=== PATIENT | female | born 1950 | race Caucasian/White ===

== ENCOUNTER 2022-12-20 11:14 | Emergency (ER) | payer MEDICARE, BC, SELFPAY ==
[2022-12-20 11:31] VITALS: BP 120/97; PULSE 96; RESP 18; TEMP 36.8; O2SAT 99; BMI 31.5
--- NOTE | 2022-12-20 11:55 | ED_ITS ---
HPI - Head Injury General Chief complaint: Head Injury Stated complaint: HEAD INJURY/FALL Time Seen by Provider: 12/20/22 11:54 Source: patient Mode of arrival: walk-in Limitations: no limitations History of Present Illness HPI Narrative: this patient's here for evaluation of hyperventilation. She said she went to see her [facility] doctor to get ultrasound testing on her dog who may be in a terminal condition. She says she's not slept for several nights taking care of her pet. She feels exhausted. While she is trying to help her dog this morning she fell forward struck the left frontal area. She has some discomfort in her neck and minor discomfort in the left brow area. Is a said she went to see her back to get lab results and she started hyperventilating and they suggested that she go to the hospital. Related Data Home Medications Medication Instructions Recorded Confirmed Lactobacillus acidophilus 10 100 mmu cells PO DAILY 12/20/22 12/20/22 billion cell capsule (Probacap) amlodipine 10 mg tablet 10 mg PO QDAY 12/20/22 12/20/22 aspirin 81 mg tablet,delayed 81 mg PO DAILY 12/20/22 12/20/22 release (Adult Aspirin Regimen) cetirizine 10 mg tablet (24Hour 10 mg PO DAILY PRN allergy symptoms 12/20/22 12/20/22 Allergy) cyanocobalamin (vitamin B-12) PO DAILY 12/20/22 folic acid 1 mg tablet 1 mg PO DAILY 12/20/22 12/20/22 furosemide 20 mg tablet 20 mg PO DAILY 12/20/22 12/20/22 gabapentin 600 mg tablet 600 mg PO BID 12/20/22 12/20/22 levothyroxine 200 mcg tablet 200 mcg PO DAILY 12/20/22 12/20/22 omeprazole 40 mg capsule,delayed 40 mg PO DAILY 12/20/22 12/20/22 release potassium chloride 20 mEq 20 meq PO DAILY 12/20/22 12/20/22 tablet,extended release(part/cryst) (Klor-Con M) red beet root 250 mg-sour burt tab PO DAILY 12/20/22 extract 0.5 mg chewable tablet tramadol 50 mg tablet 100 mg PO Q12H PRN pain 12/20/22 12/20/22 Allergies Allergy/AdvReac Type Severity Reaction Status Date / Time ciprofloxacin [From Cipro ] AdvReac Intermediate Verified 12/20/22 11:34 levofloxacin AdvReac Intermediate Verified 12/20/22 11:47 metronidazole [From Flagyl] AdvReac Intermediate Verified 12/20/22 11:34 vancomycin AdvReac Intermediate Verified 12/20/22 11:47 PFSH FOR[facility] Social History Smoking status: Current every day smoker Exam Narrative Exam Narrative: patient is awake alert good historian she's emotionally distraught because of the thought of her pet dog. he calmed down very quickly. Her vital signs are noted. On clinical examination HEENT she has a minor abrasion of the left brow with no actual hematoma. She has no tenderness to palpation of the cervical spine to palpation but she does have some discomfort when she rotates her head. She has no radiculopathy or neurological symptoms to the upper extremities or the lower limbs. She on cranial nerve examination is normal with no focal deficits. There is no nystagmus. The upper torso and trunk show no contusions abrasions or injury to the shoulder or the upper limbs. Heart sounds normal no arrhythmia or bradycardia. Heart sounds normal with no murmur. Abdomen is soft and supple. Lower extremities are benign with no new injury. Constitutional Vital Signs, click to edit/add: Last Vital Signs Temp 98.2 F 12/20/22 11:31 Pulse 96 H 12/20/22 11:31 Resp 18 12/20/22 11:31 BP 120/97 H 12/20/22 11:31 Pulse Ox 99 12/20/22 11:31 O2 Del Method Room Air 12/20/22 11:31 Course Vital Signs Vital signs: Vital Signs Temperature 98.2 F 12/20/22 11:31 Pulse Rate 96 H 12/20/22 11:31 Respiratory Rate 18 12/20/22 11:31 Blood Pressure 120/97 H 12/20/22 11:31 Pulse Oximetry 99 12/20/22 11:31 Oxygen Delivery Method Room Air 12/20/22 11:31 Temperature 98.2 F 12/20/22 11:31 Pulse Rate 96 H 12/20/22 11:31 Respiratory Rate 18 12/20/22 11:31 Blood Pressure 120/97 H 12/20/22 11:31 Pulse Oximetry 99 12/20/22 11:31 Oxygen Delivery Method Room Air 12/20/22 11:31 MDM - Head Injury MDM Narrative Medical decision making narrative: because the fall and the abrasion and neck discomfort CT imaging was done, there are chronic changes noted in both studies but there is no acute findings or evidence of an emergency medical condition. Discharge Plan Discharge Chief Complaint: Head Injury Clinical Impression: Closed head injury, Cervical sprain Patient Disposition: Home, Self-Care Time of Disposition Decision: 13:33 Prescriptions / Home Meds: No Action amlodipine 10 mg tablet 10 mg PO QDAY furosemide 20 mg tablet 20 mg PO DAILY gabapentin 600 mg tablet 600 mg PO BID levothyroxine 200 mcg tablet 200 mcg PO DAILY Patient Comments: monday through monday only omeprazole 40 mg capsule,delayed release(DR/EC) 40 mg PO DAILY potassium chloride [Klor-Con M20] 20 mEq tablet,ER particles/crystals 20 meq PO DAILY tramadol 50 mg tablet 100 mg PO Q12H PRN (Reason: pain) cetirizine [24Hour Allergy] 10 mg tablet 10 mg PO DAILY PRN (Reason: allergy symptoms) aspirin [Adult Aspirin Regimen] 81 mg tablet,delayed release (DR/EC) 81 mg PO DAILY folic acid 1 mg tablet 1 mg PO DAILY cyanocobalamin (vitamin B-12) [Vitamin B-12] PO DAILY Probacap 10 billion cell capsule 100 mmu cells PO DAILY red beet root-sour burt ext 250-0.5 mg tablet,chewable PO DAILY Patient Comments: beet chews 1-2 a day Additional Instructions: placed to the area/may have Tylenol,, follow-up with primary care doctor or return here for any change in symptoms Stand Alone Forms: Portal Instructions Referrals: MONIKA LEHMAN [Primary Care Provider] - 1 week
--- NOTE | 2022-12-20 11:55 | CT_ITS ---
[address] [address] Patient Name: DIANELYS WOMACK MRN: [id number] date: 1950 Sex: F Assigned Patient Location: ER Current Patient Location: ER Accession/Order Number: [id number] Exam Date: 12/20/2022 12:38 Report Date: 12/20/2022 13:18 At the request of: MARIA INES ESCALANTE Procedure: CT head/brain wo con CT cervical spine CLINICAL: Fall. Patient hit head without loss of consciousness. Abrasions to left eyebrow. TECHNIQUE: Contiguous transaxial images obtained from skullbase through cervical spine without administration of intravenous contrast. Coronal and sagittal reformations were obtained. Dose reduction: mA and/or kV are were adjusted by automated exposure control software based upon patients height and weight. FINDINGS: There is osteopenia of the cervical spine. There is no prevertebral soft tissue swelling or acute cervical spine fracture. There is mild to moderate degenerative disc disease of the cervical spine with small posterior disc-osteophyte complexes, most pronounced at C6-7. There is multilevel and bilateral uncovertebral joint osteoarthritis, most prominent from C3-4 and C6-7. There is also multilevel and bilateral facet joint osteoarthritis, most pronounced at C4-5 on the right. Uncovertebral and facet joint osteoarthritis contribute to neural foraminal narrowing. There is thoracic aortic and carotid artery atherosclerosis. CT/CT head/brain wo con IMPRESSION: 1. No acute cervical spine fracture. 2. Mild to moderate degenerative disc disease of the cervical spine with small posterior disc ossify complexes that are most pronounced at C6-7. There is associated uncovertebral and facet joint osteoarthritis that contribute to neural foraminal narrowing. 3. Bilateral carotid artery atherosclerosis. CT head without contrast CLINICAL: Fall. Patient hit head without loss of consciousness. Abrasions to left eyebrow. TECHNIQUE: Contiguous transaxial images were obtained from skull base to vertex without administration of intravenous contrast. Dose reduction: mA and/or kV are were adjusted by automated exposure control software based upon patients height and weight. FINDINGS: Comparison made to CT head dated 12/29/2020. There is no focal scalp soft tissue swelling or acute calvarial fracture. The visualized globes and orbits are grossly normal. Visualized paranasal sinuses are clear. Bilateral mastoid air cells are clear. The ventricles and sulci are prominent bilaterally. There is periventricular and deep subcortical white matter low-attenuation consistent with small vessel ischemic disease. There is an old left thalamic lacunar infarct. There are old bilateral basal ganglia lacunar infarcts. There is no intraparenchymal hemorrhage, extraaxial fluid collection, mass lesion, or acute large territory ischemia by noncontrast CT. There is intracranial atherosclerosis. IMPRESSION: 1. No acute intracranial hemorrhage or acute large territory ischemia by noncontrast CT. 2. Cerebral atrophy and chronic small vessel ischemic disease with old lacunar infarcts as described. 3. Intracranial atherosclerosis. If the patient has a focal neurologic deficit or there is clinical suspicion for acute cerebrovascular accident, brain MRI would be recommended for further evaluation. Electronically authenticated by: JESSIKA WATSON Date: 12/20/2022 13:18
--- NOTE | 2022-12-20 11:55 | CT_ITS ---
[address] [address] Patient Name: DIANELYS WOMACK MRN: [id number] date: 1950 Sex: F Assigned Patient Location: ER Current Patient Location: ER Accession/Order Number: [id number] Exam Date: 12/20/2022 12:38 Report Date: 12/20/2022 13:18 At the request of: MARIA INES ESCALANTE Procedure: CT cervical spine wo con CT cervical spine CLINICAL: Fall. Patient hit head without loss of consciousness. Abrasions to left eyebrow. TECHNIQUE: Contiguous transaxial images obtained from skullbase through cervical spine without administration of intravenous contrast. Coronal and sagittal reformations were obtained. Dose reduction: mA and/or kV are were adjusted by automated exposure control software based upon patients height and weight. FINDINGS: There is osteopenia of the cervical spine. There is no prevertebral soft tissue swelling or acute cervical spine fracture. There is mild to moderate degenerative disc disease of the cervical spine with small posterior disc-osteophyte complexes, most pronounced at C6-7. There is multilevel and bilateral uncovertebral joint osteoarthritis, most prominent from C3-4 and C6-7. There is also multilevel and bilateral facet joint osteoarthritis, most pronounced at C4-5 on the right. Uncovertebral and facet joint osteoarthritis contribute to neural foraminal narrowing. There is thoracic aortic and carotid artery atherosclerosis. CT/CT cervical spine wo con IMPRESSION: 1. No acute cervical spine fracture. 2. Mild to moderate degenerative disc disease of the cervical spine with small posterior disc ossify complexes that are most pronounced at C6-7. There is associated uncovertebral and facet joint osteoarthritis that contribute to neural foraminal narrowing. 3. Bilateral carotid artery atherosclerosis. CT head without contrast CLINICAL: Fall. Patient hit head without loss of consciousness. Abrasions to left eyebrow. TECHNIQUE: Contiguous transaxial images were obtained from skull base to vertex without administration of intravenous contrast. Dose reduction: mA and/or kV are were adjusted by automated exposure control software based upon patients height and weight. FINDINGS: Comparison made to CT head dated 12/29/2020. There is no focal scalp soft tissue swelling or acute calvarial fracture. The visualized globes and orbits are grossly normal. Visualized paranasal sinuses are clear. Bilateral mastoid air cells are clear. The ventricles and sulci are prominent bilaterally. There is periventricular and deep subcortical white matter low-attenuation consistent with small vessel ischemic disease. There is an old left thalamic lacunar infarct. There are old bilateral basal ganglia lacunar infarcts. There is no intraparenchymal hemorrhage, extraaxial fluid collection, mass lesion, or acute large territory ischemia by noncontrast CT. There is intracranial atherosclerosis. IMPRESSION: 1. No acute intracranial hemorrhage or acute large territory ischemia by noncontrast CT. 2. Cerebral atrophy and chronic small vessel ischemic disease with old lacunar infarcts as described. 3. Intracranial atherosclerosis. If the patient has a focal neurologic deficit or there is clinical suspicion for acute cerebrovascular accident, brain MRI would be recommended for further evaluation. Electronically authenticated by: JESSIKA WATSON Date: 12/20/2022 13:18
== END 2022-12-20 13:38 | disposition home or self-care (01) ==
PROVIDERS: Emergency Provider Emergency Medicine Emergency Medical Services; PCP Family Medicine
DX: S09.8XXA Other specified injuries of head, initial encounter (principal); S13.9XXA Sprain of joints and ligaments of unspecified parts of neck, initial encounter; W19.XXXA Unspecified fall, initial encounter; Z79.82 Long term (current) use of aspirin; Z79.899 Other long term (current) drug therapy; Z79.890 Hormone replacement therapy; F17.210 Nicotine dependence, cigarettes, uncomplicated
CPT/HCPCS: 70450; 72125; 99284

== ENCOUNTER 2023-01-31 11:16 | Outpatient (OUT) | payer MEDICARE, BC, SELFPAY ==
--- NOTE | 2023-01-31 11:45 | XR_ITS ---
The [address] [address] Patient Name: DIANELYS WOMACK MRN: [id number] date: 1950 Sex: F Assigned Patient Location: [facility] Current Patient Location: Accession/Order Number: [id number] Exam Date: 01/31/2023 11:58 Report Date: 02/01/2023 08:07 At the request of: AMAN ANDRES Procedure: XR lumbar spine 6V w bending PROCEDURE: XR lumbar spine 6V w bending DATE: 01/31/2023 10:58 AM [employer] COMPARISONS: CT abdomen and pelvis 03/23/2022 CLINICAL INDICATION: 72 years Female Lumbar Pain M54.5 FINDINGS: There is diffuse bone demineralization. There is no evidence of fractures. There is multilevel intervertebral disc space degenerative changes most prominent L2-L3. There is moderate mid and lower lumbar spine facet degenerative changes. There is no evidence of subluxation. Specifically, there is no evidence of dynamic subluxation noted on lateral flexion and extension views. As noted on previous CT, there is evidence of fusiform abdominal aortic aneurysm. Please see previous CT from 03/23/2022. XR/XR lumbar spine 6V w bending IMPRESSION: 1. Bone demineralization 2. Mild to moderate degenerative spondylosis stable from 03/23/2022 3. No evidence of dynamic subluxation on these images 4. Fusiform abdominal aortic aneurysm. Electronically authenticated by: ZOIE GOMEZ Date: 02/01/2023 08:07
== END 2023-01-31 11:17 | disposition home or self-care (01) ==
LOC: RAD 11:20
PROVIDERS: PCP Family Medicine; Visit Provider Psychiatry & Neurology Neurology
DX: M54.50 Low back pain, unspecified (principal)
CPT/HCPCS: 72114

== ENCOUNTER 2023-01-31 11:24 | Outpatient (OUT) | payer MEDICARE, BC, SELFPAY ==
[2023-01-31 12:29] LABS: Anion Gap 9.8; BUN Creatinine Ratio 19.8; Calcium 9.3 mg/dL (8.5-10.1); Carbon Dioxide 31.3 mmol/L (21.0-32.0); Chloride 103 mmol/L (98-107); Estimated GFR (African America >60 (>=60); Estimated GFR (Non-African Ame 54 (>=60); Glucose 94 mg/dL (74-106); Potassium 3.1 mmol/L (3.5-5.1); Sodium 141 mmol/L (136-145)
== END 2023-01-31 11:25 | disposition home or self-care (01) ==
LOC: LAB 11:25
PROVIDERS: PCP Family Medicine; Visit Provider Internal Medicine
DX: I10 Essential (primary) hypertension (principal)
CPT/HCPCS: 36415; 80048

== ENCOUNTER 2023-03-15 08:46 | Outpatient (OUT) | payer MEDICARE, BC, SELFPAY ==
--- OUTSIDE RECORDS SUMMARY | 2023-03-15 08:50 | XMS_ITS | CCD ---
Author Name Unknown Address [address] [place] [address] Organization [facility] Care Team Providers Care Senior Loss Control Specialist Name Role Phone Monika Lehman Unavailable Unavailable Unavailable MD Monika Lehman Primary Care Provider [phone] MD Nick Acosta Attending Provider [phone] MD Daniel Ma Attending Provider Nick Acosta Unavailable Monika Lehman Primary Care Provider Aman Quiroz MD Unavailable Monika Lehman Primary Care Provider Aman Quiroz MD Unavailable MD Monika Lehman Primary Care Provider MD Chucho Saldaña Emergency Provider Monika Lehman Primary Care Unavailable Chucho Saldaña Attending Unavailable Chucho Saldaña Admitting Unavailable Monika Lehman Primary Care Unavailable Daniel Ma Attending Unavailable Daniel Ma Admitting Unavailable Nick Acosta Attending Unavailable Nick Acosta Admitting Unavailable Monika Lehman Primary Care Unavailable Monika Lehman Primary Care Provider Aman Quiroz MD Unavailable DR MONIKA LHEMAN Primary Care Unavailable FOREST, DR TESS Valente Attending Unavailable FOREST, DR TESS Valente Admitting Unavailable MARANDA OSEGUERA Unavailable FALLON, DR FRANK Primary Care Unavailable HEMMELSISA, DR RONDA Washington Attending Unavailable HEMMER, DR RONDA Washington Admitting Unavailable ZIEBER, DR NATALIE Meza Consulting Unavailable HEMMER, DR RONDA Washington Consulting Unavailable FALLON, DR FRANK Primary Care Unavailable FALLON, DR FRANK Consulting Unavailable FALLON, DR FRANK Attending Unavailable FALLON, DR FRANK Admitting Unavailable FALLON, DR FRANK Primary Care Unavailable BURT, CARMEN Attending Unavailable BURT, CARMEN Admitting Unavailable BURT, CARMEN Consulting Unavailable FILIPPONE, DELISA Consulting Unavailable Piotr, Bubba Romero Attending Wanda Saldaña, Ms. Seema Romero Referring Unavai lable Fallon[facility] Unavaila ble Charmaine, Daniel Attending Unavailable Charmaine, Daniel Referring Unavailable [place], [facility] Unavaila ble Charmaine, Daniel Attending Unavailable Charmaine, Daniel Referring Unavailable [place], [facility] Unavaila ble Piotr, Ms. Seema Romero Attending Wanda Saldaña, Ms. Seema Romero Referring Unavai lable Fallon, [facility] Unavaila ble [place] , [facility] GORGUN, I FEI Attending Unavailable [facility] Unavailable TAZ TEJEDA Referring Unavailable NIKO NIETO Attending Unavailab le [facility] Care Unavailable [place] [facility] Referring Un[facility] Unavailable GORGUN, I FEI Admitting Unavailable GORGUN, I FEI Attending Unavailable TAZ TEJEDA Referring Unavailable [facility] Unavailable TAZ TEJEDA Referring Unavailable PRECIOUS ROGERS Attending Unavailable [facility] Unavailable MELODY ROSADO Attending Unavailable [facility] Unavailable TAZ TEJEDA Referring Unavailable Debbi Casanova Attending [facility] Unavailable MELODY ROSADO Attending Unavailable FALLON, RUGEN MABALAY Primary Care Unavailable GORGUN, I FEI Referring Unavailable GORGUN, I FEI Referring Unavailable FALLON, RUGEN TOMASAY Primary Care Unavailable GORGUN, I FEI Referring Unavailable FALLON, RUGEN TOMASAY Primary Care Unavailable GORGUN, I FEI Referring Unavailable FALLON, RUGEN JASONALAY Primary Care Unavailable Monika Lehman MD Primary Care Provider Monika Lehman MD Primary Care Provider ELINOR RAMAN Attending Unavailable FALLON, JUANEN MARIN Primary Care Unavailable DANIEL MA Attending Unavailable FALLON, JUANEN TOMASAY Primary Care Unavailable ALEAH MEYER Attending Unavailable AMAN QUIROZ Referring Unavailable ALEAH MEYER Attending Unavailable AMAN QUIROZ Referring Unavailable ALEAH MEYER Attending Unavailable AMAN QUIROZ Referring Unavailable AAMN QUIROZ Attending Unavailable MONIKA LEHMAN Attending Unavailable FALLONMONIKA Mitchell M Attending Unavailable ALEAH MEYER Attending Unavailable AMAN QUIROZ Referring Unavailable Allergies Allergy Classification Reported Allergen(s) Allergy Type Date of Onset Reaction(s) Facility (20 sources) Ciprofloxacin; Translations: [ciprofloxacin] Drug Allergy 1 Unknown, Other [facility] (20 sources) metroNIDAZOLE; Translations: [Flagyl] Drug Allergy 7 Unknown, Other [facility] (11 sources) Penicillins; Translations: [Penicillins] Allergy to drug (finding) [address] [facility] [place] [facility] (4 sources) metroNIDAZOLE; Translations: [metronidazole] Drug Allergy 7 Numbness [facility] (20 sources) Vancomycin; Translations: [vancomycin] Drug Allergy 2 [facility] (1 source) Ciprofloxacin Drug Allergy 2 [facility] Repository (20 sources) levoFLOXacin; Translations: [LEVOFLOXACIN] Drug Allergy [address] [facility] (20 sources) Penicillins Drug Allergy 6 Unknown, Other: See Comments, Other [facility] (20 sources) Seasonal allergy; Translations: [SEASONAL ALLERGIES] Allergy to substance [address] [facility] (20 sources) Soy protein; Translations: [soy] Drug Allergy [address] [facility] (1 source) Amoxicillin / Clavulanate Drug Allergy 6 [facility] Rep[facility] (1 source) Ciprofloxacin Drug Allergy 7 [facility] (1 source) levoFLOXacin Drug Allergy 6 [facility] (1 source) metroNIDAZOLE Drug Allergy 7 [facility] (1 source) Misc-Food; Translations: [Misc-Food] Food allergy (disorder) 6 [facility] Rep[facility] Medications Current Medications Medication Drug Class(es) Dates Sig (Normalized) Sig (Original) ALPRAZolam 1 mg oral tablet (20 sources) Benzodiazepine Start: 11-17-2021 take 1 mg by mouth once daily Alprazolam Active 1 MG PO Daily November 17, 2021 12:00am Start: 07-21-2021 take 1 tablet by dickson th twice daily ALPRAZolam 1 MG Oral Tablet TAKE 1 TABLET BY MOUTH TWICE A DAY FOR 30 DAYS Quantity: 60 Refills: 0 Ordered: 21-Jul-2021 DO Start : 21-Jul-2021 Complete take 1 tablet by dickson th once daily ALPRAZolam XR (Xanax XR) 1 mg 24 hr tablet Take 1 tablet (1 mg) by mouth once daily. 0 Active take 1 tablet by dickson th twice daily ALPRAZolam ER 1 MG Oral Tablet Extended Release 24 Hour one tablet BID Quantity: 0 Refills: 0 Ordered: 20-Jul-2021 DO Active Comment on above: Take 1 mg by mouth a s needed. aspirin 81 mg delayed release oral tablet (2 sources) Platelet Aggregation Inhibitor, Nonsteroidal Anti-inflammatory Drug take 1 tablet by mouth once daily aspirin 81 mg EC tablet Take 1 tablet (81 mg) by mouth once daily. 0 Active b complex vitamins (Vitamins B Complex) capsule (2 sources) take 1 capsule by mouth once daily b complex vitamins (Vitamins B Complex) capsule Take 1 capsule by mouth once daily. 0 Active bisacodyl 5 mg delayed release oral tablet (4 sources) Stimulant Laxative Start: 02-24-19 23 End: 02-25-19 23 Bisacodyl (DULCOLAX) 5 mg tab Use as directed for Miralax / Gatorade Bowel Prep Kit 4 tablet 0 02/24/2022 02/25/2022 Active Comment on above: Use as directed for Miralax / Gatorade Bowel Prep Kit Centrum Silver 50+Women - (2 sources) Centrum Silver 50+Women - as directed Orally Active cetirizine hydrochloride 10 mg oral tablet (20 sources) Histamine-1 Receptor Antagonist take 1 tablet by mouth every twenty-four hours as needed cetirizine (ZyrTEC) 10 mg tablet Take 1 tablet (10 mg) by mouth once daily as needed. 0 Active Comment on above: Take by mouth as nee ded. chlorthalidone 25 mg oral tablet (2 sources) Thiazide-like Diuretic take 1 tablet by mouth every twelve hours Chlorthalidone 25 MG 1 tablet in the morning with food Orally bid Active docusate sodium 100 mg oral tablet (11 sources) take 1 tablet by mouth twice daily as needed docusate sodium (Colace) 100 mg tablet Take 1 tablet (100 mg) by mouth 2 times a day as needed. 0 Active take 1 tablet by mouth once antonio y Docusate Sodium 100 MG Oral Tablet Take 1 tablet daily Quantity: 0 Refills: 0 Ordered: 03-May-2021 DO Active furosemide 20 mg oral tablet (8 sources) Loop Diuretic Start: 11-17-2021 take 20 mg by mouth once daily Furosemide Active 20 MG PO Daily November 17, 2021 12:00am Gatorade Sports Drink (4 sources) Start: 02-24-2022 End: 02-25-2022 Gatorade Sports Drink Use as directed for Miralax / Gatorade Bowel Prep Kit 0 02/24/2022 02/25/2022 Active Comment on above: Use as directed for Miralax / Gatorade Bowel Prep Kit omeprazole 40 mg delayed release oral capsule (20 sources) Proton Pump Inhibitor Start: 11-17-2021 take 40 mg by mouth once daily Omeprazole Active 40 MG PO Daily November 17, 2021 12:00am take 40 mg by mouth once daily O MEPRAZOLE ORAL Take 40 mg by mouth once daily. 0 Active Comment on above: Take 40 mg by mouth once daily. polyethylene glycol 3350 99200 mg powder for oral solution (4 sources) Osmotic Laxative Start: 3 End: polyethylene glycol 3350 (MIRALAX, GLYCOLAX) 17 gram/dose powder Use as directed for Miralax / Gatorade Bowel Prep Kit 238 g 0 02/24/2022 02/25/2022 Active Comment on above: Use as directed for Miralax / Gatorade Bowel Prep Kit microencapsulated potassium chloride 20 meq extended release oral tablet (20 sources) Start: 2 take 20 mEq by mouth once daily Potassium Chloride Active 20 MEQ PO Daily November 17, 2021 12:00am Start: 10-07-2021 KLOR-CON M20 2 0 mEq tablet Take 20 mEq by mouth twice daily. 0 10/07/2021 Active take 1 tablet by dickson th once daily potassium chloride CR 20 mEq ER tablet Take 1 tablet (20 mEq) by mouth once daily. Do not crush or chew. 0 Active take 1 tablet by dickson th once daily Potassium Chloride Rose ER 20 MEQ Oral Tablet Extended Release TAKE 1 TABLET DAILY. Quantity: 0 Refills: 0 Ordered: 03-May-2021 DO Active Comment on above: Take 20 mEq by mouth twice daily. Completed/Discontinued Medications Medication Drug Class(es) Dates Sig (Normalized) Sig (Original) amLODIPine 5 mg oral tablet (20 sources) Dihydropyridine Calcium Channel Barry Start: 05-03-2021 take 1 tablet by mouth once daily amLODIPine Besylate 10 MG Oral Tablet TAKE 1 TABLET DAILY. Quantity: 90 Refills: 3 Ordered: 20-Sep-2022 Daniel Ma MD Start : 03-May-2021 Active new start Start: 05-03-2021 take 1 tablet by dickson th once daily amLODIPine (NORVASC) 5 mg tablet Take 5 mg by mouth once daily. 0 10/27/2021 Active amLODIPine Besyl ate Active Comment on above: Take 5 mg by mouth o nce daily. Astelin 137 MCG/SPRAY (2 sources) take 1 puff(s) nasal route twice daily Astelin 137 MCG/SPRAY 1 puff in each nostril Nasally Twice a day Not-Taking bifidobacterium animalis [id number] unt / lactobacillus acidophilus [id number] unt oral capsule (3 sources) Probiotic CAPS T TESFAYE 1 CAPSULE Daily Quantity: 0 Refills: 0 Ordered: 03-May-2021 DO Active carvedilol 6.25 mg oral tablet (7 sources) alpha-Adrenergic Barry, beta-Adrenergic Barry take 1 tablet by mouth twice daily at mealtime Carvedilol 6.25 MG Oral Tablet TAKE 1 TABLET TWICE DAILY WITH MEALS. Quantity: 0 Refills: 0 Ordered: 03-May-2021 DO Active Carvedilol Activ e cholecalciferol 0.025 mg oral tablet (1 source) Vitamin D take 1 tablet by mouth every twenty-four hours Vitamin D3 25 MCG (1000 UT) 1 tablet Orally Once a day Not-Taking dicyclomine hydrochloride 20 mg oral tablet (3 sources) Anticholinergic Start: 11-24-19 take 1 tablet by mouth four times daily Dicyclomine HCl - 20 MG Oral Tablet TAKE 1 TABLET BY MOUTH 4 TIMES A DAY Quantity: 60 Refills: 0 Ordered: 23-Nov-2021 DO Start : 23-Nov-2021 Complete Start: 11-17-2021 take 20 mg by mouth four times daily Dicyclomine Active 20 MG PO Four times daily November 17, 2021 12:00am 24 hr dilTIAZem hydrochloride 120 mg extended release oral capsule (2 sources) Calcium Channel Barry take 1 capsule by mouth once daily Tiadylt ER 120 MG TAKE 1 CAPSULE BY MOUTH EVERY DAY Oral for 30 Not-Taking enteric contrast (will be provided with radiology test) (3 sources) Start: 3 End: 3 enteric contrast (will be provided with radiology test) Indications: Adverse effect of treatment, initial encounter For CT ENTEROGRAPHY W IVCON order Administer, As Directed One Time Only, via Oral, Rectal, both Oral and Rectal, Enteric Tube, Stoma or Indwelling Catheter, Enteric Contrast as designated per enteric contrast guidelines. 1 Each 0 04/19/2022 04/20/2022 Start: 04-19-2022 End: 04-20-2022 enteric contrast (will be pr ovided with radiology test) Indications: Adverse effect of treatment, initial encounter For CT ENTEROGRAPHY W IVCON order Administer, As Directed One Time Only, via Oral, Rectal, both Oral and Rectal, Enteric Tube, Stoma or Indwelling Catheter, Enteric Contrast as designated per enteric contrast guidelines. 1 Each 0 04/19/2022 04/20/2022 Active Comment on above: For CT ENTEROGRAPHY W IVCON order Administer, As Directed One Time Only, via Oral, Rectal, both Oral and Rectal, Enteric Tube, Stoma or Indwelling Catheter, Enteric Contrast as designated per enteric contrast guidelines. Fluticasone Furoate 50 MCG/ACT (2 sources) take 2 puff(s) by inhalation once daily Fluticasone Furoate 50 MCG/ACT 2 puffs Inhalation Once a day Not-Taking folic acid 1 mg oral tablet (20 sources) Start: 11-09-19 folic acid 1 mg tablet once daily. 0 11/08/2021 Active take 0.5 tablet by mouth once da poncho Folic Acid 1 MG Oral Tablet take 1/2 tablet daily Quantity: 0 Refills: 0 Ordered: 03-May-2021 DO Active Comment on above: once daily. gabapentin 600 mg oral tablet (20 sources) Anti-epileptic Agent Start: 11-17-2021 gabapentin (NEURONTIN) 600 mg tablet twice daily. 0 11/17/2021 Active Start: 11-17-2021 Gabapentin Act patrizia 600 MG PO Twice daily November 17, 2021 12:00am Takes 2 at a time if going to be walking a lot. Gabapentin 100 M G as directed Orally Active take 1 capsule by [facility] every twenty-four hours Gabapentin 400 MG 1 tablet Orally Once a day for 30 Active Comment on above: twice daily. ibuprofen 800 mg oral tablet (5 sources) Nonsteroidal Anti-inflammatory Drug take 1 tablet by mouth twice daily as needed Ibuprofen 800 MG Oral Tablet TAKE 1 TABLET TWICE DAILY NEEDED. Quantity: 0 Refills: 0 Ordered: 03-May-2021 DO Active iv contrast (will be provided with radiology test) (3 sources) Start: 3 End: 3 iv contrast (will be provided with radiology test) Indications: Adverse effect of treatment, initial encounter CT Enterography W Inject, intravenously, once for 1 dose.No IV access, insert saline lock prior to the beginning of sedation, infusion, injection of imaging exam. Discontinue saline lock post exam. If Pt. has a central line or IVAD, may access for administration according to line specific nursing protocol. Once exam is complete flush line and de-access according to line specific nursing protocol in the CT contrast administration guidelines link. 1 Each 0 04/19/2022 04/20/2022 Start: 04-19-2022 End: 04-20-2022 iv contrast (will be provide d with radiology test) Indications: Adverse effect of treatment, initial encounter CT Enterography W Inject, intravenously, once for 1 dose.No IV access, insert saline lock prior to the beginning of sedation, infusion, injection of imaging exam. Discontinue saline lock post exam. If Pt. has a central line or IVAD, may access for administration according to line specific nursing protocol. Once exam is complete flush line and de-access according to line specific nursing protocol in the CT contrast administration guidelines link. 1 Each 0 04/19/2022 04/20/2022 Active Comment on above: CT Enterography W In ject, intravenously, once for 1 dose.No IV access, insert saline lock prior to the beginning of sedation, infusion, injection of imaging exam. Discontinue saline lock post exam. If Pt. has a central line or IVAD, may access for administration according to line specific nursing protocol. Once exam is complete flush line and de-access according to line specific nursing protocol in the CT contrast administration guidelines link. Lactobacillus acidophilus (20 sources) Lactobacillus acidophilus (PROBIOTIC ORAL) Take by mouth once daily. 0 Active Comment on above: Take by mouth once d aily. levothyroxine sodium 0.2 mg oral tablet (20 sources) l-Thyroxine Start: 11-17-2021 levothyroxine (SYNTHROID) 200 mcg tablet once daily. 0 11/17/2021 Active Levothyroxine So dium 200 MCG TAKE 1 TABLET BY MOUTH EVERY MORNING ON AN EMPTY STOMACH BUT ONLY 1/2 TABLET ON MONDAY & MONDAY Oral for 90 Active Comment on above: once daily. Magnesium (2 sources) Magnesium 400 MG as directed Orally Not-Taking montelukast 10 mg oral tablet (2 sources) Leukotriene Receptor Antagonist take 1 tablet by mouth every twenty-four hours Montelukast Sodium 10 MG 1 tablet Orally Once a day Not-Taking neomycin sulfate 500 mg oral tablet (20 sources) Aminoglycoside Antibacterial Start: 3 neomycin 500 mg tablet Take 2 tablets by mouth at 9pm and take 2 tablets by mouth at 11pm the night before surgery. 4 tablet 0 02/24/2022 Active Comment on above: Take 2 tablets by mo ut at 9pm and take 2 tablets by mouth at 11pm the night before surgery. ondansetron 4 mg oral tablet (20 sources) Serotonin-3 Receptor Antagonist Start: 2 ondansetron (ZOFRAN) 4 mg tablet as needed. 0 11/17/2021 Active Ondansetron HCl - 4 MG Oral Tablet PRN Quantity: 0 Refills: 0 Ordered: 22-Mar-2022 DO Active Comment on above: as needed. predniSONE 10 mg oral tablet (1 source) Start: 08-18-19 predniSONE 10 MG Oral Tablet TAKE 4 TABS DAILY X4 DAYS, THEN 3 TABS X4 DAYS, 2 TABS X4 DAYS, 1 TAB X4 DAYS Quantity: 40 Refills: 0 Ordered: 17-Aug-2021 DO Start : 17-Aug-2021 Complete rifAXIMin 550 mg oral tablet (2 sources) Rifamycin Antibacterial take 1 tablet by mouth once daily Xifaxan 550 MG Oral Tablet one tablet daily Quantity: 0 Refills: 0 Ordered: 20-Jul-2021 DO Active tiZANidine 2 mg oral tablet (2 sources) Central alpha-2 Adrenergic Agonist take 1 tablet by mouth at bedtime as needed tiZANidine HCl 2 MG TAKE 1 TABLET BY MOUTH AT BEDTIME NEEDED Oral for 30 Not-Taking traMADol hydrochloride 50 mg oral tablet (20 sources) Opioid Agonist Start: 12-24-19 traMADol (ULTRAM) 50 mg tablet as needed. 0 12/23/2021 Active Start: 11-17-2021 take 50 mg by mouth once daily Tramadol Active 50 MG PO Daily November 17, 2021 12:00am take 1 tablet by dickson th twice daily traMADol (Ultram) 50 mg tablet Take 1 tablet (50 mg) by mouth 2 times a day. 0 Active take 1 tablet by dickson th four times daily as needed for pain traMADol HCl - 50 MG Oral Tablet TAKE 1 TABLET 4 TIMES DAILY NEEDED FOR PAIN. Quantity: 0 Refills: 0 Ordered: 20-Jul-2021 DO Active Comment on above: as needed. Vitamin B Complex (20 sources) vitamin B comple x (B COMPLEX ORAL) Take by mouth. 0 Active Comment on above: Take by mouth. Vitamin B Complex CAPS (5 sources) Vitamin B Comple x CAPS one capsule daily Quantity: 0 Refills: 0 Ordered: 20-Jul-2021 DO Active Vitamin B Complex Oral Capsule (1 source) take 1 capsule by mo uth once daily Vitamin B Complex Oral Capsule one capsule daily Quantity: 0 Refills: 0 Ordered: 20-Jul-2021 DO Active Vitamin D3 25 MCG (1000 UT) (1 source) take 1 tablet by dickson th once daily Vitamin D3 25 MCG (1000 UT) 1 tablet Orally Once a day Not-Taking Zinc (2 sources) take 1 tablet by dickson th once daily Zinc 30 MG 1 tablet Orally Once a day Not-Taking Problems Active Problems Problem Classification Problem Date Documented Da te Episodic/Chronic Acute cerebrovascular disease (20 sources) Cerebrovascular accident; Translations: [Cerebral infarction, unspecified] Onset: 2 Chronic Anxiety disorders (20 sources) Mixed anxiety and depressive disorder; Translations: [Anxiety disorder, unspecified] Onset: 3 02-24-2022 Chronic Aortic; peripheral; and visceral artery aneurysms (20 sources) Abdominal aortic aneurysm; Translations: [Abdominal aneurysm without mention of rupture] Onset: 1 Resolved: 2 Chronic Cardiac dysrhythmias (14 sources) Ventricular premature beats; Translations: [Other premature beats] Onset: 3 11-21-2022 Chronic Cardiac dysrhythmias (9 sources) Sinus bradycardia; Translations: [Other specified cardiac dysrhythmias] Episodic Chronic kidney disease (20 sources) Chronic kidney disease stage 3; Translations: [Chronic kidney disease, Stage III (moderate)] Onset: 2 Resolved: 3 Chronic Chronic kidney disease (1 source) Chronic kidney disease; Translations: [N18.30 - Chronic kidney disease, stage 3 unspecified] Onset: 2 Conditions associated with dizziness or vertigo (12 sources) Dizziness; Translations: [Dizziness and giddiness] Onset: 2 11-20-2022 Episodic Esophageal disorders (20 sources) Gastroesophageal reflux disease without esophagitis; Translations: [Gastro-esophageal reflux disease without esophagitis] Onset: 2 Chronic Essential hypertension (20 sources) Essential hypertension; Translations: [Unspecified essential hypertension] Onset: 2 Chronic Fluid and electrolyte disorders (13 sources) Hypokalemia; Translations: [Hypopotassemia] Onset: 2 11-17-2021 Episodic Hepatitis (2 sources) Nonalcoholic steatohepatitis; Translations: [Nonalcoholic steatohepatitis (BISWAS)] Chronic Mood disorders (1 source) Mood disorders; Translations: [Anxiety and depression] Onset: 3 Nausea and vomiting (1 source) Nausea; Translations: [Nausea] Episodic Other aftercare (1 source) Follow-up status; Translations: [Encounter for follow-up examination after completed treatment for conditions other than malignant neoplasm] Episodic Other and ill-defined heart disease (1 source) Heart disease; Translations: [Other ill-defined heart diseases] 11-21-2022 Chronic Other and unspecified benign neoplasm (1 source) Benign neoplasm of rectum; Translations: [Benign neoplasm of rectum] Episodic Other and unspecified benign neoplasm (2 sources) Adenomatous polyp of rectum; Translations: [Benign neoplasm of rectum] Episodic Other gastrointestinal disorders (4 sources) Irritable bowel syndrome with diarrhea; Translations: [IRRITABLE BOWEL SYND W/DIARRHEA] Onset: 2 Chronic Other gastrointestinal disorders (4 sources) Diarrhea; Translations: [Diarrhea, unspecified] Episodic Other nutritional; endocrine; and metabolic disorders (11 sources) Obesity; Translations: [Obesity, unspecified] Onset: 3 11-20-2022 Chronic Other nutritional; endocrine; and metabolic disorders (5 sources) Overweight in adulthood with body mass index of 25 or more but less than 30; Translations: [Overweight] Onset: 3 11-20-2022 Episodic Residual codes; unclassified (1 source) Swelling - edema - symptom; Translations: [Edema] Episodic Residual codes; unclassified (10 sources) Edema; Translations: [Edema] Onset: 3 11-20-2022 Episodic Screening and history of mental health and substance abuse codes (20 sources) Ex-smoker; Translations: [Personal history of tobacco use] Onset: 3 02-24-2022 Episodic Spondylosis; intervertebral disc disorders; other back problems (5 sources) Spondylosis without myelopathy or radiculopathy, lumbar region; Translations: [Other intervertebral disc degeneration, lumbar region] Onset: 2 Chronic Thyroid disorders (20 sources) Hypothyroidism; Translations: [Hypothyroidism, unspecified] Onset: 2 12-06-2021 Chronic Unclassified (1 source) I71.4 - Abdominal aortic aneurysm, without rupture; Translations: [I71.4 - Abdominal aortic aneurysm, without rupture] Onset: 2 Unclassified (1 source) LOW BACK PAIN, UNSPECIFIED; Translations: [LOW BACK PAIN, UNSPECIFIED] Onset: 2 Unclassified (1 source) Thoracoabdominal aortic aneurysm (TAAA), unspecified part, unspecified whether ruptured; Translations: [Thoracoabdominal aortic aneurysm (TAAA), unspecified part, unspecified whether ruptured] Onset: 3 Unclassified (1 source) Pararenal abdominal aortic aneurysm, 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); Translations: [Pararenal abdominal aortic aneurysm, 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)] Onset: 3 Past or Other Problems Problem Classification Problem Date Documented Da te Episodic/Chronic Abdominal pain (7 sources) Abdominal pain; Translations: [Unspecified abdominal pain] Onset: 12-06-2021 Episodic Anal and rectal conditions (1 source) Other specified diseases of anus and rectum; Translations: [Rectal mass] Onset: 03-03-2022 Episodic Complications of surgical procedures or medical care (20 sources) Difficult intubation; Translations: [Failed or difficult intubation, initial encounter] Onset: 02-24-2022 02-24-2022 Episodic Neoplasms of unspecified nature or uncertain behavior (3 sources) Neoplasm of uncertain behavior of colon; Translations: [Neoplasm of uncertain behavior of colon] Onset: 02-24-2022 Episodic Other aftercare (1 source) Other fpc (current) drug therapy; Translations: [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 THERAPY] Onset: 10-21-2021 Episodic Other aftercare (1 source) Encounter for follow-up examination after completed treatment for conditions other than malignant neoplasm; Translations: [Follow-up exam] Onset: 04-20-2022 Episodic Other connective tissue disease (4 sources) Pain in left arm; Translations: [PAIN IN LEFT ARM] Onset: 09-13-2021 Episodic Other gastrointestinal disorders (1 source) Diarrhea, unspecified; Translations: [Diarrhea, unspecified type] Onset: 12-06-2021 Episodic Residual codes; unclassified (20 sources) History of anesthesia problem; Translations: [Personal history of other specified conditions] Onset: 12-06-2021 Episodic Residual codes; unclassified (20 sources) History of difficult intubation; Translations: [Other specified personal risk factors, not elsewhere classified] Onset: 02-24-2022 02-24-2022 Episodic Residual codes; unclassified (1 source) Acquired absence of other specified parts of digestive tract; Translations: [ACQ ABSENCE OTH PART DIGESTV TRACT] Onset: 10-21-2021 Episodic Residual codes; unclassified (1 source) Acquired absence of both cervix and uterus; Translations: [ACQUIRED ABSENCE BOTH CERVIX AND UTERUS] Onset: 10-21-2021 Episodic Residual codes; unclassified (1 source) Personal history of other specified conditions; Translations: [History of anesthesia complications] Onset: 12-06-2021 Episodic Residual codes; unclassified (1 source) Other specified personal risk factors, not elsewhere classified; Translations: [History of difficult intubation] Onset: 02-24-2022 Episodic Unclassified (2 sources) Onset: 11-21-2022 11-21-2022 Unclassified (1 source) Pararenal abdominal aortic aneurysm, 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 Author Type: Anesthesiologist Type: Anesthesia Postprocedure Evaluation Filed: 10/25/2022 7:22 PM Note Text: POST ANESTHESIA EVALUATION NOTE : 1950 Procedure Summary Date: 10/25/22 Room / Location: Gastroenterology Anesthesia Start: 1030 Anesthesia Stop: 1115 Procedure: COLONOSCOPY DIAGNOSTIC Diagnosis: Abdominal pain, unspecified abdominal location Diarrhea, unspecified type (High risk colon cancer surveillance: Personal history of colonic polyps) Scheduled Providers: Kenton Kapadia MD Responsible Provider: Precious Rogers MD Anesthesia Type: general ASA Status: 3 Anesthesia Type: general Airway Type: anesthesia mask Last Vitals Vitals Value Taken Time BP 131/82 10/25/22 1130 Temp 36.7 ?C (98.1 ?F) 10/25/22 1115 Pulse 59 10/25/22 1137 Resp 18 10/25/22 1115 SpO2 98 % 10/25/22 1137 Vitals shown include unvalidated device data. Post Anesthesia Patient Status Patient Evaluation: PACU. PACU/ICU Patient Condition: stable. Anticipated Disposition: phase 2 then home. Neurological Status: aware and responsive. Pulmonary Status: breathing comfortably on room air Airway Control: returned to baseline unsupported. Cardiovascular Status: stable. Pain Management: clinically adequate - multimodal analgesia pain management approach Postoperative Hydration: acceptable. Intraoperative Events: no significant anesthesia events Post Operative Nausea/Vomiting Status: no significant post operative nausea or vomiting Recommendation: further care per PACU/ICU/floor team. Anesthesia Observations No notable events were associated with this procedure. Documented by Iliana Montoya APRN.HUMANITIES DEPARTMENT CHAIR 10/25/2022 11:15 AM EDT SIGNATURE: Precious Benito MD PATIENT NAME: Dianelys Womack DATE: October 25, 2022 TIME: 7:22 PM CSN: [id number] [facility] ANES PRE-OPon 10-25-2022 ANES PRE-OP HNO ID: [id number] Author: Precious Rogers MD Service: ? Author Type: Anesthesiologist Type: Anesthesia Preprocedure Evaluation Filed: 10/25/2022 10:40 AM Note Text: ANESTHESIOLOGY DAY OF SURGERY NOTE : 1950 Procedure Information Anesthesia Start Date/Time: 10/25/22 1030 Scheduled providers: Kenton Kapadia MD; Iliana Montoya APRN.HUMANITIES DEPARTMENT CHAIR; Precious Rogers MD Procedure: COLONOSCOPY DIAGNOSTIC Location: Gastroenterology Estimated body mass index is 26.58 kg/m? as calculated from the following: Height as of this encounter: 160 cm (5' 2.99 ). Weight as of this encounter: 68 kg (150 lb). Most recent hematocrit and potassium results: Hematocrit 38.0 02/24/2022 Potassium 4.5 02/24/2022 Relevant Problems ANESTHESIA (+) Difficult intubation (+) History of anesthesia complications CARDIO (+) Primary hypertension (+) Thoracoabdominal aneurysm (HCC) ENDO (+) Hypothyroidism GI (+) Gastroesophageal reflux disease without esophagitis -RENAL (+) Chronic renal impairment, stage 2 (mild) NEURO-PSYCH (+) CVA (cerebral vascular accident) (HCC) (+) History of anesthesia complications (+) History of difficult intubation PULMONARY (+) Former smoker Psychiatry (+) Anxiety and depression Difficult airway note: intubated with FOB and 6.0 ETT previously (patient reports needing a pediatric sized ETT for a previous intubation). Did OK with MAC in a previous colonoscopy I - PHYSICAL EVALUATION AIRWAY Patient intubated: No. Tracheostomy tube not present Mallampati: III. TM distance: <3 FB. Neck ROM: full ROM without neurological symptoms. Mouth opening: adequate. Short neck: yes. Thick neck: no DENTAL Dentures, upper: partial. Dentures, lower: complete. II - ANESTHESIA PLAN ASA Score: 3 Anesthetic Plan: MAC and general Airway type: anesthesia mask The patient is not a current smoker. NPO Status: adequate Beta Barry Monitoring Plan Monitoring plan: standard ASA. Post Procedure Analgesic Plan Informed Consent Anesthetic risks, benefits, alternatives, personnel and consent discussed: yes. Patient / Responsible Democrat agrees to proceed: yes Patient / Surrogate agrees to blood products: Yes Potential Anesthesia issues that may suggest increased risk of complications or contraindication to planned procedure: potential difficult intubation. (if needed) Vitals Value Taken Time BP 155/88 10/25/22 0953 Pulse 101 10/25/22 0953 Resp 20 10/25/22 0953 Temp SpO2 98 % 10/25/22 0953 Outpatient Medications as of 10/25/2022 Medication Sig - neomycin 500 mg tablet Take 2 tablets by mouth at 9pm and take 2 tablets by mouth at 11pm the night before surgery. - OMEPRAZOLE ORAL Take 40 mg by mouth once daily. - ALPRAZolam (XANAX) 1 mg tablet Take 1 mg by mouth as needed. - Lactobacillus acidophilus (PROBIOTIC ORAL) Take by mouth once daily. - amLODIPine (NORVASC) 5 mg tablet Take 5 mg by mouth once daily. - gabapentin (NEURONTIN) 600 mg tablet twice daily. - traMADol (ULTRAM) 50 mg tablet as needed. - KLOR-CON M20 20 mEq tablet Take 20 mEq by mouth twice daily. - levothyroxine (SYNTHROID) 200 mcg tablet once daily. - folic acid 1 mg tablet once daily. - cetirizine (ZYRTEC) 10 mg tablet Take by mouth as needed. - vitamin B complex (B COMPLEX ORAL) Take by mouth. - ondansetron (ZOFRAN) 4 mg tablet as needed. (Patient not taking: No sig reported) Facility-Administer ed Medications as of 10/25/2022 Medication Dose Route Frequency - lidocaine (PF) 10 mg/mL (1 %) injection (XYLOCAINE) INTRAVENOUS PRN - propofol injection (DIPRIVAN) INTRAVENOUS PRN - propofol infusion (DIPRIVAN) INTRAVENOUS X (ONE-STEP ONLY) CONTINUOUS PRN I have interviewed and examined the patient. I have reviewed the medical record and/or the pre-anesthesia evaluation, pertinent labs, and test results. This contains updated information obtained within 48 hours of Surgery/Procedure. SIGNATURE: Precious Benito MD PATIENT NAME: Dianelys Womack DATE: October 25, 2022 TIME: 10:37 AM CSN: [id number] [facility] Colonoscopyon 10-25-2022 Colonoscopy Q3 Patient Name: Dianelys Womack Procedure Date: 10/25/2022 10:08 AM Date of : 1950 Admit Type: Outpatient Age: 71 Gender: Female Note Status: Finalized Attending MD: Kenton Kapadia MD Procedure: Colonoscopy Indications: High risk colon cancer surveillance: Personal history of colonic polyps Providers: Kenton Kapadia MD Patient Profile: This is a 71 year old female. Last Colonoscopy: 1 year ago. Referring Physician: Taz Tejeda MD (Referring MD) Medicines: Propofol per Anesthesia Complications: No immediate complications. Requesting Provider: Procedure: Pre-Anesthesia Assessment: - ASA Grade Assessment: II - A patient with mild systemic disease. After I obtained informed consent, the scope was passed under direct vision. Throughout the procedure, the patient's blood pressure, pulse, and oxygen saturations were monitored continuously. The Colonoscope was introduced through the anus and advanced to 10 cm into the ileum. The colonoscopy was performed without difficulty. The patient tolerated the procedure well. The quality of the bowel preparation was excellent. The terminal ileum, ileocecal valve, appendiceal orifice, and rectum were photographed. Moderate Sedation: MAC Findings: The perianal and digital rectal examinations were normal. A large post polypectomy scar was found in the rectum. The scar tissue was healthy in appearance. The scar was unremarkable in appearance. A 5 mm polyp was found in the ascending colon. The polyp was sessile. The polyp was removed with a cold snare. Resection and retrieval were complete. The exam was otherwise without abnormality on direct and retroflexion views. The terminal ileum appeared normal. Impression: - Post-polypectomy scar in the rectum. - One 5 mm polyp in the ascending colon, removed with a cold snare. Resected and retrieved. - The examination was otherwise normal on direct and retroflexion views. - The examined portion of the ileum was normal. Estimated Blood Loss: Estimated blood loss: none. Recommendation: - Patient has a contact number available for emergencies. The signs and symptoms of potential delayed complications were discussed with the patient. Return to normal activities tomorrow. Written discharge instructions were provided to the patient. - Resume previous diet. - Continue present medications. - Repeat colonoscopy in 3 years for surveillance. Procedure Code(s): --- Professional --- 58545, Colonoscopy, flexible; with removal of tumor(s), polyp(s), or other lesion(s) by snare technique Diagnosis Code(s): --- Professional --- Z12.11, Encounter for screening for malignant neoplasm of colon Z86.010, Personal history of colonic polyps Z98.890, Other specified postprocedural states D12.2, Benign neoplasm of ascending colon CPT copyright 2020 [employer]. All rights reserved. Attending Participation: I personally performed the entire procedure. Scope In: 10:37:51 AM Scope Out: 11:08:30 AM MD Kenton Rowe MD 10/25/2022 11:34:00 AM This report has been signed electronically by Kenton Kapadia MD Number of Addenda: 0 Note Initiated On: 10/25/2022 10:08 AM [facility] NURSING PROGon 10-25-2022 NURSING PROG HNO ID: [id number] Author: Stephanie Benavides, DELMAR Service: Nursing Author Type: Registered Nurse Type: Nursing Progress Note Filed: 10/25/2022 11:22 AM Note Text: AMBULATORY PATIENT EDUCATION NOTE TOPIC: GI PROCEDURES: Colonoscopy with or without biopsies based on clinical findings READINESS TO LEARN INSTRUCTION PROVIDED TO: Patient, readness to learn accessed prior to procedure COGNITIVE ABILITY: Alert and oriented PTED MOTIVATION TO LEARN: Eager Interested FAMILY SUPPORT: Moderate - Family present but overwhelmed IPATIENT LEARNS BEST BY: Individual Instruction Written Instruction - Hand-outs Verbal Instruction FACTORS AFFECTING LEARNING: None PHYSICAL LIMITATIONS AFFECTING LEARNING: None LEARNING RESPONSE METHOD OF INSTRUCTION: Individual instruction PATIENT / FAMILY RESPONSE: Verbalizes understanding of: WORSENING CONDITION-Signs and symptoms of a worsening condition that warrant a call to the physician FOLLOW-UP PLAN: Patient instructed to call with any further issues SUPPLEMENTAL MATERIAL: Procedure Discharge Instructions REFERRAL (RECOMMENDATION): None Electronically Signed By: Stephanie Benavides RN [facility] NURSING PROG HNO ID: [id number] Author: Corina Alcaraz LPN Service: Gastroenterology Author Type: LICENSED NURSE Type: Nursing Progress Note Filed: 10/25/2022 9:53 AM Note Text: PRE OP LEARNING ASSESSMENT PROCEDURE/SURGERY: GI PROCEDURES: Colonoscopy READINESS TO LEARN COGNITIVE ABILITY: Alert and oriented MOTIVATION TO LEARN: Eager Interested FAMILY SUPPORT: High - Very involved in pt care PATIENT LEARNS BEST BY: Individual Instruction Verbal Instruction FACTORS AFFECTING LEARNING: None PHYSICAL LIMITATIONS AFFECTING LEARNING: None Electronically Signed By: Corina Alcaraz LPN In Department: GASTROENTEROLOGY [facility] SURGICAL PATHOLOGYon 023 CASE REPORT [facility] Comment on above: Order Comment: Specmilagros montoya Type: TISSUE SPECIMENOrdering Facility: [facility] Address: [address] [place] [address] Result Comment: Surg ical Pathology Report Case: [id number] Authorizing Provider: Kenton Kapadia MD Collected: 10/25/2022 11:06 AM Ordering Location: Gastroenterology Received: 10/25/2022 06:28 PM Pathologist: Vishnu Carlton MD Specimen: ASCENDING COLON POLYP Performed By: #### S ####[facility]IT[facility] LABORATORYCLIA [id number] [address] STATES OF [facility] LABCLIA [id number] [address] FINAL DIAGNOSIS [facility] Comment on above: Order Comment: Magnus montoya Type: TISSUE SPECIMENOrdering Facility: [facility] Address: [address] [place], [place] [address] Result Comment: A. A scending colon, polypectomy: - Fragments of tubular adenoma. Performed By: #### S ####[facility]ATORYCLIA [id number] [address] LABCLIA [id number] [address] OF [facility] FINAL PERFORMING LAB Normal [facility] Comment on above: Order Comment: Speci men Type: TISSUE SPECIMENOrdering Facility: [facility] Address: [address] [address] Result Comment: Diag nostic interpretation performed at [facility], [address] [place] [address] CLIA# [id number] Infant Nanny: Gloria Sanz M.D. Performed By: #### S ####[facility]ALTH[facility] [id number] [address] LABCLIA [id number] [address] GROSS DESCRIPTION Normal [facility] Comment on above: Order Comment: Speci men Type: TISSUE SPECIMENOrdering Facility: [facility] Address: [address] [place] [address] Result Comment: A. A SCENDING COLON POLYP Received in formalin are multiple pieces of pascual, soft tissue aggregating to 1.5 x 0.2 x 0.2 cm. Totally submitted in one cassette. Gross examination performed at [facility], [address] October 26, 2022 12:06 AM Performed By: #### S ####[facility] [id number] [address] LABCLIA [id number] [address] OF [place] CNPKaelyn 10-18-2022 CNPN Telephone ([facility]) ---- DIANELYS WOMACK ([id number]) 1950 F Date Time Provider Department 10/18/22 SWATHI VERDUZCO [facility] During your visit today, we recorded the following information about you: Swathi Verduzco RN 10/18/2022 9:46 AM Signed Attempted to reach the patient at the contact number that they provided [phone] (home) . 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 Failure to have a responsible adult accompany the patient to their procedure appointment prevents the use of sedation or anesthesia for their procedure; and can result in cancellation of the procedure Clear liquids the day before the procedure, stop all liquids 4 hours before the procedure Instructions to contact their primary care provider regarding their medications and which medications to stop in preparation for their procedure Instructions to completely read and follow the written instructions that they recieved regarding their procedure. Number to call with questions or concerns [phone] Number to call to cancel their procedure [phone] Swathi Verduzco RN Allergies As of Date: 10/18/2022 Noted Allergy Reaction CIPROFLOXACIN 10/05/2020 16 - Unknown Flagyl (METRONIDAZOLE) 08/04/2016 16 - Unknown LEVOFLOXACIN 03/10/2015 16 - Unknown PENICILLINS 03/10/2015 16 - Unknown 14 - Other: See Comments SEASONAL ALLERGIES 10/05/2020 16 - Unknown SOY 05/16/2015 16 - Unknown VANCOMYCIN 11/17/2021 16 - Unknown Date Reviewed: 03/03/2022 Reviewed by: Stefano Lee, DELMAR - Fully Assessed Reason for Visit: Appointment [186] Prescriptions as of 10/18/2022 - neomycin 500 mg tablet Take 2 tablets by mouth at 9pm and take 2 tablets by mouth at 11pm the night before surgery. - OMEPRAZOLE ORAL Take 40 mg by mouth once daily. - ALPRAZolam (XANAX) 1 mg tablet Take 1 mg by mouth as needed. - Lactobacillus acidophilus (PROBIOTIC ORAL) Take by mouth once daily. - amLODIPine (NORVASC) 5 mg tablet Take 5 mg by mouth once daily. - gabapentin (NEURONTIN) 600 mg tablet twice daily. - traMADol (ULTRAM) 50 mg tablet as needed. - KLOR-CON M20 20 mEq tablet Take 20 mEq by mouth twice daily. - levothyroxine (SYNTHROID) 200 mcg tablet once daily. - folic acid 1 mg tablet once daily. - cetirizine (ZYRTEC) 10 mg tablet Take by mouth as needed. - vitamin B complex (B COMPLEX ORAL) Take by mouth. - ondansetron (ZOFRAN) 4 mg tablet as needed. Problem List As Of Date 10/18/2022 Noted Resolved Primary hypertension [I10] 12/06/2021 Hypothyroidism [E03.9] 12/06/2021 Gastroesophageal reflux disease without esophag*12/06/2021 Chronic renal impairment, stage 2 (mild) [N18.2]12/06/2021 History of anesthesia complications [Z87.898] 12/06/2021 CVA (cerebral vascular accident) (HCC) [I63.9] 12/06/2021 Former smoker [Z87.891] 02/24/2022 Thoracoabdominal aneurysm [I71.60] 02/24/2022 Anxiety and depression [F41.9, F32.A] 02/24/2022 Difficult intubation [T88.4XXA] 02/24/2022 History of difficult intubation [Z91.89] 02/24/2022 Encounter Status:Closed by SWATHI VERDUZCO on 10/18/22 [facility] BASIC METABOLIC PANELon 09-13 BUN/CREATININE RATIO SEE NOTE: Normal - Ques t Diagnostics Comment on above: Result Comment: Not Reported: BUN and Creatinine are within reference range. Performed By: #### 1 9106, 8817, 55595 #### [facility] [address], [address] [place] [address] Interventional Cardiologist: Doug Trejo MD Chloride [Moles/Vol] 105 mmol/L Normal 98-110 Ques t Diagnostics Comment on above: Performed By: #### 1 7306, 8837, 12039 #### [facility] [place] [address] Interventional Cardiologist: Doug Trejo MD CO2 [Moles/Vol] 30 mmol/L Normal 20-32 [facility] Comment on above: Performed By: #### 1 7306, 8837, 69554 #### [facility] [place] [address] Interventional Cardiologist: Doug Trejo MD Creatinine [Mass/Vol] 0.89 mg/dL Normal 0.60-1.[address] [facility] Comment on above: Performed By: #### 1 73, 8837, 41507 #### [facility] [place] [address] Interventional Cardiologist: Doug Trejo MD GFR/1.73 sq M.predicted among non-blacks MDRD (S/P/Bld) [Vol rate/Area] 69 mL/min/{1.73_m2} Normal > OR = 60 [facility] Comment on above: Performed By: #### 1 73, 8837, 92913 #### [facility] [place] [address] Interventional Cardiologist: Doug Trejo MD Glucose [Mass/Vol] 102 mg/dL High 65-99 [facility] Comment on above: Result Comment: Fasting reference interval For someone without known diabetes, a glucose value between 100 and 125 mg/dL is consistent with prediabetes and should be confirmed with a follow-up test. Performed By: #### 1 7306, 8837, 27946 #### [facility] [place] [address] Interventional Cardiologist: Doug Trejo MD Potassium [Moles/Vol] 3.9 mmol/L Normal 3.5-5.[address] [facility] Comment on above: Performed By: #### 1 7306, 8837, 69625 #### [facility] [address], [address] [place] [address] Interventional Cardiologist: Doug Trejo MD Sodium [Moles/Vol] 142 mmol/L Normal 135-146 [facility] Comment on above: Performed By: #### 1 7306, 8837, 71396 #### [facility] [address], [address] [place] [address] Interventional Cardiologist: Doug Trejo MD Urea nitrogen [Mass/Vol] 16 mg/dL Normal 7-25 [facility] Comment on above: Performed By: #### 1 7306, 8837, 71183 #### [facility] [address], [address] [place] [address] Interventional Cardiologist: Doug Trejo MD PTH, INTACT AND CALCIUMon Calcium [Mass/Vol] 9.7 mg/dL Normal 8.6-10.4 [facility] Comment on above: Order Comment: FASTI NG:YES FASTING: YES Performed By: #### 1 7306, 8837, 08361 #### [facility] [address], [address] [place] [address] Interventional Cardiologist: Doug Trejo MD PARATHYROID HORMONE, INTACT 62 pg/mL Normal 16-77 [facility] Comment on above: Order Comment: FASTI NG:YES FASTING: YES Result Comment: Interpretive Guide Intact PTH Calcium ------- Normal Parathyroid Normal Normal Hypoparathyroidism Low or Low Normal Low Hyperparathyroidism Primary Normal or High High Secondary High Normal or Low Tertiary High High Non-Parathyroid Hypercalcemia Low or Low Normal High Performed By: #### 1 7306, 8837, 00690 #### [facility] [place] [address] Interventional Cardiologist: Doug Trejo MD VITAMIN D,25-OH,TOTAL,IAon 0 09-24-2022 VITAMIN D,25-OH,TOTAL,IA 27 ng/mL Low 30-100 [facility] Comment on above: Result Comment: Denny min D Status 25-OH Vitamin D: Deficiency: <20 ng/mL Insufficiency: 20 - 29 ng/mL Optimal: > or = 30 ng/mL For 25-OH Vitamin D testing on patients on D2-supplementation and patients for whom quantitation of D2 and D3 fractions is required, the QuestAssureD(TM) 25-OH VIT D, (D2,D3), LC/MS/MS is recommended: order code 53197 (patients >2yrs). See Note 1 Note 1 For additional information, please refer to http://education.Medocity/faq/BBX689 (This link is being provided for informational/ educational purposes only.) Performed By: #### 1 7306, 1967, 06869 #### [facility] [place] [address] [facility], [address] [place] [address] Interventional Cardiologist: Doug Trejo MD Established Visit (Nephrolog y)on 09-20-2022 Established Visit (Nephrology) Diagnoses/Problems CKD (chronic kidney disease), stage III (585.3) (N18.30) Essential hypertension (401.9) (I10) Orders CKD (chronic kidney disease), stage III, Essential hypertension Basic Metabolic Panel; Status:Active; Requested for:[id number]; Parathormone Intact, Serum; Status:Active; Requested for:[id number]; Vitamin D 25-Hydroxy; Status:Active; Requested for:[id number]; Essential hypertension Renew: amLODIPine Besylate 10 MG Oral Tablet; TAKE 1 TABLET DAILY Unlinked Stop: cloNIDine HCl - 0.1 MG Oral Tablet Provider Impressions 1. Hypertension. Blood pressure is high. I increased her amlodipine dose. Recently her primary care physician put her on clonidine with 0.1 mg just once a day. I asked her to stop it. 2. Chronic kidney disease stage II/III. Last Cr level which was checked about 6 month ago is 0.94. I asked for a BMP to be done today. Volume status is fine. PTH, phosph and Vit D level will be checked. She will be seen in my office in about 6 months for follow-up. Chief Complaint PT in office for their 6 month f.u Pt's routine f.u History of Present Illness The patient is being seen for a routine clinic follow-up of chronic kidney disease. This is classified as stage 3. Recently, the disease has been stable. There are no known disease complications. The patient is currently asymptomatic. No associated symptoms are reported. Review of Systems The patient does not have any dizziness or lightheadedness. No chills and no fever. No headaches. No nausea and no vomiting. No shortness of breath. No cough. No sputum. No chest pain. No chest tightness. No abdominal pain. No diarrhea and no constipation. The patient denies any hematemesis or hemoptysis. No hematuria. No rectal bleeding. No melena. No epistaxis. The patient denies any urinary symptoms. No frequency, no hesitancy, and no urgency. No flank pain. The patient denies any leg edema. No leg pain. The patient denies any feeling of weakness. No itching. Overall, the rest of the review of systems is also negative. Active Problems Abdominal aortic aneurysm (441.4) (I71.40) CKD (chronic kidney disease), stage III (585.3) (N18.30) Class 1 obesity with body mass index (BMI) of 32.0 to 32.9 in adult (278.00,V85.32) (E66.9,Z68.32) Dizziness (780.4) (R42) Edema (782.3) (R60.9) Essential hypertension (401.9) (I10) Former smoker (V15.82) (Z87.891) Hypokalemia (276.8) (E87.6) Normal echocardiogram (V72.85) Overweight with body mass index (BMI) of 26 to 26.9 in adult (278.02,V85.22) (E66.3,Z68.26) PVC (premature ventricular contraction) (427.69) (I49.3) Sinus bradycardia (427.89) (R00.1) Surgical History History of Appendectomy History of Cholecystectomy History of Colonoscopy Dr Olsen [facility] History of Complete colonoscopy History of Ovarian surgery History of Tonsillectomy with adenoidectomy History of Uterine surgery Family History Family history of Cerebellar disease Family history of cardiomegaly (V17.49) (Z82.49) Social History Caffeine use (V49.89) (Z78.9) 1/2 CAN OF POP DAILY 2-3 CUPS OF HOT CHOCOLATE DAILY Former smoker (V15.82) (Z87.490) No alcohol use No illicit drug use Allergies ciprofloxacin Adverse Reaction; neuropathy; Recorded By: Danielle Dupree; 02/23/2021 12:09:39 PM Flagyl Adverse Reaction; neuropathy; Recorded By: Danielle Dupree; 02/23/2021 12:09:39 PM Penicillins Adverse Reaction; diaphoresis; Recorded By: Danielle Dupree; 02/23/2021 12:09:39 PM Current Meds Medication NameInstruction Allergy (Cetirizine) 10 MG Oral TabletTAKE 1 TABLET DAILY NEEDED. ALPRAZolam ER 1 MG Oral Tablet Extended Release 24 HourTAKE 1 TABLET DAILY. amLODIPine Besylate 5 MG Oral TabletTAKE 1 TABLET DAILY. cloNIDine HCl - 0.1 MG Oral TabletTAKE 1 TABLET DAILY. Docusate Sodium 100 MG TABSTAKE 1 TABLET bid prn Folic Acid 1 MG Oral TabletTake 1 tablet daily Gabapentin 600 MG Oral Tabletone tab in the am and 2 tabs in the pm Klor-Con M20 20 MEQ Oral Tablet Extended ReleaseTake 1 tablet twice a day Omeprazole 40 MG Oral Capsule Delayed ReleaseTAKE 1 CAPSULE Daily Synthroid 200 MCG Oral TabletTAKE 1 TABLET DAILY.except 1/2 tab on Mon and Monday traMADol HCl - 50 MG Oral TabletTAKE 1 TABLET 4 TIMES DAILY NEEDED FOR PAIN. Vitamin B Complex Oral Capsuleone capsule daily Vitals Vital Signs Recorded: 20Sep2022 12:51PM Cznthqgjlrz39.2 F Heart Rate90 Nyhncusp356, RUE, Sitting Fmzibbciz586, RUE, Sitting Height5 ft 3 in Ctqdqh202 lb BMI Kkuprydeoo25.23 kg/m2 BSA Calculated1.78 Physical Exam General: The patient is awake, oriented, and is not in any distress. Head and Neck: Normocephalic. No periorbital edema. Respiratory: Symmetric air entry. Symmetric chest expansion.No respiratory distress.. Skin: No maculopapular rash. Musculoskeletal: No peripheral edema in both left and right upper extremities. No edema in either left or right lower extremities. Neuro Exam: Speech is fluent. Moves extremities. (more content not included)... Normal [employer] Cardiovasc Arrhythmia Result son 05-12-2022 Cardiovasc Arrhythmia Results Reason For Visit Reason for Visit: Holter Monitor: DIANELYS is here for the application of a 24 hour Holter monitor. Ordering Physician: Seema Jim NP Diagnosis: PVC [facility] equipment agreement signed. DIANELYS understands monitor is to be returned on: 05/13/2022 Monitor number [id number] applied. Holter monitor returned and downloaded. 05/18/2022 Holter monitor printed and placed on Dr. Dima Minor MD desk to dictate. Diagnosis/Problems Assessed PVC (premature ventricular contraction) (427.69) (I49.3) Patient Discussion/Summary Patient underwent 24-hour Holter monitoring for history of PVCs, sinus bradycardia, and dizziness. The following observations are made: 1. Rhythm is sinus with heart rates ranging between 45 and 132 bpm. The average heart rate was 66 bpm. The longest pause was 1.5 seconds. 2. There were 47 isolated PVCs. 3. There were 4007 supraventricular ectopic beats noted. These were predominantly isolated beats although there were 680 couplets and 5 runs ranging in length from 3-7 beats at rates up to 130 bpm. 4. During the recording there were no events marked in the patient diary. Future Appointments Date/TimeProviderSp ecialtySite 09/20/2022 12:50 PMDaniel Ma MDNephrology[address] [place] [address] Dr Dominguez 3 DO 05/08/2023 01:00 PMElinor Raman [id number] [facility] 2 [address] 250 DO Signatures Electronically signed by : Dima Minor MD; May 23 2022 4:14PM EST (Author) Electronically signed by : Seema Saldaña APRN-LENO SEWER; May 24 2022 2:39PM EST (Author) Normal [employer] Office Visit (Cardiology)on 05-04-2022 Follow-up visit Diagnoses/Problems Assessed PVC (premature ventricular contraction) (427.69) (I49.3) Essential hypertension (401.9) (I10) Abdominal aortic aneurysm (441.4) (I71.40) Had repeat testing and is to see Vascular Normal echocardiogram (V72.85) Overweight with body mass index (BMI) of 26 to 26.9 in adult (278.02,V85.22) (E66.3,Z68.26) Orders Overweight with body mass index (BMI) of 26 to 26.9 in adult Healthy Weight Tips; Status:Complete; Done: 04May2022 PVC (premature ventricular contraction) IO Holter Monitor up to 48 Hrs; Status:Active - Perform Order; Requested for:04May2022; Patient Instructions Please bring all medicines, vitamins, and herbal supplements with you when you come to the office. Prescriptions will not be filled unless you are compliant with your follow up appointments or have a follow up appointment scheduled as per instruction of your physician. Refills should be requested at the time of your visit Fall prevention education given. PLAN: Through informed decision making process incorporating patients unique circumstances, the following treatment plan will be initiated: 1. Prescription drug management of cardiovascular medication for efficacy, adherence to treatment, side effect assessment and polypharmacy. Current treatment clinically warranted and to continue without modifications. 2. 24 hour holter f/u PVC burden off coreg 3. Return for follow-up; in the interim, contact the office if new symptoms arise. Dr Raman annual f/u Chief Complaint Annual f/u: 'doing fine' DIANELYS WOMACK is being seen for an annual follow-up of palpitations and PVCs. Patient presents to the office ambulatory with steady gait. Last evaluated in clinic Dr. Paniagua April 2021. Patient is followed routinely with Dr. Paniagua since June 2018 due to PVCs, a Holter monitor at that time showed 33% PVC burden. Subsequent echocardiogram was unremarkable. She has had no prior ischemic work-up. She was previously maintained on diltiazem and carvedilol. Approximately 1 year ago diltiazem was transitioned over to Norvasc. She reports symptomatic hypotension and PCP discontinued carvedilol. She follows routinely with PCP and nephrology. She otherwise denies any hospitalizations or significant changes to interval medical history since last office follow-up. 2019 incidental infrarenal abdominal aortic aneurysm, she has follow-up with vascular and recently completed CT of the abdomen and pelvis. She presents to the office today were overall she reports doing just fine . She is ambulatory with a cane due to nephropathy. She is able to go to the grocery store, do housework, she has stairs at home. She denies any exertional symptoms. She reports having palpitations sometimes and refers to them as a thumping in her chest. She reports I have had extra beats since I was in high school . She denies any dizziness or lightheadedness denies any prior episode of syncope. No prior ischemic work-up. Cardiovascular risk profile: Optimally treated hypertension Unknown lipid status Denies diabetes Non-smoker Negative family history premature coronary artery disease in primary relatives. She presents today off of AV jermaine agents. Holter monitor at this time is greater than 3-1/2 years old. We will reassess PVC burden and initiate treatment. If continued high PVC burden would need ischemic work-up. Discussed with her in detail. Otherwise, she does not limit any symptoms concerning for unstable angina or decompensated heart failure. History of Present Illness Comorbid Illnesses: hypertension. Symptoms: denies chest pain at rest, denies exertional chest pain, denies dyspnea, stable fatigue, denies exercise intolerance, stable palpitations, denies edema, denies orthopnea, denies dizziness and denies orthostatic dizziness. Associated symptoms: no syncope. Her symptoms do not limit her activities. Disease Monitoring: The patient has had a stable weight. Medications: the patient is adherent with her medication regimen. She denies medication side effects. Current Meds Medication NameInstruction Allergy (Cetirizine) 10 MG Oral TabletTAKE 1 TABLET DAILY NEEDED. ALPRAZolam ER 1 MG Oral Tablet Extended Release 24 HourTAKE 1 TABLET DAILY. amLODIPine Besylate 5 MG Oral TabletTAKE 1 TABLET DAILY. Docusate Sodium 100 MG Oral TabletTAKE 1 TABLET bid prn Folic Acid 1 MG Oral TabletTake 1 tablet daily Gabapentin 600 MG Oral Tabletone tab in the am and 2 tabs in the pm Klor-Con M20 20 MEQ Oral Tablet Extended ReleaseTake 1 tablet twice a day Omeprazole 40 MG Oral Capsule Delayed ReleaseTAKE 1 CAPSULE Daily Synthroid 200 MCG Oral TabletTAKE 1 TABLET DAILY.except 1/2 tab on Mon and Monday traMADol HCl - 50 MG Oral TabletTAKE 1 TABLET 4 TIMES DAILY NEEDED FOR PAIN. Vitamin B Complex CAPSone capsule daily Allergies Medication ciprofloxacin Adverse Reaction; neuropathy; Recorded By: Danielle Dupree; 02/23/2021 12:09:39 PM Flagyl Adverse Reaction; (more content not included)... Normal [employer] Tobacco Screening.on 023 Adult depression screening assessment No [facility] [employer] 250 DO Work Phone: Fall risk assessment b) One or more falls in the last year [facility] [employer] 250 DO Work Phone: Tobacco use status [facility] b) No M [facility] [employer] 250 DO Work Phone: Magdiel 03-28-2022 ALEXN Telephone (AZRAN) ---- VUDIANELYS Omi ([id number]) 1950 F Date Time Provider Department 03/28/22 Milagros VERA During your visit today, we recorded the following information about you: Stephanie Maradiaga [facility] [place]/28/2022 2:00 PM Signed [phone] Dianelys Womack complains of watery diarrhea. Lety Quinonse RN 03/28/2022 4:02 PM Signed Called and spoke with patient She is upset that a lot of her GI symptoms that she had prior to the ESD in February are still persisting. She has loose stools, large amounts of gas, and difficulty tolerating certain foods She would like to know how to manage these symptoms and what is causing these. Advised that she should reach out to Dr Tejeda's office to discuss her GI symptoms as she was seeing him prior to ESD for these concerns. Patient will reach out to his office to discuss Allergies As of Date: 03/28/2022 Noted Allergy Reaction CIPROFLOXACIN 10/05/2020 16 - Unknown Flagyl (METRONIDAZOLE) 08/04/2016 16 - Unknown LEVOFLOXACIN 03/10/2015 16 - Unknown PENICILLINS 03/10/2015 16 - Unknown 14 - Other: See Comments SEASONAL ALLERGIES 10/05/2020 16 - Unknown SOY 05/16/2015 16 - Unknown VANCOMYCIN 11/17/2021 16 - Unknown Date Reviewed: 03/03/2022 Reviewed by: Stefano Lee, RN - Fully Assessed Reason for Visit: [employer] - Other [[id number]] Prescriptions as of 03/28/2022 - neomycin 500 mg tablet Take 2 tablets by mouth at 9pm and take 2 tablets by mouth at 11pm the night before surgery. - OMEPRAZOLE ORAL Take 40 mg by mouth once daily. - ALPRAZolam (XANAX) 1 mg tablet Take 1 mg by mouth as needed. - Lactobacillus acidophilus (PROBIOTIC ORAL) Take by mouth once daily. - amLODIPine (NORVASC) 5 mg tablet Take 5 mg by mouth once daily. - gabapentin (NEURONTIN) 600 mg tablet twice daily. - traMADol (ULTRAM) 50 mg tablet as needed. - KLOR-CON M20 20 mEq tablet Take 20 mEq by mouth twice daily. - levothyroxine (SYNTHROID) 200 mcg tablet once daily. - folic acid 1 mg tablet once daily. - cetirizine (ZYRTEC) 10 mg tablet Take by mouth as needed. - vitamin B complex (B COMPLEX ORAL) Take by mouth. - ondansetron (ZOFRAN) 4 mg tablet as needed. 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 Lety Quinones RN 03/28/2022 1:43 PM Signed Called patient, no answer, left message Advised that she call back to discuss concerns Allergies As of Date: 03/28/2022 Noted Allergy Reaction CIPROFLOXACIN 10/05/2020 16 - Unknown Flagyl (METRONIDAZOLE) 08/04/2016 16 - Unknown LEVOFLOXACIN 03/10/2015 16 - Unknown PENICILLINS 03/10/2015 16 - Unknown 14 - Other: See Comments SEASONAL ALLERGIES 10/05/2020 16 - Unknown SOY 05/16/2015 16 - Unknown VANCOMYCIN 11/17/2021 16 - Unknown Date Reviewed: 03/03/2022 Reviewed by: Stefano Lee, DELMAR - Fully Assessed Reason for Visit: Patient Question [6762] Prescriptions as of 03/28/2022 - neomycin 500 mg tablet Take 2 tablets by mouth at 9pm and take 2 tablets by mouth at 11pm the night before surgery. - OMEPRAZOLE ORAL Take 40 mg by mouth once daily. - ALPRAZolam (XANAX) 1 mg tablet Take 1 mg by mouth as needed. - Lactobacillus acidophilus (PROBIOTIC ORAL) Take by mouth once daily. - amLODIPine (NORVASC) 5 mg tablet Take 5 mg by mouth once daily. - gabapentin (NEURONTIN) 600 mg tablet twice daily. - traMADol (ULTRAM) 50 mg tablet as needed. - KLOR-CON M20 20 mEq tablet Take 20 mEq by mouth twice daily. - levothyroxine (SYNTHROID) 200 mcg tablet once daily. - folic acid 1 mg tablet once daily. - cetirizine (ZYRTEC) 10 mg tablet Take by mouth as needed. - vitamin B complex (B COMPLEX ORAL) Take by mouth. - ondansetron (ZOFRAN) 4 mg tablet as needed. 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] 02/24/2022 Anxiety and depression [F41.9, F32.A] 02/24/2022 Difficult intubation [T88.4XXA] 02/24/2022 History of difficult intubation [Z91.89] 02/24/2022 Encounter Status:Closed by CAYDEN LEUNG on 03/28/22 Normal [facility] BASIC METABOLIC PANELon 02- BUN/CREATININE RATIO NOT APPLICABLE Normal - [facility] Comment on above: Performed By: #### 8 837, 718, 30379, 64785 #### [facility] [place] [address] Interventional Cardiologist: Doug Trejo MD Chloride [Moles/Vol] 105 mmol/L Normal 98-110 [facility] Comment on above: Performed By: #### 8 837, 718, 90773, 84226 #### [facility] [place] [address] Interventional Cardiologist: Doug Trejo MD CO2 [Moles/Vol] 30 mmol/L Normal 20-32 [facility] Comment on above: Performed By: #### 8 837, 718, 32213, 74319 #### [facility] [place] [address] Interventional Cardiologist: Doug Trejo MD Creatinine [Mass/Vol] 0.94 mg/dL Normal 0.60-1.[address] [facility] Comment on above: Performed By: #### 8 837, 718, 44050, 83873 #### [facility] [place] [address] Interventional Cardiologist: Doug Trejo MD GFR/1.73 sq M.predicted among non-blacks MDRD (S/P/Bld) [Vol rate/Area] 64 mL/min/{1.73_m2} Normal > OR = 60 [facility] Comment on above: Result Comment: The eGFR is based on the CKD-EPI 2020 equation. To calculate the new eGFR from a previous Creatinine or Cystatin C result, go to https://www.kidney.org/professionals/ kdoqi/gfr%5Fcalculator Performed By: #### 8 837, 718, 54594, 02927 #### [facility] [place] [address] Interventional Cardiologist: Doug Trejo MD Glucose [Mass/Vol] 94 mg/dL Normal 65-99 [facility] Comment on above: Result Comment: Fasting reference interval Performed By: #### 8 837, 718, 26081, 33108 #### [facility] [place] [address] Interventional Cardiologist: Doug Trejo MD Potassium [Moles/Vol] 4.3 mmol/L Normal 3.5-5.[address] [facility] Comment on above: Performed By: #### 8 837, 718, 51333, 97428 #### [facility] [place] [address] Interventional Cardiologist: Doug Trejo MD Sodium [Moles/Vol] 141 mmol/L Normal 135-146 [facility] Comment on above: Performed By: #### 8 837, 718, 51996, 86240 #### [facility] [place] [address] Interventional Cardiologist: Doug Trejo MD Urea nitrogen [Mass/Vol] 18 mg/dL Normal 7-25 [facility] Comment on above: Performed By: #### 8 837, 718, 16758, 59284 #### [facility] [place] [address] Interventional Cardiologist: Doug Trejo MD CTA ABD/PELVIS WO W CONon CTA ABD/PELVIS WO W CON EXAMINATION: CTA ABD/PELVIS WO W CON HISTORY: Abdominal aortic aneurysm without rupture COMPARISON: CT abdomen pelvis 11/25/2020 TECHNIQUE: Axial, Coronal, and Sagittal CT images without and with IV contrast. Multi-planar/3-D imaging to optimize visualization of vascular anatomy. Dose reduction techniques were achieved by using automated exposure control and/or adjustment of mA and/or kV according to patient size and/or use of iterative reconstruction technique. FINDINGS: AORTA/VASCULAR: Long segment fusiform dilation of infrarenal aorta up to 3.9 cm in diameter. Moderate atherosclerotic disease. Fusiform dilation of right common iliac artery, 2.7 cm. CELIAC ARTERY: Mild atherosclerotic narrowing. SMA: Mild atherosclerotic narrowing. RENAL ARTERIES: Mild atherosclerotic narrowing. LUNG BASES: No visible pulmonary or pleural disease. LIVER: No enlargement, atrophy, abnormal density, or significant focal lesion. BILIARY: No visible dilatation or calcification. PANCREAS: No lesion, fluid collection, ductal dilatation, or atrophy. SPLEEN: No enlargement or focal lesion. ADRENALS: No mass or enlargement. KIDNEYS: No mass, obstruction, or calcification. BOWEL/MESENTERY: No visible mass, obstruction, or bowel wall thickening. RETROPERITONEUM: No mass or adenopathy. LYMPH NODES: No adenopathy. URINARY BLADDER: No visible focal wall thickening, lesion, or calculus. PELVIC ORGANS: No visible mass. Pelvic organs appropriate for patient age. ABDOMINAL WALL: No mass or hernia. BONES: No bony lesion or fracture. OTHER: Negative. IMPRESSION: 1. Grossly stable fusiform abdominal aortic aneurysm, 3.9 x 3.8 cm (previously 4.1 x 3.5 cm). 2. 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, 2.7 cm (previously 2.8 cm) Electronically authenticated by: NATALIE FRANCO Date: 2022-03-24 08:09 Normal [facility] PHOSPHATE ( PHOSPHORUS)on 03-24-2022 Phosphate [Mass/Vol] 3.6 mg/dL Normal 2.1-4.3 [facility] Comment on above: Performed By: #### 8 055, 369, 73360, 56598 #### [facility] [address], [address] [place] [address] Interventional Cardiologist: Doug Trejo MD PTH, INTACT AND CALCIUMon Calcium [Mass/Vol] 9.5 mg/dL Normal 8.6-10.4 [facility] Comment on above: Order Comment: FASTI NG:YES FASTING: YES Performed By: #### 8 837, 718, 90907, 06067 #### [facility] [address] , [address] [place] [address] Interventional Cardiologist: Doug Trejo MD PARATHYROID HORMONE, INTACT 42 pg/mL Normal 16-77 [facility] Comment on above: Order Comment: FASTI NG:YES FASTING: YES Result Comment: Interpretive Guide Intact PTH Calcium ------- Normal Parathyroid Normal Normal Hypoparathyroidism Low or Low Normal Low Hyperparathyroidism Primary Normal or High High Secondary High Normal or Low Tertiary High High Non-Parathyroid Hypercalcemia Low or Low Normal High Performed By: #### 8 837, 718, 28323, 76503 #### [facility] [place] [address] Interventional Cardiologist: Doug Trejo MD VITAMIN D,25-OH,TOTAL,IAon 0 03-24-2022 VITAMIN D,25-OH,TOTAL,IA 29 ng/mL Low 30-100 [facility] Comment on above: Result Comment: Denny min D Status 25-OH Vitamin D: Deficiency: <20 ng/mL Insufficiency: 20 - 29 ng/mL Optimal: > or = 30 ng/mL For 25-OH Vitamin D testing on patients on D2-supplementation and patients for whom quantitation of D2 and D3 fractions is required, the QuestAssureD(TM) 25-OH VIT D, (D2,D3), LC/MS/MS is recommended: order code 19877 (patients >2yrs). See Note 1 Note 1 For additional information, please refer to http://education.Medocity/faq/KQW512 (This link is being provided for informational/ educational purposes only.) Performed By: #### 8 837, 718, 63476, 65686 #### [facility] [address], [address] [place] [address] Interventional Cardiologist: Doug Trejo MD CREATININEon 03-23-2022 Creatinine [Mass/Vol] 0.97 mg/dL Normal 0.55-1.02 [facility] Comment on above: Performed By: #### C DOYLE ####[facility] [address] [place] [id number]. Sheila Mittal EGFR-AF COLOMBIAN >60 Normal >=60 [facility] Comment on above: Performed By: #### C DOYLE ####[facility] [address] [place], [place] [address]Oo. Dannajennifer Mittal EGFR-NON AF COLOMBIAN 56 mL/min/1.73m2 Critically low >=60 [facility] Comment on above: Performed By: #### C DOYLE ####[facility] [address] [place] [id number]. Sheila Kyrie Established Visit (Nephrolog y)on 03-22-2022 Established Visit (Nephrology) Diagnoses/Problems CKD (chronic kidney disease), stage III (585.3) (N18.30) Essential hypertension (401.9) (I10) Orders CKD (chronic kidney disease), stage III, Essential hypertension Basic Metabolic Panel; Status:Active; Requested for:[id number]; Parathormone Intact, Serum; Status:Active; Requested for:[id number]; Phosphorus, Serum; Status:Active; Requested for:[id number]; Vitamin D 25-Hydroxy; Status:Active; Requested for:[id number]; Provider Impressions 1. Hypertension. Blood pressure is under control. continue the current meds. 2. Chronic kidney disease stage III. Last Cr level which was checked about 6 month ago is 1.01. I asked for a BMP to be done today. Volume status is fine. PTH, phosph and Vit D level will be checked. She will be seen in my office in about 6 months for follow-up. Chief Complaint PT in office for their 6 month f.u Pt's routine f.u History of Present Illness The patient is being seen for a routine clinic follow-up of chronic kidney disease. This is classified as stage 3. Recently, the disease has been stable. There are no known disease complications. The patient is currently asymptomatic. No associated symptoms are reported. Review of Systems The patient does not have any dizziness or lightheadedness. No chills and no fever. No headaches. No nausea and no vomiting. No shortness of breath. No cough. No sputum. No chest pain. No chest tightness. No abdominal pain. No diarrhea and no constipation. The patient denies any hematemesis or hemoptysis. No hematuria. No rectal bleeding. No melena. No epistaxis. The patient denies any urinary symptoms. No frequency, no hesitancy, and no urgency. No flank pain. The patient denies any leg edema. No leg pain. The patient denies any feeling of weakness. No itching. Overall, the rest of the review of systems is also negative. Active Problems Abdominal aortic aneurysm (441.4) (I71.40) CKD (chronic kidney disease), stage III (585.3) (N18.30) Class 1 obesity with body mass index (BMI) of 32.0 to 32.9 in adult (278.00,V85.32) (E66.9,Z68.32) Dizziness (780.4) (R42) Edema (782.3) (R60.9) Essential hypertension (401.9) (I10) Former smoker (V15.82) (Z87.891) Hypokalemia (276.8) (E87.6) PVC (premature ventricular contraction) (427.69) (I49.3) Sinus bradycardia (427.89) (R00.1) Surgical History History of Appendectomy History of Cholecystectomy History of Colonoscopy Dr Olsen [facility] History of Complete colonoscopy History of Ovarian surgery History of Tonsillectomy with adenoidectomy History of Uterine surgery Family History Family history of Cerebellar disease Family history of cardiomegaly (V17.49) (Z82.49) Social History Caffeine use (V49.89) (Z78.9) 1/2 CAN OF POP DAILY 2-3 CUPS OF HOT CHOCOLATE DAILY Former smoker (V15.82) (Z87.891) No alcohol use No illicit drug use Allergies ciprofloxacin Adverse Reaction; neuropathy; Recorded By: Danielle Dupree; 02/23/2021 12:09:39 PM Flagyl Adverse Reaction; neuropathy; Recorded By: Danielle Dupree; 02/23/2021 12:09:39 PM Penicillins Adverse Reaction; diaphoresis; Recorded By: Danielle Dupree; 02/23/2021 12:09:39 PM Current Meds Medication NameInstruction Allergy (Cetirizine) 10 MG Oral TabletTAKE 1 TABLET DAILY NEEDED. ALPRAZolam ER 1 MG Oral Tablet Extended Release 24 HourTAKE 1 TABLET DAILY. amLODIPine Besylate 5 MG Oral TabletTAKE 1 TABLET DAILY. Carvedilol 6.25 MG Oral TabletTAKE 1 TABLET TWICE DAILY WITH MEALS. Docusate Sodium 100 MG Oral TabletTAKE 1 TABLET bid prn Folic Acid 1 MG Oral TabletTake 1 tablet daily Gabapentin 600 MG Oral Tabletone tab in the am and 2 tabs in the pm Klor-Con M20 20 MEQ Oral Tablet Extended ReleaseTake 1 tablet twice a day Omeprazole 40 MG Oral Capsule Delayed ReleaseTAKE 1 CAPSULE Daily Ondansetron HCl - 4 MG Oral TabletPRN Synthroid 200 MCG Oral TabletTAKE 1 TABLET DAILY.except 1/2 tab on Mon and Monday traMADol HCl - 50 MG Oral TabletTAKE 1 TABLET 4 TIMES DAILY NEEDED FOR PAIN. Vitamin B Complex CAPSone capsule daily Vitals Vital Signs Recorded: [id number] 03:35PM Pxxsfmohsur58.1 F Heart Rate60 Xiaxbhhl150, LUE, Sitting Kebppdrke95, LUE, Sitting Height5 ft 3 in Sdzbkk394 lb BMI Rgxfqcwnld92.81 kg/m2 BSA Calculated1.74 Tobacco Useb) No Falls Screening (Age 18+)b) One or more falls in the last year Physical Exam Because of COVID-19 situation PE was very limited. General: The patient is awake, oriented, and is not in any distress. Head and Neck: Normocephalic. No periorbital edema. Respiratory: Symmetric air entry. Symmetric chest expansion.No respiratory distress.. Skin: No maculopapular rash. Musculoskeletal: No peripheral edema in both left and right upper extremities. No edema in either left or right lower extremities. Neuro Exam: Speech is fluent. Moves extremities. Results/Data [facility] [place] Basic Metabolic [id number] 10:05[facility] [address] [address] (more content not included)... Normal [facility] [employer] Tobacco Screening.on 023 Fall risk assessment b) One or more falls in the last year [facility] 3 DO Work Phone: Tobacco use status [facility]PH[facility] b) No M [facility] 3 DO Work Phone: CNPKaelyn 03-10-2022 CNPN Telephone (CORSM[facility]) ---- DIANELYS WOMACK ([id number]) 1950 F Date Time Provider Department 03/10/22 Milagros VERA During your visit today, we recorded the following information about you: Stephanie [place]adiaga [facility] [place] 1:30 PM Signed [phone] Dianelys Womack asked to speak with Lety. She claims she is having stomach issues since surgery. Although she stated she has had stomach issues previously. She couldn't sleep last nigh and asked about getting medication. I asked her if she has scheduled her appt with VS regarding abdominal aneurysm and she replied no not yet I want to get over one thing before I do another. I encouraged her to make the appt. Lety Quinones, RN 03/10/2022 3:22 PM Signed Called and spoke with patient S/p ESD of rectal mass with Jose on Noted some drops of blood in the toilet after bowel movements - advised this is to be expected at this time, she is having no other signs or symptoms of concern. Advised weakness, dizziness, lethargy, or profuse bleeding - go to ED She has some gas pains - advised try OTC gasx this should help, call back if not relieved after trying this Discussed path results and recommendations again, patient appreciative of call, verbalized understanding Allergies As of Date: 03/10/2022 Noted Allergy Reaction CIPROFLOXACIN 10/05/2020 16 - Unknown Flagyl (METRONIDAZOLE) 08/04/2016 16 - Unknown LEVOFLOXACIN 03/10/2015 16 - Unknown PENICILLINS 03/10/2015 16 - Unknown 14 - Other: See Comments SEASONAL ALLERGIES 10/05/2020 16 - Unknown SOY 05/16/2015 16 - Unknown VANCOMYCIN 11/17/2021 16 - Unknown Date Reviewed: 03/03/2022 Reviewed by: Stefano Lee RN - Fully Assessed Reason for Visit: [employer] - Other [3602] Prescriptions as of 03/10/2022 - neomycin 500 mg tablet Take 2 tablets by mouth at 9pm and take 2 tablets by mouth at 11pm the night before surgery. - OMEPRAZOLE ORAL Take 40 mg by mouth once daily. - ALPRAZolam (XANAX) 1 mg tablet Take 1 mg by mouth as needed. - Lactobacillus acidophilus (PROBIOTIC ORAL) Take by mouth once daily. - amLODIPine (NORVASC) 5 mg tablet Take 5 mg by mouth once daily. - gabapentin (NEURONTIN) 600 mg tablet twice daily. - traMADol (ULTRAM) 50 mg tablet as needed. - KLOR-CON M20 20 mEq tablet Take 20 mEq by mouth twice daily. - levothyroxine (SYNTHROID) 200 mcg tablet once daily. - folic acid 1 mg tablet once daily. - cetirizine (ZYRTEC) 10 mg tablet Take by mouth as needed. - vitamin B complex (B COMPLEX ORAL) Take by mouth. - ondansetron (ZOFRAN) 4 mg tablet as needed. 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] 02/24/2022 Anxiety and depression [F41.9, F32.A] 02/24/2022 Difficult intubation [T88.4XXA] 02/24/2022 History of difficult intubation [Z91.89] 02/24/2022 Encounter Status:Closed by LETY QUINONES on 03/10/22 [facility] 03-08-2022 CNPN Telephone ([employer]) ---- DIANELYS WOMACK ([id number]) 1950 F Date Time Provider Department 03/08/22 Milagros VERA During your visit today, we recorded the following information about you: Stephanie [place]adiaga [facility] [place]08/[place]22 10:57 AM Signed [phone] Dianelys Womack asked to speak with [place] about 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 [place]adiaga [facility] [place]09/[place]22 2:39 PM Signed I called patient and left message. An order for vascular surgery consult was placed. A message was sent to our schedulers to coordinate, however, she can call herself to schedule [phone] Allergies As of Date: 03/08/2022 Noted Allergy Reaction CIPROFLOXACIN 10/05/2020 16 - Unknown Flagyl (METRONIDAZOLE) 08/04/2016 16 - Unknown LEVOFLOXACIN 03/10/2015 16 - Unknown PENICILLINS 03/10/2015 16 - Unknown 14 - Other: See Comments SEASONAL ALLERGIES 10/05/2020 16 - Unknown SOY 05/16/2015 16 - Unknown VANCOMYCIN 11/17/2021 16 - Unknown Date Reviewed: 03/03/2022 Reviewed by: Stefano Lee RN - Fully Assessed Reason for Visit: Appointment [186] Prescriptions as of 03/09/2022 - neomycin 500 mg tablet Take 2 tablets by mouth at 9pm and take 2 tablets by mouth at 11pm the night before surgery. - OMEPRAZOLE ORAL Take 40 mg by mouth once daily. - ALPRAZolam (XANAX) 1 mg tablet Take 1 mg by mouth as needed. - Lactobacillus acidophilus (PROBIOTIC ORAL) Take by mouth once daily. - amLODIPine (NORVASC) 5 mg tablet Take 5 mg by mouth once daily. - gabapentin (NEURONTIN) 600 mg tablet twice daily. - traMADol (ULTRAM) 50 mg tablet as needed. - KLOR-CON M20 20 mEq tablet Take 20 mEq by mouth twice daily. - levothyroxine (SYNTHROID) 200 mcg tablet once daily. - folic acid 1 mg tablet once daily. - cetirizine (ZYRTEC) 10 mg tablet Take by mouth as needed. - vitamin B complex (B COMPLEX ORAL) Take by mouth. - ondansetron (ZOFRAN) 4 mg tablet as needed. 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 DIANELYS WOMACK : 1950 AGE: 71. SEX: F PATIENT TYPE: A HOSP SVC: CRS LOCATION: [id number] ATTENDING PHYSICIAN: Fei Vera M.D. [facility] NUMBER: [id number] DATE OF SURGERY/PROCEDURE: 03/03/2022 INCISION/PROCEDURE START TIME: 12:56 PM INCISION CLOSE/PROCEDURE END TIME: 3:38 PM PREOPERATIVE DIAGNOSIS: Rectal LST POSTOPERATIVE DIAGNOSIS: Same SURGEON: Fei Vera M.D. CROWN BLOCKER: CROWN BLOCKER: Pierre Tinoco MD. No qualified resident available. He participated in all portions of the surgery documented. This includes patient positioning, abdominal access, exposure, dissection and abdominal closure. . No qualified resident was available and he was instrumental in huddling and assistance and closure of the procedure. 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 Endoscopic submucosal dissection of the rectal lesion with Raptor grasper retraction. FINDINGS: Full colonoscopy, polyp at descending colon, 10 mm hot snare. Additionally, large rectal lesion extending from the dentate line up to the mid rectum occupying 40% of the rectal circumference at the left anterior position and endoscopic submucosal dissection was performed. The size is 6 cm. OPERATIVE INDICATIONS: This is a 71-year-old woman, who was referred to nd for further management of this large rectal lesion. After extensive discussion, it was decided to proceed with local excision of this tumor. DESCRIPTION OF PROCEDURE: After informed consent was obtained, the patient was brought to the operating room and IV induction was given followed by endotracheal intubation. The patient was positioned in modified lithotomy. First, a submucosal injection was performed by using endoclot and subsequently cutting was performed by using ProKnife 2.0 and submucosal vessels were coagulated. Raptor grasper was used alongside colonoscope to retract and expedite the procedure and subsequently the entire submucosal dissection was performed and the specimen was pinned on a cork board, which was about 6 cm and the defect was about 7.5 cm. There was no muscle defect. Therefore, no clips were used and also clip was not used in case if there would be any malignancy for further MRI staging that the clip would not be in the way. This concluded the operative procedure and the patient was transferred to recovery in good condition. I was present throughout the entire procedure and performed all the critical portions of the operation. Fei Vera M.D. EG:[id number] /[id number] [facility] ANES POSTPROC EVALon 023 ANES POSTPROC EVAL HNO ID: [id number] Author: Lakeshia Delacruz MD, PhD Service: ? Author Type: Anesthesiologist Type: Anesthesia Postprocedure Evaluation Filed: 03/03/2022 9:43 PM Note Text: POST ANESTHESIA EVALUATION NOTE : 1950 Procedure Summary Date: 03/03/22 Room / Location: [place] [address] [facility] Anesthesia Start: 1207 Anesthesia Stop: 1603 Procedures: COMBINED CO2 COLONOSCOPY AND LAPAROSCOPY (Anus) TAMIS EXC RECTAL TUMOR TRANSANAL MINIMALLY INVASIVE SURGERY (Anus) Diagnosis: Rectal mass (Rectal mass [K62.89]) Surgeons: Milagros Vera MD Responsible Provider: Lakeshia Delacruz MD, PhD Anesthesia Type: general ASA Status: 3 Anesthesia Type: general Airway Type: ETT Last Vitals Vitals Value Taken Time BP 140/78 03/03/22 1803 Temp 36.4 ?C (97.5 ?F) 03/03/22 1803 HR SpO2 57 03/03/22 1803 Resp 16 03/03/22 1803 SpO2 98 % 03/03/22 1803 Post Anesthesia Patient Status Patient Evaluation: bedside. Anticipated Disposition: inpatient floor planned admission. Neurological Status: aware and responsive. Pulmonary Status: breathing comfortably on supplemental oxygen Airway Control: returned to baseline unsupported. Cardiovascular Status: stable. Pain Management: clinically adequate Postoperative Hydration: acceptable. Intraoperative Events: no significant anesthesia events Post Operative Nausea/Vomiting Status: no significant post operative nausea or vomiting Recommendation: continue current plan of care. Anesthesia Observations No notable events were associated with this procedure. Documented by Rohini Stephenson APRN.HUMANITIES DEPARTMENT CHAIR 03/03/2022 3:04 PM EST SIGNATURE: Lakeshia Delacruz MD, PhD PATIENT NAME: Dianelys Womack DATE: March 03, 2022 TIME: 9:43 PM CSN: [id number] [facility] ANES PRE-OPon 03-03-2022 ANES PRE-OP HNO ID: [id number] Author: Lakeshia Delacruz MD, PhD Service: ? Author Type: Anesthesiologist Type: Anesthesia Preprocedure Evaluation Filed: 03/03/2022 11:43 AM Note Text: ANESTHESIOLOGY DAY OF SURGERY NOTE : 1950 Procedure Information Date/Time: 03/03/22 1115 Procedures: COMBINED CO2 COLONOSCOPY AND LAPAROSCOPY (Anus) TAMIS EXC RECTAL TUMOR TRANSANAL MINIMALLY INVASIVE SURGERY (Anus) Location: MAIN OR[facility] / [facility] Surgeons: Milagros Vera MD Estimated body mass index is 27.81 kg/m? as calculated from the following: Height as of this encounter: 160 cm (5' 3 ). Weight as of this encounter: 71.2 kg (157 lb). Most recent hematocrit and potassium results: Hematocrit 38.0 02/24/2022 Potassium 4.5 02/24/2022 Relevant Problems ANESTHESIA (+) Difficult intubation (+) History of anesthesia complications CARDIO (+) Primary hypertension (+) Thoracoabdominal aneurysm ENDO (+) Hypothyroidism GI (+) Gastroesophageal reflux disease without esophagitis -RENAL (+) Chronic renal impairment, stage 2 (mild) NEURO-PSYCH (+) CVA (cerebral vascular accident) (HCC) (+) History of anesthesia complications (+) History of difficult intubation I - PHYSICAL EVALUATION AIRWAY Patient intubated: No. Tracheostomy tube not present Mallampati: III. TM distance: >3 FB. Neck ROM: limited extension. Mouth opening: adequate. Short neck: yes. Beck present: no DENTAL Dental findings: teeth intact. Additional exam findings: no II - ANESTHESIA PLAN ASA Score: 3 Anesthetic Plan: general Airway type: ETT NPO Status: adequate Beta Barry Monitoring Plan Monitoring plan: standard ASA. Post Procedure Analgesic Plan Postoperative analgesic plan: multimodal analgesia. Informed Consent Anesthetic risks, benefits, alternatives, personnel and consent discussed: yes. Patient / Responsible Democrat agrees to proceed: yes Patient / Surrogate agrees to blood products: Yes Significant changes in the patient condition since the History and Physical, not otherwise documented in primary service progress note: no. Potential Anesthesia issues that may suggest increased risk of complications or contraindication to planned procedure: potential difficult intubation and potential difficult IV access. Vitals Value Taken Time BP 148/89 03/03/22 1000 Pulse 67 03/03/22 1000 Resp 18 03/03/22 1000 Temp 36.2 ?C (97.2 ?F) 03/03/22 1000 SpO2 98 % 03/03/22 1000 Facility-Administer ed Medications as of 03/03/2022 Medication Dose Route Frequency - lidocaine (PF) 10 mg/mL (1 %) 1-2 mg injection (XYLOCAINE) 0.1-0.2 mL INTRADERMAL PRN Or - lidocaine 1% 0.25 mL subcutaneous j-tip syringe (XYLOCAINE) 0.25 mL SUBCUTANEOUS PRN - lactated ringers iv infusion 5-30 mL/hr INTRAVENOUS CONTINUOUS - NaCl 0.9% iv flush bag 20 mL INTRAVENOUS PRN - [COMPLETED] heparin 5,000 Units injection 5,000 Units SUBCUTANEOUS ONCE - clindamycin iv piggyback 600 mg in D5W 50 mL (CLEOCIN) 600 mg INTRAVENOUS Pre-Op Once - aztreonam 1 g in D5W 100 mL Vial-Bag (AZACTAM) 1 g INTRAVENOUS Pre-Op Once Outpatient Medications as of 03/03/2022 Medication Sig - amLODIPine (NORVASC) 5 mg tablet Take 5 mg by mouth once daily. - gabapentin (NEURONTIN) 600 mg tablet twice daily. - traMADol (ULTRAM) 50 mg tablet as needed. - levothyroxine (SYNTHROID) 200 mcg tablet once daily. - folic acid 1 mg tablet once daily. - KLOR-CON M20 20 mEq tablet Take 20 mEq by mouth twice daily. - ondansetron (ZOFRAN) 4 mg tablet as needed. (Patient not taking: No sig reported) I have interviewed and examined the patient. I have reviewed the medical record and/or the pre-anesthesia evaluation, pertinent labs, and test results. This contains updated information obtained within 48 hours of Surgery/Procedure. Remote history of difficult intubation in OSH, no records available. She has recessed chin, short TMD, small mouth opening and prominent upper teeth. Plan is to do awake intubation, both patient and her daughter agreed with the plan. All their question were answered to their stated satisfaction. SIGNATURE: Lakeshia Delacruz MD, PhD PATIENT NAME: Dianelys Womack DATE: March 03, 2022 TIME: 11:39 AM CSN: [id number] [facility] BRIEF OP NOTon 03-03-2022 BRIEF OP NOT HNO ID: [id number] Author: Pollo Cardenas MD, PhD Service: Colorectal Author Type: Physician Type: Brief Op Note Filed: 03/03/2022 3:30 PM Note Text: BRIEF OPERATIVE NOTE - COLORECTAL SURGERY Log ID: [id number] Surgery/Procedure Date: 03/03/2022 Incision/Procedure Start Time: 12:56 PM Incision Close/Procedure End Time: 3:26 PM Surgeon(s) and Electronic Technician(s): Surgeon(s) and Role: * Milagros Vera MD - Primary * Pollo Cardenas MD, PhD - Assisting No Additional Staff Procedures and Anesthesia: Colonoscopy with polypectomy Endoscopic Submucosal Dissection of rectal lesion Stoma Type: N/A Findings: Colonoscopy - polyp in descending colon with 10 mm, pedunculated (polypectomy with snare) Large rectal lesion extending from the dentate line up to the middle rectum, occupying 1/4 of rectal circumference at the left anterior position (ESD) Estimated Blood Loss: 20 cc Specimens: ID Type Source Tests Collected by Time Destination A : DESCENDING COLON POLYP Tissue COLON POLYP SURGICAL PATHOLOGY I Fei Vera MD 03/03/2022 1:26 PM B : Tissue RECTAL POLYP SURGICAL PATHOLOGY I Fei Vera MD 03/03/2022 3:28 PM Diagnosis Code(s): Pre-Op Diagnosis Codes: * Rectal mass [K62.89] Postop Diagnosis: same Drains: None Wound Classification: N/A Complications: None SIGNATURE: Pollo Cardenas MD, PhD PATIENT NAME: Dianelys Womack DATE: March 03, 2022 TIME: 3:26 PM [facility] COLONOSCOPY (THERAPEUTIC)on 03-03-2022 [facility] Colonoscopyon 03-03-2022 Colonoscopy OR Gastrointestinal Endoscopy Patient Name: Dianelys Womack Procedure Date: 03/03/2022 12:13 PM Date of : 1950 Admit Type: Outpatient Age: 71 Gender: Female Note Status: Finalized Procedure: Colonoscopy Indications: This patient was referred for a therapeutic procedure Providers: Fei Vera MD Patient Profile: This is a 71 year old female. Refer to note in patient chart for documentation of history and physical. Last Colonoscopy: within the past 3 months. Referring Physician: Dr. Taz Tejeda Medicines: General Anesthesia Complications: No immediate complications. Requesting Provider: Procedure: Pre-Anesthesia Assessment: - Prior to the procedure, a History and Physical was performed, and patient medications, allergies and sensitivities were reviewed. The patient's tolerance of previous anesthesia was reviewed. - The risks and benefits of the procedure and the sedation options and risks were discussed with the patient. All questions were answered and informed consent was obtained. - ASA Grade Assessment: III - A patient with severe systemic disease. After I obtained informed consent, the scope was passed under direct vision. Throughout the procedure, the patient's blood pressure, pulse, and oxygen saturations were monitored continuously. The Endoscope was introduced through the anus and advanced to the cecum, identified by appendiceal orifice and ileocecal valve. The ileocecal valve, appendiceal orifice, and rectum were photographed. The entire colon was examined. The colonoscopy was somewhat difficult due to a tortuous colon. Successful completion of the procedure was aided by straightening and shortening the scope to obtain bowel loop reduction. The quality of the bowel preparation was good. The patient tolerated the procedure well. Moderate Sedation: General Anesthesia MAC anesthesia was administered by the anesthesia team. Findings: A 10 mm polyp was found in the descending colon. The polyp was semi-pedunculated. The polyp was removed with a hot snare. Resection and retrieval were complete. A greater than 50 mm polyp was found in the rectum extending from the dentate line to the middle rectum, occupying 1/4 of the rectal circumference. The polyp was flat. Preparations were made for endoscopic submucosal dissection. Demarcation of the lesion was performed to clearly identify boundaries of the lesion. 50 mL of Orise gel was injected with adequate lift of the lesion from the muscularis propria. A circumferential incision around the lesion into the submucosa was performed with a needle-knife. The lesion was then dissected from the underlying deep layers with the electrocautery knife and retrieved. A 4 x 6 cm area was resected. Resection and retrieval were complete. There was no bleeding at the end of the procedure. Impression: - One 10 mm polyp in the descending colon, removed with a hot snare. Resected and retrieved. - One greater than 50 mm polyp in the rectum, removed with endoscopic submucosal dissection. Resected and retrieved. - Endoscopic submucosal dissection was performed. Resection and retrieval were complete. Recommendation: - Discharge patient to home. - Resume previous diet. - Repeat colonoscopy date to be determined after pending pathology results are reviewed for surveillance based on pathology results. - Patient has a contact number available for emergencies. The signs and symptoms of potential delayed complications were discussed with the patient. Return to normal activities tomorrow. Written discharge instructions were provided to the patient. - Continue present medications. Attending Participation: I personally performed the entire procedure. I was present for the barry portions of this procedure and immediately available for all non-barry portions of the procedure. Fei Vera MD 03/03/2022 3:46:53 PM This report has been signed electronically by Fei Vera MD Number of Addenda: 0 Note Initiated On: 03/03/2022 12:13 PM Estimated Blood Loss: Estimated blood loss was minimal. Procedure Start: Procedure End: Normal [facility] SURGICAL PATHOLOGYon 023 CASE REPORT Normal [facility] Comment on above: Order Comment: Speci lindsay Type: TISSUE SPECIMENOrdering Facility: [facility] Address: [address] [place] [address] Result Comment: Surg [facility] Pathology Report Case: [id number] Authorizing Provider: Milagros Vera MD Collected: 03/03/2022 01:26 PM Ordering Location: Admitting Received: 03/03/2022 05:31 PM Pathologist: Huong Cortez MD Specimens: A) - COLON POLYP, DESCENDING COLON POLYP B) - RECTAL POLYP Performed By: #### S ####[facility] [id number] [address] [place] CLINICAL HISTORY Normal [facility] Comment on above: Order Comment: Speci men Type: TISSUE SPECIMENOrdering Facility: [facility] Address: [address] [place], [place] [address] Result Comment: Pre- op diagnosis: Rectal mass [K62.89] Performed By: #### S ####[facility] LABIA [id number] [address] STATES OF [facility] FINAL DIAGNOSIS Normal [facility] Comment on above: Order Comment: Jocelyni lindsay Type: TISSUE SPECIMENOrdering Facility: [facility] Address: [address] [place] [address] Result Comment: A. C olon, descending polyp, polypectomy: - Fragments of tubular adenoma B. 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 - Low-grade dysplasia focally present at the peripheral mucosal margin. ES/HH 03/08/2022 Performed By: #### S ####[facility] LABCLIA [id number] [address] OF [facility] FINAL PERFORMING LAB Normal [facility] Comment on above: Order Comment: Speci men Type: TISSUE SPECIMENOrdering Facility: [facility] Address: [address] [place] [address] Result Comment: Diag nostic interpretation performed at [facility], [address] [place] [address] CLIA# [id number] Infant Nanny: Johnny Rich M.D. Performed By: #### S ####[facility] LABCLIA [id number] [address] GROSS DESCRIPTION A. COLON POLYP Normal [facility] Comment on above: Order Comment: Speci men Type: TISSUE SPECIMENOrdering Facility: [facility] Address: [address] [place] [address] Result Comment: Rece ived in formalin with the patient's name, medical record number, and descending colon polyp is a 2.5 x 0.3 x 0.2 cm aggregate of pascual soft tissue fragments. Submitted in A1 and A2. Gross examination performed at [facility], [address] [place] [address] TTN 03/03/2022 9:21 PM B. RECTAL POLYP Received in formalin labeled with the patient's name, medical record number, and rectal polyp is a 6.0 x 5.8 x 2.5 cm unoriented mucosa-covered soft tissue fragment pinned out on cork board (gross photograph taken). The deep and mucosal resection margins are inked black. The mucosal surface is notable for a 4.5 x 4.0 cm eccentrically placed and centrally ulcerated lesion with rolled boarders, 0.9 cm from the closest mucosal margin. Focally, a J-shaped polypoid area is noted within the lesion extending from the lesion edge towards the ulcerated center. The remainder of the mucosa is pascual without gross abnormalities. On sectioning, the lesion appears confined to the mucosa with submucosal haines gelatinous material. The specimen is entirely submitted as follows: B1-B2: mucosal resection margin, perpendicular sections B3-B11 Body of specimen, sequentially submitted B12: Opposite mucosal margin, perpendicular sections Gross examination performed at [facility], [facility] [address] 03/04/22 4:00 PM Performed By: #### S ####[facility] LABCLIA [id number] [address] OF [place] CNPNon 03-01-2022 ALEXN Telephone (CORSMN) ---- DIANELYS WOMACK ([id number]) 1950 F Date Time Provider Department 03/01/22 Milagros VERA During your visit today, we recorded the following information about you: Stephanie Maradiaga [facility] [place]01/[place]22 4:19 PM Signed Dianelys Womack asked why she didn't get the flagyl and just the neomycin? Lety Quinones RN 03/02/2022 9:23 AM Signed Called and spoke with patient Advised that she has a listed allergy to flagyl, so I did not send that to her pharmacy Patient verbalized understanding Allergies As of Date: 03/01/2022 Noted Allergy Reaction CIPROFLOXACIN 10/05/2020 16 - Unknown Flagyl (METRONIDAZOLE) 08/04/2016 16 - Unknown LEVOFLOXACIN 03/10/2015 16 - Unknown PENICILLINS 03/10/2015 16 - Unknown 14 - Other: See Comments SEASONAL ALLERGIES 10/05/2020 16 - Unknown SOY 05/16/2015 16 - Unknown VANCOMYCIN 11/17/2021 16 - Unknown Date Reviewed: 02/24/2022 Reviewed by: Karson Monte APRN.LENO SEWER - Fully Assessed Reason for Visit: [employer] - Other [3602] Prescriptions as of 03/02/2022 - neomycin 500 mg tablet Take 2 tablets by mouth at 9pm and take 2 tablets by mouth at 11pm the night before surgery. - OMEPRAZOLE ORAL Take 40 mg by mouth once daily. - ALPRAZolam (XANAX) 1 mg tablet Take 1 mg by mouth as needed. - Lactobacillus acidophilus (PROBIOTIC ORAL) Take by mouth once daily. - amLODIPine (NORVASC) 5 mg tablet Take 5 mg by mouth once daily. - gabapentin (NEURONTIN) 600 mg tablet twice daily. - traMADol (ULTRAM) 50 mg tablet as needed. - KLOR-CON M20 20 mEq tablet Take 20 mEq by mouth twice daily. - levothyroxine (SYNTHROID) 200 mcg tablet once daily. - folic acid 1 mg tablet once daily. - cetirizine (ZYRTEC) 10 mg tablet Take by mouth as needed. - vitamin B complex (B COMPLEX ORAL) Take by mouth. - ondansetron (ZOFRAN) 4 mg tablet as needed. 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 As discussed, please fax to Renetta feliz [phone] Allergies As of Date: 03/01/2022 Noted Allergy Reaction CIPROFLOXACIN 10/05/2020 16 - Unknown Flagyl (METRONIDAZOLE) 08/04/2016 16 - Unknown LEVOFLOXACIN 03/10/2015 16 - Unknown PENICILLINS 03/10/2015 16 - Unknown 14 - Other: See Comments SEASONAL ALLERGIES 10/05/2020 16 - Unknown SOY 05/16/2015 16 - Unknown VANCOMYCIN 11/17/2021 16 - Unknown Date Reviewed: 02/24/2022 Reviewed by: Karson Monte APRN.[facility] - Fully Assessed Reason for Visit: Patient Update [1234] Prescriptions as of 03/01/2022 - neomycin 500 mg tablet Take 2 tablets by mouth at 9pm and take 2 tablets by mouth at 11pm the night before surgery. - OMEPRAZOLE ORAL Take 40 mg by mouth once daily. - ALPRAZolam (XANAX) 1 mg tablet Take 1 mg by mouth as needed. - Lactobacillus acidophilus (PROBIOTIC ORAL) Take by mouth once daily. - amLODIPine (NORVASC) 5 mg tablet Take 5 mg by mouth once daily. - gabapentin (NEURONTIN) 600 mg tablet twice daily. - traMADol (ULTRAM) 50 mg tablet as needed. - KLOR-CON M20 20 mEq tablet Take 20 mEq by mouth twice daily. - levothyroxine (SYNTHROID) 200 mcg tablet once daily. - folic acid 1 mg tablet once daily. - cetirizine (ZYRTEC) 10 mg tablet Take by mouth as needed. - vitamin B complex (B COMPLEX ORAL) Take by mouth. - ondansetron (ZOFRAN) 4 mg tablet as needed. 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 [facility] Magdiel 02-28-2022 [place] Telephone (PANTERA) ---- DIANELYS WOMACK ([id number]) 1950 F Date Time Provider Department 02/28/22 Milagros VERA During your visit today, we recorded the following information about you: Stephanie Maradiaga [facility] [place]/28/2022 9:27 AM Signed [phone] Dianelys Womack has questions about meds she can and can't take prior to surgery. [employer]-klore Tramadol probotic Lety Quinones RN 02/28/2022 2:22 PM Signed Called and spoke with patient She would like pt ed info faxed to her daughter's fax number She also wanted to review meds prior to surgery - reviewed what PACC advised as far as medication stopping and/or taking Patient appreciative of call She was also interested in possibly hooking up with cardiovascular provider here at [facility] for AAA She will call me if interested deciding to proceed with care with CV at [facility] - I am happy to help coordinate Allergies As of Date: 02/28/2022 Noted Allergy Reaction CIPROFLOXACIN 10/05/2020 16 - Unknown Flagyl (METRONIDAZOLE) 08/04/2016 16 - Unknown LEVOFLOXACIN 03/10/2015 16 - Unknown PENICILLINS 03/10/2015 16 - Unknown 14 - Other: See Comments SEASONAL ALLERGIES 10/05/2020 16 - Unknown SOY 05/16/2015 16 - Unknown VANCOMYCIN 11/17/2021 16 - Unknown Date Reviewed: 02/24/2022 Reviewed by: Karson Monte APRN.LENO SEWER - Fully 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 - OMEPRAZOLE ORAL Take 40 mg by mouth once daily. - ALPRAZolam (XANAX) 1 mg tablet Take 1 mg by mouth as needed. - Lactobacillus acidophilus (PROBIOTIC ORAL) Take by mouth once daily. - amLODIPine (NORVASC) 5 mg tablet Take 5 mg by mouth once daily. - gabapentin (NEURONTIN) 600 mg tablet twice daily. - traMADol (ULTRAM) 50 mg tablet as needed. - KLOR-CON M20 20 mEq tablet Take 20 mEq by mouth twice daily. - levothyroxine (SYNTHROID) 200 mcg tablet once daily. - folic acid 1 mg tablet once daily. - cetirizine (ZYRTEC) 10 mg tablet Take by mouth as needed. - vitamin B complex (B COMPLEX ORAL) Take by mouth. - ondansetron (ZOFRAN) 4 mg tablet as needed. 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] 02/24/2022 Anxiety and depression [F41.9, F32.A] 02/24/2022 Difficult intubation [T88.4XXA] 02/24/2022 History of difficult intubation [Z91.89] 02/24/2022 Encounter Status:Closed by LETY QUINONES on 02/28/22 Normal [facility] CBC panel Auto (Bld)on 02-24 Erythrocyte distribution width (RBC) [Ratio] 14.6 % Normal 11.5-15.0 [facility] Comment on above: Order Comment: Speci lindsay Type: BLOOD SPECIMENOrdering Facility: [facility] Address: [address] [place] [address] Performed By: #### 5 8410-2 ####[facility] LABIA [id number] [place] [address] [place] Hematocrit (Bld) [Volume fraction] 38.0 % Normal 36.0-46.0 [facility] Comment on above: Order Comment: Magnus montoya Type: BLOOD SPECIMENOrdering Facility: [facility] Address: [address] [place] [address] Performed By: #### 5 8410-2 ####[facility] LABCLIA [id number] [place] [address] [place] Hemoglobin (Bld) [Mass/Vol] 12.1 g/dL Normal 11.5-15.5 [facility] Comment on above: Order Comment: Jocelyni men Type: BLOOD SPECIMENOrdering Facility: [facility] Address: [address] [place] [address] Performed By: #### 5 8410-2 ####[facility] LABCLIA [id number] [address] MCH (RBC) [Entitic mass] 26.7 pg Normal 26.0-34.0 [facility] Comment on above: Order Comment: Speci men Type: BLOOD SPECIMENOrdering Facility: [facility] Address: [address] [place] [address] Performed By: #### 5 8410-2 ####[facility] LABCLIA [id number] [address] STATES [facility] MCHC (RBC) [Mass/Vol] 31.8 g/dL Normal 30.5-36.0 [facility] Comment on above: Order Comment: Speci men Type: BLOOD SPECIMENOrdering Facility: [facility] Address: [address] [place] [address] Performed By: #### 5 8410-2 ####[facility] LABCLIA [id number] [address] [place] MCV (RBC) [Entitic vol] 83.7 fL Normal 80.0-100.0 [facility] Comment on above: Order Comment: Speci men Type: BLOOD SPECIMENOrdering Facility: [facility] Address: [address] [place] [address] Performed By: #### 5 8410-2 ####[facility] LABCLIA [id number] [place] [address] [place] Nucleated RBC (Bld) [#/Vol] 10*3/uL Normal <0.01 [facility] Comment on above: Order Comment: Speci men Type: BLOOD SPECIMENOrdering Facility: [facility] Address: [address] [place], [place] [address] Performed By: #### 5 8410-2 ####[facility] LABCLIA [id number] [address] [place] Platelet mean volume (Bld) [Entitic vol] 10.6 fL Normal 9.0-12.7 [facility] Comment on above: Order Comment: Speci men Type: BLOOD SPECIMENOrdering Facility: [facility] Address: [address] [place], [place] [address] Performed By: #### 5 8410-2 ####[facility] LABCLIA [id number] [place] [address] [place] Platelets (Bld) [#/Vol] 161 10*3/uL Normal 150-400 [facility] Comment on above: Order Comment: Speci men Type: BLOOD SPECIMENOrdering Facility: [facility] Address: [address] [place], [place] [address] Performed By: #### 5 8410-2 ####[facility] LABCLIA [id number] [place] [address] [place] RBC (Bld) [#/Vol] 4.54 10*6/uL Normal 3.90-5.[address] [facility] Comment on above: Order Comment: Speci men Type: BLOOD SPECIMENOrdering Facility: [facility] Address: [address] [place], [place] [address] Performed By: #### 5 8410-2 ####[facility] LABCLIA [id number] [place] [address] [place] WBC (Bld) [#/Vol] 6.18 10*3/uL Normal 3.70-11.[address] [facility] Comment on above: Order Comment: Speci men Type: BLOOD SPECIMENOrdering Facility: [facility] Address: [address] [place], [place] [address] Performed By: #### 5 8410-2 ####[facility] LABCLIA [id number] [place] [address] [place] CEA SerPl-mCncon 02-24-2022 Carcinoembryonic Ag [Mass/Vol] 1.3 ng/mL Normal <=2.9 [facility] Comment on above: Order Comment: Speci men Type: BLOOD SPECIMENOrdering Facility: [facility] Address: [address] [place] [address] Result Comment: Carc inoembryonic antigen test is used as an aid in monitoring response to treatment or recurrence in patients with established colorectal, breast, lung, prostatic, pancreatic, and ovarian carcinomas. Clinical correlation is required. The Carcinoembryonic antigen test was performed using the [employer] DXI paramagnetic particle chemiluminescent immunoassay method. Results obtained with different assay methods or kits cannot be used interchangeably. Performed By: #### 2 039-6 ####[facility] LABCLIA [id number] [place] [place] Magdiel 02-24-2022 ALEXN Telephone (PANTERA) ---- DIANELYS WOMACK ([id number]) 1950 F Date Time Provider Department 02/24/22 LETY QUINONES (RN) PANTERA During your visit today, we recorded the following information about you: Lety Quinones RN 02/24/2022 11:57 AM Signed Called patient. No answer, left message Advised that she is late for appt with nurse for preop education Advised that she come to appt if she is still here, if running late no problem If she left for the day, she should call the office so we can review pt ed over the phone Allergies As of Date: 02/24/2022 Noted Allergy Reaction CIPROFLOXACIN 10/05/2020 16 - Unknown Flagyl (METRONIDAZOLE) 08/04/2016 16 - Unknown LEVOFLOXACIN 03/10/2015 16 - Unknown PENICILLINS 03/10/2015 16 - Unknown 14 - Other: See Comments SEASONAL ALLERGIES 10/05/2020 16 - Unknown SOY 05/16/2015 16 - Unknown VANCOMYCIN 11/17/2021 16 - Unknown Date Reviewed: 02/24/2022 Reviewed by: Karson Monte APRN.LENO SEWER - Fully Assessed 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 - OMEPRAZOLE ORAL Take 40 mg by mouth once daily. - ALPRAZolam (XANAX) 1 mg tablet Take 1 mg by mouth as needed. - Lactobacillus acidophilus (PROBIOTIC ORAL) Take by mouth once daily. - amLODIPine (NORVASC) 5 mg tablet Take 5 mg by mouth once daily. - gabapentin (NEURONTIN) 600 mg tablet twice daily. - traMADol (ULTRAM) 50 mg tablet as needed. - KLOR-CON M20 20 mEq tablet Take 20 mEq by mouth twice daily. - levothyroxine (SYNTHROID) 200 mcg tablet once daily. - folic acid 1 mg tablet once daily. - cetirizine (ZYRTEC) 10 mg tablet Take by mouth as needed. - vitamin B complex (B COMPLEX ORAL) Take by mouth. - ondansetron (ZOFRAN) 4 mg tablet as needed. 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 Please call patient at [phone] Lety Quinones RN 02/24/2022 12:35 PM Signed Called and spoke with patient She accidentally left and missed pt ed appt Reviewed pt ed over the phone Medications sent to pharmacy Will send pt ed info to her via mail Patient appreciativ eof call Allergies As of Date: 02/24/2022 Noted Allergy Reaction CIPROFLOXACIN 10/05/2020 16 - Unknown Flagyl (METRONIDAZOLE) 08/04/2016 16 - Unknown LEVOFLOXACIN 03/10/2015 16 - Unknown PENICILLINS 03/10/2015 16 - Unknown 14 - Other: See Comments SEASONAL ALLERGIES 10/05/2020 16 - Unknown SOY 05/16/2015 16 - Unknown VANCOMYCIN 11/17/2021 16 - Unknown Date Reviewed: 02/24/2022 Reviewed by: Karson Monte APRN.LENO SEWER - Fully Assessed Reason for Visit: Returning Patient's Call [408] Prescriptions as of 02/24/2022 - polyethylene glycol 3350 (MIRALAX, GLYCOLAX) 17 gram/dose powder Use as directed for Miralax / Gatorade Bowel Prep Kit - Gatorade Sports Drink Use as directed for Miralax / Gatorade Bowel Prep Kit - Bisacodyl (DULCOLAX) 5 mg tab Use as directed for Miralax / Gatorade Bowel Prep Kit - neomycin 500 mg tablet Take 2 tablets by mouth at 9pm and take 2 tablets by mouth at 11pm the night before surgery. - OMEPRAZOLE ORAL Take 40 mg by mouth once daily. - ALPRAZolam (XANAX) 1 mg tablet Take 1 mg by mouth as needed. - Lactobacillus acidophilus (PROBIOTIC ORAL) Take by mouth once daily. - amLODIPine (NORVASC) 5 mg tablet Take 5 mg by mouth once daily. - gabapentin (NEURONTIN) 600 mg tablet twice daily. - traMADol (ULTRAM) 50 mg tablet as needed. - KLOR-CON M20 20 mEq tablet Take 20 mEq by mouth twice daily. - levothyroxine (SYNTHROID) 200 mcg tablet once daily. - folic acid 1 mg tablet once daily. - cetirizine (ZYRTEC) 10 mg tablet Take by mouth as needed. - vitamin B complex (B COMPLEX ORAL) Take by mouth. - ondansetron (ZOFRAN) 4 mg tablet as needed. 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] 02/24/2022 Anxiety and depression [F41.9, F32.A] 02/24/2022 Difficult intubation [T88.4XXA] 02/24/2022 History of difficult intubation [Z91.89] 02/24/2022 Encounter Status:Closed by BLAINE HERRING on 02/24/22 Normal [facility] CONFIRM BLOOD TYPEon 023 ABO O Normal [facility] Comment on above: Order Comment: Speci men Type: BLOOD SPECIMEN [facility] Address: [address] [place] [address] Performed By: #### C ONABO #### [facility] CLIA [id number] [address] [place] [address] [place] Rh Nom (Bld) Positive Normal [facility] Comment on above: Order Comment: Speci men Type: BLOOD SPECIMEN [facility] Address: [address] [place] [address] Performed By: #### C ONABO #### [facility] CLIA [id number] [address] [place] [address] [place] Comprehensive metabolic 2000 panelon 02-24-2022 Albumin [Mass/Vol] 3.8 g/dL Low 3.9-4.9 [facility] Comment on above: Order Comment: Speci men Type: BLOOD SPECIMENOrdering Facility: [facility] Address: [address] [place] [address] Performed By: #### 2 4323-8 ####[facility] LABCLIA [id number] [place] [address] [place] ALP [Catalytic activity/Vol] 152 U/L High 34-123 [facility] Comment on above: Order Comment: Speci men Type: BLOOD SPECIMENOrdering Facility: [facility] Address: [address] [place], [place] [address] Performed By: #### 2 4323-8 ####[facility] LABCLIA [id number] [place] [address] [place] ALT [Catalytic activity/Vol] 17 U/L Normal 7-38 [facility] Comment on above: Order Comment: Speci men Type: BLOOD SPECIMENOrdering Facility: [facility] Address: [address] Performed By: #### 2 4323-8 ####[facility] LABCLIA [id number] [place] [address] [place] Anion gap [Moles/Vol] 11 mmol/L Normal 9-18 [facility] Comment on above: Order Comment: Speci men Type: BLOOD SPECIMENOrdering Facility: [facility] Address: [address] Performed By: #### 2 4323-8 ####[facility] LABCLIA [id number] [place] [address] [place] AST [Catalytic activity/Vol] 30 U/L Normal 13-35 [facility] Comment on above: Order Comment: Speci men Type: BLOOD SPECIMENOrdering Facility: [facility] Address: [address] Performed By: #### 2 4323-8 ####[facility] LABCLIA [id number] [place] [address] [place] Bilirubin [Mass/Vol] 0.4 mg/dL Normal 0.2-1.3 [facility] Comment on above: Order Comment: Speci men Type: BLOOD SPECIMENOrdering Facility: [facility] Address: [address] Performed By: #### 2 4323-8 ####[facility] LABIA [id number] [place] [address] [place] Calcium [Mass/Vol] 10.0 mg/dL Normal 8.5-10.2 [facility] Comment on above: Order Comment: Speci men Type: BLOOD SPECIMENOrdering Facility: [facility] Address: [address] Performed By: #### 2 4323-8 ####[facility] LABCLIA [id number] [place] [address] [place] Chloride [Moles/Vol] 105 mmol/L Normal 97-105 [facility] Comment on above: Order Comment: Speci men Type: BLOOD SPECIMENOrdering Facility: [facility] Address: [address] Performed By: #### 2 4323-8 ####[facility] LABCLIA [id number] [place] [address] [place] CO2 [Moles/Vol] 22 mmol/L Normal 22-30 [facility] Comment on above: Order Comment: Speci men Type: BLOOD SPECIMENOrdering Facility: [facility] Address: [address] [place] [address] Performed By: #### 2 4323-8 ####[facility] LABCLIA [id number] [place] [address] [place] Creatinine [Mass/Vol] 0.82 mg/dL Normal 0.58-0.96 [facility] Comment on above: Order Comment: Speci men Type: BLOOD SPECIMENOrdering Facility: [facility] Address: [address] [place] [address] Performed By: #### 2 4323-8 ####[facility] LABIA [id number] [address] [place] ESTIMATED GLOMERULAR FILTRATION RATE 76 mL/min/1.73m??? Normal >=60 [facility] Comment on above: Order Comment: Speci men Type: BLOOD SPECIMENOrdering Facility: [facility] Address: [address] [place] [address] Result Comment: Hortencia mated Glomerular Filtration Rate (eGFR) is calculated using the 2020 CKD-EPI creatinine equation. This equation utilizes serum creatinine, sex, and age as parameters. The creatinine assay has traceable calibration to isotope dilution-mass spectrometry. Refer to KDIGO guidelines for clinical interpretation. In patients with unstable renal function, e.g. those with acute kidney injury, the eGFR may not accurately reflect actual GFR. Performed By: #### 2 4323-8 ####[facility] LABCLIA [id number] [place] [address] [place] Glucose [Mass/Vol] 98 mg/dL Normal 74-99 [facility] Comment on above: Order Comment: Speci men Type: BLOOD SPECIMENOrdering Facility: [facility] Address: [address] [place] [address] Result Comment: The [place] [employer] (ADA) provides guidance for cutoff values for fasting glucose and random glucose. The ADA defines fasting as no caloric intake for at least 8 hours. Fasting plasma glucose results between 100 to 125 mg/dL indicate increased risk for diabetes (prediabetes). Fasting plasma glucose results greater than or equal to 126 mg/dL meet the criteria for diagnosis of diabetes. In the absence of unequivocal hyperglycemia, results should be confirmed by repeat testing. In a patient with classic symptoms of hyperglycemia or hyperglycemic crisis, random plasma glucose results greater than or equal to 200 mg/dL meet the criteria for diagnosis of diabetes. Reference: Standards of Medical Care in Diabetes 2016, [place] [employer]. Diabetes Care. 2016.39(Suppl 1). Performed By: #### 2 4323-8 ####[facility] LAB[facility] [id number] [place] [address] [place] Potassium [Moles/Vol] 4.5 mmol/L Normal 3.7-5.1 [facility] Comment on above: Order Comment: Speci men Type: BLOOD SPECIMENOrdering Facility: [facility] Address: [address] Performed By: #### 2 4323-8 ####[facility] [id number] [place] [address] [place] Protein [Mass/Vol] 6.8 g/dL Normal 6.3-8.0 [facility] Comment on above: Order Comment: Speci men Type: BLOOD SPECIMENOrdering Facility: [facility] Address: [address] [place] [address] Performed By: #### 2 4323-8 ####[facility] LABIA [id number] [place] [address] [place] Sodium [Moles/Vol] 138 mmol/L Normal 136-144 [facility] Comment on above: Order Comment: Speci men Type: BLOOD SPECIMENOrdering Facility: [facility] Address: [address] [place] [address] Performed By: #### 2 4323-8 ####[facility] LABCLIA [id number] [place] [address] [place] Urea nitrogen [Mass/Vol] 20 mg/dL Normal 7-21 [facility] Comment on above: Order Comment: Speci men Type: BLOOD SPECIMENOrdering Facility: [facility] Address: [address] [place] [address] Performed By: #### 2 4323-8 ####[facility] [id number] [place] [address] [place] ECG COMPLETEon 02-24-2022 ECG COMPLETE Ventricular Rate : 54 BPM Atrial Rate : 54 BPM P-R Interval : 172 ms QRS Duration : 96 ms Q-T Interval : 450 ms QTC Calculation(Bazett) : 426 ms Calculated P [place] : 59 degrees Calculated R [place] : -33 degrees Calculated T [place] : 48 degrees SINUS BRADYCARDIA LEFT AXIS DEVIATION ABNORMAL ECG Confirmed by JHON JO M.D. ([id number]) on 03/01/2022 1:40:04 PM NAME : DIANELYS WOMACK PID : [id number] : 1950 Gender : Female Race : ORD : [id number] Procedure Date : Feb 24 2022 10:59:01 Edit Date : Mar 01 2022 13:43:37 Diagnosis: SINUS BRADYCARDIA LEFT AXIS DEVIATION ABNORMAL ECG Confirmed by JHON JO M.D. ([id number]) on 03/01/2022 1:40:04 PM Test Reason : Location : [facility] : [place] [address] Overread By : JHON JO M.D. Edited By : JHON JO M.D. Referred By : Milagros VERA Acquired by : OBIMay [facility] HISTORY PHYSICALon HISTORY PHYSICAL HNO ID: [id number] Author: Karson Monte APRN.LENO SEWER Service: ? Author Type: Nurse Practitioner Type: HANDP Filed: 02/27/2022 9:46 AM Note Text: HISTORY AND PHYSICAL EXAMINATION SERVICE DATE: 02/24/2022 SERVICE TIME: 9:46 AM PRIMARY CARE PHYSICIAN: Monika Lehman MD REASON FOR VISIT: Dianelys Womack is a 71 year old female who is scheduled for Procedure(s): COMBINED CO2 COLONOSCOPY AND LAPAROSCOPY (N/A) TAMIS EXC RECTAL TUMOR TRANSANAL MINIMALLY INVASIVE SURGERY (N/A) at the request of Dr. Milagros Vera for consultation. My final recommendation will be communicated back to the requesting physician by way of shared medical record or letter. Subjective The patient has the following: ACTIVE PROBLEM LIST Primary Hypertension Hypothyroidism Gastroesophageal Reflux Disease Without Esophagitis Chronic Renal Impairment, Stage 2 (Mild) History of Anesthesia Complications Cva (Cerebral Vascular Accident) (Hcc) Former Smoker Thoracoabdominal Aneurysm Anxiety and Depression Difficult Intubation History of Difficult Intubation COVID-19 Immunization Status Overdue - COVID-19 VACCINE (4 - Booster for Pfizer series) Overdue since 03/11/2021 01/14/2021 Imm Admin: COVID-19 vaccine, age 12+ yr (PFIZER-BIONTECH - PURPLE TOP) 04/14/2020 Imm Admin: COVID-19 vaccine, age 12+ yr (PFIZER-BIONTECH - PURPLE TOP) 03/24/2020 Imm Admin: COVID-19 vaccine, age 12+ yr (PFIZER-BIONTECH - PURPLE TOP) Patient reports being fully vaccinated against COVID-19. Patient reports no prior COVID-19 infections. CHIEF COMPLAINT: Pre-Op Visit HPI: 71 year old female who has Rectal Mass seen for PACC. She states having abdominal pain rates pain 5/10 and bloody stools at time. She had a colonoscopy performed on 12/06/2021 a polypoid large rectal mass 2 cm was found. This was biopsied to reveal superficial fragments of traditional serrated adenoma. Scheduled for COMBINED CO2 COLONOSCOPY AND LAPAROSCOPY TAMIS EXC RECTAL TUMOR TRANSANAL MINIMALLY INVASIVE SURGERY on 03/03/22. Denies any fever, chills, nausea, vomiting, SOB, dizziness, lightheadedness, palpitations, syncope or chest pain. She has elected to proceed with the surgical procedure. REVIEW OF SYSTEMS: General: No weight loss, malaise or fevers. Neurological: Positive for: strokes (2004). Patient's stroke is without residual deficits. Negative for: seizures and TIA. Respiratory: Positive for: tobacco use (Former smoker on and off 15 years 1 PPD. Quit 2011). Negative for: asthma, bronchitis, COPD, prior COVID-19 infection, current cough, dyspnea, orthopnea, pneumonia within 6 weeks, URI < 2 weeks and obstructive sleep apnea. Cardiovascular: + Palpitations and Fluttering denies at this time Positive for: hypertension Negative for: AICD/PPM, anticoagulation therapy, atrial fibrillation, CAD, chest pain, congenital heart defect, DVT/PE, hyperlipidemia and murmur/valvular heart disease. GI: See HPI. Positive for: abdominal pain, GERD, liver disease (Fatty liver) and history of polyps Negative for: colon cancer, diverticulitis, hepatitis, pancreatitis and rectal cancer. : No history of dysuria, frequency or incontinence, stones or chronic kidney disease. No difficulty urinating, nocturia > 1 time per night or hematuria. Endocrine: No history of diabetes. Has not taken steroids within the past 30 days. No history of endocrinological symptoms or problems. Positive for: hypothyroidism. Negative for: diabetes mellitus. Hematology: No history of bleeding or clotting disorder. Patient is not taking anti-coagulation or platelet medications. No history of hematological symptoms or problems. Oncology: No history of CA metastasis, chemo within 30 days, or radiotherapy within 90 days. No history of oncological symptoms or problems. Psych: Positive for: anxiety and depression. Negative for: bipolar disorder and drug dependency. Musculoskeletal: Positive for: back pain. Negative for: joint pain. Skin: Negative for lesions, rash and itching. PAST MEDICAL HISTORY Diagnosis Date Anxiety and depression 02/24/2022 Arrhythmia heart arrhythima Arthritis CKD (chronic kidney disease) stage 3, GFR 30-59 ml/min (HCC) Difficult airway for intubation Difficult intubation 02/24/2022 Fatty liver Former smoker 02/24/2022 Hard to intubate History of difficult intubation 02/24/2022 Hypertension Neuropathy Stroke (HCC) 2005 Thoracoabdominal aneurysm Thyroid disease PAST SURGICAL HISTORY Procedure Laterality Date ABDOMINAL SURGERY HX REMOVAL GALLBLADDER VAGINAL HYSTERECTOMY FAMILY HISTORY Problem Relation Age of Onset other (brain issues? deteriation of cerabellum) Mother Social History Tobacco Use Smoking status: Former Types: Cigarettes Quit date: 2011 Years since quittin.0 Smokeless tobacco: Never Vaping Use Vaping Use: Never used Substance Use Topics Alcohol use: Never D (more content not included)... Normal [facility] TYPE AND SCREEN,30 DAYon ABO O Normal [facility] Comment on above: Order Comment: Speci men Type: BLOOD SPECIMEN [facility] Address: [address] [place] [address] Performed By: #### T SCR30 #### [facility] CLIA [id number] [address] HISTORICAL AB SCR STATUS Negative Normal [facility] Comment on above: Order Comment: Speci men Type: BLOOD SPECIMEN [facility] Address: [address] [place] [address] Performed By: #### T SCR30 #### [facility] CLIA [id number] [address] [place] Rh Nom (Bld) Positive Normal [facility] Comment on above: Order Comment: Speci men Type: BLOOD SPECIMEN [facility] Address: [address] [place] [address] Performed By: #### T SCR30 #### [facility] CLIA [id number] [address] CNOVon 01-12-2022 CNOV Office Visit ([facility]) ---- DIANELYS WOMACK ([id number]) 1950 F Date Time Provider Department 01/12/22 9:30 AM Milagros VERA [facility] During your visit today, we recorded the following information about you: Temperature Pulse Blood pressure Weight 97.4 degrees 107/minute 152/107 71.9 kg Height 1.575 m Milagros Vera MD 01/12/2022 10:34 AM Signed COLORECTAL SURGERY New Patient Visit January 04, 2022 Chief Complaint: rectal lesion History of Present Illness: Dianelys Womack is a 71 year old female referred by Dr Tejeda who underwent colonoscopy on 12.06.2021 for the reason of abdominal pain, and diarrhea. She was found to have a polypoid large rectal mass 2 cm from the dentate line. This was biopsied to reveal superficial fragments of traditional serrated adenoma 12.06.2021 Colonoscopy Findings: The perianal and digital rectal examinations were normal. A polypoid large mass was found in the rectum 2 cm from the dentate line. The mass was partially circumferential (involving one-half of the lumen circumference). In addition, its diameter measured twenty-nine to thirty mm. Biopsies were taken with a cold forceps for histology. No additional abnormalities were found on retroflexion. 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 - Despite water immersion technique manual pressure supine position and changing scope to smaller GIF scope, endoscope could not be advanced safely. - Rule out malignancy, tumor in the rectum. Biopsied. Pathology A. Rectum, mass, biopsy: - Superficial fragments of traditional serrated adenoma PAST MEDICAL HISTORY Diagnosis Date Arrhythmia heart arrhythima Arthritis CKD (chronic kidney disease) stage 3, GFR 30-59 ml/min (HCC) Difficult airway for intubation Fatty liver Hard to intubate Hypertension Neuropathy Stroke (HCC) 2004 Thoracoabdominal aneurysm Thyroid disease PAST SURGICAL HISTORY Procedure Laterality Date ABDOMINAL SURGERY HX REMOVAL GALLBLADDER VAGINAL HYSTERECTOMY Current Outpatient Medications Medication Sig Dispense Refill Lactobacillus acidophilus (PROBIOTIC ORAL) Take by mouth once daily. amLODIPine (NORVASC) 5 mg tablet Take 5 mg by mouth once daily. gabapentin (NEURONTIN) 600 mg tablet twice daily. traMADol (ULTRAM) 50 mg tablet as needed. KLOR-CON M20 20 mEq tablet Take 20 mEq by mouth twice daily. levothyroxine (SYNTHROID) 200 mcg tablet once daily. folic acid 1 mg tablet once daily. cetirizine (ZYRTEC) 10 mg tablet Take by mouth as needed. vitamin B complex (B COMPLEX ORAL) Take by mouth. ondansetron (ZOFRAN) 4 mg tablet as needed. No current facility-administer ed medications for this visit. ALLERGIES Allergen Reactions Ciprofloxacin Unknown Flagyl [Metronidazo* Unknown Levofloxacin Unknown Penicillins Unknown, Other: See Comments Seasonal Allergies Unknown Soy Unknown Vancomycin Unknown Review of Systems / PACC screen: Do you have difficulty climbing a full flight of stairs without feeling short of breath? no Do you require oxygen for your breathing or have your gone to an emergency department because of breathing problems? no Are you on dialysis or have you been told that your kidneys do not work well as they should? yes CKD stage 3 Do have an implanted cardiac device (pacemaker, defibrillator etc.) that has not been checked in the last 6 months? no Have you had an organ transplant? no Have you been told that you had excessive bleeding during surgical procedures or do you take blood thinning medications other than aspirin? no Have you ever had a heart attack, heart stents/surgery, valve problems, or other heart problems? yes heart arrhythmia (patient states her heart skips a beat), HTN, thoracoabdominal aneurysm Have you had a stroke, seizures, or unexplained loss of consciousness? Yes hx of stroke 2005 Do you have a neurologic condition like Parkinson's disease or multiple sclerosis? no Have you or a blood relative had a life-threatening reaction to anesthesia? no Do you have cirrhosis of the liver or other liver disease? yes fatty liver Have you had a blood clot within the past year? no Do you take insulin or other injections for diabetes? no Do you have sleep apnea or have you been told you may have sleep apnea? no Do you have other implanted devices (deep brain stimulator, spinal cord stimulator, etc.)? no Physical Exam: Pulse 107 Temp 36.3 ?C (97.4 ?F) (Temporal) Ht 157.5 cm (5' 2 ) Wt 71.9 kg (158 lb 8 oz) SpO2 97% BMI 28.99 kg/m? General Appearance: Well appearing, alert, in no acute distress, well-hydrated, well nourished. Lungs: Lungs clear to auscultation. No wheezing, rhonchi, rales. Heart: RRR without murmur, gallop, or rubs. No ectopy Edema: no Abdomen: Normal abdominal exam, Abdomen soft, (more content not included)... Normal [facility] HISTORY PHYSICALon 2 HISTORY PHYSICAL HNO ID: [id number] Author: Milagros Vera MD Service: ? Author Type: Physician Type: HANDP Filed: 01/12/2022 10:34 AM Note Text: COLORECTAL SURGERY New Patient Visit January 04, 2022 Chief Complaint: rectal lesion History of Present Illness: Dianelys Womack is a 71 year old female referred by Dr Tejeda who underwent colonoscopy on 12.06.2021 for the reason of abdominal pain, and diarrhea. She was found to have a polypoid large rectal mass 2 cm from the dentate line. This was biopsied to reveal superficial fragments of traditional serrated adenoma 12.06.2021 Colonoscopy Findings: The perianal and digital rectal examinations were normal. A polypoid large mass was found in the rectum 2 cm from the dentate line. The mass was partially circumferential (involving one-half of the lumen circumference). In addition, its diameter measured twenty-nine to thirty mm. Biopsies were taken with a cold forceps for histology. No additional abnormalities were found on retroflexion. 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 - Despite water immersion technique manual pressure supine position and changing scope to smaller GIF scope, endoscope could not be advanced safely. - Rule out malignancy, tumor in the rectum. Biopsied. Pathology A. Rectum, mass, biopsy: - Superficial fragments of traditional serrated adenoma PAST MEDICAL HISTORY Diagnosis Date Arrhythmia heart arrhythima Arthritis CKD (chronic kidney disease) stage 3, GFR 30-59 ml/min (HCC) Difficult airway for intubation Fatty liver Hard to intubate Hypertension Neuropathy Stroke (HCC) 2004 Thoracoabdominal aneurysm Thyroid disease PAST SURGICAL HISTORY Procedure Laterality Date ABDOMINAL SURGERY HX REMOVAL GALLBLADDER VAGINAL HYSTERECTOMY Current Outpatient Medications Medication Sig Dispense Refill Lactobacillus acidophilus (PROBIOTIC ORAL) Take by mouth once daily. amLODIPine (NORVASC) 5 mg tablet Take 5 mg by mouth once daily. gabapentin (NEURONTIN) 600 mg tablet twice daily. traMADol (ULTRAM) 50 mg tablet as needed. KLOR-CON M20 20 mEq tablet Take 20 mEq by mouth twice daily. levothyroxine (SYNTHROID) 200 mcg tablet once daily. folic acid 1 mg tablet once daily. cetirizine (ZYRTEC) 10 mg tablet Take by mouth as needed. vitamin B complex (B COMPLEX ORAL) Take by mouth. ondansetron (ZOFRAN) 4 mg tablet as needed. No current facility-administer ed medications for this visit. ALLERGIES Allergen Reactions Ciprofloxacin Unknown Flagyl [Metronidazo* Unknown Levofloxacin Unknown Penicillins Unknown, Other: See Comments Seasonal Allergies Unknown Soy Unknown Vancomycin Unknown Review of Systems / PACC screen: Do you have difficulty climbing a full flight of stairs without feeling short of breath? no Do you require oxygen for your breathing or have your gone to an emergency department because of breathing problems? no Are you on dialysis or have you been told that your kidneys do not work well as they should? yes CKD stage 3 Do have an implanted cardiac device (pacemaker, defibrillator etc.) that has not been checked in the last 6 months? no Have you had an organ transplant? no Have you been told that you had excessive bleeding during surgical procedures or do you take blood thinning medications other than aspirin? no Have you ever had a heart attack, heart stents/surgery, valve problems, or other heart problems? yes heart arrhythmia (patient states her heart skips a beat), HTN, thoracoabdominal aneurysm Have you had a stroke, seizures, or unexplained loss of consciousness? Yes hx of stroke 2005 Do you have a neurologic condition like Parkinson's disease or multiple sclerosis? no Have you or a blood relative had a life-threatening reaction to anesthesia? no Do you have cirrhosis of the liver or other liver disease? yes fatty liver Have you had a blood clot within the past year? no Do you take insulin or other injections for diabetes? no Do you have sleep apnea or have you been told you may have sleep apnea? no Do you have other implanted devices (deep brain stimulator, spinal cord stimulator, etc.)? no Physical Exam: Pulse 107 Temp 36.3 ?C (97.4 ?F) (Temporal) Ht 157.5 cm (5' 2 ) Wt 71.9 kg (158 lb 8 oz) SpO2 97% BMI 28.99 kg/m? General Appearance: Well appearing, alert, in no acute distress, well-hydrated, well nourished. Lungs: Lungs clear to auscultation. No wheezing, rhonchi, rales. Heart: RRR without murmur, gallop, or rubs. No ectopy Edema: no Abdomen: Normal abdominal exam, Abdomen soft, non-tender. Bowel sounds normal. No masses, organomegaly Anorectal: Perianal skin is intact. No erythema, induration or excoriation. palpable lesion. No fissure, fistula or external hemorrhoids. Digital Rectal Exam: Anus: closed Resting tone: NORMAL Squeeze tone: NORMAL Cosmetician pr (more content not included)... [facility] (GASTMN) ---- DIANELYS WOMACK ([id number]) 1950 F Date Time Provider Department 12/24/21 TA[facility] TEJED[facility] During your visit today, we recorded the following information about you: Taz Tejeda MD 12/24/2021 6:32 PM Signed Spoke to Dianelys and reviewed colonoscopy and EGD results. She notes improvement in diarrhea since the colonoscopy. Also previously noted something bulging in and out of her rectum but not since the procedure. Will ask Dr. Vera if he can attempt endoscopic or transanal resection of the polyp Taz Tejeda MD Allergies As of Date: 12/24/2021 Noted Allergy Reaction CIPROFLOXACIN 10/05/2020 16 - Unknown Flagyl (METRONIDAZOLE) 08/04/2016 16 - Unknown LEVOFLOXACIN 03/10/2015 16 - Unknown PENICILLINS 03/10/2015 16 - Unknown 14 - Other: See Comments SEASONAL ALLERGIES 10/05/2020 16 - Unknown SOY 05/16/2015 16 - Unknown VANCOMYCIN 11/17/2021 16 - Unknown Date Reviewed: 12/06/2021 Reviewed by: Anastasia Orlando, RN - Fully Assessed Reason for Visit: Results [95] Problem List As Of Date 12/24/2021 Noted Resolved Primary hypertension [I10] 12/06/2021 Hypothyroidism [E03.9] 12/06/2021 Gastroesophageal reflux disease without esophag*12/06/2021 Chronic renal impairment, stage 2 (mild) [N18.2]12/06/2021 History of anesthesia complications [Z87.898] 12/06/2021 CVA (cerebral vascular accident) (HCC) [I63.9] 12/06/2021 Encounter Status:Closed by TAZ TEJEDA on 12/24/21 Normal [facility] ANES POSTPROC EVALon 022 ANES POSTPROC EVAL HNO ID: [id number] Author: Niko Hernandez MD Service: ? Author Type: Anesthesiologist Type: Anesthesia Postprocedure Evaluation Filed: 12/06/2021 5:30 PM Note Text: POST ANESTHESIA EVALUATION NOTE : 1950 Procedure Summary Date: 12/06/21 Room / Location: Gastroenterology Anesthesia Start: 1105 Anesthesia Stop: 1203 Procedures: COLONOSCOPY DIAGNOSTIC EGD DIAGNOSTIC Diagnosis: Diarrhea, unspecified type Abdominal pain, unspecified abdominal location (Generalized abdominal pain) (Epigastric abdominal pain) Scheduled Providers: Kenton Kapadia MD; Niko Hernandez MD; Colten Persaud APRN.HUMANITIES DEPARTMENT CHAIR Responsible Provider: Niko Hernandez MD Anesthesia Type: general ASA Status: 3 Anesthesia Type: general Airway Type: anesthesia mask Last Vitals Vitals Value Taken Time BP 153/89 12/06/21 1220 Temp 36 ?C (96.8 ?F) 12/06/21 1201 HR SpO2 61 12/06/21 1228 Resp 16 12/06/21 1220 SpO2 98 % 12/06/21 1228 Vitals shown include unvalidated device data. Post Anesthesia Patient Status Patient Evaluation: PACU. PACU/ICU Patient Condition: stable. Neurological Status: aware and responsive. Pulmonary Status: breathing comfortably on room air Airway Control: returned to baseline unsupported. Cardiovascular Status: stable. Pain Management: clinically adequate Postoperative Hydration: acceptable. Intraoperative Events: no significant anesthesia events Recommendation: continue current plan of care. Anesthesia Observations No Documentation SIGNATURE: Niko Hernandez MD PATIENT NAME: Dianelys oWmack DATE: December 06, 2021 TIME: 5:29 PM CSN: [id number] Normal [facility] ANES PRE-OPon 12-06-2021 ANES PRE-OP HNO ID: [id number] Author: Niko Hernandez MD Service: ? Author Type: Anesthesiologist Type: Anesthesia Preprocedure Evaluation Filed: 12/06/2021 10:43 AM Note Text: ANESTHESIOLOGY DAY OF SURGERY NOTE : 1950 Procedure Information Date/Time: 12/06/21 0930 Scheduled providers: Kenton Kapadia MD; Debbi Guerin APRN.HUMANITIES DEPARTMENT CHAIR; Niko Hernandez MD Procedures: COLONOSCOPY DIAGNOSTIC EGD DIAGNOSTIC Location: Gastroenterology Estimated body mass index is 30.11 kg/m? as calculated from the following: Height as of this encounter: 160 cm (5' 3 ). Weight as of this encounter: 77.1 kg (170 lb). Most recent hematocrit and potassium results: Hematocrit 42.2 10/29/2021 Potassium 3.4 10/29/2021 Relevant Problems ANESTHESIA (+) History of anesthesia complications (-) PONV (postoperative nausea and vomiting) CARDIO (+) Primary hypertension (-) CAD (coronary artery disease) ENDO (+) Hypothyroidism GI (+) Gastroesophageal reflux disease without esophagitis -RENAL (+) Chronic renal impairment, stage 2 (mild) NEURO-PSYCH (+) CVA (cerebral vascular accident) ([facility]) (+) History of anesthesia complications PULMONARY (-) Chronic obstructive pulmonary disease (COPD) ([facility]) (-) Recent URI I - PHYSICAL EVALUATION AIRWAY Patient intubated: No. Tracheostomy tube not present Mallampati: II. TM distance: >3 FB. Neck ROM: full ROM without neurological symptoms. Mouth opening: adequate. Short neck: no. Thick neck: no DENTAL Additional exam findings: no II - ANESTHESIA PLAN ASA Score: 3 Anesthetic Plan: general Airway type: anesthesia mask NPO Status: adequate Monitoring plan: standard ASA. Informed Consent Anesthetic risks, benefits, alternatives, personnel and consent discussed: yes. Patient / Responsible Democrat agrees to proceed: yes Patient / Surrogate agrees to blood products: blood products not planned DNR status not reviewed with patient and/or family prior to surgery. Significant changes in the patient condition since the History and Physical, not otherwise documented in primary service progress note: no. Potential Anesthesia issues that may suggest increased risk of complications or contraindication to planned procedure: none. Vitals Value Taken Time BP Pulse Resp Temp 36 ?C (96.8 ?F) 12/06/21 0904 SpO2 No current outpatient medications on file as of 12/06/2021. Facility-Administer ed Medications as of 12/06/2021 Medication Dose Route Frequency - lactated ringers iv infusion 30 mL/hr INTRAVENOUS CONTINUOUS I have interviewed and examined the patient. I have reviewed the medical record and/or the pre-anesthesia evaluation, pertinent labs, and test results. This contains updated information obtained within 48 hours of Surgery/Procedure. SIGNATURE: Niko Hernandez MD PATIENT NAME: Dianelys Womack DATE: December 06, 2021 TIME: 9:07 AM CSN: [id number] Normal [facility] COLONOSCOPY DIAGNOSTICon [facility] Colonoscopyon 12-06-2021 Colonoscopy Q3 Patient Name: Dianelys Womack Procedure Date: 12/06/2021 10:56 AM Date of : 1950 Admit Type: Outpatient Age: 70 Gender: Female Note Status: Finalized Attending MD: Kenton Kapadia MD Procedure: Colonoscopy Indications: Generalized abdominal pain Providers: Kenton Kapadia MD Patient Profile: This is a 70 year old female. Refer to note in patient chart for documentation of history and physical. Last Colonoscopy: 5 years ago. Referring Physician: Taz Tejeda MD (Referring MD) Medicines: General Anesthesia Complications: No immediate complications. Requesting Provider: Procedure: Pre-Anesthesia Assessment: - ASA Grade Assessment: II - A patient with mild systemic disease. After I obtained informed consent, the scope was passed under direct vision. Throughout the procedure, the patient's blood pressure, pulse, and oxygen saturations were monitored continuously. The Endoscope was introduced through the anus with the intention of advancing to the cecum. The scope was advanced to the sigmoid colon before the procedure was aborted. Medications were given. The colonoscopy was unusually difficult due to restricted mobility of the colon, significant looping and the patient's cardiovascular instability (arrhythmia). Successful completion of the procedure was aided by Anesthesia staff assisting with sedation, changing the patient to a supine position, using manual pressure and withdrawing the scope and replacing with the adult endoscope. The rectum was photographed. The quality of the bowel preparation was excellent. The patient tolerated the procedure poorly due to the patient's cardiovascular instability (arrhythmia). Moderate Sedation: MAC Findings: The perianal and digital rectal examinations were normal. A polypoid large mass was found in the rectum 2 cm from the dentate line. The mass was partially circumferential (involving one-half of the lumen circumference). In addition, its diameter measured twenty-nine to thirty mm. Biopsies were taken with a cold forceps for histology. No additional abnormalities were found on retroflexion. 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 - Despite water immersion technique manual pressure supine position and changing scope to smaller GIF scope, endoscope could not be advanced safely. - Rule out malignancy, tumor in the rectum. Biopsied. Estimated Blood Loss: Estimated blood loss: none. Recommendation: - Patient has a contact number available for emergencies. The signs and symptoms of potential delayed complications were discussed with the patient. Return to normal activities tomorrow. Written discharge instructions were provided to the patient. - Resume previous diet. - Continue present medications. - Repeat colonoscopy date to be determined after pending pathology results are reviewed because the examination was incomplete. Procedure Code(s): --- Professional --- 80865, 52, Colonoscopy, flexible; with biopsy, single or multiple Diagnosis Code(s): --- Professional --- D49.0, Neoplasm of unspecified behavior of digestive system R10.84, Generalized abdominal pain CPT copyright 2020 [employer]. All rights reserved. Attending Participation: I personally performed the entire procedure. Scope In: 11:25:59 AM Scope Out: 11:47:49 AM MD Kenton Rowe MD 12/06/2021 11:58:39 AM This report has been signed electronically by Kenton Kapadia MD Number of Addenda: 0 Note Initiated On: 12/06/2021 10:56 AM Normal [facility] EGD DIAGNOSTICon 12-06-2021 [facility] NURSING PROGon 12-06-2021 NURSING PROG HNO ID: [id number] Author: Anastasia Orlando, DELMAR Service: Nursing Author Type: Registered Nurse Type: Nursing Progress Note Filed: 12/06/2021 12:09 PM Note Text: AMBULATORY PATIENT EDUCATION NOTE TOPIC: GI PROCEDURES: Colonoscopy with or without biopsies based on clinical findings Esophagogastroduode noscopy(EGD) with or without biopies based on clinical findings, removal of polyps or lesions READINESS TO LEARN INSTRUCTION PROVIDED TO: Patient, readness to learn accessed prior to procedure COGNITIVE ABILITY: Alert and oriented PTED MOTIVATION TO LEARN: Interested FAMILY SUPPORT: High - Very involved in pt care IPATIENT LEARNS BEST BY: Individual Instruction FACTORS AFFECTING LEARNING: None PHYSICAL LIMITATIONS AFFECTING LEARNING: None LEARNING RESPONSE METHOD OF INSTRUCTION: Individual instruction PATIENT / FAMILY RESPONSE: Verbalizes understanding of: WORSENING CONDITION-Signs and symptoms of a worsening condition that warrant a call to the physician FOLLOW-UP PLAN: Patient instructed to call with any further issues SUPPLEMENTAL MATERIAL: Procedure Discharge Instructions REFERRAL (RECOMMENDATION): None Electronically Signed By: Anastasia Orlando RN Normal [facility] SURGICAL PATHOLOGYon 022 CASE REPORT Normal [facility] Comment on above: Order Comment: Speci men Type: TISSUE SPECIMENOrdering Facility: [facility] Address: [address] [place] [address] Result Comment: Surg ica Pathology Report Case: [id number] Authorizing Provider: Kenton Kapadia MD Collected: 12/06/2021 11:44 AM Ordering Location: Gastroenterology Received: 12/06/2021 03:33 PM Pathologist: Nathaniel Ford MD Specimen: RECTAL BIOPSY, rectal mass r/o CA Performed By: #### S ####[facility] LABCLIA [id number] [address] FINAL DIAGNOSIS Normal [facility] Comment on above: Order Comment: Speci men Type: TISSUE SPECIMENOrdering Facility: [facility] Address: [address] [place] [address] Result Comment: A. R ectum, mass, biopsy: - Superficial fragments of traditional serrated adenoma. Performed By: #### S ####[facility] LABCLIA [id number] [address] FINAL PERFORMING LAB Normal [facility] Comment on above: Order Comment: Speci men Type: TISSUE SPECIMENOrdering Facility: [facility] Address: [address] [place] [address] Result Comment: Diag nostic interpretation performed at [facility], [address] [place] [address] CLIA# [id number] Infant Nanny: Johnny H. Henricks, M.D. Performed By: #### S ####[facility] LABIA [id number] [address] OF [facility] GROSS DESCRIPTION [facility] Comment on above: Order Comment: Speci men Type: TISSUE SPECIMENOrdering Facility: [facility] Address: [address] [place] [address] Result Comment: A. R ECTAL BIOPSY Received in formalin are multiple pieces of pascual, soft tissue aggregating to 1.7 x 0.3 x 0.2 cm. Totally submitted in one cassette. Gross examination performed at [facility], [address] [place] [address] 12/06/2021 9:49 PM Performed By: #### S ####[facility] LABIA [id number] [address] Magdiel 11-29-2021 J[place]AN [place]IE[place] Telephone (GASTPR) ---- DIANELYS WOMACK ([id number]) 1950 F Date Time Provider Department 11/29/21 JESSICA GREEN During your visit today, we recorded the following information about you: Jessica Green RN 11/29/2021 12:49 PM Signed Attempted to reach the patient at the contact number that they provided [phone] (home). 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 Failure to have a responsible adult accompany the patient to their procedure appointment prevents the use of sedation or anesthesia for their procedure; and can result in cancellation of the procedure -NPO instructions were reviewed. -Clear liquids the day before the procedure -Instructions to contact their primary care provider regarding their medications and which medications to stop in preparation for their procedure -Number to call with questions or concerns [phone] Jessica Green RN BSN Allergies As of Date: 11/29/2021 (Not on File) Date Reviewed: Never Reviewed Reason for Visit: Appointment Confirmation [2047] Cmt: Pre-procedure instructions Problem List As Of Date: 11/29/2021 (None) Encounter Status:Closed by JESSICA GREEN on 11/29/21 Normal [facility] Albumin [Mass/volume] in Ser um or PlasmaOrdered By: Chucho Saldaña on 11-17-2021 Albumin [Mass/Vol] 3.6 g/dL 3.2-5.5 [facility] Automated erythrocytes count in urine sediment (number/area)Ordered By: Chucho Saldaña on 11-17-2021 RBC Auto (Urine sed) [#/Area] 0-1 [HPF] 0-4 [facility] Automated leukocytes count i n urine sediment (number/area)Ordered By: Chucho Saldaña on 11-17-2021 WBC Auto (Urine sed) [#/Area] 3-4 [HPF] 0-4 [facility] Basic Metabolic Panelon Anion gap [Moles/Vol] 15.1 mmol/L High 6.0-15.0 [facility] Comment on above: Performed By: #### C BC, LIPASE, BMP, HEPATIC #### [facility] [address] [place] [address] [place] Calcium [Mass/Vol] 10.0 mg/dL Normal 8.2-10.2 [facility] Comment on above: Performed By: #### C BC, LIPASE, BMP, HEPATIC #### [facility] [address] [place] [id number] [place] Chloride [Moles/Vol] 103 mmol/L Normal 95-[address] [facility] Comment on above: Performed By: #### C BC, LIPASE, BMP, HEPATIC #### [facility] [address] [place] [id number] [place] CO2 [Moles/Vol] 27.0 mmol/L Normal 22.0-30.0 [facility] Comment on above: Performed By: #### C BC, LIPASE, BMP, HEPATIC #### [facility] [address] Creatinine [Mass/Vol] 0.86 mg/dL Normal 0.44-1.03 [facility] Comment on above: Performed By: #### C BC, LIPASE, BMP, HEPATIC #### [facility] [address] Creatinine Clr Calc Pharmacy 58.14 [facility] Comment on above: Performed By: #### C BC, LIPASE, BMP, HEPATIC #### [facility] [address] Estimated GFR ( [place] > 60 [facility] Comment on above: Result Comment: GFR estimated reference range: According to KDOQI guidelines, <60 ml/min/1.73m2 is sufficient to diagnose a patient with chronic kidney disease. Performed By: #### C BC, LIPASE, BMP, HEPATIC #### [facility] [address] Estimated GFR (Non- Am > 60 [facility] Comment on above: Performed By: #### C BC, LIPASE, BMP, HEPATIC #### [address] Glucose [Mass/Vol] 95 mg/dL Normal 70-100 [facility] Comment on above: Result Comment: [place] Glucose Reference Range is dependent on time and content of last meal. Glucose of more than 200 mg/dL in a nonstressed, ambulatory subject supports the diagnosis of Diabetes Mellitus. ADA recommended reference range Performed By: #### C BC, LIPASE, BMP, HEPATIC #### [facility] [address] Potassium [Moles/Vol] 3.1 mmol/L Low 3.5-5.1 [facility] Comment on above: Performed By: #### C BC, LIPASE, BMP, HEPATIC #### [address] Sodium [Moles/Vol] 142 mmol/L Normal 136-146 [facility] Comment on above: Performed By: #### C BC, LIPASE, BMP, HEPATIC #### [facility] [address] Urea nitrogen [Mass/Vol] 9 mg/dL Normal 9-23 [facility] Comment on above: Performed By: #### C BC, LIPASE, BMP, HEPATIC #### [facility] [address] Basophils Auto (Bld) [#/Vol] Ordered By: Chucho Saldaña on 11-17-2021 Basophils (Bld) [#/Vol] 0.0 10*3/uL 0.0-0.2 [facility] Basophils/100 WBC Auto (Bld) Ordered By: Chucho Saldaña on 11-17-2021 Basophils/100 WBC (Bld) 0.6 % . [facility] Bilirubin Test strip Ql (U)O rdered By: Chucho Saldaña on 11-17-2021 Bilirubin Ql (U) Negative Negative [facility] Blood hemoglobin measurement (mass/volume)Ordered By: Chucho Saldaña on 11-17-2021 Hemoglobin (Bld) [Mass/Vol] 13.4 g/dL 11.8-15.4 [facility] Blood leukocytes automated c ount (number/volume)Ordered By: Chucho Saldaña on 11-17-2021 WBC (Bld) [#/Vol] 6.4 10*3/uL 4.5-11.[address] [facility] [address] abdomen pelvis wo conon 1 CT abdomen pelvis wo con [facility] [address] [place] [address] [place] [address] CT Scan Report Signed Patient: Dianelys Womack MR#: [id number] 330 : 1950 Acct:[id number] Age/Sex: 70 / F ADM Date: 11/17/21 Loc: ER Room: Type: [facility] ER Attending Dr: Copies to: Chucho Saldaña MD Ordering Provider: Chucho Saldaña MD Date of Service: 11/17/21 CT/CT abdomen pelvis wo con: [facility] CT abdomen and pelvis withoutcontrast TECHNIQUE: Axial imaging with 2-D reconstruction. . The CT exam was performed using one or more the following dose reduction techniques: Automated exposure control, adjustment of the MA and/or Kv according to patient size, or use of the iterative reconstruction technique. COMPARISON:None History: LEFT lower quadrant pain for 9 months. Diarrhea and nausea. Lung bases are unremarkable. Small hiatal hernia present. No intrahepatic biliary duct dilatation. Tiny caudate lobe cyst is redemonstrated. Normal density of the liver parenchyma identified. Cholelithiasis identified. No extrahepatic biliary ductal dilatation identified. There is no splenomegaly or splenic mass identified. No pancreatic mass or ductal dilatation identified. The adrenal glands are unremarkable. No nephrolithiasis or obstructive uropathy is identified. Similar tortuous abdominal aortic aneurysm that measures up to 3.5 cm similar to prior examination. 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 No active leak identified. No significant retroperitoneal abnormalities identified. The small bowel loops are nondistended. The appendix is normal. There is no colonic wall thickening, distention or pericolonic inflammatory changes. Urinary bladder is unremarkable. Reproductive structures are unremarkable. No free intraperitoneal air or fluid is identified. The bony structures are unremarkable. No subcutaneous soft tissue abnormality identified. CT/CT abdomen pelvis wo con IMPRESSION: Stable tortuous 3.5 cm infrarenal fusiform abdominal aortic aneurysm. Small hiatal hernia. Stable tiny hepatic cyst. There are no new findings. No diverticular disease. No colitis. No obstructive uropathy. Impression dictated by: Nick Gimenez M.D.11/17/2021 12:37 PM Dictation Location: [place] [address] Transcribed By: [facility] 11/17/21 1237 Dictated By: Nick Gimenez DO 11/17/21 1227 Signed By: 11/17/21 1237 Normal [facility] Color Auto (U)Ordered By: Swathi Saldaña on 11-17-2021 Color (U) Yellow Yellow [facility] Complete Blood Count Auto Di ffon 11-17-2021 Basophils (Bld) [#/Vol] 0.0 10*3/uL Normal 0.0-0.2 [facility] Comment on above: Result Comment: PERF ORMED BY: [place] [address] PATHOLOGIST STEM PROCESSING MACHINE OPERATOR LISA VERDE M.D. Performed By: #### C BC, LIPASE, BMP, HEPATIC #### [address] Basophils/100 WBC (Bld) 0.6 % Normal . [facility] Comment on above: Performed By: #### C BC, LIPASE, BMP, HEPATIC #### [address] Eosinophils (Bld) [#/Vol] 0.0 10*3/uL Normal 0.0-0.45 [facility] Comment on above: Performed By: #### C BC, LIPASE, BMP, HEPATIC #### [address] Eosinophils/100 WBC (Bld) 0.8 % Normal . [facility] Comment on above: Performed By: #### C BC, LIPASE, BMP, HEPATIC #### [address] Erythrocyte distribution width (RBC) [Ratio] 15.8 % High 11.9-15.3 [facility] Comment on above: Performed By: #### C BC, LIPASE, BMP, HEPATIC #### [address] Hematocrit (Bld) [Volume fraction] 41.7 % Normal 34.0-46.4 [facility] Comment on above: Performed By: #### C BC, LIPASE, BMP, HEPATIC #### [address] Hemoglobin (Bld) [Mass/Vol] 13.4 g/dL Normal 11.8-15.4 [facility] Comment on above: Performed By: #### C BC, LIPASE, BMP, HEPATIC #### [address] Lymphocytes (Bld) [#/Vol] 0.9 10*3/uL Low 1.00-4.8 [facility] Comment on above: Performed By: #### C BC, LIPASE, BMP, HEPATIC #### [facility] [address] [place] [address] [place] Lymphocytes/100 WBC (Bld) 14.4 % Normal . [facility] Comment on above: Performed By: #### C BC, LIPASE, BMP, HEPATIC #### [facility] [address] MCH (RBC) [Entitic mass] 27.3 pg Normal 24.7-34.3 [facility] Comment on above: Performed By: #### C BC, LIPASE, BMP, HEPATIC #### [facility] [address] MCV (RBC) [Entitic vol] 84.9 fL Normal 80-100 [facility] Comment on above: Performed By: #### C BC, LIPASE, BMP, HEPATIC #### [facility] [address] Mean Corpuscular HGB Conc 32.2 g/dL Normal 32.0-35.0 [facility] Comment on above: Performed By: #### C BC, LIPASE, BMP, HEPATIC #### [facility] [address] [place] [address] [place] Monocytes (Bld) [#/Vol] 0.4 10*3/uL Normal 0.0-0.8 [facility] Comment on above: Performed By: #### C BC, LIPASE, BMP, HEPATIC #### [facility] [address] [place] [address] [place] Monocytes/100 WBC (Bld) 7.0 % Normal . [facility] Comment on above: Performed By: #### C BC, LIPASE, BMP, HEPATIC #### [facility] [address] [place] [address] [place] Neutrophils (Bld) [#/Vol] 5.0 10*3/uL Normal 1.8-7.7 [facility] Comment on above: Performed By: #### C BC, LIPASE, BMP, HEPATIC #### [facility] [address] [place] [address] [place] Neutrophils/100 WBC (Bld) 77.2 % Normal . [facility] Comment on above: Performed By: #### C BC, LIPASE, BMP, HEPATIC #### [facility] [address] Nucleated RBC/100 WBC (Bld) [Ratio] 0.0 % Normal 0-0.5 [facility] Comment on above: Performed By: #### C BC, LIPASE, BMP, HEPATIC #### [address] Platelet mean volume (Bld) [Entitic vol] 8.3 fL Normal 6.3-10.7 [facility] Comment on above: Performed By: #### C BC, LIPASE, BMP, HEPATIC #### [address] Platelets (Bld) [#/Vol] 203 10*3/uL Normal 150-450 [facility] Comment on above: Performed By: #### C BC, LIPASE, BMP, HEPATIC #### [address] RBC (Bld) [#/Vol] 4.91 10*6/uL Normal 3.60-5.00 [facility] Comment on above: Performed By: #### C BC, LIPASE, BMP, HEPATIC #### [address] WBC (Bld) [#/Vol] 6.4 10*3/uL Normal 4.5-11.0 [facility] Comment on above: Performed By: #### C BC, LIPASE, BMP, HEPATIC #### [address] Creatinine and Glomerular fi ltration rate.predicted panel (S/P/Bld)Ordered By: Chucho Saldaña on 11-17-2021 Creatinine [Mass/Vol] 0.86 mg/dL 0.44-1.03 [facility] Dipstick and Microscopicon 1 Appearance (U) Clear Normal Clear [facility] Comment on above: Order Comment: Name Collection Type:: Clean-Voided Midstream Performed By: #### A DDONUAPLUS #### [facility] [address] [place] [address] [place] Bacteria,Urine None Seen Normal None Seen [facility] Comment on above: Order Comment: Name Collection Type:: Clean-Voided Midstream Performed By: #### A DDONUAPLUS #### [facility] [address] [place] [address] [place] Bilirubin,Urine Negative Normal Negative [facility] Comment on above: Order Comment: Name Collection Type:: Clean-Voided Midstream Performed By: #### A DDONUAPLUS #### [place] [address] [place] Color (U) Yellow Normal Yellow [facility] Comment on above: Order Comment: Name Collection Type:: Clean-Voided Midstream Performed By: #### A DDONUAPLUS #### [place] [address] [place] Glucose Ql (U) Normal Normal Normal [facility] Comment on above: Order Comment: Name Collection Type:: Clean-Voided Midstream Performed By: #### A DDONUAPLUS #### [facility] [address] [place] [address] [place] Hyaline Casts,Urine 0-8 Normal 0-8 [facility] Comment on above: Order Comment: Name Collection Type:: Clean-Voided Midstream Result Comment: PERF ORMED BY: [place] [address] PATHOLOGIST STEM PROCESSING MACHINE OPERATOR LISA VERDE M.D. Performed By: #### A DDONUAPLUS #### [facility] [address] [place] [address] [place] Ketones Ql (U) Trace High Negative [facility] Comment on above: Order Comment: Name Collection Type:: Clean-Voided Midstream Performed By: #### A DDONUAPLUS #### [facility] [address] [place] [address] [place] Leukocyte esterase Test strip Ql (U) 1+ High Negative [facility] Comment on above: Order Comment: Name Collection Type:: Clean-Voided Midstream Performed By: #### A DDONUAPLUS #### [place] [address] [place] Nitrite,Urine Negative Normal Negative [facility] Comment on above: Order Comment: Name Collection Type:: Clean-Voided Midstream Performed By: #### A DDONUAPLUS #### [address] Occult Blood,Urine Trace High Negative [facility] Comment on above: Order Comment: Name Collection Type:: Clean-Voided Midstream Result Comment: PERF ORMED BY: [place] [address] PATHOLOGIST STEM PROCESSING MACHINE OPERATOR LISA VERDE M.D. Performed By: #### A DDONUAPLUS #### [address] pH (U) 7.5 [pH] Normal 5.0-9.0 [facility] Comment on above: Order Comment: Name Collection Type:: Clean-Voided Midstream Performed By: #### A DDONUAPLUS #### [place] [address] [place] Protein,Urine Trace High Negative [facility] Comment on above: Order Comment: Name Collection Type:: Clean-Voided Midstream Performed By: #### A DDONUAPLUS #### [place] [address] [place] RBC LM.HPF (Urine sed) [#/Area] 0 /[HPF] Normal 0-4 [facility] Comment on above: Order Comment: Name Collection Type:: Clean-Voided Midstream Performed By: #### A DDONUAPLUS #### [place] [address] [place] Specificy [place],Urine 1.013 Normal 1.001-1.030 [facility] Comment on above: Order Comment: Name Collection Type:: Clean-Voided Midstream Performed By: #### A DDONUAPLUS #### [place] [address] [place] Squamous Epithelial Cell,Urine 0-1 Normal 0-2 [facility] Comment on above: Order Comment: Name Collection Type:: Clean-Voided Midstream Performed By: #### A DDONUAPLUS #### [facility] [address] Urobilinogen,Urine Normal Normal Normal [facility] Comment on above: Order Comment: Name Collection Type:: Clean-Voided Midstream Performed By: #### A DDONUAPLUS #### [facility] [address] WBC,Urine 3-4 Normal 0-4 [facility] Comment on above: Order Comment: Name Collection Type:: Clean-Voided Midstream Performed By: #### A DDONUAPLUS #### [facility] [address] Direct bilirubin measurement Ordered By: Chucho Saldaña on 11-17-2021 Bilirubin.direct [Mass/Vol] 0.1 mg/dL 0.0-0.4 [facility] Eosinophils Auto (Bld) [#/Vo l]Ordered By: Chucho Saldaña on 11-17-2021 Eosinophils (Bld) [#/Vol] 0.0 10*3/uL 0.0-0.45 [facility] Eosinophils/100 WBC Auto (Bl d)Ordered By: Chucho Saldaña on 11-17-2021 Eosinophils/100 WBC (Bld) 0.8 % . [facility] Erythrocyte distribution wid th Auto (RBC) [Ratio]Ordered By: Chucho Saldaña on 11-17-2021 Erythrocyte distribution width (RBC) [Ratio] 15.8 % 11.9-15.3 [facility] Estimated glomerular filtrat ion rate (GFR) non- AmericanOrdered By: Chucho Saldaña on 11-17-2021 GFR/1.73 sq M.predicted among non-blacks MDRD (S/P/Bld) [Vol rate/Area] > 60 mL/Min [facility] Globulin Calc (S) [Mass/Vol] Ordered By: Chucho Saldaña on 11-17-2021 Globulin (S) [Mass/Vol] 3.6 g/dL [facility] Hematocrit Auto (Bld) [Volum e fraction]Ordered By: Chucho Saldaña on 11-17-2021 Hematocrit (Bld) [Volume fraction] 41.7 % 34.0-46.4 [facility] Hepatic Panelon 11-17-2021 Albumin [Mass/Vol] 3.6 g/dL Normal 3.2-5.5 [facility] Comment on above: Performed By: #### C BC, LIPASE, BMP, HEPATIC #### [facility] [address] Albumin/Globulin [Mass ratio] 1.0 {ratio} Normal [facility] Comment on above: Performed By: #### C BC, LIPASE, BMP, HEPATIC #### [facility] [address] ALP [Catalytic activity/Vol] 121 U/L High - [facility] Comment on above: Performed By: #### C BC, LIPASE, BMP, HEPATIC #### [facility] [address] ALT [Catalytic activity/Vol] 25 U/L Normal [facility] Comment on above: Performed By: #### C BC, LIPASE, BMP, HEPATIC #### [facility] [address] AST [Catalytic activity/Vol] 34 U/L Normal [facility] Comment on above: Performed By: #### C BC, LIPASE, BMP, HEPATIC #### [facility] [address] Bilirubin [Mass/Vol] 0.7 mg/dL Normal 0.3-1.[address] [facility] Comment on above: Performed By: #### C BC, LIPASE, BMP, HEPATIC #### [facility] [address] [place] [address] [place] Bilirubin,Indirect 0.6 mg/dL Normal [facility] Comment on above: Performed By: #### C BC, LIPASE, BMP, HEPATIC #### [facility] [address] Bilirubin.indirect [Mass/Vol] 0.1 mg/dL Normal 0.0-0.4 [facility] Comment on above: Performed By: #### C BC, LIPASE, BMP, HEPATIC #### [facility] [address] Globulin (S) [Mass/Vol] 3.6 g/dL Normal [facility] Comment on above: Performed By: #### C BC, LIPASE, BMP, HEPATIC #### [facility] [address] Protein [Mass/Vol] 7.2 g/dL Normal 6.1-7.9 [facility] Comment on above: Performed By: #### C BC, LIPASE, BMP, HEPATIC #### [facility] [address] Ketones Auto test strip (U) [Mass/Vol]Ordered By: Chucho Saldaña on 11-17-2021 Ketones (U) [Mass/Vol] Trace Negative [facility] - Chemistry and C hemistry - challengeOrdered By: Chucho Saldaña on 11-17-2021 Lipase [Catalytic activity/Vol] 26.0 U/L [facility] - Hematology and Cell countsOrdered By: Chucho Saldaña on 11-17-2021 Nucleated RBC/100 WBC (Bld) [Ratio] 0.0 % 0-0.5 [facility] - UrinalysisOrder ed By: Chucho Saldaña on 11-17-2021 Hyaline casts LM Ql (Urine sed) 0-8 [LPF] 0-8 [facility] Lipaseon 11-17-2021 Lipase [Catalytic activity/Vol] 26.0 U/L Normal [facility] Comment on above: Result Comment: PERF ORMED BY: [place] [address] PATHOLOGIST STEM PROCESSING MACHINE OPERATOR LISA VERDE M.D. Performed By: #### C BC, LIPASE, BMP, HEPATIC #### [facility] [address] [place] [address] Lymphocytes Auto (Bld) [#/Vo l]Ordered By: Chucho Saldaña on 11-17-2021 Lymphocytes (Bld) [#/Vol] 0.9 10*3/uL 1.00-4.8 [facility] Lymphocytes/100 WBC Auto (Bl d)Ordered By: Chucho Saldaña on 11-17-2021 Lymphocytes/100 WBC (Bld) 14.4 % . [facility] MCH Auto (RBC) [Entitic mass ]Ordered By: Chucho Saldaña on 11-17-2021 MCH (RBC) [Entitic mass] 27.3 pg 24.7-34.3 [facility] MCHC Auto (RBC) [Mass/Vol]Or dered By: Chucho Saldaña on 11-17-2021 MCHC (RBC) [Mass/Vol] 32.2 g/dL 32.0-35.0 [facility] MCV Auto (RBC) [Entitic vol] Ordered By: Chucho Saldaña on 11-17-2021 MCV (RBC) [Entitic vol] 84.9 fL 80-100 [facility] Monocytes Auto (Bld) [#/Vol] Ordered By: Chucho Saldaña on 11-17-2021 Monocytes (Bld) [#/Vol] 0.4 10*3/uL 0.0-0.8 [facility] Monocytes/100 WBC Auto (Bld) Ordered By: Chucho Saldaña on 11-17-2021 Monocytes/100 WBC (Bld) 7.0 % . [facility] Neutrophils Auto (Bld) [#/Vo l]Ordered By: Chucho Saldaña on 11-17-2021 Neutrophils (Bld) [#/Vol] 5.0 10*3/uL 1.8-7.7 [facility] Neutrophils/100 WBC Auto (Bl d)Ordered By: Chucho Saldaña on 11-17-2021 Neutrophils/100 WBC (Bld) 77.2 % . [facility] Nitrite Test strip Ql (U)Ord ered By: Chucho Saldaña on 11-17-2021 Nitrite Ql (U) Negative Negative [facility] No Panel InformationOrdered By: Chucho Saldaña on 11-17-2021 Estimated GFR () > 60 mL/Min [facility] Comment on above: GFR estimated refere nce range: According to KDOQI guidelines, <60 ml/min/1.73m2 is sufficient to diagnose a patient with chronic kidney disease. Pharmacy Creatinine Clearance (Chem 58.14 [facility] Platelet mean volume Auto (B ld) [Entitic vol]Ordered By: Chucho Saldaña on 11-17-2021 Platelet mean volume (Bld) [Entitic vol] 8.3 fL 6.3-10.7 [facility] Platelets Auto (Bld) [#/Vol] Ordered By: Chucho Saldaña on 11-17-2021 Platelets (Bld) [#/Vol] 203 10*3/uL 150-450 [facility] Protein Auto test strip (U) [Mass/Vol]Ordered By: Chucho Saldaña on 11-17-2021 Protein (U) [Mass/Vol] Trace mg/dL Negative [facility] Protein [Mass/volume] in Ser um or PlasmaOrdered By: Chucho Saldaña on 11-17-2021 Protein [Mass/Vol] 7.2 g/dL 6.1-7.9 [facility] RBC Auto (Bld) [#/Vol]Ordere d By: Chucho Saldaña on 11-17-2021 RBC (Bld) [#/Vol] 4.91 10*6/uL 3.60-5.00 [facility] Serum or plasma alanine harris otransferase measurement without P-5'-P (enzymatic activiOrdered By: Chucho Saldaña on 11-17-2021 ALT No additional P-5'-P [Catalytic activity/Vol] 25 U/L [facility] Serum or plasma albumin/glob ulin mass ratioOrdered By: Chucho Saldaña on 11-17-2021 Albumin/Globulin [Mass ratio] 1.0 {ratio} [facility] Serum or plasma alkaline suzanne sphatase measurement (enzymatic activity/volume)Ordered By: Chucho Saldaña on 11-17-2021 ALP [Catalytic activity/Vol] 121 U/L 32-92 [facility] Serum or plasma anion gap de terminationOrdered By: Chucho Saldaña on 11-17-2021 Anion gap [Moles/Vol] 15.1 mmol/L 6.0-15.0 [facility] Serum or plasma aspartate am inotransferase measurement (enzymatic activity/volume)Ordered By: Chucho Saldaña on 11-17-2021 AST [Catalytic activity/Vol] 34 U/L 1042 [facility] Serum or plasma calcium jannet urement (mass/volume)Ordered By: Chucho Saldaña on 11-17-2021 Calcium [Mass/Vol] 10.0 mg/dL 8.2-10.2 [facility] Serum or plasma chloride yair surement (moles/volume)Ordered By: Chucho Saldaña on 11-17-2021 Chloride [Moles/Vol] 103 mmol/L 95-[address] [facility] Serum or plasma glucose jannet urement (mass/volume)Ordered By: Chucho Saldaña on 11-17-2021 Glucose [Mass/Vol] 95 mg/dL 70-100 [facility] Comment on above: ADA recommended refe rence rangeRandom Glucose Reference Range is dependent on time and content of last meal. Glucose of more than 200 mg/dL in a nonstressed, ambulatory subject supports the diagnosis of Diabetes Mellitus. Serum or plasma non-glucuron idated bilirubin measurement (mass/volume)Ordered By: Chucho Saldaña on 11-17-2021 Bilirubin.indirect [Mass/Vol] 0.6 mg/dL [facility] Serum or plasma potassium me asurement (moles/volume)Ordered By: Chucho Saldaña on 11-17-2021 Potassium [Moles/Vol] 3.1 mmol/L 3.5-5.1 [facility] Serum or plasma sodium measu rement (moles/volume)Ordered By: Chucho Saldaña on 11-17-2021 Sodium [Moles/Vol] 142 mmol/L 136-146 [facility] Serum or plasma total biliru bin measurement (mass/volume)Ordered By: Chucho Saldaña on 11-17-2021 Bilirubin [Mass/Vol] 0.7 mg/dL 0.3-1.[address] [facility] Serum or plasma total carbon dioxide measurement (moles/volume)Ordered By: Chucho Saldaña on 11-17-2021 CO2 [Moles/Vol] 27.0 mmol/L 22.0-30.0 [facility] Serum or plasma urea nitroge n measurement (mass/volume)Ordered By: Chucho Saldaña on 11-17-2021 Urea nitrogen [Mass/Vol] 9 mg/dL 9- [facility] Specific gravity Auto test s trip (U) [Rel density]Ordered By: Chucho Saldaña on 11-17-2021 Specific gravity (U) [Rel density] 1.013 1.001-1.030 [facility] Squamous epithelial cells de tection in urine sediment by light microscopyOrdered By: Chucho Saldaña on 11-17-2021 Epithelial cells.squamous LM Ql (Urine sed) 0-1 [HPF] 0-2 [facility] Urine bacteria detection by automated methodOrdered By: Chucho Saldaña on 11-17-2021 Bacteria Auto Ql (U) None seen None Seen [facility] Urine clarity by refractomet ry automatedOrdered By: Chucho Saldaña on 11-17-2021 Clarity Refractometry automated (U) Clear Clear [facility] Urine glucose measurement by automated test strip (mass/volume)Ordered By: Chucho Saldaña on 11-17-2021 Glucose Auto test strip (U) [Mass/Vol] Normal mg/dL Normal [facility] Urine hemoglobin detection b y automated test stripOrdered By: Chucho Saldaña on 11-17-2021 Hemoglobin Auto test strip Ql (U) Trace Negative [facility] Urine leukocyte esterase det ection by automated test stripOrdered By: Chucho Saldaña on 11-17-2021 Leukocyte esterase Auto test strip Ql (U) 1+ Negative [facility] Urobilinogen Auto test strip (U) [Mass/Vol]Ordered By: Chucho Saldaña on 11-17-2021 Urobilinogen (U) [Mass/Vol] Normal mg/dL Normal [facility] pH Auto test strip (U)Ordere d By: Chucho Saldaña on 11-17-2021 pH (U) 7.5 [pH] 5.0-9.0 [facility] CNPNon 11-03-2021 CNPN Telephone (RHODA) ---- DIANELYS WOMACK ([id number]) 1950 F Date Time Provider Department 11/03/21 TAZ TEJEDAAR During your visit today, we recorded the following information about you: Joan JUSTIN 11/03/2021 3:[address] new egd/colonoscopy w MAC orders to be scheduled at Q3 Please contact patient's daughter(Shy) to schedule. # [phone] Keiko Hernandez RN 11/04/2021 9:51 AM Signed Orders pended in this encounter. DELMAR Leon MD 11/05/2021 5:19 PM Signed JOAN- please let her know that new orders have been signed Taz Tejeda MD Allergies As of Date: 11/03/2021 (Not on File) Date Reviewed: Never Reviewed Reason for Visit: Orders [681] Cmt: Egd/Colonoscopy under MAC Primary Visit Diagnosis:Abdominal pain, unspecified abdominal location [R10.9] Other Visit Diagnosis:Diarrhea, unspecified type [R19.7] Order(s):COLONOSCOP Y DIAGNOSTIC [GI11] Order #: [id number] FUTURE EGD DIAGNOSTIC [GI9] Order #: [id number] FUTURE Problem List As Of Date: 11/03/2021 (None) Encounter Status:Closed by TAZ TEJEDA on 11/05/21 Normal [facility] C diff Tox gens Stl Ql VERONICA+p robeon 10-31-2021 C. difficile toxin genes VERONICA+probe Ql (Stl) Negative Normal Negative for C. difficile toxin by PCR [facility] Comment on above: Order Comment: Speci men Type: STOOL SPECIMENOrdering Facility: [facility] Address: [address] [place] [address] Performed By: #### 5 4067-4 ####[facility] LABCLIA [id number] [place] [address] [place] Calprotectin Stl-mCnton - Calprotectin (Stl) [Mass/Mass] 205.7 mg/kg High 0-50 [facility] Comment on above: Order Comment: Speci men Type: STOOL SPECIMENOrdering Facility: [facility] Address: [address] [place] [address] Result Comment: INTE RPRETIVE INFORMATION: Calprotectin, Fecal <50.0 mg/kg : Normal 50.0-120.0 mg/kg: Borderline. Test should be re-evaluated in 4-6 wks. >120.0 mg/kg: Abnormal Performed By: #### 3 8445-3 ####[facility] LABCLIA [id number] [facility]STERN[facility] [id number] STATES OF [facility] CBC panel Auto (Bld)on 10-29 Erythrocyte distribution width (RBC) [Ratio] 15.2 % High 11.5-15.0 [facility] Comment on above: Order Comment: Speci men Type: BLOOD SPECIMENOrdering Facility: [facility] Address: [address] [place] [address] Performed By: #### 5 8410-2 ####[facility] LABCLIA [id number] [place] [address] Hematocrit (Bld) [Volume fraction] 42.2 % Normal 36.0-46.0 [facility] Comment on above: Order Comment: Speci men Type: BLOOD SPECIMENOrdering Facility: [facility] Address: [address] [place] [address] Performed By: #### 5 8410-2 ####[facility] LABIA [id number] [place] [address] Hemoglobin (Bld) [Mass/Vol] 13.2 g/dL Normal 11.5-15.5 [facility] Comment on above: Order Comment: Speci men Type: BLOOD SPECIMENOrdering Facility: [facility] Address: [address] [place] [address] Performed By: #### 5 8410-2 ####[facility] LABIA [id number] [place] [address] MCH (RBC) [Entitic mass] 27.2 pg Normal 26.0-34.0 [facility] Comment on above: Order Comment: Speci men Type: BLOOD SPECIMENOrdering Facility: [facility] Address: [address] [place] [address] Performed By: #### 5 8410-2 ####[facility] LABCLIA [id number] [place] [address] MCHC (RBC) [Mass/Vol] 31.3 g/dL Normal 30.5-36.0 [facility] Comment on above: Order Comment: Speci men Type: BLOOD SPECIMENOrdering Facility: [facility] Address: [address] [place] [address] Performed By: #### 5 8410-2 ####[facility] LABCLIA [id number] [place] [address] MCV (RBC) [Entitic vol] 86.8 fL Normal 80.0-100.0 [facility] Comment on above: Order Comment: Speci men Type: BLOOD SPECIMENOrdering Facility: [facility] Address: [address] [place] [address] Performed By: #### 5 8410-2 ####[facility] LABIA [id number] [place] [address] Nucleated RBC (Bld) [#/Vol] 10*3/uL Normal <0.01 [facility] Comment on above: Order Comment: Speci men Type: BLOOD SPECIMENOrdering Facility: [facility] Address: [address] [place] [address] Performed By: #### 5 8410-2 ####[facility] LABCLIA [id number] [place] [address] Platelet mean volume (Bld) [Entitic vol] 10.0 fL Normal 9.0-12.7 [facility] Comment on above: Order Comment: Speci men Type: BLOOD SPECIMENOrdering Facility: [facility] Address: [address] [place] [address] Performed By: #### 5 8410-2 ####[facility] LABCLIA [id number] [place] [address] Platelets (Bld) [#/Vol] 187 10*3/uL Normal 150-400 [facility] Comment on above: Order Comment: Speci men Type: BLOOD SPECIMENOrdering Facility: [facility] Address: [address] [place] [address] Performed By: #### 5 8410-2 ####[facility] LABCLIA [id number] [place] [address] RBC (Bld) [#/Vol] 4.86 10*6/uL Normal 3.90-5.[address] [facility] Comment on above: Order Comment: Speci men Type: BLOOD SPECIMENOrdering Facility: [facility] Address: [address] [place] [address] Performed By: #### 5 8410-2 ####[facility] LABCLIA [id number] [place] [address] WBC (Bld) [#/Vol] 8.51 10*3/uL Normal 3.70-11.[address] [facility] Comment on above: Order Comment: Speci men Type: BLOOD SPECIMENOrdering Facility: [facility] Address: [address] [place] [address] Performed By: #### 5 8410-2 ####[facility] LABCLIA [id number] [place] [address] CELIAC SCREENon 10-29-2021 GLIAD DEAMIDATED IGA QUAL Negative Normal Negative, Test not Indicated [facility] Comment on above: Order Comment: Speci men Type: BLOOD SPECIMENOrdering Facility: [facility] Address: [address] [place] [address] Result Comment: This is used as an aid in diagnosis of celiac disease. Clinical correlation is required. The following results were obtained with an [employer] QUANTA Lite Gliadin IgA BRIANA Gliadin. Gliadin IgA values obtained with different manufacturers' assay methods may not be used interchangeably. The magnitude of the reported IgA levels cannot be correlated to an endpoint titer. Performed By: #### L [id number] ####[facility] LABCLIA [id number] [address] OF [place] Gliadin peptide IgA Qn (S) 4 Units Normal <20 [facility] Comment on above: Order Comment: Magnus montoya Type: BLOOD SPECIMENOrdering Facility: [facility] Address: [address] [place] [address] Performed By: #### L [id number] ####[facility] LABCLIA [id number] [address] [place] INTERPRETATION No serological evidence of celiac disease, however, if celiac disease is clinically suspected and patient is not on gluten-free diet, histological diagnosis may be considered. HLA testing may help with risk assessment. Normal [facility] Comment on above: Order Comment: Magnus montoya Type: BLOOD SPECIMENOrdering Facility: [facility] Address: [address] [place] [address] Performed By: #### L [id number] ####[facility] LABIA [id number] [address] TRANSGLUTAMINASE IGA QUAL Negative Normal Negative, Test not Indicated [facility] Comment on above: Order Comment: Magnus montoya Type: BLOOD SPECIMENOrdering Facility: [facility] Address: [address] [place] [address] Result Comment: The following results were obtained with the [employer] QAUNTA Lite h-tTG IgA BRIANA. h-tTG IgA values obtained with different manufacturers' assay methods may not be used interchangeable. The magnitude of the reported IgA levels cannot be correlated to an endpoint titer. This is used as an aid in diagnosis of celiac disease. Clinical correlation is required. Performed By: #### L [id number] ####[facility] LABCLIA [id number] [address] [place] tTG IgA Qn (S) 8 Units Normal <20 [facility] Comment on above: Order Comment: Magnus montoya Type: BLOOD SPECIMENOrdering Facility: [facility] Address: [address] [place] [address] Performed By: #### L [id number] ####[facility] LABCLIA [id number] [facility] [address] [address] [place] [facility] [place] Comprehensive metabolic 2000 panelon 10-29-2021 Albumin [Mass/Vol] 4.0 g/dL Normal 3.9-4.9 [facility] Comment on above: Order Comment: Speci men Type: BLOOD SPECIMENOrdering Facility: [facility] Address: [address] [place] [address] Performed By: #### 2 4323-8 ####[facility] LABCLIA [id number] [place] [address] ALP [Catalytic activity/Vol] 124 U/L High 34-123 [facility] Comment on above: Order Comment: Speci men Type: BLOOD SPECIMENOrdering Facility: [facility] Address: [address] [place] [address] Performed By: #### 2 4323-8 ####[facility] LABCLIA [id number] [place] [address] ALT [Catalytic activity/Vol] 23 U/L Normal 7-38 [facility] Comment on above: Order Comment: Speci men Type: BLOOD SPECIMENOrdering Facility: [facility] Address: [address] [place] [address] Performed By: #### 2 4323-8 ####[facility] LABCLIA [id number] [place] [address] Anion gap [Moles/Vol] 9 mmol/L Normal 9-18 [facility] Comment on above: Order Comment: Speci men Type: BLOOD SPECIMENOrdering Facility: [facility] Address: [address] [place] [address] Performed By: #### 2 4323-8 ####[facility] LABCLIA [id number] [place] [address] AST [Catalytic activity/Vol] 37 U/L High 13-35 [facility] Comment on above: Order Comment: Speci men Type: BLOOD SPECIMENOrdering Facility: [facility] Address: [address] [place] [address] Performed By: #### 2 4323-8 ####[facility] LABCLIA [id number] [place] [address] Bilirubin [Mass/Vol] 0.5 mg/dL Normal 0.2-1.3 [facility] Comment on above: Order Comment: Speci men Type: BLOOD SPECIMENOrdering Facility: [facility] Address: [address] [place] [address] Performed By: #### 2 4323-8 ####[facility] LABCLIA [id number] [place] [address] Calcium [Mass/Vol] 10.0 mg/dL Normal 8.5-10.2 [facility] Comment on above: Order Comment: Speci men Type: BLOOD SPECIMENOrdering Facility: [facility] Address: [address] [place] [address] Performed By: #### 2 4323-8 ####[facility] LABCLIA [id number] [place] [address] Chloride [Moles/Vol] 105 mmol/L Normal 97-105 [facility] Comment on above: Order Comment: Speci men Type: BLOOD SPECIMENOrdering Facility: [facility] Address: [address] [place], [place] [address] Performed By: #### 2 4323-8 ####[facility] LABCLIA [id number] [place] [address] CO2 [Moles/Vol] 29 mmol/L Normal 22-30 [facility] Comment on above: Order Comment: Speci men Type: BLOOD SPECIMENOrdering Facility: [facility] Address: [address] [place] [address] Performed By: #### 2 4323-8 ####[facility] LABCLIA [id number] [place] [address] Creatinine [Mass/Vol] 1.17 mg/dL High 0.58-0.96 [facility] Comment on above: Order Comment: Magnus montoya Type: BLOOD SPECIMENOrdering Facility: [facility] Address: [address] [place] [address] Performed By: #### 2 4323-8 ####[facility] LABCLIA [id number] [place] [address] ESTIMATED GLOMERULAR FILTRATION RATE 50 mL/min/1.73m??? Low >=60 [facility] Comment on above: Order Comment: Magnus montoya Type: BLOOD SPECIMENOrdering Facility: [facility] Address: [address] [place] [address] Result Comment: Hortencia mated Glomerular Filtration Rate (eGFR) is calculated using the 2020 CKD-EPI creatinine equation. This equation utilizes serum creatinine, sex, and age as parameters. The creatinine assay has traceable calibration to isotope dilution-mass spectrometry. Refer to KDIGO guidelines for clinical interpretation. In patients with unstable renal function, e.g. those with acute kidney injury, the eGFR may not accurately reflect actual GFR. Performed By: #### 2 4323-8 ####[facility] LABCLIA [id number] [place] [address] Glucose [Mass/Vol] 97 mg/dL Normal 74-99 [facility] Comment on above: Order Comment: Magnus montoya Type: BLOOD SPECIMENOrdering Facility: [facility] Address: [address] [place] [address] Result Comment: The [place] Diabetes Association (ADA) provides guidance for cutoff values for fasting glucose and random glucose. The ADA defines fasting as no caloric intake for at least 8 hours. Fasting plasma glucose results between 100 to 125 mg/dL indicate increased risk for diabetes (prediabetes). Fasting plasma glucose results greater than or equal to 126 mg/dL meet the criteria for diagnosis of diabetes. In the absence of unequivocal hyperglycemia, results should be confirmed by repeat testing. In a patient with classic symptoms of hyperglycemia or hyperglycemic crisis, random plasma glucose results greater than or equal to 200 mg/dL meet the criteria for diagnosis of diabetes. Reference: Standards of Medical Care in Diabetes 2016, [place] [employer]. Diabetes Care. 2016.39(Suppl 1). Performed By: #### 2 4323-8 ####[facility] LABCLIA [id number] [place] [address] Potassium [Moles/Vol] 3.4 mmol/L Low 3.7-5.1 [facility] Comment on above: Order Comment: Speci men Type: BLOOD SPECIMENOrdering Facility: [facility] Address: [address] [place] [address] Performed By: #### 2 4323-8 ####[facility] LABCLIA [id number] [place] [address] Protein [Mass/Vol] 6.9 g/dL Normal 6.3-8.0 [facility] Comment on above: Order Comment: Speci men Type: BLOOD SPECIMENOrdering Facility: [facility] Address: [address] [place] [address] Performed By: #### 2 4323-8 ####[facility] LABCLIA [id number] [place] [address] Sodium [Moles/Vol] 143 mmol/L Normal 136-144 [facility] Comment on above: Order Comment: Speci men Type: BLOOD SPECIMENOrdering Facility: [facility] Address: [address] [address] Performed By: #### 2 4323-8 ####[facility] LABCLIA [id number] [place] [address] Urea nitrogen [Mass/Vol] 19 mg/dL Normal 7-21 [facility] Comment on above: Order Comment: Speci men Type: BLOOD SPECIMENOrdering Facility: [facility] Address: [address] [address] Performed By: #### 2 4323-8 ####[facility] LABCLIA [id number] [place] [address] IgA SerPl-mCncon 10-29-2021 IgA [Mass/Vol] 343 mg/dL Normal 70-400 [facility] Comment on above: Order Comment: Speci men Type: BLOOD SPECIMENOrdering Facility: [facility] Address: [address] [place] [address] Performed By: #### 2 458-8 ####[facility] LABCLIA [id number] [place] [address] [place] TSH SerPl-aCncon 10-29-2021 TSH Qn 0.048 m[IU]/L Low 0.270-4.200 [facility] Comment on above: Order Comment: Speci men Type: BLOOD SPECIMENOrdering Facility: [facility] Address: [address] [place] [address] Performed By: #### 3 016-3 ####[facility] LABCLIA [id number] [place] [address] [place] CARDIAC AMAN ADMITon 022 CK [Catalytic activity/Vol] 69 U/L Normal 26-192 [facility] Comment on above: Performed By: #### C JAKUB MOLINA #### [facility] [address] [address] [address] Sheila Mittal CK.MB [Mass/Vol] 2.36 ng/mL Normal <=3.60 [facility] Comment on above: Performed By: #### C JAKUB MOLINA #### [facility] [address] [place], [place] [address] Dr. Sheila Mittal HSTROP 9.5 pg/mL Normal 4.0-51.3 [facility] Comment on above: Result Comment: CUT- OFF POINTS HAVE BEEN ESTABLISHED BASED ON THE FOURTH UNIVERSAL DEFINITIONS OF MYOCARDIAL INFARCTION. THE UPPER REFERENCE LIMIT (URL) OF TROPONIN, DEFINED THE 99TH PERCENTILE OF cTnI DISTRIBUTION IN A REFERENCE POPULATION, HAS BEEN CONFIRMED THE DECISION THRESHOLD FOR IA DIAGNOSIS. Performed By: #### C JAKUB MOLINA #### [facility] [address] [address] [address] Sheila Mittal TEMO 97 ng/mL Critically high 9-82 [facility] Comment on above: Performed By: #### C MP, CMADM #### [facility] [address] [address] [address] Sheila Mittal CBC AUTO DIFFon 10-18-2021 BASO # 0.0 103/ul Normal 0.0-0.1 [facility] Comment on above: Performed By: #### C BC #### [facility] [address] [place] [address] Dr. Sheila Mittal Basophils/100 WBC (Bld) 0.4 % Normal 0.2-2.[address] [facility] Comment on above: Performed By: #### C BC #### [facility] [address] [place] [address] Dr. Sheila Mittal EO # 0.1 103/ul Normal 0.0-0.7 [facility] Comment on above: Performed By: #### C BC #### [facility] [address] [place] [address] Dr. Sheila Mittal Eosinophils/100 WBC (Bld) 1.0 % Normal 0.9-7.0 [facility] Comment on above: Performed By: #### C BC #### [facility] [address] [place] [address] Dr. Sheila Mittal Erythrocyte distribution width (RBC) [Ratio] 15.0 % Normal 11.0-15.0 [facility] Comment on above: Performed By: #### C BC #### [facility] [address] [place] [address] Dr. Sheila Mittal Hematocrit (Bld) [Volume fraction] 45.0 % Normal 36.0-48.0 [facility] Comment on above: Performed By: #### C BC #### [facility] [address] [place] [address] Dr. Sheila Mittal Hemoglobin (Bld) [Mass/Vol] 14.3 g/dL Normal 12.0-16.0 [facility] Comment on above: Performed By: #### C BC #### [facility] [address] [place] [address] Dr. Sheila Mittal IG # 0.04 10e3/ul Critically high 0.00-0.03 [facility] Comment on above: Performed By: #### C BC #### [facility] [address] [place] [address] Dr. Sheila Mittal IG % 0.4 % Normal 0.0-0.5 [facility] Comment on above: Performed By: #### C BC #### [facility] [address] [place] [address] Dr. Sheila Mittal LYMPH # 1.5 103/ul Normal 1.2-3.8 [facility] Comment on above: Performed By: #### C BC #### [facility] [address] [place] [address] Dr. Sheila Mittal Lymphocytes/100 WBC (Bld) 17.0 % Critically low 20.5-60.0 [facility] Comment on above: Performed By: #### C BC #### [facility] [address] [place] [address] Dr. Sheila Mittal MANUAL DIFF REQ NO Normal [facility] Comment on above: Performed By: #### C BC #### [facility] [address] [place] [address] Dr. Sheila Mittal MCH (RBC) [Entitic mass] 27.3 pg Normal 26.7-34.0 [facility] Comment on above: Performed By: #### C BC #### [facility] [address] [place] [address] Dr. Sheila Mittal MCHC (RBC) [Mass/Vol] 31.8 g/dL Normal 29.9-35.2 [facility] Comment on above: Performed By: #### C BC #### [facility] [address] [place] [address] Dr. Sheila Mittal MCV (RBC) [Entitic vol] 85.9 fL Normal 81.0-99.[address] [facility] Comment on above: Performed By: #### C BC #### [facility] [address] [place] [address] Dr. Sheila Mittal MONO # 0.6 103/ul Normal 0.3-0.8 [facility] Comment on above: Performed By: #### C BC #### [facility] [address] [address] [address] Sheila Mittal Monocytes/100 WBC (Bld) 6.6 % Normal 1.7-12.[address] [facility] Comment on above: Performed By: #### C BC #### [facility] [address] [place] [address] Dr. Sheila Mittal NEUT # 6.8 103/ul Critically high 1.4-6.5 [facility] Comment on above: Performed By: #### C BC #### [facility] [address] [place] [address] Dr. Sheila Mittal Neutrophils/100 WBC (Bld) 74.6 % Normal 43.0-75.0 [facility] Comment on above: Performed By: #### C BC #### [facility] [address] [place] [address] Dr. Sheila Mittal Platelet mean volume (Bld) [Entitic vol] 9.3 fL Critically low 9.5-13.5 [facility] Comment on above: Performed By: #### C BC #### [facility] [address] [place] [address] Dr. Sheila Mittal PLT 231 103/ul Normal 150-450 [facility] Comment on above: Performed By: #### C BC #### [facility] [address] [place] [address] Dr. Sheila Mittal RBC 5.24 106/ul Normal 4.20-5.40 [facility] Comment on above: Performed By: #### C BC #### [facility] [address] [place] [address] Dr. Sheila Mittla WBC 9.1 103/ul Normal 4.0-11.0 [facility] Comment on above: Performed By: #### C BC #### [facility] [address] [place] [address] Dr. Sheila Mittal ER URINE PROFILEon 2 Bilirubin Ql (U) SMALL Abnormal NEGATIVE [facility] Comment on above: Performed By: #### Leonardo SLADE UMICRO #### [facility] [address] [place] [address] Dr. Sheila Mittal Clarity (U) SL CLOUDY Abnormal CLEAR [facility] Comment on above: Performed By: #### Leonardo SLADE UMICRO #### [facility] [address] [place] [address] Dr. Sheila Mittal Color (U) YELLOW Normal YELLOW [facility] Comment on above: Performed By: #### Leonardo SLADE UMICRO #### [facility] [address] [place] [address] Dr. Sheila ANGULO A micrscopic examination will be performed if indicated. Normal [facility] Comment on above: Performed By: #### Leonardo SLADE UMICRO #### [facility] [address] [place] [address] Dr. Sheila Mittal Glucose Ql (U) Negative Normal NEGATIVE [facility] Comment on above: Performed By: #### Leonardo SLADE UMICRO #### [facility] [address] [place] [address] Dr. Sheila Mittal Hemoglobin Ql (U) Negative Normal NEGATIVE [facility] Comment on above: Performed By: #### Leonardo SLADE UMICRO #### [facility] [address] [place] [address] Dr. Sheila Mittal Ketones Ql (U) TRACE Abnormal NEGATIVE [facility] Comment on above: Performed By: #### Leonardo SLADE UMICRO #### [facility] [address] [place] [address] Dr. Sheila Mittal LEUKOCYTES TRACE Abnormal NEGATIVE [facility] Comment on above: Performed By: #### Leonardo SLADE UMICRO #### [facility] [address] [place] [address] Dr. Sheila Mittal Nitrite Ql (U) Negative Normal NEGATIVE [facility] Comment on above: Performed By: #### E RUR, UMICRO #### [facility] [address] [place] [address] Dr. Sheila Mittal pH (U) 7.0 [pH] Normal 5-9 [facility] Comment on above: Performed By: #### Leonardo SLADE, UMICRO #### [facility] [address] [place] [address] Dr. Sheila Mittal Protein (U) [Mass/Vol] 100 mg/dL Abnormal NEGAT PATRIZIA/ TRACE [facility] Comment on above: Performed By: #### E BERLIN, UMICRO #### [facility] [address] [place] [address] Dr. Sheila Mittal SPEC GRAVITY 1.015 Normal 1.005-<=1.02 5 [facility] Comment on above: Performed By: #### Leonardo SLADE, UMICRO #### [facility] [address] [place] [address] Dr. Sheila Mittal UR MICRO IND INDICATED Normal [facility] Comment on above: Performed By: #### Leonardo SLADE, UMICRO #### [facility] [address] [place] [address] Dr. Sheila Mittal Urobilinogen Qn (U) 0.2 {Brooke'U}/dL Normal 0.2 - 1. 0 [facility] Comment on above: Performed By: #### Leonardo SLADE, UMICRO #### [facility] [address] [place] [address] Dr. Sheila Mittal LACTATE/LACTIC ACIDon 2021 Lactate [Moles/Vol] 1.9 mmol/L Normal 0.4-1.9 [facility] Comment on above: Performed By: #### L ACT #### [facility] [address] [place] [address] Dr. Sheila Mittal PROF 14(COMP METB)on 022 Albumin [Mass/Vol] 3.8 g/dL Normal 3.4-5.0 [facility] Comment on above: Performed By: #### C MP, CMADM #### [facility] [address] [place] [address] Dr. Sheila Mittal Albumin/Globulin [Mass ratio] 0.8 {ratio} Normal [facility] Comment on above: Performed By: #### C TRACY, JAKUB #### [facility] [address] [address] [address] Sheial Mittal ALP [Catalytic activity/Vol] 155 U/L Critically high 46-116 [facility] Comment on above: Performed By: #### C TRACY, TULIODM #### [facility] [address] [address] [address] Sheila Mittal ALT [Catalytic activity/Vol] 37 U/L Normal 14-59 [facility] Comment on above: Performed By: #### C TRACY, JAKUB #### [facility] [address] [place] [address] Dr. Sheila Mittal Anion gap [Moles/Vol] 13.5 mmol/L Normal [facility] Comment on above: Performed By: #### C JAKUB MOLINA #### [facility] [address] [place] [address] Dr. Sheila Mittal AST [Catalytic activity/Vol] 42 U/L Critically high 15-37 [facility] Comment on above: Performed By: #### C JAKUB MOLINA #### [facility] [address] [place] [address] Dr. Sheila Mtital Bilirubin [Mass/Vol] 0.7 mg/dL Normal 0.2-1.0 [facility] Comment on above: Performed By: #### C TRACY, JAKUB #### [facility] [address] [place] [address] Dr. Sheila Mittal Calcium [Mass/Vol] 10.0 mg/dL Normal 8.5-10.1 [facility] Comment on above: Performed By: #### C JAKUB MOLINA #### [facility] [address] [place] [address] Dr. Sheila Mittal Chloride [Moles/Vol] 103 mmol/L Normal 98-107 [facility] Comment on above: Performed By: #### C JAKUB MOLINA #### [facility] [address] [place] [address] Dr. Sheila Mittal CO2 [Moles/Vol] 29.7 mmol/L Normal 21.0-32.0 [facility] Comment on above: Performed By: #### C TRACY, CMADM #### [facility] [address] [address] [address] Sheila Mittal Creatinine [Mass/Vol] 1.06 mg/dL Critically high 0.55-1.02 [facility] Comment on above: Performed By: #### C TRACY, CMADM #### [facility] [address] [address] [address] Sheila Mittal EGFR-AF COLOMBIAN >60 Normal >=60 [facility] Comment on above: Performed By: #### C TRACY, CMADM #### [facility] [address] [address] [address] Sheila Mittal EGFR-NON AF COLOMBIAN 51 mL/min/1.73m2 Critically low >=60 [facility] Comment on above: Performed By: #### C TRACY, CMADM #### [facility] [address] [address] [address] Sheila Mittal Globulin (S) [Mass/Vol] 4.5 g/dL Normal [facility] Comment on above: Performed By: #### C TRACY, CMADM #### [facility] [address] [address] [address] Sheila Mittal Glucose [Mass/Vol] 104 mg/dL Normal 74-106 [facility] Comment on above: Performed By: #### C TRACY, CMADM #### [facility] [address] [address] [address] Sheila Mittal Potassium [Moles/Vol] 3.2 mmol/L Critically low 3.5-5.1 [facility] Comment on above: Performed By: #### C TRACY, CMADM #### [facility] [address] [address] [address] Sheila Mittal Protein [Mass/Vol] 8.3 g/dL Critically high 6.4-8.[address] [facility] Comment on above: Performed By: #### C TRACY, CMADM #### [facility] [address] [address] [address] Sheila Mittal Sodium [Moles/Vol] 143 mmol/L Normal 136-145 [facility] Comment on above: Performed By: #### C TRACY, CMADM #### [facility] [address] [address] [address] Sheila Mittal Urea nitrogen [Mass/Vol] 10.0 mg/dL Normal 7.0-18.0 [facility] Comment on above: Performed By: #### C TRACY, CMADM #### [facility] [address] [address] [address] Sheila Mittal Urea nitrogen/Creatinine [Mass ratio] 9.4 mg/mg Normal [facility] Comment on above: Performed By: #### C TRACY, CMADM #### [facility] [address] [address] [address] Sheila Mittal URINE MICROSCOPIC ONLYon BACTERIA NONE SEEN Normal NONE SEEN [facility] Comment on above: Performed By: #### Leonardo SLADE UMICRO ####[facility] [id number] [address]Dr. Sheila Mittal Bacteria identified Cx Nom (U) NOT INDICATED Normal [facility] Comment on above: Performed By: #### Leonardo SLADE UMICRO ####[facility] [id number] [address]Dr. Sheila Mittal CAST SEEN Abnormal NONE SEEN [facility] Comment on above: Performed By: #### Leonardo SLADE UMICRO ####[facility] [id number] [address]Dr. Sheila Mittal Crystals LM Nom (Urine sed) NONE SEEN Normal NONE SEEN [facility] Comment on above: Performed By: #### Leonardo SLADE UMICRO ####[facility] [id number] [address]Dr. Sheila Mittal Epithelial cells LM Ql (Urine sed) FEW Abnormal NONE SEEN /RARE [facility] Comment on above: Performed By: #### Leonardo SLADE UMICRO ####[facility] [id number] [place], [place] [address]Xe. Sheila Mittal MUCOUS NONE SEEN Normal NONE SEEN [facility] Comment on above: Performed By: #### OZIEL KULKARNI ####[facility] [id number] [place], [place] [address]Kg. Sheila Mittal RBC NONE SEEN Abnormal 0-2 [facility] Comment on above: Performed By: #### OZIEL KULKARNI ####[facility] [address] [place], [place] [address]Cb. Sheila Mittal WBC 0-2 Abnormal NONE SEEN [facility] Comment on above: Performed By: #### OZIEL KULKARNI ####[facility] [address] [place], [place] [address]Zc. Sheila Mittal XR CHEST 1 Von 10-18-2021 XR CHEST 1 V EXAM: XR CHEST 1 V HISTORY: Nausea and vomiting. COMPARISON: None FINDINGS: The heart, mediastinum, pulmonary vasculature, and bony thorax demonstrate no discrete acute abnormality. There is no evidence of an infiltrate, pleural effusion or pneumothorax. There is mild prominence of the lung markings. IMPRESSION: No evidence of an acute cardiopulmonary abnormality. Electronically authenticated by: DELISA EVANS Date: 2021-10-18 16:27 Normal [facility] Basic Metabolic Panelon 06-0 Calcium [Mass/Vol] 9.6 mg/dL Normal 8.2-10.2 [facility] Comment on above: Performed By: #### U YUDI, PTH, PHOS, BMP, [id number] #### [facility] [address] Chloride [Moles/Vol] 102 mmol/L Normal 95-[address] [facility] Comment on above: Performed By: #### U YUDI, PTH, PHOS, BMP, [id number] #### [facility] [address] [id number] [facility] CO2 [Moles/Vol] 24.2 mmol/L Normal 22.0-30.0 [facility] Comment on above: Performed By: #### U YUDI, PTH, PHOS, BMP, [id number] #### [facility] [address] Creatinine [Mass/Vol] 1.01 mg/dL Normal 0.44-1.03 [facility] Comment on above: Performed By: #### U YUDI, PTH, PHOS, BMP, [id number] #### [address] Estimated GFR ( [place] > 60 Normal [facility] Comment on above: Result Comment: GFR estimated reference range: According to KDOQI guidelines, <60 ml/min/1.73m2 is sufficient to diagnose a patient with chronic kidney disease. Performed By: #### U YUDI, PTH, PHOS, BMP, [id number] #### [address] Estimated GFR (Non- Am 54 [facility] Comment on above: Performed By: #### U YUDI, PTH, PHOS, BMP, [id number] #### [address] Glucose [Mass/Vol] 95 mg/dL Normal 70-100 [facility] Comment on above: Result Comment: [place] Glucose Reference Range is dependent on time and content of last meal. Glucose of more than 200 mg/dL in a nonstressed, ambulatory subject supports the diagnosis of Diabetes Mellitus. ADA recommended reference range Performed By: #### U YUDI, PTH, PHOS, BMP, [id number] #### [address] Potassium [Moles/Vol] 3.2 mmol/L Low 3.5-5.1 [facility] Comment on above: Performed By: #### U YUDI, PTH, PHOS, BMP, [id number] #### [address] Sodium [Moles/Vol] 138 mmol/L Normal 136-146 [facility] Comment on above: Performed By: #### U YUDI, PTH, PHOS, BMP, [id number] #### [address] Urea nitrogen [Mass/Vol] 16 mg/dL Normal 9-23 [facility] Comment on above: Performed By: #### U YUDI, PTH, PHOS, BMP, [id number] #### [facility] [address] [place] [address] [facility] Creatinine and Glomerular fi ltration rate.predicted panel (S/P/Bld)Ordered By: Daniel Ma on 07-15-2021 Creatinine [Mass/Vol] 1.01 mg/dL 0.44-1.03 [facility] Estimated glomerular filtrat ion rate (GFR) non- AmericanOrdered By: Daniel Ma on 07-15-2021 GFR/1.73 sq M.predicted among non-blacks MDRD (S/P/Bld) [Vol rate/Area] 54 mL/Min [facility] No Panel InformationOrdered By: Daniel Ma on 07-15-2021 25-Hydroxy Vitamin D Total 42.9 ng/mL 30-100 [facility] Comment on above: VITAMIN D STATUS 25( [place])VITAMIN D RANGE (ng/mL) Deficient <20 Insufficient 20 to <30 Sufficient 30 to 100 Reference: Jenniffer MF,Neal NC, Mary FERGUSON, et al. Evaluation,treatment, and prevention of vitamin D deficiency; an Endocrine Society clinical practice guideline. JCEM. 2010; 96(7):1911-30. Estimated GFR () > 60 mL/Min [facility] Comment on above: GFR estimated refere nce range: According to KDOQI guidelines, <60 ml/min/1.73m2 is sufficient to diagnose a patient with chronic kidney disease. Pharmacy Creatinine Clearance (Chem N/A [facility] No Panel Informationon 07-15 9.6\S\9.6 Normal 8.2-10.2 -[facility] 3 DO Work Phone: 24.2\S\24.2 Normal 22.0-30.0 -[facility] 3 DO Work Phone: 102\S\102 Normal 95-114 -[place] [address] DO Work Phone: 3.2\S\3.2 Normal 2.5-4.6 [place] [address] DO Work Phone: 138\S\138 Normal 136-146 [place] [address] DO Work Phone: > 60 Normal [place] [address] DO Work Phone: Comment on above: GFR estimated refere nce range: According to KDOQI guidelines, <60 ml/min/1.73m2 is sufficient to diagnose a patient with chronic kidney disease. 54\S\54 Normal [place] [address] DO Work Phone: 1.01\S\1.01 Normal 0.44-1.03 [place] [address] DO Work Phone: 16\S\16 Normal 9-23 [place] [address] DO Work Phone: 95\S\95 Normal 70-100 [place] [address] DO Work Phone: Comment on above: Random Glucose Refer ence Range is dependent on time and content of last meal. Glucose of more than 200 mg/dL in a nonstressed, ambulatory subject supports the diagnosis of Diabetes Mellitus. ADA recommended reference range 4.7\S\4.7 Normal 2.6-7.2 [place] [address] DO Work Phone: 42.9\S\42.9 Normal 30-100 [place] [address] DO Work Phone: Comment on above: VITAMIN D STATUS 25( [place])VITAMIN D RANGE (ng/mL) Deficient <20 Insufficient 20 to <30 Sufficient 30 to 100 Reference: Jenniffer MF,Neal NC, Mary FERGUSON, et al. Evaluation,treatment, and prevention of vitamin D deficiency; an Endocrine Society clinical practice guideline. JCEM. 2010; 96(7):1911-30. 48.8\S\48.8 Normal - -[facility] 3 DO Work Phone: Comment on above: PERFORMED BY:[facility] [place] [place] [id number] MEDICAL DIRECTORLISA VERDE M.D. Parathyroid Hormone Intacton 07-15-2021 Parathyroid Hormone Intact 48.8 pg/mL Normal [facility] Comment on above: Result Comment: PERF ORMED BY: [facility] [address] [place] [id number] PATHOLOGIST STEM PROCESSING MACHINE OPERATOR LISA VERDE M.D. Performed By: #### C BC, LIPASE, BMP, HEPATIC #### [facility] [address] [place] [id number] [facility] Phosphate [Mass/volume] in S wero or PlasmaOrdered By: Daniel Ma on 07-15-2021 Phosphate [Mass/Vol] 3.2 mg/dL 2.5-4.[address] [facility] Phosphoruson 07-15-2021 Phosphate [Mass/Vol] 3.2 mg/dL Normal 2.5-4.[address] [facility] Comment on above: Performed By: #### U YUDI, PTH, PHOS, BMP, [id number] #### [facility] [address] [place] [id number] [place] Serum or plasma calcium jannet urement (mass/volume)Ordered By: Daniel Ma on 07-15-2021 Calcium [Mass/Vol] 9.6 mg/dL 8.2-10.2 [facility] Serum or plasma chloride yair surement (moles/volume)Ordered By: Daniel Ma on 07-15-2021 Chloride [Moles/Vol] 102 mmol/L 95-[address] [facility] Serum or plasma glucose jannet urement (mass/volume)Ordered By: Daniel Ma on 07-15-2021 Glucose [Mass/Vol] 95 mg/dL 70-100 [facility] Comment on above: ADA recommended refe rence range Random Glucose Reference Range is dependent on time and content of last meal. Glucose of more than 200 mg/dL in a nonstressed, ambulatory subject supports the diagnosis of Diabetes Mellitus. Serum or plasma intact parat hyroid hormone measurement (mass/volume)Ordered By: Daniel Ma on 07-15-2021 Parathyrin.intact [Mass/Vol] 48.8 pg/mL [facility] Serum or plasma potassium me asurement (moles/volume)Ordered By: Daniel Ma on 07-15-2021 Potassium [Moles/Vol] 3.2 mmol/L 3.5-5.1 [facility] Serum or plasma sodium measu rement (moles/volume)Ordered By: Daniel Ma on 07-15-2021 Sodium [Moles/Vol] 138 mmol/L 136-146 [facility] Serum or plasma total carbon dioxide measurement (moles/volume)Ordered By: Daniel Ma on 07-15-2021 CO2 [Moles/Vol] 24.2 mmol/L 22.0-30.0 [facility] Serum or plasma urea nitroge n measurement (mass/volume)Ordered By: Daniel Ma on 07-15-2021 Urea nitrogen [Mass/Vol] 16 mg/dL 11-05 [facility] Serum or plasma uric acid me asurement (mass/volume)Ordered By: Daniel Ma on 07-15-2021 Urate [Mass/Vol] 4.7 mg/dL 2.6-7.2 [facility] Uric Acidon 07-15-2021 Urate [Mass/Vol] 4.7 mg/dL Normal 2.6-7.2 [facility] Comment on above: Performed By: #### U YUDI, PTH, PHOS, BMP, [id number] #### [facility] [address] [place] [address] Vitamin D 25 Hydroxy Totalon 07-15-2021 Vitamin D 25 Hydroxy Total 42.9 ng/mL Normal 30-100 [facility] Comment on above: Result Comment: [place] MIN D STATUS 25([place])VITAMIN D RANGE (ng/mL) Deficient <20 Insufficient 20 to <30 Sufficient 30 to 100 Reference: Jenniffer MF,Neal NC, Mary FERGUSON, et al. Evaluation,treatment, and prevention of vitamin D deficiency; an Endocrine Society clinical practice guideline. JCEM. 2010; 96(7):1911-30. Performed By: #### C BC, LIPASE, BMP, HEPATIC #### [facility] [address] [place] [id number] [facility] US aortaon 06-14-2021 US aorta [facility] [address] [place] [address] [place] [id number] Ultrasound Report Signed Patient: Dianelys Womack MR#: [id number] 0 : 1950 Acct:[id number] Age/Sex: 70 / F ADM Date: 06/14/21 Loc: [facility] Room: Type: [facility] Attending Dr: Nick Acosta MD Ordering Provider: Nick Acosta MD Date of Service: 06/14/21 US/US aorta: I71.4 Copies to: Nick Acosta MD Dominant aortic ultrasound Indication for study: Abdominal aortic aneurysm and bilateral iliac artery aneurysms PROCEDURE: Color-flow duplex scanning is used to interrogate the infrarenal abdominal aorta and both iliacs. The infrarenal aorta is stable with the largest distal diameter 4.1 cm. The iliacs are not well visualized at this time due to overlying bowel gas particularly the right iliac which has the known aneurysm of at least 2.8 cm. US/US aorta IMPRESSION: Stable 4.1 cm infrarenal abdominal aortic aneurysm. The Iliacs are not well evaluated today due to overlying bowel gas. Impression dictated by: Nick Acosta M.D.06/14/2021 10:56 AM Dictation Location: [place] [address] Tech: Hellen Haro Transcribed By: AMINA 06/14/21 1056 Dictated By: Nick Acosta MD 06/14/21 1055 Signed By: 06/14/21 1056 [facility] Tobacco Screening.on 022 Adult depression screening assessment No [facility] 250 DO Work Phone: Fall risk assessment b) One or more falls in the last year [facility] 250 DO Work Phone: Tobacco use status [facility] b) No M [facility] 250 DO Work Phone: Vital Signs Date Time Vital Sign Value Performing Clinician Facility 01-20-2023 10:47-0500 Body height 160 cm Daniel Ma MD Work Phone: [facility] 01-20-2023 10:47-0500 Body mass index (BMI) [Ratio] 29.76 kg/m2 Daniel Ma MD Work Phone: [facility] 01-20-2023 10:47-0500 Body weight 76.2 kg Daniel Ma MD Work Phone: [facility] 01-20-2023 10:47-0500 Diastolic blood pressure 79 mm[Hg] Daniel Ma MD Work Phone: [facility] 01-20-2023 10:47-0500 Heart rate 83 /min Daniel Ma MD Work Phone: [facility] 01-20-2023 10:47-0500 Systolic blood pressure 119 mm[Hg] Daniel Ma MD Work Phone: [facility] 11-21-2022 15:31-0400 Body height 160 cm Elinor Raman MD Work Phone: [facility] 11-21-2022 15:31-0400 Body mass index (BMI) [Ratio] 29.58 kg/m2 Elinor Raman MD Work Phone: [facility] 11-21-2022 15:31-0400 Body weight 75.75 kg Elinor Raman MD Work Phone: [facility] 11-21-2022 15:31-0400 Diastolic blood pressure 86 mm[Hg] Elinor Raman MD Work Phone: [facility] 11-21-2022 15:31-0400 Heart rate 82 /min Elinor Raman MD Work Phone: [facility] 11-21-2022 15:31-0400 Systolic blood pressure 112 mm[Hg] Elinor Raman MD Work Phone: [facility] 10-25-2022 11:30-0400 Heart rate 61 /min Kenton Kapadia MD Work Phone: [facility] 10-25-2022 11:30-0400 SaO2% (BldA) [Mass fraction] 97 % Kenton Kapadia MD Work Phone: [facility] 10-25-2022 11:29-0400 Diastolic blood pressure 82 mm[Hg] Kenton Kapadia MD Work Phone: [facility] 10-25-2022 11:29-0400 Systolic blood pressure 131 mm[Hg] Kenton Kapadia MD Work Phone: [facility] 10-25-2022 11:15-0400 Body temperature 98.1 [degF] Kenton Kapadia MD Work Phone: [facility] 10-25-2022 11:15-0400 Respiratory rate 18 /min Kenton Kapadia MD Work Phone: [facility] 10-25-2022 09:51-0400 Body height 160 cm Kenton Kapadia MD Work Phone: [facility] 10-25-2022 09:51-0400 Body weight 68.04 kg Kenton Kapadia MD Work Phone: [facility] 09-20-2022 12:51-0400 Body height 160.02 cm Monika Lehman Work Phone: [address] Work Phone: 09-20-2022 12:51-0400 Body mass index (BMI) [Ratio] 29.23 kg/m2 Monika Lehman Work Phone: [address] Work Phone: 09-20-2022 12:51-0400 Body surface area Derived from formula 1.78 m2 Rugen M [place] Work Phone: [address] Work Phone: 09-20-2022 12:51-0400 Body temperature 97.2 [degF] Rugen M Fallon Work Phone: [address] Work Phone: 09-20-2022 12:51-0400 Body weight 74.84 kg Rugen M Fallon Work Phone: [address] Work Phone: 09-20-2022 12:51-0400 Diastolic blood pressure 100 mm[Hg] Rugen M [place] Work Phone: [address] Work Phone: 09-20-2022 12:51-0400 Heart rate 90 /min Rugen M [place] Work Phone: [address] Work Phone: 09-20-2022 12:51-0400 Systolic blood pressure 156 mm[Hg] Rugen M Fallon Work Phone: [address] Work Phone: 05-04-2022 11:56-0400 Body height 160.02 cm Rugen M [place] Work Phone: [facility] 250 DO Work Phone: 05-04-2022 11:56-0400 Body mass index (BMI) [Ratio] 26.93 kg/m2 Rugen M [place] Work Phone: [facility] 250 DO Work Phone: 05-04-2022 11:56-0400 Body surface area Derived from formula 1.72 m2 Rugen M [place] Work Phone: [facility] 250 DO Work Phone: 05-04-2022 11:56-0400 Body weight 68.95 kg Rugpatricia [place] Fallon Work Phone: [facility] 250 DO Work Phone: 05-04-2022 11:56-0400 Diastolic blood pressure 70 mm[Hg] Rugen Padmini [place] Work Phone: [facility] 250 DO Work Phone: 05-04-2022 11:56-0400 Heart rate 60 /min Rugen Padmini Fallon Work Phone: [facility] 250 DO Work Phone: 05-04-2022 11:56-0400 Systolic blood pressure 130 mm[Hg] Juanen Padmini [place] Work Phone: [facility] 250 DO Work Phone: 03-22-2022 15:35-0500 Body height 160.02 cm Rugen Padmini Fallon Work Phone: [facility] 3 DO Work Phone: 03-22-2022 15:35-0500 Body mass index (BMI) [Ratio] 27.81 kg/m2 Rugen Padmini [place] Work Phone: [facility] 3 DO Work Phone: 03-22-2022 15:35-0500 Body surface area Derived from formula 1.74 m2 Rugen Padmini Fallon Work Phone: [facility] 3 DO Work Phone: 03-22-2022 15:35-0500 Body temperature 97.1 [degF] Rugen Padmini [place] Work Phone: [facility] 3 DO Work Phone: 03-22-2022 15:35-0500 Body weight 71.22 kg Rugen M [place] Work Phone: [facility] 3 DO Work Phone: 03-22-2022 15:35-0500 Diastolic blood pressure 82 mm[Hg] Rugen M Fallon Work Phone: [facility] 3 DO Work Phone: 03-22-2022 15:35-0500 Heart rate 60 /min Rugen M Fallon Work Phone: [facility] 3 DO Work Phone: 03-22-2022 15:35-0500 Systolic blood pressure 130 mm[Hg] Rugen M Fallon Work Phone: [facility] 3 DO Work Phone: 02-24-2022 09:51-0500 Body height 160 cm Pacc 2 Work Phone: [facility] 02-24-2022 09:51-0500 Body temperature 97.2 [degF] Pacc 2 Work Phone: [facility] 02-24-2022 09:51-0500 Body weight 71.22 kg Pacc 2 Work Phone: [facility] 02-24-2022 09:51-0500 Diastolic blood pressure 87 mm[Hg] Pacc 2 Work Phone: [facility] 02-24-2022 09:51-0500 Heart rate 63 /min Pacc 2 Work Phone: [facility] 02-24-2022 09:51-0500 SaO2% (BldA) [Mass fraction] 99 % Pacc 2 Work Phone: [facility] 02-24-2022 09:51-0500 Systolic blood pressure 153 mm[Hg] Pacc 2 Work Phone: [facility] 01-12-2022 10:05-0500 Body height 157.5 cm BROOKE Vera MD Work Phone: [facility] 01-12-2022 10:05-0500 Body temperature 97.39 [degF] BROOKE Vera MD Work Phone: [facility] 01-12-2022 10:05-0500 Body weight 71.89 kg BROOKE Vera MD Work Phone: [facility] 01-12-2022 10:05-0500 Diastolic blood pressure 107 mm[Hg] BROOKE Vera MD Work Phone: [facility] 01-12-2022 10:05-0500 Heart rate 107 /min BROOKE Vera MD Work Phone: [facility] 01-12-2022 10:05-0500 SaO2% (BldA) [Mass fraction] 97 % BROOKE Vera MD Work Phone: [facility] 01-12-2022 10:05-0500 Systolic blood pressure 152 mm[Hg] BROOKE Vera MD Work Phone: [facility] 12-06-2021 12:20-0400 Diastolic blood pressure 89 mm[Hg] Kenton Kapadia MD Work Phone: [facility] 12-06-2021 12:20-0400 Heart rate 69 /min Kenton Kapadia MD Work Phone: [facility] 12-06-2021 12:20-0400 Respiratory rate 16 /min Kenton Kapadia MD Work Phone: [facility] 12-06-2021 12:20-0400 SaO2% (BldA) [Mass fraction] 98 % Kenton Kapadia MD Work Phone: [facility] 12-06-2021 12:20-0400 Systolic blood pressure 153 mm[Hg] Kenton Kapadia MD Work Phone: [facility] 12-06-2021 12:01-0400 Body temperature 96.8 [degF] Kenton Kapadia MD Work Phone: [facility] 12-06-2021 09:04-0400 Body height 160 cm Kenton Kapadia MD Work Phone: [facility] 12-06-2021 09:04-0400 Body weight 77.11 kg Kenton Kapadia MD Work Phone: [facility] 11-17-2021 14:09-0400 Diastolic blood pressure 92 mm[Hg] MD Monika Lehman Work Phone: [facility] 11-17-2021 14:09-0400 Heart rate 92 /min MD Monika Lehman Work Phone: [facility] 11-17-2021 14:09-0400 Respiratory rate 18 /min MD Monika Lehman Work Phone: [facility] 11-17-2021 14:09-0400 SaO2% (BldA) [Mass fraction] 95 % MD Monika Lehman Work Phone: [facility] 11-17-2021 14:09-0400 Systolic blood pressure 168 mm[Hg] MD Monika Lehman Work Phone: [facility] 11-17-2021 10:47-0400 Body height 160.02 cm MD Monika Lehman Work Phone: [facility] 11-17-2021 10:47-0400 Body temperature 98.3 [degF] MD Monika Lehman Work Phone: [facility] 11-17-2021 10:47-0400 Body weight 74.84 kg MD Monika Lehman Work Phone: [facility] 06-14-2021 11:30-0400 Body height 160.02 cm Nick Acosta Other [facility] Other 06-14-2021 11:30-0400 Body mass index (BMI) [Ratio] 31.53 kg/m2 Nick Acosta Other [facility] Other 06-14-2021 11:30-0400 Body temperature 96.4 [degF] Nick Schulzbrenna Other [facility] Other 06-14-2021 11:30-0400 Body weight 80.74 kg Nick Schulzbrenna Other [facility] Other 06-14-2021 11:30-0400 Diastolic blood pressure 80 mm[Hg] Nick Sampsonwoody Other [facility] Other 06-14-2021 11:30-0400 SaO2% (BldA) [Mass fraction] 96 % Nick Schulzbrenna Other [facility] Other 06-14-2021 11:30-0400 Systolic blood pressure 140 mm[Hg] Nick Acosta Other [facility] Other 05-03-2021 11:26-0400 Diastolic blood pressure 82 mm[Hg] Shoutlypatricia Cleartripa Work Phone: [facility] 250 DO Work Phone: 05-03-2021 11:26-0400 Systolic blood pressure 128 mm[Hg] Rugen M Fallon Work Phone: [facility] 250 DO Work Phone: 05-03-2021 11:21-0400 Body height 160.02 cm Rugen M Fallon Work Phone: [facility] 250 DO Work Phone: 05-03-2021 11:21-0400 Body mass index (BMI) [Ratio] 32.77 kg/m2 Rugen M Fallon Work Phone: [facility] 250 DO Work Phone: 05-03-2021 11:21-0400 Body surface area Derived from formula 1.87 m2 Monika Washington Fallon Work Phone: [facility] 250 DO Work Phone: 05-03-2021 11:21-0400 Body weight 83.92 kg Monika [place] Work Phone: [facility] 250 DO Work Phone: 05-03-2021 11:21-0400 Diastolic blood pressure 93 mm[Hg] Juanen Padmini [place] Work Phone: [facility] 250 DO Work Phone: 05-03-2021 11:21-0400 Heart rate 63 /min Monika Washington [place] Work Phone: [facility] 250 DO Work Phone: 05-03-2021 11:21-0400 Systolic blood pressure 156 mm[Hg] Monika Washington Fallon Work Phone: [facility] 250 DO Work Phone: 12-15-2020 12:15-0400 Body height 160.02 cm Nick Acosta Other [facility] Other 12-15-2020 12:15-0400 Body mass index (BMI) [Ratio] 31.53 kg/m2 Nick Acosta Other [facility] Other 12-15-2020 12:15-0400 Body temperature 97.2 [degF] Nick Acosta Other [facility] Other 12-15-2020 12:15-0400 Body weight 80.74 kg Nick Acosta Other [facility] Other 12-15-2020 12:15-0400 Diastolic blood pressure 90 mm[Hg] Nick Acosta Other [facility] Other 12-15-2020 12:15-0400 SaO2% (BldA) [Mass fraction] 97 % Nick Acosta Other [facility] Other 12-15-2020 12:15-0400 Systolic blood pressure 150 mm[Hg] Nick Acosta Other [facility] Other Encounters Encounter Date Encounter Type Care Provider Facility Start: 02-24-2023 End: 02-24-2023 ambulatory ALEAH B BETSY Not Available Start: 02-20-2023 End: 02-20-2023 ambulatory ALEAH B BETSY Not Available Start: 02-17-2023 End: 02-17-2023 ambulatory ALEAH B BETSY Not Available Start: 01-30-2023 End: 01-30-2023 ambulatory ALEAH B BETSY Not Available Start: 01-23-2023 End: 01-23-2023 ambulatory MONIKA M FALLON Not Available Start: 01-20-2023 End: 01-20-2023 ambulatory [facility] Ambulatory Start: 01-20-2023 End: 01-20-2023 Office outpatient visit 15 minutes Daniel Ma MD Work Phone: [facility] Comment on above: Essential hypertensi on (Primary Dx) Start: 01-10-2023 End: 01-10-2023 ambulatory AMAN D BEJ Not Available Start: 12-26-2022 End: 12-26-2022 ambulatory MONIKA M FALLON Not Available Start: 11-21-2022 End: 11-21-2022 ambulatory [facility] Ambulatory Start: 11-21-2022 End: 11-21-2022 Office outpatient visit 25 minutes Elinor Raman MD Work Phone: [facility] Comment on above: Former smoker (Prima ry Dx); Essential hypertension; 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); PVC (premature ventricular contraction); Other ill-defined heart diseases Start: 10-25-2022 End: 10-25-2022 ambulatory TAZ TEJEDA Facility:[facility] Start: 10-25-2022 End: 10-25-2022 Subsequent hospital visit by physician Kenton Kapadia MD Work Phone: Gastroenterology Comment on above: Abdominal pain, unsp ecified abdominal location [R10.9] Start: 10-18-2022 Telephone encounter Swathi Verduzco RNwelder operator Comment on above: Appointment Start: 09-20-2022 Office outpatient vi sit 25 minutes Monika Washington Fallon Work Phone: [facility] 3A [place] Work Phone: Start: 09-20-2022 ambulatory Daniel Ma Facility: Start: 05-12-2022 ambulatory Ms. Seema Saldaña Facility: Start: 05-12-2022 Patient encounter procedure Monika Lehman Work Phone: [facility] 250 DO Work Phone: Start: 05-04-2022 ambulatory Ms. Seema Saldaña Facility: Start: 04-21-2022 Telephone encounter Keiko rizzo RN Gastroenterology Comment on above: Orders Start: 04-20-2022 Telephone encounter Debbi ballard APRN.LENO SEWER Work Phone: Gastroenterology Comment on above: Erroneous encounter- disregard Start: 04-20-2022 End: 04-20-2022 Follow-up encounter Melody Rosado APRN.CNP Work Phone: Colorectal Surgery Comment on above: Follow-up exam (Prim chin Dx) Start: 04-20-2022 End: 04-20-2022 Telemedicine consultation with patient Melody Rosado APRN.CNP Work Phone: [facility] Start: 04-20-2022 End: 04-21-2022 ambulatory MELODY ROSADO Facility:[facility] Start: 04-19-2022 End: 04-19-2022 ambulatory Debbi Hammond APRN.LENO SEWER Work Phone: Gastroenterology Comment on above: Abdominal pain, unsp ecified abdominal location (Primary Dx); Adenomatous rectal polyp; Adverse effect of treatment, initial encounter Start: 04-19-2022 End: 04-19-2022 Telemedicine consultation with patient Debbi Hammond APRN.LENO SEWER Work Phone: [facility] Start: 04-11-2022 End: 04-11-2022 ambulatory MONIKA LEHMAN Facility:[facility] Start: 04-10-2022 Orders Only Taz thapa MD Work Phone: Gastroenterology Comment on above: Adenomatous rectal p olyp (Primary Dx) Start: 03-28-2022 Telephone encounter I Fei merritt MD Work Phone: Colorectal Surgery Comment on above: [employer] Machine Operator - 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 Start: 03-23-2022 End: 03-24-[address] MONIKA LEHMAN Facility: Start: 03-22-2022 Office outpatient vi sit 15 minutes Monika Lehman Work Phone: -[facility] 3 DO Work Phone: Start: 03-22-2022 ambulatory Daniel Ma Facility: Start: 03-10-2022 Telephone encounter I Fei merritt MD Work Phone: Colorectal Surgery Comment on above: [employer]ing Machine Operator - O ther Start: 03-08-2022 Orders Only I Fei Vera MD Work Phone: Colorectal Surgery Comment on above: 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, unspecified part (Primary Dx) Appointment Start: 03-03-2022 End: 03-03-2022 ambulatory MONIKA LEHMAN Facility:[facility] Start: 03-01-2022 Telephone encounter I Fei merritt MD Work Phone: Colorectal Surgery Comment on above: Patient Update [employer]ing Machine Operator - O ther Start: 02-28-2022 Telephone encounter Milagros merritt MD Work Phone: Colorectal Surgery Comment on above: [employer] Machine Operator - O ther Start: 02-26-2022 ambulatory Faye Richey RN NURSE [employer] Comment on above: Medication Question Start: 02-24-2022 End: 02-25-2022 Refill I Fei Vera MD Work Phone: Colorectal Surgery Comment on above: Refill Request Pre-op evaluation (P rimary Dx); History of anesthesia complications; Primary hypertension; Gastroesophageal reflux disease without esophagitis; Hypothyroidism, unspecified type; Former smoker; Thoracoabdominal aortic aneurysm (TAAA), unspecified part, unspecified whether ruptured; Anxiety and depression; History of difficult intubation; Chronic renal impairment, stage 2 (mild) [employer] Machine Operator - O ther Returning Patient's Call No Show Start: 02-24-2022 Encounter for other preprocedural examination MONIKA LEHMAN [facility] Start: 02-24-2022 End: 02-24-2022 Preprocedural examination done Pacc Main 2 Work Phone: Pre Anesthesia Start: 02-23-2022 End: 02-23-2022 ambulatory MONIKA LEHMAN Facility:[facility] Start: 01-12-2022 End: 01-12-2022 ambulatory Milagros VERA Facility:[facility] Start: 01-12-2022 End: 01-12-2022 Patient encounter procedure I Fei Vera MD Work Phone: Colorectal Surgery Comment on above: Benign neoplasm of r ectum (Primary Dx) Start: 01-04-2022 Orders Only Milagros Vera MD Work Phone: Colorectal Surgery Comment on above: 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 (Primary Dx) Start: 12-24-2021 Telephone encounter Taz Tejeda MD Work Phone: Gastroenterology Comment on above: Results Start: 12-06-2021 End: 12-06-2021 ambulatory TAZ TEJEDA Facility:[facility] Start: 12-06-2021 End: 12-06-2021 Subsequent hospital visit by physician Kenton Kapadia MD Work Phone: Gastroenterology Comment on above: Diarrhea, unspecifie d type [R19.7] Start: 11-29-2021 Telephone encounter Jessica Green RNwelder operator Comment on above: Appointment Confirma tion (Pre-procedure instructions) Start: 11-17-2021 End: 11-17-2021 Emergency department patient visit Monika Lehman Facility:[facility] Start: 11-17-2021 End: 11-17-2021 Emergency department patient visit MD Monika Lehman Work Phone: [facility] Start: 11-03-2021 Telephone encounter Taz Tejeda MD Work Phone: Gastroenterology Comment on above: Orders (Egd/Colonosc opy under MAC) Start: 11-01-2021 End: 11-01-2021 ambulatory MONIKA LEHMAN Facility:[facility] Start: 10-29-2021 End: 10-29-2021 ambulatory TAZ TEJEDA Facility:[facility] Start: 10-28-2021 End: 10-28-2021 ambulatory Taz Tejeda MD Work Phone: Gastroenterology Comment on above: Diarrhea, unspecifie d type (Primary Dx); Abdominal pain, unspecified abdominal location; Nausea Start: 10-28-2021 End: 10-28-2021 Telemedicine consultation with patient Taz Tejeda MD Work Phone: [facility] Start: 10-18-2021 End: 10-18-[address] MONIKA LEHMAN Facility:[facility] Start: 10-07-2021 Rx Renewal Monika Lehman Work Phone: [facility] 250 DO Work Phone: Start: 09-13-2021 End: 09-14-[address] MONIKA LEHMAN Facility:[facility] Start: 07-15-2021 Chart Update Monika Lehman Work Phone: [facility] 3 DO Work Phone: Start: 07-15-2021 End: 07-15-2021 ambulatory Monika Lehman Facility:[facility] Start: 07-15-2021 End: 07-15-2021 Patient encounter procedure MD Monika Lehman Work Phone: [facility] [place] Start: 07-08-2021 AUDIT Monika Lehman Work Phone: [facility] 3 DO Work Phone: Start: 07-07-2021 End: 07-08-[address] MONIKA LEHMAN Facility: Start: 06-14-2021 Office outpatient vi sit 25 minutes Nick Acosta [facility] Vascular Surgery Start: 06-14-2021 End: 06-14-2021 ambulatory Nick Acosta [facility] Other Start: 06-14-2021 End: 06-14-2021 Patient encounter procedure MD Monika Lehman Work Phone: [facility] Start: 05-03-2021 Office outpatient vi sit 25 minutes Monika Lehman Work Phone: [facility] 250 DO Work Phone: Start: 12-15-2020 End: 12-15-2020 ambulatory Nick Acosta Other [facility] Other Start: 12-15-2020 Office outpatient vi sit 25 minutes Nick Acosta [facility] Vascular Surgery Echocardiogram normal Monika [place] Work Phone: [facility] 250 DO Work Phone: Procedures Date Procedure Procedure Detail Performing Clinician Start: 10-25-2022 Colonoscopy flx dx w/collj spec when pfrmd Taz Tejeda MD Work Phone: Start: 10-25-2022 Colonoscopy Kenton Kapadia MD Work Phone: Start: 03-03-2022 Colonoscopy flx dx w/collj spec when pfrmd [facility] Provider Start: 03-03-2022 Colonoscopy Nurse Elizabet Work Phone: Start: 02-24-2022 Antibody screen MONIKA FALLON Comment on above: Order Comment: Specimen Type: BLOOD SPEC IMEN Ordering Facility: [facility] Address: [address] [place] [address] Performed By: #### T [id number] #### [facility] CLIA [id number] [facility] [address] [address] Start: 12-06-2021 Esophagogastroduodenoscopy transoral diagnostic Taz Tejeda MD Work Phone: Start: 12-06-2021 Colonoscopy flx dx w/collj spec when pfrmd Taz Tejeda MD Work Phone: Start: 12-06-2021 Colonoscopy Kenton Kapadia MD Work Phone: Start: 11-17-2021 CT of abdomen and pelvis without contrast MD Monika Lehman Work Phone: Start: 06-14-2021 US scan of aorta MD Monika Lehman Work Phone: Start: 08-14-2018 Echocardiography Appendectomy Monika [place] Fallon Work Phone: Cholecystectomy Monika M [place] Work Phone: Operation on ovary Juanen M A lda Work Phone: Operation on uterus Juanen M [place] Work Phone: Tonsillectomy and adenoidectomy Juanen M Fallon Work Phone: Total colonoscopy Monika [place] Work Phone: Comment on above: Dr Olsen [facility]; Plan of Treatment Date Care Activity Detail Author Start: 10-25-2032 Screening for malignant neoplasm [facility] colon [facility] Start: 02-24-2025 DIABETES SCREEN DIABETES SCREEN [facility] Start: 02-24-2025 Diabetes Screening Diabetes Screening [facility] Start: 10-29-2024 DIABETES SCREEN DIABETES SCREEN [facility] Start: 10-26-[address] [facility] Start: 10-26-2023 Colorectal Cancer Screening Colorectal Cancer Screening [facility] Start: 05-08-2023 FUV, Provider: Elinor Raman, Status: Román, Time: 1:00 PM FUV, Provider: Elinor Raman, Status: Román, Time: 1:00 PM [facility] 250 DO Work Phone: Start: 05-08-2023 End: 05-08-2023 Patient encounter procedure 05/08/2023 1:00 PM EDT Office Visit [facility] [address] [facility] [address] [place] [address] Elinor Raman MD [address] [facility] [address] [place], [place] [id number] [facility] Start: 03-03-[address] [facility] Start: 03-03-2023 COLORECTAL CANCER SCREENING COLORECTAL CANCER SCREENING [facility] Start: 02-24-2023 HEMOGLOBIN/HEMATOCRIT HEMOGLOBIN/HEMATOCRIT [facility] Start: 02-24-2023 SERUM CREATININE SERUM CREATININE [facility] Start: 01-20-2023 End: 01-21-2024 Basic metabolic 2000 panel - Serum or Plasma Basic Metabolic Panel Lab Routine Essential hypertension Expected: 01/20/2023 (Approximate), Expires: 01/21/2024 [facility] Service Area Work Phone: Comment on above: Expected: 01/20/2023 (Approximate), Expi res: 01/21/2024 Start: 01-20-2023 FUV, Provider: Daniel Ma, Status: Román, Time: 11:20 AM FUV, Provider: Daniel Ma, Status: Román, Time: 11:20 AM [facility] 3A [place] Work Phone: Start: 01-20-2023 End: 01-20-2023 Patient encounter procedure 01/20/2023 11:20 AM EST Office Visit [facility] [id number] [place] [id number] [place] [address] [place] [address] [facility] Start: 12-06-[address] [facility] Start: 12-06-2022 COLORECTAL CANCER SCREENING COLORECTAL CANCER SCREENING [facility] Start: 11-22-2022 End: 11-23-2023 Comprehensive metabolic 2000 panel - Serum or Plasma Comprehensive metabolic panel Lab Routine Essential hypertension Expected: 11/22/2022 (Approximate), Expires: 11/23/2023 [facility] Work Phone: Comment on above: Expected: 11/22/2022 (Approximate), Expi res: 11/23/2023 Start: 11-22-2022 End: 11-23-2023 Lipid 1996 panel - Serum or Plasma Lipid panel Lab Routine Essential hypertension Expected: 11/22/2022 (Approximate), Expires: 11/23/2023 [facility] Work Phone: Comment on above: Expected: 11/22/2022 (Approximate), Expi res: 11/23/2023 Start: 11-21-2022 End: 11-21-2024 NM Heart Perfusion W stress and W radionuclide IV Nuclear Stress Test Cardiac Nuclear Medicine Routine Essential hypertension 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) Other ill-defined heart diseases Expected: 11/21/2022 (Approximate), Expires: 11/21/2024 [facility] Work Phone: Comment on above: Expected: 11/21/2022 (Approximate), Expi res: 11/21/2024 Start: 11-21-2022 End: 11-21-2024 US Heart Transthoracic Transthoracic Echo (TTE) Complete Echocardiography Routine Essential hypertension 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) PVC (premature ventricular contraction) Expected: 11/21/2022 (Approximate), Expires: 11/21/2024 [facility] Service Area Work Phone: Comment on above: Expected: 11/21/2022 (Approximate), Expi res: 11/21/2024 Start: 10-29-2022 HEMOGLOBIN/HEMATOCRIT HEMOGLOBIN/HEMATOCRIT [facility] Start: 10-29-2022 SERUM CREATININE SERUM CREATININE [facility] Start: 10-14-[address] [facility] Start: 09-20-2022 FUV, Provider: Daniel Ma, Status: Pen, Time: 12:50 PM FUV, Provider: Daniel Ma, Status: Pen, Time: 12:50 PM [facility] 3 DO Work Phone: Start: 05-04-2022 End: 11-04-2022 COLONOSCOPY DIAGNOSTIC COLONOSCOPY DIAGNOSTIC Endoscopy Routine Diarrhea, unspecified type Expected: 05/04/2022, Expires: 11/04/2022 [facility] Work Phone: Comment on above: Expected: 05/04/2022, Expires: Start: 05-04-2022 End: 11-04-2022 EGD DIAGNOSTIC EGD DIAGNOSTIC Endoscopy Routine Abdominal pain, unspecified abdominal location Expected: 05/04/2022, Expires: 11/04/2022 [facility] Work Phone: Comment on above: Expected: 05/04/2022, Expires: Start: 04-25-2022 FUV, Provider: Seema Spencer, Status: Pen, Time: 10:30 AM FUV, Provider: Seema Spencer, Status: Pen, Time: 10:30 AM [facility] 250 DO Work Phone: Start: 04-19-2022 FUV, Provider: Deshaun Paniagua, Status: Pen, Time: 10:30 AM FUV, Provider: Deshaun Paniagua, Status: Pen, Time: 10:30 AM [facility] 250 DO Work Phone: Start: 04-03-2022 DIABETES SCREEN DIABETES SCREEN [facility] Start: 02-13-2022 ADVANCE DIRECTIVE DISCUSSION ADVANCE DIRECTIVE DISCUSSION [facility] Start: 01-18-2022 FUV, Provider: Daniel Ma, Status: Pen, Time: 1:00 PM FUV, Provider: Daniel Ma, Status: Pen, Time: 1:00 PM -[facility] 250 DO Work Phone: Start: 01-04-2022 End: 03-06-2022 Carcinoembryonic Ag [Mass/volume] in Serum or Plasma CEA BLD Lab Routine Neoplasm of uncertain behavior of colon Expected: 01/04/2022, Expires: 03/06/2022 [facility] Work Phone: Comment on above: Expected: 01/04/2022, Expires: 3 Start: 10-28-2021 End: 12-28-2021 CBC panel - Blood by Automated count CBC Lab Routine Abdominal pain, unspecified abdominal location Diarrhea, unspecified type Expected: 10/28/2021, Expires: 12/28/2021 [facility] Work Phone: Comment on above: Expected: 10/28/2021, Expires: 2 Start: 10-28-2021 End: 12-28-2021 CELIAC SCREEN WITH REFLEX CELIAC SCREEN WITH REFLEX Lab Routine Diarrhea, unspecified type Expected: 10/28/2021, Expires: 12/28/2021 [facility] Work Phone: Comment on above: Expected: 10/28/2021, Expires: 2 Start: 10-28-2021 End: 12-28-2021 Comprehensive metabolic 2000 panel - Serum or Plasma COMP METABOLIC PANEL Lab Routine Abdominal pain, unspecified abdominal location Diarrhea, unspecified type Expected: 10/28/2021, Expires: 12/28/2021 [facility] Work Phone: Comment on above: Expected: 10/28/2021, Expires: 2 Start: 10-28-2021 End: 12-28-2021 Thyrotropin [Units/volume] in Serum or Plasma TSH BLD Lab Routine Abdominal pain, unspecified abdominal location Diarrhea, unspecified type Expected: 10/28/2021, Expires: 12/28/2021 [facility] Work Phone: Comment on above: Expected: 10/28/2021, Expires: 2 Start: 10-14-2021 Influenza vaccination INFLUENZA (#1) [facility] Start: 07-20-2021 FUV, Provider: Daniel Ma, Status: Pen, Time: 1:40 PM FUV, Provider: Daniel Ma, Status: Pen, Time: 1:40 PM [facility] 3 DO Work Phone: Start: 05-15-2021 COVID-19 VACCINE (4 - Booster for Pfizer series) COVID-19 VACCINE (4 - Booster for Pfizer series) [facility] Start: 03-11-2021 COVID-19 VACCINE (4 - Booster for Pfizer series) COVID-19 VACCINE (4 - Booster for Pfizer series) [facility] Start: 03-11-2021 COVID-19 VACCINE (4 - Pfizer series) COVID-19 VACCINE (4 - Pfizer series) [facility] Start: 02-13-2021 ADVANCE DIRECTIVE DISCUSSION ADVANCE DIRECTIVE DISCUSSION [facility] Start: 02-13-2021 DEPRESSION ASSESSMENT DEPRESSION ASSESSMENT [facility] Start: 2014 BONE DENSITY BONE DENSITY [facility] Start: 2014 Bone Density Screening Bone Density Screening [facility] Start: 2014 Pneumococcal Vaccine: 65+ (1 - PCV) Pneumococcal Vaccine: 65+ (1 - PCV) [facility] Start: 2014 PNEUMOCOCCAL: 65+ (1 - PCV) PNEUMOCOCCAL: 65+ (1 - PCV) [facility] Start: 2009 Hepatitis B Vaccines (1 of 3 - Risk 3-dose series) Hepatitis B Vaccines (1 of 3 - Risk 3-dose series) [facility] Start: 12-09-1999 SHINGRIX VACCINE (1 of 2) SHINGRIX VACCINE (1 of 2) [facility] Start: 12-09-1999 Zoster Vaccines (1 of 2) Zoster Vaccines (1 of 2) [facility] Start: 1994 COLOGUARD (FIT-DNA) COLOGUARD (FIT-DNA) [facility] Start: [address] [facility] Start: 1994 COLORECTAL CANCER SCREENING COLORECTAL CANCER SCREENING [facility] Start: [address] [facility] Start: 1994 FECAL OCCULT BLOOD FECAL OCCULT BLOOD [facility] Start: 1994 Lipid 1996 panel - Serum or Plasma Lipid Screening [facility] Start: 1994 LIPID SCREEN LIPID SCREEN [facility] Start: [address] [facility] Start: [address] [facility] Start: 1989 Screening for malignant neoplasm of breast Mammogram [facility] Start: 12-09-1971 DTaP/Tdap/Td Vaccines (1 - Tdap) DTaP/Tdap/Td Vaccines (1 - Tdap) [facility] Start: 1968 Hepatitis A Vaccines (1 of 2 - Risk 2-dose series) Hepatitis A Vaccines (1 of 2 - Risk 2-dose series) [facility] Start: [address] [facility] Start: 12-09-1967 ANNUAL PCP TEAM CHRONIC DISEASE VISIT ANNUAL PCP TEAM CHRONIC DISEASE VISIT [facility] Start: 12-09-1967 BP CONTROLLED (<130/80) BP CONTROLLED (<130/80) [facility] Start: 12-09-1967 HEPATITIS C SCREENING HEPATITIS C SCREENING [facility] Start: 12-09-1967 Hepatitis C screening Hepatitis C Screening [facility] Start: 1961 Adult depression screening assessment DEPRESSION SCREENING [facility] Start: 12-09-1955 Pneumococcal Vaccine: 65+ Years (1 - PCV) Pneumococcal Vaccine: 65+ Years (1 - PCV) [facility] Start: 1949 Lipid panel Lipid Panel [facility] Start: 1949 Screening for malignant neoplasm of colon [facility] Start: 1949 Screening for osteoporosis Bone Density Scan [facility] Start: 1949 Thyroid stimulating hormone measurement TSH Level [facility] Start: 1949 Yearly Adult Physical Yearly Adult Physical [facility] Calprotectin [Mass/m ass] in Stool CALPROTECTIN,FECAL Lab Routine Abdominal pain, unspecified abdominal location Diarrhea, unspecified type Ordered: 10/28/2021 [facility] Work Phone: Comment on above: Ordered: 10/28/2021 Calprotectin [Mass/m ass] in Stool CALPROTECTIN,FECAL Lab Routine Adenomatous rectal polyp Ordered: 04/19/2022 [facility] Work Phone: Comment on above: Ordered: 04/19/2022 Clostridioides diffi cile toxin genes [Presence] in Stool by VERONICA with probe detection C. DIFFICILE PCR Lab Routine Abdominal pain, unspecified abdominal location Diarrhea, unspecified type Ordered: 10/28/2021 [facility] Work Phone: Comment on above: Ordered: 10/28/2021 End: 10-28-2022 COLONOSCOPY DIAGNOSTIC COLONOSCOPY DIAGNOSTIC Endoscopy Routine Abdominal pain, unspecified abdominal location Diarrhea, unspecified type 1 Occurrences starting 10/28/2021 until 10/28/2022 [facility] Work Phone: Comment on above: 1 Occurrences starting 10/28/2021 until 10/28/2022 End: 04-10-2023 COLONOSCOPY DIAGNOSTIC COLONOSCOPY DIAGNOSTIC Endoscopy Routine Adenomatous rectal polyp 1 Occurrences starting 04/10/2022 until 04/10/2023 [facility] Work Phone: Comment on above: 1 Occurrences starting 04/10/2022 until 04/10/2023 End: 05-19-2023 Ct abdomen & pelvis w/contrast material CT ENTEROGRAPHY W IVCON Radiology Routine Adverse effect of treatment, initial encounter Abdominal pain, unspecified abdominal location 1 Occurrences starting 04/19/2022 until 05/19/2023 [facility] Work Phone: Comment on above: 1 Occurrences starting 04/19/2022 until 05/19/2023 End: 10-28-2022 EGD DIAGNOSTIC EGD DIAGNOSTIC Endoscopy Routine Abdominal pain, unspecified abdominal location Diarrhea, unspecified type 1 Occurrences starting 10/28/2021 until 10/28/2022 [facility] Work Phone: Comment on above: 1 Occurrences starting 10/28/2021 until 10/28/2022 Patient Education Hypokalemia Ab dominal Pain, Adult ED [facility] Work Phone: Patient referral [facility] Work Phone: SURGICAL PATHOLOGY [facility] Work Phone: Comment on above: Release Upon Ordering for 1 Occurrences starting 12/06/2021, 1 completed SURGICAL PATHOLOGY [facility] Work Phone: Comment on above: Release Upon Ordering for 1 Occurrences starting 10/25/2022, 1 [facility] Immunizations Immunization Date Immunization Notes Care Provider Fa [facility] 03-23-2022 Fluzone High-Dose Quadrivalent 0.7 ML Intramuscular Suspension Prefilled Syringe Rugen Padmini Fallon Work Phone: [place] [address] DO Work Phone: 03-23-2022 influenza virus vaccine, unspecified formulation Elinor Raman MD Work Phone: [facility] Work Phone: 01-14-2021 Pfizer-BioNTech COVID-19 Vacc 30 MCG/0.3ML Intramuscular Suspension Rugen M [place] Work Phone: [place] [address] DO Work Phone: 12-04-2020 influenza, injectabl e, quadrivalent, preservative free Rugen M [place] Work Phone: [place] [address] DO Work Phone: 12-04-2020 influenza virus vaccine, unspecified formulation Kenton Kapadia MD Work Phone: [facility] 04-15-2020 Pfizer-BioNTech COVID-19 Vacc 30 MCG/0.3ML Intramuscular Suspension Rugen M Fallon Work Phone: [facility] 250 DO Work Phone: 03-24-2020 Pfizer-BioNTech COVID-19 Vacc 30 MCG/0.3ML Intramuscular Suspension Rugen M Fallon Work Phone: [facility] 250 DO Work Phone: 01-16-2020 Fluad Quadrivalent 0 .5 ML Intramuscular Prefilled Syringe Monika Hamiltona Work Phone: [facility] 250 DO Work Phone: 11-14-2019 influenza virus vaccine, unspecified formulation Rugen M Fallon Work Phone: [facility] 250 DO Work Phone: 11-14-2019 influenza, seasonal, injectable Elinor Raman MD Work Phone: [facility] Work Phone: 12-21-2018 influenza, injectabl e, madin loc canine kidney, preservative free Rugen M [place] Work Phone: [facility] 250 DO Work Phone: 11-13-2018 influenza virus vaccine, unspecified formulation Juanen M [place] Work Phone: [facility] DO Work Phone: Payers Date Payer Category Payer Self-pay [id number] 2016 Unknown 2014 Medicare [id number] 1959 Medicare [id number] 1959 Unknown [id number] 1949 Unknown [id number] 2.16.84 [id number] 1949 Unknown [id number] 2.16.84 0.1.607159.3.579.2.593 1949 Unknown [id number] 2.16.84 0.1.470087.3.579.2.593 1949 Unknown [id number] 2.16.84 0.1.079353.3.579.2.593 1949 Unknown [id number] 2.16. 840.1.319395.3.579.2.356 1949 Unknown [id number] 2.16. 840.1.194604.3.579.2.356 1949 Unknown [id number] 2.16. 840.1.422664.3.579.2.356 1949 Unknown [id number] 2.16. 840.1.310556.3.579.2.356 1949 Unknown [id number] 2.16.8 40.1.972837.3.579.2.1244 1949 Unknown [id number] 2.16.8 40.1.952758.3.579.2.1244 1949 Unknown [id number] 2.16.84 0.1.578064.3.579.2.1259 1949 Unknown [id number] 2.16.84 0.1.799253.3.579.2.1259 1949 Unknown [id number] 2.16.840 .1.762809.3.579.2.1259 1949 Unknown [id number] 2.16.840 .1.602534.3.579.2.1259 1949 Unknown [id number] 2.16.840 .1.577737.3.579.2.1259 1949 Unknown [id number] 2.16.840 .1.581956.3.579.2.1259 1949 Unknown [id number] 2.16.840. 1.736342.3.579.2.1259 Unknown [id number] 2.16.8 40.1.324344.3.579.2.531 Unknown [id number] 2.16.8 40.1.285175.3.579.2.531 Unknown [id number] 2.16.8 [id number] Social History Date Type Detail Facility Start: 02-24-2022 End: 11-21-2022 Caffeine use Caffeine use [facility] Other Comment on above: 1/2 CAN OF POP DAILY 2-3 CUPS OF HOT CHOCOLATE DAILY; Start: 1950 Sex Assigned At Female F [facility] Start: 02-24-2022 End: 11-21-2022 Sex Assigned At [facility] Other Tobacco smoking status [facility] Tobacco smoking consumption unknown [facility] Start: 1950 Sex Assigned At Not on file C [facility] Start: 10-18-2021 End: 01-20-2023 Exposure to SARS-CoV-2 (event) Not sure [facility] Start: 11-17-2021 Tobacco smoking status VTIS Never smoked tobacco (finding) [facility] Start: 12-06-2021 End: 11-21-2022 Tobacco smoking status NHIS Ex-smoker [facility] End: 02-13-2011 History of tobacco use Current smoker [facility] End: 02-13-2011 History of tobacco use Cigarette Smoker [facility] Start: 12-06-2021 End: 11-21-2022 Tobacco use and exposure Smokeless tobacco non-user [facility] Start: 12-06-2021 End: 11-21-2022 Alcohol intake Lifetime non-drinker (finding) [facility] National Score (1-100), lower number is lower risk 73 [facility] Clinical Notes 12-15-2020 to 11-22-2022 Assessment & Plan Note - Elinor Raman MD - 11/22/2022 10:09 AM EDTAssessment & Plan Note - Elinor Raman MD - 11/22/2022 10:09 AM EDTGcurtis Raman MD - 11/21/2022 3:15 PM EDT Note Date & Type Note Facility 11-22-2022 Evaluation + Plan note Associated Problem(s): Former smoker Encouraged patient to continue to abstain from cigarettes. [facility] Work Phone: 11-22-2022 Miscellaneous Notes Associated Problem(s): Former smoker Encouraged patient to continue to abstain from cigarettes. Associated Problem(s): Class 1 obesity with body mass index (BMI) of 32.0 to 32.9 in adult Her BMI puts her in the overweight category, she remains fairly active, actually her weight is not too bad for her age, I reinforced the need for heart healthy lifestyle. Associated Problem(s): PVC (premature ventricular contraction) Patient would benefit from further testing. She is a postmenopausal female with multiple cardiac risk factors, abdominal aortic aneurysm that is followed by vascular surgery, patient tells me it is 3 cm in size, results not available. Patient has no symptoms of PVCs for the most part We will proceed with an echocardiogram and a Lexiscan Myoview. Patient says that she has issues with her feet and will not be able to do a treadmill stress test. Keep potassium greater than 4 magnesium greater than 2 Follow-up to discuss test results. Associated Problem(s): Essential hypertension Patient is new to this provider. Blood pressure is at target in office but patient reports that her blood pressure has historically been difficult to manage. Dr. Ma follows her for hypertension and kidney disease, recent laboratory data not available. Patient may benefit from an angiotensin receptor barry for blood pressure management. Some of her lower extremity edema may be from amlodipine. Today she does not have significant lower extremity edema If she is a candidate for alternate agent such as an angiotensin receptor barry, may be able to down titrate amlodipine, and reassess lower extremity edema. Copy of this note will be sent to Dr. Ma for further recommendations. Patient will keep a log of blood pressures outside the office environment. documented in this encounter [facility] Work Phone: 11-22-2022 Evaluation + Plan note Associated Problem(s): Class 1 obesity with body mass index (BMI) of 32.0 to 32.9 in adult Her BMI puts her in the overweight category, she remains fairly active, actually her weight is not too bad for her age, I reinforced the need for heart healthy lifestyle. [facility] Work Phone: 11-22-2022 Evaluation + Plan note Associated Problem(s): PVC (premature ventricular contraction) Patient would benefit from further testing. She is a postmenopausal female with multiple cardiac risk factors, abdominal aortic aneurysm that is followed by vascular surgery, patient tells me it is 3 cm in size, results not available. Patient has no symptoms of PVCs for the most part We will proceed with an echocardiogram and a Lexiscan Myoview. Patient says that she has issues with her feet and will not be able to do a treadmill stress test. Keep potassium greater than 4 magnesium greater than 2 Follow-up to discuss test results. [facility] Work Phone: 11-22-2022 Evaluation + Plan note Associated Problem(s): Essential hypertension Patient is new to this provider. Blood pressure is at target in office but patient reports that her blood pressure has historically been difficult to manage. Dr. Ma follows her for hypertension and kidney disease, recent laboratory data not available. Patient may benefit from an angiotensin receptor barry for blood pressure management. Some of her lower extremity edema may be from amlodipine. Today she does not have significant lower extremity edema If she is a candidate for alternate agent such as an angiotensin receptor barry, may be able to down titrate amlodipine, and reassess lower extremity edema. Copy of this note will be sent to Dr. Ma for further recommendations. Patient will keep a log of blood pressures outside the office environment. [facility] Work Phone: 11-21-2022 History of Presen t illness Narrative Subjective Ms. Womack is a 70-year-old female who is seen back today for follow-up mostly on a history of ventricular ectopy with chronic PVCs. She has had a previous echocardiogram that suggested normal left ventricular systolic function. She also has a history of some bradycardia and has chronic hypertension. She does not have any known history of coronary disease. She has no anginal complaints. History so Far : Patient reports feeling generally well, it appears however that she has not had any cardiac testing, no echo no perfusion imaging study, she does have history of ventricular ectopy. She says she has an abdominal aortic aneurysm and cerebrovascular disease both of which are followed by vascular surgery in [place]. She says that if she does not take the furosemide, her legs will swell up. Some of the lower extremity edema in my opinion could be related to amlodipine She does have chronic kidney disease, recent laboratory data not available, sees Dr. Ma for hypertension management Was on chlorthalidone prescribed by primary for uncontrolled hypertension, subsequently discontinued by Dr. Ma because of concern for kidney injury. There is no intolerance listed to either MARY inhibitor or angiotensin receptor barry, unclear as to why patient is not on 1 of these agents. Blood pressure is at target in office today, however multiple readings from home are significantly elevated according to the patient. She says that this blood pressure reading today is quite unusual for her. Patient does not report any claudications. No lightheadedness presyncope or syncope. Objective Visit Vitals BP 112/86 (BP Location: Left arm, Patient Position: Sitting) Pulse 82 GENERAL APPEARANCE: Well developed, well nourished, in no acute distress. CHEST: Symmetric and non-tender. INTEGUMENT: Skin warm and dry, without gross excoriationis or lesions. HEENT: No gross abnormalities. NECK: Supple, no JVD, no bruit. NEURO/PSHCY: Alert and oriented x3; appropriate behavior and responses and responses, with normal balance and coordination LUNGS: Clear to auscultation bilaterally; normal respiratory effort. HEART: Rate and rhythm regular with no evident murmur; no gallop appreciated. There are no rubs,, no clicks ABDOMEN: Soft, nontender, no palpable hepatosplenomegaly, no mases, no bruits. MUSCULOSKELETAL: No obvious deformity identified EXTREMITIES: Warm with good color, no clubbing or cyanois. There is no edema noted. PERIPHERAL VASCULAR: Pulses present and equally palpable; 2+ throughout. LABS: CBC: No results for input(s): WBC , HGB , PLT in the last 72 hours. BMP: No results for input(s): NA , K , CL , CO2 , BUN , CREATININE , GLUCOSE in the last 72 hours. BNP: No results for input(s): PROBNP in the last 72 hours. Mg: @LABRCNT (mg)@ No results found for: CHOL No results found for: HDL No results found for: LDLCALC No results found for: TRIG No components found for: CHOLHDL No results found for this or any previous visit (from the past 4464 hour(s)). No results found for this or any previous visit. The ASCVD Risk score (Teresa DK, et al., 2019) failed to calculate for the following reasons: The patient has a prior IA or stroke diagnosis Assessment/Plan: Essential hypertension Patient is new to this provider. Blood pressure is at target in office but patient reports that her blood pressure has historically been difficult to manage. Dr. Ma follows her for hypertension and kidney disease, recent laboratory data not available. Patient may benefit from an angiotensin receptor barry for blood pressure management. Some of her lower extremity edema may be from amlodipine. Today she does not have significant lower extremity edema If she is a candidate for alternate agent such as an angiotensin receptor barry, may be able to down titrate amlodipine, and reassess lower extremity edema. Copy of this note will be sent to Dr. Ma for further recommendations. Patient will keep a log of blood pressures outside the office environment. PVC (premature ventricular contraction) Patient would benefit from further testing. She is a postmenopausal female with multiple cardiac risk factors, abdominal aortic aneurysm that is followed by vascular surgery, patient tells me it is 3 cm in size, results not available. Patient has no symptoms of PVCs for the most part We will proceed with an echocardiogram and a Lexiscan Myoview. Patient says that she has issues with her feet and will not be able to do a treadmill stress test. Keep potassium greater than 4 magnesium greater than 2 Follow-up to discuss test results. Class 1 obesity with body mass index (BMI) of 32.0 to 32.9 in adult Her BMI puts her in the overweight category, she remains fairly active, actually her weight is not too bad for her age, I reinforced the need for heart healthy lifestyle. Former smoker Encouraged patient to continue to abstain from cigarettes. Orders placed this visit: Echocardiogram Lexiscan Myoview Comprehensive profile and lipid profile Follow-up: AFTER TESTING Elinor Raman MD documented in this encounter [facility] Work Phone: 11-21-2022 Instructions Ioana Drummond LPN - 11/21/2022 3:15 PM EDT Please bring all medicines, vitamins, and herbal supplements with you when you come to the office. Prescriptions will not be filled unless you are compliant with your follow up appointments or have a follow up appointment scheduled as per instruction of your physician. Refills should be requested at the time of your visit. documented in this encounter [facility] Work Phone: 10-25-2022 Nurse Note AMBULATORY PATIENT EDUCATION NOTE TOPIC: GI PROCEDURES: Colonoscopy with or without biopsies based on clinical findings READINESS TO LEARN INSTRUCTION PROVIDED TO: Patient, readness to learn accessed prior to procedure COGNITIVE ABILITY: Alert and oriented PTED MOTIVATION TO LEARN: Eager Interested FAMILY SUPPORT: Moderate - Family present but overwhelmed IPATIENT LEARNS BEST BY: Individual Instruction Written Instruction - Hand-outs Verbal Instruction FACTORS AFFECTING LEARNING: None PHYSICAL LIMITATIONS AFFECTING LEARNING: None LEARNING RESPONSE METHOD OF INSTRUCTION: Individual instruction PATIENT / FAMILY RESPONSE: Verbalizes understanding of: WORSENING CONDITION-Signs and symptoms of a worsening condition that warrant a call to the physician FOLLOW-UP PLAN: Patient instructed to call with any further issues SUPPLEMENTAL MATERIAL: Procedure Discharge Instructions REFERRAL (RECOMMENDATION): None Electronically Signed By: Stephanie Benavides RN PRE OP LEARNING ASSESSMENT PROCEDURE/SURGERY: GI PROCEDURES: Colonoscopy READINESS TO LEARN COGNITIVE ABILITY: Alert and oriented MOTIVATION TO LEARN: Eager Interested FAMILY SUPPORT: High - Very involved in pt care PATIENT LEARNS BEST BY: Individual Instruction Verbal Instruction FACTORS AFFECTING LEARNING: None PHYSICAL LIMITATIONS AFFECTING LEARNING: None Electronically Signed By: Corina Alcaraz LPN In Department: GASTROENTEROLOGY documented in this encounter [facility] 10-18-2022 Miscellaneous Notes Attempted to reach the patient at the contact number that they provided [phone] (home) . 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 Failure to have a responsible adult accompany the patient to their procedure appointment prevents the use of sedation or anesthesia for their procedure; and can result in cancellation of the procedure Clear liquids the day before the procedure, stop all liquids 4 hours before the procedure Instructions to contact their primary care provider regarding their medications and which medications to stop in preparation for their procedure Instructions to completely read and follow the written instructions that they recieved regarding their procedure. Number to call with questions or concerns [phone] Number to call to cancel their procedure [phone] Swathi Verduzco RN documented in this encounter [facility] 04-21-2022 Miscellaneous Notes Received request for stool orders to be faxed to [facility]. Orders faxed successfully to [phone] Keiko Hernandez RN documented in this encounter [facility] 04-20-2022 Note HNO ID: [id number] Author: Melody Rosado APRN.CNP Service: ? Author Type: Nurse Practitioner Type: Progress Notes Filed: 04/20/2022 8:55 AM Note Text: Called to discuss symptoms/plan going forward after GI appointment Per GI, plan is CTe Pt states that CT that she got 1 month ago will be pushed over She will also get a stool sample with her PCP and then send the results over to GI I have communicated my name and active licensure. The patient's identity and physical location were verified at the time of this visit. Either the patient or their legal merchandiser retail representative has been informed of the risks and benefits of -- and alternatives to -- treatment through a remote evaluation and consents to proceed with the evaluation remotely. Pt is advised to follow up in person with any new/worsening symptoms Her colonoscopy is due 08/2022- sooner as clinically indicate Melody Rosado APRN.CNP [facility] 04-20-2022 History of Presen t illness Narrative Called to discuss symptoms/plan going forward after GI appointment Per GI, plan is CTe Pt states that CT that she got 1 month ago will be pushed over She will also get a stool sample with her PCP and then send the results over to GI I have communicated my name and active licensure. The patient's identity and physical location were verified at the time of this visit. Either the patient or their legal merchandiser retail representative has been informed of the risks and benefits of -- and alternatives to -- treatment through a remote evaluation and consents to proceed with the evaluation remotely. Pt is advised to follow up in person with any new/worsening symptoms Her colonoscopy is due 08/2022- sooner as clinically indicate Melody Rosado APRN.CNP documented in this encounter [facility] 04-19-2022 Note HNO ID: [id number] Author: Debbi Hammond APRN.CNP Service: ? Author Type: Nurse Practitioner Type: Progress Notes Filed: 04/20/2022 6:26 PM Note Text: VIRTUAL VISIT FOLLOW UP Dianelys Womack [id number] has requested a video telemedicine for follow up of diarrhea. Dianelys Womack verbalized informed consent to proceed with the video telemedicine follow up consultation. Dianelys Womack was informed that the details of this video visit would be recorded as part of their electronic medical record. Patient location at time of call: personal residence Additional encounter participants and relationship: daughter, Renetta I had a virtual visit with Dianelys Womack today with her daughter, Renetta, for follow up of diarrhea. Last seen on 10/28/[address] Tejeda. UPDATED HISTORY: Dianelys has been feeling better from a GI standpoint since her surgery in February, but reports that she currently has a cold (met with her PCP today for this). She was having a small amount of rectal mucus since surgery however she met with [facility] last week and since that visit has been feeling very much improved from that standpoint, with reported resolution in those symptoms. However she continues to experience a feeling of fullness after eating anything, incomplete emptying during bowel movements and sore spots on her abdomen that only hurt when touched. I just want something that will call my stomach down. Current Clinical Symptoms # of bowel movements daily: 2-3 (pt reported normal is 1/day) # of liquid stools daily: 0 Consistency: soft, formed Bloody bowel movements: no Urgency: yes- will have a BM but then feel the need that she has to go back to the bathroom and have another Abdominal pain: yes- Location: bilateral upper quadrants. Description: aching. Rates 4/10. Triggers: pressure to that area. Alleviating factors: GasX and Xanax. Abdominal distention: yes- feels very full soon after eating a little bit of anything. Says this has been ongoing for 6 months. Nausea/vomiting: no Appetite: fair-poor, but says this has been an ongoing problem even prior to surgery Weight loss over last 3 months: no Stable reported weight is 180 lbs. She is unsure what her recent weight is because she hasn't weighed herself recently. PAST SURGICAL HISTORY Procedure Laterality Date ABDOMINAL SURGERY HX REMOVAL GALLBLADDER VAGINAL HYSTERECTOMY Current Outpatient Medications Medication Sig Dispense Refill neomycin 500 mg tablet Take 2 tablets by mouth at 9pm and take 2 tablets by mouth at 11pm the night before surgery. 4 tablet 0 OMEPRAZOLE ORAL Take 40 mg by mouth once daily. ALPRAZolam (XANAX) 1 mg tablet Take 1 mg by mouth as needed. Lactobacillus acidophilus (PROBIOTIC ORAL) Take by mouth once daily. amLODIPine (NORVASC) 5 mg tablet Take 5 mg by mouth once daily. gabapentin (NEURONTIN) 600 mg tablet twice daily. traMADol (ULTRAM) 50 mg tablet as needed. KLOR-CON M20 20 mEq tablet Take 20 mEq by mouth twice daily. levothyroxine (SYNTHROID) 200 mcg tablet once daily. folic acid 1 mg tablet once daily. cetirizine (ZYRTEC) 10 mg tablet Take by mouth as needed. vitamin B complex (B COMPLEX ORAL) Take by mouth. ondansetron (ZOFRAN) 4 mg tablet as needed. (Patient not taking: No sig reported) No current facility-administered medications for this visit. ALLERGIES Allergen Reactions Ciprofloxacin Unknown Flagyl [Metronidazo* Unknown Levofloxacin Unknown Penicillins Unknown, Other: See Comments Seasonal Allergies Unknown Soy Unknown Vancomycin Unknown Personal Habits: -Smoking: no -ETOH: no -Illegal drug use/marijuana: no -NSAIDs: no -Recent antibiotics: no PHYSICAL FINDINGS OF NOTE: General: alert and appropriate, in no distress and well-hydrated, well nourished , Psych: Appropriate mood and interaction Skin: no rash noted, Head: normocephalic, no abnormality or lesion noted, Eyes: visual acuity is grossly normal, no injection,, and EOMI, Ears: external ears normal without erythema or edema, Nose: external nose normal without rhinorrhea, Oropharynx: moist mucus membranes, no tonsillar hypertrophy/exudate, uvula midline and pharynx non-erythematous, lips, teeth and gums are without obvious lesion, Neck: full ROM, no cervical LNs noted, Respiratory: breathing non-labored, and no grunting/flaring/retractions, Chest: equal chest rise with normal respiratory effort, Abdomen: flat appearing. Visible protrusions or hernias: No Incisions/scars: None Areas of pain/tenderness: Denies Neuro: Patient seen sitting with normal appearing strength and coordination REVIEWED ITEMS Recent Labs Component Latest Ref Rng AND Units 02/24/2022 Protein, Total 6.3 - 8.0 g/dL 6.8 Albumin 3.9 - 4.9 g/dL 3.8 (L) Calcium 8.5 - 10.2 mg/dL 10.0 Bilirubin, Total 0.2 - 1.3 mg/dL 0.4 Alkaline Phosphatase 34 - 123 U/L 152 (H) AST 13 - 35 U/L 30 ALT 7 - 38 U/L 17 Glucose 74 - (more content not included)... [facility] 04-19-2022 History of Presen t illness Narrative VIRTUAL VISIT FOLLOW UP Dianelys Womack [id number] 1950 has requested a video telemedicine for follow up of diarrhea. Dianelys Womack verbalized informed consent to proceed with the video telemedicine follow up consultation. Dianelys Womack was informed that the details of this video visit would be recorded as part of their electronic medical record. Patient location at time of call: personal residence Additional encounter participants and relationship: daughter, Renetta I had a virtual visit with Dianelys Womack today with her daughter, Renetta, for follow up of diarrhea. Last seen on 10/28/[address] Tejeda. UPDATED HISTORY: Dianelys has been feeling better from a GI standpoint since her surgery in February, but reports that she currently has a cold (met with her PCP today for this). She was having a small amount of rectal mucus since surgery however she met with [facility] last week and since that visit has been feeling very much improved from that standpoint, with reported resolution in those symptoms. However she continues to experience a feeling of fullness after eating anything, incomplete emptying during bowel movements and sore spots on her abdomen that only hurt when touched. I just want something that will call my stomach down. Current Clinical Symptoms # of bowel movements daily: 2-3 (pt reported normal is 1/day) # of liquid stools daily: 0 Consistency: soft, formed Bloody bowel movements: no Urgency: yes- will have a BM but then feel the need that she has to go back to the bathroom and have another Abdominal pain: yes- Location: bilateral upper quadrants. Description: aching. Rates 4/10. Triggers: pressure to that area. Alleviating factors: GasX and Xanax. Abdominal distention: yes- feels very full soon after eating a little bit of anything. Says this has been ongoing for 6 months. Nausea/vomiting: no Appetite: fair-poor, but says this has been an ongoing problem even prior to surgery Weight loss over last 3 months: no Stable reported weight is 180 lbs. She is unsure what her recent weight is because she hasn't weighed herself recently. PAST SURGICAL HISTORY Procedure Laterality Date ABDOMINAL SURGERY HX REMOVAL GALLBLADDER VAGINAL HYSTERECTOMY Current Outpatient Medications Medication Sig Dispense Refill neomycin 500 mg tablet Take 2 tablets by mouth at 9pm and take 2 tablets by mouth at 11pm the night before surgery. 4 tablet 0 OMEPRAZOLE ORAL Take 40 mg by mouth once daily. ALPRAZolam (XANAX) 1 mg tablet Take 1 mg by mouth as needed. Lactobacillus acidophilus (PROBIOTIC ORAL) Take by mouth once daily. amLODIPine (NORVASC) 5 mg tablet Take 5 mg by mouth once daily. gabapentin (NEURONTIN) 600 mg tablet twice daily. traMADol (ULTRAM) 50 mg tablet as needed. KLOR-CON M20 20 mEq tablet Take 20 mEq by mouth twice daily. levothyroxine (SYNTHROID) 200 mcg tablet once daily. folic acid 1 mg tablet once daily. cetirizine (ZYRTEC) 10 mg tablet Take by mouth as needed. vitamin B complex (B COMPLEX ORAL) Take by mouth. ondansetron (ZOFRAN) 4 mg tablet as needed. (Patient not taking: No sig reported) No current facility-administered medications for this visit. ALLERGIES Allergen Reactions Ciprofloxacin Unknown Flagyl [Metronidazo* Unknown Levofloxacin Unknown Penicillins Unknown, Other: See Comments Seasonal Allergies Unknown Soy Unknown Vancomycin Unknown Personal Habits: -Smoking: no -ETOH: no -Illegal drug use/marijuana: no -NSAIDs: no -Recent antibiotics: no PHYSICAL FINDINGS OF NOTE: General: alert and appropriate, in no distress and well-hydrated, well nourished , Psych: Appropriate mood and interaction Skin: no rash noted, Head: normocephalic, no abnormality or lesion noted, Eyes: visual acuity is grossly normal, no injection,, and EOMI, Ears: external ears normal without erythema or edema, Nose: external nose normal without rhinorrhea, Oropharynx: moist mucus membranes, no tonsillar hypertrophy/exudate, uvula midline and pharynx non-erythematous, lips, teeth and gums are without obvious lesion, Neck: full ROM, no cervical LNs noted, Respiratory: breathing non-labored, and no grunting/flaring/retractions, Chest: equal chest rise with normal respiratory effort, Abdomen: flat appearing. Visible protrusions or hernias: No Incisions/scars: None Areas of pain/tenderness: Denies Neuro: Patient seen sitting with normal appearing strength and coordination REVIEWED ITEMS Recent Labs Component Latest Ref Rng & Units 02/24/2022 Protein, Total 6.3 - 8.0 g/dL 6.8 Albumin 3.9 - 4.9 g/dL 3.8 (L) Calcium 8.5 - 10.2 mg/dL 10.0 Bilirubin, Total 0.2 - 1.3 mg/dL 0.4 Alkaline Phosphatase 34 - 123 U/L 152 (H) AST 13 - 35 U/L 30 ALT 7 - 38 U/L 17 Glucose 74 - 99 mg/dL 98 BUN 7 - 21 mg/dL 20 Creatinine 0.58 - 0.96 mg/dL 0.82 Sodium 136 - 144 mmol/L 138 Potassium 3.7 - 5.1 mmol/L 4.5 Chloride 97 - 105 mmol/L 105 CO2 22 - 30 mmol/L 22 Anion Gap 9 - 18 mmol/L 11 eGFR >=60 mL/min/1.73m 76 WBC 3.70 - 11.00 k/uL 6.18 RBC 3.90 - 5.20 m/uL 4.54 Hemoglobin 11.5 - 15.5 g/dL 12.1 Hematocrit 36.0 - 46.0 % 38.0 MCV 80.0 - 100.0 fL 83.7 MCH 26.0 - 34.0 pg 26.7 MCHC 30.5 - 36.0 g/dL 31.8 RDW-CV 11.5 - 15.0 % 14.6 Platelet Count 150 - 400 k/uL 161 MPV 9.0 - 12.7 fL 10.6 Absolute nRBC <0.01 k/uL <0.01 Component Latest Ref Rng & Units 10/31/2021 C. difficile PCR Negative for C. difficile toxin by PCR Negative for C. difficile toxin by PCR Calprotectin, Fecal 0 - 50 mg/kg 205.7 (H) Last Endoscopy Colonoscopy (12/06/2021)- Dr. Tejeda Findings: The perianal and digital rectal examinations were normal. A polypoid large mass was found in the rectum 2 cm from the dentate line. The mass was partially circumferential (involving one-half of the lumen circumference). In addition, its diameter measured twenty-nine to thirty mm. Biopsies were taken with a cold forceps for histology. No additional abnormalities were found on retroflexion. 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 - Despite water immersion technique manual pressure supine position and changing scope to smaller GIF scope, endoscope could not be advanced safely. - Rule out malignancy, tumor in the rectum. Biopsied. Pathology A. Rectum, mass, biopsy: - Superficial fragments of traditional serrated adenoma Last Procedure OR (03/03/2022)- Dr. Vera Operation: Endoscopic submucosal dissection (28210) and transanal endoscopic removal of the larger rectal lesion Findings: Full colonoscopy, polyp at descending colon, 10 mm hot snare. Additionally, large rectal lesion extending from the dentate line up to the mid rectum occupying 40% of the rectal circumference at the left anterior position and endoscopic submucosal dissection was performed. The size is 6 cm. Pathology: A. Colon, descending polyp, polypectomy: - Fragments of tubular adenoma B. 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 - Low-grade dysplasia focally present at the peripheral mucosal margin. IMPRESSION (copied from previous notes and reflects today's medical decision making): Dianelys Womack is a 71 year old female with 6 month h/o abdominal pain, diarrhea, loss of appetite, nausea, chills and fatigue. Only testing has been blood work; also had a CT but said this was for follow up of AAA. Has been tried on Miralax (because she strains), Zofran, tramadol, and Xifaxan (took only 1 pill per day; could not tolerate higher dose) with ongoing symptoms. She underwent a colonoscopy in 11/2021 and was found to have a large polypoid rectal mass 2 cm from the dentate line- biopsies revealed fragments of traditional serrated adenoma. On 03/03/2022 she underwent endoscopic submucosal dissection (43090) and transanal endoscopic removal of the larger rectal lesion with Dr. Vera- path detailed above. She followed up with ELIZABET Owens USED CAR SALESPERSON, s/p surgery and reported feeling improved overall but was still having nausea and stomach aches. Possible etiologies for her symptoms include: - Microscopic colitis - IBD - Celiac - SIBO - PUD - Functional PMHx: Neuropathy- on gabapentin Stage 3 CKD HTN- on amlodopine AAA SBO- 20 years ago PSH: Hysterectomy Oophorectomy Cholecystectomy T&A She presents virtually today for follow up and endorses feeling improved since surgery but admits that she experiences early satiety, incomplete evacuation during BM's and an unsettled stomach. Denies any rectal bleeding or drainage/mucous. Reviewed the plan as outlined below- will discuss case with Dr. Tejeda. If rectal issues return, would recommend that she follow up with [facility] for possible JOHNATHAN. PLAN - Continue current medication regimen - Trial of IBGard=>if symptoms persist despite IBGard, would recommend either Bentyl or Levsin - Repeat fecal calpro (fax to #[phone], per pt preference) - CTe to further assess reported abdominal pain - Repeat colonoscopy in 08/2022 for polyp surveillance which was ordered by Dr. Tejeda already=>if early satiety persists, would recommend completing EGD at same time; if rectal bleeding returns, would recommend we complete this sooner - Could consider ARM if feelings of incomplete evacuation persist - Follow up with Dr. Tejeda in 3-6 months I spent 32 minutes in the virtual visit, with more than 50% of the total [id number] time of the visit in counseling / coordination of care. I have confirmed and edited as necessary, the PFSH and ROS obtained by others. Unrelated to E/M, telemedicine, or virtual visit service provided within previous 7 days. No E/M service or procedure anticipated within next 24 hours. Debbi Hammond APRN.LENO SEWER April 19, 2022 5:49 PM Answers submitted by the patient for this visit: Review of [facility] (Submitted on 04/19/2022) Fever: No Chills: No Night Sweats: No Unitentional Weight Change: No A Cough: No Difficulty Breathing: No Chest Pain: No Belly pain: Yes A feeling of fullness or have belly pain after eating: Yes Food getting stuck in your throat or chest after eating: No Nausea - that is, a feeling like you could vomit: No Regurgitation - that is, food or liquid coming back up into your throat or mouth without vomiting, or feel burning behind your breast bone: Yes Loss of appetite: Yes To throw up or vomit: No Blood in your stools: No Black tarry stools: No Loose or watery stools: No The feeling like you need to empty your bowels right away - that is, feel as if you would have an accident: Yes Bowel incontinence - that is, have an accident because you cannot make it to the bathroom in time: No Problems with straining while having bowel movements , hard or lumpy stools, or feel unfinished (that you have not passed all your stool): Yes Pain in rectum or anus during bowel movements: Yes Problems with jaundice - that is, yellow discoloration of your skin or eyes, now or in the past: No Problems with having to flush the toilet more than two times due to oily stool, or see stool floating with oil: Yes documented in this encounter [facility] 04-11-2022 Note HNO ID: [id number] Author: Melody Rosado APRN.CNP Service: ? Author Type: Nurse Practitioner Type: Progress Notes Filed: 04/11/2022 2:58 PM Note Text: COLORECTAL SURGERY Post-Op virtual Visit Dianelys Womack returns for a post-operative visit after undergoing surgery, on 03/03/2022. SURGEON: Fei Vera M.D. CROWN BLOCKER: CROWN BLOCKER: Pierre Tinoco MD. No qualified resident available. He participated in all portions of the surgery documented. This includes patient positioning, abdominal access, exposure, dissection and abdominal closure. . No qualified resident was available and he was instrumental in huddling and assistance and closure of the procedure. SURGERY/PROCEDURE: Endoscopic submucosal dissection (24795) and transanal endoscopic removal of the larger rectal lesion ANESTHESIA: General OPERATIVE INDICATIONS: Laterally spreading tumor of the rectum and polyp in the descending colon. Endoscopic submucosal dissection of the rectal lesion with Raptor grasper retraction. FINDINGS: Full colonoscopy, polyp at descending colon, 10 mm hot snare. Additionally, large rectal lesion extending from the dentate line up to the mid rectum occupying 40% of the rectal circumference at the left anterior position and endoscopic submucosal dissection was performed. The size is 6 cm. OPERATIVE INDICATIONS: This is a 71-year-old woman, who was referred to me for further management of this large rectal lesion. After extensive discussion, it was decided to proceed with local excision of this tumor. Was feeling pretty good after first leaving Maybe some upset stomach, minor nothing serious Stomach got upset and started having diarrhea Mucus-y BMs have been normal all this week Stomach aches when she wakes up, feels like it will go away after the BM but doesn't Feel nauseous before as well Would have a lot of gas The mucus was coming out and sit at the bottom of the toilet- same kind of mucus- this week is normal with the BMs And just pieces of stool everywhere Doesn't feel totally emptied- had to go back twice to the bathroom, this is not normal Going once per day Bleeding: none Fever/chills: none Path: FINAL DIAGNOSIS A. Colon, descending polyp, polypectomy: - Fragments of tubular adenoma B. 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 - Low-grade dysplasia focally present at the peripheral mucosal margin. / 03/08/2022 Current Outpatient Medications Medication Sig Dispense Refill neomycin 500 mg tablet Take 2 tablets by mouth at 9pm and take 2 tablets by mouth at 11pm the night before surgery. 4 tablet 0 OMEPRAZOLE ORAL Take 40 mg by mouth once daily. ALPRAZolam (XANAX) 1 mg tablet Take 1 mg by mouth as needed. Lactobacillus acidophilus (PROBIOTIC ORAL) Take by mouth once daily. amLODIPine (NORVASC) 5 mg tablet Take 5 mg by mouth once daily. gabapentin (NEURONTIN) 600 mg tablet twice daily. traMADol (ULTRAM) 50 mg tablet as needed. KLOR-CON M20 20 mEq tablet Take 20 mEq by mouth twice daily. levothyroxine (SYNTHROID) 200 mcg tablet once daily. folic acid 1 mg tablet once daily. cetirizine (ZYRTEC) 10 mg tablet Take by mouth as needed. vitamin B complex (B COMPLEX ORAL) Take by mouth. ondansetron (ZOFRAN) 4 mg tablet as needed. (Patient not taking: No sig reported) No current facility-administered medications for this visit. ALLERGIES Allergen Reactions Ciprofloxacin Unknown Flagyl [Metronidazo* Unknown Levofloxacin Unknown Penicillins Unknown, Other: See Comments Seasonal Allergies Unknown Soy Unknown Vancomycin Unknown There were no vitals taken for this visit. On camera, pt appears healthy Assessment Assessment: BMs: doing well this week, worried that she will have a problem again Overall doing ok We had a discussion with her daughter in the background. She struggles to recall things so it really helps when her daughter is there. From what I can gather, before the colonoscopy with polyp removal, she had ongoing GI issues including nausea, stomach ache, trouble eating,etc in addition to bowel issues and incomplete emptying, mucus. The bowel issues have improved but she feels a stomach ache and nausea again. We discussed that from a polyp removal, low in the rectum, we would expect mucus drainage for a while but she is without alarm s/s, specifically no fevers, bleeding, vomiting, etc. For this reason, I will message Debbi RADHAMES HammondN-ALEX to see if she can do VV with Dianelys to review GI concerns and then we can all re-convene. If her rectal symptoms are persistent, which we discussed, then she will need to come in person for a JOHNATHAN and we can coordinate this with any GI recommendations since she lives far away. Plan: No restrictions Plan is repeat colonoscopy in 08/2022 for polyp surveillance which was ordered by Dr. Tejeda already See above Melody (more content not included)... [facility] 03-28-2022 Miscellaneous Notes Called and spoke with patient She is upset that a lot of her GI symptoms that she had prior to the ESD in February are still persisting. She has loose stools, large amounts of gas, and difficulty tolerating certain foods She would like to know how to manage these symptoms and what is causing these. Advised that she should reach out to Dr Tejeda's office to discuss her GI symptoms as she was seeing him prior to ESD for these concerns. Patient will reach out to his office to discuss [phone] Dianelys Womack complains of watery diarrhea. Electronically signed by Stephanie Maradiaga [facility] [place] 03/28/[place]22 2:00 PM EST documented in this encounter [facility] 03-10-2022 Miscellaneous Notes Called and spoke with patient S/p ESD of rectal mass with Jose on Noted some drops of blood in the toilet after bowel movements - advised this is to be expected at this time, she is having no other signs or symptoms of concern. Advised weakness, dizziness, lethargy, or profuse bleeding - go to ED She has some gas pains - advised try OTC gasx this should help, call back if not relieved after trying this Discussed path results and recommendations again, patient appreciative of call, verbalized understanding [phone] Dianelys Womack asked to speak with Lety. She claims she is having stomach issues since surgery. Although she stated she has had stomach issues previously. She couldn't sleep last nigh and asked about getting medication. I asked her if she has scheduled her appt with [facility] regarding abdominal aneurysm and she replied no not yet I want to get over one thing before I do another. I encouraged her to make the appt. documented in this encounter [facility] 03-09-2022 Miscellaneous Notes I called patient and left message. An order for vascular surgery consult was placed. 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 Electronically signed by Stephanie Maradiaga [facility] [place] 03/08/2022 10:57 AM EST documented in this encounter [facility] 03-03-2022 Note HNO ID: [id number] Author: Rohini Stephenson APRN.HUMANITIES DEPARTMENT CHAIR Service: ? 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 Method: awake Cricoid Pressure: No Manual In-Line Stabilization: No Difficult Mask: No Airway Accessory: oral airway (10cm Dima Airway) Final Airway Details Final airway type: endotracheal airway Final Endotracheal Airway: ETT Cuffed: yes Successful intubation technique: flexible bronchoscopy (BFlex Size 3.8) Endotracheal tube insertion site: oral ETT size (mm): 6.0 (6.0 Johann ETT) Measured from: lips Measurement (cm): 23 Placement verified by: chest auscultation and capnometry Number of attempts at approach: 1 Ventilation between attempts: none Failed airway: no Unrecognized esophageal intubation: no Difficult airway (Previous Hx of Difficult Intubation) Comments Pt administered lidocaine 4% nebulizer, then atomizer topical lidocaine 4%, viscous lidocaine lollipop to posterior pharynx, fiberoptic scope easily passed thru 10cm pink airway, ETT easily passed thru vocal cords, pt tolerated awake fiberoptic intubation on first attempt. SIGNATURE: Rohini Stephenson APRN.CRNA PATIENT NAME: Dianelys Womack DATE: March 03, 2022 TIME: 1:16 PM CSN: [id number] [facility] 03-03-2022 Note HNO ID: [id number] Author: Rohini Stephenson APRN.CRNA Service: ? Author Type: Nurse Hoisting Laborer Type: Anesthesia Procedure Notes Filed: 03/03/2022 1:11 PM Note Text: ANESTHESIOLOGY PROCEDURE NOTE PIV General Information Procedure Start Time/Medication Administration: 03/03/2022 12:50 PM Patient Location: OR Staffing Anesthesiologist: Lakeshia Delacruz MD, PhD Performed by: anesthesiologist Preparation Site Prep: alcohol Procedure Details Indication: need for IV access Needle Size/Type: 20 gauge angiocath Orientation: Right Location: Hand Imaging Guidance Used: No SIGNATURE: Rohini Stephenson APRN.CRNA PATIENT NAME: Dianelys Womack DATE: March 03, 2022 TIME: 1:11 PM CSN: [id number] [facility] 03-02-2022 Miscellaneous Notes Called and spoke with patient Advised that she has a listed allergy to flagyl, so I did not send that to her pharmacy Patient verbalized understanding Dianelys Womack asked why she didn't get the flagyl and just the neomycin? Electronically signed by Stephaniemathieu Maradiaga [facility] [place] 03/01/2022 4:19 PM EST documented in this encounter [facility] 03-01-2022 Miscellaneous Notes Dianelys Womack did not receive any information by mail. As discussed, please fax to daughterRenetta [phone] Electronically signed by Cayden Burnett [facility] [place] 03/01/2022 11:53 AM EST documented in this encounter [facility] 02-28-2022 Miscellaneous Notes Called and spoke with patient She would like pt ed info faxed to her daughter's fax number She also wanted to review meds prior to surgery - reviewed what PACC advised as far as medication stopping and/or taking Patient appreciative of call She was also interested in possibly hooking up with cardiovascular provider here at [facility] for AAA She will call me if interested deciding to proceed with care with CV at [facility] - I am happy to help coordinate [phone] Dianelys Womack has questions about meds she can and can't take prior to surgery. Gisselle Tramadol probotic Electronically signed by Stephaniemathieu Maradiaga [facility] [place] 02/28/2022 9:27 AM EST documented in this encounter [facility] 02-26-2022 Miscellaneous Notes Patient calling she has colorectal surgery on 03/03/22. Patient was given instructions on taking medications prior to surgery. Patient stated they did not go over her tramadol or Klor-con and she is concerned. Unable to see specifics on these medications to help patient. Patient denies any new or worsening symptoms of which a provider is not aware:Yes. Conferenced to [facility] clerk operator [facility] for Colorectal Surgery tongue and groove machine feeder provider for Dr. Fei Vera. GO TO THE EMERGENCY ROOM OR CALL 911 IF: * You develop any new symptoms * Your condition worsens * You are concerned or anxious about your condition for any other reason. If you have any questions, you can call Nurse shell mold bonding machine operator back. documented in this encounter [facility] 02-24-2022 Miscellaneous Notes Called and spoke with patient She accidentally left and missed pt ed appt Reviewed pt ed over the phone Medications sent to pharmacy Will send pt ed info to her via mail Patient appreciativ eof call The Patient is returning the nurses call back. Please call patient at [phone] documented in this encounter [facility] 02-24-2022 Miscellaneous Notes Called patient. No answer, left message Advised that she is late for appt with nurse for preop education Advised that she come to appt if she is still here, if running late no problem If she left for the day, she should call the office so we can review pt ed over the phone documented in this encounter [facility] 02-24-2022 Instructions Karson Monte APRN.LENO SEWER - 02/24/2022 10:00 AM EST PATIENT PREOPERATIVE INSTRUCTIONS Milagros Vera MD has scheduled you for your procedure at this surgery center: [facility] [place] Scheduling Office: [phone] --[address] [place] [address]. Please read below carefully for your personalized instructions. Dietary Restrictions: - Follow bowel prep instructions: clear liquids need to be stopped 2 hours prior to schedule arrival at facility Medications: Unless instructed differently below, stay on all of your medications until your surgery. Approved medications to take the morning of surgery with a sip of water: OMEPRAZOLE ALPRAZolam (XANAX) amLODIPine (NORVASC) gabapentin (NEURONTIN) levothyroxine (SYNTHROID) - Your pain medication may cause thinning of your blood. Please see directions for Blood Thinning Medications. If you start any new medications after today's visit, please contact the surgeon's office. Blood Thinning Medications: - Stop NSAIDS (Ibuprofen, Advil, Aleve, Motrin, Celebrex, Mobic, etc.) 7 days before surgery, as directed by your surgeon. - Stop Vitamin E, ALL multi-vitamins, herbals and dietary supplements 7 days before surgery. - You may take Tylenol (Acetaminophen) or any of your pain medications that do not contain aspirin or NSAIDS as needed. Important Reminders: - If you are prescribed inhalers for breathing, continue using them. - Candy, mints, and tobacco products are NOT permitted the morning of surgery. - Hearing aids, dentures and glasses may be worn the morning of surgery. - NO jewelry, body piercings, makeup, hairpins or contacts are to be worn the day of surgery. If you develop symptoms such as a fever, cold, or flu, or have other changes to your health within TWO DAYS of scheduled surgery or the morning of surgery, please contact the surgery center above. Personal Belongings: -Please have photo ID and insurance cards. -If you do not have a copy of advance directives on file with us, please bring a copy with you on the day of surgery. - Leave ALL valuables and money at home or with family members. For Outpatient Procedures: - YOU MUST HAVE A RESPONSIBLE SUPERVISOR CLOTH WINDING TAKE YOU HOME. A SPEEDOMETER MECHANIC OR AREA DEVELOPMENT CONSULTANT CANNOT BE MADE A RESPONSIBLE SUPERVISOR CLOTH WINDING. - We recommend that a responsible person stays with you overnight to take care of you. - You cannot stay in a hotel alone after outpatient surgery. You will not be permitted to have your surgery, if you do not have someone to take care of you. Arrival Time for Surgery: - To obtain your arrival time for surgery, call your physician's office the day before your surgery. - If your surgery is scheduled for Monday, call the Monday before. Your surgeon s splunk consultant will tell you what time to call the office. - If you have not reached the departmental splunk consultant by 5 P.M., call [phone] after 5 P.M. the day before your surgery. Please be aware that emergency situations arise, which may delay or change your surgical time. If this happens, we will notify you as soon as possible and regret any inconvenience. If you already have an Advance Directive, please fax a copy to [phone] or email to for it to be added to your chart. If you do not have an Advance Directive, you can find the appropriate form and more information at [email or web address]. We recommend that you complete the Advance Directive form found on the website and bring it with you the day of your surgery. It can be witnessed and scanned into your chart that day. Karson Monte APRN.CNP documented in this encounter [facility] 02-24-2022 History and physical note HISTORY AND PHYSICAL EXAMINATION SERVICE DATE: 02/24/2022 SERVICE TIME: 10:49 AM PRIMARY CARE PHYSICIAN: Monika Lehman MD REASON FOR VISIT: Dianelys Womack is a 71 year old female who is scheduled for Procedure(s): COMBINED CO2 COLONOSCOPY AND LAPAROSCOPY (N/A) TAMIS EXC RECTAL TUMOR TRANSANAL MINIMALLY INVASIVE SURGERY (N/A) at the request of Dr. Milagros Vera for consultation. My final recommendation will be communicated back to the requesting physician by way of shared medical record or letter. Subjective The patient has the following: ACTIVE PROBLEM LIST Primary Hypertension Hypothyroidism Gastroesophageal Reflux Disease Without Esophagitis Chronic Renal Impairment, Stage 2 (Mild) History of Anesthesia Complications Cva (Cerebral Vascular Accident) (Hcc) Former Smoker Thoracoabdominal Aneurysm Anxiety and Depression Difficult Intubation History of Difficult Intubation COVID-19 Immunization Status Overdue - COVID-19 VACCINE (4 - Booster for Pfizer series) Overdue since 03/11/2021 01/14/2021 Imm Admin: COVID-19 vaccine, age 12+ yr (PFIZER-BIONTECH - PURPLE TOP) 04/14/2020 Imm Admin: COVID-19 vaccine, age 12+ yr (PFIZER-BIONTECH - PURPLE TOP) 03/24/2020 Imm Admin: COVID-19 vaccine, age 12+ yr (PFIZER-BIONTECH - PURPLE TOP) Patient reports being fully vaccinated against COVID-19. Patient reports no prior COVID-19 infections. CHIEF COMPLAINT: Pre-Op Visit HPI: 71 year old female who has Rectal Mass seen for PACC. She states having abdominal pain rates pain 5/10 and bloody stools at time. She had a colonoscopy performed on 12/06/2021 a polypoid large rectal mass 2 cm was found. This was biopsied to reveal superficial fragments of traditional serrated adenoma. Scheduled for COMBINED CO2 COLONOSCOPY AND LAPAROSCOPY TAMIS EXC RECTAL TUMOR TRANSANAL MINIMALLY INVASIVE SURGERY on 03/03/22. Denies any fever, chills, nausea, vomiting, SOB, dizziness, lightheadedness, palpitations, syncope or chest pain. She has elected to proceed with the surgical procedure. REVIEW OF SYSTEMS: General: No weight loss, malaise or fevers. Neurological: Positive for: strokes (2004). Patient's stroke is without residual deficits. Negative for: seizures and TIA. Respiratory: Positive for: tobacco use (Former smoker on and off 15 years 1 PPD. Quit 2011). Negative for: asthma, bronchitis, COPD, prior COVID-19 infection, current cough, dyspnea, orthopnea, pneumonia within 6 weeks, URI < 2 weeks and obstructive sleep apnea. Cardiovascular: + Palpitations and Fluttering denies at this time Positive for: hypertension Negative for: AICD/PPM, anticoagulation therapy, atrial fibrillation, CAD, chest pain, congenital heart defect, DVT/PE, hyperlipidemia and murmur/valvular heart disease. GI: See HPI. Positive for: abdominal pain, GERD, liver disease (Fatty liver) and history of polyps Negative for: colon cancer, diverticulitis, hepatitis, pancreatitis and rectal cancer. : No history of dysuria, frequency or incontinence, stones or chronic kidney disease. No difficulty urinating, nocturia > 1 time per night or hematuria. Endocrine: No history of diabetes. Has not taken steroids within the past 30 days. No history of endocrinological symptoms or problems. Positive for: hypothyroidism. Negative for: diabetes mellitus. Hematology: No history of bleeding or clotting disorder. Patient is not taking anti-coagulation or platelet medications. No history of hematological symptoms or problems. Oncology: No history of CA metastasis, chemo within 30 days, or radiotherapy within 90 days. No history of oncological symptoms or problems. Psych: Positive for: anxiety and depression. Negative for: bipolar disorder and drug dependency. Musculoskeletal: Positive for: back pain. Negative for: joint pain. Skin: Negative for lesions, rash and itching. PAST MEDICAL HISTORY Diagnosis Date Anxiety and depression 02/24/2022 Arrhythmia heart arrhythima Arthritis CKD (chronic kidney disease) stage 3, GFR 30-59 ml/min (HCC) Difficult airway for intubation Difficult intubation 02/24/2022 Fatty liver Former smoker 02/24/2022 Hard to intubate History of difficult intubation 02/24/2022 Hypertension Neuropathy Stroke (HCC) 2004 Thoracoabdominal aneurysm Thyroid disease PAST SURGICAL HISTORY Procedure Laterality Date ABDOMINAL SURGERY HX REMOVAL GALLBLADDER VAGINAL HYSTERECTOMY FAMILY HISTORY Problem Relation Age of Onset other (brain issues? deteriation of cerabellum) Mother Social History Tobacco Use Smoking status: Former Types: Cigarettes Quit date: 2011 Years since quittin.0 Smokeless tobacco: Never Vaping Use Vaping Use: Never used Substance Use Topics Alcohol use: Never Drug use: Never Prior to Admission medications as of 02/24/22 1033 Medication Sig Last Dose Taking OMEPRAZOLE ORAL Take 40 mg by mouth once daily. Taking Yes ALPRAZolam (XANAX) 1 mg tablet Take 1 mg by mouth as needed. Taking Yes Lactobacillus acidophilus (PROBIOTIC ORAL) Take by mouth once daily. Taking Yes amLODIPine (NORVASC) 5 mg tablet Take 5 mg by mouth once daily. Taking Yes gabapentin (NEURONTIN) 600 mg tablet twice daily. Taking Yes traMADol (ULTRAM) 50 mg tablet as needed. Taking Yes KLOR-CON M20 20 mEq tablet Take 20 mEq by mouth twice daily. Taking Yes levothyroxine (SYNTHROID) 200 mcg tablet once daily. Taking Yes folic acid 1 mg tablet once daily. Taking Yes cetirizine (ZYRTEC) 10 mg tablet Take by mouth as needed. Taking Yes vitamin B complex (B COMPLEX ORAL) Take by mouth. Taking Yes polyethylene glycol 3350 (MIRALAX, GLYCOLAX) 17 gram/dose powder Use as directed for Miralax / Gatorade Bowel Prep Kit Gatorade Sports Drink Use as directed for Miralax / Gatorade Bowel Prep Kit Bisacodyl (DULCOLAX) 5 mg tab Use as directed for Miralax / Gatorade Bowel Prep Kit neomycin 500 mg tablet Take 2 tablets by mouth at 9pm and take 2 tablets by mouth at 11pm the night before surgery. ondansetron (ZOFRAN) 4 mg tablet as needed. Patient not taking: Reported on 02/24/2022 Not Taking No medication comments found. ALLERGIES Allergen Reactions Ciprofloxacin Unknown Flagyl [Metronidazo* Unknown Levofloxacin Unknown Penicillins Unknown, Other: See Comments Seasonal Allergies Unknown Soy Unknown Vancomycin Unknown Objective PHYSICAL EXAM: General: alert and oriented and healthy appearance. Skin: normal color, no rash or lesions. HEENT: pupils equal round and pupils reactive to light. Cardiovascular: regular rate and rhythm, normal S1 and S2, no rub, murmurs, or gallop. Respiratory: normal breath sounds, no wheezes or crackles. No chest wall deformity or tenderness. Abdomen: bowel sounds present and soft. Extremities: no deformity, no edema or tenderness, no joint swelling or clubbing. Neurological: normal cognition and motor skills. Gait normal. No weakness or sensory deficit. PAIN ASSESSMENT: Pain Pain Level: 5 Pain Location: Abdomen-Mid Lower Description: Cramping Duration Units: Years Frequency: Intermittent Intervention/Comfort measure: Medication VITALS: BP 153/87[pt didn't take her BP meds today[ Pulse 63 Temp (Src) 97.2 (Temporal) Ht 5' 3 (1.60m) Wt 157 lb (71.2kg) SpO2 99% BMI 27.82 kg/(m^2). Diagnostic tests reviewed for today's visit: Lab Value Units Date High Low HB 13.2 g/dL 10/29/2021 15.5 11.5 HCT 42.2 % 10/29/2021 46.0 36.0 WBC 8.51 k/uL 10/29/2021 11.00 3.70 PLT 187 k/uL 10/29/2021 400 150 NA 143 mmol/L 10/29/2021 144 136 K 3.4 mmol/L 10/29/2021 5.1 3.7 GLUC 97 mg/dL 10/29/2021 99 74 BUN 19 mg/dL 10/29/2021 21 7 CREAT 1.17 mg/dL 10/29/2021 0.96 0.58 PTSEC No results within date range. INR No results within date range. APTT No results within date range. ALT 23 U/L 10/29/2021 38 7 AST 37 U/L 10/29/2021 35 13 TBILI 0.5 mg/dL 10/29/2021 1.3 0.2 TSH 0.048 mIU/L 10/29/2021 4.200 0.270 Lab Value Units Date High Low HCGQT No results within date range. UHCG No results within date range. HCG, BODY* No results within date range. Lab Value Units Date High Low ABORHD No results within date range. ABSCREEN No results within date range. No results found for: HBA1C No results found for this or any previous visit (from the past 8760 hour(s)). No results found for this or any previous visit (from the past 58857 hour(s)). Assessment History of anesthesia complications Patient reports she has a small passage way. She notes difficulty with intubation 15 years ago, needed a PEDS tube to be used. Primary hypertension Managed with amLODIPine (NORVASC) BP this visit 153/87 Patient denies SOB, dizziness, lightheadedness, palpitations, fluttering, syncope and chest pain Gastroesophageal reflux disease without esophagitis Managed with Lactobacillus acidophilus (PROBIOTIC ORAL) and OMEPRAZOLE Reports controlled and stable Hypothyroidism Managed with levothyroxine (SYNTHROID) Former smoker Patient reports Former smoker on and off 15 years 1 PPD. Quit 2011 Thoracoabdominal aneurysm Followed vascular surgeon Dr. Cece DOMINGUEZ, last visit 7 months Monitoring yearly with ultrasound CVA (cerebral vascular accident) (HCC) History 2004, notes no residual. Anxiety and depression Managed with ALPRAZolam (XANAX) History of difficult intubation Patient reports she has a small passage way. She notes difficulty with intubation 15 years ago, needed a PEDS tube to be used. Chronic renal impairment, stage 2 (mild) 10/29/21 BUN 7 - 21 mg/dL 19 Creatinine 0.58 - 0.96 mg/dL 1.17 High Sodium 136 - 144 mmol/L 143 Potassium 3.7 - 5.1 mmol/L 3.4 Low Chloride 97 - 105 mmol/L 105 CO2 22 - 30 mmol/L 29 Anion Gap 9 - 18 mmol/L 9 Estimated Glomerular Filtration Rate >=60 mL/min/1.73m 50 Low Sanchez Activity Status Index: METS: Climb a flight of stairs or walk up a hill (5.50 METs) DASI Score: 5.5 Patient denies any chest pain or undue shortness of breath with the above physical activity. STOP-Bang Score: Snores loudly Has or is being treated for high blood pressure Patient over 50 years old Denies feeling tired, fatigued, or sleepy during the daytime Has not been observed to stop breathing or choking/gasping during sleep BMI less than or equal to 35 kg/m^2 Non-male patient STOP-Bang Score: 3 [id number] Score: Hypertension history: Yes Stroke/TIA/thromboembolism history: Yes [id number] Score: 3 ARISCAT Score: Emergency procedure: No ARISCAT Score: ASA Class: 3 ANESTHESIA FINDINGS: Intubation History: Significant Anesthesia Considerations: none Airway History: Patient reports she has a small passage way. She notes difficulty with intubation 15 years ago, needed a PEDS tube to be used. Difficult airway documented by an anesthesiologist during past surgical procedure (Patient reports need PEDS tube) I - PHYSICAL EVALUATION AIRWAY Patient intubated: No. Tracheostomy tube not present Mallampati: IV. TM distance: >3 FB. Neck ROM: full ROM without neurological symptoms. Mouth opening: adequate. Short neck: no. Thick neck: no Beck present: no DENTAL Dentures, upper: partial. Dentures, lower: complete. II - ANESTHESIA PLAN ASA Score: 3 Anesthetic Plan: other Anesthetic plan additional comments: *PACC/TCI - anesthesia choice. Beta Barry Monitoring Plan Post Procedure Analgesic Plan Prepared for Surgery: optimally prepared for surgery, pending [see comment]. CBC, CMP, type and screen, CONABO, EKG and DOS exam CONSULTS: Patient does not require consults for optimization at this time Planned Anesthetic: other anesthesia choice The Following Tests/Procedures Have Been Initiated: Orders Placed This Encounter OMEPRAZOLE ORAL Sig: Take 40 mg by mouth once daily. ALPRAZolam (XANAX) 1 mg tablet Sig: Take 1 mg by mouth as needed. Instructions Given to Patient: Instructions located in the after visit summary. Patient given verbal and written preop instructions and voices comprehension and compliance. SIGNATURE: Karson Monte APRN.CNP PATIENT NAME: Dianelys Womack DATE: February 24, 2022 TIME: 9:45 AM PAGER/CONTACT #: documented in this encounter [facility] 01-12-2022 History and physical note COLORECTAL SURGERY New Patient Visit January 04, 2022 Chief Complaint: rectal lesion History of Present Illness: Dianelys Womack is a 71 year old female referred by Dr Tejeda who underwent colonoscopy on 12.06.2021 for the reason of abdominal pain, and diarrhea. She was found to have a polypoid large rectal mass 2 cm from the dentate line. This was biopsied to reveal superficial fragments of traditional serrated adenoma 12.06.2021 Colonoscopy Findings: The perianal and digital rectal examinations were normal. A polypoid large mass was found in the rectum 2 cm from the dentate line. The mass was partially circumferential (involving one-half of the lumen circumference). In addition, its diameter measured twenty-nine to thirty mm. Biopsies were taken with a cold forceps for histology. No additional abnormalities were found on retroflexion. 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 - Despite water immersion technique manual pressure supine position and changing scope to smaller GIF scope, endoscope could not be advanced safely. - Rule out malignancy, tumor in the rectum. Biopsied. Pathology A. Rectum, mass, biopsy: - Superficial fragments of traditional serrated adenoma PAST MEDICAL HISTORY Diagnosis Date Arrhythmia heart arrhythima Arthritis CKD (chronic kidney disease) stage 3, GFR 30-59 ml/min (HCC) Difficult airway for intubation Fatty liver Hard to intubate Hypertension Neuropathy Stroke (HCC) 2004 Thoracoabdominal aneurysm Thyroid disease PAST SURGICAL HISTORY Procedure Laterality Date ABDOMINAL SURGERY HX REMOVAL GALLBLADDER VAGINAL HYSTERECTOMY Current Outpatient Medications Medication Sig Dispense Refill Lactobacillus acidophilus (PROBIOTIC ORAL) Take by mouth once daily. amLODIPine (NORVASC) 5 mg tablet Take 5 mg by mouth once daily. gabapentin (NEURONTIN) 600 mg tablet twice daily. traMADol (ULTRAM) 50 mg tablet as needed. KLOR-CON M20 20 mEq tablet Take 20 mEq by mouth twice daily. levothyroxine (SYNTHROID) 200 mcg tablet once daily. folic acid 1 mg tablet once daily. cetirizine (ZYRTEC) 10 mg tablet Take by mouth as needed. vitamin B complex (B COMPLEX ORAL) Take by mouth. ondansetron (ZOFRAN) 4 mg tablet as needed. No current facility-administered medications for this visit. ALLERGIES Allergen Reactions Ciprofloxacin Unknown Flagyl [Metronidazo* Unknown Levofloxacin Unknown Penicillins Unknown, Other: See Comments Seasonal Allergies Unknown Soy Unknown Vancomycin Unknown Review of Systems / PACC screen: Do you have difficulty climbing a full flight of stairs without feeling short of breath? no Do you require oxygen for your breathing or have your gone to an emergency department because of breathing problems? no Are you on dialysis or have you been told that your kidneys do not work well as they should? yes CKD stage 3 Do have an implanted cardiac device (pacemaker, defibrillator etc.) that has not been checked in the last 6 months? no Have you had an organ transplant? no Have you been told that you had excessive bleeding during surgical procedures or do you take blood thinning medications other than aspirin? no Have you ever had a heart attack, heart stents/surgery, valve problems, or other heart problems? yes heart arrhythmia (patient states her heart skips a beat), HTN, thoracoabdominal aneurysm Have you had a stroke, seizures, or unexplained loss of consciousness? Yes hx of stroke 2005 Do you have a neurologic condition like Parkinson's disease or multiple sclerosis? no Have you or a blood relative had a life-threatening reaction to anesthesia? no Do you have cirrhosis of the liver or other liver disease? yes fatty liver Have you had a blood clot within the past year? no Do you take insulin or other injections for diabetes? no Do you have sleep apnea or have you been told you may have sleep apnea? no Do you have other implanted devices (deep brain stimulator, spinal cord stimulator, etc.)? no Physical Exam: Pulse 107 Temp 36.3 C (97.4 F) (Temporal) Ht 157.5 cm (5' 2 ) Wt 71.9 kg (158 lb 8 oz) SpO2 97% BMI 28.99 kg/m General Appearance: Well appearing, alert, in no acute distress, well-hydrated, well nourished. Lungs: Lungs clear to auscultation. No wheezing, rhonchi, rales. Heart: RRR without murmur, gallop, or rubs. No ectopy Edema: no Abdomen: Normal abdominal exam, Abdomen soft, non-tender. Bowel sounds normal. No masses, organomegaly Anorectal: Perianal skin is intact. No erythema, induration or excoriation. palpable lesion. No fissure, fistula or external hemorrhoids. Digital Rectal Exam: Anus: closed Resting tone: NORMAL Squeeze tone: NORMAL Cosmetician present: Yes Assessment Medical Decision Making: Assessment & Diagnosis: Dianelys Womack is a 71 year old female with rectal lesion Data Reviewed: Tests & Documents Reviewed/ordered: Review of prior operative reports Review of Pathology I have independently interpreted: colonoscopy I have discussed Dianelys Womack's treatment plan and/or results with her and friend. Treatment plan: ESD in the OR, Possible TAMIS possible TALE Colorectal Surgery Risk of morbidity, mortality and/or complications of treatment plan: moderate documented in this encounter [facility] 12-24-2021 Miscellaneous Notes Spoke to Dianelys and reviewed colonoscopy and EGD results. She notes improvement in diarrhea since the colonoscopy. Also previously noted something bulging in and out of her rectum but not since the procedure. Will ask Dr. Vera if he can attempt endoscopic or transanal resection of the polyp Taz Tejeda MD documented in this encounter [facility] 12-06-2021 Note Q3 Patient Name: Dianelys Womack Procedure Date: 12/06/2021 10:57 AM Date of : 1950 Admit Type: Outpatient Age: 70 Gender: Female Note Status: Finalized Attending MD: Kenton Kapadia MD Procedure: Upper GI endoscopy Indications: Epigastric abdominal pain Providers: Kenton Kapadia MD Referring Physician: Taz Tejeda MD (Referring MD) Medicines: General Anesthesia Complications: No immediate complications. Requesting Provider: Procedure: Pre-Anesthesia Assessment: - ASA Grade Assessment: II - A patient with mild systemic disease. After obtaining informed consent, the endoscope was passed under direct vision. Throughout the procedure, the patient's blood pressure, pulse, and oxygen saturations were monitored continuously. The Endoscope was introduced through the mouth, and advanced to the second part of duodenum. The upper GI endoscopy was accomplished without difficulty. The patient tolerated the procedure well. Moderate Sedation: MAC Findings: The examined esophagus was normal. The entire examined stomach was normal. The examined duodenum was normal. Impression: - Normal esophagus. - Normal stomach. - Normal examined duodenum. - No specimens collected. Estimated Blood Loss: Estimated blood loss: none. Recommendation: - Patient has a contact number available for emergencies. The signs and symptoms of potential delayed complications were discussed with the patient. Return to normal activities tomorrow. Written discharge instructions were provided to the patient. - Resume previous diet. - Continue present medications. Procedure Code(s): --- Professional --- 68343, Esophagogastroduodenoscopy, flexible, transoral; diagnostic, including collection of specimen(s) by brushing or washing, when performed (separate procedure) Diagnosis Code(s): --- Professional --- R10.13, Epigastric pain CPT copyright 2020 [employer]. All rights reserved. Attending Participation: I personally performed the entire procedure. Scope In: 11:20:21 AM Scope Out: 11:22:14 AM MD Kenton Rowe MD 12/06/2021 11:23:55 AM This report has been signed electronically by Kenton Kapadia MD Number of Addenda: 0 Note Initiated On: 12/06/2021 10:57 AM [facility] 12-06-2021 Nurse Note AMBULATORY PATIENT EDUCATION NOTE TOPIC: GI PROCEDURES: Colonoscopy with or without biopsies based on clinical findings Esophagogastroduodenoscopy(EGD) with or without biopies based on clinical findings, removal of polyps or lesions READINESS TO LEARN INSTRUCTION PROVIDED TO: Patient, readness to learn accessed prior to procedure COGNITIVE ABILITY: Alert and oriented PTED MOTIVATION TO LEARN: Interested FAMILY SUPPORT: High - Very involved in pt care IPATIENT LEARNS BEST BY: Individual Instruction FACTORS AFFECTING LEARNING: None PHYSICAL LIMITATIONS AFFECTING LEARNING: None LEARNING RESPONSE METHOD OF INSTRUCTION: Individual instruction PATIENT / FAMILY RESPONSE: Verbalizes understanding of: WORSENING CONDITION-Signs and symptoms of a worsening condition that warrant a call to the physician FOLLOW-UP PLAN: Patient instructed to call with any further issues SUPPLEMENTAL MATERIAL: Procedure Discharge Instructions REFERRAL (RECOMMENDATION): None Electronically Signed By: Anastasia Orlando RN documented in this encounter [facility] 11-29-2021 Miscellaneous Notes Attempted to reach the patient at the contact number that they provided [phone] (home). 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 Failure to have a responsible adult accompany the patient to their procedure appointment prevents the use of sedation or anesthesia for their procedure; and can result in cancellation of the procedure -NPO instructions were reviewed. -Clear liquids the day before the procedure -Instructions to contact their primary care provider regarding their medications and which medications to stop in preparation for their procedure -Number to call with questions or concerns [phone] Jessica Green RN BSN documented in this encounter [facility] 11-05-2021 Miscellaneous Notes JOAN- please let her know that new orders have been signed Taz Tejeda MD Orders pended in this encounter. Keiko Hernandez RN Please place new egd/colonoscopy w MAC orders to be scheduled at Q3 Please contact patient's daughter(Shy) to schedule. # [phone] documented in this encounter [facility] 10-28-2021 History of Presen t illness Narrative VIRTUAL VISIT NEW PATIENT NAME: Dianelys Womack [facility] NO: [id number] DATE: 10/28/2021 REASON FOR VISIT Dianelys Womack 1950 has requested a video telemedicine initial consultation for several GI symptoms including abdominal pain, diarrhea, loss of appetite, nausea, chills and fatigue. Symptoms have been present for 6 months- has seen PCP but has not had any testing other than blood work; also had a CT but said this was for follow up of AAA. Has been tried on several meds including Miralax, Zofran, tramadol, and Xifaxan (took only 1 pill per day; could not tolerate higher dose) with ongoing symptoms. Hard to get accurate description of symptoms (does not recall details) but currently symptoms are: Anywhere from 3 to 10 bowel movements per day- stool is watery to soft in consistency. Has been straining so was put on Miralax- has not impacted on number of BMs Has rectal urgency with fecal seepage- wears a pad Notes intermittent blood on TP which has been attributed to a hemorrhoid LLQ abdominal pain- comes and goes. Weight fluctuates up and down between 170 to 175 pounds but overall stable Answers submitted by the patient for this visit: Review of Systems Gastroenterology (Submitted on 10/28/2021) Fever: No Chills: Yes Night Sweats: Yes Unitentional Weight Change: No A Cough: No Difficulty Breathing: No Chest Pain: No Belly pain: Yes A feeling of fullness or have belly pain after eating: Yes Food getting stuck in your throat or chest after eating: No Nausea - that is, a feeling like you could vomit: No Regurgitation : No Loss of appetite: Yes To throw up or vomit: No Blood in your stools: No Black tarry stools: No Loose or watery stools: Yes The feeling like you need to empty your bowels right away: Yes Bowel incontinence: No Problems with straining while having bowel movements, hard or lumpy stools, or feel unfinished: Yes Pain in rectum or anus during bowel movements: Yes Problems with jaundice: No Problems with having to flush the toilet more than two times due to oily stool, or see stool floating with oil: No Had colonoscopy 5 years ago- told it was normal. PMH: Neuropathy- on gabapentin Stage 3 CKD HTN- on amlodopine AAA SBO- 20 years ago PSH: Hysterectomy Oophorectomy Cholecystectomy T&A IMPRESSION 70 year old female with 6 month h/o abdominal pain, diarrhea, loss of appetite, nausea, chills and fatigue. Only testing has been blood work; also had a CT but said this was for follow up of AAA. Has been tried on Miralax (because she strains), Zofran, tramadol, and Xifaxan (took only 1 pill per day; could not tolerate higher dose) with ongoing symptoms. Possible etiologies for her symptoms include: - Microscopic colitis - IBD - Celiac - SIBO - PUD - Functional PLAN D/C Miralax given diarrhea Labs (including celiac serologies) and stool studies EGD and colonoscopy with random colon biopsies Get results of recent CT scan F/U with [facility] after testing done- decide re next steps based on results I spent a total of 25 minutes on the date of the service which included preparing to see the patient, [id number] patient care, completing clinical documentation, obtaining and/or reviewing separately obtained history, counseling and educating the patient/family/caregiver, and ordering medications, tests, or procedures. Taz Tejeda MD documented in this encounter [facility] 09-14-2021 Note PROCEDURE: XR FOREAR M LT 2 VIEWS, XR WRIST LT 2V HISTORY: Pain in left arm ; acute pain after falling COMPARISON: None. FINDINGS: BONES:Thin band of sclerosis versus summation artifact across the body of scaphoid bone which could represent a nondisplaced fracture. Unremarkable elbow joint. SOFT TISSUES:No visible soft tissue swelling. EFFUSION:None visible. OTHER: Negative. IMPRESSION: 1. Summation artifact versus nondisplaced scaphoid fracture. Scaphoid views of the left wrist are recommended for further evaluation. 2. Unremarkable elbow joint. Electronically authenticated by: NATALIE FRANCO Date: 2021-09-14 08:58 [facility] 09-14-2021 Note PROCEDURE: XR FOREAR M LT 2 VIEWS, XR WRIST LT 2V HISTORY: Pain in left arm ; acute pain after falling COMPARISON: None. FINDINGS: BONES:Thin band of sclerosis versus summation artifact across the body of scaphoid bone which could represent a nondisplaced fracture. Unremarkable elbow joint. SOFT TISSUES:No visible soft tissue swelling. EFFUSION:None visible. OTHER: Negative. IMPRESSION: 1. Summation artifact versus nondisplaced scaphoid fracture. Scaphoid views of the left wrist are recommended for further evaluation. 2. Unremarkable elbow joint. Electronically authenticated by: NATALIE FRANOC Date: 2021-09-14 08:58 [facility] 07-07-2021 Note CONSULTATION CONSULTATION DATE: 07/07/2021 HISTORY OF PRESENT ILLNESS: This is a 70-year-old female, new patient referral to us from Dr. Quiroz. She is presenting to us for chronic lower back pain that has been ongoing for 4-5 years, along with right hip pain. She has been seeing Dr. Quiroz for chronic neuropathic pain after an episode of heavy antibiotic use. 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 She does have bilateral lower extremity paresthesia to the dorsum and ankle aspect of bilateral feet. Imaging from one year ago of her lumbar spine shows mild disc narrowing L2-L3, L3-L4 and L5- S1. The impression also revealed infrarenal aortic aneurysm 4.2 cm in dilation that is currently being monitored. 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 She does use heat which decreases her pain. She has completed physical therapy at [facility] within the past year. She has visited the chiropractor approximately six months ago. Her current medications include tramadol 50 mg q.i.d. per her PCP, gabapentin 600 mg t.i.d. and Vitamin B. Patient is unable to continue with ibuprofen. She was taking 800 mg b.i.d., secondary to new stage 3 kidney disease. She denies any vasomotor weakness at this time. Patient's REVIEW OF SYSTEMS / PAST MEDICAL HISTORY / ALLERGIES / IMAGES have been reviewed and they are noted on the chart. PHYSICAL EXAM: VITALS: Blood pressure 116/80, heart rate is 60. Temperature is 97.7. She is 5'3 , weighs 78.4 kg. GENERAL APPEARANCE: Pleasant, cooperative, no acute distress. FOCUSED EXAM - BACK: Range of motion is guarded in lateral rotation and flexion/extension. Reproduction of spinal axial pain to direct compression along the posterior elements of the facets of L2, L3 and L4, L5 that does not radiate below the knees. Kareen's point is mildly tender to the right with referral to the right groin. MUSCULOSKELETAL: Motor is intact, 4/5 bilaterally. Mild muscle atrophy to lower extremities bilaterally. Patient ambulates with a steady, non-assisted gait. NEUROLOGICAL: Patchy hypoesthesia noted along L4-L5 dermatomes bilaterally, right greater than left. +1 bilateral patella and Achilles reflexes. IMPRESSION: Lumbar degenerative disc, lumbar spondylosis, spinal axial lower back pain. PLAN: I discussed with the patient the goal of our clinic being interventionally based. I shared with her the benefits of a rhizotomy series starting with a medial branch block. At this time, the patient would like to do her own research on these procedures and literature was given. No medication additions or changes during this visit. Nutrition importance and vitamin importance were discussed with the patient. She was encouraged to start a daily multivitamin. At this point, patient will contact our office if she wishes to move forward with procedural interventions. Patient agrees with plan of care and will call as needed. [facility] Signed and Approved by: MARANDA OSEGUERA . 07/21/2021 16:05:00 [facility] 06-14-2021 Evaluation note Encounter Date Diagnosis Assessment Notes June, Abdominal aortic aneurysm (AAA) 3.0 cm to 5.0 cm in diameter in female (ICD-10 - I71.4) June, Other Abdominal aortic and iliac aneurysm We really could not evaluate the right iliac aneurysm today. She has no symptoms and physical examination is benign. We will set her up for a CT scan for her next follow-up visit so that we can see the iliac better. Given her body habitus and the findings on today's ultrasound we likely will not be able to follow that iliac well with ultrasound alone. She understands and agrees with that plan. [facility] Other 11-02-2021 Evaluation note* Encounter Date Diagnosis Assessment Notes Treatment Notes Treatment Clinical Notes Dec, Abdominal aortic aneurysm (AAA) 3.0 cm to 5.0 cm in diameter in female (ICD-10 - I71.4) Dec, Other Abdominal and iliac aneurysm Her infrarenal aorta is slightly larger. Depending on which dimension we take its between 3.5 and 4.1 cm which is not too concerning. Her right iliac aneurysm is slightly larger at 28 mm but she has fairly large common iliac arteries and the best portions examined. Because of the size of the common iliac right aneurysm we continue to follow her twice a year so she is scheduled for 6-month follow-up ultrasound. When she comes endovascular repair it will be for the iliac aneurysm I suspect. If it continues to increase in size at the next visit we may consider intervention. [facility] Other Evaluation noteNo assessment information available [facility] Work Phone: Evaluation note* Diagnosis Diarrhea, unspecified type- Primary Abdominal pain, unspecified abdominal location Nausea Nausea alone [facility]* Diagnosis Abdominal pain, unspecified abdominal location- Primary Diarrhea, unspecified type documented in this encounter [facility] note* Diagnosis Diarrhea, unspecified type Abdominal pain, unspecified abdominal location Primary hypertension Unspecified essential hypertension Gastroesophageal reflux disease without esophagitis Esophageal reflux Chronic renal impairment, stage 2 (mild) History of anesthesia complications Unspecified adverse effect of anesthesia Cerebrovascular accident (CVA), unspecified mechanism (HCC) documented in this encounter [facility] note* Diagnosis 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, intestines, and rectum [facility] Diagnosis Benign neoplasm of rectum- Primary Benign neoplasm of rectum and anal canal [facility] Diagnosis Pre-op evaluation- Primary Preoperative examination, unspecified History of anesthesia complications Unspecified adverse effect of anesthesia Primary hypertension Unspecified essential hypertension Gastroesophageal reflux disease without esophagitis Esophageal reflux Hypothyroidism, unspecified type Former smoker Personal history of tobacco use, presenting hazards to health Thoracoabdominal aortic aneurysm (TAAA), unspecified part, unspecified whether ruptured Anxiety and depression Dysthymic disorder History of difficult intubation Other specified personal history presenting hazards to health Chronic renal impairment, stage 2 (mild) Rectal mass Other symptoms involving digestive system documented in this encounter [facility] note* Diagnosis Thoracoabdominal aortic aneurysm (TAAA) without rupture, unspecified part- Primary [facility] Diagnosis Adenomatous rectal polyp- Primary Benign neoplasm of rectum and anal canal [facility]* Diagnosis Abdominal pain, unspecified abdominal location- Primary Adenomatous rectal polyp Benign neoplasm of rectum and anal canal Adverse effect of treatment, initial encounter [facility]* Diagnosis Follow-up exam- Primary Unspecified follow-up examination [facility]* Diagnosis Abdominal pain, unspecified abdominal location Diarrhea, unspecified type [facility]* Diagnosis Former smoker- Primary Personal history of tobacco use, presenting hazards to health Essential hypertension Unspecified essential hypertension 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) PVC (premature ventricular contraction) Other premature beats Other ill-defined heart diseases documented in this encounter [facility] Work Phone: Evaluation note* Diagnosis Essential hypertension- Primary Unspecified essential hypertension documented in this encounter [facility] Work Phone: History general Narrative - Reported* Type Description Date Medical History AAA Medical History CVOD Medical History CVA Medical History HTN Medical History C-diff Medical History CRI Medical History Iliac artery aneurysm Surgical History tonsillectomy and adenoidectomy Surgical History appendectomy Surgical History cholecystectomy Surgical History hysterectomy x 3 Hospitalization History childbirth Hospitalization History see above Hospitalization History [facility] Other History of Present illness Narrative* Ms. Womack is a 70-year-old female who is seen back today for follow-up mostly on a history of ventricular ectopy with chronic PVCs. She has had a previous echocardiogram that suggested normal left ventricular systolic function. She also has a history of some bradycardia and has chronic hypertension. She does not have any known history of coronary disease. She has no anginal complaints. * Physical exam: * Neck: No carotid bruits are heard * Lungs: Clear * Heart: Occasionally irregular but mostly regular with ectopics. No extra sounds or murmurs * Extremities: Trace edema * Recommendation is continued observation in regards to her PVCs. She is really not symptomatic with this. She is on carvedilol. Her Cardizem will be discontinued and she will be placed on amlodipine 5mg daily. She indicates her blood pressure was better controlled when she was on amlodipine. She is encouraged to follow a low-sodium diet. No other changes are made. She will return in 1 year for follow-up or sooner if need be. [facility] 250 DO Work Phone: History of Present illness NarrativeThe patient is being seen for a routine clinic follow-up of chronic kidney disease. This is classified as stage 3. Recently, the disease has been stable. There are no known disease complications. Thepatient is currently asymptomatic. No associated symptoms are reported.[facility] 3 DO Work Phone: History of Present illness NarrativeThe patient is being seen for a routine clinic follow-up of chronic kidney disease. This is classified as stage 3. Recently, the disease has been stable. There are no known disease complications. Thepatient is currently asymptomatic. No associated symptoms are reported.[facility] 3A [place] Work Phone: History of Present illness Narrative* Daniel Ma MD - 01/20/2023 11:20 AM EST Dianelys Womack 72 y.o. @@ [facility]/Room: [id number]/Room/bed info not found Subjective: The patient is being seen for a routine clinic follow-up of chronic kidney disease. Recently, the disease has been stable. Disease complications: No hyperkalemia, no hypocalcemia, no hyperphosphatemia, no metabolic acidosis, no coagulopathy, no uremic encephalopathy, no neuropathy and no renal osteo dystrophy. The patient is currently asymptomatic. No associated symptoms are reported. Meds: Current Outpatient Medications Medication Sig Dispense Refill ALPRAZolam XR (Xanax XR) 1 mg 24 hr tablet Take 1 tablet (1 mg) by mouth once daily. amLODIPine (Norvasc) 10 mg tablet Take 1 tablet (10 mg) by mouth once daily. aspirin 81 mg EC tablet Take 1 tablet (81 mg) by mouth once daily. b complex vitamins (Vitamins B Complex) capsule Take 1 capsule by mouth once daily. cetirizine (ZyrTEC) 10 mg tablet Take 1 tablet (10 mg) by mouth once daily as needed. docusate sodium (Colace) 100 mg tablet Take 1 tablet (100 mg) by mouth 2 times a day as needed. folic acid (Folvite) 1 mg tablet Take 1 tablet (1 mg) by mouth once daily. furosemide (Lasix) 20 mg tablet Take 1 tablet (20 mg) by mouth once daily. gabapentin (Neurontin) 600 mg tablet Take 1 tablet (600 mg) by mouth 2 times a day. one tab in the am and 2 tabs in the pm omeprazole (PriLOSEC) [address] capsule Take 1 capsule (40 mg) by mouth once daily. potassium chloride CR 20 mEq ER tablet Take 1 tablet (20 mEq) by mouth once daily. Do not crush or chew. Synthroid 200 mcg tablet Take 1 tablet (200 mcg) by mouth once daily. except 1/2 tab on Mon and Monday traMADol (Ultram) 50 mg tablet Take 1 tablet (50 mg) by mouth 2 times a day. No current facility-administered medications for this visit. ROS: The patient is awake and oriented. No dizziness or lightheadedness. No chills and no fever. No headaches. No nausea and no vomiting. No shortness of breath. No cough. No sputum. No chest pain. No chest tightness. No abdominal pain. No diarrhea and no constipation. No hematemesis or hemoptysis. No hematuria. No rectal bleeding. No melena. No epistaxis. No urinary symptoms. No flank pain. No leg edema. No leg pain. No weakness. No itching. Overall, the rest of the review of systems is also negative. 12 point review of systems otherwise negative as stated in HPI. Physical Examination: Vitals: 01/20/23 1047 BP: (!) 136/91 Pulse: 99 General: The patient is awake, oriented, and is not in any distress. Head and Neck: Normocephalic. No periorbital edema. Eyes: non-icteric Respiratory: Symmetric air entry. Symmetric chest expansion.No respiratory distress. Cardiovascular: Symmetric peripheral pulses. Skin: No maculopapular rash. Abdomen: soft, nt/nd Musculoskeletal: No peripheral edema in both left and right upper extremities. No edema in either left or right lower extremities. Neuro Exam: Speech is fluent. Moves extremities. Imaging: Blood Labs: No results found for this or any previous visit (from the past 24 hour(s)). Lab Results Component Value Date PTH 56.2 04/16/2020 PROTUR 23 08/07/2019 PROTUR NEGATIVE 08/07/2019 PHOS 2.9 04/16/2020 Lab Results Component Value Date GLUCOSE 72 (L) 04/16/2020 CALCIUM 9.8 04/16/2020 NA 143 04/16/2020 K 3.1 (L) 04/16/2020 CO2 29 04/16/2020 CL 102 04/16/2020 BUN 20 04/16/2020 CREATININE 0.98 04/16/2020 Assessment and Plan: 1. Hypertension. Blood pressure is under control. Continue the current med. She will be seen in my office in about 6 months for follow-up. 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 [place] [address] Referral ID Status Reason Start Date Expiration Date Visits Requested Visits Authorized [id number] Pending Review Auto-Generat ed Referral 10/28/2021 10/28/2022 1 1 * Outpatient Procedure (Routine) - Pending Review Specialty Diagnoses / Procedures Referred By Guero butt Referred To Contact [facility] Diagnoses Abdominal pain, unspecified abdominal location Diarrhea, unspecified type Procedures EGD DIAGNOSTIC ESOPHAGOGASTRODUODENOSC OPY TRANSORAL DIAGNOSTIC Taz Tejeda MD [address] [place] [place] [id number] [address] [address] Referral ID Status Reason Start Date Expiration Date Visits Requested Visits Authorized [id number] Pending Review Auto-Generat ed Referral 10/28/2021 10/28/2022 1 1 [facility] for referral (narrative)* Outpatient Procedure (Routine) - Pending Review Specialty Diagnoses / Procedures Referred By Contac t Referred To [facility] Diagnoses Abdominal pain, unspecified abdominal location Procedures EGD DIAGNOSTIC ESOPHAGOGASTRODUODENOSC OPY TRANSORAL DIAGNOSTIC Taz Tejeda MD [address] [place], [place] [id number] [address] [address] Referral ID Status Reason Start Date Expiration Date Visits Requested Visits Authorized [id number] Pending Review Auto-Generat ed Referral 05/04/2022 11/04/2022 1 1 * Outpatient Procedure (Routine) - Pending Review Specialty Diagnoses / Procedures Referred By Contac t Referred To [facility] Diagnoses Diarrhea, unspecified type Procedures COLONOSCOPY DIAGNOSTIC COLONOSCOPY FLX DX W/COLLJ SPEC WHEN PFRMD Taz Tejeda MD [address] [place] [address] [address] [address] Referral ID Status Reason Start Date Expiration Date Visits Requested Visits Authorized [id number] Pending Review Auto-Generat ed Referral 05/04/2022 11/04/2022 1 1 [facility] for referral (narrative)* Outpatient Procedure (Routine) - Closed Specialty Diagnoses / Procedures Referred By Contac t Referred To [facility] Diagnoses Abdominal pain, unspecified abdominal location Procedures EGD DIAGNOSTIC ESOPHAGOGASTRODUODENOSC OPY TRANSORAL DIAGNOSTIC Taz Tejeda MD [address] [place] [address] [address] Referral ID Status Reason Start Date Expiration Date V isits Requested Visits Authorized [id number] Closed Auto-Generate d Referral 05/04/2022 11/04/2022 1 1 * Outpatient Procedure (Routine) - Closed Specialty Diagnoses / Procedures Referred By Contac t Referred To Contact [facility] Diagnoses Diarrhea, unspecified type Procedures COLONOSCOPY DIAGNOSTIC COLONOSCOPY FLX DX W/[place] [address] [place], [place] [id number] [address] [address] Referral ID Status Reason Start Date Expiration Date V isits Requested Visits Authorized [id number] Closed Auto-Generate d Referral 05/04/2022 11/04/2022 1 1 [facility] for referral (narrative)* Outpatient Procedure (Routine) - Pending Review Specialty Diagnoses / Procedures Referred By Guero t Referred To [facility] Diagnoses Adenomatous rectal polyp Procedures COLONOSCOPY DIAGNOSTIC COLONOSCOPY FLX DX W/COLLJ SPEC WHEN Taz Heard MD [address] [place] [address] [address] Referral ID Status Reason Start Date Expiration Date Visits Requested Visits Authorized [id number] Pending Review Auto-Generat ed Referral 04/10/2022 04/10/2023 1 1 [facility] for referral (narrative)* Outpatient Procedure (Routine) - Closed Specialty Diagnoses / Procedures Referred By Contac t Referred To Contact [facility] Diagnoses Abdominal pain, unspecified abdominal location Diarrhea, unspecified type Procedures COLONOSCOPY DIAGNOSTIC COLONOSCOPY FLX DX W/COLLJ SPEC WHEN PFRMD Taz Tejeda MD [address] [place] [address] [facility] [address] [place] [address] Referral ID Status Reason Start Date Expiration Date V isits Requested Visits Authorized [id number] Closed Auto-Generate d Referral 10/28/2021 10/28/2022 1 1 [facility] for referral (narrative)* Consultation (Routine) - Authorized Specialty Diagnoses / Procedures Referred By Contac t Referred To Contact Cardiology Diagnoses Essential hypertension 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) Procedures Follow Up In Cardiology Elinor Raman MD [address] [facility] [address] [place] [address] Referral ID Status Reason Start Date Expiration Date V isits Requested Visits Authorized [id number] Authorized 11/21/2022 05/20/2023 1 1 * Cardiac Stress Testing (Routine) - Pending Review Specialty Diagnoses / Procedures Referred By Contac t Referred To Contact Radiology Diagnoses Essential hypertension 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) Other ill-defined heart diseases Procedures Nuclear Stress Test CHG MYOCARDIAL SPECT MULTIPLE STUDIES CHG MYOCARDIAL SPECT SINGLE STUDY AT REST OR STRESS Elinor Raman MD [address] [facility] [address] [place] [address] Referral ID Status Reason Start Date Expiration Date V isits Requested Visits Authorized [id number] Pending Review 11/21/2022 05/20/2023 5 5 * CV Imaging (Routine) - Pending Review Specialty Diagnoses / Procedures Referred By Contac t Referred To Contact Cardiology Diagnoses Essential hypertension 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) PVC (premature ventricular contraction) Procedures Transthoracic Echo (TTE) Complete IA ECHO TRANSTHORC R-T 2D W/WO M-MODE REC F-UP/LMTD IA DOP ECHOCARD COLOR FLOW VELOCITY MAPPING IA DOP ECHOCARD PULSE WAVE W/SPECTRAL F-UP/LMTD STD Elinor Raman MD [address] [facility] [address] [place] [address] Referral ID Status Reason Start Date Expiration Date Visits Requested Visits Authorized [id number] Pending Review Perform Procedure 11/21/2022 05/20/2023 1 1 [facility] Work Phone: Reason for visit Narrative* Outpatient Procedure (Routine) - Closed Specialty Diagnoses / Procedures Referred By Contac t Referred To Contact [facility] Diagnoses Abdominal pain, unspecified abdominal location Diarrhea, unspecified type Procedures COLONOSCOPY DIAGNOSTIC COLONOSCOPY FLX DX W/COLLJ SPEC WHEN PFRMD Taz Tejeda MD [address] [place] [address] [facility] [address] [place] [address] Referral ID Status Reason Start Date Expiration Date V isits Requested Visits Authorized [id number] Closed Auto-Generate d Referral 10/28/2021 10/28/[address] [facility] Summary Purpose Family History No Family History Records FoundUnknown Family Member Name Dates Details Family history of cardiomega ly: Father(V17.49, Z82.49) Status:Active Cerebellar disease: Mother Status:Active Unknown Family Member Name Dates Details Cerebellar disease: Mother Status:Active Family history of cardiomega ly: Father(V17.49, Z82.49) Status:Active Unknown Family Member Name Dates Details Cerebellar disease: Mother Status:Active Family history of cardiomega ly: Father(V17.49, Z82.49) Status:Active Unknown Family Member Name Dates Details Family history of cardiomega ly: Father(V17.49, Z82.49) Status:Active Cerebellar disease: Mother Status:Active Unknown Family Member Name Dates Details Family history of cardiomega ly: Father(V17.49, Z82.49) Status:Active Cerebellar disease: Mother Status:Active Unknown Family Member Name Dates Details Cerebellar disease: Mother Status:Active Family history of cardiomega ly: Father(V17.49, Z82.49) Status:Active Unknown Family Member Name Dates Details Cerebellar disease: Mother Status:Active Family history of cardiomega ly: Father(V17.49, Z82.49) Status:Active Unknown Family Member Name Dates Details Cerebellar disease: Mother Status:Active Family history of cardiomega ly: Father(V17.49, Z82.49) Status:Active Unknown Family Member Name Dates Details Cerebellar disease: Mother Status:Active Family history of cardiomega ly: Father(V17.49, Z82.49) Status:Active Advance Directives No Advanced Directives Records Found Advance Directive Response Recorded Date/ Time Advance Directives No May 26, 021 1:59pm Chief Complaint DIANELYS WOMACK is being seen for an annual follow-up of.* PT in office for their 6 month f.u * Pt's routine f.u * PT in office for their 6 month f.u * Pt's routine f.u Chief Complaint and Reason for Visit Chief Complaint i71.4 Chief Complaint i71.4 N18.30 I10 Chief Complaint abd pain Reason for Referral Specialty Diagnoses / Procedures Referred By Guero butt Referred To Contact CT IMAGING Diagnoses Adverse effect of treatment, initial encounter Abdominal pain, unspecified abdominal location Procedures CT ENTEROGRAPHY W IVCON CT ABD & PELVIS W/CONTRAST Debbi Hammond APRN.ALEX [address] [place] [address] Ct Imaging Referral ID Status Reason Start Date Expiration Date Visits Requested Visits Authorized [id number] Pending Review Auto-Generat ed Referral 04/19/2022 05/19/2023 1 1 Specialty Diagnoses / Procedures Referred By Guero butt Referred To Contact Vascular Surgery Diagnoses Thoracoabdominal aortic aneurysm (TAAA) without rupture, unspecified part Procedures CONSULT TO VASCULAR SURGERY OFFICE/OUTPATIENT [facility] 60-74 MINUTES Milagros Vera MD [address] [place] [address] Referral ID Status Reason Start Date Expiration Date Visits Requested Visits Authorized [phone] Pending Review PCP Requested Referral 03/08/2022 03/08/2023 1 1 Additional Source Comments INFORMATION SOURCE (unrecogn ized section and content) DATE CREATED AUTHOR 08/15/2018 [facility] DATE CREATED AUTHOR AUTHOR'S ORGANIZ ATION 11/18/2021 [facility] DATE CREATED AUTHOR AUTHOR'S ORGANIZ ATION 03/25/2022 [facility] DATE CREATED AUTHOR AUTHOR'S ORGANIZ ATION 09/21/2022 [facility] DATE CREATED AUTHOR AUTHOR'S ORGANIZ ATION 09/21/2022 [facility] DATE CREATED AUTHOR AUTHOR'S ORGANIZ ATION 09/24/2022 [facility] DATE CREATED AUTHOR AUTHOR'S ORGANIZ ATION 10/29/2022 [facility] DATE CREATED AUTHOR AUTHOR'S ORGANIZ ATION 01/23/2023 [facility] DATE CREATED AUTHOR AUTHOR'S ORGANIZ ATION 02/25/2023 [facility] EPIC Care Teams (unrecognized sec tion and content) Team Status: Inactive Member Role Status Dates Monika Lehman MD Primary Care Provider Active Nick Acosta MD Attending Provider Active Team Status: Active Member Role Status Dates Monika Lehman MD Primary Care Provider Active Team Status: Inactive Member Role Status Dates Monika Lehman MD Primary Care Provider Active Daniel Ma MD Attending Provider Active Senior Loss Control Specialist Relationship Specialty Start Date End Date Monika Lehmanfabio [address] [facility] [address] [place] [address] PCP - General Family Practice 03/12/15 Aman Quiroz MD [address] [place] [id number] Referring Neurology 11/20/19 Senior Loss Control Specialist Relationship Specialty Start Date End Date Monika Lehman Marin [address] [facility] [address] [place] [address] PCP - General Family Medicine 03/12/15 Aman Quiroz MD [address] [place] [address] Referring Neurology 11/20/19 Team Status: Inactive Member Role Status Dates Monika Lehman MD Primary Care Provider Active Chucho Saldaña MD Emergency Provider Active Senior Loss Control Specialist Relationship Specialty Start Date End Date Monika Lehman [address] [place] [address] PCP - General Family Medicine 03/12/15 Aman Quiroz MD [address] [place] [address] Referring Neurology 11/20/19 Senior Loss Control Specialist Relationship Specialty Start Date End Date Monika Lehman [address] [facility] [address] [place] [address] PCP - General Family Medicine 03/12/15 Aman Quiroz MD [address] [place] [address] Referring Neurology 11/20/19 Senior Loss Control Specialist Relationship Specialty Start Date End Date Monika Lehman [address] [facility] [address] [place] [address] PCP - General Family Medicine 03/12/15 Aman Quiroz MD [address] [place] [address] Referring Neurology 11/20/19 Senior Loss Control Specialist Relationship Specialty Start Date End Date Monika Lehman [address] [facility] [address] [place] [address] PCP - General Family Medicine 03/12/15 Aman Quiroz MD [address] [place] [address] Referring Neurology 11/20/19 Senior Loss Control Specialist Relationship Specialty Start Date End Date Monika Lehman [address] [place] [address] PCP - General Family Medicine 03/12/15 Aman Quiroz MD [address] [place] [address] Referring Neurology 11/20/19 Senior Loss Control Specialist Relationship Specialty Start Date End Date Monika Lehman [address] [place] [address] PCP - General Family Medicine 03/12/15 Aman Quiroz MD [address] [place] [address] Referring Neurology 11/20/19 Senior Loss Control Specialist Relationship Specialty Start Date End Date Monika Lehman [address] [place] [place] [address] PCP - General Family Medicine 03/12/15 Aman Quiroz MD [address] [place] [address] Referring Neurology 11/20/19 Senior Loss Control Specialist Relationship Specialty Start Date End Date Monika Lehman [address] [place] [place] [address] PCP - General Family Medicine 03/12/15 Aman Quiroz MD [address] [place] [address] Referring Neurology 11/20/19 Senior Loss Control Specialist Relationship Specialty Start Date End Date Monika Lehmany [address] [place] [place] [address] PCP - General Family Medicine 03/12/15 Aman Quiroz MD [address] [place] [address] Referring Neurology 11/20/19 Senior Loss Control Specialist Relationship Specialty Start Date End Date Monika Lehman [address] [place] [place] [address] PCP - General Family Medicine 03/12/15 Aman Quiroz MD [address] [place] [address] Referring Neurology 11/20/19 Senior Loss Control Specialist Relationship Specialty Start Date End Date Monika Lehmanfabio [address] [place] [place] [address] PCP - General Family Medicine 03/12/15 Aman Quiroz MD [address] [place] [address] Referring Neurology 11/20/19 Senior Loss Control Specialist Relationship Specialty Start Date End Date Monika Lehmanfabio [address] [facility] [address] [place] [address] PCP - General Family Medicine 03/12/15 Aman Quiroz MD [address] [place] [address] Referring Neurology 11/20/19 Senior Loss Control Specialist Relationship Specialty Start Date End Date Monika Lehmanfabio [address] [facility] [address] [place] [address] PCP - General Family Medicine 03/12/15 Aman Quiroz MD [address] [place] [address] Referring Neurology 11/20/19 Senior Loss Control Specialist Relationship Specialty Start Date End Date Monika Lehmanfabio [address] [place] [place] [address] PCP - General Family Medicine 03/12/15 Aman Quiroz MD [address] [place] [address] Referring Neurology 11/20/19 Senior Loss Control Specialist Relationship Specialty Start Date End Date Monika Lehman [address] [facility] [address] [place] [address] PCP - General Family Medicine 03/12/15 Aman Quiroz MD [address] [place] [address] Referring Neurology 11/20/19 Senior Loss Control Specialist Relationship Specialty Start Date End Date Monika Lehman MD [address] [facility] [address] [place] [address] PCP - General Family Medicine 03/12/15 Aman Quiroz MD [address] [place] [address] Referring Neurology 11/20/19 Senior Loss Control Specialist Relationship Specialty Start Date End Date Monika Lehman MD [address] [facility] [address] [place] [address] PCP - General Family Medicine 03/12/15 Aman Quiroz MD [address] [place] [address] Referring Neurology 11/20/19 Senior Loss Control Specialist Relationship Specialty Start Date End Date Monika Lehman MD [address] [facility] [address] [place] [address] PCP - General 08/14/18 Senior Loss Control Specialist Relationship Specialty Start Date End Date Monika Lehman MD [address] [facility] [address] [place] [address] PCP - General 08/14/18 Goals (unrecognized section and content) Goals may be documented in a n alternate sectionGoals may be documented in an alternate sectionNo InformationNo InformationGoals may be documented in an alternate section REASON FOR VISIT (unrecogniz ed section and content) Reason Comments Abdominal Pain Specialty Diagnoses / Procedures Referred By Contac t Referred To Contact Gastroenterology Diagnoses Abdominal pain, unspecified abdominal location Procedures CONSULT TO GASTROENTEROLOGY OFFICE/OUTPATIENT [facility] 60-74 MINUTES Erinn Lawson MD [address] [facility] [address] [place] [address] [place] [address] Referral ID Status Reason Start Date Expiration Date Visits Requested Visits Authorized [id number] Pending Review PCP Requested Referral 10/28/2021 10/28/2022 1 1 Reason Comments Orders Egd/Colonoscopy unde r MAC Reason Comments Appointment Confirmation Pre-procedure i nstructions Specialty Diagnoses / Procedures Referred By Contac t Referred To Contact ENDOSCOPY Diagnoses dx Procedures dx [facility] Endoscopy [address] [address] Referral ID Status Reason Start Date Expiration Date Visits Re quested Visits Authorized [id number] 1 1 Reason Comments Results Reason Comments Colon polyp Reason Onset Date Comments Refill Request 02/24/2022 Reason Comments Pre-Op Visit 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 Source Comments (unrecognize d section and content) In the event this informatio n is protected by the Federal Confidentiality of Alcohol and Drug Abuse Patient Records regulations: The Federal rules restrict any use of the information to criminally investigate or prosecute any alcohol or drug abuse patient.[facility] the event this information is protected by the Federal Confidentiality of Alcohol and Drug Abuse Patient Records regulations: The Federal rules restrict any use of the information to criminally investigate or prosecute any alcohol or drug abuse patient.[facility] Hospital[facility] the event this information is protected by the Federal Confidentiality of Alcohol and Drug Abuse Patient Records regulations: The Federal rules restrict any use of the information to criminally investigate or prosecute any alcohol or drug abuse patient.[facility] HospitalIn the event this information is protected by the Federal Confidentiality of Alcohol and Drug Abuse Patient Records regulations: The Federal rules restrict any use of the information to criminally investigate or prosecute any alcohol or drug abuse patient.[facility] Hospital[facility] the event this information is protected by the Federal Confidentiality of Alcohol and Drug Abuse Patient Records regulations: The Federal rules restrict any use of the information to criminally investigate or prosecute any alcohol or drug abuse patient.[facility] HospitalIn the event this information is protected by the Federal Confidentiality of Alcohol and Drug Abuse Patient Records regulations: The Federal rules restrict any use of the information to criminally investigate or prosecute any alcohol or drug abuse patient.[facility] Hospital[facility] the event this information is protected by the Federal Confidentiality of Alcohol and Drug Abuse Patient Records regulations: The Federal rules restrict any use of the information to criminally investigate or prosecute any alcohol or drug abuse patient.[facility] HospitalIn the event this information is protected by the Federal Confidentiality of Alcohol and Drug Abuse Patient Records regulations: The Federal rules restrict any use of the information to criminally investigate or prosecute any alcohol or drug abuse patient.[facility] HospitalIn the event this information is protected by the Federal Confidentiality of Alcohol and Drug Abuse Patient Records regulations: The Federal rules restrict any use of the information to criminally investigate or prosecute any alcohol or drug abuse patient.[facility] HospitalIn the event this information is protected by the Federal Confidentiality of Alcohol and Drug Abuse Patient Records regulations: The Federal rules restrict any use of the information to criminally investigate or prosecute any alcohol or drug abuse patient.[facility] HospitalIn the event this information is protected by the Federal Confidentiality of Alcohol and Drug Abuse Patient Records regulations: The Federal rules restrict any use of the information to criminally investigate or prosecute any alcohol or drug abuse patient.[facility] HospitalIn the event this information is protected by the Federal Confidentiality of Alcohol and Drug Abuse Patient Records regulations: The Federal rules restrict any use of the information to criminally investigate or prosecute any alcohol or drug abuse patient.[facility] HospitalIn the event this information is protected by the Federal Confidentiality of Alcohol and Drug Abuse Patient Records regulations: The Federal rules restrict any use of the information to criminally investigate or prosecute any alcohol or drug abuse patient.[facility] HospitalIn the event this information is protected by the Federal Confidentiality of Alcohol and Drug Abuse Patient Records regulations: The Federal rules restrict any use of the information to criminally investigate or prosecute any alcohol or drug abuse patient.[facility] HospitalIn the event this information is protected by the Federal Confidentiality of Alcohol and Drug Abuse Patient Records regulations: The Federal rules restrict any use of the information to criminally investigate or prosecute any alcohol or drug abuse patient.[facility] HospitalIn the event this information is protected by the Federal Confidentiality of Alcohol and Drug Abuse Patient Records regulations: The Federal rules restrict any use of the information to criminally investigate or prosecute any alcohol or drug abuse patient.[facility] HospitalIn the event this information is protected by the Federal Confidentiality of Alcohol and Drug Abuse Patient Records regulations: The Federal rules restrict any use of the information to criminally investigate or prosecute any alcohol or drug abuse patient.[facility] HospitalIn the event this information is protected by the Federal Confidentiality of Alcohol and Drug Abuse Patient Records regulations: The Federal rules restrict any use of the information to criminally investigate or prosecute any alcohol or drug abuse patient.[facility] HospitalIn the event this information is protected by the Federal Confidentiality of Alcohol and Drug Abuse Patient Records regulations: The Federal rules restrict any use of the information to criminally investigate or prosecute any alcohol or drug abuse patient.[facility] HospitalIn the event this information is protected by the Federal Confidentiality of Alcohol and Drug Abuse Patient Records regulations: The Federal rules restrict any use of the information to criminally investigate or prosecute any alcohol or drug abuse patient.[facility] HospitalIn the event this information is protected by the Federal Confidentiality of Alcohol and Drug Abuse Patient Records regulations: The Federal rules restrict any use of the information to criminally investigate or prosecute any alcohol or drug abuse patient.[facility] HospitalIn the event this information is protected by the Federal Confidentiality of Alcohol and Drug Abuse Patient Records regulations: The Federal rules restrict any use of the information to criminally investigate or prosecute any alcohol or drug abuse patient.[facility] HospitalIn the event this information is protected by the Federal Confidentiality of Alcohol and Drug Abuse Patient Records regulations: The Federal rules restrict any use of the information to criminally investigate or prosecute any alcohol or drug abuse patient.[facility] HospitalIn the event this information is protected by the Federal Confidentiality of Alcohol and Drug Abuse Patient Records regulations: The Federal rules restrict any use of the information to criminally investigate or prosecute any alcohol or drug abuse patient.[facility] HospitalIn the event this information is protected by the Federal Confidentiality of Alcohol and Drug Abuse Patient Records regulations: The Federal rules restrict any use of the information to criminally investigate or prosecute any alcohol or drug abuse patient.[facility] HospitalIn the event this information is protected by the Federal Confidentiality of Alcohol and Drug Abuse Patient Records regulations: The Federal rules restrict any use of the information to criminally investigate or prosecute any alcohol or drug abuse patient.[facility] HospitalIn the event this information is protected by the Federal Confidentiality of Alcohol and Drug Abuse Patient Records regulations: The Federal rules restrict any use of the information to criminally investigate or prosecute any alcohol or drug abuse patient.[facility] FOR RECORDS PERTAINING TO PATIENTS WHO ARE OR HAVE BEEN ENROLLED IN A CHEMICAL DEPENDENCY/SUBSTANCEABUSE PROGRAM, SOME INFORMATION MAY BE OMITTED. This clinical summary was aggregated from multiple sources. Caution should be exercised in using it in the provision of clinical care. This summary normalizes information from multiple sources, and as a consequence, information in this document may materially change the coding, format and clinical context of patient data. In addition, data may be omitted in some cases. CLINICAL DECISIONS SHOULD BE BASED ON THE PRIMARY CLINICAL RECORDS. [facility] provides no warranty or guarantee of the accuracy or completeness of information in this document.
--- NOTE | 2023-03-15 08:51 | CT_ITS ---
[address] [address] Patient Name: DIANELYS WOMACK MRN: [id number] date: 1950 Sex: F Assigned Patient Location: LAB Current Patient Location: LAB Accession/Order Number: [id number] Exam Date: 03/15/2023 09:15 Report Date: 03/15/2023 11:44 At the request of: MONIKA LEHMAN Procedure: CT angio abdomen pelvis CT angio abdomen pelvis, 03/15/2023 9:15 AM EST INDICATION: Abdominal Aortic Aneurysm I71.40 COMPARISON: CT angiography of the abdomen and pelvis 03/23/2022 TECHNIQUE: Axial images of the abdomen and pelvis were obtained with administration of IV contrast. Multiplanar reformatted images were generated and reviewed as needed. Dose reduction techniques were achieved by using automated exposure control and/or adjustment of mA and/or kV according to patient size and/or use of iterative reconstruction technique. FINDINGS: No consolidation or effusion. Simple hepatic cyst right hepatic lobe. Cholecystectomy. Pancreas, spleen and adrenals unremarkable. Symmetric nephrograms without evidence of obstruction. Subcentimeter hypodensities lower pole the left kidney, too small to characterize. No urolithiasis. No urinary bladder wall thickening or perivesicular fat stranding. Hysterectomy. No adnexal mass. Calcified atherosclerotic change within a tortuous ectatic aorta. Stable fusiform infrarenal abdominal aortic aneurysm 3.9 x 3.8 cm. No dissection. The celiac axis, SMA, renal arteries, RADHA, iliac and proximal femoral arteries are patent. Fusiform dilatation right common iliac artery 2.8 cm in diameter, previously 2.7 cm. No dissection. Small sliding hiatal hernia. No bowel obstruction or acute focal inflammation. No pneumatosis, pneumoperitoneum or ascites. No mesenteric or retroperitoneal lymphadenopathy. Hemangiomas T10, L1 and L3 vertebral bodies. Spondylosis. No acute fracture. CT/CT angio abdomen pelvis IMPRESSION: 1. Stable 3.9 x 3.8 cm infrarenal abdominal aortic aneurysm. No dissection. 2. 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 Electronically authenticated by: FRANCISCO JAVIER MUÑIZ Date: 03/15/2023 11:44
[2023-03-15 09:06] LABS: Estimated GFR (African America 57 (>=60); Estimated GFR (Non-African Ame 47 (>=60)
== END 2023-03-15 08:47 | disposition home or self-care (01) ==
LOC: LAB 08:46
PROVIDERS: PCP Family Medicine; Visit Provider Family Medicine
DX: I71.40 Abdominal aortic aneurysm, without rupture, unspecified (principal); I72.3 Aneurysm of iliac artery
CPT/HCPCS: 36415; 74174; 82565; Q9967

== ENCOUNTER 2023-03-25 11:34 | Outpatient (OUT) | payer MEDICARE, BC, SELFPAY ==
--- OUTSIDE RECORDS SUMMARY | 2023-03-25 11:39 | XMS_ITS | CCD ---
Author Name Unknown Address [address] [place] [address] Organization [facility] Care Team Providers Care Foreign Diplomat Name Role Phone Monika Lehman Unavailable Unavailable Unavailable MD Monika Lehman Primary Care Provider [phone] MD Nick Acosta Attending Provider MD Daniel Ma Attending Provider [phone] Nick Acosta Unavailable Monika Lehman Primary Care Provider Aman Quiroz MD Unavailable Monika Lehman Primary Care Provider Aman Quiroz MD Unavailable MD Monika Lehman Primary Care Provider [phone] MD Chucho Saldaña Emergency Provider Monika Lehman Primary Care Unavailable Chucho Saldaña Attending Unavailable Chucho Saldaña Admitting Unavailable Monika Lehman Primary Care Unavailable Daniel Ma Attending Unavailable Daniel Ma Admitting Unavailable Nick Acosta Attending Unavailable Nick Acosta Admitting Unavailable Monika Lehman Primary Care Unavailable Monika Lehman Primary Care Provider Aman Quiroz MD Unavailable DR MONIKA LEHMAN Primary Care Unavailable FOREST, DR TESS Valente Attending Unavailable FOREST, DR TESS Valente Admitting Unavailable MARANDA OSEGUERA Unavailable FALLON, DR FRANK Primary Care Unavailable HEMMELISSA, DR RONDA Washington Attending Unavailable HEMMER, DR [...] Saldaña, Ms. Seema Romero Referring Unavai lable Rocky[facility] Unavaila ble Charmaine, Daniel Attending Unavailable Charmaine, Daniel Referring Unavailable Fallon, [facility] Unavaila ble Charmaine, Daniel Attending Unavailable Charmaine, Daniel Referring Unavailable Fallon, [facility] Unavaila ble Piotr, Ms. Seema Romero Attending Wanda Saldaña, Ms. Seema Romero Referring Unavai lable Rocky, [facility] Unavaila ble Rocky , [facility] Provider [facility] Unavailable GORGUN, I FEI Attending Unavailable [facility] Unavailable TAZ TEJDEA Referring Unavailable NIKO NIETO Attending Unavailab le [facility] Unavailable [facility] Care Unavailable F[facility]ON [facility] Referring Unavailable [facility] Care Unavailable GORGUN, I FEI Admitting Unavailable GORGUN, I FEI Attending Unavailable TAZ TEJEDA Referring Unavailable [facility] Unavailable TAZ TEJEDA Referring Unavailable PRECIOUS ROGERS Attending Unavailable [facility] Care Unavailable MELODY ROSADO Attending Unavailable [facility] Care Unavailable TAZ TEJEDA Referring Unavailable Debbi Casanova Attending [facility] Unavailable MELODY ROSADO Attending Unavailable FALLON, RUGEN MABALAY Primary Care Unavailable GORGUN, I FEI Referring Unavailable GORGUN, I FEI Referring Unavailable FALLON, RUGEN TOMASAY Primary Care Unavailable GORGUN, I FEI Referring Unavailable FALLON, RUGEN TOMASAY Primary Care Unavailable GORGUN, I FEI Referring Unavailable FALLON, RUGEN JASONALAY Primary Care Unavailable Monika Lehman MD Primary Care Provider [phone] Monika Lehman MD Primary Care Provider [phone] ELINOR RAMAN Attending Unavailable FALLON, JUANEN MARIN Primary Care Unavailable DANIEL MA Attending Unavailable FALLON, JUANEN TOMASAY Primary Care Unavailable ALEAH MEYER Attending Unavailable AMAN QUIROZ Referring Unavailable ALEAH MEYER Attending Unavailable AMAN QUIROZ Referring Unavailable ALEAH MEYER Attending Unavailable AMAN QUIROZ Referring Unavailable AMAN QUIROZ Attending Unavailable MONIKA LEHMAN Attending Unavailable FALLONMONIKA Mitchell M Attending Unavailable ALEAH MEYER Attending Unavailable AMAN QUIROZ Referring Unavailable Allergies Allergy Classification Reported Allergen(s) Allergy Type Date of Onset Reaction(s) Facility (20 sources) Ciprofloxacin; Translations: [ciprofloxacin] Drug Allergy 1 Unknown, Other [facility] (20 sources) metroNIDAZOLE; Translations: [Flagyl] Drug Allergy 7 Unknown, Other [facility] (11 sources) Penicillins; Translations: [Penicillins] Allergy to drug (finding) 6 Other [facility] [place] Rep[facility] (4 sources) metroNIDAZOLE; Translations: [metronidazole] Drug Allergy 7 Numbness [facility] (20 sources) Vancomycin; Translations: [vancomycin] Drug Allergy 2 [facility] (1 source) Ciprofloxacin Drug Allergy 2 [facility] Repository (20 sources) levoFLOXacin; Translations: [LEVOFLOXACIN] Drug Allergy 6 Unknown [facility] (20 sources) Penicillins Drug Allergy 6 Unknown, Other: See Comments, Other [facility] (20 sources) Seasonal allergy; Translations: [SEASONAL ALLERGIES] Allergy to substance 1 Unknown [facility] (20 sources) Soy protein; Translations: [soy] Drug Allergy 6 Unknown [facility] (1 source) Amoxicillin / Clavulanate Drug Allergy 6 [facility] Repository (1 source) Ciprofloxacin Drug Allergy 7 [facility] Repository (1 source) levoFLOXacin Drug Allergy 6 [facility] Repository (1 source) metroNIDAZOLE Drug Allergy 7 [facility] Repository (1 source) Misc-Food; Translations: [Misc-Food] Food allergy (disorder) 6 [facility] Repository Medications Current Medications Medication Drug [...] by mouth once daily. polyethylene glycol 3350 68697 mg powder for oral solution (4 sources) [...] Nasally Twice a day Not-Taking bifidobacterium animalis [id number] unt / lactobacillus acidophilus 39124272775 unt oral capsule (3 sources) Probiotic CAPS [...] directed Orally Active take 1 capsule by [facility] every twenty-four hours Gabapentin 400 MG 1 [...] 02-24-2022 Episodic Other aftercare (1 source) Other pen[facility]iary (current) drug therapy; Translations: [OTH HALF-WAY CURRENT DRUG THERAPY] Onset: 10-21-2021 Episodic Other [...] EVALon 023 ANES POSTPROC EVAL HNO ID: [id number] Author: Precious Rogers MD Service: ? Author [...] with this procedure. Documented by Iliana Montoya APRN.JOURNEYMAN PRESS OPERATOR 10/25/2022 11:15 AM EDT SIGNATURE: Precious Benito MD PATIENT NAME: Dianelys Womack DATE: October 25, 2022 TIME: 7:22 PM CSN: [id number] Normal [facility] ANES PRE-OPon 10-25-2022 ANES PRE-OP HNO ID: [id number] Author: Precious Rogers MD Service: ? Author Type: Anesthesiologist Type: Anesthesia Preprocedure Evaluation Filed: 10/25/2022 10:40 AM Note Text: ANESTHESIOLOGY DAY OF SURGERY NOTE : 1950 Procedure Information Anesthesia Start Date/Time: 10/25/22 1030 Scheduled providers: Kenton Kapadia MD; Iliana Montoya APRN.JOURNEYMAN PRESS OPERATOR; Precious Rogers MD Procedure: COLONOSCOPY DIAGNOSTIC Location: [...] and consent discussed: yes. Patient / Responsible Constitution Party agrees to proceed: yes Patient / Surrogate [...] October 25, 2022 TIME: 10:37 AM CSN: [id number] Normal [facility] COLONOSCOPY DIAGNOSTICon [facility] Colonoscopyon 10-25-2022 Colonoscopy Q3 Patient Name: [...] for surveillance. Procedure Code(s): --- Professional --- 56542, Colonoscopy, flexible; with removal of tumor(s), polyp(s), or other lesion(s) by snare technique Diagnosis Code(s): --- Professional --- Z12.11, Encounter for screening for malignant neoplasm of colon Z86.010, Personal history of colonic polyps Z98.890, Other specified postprocedural states D12.2, Benign neoplasm of ascending colon CPT copyright 2020 [employer]. All rights reserved. Attending Participation: I personally performed the entire procedure. Scope In: 10:37:51 AM Scope Out: 11:08:30 AM MD Kenton Rowe MD 10/25/2022 11:34:00 AM This report has been signed electronically by Kenton Kapadia MD Number of Addenda: 0 Note Initiated On: 10/25/2022 10:08 AM Normal [facility] NURSING PROGon 10-25-2022 NURSING PROG HNO ID: [id number] Author: Stephanie Benavides, DELMAR Service: Nursing Author [...] Electronically Signed By: Stephanie Benavides RN Normal [facility] NURSING PROG HNO ID: [id number] Author: Corina Alcaraz LPN Service: Gastroenterology Author [...] Corina Alcaraz LPN In Department: GASTROENTEROLOGY Normal [facility] SURGICAL PATHOLOGYon 023 CASE REPORT Normal [facility] Comment on above: Order Comment: Specmilagros montoya Type: TISSUE SPECIMENOrdering Facility: [facility] Address: [address] [place] [address] Result Comment: Surg ical Pathology Report Case: [id number] Authorizing Provider: Kenton Kapadia MD Collected: 10/25/2022 11:06 AM Ordering Location: Gastroenterology Received: 10/25/2022 06:28 PM Pathologist: Vishnu Carlton MD Specimen: ASCENDING COLON POLYP Performed By: #### S ####[facility] LABORATORYCLIA [id number] [address] STATES OF [facility] LABCLIA [id number] [address] FINAL DIAGNOSIS Normal [facility] Comment on above: Order Comment: Magnus montoya Type: TISSUE SPECIMENOrdering Facility: [facility] Address: [address] [place], [place] [address] Result Comment: A. A scending colon, polypectomy: - Fragments of tubular adenoma. Performed By: #### S ####[facility]ORATORYCLIA [id number] [address] LABCLIA [id number] [address] OF [facility] FINAL PERFORMING LAB Normal [facility] Comment on above: Order Comment: Speci men Type: TISSUE SPECIMENOrdering Facility: [facility] Address: [address] [address] Result Comment: Diag nostic interpretation performed at [facility], [address] [place] [address] CLIA# [id number] Consultant: Gloria Sanz M.D. Performed By: #### S ####[facility]ITAL[facility] [id number] [address] LABCLIA [id number] [address] GROSS DESCRIPTION Normal [facility] Comment on above: Order Comment: Speci men Type: TISSUE SPECIMENOrdering Facility: [facility] Address: [address] [place] [address] Result Comment: A. A SCENDING COLON POLYP Received in formalin are multiple pieces of pascual, soft tissue aggregating to 1.5 x 0.2 x 0.2 cm. Totally submitted in one cassette. Gross examination performed at [facility], [address] October 26, 2022 12:06 AM Performed By: #### S ####[facility]ITAL[facility] [id number] [address] LABCLIA [id number] [address] OF [place] CNPKaelyn 10-18-2022 CNPN Telephone ([facility]) ---- DIANELYS WOMACK ([id number]) 1950 F Date Time Provider Department 10/18/22 SWATHI VERDUZCO [facility] During your visit today, we recorded the following information about you: Swathi Verduzco RN 10/18/2022 9:46 AM Signed Attempted to reach the patient at the contact number that they provided [phone] (home) . 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 Performed By: #### 1 0606, 8834, 91994 #### [facility] [address] [address], [address] [place] [address] Product Marketing Intern: Doug Trejo MD Chloride [Moles/Vol] 105 mmol/L Normal 98-110 [facility] Comment on above: Performed By: #### 1 7306, 8837, 06813 #### [facility] [place] [address] Product Marketing Intern: Doug Trejo MD CO2 [Moles/Vol] 30 mmol/L Normal 20-32 [facility] Comment on above: Performed By: #### 1 7306, 8837, 39329 #### [facility] [place] [address] Product Marketing Intern: Doug Trejo MD Creatinine [Mass/Vol] 0.89 mg/dL Normal 0.60-1.[address] [facility] Comment on above: Performed By: #### 1 73, 8837, 97642 #### [facility] [place] [address] Product Marketing Intern: Doug Trejo MD GFR/1.73 sq M.predicted among non-blacks MDRD (S/P/Bld) [Vol rate/Area] 69 mL/min/{1.73_m2} Normal > OR = 60 [facility] Comment on above: Performed By: #### 1 73, 8837, 30670 #### [facility] [place] [address] Product Marketing Intern: Doug Trejo MD Glucose [Mass/Vol] 102 mg/dL High 65-99 [facility] Comment on above: Result Comment: Fasting reference interval For someone without known diabetes, a glucose value between 100 and 125 mg/dL is consistent with prediabetes and should be confirmed with a follow-up test. Performed By: #### 1 7306, 8837, 55631 #### [facility] [place] [address] Product Marketing Intern: Doug Trejo MD Potassium [Moles/Vol] 3.9 mmol/L Normal 3.5-5.[address] [facility] Comment on above: Performed By: #### 1 7306, 8837, 65964 #### [facility] [address], [address] [place] [address] Product Marketing Intern: Doug Trejo MD Sodium [Moles/Vol] 142 mmol/L Normal 135-146 [facility] Comment on above: Performed By: #### 1 7306, 8837, 36518 #### [facility] [address], [address] [place] [address] Product Marketing Intern: Doug Trejo MD Urea nitrogen [Mass/Vol] 16 mg/dL Normal 7-25 [facility] Comment on above: Performed By: #### 1 7306, 8837, 21318 #### [facility] [address], [address] [place] [address] Product Marketing Intern: Doug Trejo MD PTH, INTACT AND CALCIUMon Calcium [Mass/Vol] 9.7 mg/dL Normal 8.6-10.4 [facility] Comment on above: Order Comment: FASTI NG:YES FASTING: YES Performed By: #### 1 7306, 8837, 19061 #### [facility] [address], [address] [place] [address] Product Marketing Intern: Doug Trejo MD PARATHYROID HORMONE, INTACT 62 [...] High Performed By: #### 1 7306, 8837, 19260 #### [facility] [place] [address] Product Marketing Intern: Doug Trejo MD VITAMIN D,25-OH,TOTAL,IAon 0 09-24-2022 [...] D, (D2,D3), LC/MS/MS is recommended: order code 73741 (patients >2yrs). See Note 1 Note 1 For additional information, please refer to http://education.AvidRetail/faq/DUV085 (This link is being provided for informational/ educational purposes only.) Performed By: #### 1 7306, 3591, 99580 #### [facility] [id number] [facility], [address] [place] [address] Product Marketing Intern: Doug Trejo MD Established Visit (Nephrolog y)on 09-20-2022 Established Visit (Nephrology) Diagnoses/Problems CKD (chronic kidney disease), stage III (585.3) (N18.30) Essential hypertension (401.9) (I10) Orders CKD (chronic kidney disease), stage III, Essential hypertension Basic Metabolic Panel; Status:Active; Requested for:98Jer0863; Parathormone Intact, Serum; Status:Active; Requested for:20Yjt4188; Vitamin D 25-Hydroxy; Status:Active; Requested for:61Phy4736; Essential hypertension Renew: amLODIPine Besylate 10 MG [...] OF HOT CHOCOLATE DAILY Former smoker (V15.82) (Z87.535) No alcohol use No illicit drug use [...] daily Vitals Vital Signs Recorded: 20Sep2022 12:51PM Evipqsdnlkw34.2 F Heart Rate90 Vkwjmbrf354, RUE, Sitting Aoqbrowms076, RUE, Sitting Height5 ft 3 in Otahzt032 lb BMI Inmregtlwc69.23 kg/m2 BSA Calculated1.78 Physical Exam General: The [...] Moves extremities. (more content not included)... Normal [facility] Cardiovasc Arrhythmia Result son 05-12-2022 Cardiovasc Arrhythmia Results Reason For Visit Reason for Visit: Holter Monitor: DIANELYS is here for the application of a 24 hour Holter monitor. Ordering Physician: Seema Jim NP Diagnosis: PVC [facility] equipment agreement signed. DIANELYS understands monitor is to be returned on: 05/13/2022 Monitor number [id number] applied. Holter monitor returned and downloaded. 05/18/2022 [...] Appointments Date/TimeProviderSp ecialtySite 09/20/2022 12:50 PMDaniel Ma MDNephrology[address] [place] [address] Dr Dominguez 3 DO 05/08/2023 01:00 PMElinor [address] [facility] 2 Alberto 250 DO Signatures Electronically signed by : Dima Minor MD; May 23 2022 4:14PM EST (Author) Electronically signed by : Seema Saldaña APRN-ADVERTISING PROJECT MANAGER; May 24 2022 2:39PM EST (Author) Normal [facility] Office Visit (Cardiology)on 05-04-2022 Follow-up visit Diagnoses/Problems [...] Adverse Reaction; (more content not included)... Normal [facility] Tobacco Screening.on 023 Adult depression screening assessment No [facility] [employer] 250 DO Work Phone: Fall risk assessment b) One or more falls in the last year [facility] [employer] 250 DO Work Phone: Tobacco use status [facility] b) No [facility] [employer] 250 DO Work Phone: Magdiel 03-28-2022 ALEXN Telephone (AZRAN) ---- VUDIANELYS Omi ([id number]) 1950 F Date Time Provider Department 03/28/22 Milagros VERA During your visit today, we recorded the following information about you: Stephanie Maradiaga [facility] 03/28/2022 2:00 PM Signed [phone] Dianelys Womack complains of watery diarrhea. 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 Lety Quinones [...] Fully Assessed Reason for Visit: Patient Question [9485] Prescriptions as of 03/28/2022 - neomycin 500 [...] Status:Closed by CAYDEN LEUNG on 03/28/22 Normal [facility] BASIC METABOLIC PANELon 02- BUN/CREATININE RATIO NOT APPLICABLE Normal - [facility] Comment on above: Performed By: #### 8 837, 718, 92767, 68043 #### [facility] [place] [address] Product Marketing Intern: Doug Trejo MD Chloride [Moles/Vol] 105 mmol/L Normal 98-110 [facility] Comment on above: Performed By: #### 8 837, 718, 41851, 37785 #### [facility] [place] [address] Product Marketing Intern: Doug Trejo MD CO2 [Moles/Vol] 30 mmol/L Normal 20-32 [facility] Comment on above: Performed By: #### 8 837, 718, 04374, 66987 #### [facility] [place] [address] Product Marketing Intern: Doug Trejo MD Creatinine [Mass/Vol] 0.94 mg/dL Normal 0.60-1.[address] [facility] Comment on above: Performed By: #### 8 837, 718, 68396, 05540 #### [facility] [place] [address] Product Marketing Intern: Doug Trejo MD GFR/1.73 sq M.predicted among non-blacks MDRD (S/P/Bld) [Vol rate/Area] 64 mL/min/{1.73_m2} Normal > OR = 60 [facility] Comment on above: Result Comment: The eGFR is based on the CKD-EPI 2020 equation. To calculate the new eGFR from a previous Creatinine or Cystatin C result, go to https://www.kidney.org/professionals/ kdoqi/gfr%5Fcalculator Performed By: #### 8 837, 718, 15867, 65136 #### [facility] [place] [address] Product Marketing Intern: Doug Trejo MD Glucose [Mass/Vol] 94 mg/dL Normal 65-99 [facility] Comment on above: Result Comment: Fasting reference interval Performed By: #### 8 837, 718, 95278, 96077 #### [facility] [place] [address] Product Marketing Intern: Doug Trejo MD Potassium [Moles/Vol] 4.3 mmol/L Normal 3.5-5.3 [facility] Comment on above: Performed By: #### 8 837, 718, 68406, 26215 #### [facility] [place] [address] Product Marketing Intern: Doug Trejo MD Sodium [Moles/Vol] 141 mmol/L Normal 135-146 [facility] Comment on above: Performed By: #### 8 837, 718, 35911, 67538 #### [facility] [place] [address] Product Marketing Intern: Doug Trejo MD Urea nitrogen [Mass/Vol] 18 mg/dL Normal 7-25 [facility] Comment on above: Performed By: #### 8 837, 718, 96857, 79467 #### [facility] [place] [address] Product Marketing Intern: Doug Trejo MD CTA ABD/PELVIS WO W [...] NATALIE FRANCO Date: 2022-03-24 08:09 Normal [facility] PHOSPHATE ( PHOSPHORUS)on 03-24-2022 Phosphate [Mass/Vol] 3.6 mg/dL Normal 2.1-4.3 [facility] t [facility] Comment on above: Performed By: #### 8 780, 001, 15315, 40238 #### [facility] [address], [address] [place] [address] Product Marketing Intern: Doug Trejo MD PTH, INTACT AND CALCIUMon Calcium [Mass/Vol] 9.5 mg/dL Normal 8.6-10.4 [facility] Comment on above: Order Comment: FASTI NG:YES FASTING: YES Performed By: #### 8 837, 718, 18211, 90202 #### [facility] [address] , [address] [place] [address] Product Marketing Intern: Doug Trejo MD PARATHYROID HORMONE, INTACT 42 [...] High Performed By: #### 8 837, 718, 68281, 94063 #### [facility] [place] [address] Product Marketing Intern: Doug Trejo MD VITAMIN D,25-OH,TOTAL,IAon 0 03-24-2022 [...] D, (D2,D3), LC/MS/MS is recommended: order code 92964 (patients >2yrs). See Note 1 Note 1 For additional information, please refer to http://education.AvidRetail/faq/YDU095 (This link is being provided for informational/ educational purposes only.) Performed By: #### 8 837, 718, 83226, 23674 #### [facility] [address], [address] [place] [address] Product Marketing Intern: Doug Trejo MD CREATININEon 03-23-2022 Creatinine [Mass/Vol] 0.97 mg/dL Normal 0.55-1.02 [facility] Comment on above: Performed By: #### C DOYLE ####[facility] [id number]. Sheila Mittal EGFR-AF PARAGUAYAN >60 Normal >=60 [facility] Comment on above: Performed By: #### C DOYLE ####[facility] [address] [place], [place] [address]Ic. Dannajennifer Mittal EGFR-NON AF PARAGUAYAN 56 mL/min/1.73m2 Critically low >=60 [facility] Comment on above: Performed By: #### C DOYLE ####[facility] [address] [address]Dr. Sheila Kyrie Established Visit (Nephrolog y)on 03-22-2022 Established Visit (Nephrology) Diagnoses/Problems CKD (chronic kidney disease), stage III (585.3) (N18.30) Essential hypertension (401.9) (I10) Orders CKD (chronic kidney disease), stage III, Essential hypertension Basic Metabolic Panel; Status:Active; Requested for:50Ntq8606; Parathormone Intact, Serum; Status:Active; Requested for:96Ocm5188; Phosphorus, Serum; Status:Active; Requested for:18Jxp3760; Vitamin D 25-Hydroxy; Status:Active; Requested for:86Iob8191; Provider Impressions 1. Hypertension. Blood pressure is [...] CAPSone capsule daily Vitals Vital Signs Recorded: 50Qkp8684 03:35PM Sgcczxjhksf21.1 F Heart Rate60 Upyzbluq645, LUE, Sitting Qamwoyxnk38, LUE, Sitting Height5 ft 3 in Utunmk085 lb BMI Jgbokkikoq52.81 kg/m2 BSA Calculated1.74 Tobacco Useb) No Falls [...] Exam: Speech is fluent. Moves extremities. Results/Data [facility] Basic Metabolic Smrrr09Naq5466 10:05[facility] [address] [address] (more content not included)... Normal [facility] Tobacco Screening.on 023 Fall risk assessment b) One or more falls in the last year [facility] 3 DO Work Phone: Tobacco use status CPHS b) No M [facility] 3 DO Work Phone: CNPKaelyn 03-10-2022 CNPN Telephone (CORSMN) ---- DIANELYS WOMACK ([id number]) 1950 F Date Time Provider Department 03/10/22 Milagros VERA During your visit today, we recorded the following information about you: Stephanie Maradiaga [facility] 03/10/2022 1:30 PM Signed [phone] Dianelys Womack asked to speak with Lety. 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 Stephanie Maradiaga [facility] 03/09/2022 2:39 PM Signed I called patient and left message. An order for vascular surgery consult was placed. A message was sent to our schedulers to coordinate, however, she can call herself to schedule [phone] Allergies As of Date: 03/08/2022 Noted Allergy [...] Status:Closed by STEPHANIE JONES on 03/09/22 Normal [facility] OPERATIVE NOon 03-04-2022 OPERATIVE NO HNO ID: [id number] Author: Milagros Vera MD Service: Colorectal Author Type: Physician Type: Operative Report Filed: 03/04/2022 6:56 AM Note Text: [facility] - Operative Report [address], [place] [address] [place] DIANELYS WOMACK : 1950 AGE: 71. SEX: F PATIENT TYPE: A HOSP SVC: CRS LOCATION: [id number] ATTENDING PHYSICIAN: Fei Vera M.D. [facility] NUMBER: [id number] DATE OF SURGERY/PROCEDURE: 03/03/2022 INCISION/PROCEDURE START TIME: 12:56 PM INCISION CLOSE/PROCEDURE END TIME: 3:38 PM PREOPERATIVE DIAGNOSIS: Rectal LST POSTOPERATIVE DIAGNOSIS: Same SURGEON: Fei Vera M.D. COLLAR POINTER: COLLAR POINTER: Pierre Tinoco MD. No qualified resident available. He participated in all portions of the surgery documented. This includes patient positioning, abdominal access, exposure, dissection and abdominal closure. . No qualified resident was available and he was instrumental in huddling and assistance and closure of the procedure. SURGERY/PROCEDURE: Endoscopic submucosal dissection (79868) and transanal endoscopic removal of the larger [...] a 71-year-old woman, who was referred to md for further management of this large rectal [...] portions of the operation. Fei Vera M.D. EG:[id number] /[id number] Normal [facility] ANES POSTPROC EVALon 023 ANES POSTPROC EVAL HNO ID: [id number] Author: Lakeshia Delacruz MD, PhD Service: ? Author Type: Anesthesiologist Type: Anesthesia Postprocedure Evaluation Filed: 03/03/2022 9:43 PM Note Text: POST ANESTHESIA EVALUATION NOTE : 1950 Procedure Summary Date: 03/03/22 Room / Location: [place] [address] / [facility] Anesthesia Start: 1207 Anesthesia [...] with this procedure. Documented by Rohini Stephenson APRN.JOURNEYMAN PRESS OPERATOR 03/03/2022 3:04 PM EST SIGNATURE: Lakeshia Delacruz MD, PhD PATIENT NAME: Dianelys Womack DATE: March 03, 2022 TIME: 9:43 PM CSN: [id number] Normal [facility] ANES PRE-OPon 03-03-2022 ANES PRE-OP HNO ID: [id number] Author: Lakeshia Delacruz MD, PhD Service: ? [...] and consent discussed: yes. Patient / Responsible Constitution Party agrees to proceed: yes Patient / Surrogate [...] March 03, 2022 TIME: 11:39 AM CSN: [id number] Normal [facility] BRIEF OP NOTon 03-03-2022 BRIEF OP NOT HNO ID: [id number] Author: Pollo Cardenas MD, PhD Service: Colorectal Author Type: Physician Type: Brief Op Note Filed: 03/03/2022 3:30 PM Note Text: BRIEF OPERATIVE NOTE - COLORECTAL SURGERY Log ID: [id number] Surgery/Procedure Date: 03/03/2022 Incision/Procedure Start Time: 12:56 PM Incision Close/Procedure End Time: 3:26 PM Surgeon(s) and Graphics Manager(s): Surgeon(s) and Role: * Milagros Vera MD [...] March 03, 2022 TIME: 3:26 PM Normal [facility] COLONOSCOPY (THERAPEUTIC)on 03-03-2022 [facility] Colonoscopyon 03-03-2022 Colonoscopy OR Gastrointestinal Endoscopy [...] was minimal. Procedure Start: Procedure End: Normal [facility] SURGICAL PATHOLOGYon 023 CASE REPORT Normal [facility] Comment on above: Order Comment: Speci lindsay Type: TISSUE SPECIMENOrdering Facility: [facility] Address: [address] [place] [address] Result Comment: Surg [facility] Pathology Report Case: [id number] Authorizing Provider: Milagros Vera MD Collected: 03/03/2022 01:26 PM Ordering Location: Admitting Received: 03/03/2022 05:31 PM Pathologist: Huong Cortez MD Specimens: A) - COLON POLYP, DESCENDING COLON POLYP B) - RECTAL POLYP Performed By: #### S ####[facility] [id number] [address] STATES OF [place] CLINICAL HISTORY Normal [facility] Comment on above: Order Comment: Speci men Type: TISSUE SPECIMENOrdering Facility: [facility] Address: [address] [place], [place] [address] Result Comment: Pre- op diagnosis: Rectal mass [K62.89] Performed By: #### S ####[facility] LABIA [id number] [address] STATES OF [facility] FINAL DIAGNOSIS Normal [facility] Comment on above: Order Comment: Jocelyni lindsay Type: TISSUE SPECIMENOrdering Facility: [facility] Address: [address] [place] [address] Result Comment: A. C olon, descending polyp, polypectomy: - Fragments of tubular adenoma B. 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 - Low-grade dysplasia focally present at the peripheral mucosal margin. ES/HH 03/08/2022 Performed By: #### S ####[facility] LABCLIA [id number] [address] OF [facility] FINAL PERFORMING LAB Normal [facility] Comment on above: Order Comment: Speci men Type: TISSUE SPECIMENOrdering Facility: [facility] Address: [address] [place] [address] Result Comment: Diag nostic interpretation performed at [facility], [address] [place] [address] CLIA# [id number] Consultant: Johnny Rich M.D. Performed By: #### S ####[facility] LABCLIA [id number] [address] GROSS DESCRIPTION A. COLON POLYP Normal [facility] Comment on above: Order Comment: Speci men Type: TISSUE SPECIMENOrdering Facility: [facility] Address: [address] [place] [address] Result Comment: Rece ived in formalin with the patient's name, medical record number, and descending colon polyp is a 2.5 x 0.3 x 0.2 cm aggregate of pascual soft tissue fragments. Submitted in A1 and A2. Gross examination performed at [facility], [address] [place] [address] TTN 03/03/2022 9:21 PM B. RECTAL POLYP [...] margin, perpendicular sections Gross examination performed at [facility], 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 As discussed, please fax to Renetta feliz [phone] Allergies As of Date: 03/01/2022 Noted Allergy Reaction CIPROFLOXACIN 10/05/2020 16 - Unknown Flagyl (METRONIDAZOLE) 08/04/2016 16 - Unknown LEVOFLOXACIN 03/10/2015 16 - Unknown PENICILLINS 03/10/2015 16 - Unknown 14 - Other: See Comments SEASONAL ALLERGIES 10/05/2020 16 - Unknown SOY 05/16/2015 16 - Unknown VANCOMYCIN 11/17/2021 16 - Unknown Date Reviewed: 02/24/2022 Reviewed by: Karson Monte APRN.[facility] - Fully Assessed Reason for Visit: Patient [...] [facility]22 [facility] Magdiel 02-28-2022 [place]AN [place] Telephone (PANTERA) ---- DIANELYS WOMACK ([id number]) 1950 F Date Time Provider Department 02/28/22 Milagros VERA During your visit today, we recorded the following information about you: Stephanie Maradiaga [facility] 02/28/2022 9:27 AM Signed [phone] Dianelys Womack has questions about meds she [...] Date Reviewed: 02/24/2022 Reviewed by: Karson Monte APRN.ADVERTISING PROJECT MANAGER - Fully Assessed 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 Address: [address] [place] [address] Performed By: #### 5 8410-2 ####[facility] LABIA [id number] [place] [address] [place] Hematocrit (Bld) [Volume fraction] 38.0 % Normal 36.0-46.0 [facility] Comment on above: Order Comment: Magnus montoya Type: BLOOD SPECIMENOrdering Facility: [facility] Address: [address] [place] [address] Performed By: #### 5 8410-2 ####[facility] LABCLIA [id number] [place] [address] [place] Hemoglobin (Bld) [Mass/Vol] 12.1 g/dL Normal 11.5-15.5 [facility] Comment on above: Order Comment: Jocelyni men Type: BLOOD SPECIMENOrdering Facility: [facility] Address: [address] [place] [address] Performed By: #### 5 8410-2 ####[facility] LABCLIA [id number] [address] MCH (RBC) [Entitic mass] 26.7 pg Normal 26.0-34.0 [facility] Comment on above: Order Comment: Speci men Type: BLOOD SPECIMENOrdering Facility: [facility] Address: [address] [place] [address] Performed By: #### 5 8410-2 ####[facility] LABCLIA [id number] [address] STATES [facility] MCHC (RBC) [Mass/Vol] 31.8 g/dL Normal 30.5-36.0 [facility] Comment on above: Order Comment: Speci men Type: BLOOD SPECIMENOrdering Facility: [facility] Address: [address] [place] [address] Performed By: #### 5 8410-2 ####[facility] LABCLIA [id number] [address] [place] MCV (RBC) [Entitic vol] 83.7 fL Normal 80.0-100.0 C [facility] Comment on above: Order Comment: Speci men Type: BLOOD SPECIMENOrdering Facility: [facility] Address: [address] [place] [address] Performed By: #### 5 8410-2 ####[facility] LABCLIA [id number] [place] [address] [place] Nucleated RBC (Bld) [#/Vol] 10*3/uL Normal <0.01 [facility] Comment on above: Order Comment: Speci men Type: BLOOD SPECIMENOrdering Facility: [facility] Address: [address] [place], [place] [address] Performed By: #### 5 8410-2 ####[facility] LABCLIA [id number] [address] [place] Platelet mean volume (Bld) [Entitic vol] 10.6 fL Normal 9.0-12.7 [facility] Comment on above: Order Comment: Speci men Type: BLOOD SPECIMENOrdering Facility: [facility] Address: [address] [place], [place] [address] Performed By: #### 5 8410-2 ####[facility] LABCLIA [id number] [place] [address] [place] Platelets (Bld) [#/Vol] 161 10*3/uL Normal 150-400 [facility] Comment on above: Order Comment: Speci men Type: BLOOD SPECIMENOrdering Facility: [facility] Address: [address] [place], [place] [address] Performed By: #### 5 8410-2 ####[facility] LABCLIA [id number] [place] [address] [place] RBC (Bld) [#/Vol] 4.54 10*6/uL Normal 3.90-5.20 [facility] Comment on above: Order Comment: Speci men Type: BLOOD SPECIMENOrdering Facility: [facility] Address: [address] [place], [place] [address] Performed By: #### 5 8410-2 ####[facility] LABCLIA [id number] [place] [address] [place] WBC (Bld) [#/Vol] 6.18 10*3/uL Normal 3.70-11.00 [facility] Comment on above: Order Comment: Speci men Type: BLOOD SPECIMENOrdering Facility: [facility] Address: [address] [place], [place] [address] Performed By: #### 5 8410-2 ####[facility] LABCLIA [id number] [place] [address] [place] CEA SerPl-mCncon 02-24-2022 Carcinoembryonic Ag [Mass/Vol] 1.3 ng/mL Normal <=2.9 [facility] Comment on above: Order Comment: Speci men Type: BLOOD SPECIMENOrdering Facility: [facility] Address: [address] [place] [address] Result Comment: Carc inoembryonic antigen test is used as an aid in monitoring response to treatment or recurrence in patients with established colorectal, breast, lung, prostatic, pancreatic, and ovarian carcinomas. Clinical correlation is required. The Carcinoembryonic antigen test was performed using the [place] [employer] DXI paramagnetic particle chemiluminescent immunoassay method. Results obtained with different assay methods or kits cannot be used interchangeably. 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 Please call patient at [phone] Lety Quinones RN 02/24/2022 12:35 PM Signed [...] Date Reviewed: 02/24/2022 Reviewed by: Karson Monte APRN.ADVERTISING PROJECT MANAGER - Fully Assessed Reason for Visit: Returning [...] Status:Closed by BLAINE HERRING on 02/24/22 Normal [facility] CONFIRM BLOOD TYPEon 023 ABO O Normal [facility] Comment on above: Order Comment: Speci men Type: BLOOD SPECIMEN [facility] Address: [address] [place] [address] Performed By: #### C ONABO #### [facility] CLIA [id number] [address] [place] [address] [place] Rh Nom (Bld) Positive Normal [facility] Comment on above: Order Comment: Speci men Type: BLOOD SPECIMEN [facility] Address: [address] [place] [address] Performed By: #### C ONABO #### [facility] CLIA [id number] [address] [place] [address] [place] Comprehensive metabolic 2000 panelon 02-24-2022 Albumin [Mass/Vol] 3.8 g/dL Low 3.9-4.9 [facility] Comment on above: Order Comment: Speci men Type: BLOOD SPECIMENOrdering Facility: [facility] Address: [address] [place] [address] Performed By: #### 2 4323-8 ####[facility] LABCLIA [id number] [place] [address] [place] ALP [Catalytic activity/Vol] 152 U/L High 34-123 [facility] Comment on above: Order Comment: Speci men Type: BLOOD SPECIMENOrdering Facility: [facility] Address: [address] [place], [place] [address] Performed By: #### 2 4323-8 ####[facility] LABCLIA [id number] [place] [address] [place] ALT [Catalytic activity/Vol] 17 U/L Normal 7-38 [facility] Comment on above: Order Comment: Speci men Type: BLOOD SPECIMENOrdering Facility: [facility] Address: [address] Performed By: #### 2 4323-8 ####[facility] LABCLIA [id number] [place] [address] [place] Anion gap [Moles/Vol] 11 mmol/L Normal 9-18 [facility] Comment on above: Order Comment: Speci men Type: BLOOD SPECIMENOrdering Facility: [facility] Address: [address] Performed By: #### 2 4323-8 ####[facility] LABCLIA [id number] [place] [address] [place] AST [Catalytic activity/Vol] 30 U/L Normal 13-35 [facility] Comment on above: Order Comment: Speci men Type: BLOOD SPECIMENOrdering Facility: [facility] Address: [address] Performed By: #### 2 4323-8 ####[facility] LABCLIA [id number] [place] [address] [place] Bilirubin [Mass/Vol] 0.4 mg/dL Normal 0.2-1.3 [facility] Comment on above: Order Comment: Speci men Type: BLOOD SPECIMENOrdering Facility: [facility] Address: [address] Performed By: #### 2 4323-8 ####[facility] LABIA [id number] [place] [address] [place] Calcium [Mass/Vol] 10.0 mg/dL Normal 8.5-10.2 [facility] Comment on above: Order Comment: Speci men Type: BLOOD SPECIMENOrdering Facility: [facility] Address: [address] Performed By: #### 2 4323-8 ####[facility] LABCLIA [id number] [place] [address] [place] Chloride [Moles/Vol] 105 mmol/L Normal 97-105 [facility] Comment on above: Order Comment: Speci men Type: BLOOD SPECIMENOrdering Facility: [facility] Address: [address] Performed By: #### 2 4323-8 ####[facility] LABCLIA [id number] [place] [address] [place] CO2 [Moles/Vol] 22 mmol/L Normal 22-30 [facility] Comment on above: Order Comment: Speci men Type: BLOOD SPECIMENOrdering Facility: [facility] Address: [address] [place] [address] Performed By: #### 2 4323-8 ####[facility] LABCLIA [id number] [place] [address] [place] Creatinine [Mass/Vol] 0.82 mg/dL Normal 0.58-0.96 [facility] Comment on above: Order Comment: Speci men Type: BLOOD SPECIMENOrdering Facility: [facility] Address: [address] [place] [address] Performed By: #### 2 4323-8 ####[facility] LABIA [id number] [address] [place] ESTIMATED GLOMERULAR FILTRATION RATE 76 mL/min/1.73m??? Normal >=60 [facility] Comment on above: Order Comment: Speci men Type: BLOOD SPECIMENOrdering Facility: [facility] Address: [address] [place] [address] Result Comment: Hortencia mated Glomerular Filtration Rate [...] actual GFR. Performed By: #### 2 4323-8 ####[facility] LABCLIA [id number] [place] [address] [place] Glucose [Mass/Vol] 98 mg/dL Normal 74-99 [facility] Comment on above: Order Comment: Speci men Type: BLOOD SPECIMENOrdering Facility: [facility] Address: [address] [place] [address] Result Comment: The [place] Diabetes Association (ADA) provides guidance for cutoff [...] Standards of Medical Care in Diabetes 2016, [place] [employer] Association. Diabetes Care. 2016.39(Suppl 1). Performed By: #### 2 4323-8 ####[facility] [id number] [place] [address] [place] Potassium [Moles/Vol] 4.5 mmol/L Normal 3.7-5.1 [facility] Comment on above: Order Comment: Speci men Type: BLOOD SPECIMENOrdering Facility: [facility] Address: [address] Performed By: #### 2 4323-8 ####[facility] [id number] [place] [address] [place] Protein [Mass/Vol] 6.8 g/dL Normal 6.3-8.0 [facility] Comment on above: Order Comment: Speci men Type: BLOOD SPECIMENOrdering Facility: [facility] Address: [address] [place] [address] Performed By: #### 2 4323-8 ####[facility] LABIA [id number] [place] [address] [place] Sodium [Moles/Vol] 138 mmol/L Normal 136-144 [facility] Comment on above: Order Comment: Speci men Type: BLOOD SPECIMENOrdering Facility: [facility] Address: [address] [place] [address] Performed By: #### 2 4323-8 ####[facility] LABCLIA [id number] [place] [address] [place] Urea nitrogen [Mass/Vol] 20 mg/dL Normal 7-21 [facility] Comment on above: Order Comment: Speci men Type: BLOOD SPECIMENOrdering Facility: [facility] Address: [address] [place] [address] Performed By: #### 2 4323-8 ####[facility] [id number] [place] [address] [place] ECG COMPLETEon 02-24-2022 ECG COMPLETE Ventricular Rate : 54 BPM Atrial Rate : 54 BPM P-R Interval : 172 ms QRS Duration : 96 ms Q-T Interval : 450 ms QTC Calculation(Bazett) : 426 ms Calculated P Onley : 59 degrees Calculated R Onley : -33 degrees Calculated T Onley : 48 degrees SINUS BRADYCARDIA LEFT AXIS DEVIATION ABNORMAL ECG Confirmed by JHON JO M.D. (67) on 03/01/2022 1:40:04 PM NAME : DIANELYS WOMACK PID : [id number] : 1950 Gender : Female Race : ORD : [id number] Procedure Date : Feb 24 2022 10:59:01 Edit Date : Mar 01 2022 13:43:37 Diagnosis: SINUS BRADYCARDIA LEFT AXIS DEVIATION ABNORMAL ECG Confirmed by JHON JO M.D. (67) on 03/01/2022 1:40:04 PM Test Reason : Location : [facility] : [place] [address] Overread By : JHON JO M.D. Edited By : JHON JO M.D. Referred By : Milagros VERA Acquired by : BOIMay [facility] HISTORY PHYSICALon HISTORY PHYSICAL HNO ID: [id number] Author: Karson Monte APRN.ADVERTISING PROJECT MANAGER Service: ? Author Type: Nurse Practitioner Type: [...] Never D (more content not included)... Normal [facility] TYPE AND SCREEN,30 DAYon ABO O Normal [facility] Comment on above: Order Comment: Speci men Type: BLOOD SPECIMEN [facility] Address: [address] [place] [address] Performed By: #### T SCR30 #### [facility] CLIA [id number] HISTORICAL AB SCR STATUS Negative Normal [facility] Comment on above: Order Comment: Speci men Type: BLOOD SPECIMEN Ordering Facility: [facility] Address: [address] [place] [address] Performed By: #### T SCR30 #### [facility] CLIA [id number] [address] [place] Rh Nom (Bld) Positive Normal [facility] Comment on above: Order Comment: Speci men Type: BLOOD SPECIMEN Ordering Facility: [facility] Address: [address] [place] [address] Performed By: #### T SCR30 #### [facility] CLIA [id number] [address] CNOVon 01-12-2022 CNOV Office Visit (CORSCC) ---- DIANELYS WOMACK ([id number]) 1950 F Date Time Provider Department 01/12/22 9:30 AM Milagros VERA [facility] During your visit today, we [...] Abdomen soft, (more content not included)... Normal [facility] HISTORY PHYSICALon 2 HISTORY PHYSICAL HNO ID: [id number] Author: Milagros Vera MD Service: ? Author [...] closed Resting tone: NORMAL Squeeze tone: NORMAL Director Of Program Management pr (more content not included)... [facility] (GASTMN) ---- DIANELYS WOMACK ([id number]) 1950 F Date Time Provider Department 12/24/21 [...] Status:Closed by TAZ TEJEDA on 12/24/21 Normal [facility] ANES POSTPROC EVALon 022 ANES POSTPROC EVAL HNO ID: [id number] Author: Niko Hernandez MD Service: ? Author [...] Kapadia MD; Niko Hernandez MD; Colten Persaud APRN.JOURNEYMAN PRESS OPERATOR Responsible Provider: Niko Hernandez MD Anesthesia Type: [...] Dianelys Womack DATE: December 06, 2021 TIME: 5:29 PM CSN: [id number] Normal [facility] ANES PRE-OPon 12-06-2021 ANES PRE-OP HNO ID: [id number] Author: Niko Hernandez MD Service: ? Author Type: Anesthesiologist Type: Anesthesia Preprocedure Evaluation Filed: 12/06/2021 10:43 AM Note Text: ANESTHESIOLOGY DAY OF SURGERY NOTE : 1950 Procedure Information Date/Time: 12/06/21 0930 Scheduled providers: Kenton Kapadia MD; Debbi Guerin APRN.JOURNEYMAN PRESS OPERATOR; Niko Hernandez MD Procedures: COLONOSCOPY DIAGNOSTIC EGD [...] (+) CVA (cerebral vascular accident) ([facility]) (+) History of anesthesia complications PULMONARY (-) Chronic obstructive pulmonary disease (COPD) ([facility]) (-) Recent URI I - PHYSICAL [...] and consent discussed: yes. Patient / Responsible Constitution Party agrees to proceed: yes Patient / Surrogate [...] December 06, 2021 TIME: 9:07 AM CSN: [id number] Normal [facility] COLONOSCOPY DIAGNOSTICon [facility] Colonoscopyon 12-06-2021 Colonoscopy Q3 Patient Name: [...] was incomplete. Procedure Code(s): --- Professional --- 17441, 52, Colonoscopy, flexible; with biopsy, single or multiple Diagnosis Code(s): --- Professional --- D49.0, Neoplasm of unspecified behavior of digestive system R10.84, Generalized abdominal pain CPT copyright 2020 [employer]. All rights reserved. Attending Participation: I personally performed the entire procedure. Scope In: 11:25:59 AM Scope Out: 11:47:49 AM MD Kenton Rowe MD 12/06/2021 11:58:39 AM This report has been signed electronically by Kenton Kapadia MD Number of Addenda: 0 Note Initiated On: 12/06/2021 10:56 AM Normal [facility] EGD DIAGNOSTICon 12-06-2021 [facility] NURSING PROGon 12-06-2021 NURSING PROG HNO ID: [id number] Author: Anastasia Orlando, DELMAR Service: Nursing Author [...] Electronically Signed By: Anastasia Orlando RN Normal [facility] SURGICAL PATHOLOGYon 022 CASE REPORT Normal [facility] Comment on above: Order Comment: Speci men Type: TISSUE SPECIMENOrdering Facility: [facility] Address: [address] [place] [address] Result Comment: Surg ica Pathology Report Case: [id number] Authorizing Provider: Kenton Kapadia MD Collected: 12/06/2021 11:44 AM Ordering Location: Gastroenterology Received: 12/06/2021 03:33 PM Pathologist: Nathaniel Ford MD Specimen: RECTAL BIOPSY, rectal mass r/o CA Performed By: #### S ####[facility] LABCLIA [id number] [address] FINAL DIAGNOSIS Normal [facility] Comment on above: Order Comment: Speci men Type: TISSUE SPECIMENOrdering Facility: [facility] Address: [address] [place] [address] Result Comment: A. R ectum, mass, biopsy: - Superficial fragments of traditional serrated adenoma. Performed By: #### S ####[facility] LABCLIA [id number] [address] FINAL PERFORMING LAB Normal [facility] Comment on above: Order Comment: Speci men Type: TISSUE SPECIMENOrdering Facility: [facility] Address: [address] [place] [address] Result Comment: Diag nostic interpretation performed at [facility], [address] [place] [address] CLIA# [id number] Consultant: Johnny H. Henricks, M.D. Performed By: #### S ####[facility] LABIA [id number] [address] OF [facility] GROSS DESCRIPTION Normal [facility] Comment on above: Order Comment: Speci men Type: TISSUE SPECIMENOrdering Facility: [facility] Address: [address] [place] [address] Result Comment: A. R ECTAL BIOPSY Received in formalin are multiple pieces of pascual, soft tissue aggregating to 1.7 x 0.3 x 0.2 cm. Totally submitted in one cassette. Gross examination performed at [facility], [address] [place] [address] 12/06/2021 9:49 PM Performed By: #### S ####[facility] LABIA [id number] [address] Magdiel 11-29-2021 JUAN DIEGO Telephone (GASTPR) ---- DIANELYS WOMACK ([id number]) 1950 F Date Time Provider Department 11/29/21 JESSICA GREEN During your visit today, we recorded the following information about you: Jessica Green RN 11/29/2021 12:49 PM Signed Attempted to reach the patient at the contact number that they provided [phone] (home). 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 cash applications representative they must have a responsible adult [...] -Number to call with questions or concerns [phone] Jessica Green RN BSN Allergies As of Date: 11/29/2021 (Not on File) Date Reviewed: Never Reviewed Reason for Visit: Appointment Confirmation [[phone]] Cmt: Pre-procedure instructions Problem List As Of Date: 11/29/2021 (None) Encounter Status:Closed by JESSICA GREEN on 11/29/21 Normal [facility] Albumin [Mass/volume] in Ser um or PlasmaOrdered By: Chucho Saldaña on 11-17-2021 Albumin [Mass/Vol] 3.6 g/dL 3.2-5.5 [facility] Automated erythrocytes count in urine sediment (number/area)Ordered By: Chucho Saldaña on 11-17-2021 RBC Auto (Urine sed) [#/Area] 0-1 [HPF] 0-4 [facility] Automated leukocytes count i n urine sediment (number/area)Ordered By: Chucho Saldaña on 11-17-2021 WBC Auto (Urine sed) [#/Area] 3-4 [HPF] 0-4 [facility] Basic Metabolic Panelon Anion gap [Moles/Vol] 15.1 mmol/L High 6.0-15.0 [facility] Comment on above: Performed By: #### C BC, LIPASE, BMP, HEPATIC #### [facility] [address] [place] [address] [place] Calcium [Mass/Vol] 10.0 mg/dL Normal 8.2-10.2 [facility] Comment on above: Performed By: #### C BC, LIPASE, BMP, HEPATIC #### [facility] [address] [place] [id number] [place] Chloride [Moles/Vol] 103 mmol/L Normal 95-114 [facility] Comment on above: Performed By: #### C BC, LIPASE, BMP, HEPATIC #### [facility] [address] [place] [address] [place] CO2 [Moles/Vol] 27.0 mmol/L Normal 22.0-30.0 [facility] Comment on above: Performed By: #### C BC, LIPASE, BMP, HEPATIC #### [facility] [address] Creatinine [Mass/Vol] 0.86 mg/dL Normal 0.44-1.03 [facility] Comment on above: Performed By: #### C BC, LIPASE, BMP, HEPATIC #### [facility] [address] Creatinine Clr Calc Pharmacy 58.14 [facility] Comment on above: Performed By: #### C BC, LIPASE, BMP, HEPATIC #### [facility] [address] Estimated GFR ( [place] > 60 [facility] Comment on above: Result Comment: GFR estimated reference range: According to KDOQI guidelines, <60 ml/min/1.73m2 is sufficient to diagnose a patient with chronic kidney disease. Performed By: #### C BC, LIPASE, BMP, HEPATIC #### [facility] [address] Estimated GFR (Non- Am > 60 [facility] Comment on above: Performed By: #### C BC, LIPASE, BMP, HEPATIC #### [address] Glucose [Mass/Vol] 95 mg/dL Normal 70-100 [facility] Comment on above: Result Comment: [place] Glucose Reference Range is dependent on time and content of last meal. Glucose of more than 200 mg/dL in a nonstressed, ambulatory subject supports the diagnosis of Diabetes Mellitus. ADA recommended reference range Performed By: #### C BC, LIPASE, BMP, HEPATIC #### [facility] [address] Potassium [Moles/Vol] 3.1 mmol/L Low 3.5-5.1 [facility] Comment on above: Performed By: #### C BC, LIPASE, BMP, HEPATIC #### [address] Sodium [Moles/Vol] 142 mmol/L Normal 136-146 [facility] Comment on above: Performed By: #### C BC, LIPASE, BMP, HEPATIC #### [facility] [address] Urea nitrogen [Mass/Vol] 9 mg/dL Normal 9-23 [facility] Comment on above: Performed By: #### C BC, LIPASE, BMP, HEPATIC #### [facility] [address] Basophils Auto (Bld) [#/Vol] Ordered By: Chucho Saldaña on 11-17-2021 Basophils (Bld) [#/Vol] 0.0 10*3/uL 0.0-0.2 [facility] Basophils/100 WBC Auto (Bld) Ordered By: Chucho Saldaña on 11-17-2021 Basophils/100 WBC (Bld) 0.6 % . [facility] Bilirubin Test strip Ql (U)O rdered By: Chucho Saldaña on 11-17-2021 Bilirubin Ql (U) Negative Negative [facility] Blood hemoglobin measurement (mass/volume)Ordered By: Chucho Saldaña on 11-17-2021 Hemoglobin (Bld) [Mass/Vol] 13.4 g/dL 11.8-15.4 [facility] Blood leukocytes automated c ount (number/volume)Ordered By: Chucho Saldaña on 11-17-2021 WBC (Bld) [#/Vol] 6.4 10*3/uL 4.5-11.[address] [facility] [address] abdomen pelvis wo conon 1 CT abdomen pelvis wo con [facility] [place] [address] [place] [address] CT Scan Report Signed Patient: Dianelys Womack MR#: [id number] : 1950 Acct:[id number] Age/Sex: 70 / F ADM Date: 11/17/21 Loc: ER Room: Type: [facility] ER Attending Dr: Copies to: Chucho Saldaña MD Ordering Provider: Chucho Saldaña MD Date of Service: 11/17/21 CT/CT abdomen pelvis wo con: formerly [facility] CT abdomen and pelvis withoutcontrast TECHNIQUE: Axial [...] Nick Gimenez M.D.11/17/2021 12:37 PM Dictation Location: [place] [address] Transcribed By: [facility] 11/17/21 1237 Dictated By: Nick Gimenez DO 11/17/21 1227 Signed By: 11/17/21 1237 Normal [facility] Color Auto (U)Ordered By: Swathi aSldaña on 11-17-2021 Color (U) Yellow Yellow [facility] Complete Blood Count Auto Di ffon 11-17-2021 Basophils (Bld) [#/Vol] 0.0 10*3/uL Normal 0.0-0.2 [facility] Comment on above: Result Comment: PERF ORMED BY: [place] [address] PATHOLOGIST DOCUMENT MANAGEMENT TECHNICIAN LISA VERDE M.D. Performed By: #### C BC, LIPASE, BMP, HEPATIC #### [address] Basophils/100 WBC (Bld) 0.6 % Normal . [facility] Comment on above: Performed By: #### C BC, LIPASE, BMP, HEPATIC #### [address] Eosinophils (Bld) [#/Vol] 0.0 10*3/uL Normal 0.0-0.45 [facility] Comment on above: Performed By: #### C BC, LIPASE, BMP, HEPATIC #### [address] Eosinophils/100 WBC (Bld) 0.8 % Normal . [facility] Comment on above: Performed By: #### C BC, LIPASE, BMP, HEPATIC #### [address] Erythrocyte distribution width (RBC) [Ratio] 15.8 % High 11.9-15.3 [facility] Comment on above: Performed By: #### C BC, LIPASE, BMP, HEPATIC #### [address] Hematocrit (Bld) [Volume fraction] 41.7 % Normal 34.0-46.4 [facility] Comment on above: Performed By: #### C BC, LIPASE, BMP, HEPATIC #### [address] Hemoglobin (Bld) [Mass/Vol] 13.4 g/dL Normal 11.8-15.4 [facility] Comment on above: Performed By: #### C BC, LIPASE, BMP, HEPATIC #### [address] Lymphocytes (Bld) [#/Vol] 0.9 10*3/uL Low 1.00-4.8 [facility] Comment on above: Performed By: #### C BC, LIPASE, BMP, HEPATIC #### [facility] [address] [place] [address] [place] Lymphocytes/100 WBC (Bld) 14.4 % Normal . [facility] Comment on above: Performed By: #### C BC, LIPASE, BMP, HEPATIC #### [facility] [address] MCH (RBC) [Entitic mass] 27.3 pg Normal 24.7-34.3 [facility] Comment on above: Performed By: #### C BC, LIPASE, BMP, HEPATIC #### [facility] [address] MCV (RBC) [Entitic vol] 84.9 fL Normal 80-100 [facility] Comment on above: Performed By: #### C BC, LIPASE, BMP, HEPATIC #### [facility] [address] Mean Corpuscular HGB Conc 32.2 g/dL Normal 32.0-35.0 [facility] Comment on above: Performed By: #### C BC, LIPASE, BMP, HEPATIC #### [facility] [address] [place] [address] [place] Monocytes (Bld) [#/Vol] 0.4 10*3/uL Normal 0.0-0.8 [facility] Comment on above: Performed By: #### C BC, LIPASE, BMP, HEPATIC #### [facility] [address] [place] [address] [place] Monocytes/100 WBC (Bld) 7.0 % Normal . [facility] Comment on above: Performed By: #### C BC, LIPASE, BMP, HEPATIC #### [facility] [address] [place] [address] [place] Neutrophils (Bld) [#/Vol] 5.0 10*3/uL Normal 1.8-7.7 [facility] Comment on above: Performed By: #### C BC, LIPASE, BMP, HEPATIC #### [facility] [address] [place] [address] [place] Neutrophils/100 WBC (Bld) 77.2 % Normal . [facility] Comment on above: Performed By: #### C BC, LIPASE, BMP, HEPATIC #### [facility] [address] Nucleated RBC/100 WBC (Bld) [Ratio] 0.0 % Normal 0-0.5 [facility] Comment on above: Performed By: #### C BC, LIPASE, BMP, HEPATIC #### [address] Platelet mean volume (Bld) [Entitic vol] 8.3 fL Normal 6.3-10.7 [facility] Comment on above: Performed By: #### C BC, LIPASE, BMP, HEPATIC #### [address] Platelets (Bld) [#/Vol] 203 10*3/uL Normal 150-450 [facility] Comment on above: Performed By: #### C BC, LIPASE, BMP, HEPATIC #### [address] RBC (Bld) [#/Vol] 4.91 10*6/uL Normal 3.60-5.00 [facility] Comment on above: Performed By: #### C BC, LIPASE, BMP, HEPATIC #### [address] WBC (Bld) [#/Vol] 6.4 10*3/uL Normal 4.5-11.0 [facility] Comment on above: Performed By: #### C BC, LIPASE, BMP, HEPATIC #### [address] Creatinine and Glomerular fi ltration rate.predicted panel (S/P/Bld)Ordered By: Chucho Saldaña on 11-17-2021 Creatinine [Mass/Vol] 0.86 mg/dL 0.44-1.03 [facility] Dipstick and Microscopicon 1 Appearance (U) Clear Normal Clear [facility] Comment on above: Order Comment: Name Collection Type:: Clean-Voided Midstream Performed By: #### A DDONUAPLUS #### [facility] [address] [place] [address] [place] Bacteria,Urine None Seen Normal None Seen [facility] Comment on above: Order Comment: Name Collection Type:: Clean-Voided Midstream Performed By: #### A DDONUAPLUS #### [facility] [address] [place] [address] [place] Bilirubin,Urine Negative Normal Negative [facility] Comment on above: Order Comment: Name Collection Type:: Clean-Voided Midstream Performed By: #### A DDONUAPLUS #### [place] [address] [place] Color (U) Yellow Normal Yellow [facility] Comment on above: Order Comment: Name Collection Type:: Clean-Voided Midstream Performed By: #### A DDONUAPLUS #### [place] [address] [place] Glucose Ql (U) Normal Normal Normal [facility] Comment on above: Order Comment: Name Collection Type:: Clean-Voided Midstream Performed By: #### A DDONUAPLUS #### [facility] [address] [place] [address] [place] Hyaline Casts,Urine 0-8 Normal 0-8 [facility] Comment on above: Order Comment: Name Collection Type:: Clean-Voided Midstream Result Comment: PERF ORMED BY: [place] [address] PATHOLOGIST DOCUMENT MANAGEMENT TECHNICIAN LISA VERDE M.D. Performed By: #### A DDONUAPLUS #### [facility] [address] [place] [address] [place] Ketones Ql (U) Trace High Negative [facility] Comment on above: Order Comment: Name Collection Type:: Clean-Voided Midstream Performed By: #### A DDONUAPLUS #### [facility] [address] [place] [address] [place] Leukocyte esterase Test strip Ql (U) 1+ High Negative [facility] Comment on above: Order Comment: Name Collection Type:: Clean-Voided Midstream Performed By: #### A DDONUAPLUS #### [place] [address] [place] Nitrite,Urine Negative Normal Negative [facility] Comment on above: Order Comment: Name Collection Type:: Clean-Voided Midstream Performed By: #### A DDONUAPLUS #### [address] Occult Blood,Urine Trace High Negative [facility] Comment on above: Order Comment: Name Collection Type:: Clean-Voided Midstream Result Comment: PERF ORMED BY: [place] [address] PATHOLOGIST DOCUMENT MANAGEMENT TECHNICIAN LISA VERDE M.D. Performed By: #### A DDONUAPLUS #### [address] pH (U) 7.5 [pH] Normal 5.0-9.0 [facility] Comment on above: Order Comment: Name Collection Type:: Clean-Voided Midstream Performed By: #### A DDONUAPLUS #### [place] [address] [place] Protein,Urine Trace High Negative [facility] Comment on above: Order Comment: Name Collection Type:: Clean-Voided Midstream Performed By: #### A DDONUAPLUS #### [place] [address] [place] RBC LM.HPF (Urine sed) [#/Area] 0 /[HPF] Normal 0-4 [facility] Comment on above: Order Comment: Name Collection Type:: Clean-Voided Midstream Performed By: #### A DDONUAPLUS #### [place] [address] [place] Specificy [place],Urine 1.013 Normal 1.001-1.030 [facility] Comment on above: Order Comment: Name Collection Type:: Clean-Voided Midstream Performed By: #### A DDONUAPLUS #### [place] [address] [place] Squamous Epithelial Cell,Urine 0-1 Normal 0-2 [facility] Comment on above: Order Comment: Name Collection Type:: Clean-Voided Midstream Performed By: #### A DDONUAPLUS #### [facility] [address] Urobilinogen,Urine Normal Normal Normal [facility] Comment on above: Order Comment: Name Collection Type:: Clean-Voided Midstream Performed By: #### A DDONUAPLUS #### [facility] [address] WBC,Urine 3-4 Normal 0-4 [facility] Comment on above: Order Comment: Name Collection Type:: Clean-Voided Midstream Performed By: #### A DDONUAPLUS #### [facility] [address] Direct bilirubin measurement Ordered By: Chucho Saldaña on 11-17-2021 Bilirubin.direct [Mass/Vol] 0.1 mg/dL 0.0-0.4 [facility] Eosinophils Auto (Bld) [#/Vo l]Ordered By: Chucho Saldaña on 11-17-2021 Eosinophils (Bld) [#/Vol] 0.0 10*3/uL 0.0-0.45 [facility] Eosinophils/100 WBC Auto (Bl d)Ordered By: Chucho Saldaña on 11-17-2021 Eosinophils/100 WBC (Bld) 0.8 % . [facility] Erythrocyte distribution wid th Auto (RBC) [Ratio]Ordered By: hCucho Saldaña on 11-17-2021 Erythrocyte distribution width (RBC) [Ratio] 15.8 % 11.9-15.3 [facility] Estimated glomerular filtrat ion rate (GFR) non- AmericanOrdered By: Chucho Saldaña on 11-17-2021 GFR/1.73 sq M.predicted among non-blacks MDRD (S/P/Bld) [Vol rate/Area] > 60 mL/Min [facility] Globulin Calc (S) [Mass/Vol] Ordered By: Chucho Saldaña on 11-17-2021 Globulin (S) [Mass/Vol] 3.6 g/dL [facility] Hematocrit Auto (Bld) [Volum e fraction]Ordered By: Chucho Saldaña on 11-17-2021 Hematocrit (Bld) [Volume fraction] 41.7 % 34.0-46.4 [facility] Hepatic Panelon 11-17-2021 Albumin [Mass/Vol] 3.6 g/dL Normal 3.2-5.5 [facility] Comment on above: Performed By: #### C BC, LIPASE, BMP, HEPATIC #### [facility] [address] Albumin/Globulin [Mass ratio] 1.0 {ratio} Normal [facility] Comment on above: Performed By: #### C BC, LIPASE, BMP, HEPATIC #### [facility] [address] ALP [Catalytic activity/Vol] 121 U/L High - [facility] Comment on above: Performed By: #### C BC, LIPASE, BMP, HEPATIC #### [facility] [address] ALT [Catalytic activity/Vol] 25 U/L Normal [facility] Comment on above: Performed By: #### C BC, LIPASE, BMP, HEPATIC #### [facility] [address] AST [Catalytic activity/Vol] 34 U/L Normal [facility] Comment on above: Performed By: #### C BC, LIPASE, BMP, HEPATIC #### [facility] [address] Bilirubin [Mass/Vol] 0.7 mg/dL Normal 0.3-1.2 [facility] Comment on above: Performed By: #### C BC, LIPASE, BMP, HEPATIC #### [facility] [address] [place] [address] [place] Bilirubin,Indirect 0.6 mg/dL Normal [facility] Comment on above: Performed By: #### C BC, LIPASE, BMP, HEPATIC #### [facility] [address] Bilirubin.indirect [Mass/Vol] 0.1 mg/dL Normal 0.0-0.4 [facility] Comment on above: Performed By: #### C BC, LIPASE, BMP, HEPATIC #### [facility] [address] Globulin (S) [Mass/Vol] 3.6 g/dL Normal [facility] Comment on above: Performed By: #### C BC, LIPASE, BMP, HEPATIC #### [facility] [address] Protein [Mass/Vol] 7.2 g/dL Normal 6.1-7.9 [facility] Comment on above: Performed By: #### C BC, LIPASE, BMP, HEPATIC #### [facility] [address] Ketones Auto test strip (U) [Mass/Vol]Ordered By: Chucho Saldaña on 11-17-2021 Ketones (U) [Mass/Vol] Trace Negative [facility] Laboratory - Chemistry and C hemistry - challengeOrdered By: Chucho Saldaña on 11-17-2021 Lipase [Catalytic activity/Vol] 26.0 U/L [facility] Laboratory - Hematology and Cell countsOrdered By: Chucho Saldaña on 11-17-2021 Nucleated RBC/100 WBC (Bld) [Ratio] 0.0 % 0-0.5 [facility] Laboratory - UrinalysisOrder ed By: Chucho Saldaña on 11-17-2021 Hyaline casts LM Ql (Urine sed) 0-8 [LPF] 0-8 [facility] Lipaseon 11-17-2021 Lipase [Catalytic activity/Vol] 26.0 U/L Normal [facility] Comment on above: Result Comment: PERF ORMED BY: [place] [address] PATHOLOGIST DOCUMENT MANAGEMENT TECHNICIAN LISA VERDE M.D. Performed By: #### C BC, LIPASE, BMP, HEPATIC #### [facility] [address] [place] [address] Lymphocytes Auto (Bld) [#/Vo l]Ordered By: Chucho Saldaña on 11-17-2021 Lymphocytes (Bld) [#/Vol] 0.9 10*3/uL 1.00-4.8 [facility] Lymphocytes/100 WBC Auto (Bl d)Ordered By: Chucoh Saldaña on 11-17-2021 Lymphocytes/100 WBC (Bld) 14.4 % . [facility] MCH Auto (RBC) [Entitic mass ]Ordered By: Chucho Saldaña on 11-17-2021 MCH (RBC) [Entitic mass] 27.3 pg 24.7-34.3 [facility] MCHC Auto (RBC) [Mass/Vol]Or dered By: Chucho Saldaña on 11-17-2021 MCHC (RBC) [Mass/Vol] 32.2 g/dL 32.0-35.0 [facility] MCV Auto (RBC) [Entitic vol] Ordered By: Chucho Saldaña on 11-17-2021 MCV (RBC) [Entitic vol] 84.9 fL 80-100 F [facility] Monocytes Auto (Bld) [#/Vol] Ordered By: Chucho Saldaña on 11-17-2021 Monocytes (Bld) [#/Vol] 0.4 10*3/uL 0.0-0.8 [facility] Monocytes/100 WBC Auto (Bld) Ordered By: Chucho Saldaña on 11-17-2021 Monocytes/100 WBC (Bld) 7.0 % . [facility] Neutrophils Auto (Bld) [#/Vo l]Ordered By: Chucho Saldaña on 11-17-2021 Neutrophils (Bld) [#/Vol] 5.0 10*3/uL 1.8-7.7 [facility] Neutrophils/100 WBC Auto (Bl d)Ordered By: Chucho Saldaña on 11-17-2021 Neutrophils/100 WBC (Bld) 77.2 % . [facility] Nitrite Test strip Ql (U)Ord ered By: Chucho Saldaña on 11-17-2021 Nitrite Ql (U) Negative Negative [facility] No Panel InformationOrdered By: Chucho Saldaña on 11-17-2021 Estimated GFR () > 60 mL/Min [facility] Comment on above: GFR estimated refere nce range: According to KDOQI guidelines, <60 ml/min/1.73m2 is sufficient to diagnose a patient with chronic kidney disease. Pharmacy Creatinine Clearance (Chem 58.14 [facility] Platelet mean volume Auto (B ld) [Entitic vol]Ordered By: Chucho Saldaña on 11-17-2021 Platelet mean volume (Bld) [Entitic vol] 8.3 fL 6.3-10.7 [facility] Platelets Auto (Bld) [#/Vol] Ordered By: Chucho Saldaña on 11-17-2021 Platelets (Bld) [#/Vol] 203 10*3/uL 150-450 [facility] Protein Auto test strip (U) [Mass/Vol]Ordered By: Chucho Saldaña on 11-17-2021 Protein (U) [Mass/Vol] Trace mg/dL Negative F [facility] Protein [Mass/volume] in Ser um or PlasmaOrdered By: Chucho Saldaña on 11-17-2021 Protein [Mass/Vol] 7.2 g/dL 6.1-7.9 [facility] RBC Auto (Bld) [#/Vol]Ordere d By: Chucho Saldaña on 11-17-2021 RBC (Bld) [#/Vol] 4.91 10*6/uL 3.60-5.00 [facility] Serum or plasma alanine harris otransferase measurement without P-5'-P (enzymatic activiOrdered By: Chucho Saldaña on 11-17-2021 ALT No additional P-5'-P [Catalytic activity/Vol] 25 U/L [facility] Serum or plasma albumin/glob ulin mass ratioOrdered By: Chucho Saldaña on 11-17-2021 Albumin/Globulin [Mass ratio] 1.0 {ratio} [facility] Serum or plasma alkaline suzanne sphatase measurement (enzymatic activity/volume)Ordered By: Chucho Saldaña on 11-17-2021 ALP [Catalytic activity/Vol] 121 U/L 32-92 [facility] Serum or plasma anion gap de terminationOrdered By: Chucho Saldaña on 11-17-2021 Anion gap [Moles/Vol] 15.1 mmol/L 6.0-15.0 [facility] Serum or plasma aspartate am inotransferase measurement (enzymatic activity/volume)Ordered By: Chucho Saldaña on 11-17-2021 AST [Catalytic activity/Vol] 34 U/L 1042 [facility] Serum or plasma calcium jannet urement (mass/volume)Ordered By: Chucho Saldaña on 11-17-2021 Calcium [Mass/Vol] 10.0 mg/dL 8.2-10.2 [facility] Serum or plasma chloride yair surement (moles/volume)Ordered By: Chucho Saldaña on 11-17-2021 Chloride [Moles/Vol] 103 mmol/L 95-114 [facility] Serum or plasma glucose jannet urement (mass/volume)Ordered By: Chucho Saldaña on 11-17-2021 Glucose [Mass/Vol] 95 mg/dL 70-100 [facility] Comment on above: ADA recommended refe rence rangeRandom Glucose Reference Range is dependent on time and content of last meal. Glucose of more than 200 mg/dL in a nonstressed, ambulatory subject supports the diagnosis of Diabetes Mellitus. Serum or plasma non-glucuron idated bilirubin measurement (mass/volume)Ordered By: Chucho Saldaña on 11-17-2021 Bilirubin.indirect [Mass/Vol] 0.6 mg/dL [facility] Serum or plasma potassium me asurement (moles/volume)Ordered By: Chucho Saldaña on 11-17-2021 Potassium [Moles/Vol] 3.1 mmol/L 3.5-5.1 [facility] Serum or plasma sodium measu rement (moles/volume)Ordered By: Chucho Saldaña on 11-17-2021 Sodium [Moles/Vol] 142 mmol/L 136-146 [facility] Serum or plasma total biliru bin measurement (mass/volume)Ordered By: Chucho Saldaña on 11-17-2021 Bilirubin [Mass/Vol] 0.7 mg/dL 0.3-1.2 [facility] Serum or plasma total carbon dioxide measurement (moles/volume)Ordered By: Chucho Saldaña on 11-17-2021 CO2 [Moles/Vol] 27.0 mmol/L 22.0-30.0 [facility] Serum or plasma urea nitroge n measurement (mass/volume)Ordered By: Chucho Saldaña on 11-17-2021 Urea nitrogen [Mass/Vol] 9 mg/dL 9- [facility] Specific gravity Auto test s trip (U) [Rel density]Ordered By: Chucho Saldaña on 11-17-2021 Specific gravity (U) [Rel density] 1.013 1.001-1.030 [facility] Squamous epithelial cells de tection in urine sediment by light microscopyOrdered By: Chucho Saldaña on 11-17-2021 Epithelial cells.squamous LM Ql (Urine sed) 0-1 [HPF] 0-2 [facility] Urine bacteria detection by automated methodOrdered By: Chucho Saldaña on 11-17-2021 Bacteria Auto Ql (U) None seen None Seen [facility] Urine clarity by refractomet ry automatedOrdered By: Chucho Saldaña on 11-17-2021 Clarity Refractometry automated (U) Clear Clear [facility] Urine glucose measurement by automated test strip (mass/volume)Ordered By: Chucho Saldaña on 11-17-2021 Glucose Auto test strip (U) [Mass/Vol] Normal mg/dL Normal [facility] Urine hemoglobin detection b y automated test stripOrdered By: Chucho Saldaña on 11-17-2021 Hemoglobin Auto test strip Ql (U) Trace Negative [facility] Urine leukocyte esterase det ection by automated test stripOrdered By: Chucho Saldaña on 11-17-2021 Leukocyte esterase Auto test strip Ql (U) 1+ Negative [facility] Urobilinogen Auto test strip (U) [Mass/Vol]Ordered By: Chucho Saldaña on 11-17-2021 Urobilinogen (U) [Mass/Vol] Normal mg/dL Normal [facility] pH Auto test strip (U)Ordere d By: Chucho Saldaña on 11-17-2021 pH (U) 7.5 [pH] 5.0-9.0 [facility] CNPNon 11-03-2021 CNPN Telephone (RHODA) ---- DIANELYS WOMACK ([id number]) 1950 F Date Time Provider Department 11/03/21 TAZ TEJEDANE During your visit today, we recorded the following information about you: Joan JUSTIN 11/03/2021 3:[address] new egd/colonoscopy w MAC orders to be scheduled at Q3 Please contact patient's daughter(Shy) to schedule. # [phone] Keiko Hernandez RN 11/04/2021 9:51 AM Signed [...] [R19.7] Order(s):COLONOSCOP Y DIAGNOSTIC [GI11] Order #: [id number] FUTURE EGD DIAGNOSTIC [GI9] Order #: [id number] FUTURE Problem List As Of Date: 11/03/2021 (None) Encounter Status:Closed by TAZ TEJEDA on 11/05/21 Normal [facility] C diff Tox gens Stl Ql VERONICA+p robeon 10-31-2021 C. difficile toxin genes VERONICA+probe Ql (Stl) Negative Normal Negative for C. difficile toxin by PCR [facility] Comment on above: Order Comment: Speci men Type: STOOL SPECIMENOrdering Facility: [facility] Address: [address] [place] [address] Performed By: #### 5 4067-4 ####[facility] LABCLIA [id number] [place] [address] [place] Calprotectin Stl-mCnton - Calprotectin (Stl) [Mass/Mass] 205.7 mg/kg High 0-50 [facility] Comment on above: Order Comment: Speci men Type: STOOL SPECIMENOrdering Facility: [facility] Address: [address] [place] [address] Result Comment: INTE RPRETIVE INFORMATION: Calprotectin, Fecal <50.0 mg/kg : Normal 50.0-120.0 mg/kg: Borderline. Test should be re-evaluated in 4-6 wks. >120.0 mg/kg: Abnormal Performed By: #### 3 8445-3 ####[facility] LABCLIA [id number] [facility]ALK [id number] STATES OF [facility] CBC panel Auto (Bld)on 10-29 Erythrocyte distribution width (RBC) [Ratio] 15.2 % High 11.5-15.0 [facility] Comment on above: Order Comment: Speci men Type: BLOOD SPECIMENOrdering Facility: [facility] Address: [address] [place] [address] Performed By: #### 5 8410-2 ####[facility] LABCLIA [id number] [place] [address] Hematocrit (Bld) [Volume fraction] 42.2 % Normal 36.0-46.0 [facility] Comment on above: Order Comment: Speci men Type: BLOOD SPECIMENOrdering Facility: [facility] Address: [address] [place] [address] Performed By: #### 5 8410-2 ####[facility] LABIA [id number] [place] [address] Hemoglobin (Bld) [Mass/Vol] 13.2 g/dL Normal 11.5-15.5 [facility] Comment on above: Order Comment: Speci men Type: BLOOD SPECIMENOrdering Facility: [facility] Address: [address] [place] [address] Performed By: #### 5 8410-2 ####[facility] LABIA [id number] [place] [address] MCH (RBC) [Entitic mass] 27.2 pg Normal 26.0-34.0 [facility] Comment on above: Order Comment: Speci men Type: BLOOD SPECIMENOrdering Facility: [facility] Address: [address] [place] [address] Performed By: #### 5 8410-2 ####[facility] LABCLIA [id number] [place] [address] MCHC (RBC) [Mass/Vol] 31.3 g/dL Normal 30.5-36.0 [facility] Comment on above: Order Comment: Speci men Type: BLOOD SPECIMENOrdering Facility: [facility] Address: [address] [place] [address] Performed By: #### 5 8410-2 ####[facility] LABCLIA [id number] [place] [address] MCV (RBC) [Entitic vol] 86.8 fL Normal 80.0-100.0 C [facility] Comment on above: Order Comment: Speci men Type: BLOOD SPECIMENOrdering Facility: [facility] Address: [address] [place] [address] Performed By: #### 5 8410-2 ####[facility] LABIA [id number] [place] [address] Nucleated RBC (Bld) [#/Vol] 10*3/uL Normal <0.01 [facility] Comment on above: Order Comment: Speci men Type: BLOOD SPECIMENOrdering Facility: [facility] Address: [address] [place] [address] Performed By: #### 5 8410-2 ####[facility] LABCLIA [id number] [place] [address] Platelet mean volume (Bld) [Entitic vol] 10.0 fL Normal 9.0-12.7 [facility] Comment on above: Order Comment: Speci men Type: BLOOD SPECIMENOrdering Facility: [facility] Address: [address] [place] [address] Performed By: #### 5 8410-2 ####[facility] LABCLIA [id number] [place] [address] Platelets (Bld) [#/Vol] 187 10*3/uL Normal 150-400 [facility] Comment on above: Order Comment: Speci men Type: BLOOD SPECIMENOrdering Facility: [facility] Address: [address] [place] [address] Performed By: #### 5 8410-2 ####[facility] LABCLIA [id number] [place] [address] RBC (Bld) [#/Vol] 4.86 10*6/uL Normal 3.90-5.20 [facility] Comment on above: Order Comment: Speci men Type: BLOOD SPECIMENOrdering Facility: [facility] Address: [address] [place] [address] Performed By: #### 5 8410-2 ####[facility] LABCLIA [id number] [place] [address] WBC (Bld) [#/Vol] 8.51 10*3/uL Normal 3.70-11.00 [facility] Comment on above: Order Comment: Speci men Type: BLOOD SPECIMENOrdering Facility: [facility] Address: [address] [place] [address] Performed By: #### 5 8410-2 ####[facility] LABCLIA [id number] [place] [address] CELIAC SCREENon 10-29-2021 GLIAD DEAMIDATED IGA QUAL Negative Normal Negative, Test not Indicated [facility] Comment on above: Order Comment: Speci men Type: BLOOD SPECIMENOrdering Facility: [facility] Address: [address] [place] [address] Result Comment: This is used as an aid in diagnosis of celiac disease. Clinical correlation is required. The following results were obtained with an [employer] QUANTA Lite Gliadin IgA BRIANA Gliadin. Gliadin IgA values obtained with different manufacturers' assay methods may not be used interchangeably. The magnitude of the reported IgA levels cannot be correlated to an endpoint titer. Performed By: #### L [id number] ####[facility] LABCLIA [id number] [address] [place] Gliadin peptide IgA Qn (S) 4 Units Normal <20 [facility] Comment on above: Order Comment: Magnus montoya Type: BLOOD SPECIMENOrdering Facility: [facility] Address: [address] [place] [address] Performed By: #### L [id number] ####[facility] LABCLIA [id number] [address] [place] INTERPRETATION No serological evidence of celiac disease, however, if celiac disease is clinically suspected and patient is not on gluten-free diet, histological diagnosis may be considered. HLA testing may help with risk assessment. Normal [facility] Comment on above: Order Comment: Magnus montoya Type: BLOOD SPECIMENOrdering Facility: [facility] Address: [address] [place] [address] Performed By: #### L [id number] ####[facility] LABIA [id number] [address] TRANSGLUTAMINASE IGA QUAL Negative Normal Negative, Test not Indicated [facility] Comment on above: Order Comment: Magnsu montoya Type: BLOOD SPECIMENOrdering Facility: [facility] Address: [address] [place] [address] Result Comment: The following results were obtained with the [employer] QAUNTA Lite h-tTG IgA BRIANA. h-tTG IgA values obtained with different manufacturers' assay methods may not be used interchangeable. The magnitude of the reported IgA levels cannot be correlated to an endpoint titer. This is used as an aid in diagnosis of celiac disease. Clinical correlation is required. Performed By: #### L [id number] ####[facility] LABCLIA [id number] [address] [place] tTG IgA Qn (S) 8 Units Normal <20 [facility] Comment on above: Order Comment: Magnus montoya Type: BLOOD SPECIMENOrdering Facility: [facility] Address: [address] [place] [address] Performed By: #### L [id number] ####[facility] LABCLIA [id number] [facility]ITAL[facility] [place] [address] [address] [facility] [place] Comprehensive metabolic 2000 panelon 10-29-2021 Albumin [Mass/Vol] 4.0 g/dL Normal 3.9-4.9 [facility] Comment on above: Order Comment: Speci men Type: BLOOD SPECIMENOrdering Facility: [facility] Address: [address] [place] [address] Performed By: #### 2 4323-8 ####[facility] LABCLIA [id number] [place] [address] ALP [Catalytic activity/Vol] 124 U/L High 34-123 [facility] Comment on above: Order Comment: Speci men Type: BLOOD SPECIMENOrdering Facility: [facility] Address: [address] [place] [address] Performed By: #### 2 4323-8 ####[facility] LABCLIA [id number] [place] [address] ALT [Catalytic activity/Vol] 23 U/L Normal 7-38 [facility] Comment on above: Order Comment: Speci men Type: BLOOD SPECIMENOrdering Facility: [facility] Address: [address] [place] [address] Performed By: #### 2 4323-8 ####[facility] LABCLIA [id number] [place] [address] Anion gap [Moles/Vol] 9 mmol/L Normal 9-18 [facility] Comment on above: Order Comment: Speci men Type: BLOOD SPECIMENOrdering Facility: [facility] Address: [address] [place] [address] Performed By: #### 2 4323-8 ####[facility] LABCLIA [id number] [place] [address] AST [Catalytic activity/Vol] 37 U/L High 13-35 [facility] Comment on above: Order Comment: Speci men Type: BLOOD SPECIMENOrdering Facility: [facility] Address: [address] [place] [address] Performed By: #### 2 4323-8 ####[facility] LABCLIA [id number] [place] [address] Bilirubin [Mass/Vol] 0.5 mg/dL Normal 0.2-1.3 [facility] Comment on above: Order Comment: Speci men Type: BLOOD SPECIMENOrdering Facility: [facility] Address: [address] [place] [address] Performed By: #### 2 4323-8 ####[facility] LABCLIA [id number] [place] [address] Calcium [Mass/Vol] 10.0 mg/dL Normal 8.5-10.2 [facility] Comment on above: Order Comment: Speci men Type: BLOOD SPECIMENOrdering Facility: [facility] Address: [address] [place] [address] Performed By: #### 2 4323-8 ####[facility] LABCLIA [id number] [place] [address] Chloride [Moles/Vol] 105 mmol/L Normal 97-105 [facility] Comment on above: Order Comment: Speci men Type: BLOOD SPECIMENOrdering Facility: [facility] Address: [address] [place], [place] [address] Performed By: #### 2 4323-8 ####[facility] LABCLIA [id number] [place] [address] CO2 [Moles/Vol] 29 mmol/L Normal 22-30 [facility] Comment on above: Order Comment: Speci men Type: BLOOD SPECIMENOrdering Facility: [facility] Address: [address] [place] [address] Performed By: #### 2 4323-8 ####[facility] LABCLIA [id number] [place] [address] Creatinine [Mass/Vol] 1.17 mg/dL High 0.58-0.96 [facility] Comment on above: Order Comment: Magnus montoya Type: BLOOD SPECIMENOrdering Facility: [facility] Address: [address] [place] [address] Performed By: #### 2 4323-8 ####[facility] LABCLIA [id number] [place] [address] ESTIMATED GLOMERULAR FILTRATION RATE 50 mL/min/1.73m??? Low >=60 [facility] Comment on above: Order Comment: Magnus montoya Type: BLOOD SPECIMENOrdering Facility: [facility] Address: [address] [place] [address] Result Comment: Hortencia mated Glomerular Filtration Rate [...] actual GFR. Performed By: #### 2 4323-8 ####[facility] LABCLIA [id number] [place] [address] Glucose [Mass/Vol] 97 mg/dL Normal 74-99 [facility] Comment on above: Order Comment: Magnus montoya Type: BLOOD SPECIMENOrdering Facility: [facility] Address: [address] [place] [address] Result Comment: The [place] Diabetes Association (ADA) provides guidance for cutoff [...] Standards of Medical Care in Diabetes 2016, [place] Diabetes Association. Diabetes Care. 2016.39(Suppl 1). Performed By: #### 2 4323-8 ####[facility] LABCLIA [id number] [place] [address] Potassium [Moles/Vol] 3.4 mmol/L Low 3.7-5.1 [facility] Comment on above: Order Comment: Speci men Type: BLOOD SPECIMENOrdering Facility: [facility] Address: [address] [place] [address] Performed By: #### 2 4323-8 ####[facility] LABCLIA [id number] [place] [address] Protein [Mass/Vol] 6.9 g/dL Normal 6.3-8.0 [facility] Comment on above: Order Comment: Speci men Type: BLOOD SPECIMENOrdering Facility: [facility] Address: [address] [place] [address] Performed By: #### 2 4323-8 ####[facility] LABCLIA [id number] [place] [address] Sodium [Moles/Vol] 143 mmol/L Normal 136-144 [facility] Comment on above: Order Comment: Speci men Type: BLOOD SPECIMENOrdering Facility: [facility] Address: [address] [address] Performed By: #### 2 4323-8 ####[facility] LABCLIA [id number] [place] [address] Urea nitrogen [Mass/Vol] 19 mg/dL Normal 7-21 [facility] Comment on above: Order Comment: Speci men Type: BLOOD SPECIMENOrdering Facility: [facility] Address: [address] [address] Performed By: #### 2 4323-8 ####[facility] LABCLIA [id number] [place] [address] IgA SerPl-mCncon 10-29-2021 IgA [Mass/Vol] 343 mg/dL Normal 70-400 [facility] Comment on above: Order Comment: Speci men Type: BLOOD SPECIMENOrdering Facility: [facility] Address: [address] [place] [address] Performed By: #### 2 458-8 ####[facility] LABCLIA [id number] [place] [address] [place] TSH SerPl-aCncon 10-29-2021 TSH Qn 0.048 m[IU]/L Low 0.270-4.200 [facility] Comment on above: Order Comment: Speci men Type: BLOOD SPECIMENOrdering Facility: [facility] Address: [address] [place] [address] Performed By: #### 3 016-3 ####[facility] LABCLIA [id number] [place] [address] [place] CARDIAC AMAN ADMITon 022 CK [Catalytic activity/Vol] 69 U/L Normal 26-192 [facility] Comment on above: Performed By: #### C JAKUB MOLINA #### [facility] [address] [address] [address] Sheila Mittal CK.MB [Mass/Vol] 2.36 ng/mL Normal <=3.60 [facility] Comment on above: Performed By: #### C JAKUB MOLINA #### [facility] [address] [place], [place] [address] Dr. Sheila Mittal HSTROP 9.5 pg/mL Normal 4.0-51.3 [facility] Comment on above: Result Comment: CUT- OFF POINTS HAVE BEEN ESTABLISHED BASED ON THE FOURTH UNIVERSAL DEFINITIONS OF MYOCARDIAL INFARCTION. THE UPPER REFERENCE LIMIT (URL) OF TROPONIN, DEFINED THE 99TH PERCENTILE OF cTnI DISTRIBUTION IN A REFERENCE POPULATION, HAS BEEN CONFIRMED THE DECISION THRESHOLD FOR WI DIAGNOSIS. Performed By: #### C JAKUB MOLINA #### [facility] [address] [address] [address] Sheila Mittal TEMO 97 ng/mL Critically high 9-82 [facility] Comment on above: Performed By: #### C MP, CMADM #### [facility] [address] [address] [address] Sheila Mittal CBC AUTO DIFFon 10-18-2021 BASO # 0.0 103/ul Normal 0.0-0.1 [facility] Comment on above: Performed By: #### C BC #### [facility] [address] [place] [address] Dr. Sheila Mittal Basophils/100 WBC (Bld) 0.4 % Normal 0.2-2.0 [facility] Comment on above: Performed By: #### C BC #### [facility] [address] [place] [address] Dr. Sheila Mittal EO # 0.1 103/ul Normal 0.0-0.7 [facility] Comment on above: Performed By: #### C BC #### [facility] [address] [place] [address] Dr. Sheila Mittal Eosinophils/100 WBC (Bld) 1.0 % Normal 0.9-7.0 [facility] Comment on above: Performed By: #### C BC #### [facility] [address] [place] [address] Dr. Sheila Mittal Erythrocyte distribution width (RBC) [Ratio] 15.0 % Normal 11.0-15.0 [facility] Comment on above: Performed By: #### C BC #### [facility] [address] [place] [address] Dr. Sheila Mittal Hematocrit (Bld) [Volume fraction] 45.0 % Normal 36.0-48.0 [facility] Comment on above: Performed By: #### C BC #### [facility] [address] [place] [address] Dr. Sheila Mittal Hemoglobin (Bld) [Mass/Vol] 14.3 g/dL Normal 12.0-16.0 [facility] Comment on above: Performed By: #### C BC #### [facility] [address] [place] [address] Dr. Sheila Mittal IG # 0.04 10e3/ul Critically high 0.00-0.03 [facility] Comment on above: Performed By: #### C BC #### [facility] [address] [place] [address] Dr. Sheila Mittal IG % 0.4 % Normal 0.0-0.5 [facility] Comment on above: Performed By: #### C BC #### [facility] [address] [place] [address] Dr. Sheila Mittal LYMPH # 1.5 103/ul Normal 1.2-3.8 [facility] Comment on above: Performed By: #### C BC #### [facility] [address] [place] [address] Dr. Sheila Mittal Lymphocytes/100 WBC (Bld) 17.0 % Critically low 20.5-60.0 [facility] Comment on above: Performed By: #### C BC #### [facility] [address] [place] [address] Dr. Sheila Mittal MANUAL DIFF REQ NO Normal [facility] Comment on above: Performed By: #### C BC #### [facility] [address] [place] [address] Dr. Sheila Mittal MCH (RBC) [Entitic mass] 27.3 pg Normal 26.7-34.0 [facility] Comment on above: Performed By: #### C BC #### [facility] [address] [place] [address] Dr. Sheila Mittal MCHC (RBC) [Mass/Vol] 31.8 g/dL Normal 29.9-35.2 [facility] Comment on above: Performed By: #### C BC #### [facility] [address] [place] [address] Dr. Sheila Mittal MCV (RBC) [Entitic vol] 85.9 fL Normal 81.0-99.0 [facility] Comment on above: Performed By: #### C BC #### [facility] [address] [place] [address] Dr. Sheila Mittal MONO # 0.6 103/ul Normal 0.3-0.8 [facility] Comment on above: Performed By: #### C BC #### [facility] [address] [address] [address] Sheila Mittal Monocytes/100 WBC (Bld) 6.6 % Normal 1.7-12.0 [facility] Comment on above: Performed By: #### C BC #### [facility] [address] [place] [address] Dr. Sheila Mittal NEUT # 6.8 103/ul Critically high 1.4-6.5 [facility] Comment on above: Performed By: #### C BC #### [facility] [address] [place] [address] Dr. Sheila Mittal Neutrophils/100 WBC (Bld) 74.6 % Normal 43.0-75.0 [facility] Comment on above: Performed By: #### C BC #### [facility] [address] [place] [address] Dr. Sheila Mittal Platelet mean volume (Bld) [Entitic vol] 9.3 fL Critically low 9.5-13.5 [facility] Comment on above: Performed By: #### C BC #### [facility] [address] [place] [address] Dr. Sheila Mittal PLT 231 103/ul Normal 150-450 [facility] Comment on above: Performed By: #### C BC #### [facility] [address] [place] [address] Dr. Sheila Mittal RBC 5.24 106/ul Normal 4.20-5.40 [facility] Comment on above: Performed By: #### C BC #### [facility] [address] [place] [address] Dr. Sheila Mittal WBC 9.1 103/ul Normal 4.0-11.0 [facility] Comment on above: Performed By: #### C BC #### [facility] [address] [place] [address] Dr. Sheila Mittal ER URINE PROFILEon 2 Bilirubin Ql (U) SMALL Abnormal NEGATIVE [facility] Comment on above: Performed By: #### Leonardo SLADE UMICRO #### [facility] [address] [place] [address] Dr. Sheila Mittal Clarity (U) SL CLOUDY Abnormal CLEAR [facility] Comment on above: Performed By: #### Leonardo SLADE UMICRO #### [facility] [address] [place] [address] Dr. Sheila Mittal Color (U) YELLOW Normal YELLOW [facility] Comment on above: Performed By: #### Leonardo SLADE UMICRO #### [facility] [address] [place] [address] Dr. Sheila ANGULO A micrscopic examination will be performed if indicated. Normal [facility] Comment on above: Performed By: #### Leonardo SLADE UMICRO #### [facility] [address] [place] [address] Dr. Sheila Mittal Glucose Ql (U) Negative Normal NEGATIVE [facility] Comment on above: Performed By: #### Leonardo SLADE UMICRO #### [facility] [address] [place] [address] Dr. Sheila Mittal Hemoglobin Ql (U) Negative Normal NEGATIVE [facility] Comment on above: Performed By: #### Leonardo SLADE UMICRO #### [facility] [address] [place] [address] Dr. Sheila Mittal Ketones Ql (U) TRACE Abnormal NEGATIVE [facility] Comment on above: Performed By: #### Leonardo SLADE UMICRO #### [facility] [address] [place] [address] Dr. Sheila Mittal LEUKOCYTES TRACE Abnormal NEGATIVE [facility] Comment on above: Performed By: #### Leonardo SLADE UMICRO #### [facility] [address] [place] [address] Dr. Sheila Mittal Nitrite Ql (U) Negative Normal NEGATIVE [facility] Comment on above: Performed By: #### E RUR, UMICRO #### [facility] [address] [place] [address] Dr. Sheila Mittal pH (U) 7.0 [pH] Normal 5-9 [facility] Comment on above: Performed By: #### Leonardo SLADE, UMICRO #### [facility] [address] [place] [address] Dr. Sheila Mittal Protein (U) [Mass/Vol] 100 mg/dL Abnormal NEGAT PATRIZIA/ TRACE [facility] Comment on above: Performed By: #### E BERLIN, UMICRO #### [facility] [address] [place] [address] Dr. Sheila Mittal SPEC GRAVITY 1.015 Normal 1.005-<=1.02 5 [facility] Comment on above: Performed By: #### Leonardo SLADE, UMICRO #### [facility] [address] [place] [address] Dr. Sheila Mittal UR MICRO IND INDICATED Normal [facility] Comment on above: Performed By: #### Leonardo SLADE, UMICRO #### [facility] [address] [place] [address] Dr. Sheila Mittal Urobilinogen Qn (U) 0.2 {Brooke'U}/dL Normal 0.2 - 1. 0 [facility] Comment on above: Performed By: #### Leonardo SLADE, UMICRO #### [facility] [address] [place] [address] Dr. Sheila Mittal LACTATE/LACTIC ACIDon 2021 Lactate [Moles/Vol] 1.9 mmol/L Normal 0.4-1.9 [facility] Comment on above: Performed By: #### L ACT #### [facility] [address] [place] [address] Dr. Sheila Mittal PROF 14(COMP METB)on 022 Albumin [Mass/Vol] 3.8 g/dL Normal 3.4-5.0 [facility] Comment on above: Performed By: #### C MP, CMADM #### [facility] [address] [place] [address] Dr. Sheila Mittal Albumin/Globulin [Mass ratio] 0.8 {ratio} Normal [facility] Comment on above: Performed By: #### C TRACY, JAKUB #### [facility] [address] [address] [address] Sheila Mittal ALP [Catalytic activity/Vol] 155 U/L Critically high 46-116 [facility] Comment on above: Performed By: #### C TRACY, TULIODM #### [facility] [address] [address] [address] Sheila Mittal ALT [Catalytic activity/Vol] 37 U/L Normal 14-59 [facility] Comment on above: Performed By: #### C TRACY, JAKUB #### [facility] [address] [place] [address] Dr. Sheila Mittal Anion gap [Moles/Vol] 13.5 mmol/L Normal [facility] Comment on above: Performed By: #### C JAKUB MOLINA #### [facility] [address] [place] [address] Dr. Sheila Mittal AST [Catalytic activity/Vol] 42 U/L Critically high 15-37 [facility] Comment on above: Performed By: #### C JAKUB MOLINA #### [facility] [address] [place] [address] Dr. Sheila Mittal Bilirubin [Mass/Vol] 0.7 mg/dL Normal 0.2-1.0 [facility] Comment on above: Performed By: #### C TRACY, JAKUB #### [facility] [address] [place] [address] Dr. Sheila Mittal Calcium [Mass/Vol] 10.0 mg/dL Normal 8.5-10.1 [facility] Comment on above: Performed By: #### C JAKUB MOLINA #### [facility] [address] [place] [address] Dr. Sheila Mittal Chloride [Moles/Vol] 103 mmol/L Normal 98-107 [facility] Comment on above: Performed By: #### C JAKUB MOLINA #### [facility] [address] [place] [address] Dr. Sheila Mittal CO2 [Moles/Vol] 29.7 mmol/L Normal 21.0-32.0 [facility] Comment on above: Performed By: #### C TRACY, CMADM #### [facility] [address] [address] [address] Sheila Mittal Creatinine [Mass/Vol] 1.06 mg/dL Critically high 0.55-1.02 [facility] Comment on above: Performed By: #### C TRACY, CMADM #### [facility] [address] [address] [address] Sheila Mittal EGFR-AF PARAGUAYAN >60 Normal >=60 [facility] Comment on above: Performed By: #### C TRACY, CMADM #### [facility] [address] [address] [address] Sheila Mittal EGFR-NON AF PARAGUAYAN 51 mL/min/1.73m2 Critically low >=60 [facility] Comment on above: Performed By: #### C TRACY, CMADM #### [facility] [address] [address] [address] Sheila Mittal Globulin (S) [Mass/Vol] 4.5 g/dL Normal [facility] Comment on above: Performed By: #### C TRACY, CMADM #### [facility] [address] [address] [address] Sheila Mittal Glucose [Mass/Vol] 104 mg/dL Normal 74-106 [facility] Comment on above: Performed By: #### C TRACY, CMADM #### [facility] [address] [address] [address] Sheila Mittal Potassium [Moles/Vol] 3.2 mmol/L Critically low 3.5-5.1 [facility] Comment on above: Performed By: #### C TRACY, CMADM #### [facility] [address] [address] [address] Sheila Mittal Protein [Mass/Vol] 8.3 g/dL Critically high 6.4-8.2 [facility] Comment on above: Performed By: #### C TRACY, CMADM #### [facility] [address] [address] [address] Sheila Mittal Sodium [Moles/Vol] 143 mmol/L Normal 136-145 [facility] Comment on above: Performed By: #### C TRACY, CMADM #### [facility] [address] [address] [address] Sheila Mittal Urea nitrogen [Mass/Vol] 10.0 mg/dL Normal 7.0-18.0 [facility] Comment on above: Performed By: #### C TRACY, CMADM #### [facility] [address] [address] [address] Sheila Mittal Urea nitrogen/Creatinine [Mass ratio] 9.4 mg/mg Normal [facility] Comment on above: Performed By: #### C TRACY, CMADM #### [facility] [address] [address] [address] Sheila Mittal URINE MICROSCOPIC ONLYon BACTERIA NONE SEEN Normal NONE SEEN [facility] Comment on above: Performed By: #### Leonardo SLADE UMICRO ####[facility] [address] [address]Dr. Sheila Mittal Bacteria identified Cx Nom (U) NOT INDICATED Normal [facility] Comment on above: Performed By: #### Leonardo SLADE UMICRO ####[facility] [address] [address]Dr. Sheila Mittal CAST SEEN Abnormal NONE SEEN [facility] Comment on above: Performed By: #### Leonardo SLADE UMICRO ####[facility] [address] [address]Dr. Sheila Mittal Crystals LM Nom (Urine sed) NONE SEEN Normal NONE SEEN [facility] Comment on above: Performed By: #### Leonardo SLADE UMICRO ####[facility] [address] [address]Dr. Sheila Mittal Epithelial cells LM Ql (Urine sed) FEW Abnormal NONE SEEN /RARE [facility] Comment on above: Performed By: #### Leonardo SLADE UMICRO ####[facility] [address] [place], [place] [address]Yf. Sheila Mittal MUCOUS NONE SEEN Normal NONE SEEN [facility] Comment on above: Performed By: #### OZIEL KULKARNI ####[facility] [address] [place], [place] [address]Qf. Sheila Mittal RBC NONE SEEN Abnormal 0-2 [facility] Comment on above: Performed By: #### OZIEL KULKARNI ####[facility] [address] [place], [place] [address]Jj. Sheila Mittal WBC 0-2 Abnormal NONE SEEN [facility] Comment on above: Performed By: #### OZIEL KULKARNI ####[facility] [address] [place], [place] [address]Im. Sheila Mittal XR CHEST 1 Von 10-18-2021 [...] DELISA EVANS Date: 2021-10-18 16:27 Normal [facility] Basic Metabolic Panelon 06-0 Calcium [Mass/Vol] 9.6 mg/dL Normal 8.2-10.2 [facility] Comment on above: Performed By: #### U YUDI, PTH, PHOS, BMP, [id number] #### [facility] [address] Chloride [Moles/Vol] 102 mmol/L Normal 95-114 [facility] Comment on above: Performed By: #### U YUDI, PTH, PHOS, BMP, [id number] #### [facility] [address] [address] [facility] CO2 [Moles/Vol] 24.2 mmol/L Normal 22.0-30.0 [facility] Comment on above: Performed By: #### U YUDI, PTH, PHOS, BMP, [id number] #### [facility] [address] Creatinine [Mass/Vol] 1.01 mg/dL Normal 0.44-1.03 [facility] Comment on above: Performed By: #### U YUDI, PTH, PHOS, BMP, [id number] #### [address] Estimated GFR ( [place] > 60 Normal [facility] Comment on above: Result Comment: GFR estimated reference range: According to KDOQI guidelines, <60 ml/min/1.73m2 is sufficient to diagnose a patient with chronic kidney disease. Performed By: #### U YUDI, PTH, PHOS, BMP, [id number] #### [address] Estimated GFR (Non- Am 54 [facility] Comment on above: Performed By: #### U YUDI, PTH, PHOS, BMP, [id number] #### [address] Glucose [Mass/Vol] 95 mg/dL Normal 70-100 [facility] Comment on above: Result Comment: [place] Glucose Reference Range is dependent on time and content of last meal. Glucose of more than 200 mg/dL in a nonstressed, ambulatory subject supports the diagnosis of Diabetes Mellitus. ADA recommended reference range Performed By: #### U YUDI, PTH, PHOS, BMP, [id number] #### [address] Potassium [Moles/Vol] 3.2 mmol/L Low 3.5-5.1 [facility] Comment on above: Performed By: #### U YUDI, PTH, PHOS, BMP, [id number] #### [address] Sodium [Moles/Vol] 138 mmol/L Normal 136-146 [facility] Comment on above: Performed By: #### U YUDI, PTH, PHOS, BMP, [id number] #### [address] Urea nitrogen [Mass/Vol] 16 mg/dL Normal 9-23 [facility] Comment on above: Performed By: #### U YUDI, PTH, PHOS, BMP, [id number] #### [facility] [address] [place] [address] [facility] Creatinine and Glomerular fi ltration rate.predicted panel (S/P/Bld)Ordered By: Daniel Ma on 07-15-2021 Creatinine [Mass/Vol] 1.01 mg/dL 0.44-1.03 [facility] Estimated glomerular filtrat ion rate (GFR) non- AmericanOrdered By: Daniel Ma on 07-15-2021 GFR/1.73 sq M.predicted among non-blacks MDRD (S/P/Bld) [Vol rate/Area] 54 mL/Min [facility] No Panel InformationOrdered By: Daniel Ma on 07-15-2021 25-Hydroxy Vitamin D Total 42.9 ng/mL 30-100 [facility] Comment on above: VITAMIN D STATUS 25( [place])VITAMIN D RANGE (ng/mL) Deficient <20 Insufficient 20 to <30 Sufficient 30 to 100 Reference: Jenniffer MF,Neal NC, Mary FERGUSON, et al. Evaluation,treatment, and prevention of vitamin D deficiency; an Endocrine Society clinical practice guideline. JCEM. 2010; 96(7):1911-30. Estimated GFR () > 60 mL/Min [facility] Comment on above: GFR estimated refere nce range: According to KDOQI guidelines, <60 ml/min/1.73m2 is sufficient to diagnose a patient with chronic kidney disease. Pharmacy Creatinine Clearance (Chem N/A [facility] No Panel Informationon 07-15 9.6\S\9.6 Normal 8.2-10.2 -[facility] 3 DO Work Phone: 24.2\S\24.2 Normal 22.0-30.0 -[facility] 3 DO Work Phone: 102\S\102 Normal 95-114 [address] [address] DO Work Phone: 3.2\S\3.2 Normal 2.5-4.6 [place] [address] DO Work Phone: 138\S\138 Normal 136-146 [address] [place] [address] DO Work Phone: > 60 Normal [place] [address] DO Work Phone: Comment on above: GFR estimated refere nce range: According to KDOQI guidelines, <60 ml/min/1.73m2 is sufficient to diagnose a patient with chronic kidney disease. 54\S\54 Normal [place] [address] DO Work Phone: 1.01\S\1.01 Normal 0.44-1.03 [place] [address] DO Work Phone: 16\S\16 Normal 9-23 [place] [address] DO Work Phone: 95\S\95 Normal 70-100 [place] [address] DO Work Phone: Comment on above: Random Glucose Refer ence Range is dependent on time and content of last meal. Glucose of more than 200 mg/dL in a nonstressed, ambulatory subject supports the diagnosis of Diabetes Mellitus. ADA recommended reference range 4.7\S\4.7 Normal 2.6-7.2 [place] [address] DO Work Phone: 42.9\S\42.9 Normal 30-100 [place] [address] DO Work Phone: Comment on above: VITAMIN D STATUS 25( [place])VITAMIN D RANGE (ng/mL) Deficient <20 Insufficient 20 to <30 Sufficient 30 to 100 Reference: Jenniffer MF,Neal NC, Mary FERGUSON, et al. Evaluation,treatment, and prevention of vitamin D deficiency; an Endocrine Society clinical practice guideline. JCEM. 2010; 96(7):1911-30. 48.8\S\48.8 Normal - -[facility] 3 DO Work Phone: Comment on above: PERFORMED BY:[facility] [place] [phone] MEDICAL DIRECTORLISA VERDE M.D. Parathyroid Hormone Intacton 07-15-2021 Parathyroid Hormone Intact 48.8 pg/mL Normal [facility] Comment on above: Result Comment: PERF ORMED BY: [facility] [address] [id number] PATHOLOGIST DOCUMENT MANAGEMENT TECHNICIAN LISA VERDE M.D. Performed By: #### C BC, LIPASE, BMP, HEPATIC #### [facility] [address] [address] [facility] Phosphate [Mass/volume] in S wero or PlasmaOrdered By: Daniel Ma on 07-15-2021 Phosphate [Mass/Vol] 3.2 mg/dL 2.5-4.6 [facility] Phosphoruson 07-15-2021 Phosphate [Mass/Vol] 3.2 mg/dL Normal 2.5-4.6 [facility] Comment on above: Performed By: #### U YUDI, PTH, PHOS, BMP, [id number] #### [facility] [address] [address] [place] Serum or plasma calcium jannet urement (mass/volume)Ordered By: Daniel Ma on 07-15-2021 Calcium [Mass/Vol] 9.6 mg/dL 8.2-10.2 [facility] Serum or plasma chloride yair surement (moles/volume)Ordered By: Daniel Ma on 07-15-2021 Chloride [Moles/Vol] 102 mmol/L 95-114 [facility] Serum or plasma glucose jannet urement (mass/volume)Ordered By: Daniel Ma on 07-15-2021 Glucose [Mass/Vol] 95 mg/dL 70-100 [facility] Comment on above: ADA recommended refe rence range Random Glucose Reference Range is dependent on time and content of last meal. Glucose of more than 200 mg/dL in a nonstressed, ambulatory subject supports the diagnosis of Diabetes Mellitus. Serum or plasma intact parat hyroid hormone measurement (mass/volume)Ordered By: Danile Ma on 07-15-2021 Parathyrin.intact [Mass/Vol] 48.8 pg/mL [facility] Serum or plasma potassium me asurement (moles/volume)Ordered By: Daniel Ma on 07-15-2021 Potassium [Moles/Vol] 3.2 mmol/L 3.5-5.1 [facility] Serum or plasma sodium measu rement (moles/volume)Ordered By: Daniel Ma on 07-15-2021 Sodium [Moles/Vol] 138 mmol/L 136-146 [facility] Serum or plasma total carbon dioxide measurement (moles/volume)Ordered By: Daniel Ma on 07-15-2021 CO2 [Moles/Vol] 24.2 mmol/L 22.0-30.0 [facility] Serum or plasma urea nitroge n measurement (mass/volume)Ordered By: Daniel Ma on 07-15-2021 Urea nitrogen [Mass/Vol] 16 mg/dL 11-05 [facility] Serum or plasma uric acid me asurement (mass/volume)Ordered By: Daniel Ma on 07-15-2021 Urate [Mass/Vol] 4.7 mg/dL 2.6-7.2 [facility] Uric Acidon 07-15-2021 Urate [Mass/Vol] 4.7 mg/dL Normal 2.6-7.2 [facility] Comment on above: Performed By: #### U YUDI, PTH, PHOS, BMP, [id number] #### [facility] [address] [place] [address] Vitamin D 25 Hydroxy Totalon 07-15-2021 Vitamin D 25 Hydroxy Total 42.9 ng/mL Normal 30-100 [facility] Comment on above: Result Comment: [place] MIN D STATUS 25([place])VITAMIN D RANGE (ng/mL) Deficient <20 Insufficient 20 to <30 Sufficient 30 to 100 Reference: Jenniffer MF,Neal NC, Mary FERGUSON, et al. Evaluation,treatment, and prevention of vitamin D deficiency; an Endocrine Society clinical practice guideline. JCEM. 2010; 96(7):1911-30. Performed By: #### C BC, LIPASE, BMP, HEPATIC #### [facility] [address] [address] [facility] US aortaon 06-14-2021 US aorta [facility] [address] [place] [address] [address] Ultrasound Report Signed Patient: Dianelys Womack MR#: [id number] 0 : 1950 Acct:[id number] Age/Sex: 70 / F ADM Date: 06/14/21 Loc: [facility] Room: Type: [facility] Attending Dr: Nick Acosta MD Ordering Provider: [...] Nick Acosta M.D.06/14/2021 10:56 AM Dictation Location: [place] [address] Tech: Hellen Haro Transcribed By: AMINA 06/14/21 1056 Dictated By: Nick Acosta MD 06/14/21 1055 Signed By: 06/14/21 1056 [facility] Tobacco Screening.on 022 Adult depression screening assessment No [facility] io [facility] 250 DO Work Phone: Fall risk assessment b) One or more falls in the last year [facility] 250 DO Work Phone: Tobacco use status [facility] b) No [facility] 250 DO Work Phone: Vital Signs Date Time Vital Sign Value Performing Clinician Facility 01-20-2023 10:47-0500 Body height 160 cm Daniel Ma MD Work Phone: [facility] 01-20-2023 10:47-0500 Body mass index (BMI) [Ratio] 29.76 kg/m2 Daniel Ma MD Work Phone: [facility] 01-20-2023 10:47-0500 Body weight 76.2 kg Daniel Ma MD Work Phone: [facility] 01-20-2023 10:47-0500 Diastolic blood pressure 79 mm[Hg] Daniel Ma MD Work Phone: [facility] 01-20-2023 10:47-0500 Heart rate 83 /min Daniel Ma MD Work Phone: [facility] 01-20-2023 10:47-0500 Systolic blood pressure 119 mm[Hg] Daniel Ma MD Work Phone: [facility] 11-21-2022 15:31-0400 Body height 160 cm Elinor Raman MD Work Phone: [facility] 11-21-2022 15:31-0400 Body mass index (BMI) [Ratio] 29.58 kg/m2 Elinor Raman MD Work Phone: [facility] 11-21-2022 15:31-0400 Body weight 75.75 kg Elinor Raman MD Work Phone: [facility] 11-21-2022 15:31-0400 Diastolic blood pressure 86 mm[Hg] Elinor Raman MD Work Phone: [facility] 11-21-2022 15:31-0400 Heart rate 82 /min Elinor Raman MD Work Phone: [facility] 11-21-2022 15:31-0400 Systolic blood pressure 112 mm[Hg] Elinor Raman MD Work Phone: [facility] 10-25-2022 11:30-0400 Heart rate 61 /min Kenton Kapadia MD Work Phone: [facility] 10-25-2022 11:30-0400 SaO2% (BldA) [Mass fraction] 97 % Kenton Kapadia MD Work Phone: [facility] 10-25-2022 11:29-0400 Diastolic blood pressure 82 mm[Hg] Kenton Kapadia MD Work Phone: [facility] 10-25-2022 11:29-0400 Systolic blood pressure 131 mm[Hg] Kenton Kapadia MD Work Phone: [facility] 10-25-2022 11:15-0400 Body temperature 98.1 [degF] Kenton Kapadia MD Work Phone: [facility] 10-25-2022 11:15-0400 Respiratory rate 18 /min Kenton Kapadia MD Work Phone: [facility] 10-25-2022 09:51-0400 Body height 160 cm Kenton Kapadia MD Work Phone: [facility] 10-25-2022 09:51-0400 Body weight 68.04 kg Kenton Kapadia MD Work Phone: [facility] 09-20-2022 12:51-0400 Body height 160.02 cm Monkia Lehman Work Phone: [address] Work Phone: 09-20-2022 12:51-0400 Body mass index (BMI) [Ratio] 29.23 kg/m2 Monika Lehman Work Phone: [address] Work Phone: 09-20-2022 12:51-0400 Body surface area Derived from formula 1.78 m2 Rugen M Fallon Work Phone: [address] Work Phone: 09-20-2022 12:51-0400 Body temperature 97.2 [degF] Rugen M Rocky Work Phone: [address] Work Phone: 09-20-2022 12:51-0400 Body weight 74.84 kg Rugen M Fallon Work Phone: [address] Work Phone: 09-20-2022 12:51-0400 Diastolic blood pressure 100 mm[Hg] Rugen M Fallon Work Phone: [address] Work Phone: 09-20-2022 12:51-0400 Heart rate 90 /min Rugen M Rocky Work Phone: [address] Work Phone: 09-20-2022 12:51-0400 Systolic blood pressure 156 mm[Hg] Rugen M Fallon Work Phone: [address] Work Phone: 05-04-2022 11:56-0400 Body height 160.02 cm Rugen M Rocky [facility] Work Phone: 05-04-2022 11:56-0400 Body mass index (BMI) [Ratio] 26.93 kg/m2 Rugen M Rocky Work Phone: [facility] 250 DO Work Phone: 05-04-2022 11:56-0400 Body surface area Derived from formula 1.72 m2 Rugen M Rocky Work Phone: [facility] 250 DO Work Phone: 05-04-2022 11:56-0400 Body weight 68.95 kg Rugpatricia [place] Fallon Work Phone: [facility] 250 DO Work Phone: 05-04-2022 11:56-0400 Diastolic blood pressure 70 mm[Hg] Rugen Padmini Fallon [facility]: [facility] DO Work Phone: 05-04-2022 11:56-0400 Heart rate 60 /min Rugen Padmini Fallon Work Phone: [facility] 250 DO Work Phone: 05-04-2022 11:56-0400 Systolic blood pressure 130 mm[Hg] Juanen Padmini Fallon Work Phone: [facility] 250 DO Work Phone: 03-22-2022 15:35-0500 Body height 160.02 cm Rugen Padmini Rocky Work Phone: [facility] 3 DO Work Phone: 03-22-2022 15:35-0500 Body mass index (BMI) [Ratio] 27.81 kg/m2 Rugen Padmini Fallon Work Phone: [facility] 3 DO Work Phone: 03-22-2022 15:35-0500 Body surface area Derived from formula 1.74 m2 Rugen Padmini Fallon Work Phone: [facility] 3 DO Work Phone: 03-22-2022 15:35-0500 Body temperature 97.1 [degF] Rugen Padmini Rocky Work Phone: [facility] 3 DO Work Phone: 03-22-2022 15:35-0500 Body weight 71.22 kg Rugen M Fallon Work Phone: [facility] 3 DO Work Phone: 03-22-2022 15:35-0500 Diastolic blood pressure 82 mm[Hg] Rugen M Rocky Work Phone: [facility] 3 DO Work Phone: 03-22-2022 15:35-0500 Heart rate 60 /min Rugen M Fallon Work Phone: [facility] 3 DO Work Phone: 03-22-2022 15:35-0500 Systolic blood pressure 130 mm[Hg] Rugen M Fallon Work Phone: [facility] 3 DO Work Phone: 02-24-2022 09:51-0500 Body height 160 cm Pacc 2 Work Phone: [facility] 02-24-2022 09:51-0500 Body temperature 97.2 [degF] Pacc 2 Work Phone: [facility] 02-24-2022 09:51-0500 Body weight 71.22 kg Pacc 2 Work Phone: [facility] 02-24-2022 09:51-0500 Diastolic blood pressure 87 mm[Hg] Pacc 2 Work Phone: [facility] 02-24-2022 09:51-0500 Heart rate 63 /min Pacc 2 Work Phone: [facility] 02-24-2022 09:51-0500 SaO2% (BldA) [Mass fraction] 99 % Pacc 2 Work Phone: [facility] 02-24-2022 09:51-0500 Systolic blood pressure 153 mm[Hg] Pacc 2 Work Phone: [facility] 01-12-2022 10:05-0500 Body height 157.5 cm BROOKE Vera MD Work Phone: [facility] 01-12-2022 10:05-0500 Body temperature 97.39 [degF] BROOKE Vera MD Work Phone: [facility] 01-12-2022 10:05-0500 Body weight 71.89 kg BROOKE Vera MD Work Phone: [facility] 01-12-2022 10:05-0500 Diastolic blood pressure 107 mm[Hg] BROOKE Vera MD Work Phone: [facility] 01-12-2022 10:05-0500 Heart rate 107 /min BROOKE Vera MD Work Phone: [facility] 01-12-2022 10:05-0500 SaO2% (BldA) [Mass fraction] 97 % BROOKE Vera MD Work Phone: [facility] 01-12-2022 10:05-0500 Systolic blood pressure 152 mm[Hg] BROOKE Vera MD Work Phone: [facility] 12-06-2021 12:20-0400 Diastolic blood pressure 89 mm[Hg] Kenton Kapadia MD Work Phone: [facility] 12-06-2021 12:20-0400 Heart rate 69 /min Kenton Kapadia MD Work Phone: [facility] 12-06-2021 12:20-0400 Respiratory rate 16 /min Kenton Kapadia MD Work Phone: [facility] 12-06-2021 12:20-0400 SaO2% (BldA) [Mass fraction] 98 % Kenton Kapadia MD Work Phone: [facility] 12-06-2021 12:20-0400 Systolic blood pressure 153 mm[Hg] Kenton Kapadia MD Work Phone: [facility] 12-06-2021 12:01-0400 Body temperature 96.8 [degF] Kenton Kapadia MD Work Phone: [facility] 12-06-2021 09:04-0400 Body height 160 cm Kenton Kapadia MD Work Phone: [facility] 12-06-2021 09:04-0400 Body weight 77.11 kg Kenton Kapadia MD Work Phone: [facility] 11-17-2021 14:09-0400 Diastolic blood pressure 92 mm[Hg] MD Monika Lehman Work Phone: [facility] 11-17-2021 14:09-0400 Heart rate 92 /min MD Monika Lehman Work Phone: [facility] 11-17-2021 14:09-0400 Respiratory rate 18 /min MD Monika Lehman Work Phone: [facility] 11-17-2021 14:09-0400 SaO2% (BldA) [Mass fraction] 95 % MD Monika Lehman Work Phone: [facility] 11-17-2021 14:09-0400 Systolic blood pressure 168 mm[Hg] MD Monika Lehman Work Phone: [facility] 11-17-2021 10:47-0400 Body height 160.02 cm MD Monika Lehman Work Phone: [facility] 11-17-2021 10:47-0400 Body temperature 98.3 [degF] MD Monika Lehman Work Phone: [facility] 11-17-2021 10:47-0400 Body weight 74.84 kg MD Monika Lehman Work Phone: [facility] 06-14-2021 11:30-0400 Body height 160.02 cm Nick Acosta Other [employer] Other 06-14-2021 11:30-0400 Body mass index (BMI) [Ratio] 31.53 kg/m2 Nick Acosta Other [employer] Other 06-14-2021 11:30-0400 Body temperature 96.4 [degF] Nick Schulzbrenna Other [employer] Other 06-14-2021 11:30-0400 Body weight 80.74 kg Nick Schulzbrenna Other [employer] Other 06-14-2021 11:30-0400 Diastolic blood pressure 80 mm[Hg] Nick Sampsonwoody Other [employer] Other 06-14-2021 11:30-0400 SaO2% (BldA) [Mass fraction] 96 % Nick Schulzbrenna Other [employer] Other 06-14-2021 11:30-0400 Systolic blood pressure 140 mm[Hg] Nick Acosta Other [employer] Other 05-03-2021 11:26-0400 Diastolic blood pressure 82 mm[Hg] Mopiopatricia MineWhata Work Phone: [employer] 250 DO Work Phone: 05-03-2021 11:26-0400 Systolic blood pressure 128 mm[Hg] Rugen M Fallon Work Phone: [employer] [facility] 250 DO Work Phone: 05-03-2021 11:21-0400 Body height 160.02 cm Rugen M Fallon Work Phone: [employer] 250 DO Work Phone: 05-03-2021 11:21-0400 Body mass index (BMI) [Ratio] 32.77 kg/m2 Rugen M Rocky Work Phone: [facility] 250 DO Work Phone: 05-03-2021 11:21-0400 Body surface area Derived from formula 1.87 m2 Monika [place] Fallon Work Phone: [facility] 250 DO Work Phone: 05-03-2021 11:21-0400 Body weight 83.92 kg Monika [place] Fallon Work Phone: [facility] 250 DO Work Phone: 05-03-2021 11:21-0400 Diastolic blood pressure 93 mm[Hg] Juanen Padmini Rocky Work Phone: [facility] 250 DO Work Phone: 05-03-2021 11:21-0400 Heart rate 63 /min Monika [place] Rocky Work Phone: [facility] 250 DO Work Phone: 05-03-2021 11:21-0400 Systolic blood pressure 156 mm[Hg] Monika [place] Fallon Work Phone: [facility] 250 DO Work Phone: 12-15-2020 12:15-0400 Body height 160.02 cm Nick Acosta Other [employer] Other 12-15-2020 12:15-0400 Body mass index (BMI) [Ratio] 31.53 kg/m2 Nick Acosta Other [employer] Other 12-15-2020 12:15-0400 Body temperature 97.2 [degF] Nick Acosta Other [employer] Other 12-15-2020 12:15-0400 Body weight 80.74 kg Nick Acosta Other [employer] Other 12-15-2020 12:15-0400 Diastolic blood pressure 90 mm[Hg] Nick Acosta Other [employer] Other 12-15-2020 12:15-0400 SaO2% (BldA) [Mass fraction] 97 % Nick Acosta Other [employer] Other 12-15-2020 12:15-0400 Systolic blood pressure 150 mm[Hg] Nick Acosta Other [employer] Other Encounters Encounter Date Encounter Type Care [...] Not Available Start: 01-20-2023 End: 01-20-2023 ambulatory [facility] Ambulatory Start: 01-20-2023 End: 01-20-2023 Office outpatient visit 15 minutes Daniel Ma MD Work Phone: [facility] Comment on above: Essential hypertensi on (Primary Dx) Start: 01-10-2023 End: 01-10-2023 ambulatory AMAN D BEJ Not Available Start: 12-26-2022 End: 12-26-2022 ambulatory MONIKA M FALLON Not Available Start: 11-21-2022 End: 11-21-2022 ambulatory [facility] Ambulatory Start: 11-21-2022 End: 11-21-2022 Office outpatient visit 25 minutes Elinor Raman MD Work Phone: [facility] Comment on above: Former smoker (Prima ry Dx); Essential hypertension; 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); PVC (premature ventricular contraction); Other ill-defined heart diseases Start: 10-25-2022 End: 10-25-2022 ambulatory TAZ TEJEDA Facility:[facility] Start: 10-25-2022 End: 10-25-2022 Subsequent hospital visit by physician Kenton Kapadia MD Work Phone: Gastroenterology Comment on above: Abdominal pain, unsp ecified abdominal location [R10.9] Start: 10-18-2022 Telephone encounter Swathi Verduzco RNlearning and development intern Comment on above: Appointment Start: 09-20-2022 Office outpatient vi sit 25 minutes Monika [place] Fallon Work Phone: [facility] [place] Work Phone: Start: 09-20-2022 ambulatory Daniel Ma Facility: Start: 05-12-2022 ambulatory Ms. Seema Saldaña Facility: Start: 05-12-2022 Patient encounter procedure Monika Lehmna Work Phone: [facility] 250 DO Work Phone: Start: 05-04-2022 ambulatory Ms. Seema Saldaña Facility: Start: 04-21-2022 Telephone encounter Keiko rizzo RN Gastroenterology Comment on above: Orders Start: 04-20-2022 Telephone encounter Debbi ballard APRN.ADVERTISING PROJECT MANAGER Work Phone: Gastroenterology Comment on above: Erroneous encounter- disregard Start: 04-20-2022 End: 04-20-2022 Follow-up encounter Melody Rosado APRN.CNP Work Phone: Colorectal Surgery Comment on above: Follow-up exam (Prim chin Dx) Start: 04-20-2022 End: 04-20-2022 Telemedicine consultation with patient Melody Rosado APRN.CNP Work Phone: [facility] Start: 04-20-2022 End: 04-21-2022 ambulatory MELODY ROSADO Facility:[facility] Start: 04-19-2022 End: 04-19-2022 ambulatory Debbi Hammond APRN.ADVERTISING PROJECT MANAGER Work Phone: Gastroenterology Comment on above: Abdominal pain, unsp ecified abdominal location (Primary Dx); Adenomatous rectal polyp; Adverse effect of treatment, initial encounter Start: 04-19-2022 End: 04-19-2022 Telemedicine consultation with patient Debbi Hammond APRN.ADVERTISING PROJECT MANAGER Work Phone: [facility] Start: 04-11-2022 End: 04-11-2022 ambulatory MONIKA LEHMAN Facility:[facility] Start: 04-10-2022 Orders Only Taz thapa MD Work Phone: Gastroenterology Comment on above: Adenomatous rectal p olyp (Primary Dx) Start: 03-28-2022 Telephone encounter I Fei merritt MD Work Phone: Colorectal Surgery 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 Start: 03-23-2022 End: 03-24-[address] MONIKA LEHMAN Facility: Start: 03-22-2022 Office outpatient vi sit 15 minutes Monika Lehman Work Phone: -[facility] 3 DO Work Phone: Start: 03-22-2022 ambulatory Daniel Ma Facility: Start: 03-10-2022 Telephone encounter I Fei merritt MD Work Phone: Colorectal Surgery 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 Start: 03-08-2022 Orders Only I Fei Vera MD Work Phone: Colorectal Surgery Comment on above: 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, unspecified part (Primary Dx) Appointment Start: 03-03-2022 End: 03-03-2022 ambulatory MONIKA LEHMAN Facility:[facility] Start: 03-01-2022 Telephone encounter I Fei merritt MD Work Phone: Colorectal Surgery Comment on above: Patient Update 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 - [employer] ther Start: 02-28-2022 Telephone encounter Milagros merritt MD Work Phone: Colorectal Surgery 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 Start: 02-26-2022 ambulatory Faye Richey RN NURSE BAGEL MAKER Comment on above: Medication Question Start: 02-24-2022 [...] intubation; Chronic renal impairment, stage 2 (mild) 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 - [employer] ther Returning Patient's Call No Show Start: 02-24-2022 Encounter for other preprocedural examination MONIKA LEHMAN [facility] Start: 02-24-2022 End: 02-24-2022 Preprocedural examination done Pacc Main 2 Work Phone: Pre Anesthesia Start: 02-23-2022 End: 02-23-2022 ambulatory MONIKA LEHMAN Facility:[facility] Start: 01-12-2022 End: 01-12-2022 ambulatory Milagros VERA Facility:[facility] Start: 01-12-2022 End: 01-12-2022 Patient encounter procedure [...] Start: 12-06-2021 End: 12-06-2021 ambulatory TAZ TEJEDA Facility:[facility] Start: 12-06-2021 End: 12-06-2021 Subsequent hospital visit by physician Kenton Kapadia MD Work Phone: Gastroenterology Comment on above: Diarrhea, unspecifie d type [R19.7] Start: 11-29-2021 Telephone encounter Jessica Green RNlearning and development intern Comment on above: Appointment Confirma tion (Pre-procedure instructions) Start: 11-17-2021 End: 11-17-2021 Emergency department patient visit Monika Lehman Facility:[facility] Start: 11-17-2021 End: 11-17-2021 Emergency department patient visit MD Monika Lehman Work Phone: [facility] Start: 11-03-2021 Telephone encounter Taz Tejeda MD Work Phone: Gastroenterology Comment on above: Orders (Egd/Colonosc opy under MAC) Start: 11-01-2021 End: 11-01-2021 ambulatory MONIKA LEHMAN Facility:[facility] Start: 10-29-2021 End: 10-29-2021 ambulatory TAZ TEJEDA Facility:[facility] Start: 10-28-2021 End: 10-28-2021 ambulatory Taz Tejeda MD Work Phone: Gastroenterology Comment on above: Diarrhea, unspecifie d type (Primary Dx); Abdominal pain, unspecified abdominal location; Nausea Start: 10-28-2021 End: 10-28-2021 Telemedicine consultation with patient Taz Tejeda MD Work Phone: [facility] Start: 10-18-2021 End: 10-18-[address] MONIKA LEHMAN Facility:[facility] Start: 10-07-2021 Rx Renewal Monika Lehman Work Phone: [facility] 250 DO Work Phone: Start: 09-13-2021 End: 09-14-[address] MONIKA LEHMAN Facility:[facility] Start: 07-15-2021 Chart Update Monika Lehman Work Phone: [facility] 3 DO Work Phone: Start: 07-15-2021 End: 07-15-2021 ambulatory Monika Lehman Facility:[facility] Start: 07-15-2021 End: 07-15-2021 Patient encounter procedure MD Monika Lehman Work Phone: [facility] [place] Start: 07-08-2021 AUDIT Monika Lehman Work Phone: [facility] 3 DO Work Phone: Start: 07-07-2021 End: 07-08-[address] MONIKA LEHMAN Facility: Start: 06-14-2021 Office outpatient vi sit 25 minutes Nick Acosta [facility] Vascular Surgery Start: 06-14-2021 End: 06-14-2021 ambulatory Nick Acosta [facility] [employer] Other Start: 06-14-2021 End: 06-14-2021 Patient encounter procedure MD Monika Lehman Work Phone: [facility] Vascular Start: 05-03-2021 Office outpatient vi sit 25 minutes Monika Lehman Work Phone: [facility] 250 DO Work Phone: Start: 12-15-2020 End: 12-15-2020 ambulatory Nick Acosta Other [facility] [employer] Other Start: 12-15-2020 Office outpatient vi sit 25 minutes Nick Acosta [facility] Vascular Surgery Echocardiogram normal Monika [place] Al da Work Phone: [facility] 250 DO Work Phone: Procedures Date Procedure [...] Specimen Type: BLOOD SPEC IMEN Ordering Facility: [facility] Address: [address] [place] [address] Performed By: #### T [id number] #### [facility]LOOD [facility] CLIA [id number] [facility] [address] Start: 12-06-2021 Esophagogastroduodenoscopy transoral diagnostic Taz [...] Phone: Start: 08-14-2018 Echocardiography Appendectomy Monika [place] Rocky Work Phone: Cholecystectomy Monika M Fallon Work Phone: Operation on ovary Juanen M A lda Work Phone: Operation on uterus Juanen M Fallon Work Phone: Tonsillectomy and adenoidectomy Juanen M Fallon Work Phone: Total colonoscopy Monika [place] Work Phone: Comment on above: Dr Olsen [facility]; Plan of Treatment Date Care Activity Detail Author Start: 10-25-2032 Screening for malignant neoplasm of colon [facility] Start: 02-24-2025 DIABETES SCREEN DIABETES SCREEN [facility] Start: 02-24-2025 Diabetes Screening Diabetes Screening [facility] Start: 10-29-2024 DIABETES SCREEN DIABETES SCREEN [facility] Start: 10-26-2023 Colonoscopy Colonoscopy [facility] Start: 10-26-2023 Colorectal Cancer Screening Colorectal Cancer Screening [facility] Start: 05-08-2023 FUV, Provider: Elinor Raman, Status: Román, Time: 1:00 PM FUV, Provider: Elinor Raman, Status: Román, Time: 1:00 PM [facility] 250 DO Work Phone: Start: 05-08-2023 End: 05-08-2023 Patient encounter procedure 05/08/2023 1:00 PM EDT Office Visit [facility] [address] [facility] [address] [place] [address] Elinor Raman MD [address] [facility] [address] [place], [place] [id number] [facility] Start: 03-03-2023 Colonoscopy COLONOSCOPY [facility] Start: 03-03-2023 COLORECTAL CANCER SCREENING COLORECTAL CANCER SCREENING [facility] Start: 02-24-2023 HEMOGLOBIN/HEMATOCRIT HEMOGLOBIN/HEMATOCRIT [facility] Start: 02-24-2023 SERUM CREATININE SERUM CREATININE [facility] Start: 01-20-2023 End: 01-21-2024 Basic metabolic 2000 panel - Serum or Plasma Basic Metabolic Panel Lab Routine Essential hypertension Expected: 01/20/2023 (Approximate), Expires: 01/21/2024 [facility] Service Area Work Phone: Comment on above: Expected: 01/20/2023 (Approximate), Expi res: 01/21/2024 Start: 01-20-2023 FUV, Provider: Daniel Ma, Status: Román, Time: 11:20 AM FUV, Provider: Daniel Ma, Status: Román, Time: 11:20 AM [facility] [place] Work Phone: Start: 01-20-2023 End: 01-20-2023 Patient encounter procedure 01/20/2023 11:20 AM EST Office Visit [facility] [address] [place] [id number] [place] [address] [place] [address] [facility] Start: 12-06-2022 Colonoscopy COLONOSCOPY [facility] Start: 12-06-2022 COLORECTAL CANCER SCREENING COLORECTAL CANCER SCREENING [facility] Start: 11-22-2022 End: 11-23-2023 Comprehensive metabolic 2000 panel - Serum or Plasma Comprehensive metabolic panel Lab Routine Essential hypertension Expected: 11/22/2022 (Approximate), Expires: 11/23/2023 [facility] Work Phone: Comment on above: Expected: 11/22/2022 (Approximate), Expi res: 11/23/2023 Start: 11-22-2022 End: 11-23-2023 Lipid 1996 panel - Serum or Plasma Lipid panel Lab Routine Essential hypertension Expected: 11/22/2022 (Approximate), Expires: 11/23/2023 [facility] Work Phone: Comment on above: Expected: 11/22/2022 (Approximate), Expi res: 11/23/2023 Start: 11-21-2022 End: 11-21-2024 NM Heart Perfusion W stress and W radionuclide IV Nuclear Stress Test Cardiac Nuclear Medicine Routine Essential hypertension 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) Other ill-defined heart diseases Expected: 11/21/2022 (Approximate), Expires: 11/21/2024 [facility] Work Phone: Comment on above: Expected: 11/21/2022 (Approximate), Expi res: 11/21/2024 Start: 11-21-2022 End: 11-21-2024 US Heart Transthoracic Transthoracic Echo (TTE) Complete Echocardiography Routine Essential hypertension 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) PVC (premature ventricular contraction) Expected: 11/21/2022 (Approximate), Expires: 11/21/2024 [facility] Service Area Work Phone: Comment on above: Expected: 11/21/2022 (Approximate), Expi res: 11/21/2024 Start: 10-29-2022 HEMOGLOBIN/HEMATOCRIT HEMOGLOBIN/HEMATOCRIT [facility] Start: 10-29-2022 SERUM CREATININE SERUM CREATININE [facility] Start: 10-14-2022 Influenza vaccination [facility] Start: 09-20-2022 FUV, Provider: Daniel Ma, Status: Pen, Time: 12:50 PM FUV, Provider: Daniel Ma, Status: Pen, Time: 12:50 PM [facility] 3 DO Work Phone: Start: 05-04-2022 End: 11-04-2022 COLONOSCOPY DIAGNOSTIC COLONOSCOPY DIAGNOSTIC Endoscopy Routine Diarrhea, unspecified type Expected: 05/04/2022, Expires: 11/04/2022 [facility] Work Phone: Comment on above: Expected: 05/04/2022, Expires: Start: 05-04-2022 End: 11-04-2022 EGD DIAGNOSTIC EGD DIAGNOSTIC Endoscopy Routine Abdominal pain, unspecified abdominal location Expected: 05/04/2022, Expires: 11/04/2022 [facility] Work Phone: Comment on above: Expected: 05/04/2022, Expires: Start: 04-25-2022 FUV, Provider: Seema Spencer, Status: Pen, Time: 10:30 AM FUV, Provider: Seema Spencer, Status: Pen, Time: 10:30 AM [facility] 250 DO Work Phone: Start: 04-19-2022 FUV, Provider: Deshaun Paniagua, Status: Pen, Time: 10:30 AM FUV, Provider: Deshaun Paniagua, Status: Pen, Time: 10:30 AM [facility] 250 DO Work Phone: Start: 04-03-2022 DIABETES SCREEN DIABETES SCREEN [facility] Start: 02-13-2022 ADVANCE DIRECTIVE DISCUSSION ADVANCE DIRECTIVE DISCUSSION [facility] Start: 01-18-2022 FUV, Provider: Daniel Ma, Status: Pen, Time: 1:00 PM FUV, Provider: Daniel Ma, Status: Pen, Time: 1:00 PM -[facility] 250 DO Work Phone: Start: 01-04-2022 End: 03-06-2022 Carcinoembryonic Ag [Mass/volume] in Serum or Plasma [facility] BLD Lab Routine Neoplasm of uncertain behavior of colon Expected: 01/04/2022, Expires: 03/06/2022 [facility] Work Phone: Comment on above: Expected: 01/04/2022, Expires: 3 Start: 10-28-2021 End: 12-28-2021 CBC panel - Blood by Automated count CBC Lab Routine Abdominal pain, unspecified abdominal location Diarrhea, unspecified type Expected: 10/28/2021, Expires: 12/28/2021 [facility] Work Phone: Comment on above: Expected: 10/28/2021, Expires: 2 Start: 10-28-2021 End: 12-28-2021 CELIAC SCREEN WITH REFLEX CELIAC SCREEN WITH REFLEX Lab Routine Diarrhea, unspecified type Expected: 10/28/2021, Expires: 12/28/2021 [facility] Work Phone: Comment on above: Expected: 10/28/2021, Expires: 2 Start: 10-28-2021 End: 12-28-2021 Comprehensive metabolic 2000 panel - Serum or Plasma COMP METABOLIC PANEL Lab Routine Abdominal pain, unspecified abdominal location Diarrhea, unspecified type Expected: 10/28/2021, Expires: 12/28/2021 [facility] Work Phone: Comment on above: Expected: 10/28/2021, Expires: 2 Start: 10-28-2021 End: 12-28-2021 Thyrotropin [Units/volume] in Serum or Plasma TSH BLD Lab Routine Abdominal pain, unspecified abdominal location Diarrhea, unspecified type Expected: 10/28/2021, Expires: 12/28/2021 [facility] Work Phone: Comment on above: Expected: 10/28/2021, Expires: 2 Start: 10-14-2021 Influenza vaccination INFLUENZA (#1) [facility] Start: 07-20-2021 FUV, Provider: Daniel Ma, Status: Pen, Time: 1:40 PM FUV, Provider: Daniel Ma, Status: Pen, Time: 1:40 PM [facility] 3 DO Work Phone: Start: 05-15-2021 COVID-19 VACCINE (4 - Booster for Pfizer series) COVID-19 VACCINE (4 - Booster for Pfizer series) [facility] Start: 03-11-2021 COVID-19 VACCINE (4 - Booster for Pfizer series) COVID-19 VACCINE (4 - Booster for Pfizer series) [facility] Start: 03-11-2021 COVID-19 VACCINE (4 - Pfizer series) COVID-19 VACCINE (4 - Pfizer series) [facility] Start: 02-13-2021 ADVANCE DIRECTIVE DISCUSSION ADVANCE DIRECTIVE DISCUSSION [facility] Start: 02-13-2021 DEPRESSION ASSESSMENT DEPRESSION ASSESSMENT [facility] Start: 2014 BONE DENSITY BONE DENSITY [facility] Start: 2014 Bone Density Screening Bone Density Screening [facility] Start: 2014 Pneumococcal Vaccine: 65+ (1 - PCV) Pneumococcal Vaccine: 65+ (1 - PCV) [facility] Start: 2014 PNEUMOCOCCAL: 65+ (1 - PCV) PNEUMOCOCCAL: 65+ (1 - PCV) [facility] Start: 2009 Hepatitis B Vaccines (1 of 3 - Risk 3-dose series) Hepatitis B Vaccines (1 of 3 - Risk 3-dose series) [facility] Start: 12-09-1999 SHINGRIX VACCINE (1 of 2) SHINGRIX VACCINE (1 of 2) [facility] Start: 12-09-1999 Zoster Vaccines (1 of 2) Zoster Vaccines (1 of 2) [facility] Start: 1994 COLOGUARD (FIT-DNA) COLOGUARD (FIT-DNA) [facility] Start: 1994 Colonoscopy COLONOSCOPY [facility] Start: 1994 COLORECTAL CANCER SCREENING COLORECTAL CANCER SCREENING [facility] Start: [address] COLONOGRAPHY [facility] Start: 1994 FECAL OCCULT BLOOD FECAL OCCULT BLOOD [facility] Start: 1994 Lipid 1996 panel - Serum or Plasma Lipid Screening [facility] Start: 1994 LIPID SCREEN LIPID SCREEN [facility] Start: 1994 SIGMOIDOSCOPY SIGMOIDOSCOPY [facility] Start: 1989 Mammography [facility] Start: 1989 Screening for malignant neoplasm of breast Mammogram [facility] Start: 12-09-1971 DTaP/Tdap/Td Vaccines (1 - Tdap) DTaP/Tdap/Td Vaccines (1 - Tdap) [facility] Start: 1968 Hepatitis A Vaccines (1 of 2 - Risk 2-dose series) Hepatitis A Vaccines (1 of 2 - Risk 2-dose series) [facility] Start: 1968 Urine microalbumin profile [facility] Start: 12-09-1967 ANNUAL PCP TEAM CHRONIC DISEASE VISIT ANNUAL PCP TEAM CHRONIC DISEASE VISIT [facility] Start: 12-09-1967 BP CONTROLLED (<130/80) BP CONTROLLED (<130/80) [facility] Start: 12-09-1967 HEPATITIS C SCREENING HEPATITIS C SCREENING [facility] Start: 12-09-1967 Hepatitis C screening Hepatitis C Screening [facility] Start: 1961 Adult depression screening assessment DEPRESSION SCREENING [facility] Start: 12-09-1955 Pneumococcal Vaccine: 65+ Years (1 - PCV) Pneumococcal Vaccine: 65+ Years (1 - PCV) [facility] Start: 1949 Lipid panel Lipid Panel [facility] Start: 1949 Screening for malignant neoplasm of colon [facility] Start: 1949 Screening for osteoporosis Bone Density Scan [facility] Start: 1949 Thyroid stimulating hormone measurement TSH Level [facility] Start: 1949 Yearly Adult Physical Yearly Adult Physical [facility] Calprotectin [Mass/m ass] in Stool CALPROTECTIN,FECAL Lab Routine Abdominal pain, unspecified abdominal location Diarrhea, unspecified type Ordered: 10/28/2021 [facility] Work Phone: Comment on above: Ordered: 10/28/2021 Calprotectin [Mass/m ass] in Stool CALPROTECTIN,FECAL Lab Routine Adenomatous rectal polyp Ordered: 04/19/2022 [facility] Work Phone: Comment on above: Ordered: 04/19/2022 Clostridioides diffi cile toxin genes [Presence] in Stool by VERONICA with probe detection C. DIFFICILE PCR Lab Routine Abdominal pain, unspecified abdominal location Diarrhea, unspecified type Ordered: 10/28/2021 [facility] Work Phone: Comment on above: Ordered: 10/28/2021 End: 10-28-2022 COLONOSCOPY DIAGNOSTIC COLONOSCOPY DIAGNOSTIC Endoscopy Routine Abdominal pain, unspecified abdominal location Diarrhea, unspecified type 1 Occurrences starting 10/28/2021 until 10/28/2022 [facility] Work Phone: Comment on above: 1 Occurrences starting 10/28/2021 until 10/28/2022 End: 04-10-2023 COLONOSCOPY DIAGNOSTIC COLONOSCOPY DIAGNOSTIC Endoscopy Routine Adenomatous rectal polyp 1 Occurrences starting 04/10/2022 until 04/10/2023 [facility] Work Phone: Comment on above: 1 Occurrences starting 04/10/2022 until 04/10/2023 End: 05-19-2023 Ct abdomen & pelvis w/contrast material CT ENTEROGRAPHY W IVCON Radiology Routine Adverse effect of treatment, initial encounter Abdominal pain, unspecified abdominal location 1 Occurrences starting 04/19/2022 until 05/19/2023 [facility] Work Phone: Comment on above: 1 Occurrences starting 04/19/2022 until 05/19/2023 End: 10-28-2022 EGD DIAGNOSTIC EGD DIAGNOSTIC Endoscopy Routine Abdominal pain, unspecified abdominal location Diarrhea, unspecified type 1 Occurrences starting 10/28/2021 until 10/28/2022 [facility] Work Phone: Comment on above: 1 Occurrences starting 10/28/2021 until 10/28/2022 Patient Education Hypokalemia Ab dominal Pain, Adult ED [facility] Work Phone: Patient referral [facility] Work Phone: SURGICAL PATHOLOGY [facility] Work Phone: Comment on above: Release Upon Ordering for 1 Occurrences starting 12/06/2021, 1 completed SURGICAL PATHOLOGY [facility] Work Phone: Comment on above: Release Upon Ordering for 1 Occurrences starting 10/25/2022, 1 [facility] Immunizations Immunization Date Immunization Notes Care Provider [facility] 03-23-2022 Fluzone High-Dose Quadrivalent 0.7 ML Intramuscular Suspension Prefilled Syringe Rugen Padmini Fallon Work Phone: [place] [id number] DO Work Phone: 03-23-2022 influenza virus vaccine, unspecified formulation Elinor Raman MD Work Phone: [facility] Work Phone: 01-14-2021 Pfizer-BioNTech COVID-19 Vacc 30 MCG/0.3ML Intramuscular Suspension Rugen M Rocky Work Phone: [place] [address] DO Work Phone: 12-04-2020 influenza, injectabl e, quadrivalent, preservative free Rugen M Rocky Work Phone: [place] [address] DO Work Phone: 12-04-2020 influenza virus vaccine, unspecified formulation Kenton Kapadia MD Work Phone: [facility] 04-15-2020 Pfizer-BioNTech COVID-19 Vacc 30 MCG/0.3ML Intramuscular Suspension Rugen M Rocky Work Phone: [facility] 250 DO Work Phone: 03-24-2020 Pfizer-BioNTech COVID-19 Vacc 30 MCG/0.3ML Intramuscular Suspension Rugen M Fallon Work Phone: [facility] 250 DO Work Phone: 01-16-2020 Fluad Quadrivalent 0 .5 ML Intramuscular Prefilled Syringe Moniak Hamiltona Work Phone: [facility] 250 DO Work Phone: 11-14-2019 influenza virus vaccine, unspecified formulation Rugen M Rocky [facility] Work Phone: 11-14-2019 influenza, seasonal, injectable Elinor Raman MD Work Phone: [facility] Work Phone: 12-21-2018 influenza, injectabl e, madin loc canine kidney, preservative free Rugen M Rocky Work Phone: [facility] 250 DO Work Phone: 11-13-2018 influenza virus vaccine, unspecified formulation Juanen M Rocky Work [facility]: [facility] Work Phone: Payers Date Payer Category Payer Self-pay [id number] 2016 Unknown 2014 Medicare [id number] 1959 Medicare [id number] 1959 Unknown [id number] 1949 Unknown [id number] 2.16.84 0.1.851100.3.579.2.593 1949 Unknown [id number] 2.16.84 0.1.638332.3.579.2.593 1949 Unknown [id number] 2.16.84 0.1.290985.3.579.2.593 1949 Unknown [id number] 2.16.84 0.1.846536.3.579.2.593 1949 Unknown [id number] 2.16. 840.1.713584.3.579.2.356 1949 Unknown [id number] 2.16. 840.1.515295.3.579.2.356 1949 Unknown [id number] 2.16. 840.1.245944.3.579.2.356 1949 Unknown [id number] 2.16. 840.1.237352.3.579.2.356 1949 Unknown [id number] 2.16.8 40.1.633778.3.579.2.1244 1949 Unknown [id number] 2.16.8 40.1.573143.3.579.2.1244 1949 Unknown [id number] 2.16.84 0.1.474840.3.579.2.1259 1949 Unknown [id number] 2.16.84 0.1.205886.3.579.2.1259 1949 Unknown [id number] 2.16.840 .1.992176.3.579.2.1259 1949 Unknown [id number] 2.16.840 .1.613152.3.579.2.1259 1949 Unknown [id number] 2.16.840 .1.615653.3.579.2.1259 1949 Unknown [id number] 2.16.840 .1.232691.3.579.2.1259 1949 Unknown [id number] 2.16.840. 1.204099.3.579.2.1259 Unknown [id number] 2.16.8 40.1.022175.3.579.2.531 Unknown [id number] 2.16.8 40.1.494693.3.579.2.531 Unknown [id number] 2.16.8 40.1.371382.3.579.2.531 Social History Date Type Detail Facility Start: 02-24-2022 End: 11-21-2022 Caffeine use Caffeine use [facility] [employer] Other Comment on above: 1/2 CAN OF POP DAILY 2-3 CUPS OF HOT CHOCOLATE DAILY; Start: 1950 Sex Assigned At Female F [facility] Start: 02-24-2022 End: 11-21-2022 Sex Assigned At [facility] [employer] Other Tobacco smoking status [facility] Tobacco smoking consumption unknown [facility] Start: 1950 Sex Assigned At Not on file C [facility] Start: 10-18-2021 End: 01-20-2023 Exposure to SARS-CoV-2 (event) Not sure [facility] Start: 11-17-2021 Tobacco smoking status TXIS Never smoked tobacco (finding) [facility] Start: 12-06-2021 End: 11-21-2022 Tobacco smoking status NHIS Ex-smoker [facility] End: 02-13-2011 History of tobacco use Current smoker [facility] End: 02-13-2011 History of tobacco use Cigarette Smoker [facility] Start: 12-06-2021 End: 11-21-2022 Tobacco use and exposure Smokeless tobacco non-user [facility] Start: 12-06-2021 End: 11-21-2022 Alcohol intake Lifetime non-drinker (finding) [facility] National Score (1-100), lower number is lower risk 73 [facility] Clinical Notes 12-15-2020 to 11-22-2022 Assessment & Plan Note - Elinor Raman MD - 11/22/2022 10:09 AM EDTAssessment & Plan Note - Elinor Raman MD - 11/22/2022 10:09 AM EDTGcurtis Raman MD - 11/21/2022 3:15 PM EDT Note Date & Type Note Facility 11-22-2022 Evaluation + Plan note Associated Problem(s): Former smoker Encouraged patient to continue to abstain from cigarettes. [facility] Work Phone: 11-22-2022 Miscellaneous Notes Associated Problem(s): [...] the office environment. documented in this encounter [facility] Work Phone: 11-22-2022 Evaluation + Plan note Associated Problem(s): Class 1 obesity with body mass index (BMI) of 32.0 to 32.9 in adult Her BMI puts her in the overweight category, she remains fairly active, actually her weight is not too bad for her age, I reinforced the need for heart healthy lifestyle. [facility] Work Phone: 11-22-2022 Evaluation + Plan note [...] than 2 Follow-up to discuss test results. [facility] Work Phone: 11-22-2022 Evaluation + Plan note [...] of blood pressures outside the office environment. [facility] Work Phone: 11-21-2022 History of Presen t [...] which are followed by vascular surgery in [place]. She says that if she does not [...] any previous visit. The ASCVD Risk score (Corvall[place] DK, et al., 2019) failed to calculate for the following reasons: The patient has a prior WI or stroke diagnosis Assessment/Plan: Essential hypertension Patient [...] Elinor Raman MD documented in this encounter [facility] Work Phone: 11-21-2022 Instructions Ioana Drummond LPN [...] of your visit. documented in this encounter [facility] Work Phone: 10-25-2022 Nurse Note AMBULATORY PATIENT [...] In Department: GASTROENTEROLOGY documented in this encounter [facility] 10-18-2022 Miscellaneous Notes Attempted to reach the patient at the contact number that they provided [phone] (home) . 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 left informing the patient/patient cash applications representative they must have a responsible adult [...] Number to call with questions or concerns [phone] Number to call to cancel their procedure [phone] Swathi Verduzco RN documented in this encounter [facility] 04-21-2022 Miscellaneous Notes Received request for stool orders to be faxed to [facility]. Orders faxed successfully to [phone] Keiko Hernandez RN documented in this encounter [facility] 04-20-2022 Note HNO ID: [id number] Author: Melody Rosado APRN.CNP Service: ? Author [...] visit. Either the patient or their legal cash applications representative has been informed of the risks and benefits of -- and alternatives to -- treatment through a remote evaluation and consents to proceed with the evaluation remotely. Pt is advised to follow up in person with any new/worsening symptoms Her colonoscopy is due 08/2022- sooner as clinically indicate Melody Rosado APRN.CNP [facility] 04-20-2022 History of Presen t illness [...] visit. Either the patient or their legal cash applications representative has been informed of the risks and benefits of -- and alternatives to -- treatment through a remote evaluation and consents to proceed with the evaluation remotely. Pt is advised to follow up in person with any new/worsening symptoms Her colonoscopy is due 08/2022- sooner as clinically indicate Melody Rosado APRN.CNP documented in this encounter [facility] 04-19-2022 Note HNO ID: [id number] Author: Debbi Hammond APRN.CNP Service: ? Author Type: Nurse Practitioner Type: Progress Notes Filed: 04/20/2022 6:26 PM Note Text: VIRTUAL VISIT FOLLOW UP Dianelys Womack [id number] 1950 has requested a video telemedicine for [...] Glucose 74 - (more content not included)... [facility] 04-19-2022 History of Presen t illness Narrative VIRTUAL VISIT FOLLOW UP Dianelys Womack [id number] 1950 has requested a video telemedicine for [...] (03/03/2022)- Dr. Vera Operation: Endoscopic submucosal dissection (57495) and transanal endoscopic removal of the larger [...] On 03/03/2022 she underwent endoscopic submucosal dissection (69297) and transanal endoscopic removal of the larger rectal lesion with Dr. Vera- path detailed above. She followed up with ELIZABET Owens INSTRUCTOR TRAINER CANINE SERVICE, s/p surgery and reported feeling improved overall [...] Levsin - Repeat fecal calpro (fax to #[phone], per pt preference) - CTe to further [...] with more than 50% of the total [id number] time of the visit in counseling / coordination of care. I have confirmed and edited as necessary, the PFSH and ROS obtained by others. Unrelated to E/M, telemedicine, or virtual visit service provided within previous 7 days. No E/M service or procedure anticipated within next 24 hours. Debbi Hammond APRN.ADVERTISING PROJECT MANAGER April 19, 2022 5:49 PM Answers submitted [...] with oil: Yes documented in this encounter [facility] 04-11-2022 Note HNO ID: [id number] Author: Melody Rosado APRN.CNP Service: ? Author Type: Nurse Practitioner Type: Progress Notes Filed: 04/11/2022 2:58 PM Note Text: COLORECTAL SURGERY Post-Op virtual Visit Dianelys Womack returns for a post-operative visit after undergoing surgery, on 03/03/2022. SURGEON: Fei Vera M.D. COLLAR POINTER: COLLAR POINTER: Pierre Tinoco MD. No qualified resident available. He participated in all portions of the surgery documented. This includes patient positioning, abdominal access, exposure, dissection and abdominal closure. . No qualified resident was available and he was instrumental in huddling and assistance and closure of the procedure. SURGERY/PROCEDURE: Endoscopic submucosal dissection ([id number]) and transanal endoscopic removal of the larger [...] See above Melody (more content not included)... [facility] 03-28-2022 Miscellaneous Notes Called and spoke [...] reach out to his office to discuss [phone] Dianelys Womack complains of watery diarrhea. documented in this encounter [facility] 03-10-2022 Miscellaneous Notes Called and spoke [...] again, patient appreciative of call, verbalized understanding [phone] Dianelys Womack asked to speak with Lety. [...] make the appt. documented in this encounter [facility] 03-09-2022 Miscellaneous Notes I called patient and left message. An order for vascular surgery consult was placed. 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 documented in this encounter [facility] 03-03-2022 Note HNO ID: [id number] Author: Rohini Stephenson APRN.JOURNEYMAN PRESS OPERATOR Service: ? Author Type: Nurse Perfumer Type: Anesthesia Procedure Notes Filed: 03/03/2022 3:31 PM Note Text: ANESTHESIOLOGY PROCEDURE NOTE Airway General Information Procedure Start Time/Medication Administration: 03/03/2022 12:43 PM Patient location during procedure: OR Timeout Performed Pre-procedure: timeout performed Consent Obtained: Yes Patient identity confirmed: arm band, care produce team lead and patient Staffing Anesthesiologist: Lakeshia Delacruz MD, [...] March 03, 2022 TIME: 1:16 PM CSN: [id number] [facility] 03-03-2022 Note HNO ID: [id number] Author: Rohini Stephenson APRN.CRNA Service: ? Author Type: Nurse Perfumer Type: Anesthesia Procedure Notes Filed: 03/03/2022 1:11 [...] March 03, 2022 TIME: 1:11 PM CSN: [id number] [facility] 03-02-2022 Miscellaneous Notes Called and spoke with patient Advised that she has a listed allergy to flagyl, so I did not send that to her pharmacy Patient verbalized understanding Dianelys Womack asked why she didn't get the flagyl and just the neomycin? Electronically signed by Stephaniemathieu Maradiaga [facility] at 03/01/2022 4:19 PM EST documented in this encounter [facility] 03-01-2022 Miscellaneous Notes Dianelys Womack did not receive any information by mail. As discussed, please fax to daughterRenetta [phone] documented in this encounter [facility] 02-28-2022 Miscellaneous Notes Called and spoke with patient She would like pt ed info faxed to her daughter's fax number She also wanted to review meds prior to surgery - reviewed what PACC advised as far as medication stopping and/or taking Patient appreciative of call She was also interested in possibly hooking up with cardiovascular provider here at [facility] for AAA She will call me if interested deciding to proceed with care with CV at [facility] - I am happy to help coordinate [phone] Dianelys Womack has questions about meds she can and can't take prior to surgery. Gisselle Tramadol probotic Electronically signed by Stephaniemathieu Maradiaga [facility] at 02/28/2022 9:27 AM EST documented in this encounter [facility] 02-26-2022 Miscellaneous Notes Patient calling she has colorectal surgery on 03/03/22. Patient was given instructions on taking medications prior to surgery. Patient stated they did not go over her tramadol or Klor-con and she is concerned. Unable to see specifics on these medications to help patient. Patient denies any new or worsening symptoms of which a provider is not aware:Yes. Conferenced to [facility] hoop bending machine operator [facility] for Colorectal Surgery application integration specialist provider for Dr. Fei Vera. GO TO THE EMERGENCY ROOM OR CALL 911 IF: * You develop any new symptoms * Your condition worsens * You are concerned or anxious about your condition for any other reason. If you have any questions, you can call Nurse distillation operator helper back. documented in this encounter [facility] 02-24-2022 Miscellaneous Notes Called and spoke with patient She accidentally left and missed pt ed appt Reviewed pt ed over the phone Medications sent to pharmacy Will send pt ed info to her via mail Patient appreciativ eof call The Patient is returning the nurses call back. Please call patient at [phone] documented in this encounter [facility] 02-24-2022 Miscellaneous Notes Called patient. No answer, left message Advised that she is late for appt with nurse for preop education Advised that she come to appt if she is still here, if running late no problem If she left for the day, she should call the office so we can review pt ed over the phone documented in this encounter [facility] 02-24-2022 Instructions Karson Monte APRN.ADVERTISING PROJECT MANAGER - 02/24/2022 10:00 AM EST PATIENT PREOPERATIVE INSTRUCTIONS Milagros Vera MD has scheduled you for your procedure at this surgery center: [facility] [place] Scheduling Office: [phone] --[address] [place] [address]. Please read below carefully for your personalized [...] Procedures: - YOU MUST HAVE A RESPONSIBLE PATIENT TRANSPORT OFFICER TAKE YOU HOME. A CERAMIC CAPACITOR PROCESSOR OR COMMUNITY LIFE DIRECTOR CANNOT BE MADE A RESPONSIBLE PATIENT TRANSPORT OFFICER. - We recommend that a responsible person [...] call the Monday before. Your surgeon s strategic alliances manager will tell you what time to call the office. - If you have not reached the departmental strategic alliances manager by 5 P.M., call [phone] after 5 P.M. the day before your surgery. Please be aware that emergency situations arise, which may delay or change your surgical time. If this happens, we will notify you as soon as possible and regret any inconvenience. If you already have an Advance Directive, please fax a copy to [phone] or email to for it to be [...] Karson Monte APRN.CNP documented in this encounter [facility] 02-24-2022 History and physical note HISTORY [...] or any previous visit (from the past 95350 hour(s)). Assessment History of anesthesia complications Patient [...] 35 kg/m^2 Non-male patient STOP-Bang Score: 3 [id number] Score: Hypertension history: Yes Stroke/TIA/thromboembolism history: Yes [id number] Score: 3 ARISCAT Score: Emergency procedure: No [...] AM PAGER/CONTACT #: documented in this encounter [facility] 01-12-2022 History and physical note COLORECTAL SURGERY New Patient Visit January 04, 2022 Chief Complaint: rectal lesion History of Present Illness: Dianelsy Womack is a 71 year old female [...] closed Resting tone: NORMAL Squeeze tone: NORMAL Director Of Program Management present: Yes Assessment Medical Decision Making: Assessment [...] treatment plan: moderate documented in this encounter [facility] 12-24-2021 Miscellaneous Notes Spoke to Dianelys and reviewed colonoscopy and EGD results. She notes improvement in diarrhea since the colonoscopy. Also previously noted something bulging in and out of her rectum but not since the procedure. Will ask Dr. Vera if he can attempt endoscopic or transanal resection of the polyp Taz Tejeda MD documented in this encounter [facility] 12-06-2021 Note Q3 Patient Name: Dianelys Womakc Procedure Date: 12/06/2021 10:57 AM Date of [...] present medications. Procedure Code(s): --- Professional --- 46992, Esophagogastroduodenoscopy, flexible, transoral; diagnostic, including collection of specimen(s) by brushing or washing, when performed (separate procedure) Diagnosis Code(s): --- Professional --- R10.13, Epigastric pain CPT copyright 2020 [employer]. All rights reserved. Attending Participation: I personally performed the entire procedure. Scope In: 11:20:21 AM Scope Out: 11:22:14 AM MD Kenton Rowe MD 12/06/2021 11:23:55 AM This report has been signed electronically by Kenton Kapadia MD Number of Addenda: 0 Note Initiated On: 12/06/2021 10:57 AM [facility] 12-06-2021 Nurse Note AMBULATORY PATIENT EDUCATION [...] Anastasia Orlando RN documented in this encounter [facility] 11-29-2021 Miscellaneous Notes Attempted to reach the patient at the contact number that they provided [phone] (home). 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 Keiko Hernandez RN Please place new egd/colonoscopy w MAC orders to be scheduled at Q3 Please contact patient's daughter(Shy) to schedule. # [phone] documented in this encounter [facility] 10-28-2021 History of Presen t illness Narrative VIRTUAL VISIT NEW PATIENT NAME: Dianelys Womack [facility] NO: [id number] DATE: 10/28/2021 REASON FOR VISIT Dianelys Womack [...] which included preparing to see the patient, [id number] patient care, completing clinical documentation, obtaining and/or reviewing separately obtained history, counseling and educating the patient/family/caregiver, and ordering medications, tests, or procedures. Taz Tejeda MD documented in this encounter [facility] 09-14-2021 Note PROCEDURE: XR FOREAR M [...] by: NATALIE FRANCO Date: 2021-09-14 08:58 [facility] 09-14-2021 Note PROCEDURE: XR FOREAR M [...] authenticated by: NATALIE FRANCO Date: 2021-09-14 08:58 [facility] 07-07-2021 Note CONSULTATION CONSULTATION DATE: 07/07/2021 [...] heavy antibiotic use. 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 She does use heat which decreases her pain. She has completed physical therapy at [facility] within the past year. She has visited [...] of care and will call as needed. [facility] Signed and Approved by: MARANDA OSEGUERA . 07/21/2021 16:05:00 [facility] 06-14-2021 Evaluation note Encounter Date Diagnosis [...] She understands and agrees with that plan. [employer] Other 11-02-2021 Evaluation note* Encounter Date Diagnosis [...] the next visit we may consider intervention. [employer] Other Evaluation noteNo assessment information available [facility] Work Phone: Evaluation note* Diagnosis Diarrhea, unspecified type- Primary Abdominal pain, unspecified abdominal location Nausea Nausea alone [facility] Diagnosis Abdominal pain, unspecified abdominal location- Primary Diarrhea, unspecified type documented in this encounter [facility] note* Diagnosis Diarrhea, unspecified type Abdominal pain, unspecified abdominal location Primary hypertension Unspecified essential hypertension Gastroesophageal reflux disease without esophagitis Esophageal reflux Chronic renal impairment, stage 2 (mild) History of anesthesia complications Unspecified adverse effect of anesthesia Cerebrovascular accident (CVA), unspecified mechanism (HCC) documented in this encounter [facility] note* Diagnosis 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, intestines, and rectum [facility] Diagnosis Benign neoplasm of rectum- Primary Benign neoplasm of rectum and anal canal [facility] Diagnosis Pre-op evaluation- Primary [...] involving digestive system documented in this encounter [facility] note* Diagnosis Thoracoabdominal aortic aneurysm (TAAA) without rupture, unspecified part- Primary [facility] Diagnosis Adenomatous rectal polyp- Primary Benign neoplasm of rectum and anal canal [facility] Diagnosis Abdominal pain, unspecified abdominal location- Primary Adenomatous rectal polyp Benign neoplasm of rectum and anal canal Adverse effect of treatment, initial encounter [facility]* Diagnosis Follow-up exam- Primary Unspecified follow-up examination [facility] Diagnosis Abdominal pain, unspecified abdominal location Diarrhea, unspecified type [facility] Diagnosis Former smoker- Primary Personal history of tobacco use, presenting hazards to health Essential hypertension Unspecified essential hypertension 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) PVC (premature ventricular contraction) Other premature beats Other ill-defined heart diseases documented in this encounter [facility] Work Phone: Evaluation note* Diagnosis Essential hypertension- Primary Unspecified essential hypertension documented in this encounter [facility] Work Phone: History general Narrative - Reported* Type Description Date Medical History AAA Medical History CVOD Medical History CVA Medical History HTN Medical History C-diff Medical History CRI Medical History Iliac artery aneurysm Surgical History tonsillectomy and adenoidectomy Surgical History appendectomy Surgical History cholecystectomy Surgical History hysterectomy x 3 Hospitalization History childbirth Hospitalization History see above Hospitalization History [facility] [place] [employer] Other History of Present illness Narrative* Ms. [...] for follow-up or sooner if need be. [facility] 250 DO Work Phone: History of Present illness NarrativeThe patient is being seen for a routine clinic follow-up of chronic kidney disease. This is classified as stage 3. Recently, the disease has been stable. There are no known disease complications. Thepatient is currently asymptomatic. No associated symptoms are reported.[facility] 3 DO Work Phone: History of Present illness NarrativeThe patient is being seen for a routine clinic follow-up of chronic kidney disease. This is classified as stage 3. Recently, the disease has been stable. There are no known disease complications. Thepatient is currently asymptomatic. No associated symptoms are reported.[facility] 3A [place] Work Phone: History of Present illness Narrative* Daniel Ma MD - 01/20/2023 11:20 AM EST Dianelys Womack 72 y.o. @@ [facility]/Room: [id number]/Room/bed info not found Subjective: The patient is [...] follow-up. Daniel Ma MD documented in this [facility] Work Phone: Hospital Discharge instructions Additional Instructions Follow-up with your coach wirer as scheduled [facility] Reason for referral (narrative)* Outpatient Procedure (Routine) - Pending Review Specialty Diagnoses / Procedures Referred By Geuro butt Referred To Contact [facility] Diagnoses Abdominal pain, unspecified abdominal location Diarrhea, unspecified type Procedures COLONOSCOPY DIAGNOSTIC COLONOSCOPY FLX DX W/COLLJ SPEC WHEN PFRMD Taz Tejeda MD [address] [place] [address] [facility] [place] [address] Referral ID Status Reason Start Date Expiration Date Visits Requested Visits Authorized [id number] Pending Review Auto-Generat ed Referral 10/28/2021 10/28/2022 1 1 * Outpatient Procedure (Routine) - Pending Review Specialty Diagnoses / Procedures Referred By Guero butt Referred To Contact [facility] Diagnoses Abdominal pain, unspecified abdominal location Diarrhea, unspecified type Procedures EGD DIAGNOSTIC ESOPHAGOGASTRODUODENOSC OPY TRANSORAL DIAGNOSTIC Taz Tejeda MD [address] [place] [place] [id number] [address] Referral ID Status Reason Start Date Expiration Date Visits Requested Visits Authorized [id number] Pending Review Auto-Generat ed Referral 10/28/2021 10/28/2022 1 1 [facility] for referral (narrative)* Outpatient Procedure (Routine) - Pending Review Specialty Diagnoses / Procedures Referred By Contac t Referred To [facility] Diagnoses Abdominal pain, unspecified abdominal location Procedures EGD DIAGNOSTIC ESOPHAGOGASTRODUODENOSC OPY TRANSORAL DIAGNOSTIC Taz Tejeda MD [address] [place], [place] [id number] [address] [address] Referral ID Status Reason Start Date Expiration Date Visits Requested Visits Authorized [id number] Pending Review Auto-Generat ed Referral 05/04/2022 11/04/2022 1 1 * Outpatient Procedure (Routine) - Pending Review Specialty Diagnoses / Procedures Referred By Contac t Referred To [facility] Diagnoses Diarrhea, unspecified type Procedures COLONOSCOPY DIAGNOSTIC COLONOSCOPY FLX DX W/COLLJ SPEC WHEN PFRMD Taz Tejeda MD [address] [place] [address] [address] Referral ID Status Reason Start Date Expiration Date Visits Requested Visits Authorized [id number] Pending Review Auto-Generat ed Referral 05/04/2022 11/04/2022 1 1 [facility] for referral (narrative)* Outpatient Procedure (Routine) - Closed Specialty Diagnoses / Procedures Referred By Contac t Referred To [facility] Diagnoses Abdominal pain, unspecified abdominal location Procedures EGD DIAGNOSTIC ESOPHAGOGASTRODUODENOSC OPY TRANSORAL DIAGNOSTIC Taz Tejeda MD [address] [place] [address] [address] Referral ID Status Reason Start Date Expiration Date V isits Requested Visits Authorized [id number] Closed Auto-Generate d Referral 05/04/2022 11/04/2022 1 1 * Outpatient Procedure (Routine) - Closed Specialty Diagnoses / Procedures Referred By Contac t Referred To Contact [facility] Diagnoses Diarrhea, unspecified type Procedures COLONOSCOPY DIAGNOSTIC COLONOSCOPY FLX DX W/[place] [address] [place], [place] [phone] [address] [address] Referral ID Status Reason Start Date Expiration Date V isits Requested Visits Authorized [id number] Closed Auto-Generate d Referral 05/04/2022 11/04/2022 1 1 [facility] for referral (narrative)* Outpatient Procedure (Routine) - Pending Review Specialty Diagnoses / Procedures Referred By Guero t Referred To [facility] Diagnoses Adenomatous rectal polyp Procedures COLONOSCOPY DIAGNOSTIC COLONOSCOPY FLX DX W/COLLJ SPEC WHEN Taz Heard MD [address] [place] [address] [address] Referral ID Status Reason Start Date Expiration Date Visits Requested Visits Authorized [id number] Pending Review Auto-Generat ed Referral 04/10/2022 04/10/2023 1 1 [facility] for referral (narrative)* Outpatient Procedure (Routine) - Closed Specialty Diagnoses / Procedures Referred By Contac t Referred To Contact [facility] DISEASE [facility] Diagnoses Abdominal pain, unspecified abdominal location Diarrhea, unspecified type Procedures COLONOSCOPY DIAGNOSTIC COLONOSCOPY FLX DX W/COLLJ SPEC WHEN PFRMD Taz Tejeda MD [address] [place] [address] [facility] [address] [place] [address] Referral ID Status Reason Start Date Expiration Date V isits Requested Visits Authorized [id number] Closed Auto-Generate d Referral 10/28/2021 10/28/2022 1 1 [facility] for referral (narrative)* Consultation (Routine) - Authorized Specialty Diagnoses / Procedures Referred By Contac t Referred To Contact Cardiology Diagnoses Essential hypertension 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) Procedures Follow Up In Cardiology Elinor Raman MD [address] [facility] [address] [place] [address] Referral ID Status Reason Start Date Expiration Date V isits Requested Visits Authorized [id number] Authorized 11/21/2022 05/20/2023 1 1 * Cardiac Stress Testing (Routine) - Pending Review Specialty Diagnoses / Procedures Referred By Contac t Referred To Contact Radiology Diagnoses Essential hypertension 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) Other ill-defined heart diseases Procedures Nuclear Stress Test CHG MYOCARDIAL SPECT MULTIPLE STUDIES CHG MYOCARDIAL SPECT SINGLE STUDY AT REST OR STRESS Elinor Raman MD [address] [facility] [address] [place] [address] Referral ID Status Reason Start Date Expiration Date V isits Requested Visits Authorized [id number] Pending Review 11/21/2022 05/20/2023 5 5 * CV Imaging (Routine) - Pending Review Specialty Diagnoses / Procedures Referred By Contac t Referred To Contact Cardiology Diagnoses Essential hypertension 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) PVC (premature ventricular contraction) Procedures Transthoracic Echo (TTE) Complete ID ECHO TRANSTHORC R-T 2D W/WO M-MODE REC F-UP/LMTD ID DOP ECHOCARD COLOR FLOW VELOCITY MAPPING ID DOP ECHOCARD PULSE WAVE W/SPECTRAL F-UP/LMTD STD Elinro Raman MD [address] [facility] [address] [place] [address] Referral ID Status Reason Start Date Expiration Date Visits Requested Visits Authorized [id number] Pending Review Perform Procedure 11/21/2022 05/20/2023 1 1 [facility] Work Phone: Reason for visit Narrative* Outpatient Procedure (Routine) - Closed Specialty Diagnoses / Procedures Referred By Contac t Referred To Contact [facility] Diagnoses Abdominal pain, unspecified abdominal location Diarrhea, unspecified type Procedures COLONOSCOPY DIAGNOSTIC COLONOSCOPY FLX DX W/COLLJ SPEC WHEN PFRMD Taz Tejeda MD [address] [place] [address] [facility] [address] [place] [address] Referral ID Status Reason Start Date Expiration Date V isits Requested Visits Authorized [id number] Closed Auto-Generate d Referral 10/28/2021 10/28/2022 1 1 [facility] Summary Purpose Family History No Family [...] ABD & PELVIS W/CONTRAST Debbi Hammond APRN.ALEX [address] [place] [address] Ct Imaging Referral ID Status Reason Start Date Expiration Date Visits Requested Visits Authorized [id number] Pending Review Auto-Generat ed Referral 04/19/2022 05/19/2023 1 1 Specialty Diagnoses / Procedures Referred By Guero butt Referred To Contact Vascular Surgery Diagnoses Thoracoabdominal aortic aneurysm (TAAA) without rupture, unspecified part Procedures CONSULT TO VASCULAR SURGERY OFFICE/OUTPATIENT [facility] 60-74 MINUTES Milagros Vera MD [address] [place] [address] Referral ID Status Reason Start Date Expiration Date Visits Requested Visits Authorized [id number] Pending Review PCP Requested Referral 03/08/2022 03/08/2023 1 1 Additional Source Comments INFORMATION SOURCE (unrecogn ized section and content) DATE CREATED AUTHOR 08/15/2018 [facility] DATE CREATED AUTHOR AUTHOR'S ORGANIZ ATION 11/18/2021 [facility] DATE CREATED AUTHOR AUTHOR'S ORGANIZ ATION 03/25/2022 [facility] DATE CREATED AUTHOR AUTHOR'S ORGANIZ ATION 09/21/2022 [facility] DATE CREATED AUTHOR AUTHOR'S ORGANIZ ATION 09/21/2022 [facility] DATE CREATED AUTHOR AUTHOR'S ORGANIZ ATION 09/24/2022 [facility] DATE CREATED AUTHOR AUTHOR'S ORGANIZ ATION 10/29/2022 [facility] DATE CREATED AUTHOR AUTHOR'S ORGANIZ ATION 01/23/2023 [facility] DATE CREATED AUTHOR AUTHOR'S ORGANIZ ATION 02/25/2023 [facility] dical Specialists EPIC Care Teams [...] Active Daniel Ma MD Attending Provider Active Foreign Diplomat Relationship Specialty Start Date End Date Monika Lehmanfabio [address] [facility] [address] [place] [address] PCP - General Family Practice 03/12/15 Aman Quiroz MD [address] [place] [id number] Referring Neurology 11/20/19 Foreign Diplomat Relationship Specialty Start Date End Date Monika Lehman Marin [address] [facility] [address] [place] [address] PCP - General Family Medicine 03/12/15 Aman Quiroz MD [address] [place] [address] Referring Neurology 11/20/19 Team Status: Inactive Member Role Status Dates Monika Lehman MD Primary Care Provider Active Chucho Saldaña MD Emergency Provider Active Foreign Diplomat Relationship Specialty Start Date End Date Monika Lehman [address] [place] [address] [place] [address] PCP - General Family Medicine 03/12/15 Aman Quiroz MD [address] [place] [address] Referring Neurology 11/20/19 Foreign Diplomat Relationship Specialty Start Date End Date Monika Lehman [address] [facility] [address] [place] [address] PCP - General Family Medicine 03/12/15 Aman Quiroz MD [address] [place] [address] Referring Neurology 11/20/19 Foreign Diplomat Relationship Specialty Start Date End Date Monika Lehman [address] [facility] [address] [place] [address] PCP - General Family Medicine 03/12/15 Aman Quiroz MD [address] [place] [address] Referring Neurology 11/20/19 Foreign Diplomat Relationship Specialty Start Date End Date Monika Lehman [address] [facility] [address] [place] [address] PCP - General Family Medicine 03/12/15 Aman Quiroz MD [address] [place] [address] Referring Neurology 11/20/19 Foreign Diplomat Relationship Specialty Start Date End Date Monika Lehman [address] [place] [address] PCP - General Family Medicine 03/12/15 Aman Quiroz MD [address] [place] [address] Referring Neurology 11/20/19 Foreign Diplomat Relationship Specialty Start Date End Date Monika Lehman [address] [place] [address] PCP - General Family Medicine 03/12/15 Aman Quiroz MD [address] [place] [address] Referring Neurology 11/20/19 Foreign Diplomat Relationship Specialty Start Date End Date Monika Lehman [address] [place] [address] PCP - General Family Medicine 03/12/15 Aman Quiroz MD [address] [place] [address] Referring Neurology 11/20/19 Foreign Diplomat Relationship Specialty Start Date End Date Monika Lehman [address] [place] [address] PCP - General Family Medicine 03/12/15 Aman Quiroz MD [address] [place] [address] Referring Neurology 11/20/19 Foreign Diplomat Relationship Specialty Start Date End Date Monika Lehmany [address] [place] [address] PCP - General Family Medicine 03/12/15 Aman Quiroz MD [address] [place] [address] Referring Neurology 11/20/19 Foreign Diplomat Relationship Specialty Start Date End Date Monika Lehman [address] [place] [place] [address] PCP - General Family Medicine 03/12/15 Aman Quiroz MD [address] [place] [address] Referring Neurology 11/20/19 Foreign Diplomat Relationship Specialty Start Date End Date Monika Lehmanfabio [address] [place] [address] PCP - General Family Medicine 03/12/15 Aman Quiroz MD [address] [place] [address] Referring Neurology 11/20/19 Foreign Diplomat Relationship Specialty Start Date End Date Monika Lehmanfabio [address] [facility] [address] [place] [address] PCP - General Family Medicine 03/12/15 Aman Quiroz MD [address] [place] [address] Referring Neurology 11/20/19 Foreign Diplomat Relationship Specialty Start Date End Date Monika Lehmanfabio [address] [facility] [address] [place] [address] PCP - General Family Medicine 03/12/15 Aman Quiroz MD [address] [place] [address] Referring Neurology 11/20/19 Foreign Diplomat Relationship Specialty Start Date End Date Monika Lehmanfabio [address] [place] [place] [address] PCP - General Family Medicine 03/12/15 Aman Quiroz MD [address] [place] [address] Referring Neurology 11/20/19 Foreign Diplomat Relationship Specialty Start Date End Date Monika Lehman [address] [facility] [address] [place] [address] PCP - General Family Medicine 03/12/15 Aman Quiroz MD [address] [place] [address] Referring Neurology 11/20/19 Foreign Diplomat Relationship Specialty Start Date End Date Monika Lehman MD [address] [facility] [address] [place] [address] PCP - General Family Medicine 03/12/15 Aman Quiroz MD [address] [place] [address] Referring Neurology 11/20/19 Foreign Diplomat Relationship Specialty Start Date End Date Monika Lehman MD [address] [facility] [address] [place] [address] PCP - General Family Medicine 03/12/15 Aman Quiroz MD [address] [place] [address] Referring Neurology 11/20/19 Foreign Diplomat Relationship Specialty Start Date End Date Monika Lehman MD [address] [facility] [address] [place] [address] PCP - General 08/14/18 Foreign Diplomat Relationship Specialty Start Date End Date Monika Lehman MD [address] [facility] [address] [place] [address] PCP - General 08/14/18 Goals (unrecognized section [...] abdominal location Procedures CONSULT TO GASTROENTEROLOGY OFFICE/OUTPATIENT [facility] 60-74 MINUTES Erinn Lawson MD [address] [facility] [place] [address] Referral ID Status Reason Start Date Expiration Date Visits Requested Visits Authorized [id number] Pending Review PCP Requested Referral 10/28/2021 10/28/2022 1 1 Reason Comments Orders Egd/Colonoscopy unde r MAC Reason Comments Appointment Confirmation Pre-procedure i nstructions Specialty Diagnoses / Procedures Referred By Contac t Referred To Contact ENDOSCOPY Diagnoses dx Procedures dx [facility] Endoscopy [address] [address] Referral ID Status Reason Start Date Expiration Date Visits Re quested Visits Authorized [id number] 1 1 Reason Comments Results Reason Comments Colon polyp Reason Onset Date Comments Refill Request 02/24/2022 Reason Comments Pre-Op Visit Reason Comments [employer] 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 - Other Reason Comments Returning Patient's Call [...] or prosecute any alcohol or drug abuse patient.[facility]In the event this information is protected by the Federal Confidentiality of Alcohol and Drug Abuse Patient Records regulations: The Federal rules restrict any use of the information to criminally investigate or prosecute any alcohol or drug abuse patient.[facility] HospitalIn the event this information is protected by the Federal Confidentiality of Alcohol and Drug Abuse Patient Records regulations: The Federal rules restrict any use of the information to criminally investigate or prosecute any alcohol or drug abuse patient.[facility] HospitalIn the event this information is protected by the Federal Confidentiality of Alcohol and Drug Abuse Patient Records regulations: The Federal rules restrict any use of the information to criminally investigate or prosecute any alcohol or drug abuse patient.[facility] HospitalIn the event this information is protected by the Federal Confidentiality of Alcohol and Drug Abuse Patient Records regulations: The Federal rules restrict any use of the information to criminally investigate or prosecute any alcohol or drug abuse patient.[facility] HospitalIn the event this information is protected by the Federal Confidentiality of Alcohol and Drug Abuse Patient Records regulations: The Federal rules restrict any use of the information to criminally investigate or prosecute any alcohol or drug abuse patient.[facility] HospitalIn the event this information is protected by the Federal Confidentiality of Alcohol and Drug Abuse Patient Records regulations: The Federal rules restrict any use of the information to criminally investigate or prosecute any alcohol or drug abuse patient.[facility] HospitalIn the event this information is protected by the Federal Confidentiality of Alcohol and Drug Abuse Patient Records regulations: The Federal rules restrict any use of the information to criminally investigate or prosecute any alcohol or drug abuse patient.[facility] HospitalIn the event this information is protected by the Federal Confidentiality of Alcohol and Drug Abuse Patient Records regulations: The Federal rules restrict any use of the information to criminally investigate or prosecute any alcohol or drug abuse patient.[facility] HospitalIn the event this information is protected by the Federal Confidentiality of Alcohol and Drug Abuse Patient Records regulations: The Federal rules restrict any use of the information to criminally investigate or prosecute any alcohol or drug abuse patient.[facility] HospitalIn the event this information is protected by the Federal Confidentiality of Alcohol and Drug Abuse Patient Records regulations: The Federal rules restrict any use of the information to criminally investigate or prosecute any alcohol or drug abuse patient.[facility] HospitalIn the event this information is protected by the Federal Confidentiality of Alcohol and Drug Abuse Patient Records regulations: The Federal rules restrict any use of the information to criminally investigate or prosecute any alcohol or drug abuse patient.[facility] HospitalIn the event this information is protected by the Federal Confidentiality of Alcohol and Drug Abuse Patient Records regulations: The Federal rules restrict any use of the information to criminally investigate or prosecute any alcohol or drug abuse patient.[facility] HospitalIn the event this information is protected by the Federal Confidentiality of Alcohol and Drug Abuse Patient Records regulations: The Federal rules restrict any use of the information to criminally investigate or prosecute any alcohol or drug abuse patient.[facility] HospitalIn the event this information is protected by the Federal Confidentiality of Alcohol and Drug Abuse Patient Records regulations: The Federal rules restrict any use of the information to criminally investigate or prosecute any alcohol or drug abuse patient.[facility] HospitalIn the event this information is protected by the Federal Confidentiality of Alcohol and Drug Abuse Patient Records regulations: The Federal rules restrict any use of the information to criminally investigate or prosecute any alcohol or drug abuse patient.[facility] HospitalIn the event this information is protected by the Federal Confidentiality of Alcohol and Drug Abuse Patient Records regulations: The Federal rules restrict any use of the information to criminally investigate or prosecute any alcohol or drug abuse patient.[facility] HospitalIn the event this information is protected by the Federal Confidentiality of Alcohol and Drug Abuse Patient Records regulations: The Federal rules restrict any use of the information to criminally investigate or prosecute any alcohol or drug abuse patient.[facility] HospitalIn the event this information is protected by the Federal Confidentiality of Alcohol and Drug Abuse Patient Records regulations: The Federal rules restrict any use of the information to criminally investigate or prosecute any alcohol or drug abuse patient.[facility] HospitalIn the event this information is protected by the Federal Confidentiality of Alcohol and Drug Abuse Patient Records regulations: The Federal rules restrict any use of the information to criminally investigate or prosecute any alcohol or drug abuse patient.[facility] HospitalIn the event this information is protected by the Federal Confidentiality of Alcohol and Drug Abuse Patient Records regulations: The Federal rules restrict any use of the information to criminally investigate or prosecute any alcohol or drug abuse patient.[facility] HospitalIn the event this information is protected by the Federal Confidentiality of Alcohol and Drug Abuse Patient Records regulations: The Federal rules restrict any use of the information to criminally investigate or prosecute any alcohol or drug abuse patient.[facility] HospitalIn the event this information is protected by the Federal Confidentiality of Alcohol and Drug Abuse Patient Records regulations: The Federal rules restrict any use of the information to criminally investigate or prosecute any alcohol or drug abuse patient.[facility] HospitalIn the event this information is protected by the Federal Confidentiality of Alcohol and Drug Abuse Patient Records regulations: The Federal rules restrict any use of the information to criminally investigate or prosecute any alcohol or drug abuse patient.[facility] HospitalIn the event this information is protected by the Federal Confidentiality of Alcohol and Drug Abuse Patient Records regulations: The Federal rules restrict any use of the information to criminally investigate or prosecute any alcohol or drug abuse patient.[facility] HospitalIn the event this information is protected by the Federal Confidentiality of Alcohol and Drug Abuse Patient Records regulations: The Federal rules restrict any use of the information to criminally investigate or prosecute any alcohol or drug abuse patient.[facility] HospitalIn the event this information is protected by the Federal Confidentiality of Alcohol and Drug Abuse Patient Records regulations: The Federal rules restrict any use of the information to criminally investigate or prosecute any alcohol or drug abuse patient.[facility] FOR RECORDS PERTAINING TO PATIENTS WHO [...] BE BASED ON THE PRIMARY CLINICAL RECORDS. [facility]. provides no warranty or guarantee of the accuracy or completeness of information in this document.
[2023-03-28 06:12] LABS: Complement C3, Serum 140 mg/dL (82-167); Complement C4, Serum 30 mg/dL (12-38)
[2023-03-28 08:12] LABS: HBsAg Screen Negative (Negative); HCV Ab Non Reactive (Non Reactive); Hep A Ab, IgM Negative (Negative); Hep B Core Ab, IgM Negative (Negative)
[2023-03-28 12:10] LABS: Angiotensin-Converting Enzyme 43 U/L (14-82)
[2023-03-29 14:09] LABS: Antinuclear Antibodies, IFA Positive (.)
== END 2023-03-25 11:35 | disposition home or self-care (01) ==
PROVIDERS: PCP Family Medicine; Visit Provider Psychiatry & Neurology Neurology
DX: G62.9 Polyneuropathy, unspecified (principal); R79.89 Other specified abnormal findings of blood chemistry; G60.9 Hereditary and idiopathic neuropathy, unspecified; Z11.3 Encounter for screening for infections with a predominantly sexual mode of transmission; E53.1 Pyridoxine deficiency; I70.91 Generalized atherosclerosis; D51.3 Other dietary vitamin B12 deficiency anemia; M79.10 Myalgia, unspecified site; E78.5 Hyperlipidemia, unspecified
CPT/HCPCS: 36415; 80074; 82164; 82607; 82746; 84207; 86038; 86160

== ENCOUNTER 2023-05-06 15:38 | Emergency (ER) | payer MEDICARE, BC, SELFPAY ==
[2023-05-06] VITALS (11 sets, daily range): BP systolic 131–146; BP diastolic 92–98; PULSE 88–105; RESP 12–27; TEMP 37.1; O2SAT 92–99; BMI 31.5
--- OUTSIDE RECORDS SUMMARY | 2023-05-06 15:47 | XMS_ITS | CCD ---
Author Organization [facility] Care Team Providers Care 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 Name Role Phone Monika Lehman Unavailable Unavailable Unavailable MD Monika Lehman Primary Care Provider [phone] MD Nick Acosta Attending Provider MD Daniel Ma Attending Provider Nick Acosta Unavailable Monika Lehman Primary Care Provider Aman Quiroz MD Unavailable Monika Lehman Primary Care Provider Aman Quiroz MD Unavailable MD Monika Lehman Primary Care Provider MD Chucho Saldaña Emergency Provider [phone] Monika Lehman Primary Care Unavailable Chucho Saldaña [...] DR TESS Valente Admitting Unavailable MARANDA OSEGUERA Consulting Unavailable FALLON, DR FRANK Primary Care Unavailable JUAN, DR RONDA Washington Attending Unavailable HEMMER, DR [...] CARMEN Consulting Unavailable FILIPPONE, DELISA Consulting Unavailable Saldaña, Bubba Romero Attending Wanda Saldaña, Ms. Seema Romero Referring Unavai lable Fallon, [facility] Unavaila ble Charmaine, Daniel Attending Unavailable Charmaine, Daniel Referring Unavailable Fallon, [facility] Unavaila ble Charmaine, Daniel Attending Unavailable Charmaine, Daniel Referring Unavailable Fallon, [facility] Unavaila ble Piotr, Ms. Seema Romero Attending Wanda Saldaña, Ms. Seema Romero Referring Unavai lable Fallon, [facility]. [facility] Unavaila ble [place] [facility] GORGUN, I FEI Attending Un[facility] TAZ TEJEDA Referring Unavailable NIKO NIETO Attending Unavailab le [facility] Un[facility] Unavailable GORGUN, I FEI Admitting Unavailable GORGUN, I FEI Attending Unavailable TAZ TEJEDA Referring [facility]available TAZ TEJEDA Referring Unavailable PRECIOUS ROGERS Attending [facility] MELODY ROSADO Attending Unavailable [facility] TAZ TEJEDA Referring Unavailable Debbi Casanova Attending Unavailable [facility] [place], [facility] Primary Care Unavailable MELODY ROSADO Attending Unavailable [facility] Unavailable GORGUN, I FEI Referring Unavailable GORGUN, I FEI Referring Unavailable FALLON, RUGEN JASONALAY Primary Care Unavailable GORGUN, I FEI Referring Unavailable FALLON, RUGEN MABALAY Primary Care Unavailable GORGUN, I FEI Referring Unavailable FALLON, RUGEN MABALAY Primary Care Unavailable Monika Lehman MD Primary Care Provider [phone] Monika Lehman MD Primary Care Provider ELINOR RAMAN Attending Unavailable FALLON, RUGEN TOMASAY Primary Care Unavailable DANIEL MA Attending Unavailable FALLON, RUGEN MABALAY Primary Care Unavailable Monika Lehman MD Unavailable Monika Lehman MD Primary Care Provider ALEAH PIERCE Attending Unavailable BEJ, AMAN Wood Referring Unavailable STAN, ALEAH Darden Attending Unavailable BEJ, AMNA Wood Referring Unavailable STANALEAH Attending Unavailable BEJ, AMAN Wood Referring Unavailable STAN, ALEAH Darden Attending Unavailable BEJ, AMAN Wood Referring Unavailable STAN, ALEAH Darden Attending Unavailable BEJ, AMAN Wood Referring Unavailable FALLON, MONIKA Washington Attending Unavailable BEJ, AMAN Wood Attending Unavailable FALLONMONIKA Attending Unavailable STAN, ALEAH Darden Attending Unavailable BEJ, AMAN Wood Referring Unavailable FALLONMONIKA Attending Unavailable Allergies Allergy Classification Reported Allergen(s) Allergy Type Date of Onset Reaction(s) Facility (20 sources) Ciprofloxacin; Translations: [ciprofloxacin] Drug Allergy 1 Unknown, Other [facility] (20 sources) metroNIDAZOLE; Translations: [Flagyl] Drug Allergy 7 Unknown, Other [facility] (11 sources) Penicillins; Translations: [Penicillins] Allergy to drug (finding) 6 Other [facility] [place] [facility]ository (4 sources) metroNIDAZOLE; Translations: [metronidazole] Drug Allergy 7 [facility] (20 sources) Vancomycin; Translations: [vancomycin] Drug Allergy 2 [facility] (1 source) Ciprofloxacin Drug Allergy 2 [facility] Repository (20 sources) levoFLOXacin; Translations: [LEVOFLOXACIN] Drug Allergy 6 Unknown [facility] (20 sources) Penicillins Drug Allergy 6 Unknown, Other: See Comments, Other [facility] (20 sources) Seasonal allergy; Translations: [SEASONAL ALLERGIES] Allergy to substance 1 Unknown [facility] (20 sources) Soy protein; Translations: [soy] Drug Allergy 6 Unknown [facility] (1 source) Amoxicillin / Clavulanate Drug Allergy 6 [facility] Repository (1 source) Ciprofloxacin Drug Allergy 7 [facility] Repository (1 source) levoFLOXacin Drug Allergy 6 [facility] Rep[facility] (1 source) metroNIDAZOLE Drug Allergy 7 [facility] Repository (1 source) Misc-Food; Translations: [Misc-Food] Food allergy (disorder) 6 [facility] Repository (2 sources) Penicillins Drug Allergy 6 Unknown, Other [facility] Healthcare (2 sources) Octacosanol Drug Allergy 1 Unknown [facility] Healthcare Medications Current Medications Medication Drug Class(es) Dates Sig (Normalized) Sig (Original) ALPRAZolam 1 mg oral tablet (20 sources) Benzodiazepine Start: 02-27-2023 take 1 tablet by mouth in the morning ALPRAZolam (Xanax) 1 MG tablet Indications: Adjustment disorder with anxiety (CMS/HCC) TAKE 1 TABLET BY MOUTH IN THE MORNING AND 1 TABLET BEFORE BEDTIME 60 tablet 0 02/27/2023 Active Start: 11-17-2021 take 1 mg by mouth [...] 1 mg by mouth a s needed. amLODIPine 10 mg oral tablet (20 sources) Dihydropyridine Calcium Channel Barry Start: take 1 tablet by mouth in the morning amLODIPine (Norvasc) 10 MG tablet Take 10 mg by mouth in the morning. 0 06/21/2022 Active Start: 05-03-2021 take 1 tablet by dickson th once daily amLODIPine (NORVASC) 5 mg tablet Take 5 mg by mouth once daily. 0 10/27/2021 Active amLODIPine Besyl ate Active Comment on above: Take 5 mg by mouth o nce daily. aspirin 81 mg delayed release oral tablet (2 sources) Platelet Aggregation Inhibitor, Nonsteroidal Anti-inflammatory Drug take 1 tablet by mouth once daily aspirin 81 mg EC tablet Take 1 tablet (81 mg) by mouth once daily. 0 Active B Complex Vitamins (VITAMIN B COMPLEX 100 IJ) (2 sources) B Complex Vitami ns (VITAMIN B COMPLEX 100 IJ) Take 100 Int'l Units by mouth in the morning. 0 Active b complex vitamins (Vitamins B Complex) capsule (2 sources) take 1 capsule by mouth once daily b complex vitamins (Vitamins B Complex) capsule Take 1 capsule by mouth once daily. 0 Active B Complex-Folic Acid (vitamin-B complex) split tablet (2 sources) B Complex-Folic Acid (vitamin-B complex) split tablet 1 half tablet 3 (three) times a week. 0 Active bisacodyl 5 mg delayed release oral tablet (4 sources) Stimulant Laxative Start: 023 End: 023 Bisacodyl (DULCOLAX) 5 mg tab Use as [...] twenty-four hours as needed cetirizine (ZyrTEC) 10 MG tablet 10 mg Daily as needed for allergies. 0 Active Comment on above: Take by mouth as nee ded. chlorthalidone 25 mg oral tablet (2 sources) Thiazide-like Diuretic take 1 tablet by mouth every twelve hours Chlorthalidone 25 MG 1 tablet in the morning with food Orally bid Active docusate sodium 100 mg oral capsule (13 sources) Start: 023 take 1 capsule by mouth twice daily as needed for constipation docusate sodium (Colace) 100 MG capsule Indications: Chronic idiopathic constipation Take 1 capsule (100 mg) by mouth 2 (two) times a day as needed for constipation. 200 capsule 3 08/01/2022 Active take 1 tablet by dickson th twice daily as needed docusate sodium (Colace) 100 mg tablet Take 1 tablet (100 mg) by mouth 2 times a day as needed. 0 Active take 1 tablet by mouth once antonio y Docusate Sodium 100 MG Oral Tablet Take 1 tablet daily Quantity: 0 Refills: 0 Ordered: 03-May-2021 DO Active escitalopram 20 mg oral tablet (2 sources) Serotonin Reuptake Inhibitor Start: 01-23-2023 take 1 tablet by mouth in the morning escitalopram (Lexapro) 20 MG tablet Indications: Reactive depression (CMS/HCC) Take 1 tablet (20 mg) by mouth in the morning. 90 tablet 1 01/23/2023 Active folic acid 1 mg oral tablet (20 sources) Start: 11-08-2021 take 1 tablet by mouth in the morning folic acid (Folvite) 1 MG tablet Indications: Nonalcoholic fatty liver disease without nonalcoholic steatohepatitis (BISWAS) Take 1 tablet (1,000 mcg) by mouth in the morning. 100 tablet 3 12/22/2022 Active take 0.5 tablet by mouth once da poncho Folic Acid 1 MG Oral Tablet take 1/2 tablet daily Quantity: 0 Refills: 0 Ordered: 03-May-2021 DO Active Comment on above: once daily. furosemide 20 mg oral tablet (10 sources) Loop Diuretic Start: 2 take 20 mg by mouth once daily Furosemide Active 20 MG PO Daily November 17, 2021 12:00am gabapentin 600 mg oral tablet (20 sources) Anti-epileptic Agent Start: 4 take 1 tablet by mouth at bedtime gabapentin (Neurontin) 600 MG tablet Indications: Polyneuropathy , Peripheral polyneuropathy TAKE 1 TAB BY MOUTH IN THE MORNING, EVENING AND BEFORE BEDTIME 270 tablet 2 02/18/2023 Active Start: 11-17-2021 gabapentin (NE URONTIN) 600 mg tablet twice daily. 0 11/17/2021 Active Start: 11-17-2021 Gabapentin Act patrizia 600 MG PO Twice daily November 17, 2021 12:00am Takes 2 at a time if going to be walking a lot. Gabapentin 100 M G as directed Orally Active take [address] [facility] every twenty-four hours Gabapentin 400 MG 1 tablet Orally Once a day for 30 Active Comment on above: twice daily. Gatorade Sports Drink (4 sources) Start: End: Gatorade Sports Drink Use as directed for Miralax / Gatorade Bowel Prep Kit 0 02/24/2022 02/25/2022 Active Comment on above: Use as directed for Miralax / Gatorade Bowel Prep Kit hydrocortisone acetate 10 mg/ml topical cream (2 sources) Corticosteroid Start: Hydrocortisone Acetate 1 % cream Apply 1 application topically 1 (one) time each day at the same time. 0 09/21/2021 Active ipratropium bromide 0.042 mg/actuat metered dose nasal spray (2 sources) Anticholinergic take 2 spray(s) nasal route every eight hours ipratropium (Atrovent) 0.06 % nasal spray Administer 2 sprays into each nostril every 8 (eight) hours. 0 Active Magnesium (4 sources) magnesium 250 MG tablet 1 (one) time each day at the same time. 0 Active Magnesium 400 MG as directed Orally Not-Taking omeprazole 40 mg delayed release oral capsule (20 sources) Proton Pump Inhibitor Start: 11-17-2021 take 1 capsule by mouth once daily omeprazole (PriLOSEC) [address] capsule Indications: Gastroesophageal reflux disease without esophagitis TAKE 1 CAPSULE BY MOUTH EVERY DAY 100 capsule 3 10/20/2022 Active take 40 mg by mouth once daily O MEPRAZOLE ORAL Take 40 mg by mouth once daily. 0 Active Comment on above: Take 40 mg by mouth once daily. polyethylene glycol 3350 72328 mg powder for oral solution (4 sources) Osmotic Laxative Start: 02-24-19 End: 02-25-19 polyethylene glycol 3350 (MIRALAX, GLYCOLAX) 17 gram/dose powder Use as directed for Miralax / Gatorade Bowel Prep Kit 238 g 0 02/24/2022 02/25/2022 Active Comment on above: Use as directed for Miralax / Gatorade Bowel Prep Kit microencapsulated potassium chloride 20 meq extended release oral tablet (20 sources) Start: 02-27-19 End: 02-26-19 take 1 tablet by mouth in the morning potassium chloride CR (KLOR-CON) 20 MEQ ER tablet Indications: Hypokalemia Take 1 tablet (20 mEq) by mouth in the morning and 1 tablet (20 mEq) before bedtime. 180 tablet 3 02/27/2023 02/27/2024 Active Start: 11-17-2021 take 20 mEq by mouth once antonio y Potassium Chloride Active 20 MEQ PO Daily [...] Take 20 mEq by mouth twice daily. Probiotic Product (PROBIOTIC BLEND PO) (2 sources) take 1 capsule by mouth in the morning Probiotic Product (PROBIOTIC BLEND PO) Take 1 capsule by mouth in the morning. 0 Active traMADol hydrochloride 50 mg oral tablet (20 sources) Opioid Agonist Start: take 1 tablet by mouth every six hours for pain traMADol (Ultram) 50 MG tablet Indications: Neuralgia and neuritis, unspecified , Spondylosis without myelopathy or radiculopathy, lumbar region Take 1 tablet (50 mg) by mouth every 6 (six) hours if needed for moderate pain 120 tablet 0 02/16/2023 Active Start: 12-23-2021 traMADol (ULTR AM) 50 mg tablet as needed. 0 12/23/2021 [...] DO Active Comment on above: as needed. Completed/Discontinued Medications Medication Drug Class(es) Dates Sig (Normalized) Sig (Original) Astelin 137 MCG/SPRAY (2 sources) take 1 puff(s) nasal route twice daily Astelin 137 MCG/SPRAY 1 puff in each nostril Nasally Twice a day Not-Taking bifidobacterium animalis [id number] unt / lactobacillus acidophilus [id number] unt oral capsule (3 sources) Probiotic CAPS TAKE 1 CAPSULE Daily Quantity: 0 Refills: 0 [...] oral tablet (3 sources) Anticholinergic Start: 11-24-19 22 take 1 tablet by mouth four times [...] 2 puffs Inhalation Once a day Not-Taking ibuprofen 800 mg oral tablet (5 sources) Nonsteroidal Anti-inflammatory Drug take 1 tablet by mouth twice daily as needed Ibuprofen 800 MG Oral Tablet TAKE 1 TABLET TWICE DAILY NEEDED. Quantity: 0 Refills: 0 Ordered: 03-May-2021 DO Active iv contrast (will be provided with radiology test) (3 sources) Start: 04-20-19 End: 04-21-19 iv contrast (will be provided with radiology [...] 90 Active Comment on above: once daily. montelukast 10 mg oral tablet (2 sources) [...] 10 mg oral tablet (1 source) Start: 2 predniSONE 10 MG Oral Tablet TAKE 4 [...] AT BEDTIME NEEDED Oral for 30 Not-Taking Vitamin B Complex (20 sources) vitamin B comple x (B COMPLEX ORAL) Take by mouth. 0 Active Comment on above: Take by mouth. Vitamin B Complex CAPS (5 sources) Vitamin B Comple x CAPS one capsule daily Quantity: 0 Refills: 0 Ordered: 20-Jul-2021 DO Active Vitamin B Complex Oral Capsule (1 source) take 1 capsule by mouth once daily Vitamin B Complex Oral Capsule one capsule daily Quantity: 0 Refills: 0 Ordered: 20-Jul-2021 DO Active Vitamin D3 25 MCG (1000 UT) (1 source) take 1 tablet by mouth once daily Vitamin D3 25 MCG (1000 UT) 1 tablet Orally Once a day Not-Taking Zinc (2 sources) take 1 tablet by mouth once daily Zinc 30 MG 1 tablet Orally Once a day Not-Taking Problems Active Problems Problem Classification Problem Date Documented Da te Episodic/Chronic Acute cerebrovascular disease (20 sources) Cerebrovascular accident; Translations: [Cerebral infarction, unspecified] Onset: 2 Chronic Adjustment disorders (2 sources) Adjustment disorder with anxious mood; Translations: [Adjustment disorder with anxiety] Onset: 6 08-22-2022 Chronic Anxiety disorders (20 sources) Mixed anxiety and depressive disorder; Translations: [Anxiety disorder, unspecified] Onset: 3 02-24-2022 Chronic Aortic; peripheral; and visceral artery aneurysms (20 sources) Abdominal aortic aneurysm; Translations: [Abdominal aneurysm without mention of rupture] Onset: 6 Resolved: 2 Chronic Cardiac dysrhythmias (16 sources) Ventricular premature beats; Translations: [Other premature beats] Onset: 3 11-21-2022 Chronic Cardiac dysrhythmias (9 sources) Sinus bradycardia; Translations: [Other specified cardiac dysrhythmias] Episodic Chronic kidney disease (20 sources) Chronic kidney disease stage 3; Translations: [Chronic kidney disease, Stage III (moderate)] Onset: 8 Resolved: 3 Chronic Chronic kidney disease (1 source) Chronic kidney disease; Translations: [N18.30 - Chronic kidney disease, stage 3 unspecified] Onset: 2 Chronic obstructive pulmonary disease and bronchiectasis (2 sources) Chronic obstructive lung disease; Translations: [Chronic obstructive pulmonary disease, unspecified] Onset: 8 08-22-2022 Chronic Conditions associated with dizziness or vertigo (19 sources) Dizziness; Translations: [Dizziness and giddiness] Onset: 0 11-20-2022 Episodic Delirium, dementia, and amnestic and other cognitive disorders (2 sources) Dementia; Translations: [Unspecified dementia without behavioral disturbance] Onset: 1 08-22-2022 Chronic Disorders of lipid metabolism (2 sources) Dyslipidemia; Translations: [Hyperlipidemia, unspecified] Onset: 0 08-22-2022 Chronic E Codes: Fall (2 sources) Fall in home; Translations: [Unspecified fall, initial encounter] Onset: 3 12-26-2022 Episodic Esophageal disorders (20 sources) Gastroesophageal reflux disease without esophagitis; Translations: [Gastro-esophageal reflux disease without esophagitis] Onset: 1 Chronic Essential hypertension (20 sources) Essential hypertension; Translations: [Unspecified essential hypertension] Onset: 5 Chronic Heart valve disorders (2 sources) Aortic valve sclerosis; 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] Onset: 9 08-22-2022 Chronic Hepatitis (2 sources) Nonalcoholic steatohepatitis; Translations: [Nonalcoholic steatohepatitis (BISWAS)] Chronic Mood disorders (2 sources) Reactive depression (situational); Translations: [Major depressive disorder, single episode, unspecified] Onset: 3 12-26-2022 Chronic Mood disorders (1 source) Mood disorders; Translations: [Anxiety and depression] Onset: 3 Nausea and vomiting (1 source) Nausea; Translations: [Nausea] Episodic Nutritional deficiencies (2 sources) Vitamin D deficiency; Translations: [Vitamin D deficiency, unspecified] Onset: 3 08-22-2022 Chronic Occlusion or stenosis of precerebral arteries (4 sources) Bilateral stenosis of carotid arteries; Translations: [Occlusion and stenosis of bilateral carotid arteries] Onset: 1 Resolved: 3 10-07-2022 Chronic Other aftercare (1 source) Follow-up status; Translations: [...] Translations: [Benign neoplasm of rectum] Episodic Other connective tissue disease (3 sources) Spasm of cervical paraspinous muscle; Translations: [Other muscle spasm] Onset: 3 08-08-2022 Episodic Other ear and sense organ disorders (2 sources) Hearing loss; Translations: [Unspecified hearing loss, unspecified ear] Onset: 0 08-22-2022 Chronic Other gastrointestinal disorders (4 sources) Irritable bowel syndrome with diarrhea; Translations: [IRRITABLE BOWEL SYND W/DIARRHEA] Onset: 2 Chronic Other gastrointestinal disorders (2 sources) Irritable bowel syndrome; Translations: [Irritable bowel syndrome without diarrhea] Onset: 3 08-22-2022 Chronic Other gastrointestinal disorders (4 sources) Diarrhea; Translations: [Diarrhea, unspecified] Episodic Other liver diseases (2 sources) Steatosis of liver; Translations: [Fatty (change of) liver, not elsewhere classified] Onset: 1 08-22-2022 Chronic Other liver diseases (2 sources) Non-alcoholic fatty liver disease without non-alcoholic steatohepatitis; Translations: [Fatty (change of) liver, not elsewhere classified] Onset: 1 08-22-2022 Chronic Other nervous system disorders (3 sources) Polyneuropathy; Translations: [Polyneuropathy, unspecified] Onset: 0 10-11-2022 Chronic Other nervous system disorders (2 sources) Chronic pain; Translations: [Other chronic pain] Onset: 7 08-22-2022 Chronic Other nervous system disorders (1 source) Numbness; Translations: [Anesthesia of skin] 03-24-2023 Episodic Other nervous system disorders (3 sources) Unsteady when standing; Translations: [Unsteadiness on feet] Onset: 3 08-08-2022 Episodic Other nutritional; endocrine; and metabolic disorders (13 sources) Obesity; Translations: [Obesity, unspecified] Onset: 3 11-20-2022 Chronic Other upper respiratory disease (2 sources) Seasonal allergy; Translations: [Other seasonal allergic rhinitis] Onset: 3 08-22-2022 Chronic Other upper respiratory disease (2 sources) Chronic rhinitis; Translations: [Chronic rhinitis] Onset: 1 08-22-2022 Chronic Peripheral and visceral atherosclerosis (2 sources) Generalized atherosclerosis; Translations: [Generalized atherosclerosis] Onset: 0 08-22-2022 Chronic Residual codes; unclassified (1 source) Swelling - edema - symptom; Translations: [Edema] Episodic Spondylosis; intervertebral disc disorders; other back problems (7 sources) Spondylosis without myelopathy or radiculopathy, lumbar region; Translations: [Other intervertebral disc degeneration, lumbar region] Onset: 1 Chronic Thyroid disorders (20 sources) Hypothyroidism; Translations: [Hypothyroidism, unspecified] Onset: 6 12-06-2021 Chronic Unclassified (1 source) I71.4 - [...] intubation, initial encounter] Onset: 02-24-2022 02-24-2022 Episodic Fluid and electrolyte disorders (15 sources) Hypokalemia; Translations: [Hypopotassemia] Onset: 10-21-2021 11-17-2021 Episodic Neoplasms of unspecified nature or uncertain behavior (3 sources) Neoplasm of uncertain behavior of colon; Translations: [Neoplasm of uncertain behavior of colon] Onset: 02-24-2022 Episodic Nutritional deficiencies (2 sources) Cobalamin deficiency; Translations: [Deficiency of other specified B group vitamins] Onset: 10-07-2022 10-07-2022 Episodic Other aftercare (1 source) Other watermelon inspector (current) drug therapy; Translations: [OTH DRESSMAKER OR TAILOR CURRENT DRUG THERAPY] Onset: 10-21-2021 Episodic Other aftercare (1 source) Encounter for follow-up examination after completed treatment for conditions other than malignant neoplasm; Translations: [Follow-up exam] Onset: 04-20-2022 Episodic Other connective tissue disease (4 sources) Pain in left arm; Translations: [PAIN IN LEFT ARM] Onset: 09-13-2021 Episodic Other connective tissue disease (2 sources) Neurogenic pain; Translations: [Neuralgia and neuritis, unspecified] Onset: 10-07-2022 10-07-2022 Episodic Other gastrointestinal disorders (1 source) Diarrhea, unspecified; Translations: [Diarrhea, unspecified type] Onset: 10-24-2022 Episodic Other gastrointestinal disorders (2 sources) Constipation; Translations: [Constipation, unspecified] Onset: 08-01-2022 08-01-2022 Episodic Other nervous system disorders (2 sources) White matter disease; Translations: [White matter disease, unspecified] Onset: 08-22-2022 08-22-2022 Episodic Other nutritional; endocrine; and metabolic disorders (7 sources) Overweight in adulthood with body mass index of 25 or more but less than 30; Translations: [Overweight] Onset: 11-20-2022 11-20-2022 Episodic Otitis media and related conditions (2 sources) Dysfunction of bilateral eustachian tubes; Translations: [Unspecified Eustachian tube disorder, bilateral] Onset: 03-02-2015 08-22-2022 Episodic Residual codes; unclassified (12 sources) Edema; Translations: [Edema] Onset: 11-20-2022 11-20-2022 Episodic Residual codes; unclassified (20 sources) History [...] [History of difficult intubation] Onset: 02-24-2022 Episodic Screening and history of mental health and substance abuse codes (20 sources) Ex-smoker; Translations: [Personal history of tobacco use] Onset: 02-24-2022 02-24-2022 Episodic Spondylosis; intervertebral disc disorders; other back problems (6 sources) Neck pain; Translations: [Cervicalgia] Onset: 03-03-2020 08-08-2022 Episodic Unclassified (2 sources) Onset: 11-21-2022 11-21-2022 Unclassified (1 source) Pararenal abdominal aortic aneurysm, 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 Author Type: Anesthesiologist Type: Anesthesia Postprocedure Evaluation Filed: 10/25/2022 7:22 PM Note Text: POST ANESTHESIA EVALUATION NOTE : 1950 Procedure Summary Date: 10/25/22 Room / Location: Gastroenterology Anesthesia Start: 1030 Anesthesia Stop: 111 Procedure: COLONOSCOPY DIAGNOSTIC Diagnosis: Abdominal pain, unspecified [...] with this procedure. Documented by Iliana Montoya APRN.PROFESSIONAL BASS FISHER 10/25/2022 11:15 AM EDT SIGNATURE: Precious Benito MD PATIENT NAME: Dianelys Womack DATE: October 25, 2022 TIME: 7:22 PM CSN: [id number] [facility] ANES PRE-OPon 10-25-2022 ANES PRE-OP HNO ID: [id number] Author: Precious Rogers MD Service: ? Author Type: Anesthesiologist Type: Anesthesia Preprocedure Evaluation Filed: 10/25/2022 10:40 AM Note Text: ANESTHESIOLOGY DAY OF SURGERY NOTE : 1950 Procedure Information Anesthesia Start Date/Time: 10/25/22 1030 Scheduled providers: Kenton Kapadia MD; Iliana Montoya APRN.PROFESSIONAL BASS FISHER; Precious Rogers MD Procedure: COLONOSCOPY DIAGNOSTIC Location: [...] and consent discussed: yes. Patient / Responsible Libertarian agrees to proceed: yes Patient / Surrogate agrees to blood products: Yes Potential Anesthesia issues that may suggest increased risk of complications or contraindication to planned procedure: potential difficult intubation. (if needed) Vitals Value Taken Time BP 155/88 10/25/22952 Pulse 101 10/25/22952 Resp 20 10/25/22952 Temp SpO2 98 % 10/25/22952 Outpatient Medications as of 10/25/2022 Medication Sig [...] October 25, 2022 TIME: 10:37 AM CSN: [id number] [facility] COLONOSCOPY DIAG[facility]STICon [facility] Colonoscopyon 10-25-2022 Colonoscopy Q3 Patient Name: [...] for surveillance. Procedure Code(s): --- Professional --- 67023, Colonoscopy, flexible; with removal of tumor(s), polyp(s), or other lesion(s) by snare technique Diagnosis Code(s): --- Professional --- Z12.11, Encounter for screening for malignant neoplasm of colon Z86.010, Personal history of colonic polyps Z98.890, Other specified postprocedural states D12.2, Benign neoplasm of ascending colon CPT copyright 2020 [employer]. All rights reserved. Attending Participation: I personally performed the entire procedure. Scope In: 10:37:51 AM Scope Out: 11:08:30 AM MD Kenton Rowe MD 10/25/2022 11:34:00 AM This report has been signed electronically by Kenton Kapadia MD Number of Addenda: 0 Note Initiated On: 10/25/2022 10:08 AM [facility] NURSING PROGon 10-25-2022 NURSING PROG HNO ID: [id number] Author: Stephanie Benavides RN Service: Nursing Author Type: Registered Nurse Type: [...] Electronically Signed By: Stephanie Benavides RN [facility] NURSING PROG HNO ID: [id number] Author: Corina Alcaraz LPN Service: Gastroenterology Author [...] Corina Alcaraz LPN In Department: GASTROENTEROLOGY [facility] SURGICAL PATHOLOGYon 023 CASE REPORT [facility] Comment on above: Order Comment: Magnus montoya Type: TISSUE SPECIMENOrdering Facility: [facility] Address: [address] [place] [address] Result Comment: Surg ica Pathology Report Case: [id number] Authorizing Provider: Kenton Kapadia MD Collected: 10/25/2022 11:06 AM Ordering Location: Gastroenterology Received: 10/25/2022 06:28 PM Pathologist: Vishnu Carlton MD Specimen: ASCENDING COLON POLYP Performed By: #### S ####[facility]ORYCLIA [id number] [address] LABCLIA [id number] [address] FINAL DIAGNOSIS [facility] Comment on above: Order Comment: Magnus montoya Type: TISSUE SPECIMENOrdering Facility: [facility] Address: [address] [place], [place] [address] Result Comment: A. A scending colon, polypectomy: - Fragments of tubular adenoma. Performed By: #### S ####[facility]ORYCLIA [id number] [address] LABCLIA [id number] [address] FINAL PERFORMING LAB Normal [facility] Comment on above: Order Comment: Speci men Type: TISSUE SPECIMENOrdering Facility: [facility] Address: [address] [address] Result Comment: Diag nostic interpretation performed at [facility], [address] [place] [address] CLIA# [id number] Patient Intake Coordinator: Gloria Sanz M.D. Performed By: #### S ####[facility]ORATORYCLIA [id number] [address] LABCLIA [id number] [address] GROSS DESCRIPTION Normal [facility] Comment on above: Order Comment: Speci men Type: TISSUE SPECIMENOrdering Facility: [facility] Address: [address] [address] Result Comment: A. A SCENDING COLON POLYP Received in formalin are multiple pieces of pascual, soft tissue aggregating to 1.5 x 0.2 x 0.2 cm. Totally submitted in one cassette. Gross examination performed at [facility], [address] [place] [address] KK October 26, 2022 12:06 AM Performed By: #### S ####[facility]ORATORYCLIA [id number] [address] LABCLIA [id number] [address] [place] CNPKaelyn 10-18-2022 CNPN Telephone (GASTALISHA) ---- DIANELYS WOMACK ([id number]) 1950 F Date Time Provider Department 10/18/22 SWATHI VERDUZCO GASTPR During your visit today, we recorded the following information about you: Swathi Verduzco RN 10/18/2022 9:46 AM Signed Attempted to reach the patient at the contact number that they provided [phone] (home) . 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 left informing the patient/patient screening representative they must have a responsible adult [...] Number to call with questions or concerns [phone] Number to call to cancel their procedure [phone] Swathi Verduzco RN Allergies As of Date: [...] Status:Closed by SWATHI VERDUZCO on 10/18/22 [facility] BASIC METABOLIC PANELon 08- BUN/CREATININE RATIO SEE NOTE: Normal 6-22 Ques t Diagnostics Comment on above: Result Comment: Not Reported: BUN and Creatinine are within reference range. Performed By: #### 1 6734, 2019, 36618 #### [facility] [address], [address] [place] [phone] Aircraft Structural Repair Mechanic: Doug Trejo MD Chloride [Moles/Vol] 105 mmol/L Normal 98-110 Ques t [facility] Comment on above: Performed By: #### 1 0978, 0872, 56594 #### [facility] [address], [address] [place] [phone] [employer] Structural Repair Mechanic: Doug Trejo MD CO2 [Moles/Vol] 30 mmol/L Normal 20-32 [facility] Comment on above: Performed By: #### 1 7306, 8837, 37097 #### [facility] [address] [place] [address] [employer] Structural Repair Mechanic: Doug Trejo MD Creatinine [Mass/Vol] 0.89 mg/dL Normal 0.60-1.[address] [facility] Comment on above: Performed By: #### 1 7306, 8837, 01192 #### [facility] [place] [address] [employer] Structural Repair Mechanic: Doug Trejo MD GFR/1.73 sq M.predicted among non-blacks MDRD (S/P/Bld) [Vol rate/Area] 69 mL/min/{1.73_m2} Normal > OR = 60 [facility] Comment on above: Performed By: #### 1 7306, 8837, 17437 #### [facility] [address] [place] [address] [employer] Structural Repair Mechanic: Doug Trejo MD Glucose [Mass/Vol] 102 mg/dL High 65-99 [facility] Comment on above: Result Comment: Fasting reference interval For someone without known diabetes, a glucose value between 100 and 125 mg/dL is consistent with prediabetes and should be confirmed with a follow-up test. Performed By: #### 1 7306, 8837, 88166 #### [facility] [place] [address] [employer] Structural Repair Mechanic: Doug Trejo MD Potassium [Moles/Vol] 3.9 mmol/L Normal 3.5-5.[address] [facility] Comment on above: Performed By: #### 1 7306, 8837, 56540 #### [facility] [place] [address] [employer] Structural Repair Mechanic: Doug Trejo MD Sodium [Moles/Vol] 142 mmol/L Normal 135-146 [facility] Comment on above: Performed By: #### 1 7306, 8837, 74433 #### [facility] [place] [address] [employer] Structural Repair Mechanic: Doug Trejo MD Urea nitrogen [Mass/Vol] 16 mg/dL Normal 7-25 [facility] Comment on above: Performed By: #### 1 7306, 8837, 00367 #### [facility] [place] [address] [employer] Structural Repair Mechanic: Doug Trejo MD PTH, INTACT AND CALCIUMon Calcium [Mass/Vol] 9.7 mg/dL Normal 8.6-10.4 [facility] Comment on above: Order Comment: FASTI NG:YES FASTING: YES Performed By: #### 1 7306, 8837, 93310 #### [facility] [place] [address] [employer] Structural Repair Mechanic: Doug Trejo MD PARATHYROID HORMONE, INTACT 62 [...] High Performed By: #### 1 7306, 8837, 26863 #### [facility] [address] [place] [address] [employer] Structural Repair Mechanic: Doug Trejo MD VITAMIN D,25-OH,TOTAL,IAon 0 09-24-2022 [...] D, (D2,D3), LC/MS/MS is recommended: order code 55436 (patients >2yrs). See Note 1 Note 1 For additional information, please refer to http://education.Solmentum/faq/ZJW115 (This link is being provided for informational/ educational purposes only.) Performed By: #### 1 7306, 8837, 14062 #### [facility] [address] [facility], [address] [place] [address] [employer] Structural Repair Mechanic: Doug Trejo MD Established Visit (Nephrolog y)on 09-20-2022 Established Visit (Nephrology) Diagnoses/Problems CKD (chronic kidney disease), stage III (585.3) (N18.30) Essential hypertension (401.9) (I10) Orders CKD (chronic kidney disease), stage III, Essential hypertension Basic Metabolic Panel; Status:Active; Requested for:84Hnn6897; Parathormone Intact, Serum; Status:Active; Requested for:44Ecg4248; Vitamin D 25-Hydroxy; Status:Active; Requested for:07Oma9410; Essential hypertension Renew: amLODIPine Besylate 10 MG [...] daily Vitals Vital Signs Recorded: 20Sep2022 12:51PM Wxlleupijqf39.2 F Heart Rate90 Xbwowutz479, RUE, Sitting Akbrribrc250, RUE, Sitting Height5 ft 3 in Cdsuqj268 lb BMI Aaadaecwkt30.23 kg/m2 BSA Calculated1.78 Physical Exam General: The [...] Moves extremities. (more content not included)... Normal Rev Cardiovasc Arrhythmia Result son 05-12-2022 Cardiovasc Arrhythmia Results Reason For Visit Reason for Visit: Holter Monitor: DIANELYS is here for the application of a 24 hour Holter monitor. Ordering Physician: Seema Jim NP Diagnosis: PVC NO equipment agreement signed. DIANELYS understands monitor is to be returned on: 05/13/2022 Monitor number [id number] applied. Holter monitor returned and downloaded. 05/18/2022 [...] Appointments Date/TimeProviderSp ecialtySite 09/20/2022 12:50 PMDaniel Ma MDNephrology[address] [facility] [address] Dominguez 3 DO 05/08/2023 01:00 PMElinor Raman GDPesowpicxx226 [facility] 2 Alberto 250 DO Signatures Electronically signed by : Dima Minor MD; May 23 2022 4:14PM EST (Author) Electronically signed by : Seema Saldaña APRN-CROSSING WATCHMAN; May 24 2022 2:39PM EST (Author) [facility] Office Visit (Cardiology)on 05-04-2022 Follow-up visit Diagnoses/Problems [...] Adverse Reaction; (more content not included)... Normal Rev Tobacco Screening.on 023 Adult depression screening assessment No [facility] Ribbit DO Work Phone: Fall risk assessment b) One or more falls in the last year [facility] Ribbit DO Work Phone: Tobacco use status CPHS b) No M [facility] NewAer 250 DO Work Phone: Magdiel 03-28-2022 [facility] Telephone (Reds10N) ---- DIANELYS WOMACK ([id number]) 1950 F Date Time Provider Department 03/28/22 Gareth VERA During your visit today, we recorded the following information about you: [place] [facility]adiaga [facility] [place]/28/2022 2:00 PM Signed [phone] Dianelys Womack complains of watery diarrhea. Lety [...] RN - Fully Assessed Reason for Visit: Supervisor Finishing Room - Other [1332] Prescriptions as of 03/28/2022 - neomycin 500 [...] Encounter Status:Closed by LETY QUINONES on 03/28/22 [facility] Telephone (PANTERA) ---- DIANELYS WOMACK ([id number]) 1950 F Date Time Provider Department 03/28/22 Gareth VERA During your visit today, we recorded the following information about you: Cayden Alex [facility] 03/28/2022 12:15 PM Signed Dianelys Womack [phone], have questions no info given. Lety Quinones [...] RN - Fully Assessed Reason for Visit: Patient Question [4424] Prescriptions as of 03/28/2022 - neomycin 500 [...] Status:Closed by CAYDEN LEUNG on 03/28/22 [facility] BASIC METABOLIC PANELon BUN/CREATININE RATIO NOT APPLICABLE Normal - [facility] Comment on above: Performed By: #### 8 837, 718, 18610, 62917 #### [facility] [place] [address] Aircraft Structural Repair Mechanic: Doug Trejo MD Chloride [Moles/Vol] 105 mmol/L Normal 98-110 Ques t Diagnostics Comment on above: Performed By: #### 8 837, 718, 82944, 84281 #### [facility] [place] [address] [employer] Structural Repair Mechanic: Doug Trejo MD CO2 [Moles/Vol] 30 mmol/L Normal 20-32 [facility] Comment on above: Performed By: #### 8 837, 718, 95567, 37038 #### [facility] [place] [address] [employer] Structural Repair Mechanic: Doug Trejo MD Creatinine [Mass/Vol] 0.94 mg/dL Normal 0.60-1.[address] [facility] Comment on above: Performed By: #### 8 837, 718, 75798, 94876 #### [facility] [address] [place] [address] Aircraft Structural Repair Mechanic: Doug Trejo MD GFR/1.73 sq M.predicted among non-blacks MDRD (S/P/Bld) [Vol rate/Area] 64 mL/min/{1.73_m2} Normal > OR = 60 [facility] Comment on above: Result Comment: The eGFR is based on the CKD-EPI 202 equation. To calculate the new eGFR from a previous Creatinine or Cystatin C result, go to https://www.kidney.org/professionals/ kdoqi/gfr%5Fcalculator Performed By: #### 8 837, 718, 11656, 87826 #### [facility] [address], [address] [place] [address] Aircraft Structural Repair Mechanic: Doug Trejo MD Glucose [Mass/Vol] 94 mg/dL Normal 65-99 [facility] Comment on above: Result Comment: Fasting reference interval Performed By: #### 8 837, 718, 19953, 08383 #### [facility] [address], [address] [place] [address] Aircraft Structural Repair Mechanic: Doug Trejo MD Potassium [Moles/Vol] 4.3 mmol/L Normal 3.5-5.[address] [facility] Comment on above: Performed By: #### 8 837, 718, 93696, 47463 #### [facility] [address], [address] [place] [address] Aircraft Structural Repair Mechanic: Doug Trejo MD Sodium [Moles/Vol] 141 mmol/L Normal 135-146 [facility] Comment on above: Performed By: #### 8 837, 718, 08697, 09412 #### [facility] [address] [place] [address] [employer] Structural Repair Mechanic: Doug Trejo MD Urea nitrogen [Mass/Vol] 18 mg/dL Normal 7-25 [facility] Comment on above: Performed By: #### 8 837, 718, 05186, 56765 #### [facility] [place] [address] [employer] Structural Repair Mechanic: Doug Trejo MD CTA ABD/PELVIS WO W [...] NATALIE FRANCO Date: 2022-03-24 08:09 Normal [facility] PHOSPHATE ( PHOSPHORUS)on 03-24-2022 Phosphate [Mass/Vol] 3.6 mg/dL Normal 2.1-4.3 Ques t Diagnostics Comment on above: Performed By: #### 8 224, 862, 72753, 73331 #### [facility] [address], [address] [place] [address] [employer] Structural Repair Mechanic: Doug Trejo MD PTH, INTACT AND CALCIUMon Calcium [Mass/Vol] 9.5 mg/dL Normal 8.6-10.4 [facility] Comment on above: Order Comment: FASTI NG:YES FASTING: YES Performed By: #### 8 087, 027, 80062, 40466 #### [facility] [address], [address] [place], [place] [address] [employer] Structural Repair Mechanic: Doug Trejo MD PARATHYROID HORMONE, INTACT 42 [...] Low Normal High Performed By: #### 8 727, 880, 03507, 79372 #### [facility] [address], [address] [place] [address] Aircraft Structural Repair Mechanic: Doug Trejo MD VITAMIN D,25-OH,TOTAL,IAon 0 03-24-2022 VITAMIN D,25-OH,TOTAL,IA 29 ng/mL Low 30-100 [facility] Comment on above: Result Comment: Denny min D Status 25-OH Vitamin D: Deficiency: <20 ng/mL Insufficiency: 20 - 29 ng/mL Optimal: > or = 30 ng/mL For 25-OH Vitamin D testing on patients on D2-supplementation and patients for whom quantitation of D2 and D3 fractions is required, the QuestAssureD(TM) 25-OH VIT D, (D2,D3), LC/MS/MS is recommended: order code 98594 (patients >2yrs). See Note 1 Note 1 For additional information, please refer to http://education.TerraPerks.[employer]/faq/HLG707 (This link is being provided for informational/ educational purposes only.) Performed By: #### 8 387, 502, 45935, 18391 #### [facility] [address], [address] [place], [place] [address] [employer] Structural Repair Mechanic: Doug Trejo MD CREATININEon 03-23-2022 Creatinine [Mass/Vol] 0.97 mg/dL Normal 0.55-1.02 [facility] Comment on above: Performed By: #### C DOYLE ####[facility] [address] [place], [place] [address]Uv. Sheila Mittal EGFR-AF INDONESIAN >60 Normal >=60 [facility] Comment on above: Performed By: #### C DOYLE ####[facility] [address] [place], [place] [address]Ie. Sheila Mittal EGFR-NON AF INDONESIAN 56 mL/min/1.73m2 Critically low >=60 [facility] Comment on above: Performed By: #### C DOYLE ####[facility] [address] [place], [place] [address]Sz. Sheila Mittal Established Visit (Nephrolog y)on 03-22-2022 Established Visit (Nephrology) Diagnoses/Problems CKD (chronic kidney disease), stage III (585.3) (N18.30) Essential hypertension (401.9) (I10) Orders CKD (chronic kidney disease), stage III, Essential hypertension Basic Metabolic Panel; Status:Active; Requested for:32Lhv2463; Parathormone Intact, Serum; Status:Active; Requested for:31Kxp8408; Phosphorus, Serum; Status:Active; Requested for:67Jnn9479; Vitamin D 25-Hydroxy; Status:Active; Requested for:60Xhm0797; Provider Impressions 1. Hypertension. Blood pressure is [...] CAPSone capsule daily Vitals Vital Signs Recorded: 74Oko7584 03:35PM Zhxinzgepyd74.1 F Heart Rate60 Uospzkln288, LUE, Sitting Dltiqjvpv76, LUE, Sitting Height5 ft 3 in Rllgay236 lb BMI Gzdblkvvqq04.81 kg/m2 BSA Calculated1.74 Tobacco Useb) No Falls [...] Exam: Speech is fluent. Moves extremities. Results/Data [facility] [place] Basic Metabolic Pfghl77Hzn7471 10:05Miri, [facility] [address] [address] (more content not included)... Normal Rev Tobacco Screening.on 023 Fall risk assessment b) One or more falls in the last year -[facility] 3 DO Work Phone: Tobacco use status CP b) No M -[facility] 3 DO Work Phone: CNPNon 03-10-2022 [facility]AN [place] Telephone (CORSMN) ---- DIANELYS WOMACK ([id number]) 1950 F Date Time Provider Department 03/10/22 Gareth VERA During your visit today, we recorded the following information about you: Stephanie [facility]wini [facility] [place]/10/2022 1:30 PM Signed [phone] Dianelys Womack asked to speak with Lety. [...] RN - Fully Assessed Reason for Visit: Supervisor Finishing Room - Other [3602] Prescriptions as of 03/10/2022 [...] Encounter Status:Closed by LETY QUINONES on 03/10/22 [facility] Magdiel 03-08-2022 ALEXN Telephone ([facility]) ---- DIANELYS WOMACK ([id number]) 1950 F Date Time Provider Department 03/08/22 Gareth VERA During your visit today, we recorded the following information about you: Stephanie Maradiaga [facility] 03/08/2022 10:57 AM Signed [phone] Dianelys Womack asked to speak with [place] about 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 Stephanie Maradiaga [facility] 03/09/2022 2:39 PM Signed I called patient and left message. An order for vascular surgery consult was placed. A message was sent to our schedulers to coordinate, however, she can call herself to schedule [phone] Allergies As of Date: 03/08/2022 Noted Allergy [...] Status:Closed by STEPHANIE JONES on 03/09/22 [facility] OPERATIVE NOon 03-04-2022 OPERATIVE NO HNO ID: [id number] Author: Gareth Vera MD Service: Colorectal Author Type: Physician Type: Operative Report Filed: 03/04/2022 6:56 AM Note Text: [facility] - Operative Report [address] [address] [place] DIANELYS WOMACK : 1950 AGE: 71. SEX: F PATIENT TYPE: A HOSP SVC: CRS LOCATION: [place] [address] ATTENDING PHYSICIAN: Fei Vera M.D. CSN NUMBER: [id number] DATE OF SURGERY/PROCEDURE: 03/03/2022 INCISION/PROCEDURE START TIME: 12:56 PM INCISION CLOSE/PROCEDURE END TIME: 3:38 PM PREOPERATIVE DIAGNOSIS: Rectal LST POSTOPERATIVE DIAGNOSIS: Same SURGEON: Fei Vera M.D. BEE TENDER: BEE TENDER: Pierre Tinoco MD. No qualified resident available. He participated in all portions of the surgery documented. This includes patient positioning, abdominal access, exposure, dissection and abdominal closure. . No qualified resident was available and he was instrumental in huddling and assistance and closure of the procedure. SURGERY/PROCEDURE: Endoscopic submucosal dissection (63614) and transanal endoscopic removal of the larger [...] a 71-year-old woman, who was referred to nh for further management of this large rectal [...] portions of the operation. Fei Vera M.D. EG:[id number] /[id number] [facility] ANES POSTPROC EVALon 023 ANES POSTPROC EVAL HNO ID: [id number] Author: Lakeshia Delacruz MD, PhD Service: ? Author Type: Anesthesiologist Type: Anesthesia Postprocedure Evaluation Filed: 03/03/2022 9:43 PM Note Text: POST ANESTHESIA EVALUATION NOTE : 1950 Procedure Summary Date: 03/03/22 Room / Location: [address] [facility] Anesthesia Start: 1207 Anesthesia Stop: 1603 Procedures: COMBINED CO2 COLONOSCOPY AND LAPAROSCOPY (Anus) TAMIS EXC RECTAL TUMOR TRANSANAL MINIMALLY INVASIVE SURGERY (Anus) Diagnosis: Rectal mass (Rectal mass [K62.89]) Surgeons: Gareth Vera MD Responsible Provider: Lakeshia Delacruz MD, [...] with this procedure. Documented by Rohini Stephenson APRN.PROFESSIONAL BASS FISHER 03/03/2022 3:04 PM EST SIGNATURE: Lakeshia Delacruz MD, PhD PATIENT NAME: Dianelys Womack DATE: March 03, 2022 TIME: 9:43 PM CSN: [id number] [facility] ANES PRE-OPon 03-03-2022 ANES PRE-OP HNO ID: [id number] Author: Lakeshia Delacruz MD, PhD Service: ? Author Type: Anesthesiologist Type: Anesthesia Preprocedure Evaluation Filed: 03/03/2022 11:43 AM Note Text: ANESTHESIOLOGY DAY OF SURGERY NOTE : 1950 Procedure Information Date/Time: 03/03/22 1115 Procedures: COMBINED CO2 COLONOSCOPY AND LAPAROSCOPY (Anus) TAMIS EXC RECTAL TUMOR TRANSANAL MINIMALLY INVASIVE SURGERY (Anus) Location: MAIN OR[facility] Surgeons: Gareth Vera MD Estimated body mass index is [...] and consent discussed: yes. Patient / Responsible Libertarian agrees to proceed: yes Patient / Surrogate [...] March 03, 2022 TIME: 11:39 AM CSN: [id number] [facility] BRIEF OP NOTon 03-03-2022 BRIEF OP NOT HNO ID: [id number] Author: Pollo Cardenas MD, PhD Service: Colorectal Author Type: Physician Type: Brief Op Note Filed: 03/03/2022 3:30 PM Note Text: BRIEF OPERATIVE NOTE - COLORECTAL SURGERY Log ID: [id number] Surgery/Procedure Date: 03/03/2022 Incision/Procedure Start Time: 12:56 PM Incision Close/Procedure End Time: 3:26 PM Surgeon(s) and Cutting And Creasing Press Operator(s): Surgeon(s) and Role: * Gareth Vera MD - Primary * Pollo Cardenas [...] March 03, 2022 TIME: 3:26 PM [facility] COLONOSCOPY (THERAPEUTIC)on 03-03-2022 [facility] Colonoscopyon 03-03-2022 Colonoscopy OR Gastrointestinal Endoscopy [...] was minimal. Procedure Start: Procedure End: [facility] SURGICAL PATHOLOGYon 023 CASE REPORT [facility] Comment on above: Order Comment: Speci men Type: TISSUE SPECIMENOrdering Facility: [facility] Address: [address] [place] [address] Result Comment: Surg ica Pathology Report Case: [id number] Authorizing Provider: Gareth Vera MD Collected: 03/03/2022 01:26 PM Ordering Location: Admitting Received: 03/03/2022 05:31 PM Pathologist: Huong Cortez MD Specimens: A) - COLON POLYP, DESCENDING COLON POLYP B) - RECTAL POLYP Performed By: #### S ####[facility] LABIA [id number] [address] CLINICAL HISTORY Normal [facility] Comment on above: Order Comment: Magnus montoya Type: TISSUE SPECIMENOrdering Facility: [facility] Address: [address] [place] [address] Result Comment: Pre- op diagnosis: Rectal mass [K62.89] Performed By: #### S ####[facility] LABIA [id number] [address] OF [facility] FINAL DIAGNOSIS Normal [facility] Comment on above: Order Comment: Speci men Type: TISSUE SPECIMENOrdering Facility: [facility] Address: [address] [place] [address] Result Comment: Stephen. C olon, descending polyp, polypectomy: - Fragments of tubular adenoma B. 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 - Low-grade dysplasia focally present at the peripheral mucosal margin. ES/SARBJIT 03/08/2022 Performed By: #### S ####[facility] LABCLIA [id number] [address] OF [facility] FINAL PERFORMING LAB Normal [facility] Comment on above: Order Comment: Speci men Type: TISSUE SPECIMENOrdering Facility: [facility] Address: [address] [place] [address] Result Comment: Diag nostic interpretation performed at [facility], [address] [place] [address] CLIA# [id number] Patient Intake Coordinator: Johnny Rich M.D. Performed By: #### S ####[facility] LABCLIA [id number] [address] GROSS DESCRIPTION A. COLON POLYP [facility] Comment on above: Order Comment: Speci men Type: TISSUE SPECIMENOrdering Facility: [facility] Address: [address] [place] [address] Result Comment: Rece ived in formalin with the patient's name, medical record number, and descending colon polyp is a 2.5 x 0.3 x 0.2 cm aggregate of pascual soft tissue fragments. Submitted in A1 and A2. Gross examination performed at [facility], [address] [place] [address] TTN 03/03/2022 9:21 PM B. RECTAL POLYP [...] margin, perpendicular sections Gross examination performed at [facility], [address] [facility], [address] 03/04/22 4:00 PM Performed By: #### S ####[facility] LABCLIA [id number] [id number] Magdiel 03-01-2022 ALEXN Telephone (CORSMN) ---- DIANELYS WOMACK ([id number]) 1950 F Date Time Provider Department 03/01/22 Gareth VERA During your visit today, we recorded the following information about you: [place] [facility] [place]/01/2022 4:19 PM Signed Dianelys Womack asked [...] Date Reviewed: 02/24/2022 Reviewed by: Karson Monte APRN.CROSSING WATCHMAN - Fully Assessed Reason for Visit: Supervisor Finishing Room - Other [3882] Prescriptions as of 03/02/2022 - neomycin 500 [...] Encounter Status:Closed by LETY QUINONES on 03/02/22 [facility] Telephone ([place]) ---- VUDIANELYS Omi ([id number]) 1950 F Date Time Provider Department 03/01/22 Gareth VERA During your visit today, we recorded the following information about you: Cayden Alex [facility] 03/01/2022 11:53 AM Signed Dianelys Womack did not receive any information by mail. As discussed, please fax to daughterRenetta [phone] Allergies As of Date: 03/01/2022 Noted Allergy Reaction CIPROFLOXACIN 10/05/2020 16 - Unknown Flagyl (METRONIDAZOLE) 08/04/2016 16 - Unknown LEVOFLOXACIN 03/10/2015 16 - Unknown PENICILLINS 03/10/2015 16 - Unknown 14 - Other: See Comments SEASONAL ALLERGIES 10/05/2020 16 - Unknown SOY 05/16/2015 16 - Unknown VANCOMYCIN 11/17/2021 16 - Unknown Date Reviewed: 02/24/2022 Reviewed by: Karson Monte APRN.CROSSING WATCHMAN - Fully Assessed Reason for Visit: Patient [...] difficult intubation [Z91.89] 02/24/2022 Encounter Status:Closed by [facility] 03/01/22 [facility] Magdiel 02-28-2022 JUAN DIEGO Telephone (CORSMN) ---- DIANELYS WOMACK ([id number]) 1950 F Date Time Provider Department 02/28/22 Gareth VERA During your visit today, we recorded the following information about you: Stephanie [facility]adiaga [facility] [place] 02/28/2022 9:27 AM Signed [phone] Dianelys Womack has questions about meds she can and can't take prior to surgery. Kiyaore Tramadol probotic Lety Quinones, RN 02/28/2022 2:22 PM Signed Called and spoke with patient She would like pt ed info faxed to her daughter's fax number She also wanted to review meds prior to surgery - reviewed what PACC advised as far as medication stopping and/or taking Patient appreciative of call She was also interested in possibly hooking up with cardiovascular provider here at [facility] for AAA She will call me if interested deciding to proceed with care with CV at [facility] - I am happy to help [...] Unknown Date Reviewed: 02/24/2022 Reviewed by: Karson Mnote APRN.CROSSING WATCHMAN - Fully Assessed Reason for Visit: Supervisor Finishing Room - Other [3602] Prescriptions as of 02/28/2022 [...] Status:Closed by LETY QUINONES on 02/28/22 Normal [facility] CBC panel Auto (Bld)on 02-24 Erythrocyte distribution width (RBC) [Ratio] 14.6 % Normal 11.5-15.0 [facility] Comment on above: Order Comment: Speci men Type: BLOOD SPECIMENOrdering Facility: [facility] Address: [address] [place] [address] Performed By: #### 5 8410-2 ####[facility] [id number] [address] [place] Hematocrit (Bld) [Volume fraction] 38.0 % Normal 36.0-46.0 [facility] Comment on above: Order Comment: Speci men Type: BLOOD SPECIMENOrdering Facility: [facility] Address: [address] [place] [address] Performed By: #### 5 8410-2 ####[facility] [id number] [place] [address] [place] Hemoglobin (Bld) [Mass/Vol] 12.1 g/dL Normal 11.5-15.5 [facility] Comment on above: Order Comment: Speci men Type: BLOOD SPECIMENOrdering Facility: [facility] Address: [address] [place] [address] Performed By: #### 5 8410-2 ####[facility] LABIA [id number] [place] [address] [place] MCH (RBC) [Entitic mass] 26.7 pg Normal 26.0-34.0 [facility] Comment on above: Order Comment: Speci men Type: BLOOD SPECIMENOrdering Facility: [facility] Address: [address] [place] [address] Performed By: #### 5 8410-2 ####[facility] LABIA [id number] [address] STATES OF [facility] MCHC (RBC) [Mass/Vol] 31.8 g/dL Normal 30.5-36.0 [facility] Comment on above: Order Comment: Speci men Type: BLOOD SPECIMENOrdering Facility: [facility] Address: [address] [place], [place] [address] Performed By: #### 5 8410-2 ####[facility] LABIA [id number] [address] STATES OF [facility] MCV (RBC) [Entitic vol] 83.7 fL Normal 80.0-100.0 [facility] Comment on above: Order Comment: Speci men Type: BLOOD SPECIMENOrdering Facility: [facility] Address: [address] [place], [place] [address] Performed By: #### 5 8410-2 ####[facility] [id number] [address] STATES [facility] Nucleated RBC (Bld) [#/Vol] 10*3/uL Normal <0.01 [facility] Comment on above: Order Comment: Speci men Type: BLOOD SPECIMENOrdering Facility: [facility] Address: [address] [place], [place] [address] Performed By: #### 5 8410-2 ####[facility] LABIA [id number] [address] STATES [facility] Platelet mean volume (Bld) [Entitic vol] 10.6 fL Normal 9.0-12.7 [facility] Comment on above: Order Comment: Speci men Type: BLOOD SPECIMENOrdering Facility: [facility] Address: [address] [place], [place] [address] Performed By: #### 5 8410-2 ####[facility] [id number] [address] [id number], [place] [address] [place] Platelets (Bld) [#/Vol] 161 10*3/uL Normal 150-400 [facility] Comment on above: Order Comment: Speci men Type: BLOOD SPECIMENOrdering Facility: [facility] Address: [address] [place] [address] Performed By: #### 5 8410-2 ####[facility] LABCLIA [id number] [place] [address] [place] RBC (Bld) [#/Vol] 4.54 10*6/uL Normal 3.90-5.20 [facility] Comment on above: Order Comment: Speci men Type: BLOOD SPECIMENOrdering Facility: [facility] Address: [address] [place] [address] Performed By: #### 5 8410-2 ####[facility] LABCLIA [id number] [place] [address] [place] WBC (Bld) [#/Vol] 6.18 10*3/uL Normal 3.70-11.00 [facility] Comment on above: Order Comment: Speci men Type: BLOOD SPECIMENOrdering Facility: [facility] Address: [address] [place], [place] [address] Performed By: #### 5 8410-2 ####[facility] LABCLIA [id number] [place] [address] [place] CEA SerPl-mCncon 02-24-2022 Carcinoembryonic Ag [Mass/Vol] 1.3 ng/mL Normal <=2.9 [facility] Comment on above: Order Comment: Speci men Type: BLOOD SPECIMENOrdering Facility: [facility] Address: [address] [place], [place] [address] Result Comment: Carc inoembryonic antigen test is used as an aid in monitoring response to treatment or recurrence in patients with established colorectal, breast, lung, prostatic, pancreatic, and ovarian carcinomas. Clinical correlation is required. The Carcinoembryonic antigen test was performed using the [place] Un[employer] DXI paramagnetic particle chemiluminescent immunoassay method. Results obtained with different assay methods or kits cannot be used interchangeably. Performed By: #### 2 039-6 ####[facility] CONCEPCIÓN [id number] [place] [id number] [place] Magdiel 02-24-2022 ALEXN Telephone (CORSMN) ---- DIANELYS WOMACK ([id number]) 1950 F Date Time Provider Department 02/24/22 [...] Date Reviewed: 02/24/2022 Reviewed by: Karson Monte APRN.CROSSING WATCHMAN - Fully Assessed Reason for Visit: Supervisor Finishing Room - Other [5842] Prescriptions as of 02/24/2022 - polyethylene glycol [...] Encounter Status:Closed by LETY QUINONES on 02/24/22 [facility] Telephone (Reds10N) ---- VUDIANELYS ([id number]) 1950 F Date Time Provider Department 02/24/22 Gareth VERA During your visit today, we recorded the following information about you: Blaine Herring 02/24/2022 12:13 PM Signed The Patient is returning the nurses call back. Please call patient at [phone] Lety Quinones RN 02/24/2022 12:35 PM Signed [...] Date Reviewed: 02/24/2022 Reviewed by: Karson Monte APRN.CROSSING WATCHMAN - Fully Assessed Reason for Visit: Returning [...] Status:Closed by BLAINE HERRING on 02/24/22 Normal [facility] CONFIRM BLOOD TYPEon 023 ABO O Normal [facility] Comment on above: Order Comment: Speci men Type: BLOOD SPECIMEN [facility] Address: [address] [place] [address] Performed By: #### C ONABO #### [facility] CLIA [id number] [address] [place] Rh Nom (Bld) Positive Normal [facility] Comment on above: Order Comment: Speci men Type: BLOOD SPECIMEN [facility] Address: [address] [place] [place] [address] Performed By: #### C ONABO #### [facility] CLIA [id number] [address] [place] [address] [place] Comprehensive metabolic 2000 panelon 02-24-2022 Albumin [Mass/Vol] 3.8 g/dL Low 3.9-4.9 [facility] Comment on above: Order Comment: Speci men Type: BLOOD SPECIMENOrdering Facility: [facility] Address: [address] [place] [address] Performed By: #### 2 4323-8 ####[facility] LABCLIA [id number] [place] [address] [place] ALP [Catalytic activity/Vol] 152 U/L High 34-123 [facility] Comment on above: Order Comment: Speci men Type: BLOOD SPECIMENOrdering Facility: [facility] Address: [address] [place] [address] Performed By: #### 2 4323-8 ####[facility] LABCLIA [id number] [place] [address] [place] ALT [Catalytic activity/Vol] 17 U/L Normal 7-38 [facility] Comment on above: Order Comment: Speci men Type: BLOOD SPECIMENOrdering Facility: [facility] Address: [address] [place], [place] [address] Performed By: #### 2 4323-8 ####[facility] LABCLIA [id number] [place] [address] [place] Anion gap [Moles/Vol] 11 mmol/L Normal 9-18 [facility] Comment on above: Order Comment: Speci men Type: BLOOD SPECIMENOrdering Facility: [facility] Address: [address] [place], [place] [address] Performed By: #### 2 4323-8 ####[facility] LABCLIA [id number] [place] [address] [place] AST [Catalytic activity/Vol] 30 U/L Normal 13-35 [facility] Comment on above: Order Comment: Speci men Type: BLOOD SPECIMENOrdering Facility: [facility] Address: [address] Performed By: #### 2 4323-8 ####[facility] LABCLIA [id number] [place] [address] [place] Bilirubin [Mass/Vol] 0.4 mg/dL Normal 0.2-1.3 [facility] Comment on above: Order Comment: Speci men Type: BLOOD SPECIMENOrdering Facility: [facility] Address: [address] Performed By: #### 2 4323-8 ####[facility] LABCLIA [id number] [place] [address] [place] Calcium [Mass/Vol] 10.0 mg/dL Normal 8.5-10.2 [facility] Comment on above: Order Comment: Speci men Type: BLOOD SPECIMENOrdering Facility: [facility] Address: [address] Performed By: #### 2 4323-8 ####[facility] LABCLIA [id number] [place] [address] [place] Chloride [Moles/Vol] 105 mmol/L Normal 97-105 [facility] Comment on above: Order Comment: Speci men Type: BLOOD SPECIMENOrdering Facility: [facility] Address: [address] Performed By: #### 2 4323-8 ####[facility] LABCLIA [id number] [place] [address] [place] CO2 [Moles/Vol] 22 mmol/L Normal 22-30 [facility] Comment on above: Order Comment: Speci men Type: BLOOD SPECIMENOrdering Facility: [facility] Address: [address] Performed By: #### 2 4323-8 ####[facility] LABCLIA [id number] [place] [address] [place] Creatinine [Mass/Vol] 0.82 mg/dL Normal 0.58-0.96 [facility] Comment on above: Order Comment: Magnus montoya Type: BLOOD SPECIMENOrdering Facility: [facility] Address: [address] [place] [address] Performed By: #### 2 4323-8 ####[facility] LABIA [id number] [address] OF [facility] ESTIMATED GLOMERULAR FILTRATION RATE 76 mL/min/1.73m??? Normal >=60 [facility] Comment on above: Order Comment: Jocelyni men Type: BLOOD SPECIMENOrdering Facility: [facility] Address: [address] [place] [address] Result Comment: Hortencia mated Glomerular Filtration Rate [...] actual GFR. Performed By: #### 2 4323-8 ####[facility] LABIA [id number] [place] [address] [place] Glucose [Mass/Vol] 98 mg/dL Normal 74-99 [facility] Comment on above: Order Comment: Speci men Type: BLOOD SPECIMENOrdering Facility: [facility] Address: [address] [place] [address] Result Comment: The [place] [employer] (ADA) provides guidance for cutoff [...] Standards of Medical Care in Diabetes 2016, [place] [employer]. Diabetes Care. 2016.39(Suppl 1). Performed By: #### 2 4323-8 ####[facility] LABCLIA [id number] [place] [address] [place] Potassium [Moles/Vol] 4.5 mmol/L Normal 3.7-5.1 [facility] Comment on above: Order Comment: Speci men Type: BLOOD SPECIMENOrdering Facility: [facility] Address: [address] [place] [address] Performed By: #### 2 4323-8 ####[facility] LABIA [id number] [place] [address] [place] Protein [Mass/Vol] 6.8 g/dL Normal 6.3-8.0 [facility] Comment on above: Order Comment: Speci men Type: BLOOD SPECIMENOrdering Facility: [facility] Address: [address] [place] [address] Performed By: #### 2 4323-8 ####[facility] LABIA [id number] [place] [address] [place] Sodium [Moles/Vol] 138 mmol/L Normal 136-144 [facility] Comment on above: Order Comment: Speci men Type: BLOOD SPECIMENOrdering Facility: [facility] Address: [address] Performed By: #### 2 4323-8 ####[facility] LABCLIA [id number] [place] [address] [place] Urea nitrogen [Mass/Vol] 20 mg/dL Normal 7-21 [facility] Comment on above: Order Comment: Speci men Type: BLOOD SPECIMENOrdering Facility: [facility] Address: [address] [place] [id number] Performed By: #### 2 4323-8 ####[facility] LABCLIA [id number] [id number] [address] [place] ECG COMPLETEon 02-24-2022 ECG COMPLETE Ventricular Rate : 54 BPM Atrial Rate : 54 BPM P-R Interval : 172 ms QRS Duration : 96 ms Q-T Interval : 450 ms QTC Calculation(Bazett) : 426 ms Calculated P [place] : 59 degrees Calculated R [place] : -33 degrees Calculated T [place] : 48 degrees SINUS BRADYCARDIA LEFT AXIS DEVIATION ABNORMAL ECG Confirmed by JHON JO M.D. (67) on 03/01/2022 1:40:04 PM NAME : DIANELYS WOMACK PID : [id number] : 1950 Gender : Female Race : ORD : [id number] Procedure Date : Feb 24 2022 10:59:01 Edit Date : Mar 01 2022 13:43:37 Diagnosis: SINUS BRADYCARDIA LEFT AXIS DEVIATION ABNORMAL ECG Confirmed by JHON JO M.D. (67) on 03/01/2022 1:40:04 PM Test Reason : Location : 119 : [place] [address] Overread By : JHON JO M.D. Edited By : JHON JO M.D. Referred By : Gareth VERA Acquired by : RIVAS CROCKER [facility] HISTORY PHYSICALon 3 HISTORY PHYSICAL HNO ID: [id number] Author: Karson Monte APRN.CNP Service: ? Author Type: Nurse Practitioner [...] SURGERY (N/A) at the request of Dr. Gareth Vera for consultation. My final recommendation will [...] Never D (more content not included)... Normal [facility] TYPE AND SCREEN,30 DAYon ABO O Normal [facility] Comment on above: Order Comment: Speci men Type: BLOOD SPECIMEN [facility] Address: [address] [place], [place] [address] Performed By: #### T SCR30 #### [facility] CLIA [id number] 9500 [facility] [address] [place] HISTORICAL AB SCR STATUS Negative Normal [facility] Comment on above: Order Comment: Speci men Type: BLOOD SPECIMEN [facility] Address: [address] [place] [place] [address] Performed By: #### T SCR30 #### [facility] CLIA [id number] [address] Rh Nom (Bld) Positive Normal [facility] Comment on above: Order Comment: Speci men Type: BLOOD SPECIMEN [facility] Address: [address] [place] [place] [address] Performed By: #### T SCR30 #### [facility] CLIA [id number] [address] CNOVon 01-12-2022 CNOV Office Visit ([facility]) ---- DIANELYS WOMACK ([id number]) 1950 F Date Time Provider Department 01/12/22 9:30 AM Gareth VERA [facility] During your visit today, we recorded the following information about you: Temperature Pulse Blood pressure Weight 97.4 degrees 107/minute 152/107 71.9 kg Height 1.575 m Gareth Vera MD 01/12/2022 10:34 AM Signed COLORECTAL [...] Abdomen soft, (more content not included)... Normal [facility] HISTORY PHYSICALon HISTORY PHYSICAL HNO ID: [id number] Author: Gareth Vera MD Service: ? 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 Normal [facility] Magdiel 12-24-2021 [facility]IEGO [facility] ---- DIANELYS WOMACK ([id number]) 1950 F Date Time Provider Department 12/24/21 TAZ TEJEDA GASTMN During your visit today, we recorded the [...] Unknown Date Reviewed: 12/06/2021 Reviewed by: Anastasia Orlando RN - Fully Assessed Reason for Visit: Results [95] Problem List As Of Date 12/24/2021 Noted Resolved Primary hypertension [I10] 12/06/2021 Hypothyroidism [E03.9] 12/06/2021 Gastroesophageal reflux disease without esophag*12/06/2021 Chronic renal impairment, stage 2 (mild) [N18.2]12/06/2021 History of anesthesia complications [Z87.898] 12/06/2021 CVA (cerebral vascular accident) ([facility]) [I63.9] 12/06/2021 Encounter Status:Closed by TAZ TEJEDA on 12/24/21 Normal [facility] ANES POSTPROC EVALon 022 ANES POSTPROC EVAL HNO ID: [id number] Author: Niko Hernandez MD Service: ? Author [...] Kapadia MD; Niko Hernandez MD; Colten Persaud APRN.PROFESSIONAL BASS FISHER Responsible Provider: Niko Hernandez MD Anesthesia Type: [...] December 06, 2021 TIME: 5:29 PM CSN: [id number] Normal [facility] ANES PRE-OPon 12-06-2021 ANES PRE-OP HNO ID: [id number] Author: Niko Hernandez MD Service: ? Author Type: Anesthesiologist Type: Anesthesia Preprocedure Evaluation Filed: 12/06/2021 10:43 AM Note Text: ANESTHESIOLOGY DAY OF SURGERY NOTE : 1950 Procedure Information Date/Time: 12/06/21929 Scheduled providers: Kenton Kapadia MD; Debbi Guerin APRN.PROFESSIONAL BASS FISHER; Niko Hernandez MD Procedures: COLONOSCOPY DIAGNOSTIC EGD [...] (mild) NEURO-PSYCH (+) CVA (cerebral vascular accident) ([facility]) (+) History of anesthesia complications PULMONARY (-) Chronic obstructive pulmonary disease (COPD) ([facility]) (-) Recent URI I - PHYSICAL EVALUATION [...] and consent discussed: yes. Patient / Responsible Libertarian agrees to proceed: yes Patient / Surrogate [...] December 06, 2021 TIME: 9:07 AM CSN: [id number] Normal [facility] COL[facility]OS[facility]STICon [facility] Colonoscopyon 12-06-2021 Colonoscopy Q3 Patient Name: [...] was incomplete. Procedure Code(s): --- Professional --- 37715, 52, Colonoscopy, flexible; with biopsy, single or multiple Diagnosis Code(s): --- Professional --- D49.0, Neoplasm of unspecified behavior of digestive system R10.84, Generalized abdominal pain CPT copyright 2020 [employer]. All rights reserved. Attending Participation: I personally performed the entire procedure. Scope In: 11:25:59 AM Scope Out: 11:47:49 AM MD Kenton Rowe MD 12/06/2021 11:58:39 AM This report has been signed electronically by Kenton Kapadia MD Number of Addenda: 0 Note Initiated On: 12/06/2021 10:56 AM Normal [facility] EGD DIAGNOSTICon 12-06-2021 [facility] NURSING PROGon 12-06-2021 NURSING PROG HNO ID: [id number] Author: Anastasia Orlando RN Service: Nursing Author Type: Registered Nurse Type: [...] Electronically Signed By: Anastasia Orlando RN Normal [facility] SURGICAL PATHOLOGYon 022 CASE REPORT Normal [facility] Comment on above: Order Comment: Speci men Type: TISSUE SPECIMENOrdering Facility: [facility] Address: [address] [place] [address] Result Comment: Surg ica Pathology Report Case: [id number] Authorizing Provider: Kenton Kapadia MD Collected: 12/06/2021 11:44 AM Ordering Location: Gastroenterology Received: 12/06/2021 03:33 PM Pathologist: Nathaniel Ford MD Specimen: RECTAL BIOPSY, rectal mass r/o CA Performed By: #### S ####[facility] LABCLIA [id number] [address] OF [facility] FINAL DIAGNOSIS Normal [facility] Comment on above: Order Comment: Speci men Type: TISSUE SPECIMENOrdering Facility: [facility] Address: [address] [place] [address] Result Comment: A. R ectum, mass, biopsy: - Superficial fragments of traditional serrated adenoma. Performed By: #### S ####[facility] LABCLIA [id number] [address] [place] FINAL PERFORMING LAB Normal [facility] Comment on above: Order Comment: Speci men Type: TISSUE SPECIMENOrdering Facility: [facility] Address: [address] [place], [place] [address] Result Comment: Diag nostic interpretation performed at [facility], [address] [place] [address] CLIA# [id number] Patient Intake Coordinator: Johnny Rich M.D. Performed By: #### S ####[facility] LABCLIA [id number] [address] [place] GROSS DESCRIPTION Normal [facility] Comment on above: Order Comment: Speci men Type: TISSUE SPECIMENOrdering Facility: [facility] Address: [address] [place], [place] [id number] Result Comment: A. R ECTAL BIOPSY Received in formalin are multiple pieces of pascual, soft tissue aggregating to 1.7 x 0.3 x 0.2 cm. Totally submitted in one cassette. Gross examination performed at [facility], [id number] [facility] 12/06/2021 9:49 PM Performed By: #### S ####[facility] LABCLIA [id number] [facility] [id number] [facility] CNPNon 11-29-2021 CNPN Telephone (GASTPR) ---- DIANELYS WOMACK ([id number]) 1950 F Date Time Provider Department 11/29/21 JSESICA GREEN During your visit today, we recorded the following information about you: Jessica Green RN 11/29/2021 12:49 PM Signed Attempted to reach the patient at the contact number that they provided [phone] (home). 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 screening representative they must have a responsible adult [...] -Number to call with questions or concerns [phone] Jessica Green RN BSN Allergies As of Date: 11/29/2021 (Not on File) Date Reviewed: Never Reviewed Reason for Visit: Appointment Confirmation [[id number]] Cmt: Pre-procedure instructions Problem List As Of Date: 11/29/2021 (None) Encounter Status:Closed by JESSICA GREEN on 11/29/21 [facility] Albumin [Mass/volume] in Ser um or PlasmaOrdered By: Chucho Saldaña on 11-17-2021 Albumin [Mass/Vol] 3.6 g/dL 3.2-5.5 [facility] Automated erythrocytes count in urine sediment (number/area)Ordered By: Chucho Saldaña on 11-17-2021 RBC Auto (Urine sed) [#/Area] 0-1 [HPF] 0-4 [facility] Automated leukocytes count i n urine sediment (number/area)Ordered By: Chucho Saldaña on 11-17-2021 WBC Auto (Urine sed) [#/Area] 3-4 [HPF] 0-4 [facility] Basic Metabolic Panelon 10-0 Anion gap [Moles/Vol] 15.1 mmol/L High 6.0-15.0 [facility] Comment on above: Performed By: #### C BC, LIPASE, BMP, HEPATIC #### [facility] [address] [id number] [place] Calcium [Mass/Vol] 10.0 mg/dL Normal 8.2-10.2 [facility] Comment on above: Performed By: #### C BC, LIPASE, BMP, HEPATIC #### [facility] [address] [place] [address] [place] Chloride [Moles/Vol] 103 mmol/L Normal 95-114 [facility] Comment on above: Performed By: #### C BC, LIPASE, BMP, HEPATIC #### [facility] [address] [place] [address] [place] CO2 [Moles/Vol] 27.0 mmol/L Normal 22.0-30.0 [facility] Comment on above: Performed By: #### C BC, LIPASE, BMP, HEPATIC #### [facility] [address] [place] [address] [place] Creatinine [Mass/Vol] 0.86 mg/dL Normal 0.44-1.03 [facility] Comment on above: Performed By: #### C BC, LIPASE, BMP, HEPATIC #### [facility] [address] [place] [address] [place] Creatinine Clr Calc Pharmacy 58.14 [facility] Comment on above: Performed By: #### C BC, LIPASE, BMP, HEPATIC #### [facility] [address] [place] [address] [place] Estimated GFR ( [place] > 60 [facility] Comment on above: Result Comment: GFR estimated reference range: According to KDOQI guidelines, <60 ml/min/1.73m2 is sufficient to diagnose a patient with chronic kidney disease. Performed By: #### C BC, LIPASE, BMP, HEPATIC #### [facility] [address] Estimated GFR (Non- Am > 60 [facility] Comment on above: Performed By: #### C BC, LIPASE, BMP, HEPATIC #### [facility] [address] Glucose [Mass/Vol] 95 mg/dL Normal 70-100 [facility] Comment on above: Result Comment: [place] Glucose Reference Range is dependent on time and content of last meal. Glucose of more than 200 mg/dL in a nonstressed, ambulatory subject supports the diagnosis of Diabetes Mellitus. ADA recommended reference range Performed By: #### C BC, LIPASE, BMP, HEPATIC #### [facility] [address] [place] [address] [place] Potassium [Moles/Vol] 3.1 mmol/L Low 3.5-5.1 [facility] Comment on above: Performed By: #### C BC, LIPASE, BMP, HEPATIC #### [facility] [address] [place] [address] [place] Sodium [Moles/Vol] 142 mmol/L Normal 136-146 [facility] Comment on above: Performed By: #### C BC, LIPASE, BMP, HEPATIC #### [facility] [address] Urea nitrogen [Mass/Vol] 9 mg/dL Normal 9-23 [facility] Comment on above: Performed By: #### C BC, LIPASE, BMP, HEPATIC #### [facility] [address] [place] [address] [place] Basophils Auto (Bld) [#/Vol] Ordered By: Chucho Saldaña on 11-17-2021 Basophils (Bld) [#/Vol] 0.0 10*3/uL 0.0-0.2 [facility] Basophils/100 WBC Auto (Bld) Ordered By: Chucho Saldaña on 11-17-2021 Basophils/100 WBC (Bld) 0.6 % . [facility] Bilirubin Test strip Ql (U)O rdered By: Chucho Saldaña on 11-17-2021 Bilirubin Ql (U) Negative Negative [facility] Blood hemoglobin measurement (mass/volume)Ordered By: Chucho Saldaña on 11-17-2021 Hemoglobin (Bld) [Mass/Vol] 13.4 g/dL 11.8-15.4 [facility] Blood leukocytes automated c ount (number/volume)Ordered By: Chucoh Saldaña on 11-17-2021 WBC (Bld) [#/Vol] 6.4 10*3/uL 4.5-11.0 [facility] CT abdomen pelvis wo conon 1 CT abdomen pelvis wo con [facility] Main [place] [address] [place] [address] CT Scan Report Signed Patient: Dianelys Womack MR#: [id number] 330 : 1950 Acct:[id number] Age/Sex: 70 / F ADM Date: 11/17/21 Loc: ER Room: Type: [facility] ER Attending Dr: Copies to: Chucho Saldaña MD Ordering Provider: Chucho Saldaña MD Date of Service: 11/17/21 CT/CT abdomen pelvis wo con: [facility] CT abdomen and pelvis withoutcontrast TECHNIQUE: Axial [...] Nick Gimenez M.D.11/17/2021 12:37 PM Dictation Location: [place] [address] Transcribed By: [facility] 11/17/21 1237 Dictated By: Nick Gimenez DO 11/17/21 1227 Signed By: 11/17/21 1237 Normal [facility] Color Auto (U)Ordered By: Swathi Saldaña on 11-17-2021 Color (U) Yellow Yellow [facility] Complete Blood Count Auto Di ffon 11-17-2021 Basophils (Bld) [#/Vol] 0.0 10*3/uL Normal 0.0-0.2 [facility] Comment on above: Result Comment: PERF ORMED BY: [place] [address] PATHOLOGIST LEATHER CARVER LISA VERDE M.D. Performed By: #### C BC, LIPASE, BMP, HEPATIC #### [address] Basophils/100 WBC (Bld) 0.6 % Normal . [facility] Comment on above: Performed By: #### C BC, LIPASE, BMP, HEPATIC #### [address] Eosinophils (Bld) [#/Vol] 0.0 10*3/uL Normal 0.0-0.45 [facility] Comment on above: Performed By: #### C BC, LIPASE, BMP, HEPATIC #### [address] Eosinophils/100 WBC (Bld) 0.8 % Normal . [facility] Comment on above: Performed By: #### C BC, LIPASE, BMP, HEPATIC #### [address] Erythrocyte distribution width (RBC) [Ratio] 15.8 % High 11.9-15.3 [facility] Comment on above: Performed By: #### C BC, LIPASE, BMP, HEPATIC #### [address] Hematocrit (Bld) [Volume fraction] 41.7 % Normal 34.0-46.4 [facility] Comment on above: Performed By: #### C BC, LIPASE, BMP, HEPATIC #### [address] Hemoglobin (Bld) [Mass/Vol] 13.4 g/dL Normal 11.8-15.4 [facility] Comment on above: Performed By: #### C BC, LIPASE, BMP, HEPATIC #### [address] Lymphocytes (Bld) [#/Vol] 0.9 10*3/uL Low 1.00-4.8 [facility] Comment on above: Performed By: #### C BC, LIPASE, BMP, HEPATIC #### [address] Lymphocytes/100 WBC (Bld) 14.4 % Normal . [facility] Comment on above: Performed By: #### C BC, LIPASE, BMP, HEPATIC #### [address] MCH (RBC) [Entitic mass] 27.3 pg Normal 24.7-34.3 [facility] Comment on above: Performed By: #### C BC, LIPASE, BMP, HEPATIC #### [address] MCV (RBC) [Entitic vol] 84.9 fL Normal 80-100 [facility] Comment on above: Performed By: #### C BC, LIPASE, BMP, HEPATIC #### [address] Mean Corpuscular HGB Conc 32.2 g/dL Normal 32.0-35.0 [facility] Comment on above: Performed By: #### C BC, LIPASE, BMP, HEPATIC #### [address] Monocytes (Bld) [#/Vol] 0.4 10*3/uL Normal 0.0-0.8 [facility] Comment on above: Performed By: #### C BC, LIPASE, BMP, HEPATIC #### [address] Monocytes/100 WBC (Bld) 7.0 % Normal . [facility] Comment on above: Performed By: #### C BC, LIPASE, BMP, HEPATIC #### [address] Neutrophils (Bld) [#/Vol] 5.0 10*3/uL Normal 1.8-7.7 [facility] Comment on above: Performed By: #### C BC, LIPASE, BMP, HEPATIC #### [address] Neutrophils/100 WBC (Bld) 77.2 % Normal . [facility] Comment on above: Performed By: #### C BC, LIPASE, BMP, HEPATIC #### [address] Nucleated RBC/100 WBC (Bld) [Ratio] 0.0 % Normal 0-0.5 [facility] Comment on above: Performed By: #### C BC, LIPASE, BMP, HEPATIC #### [facility] [address] Platelet mean volume (Bld) [Entitic vol] 8.3 fL Normal 6.3-10.7 [facility] Comment on above: Performed By: #### C BC, LIPASE, BMP, HEPATIC #### [facility] [address] Platelets (Bld) [#/Vol] 203 10*3/uL Normal 150-450 [facility] Comment on above: Performed By: #### C BC, LIPASE, BMP, HEPATIC #### [facility] [address] RBC (Bld) [#/Vol] 4.91 10*6/uL Normal 3.60-5.00 [facility] Comment on above: Performed By: #### C BC, LIPASE, BMP, HEPATIC #### [address] WBC (Bld) [#/Vol] 6.4 10*3/uL Normal 4.5-11.0 [facility] Comment on above: Performed By: #### C BC, LIPASE, BMP, HEPATIC #### [address] Creatinine and Glomerular fi ltration rate.predicted panel (S/P/Bld)Ordered By: Chucho Saldaña on 11-17-2021 Creatinine [Mass/Vol] 0.86 mg/dL 0.44-1.03 [facility] Dipstick and Microscopicon 1 Appearance (U) Clear Normal Clear [facility] Comment on above: Order Comment: Name Collection Type:: Clean-Voided Midstream Performed By: #### A DDONUAPLUS #### [address] Bacteria,Urine None Seen Normal None Seen [facility] Comment on above: Order Comment: Name Collection Type:: Clean-Voided Midstream Performed By: #### A DDONUAPLUS #### [address] Bilirubin,Urine Negative Normal Negative [facility] Comment on above: Order Comment: Name Collection Type:: Clean-Voided Midstream Performed By: #### A DDONUAPLUS #### [address] Color (U) Yellow Normal Yellow [facility] Comment on above: Order Comment: Name Collection Type:: Clean-Voided Midstream Performed By: #### A DDONUAPLUS #### [place] [address] [place] Glucose Ql (U) Normal Normal Normal [facility] Comment on above: Order Comment: Name Collection Type:: Clean-Voided Midstream Performed By: #### A DDONUAPLUS #### [place] [address] [place] Hyaline Casts,Urine 0-8 Normal 0-8 [facility] Comment on above: Order Comment: Name Collection Type:: Clean-Voided Midstream Result Comment: PERF ORMED BY: [place] [address] PATHOLOGIST LEATHER CARVER LISA VERDE M.D. Performed By: #### A DDONUAPLUS #### [place] [address] [place] Ketones Ql (U) Trace High Negative [facility] Comment on above: Order Comment: Name Collection Type:: Clean-Voided Midstream Performed By: #### A DDONUAPLUS #### [facility] [address] [place] [address] [place] Leukocyte esterase Test strip Ql (U) 1+ High Negative [facility] Comment on above: Order Comment: Name Collection Type:: Clean-Voided Midstream Performed By: #### A DDONUAPLUS #### [place] [address] [place] Nitrite,Urine Negative Normal Negative [facility] Comment on above: Order Comment: Name Collection Type:: Clean-Voided Midstream Performed By: #### A DDONUAPLUS #### [place] [address] [place] Occult Blood,Urine Trace High Negative [facility] Comment on above: Order Comment: Name Collection Type:: Clean-Voided Midstream Result Comment: PERF ORMED BY: [place] [address] PATHOLOGIST LEATHER CARVER LISA VERDE M.D. Performed By: #### A DDONUAPLUS #### [address] pH (U) 7.5 [pH] Normal 5.0-9.0 [facility] Comment on above: Order Comment: Name Collection Type:: Clean-Voided Midstream Performed By: #### A DDONUAPLUS #### [address] Protein,Urine Trace High Negative [facility] Comment on above: Order Comment: Name Collection Type:: Clean-Voided Midstream Performed By: #### A DDONUAPLUS #### [address] RBC LM.HPF (Urine sed) [#/Area] 0 /[HPF] Normal 0-4 [facility] Comment on above: Order Comment: Name Collection Type:: Clean-Voided Midstream Performed By: #### A DDONUAPLUS #### [address] Specificy [place],Urine 1.013 Normal 1.001-1.030 [facility] Comment on above: Order Comment: Name Collection Type:: Clean-Voided Midstream Performed By: #### A DDONUAPLUS #### [address] Squamous Epithelial Cell,Urine 0-1 Normal 0-2 [facility] Comment on above: Order Comment: Name Collection Type:: Clean-Voided Midstream Performed By: #### A DDONUAPLUS #### [address] Urobilinogen,Urine Normal Normal Normal [facility] Comment on above: Order Comment: Name Collection Type:: Clean-Voided Midstream Performed By: #### A DDONUAPLUS #### [facility] [address] [place] [address] [place] WBC,Urine 3-4 Normal 0-4 [facility] Comment on above: Order Comment: Name Collection Type:: Clean-Voided Midstream Performed By: #### A DDONUAPLUS #### [facility] [address] Direct bilirubin measurement Ordered By: Chucho Saldaña on 11-17-2021 Bilirubin.direct [Mass/Vol] 0.1 mg/dL 0.0-0.4 [facility] Eosinophils Auto (Bld) [#/Vo l]Ordered By: Chucho Saldaña on 11-17-2021 Eosinophils (Bld) [#/Vol] 0.0 10*3/uL 0.0-0.45 [facility] Eosinophils/100 WBC Auto (Bl d)Ordered By: Chucho Saldaña on 11-17-2021 Eosinophils/100 WBC (Bld) 0.8 % . [facility] Erythrocyte distribution wid th Auto (RBC) [Ratio]Ordered By: Chucho Saldaña on 11-17-2021 Erythrocyte distribution width (RBC) [Ratio] 15.8 % 11.9-15.3 [facility] Estimated glomerular filtrat ion rate (GFR) non- AmericanOrdered By: Chucho Saldaña on 11-17-2021 GFR/1.73 sq M.predicted among non-blacks MDRD (S/P/Bld) [Vol rate/Area] > 60 mL/Min [facility] Globulin Calc (S) [Mass/Vol] Ordered By: Chucho Saldaña on 11-17-2021 Globulin (S) [Mass/Vol] 3.6 g/dL [facility] Hematocrit Auto (Bld) [Volum e fraction]Ordered By: Chucho Saldaña on 11-17-2021 Hematocrit (Bld) [Volume fraction] 41.7 % 34.0-46.4 [facility] Hepatic Panelon 11-17-2021 Albumin [Mass/Vol] 3.6 g/dL Normal 3.2-5.5 [facility] Comment on above: Performed By: #### C BC, LIPASE, BMP, HEPATIC #### [facility] [address] Albumin/Globulin [Mass ratio] 1.0 {ratio} Normal [facility] Comment on above: Performed By: #### C BC, LIPASE, BMP, HEPATIC #### [facility] [address] ALP [Catalytic activity/Vol] 121 U/L High 32-92 [facility] Comment on above: Performed By: #### C BC, LIPASE, BMP, HEPATIC #### [facility] [address] ALT [Catalytic activity/Vol] 25 U/L Normal 10-60 [facility] Comment on above: Performed By: #### C BC, LIPASE, BMP, HEPATIC #### [facility] [address] [place] [address] AST [Catalytic activity/Vol] 34 U/L Normal 10-42 [facility] Comment on above: Performed By: #### C BC, LIPASE, BMP, HEPATIC #### [facility] [address] [place] [address] Bilirubin [Mass/Vol] 0.7 mg/dL Normal 0.3-1.2 [facility] Comment on above: Performed By: #### C BC, LIPASE, BMP, HEPATIC #### [facility] [address] [place] [address] Bilirubin,Indirect 0.6 mg/dL Normal [facility] Comment on above: Performed By: #### C BC, LIPASE, BMP, HEPATIC #### [facility] [address] [place] [address] Bilirubin.indirect [Mass/Vol] 0.1 mg/dL Normal 0.0-0.4 [facility] Comment on above: Performed By: #### C BC, LIPASE, BMP, HEPATIC #### [facility] [address] [place] [address] Globulin (S) [Mass/Vol] 3.6 g/dL Normal [facility] Comment on above: Performed By: #### C BC, LIPASE, BMP, HEPATIC #### [facility] [address] [place] [address] Protein [Mass/Vol] 7.2 g/dL Normal 6.1-7.9 [facility] Comment on above: Performed By: #### C BC, LIPASE, BMP, HEPATIC #### [facility] [address] Ketones Auto test strip (U) [Mass/Vol]Ordered By: Chucho Saldaña on 11-17-2021 Ketones (U) [Mass/Vol] Trace Negative [facility] - Chemistry and C hemistry - challengeOrdered By: Chucho Saldaña on 11-17-2021 Lipase [Catalytic activity/Vol] 26.0 U/L - [facility] - Hematology and Cell countsOrdered By: Chucho Saldaña on 11-17-2021 Nucleated RBC/100 WBC (Bld) [Ratio] 0.0 % 0-0.5 [facility] - UrinalysisOrder ed By: Chucho Saldaña on 11-17-2021 Hyaline casts LM Ql (Urine sed) 0-8 [LPF] 0-8 [facility] Lipaseon 11-17-2021 Lipase [Catalytic activity/Vol] 26.0 U/L Normal - [facility] Comment on above: Result Comment: PERF ORMED BY: [place] [address] PATHOLOGIST LEATHER CARVER LISA VERDE M.D. Performed By: #### C BC, LIPASE, BMP, HEPATIC #### [facility] [address] Lymphocytes Auto (Bld) [#/Vo l]Ordered By: Chucho Saldaña on 11-17-2021 Lymphocytes (Bld) [#/Vol] 0.9 10*3/uL 1.00-4.8 [facility] Lymphocytes/100 WBC Auto (Bl d)Ordered By: Chucho Saldaña on 11-17-2021 Lymphocytes/100 WBC (Bld) 14.4 % . [facility] MCH Auto (RBC) [Entitic mass ]Ordered By: Chucho Saldaña on 11-17-2021 MCH (RBC) [Entitic mass] 27.3 pg 24.7-34.3 [facility] MCHC Auto (RBC) [Mass/Vol]Or dered By: Chucho Saldaña on 11-17-2021 MCHC (RBC) [Mass/Vol] 32.2 g/dL 32.0-35.0 [facility] MCV Auto (RBC) [Entitic vol] Ordered By: Chucho Saldaña on 11-17-2021 MCV (RBC) [Entitic vol] 84.9 fL 80-100 [facility] Monocytes Auto (Bld) [#/Vol] Ordered By: Chucho Saldaña on 11-17-2021 Monocytes (Bld) [#/Vol] 0.4 10*3/uL 0.0-0.8 [facility] Monocytes/100 WBC Auto (Bld) Ordered By: Chucho Saldaña on 11-17-2021 Monocytes/100 WBC (Bld) 7.0 % . [facility] Neutrophils Auto (Bld) [#/Vo l]Ordered By: Chucho Saldaña on 11-17-2021 Neutrophils (Bld) [#/Vol] 5.0 10*3/uL 1.8-7.7 [facility] Neutrophils/100 WBC Auto (Bl d)Ordered By: Chucho Saldaña on 11-17-2021 Neutrophils/100 WBC (Bld) 77.2 % . [facility] Nitrite Test strip Ql (U)Ord ered By: Chucho Saldaña on 11-17-2021 Nitrite Ql (U) Negative Negative [facility] No Panel InformationOrdered By: Chucho Saldaña on 11-17-2021 Estimated GFR () > 60 mL/Min [facility] Comment on above: GFR estimated refere nce range: According to KDOQI guidelines, <60 ml/min/1.73m2 is sufficient to diagnose a patient with chronic kidney disease. Pharmacy Creatinine Clearance (Chem 58.14 [facility] Platelet mean volume Auto (B ld) [Entitic vol]Ordered By: Chucho Saldaña on 11-17-2021 Platelet mean volume (Bld) [Entitic vol] 8.3 fL 6.3-10.7 [facility] Platelets Auto (Bld) [#/Vol] Ordered By: Chucho Saldaña on 11-17-2021 Platelets (Bld) [#/Vol] 203 10*3/uL 150-450 [facility] Protein Auto test strip (U) [Mass/Vol]Ordered By: Chucho Saldaña on 11-17-2021 Protein (U) [Mass/Vol] Trace mg/dL Negative F [facility] Protein [Mass/volume] in Ser um or PlasmaOrdered By: Chucho Saldaña on 11-17-2021 Protein [Mass/Vol] 7.2 g/dL 6.1-7.9 [facility] RBC Auto (Bld) [#/Vol]Ordere d By: Chucho Saldaña on 11-17-2021 RBC (Bld) [#/Vol] 4.91 10*6/uL 3.60-5.00 [facility] Serum or plasma alanine harris otransferase measurement without P-5'-P (enzymatic activiOrdered By: Chucho Saldaña on 11-17-2021 ALT No additional P-5'-P [Catalytic activity/Vol] 25 U/L 1060 [facility] Serum or plasma albumin/glob ulin mass ratioOrdered By: Chucho Saldaña on 11-17-2021 Albumin/Globulin [Mass ratio] 1.0 {ratio} [facility] Serum or plasma alkaline suzanne sphatase measurement (enzymatic activity/volume)Ordered By: Chucho Saldaña on 11-17-2021 ALP [Catalytic activity/Vol] 121 U/L 32-92 [facility] Serum or plasma anion gap de terminationOrdered By: Chucho Saldaña on 11-17-2021 Anion gap [Moles/Vol] 15.1 mmol/L 6.0-15.0 [facility] Serum or plasma aspartate am inotransferase measurement (enzymatic activity/volume)Ordered By: Chucho Saldaña on 11-17-2021 AST [Catalytic activity/Vol] 34 U/L 10-42 [facility] Serum or plasma calcium jannet urement (mass/volume)Ordered By: Chucho Saldaña on 11-17-2021 Calcium [Mass/Vol] 10.0 mg/dL 8.2-10.2 [facility] Serum or plasma chloride yair surement (moles/volume)Ordered By: Chucho Saldaña on 11-17-2021 Chloride [Moles/Vol] 103 mmol/L 95-114 [facility] Serum or plasma glucose jannet urement (mass/volume)Ordered By: Chucho Saldaña on 11-17-2021 Glucose [Mass/Vol] 95 mg/dL 70-100 [facility] Comment on above: ADA recommended refe rence rangeRandom Glucose Reference Range is dependent on time and content of last meal. Glucose of more than 200 mg/dL in a nonstressed, ambulatory subject supports the diagnosis of Diabetes Mellitus. Serum or plasma non-glucuron idated bilirubin measurement (mass/volume)Ordered By: Chucho Saldaña on 11-17-2021 Bilirubin.indirect [Mass/Vol] 0.6 mg/dL [facility] Serum or plasma potassium me asurement (moles/volume)Ordered By: Chucho Saldaña on 11-17-2021 Potassium [Moles/Vol] 3.1 mmol/L 3.5-5.1 [facility] Serum or plasma sodium measu rement (moles/volume)Ordered By: Chucho Saldaña on 11-17-2021 Sodium [Moles/Vol] 142 mmol/L 136-146 [facility] Serum or plasma total biliru bin measurement (mass/volume)Ordered By: Chucho Saldaña on 11-17-2021 Bilirubin [Mass/Vol] 0.7 mg/dL 0.3-1.2 [facility] Serum or plasma total carbon dioxide measurement (moles/volume)Ordered By: Chucho Saldaña on 11-17-2021 CO2 [Moles/Vol] 27.0 mmol/L 22.0-30.0 [facility] Serum or plasma urea nitroge n measurement (mass/volume)Ordered By: Chucho Saldaña on 11-17-2021 Urea nitrogen [Mass/Vol] 9 mg/dL 9-23 [facility] Specific gravity Auto test s trip (U) [Rel density]Ordered By: Chucho Saldaña on 11-17-2021 Specific gravity (U) [Rel density] 1.013 1.001-1.030 [facility] Squamous epithelial cells de tection in urine sediment by light microscopyOrdered By: Chucho Saldaña on 11-17-2021 Epithelial cells.squamous LM Ql (Urine sed) 0-1 [HPF] 0-2 [facility] Urine bacteria detection by automated methodOrdered By: Chucho Saldaña on 11-17-2021 Bacteria Auto Ql (U) None seen None Seen [facility] Urine clarity by refractomet ry automatedOrdered By: Chucho Saldaña on 11-17-2021 Clarity Refractometry automated (U) Clear Clear [facility] Urine glucose measurement by automated test strip (mass/volume)Ordered By: Chucho Saldaña on 11-17-2021 Glucose Auto test strip (U) [Mass/Vol] Normal mg/dL Normal [facility] Urine hemoglobin detection b y automated test stripOrdered By: Chucho Saldaña on 11-17-2021 Hemoglobin Auto test strip Ql (U) Trace Negative [facility] Urine leukocyte esterase det ection by automated test stripOrdered By: Chucho Saldaña on 11-17-2021 Leukocyte esterase Auto test strip Ql (U) 1+ Negative [facility] Urobilinogen Auto test strip (U) [Mass/Vol]Ordered By: Chucho Saldaña on 11-17-2021 Urobilinogen (U) [Mass/Vol] Normal mg/dL Normal [facility] pH Auto test strip (U)Ordere d By: Chucho Saldaña on 11-17-2021 pH (U) 7.5 [pH] 5.0-9.0 [facility] CNPNon 11-03-2021 CNPN Telephone (GASTMN) ---- DIANELYS WOMACK ([id number]) 1950 F Date Time Provider Department 11/03/21 TAZ TEJEDA During your visit today, we recorded the following information about you: Joan Acevedo SUPV 11/03/2021 3:[address] new egd/colonoscopy w MAC orders to be scheduled at Q3 Please contact patient's daughter(Shy) to schedule. # [phone] Keiko Hernandez RN 11/04/2021 9:51 AM Signed [...] [R19.7] Order(s):COLONOSCOP Y DIAGNOSTIC [GI11] Order #: [id number] FUTURE EGD DIAGNOSTIC [GI9] Order #: [id number] FUTURE Problem List As Of Date: 11/03/2021 (None) Encounter Status:Closed by TAZ TEJEDA on 11/05/21 Normal [facility] C diff Tox gens Stl Ql VERONICA+p robeon 10-31-2021 C. difficile toxin genes VERONICA+probe Ql (Stl) Negative Normal Negative for C. difficile toxin by PCR [facility] Comment on above: Order Comment: Speci men Type: STOOL SPECIMENOrdering Facility: [facility] Address: [address] [place] [address] Performed By: #### 5 4067-4 ####[facility] LABCLIA [id number] [address] [place] Calprotectin Stl-nton 10-14 Calprotectin (Stl) [Mass/Mass] 205.7 mg/kg High 0-50 [facility] Comment on above: Order Comment: Speci men Type: STOOL SPECIMENOrdering Facility: [facility] Address: [address] [place] [address] Result Comment: INTE RPRETIVE INFORMATION: Calprotectin, Fecal <50.0 mg/kg : Normal 50.0-120.0 mg/kg: Borderline. Test should be re-evaluated in 4-6 wks. >120.0 mg/kg: Abnormal Performed By: #### 3 8445-3 ####[facility] LABCLIA [id number] [address] [place] CBC panel Auto (Bld)on 10-29 Erythrocyte distribution width (RBC) [Ratio] 15.2 % High 11.5-15.0 [facility] Comment on above: Order Comment: Speci men Type: BLOOD SPECIMENOrdering Facility: [facility] Address: [address] [place] [address] Performed By: #### 5 8410-2 ####[facility] LABCLIA [id number] [place] [address] Hematocrit (Bld) [Volume fraction] 42.2 % Normal 36.0-46.0 [facility] Comment on above: Order Comment: Speci men Type: BLOOD SPECIMENOrdering Facility: [facility] Address: [address] [place] [address] Performed By: #### 5 8410-2 ####[facility] LABIA [id number] [place] [address] Hemoglobin (Bld) [Mass/Vol] 13.2 g/dL Normal 11.5-15.5 [facility] Comment on above: Order Comment: Speci men Type: BLOOD SPECIMENOrdering Facility: [facility] Address: [address] [place] [address] Performed By: #### 5 8410-2 ####[facility] LABCLIA [id number] [place] [address] MCH (RBC) [Entitic mass] 27.2 pg Normal 26.0-34.0 [facility] Comment on above: Order Comment: Speci men Type: BLOOD SPECIMENOrdering Facility: [facility] Address: [address] [place] [address] Performed By: #### 5 8410-2 ####[facility] LABIA [id number] [place] [address] MCHC (RBC) [Mass/Vol] 31.3 g/dL Normal 30.5-36.0 [facility] Comment on above: Order Comment: Speci men Type: BLOOD SPECIMENOrdering Facility: [facility] Address: [address] [place] [address] Performed By: #### 5 8410-2 ####[facility] LABIA [id number] [place] [address] MCV (RBC) [Entitic vol] 86.8 fL Normal 80.0-100.0 C [facility] Comment on above: Order Comment: Speci men Type: BLOOD SPECIMENOrdering Facility: [facility] Address: [address] [place], [place] [address] Performed By: #### 5 8410-2 ####[facility] LABIA [id number] [place] [address] Nucleated RBC (Bld) [#/Vol] 10*3/uL Normal <0.01 [facility] Comment on above: Order Comment: Speci men Type: BLOOD SPECIMENOrdering Facility: [facility] Address: [address] [place] [address] Performed By: #### 5 8410-2 ####[facility] LABIA [id number] [place] [address] Platelet mean volume (Bld) [Entitic vol] 10.0 fL Normal 9.0-12.7 [facility] Comment on above: Order Comment: Speci men Type: BLOOD SPECIMENOrdering Facility: [facility] Address: [address] [place], [place] [address] Performed By: #### 5 8410-2 ####[facility] LABIA [id number] [place] [address] Platelets (Bld) [#/Vol] 187 10*3/uL Normal 150-400 [facility] Comment on above: Order Comment: Speci men Type: BLOOD SPECIMENOrdering Facility: [facility] Address: [address] [place] [address] Performed By: #### 5 8410-2 ####[facility] LABCLIA [id number] [place] [address] RBC (Bld) [#/Vol] 4.86 10*6/uL Normal 3.90-5.20 [facility] Comment on above: Order Comment: Speci men Type: BLOOD SPECIMENOrdering Facility: [facility] Address: [address] [place] [address] Performed By: #### 5 8410-2 ####[facility] LABCLIA [id number] [place] [address] WBC (Bld) [#/Vol] 8.51 10*3/uL Normal 3.70-11.00 [facility] Comment on above: Order Comment: Speci men Type: BLOOD SPECIMENOrdering Facility: [facility] Address: [address] [place] [address] Performed By: #### 5 8410-2 ####[facility] LABCLIA [id number] [place] [address] CELIAC SCREENon 10-29-2021 GLIAD DEAMIDATED IGA QUAL Negative Normal Negative, Test not Indicated [facility] Comment on above: Order Comment: Speci men Type: BLOOD SPECIMENOrdering Facility: [facility] Address: [address] [place] [address] Result Comment: This is used as an aid in diagnosis of celiac disease. Clinical correlation is required. The following results were obtained with an [employer] QUANTA Lite Gliadin IgA BRIANA Gliadin. Gliadin IgA values obtained with different manufacturers' assay methods may not be used interchangeably. The magnitude of the reported IgA levels cannot be correlated to an endpoint titer. Performed By: #### L [id number] ####[facility] LABCLIA [id number] [place] [address] [place] Gliadin peptide IgA Qn (S) 4 Units Normal <20 [facility] Comment on above: Order Comment: Speci men Type: BLOOD SPECIMENOrdering Facility: [facility] Address: [address] [place] [address] Performed By: #### L [id number] ####[facility] LABCLIA [id number] [place] [address] [place] INTERPRETATION No serological evidence of celiac disease, however, if celiac disease is clinically suspected and patient is not on gluten-free diet, histological diagnosis may be considered. HLA testing may help with risk assessment. Normal [facility] Comment on above: Order Comment: Speci men Type: BLOOD SPECIMENOrdering Facility: [facility] Address: [address] [place] [address] Performed By: #### L [id number] ####[facility] LABCLIA [id number] [address] TRANSGLUTAMINASE IGA QUAL Negative Normal Negative, Test not Indicated [facility] Comment on above: Order Comment: Speci men Type: BLOOD SPECIMENOrdering Facility: [facility] Address: [address] [place] [address] Result Comment: The following results were obtained with the [employer] QAUNTA Lite h-tTG IgA BRIANA. h-tTG IgA values obtained with different manufacturers' assay methods may not be used interchangeable. The magnitude of the reported IgA levels cannot be correlated to an endpoint titer. This is used as an aid in diagnosis of celiac disease. Clinical correlation is required. Performed By: #### L [id number] ####[facility] LABIA [id number] [address] [place] tTG IgA Qn (S) 8 Units Normal <20 [facility] Comment on above: Order Comment: Speci men Type: BLOOD SPECIMENOrdering Facility: [facility] Address: [address] [place] [address] Performed By: #### L [id number] ####[facility] LABCLIA [id number] [address] [place] Comprehensive metabolic 2000 panelon 10-29-2021 Albumin [Mass/Vol] 4.0 g/dL Normal 3.9-4.9 [facility] Comment on above: Order Comment: Speci men Type: BLOOD SPECIMENOrdering Facility: [facility] Address: [address] [place] [address] Performed By: #### 2 4323-8 ####[facility] LABCLIA [id number] [place] [address] ALP [Catalytic activity/Vol] 124 U/L High 34-123 [facility] Comment on above: Order Comment: Speci men Type: BLOOD SPECIMENOrdering Facility: [facility] Address: [address] [place] [address] Performed By: #### 2 4323-8 ####[facility] LABCLIA [id number] [place] [address] ALT [Catalytic activity/Vol] 23 U/L Normal 7-38 [facility] Comment on above: Order Comment: Speci men Type: BLOOD SPECIMENOrdering Facility: [facility] Address: [address] [place] [address] Performed By: #### 2 4323-8 ####[facility] LABCLIA [id number] [place] [address] Anion gap [Moles/Vol] 9 mmol/L Normal 9-18 [facility] Comment on above: Order Comment: Speci men Type: BLOOD SPECIMENOrdering Facility: [facility] Address: [address] [place] [address] Performed By: #### 2 4323-8 ####[facility] LABCLIA [id number] [place] [address] AST [Catalytic activity/Vol] 37 U/L High 13-35 [facility] Comment on above: Order Comment: Speci men Type: BLOOD SPECIMENOrdering Facility: [facility] Address: [address] [place] [address] Performed By: #### 2 4323-8 ####[facility] LABCLIA [id number] [place] [address] Bilirubin [Mass/Vol] 0.5 mg/dL Normal 0.2-1.3 [facility] Comment on above: Order Comment: Speci men Type: BLOOD SPECIMENOrdering Facility: [facility] Address: [address] [place] [address] Performed By: #### 2 4323-8 ####[facility] LABCLIA [id number] [place] [address] Calcium [Mass/Vol] 10.0 mg/dL Normal 8.5-10.2 [facility] Comment on above: Order Comment: Speci men Type: BLOOD SPECIMENOrdering Facility: [facility] Address: [address] [place] [address] Performed By: #### 2 4323-8 ####[facility] LABCLIA [id number] [place] [address] Chloride [Moles/Vol] 105 mmol/L Normal 97-105 [facility] Comment on above: Order Comment: Speci men Type: BLOOD SPECIMENOrdering Facility: [facility] Address: [address] [place] [address] Performed By: #### 2 4323-8 ####[facility] LABCLIA [id number] [place] [address] CO2 [Moles/Vol] 29 mmol/L Normal 22-30 [facility] Comment on above: Order Comment: Speci men Type: BLOOD SPECIMENOrdering Facility: [facility] Address: [address] [place] [address] Performed By: #### 2 4323-8 ####[facility] LABCLIA [id number] [place] [address] Creatinine [Mass/Vol] 1.17 mg/dL High 0.58-0.96 [facility] Comment on above: Order Comment: Speci men Type: BLOOD SPECIMENOrdering Facility: [facility] Address: [address] [place] [address] Performed By: #### 2 4323-8 ####[facility] LABCLIA [id number] [place] [address] ESTIMATED GLOMERULAR FILTRATION RATE 50 mL/min/1.73m??? Low >=60 [facility] Comment on above: Order Comment: Speci men Type: BLOOD SPECIMENOrdering Facility: [facility] Address: [address] [place] [address] Result Comment: Hortencia mated Glomerular Filtration Rate [...] actual GFR. Performed By: #### 2 4323-8 ####[facility] LABCLIA [id number] [place] [address] Glucose [Mass/Vol] 97 mg/dL Normal 74-99 [facility] Comment on above: Order Comment: Magnus montoya Type: BLOOD SPECIMENOrdering Facility: [facility] Address: [address] [place] [address] Result Comment: The [place] [employer] (ADA) provides guidance for cutoff [...] Standards of Medical Care in Diabetes 2016, [place] [employer]. Diabetes Care. 2016.39(Suppl 1). Performed By: #### 2 4323-8 ####[facility] LABCLIA [id number] [place] [address] Potassium [Moles/Vol] 3.4 mmol/L Low 3.7-5.1 [facility] Comment on above: Order Comment: Speci men Type: BLOOD SPECIMENOrdering Facility: [facility] Address: [address] [place] [address] Performed By: #### 2 4323-8 ####[facility] LABCLIA [id number] [place] [address] Protein [Mass/Vol] 6.9 g/dL Normal 6.3-8.0 [facility] Comment on above: Order Comment: Speci men Type: BLOOD SPECIMENOrdering Facility: [facility] Address: [address] [place] [address] Performed By: #### 2 4323-8 ####[facility] LABCLIA [id number] [place] [address] Sodium [Moles/Vol] 143 mmol/L Normal 136-144 [facility] Comment on above: Order Comment: Speci men Type: BLOOD SPECIMENOrdering Facility: [facility] Address: [address] [place] [address] Performed By: #### 2 4323-8 ####[facility] LABCLIA [id number] [place] [address] Urea nitrogen [Mass/Vol] 19 mg/dL Normal 7-21 [facility] Comment on above: Order Comment: Speci men Type: BLOOD SPECIMENOrdering Facility: [facility] Address: [address] [place] [address] Performed By: #### 2 4323-8 ####[facility] LABCLIA [id number] [place] [address] IgA SerPl-mCncon 10-29-2021 IgA [Mass/Vol] 343 mg/dL Normal 70-400 [facility] Comment on above: Order Comment: Speci men Type: BLOOD SPECIMENOrdering Facility: [facility] Address: [address] [id number] Performed By: #### 2 458-8 ####[facility] LABCLIA [id number] [place] [address] [place] TSH SerPl-aCncon 10-29-2021 TSH Qn 0.048 m[IU]/L Low 0.270-4.200 [facility] Comment on above: Order Comment: Speci men Type: BLOOD SPECIMENOrdering Facility: [facility] Address: [address] [place] [address] Performed By: #### 3 016-3 ####[facility] LABCLIA [id number] [place] [address] [place] CARDIAC AMAN ADMITon 022 CK [Catalytic activity/Vol] 69 U/L Normal 26-192 [facility] Comment on above: Performed By: #### C JAKUB MOLINA #### [facility] [address] [address] [address] Sheila Mittal CK.MB [Mass/Vol] 2.36 ng/mL Normal <=3.60 [facility] Comment on above: Performed By: #### C JAKUB MOLINA #### [facility] [address] [address] [address] Sheila Mittal HSTROP 9.5 pg/mL Normal 4.0-51.3 [facility] Comment on above: Result Comment: CUT- OFF POINTS HAVE BEEN ESTABLISHED BASED ON THE FOURTH UNIVERSAL DEFINITIONS OF MYOCARDIAL INFARCTION. THE UPPER REFERENCE LIMIT (URL) OF TROPONIN, DEFINED THE 99TH PERCENTILE OF cTnI DISTRIBUTION IN A REFERENCE POPULATION, HAS BEEN CONFIRMED THE DECISION THRESHOLD FOR [place] DIAGNOSIS. Performed By: #### C JAKUB MOLINA #### [facility] [address] [address] [address] Sheila Mittal TEMO 97 ng/mL Critically high 9-82 [facility] Comment on above: Performed By: #### C JAKUB MOLINA #### [facility] [address] [address] [address] Sheila Mittal CBC AUTO DIFFon 10-18-2021 BASO # 0.0 103/ul Normal 0.0-0.1 [facility] Comment on above: Performed By: #### C BC #### [facility] [address] [address] [address] Sheila Mittal Basophils/100 WBC (Bld) 0.4 % Normal 0.2-2.0 [facility] Comment on above: Performed By: #### C BC #### [facility] [address] [address] [address] Sheila Mittal EO # 0.1 103/ul Normal 0.0-0.7 [facility] Comment on above: Performed By: #### C BC #### [facility] [address] [place] [address] Dr. Sheila Mittal Eosinophils/100 WBC (Bld) 1.0 % Normal 0.9-7.0 [facility] Comment on above: Performed By: #### C BC #### [facility] [address] [place] [address] Dr. Sheila Mittal Erythrocyte distribution width (RBC) [Ratio] 15.0 % Normal 11.0-15.0 [facility] Comment on above: Performed By: #### C BC #### [facility] [address] [place] [address] Dr. Sheila Mittal Hematocrit (Bld) [Volume fraction] 45.0 % Normal 36.0-48.0 [facility] Comment on above: Performed By: #### C BC #### [facility] [address] [place] [address] Dr. Sheila Mittal Hemoglobin (Bld) [Mass/Vol] 14.3 g/dL Normal 12.0-16.0 [facility] Comment on above: Performed By: #### C BC #### [facility] [address] [place] [address] Dr. Sheila Mittal IG # 0.04 10e3/ul Critically high 0.00-0.03 [facility] Comment on above: Performed By: #### C BC #### [facility] [address] [place] [address] Dr. Sheila Mittal IG % 0.4 % Normal 0.0-0.5 [facility] Comment on above: Performed By: #### C BC #### [facility] [address] [place] [address] Dr. Sheila Mittal LYMPH # 1.5 103/ul Normal 1.2-3.8 [facility] Comment on above: Performed By: #### C BC #### [facility] [address] [place] [address] Dr. Sheila Mittal Lymphocytes/100 WBC (Bld) 17.0 % Critically low 20.5-60.0 [facility] Comment on above: Performed By: #### C BC #### [facility] [address] [place] [address] Dr. Sheila Mittal MANUAL DIFF REQ NO Normal [facility] Comment on above: Performed By: #### C BC #### [facility] [address] [place] [address] Dr. Sheila Mittal MCH (RBC) [Entitic mass] 27.3 pg Normal 26.7-34.0 [facility] Comment on above: Performed By: #### C BC #### [facility] [address] [place] [address] Dr. Sheila Mittal MCHC (RBC) [Mass/Vol] 31.8 g/dL Normal 29.9-35.2 [facility] Comment on above: Performed By: #### C BC #### [facility] [address] [place] [address] Dr. Sheila Mittal MCV (RBC) [Entitic vol] 85.9 fL Normal 81.0-99.0 [facility] Comment on above: Performed By: #### C BC #### [facility] [address] [place] [address] Dr. Sheila Mittal MONO # 0.6 103/ul Normal 0.3-0.8 [facility] Comment on above: Performed By: #### C BC #### [facility] [address] [place] [address] Dr. Sheila Mittal Monocytes/100 WBC (Bld) 6.6 % Normal 1.7-12.0 [facility] Comment on above: Performed By: #### C BC #### [facility] [address] [place] [address] Dr. Sheila Mittal NEUT # 6.8 103/ul Critically high 1.4-6.5 [facility] Comment on above: Performed By: #### C BC #### [facility] [address] [place] [address] Dr. Sheila Mittal Neutrophils/100 WBC (Bld) 74.6 % Normal 43.0-75.0 [facility] Comment on above: Performed By: #### C BC #### [facility] [address] [place] [address] Dr. Sheila Mittal Platelet mean volume (Bld) [Entitic vol] 9.3 fL Critically low 9.5-13.5 [facility] Comment on above: Performed By: #### C BC #### [facility] [address] [place] [address] Dr. Sheila Mittal PLT 231 103/ul Normal 150-450 [facility] Comment on above: Performed By: #### C BC #### [facility] [address] [place] [address] Dr. Sheila Mittal RBC 5.24 106/ul Normal 4.20-5.40 [facility] Comment on above: Performed By: #### C BC #### [facility] [address] [place] [address] Dr. Sheila Mittal WBC 9.1 103/ul Normal 4.0-11.0 [facility] Comment on above: Performed By: #### C BC #### [facility] [address] [place] [address] Dr. Sheila Mittal ER URINE PROFILEon 2 Bilirubin Ql (U) SMALL Abnormal NEGATIVE [facility] Comment on above: Performed By: #### E DAWSONR UMKAMRANRO #### [facility] [address] [place] [address] Dr. Sheila Mittal Clarity (U) SL CLOUDY Abnormal CLEAR [facility] Comment on above: Performed By: #### Leonardo SLADE UMICRO #### [facility] [address] [place] [address] Dr. Sheila Mittal Color (U) YELLOW Normal YELLOW [facility] Comment on above: Performed By: #### Leonardo SLADE UMICRO #### [facility] [address] [place] [address] Dr. Sheila ANGULO A micrscopic examination will be performed if indicated. Normal [facility] Comment on above: Performed By: #### Leonardo SLADE UMICRO #### [facility] [address] [place] [address] Dr. Sheila Mittal Glucose Ql (U) Negative Normal NEGATIVE [facility] Comment on above: Performed By: #### Leonardo SLADE UMICRO #### [facility] [address] [place] [address] Dr. Sheila Mittal Hemoglobin Ql (U) Negative Normal NEGATIVE [facility] Comment on above: Performed By: #### Leonardo SLADE UMICRO #### [facility] [address] [place] [address] Dr. Sheila Mittal Ketones Ql (U) TRACE Abnormal NEGATIVE [facility] Comment on above: Performed By: #### Leonardo SLADE UMICRO #### [facility] [address] [place] [address] Dr. Sheila Mittal LEUKOCYTES TRACE Abnormal NEGATIVE [facility] Comment on above: Performed By: #### Leonardo SLADE UMICRO #### [facility] [address] [place] [address] Dr. Sheila Mittal Nitrite Ql (U) Negative Normal NEGATIVE [facility] Comment on above: Performed By: #### Leonardo SLADE UMICRO #### [facility] [address] [place] [address] Dr. Sheila Mittal pH (U) 7.0 [pH] Normal 5-9 [facility] Comment on above: Performed By: #### Leonardo SLADE UMICRO #### [facility] [address] [place] [address] Dr. Sheila Mittal Protein (U) [Mass/Vol] 100 mg/dL Abnormal NEGAT PATRIZIA/ TRACE [facility] Comment on above: Performed By: #### OZIEL KULKARNI #### [facility] [address] [place] [address] Dr. Sheila Mittal SPEC GRAVITY 1.015 Normal 1.005-<=1.02 5 [facility] Comment on above: Performed By: #### OZIEL KULKARNI #### [facility] [address] [place] [address] Dr. Sheila Mittal UR MICRO IND INDICATED Normal [facility] Comment on above: Performed By: #### OZIEL KULKARNI #### [facility] [address] [place] [address] Dr. Sheila Mittal Urobilinogen Qn (U) 0.2 {Brooke'U}/dL Normal 0.2 - 1. 0 [facility] Comment on above: Performed By: #### OZIEL KULKARNI #### [facility] [address] [place] [address] Dr. Sheila Mittal LACTATE/LACTIC ACIDon 2021 Lactate [Moles/Vol] 1.9 mmol/L Normal 0.4-1.9 [facility] Comment on above: Performed By: #### L ACT #### [facility] [address] [place] [address] Dr. Sheila Mittal PROF 14(COMP METB)on 022 Albumin [Mass/Vol] 3.8 g/dL Normal 3.4-5.0 [facility] Comment on above: Performed By: #### C JAKUB MOLINA #### [facility] [address] [place] [address] Dr. Sheila Mittal Albumin/Globulin [Mass ratio] 0.8 {ratio} Normal [facility] Comment on above: Performed By: #### C JAKUB MOLINA #### [facility] [address] [place] [address] Dr. Sheila Mittal ALP [Catalytic activity/Vol] 155 U/L Critically high 46-116 [facility] Comment on above: Performed By: #### C MP, CMADM #### [facility] [address] [address] [address] Sheila Mittal ALT [Catalytic activity/Vol] 37 U/L Normal 14-59 [facility] Comment on above: Performed By: #### C MP, CMADM #### [facility] [address] [address] [address] Sheila Mittal Anion gap [Moles/Vol] 13.5 mmol/L Normal [facility] Comment on above: Performed By: #### C MP, CMADM #### [facility] [address] [address] [address] Sheila Mittal AST [Catalytic activity/Vol] 42 U/L Critically high 15-37 [facility] Comment on above: Performed By: #### C MP, CMADM #### [facility] [address] [address] [address] Sheila Mittal Bilirubin [Mass/Vol] 0.7 mg/dL Normal 0.2-1.0 [facility] Comment on above: Performed By: #### C MP, CMADM #### [facility] [address] [address] [address] Sheila Mittal Calcium [Mass/Vol] 10.0 mg/dL Normal 8.5-10.1 [facility] Comment on above: Performed By: #### C MP, CMADM #### [facility] [address] [address] [address] Sheila Mittal Chloride [Moles/Vol] 103 mmol/L Normal 98-107 [facility] Comment on above: Performed By: #### C MP, CMADM #### [facility] [address] [address] [address] Sheila Mittal CO2 [Moles/Vol] 29.7 mmol/L Normal 21.0-32.0 [facility] Comment on above: Performed By: #### C MP, CMADM #### [facility] [address] [address] [address] Sheila Mittal Creatinine [Mass/Vol] 1.06 mg/dL Critically high 0.55-1.02 [facility] Comment on above: Performed By: #### C MP, CMADM #### [facility] [address] [address] [address] Sheila Mittal EGFR-AF INDONESIAN >60 Normal >=60 [facility] Comment on above: Performed By: #### C MP, CMADM #### [facility] [address] [address] [address] Sheila Mittal EGFR-NON AF INDONESIAN 51 mL/min/1.73m2 Critically low >=60 [facility] Comment on above: Performed By: #### C MP, CMADM #### [facility] [address] [place] [address] Dr. Sheila Mittal Globulin (S) [Mass/Vol] 4.5 g/dL Normal [facility] Comment on above: Performed By: #### C MP, CMADM #### [facility] [address] [address] [address] Sheila Mittal Glucose [Mass/Vol] 104 mg/dL Normal 74-106 [facility] Comment on above: Performed By: #### C TRACY, CMADM #### [facility] [address] [address] [address] Sheila Mittal Potassium [Moles/Vol] 3.2 mmol/L Critically low 3.5-5.1 [facility] Comment on above: Performed By: #### C MP, CMADM #### [facility] [address] [address] [address] Sheila Mittal Protein [Mass/Vol] 8.3 g/dL Critically high 6.4-8.2 [facility] Comment on above: Performed By: #### C MP, CMADM #### [facility] [address] [place] [address] Dr. Sheila Mittal Sodium [Moles/Vol] 143 mmol/L Normal 136-145 [facility] Comment on above: Performed By: #### C MP, CMADM #### [facility] [address] [place] [address] Dr. Sheila Mittal Urea nitrogen [Mass/Vol] 10.0 mg/dL Normal 7.0-18.0 [facility] Comment on above: Performed By: #### JAKUB Rooney MP #### [facility] [address] [address] [address] Sheila Mittal Urea nitrogen/Creatinine [Mass ratio] 9.4 mg/mg Normal [facility] Comment on above: Performed By: #### JAKUB Rooney MP #### [facility] [address] [address] [address] Sheila Mittal URINE MICROSCOPIC ONLYon BACTERIA NONE SEEN Normal NONE SEEN [facility] Comment on above: Performed By: #### WHITNEY KULKARNIRO ####[facility] [address] [address]DrBubba Mittal Bacteria identified Cx Nom (U) NOT INDICATED Normal [facility] Comment on above: Performed By: #### WHITNEY KULKARNIRO ####[facility] [address] [place] [address]DrBubba Mittal CAST SEEN Abnormal NONE SEEN [facility] Comment on above: Performed By: #### WHITNEY KULKARNIRO ####[facility] [address] [place] [address]DrBubba Mittal Crystals LM Nom (Urine sed) NONE SEEN Normal NONE SEEN [facility] Comment on above: Performed By: #### Leonardo SLADE UMICRO ####[facility] [address] [place] [address]DrBubba Mittal Epithelial cells LM Ql (Urine sed) FEW Abnormal NONE SEEN /RARE [facility] Comment on above: Performed By: #### Leonardo SLADE UMICRO ####[facility] [address] [place] [address]DrBubba Mittal MUCOUS NONE SEEN Normal NONE SEEN [facility] Comment on above: Performed By: #### Leonardo SLADE UMICRO ####[facility] [address] [address]DrBubba Mittal RBC NONE SEEN Abnormal 0-2 [facility] Comment on above: Performed By: #### OZIEL KULKARNI ####[facility] [address] [place], [place] [address]Df. Sheila Mittal WBC 0-2 Abnormal NONE SEEN [facility] Comment on above: Performed By: #### E OZIEL SLADE ####[facility] [address] [place], [place] [address]Zi. Sheila Mittal XR CHEST 1 Von 10-18-2021 [...] DELISA EVANS Date: 2021-10-18 16:27 Normal [facility] Basic Metabolic Panelon 06-0 Calcium [Mass/Vol] 9.6 mg/dL Normal 8.2-10.2 [facility] Comment on above: Performed By: #### U YUDI, PTH, PHOS, BMP, [id number] #### [facility] [address] Chloride [Moles/Vol] 102 mmol/L Normal 95-114 [facility] Comment on above: Performed By: #### U YUDI, PTH, PHOS, BMP, [id number] #### [facility] [address] CO2 [Moles/Vol] 24.2 mmol/L Normal 22.0-30.0 [facility] Comment on above: Performed By: #### U YUDI, PTH, PHOS, BMP, [id number] #### [facility] [address] [place] [id number] [place] Creatinine [Mass/Vol] 1.01 mg/dL Normal 0.44-1.03 [facility] Comment on above: Performed By: #### U YUDI, PTH, PHOS, BMP, [id number] #### [facility] [address] [place] [address] [place] Estimated GFR ( [place] > 60 [facility] Comment on above: Result Comment: GFR estimated reference range: According to KDOQI guidelines, <60 ml/min/1.73m2 is sufficient to diagnose a patient with chronic kidney disease. Performed By: #### U YUDI, PTH, PHOS, BMP, [id number] #### [facility] [address] [place] [address] [place] Estimated GFR (Non- Am 54 [facility] Comment on above: Performed By: #### U YUDI, PTH, PHOS, BMP, [id number] #### [facility] [address] [place] [address] [place] Glucose [Mass/Vol] 95 mg/dL Normal 70-100 [facility] Comment on above: Result Comment: [place] Glucose Reference Range is dependent on time and content of last meal. Glucose of more than 200 mg/dL in a nonstressed, ambulatory subject supports the diagnosis of Diabetes Mellitus. ADA recommended reference range Performed By: #### U YUDI, PTH, PHOS, BMP, [id number] #### [facility] [address] [place] [address] [place] Potassium [Moles/Vol] 3.2 mmol/L Low 3.5-5.1 [facility] Comment on above: Performed By: #### U YUDI, PTH, PHOS, BMP, [id number] #### [facility] [address] [place] [address] [place] Sodium [Moles/Vol] 138 mmol/L Normal 136-146 [facility] Comment on above: Performed By: #### U YUDI, PTH, PHOS, BMP, [id number] #### [facility] [address] [place] [address] [place] Urea nitrogen [Mass/Vol] 16 mg/dL Normal 9-23 [facility] Comment on above: Performed By: #### U YUDI, PTH, PHOS, BMP, [id number] #### [facility] [address] [place] [address] [place] Creatinine and Glomerular fi ltration rate.predicted panel (S/P/Bld)Ordered By: Daniel Ma on 07-15-2021 Creatinine [Mass/Vol] 1.01 mg/dL 0.44-1.03 [facility] Estimated glomerular filtrat ion rate (GFR) non- AmericanOrdered By: Daniel Ma on 07-15-2021 GFR/1.73 sq M.predicted among non-blacks MDRD (S/P/Bld) [Vol rate/Area] 54 mL/Min [facility] No Panel InformationOrdered By: Daniel Ma on 07-15-2021 25-Hydroxy Vitamin D Total 42.9 ng/mL 30-100 [facility] Comment on above: VITAMIN D STATUS 25( [place])VITAMIN D RANGE (ng/mL) Deficient <20 Insufficient 20 to <30 Sufficient 30 to 100 Reference: Jenniffer MF,Neal HORNE, Mary FERGUSON, et al. Evaluation,treatment, and prevention of vitamin D deficiency; an Endocrine Society clinical practice guideline. JCEM. 2010; 96(7):1911-30. Estimated GFR () > 60 mL/Min [facility] Comment on above: GFR estimated refere nce range: According to KDOQI guidelines, <60 ml/min/1.73m2 is sufficient to diagnose a patient with chronic kidney disease. Pharmacy Creatinine Clearance (Chem N/A [facility] No Panel Informationon 07-15 9.6\S\9.6 Normal 8.2-10.2 [place] [address] DO Work Phone: 24.2\S\24.2 Normal 22.0-30.0 [facility] 3 DO Work Phone: 102\S\102 Normal 95-114 [place] [address] DO Work Phone: 3.2\S\3.2 Normal 2.5-4.6 [facility] 3 DO Work Phone: 138\S\138 Normal 136-146 [facility] 3 DO Work Phone: > 60 Normal [place] [address] DO Work Phone: Comment on above: GFR estimated refere nce range: According to KDOQI guidelines, <60 ml/min/1.73m2 is sufficient to diagnose a patient with chronic kidney disease. 54\S\54 Normal [place] [address] DO Work Phone: 1.01\S\1.01 Normal 0.44-1.03 [place] [address] DO Work Phone: 16\S\16 Normal 9-23 [place] [address] DO Work Phone: 95\S\95 Normal 70-100 [place] [address] DO Work Phone: Comment on above: Random Glucose Refer ence Range is dependent on time and content of last meal. Glucose of more than 200 mg/dL in a nonstressed, ambulatory subject supports the diagnosis of Diabetes Mellitus. ADA recommended reference range 4.7\S\4.7 Normal 2.6-7.2 [place] [address] DO Work Phone: 42.9\S\42.9 Normal 30-100 [place] [address] DO Work Phone: Comment on above: VITAMIN D STATUS 25( [place])VITAMIN D RANGE (ng/mL) Deficient <20 Insufficient 20 to <30 Sufficient 30 to 100 Reference: Jenniffer MF,Neal NC, Mary FERGUSON, et al. Evaluation,treatment, and prevention of vitamin D deficiency; an Endocrine Society clinical practice guideline. JCEM. 2010; 96(7):1911-30. 48.8\S\48.8 Normal 12-88 [place] [address] DO Work Phone: Comment on above: PERFORMED BY:[address] [address] [place], [place] [id number] MEDICAL DIRECTORJIANLAN SUN M.D. Parathyroid Hormone Intacton 07-15-2021 Parathyroid Hormone Intact 48.8 pg/mL Normal [facility] Comment on above: Result Comment: PERF ORMED BY: [place] [address] PATHOLOGIST LEATHER CARVER LISA VERDE M.D. Performed By: #### C BC, LIPASE, BMP, HEPATIC #### [facility] [address] Phosphate [Mass/volume] in S wero or PlasmaOrdered By: Daniel Ma on 07-15-2021 Phosphate [Mass/Vol] 3.2 mg/dL 2.5-4.6 [facility] Phosphoruson 07-15-2021 Phosphate [Mass/Vol] 3.2 mg/dL Normal 2.5-4.6 [facility] Comment on above: Performed By: #### U YUDI, PTH, PHOS, BMP, [id number] #### [facility] [address] [place] [address] Serum or plasma calcium jannet urement (mass/volume)Ordered By: Daniel Ma on 07-15-2021 Calcium [Mass/Vol] 9.6 mg/dL 8.2-10.2 [facility] Serum or plasma chloride yair surement (moles/volume)Ordered By: Daniel Ma on 07-15-2021 Chloride [Moles/Vol] 102 mmol/L 95-114 [facility] Serum or plasma glucose jannet urement (mass/volume)Ordered By: Daniel Ma on 07-15-2021 Glucose [Mass/Vol] 95 mg/dL 70-100 [facility] Comment on above: ADA recommended refe rence range Random Glucose Reference Range is dependent on time and content of last meal. Glucose of more than 200 mg/dL in a nonstressed, ambulatory subject supports the diagnosis of Diabetes Mellitus. Serum or plasma intact parat hyroid hormone measurement (mass/volume)Ordered By: Daniel Ma on 07-15-2021 Parathyrin.intact [Mass/Vol] 48.8 pg/mL [facility] Serum or plasma potassium me asurement (moles/volume)Ordered By: Daniel Ma on 07-15-2021 Potassium [Moles/Vol] 3.2 mmol/L 3.5-5.1 [facility] Serum or plasma sodium measu rement (moles/volume)Ordered By: Daniel Ma on 07-15-2021 Sodium [Moles/Vol] 138 mmol/L 136-146 [facility] Serum or plasma total carbon dioxide measurement (moles/volume)Ordered By: Dnaiel Ma on 07-15-2021 CO2 [Moles/Vol] 24.2 mmol/L 22.0-30.0 [facility] Serum or plasma urea nitroge n measurement (mass/volume)Ordered By: Daniel Ma on 07-15-2021 Urea nitrogen [Mass/Vol] 16 mg/dL 9-23 [facility] Serum or plasma uric acid me asurement (mass/volume)Ordered By: Daniel Ma on 07-15-2021 Urate [Mass/Vol] 4.7 mg/dL 2.6-7.2 [facility] Uric Acidon 07-15-2021 Urate [Mass/Vol] 4.7 mg/dL Normal 2.6-7.2 [facility] Comment on above: Performed By: #### U YUDI, PTH, PHOS, BMP, [id number] #### [facility] [address] Vitamin D 25 Hydroxy Totalon 07-15-2021 Vitamin D 25 Hydroxy Total 42.9 ng/mL Normal 30-100 [facility] Comment on above: Result Comment: [place] MIN D STATUS 25([place])VITAMIN D RANGE (ng/mL) Deficient <20 Insufficient 20 to <30 Sufficient 30 to 100 Reference: Jenniffer MF,Neal NC, Mary FERGUSON, et al. Evaluation,treatment, and prevention of vitamin D deficiency; an Endocrine Society clinical practice guideline. JCEM. 2010; 96(7):1911-30. Performed By: #### C BC, LIPASE, BMP, HEPATIC #### [facility] [address] [place] [id number] [place] US aortaon 06-14-2021 aorta [facility] [place] [address] Ultrasound Report Signed Patient: Dianelys Womack MR#: [id number] 0 : 1950 Acct:[id number] Age/Sex: 70 / F ADM Date: 06/14/21 Loc: [facility] Room: Type: [facility] Attending Dr: Nick Acosta MD Ordering [...] Nick Acosta M.D.06/14/2021 10:56 AM Dictation Location: [place] [address] Tech: Hellen Haro Transcribed By: AMINA 06/14/21 1056 Dictated By: Nick Acosta MD 06/14/21 1055 Signed By: 06/14/21 1056 [facility] Tobacco Screening.on 022 Adult depression screening assessment No [facility] 250 DO Work Phone: Fall risk assessment b) One or more falls in the last year [facility] 250 DO Work Phone: Tobacco use status [facility] b) No M [facility] 250 DO Work Phone: Vital Signs Date Time Vital Sign Value Performing Clinician Facility 01-20-2023 10:47-0500 Body height 160 cm Daniel Ma MD Work Phone: [facility] 01-20-2023 10:47-0500 Body mass index (BMI) [Ratio] 29.76 kg/m2 Daniel Ma MD Work Phone: [facility] 01-20-2023 10:47-0500 Body weight 76.2 kg Daniel Ma MD Work Phone: [facility] 01-20-2023 10:47-0500 Diastolic blood pressure 79 mm[Hg] Daniel Ma MD Work Phone: [facility] 01-20-2023 10:47-0500 Heart rate 83 /min Daniel Ma MD Work Phone: [facility] 01-20-2023 10:47-0500 Systolic blood pressure 119 mm[Hg] Daniel Ma MD Work Phone: [facility] 11-21-2022 15:31-0400 Body height 160 cm Elinor Raman MD Work Phone: [facility] 11-21-2022 15:31-0400 Body mass index (BMI) [Ratio] 29.58 kg/m2 Elinor Raman MD Work Phone: [facility] 11-21-2022 15:31-0400 Body weight 75.75 kg Elinor Raman MD Work Phone: [facility] 11-21-2022 15:31-0400 Diastolic blood pressure 86 mm[Hg] Elinor Raman MD Work Phone: [facility] 11-21-2022 15:31-0400 Heart rate 82 /min Elinor Raman MD Work Phone: [facility] 11-21-2022 15:31-0400 Systolic blood pressure 112 mm[Hg] Elinor Raman MD Work Phone: [facility] 10-25-2022 11:30-0400 Heart rate 61 /min Kenton Kapadia MD Work Phone: [facility] 10-25-2022 11:30-0400 SaO2% (BldA) [Mass fraction] 97 % Kenton Kapadia MD Work Phone: [facility] 10-25-2022 11:29-0400 Diastolic blood pressure 82 mm[Hg] Kenton Kapadia MD Work Phone: [facility] 10-25-2022 11:29-0400 Systolic blood pressure 131 mm[Hg] Kenton Kapadia MD Work Phone: [facility] 10-25-2022 11:15-0400 Body temperature 98.1 [degF] Kenton Kapadia MD Work Phone: [facility] 10-25-2022 11:15-0400 Respiratory rate 18 /min Kenton Kapadia MD Work Phone: [facility] 10-25-2022 09:51-0400 Body height 160 cm Kenton Kapadia MD Work Phone: [facility] 10-25-2022 09:51-0400 Body weight 68.04 kg Kenton Kapadia MD Work Phone: [facility] 09-20-2022 12:51-0400 Body height 160.02 cm Monika Lehman Work Phone: [address] Work Phone: 09-20-2022 12:51-0400 Body mass index (BMI) [Ratio] 29.23 kg/m2 Monika Lehman Work Phone: [address] Work Phone: 09-20-2022 12:51-0400 Body surface area Derived from formula 1.78 m2 Monika Lehman Work Phone: [address] Work Phone: 09-20-2022 12:51-0400 Body temperature 97.2 [degF] Monika Lehman Work Phone: [address] Work Phone: 09-20-2022 12:51-0400 Body weight 74.84 kg Rugen M Fallon Work Phone: [address] Work Phone: 09-20-2022 12:51-0400 Diastolic blood pressure 100 mm[Hg] Rugen M [place] Work Phone: [address] Work Phone: 09-20-2022 12:51-0400 Heart rate 90 /min Rugen M Fallon Work Phone: [address] Work Phone: 09-20-2022 12:51-0400 Systolic blood pressure 156 mm[Hg] Rugen M [place] Work Phone: [address] Work Phone: 05-04-2022 11:56-0400 Body height 160.02 cm Rugen M Fallon Work Phone: [facility] 250 DO Work Phone: 05-04-2022 11:56-0400 Body mass index (BMI) [Ratio] 26.93 kg/m2 Rugen M Fallon Work Phone: [facility] 250 DO Work Phone: 05-04-2022 11:56-0400 Body surface area Derived from formula 1.72 m2 Rugen M [place] Work Phone: [facility] 250 DO Work Phone: 05-04-2022 11:56-0400 Body weight 68.95 kg Rugen M [place] Work Phone: [facility] 250 DO Work Phone: 05-04-2022 11:56-0400 Diastolic blood pressure 70 mm[Hg] Rugen M Fallon Work Phone: [facility] 250 DO Work Phone: 05-04-2022 11:56-0400 Heart rate 60 /min Rugen M Fallon Work Phone: [facility] 250 DO Work Phone: 05-04-2022 11:56-0400 Systolic blood pressure 130 mm[Hg] Rugen M Fallon Work Phone: [facility] 250 DO Work Phone: 03-22-2022 15:35-0500 Body height 160.02 cm Rugen M [place] Work Phone: [facility] 3 DO Work Phone: 03-22-2022 15:35-0500 Body mass index (BMI) [Ratio] 27.81 kg/m2 Rugen M Fallon Work Phone: [facility] 3 DO Work Phone: 03-22-2022 15:35-0500 Body surface area Derived from formula 1.74 m2 Rugen M Fallon Work Phone: [facility] 3 DO Work Phone: 03-22-2022 15:35-0500 Body temperature 97.1 [degF] Rugen M [place] Work Phone: [facility] 3 DO Work Phone: 03-22-2022 15:35-0500 Body weight 71.22 kg Rugen M Fallon Work Phone: [facility] 3 DO Work Phone: 03-22-2022 15:35-0500 Diastolic blood pressure 82 mm[Hg] Rugen M [place] Work Phone: [facility] 3 DO Work Phone: 03-22-2022 15:35-0500 Heart rate 60 /min Monika Lehman Work Phone: [facility] 3 DO Work Phone: 03-22-2022 15:35-0500 Systolic blood pressure 130 mm[Hg] Monika Lehman Work Phone: [facility] 3 DO Work Phone: 02-24-2022 09:51-0500 Body height 160 cm Pacc 2 Work Phone: [facility] 02-24-2022 09:51-0500 Body temperature 97.2 [degF] Pacc 2 Work Phone: [facility] 02-24-2022 09:51-0500 Body weight 71.22 kg Pacc 2 Work Phone: [facility] 02-24-2022 09:51-0500 Diastolic blood pressure 87 mm[Hg] Pacc 2 Work Phone: [facility] 02-24-2022 09:51-0500 Heart rate 63 /min Pacc 2 Work Phone: [facility] 02-24-2022 09:51-0500 SaO2% (BldA) [Mass fraction] 99 % Pacc 2 Work Phone: [facility] 02-24-2022 09:51-0500 Systolic blood pressure 153 mm[Hg] Pacc 2 Work Phone: [facility] 01-12-2022 10:05-0500 Body height 157.5 cm BROOKE Vera MD Work Phone: [facility] 01-12-2022 10:05-0500 Body temperature 97.39 [degF] BROOKE Vera MD Work Phone: [facility] 01-12-2022 10:05-0500 Body weight 71.89 kg BROOKE Vera MD Work Phone: [facility] 01-12-2022 10:05-0500 Diastolic blood pressure 107 mm[Hg] BROOKE Vera MD Work Phone: [facility] 01-12-2022 10:05-0500 Heart rate 107 /min BROOKE Vera MD Work Phone: [facility] 01-12-2022 10:05-0500 SaO2% (BldA) [Mass fraction] 97 % BROOKE Vera MD Work Phone: [facility] 01-12-2022 10:05-0500 Systolic blood pressure 152 mm[Hg] BROOKE Vera MD Work Phone: [facility] 12-06-2021 12:20-0400 Diastolic blood pressure 89 mm[Hg] Kenton Kapadia MD Work Phone: [facility] 12-06-2021 12:20-0400 Heart rate 69 /min Kenton Kapadia MD Work Phone: [facility] 12-06-2021 12:20-0400 Respiratory rate 16 /min Kenton Kapadia MD Work Phone: [facility] 12-06-2021 12:20-0400 SaO2% (BldA) [Mass fraction] 98 % Kenton Kapadia MD Work Phone: [facility] 12-06-2021 12:20-0400 Systolic blood pressure 153 mm[Hg] Kneton Kapadia MD Work Phone: [facility] 12-06-2021 12:01-0400 Body temperature 96.8 [degF] Kenton Kapadia MD Work Phone: [facility] 12-06-2021 09:04-0400 Body height 160 cm Kenton Kapadia MD Work Phone: [facility] 12-06-2021 09:04-0400 Body weight 77.11 kg Kenton Kapadia MD Work Phone: [facility] 11-17-2021 14:09-0400 Diastolic blood pressure 92 mm[Hg] MD Moinka Lehman Work Phone: [facility] 11-17-2021 14:09-0400 Heart rate 92 /min MD Monika Lehman Work Phone: [facility] 11-17-2021 14:09-0400 Respiratory rate 18 /min MD Monika Lehman Work Phone: [facility] 11-17-2021 14:09-0400 SaO2% (BldA) [Mass fraction] 95 % MD Monika Lehman Work Phone: [facility] 11-17-2021 14:09-0400 Systolic blood pressure 168 mm[Hg] MD Monika Lehman Work Phone: [facility] 11-17-2021 10:47-0400 Body height 160.02 cm MD Monika Lehman Work Phone: [facility] 11-17-2021 10:47-0400 Body temperature 98.3 [degF] MD Monika Lehman Work Phone: [facility] 11-17-2021 10:47-0400 Body weight 74.84 kg MD Monika Lehman Work Phone: [facility] 06-14-2021 11:30-0400 Body height 160.02 cm Nick Acosta Other [employer] Other 06-14-2021 11:30-0400 Body mass index (BMI) [Ratio] 31.53 kg/m2 Nick Acosta Other [employer] Other 06-14-2021 11:30-0400 Body temperature 96.4 [degF] Nick Acosta Other [employer] Other 06-14-2021 11:30-0400 Body weight 80.74 kg Nick Acosta Other [employer] Other 06-14-2021 11:30-0400 Diastolic blood pressure 80 mm[Hg] Nick Acosta Other [employer] Other 06-14-2021 11:30-0400 SaO2% (BldA) [Mass fraction] 96 % Nick Acosta Other [employer] Other 06-14-2021 11:30-0400 Systolic blood pressure 140 mm[Hg] Nick Sampsonwooyd Other [employer] Other 05-03-2021 11:26-0400 Diastolic blood pressure 82 mm[Hg] Monika [place] Work Phone: [employer] 250 DO Work Phone: 05-03-2021 11:26-0400 Systolic blood pressure 128 mm[Hg] Monika Washington [place] Work Phone: [employer] 250 DO Work Phone: 05-03-2021 11:21-0400 Body height 160.02 cm Monika Washington [place] Work Phone: [employer] 250 DO Work Phone: 05-03-2021 11:21-0400 Body mass index (BMI) [Ratio] 32.77 kg/m2 Rugen Padmini [place] Work Phone: [employer] 250 DO Work Phone: 05-03-2021 11:21-0400 Body surface area Derived from formula 1.87 m2 Rugen M Fallon Work Phone: [employer] 250 DO Work Phone: 05-03-2021 11:21-0400 Body weight 83.92 kg Rugen M [place] Work Phone: [facility] 250 DO Work Phone: 05-03-2021 11:21-0400 Diastolic blood pressure 93 mm[Hg] Rugen M Fallon Work Phone: [facility] 250 DO Work Phone: 05-03-2021 11:21-0400 Heart rate 63 /min Rugen M Fallon Work Phone: [facility] 250 DO Work Phone: 05-03-2021 11:21-0400 Systolic blood pressure 156 mm[Hg] Rugen M Fallon Work Phone: [facility] 250 DO Work Phone: 12-15-2020 12:15-0400 Body height 160.02 cm Nick Acosta Other [employer] Other 12-15-2020 12:15-0400 Body mass index (BMI) [Ratio] 31.53 kg/m2 Nick Acosta Other [employer] Other 12-15-2020 12:15-0400 Body temperature 97.2 [degF] Nick Acosta Other [employer] Other 12-15-2020 12:15-0400 Body weight 80.74 kg Nick Acosta Other [employer] Other 12-15-2020 12:15-0400 Diastolic blood pressure 90 mm[Hg] Nick Acosta Other [employer] Other 12-15-2020 12:15-0400 SaO2% (BldA) [Mass fraction] 97 % Nick Acosta Other [employer] Other 12-15-2020 12:15-0400 Systolic blood pressure 150 mm[Hg] Nick Acosta Other [employer] Other Encounters Encounter Date Encounter Type Care Provider Facility Start: 04-24-2023 End: 04-24-2023 ambulatory RUGEN M FALLON Not Available Start: 04-11-2023 End: 04-12-2023 ambulatory ALEAH B STAN Not Available Start: 03-24-2023 End: 03-24-2023 ambulatory Aleah B Stan PT Work Phone: [facility] Comment on above: Cervical paraspinal muscle spasm (Primary Dx); Polyneuropathy; Central vestibular vertigo; Unsteadiness on feet Start: 03-24-2023 End: 03-24-2023 Patient encounter procedure Aman Quiroz MD Work Phone: [facility] Comment on above: Numbness (Primary Dx ) Start: 02-24-2023 End: 02-24-2023 ambulatory ALEAH B STAN Not Available Start: 02-20-2023 End: 02-20-2023 ambulatory ALEAH B STAN Not Available Start: 02-17-2023 End: 02-17-2023 ambulatory ALEAH B STAN Not Available Start: 01-30-2023 End: 01-30-2023 ambulatory ALEAH B STAN Not Available Start: 01-23-2023 End: 01-23-2023 ambulatory MONIKA M FALLON Not Available Start: 01-20-2023 End: 01-20-2023 ambulatory [facility] Ambulatory Start: 01-20-2023 End: 01-20-2023 Office outpatient visit 15 minutes Daniel Ma MD Work Phone: [facility] Comment on above: Essential hypertensi on (Primary Dx) Start: 01-10-2023 End: 01-10-2023 ambulatory AMAN QUIROZ Not Available Start: 12-26-2022 End: 12-26-2022 ambulatory MONIKA LEHMAN Not Available Start: 11-21-2022 End: 11-21-2022 ambulatory [facility] Ambulatory Start: 11-21-2022 End: 11-21-2022 Office outpatient visit 25 minutes Elinor Raman MD Work Phone: [facility] Comment on above: Former smoker (Prima ry Dx); Essential hypertension; 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); PVC (premature ventricular contraction); Other ill-defined heart diseases Start: 10-25-2022 End: 10-25-2022 ambulatory ROSE NIKHIL Facility:[facility] Start: 10-25-2022 End: 10-25-2022 Subsequent hospital visit by physician Kenton Kapadia MD Work Phone: Gastroenterology Comment on above: Abdominal pain, unsp ecified abdominal location [R10.9] Start: 10-18-2022 Telephone encounter Swathi Verduzco RNchild support investigator Comment on above: Appointment Start: 09-20-2022 Office outpatient vi sit 25 minutes Monika Lehman Work Phone: [address] [place] Work Phone: Start: 09-20-2022 ambulatory Daniel Ma Facility: Start: 05-12-2022 ambulatory Ms. Seema Saldaña Facility: Start: 05-12-2022 Patient encounter procedure Monika Lehman Work Phone: [facility] 250 DO Work Phone: Start: 05-04-2022 ambulatory Ms. Seema Saldaña Facility: Start: 04-21-2022 Telephone encounter Keiko rizzo RN Gastroenterology Comment on above: Orders Start: 04-20-2022 Telephone encounter Debbi ballard APRN.CROSSING WATCHMAN Work Phone: Gastroenterology Comment on above: Erroneous encounter- disregard Start: 04-20-2022 End: 04-20-2022 Follow-up encounter Melody Rosado APRN.CROSSING WATCHMAN Work Phone: Colorectal Surgery Comment on above: Follow-up exam (Prim chin Dx) Start: 04-20-2022 End: 04-20-2022 Telemedicine consultation with patient Melody Rosado APRN.CROSSING WATCHMAN Work Phone: [facility] Start: 04-20-2022 End: 04-21-2022 ambulatory MELODY ROSADO Facility:[facility] Start: 04-19-2022 End: 04-19-2022 ambulatory Debbi Hammond APRN.CROSSING WATCHMAN Work Phone: Gastroenterology Comment on above: Abdominal pain, unsp ecified abdominal location (Primary Dx); Adenomatous rectal polyp; Adverse effect of treatment, initial encounter Start: 04-19-2022 End: 04-19-2022 Telemedicine consultation with patient Debbi Hammond APRN.CROSSING WATCHMAN Work Phone: [facility] Start: 04-11-2022 End: 04-11-2022 ambulatory MONIKA LEHMAN Facility:[facility] Start: 04-10-2022 Orders Only Taz thapa MD Work Phone: Gastroenterology Comment on above: Adenomatous rectal p olyp (Primary Dx) Start: 03-28-2022 Telephone encounter I Fei merritt MD Work Phone: Colorectal Surgery Comment on above: Supervisor Finishing Room - O ther Start: 03-23-2022 End: 03-24-[address] MONIKA LEHMAN Facility: Start: 03-22-2022 Office outpatient vi sit 15 minutes Monika Lehman Work Phone: [facility] 3 DO Work Phone: Start: 03-22-2022 ambulatory Daniel Ma Facility: Start: 03-10-2022 Telephone encounter I Fei merritt MD Work Phone: Colorectal Surgery Comment on above: Supervisor Finishing Room - O ther Start: 03-08-2022 Orders Only I Fei Vera MD Work Phone: Colorectal Surgery Comment on above: 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, unspecified part (Primary Dx) Appointment Start: 03-03-2022 End: 03-03-2022 ambulatory MONIKA LEHMAN Facility:[facility] Start: 03-01-2022 Telephone encounter I Fei merritt MD Work Phone: Colorectal Surgery Comment on above: Patient Update Supervisor Finishing Room - O ther Start: 02-28-2022 Telephone encounter I Fei merritt MD Work Phone: Colorectal Surgery Comment on above: Supervisor Finishing Room - O ther Start: 02-26-2022 ambulatory Faye Richey RN NURSE SHANK PINNER Comment on above: Medication Question Start: 02-24-2022 [...] intubation; Chronic renal impairment, stage 2 (mild) Supervisor Finishing Room - O ther Returning Patient's Call No Show Start: 02-24-2022 Encounter for other preprocedural examination MONIKA LEHMAN [facility] Start: 02-24-2022 End: 02-24-2022 Preprocedural examination done Pacc Main 2 Work Phone: Pre Anesthesia Start: 02-23-2022 End: 02-23-2022 ambulatory MONIKA LEHMAN Facility:[facility] Start: 01-12-2022 End: 01-12-2022 ambulatory Gareth VERA Facility:[facility] Start: 01-12-2022 End: 01-12-2022 Patient encounter procedure I Fei Vera MD Work Phone: Colorectal Surgery Comment on above: Benign neoplasm of r ectum (Primary Dx) Start: 01-04-2022 Orders Only Gareth Vera MD Work Phone: Colorectal Surgery Comment on above: 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 (Primary Dx) Start: 12-24-2021 Telephone encounter Taz Tejeda MD Work Phone: Gastroenterology Comment on above: Results Start: 12-06-2021 End: 12-06-2021 ambulatory TAZ TEJEDA Facility:[facility] Start: 12-06-2021 End: 12-06-2021 Subsequent hospital visit by physician Kenton Kapadia MD Work Phone: Gastroenterology Comment on above: Diarrhea, unspecifie d type [R19.7] Start: 11-29-2021 Telephone encounter Jessica Green RNchild support investigator Comment on above: Appointment Confirma tion (Pre-procedure instructions) Start: 11-17-2021 End: 11-17-2021 Emergency department patient visit Monika Lehman Facility:[facility] Start: 11-17-2021 End: 11-17-2021 Emergency department patient visit MD Monika Lehman Work Phone: [facility] Start: 11-03-2021 Telephone encounter Taz Tejeda MD Work Phone: Gastroenterology Comment on above: Orders (Egd/Colonosc opy under MAC) Start: 11-01-2021 End: 11-01-2021 ambulatory MONIKA LEHMAN Facility:[facility] Start: 10-29-2021 End: 10-29-2021 ambulatory TAZ TEJEDA Facility:[facility] Start: 10-28-2021 End: 10-28-2021 ambulatory Taz Tejeda MD Work Phone: Gastroenterology Comment on above: Diarrhea, unspecifie d type (Primary Dx); Abdominal pain, unspecified abdominal location; Nausea Start: 10-28-2021 End: 10-28-2021 Telemedicine consultation with patient Taz Tejeda MD Work Phone: [facility] Start: 10-18-2021 End: 10-18-[address] MONIKA LEHMAN Facility: Start: 10-07-2021 Rx Renewal Monika Lehman Work Phone: [employer] 250 DO Work Phone: Start: 09-13-2021 End: 09-14-[address] MONIKA LEHMAN Facility:[facility] Start: 07-15-2021 Chart Update Monika Lehman Work Phone: [facility] 3 DO Work Phone: Start: 07-15-2021 End: 07-15-2021 ambulatory Monika Lehman Facility:[facility] Start: 07-15-2021 End: 07-15-2021 Patient encounter procedure MD Monika Lehman Work Phone: [facility] Main [place] Start: 07-08-2021 AUDIT Monika Lehman Work Phone: [facility] 3 DO Work Phone: Start: 07-07-2021 End: 07-08-[address] MONIKA LEHMAN Facility:[facility] Start: 06-14-2021 Office outpatient vi sit 25 minutes Nick Acosta [facility] Vascular Surgery Start: 06-14-2021 End: 06-14-2021 ambulatory Nick Acosta [facility] [employer] Other Start: 06-14-2021 End: 06-14-2021 Patient encounter procedure MD Monika Lehman Work Phone: [facility] Start: 05-03-2021 Office outpatient vi sit 25 minutes Monika Lehman Work Phone: [facility] 250 DO Work Phone: Start: 12-15-2020 End: 12-15-2020 ambulatory Nick Acosta Other [facility] [employer] Other Start: 12-15-2020 Office outpatient vi sit 25 minutes Nick Acosta [facility] Vascular Surgery Echocardiogram normal Monika [place] Work Phone: [facility] 250 DO Work Phone: Procedures Date Procedure Procedure Detail Performing Clinician Start: 10-25-2022 Colonoscopy flx dx w/collj spec when pfrmd Taz Tejeda MD Work Phone: Start: 10-25-2022 Colonoscopy Kenton Kapadia MD Work Phone: Start: 03-03-2022 Colonoscopy flx dx w/collj spec when pfrmd [facility] Provider Start: 03-03-2022 Colonoscopy Nurse Cors Work Phone: Start: 02-24-2022 Antibody screen MONIKA FALLON Comment on above: Order Comment: Specimen Type: BLOOD SPEC IMEN Ordering Facility: [facility] Address: [address] [place] [address] Performed By: #### T [id number] #### [facility] CLIA [id number] [address] [place] [address] OF [place] Start: 12-06-2021 Esophagogastroduodenoscopy transoral diagnostic Taz Tejeda MD Work Phone: Start: 12-06-2021 Colonoscopy flx dx w/collj spec when pfrmd Taz Tejeda MD Work Phone: Start: 12-06-2021 Colonoscopy Kenton Kapadia MD Work Phone: Start: 11-17-2021 CT of abdomen and pelvis without contrast MD Monika Lehman Work Phone: Start: 06-14-2021 US scan of aorta MD Monika Lehman Work Phone: Start: 08-14-2018 Echocardiography Appendectomy Rugen M [place] Work Phone: Cholecystectomy Ceeen M Fallon Work Phone: Operation on ovary Rugen M A lda Work Phone: Operation on uterus Ceeen M Fallon Work Phone: Tonsillectomy and adenoidectomy Ceeen M Fallon Work Phone: Total colonoscopy Monika Bush Work Phone: Comment on above: Dr Olsen [facility]; Plan of Treatment Date Care Activity Detail Author Start: 10-25-2032 Screening for malignant neoplasm of colon [facility] Start: 02-24-2025 DIABETES SCREEN DIABETES SCREEN [facility] Start: 02-24-2025 Diabetes Screening Diabetes Screening [facility] Start: 10-29-2024 DIABETES SCREEN DIABETES SCREEN [facility] Start: 12-15-2023 Influenza vaccination Influenza Vaccine (#1) [facility] Comment on above: Postponed from 10/14/2022 (Other Patient Reasons) Start: 12-15-2023 Pneumococcal Vaccine: 65+ Years (1 - PCV) Pneumococcal Vaccine: 65+ Years (1 - PCV) [facility] Comment on above: Postponed from 12/09/1956 (Other Patient Reasons) Start: 12-15-2023 Screening for malignant neoplasm of breast Mammogram [facility] Comment on above: Postponed from 1989 (Other Patient Reasons) Start: 10-26-2023 Colonoscopy Colonoscopy [facility] Start: 10-26-2023 Colorectal Cancer Screening Colorectal Cancer Screening [facility] Start: 06-26-2023 End: 06-26-2023 Patient encounter procedure 06/26/2023 11:00 AM EDT Office Visit [facility] [address] [facility] [address] [place] [id number] Monika Lehman MD [address] [facility] [address] [place] [address] [facility] Start: 06-15-2023 Medicare Annual Wellness (AWV) Medicare Annual Wellness (AWV) [facility] Start: 05-08-2023 FUV, Provider: Elionr Raman, Status: Pen, Time: 1:00 PM FUV, Provider: Elinor Raman, Status: Pen, Time: 1:00 PM -[facility] 250 DO Work Phone: Start: 05-08-2023 End: 05-08-2023 Patient encounter procedure 05/08/2023 1:00 PM EDT Office Visit [place] [address] [facility] [address] [place] [address] Elinor Raman MD [address] [facility] [address] [place], [place] [id number] [facility] Start: 04-24-2023 End: 04-24-2023 Patient encounter procedure 04/24/2023 1:00 PM EDT Office Visit [facility] [address] [place] [phone] Monika Lehman MD [address] [place] [address] [facility] Start: 04-11-2023 End: 04-11-2023 Patient encounter procedure 04/11/2023 4:45 PM EST Office Visit [facility] [address] [place] [address] Aman Quiroz MD [address] [facility] [address] [place] [address] [facility] Start: 03-03-2023 Colonoscopy COLONOSCOPY [facility] Start: 03-03-2023 COLORECTAL CANCER SCREENING COLORECTAL CANCER SCREENING [facility] Start: 02-24-2023 HEMOGLOBIN/HEMATOCRIT HEMOGLOBIN/HEMATOCRIT [facility] Start: 02-24-2023 SERUM CREATININE SERUM CREATININE [facility] Start: 01-20-2023 End: 01-21-2024 Basic metabolic 2000 panel - Serum or Plasma Basic Metabolic Panel Lab Routine Essential hypertension Expected: 01/20/2023 (Approximate), Expires: 01/21/2024 [facility] Service Area Work Phone: Comment on above: Expected: 01/20/2023 (Approximate), Expi res: 01/21/2024 Start: 01-20-2023 FUV, Provider: Daniel Ma, Status: Pen, Time: 11:20 AM FUV, Provider: Daniel Ma, Status: Pen, Time: 11:[address] Work Phone: Start: 01-20-2023 End: 01-20-2023 Patient encounter procedure 01/20/2023 11:20 AM EST Office Visit [facility] [address] [facility] [address] [place] [phone] [place] [address] [facility] [address] [place], [place] [id number] [facility] Start: 12-06-2022 Colonoscopy COLONOSCOPY [facility] Start: 12-06-2022 COLORECTAL CANCER SCREENING COLORECTAL CANCER SCREENING [facility] Start: 11-22-2022 End: 11-23-2023 Comprehensive metabolic 2000 panel - Serum or Plasma Comprehensive metabolic panel Lab Routine Essential hypertension Expected: 11/22/2022 (Approximate), Expires: 11/23/[address] [facility] Work Phone: Comment on above: Expected: 11/22/2022 (Approximate), Expi res: 11/23/2023 Start: 11-22-2022 End: 11-23-2023 Lipid 1996 panel - Serum or Plasma Lipid panel Lab Routine Essential hypertension Expected: 11/22/2022 (Approximate), Expires: 11/23/[address] [facility] Work Phone: Comment on above: Expected: 11/22/2022 (Approximate), Expi res: 11/23/2023 Start: 11-21-2022 End: 11-21-2024 NM Heart Perfusion W stress and W radionuclide IV Nuclear Stress Test Cardiac Nuclear Medicine Routine Essential hypertension 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) Other ill-defined heart diseases Expected: 11/21/2022 (Approximate), Expires: 11/21/[address] 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) PVC (premature ventricular contraction) Expected: 11/21/2022 (Approximate), Expires: 11/21/2024 [facility] Service Area Work Phone: Comment on above: Expected: 11/21/2022 (Approximate), Expi res: 11/21/2024 Start: 10-29-2022 HEMOGLOBIN/HEMATOCRIT HEMOGLOBIN/HEMATOCRIT [facility] Start: 10-29-2022 SERUM CREATININE SERUM CREATININE [facility] Start: 10-14-2022 Influenza vaccination [facility] Start: 09-20-2022 FUV, Provider: Daniel Ma, Status: Pen, Time: 12:50 PM FUV, Provider: Daniel Ma, Status: Pen, Time: 12:50 PM [facility] 3 DO Work Phone: Start: 05-04-2022 End: 11-04-2022 COLONOSCOPY DIAGNOSTIC COLONOSCOPY DIAGNOSTIC Endoscopy Routine Diarrhea, unspecified type Expected: 05/04/2022, Expires: 11/04/2022 Work Phone: Comment on above: Expected: 05/04/2022, Expires: 3 Start: 05-04-2022 End: 11-04-2022 EGD DIAGNOSTIC EGD DIAGNOSTIC Endoscopy Routine Abdominal pain, unspecified abdominal location Expected: 05/04/2022, Expires: 11/04/2022 Work Phone: Comment on above: Expected: 05/04/2022, Expires: 3 Start: 04-25-2022 FUV, Provider: Seema Spencer, Status: Pen, Time: 10:30 AM FUV, Provider: Seema Spencer, Status: Pen, [facility]: [facility] Work Phone: Start: 04-19-2022 FUV, Provider: Deshaun Paniagua, Status: Pen, Time: 10:30 AM FUV, Provider: Deshaun Paniagua, Status: Pen, Time: 10:30 AM [facility] Work Phone: Start: 04-03-2022 DIABETES SCREEN DIABETES SCREEN [facility] Start: 02-13-2022 ADVANCE DIRECTIVE DISCUSSION ADVANCE DIRECTIVE DISCUSSION [facility] Start: 01-18-2022 FUV, Provider: Daniel Ma, Status: Pen, Time: 1:00 PM FUV, Provider: Daniel Ma, Status: Román, Time: 1:00 PM -[facility] 250 DO Work Phone: Start: 01-04-2022 End: 03-06-2022 Carcinoembryonic Ag [Mass/volume] in Serum or Plasma CEA BLD Lab Routine Neoplasm of uncertain behavior of colon Expected: 01/04/2022, Expires: 03/06/2022 Work Phone: Comment on above: Expected: 01/04/2022, Expires: 3 Start: 10-28-2021 End: 12-28-2021 CBC panel - Blood by Automated count CBC Lab Routine Abdominal pain, unspecified abdominal location Diarrhea, unspecified type Expected: 10/28/2021, Expires: 12/28/2021 Work Phone: Comment on above: Expected: 10/28/2021, Expires: 2 Start: 10-28-2021 End: 12-28-2021 CELIAC SCREEN WITH REFLEX CELIAC SCREEN WITH REFLEX Lab Routine Diarrhea, unspecified type Expected: 10/28/2021, Expires: 12/28/2021 Work Phone: Comment on above: Expected: 10/28/2021, Expires: 2 Start: 10-28-2021 End: 12-28-2021 Comprehensive metabolic 2000 panel - Serum or Plasma COMP METABOLIC PANEL Lab Routine Abdominal pain, unspecified abdominal location Diarrhea, unspecified type Expected: 10/28/2021, Expires: 12/28/2021 Work Phone: Comment on above: Expected: 10/28/2021, Expires: 2 Start: 10-28-2021 End: 12-28-2021 Thyrotropin [Units/volume] in Serum or Plasma TSH BLD Lab Routine Abdominal pain, unspecified abdominal location Diarrhea, unspecified type Expected: 10/28/2021, Expires: 12/28/2021 Work Phone: Comment on above: Expected: 10/28/2021, Expires: 2 Start: 10-14-2021 Influenza vaccination INFLUENZA (#1) [facility] Start: 07-20-2021 FUV, Provider: Daniel Ma, Status: Pen, Time: 1:40 PM FUV, Provider: Daniel Ma, Status: Pen, Time: 1:40 PM -[place] [id number] DO Work Phone: Start: 05-15-2021 COVID-19 VACCINE (4 - Booster for Pfizer series) COVID-19 VACCINE (4 - Booster for Pfizer series) [facility] Start: 03-11-2021 COVID-19 VACCINE (4 - Booster for Pfizer series) COVID-19 VACCINE (4 - Booster for Pfizer series) [facility] Start: 03-11-2021 COVID-19 VACCINE (4 - Pfizer series) COVID-19 VACCINE (4 - Pfizer series) [facility] Start: 02-13-2021 ADVANCE DIRECTIVE DISCUSSION ADVANCE DIRECTIVE DISCUSSION [facility] Start: 02-13-2021 DEPRESSION ASSESSMENT DEPRESSION ASSESSMENT [facility] Start: 2014 BONE DENSITY BONE DENSITY [facility] Start: 2014 Bone Density Screening Bone Density Screening [facility] Start: 2014 Pneumococcal Vaccine: 65+ (1 - PCV) Pneumococcal Vaccine: 65+ (1 - PCV) [facility] Start: 2014 PNEUMOCOCCAL: 65+ (1 - PCV) PNEUMOCOCCAL: 65+ (1 - PCV) [facility] Start: 2009 Hepatitis B Vaccines (1 of 3 - Risk 3-dose series) Hepatitis B Vaccines (1 of 3 - Risk 3-dose series) [facility] Start: 12-09-1999 SHINGRIX VACCINE (1 of 2) SHINGRIX VACCINE (1 of 2) [facility] Start: 12-09-1999 Zoster Vaccines (1 of 2) Zoster Vaccines (1 of 2) [facility] Start: 1994 COLOGUARD (FIT-DNA) COLOGUARD (FIT-DNA) [facility] Start: 1994 Colonoscopy COLONOSCOPY [facility] Start: 1994 COLORECTAL CANCER SCREENING COLORECTAL CANCER SCREENING [facility] Start: [address] COLONOGRAPHY [facility] Start: 1994 FECAL OCCULT BLOOD FECAL OCCULT BLOOD [facility] Start: 1994 Lipid 1996 panel - Serum or Plasma Lipid Screening [facility] Start: 1994 LIPID SCREEN LIPID SCREEN [facility] Start: 1994 SIGMOIDOSCOPY SIGMOIDOSCOPY [facility] Start: 1989 Mammography [facility] Start: 1989 Screening for malignant neoplasm of breast Mammogram [facility] Start: 12-09-1971 DTaP/Tdap/Td Vaccines (1 - Tdap) DTaP/Tdap/Td Vaccines (1 - Tdap) [facility] Start: 1968 Hepatitis A Vaccines (1 of 2 - Risk 2-dose series) Hepatitis A Vaccines (1 of 2 - Risk 2-dose series) [facility] Start: 1968 Urine microalbumin profile [facility] Start: 12-09-1967 ANNUAL PCP TEAM CHRONIC DISEASE VISIT ANNUAL PCP TEAM CHRONIC DISEASE VISIT [facility] Start: 12-09-1967 BP CONTROLLED (<130/80) BP CONTROLLED (<130/80) [facility] Start: 12-09-1967 HEPATITIS C SCREENING HEPATITIS C SCREENING [facility] Start: 12-09-1967 Hepatitis C screening Hepatitis C Screening [facility] Start: 1961 Adult depression screening assessment DEPRESSION SCREENING [facility] Start: 12-09-1955 Pneumococcal Vaccine: 65+ Years (1 - PCV) Pneumococcal Vaccine: 65+ Years (1 - PCV) [facility] Start: 1949 Lipid panel Lipid Panel [facility] Start: 1949 Screening for malignant neoplasm of colon [facility] Start: 1949 Screening for osteoporosis Bone Density Scan [facility] Start: 1949 Thyroid stimulating hormone measurement TSH Level [facility] Start: 1949 Yearly Adult Physical Yearly Adult Physical [facility] Calprotectin [Mass/m ass] in Stool CALPROTECTIN,FECAL Lab Routine Abdominal pain, unspecified abdominal location Diarrhea, unspecified type Ordered: 10/28/2021 Work Phone: Comment on above: Ordered: 10/28/2021 Calprotectin [Mass/m ass] in Stool CALPROTECTIN,FECAL Lab Routine Adenomatous rectal polyp Ordered: 04/19/2022 Work Phone: Comment on above: Ordered: 04/19/2022 Clostridioides diffi cile toxin genes [Presence] in Stool by VERONICA with probe detection C. DIFFICILE PCR Lab Routine Abdominal pain, unspecified abdominal location Diarrhea, unspecified type Ordered: 10/28/2021 Work Phone: Comment on above: Ordered: 10/28/2021 End: 10-28-2022 COLONOSCOPY DIAGNOSTIC COLONOSCOPY DIAGNOSTIC Endoscopy Routine Abdominal pain, unspecified abdominal location Diarrhea, unspecified type 1 Occurrences starting 10/28/2021 until 10/28/2022 Work Phone: Comment on above: 1 Occurrences starting 10/28/2021 until 10/28/2022 End: 04-10-2023 COLONOSCOPY DIAGNOSTIC COLONOSCOPY DIAGNOSTIC Endoscopy Routine Adenomatous rectal polyp 1 Occurrences starting 04/10/2022 until 04/10/2023 Work Phone: Comment on above: 1 Occurrences starting 04/10/2022 until 04/10/2023 End: 05-19-2023 Ct abdomen & pelvis w/contrast material CT ENTEROGRAPHY W IVCON Radiology Routine Adverse effect of treatment, initial encounter Abdominal pain, unspecified abdominal location 1 Occurrences starting 04/19/2022 until 05/19/2023 Work Phone: Comment on above: 1 Occurrences starting 04/19/2022 until 05/19/2023 End: 10-28-2022 EGD DIAGNOSTIC EGD DIAGNOSTIC Endoscopy Routine Abdominal pain, unspecified abdominal location Diarrhea, unspecified type 1 Occurrences starting 10/28/2021 until 10/28/2022 Work Phone: Comment on above: 1 Occurrences starting 10/28/2021 until 10/28/2022 Patient Education Hypokalemia Ab dominal Pain, Adult ED [facility] Work Phone: Patient referral [facility] Work Phone: SURGICAL PATHOLOGY Work Phone: Comment on above: Release Upon Ordering for 1 Occurrences starting 12/06/2021, 1 completed SURGICAL PATHOLOGY Work Phone: Comment on above: Release Upon Ordering for 1 Occurrences starting 10/25/2022, 1 completed [facility] Immunizations Immunization Date Immunization Notes Care Provider Fa margarita 03-23-2022 Fluzone High-Dose Quadrivalent 0.7 ML Intramuscular Suspension Prefilled Syringe Monika Hamiltona Work Phone: [place] [address] DO Work Phone: 03-23-2022 influenza virus vaccine, unspecified formulation Elinor Raman MD Work Phone: [facility] Work Phone: 01-14-2021 Pfizer-BioNTech COVID-19 Vacc 30 MCG/0.3ML Intramuscular Suspension Rugen M Fallon Work Phone: [facility] 250 DO Work Phone: 12-04-2020 influenza, injectabl e, quadrivalent, preservative free Rugen Padmini [place] Work Phone: [facility] 250 DO Work Phone: 12-04-2020 influenza virus vaccine, unspecified formulation Kenton Kapadia MD Work Phone: [facility] 04-15-2020 Pfizer-BioNTech COVID-19 Vacc 30 MCG/0.3ML Intramuscular Suspension Rugen M [place] Work Phone: [facility] 250 DO Work Phone: 03-24-2020 Pfizer-BioNTech COVID-19 Vacc 30 MCG/0.3ML Intramuscular Suspension Monika Hamiltona Work Phone: [facility] 250 DO Work Phone: 01-16-2020 Fluad Quadrivalent 0 .5 ML Intramuscular Prefilled Syringe Monika Lehman Work Phone: [facility] 250 DO Work Phone: 01-16-2020 influenza, injectabl e, quadrivalent, preservative free Aman Quiroz MD Work Phone: [facility] 11-14-2019 influenza virus vaccine, unspecified formulation Rugen M Fallon Work Phone: [facility] 250 DO Work Phone: 11-14-2019 influenza, seasonal, injectable Elinor Raman MD Work Phone: [facility] Work Phone: 12-21-2018 Influenza, injectabl e, Madin Keyes Canine Kidney, quadrivalent with preservative Aman Quiroz MD Work Phone: [facility] 12-21-2018 influenza, injectabl e, madin loc canine kidney, preservative free Rugen M Fallon Work Phone: [facility] 250 DO Work Phone: 11-13-2018 influenza virus vaccine, unspecified formulation Rugen M Fallon Work Phone: [facility] 250 DO Work Phone: Payers Date Payer Category Payer Self-pay [id number] 2016 Unknown 2014 Medicare [id number] 1959 Medicare [id number] 1959 Unknown [id number] 1949 Unknown [id number] 2.16.84 0.1.534367.3.579.2.593 1949 Unknown [id number] 2.16.84 0.1.212568.3.579.2.593 1949 Unknown [id number] 2.16.84 0.1.655559.3.579.2.593 1949 Unknown [id number] 2.16.84 0.1.526849.3.579.2.593 1949 Unknown [id number] 2.16. 840.1.189630.3.579.2.356 1949 Unknown [id number] 2.16. 840.1.821947.3.579.2.356 1949 Unknown [id number] 2.16. 840.1.289807.3.579.2.356 1949 Unknown [id number] 2.16. 840.1.200838.3.579.2.356 1949 Unknown [id number] 2.16.8 40.1.338417.3.579.2.1244 1949 Unknown [id number] 2.16.8 40.1.159857.3.579.2.1244 1949 Unknown [id number] 2.16.84 0.1.644042.3.579.2.1259 1949 Unknown [id number] 2.16.84 0.1.363498.3.579.2.1259 1949 Unknown [id number] 2.16.84 0.1.003897.3.579.2.1259 1949 Unknown [id number] 2.16.84 0.1.039584.3.579.2.1259 1949 Unknown [id number] 2.16.84 0.1.425915.3.579.2.1259 1949 Unknown [id number] 2.16.84 0.1.070203.3.579.2.1259 1949 Unknown [id number] 2.16.840 .1.097190.3.579.2.1259 1949 Unknown [id number] 2.16.840 .1.789760.3.579.2.1259 1949 Unknown [id number] 2.16.840 .1.410225.3.579.2.1259 1949 Unknown [id number] 2.16.840 .1.636081.3.579.2.1259 1949 Unknown [id number] 2.16.840. 1.434071.3.579.2.1259 Unknown [id number] 2.16.8 40.1.506499.3.579.2.531 Unknown [id number] 2.16.8 40.1.353246.3.579.2.531 Unknown [id number] 2.16.8 40.1.133011.3.579.2.531 Social History Date Type Detail Facility Start: 02-24-2022 End: 09-19-2022 Caffeine use Caffeine use [facility] [employer] Other Comment on above: 1/2 CAN OF POP DAILY 2-3 CUPS OF HOT CHOCOLATE DAILY; Start: 1950 Sex Assigned At Female F [facility] Start: 02-24-2022 End: 09-19-2022 Sex Assigned At [employer] [facility] unknown [facility] Start: 1950 Sex Assigned At Not on file [facility] Start: 10-18-2021 End: 01-20-2023 Exposure to SARS-CoV-2 (event) Not sure [facility] Start: 11-17-2021 [facility] (finding[facility] Start: 12-06-2021 End: 07-18-2022 Tobacco smoking status NHIS Ex-smoker [facility] End: 03-20-2012 History of tobacco use Current smoker [facility] End: 03-20-2012 History of tobacco use Cigarette Smoker [facility] Start: 12-06-2021 End: 07-18-2022 Tobacco use and exposure Smokeless tobacco non-user [facility] Start: 12-06-2021 End: 01-23-2023 Alcohol intake Lifetime non-drinker (finding) [facility] National Score (1-100), lower number is lower risk 73 [facility] Within the last year , have you been afraid of your partner or ex-partner? No [facility] Are you now , , , , never or living with a partner? [facility] How often to you hav e a drink containing alcohol? Never [facility] Do you feel stress - tense, restless, nervous, or anxious, or unable to sleep at night because your mind is troubled all the time - these days [OSQ] To some extent [facility] (I/We) worried wheth er (my/our) food would run out before (I/we) got money to buy more. Never true [facility] Clinical Notes 12-15-2020 to 03-24-2023 Aleah Pierce, PT - 03/24/2023 4:00 PM Abe Quiroz MD - 03/24/2023 2:00 PM ESTAssessment & Plan Note - Elinor Raman MD - 11/22/2022 10:09 AM EDTGcurtis Raman MD - 11/21/2022 3:15 PM EDT Note Date & Type Note Facility 03-24-2023 History of Present illness Narrative Physical Therapy Physical Therapy Evaluation Visit Patient Name: Dianelys Womack Today's Date: 03/24/2023 Encounter Diagnoses Name Primary? 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 Polyneuropathy likely associated form megadoses of steroids years ago to manage illness. Has had UE/LE neuropathy for years and has utilized PT over the last several years to assist with pain management and improvement of trunk and LE flexibility, strength, and balance with good results leading to today's consult. Precautions: Elevated Fall Risk; Moderate to severe peripheral neuropathy Subjective/Pain: Presents post EMG with Dr Quiroz. No definitive diagnosis from EMG Test. Reports episodes of spinning vertigo when bending over the last 3-4 days. Objective: PT Evaluation 01/30/23 Postural assessment demonstrates moderated forward head and rounded shoulder dysfunction with moderate increased thoracic kyphosis. AROM demonstrates cervical rotation 75 degrees, side-bending 25 degrees, and cervical extension reduced by 25-50%. The patient reports transient episodes of vertigo without spinning generally transient lasting up to 15 seconds resolving spontaneously. Cervical postural and scapular strength is rated at 4-/5. Upper limb neural mobility of the bilateral UE median and radial nerve distributes were moderately reduced. Positive PA testing over C5-C7 disc interspace with positive response to cervical distraction and noxious response to cervical compression. Noted moderate occipital tenderness with palpation of the suboccipital structures. Mobility screen of the upper, middle, lower cervical spine, and upper thoracic spine demonstrated OA feel and generalized moderate hypomobility. Upper cervical ligament testing of the alar and transverse limits was unremarkable. Patient denies presence of cardinal S/S with no perioral or facial numbness and tingling and negative vertebral artery screen; Cranial nerve screen was unremarkable; H and I eye examination was normal; BPPV screen was normal. Patient does report episodes of generalized disequilibrium, a feeling of fullness in head, difficulty with concentration, and chronic balance deficit exacerbated with dynamic gait activity consistent with cervicogenic disequilibrium exacerbated by chronic cervical OA and postural dysfunction. The patient scores high risk with Nolasco Balance Test scoring of 44/56. The patient's Neck Index scoring is 44 indicative of moderate impairment and is consistent with PT examination findings. LUMBAR: AROM Lumbar spine flexion 50 degrees, extension 10 degrees, and side-bending 15 degrees. Strength of legs 4-/5. Nolasco Balance 42/56 (high fall risk). Poor sensation and apparent moderate to severe polyneuropathy in legs that is being assessed with EMG per Dr Quiroz in the next week. Goals: To be met by 05/14/23 The patient to demonstrate 50% reduction in pain to at worst 4/10 intensity with good reduction in cervical and lumbar spasms in 2-3 weeks and no UE/LE referral pain in 4-8 weeks The patient to achieve 90/90 HS length testing of < 15 degrees from full knee extension as demonstration of improvement in trunk and LE flexibility with core and LE strength improvements to 4+/5 in 4-6 weeks Patient to score 46/56 or better for low fall risk on Nolasco balance test by conclusion of PT expected in 6-12 weeks The patient to score < 30% residual functional impairment with Neck and Back Indexes by conclusion of PT expected in 6-12 weeks The patient to demonstrate good compliance to ergonomic and postural recommendations and have prophylactic management plan in place including routine home management via flexibility and strength exercises to reduce risk of future exacerbations to be met by conclusion of PT expected in 6-12 weeks TREATMENT: Manual: Grade I/II cervical distraction and mobilization; cervical occipital release (15 Min) Therapeutic Exercise: Per Exercise Grid found in patient documents including cervical postural flexibility and stabilization program, balance and fall risk reduction program, Dillon Flexion based flexibility, core strength, ergonomic, and postural program to assist 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 Presents post EMG with Dr Quiroz. No definitive diagnosis from EMG Test. Reports episodes of spinning vertigo when bending over the last 3-4 days. Demonstrated positive posterior canal BPPV on right and Shantelle was performed. Retest negative. Patient advised to remain cautious with walking next 24-48 hours as general disequilibrium is standard after positional correction. Cervical and lumbar spine pain reduced to 1-2/10 intensity post session. PT PRN Plan: Recommend outpatient PT 1-3 times/week for up to 8-12 weeks per above PT POC pending patient progress and medical necessity standards (01/30/23-DBO) I hereby deem this POC medically necessary. Please sign below and fax back to the number below. Physician Signature: Date: documented in this encounter [facility] 03-24-2023 History of Present illness Narrative Images from the original note were not included. [facility] Patient: Dianelys Womack [address], [address] , Sex: 1950, Female [place] [id number] Height: 160 cm Ref Phys: Fallon Quiroz fax Electroneuromyogram ([facility]) Test Date: 2023-03-24 Patient Complaints: Worsening gait. low back pain, leg numbness, bilat leg pain, weakness Nerve Conduction Studies Anti Sensory Summary Table Site NR Peak (ms) Norm Peak (ms) P-T* Amp ( V) Norm P-T Amp Site1 Site2 Delta-0 (ms) Dist (cm) Tyrel (m/s) Norm Tyrel (m/s) Left Saphenous (Wainapel's) Anti Sensory (med mall) med leg NR <4.41 >5.0 med leg med mall 14.0 >38.2 Right Saphenous ([place]'s) Anti Sensory (med mall) med leg NR <4.41 >5.0 med leg med mall 14.0 >38.2 Left Superf Peron (Bryan's) Anti Sensory (Ant Lat Mall) Calf NR <4.61 >3.99 Calf Ant Lat Mall 14.0 >40.49 Right Superf Peron (Bryan's) Anti Sensory (Ant Lat Mall) Calf NR <4.61 >3.99 Calf Ant Lat Mall 14.0 >40.49 Left Sural Anti Sensory (Lat Mall) Calf NR <3.91 >5.99 Calf Lat Mall 14.0 >36.9 Right Sural Anti Sensory (Lat Mall) Calf NR <3.91 >5.99 Calf Lat Mall 14.0 >36.9 Motor Summary Table Site NR Onset (ms) Norm Onset (ms) O-P* Amp (mV) Norm O-P Amp Neg Dur (ms) Site1 Site2 Delta-0 (ms) Dist (cm) Tyrel (m/s) Norm Tyrel (m/s) Left Peroneal Motor (Ext Dig Brev) Ankle 4.8 <6.31 0.7 >1.99 10.78 Ankle Ext Dig Brev 4.8 10.0 21 B Fib 10.6 0.7 >1.99 5.47 B Fib Ankle 5.8 22.0 38 >38.9 Right Peroneal Motor (Ext Dig Brev) dispersed Ankle 4.8 <6.31 0.5 >1.99 3.91 Ankle Ext Dig Brev 4.8 10.0 21 B Fib 10.5 0.6 >1.99 5.16 B Fib Ankle 5.7 23.0 40 >38.9 Left Peroneal TA Motor (Tib Ant) Fib Head 3.8 1.2 5.63 Right Peroneal TA Motor (Tib Ant) Fib Head 3.1 0.5 12.50 Left Tibial/Medial Plantar Motor (Abd Pride Brev) max stim, dispersed, multilobar Ankle 6.3 <7.51 0.5 >3.99 9.38 Ankle Abd Pride Brev 6.3 10.0 16 Knee 13.1 0.8 >3.99 6.09 Knee Ankle 6.8 33.5 49 >37.9 Right Tibial/Medial Plantar Motor (Abd Pride Brev) Ankle 13.8 <7.51 0.1 >3.99 1.88 Ankle Abd Pride Brev 13.8 10.0 7 Knee 13.9 1.2 >3.99 4.38 Knee Ankle 0.1 0.0 >37.9 F Wave Studies NR F-Lat (ms) Lat Norm (ms) L-R F-Lat (ms) Left Peroneal F-Wave (EDB) NR <55.41 Right Peroneal F-Wave (EDB) NR <55.41 H Reflex Studies NR H-Lat (ms) Lat Norm (ms) L-R H-Lat (ms) Left Tibial H-Reflex (Gastroc) 35.37 31.91 1.79 Right Tibial H-Reflex (Gastroc) 33.58 31.91 1.79 EMG Side Muscle Nerve Root Ins Act Fib/ Pos Fasc Other Atrophy Amp Dur Poly Recr Pat Int Pat Comment Right Ext Dig Brev Dp Br Peron L5, S1 0 0 0 0 3+ 2- 3+ 3+ Decr Discr Right Tibialis Ant Dp Br Peron L4-5 0 1+ 0 0 1+ N 1+ 0 RFU 1- Right Peroneus Long Sup Br Peron L5-S1 0 0 0 0 0 N 1+ 0 RFU 2- Right Abd Hallucis MedPlantar S1-2 0 0 0 0 3+ 1- N 0 RFU Discr Right Gastroc Med Tibial S1-2 0 0 0 0 0 N 2+ Serr RFU 2- Right Vastus Lat Femoral L2-4 0 0 0 0 0 N N 0 Early N Right Biceps Fem SH Sciatic L5-S1 0 0 0 0 0 N N 0 N N Right Biceps Fem LH Sciatic L5-S2 0 0 0 0 0 N N 0 N N Right L5-S1 Parasp L5-S1 0 0 0 0 0 Right L3-L4 Parasp L3-L4 0 0 0 0 0 Right L1-L2 Parasp L1-L2 0 0 0 0 0 Left Ext Dig Brev Dp Br Peron L5, S1 0 0 0 0 3+ N/A N/A N/A N/A None Left Tibialis Ant Dp Br Peron L4-5 0 0 0 0 0 N N 0 N N Left Peroneus Long Sup Br Peron L5-S1 0 0 0 0 0 N 1+ 0 Early 1- Left Abd Hallucis MedPlantar S1-2 0 0 0 0 3+ N 3+ 3+ N Discr Left Gastroc Med Tibial S1-2 0 0 0 0 0 N 1+ 0 Early N Left Vastus Lat Femoral L2-4 0 0 0 0 0 N N 0 N N Left Biceps Fem LH Sciatic L5-S2 0 0 0 0 0 N N 0 N N Left Biceps Fem SH Sciatic L5-S1 0 0 0 0 0 N N 0 N N Left L5-S1 Parasp L5-S1 0 0 0 0 0 Left L3-L4 Parasp L3-L4 0 0 0 0 0 Left L1-L2 Parasp L1-L2 0 0 0 0 0 Abbreviations: Atrop=atrophy; CRD=complex repetitive discharge; Discr=discrete; Doub=doublet; Fasc=fasciculation; FFE=full for effort; Fib=fibrillation; Myokym=myokymia; [place]=myotonic potential; N,0=normal; NR=no response; Polyph=polyphasia; Pos=positive [sharp] wave; RFU=rapidly firing units; Serr=serrated potential (2<phases<5); W&W=waxing and waning pattern INTERPRETATION: This study reveals [facility] evidence of a chronic, neuropathic, primarily axonal, sensory > motor, process affecting all lower extremity nerves tested. Needle examination demonstrates a vgwvri-yg-narxmoix gradient that is most suggestive of peripheral neuropathy. This is of severe degree by electrical criteria. Potential aetiologies include diabetes mellitus, hypothyroidism, deficiencies of B12, B6, or folate, B6 excess, the collagen-vascular diseases, dysglobulinaemias, medications (including chemotherapeutics, diuretics, and others), as a paraneoplastic syndrome, and a considerable number of rarer conditions. In comparison with the previous [facility] of 12/13/2019, there is interval worsening of the peripheral neuropathic findings (lower CMAP amplitudes). The acute denervation in the R ~L4 paraspinals was not seen on the present study. Aman Quiroz M.D. Diplomate, [place] [employer] and [employer] (neurology, epilepsy, sleep medicine) Diplomate, [place] [employer] of Clinical Neurophysiology Diplomate, [place] [employer] Preventive Medicine (clinical informatics) . documented in this encounter [facility] 11-22-2022 Evaluation + Plan note Associated Problem(s): Former smoker Encouraged patient to continue to abstain from cigarettes. [facility] Work Phone: 11-22-2022 Miscellaneous Notes Associated [...] the office environment. documented in this encounter [facility] Work Phone: 11-22-2022 Evaluation + Plan note Associated Problem(s): Class 1 obesity with body mass index (BMI) of 32.0 to 32.9 in adult Her BMI puts her in the overweight category, she remains fairly active, actually her weight is not too bad for her age, I reinforced the need for heart healthy lifestyle. [facility] Work Phone: 11-22-2022 Evaluation + Plan [...] than 2 Follow-up to discuss test results. [facility] Work Phone: 11-22-2022 Evaluation + Plan [...] of blood pressures outside the office environment. [facility] Work Phone: 11-21-2022 History of Present illness Narrative Subjective Ms. Womack is a [...] which are followed by vascular surgery in [place]. She says that if she does not [...] previous visit. The ASCVD Risk score (Teresa COOK, et al., 2019) failed to calculate for the following reasons: The patient has a prior [place] or stroke diagnosis Assessment/Plan: Essential hypertension Patient [...] Elinor Raman MD documented in this encounter [facility] Work Phone: 11-21-2022 Instructions Ioana Drummond [...] of your visit. documented in this encounter [facility] Work Phone: 10-25-2022 Nurse Note AMBULATORY [...] REFERRAL (RECOMMENDATION): None Electronically Signed By: Stephanie Benavides, RN PRE OP LEARNING ASSESSMENT PROCEDURE/SURGERY: GI PROCEDURES: Colonoscopy READINESS TO LEARN COGNITIVE ABILITY: Alert and oriented MOTIVATION TO LEARN: Eager Interested FAMILY SUPPORT: High - Very involved in pt care PATIENT LEARNS BEST BY: Individual Instruction Verbal Instruction FACTORS AFFECTING LEARNING: None PHYSICAL LIMITATIONS AFFECTING LEARNING: None Electronically Signed By: Corina Alcaraz LPN In Department: GASTROENTEROLOGY documented in this encounter [facility] 10-18-2022 Miscellaneous Notes Attempted to reach the patient at the contact number that they provided [phone] (home) . 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 left informing the patient/patient screening representative they must have a responsible adult [...] Number to call with questions or concerns [phone] Number to call to cancel their procedure [phone] Swathi Verduzco RN documented in this encounter [facility] 04-21-2022 Miscellaneous Notes Received request for stool orders to be faxed to [facility]. Orders faxed successfully to [phone] Keiko Hernandez RN documented in this encounter [facility] 04-20-2022 Note HNO ID: [id number] Author: Melody Rosado APRN.CROSSING WATCHMAN Service: ? Author Type: Nurse Practitioner Type: [...] visit. Either the patient or their legal screening representative has been informed of the risks and benefits of -- and alternatives to -- treatment through a remote evaluation and consents to proceed with the evaluation remotely. Pt is advised to follow up in person with any new/worsening symptoms Her colonoscopy is due 08/2022- sooner as clinically indicate Melody Rosado APRN.CNP [facility] 04-20-2022 History of Present illness Narrative Called to discuss symptoms/plan going [...] visit. Either the patient or their legal screening representative has been informed of the risks and benefits of -- and alternatives to -- treatment through a remote evaluation and consents to proceed with the evaluation remotely. Pt is advised to follow up in person with any new/worsening symptoms Her colonoscopy is due 08/2022- sooner as clinically indicate Melody Rosado APRN.CNP documented in this encounter [facility] 04-19-2022 Note HNO ID: [id number] Author: Debbi Hammond APRN.CNP Service: ? Author Type: Nurse Practitioner Type: Progress Notes Filed: 04/20/2022 6:26 PM Note Text: VIRTUAL VISIT FOLLOW UP Dianelys Omi Womack [id number] has requested a video telemedicine for follow up of diarrhea. Dianelys Womack verbalized informed consent to proceed with the video telemedicine follow up consultation. Dianelys Omi Womack was informed that the details of [...] Glucose 74 - (more content not included)... [facility] 04-19-2022 History of Present illness Narrative VIRTUAL VISIT FOLLOW UP Dianelys Womack [id number] 1950 has requested a video telemedicine for [...] (03/03/2022)- Dr. Vera Operation: Endoscopic submucosal dissection (26275) and transanal endoscopic removal of the larger [...] On 03/03/2022 she underwent endoscopic submucosal dissection (30121) and transanal endoscopic removal of the larger rectal lesion with Dr. Vera- path detailed above. She followed up with ELIZABET Owens HEALTH PLAN ADVISOR, s/p surgery and reported feeling improved overall [...] Levsin - Repeat fecal calpro (fax to #[phone], per pt preference) - CTe to further [...] with more than 50% of the total ohgf-dg-sjvr time of the visit in counseling / coordination of care. I have confirmed and edited as necessary, the PFSH and ROS obtained by others. Unrelated to E/M, telemedicine, or virtual visit service provided within previous 7 days. No E/M service or procedure anticipated within next 24 hours. Debbi Hammond APRN.CROSSING WATCHMAN April 19, 2022 5:49 PM Answers submitted [...] with oil: Yes documented in this encounter [facility] 04-11-2022 Note HNO ID: [id number] Author: Melody Rosado APRN.CNP Service: ? Author Type: Nurse Practitioner Type: Progress Notes Filed: 04/11/2022 2:58 PM Note Text: COLORECTAL SURGERY Post-Op virtual Visit Dianelys Womack returns for a post-operative visit after undergoing surgery, on 03/03/2022. SURGEON: Fei Vera M.D. BEE TENDER: BEE TENDER: Pierre Tinoco MD. No qualified resident available. He participated in all portions of the surgery documented. This includes patient positioning, abdominal access, exposure, dissection and abdominal closure. . No qualified resident was available and he was instrumental in huddling and assistance and closure of the procedure. SURGERY/PROCEDURE: Endoscopic submucosal dissection (55229) and transanal endoscopic removal of the larger [...] For this reason, I will message Debbi Hammond APRN-CROSSING WATCHMAN to see if she can do VV [...] See above Melody (more content not included)... [facility] 03-28-2022 Miscellaneous Notes Called and spoke [...] reach out to his office to discuss [phone] Dianelys Womack complains of watery diarrhea. Electronically signed by Stephanie [facility]adiaga [facility] [place] 03/28/2022 2:00 PM EST documented in this encounter [facility] 03-10-2022 Miscellaneous Notes Called and spoke [...] again, patient appreciative of call, verbalized understanding [phone] Dianelys Womack asked to speak with Lety. [...] make the appt. documented in this encounter [facility] 03-09-2022 Miscellaneous Notes I called patient and left message. An order for vascular surgery consult was placed. 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 documented in this encounter [facility] 03-03-2022 Note HNO ID: [id number] Author: Rohini Stephenson APRN.PROFESSIONAL BASS FISHER Service: ? 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 Author Type: Nurse Electrical Cad Designer Type: Anesthesia Procedure Notes Filed: 03/03/2022 1:11 [...] March 03, 2022 TIME: 1:11 PM CSN: [id number] [facility] 03-02-2022 Miscellaneous Notes Called and spoke with patient Advised that she has a listed allergy to flagyl, so I did not send that to her pharmacy Patient verbalized understanding Dianelys Womack asked why she didn't get the flagyl and just the neomycin? documented in this encounter [facility] 03-01-2022 Miscellaneous Notes Dianelys Womack did not receive any information by mail. As discussed, please fax to daughterRenetta [phone] documented in this encounter [facility] 02-28-2022 Miscellaneous Notes Called and spoke [...] to proceed with care with CV at [facility] - I am happy to help coordinate [phone] Dianelys Womack has questions about meds she can and can't take prior to surgery. K-klore Tramadol probotic documented in this encounter [facility] 02-26-2022 Miscellaneous Notes Patient calling she has colorectal surgery on 03/03/22. Patient was given instructions on taking medications prior to surgery. Patient stated they did not go over her tramadol or Klor-con and she is concerned. Unable to see specifics on these medications to help patient. Patient denies any new or worsening symptoms of which a provider is not aware:Yes. Conferenced to [facility] database operator Aman for Colorectal Surgery coordinator of rehabilitation services provider for Dr. Fei Vera. GO TO THE EMERGENCY ROOM OR CALL 911 IF: * You develop any new symptoms * Your condition worsens * You are concerned or anxious about your condition for any other reason. If you have any questions, you can call Nurse human relations teacher back. documented in this encounter [facility] 02-24-2022 Miscellaneous Notes Called and spoke with patient She accidentally left and missed pt ed appt Reviewed pt ed over the phone Medications sent to pharmacy Will send pt ed info to her via mail Patient appreciativ eof call The Patient is returning the nurses call back. Please call patient at [phone] documented in this encounter [facility] 02-24-2022 Miscellaneous Notes Called patient. No answer, left message Advised that she is late for appt with nurse for preop education Advised that she come to appt if she is still here, if running late no problem If she left for the day, she should call the office so we can review pt ed over the phone documented in this encounter [facility] 02-24-2022 Instructions Karson Monte APRN.ALEX - 02/24/2022 10:00 AM EST PATIENT PREOPERATIVE INSTRUCTIONS Gareth Vera MD has scheduled you for your procedure at this surgery center: [facility] [place] Scheduling Office: [phone] --[address] [place] [address]. Please read below carefully for your personalized [...] Procedures: - YOU MUST HAVE A RESPONSIBLE TRAINING MGR TAKE YOU HOME. A CITY LETTER CARRIER OR PRODUCTION OPERATIONS INSPECTOR CANNOT BE MADE A RESPONSIBLE TRAINING MGR. - We recommend that a responsible person [...] call the Monday before. Your surgeon s web communications specialist will tell you what time to call the office. - If you have not reached the departmental web communications specialist by 5 P.M., call [phone] after 5 P.M. the day before your surgery. Please be aware that emergency situations arise, which may delay or change your surgical time. If this happens, we will notify you as soon as possible and regret any inconvenience. If you already have an Advance Directive, please fax a copy to [phone] or email to for it to be [...] Karson Monte APRN.CNP documented in this encounter [facility] 02-24-2022 History and physical note HISTORY AND PHYSICAL EXAMINATION SERVICE DATE: 02/24/2022 SERVICE TIME: 10:49 AM PRIMARY CARE PHYSICIAN: Monika Lehman MD REASON FOR VISIT: Dianelys Womack is a 71 year old female who is scheduled for Procedure(s): COMBINED CO2 COLONOSCOPY AND LAPAROSCOPY (N/A) TAMIS EXC RECTAL TUMOR TRANSANAL MINIMALLY INVASIVE SURGERY (N/A) at the request of Dr. Gareth Vera for consultation. My final recommendation will [...] or any previous visit (from the past 53948 hour(s)). Assessment History of anesthesia complications Patient [...] Thoracoabdominal aneurysm Followed vascular surgeon Dr. Cece LARSEN, last visit 7 months Monitoring yearly with [...] 35 kg/m^2 Non-male patient STOP-Bang Score: 3 [id number] Score: Hypertension history: Yes Stroke/TIA/thromboembolism history: Yes [id number] Score: 3 ARISCAT Score: Emergency procedure: No [...] AM PAGER/CONTACT #: documented in this encounter [facility] 01-12-2022 History and physical note COLORECTAL [...] closed Resting tone: NORMAL Squeeze tone: NORMAL Engineering Lecturer present: Yes Assessment Medical Decision Making: Assessment [...] treatment plan: moderate documented in this encounter [facility] 12-24-2021 Miscellaneous Notes Spoke to Dianelys and reviewed colonoscopy and EGD results. She notes improvement in diarrhea since the colonoscopy. Also previously noted something bulging in and out of her rectum but not since the procedure. Will ask Dr. Vera if he can attempt endoscopic or transanal resection of the polyp aTz Tejeda MD documented in this encounter [facility] 12-06-2021 Note Q3 Patient Name: Dianelys [...] present medications. Procedure Code(s): --- Professional --- 73405, Esophagogastroduodenoscopy, flexible, transoral; diagnostic, including collection of specimen(s) by brushing or washing, when performed (separate procedure) Diagnosis Code(s): --- Professional --- R10.13, Epigastric pain CPT copyright 2020 [employer]. All rights reserved. Attending Participation: I personally performed the entire procedure. Scope In: 11:20:21 AM Scope Out: 11:22:14 AM MD Kenton Rowe MD 12/06/2021 11:23:55 AM This report has been signed electronically by Kenton Kapadia MD Number of Addenda: 0 Note Initiated On: 12/06/2021 10:57 AM [facility] 12-06-2021 Nurse Note AMBULATORY PATIENT EDUCATION [...] Anastasia Orlando RN documented in this encounter [facility] 11-29-2021 Miscellaneous Notes Attempted to reach the patient at the contact number that they provided [phone] (home). 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 screening representative they must have a responsible adult [...] -Number to call with questions or concerns [phone] Jessica Green RN BSN documented in this encounter [facility] 11-05-2021 Miscellaneous Notes JOAN- please let her know that new orders have been signed Taz Tejeda MD Orders pended in this encounter. Keiko Hernandez RN Please place new egd/colonoscopy w MAC orders to be scheduled at Q3 Please contact patient's daughter(Shy) to schedule. # [phone] documented in this encounter [facility] 10-28-2021 History of Present illness Narrative VIRTUAL VISIT NEW PATIENT NAME: Dianelys Womack [facility] NO: [id number] DATE: 10/28/2021 REASON FOR VISIT Dianelys Womack [...] which included preparing to see the patient, erbs-of-puyp patient care, completing clinical documentation, obtaining and/or reviewing separately obtained history, counseling and educating the patient/family/caregiver, and ordering medications, tests, or procedures. Taz Tjeeda MD documented in this encounter [facility] 09-14-2021 Note PROCEDURE: XR FOREAR M [...] by: NATALIE FRANCO Date: 2021-09-14 08:58 [facility] 09-14-2021 Note PROCEDURE: XR FOREAR M [...] authenticated by: NATALIE FRANCO Date: 2021-09-14 08:58 [facility] 07-07-2021 Note CONSULTATION CONSULTATION DATE: 07/07/2021 [...] heavy antibiotic use. 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 She does use heat which decreases her pain. She has completed physical therapy at [facility] within the past year. She [...] of care and will call as needed. [facility] Signed and Approved by: MARANDA OSEGUERA . 07/21/2021 16:05:00 [facility] 06-14-2021 Evaluation note Encounter Date Diagnosis [...] She understands and agrees with that plan. [employer] Other 11-02-2021 Evaluation note* Encounter Date Diagnosis [...] the next visit we may consider intervention. [employer] Other Evaluation noteNo assessment information available [facility] Work Phone: [facility]* Diagnosis Diarrhea, unspecified type- Primary Abdominal pain, unspecified abdominal location Nausea Nausea alone documented in this encounter [facility] note* Diagnosis Abdominal pain, unspecified abdominal location- Primary Diarrhea, unspecified type documented in this encounter [facility] note* Diagnosis Diarrhea, unspecified type Abdominal pain, unspecified abdominal location Primary hypertension Unspecified essential hypertension Gastroesophageal reflux disease without esophagitis Esophageal reflux Chronic renal impairment, stage 2 (mild) History of anesthesia complications Unspecified adverse effect of anesthesia Cerebrovascular accident (CVA), unspecified mechanism (HCC) documented in this encounter [facility] note* Diagnosis 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, intestines, and rectum documented in this encounter [facility] note* Diagnosis Benign neoplasm of rectum- Primary Benign neoplasm of rectum and anal canal documented in this encounter [facility] note* Diagnosis Pre-op evaluation- Primary Preoperative examination, [...] involving digestive system documented in this encounter [facility] note* Diagnosis Thoracoabdominal aortic aneurysm (TAAA) without rupture, unspecified part- Primary documented in this encounter [facility] note* Diagnosis Adenomatous rectal polyp- Primary Benign neoplasm of rectum and anal canal documented in this encounter [facility] note* Diagnosis Abdominal pain, unspecified abdominal location- Primary Adenomatous rectal polyp Benign neoplasm of rectum and anal canal Adverse effect of treatment, initial encounter documented in this encounter [facility] note* Diagnosis Follow-up exam- Primary Unspecified follow-up examination documented in this encounter [facility] note* Diagnosis Abdominal pain, unspecified abdominal location Diarrhea, unspecified type documented in this encounter [facility] note* Diagnosis Former smoker- Primary Personal history of tobacco use, presenting hazards to health Essential hypertension Unspecified essential hypertension 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) PVC (premature ventricular contraction) Other premature beats Other ill-defined heart diseases documented in this encounter [facility] Work Phone: Evaluation note* Diagnosis Essential hypertension- Primary Unspecified essential hypertension documented in this encounter [facility] Work Phone: Evaluation note* Diagnosis Numbness- Primary Disturbance of skin sensation documented in this encounter [facility] HealthcareEvaluation note* Diagnosis Cervical paraspinal muscle spasm- Primary Spasm of muscle Polyneuropathy Unspecified hereditary and idiopathic peripheral neuropathy Central vestibular vertigo Vertigo of central origin Unsteadiness on feet documented in this encounter [facility] HealthcareHistory general Narrative - Reported* Type Description Date Medical History AAA Medical History CVOD Medical History CVA Medical History HTN Medical History C-diff Medical History CRI Medical History Iliac artery aneurysm Surgical History tonsillectomy and adenoidectomy Surgical History appendectomy Surgical History cholecystectomy Surgical History hysterectomy x 3 Hospitalization History childbirth Hospitalization History see above Hospitalization History pgeisert [employer] Other History of Present illness Narrative* Ms. [...] for follow-up or sooner if need be. -[facility] [address] DO Work Phone: History of Present illness NarrativeThe patient is being seen for a routine clinic follow-up of chronic kidney disease. This is classified as stage 3. Recently, the disease has been stable. There are no known disease complications. Thepatient is currently asymptomatic. No associated symptoms are reported.-[facility] 3 DO Work Phone: History of Present illness NarrativeThe patient is being seen for a routine clinic follow-up of chronic kidney disease. This is classified as stage 3. Recently, the disease has been stable. There are no known disease complications. Thepatient is currently asymptomatic. No associated symptoms are reported.-[facility] 3[facility] [place] Work Phone: History of Present illness Narrative* Dainel Ma MD - 01/20/2023 11:20 AM EST Dianelys Womack 72 y.o. @@ [facility]/Room: [id number]/Room/bed info not found Subjective: The patient is [...] follow-up. Daniel Ma MD documented in this [facility] Work Phone: Hospital Discharge instructions Additional Instructions Follow-up with your double backer as scheduled [facility] Work [facility]: Reason for referral (narrative)* Outpatient Procedure (Routine) - Pending Review Specialty Diagnoses / Procedures Referred By Guero butt Referred To Contact DIGESTIVE DISEASE MCDADE Diagnoses Abdominal pain, unspecified abdominal location Diarrhea, unspecified type Procedures COLONOSCOPY DIAGNOSTIC COLONOSCOPY FLX DX W/COLLJ [place] [address] [place] [id number] [address] Referral ID Status Reason Start Date Expiration Date Visits Requested Visits Authorized [id number] Pending Review Auto-Generat ed Referral 10/28/2021 10/28/2022 1 1 * Outpatient Procedure (Routine) - Pending Review Specialty Diagnoses / Procedures Referred By Guero butt Referred To Contact [facility] Diagnoses Abdominal pain, unspecified abdominal location Diarrhea, unspecified type Procedures EGD DIAGNOSTIC ESOPHAGOGASTRODUODENOSC OPY TRANSORAL DIAGNOSTIC Taz Tejeda MD [address] [place] [address] [address] Referral ID Status Reason Start Date Expiration Date Visits Requested Visits Authorized [id number] Pending Review Auto-Generat ed Referral 10/28/2021 10/28/2022 1 1 [facility] for referral (narrative)* Outpatient Procedure (Routine) - Pending Review Specialty Diagnoses / Procedures Referred By Contac t Referred To [facility] Diagnoses Abdominal pain, unspecified abdominal location Procedures EGD DIAGNOSTIC ESOPHAGOGASTRODUODENOSC OPY [place] [address] [place] [address] [address] Referral ID Status Reason Start Date Expiration Date Visits Requested Visits Authorized [id number] Pending Review Auto-Generat ed Referral 05/04/2022 11/04/2022 1 1 * Outpatient Procedure (Routine) - Pending Review Specialty Diagnoses / Procedures Referred By Contac t Referred To [facility] Diagnoses Diarrhea, unspecified type Procedures COLONOSCOPY DIAGNOSTIC COLONOSCOPY FLX DX W/COLLJ SPEC WHEN PFRMD Taz Tejeda MD [address] [place] [address] [address] Referral ID Status Reason Start Date Expiration Date Visits Requested Visits Authorized [id number] Pending Review Auto-Generat ed Referral 05/04/2022 11/04/2022 1 1 [facility] for referral (narrative)* Outpatient Procedure (Routine) - Closed Specialty Diagnoses / Procedures Referred By Contac t Referred To [facility] Diagnoses Abdominal pain, unspecified abdominal location Procedures EGD DIAGNOSTIC ESOPHAGOGASTRODUODENOSC OPY TRANSORAL DIAGNOSTIC Taz Tejeda MD [address] [place] [address] [address] Referral ID Status Reason Start Date Expiration Date V isits Requested Visits Authorized [id number] Closed Auto-Generate d Referral 05/04/2022 11/04/2022 1 1 * Outpatient Procedure (Routine) - Closed Specialty Diagnoses / Procedures Referred By Contac t Referred To Contact [facility] Diagnoses Diarrhea, unspecified type Procedures COLONOSCOPY DIAGNOSTIC COLONOSCOPY FLX DX W/COLLJ SPEC WHEN Taz Heard MD [address] [place] [address] [address] Referral ID Status Reason Start Date Expiration Date V isits Requested Visits Authorized [id number] Closed Auto-Generate d Referral 05/04/2022 11/04/2022 1 1 [facility] for referral (narrative)* Outpatient Procedure (Routine) - Pending Review Specialty Diagnoses / Procedures Referred By Contac t Referred To [facility] Diagnoses Adenomatous rectal polyp Procedures COLONOSCOPY DIAGNOSTIC COLONOSCOPY FLX DX W/COLLJ SPEC WHEN Taz Heard MD [address] [place] [address] [address] Referral ID Status Reason Start Date Expiration Date Visits Requested Visits Authorized [id number] Pending Review Auto-Generat ed Referral 04/10/2022 04/10/2023 1 1 [facility] for referral (narrative)* Outpatient Procedure (Routine) - Closed Specialty Diagnoses / Procedures Referred By Contac t Referred To [facility] Diagnoses Abdominal pain, unspecified abdominal location Diarrhea, unspecified type Procedures COLONOSCOPY DIAGNOSTIC COLONOSCOPY FLX DX W/COLLJ SPEC WHEN Taz Heard MD [address] [place] [address] [address] Referral ID Status Reason Start Date Expiration Date V isits Requested Visits Authorized [id number] Closed Auto-Generate d Referral 10/28/2021 10/28/2022 1 1 [facility] for referral (narrative)* Consultation (Routine) - Authorized Specialty Diagnoses / Procedures Referred By Contac t Referred To Contact Cardiology Diagnoses Essential hypertension 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) Procedures Follow Up In Cardiology Elinor Raman MD [address] [place] [address] Referral ID Status Reason Start Date Expiration Date V isits Requested Visits Authorized [id number] Authorized 11/21/2022 05/20/2023 1 1 * Cardiac Stress Testing (Routine) - Pending Review Specialty Diagnoses / Procedures Referred By Contac t Referred To Contact Radiology Diagnoses Essential hypertension 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) Other ill-defined heart diseases Procedures Nuclear Stress Test CHG MYOCARDIAL SPECT MULTIPLE STUDIES CHG MYOCARDIAL SPECT SINGLE STUDY AT REST OR STRESS Elinor Raman MD [address] [place] [address] Referral ID Status Reason Start Date Expiration Date V isits Requested Visits Authorized [id number] Pending Review 11/21/2022 05/20/2023 5 5 * CV Imaging (Routine) - Pending Review Specialty Diagnoses / Procedures Referred By Contac t Referred To Contact Cardiology Diagnoses Essential hypertension 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) PVC (premature ventricular contraction) Procedures Transthoracic Echo (TTE) Complete VA ECHO TRANSTHORC R-T 2D W/WO M-MODE REC F-UP/LMTD VA DOP ECHOCARD COLOR FLOW VELOCITY MAPPING VA DOP ECHOCARD PULSE WAVE W/SPECTRAL F-UP/LMTD STD Elinor Raman MD [address] [place] [address] Referral ID Status Reason Start Date Expiration Date Visits Requested Visits Authorized [id number] Pending Review Perform Procedure 11/21/2022 05/20/2023 [address] [facility] Work Phone: reason for visit Narrative* Outpatient Procedure (Routine) - Closed Specialty Diagnoses / Procedures Referred By Contac t Referred To Contact [facility] Diagnoses Abdominal pain, unspecified abdominal location Diarrhea, unspecified type Procedures COLONOSCOPY DIAGNOSTIC COLONOSCOPY FLX DX W/COLLJ SPEC WHEN PFRMD Taz Tejeda MD [address] [place] [address] [facility] [address] [address] Referral ID Status Reason Start Date Expiration Date V isits Requested Visits Authorized [id number] Closed Auto-Generate d Referral 10/28/2021 10/28/2022 1 1 [facility] Summary Purpose Family History No Family [...] Date/ Time Advance Directives No May 26, 2 021 1:59pm Chief Complaint DIANELYS WOMACK is [...] Referral Specialty Diagnoses / Procedures Referred By Lynnac t Referred To Contact CT IMAGING Diagnoses Adverse effect of treatment, initial encounter Abdominal pain, unspecified abdominal location Procedures CT ENTEROGRAPHY W IVCON CT ABD & PELVIS W/CONTRAST Debbi Hammond, RESIDENT CARE COORDINATOR.CROSSING WATCHMAN [address] [place] [address] Ct Imaging Referral ID Status Reason Start Date Expiration Date Visits Requested Visits Authorized [id number] Pending Review Auto-Generat ed Referral 04/19/2022 05/19/2023 1 1 Specialty Diagnoses / Procedures Referred By Guero t Referred To Contact Vascular Surgery Diagnoses Thoracoabdominal aortic aneurysm (TAAA) without rupture, unspecified part Procedures CONSULT TO VASCULAR SURGERY OFFICE/OUTPATIENT [facility] 60-74 MINUTES Gareth Vera MD [address] [place] [address] Referral ID Status Reason Start Date Expiration Date Visits Requested Visits Authorized [id number] Pending Review PCP Requested Referral 03/08/2022 03/08/2023 1 1 Additional Source Comments INFORMATION SOURCE (unrecogn ized section and content) DATE CREATED [facility] DATE CREATED AUTHOR AUTHOR'S ORGANIZ ATION 11/18/2021 [facility] DATE CREATED AUTHOR AUTHOR'S ORGANIZ ATION 03/25/2022 [facility] DATE CREATED AUTHOR AUTHOR'S ORGANIZ ATION 09/21/2022 [facility] DATE CREATED AUTHOR AUTHOR'S ORGANIZ ATION 09/21/2022 [facility] DATE CREATED AUTHOR AUTHOR'S ORGANIZ ATION 09/24/2022 [facility] DATE CREATED AUTHOR AUTHOR'S ORGANIZ ATION 10/29/2022 [facility] DATE CREATED AUTHOR AUTHOR'S ORGANIZ ATION 01/23/2023 [facility] DATE CREATED AUTHOR AUTHOR'S ORGANIZ ATION 04/25/2023 [facility] Specialists EPIC Care Teams [...] Active Daniel Ma MD Attending Provider Active 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 Start Date End Date FallonMonika [address] [facility] [address] [place] [address] PCP - General Family Practice 03/12/15 Aman Quiroz MD [address] [facility] [address] [facility] [phone] Referring Neurology 11/20/19 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 Start Date End Date Monika Lehman [address] [facility] [address] [place] [address] PCP - General Family Medicine 03/12/15 Aman Quiroz MD [address] [place] [phone] Referring Neurology 11/20/19 Team Status: Inactive Member Role Status Dates Monika Lehman MD Primary Care Provider Active Chucho Saldaña MD Emergency Provider Active 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 Start Date End Date Monika Lehman [address] [facility] [address] [place] [address] PCP - General Family Medicine 03/12/15 Aman Quiroz MD [address] [place] [address] Referring Neurology 11/20/19 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 Start Date End Date FallonMonika tapiamichael [address] [facility] [address] [place] [address] PCP - General Family Medicine 03/12/15 Aman Quiroz MD [address] [place] [address] Referring Neurology 11/20/19 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 Start Date End Date Monika Lehmanfabio [address] [facility] [address] [place] [address] PCP - General Family Medicine 03/12/15 Aman Quiroz MD [address] [place] [address] Referring Neurology 11/20/19 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 Start Date End Date Monika Lehmanfabio [address] [facility] [address] [place] [address] PCP - General Family Medicine 03/12/15 Aman Quiroz MD [address] [place] [address] Referring Neurology 11/20/19 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 Start Date End Date Monika Lehmanfabio [address] [facility] [address] [place] [address] PCP - General Family Medicine 03/12/15 Aman Quiroz MD [address] [place] [address] Referring Neurology 11/20/19 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 Start Date End Date Monika Lehman [address] [place] [address] [place] [address] PCP - General Family Medicine 03/12/15 Aman Quiroz MD [address] [place] [address] Referring Neurology 11/20/19 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 Start Date End Date Monika Lehmanfabio [address] [place] [address] [place] [address] PCP - General Family Medicine 03/12/15 Aman Quiroz MD [address] [place] [address] Referring Neurology 11/20/19 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 Start Date End Date Monika Lehmanfabio [address] [facility] [address] [place] [address] PCP - General Family Medicine 03/12/15 Aman Quiroz MD [address] [place] [address] Referring Neurology 11/20/19 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 Start Date End Date Monika Lehman [address] [place] [address] [place] [address] PCP - General Family Medicine 03/12/15 Aman Quiroz MD [address] [place] [address] Referring Neurology 11/20/19 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 Start Date End Date Monika Lehmanfabio [address] [place] [address] [place] [address] PCP - General Family Medicine 03/12/15 Aman Quiroz MD [address] [place] [address] Referring Neurology 11/20/19 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 Start Date End Date Monika Lehmanfabio [address] [place] [address] [place] [address] PCP - General Family Medicine 03/12/15 Aman Quiroz MD [address] [place] [address] Referring Neurology 11/20/19 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 Start Date End Date Monika Lehmanfabio [address] [facility] [address] [place] [address] PCP - General Family Medicine 03/12/15 Aman Quiroz MD [address] [place] [address] Referring Neurology 11/20/19 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 Start Date End Date Monika Lehmanfabio [address] [place] [address] [place] [address] PCP - General Family Medicine 03/12/15 Aman Quiroz MD [address] [place] [address] Referring Neurology 11/20/19 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 Start Date End Date Monika Lehmanfabio [address] [place] [address] [place] [address] PCP - General Family Medicine 03/12/15 Aman Quiroz MD [address] [place] [address] Referring Neurology 11/20/19 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 Start Date End Date Monika Lehman [address] [place] [address] [place] [address] PCP - General Family Medicine 03/12/15 Aman Quiroz MD [address] [place] [address] Referring Neurology 11/20/19 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 Start Date End Date Monika Lehman MD [address] [place] [address] [place] [address] PCP - General Family Medicine 03/12/15 Aman Quiroz MD [address] [place] [address] Referring Neurology 11/20/19 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 Start Date End Date Monika Lehman MD [address] [facility] [address] [place] [address] PCP - General Family Medicine 03/12/15 Aman Quiroz MD [address] [place] [address] Referring Neurology 11/20/19 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 Start Date End Date Monika Lehman MD [address] [place] [phone] PCP - General 08/14/18 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 Start Date End Date Monika Lehman MD [address] [place] [address] [place] [address] PCP - General 08/14/18 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 Start Date End Date Monika Lehman MD [address] [facility] [address] [place] [address] PCP - ACO Reach 07/07/22 Monika Lehman MD [address] [facility] [address] [place] [address] PCP - General Family Medicine 08/03/22 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 Start Date End Date Monika Lehman MD [address] [facility] [address] [place] [address] PCP - ACO Reach 07/07/22 Monika Lehman MD [address] [facility] [address] [place] [address] PCP - General Family Medicine 08/03/22 Goals (unrecognized section and content) Goals may be documented in a n alternate sectionGoals may be documented in an alternate sectionNo InformationNo InformationGoals may be documented in an alternate section REASON FOR VISIT (unrecogniz ed section and content) Reason Comments Abdominal Pain Specialty Diagnoses / Procedures Referred By Guero butt Referred To Contact Gastroenterology Diagnoses Abdominal pain, unspecified abdominal location Procedures CONSULT TO GASTROENTEROLOGY OFFICE/OUTPATIENT [facility] 60-74 MINUTES Erinn Lawson MD [address] [place] [address] Referral ID Status Reason Start Date Expiration Date Visits Requested Visits Authorized [id number] Pending Review PCP Requested Referral 10/28/2021 10/28/2022 1 1 Reason Comments Orders Egd/Colonoscopy unde r MAC Reason Comments Appointment Confirmation Pre-procedure i nstructions Specialty Diagnoses / Procedures Referred By Guero butt Referred To Contact ENDOSCOPY Diagnoses dx Procedures dx [facility] Endoscopy [address] [address] Referral ID Status Reason Start Date Expiration Date Visits Re quested Visits Authorized [id number] 1 1 Reason Comments Results Reason Comments Colon polyp Reason Onset Date Comments Refill Request 02/24/2022 Reason Comments Pre-Op Visit Reason Comments 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 Specialty Diagnoses / Procedures Referred By Contac t Referred To Contact Physical Therapy Diagnoses Other muscle spasm Polyneuropathy, unspecified Vertigo of central origin Unsteadiness on feet Procedures VA THERAPEUTIC PX 1/> AREAS EACH 15 MIN EXERCISES Aman Quiroz MD [address] [place] [address] Aleah Pierce, PT [address] [place] [address] Referral ID Status Reason Start Date Expiration Date V isits Requested Visits Authorized [id number] Authorized 02/17/2023 08/16/2023 30 30 Source Comments (unrecognize d section and content) In the event this informatio n is protected by the Federal Confidentiality of Alcohol and Drug Abuse Patient Records regulations: The Federal rules restrict any use of the information to criminally investigate or prosecute any alcohol or drug abuse patient.[facility] the event this information is protected by the Federal Confidentiality of Alcohol and Drug Abuse Patient Records regulations: The Federal rules restrict any use of the information to criminally investigate or prosecute any alcohol or drug abuse patient.[facility] the event this information is protected by the Federal Confidentiality of Alcohol and Drug Abuse Patient Records regulations: The Federal rules restrict any use of the information to criminally investigate or prosecute any alcohol or drug abuse patient.[facility] the event this information is protected by the Federal Confidentiality of Alcohol and Drug Abuse Patient Records regulations: The Federal rules restrict any use of the information to criminally investigate or prosecute any alcohol or drug abuse patient.[facility] the event this information is protected by the Federal Confidentiality of Alcohol and Drug Abuse Patient Records regulations: The Federal rules restrict any use of the information to criminally investigate or prosecute any alcohol or drug abuse patient.[facility] the event this information is protected by the Federal Confidentiality of Alcohol and Drug Abuse Patient Records regulations: The Federal rules restrict any use of the information to criminally investigate or prosecute any alcohol or drug abuse patient.[facility] Hospital[facility] the event this information is protected by the Federal Confidentiality of Alcohol and Drug Abuse Patient Records regulations: The Federal rules restrict any use of the information to criminally investigate or prosecute any alcohol or drug abuse patient.[facility] HospitalIn the event this information is protected by the Federal Confidentiality of Alcohol and Drug Abuse Patient Records regulations: The Federal rules restrict any use of the information to criminally investigate or prosecute any alcohol or drug abuse patient.[facility] HospitalIn the event this information is protected by the Federal Confidentiality of Alcohol and Drug Abuse Patient Records regulations: The Federal rules restrict any use of the information to criminally investigate or prosecute any alcohol or drug abuse patient.[facility] Hospital[facility] the event this information is protected by the Federal Confidentiality of Alcohol and Drug Abuse Patient Records regulations: The Federal rules restrict any use of the information to criminally investigate or prosecute any alcohol or drug abuse patient.[facility] Hospital[facility] the event this information is protected by the Federal Confidentiality of Alcohol and Drug Abuse Patient Records regulations: The Federal rules restrict any use of the information to criminally investigate or prosecute any alcohol or drug abuse patient.[facility] HospitalIn the event this information is protected by the Federal Confidentiality of Alcohol and Drug Abuse Patient Records regulations: The Federal rules restrict any use of the information to criminally investigate or prosecute any alcohol or drug abuse patient.[facility] HospitalIn the event this information is protected by the Federal Confidentiality of Alcohol and Drug Abuse Patient Records regulations: The Federal rules restrict any use of the information to criminally investigate or prosecute any alcohol or drug abuse patient.[facility] Hospital[facility] the event this information is protected by the Federal Confidentiality of Alcohol and Drug Abuse Patient Records regulations: The Federal rules restrict any use of the information to criminally investigate or prosecute any alcohol or drug abuse patient.[facility] HospitalIn the event this information is protected by the Federal Confidentiality of Alcohol and Drug Abuse Patient Records regulations: The Federal rules restrict any use of the information to criminally investigate or prosecute any alcohol or drug abuse patient.[facility] HospitalIn the event this information is protected by the Federal Confidentiality of Alcohol and Drug Abuse Patient Records regulations: The Federal rules restrict any use of the information to criminally investigate or prosecute any alcohol or drug abuse patient.[facility] HospitalIn the event this information is protected by the Federal Confidentiality of Alcohol and Drug Abuse Patient Records regulations: The Federal rules restrict any use of the information to criminally investigate or prosecute any alcohol or drug abuse patient.[facility] HospitalIn the event this information is protected by the Federal Confidentiality of Alcohol and Drug Abuse Patient Records regulations: The Federal rules restrict any use of the information to criminally investigate or prosecute any alcohol or drug abuse patient.[facility] HospitalIn the event this information is protected by the Federal Confidentiality of Alcohol and Drug Abuse Patient Records regulations: The Federal rules restrict any use of the information to criminally investigate or prosecute any alcohol or drug abuse patient.[facility] HospitalIn the event this information is protected by the Federal Confidentiality of Alcohol and Drug Abuse Patient Records regulations: The Federal rules restrict any use of the information to criminally investigate or prosecute any alcohol or drug abuse patient.[facility] HospitalIn the event this information is protected by the Federal Confidentiality of Alcohol and Drug Abuse Patient Records regulations: The Federal rules restrict any use of the information to criminally investigate or prosecute any alcohol or drug abuse patient.[facility] HospitalIn the event this information is protected by the Federal Confidentiality of Alcohol and Drug Abuse Patient Records regulations: The Federal rules restrict any use of the information to criminally investigate or prosecute any alcohol or drug abuse patient.[facility] HospitalIn the event this information is protected by the Federal Confidentiality of Alcohol and Drug Abuse Patient Records regulations: The Federal rules restrict any use of the information to criminally investigate or prosecute any alcohol or drug abuse patient.[facility] HospitalIn the event this information is protected by the Federal Confidentiality of Alcohol and Drug Abuse Patient Records regulations: The Federal rules restrict any use of the information to criminally investigate or prosecute any alcohol or drug abuse patient.[facility] HospitalIn the event this information is protected by the Federal Confidentiality of Alcohol and Drug Abuse Patient Records regulations: The Federal rules restrict any use of the information to criminally investigate or prosecute any alcohol or drug abuse patient.[facility] HospitalIn the event this information is protected by the Federal Confidentiality of Alcohol and Drug Abuse Patient Records regulations: The Federal rules restrict any use of the information to criminally investigate or prosecute any alcohol or drug abuse patient.[facility] the event this information is protected by the Federal Confidentiality of Alcohol and Drug Abuse Patient Records regulations: The Federal rules restrict any use of the information to criminally investigate or prosecute any alcohol or drug abuse patient.[facility] FOR RECORDS PERTAINING TO PATIENTS WHO [...] BE BASED ON THE PRIMARY CLINICAL RECORDS. [facility]. provides no warranty or guarantee of the accuracy or completeness of information in this document.
--- NOTE | 2023-05-06 15:49 | ECG_ITS ---
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
--- NOTE | 2023-05-06 15:57 | XR_ITS ---
The [address] [address] Patient Name: DIANELYS WOMACK MRN: [id number] date: 1950 Sex: F Assigned Patient Location: ER Current Patient Location: ER Accession/Order Number: [id number] Exam Date: 05/06/2023 16:12 Report Date: 05/06/2023 17:05 At the request of: YEVGENIY ARREDONDO Procedure: XR chest 1V EXAM: CHEST X-RAY HISTORY: Cough and congestion for 3 days with shortness of breath COMPARISON: None. TECHNIQUE: 1 view chest is submitted for review. FINDINGS: Lines and tubes: None. The lungs are hyperexpanded. No infiltrate. No effusion. Cardiac silhouette measures upper limits of normal for portable upright technique. Pulmonary vascularity is unremarkable. Osseous structures are within expected limits for patients age. . XR/XR chest 1V IMPRESSION: No plain film evidence for acute cardiopulmonary disease. Electronically authenticated by: PITO LU Date: 05/06/2023 17:05
--- NOTE | 2023-05-06 15:59 | ED_ITS ---
HPI - General Adult General Chief complaint: Shortness of Breath/Dyspnea Stated complaint: cough, chest hurts Time Seen by Provider: 05/06/23 15:41 Source: patient Mode of arrival: walk-in Limitations: no limitations History of Present Illness HPI narrative: Patient is a 72-year-old female who presents to the emergency department for 3- day history of runny nose, cough. Patient is coughing vigorously at initial in [facility]. She states she has had some tightness in her chest associated with the cough as well as feeling dizzy. She has had a clear runny nose. No hemoptysis or purulent sputum production. She has had no vomiting or diarrhea. No syncope or falls. She denies any history of COPD or asthma, she states she has a history of allergies. She has been using Claritin without significant improvement. Related Data Home Medications ?Medication ?Instructions ?Recorded ?Confirmed Lactobacillus acidophilus 10 100 mmu cells PO DAILY 12/20/22 12/20/22 billion cell capsule (Probacap) amlodipine 10 mg tablet 10 mg PO QDAY 12/20/22 12/20/22 aspirin 81 mg tablet,delayed 81 mg PO DAILY 12/20/22 12/20/22 release (Adult Aspirin Regimen) cetirizine 10 mg tablet (24Hour 10 mg PO DAILY PRN allergy symptoms 12/20/22 12/20/22 Allergy) cyanocobalamin (vitamin B-12) PO DAILY 12/20/22 folic acid 1 mg tablet 1 mg PO DAILY 12/20/22 12/20/22 furosemide 20 mg tablet 20 mg PO DAILY 12/20/22 12/20/22 gabapentin 600 mg tablet 600 mg PO BID 12/20/22 12/20/22 levothyroxine 200 mcg tablet 200 mcg PO DAILY 12/20/22 12/20/22 omeprazole 40 mg capsule,delayed 40 mg PO DAILY 12/20/22 12/20/22 release potassium chloride 20 mEq 20 meq PO DAILY 12/20/22 12/20/22 tablet,extended release(part/cryst) (Klor-Con M) red beet root 250 mg-sour burt tab PO DAILY 12/20/22 extract 0.5 mg chewable tablet tramadol 50 mg tablet 100 mg PO Q12H PRN pain 12/20/22 12/20/22 Previous Rx's ?Medication ?Instructions ?Recorded benzonatate 200 mg capsule 200 mg PO TID PRN cough #15 caps 05/06/23 dexamethasone 4 mg tablet 4 mg PO BID 5 days #10 tabs 05/06/23 ondansetron 4 mg disintegrating 4 mg PO Q6H PRN nausea and 05/06/23 tablet vomiting #12 tabs Allergies Allergy/AdvReac Type Severity Reaction Status Date / Time ciprofloxacin [From Cipro HC] AdvReac Intermediate Verified 12/20/22 11:34 levofloxacin AdvReac Intermediate Verified 12/20/22 11:47 metronidazole [From Flagyl] AdvReac Intermediate Verified 12/20/22 11:34 vancomycin AdvReac Intermediate Verified 12/20/22 11:47 Review of Systems ROS Constitutional Reports: chills; Denies: fever Ears, nose, mouth, and throat Reports: nasal discharge and nasal congestion; Denies: throat pain Cardiovascular Reports: chest pain Respiratory Reports: cough; Denies: change in phlegm color or coughing up blood Gastrointestinal Denies: nausea, vomiting or diarrhea Genitourinary Denies: painful urination Musculoskeletal Denies: back pain or neck pain Integumentary/Breast Denies: rash Neurological Denies: headache Hematologic/Lymphatic Denies: easy bruising or easy bleeding PFSH PFSH Social History Smoking status: Current every day smoker Exam Narrative Exam Narrative: Gen.: Awake, alert, in no distress Head: Normocephalic, atraumatic ENT: Moist mucous membranes Respiratory: No respiratory distress, lungs clear bilaterally; Harsh cough with no wheezing or rhonchi. Clear nasal drainage noted Cardio: Regular rate and rhythm Extremities: Moves extremities equally Psych: Normal mood and affect Neuro: No focal neuro deficit Skin: Warm, dry, intact Constitutional Vital Signs, click to edit/add: Last Vital Signs Temp 98.7 F 05/06/23 15:43 Pulse 90 05/06/23 17:10 Resp 16 05/06/23 17:10 BP 146/98 H 05/06/23 17:00 Pulse Ox 94 L 05/06/23 17:10 O2 Del Method Room Air 05/06/23 15:58 Course Vital Signs Vital signs: Vital Signs Temperature 98.7 F 05/06/23 15:43 Pulse Rate 92 H 05/06/23 15:43 Respiratory Rate 20 03/23/24 15:43 Blood Pressure 139/92 H 05/06/23 15:43 Pulse Oximetry 99 05/06/23 15:43 Oxygen Delivery Method Room Air 05/06/23 15:43 Temperature 98.7 F 05/06/23 15:43 Pulse Rate 90 05/06/23 17:10 Respiratory Rate 16 05/06/23 17:10 Blood Pressure 146/98 H 05/06/23 17:00 Pulse Oximetry 94 L 05/06/23 17:10 Oxygen Delivery Method Room Air 05/06/23 15:58 Medical Decision Making MDM Narrative Medical decision making narrative: Patient is positive for COVID. She has normal oxygen saturation, unremarkable chest x-ray and normal troponin and BNP. Her lactic acid is elevated and she has mild elevation of her creatinine. Suspect mild dehydration. Patient was given IV fluids, Solu-Medrol and albuterol in the ER. She is discharged home with Melissa Bell Tessalon Perles. Follow-up with PCP and return to the emergency department if symptoms change or worsen. Medical Records Medical records reviewed: Yes I reviewed the patient's medical records Lab Data Lab results reviewed: Yes I reviewed the patient's lab results Labs: Lab Results 05/06/23 05/06/23 Range/Units 15:50 16:07 WBC 6.9 (4.0-11.0) 10^3/uL RBC 4.89 (4.20-5.40) 10^6/uL Hgb 12.9 (12.0-16.0) g/dL Hct 41.9 (36.0-48.0) % MCV 85.7 (81.0-99.0) fL MCH 26.4 L (26.7-34.0) pg MCHC 30.8 (29.9-35.2) g/dL RDW 14.3 (11.0-15.0) % Plt Count 167 (150-450) 10^3/uL MPV 9.4 L (9.5-13.5) fL Neut % (Auto) 74.4 (43.0-75.0) % Lymph % (Auto) 15.3 L (20.5-60.0) % [place] % (Auto) 8.9 (1.7-12.0) % Eos % (Auto) 0.7 L (0.9-7.0) % Baso % (Auto) 0.4 (0.2-2.0) % Neut # (Auto) 5.1 (1.4-6.5) 10^3/uL Lymph # (Auto) 1.1 L (1.2-3.8) 10^3/uL [place] # (Auto) 0.6 (0.3-0.8) 10^3/uL Eos # (Auto) 0.1 (0.0-0.7) 10^3/uL Baso # (Auto) 0.0 (0.0-0.1) 10^3/uL Abs Immat Gran (auto) 0.02 (0.00-0.03) 10^3/uL Imm/Tot Granulo (auto) 0.3 (0.0-0.5) % Sodium 139 (136-145) mmol/L Potassium 3.4 L (3.5-5.1) mmol/L Chloride 99 (98-107) mmol/L Carbon Dioxide 28.0 (21.0-32.0) mmol/L Anion Gap 15.4 BUN 15.0 (7.0-18.0) mg/dL Creatinine 1.36 H (0.55-1.02) mg/dL Est GFR ( Amer) 46 L (>=60) Est GFR (Non-Af Amer) 38 L (>=60) BUN/Creatinine Ratio 11.0 Glucose 139 H (74-106) mg/dL Lactate 3.6 H* (0.4-2.0) mmol/L Calcium 9.1 (8.5-10.1) mg/dL Troponin I High Sens 10.7 (4.0-51.3) pg/mL NT-Pro-B Natriuret Pep 110.0 (<=900.0) pg/mL Influenza Type A Ag Negative Influenza Type B Ag Negative SARS-CoV-2 Ag (CV2AG) Positive A (NEGATIVE) Imaging Data Chest x-ray: Attestation: I have reviewed the pertinent imaging results. Radiologist's impression: ITS Impressions Chest X-Ray 05/06/23 15:57 IMPRESSION: No plain film evidence for acute cardiopulmonary disease. Electronically authenticated by: PTIO LU Date: 05/06/2023 17:05 ECG Data Attestation: I personally reviewed and interpreted this ECG as follows: (Sinus arrhythmia at a rate of 101, incomplete right bundle branch block with no acute ST elevation. EKG reviewed by attending physician) Discharge Plan Discharge Stand Alone Forms: Portal Instructions Chief Complaint: Shortness of Breath/Dyspnea Clinical Impression: COVID-19 Patient Disposition: Home, Self-Care Time of Disposition Decision: 17:10 Condition: Good Prescriptions / Home Meds: New dexamethasone 4 mg tablet 4 mg PO BID 5 Days Qty: 10 0RF ondansetron 4 mg tablet,disintegrating 4 mg PO Q6H PRN (Reason: nausea and vomiting) Qty: 12 0RF benzonatate 200 mg capsule 200 mg PO TID PRN (Reason: cough) Qty: 15 0RF No Action amlodipine 10 mg tablet 10 mg PO QDAY furosemide 20 mg tablet 20 mg PO DAILY gabapentin 600 mg tablet 600 mg PO BID levothyroxine 200 mcg tablet 200 mcg PO DAILY Patient Comments: monday through monday only omeprazole 40 mg capsule,delayed release(DR/EC) 40 mg PO DAILY potassium chloride [Klor-Con M20] 20 mEq tablet,ER particles/crystals 20 meq PO DAILY tramadol 50 mg tablet 100 mg PO Q12H PRN (Reason: pain) cetirizine [24Hour Allergy] 10 mg tablet 10 mg PO DAILY PRN (Reason: allergy symptoms) aspirin [Adult Aspirin Regimen] 81 mg tablet,delayed release (DR/EC) 81 mg PO DAILY folic acid 1 mg tablet 1 mg PO DAILY cyanocobalamin (vitamin B-12) [Vitamin B-12] PO DAILY Probacap 10 billion cell capsule 100 mmu cells PO DAILY red beet root-sour burt ext 250-0.5 mg tablet,chewable PO DAILY Patient Comments: beet chews 1-2 a day Print Language: Romansh Instructions: COVID-19 (Coronavirus Disease 2019) (ED), How to Recover from COVID-19 at Home (ED) Referrals: MONIKA LEHMAN [Primary Care Provider] - 1 week Discharge Date/Time: 05/06/23 17:34
[2023-05-06 16:15] LABS: Basophils Percent Auto 0.4 % (0.2-2.0); Eosinophils Absolute Auto 0.1 10^3/uL (0.0-0.7); Eosinophils Percent Auto 0.7 % (0.9-7.0); Hematocrit 41.9 % (36.0-48.0); Hemoglobin 12.9 g/dL (12.0-16.0); Immature Granulocytes Abs Auto 0.02 10^3/uL (0.00-0.03); Immature Granulocytes Pct Auto 0.3 % (0.0-0.5); Lymphocytes Absolute Auto 1.1 10^3/uL (1.2-3.8); Lymphocytes Percent Auto 15.3 % (20.5-60.0); Mean Corpuscular HGB Conc 30.8 g/dL (29.9-35.2); Mean Corpuscular Hemoglobin 26.4 pg (26.7-34.0); Mean Corpuscular Volume 85.7 fL (81.0-99.0); Mean Platelet Volume 9.4 fL (9.5-13.5); Monocytes Absolute Auto 0.6 10^3/uL (0.3-0.8); Monocytes Percent Auto 8.9 % (1.7-12.0); Neutrophils Absolute Auto 5.1 10^3/uL (1.4-6.5); Neutrophils Percent Auto 74.4 % (43.0-75.0); Platelet Count 167 10^3/uL (150-450); Red Blood Count 4.89 10^6/uL (4.20-5.40); Red Cell Distribution Width 14.3 % (11.0-15.0); White Blood Count 6.9 10^3/uL (4.0-11.0)
[2023-05-06 16:20] LABS: Influenza Virus A Antigen Negative; Influenza Virus B Antigen Negative; Internal Control Within Normal Limits
[2023-05-06 16:21] LABS: SARS-CoV-2 Ag POSITIVE (NEGATIVE)
[2023-05-06] MEDS: METHYLPREDNISOLONE SOD SUCC PF 125 MG/2 ML VIAL IVP (16:23)
[2023-05-06] MEDS: 0.9 % SODIUM CHLORIDE 1,000 ML 1000 ML IV (16:23)
[2023-05-06 16:37] LABS: Anion Gap 15.4; Calcium 9.1 mg/dL (8.5-10.1); Chloride 99 mmol/L (98-107); Estimated GFR (African America 46 (>=60); Estimated GFR (Non-African Ame 38 (>=60); Glucose 139 mg/dL (74-106); Potassium 3.4 mmol/L (3.5-5.1); Sodium 139 mmol/L (136-145); Troponin I High Sensitivity 10.7 pg/mL (4.0-51.3)
[2023-05-06 16:38] LABS: Lactate/Lactic Acid 3.6 mmol/L (0.4-2.0)
[2023-05-06] MEDS: ALBUTEROL SULFATE 200 PUFF/6.7 GM INHALER IH (18:05)
== END 2023-05-06 17:34 | disposition home or self-care (01) ==
PROVIDERS: Physician Assistant; Emergency Provider Emergency Medicine; PCP Family Medicine
DX: U07.1 COVID-19 (principal); R06.02 Shortness of breath; Z79.899 Other long term (current) drug therapy; Z79.82 Long term (current) use of aspirin; Z79.890 Hormone replacement therapy; F17.210 Nicotine dependence, cigarettes, uncomplicated
CPT/HCPCS: 36415; 71045; 80048; 83605; 83880; 84484; 85025; 87804; 87811; 93005; 94640; 96361; 96374; 99285; J2930

== ENCOUNTER 2023-07-24 12:21 | Outpatient (OUT) | payer MEDICARE, BC, SELFPAY ==
[2023-07-24 13:58] LABS: BUN Creatinine Ratio 11.4; Calcium 9.5 mg/dL (8.5-10.1); Carbon Dioxide 29.9 mmol/L (21.0-32.0); Chloride 103 mmol/L (98-107); Estimated GFR (African America 52 (>=60); Estimated GFR (Non-African Ame 43 (>=60); Glucose 107 mg/dL (74-106); Sodium 142 mmol/L (136-145)
[2023-07-24 14:15] LABS: Potassium 2.9 mmol/L (3.5-5.1)
== END 2023-07-24 12:22 | disposition home or self-care (01) ==
LOC: LAB 12:23
PROVIDERS: PCP Family Medicine; Visit Provider Internal Medicine
DX: I10 Essential (primary) hypertension (principal)
CPT/HCPCS: 36415; 80048

== ENCOUNTER 2024-03-26 09:44 | Outpatient (REF) | payer MEDICARE, BC, SELFPAY ==
--- OUTSIDE RECORDS SUMMARY | 2024-03-26 10:08 | XMS_ITS | CCD ---
Author Organization [facility] Care Team Providers Care Inspector Hairspring Name Role Phone Monika Lehman Unavailable Unavailable Unavailable MD Monika Lehman Primary Care Provider [phone] MD Nick Acosta Attending Provider MD Daniel Ma Attending Provider [phone] Nick Acosta Unavailable Monika Lehman Primary Care [...] Unavailable FALLON, DR FRANK Primary Care Unavailable HEMMER, DR RONDA Washington Attending Unavailable HEMMER, DR [...] Saldaña, Ms. Seema Romero Referring Unavai lable [place] Unavaila ble Charmaine, Daniel Attending Unavailable Charmaine, Daniel Referring Unavailable [place] Unavaila ble Charmaine, Daniel Attending Unavailable Charmaine, Daniel Referring Unavailable [place], [facility] Unavaila ble Piotr, Bubba Romero Attending Wanda Saldaña, Ms. Seema Romero Referring Unavai lable [place] Unavaila ble [place] , [facility] Un[facility] GORGUN, I FEI Attending Unavailable [facility] Unavailable TAZ TEJEDA Referring Unavailable NIKO NIETO Attending Unavailab le [facility] Un[facility] Unavailable [place] [facility] Referring Unavailable [facility] Unavailable GORGUN, I FEI Admitting Unavailable GORGUN, I FEI Attending Unavailable TAZ TEJEDA Referring Unavailable [facility] Unavailable TAZ TEJEDA Referring Unavailable PRECIOUS ROGERS Attending Unavailable [facility] Unavailable WANDA ROSADO Attending Unavailable [facility] Unavailable TAZ TEJEDA Referring Unavailable Debbi Casanova Attending Unavailable [facility] Unavailable [place], [facility] Primary Care Unavailable WANDA ROSADO Attending Unavailable [facility] Unavailable GORGUN, I FEI Referring Unavailable GORGUN, I FEI Referring Unavailable [place]ON, RUGEN MABALAY Primary Care Unavailable GORGUN, I FEI Referring Unavailable FALLON, RUGEN MABALAY Primary Care Unavailable GORGUN, I FEI Referring Unavailable FALLON, RUGEN MABALAY Primary Care Unavailable Monika Lehman MD Carlyley Primary Care Provider Monika Lehman MD Primary Care Provider [phone] Monika Lehman MD Unavailable Monika Lehman MD Primary Care Provider Daniel Ma MD Unavailable ELINOR RAMAN Attending Unavailable FALLON, RUGEN JASONALAY Primary Care Unavailable DANIEL MA Attending Unavailable [place]ALLON, RUGEN MABALAY Primary Care Unavailable DANIEL MA Attending Unavailable [place]ON, RUGEN MABALAY Primary Care Unavailable F[place]ON RUGEN M Attending Unavailable F[place]ON RUGEN M Attending Unavailable ALEAH PIERCE Attending Unavailable AMAN QUIROZ Referring Unavailable ALEAH PIERCE Attending Unavailable AMAN QUIROZ Referring Unavailable [place]ON, RUGEN M Attending Unavailable RONDA MARTINEZ Attending Unavailable AMAN QUIROZ Attending Unavailable FALLONMONIKA Mitchell M Attending Unavailable ЕЛЕНА MG Attending Unavailable ЕЛЕНА MG Attending Unavailable [place], MONIKA M Attending Unavailable Allergies Allergy Classification Reported Allergen(s) Allergy Type Date of Onset Reaction(s) Facility Nitroimidazoles (antibiotic) (1 source) metroNIDAZOLE Drug Allergy 3 Other [facility] Work Phone: Penicillins (antibiotic) (1 source) Penicillins Drug Allergy 3 Other [facility] Work Phone: Quinolones (antibiotic) (1 source) Ciprofloxacin Drug Allergy 3 Other [facility] (20 sources) Ciprofloxacin; Translations: [ciprofloxacin] Drug Allergy 1 Unknown, Other [facility] (20 sources) metroNIDAZOLE; Translations: [Flagyl] Drug Allergy 7 Unknown, Other [facility] (11 sources) Penicillins; Translations: [Penicillins] Allergy to drug (finding) 6 Other [facility] [employer] [facility] (4 sources) metroNIDAZOLE; Translations: [metronidazole] Drug Allergy 7 [facility] (20 sources) Vancomycin; Translations: [vancomycin] Drug Allergy 2 [facility] (1 source) Ciprofloxacin Drug Allergy 2 [facility] Rep[facility] (20 sources) levoFLOXacin; Translations: [LEVOFLOXACIN] Drug Allergy 6 Unknown [facility] (20 sources) Penicillins Drug Allergy 6 Unknown, Other: See Comments, Other [facility] (20 sources) Seasonal allergy; Translations: [SEASONAL ALLERGIES] Allergy to substance 1 Unknown [facility] (20 sources) Soy protein; Translations: [soy] Drug Allergy 6 Unknown [facility] (1 source) Amoxicillin / Clavulanate Drug Allergy 6 [facility] (1 source) Ciprofloxacin Drug Allergy 7 [facility] (1 source) levoFLOXacin Drug Allergy 6 [facility] (1 source) metroNIDAZOLE Drug Allergy 7 [facility] Rep[facility] (1 source) Misc-Food; Translations: [Misc-Food] Food allergy (disorder) 6 [facility] Rep[facility] (15 sources) Penicillins Drug Allergy 6 Unknown, Other [facility] (15 sources) Octacosanol Drug Allergy 1 Unknown [facility] Healthcare Medications Current Medications Medication Drug Class(es) Dates Sig (Normalized) Sig (Original) [id number] 200 actuat albuterol 0.09 mg/actuat metered dose inhaler (6 sources) beta2-Adrenergic Agonist Start: 02-20-2024 End: 02-19-2025 take 2 puff(s) by inhalation every four hours for wheezing albuterol HFA 90 mcg/act inhaler Indications: Other emphysema (CMS/HCC) , Chronic obstructive pulmonary disease, unspecified (CMS/HCC) , Mixed simple and mucopurulent chronic bronchitis (CMS/HCC) Inhale 2 puffs every 4 (four) hours if needed for wheezing 18 g 02/20/2024 02/19/2025 Active ALPRAZolam 1 mg oral tablet (20 sources) Benzodiazepine Start: 08-03-2023 End: 02-09-2024 take 1 tablet by mouth in the morning ALPRAZolam (Xanax) 1 MG tablet Indications: Adjustment disorder with anxiety (CMS/HCC) TAKE 1 TABLET BY MOUTH IN THE MORNING AND 1 TABLET BEFORE BEDTIME 60 tablet 02/09/2024 Active Start: 02-27-2023 take 1 tablet by nayeli th in the morning ALPRAZolam (Xanax) 1 MG tablet Indications: Adjustment disorder with anxiety (CMS/HCC) TAKE 1 TABLET BY MOUTH IN THE MORNING AND 1 TABLET BEFORE BEDTIME 60 tablet 0 02/27/2023 Active Start: 11-17-2021 take 1 mg by mouth once daily Alprazolam Active 1 MG PO Daily November 17, 2021 12:00am Start: 07-21-2021 take 1 tablet by nayeli th twice daily ALPRAZolam 1 MG Oral Tablet TAKE 1 TABLET BY MOUTH TWICE A DAY FOR 30 DAYS Quantity: 60 Refills: 0 Ordered: 21-Jul-2021 DO Start : 21-Jul-2021 Complete take 1 tablet by nayeli th once daily ALPRAZolam XR (Xanax XR) 1 mg 24 hr tablet Take 1 tablet (1 mg) by mouth once daily. Active take 1 tablet by nayeli th twice daily ALPRAZolam ER 1 MG Oral Tablet Extended Release 24 Hour one tablet BID Quantity: 0 Refills: 0 Ordered: 20-Jul-2021 DO Active Comment on above: Take 1 mg by mouth a s needed. aspirin 81 mg delayed release oral tablet (3 sources) Platelet Aggregation Inhibitor, Nonsteroidal Anti-inflammatory Drug End: take 1 tablet by mouth once daily aspirin 81 mg EC tablet Take 1 tablet (81 mg) by mouth once daily. 07/21/2023 Discontinued (Med List Cleanup) b complex vitamins (Vitamins B Complex) capsule (3 sources) take 1 capsule by mouth once daily b complex vitamins (Vitamins B Complex) capsule Take 1 capsule by mouth once daily. Active take 1 capsule by mouth once edward ly b complex vitamins (Vitamins B Complex) capsule Take 1 capsule by mouth once daily. 0 Active b complex vitamins capsule (6 sources) take 1 capsule by mouth once daily b complex vitamins capsule Take 1 capsule by mouth Daily Active B Complex-Folic Acid (vitamin-B complex) split tablet (2 sources) B Complex-Folic Acid (vitamin-B complex) split tablet 1 half tablet 3 (three) times a week. 0 Active bisacodyl 5 mg delayed release oral tablet (4 sources) Stimulant Laxative Start: End: Bisacodyl (DULCOLAX) 5 mg tab Use as directed for Miralax / Gatorade Bowel Prep Kit 4 tablet 0 02/24/2022 02/25/2022 Active Comment on above: Use as directed for Miralax / Gatorade Bowel Prep Kit carbamide peroxide 65 mg/ml otic solution (2 sources) Start: End: carbamide peroxide (Debrox) 6.5 % otic solution Indications: Excessive cerumen in ear canal, left Administer 4 drops into affected ear(s) in the morning and 4 drops before bedtime. Do all this for 4 days. 15 mL 12/20/2023 12/24/2023 Active Centrum Silver 50+Women - (2 sources) Centrum Silver 50+Women - as directed Orally Active cetirizine hydrochloride 10 mg oral tablet (20 sources) Histamine-1 Receptor Antagonist take 1 tablet by mouth every twenty-four hours as needed cetirizine (ZyrTEC) 10 MG tablet 10 mg Daily as needed for allergies. Active Comment on above: Take by mouth as nee ded. chlorthalidone 25 mg oral tablet (2 sources) Thiazide-like Diuretic take 1 tablet by mouth every twelve hours Chlorthalidone 25 MG 1 tablet in the morning with food Orally bid Active docusate sodium 100 mg oral capsule (14 sources) Start: take 1 capsule by mouth twice daily as needed for constipation docusate sodium (Colace) 100 MG capsule Indications: Chronic idiopathic constipation Take 1 capsule (100 mg) by mouth 2 (two) times a day as needed for constipation. 200 capsule 3 08/01/2022 Active take 1 tablet by nayeli twice daily as needed docusate sodium (Colace) 100 mg tablet Take 1 tablet (100 mg) by mouth 2 times a day as needed. Active take 1 tablet by mouth once antonio y Docusate Sodium 100 MG Oral Tablet Take 1 tablet daily Quantity: 0 Refills: 0 Ordered: 03-May-2021 DO Active ergocalciferol 1.25 mg oral capsule (11 sources) Provitamin D2 Compound Start: 01-13-2024 End: 12-14-2024 take 1 capsule by mouth every week ergocalciferol (Vitamin D2) 1.25 MG (49239 UT) capsule Indications: Vitamin D deficiency Take 1 capsule (1.25 mg) by mouth 1 (one) time per week 4 capsule 11 01/13/2024 12/14/2024 Active escitalopram 20 mg oral tablet (11 sources) Serotonin Reuptake Inhibitor Start: 07-26-2023 End: 07-25-2024 take 1.5 tablets by mouth in the morning escitalopram (Lexapro) 20 MG tablet Indications: Reactive depression (CMS/HCC) Take 1.5 tablets (30 mg) by mouth in the morning. 135 tablet 3 07/26/2023 07/25/2024 Active Start: 01-23-2023 take 1 tablet by nayeli th in the morning escitalopram (Lexapro) 20 MG tablet Indications: Reactive depression (CMS/HCC) Take 1 tablet (20 mg) by mouth in the morning. 90 tablet 1 01/23/2023 Active folic acid 1 mg oral tablet (20 sources) Start: 11-08-2021 End: 12-20-2023 take 1 tablet by mouth once daily folic acid (Folvite) 1 MG tablet Indications: Nonalcoholic fatty liver disease without nonalcoholic steatohepatitis (BISWAS) Take 1 tablet (1,000 mcg) by mouth Daily 100 tablet 3 12/20/2023 Active take 0.5 tablet by mouth once da poncho Folic Acid 1 MG Oral Tablet take 1/2 tablet daily Quantity: 0 Refills: 0 Ordered: 03-May-2021 DO Active Comment on above: once daily. furosemide 20 mg oral tablet (20 sources) Loop Diuretic Start: 08-07-2023 End: 08-07-2024 take 1 tablet by mouth once daily furosemide (Lasix) 20 MG tablet Indications: Spondylosis without myelopathy or radiculopathy, lumbar region Take 1 tablet (20 mg) by mouth Daily 90 tablet 1 02/09/2024 08/07/2024 Active Start: 11-17-2021 take 20 mg by mouth once daily Furosemide Active 20 MG PO Daily November 17, 2021 12:00am gabapentin 600 mg oral tablet (20 sources) Anti-epileptic Agent Start: 11-17-2021 End: 12-20-2023 take 1 tablet by mouth at bedtime gabapentin (Neurontin) 600 MG tablet Indications: Polyneuropathy , Peripheral polyneuropathy TAKE 1 TAB BY MOUTH IN THE MORNING, EVENING AND BEFORE BEDTIME 270 tablet 1 12/20/2023 Active Start: 11-17-2021 Gabapentin Act patrizia 600 MG PO Twice daily November 17, 2021 12:00am Takes 2 at a time if going to be walking a lot. Gabapentin 100 M G as directed Orally Active take 1 capsule by [facility] every twenty-four hours Gabapentin 400 MG 1 [...] bromide 0.042 mg/actuat metered dose nasal spray (15 sources) Anticholinergic take 2 spray(s) nasal route every eight hours ipratropium (Atrovent) 0.06 % nasal spray Administer 2 sprays into each nostril every 8 (eight) hours. Active levothyroxine sodium 0.2 mg oral tablet (20 sources) l-Thyroxine Start: End: take 1 tablet by mouth in the morning, then take 1 tablet by mouth once daily before mealtime, then take 0.5 tablet by mouth in the morning levothyroxine (Synthroid, Levoxyl) 200 MCG tablet Indications: Hypothyroidism, unspecified (CMS/HCC) Take 1 tablet (200 mcg) by mouth in the morning. Take before meals. TAKE 1 TABLET BY MOUTH EVERY MORNING ON AN EMPTY STOMACH,ONLY TAKE 1/2 TABLET ON MONDAY AND MONDAY. 90 tablet 3 12/20/2023 Active Levothyroxine So dium 200 MCG TAKE 1 TABLET BY MOUTH EVERY MORNING ON AN EMPTY STOMACH BUT ONLY 1/2 TABLET ON MONDAY & MONDAY Oral for 90 Active Comment on above: once daily. Magnesium (17 sources) magnesium 250 MG tablet 1 (one) time each day at the same time. Active magnesium 250 MG tablet 1 (one) time each day at the same time. 0 Active Magnesium 400 MG as directed Orally Not-Taking Misc Natural Products (YumVs Beet Root-Tart Aguilera) 250-0.5 MG chewable tablet (4 sources) Misc Natural Pro ducts (YumVs Beet Root-Tart Aguilera) 250-0.5 MG chewable tablet Chew Daily as needed (pt does not take this daily, but does take it when she thinks about it.) Active omeprazole 40 mg delayed release oral capsule (20 sources) Proton Pump Inhibitor Start: 4 take 1 capsule by mouth once daily omeprazole (PriLOSEC) [address] capsule Indications: Gastroesophageal reflux disease without esophagitis TAKE 1 CAPSULE BY MOUTH EVERY DAY 100 capsule 3 10/17/2023 Active Start: 11-17-2021 take 1 capsule by [facility] once daily omeprazole (PriLOSEC) [address] capsule Indications: Gastroesophageal reflux disease without esophagitis TAKE 1 CAPSULE BY MOUTH EVERY DAY 100 capsule 3 10/20/2022 Active take 40 mg by mouth once daily OMEPRAZOLE ORAL Take 40 mg by mouth once daily. 0 Active Comment on above: Take 40 mg by mouth once daily. polyethylene glycol 3350 27946 mg powder for oral solution (4 sources) Osmotic Laxative Start: 3 End: 3 polyethylene glycol 3350 (MIRALAX, GLYCOLAX) 17 gram/dose powder Use as directed for Miralax / Gatorade Bowel Prep Kit 238 g 0 02/24/2022 02/25/2022 Active Comment on above: Use as directed for Miralax / Gatorade Bowel Prep Kit predniSONE 20 mg oral tablet (3 sources) Start: 4 End: 4 take 2 tablets by mouth once daily predniSONE (Deltasone) 20 MG tablet Indications: Acute serous otitis media, recurrence not specified, unspecified laterality Take 2 tablets (40 mg) by mouth Daily for 5 days 10 tablet 01/17/2024 01/22/2024 Active Start: 08-17-2021 predniSONE 10 MG Oral Tablet TAKE 4 TABS DAILY X4 DAYS, THEN 3 TABS X4 DAYS, 2 TABS X4 DAYS, 1 TAB X4 DAYS Quantity: 40 Refills: 0 Ordered: 17-Aug-2021 DO Start : 17-Aug-2021 Complete Probiotic Product (PROBIOTIC BLEND PO) (15 sources) Probiotic Produc t (PROBIOTIC BLEND PO) Take 1 Capful by mouth Daily Active take 1 capsule by mouth in the m orning Probiotic Product (PROBIOTIC BLEND PO) Take 1 capsule by mouth in the morning. Active take 1 capsule by mouth in the m orning Probiotic Product (PROBIOTIC BLEND PO) Take 1 capsule by mouth in the morning. 0 Active spironolactone 25 mg oral tablet (6 sources) Aldosterone Antagonist Start: 02-20-2024 End: 05-20-2024 take 1 tablet by mouth once daily spironolactone (Aldactone) 25 MG tablet Indications: Localized swelling of both lower extremities Take 1 tablet (25 mg) by mouth Daily 90 tablet 02/20/2024 05/20/2024 Active traMADol hydrochloride 50 mg oral tablet (20 sources) Opioid Agonist Start: 08-07-2023 End: 01-19-2024 take 1 tablet by mouth every six hours for pain traMADol (Ultram) 50 MG tablet Indications: Neuralgia and neuritis, unspecified , Spondylosis without myelopathy or radiculopathy, lumbar region Take 1 tablet (50 mg) by mouth every 6 (six) hours if needed for moderate pain 120 tablet 12/20/2023 01/19/2024 Active Start: 02-16-2023 take 1 tablet by nayeli th every six hours for pain traMADol (Ultram) [...] 17, 2021 12:00am take 1 tablet by nayeli th twice daily traMADol (Ultram) 50 mg tablet Take 1 tablet (50 mg) by mouth 2 times a day. Active take 1 tablet by nayeli th four times daily as needed for pain traMADol HCl - 50 MG Oral Tablet TAKE 1 TABLET 4 TIMES DAILY NEEDED FOR PAIN. Quantity: 0 Refills: 0 Ordered: 20-Jul-2021 DO Active Comment on above: as needed. Completed/Discontinued Medications Medication Drug Class(es) Dates Sig (Normalized) Sig (Original) amLODIPine 10 mg oral tablet (20 sources) Dihydropyridine Calcium Channel Barry Start: 07-26-2023 End: 07-25-2024 take 1.5 tablets by mouth once daily amLODIPine (Norvasc) 10 MG tablet Indications: Hypertension Take 1.5 tablets (15 mg) by mouth Daily 135 tablet 3 07/26/2023 02/20/2024 Discontinued (Side effects) Start: 05-03-2021 take 1 tablet by nayeli th in the morning amLODIPine (Norvasc) 10 MG tablet Take 10 mg by mouth in the morning. 0 06/21/2022 Active Start: 05-03-2021 take 1 tablet by nayeli th once daily amLODIPine (NORVASC) 5 mg tablet Take 5 mg by mouth once daily. 0 10/27/2021 Active take 1.5 tablets by mouth once daily amLODIPine (Norvasc) 10 mg tablet Take 1.5 tablets (15 mg) by mouth once daily. Active amLODIPine Besyl ate Active Comment on above: Take 5 mg by mouth o nce daily. Astelin 137 MCG/SPRAY (2 sources) take 1 puff(s) nasal route twice daily Astelin 137 MCG/SPRAY 1 puff in each nostril Nasally Twice a day Not-Taking B Complex Vitamins (VITAMIN B COMPLEX 100 IJ) (8 sources) End: 01-17-2024 B Complex Vitamins (VITAMIN B COMPLEX 100 IJ) Take 100 Int'l Units by mouth in the morning. 01/17/2024 Discontinued (Other) B Complex Vitami ns (VITAMIN B COMPLEX 100 IJ) Take 100 Int'l Units by mouth in the morning. Active B Complex Vitami ns (VITAMIN B COMPLEX 100 IJ) Take 100 Int'l Units by mouth in the morning. 0 Active bifidobacterium animalis [id number] unt / lactobacillus acidophilus [id number] unt oral capsule (3 sources) Probiotic CAPS T TESFAYE 1 CAPSULE Daily Quantity: 0 Refills: 0 Ordered: 03-May-2021 DO Active carvedilol 6.25 mg oral tablet (7 sources) alpha-Adrenergic Barry, beta-Adrenergic Barry take 1 tablet by mouth twice daily at mealtime Carvedilol 6.25 MG Oral Tablet TAKE 1 TABLET TWICE DAILY WITH MEALS. Quantity: 0 Refills: 0 Ordered: 03-May-2021 DO Active Carvedilol Activ e cefTRIAXone 1000 mg injection (4 sources) Cephalosporin Antibacterial Start: 03-21-2024 End: 03-21-2024 cefTRIAXone (Rocephin) vial 1 g Start: 03-21-2024 End: 03-21-2024 1 g, Intramuscular, Once, On Michelle 03/21/24 at 1615, For 1 dose, Suspected Indication (Select all that apply): Site Not Specified, Specify: Sinusitis, has history of antibiotic induced neuropathy and C.Diff, Type of Therapy: Empiric cholecalciferol 0.025 mg oral tablet (1 source) [...] above: Take by mouth once d aily. 10 ml lidocaine hydrochloride 20 mg/ml injection (4 sources) Antiarrhythmic, Amide Local Anesthetic Start: 03-21-2024 End: 03-21-2024 lidocaine (Xylocaine) 2 % injection 40 mg Start: 03-21-2024 End: 03-21-2024 40 mg (2 mL), Injection, Onc e, On Michelle 03/21/24 at 1630, For 1 dose Start: 03-21-2024 End: 03-21-2024 lidocaine (Xylocaine) 2 % in jection 40 mg Start: 03-21-2024 End: 03-21-2024 40 mg (2 mL), Injection, Onc e, On Michelle 03/21/24 at 1630, For 1 dose montelukast 10 mg oral tablet (2 sources) Leukotriene Receptor Antagonist take 1 tablet by mouth every twenty-four hours Montelukast Sodium 10 MG 1 tablet Orally Once a day Not-Taking neomycin sulfate 500 mg oral tablet (20 sources) Aminoglycoside Antibacterial Start: 02-24-19 23 neomycin 500 mg tablet Take 2 tablets by mouth at 9pm and take 2 tablets by mouth at 11pm the night before surgery. 4 tablet 0 02/24/2022 Active Comment on above: Take 2 tablets by mo uth at 9pm and take 2 tablets by mouth at 11pm the night before surgery. ondansetron 4 mg oral tablet (20 sources) Serotonin-3 Receptor Antagonist Start: 11-18-19 22 ondansetron (ZOFRAN) 4 mg tablet as needed. 0 11/17/2021 Active Ondansetron HCl - 4 MG Oral Tablet PRN Quantity: 0 Refills: 0 Ordered: 22-Mar-2022 DO Active Comment on above: as needed. microencapsulated potassium chloride 20 meq extended release oral tablet (20 sources) Start: 02-27-2023 End: 03-15-2025 take 1 tablet by mouth once daily potassium chloride CR (KLOR-CON) 20 MEQ ER tablet Indications: Hypokalemia Take 1 tablet (20 mEq) by mouth Daily 100 tablet 3 02/09/2024 02/20/2024 Discontinued (Therapy completed) Start: 11-17-2021 take 20 mEq by mouth once antonio y Potassium Chloride Active 20 MEQ PO Daily November 17, 2021 12:00am Start: 10-07-2021 KLOR-CON M20 2 0 mEq tablet Take 20 mEq by mouth twice daily. 0 10/07/2021 Active take 1 tablet by nayeli th once daily Potassium Chloride Rose ER 20 MEQ Oral Tablet Extended Release TAKE 1 TABLET DAILY. Quantity: 0 Refills: 0 Ordered: 03-May-2021 DO Active Comment on above: Take 20 mEq by mouth twice daily. rifAXIMin 550 mg oral tablet (2 sources) Rifamycin Antibacterial take 1 tablet by mouth once daily Xifaxan 550 MG Oral Tablet one tablet daily Quantity: 0 Refills: 0 Ordered: 20-Jul-2021 DO Active tiZANidine 4 mg oral tablet (7 sources) Central alpha-2 Adrenergic Agonist Start: End: 5 take 1 tablet by mouth every eight hours for muscle spasms tiZANidine (Zanaflex) 4 MG tablet Indications: Muscle cramps Take 1 tablet (4 mg) by mouth every 8 (eight) hours if needed for muscle spasms for up to 10 days 30 tablet 01/17/2024 02/20/2024 Discontinued (Side effects) take 1 tablet by nayeli th at bedtime as needed tiZANidine HCl 2 MG TAKE 1 TABLET BY NAYELI TH AT BEDTIME NEEDED Oral for 30 Not-Taking [...] UT) (1 source) take 1 tablet by nayeli th once daily Vitamin D3 25 MCG (1000 UT) 1 tablet Orally Once a day Not-Taking Zinc (2 sources) take 1 tablet by nayeli th once daily Zinc 30 MG 1 tablet Orally Once a day Not-Taking Problems Active Problems Problem Classification Problem Date Documented Da te Episodic/Chronic Acute cerebrovascular disease (20 sources) Cerebrovascular accident; Translations: [Cerebral infarction, unspecified] Onset: 2 Chronic Adjustment disorders (18 sources) Adjustment disorder with anxious mood; Translations: [Adjustment disorder with anxiety] Onset: 6 08-22-2022 Chronic Anxiety disorders (20 sources) Mixed anxiety and depressive disorder; Translations: [Anxiety disorder, unspecified] Onset: 3 02-24-2022 Chronic Aortic; peripheral; and visceral artery aneurysms (20 sources) Abdominal aortic aneurysm; Translations: [Abdominal aneurysm without mention of rupture] Onset: 6 Resolved: 2 Chronic Cardiac dysrhythmias (20 sources) Ventricular premature beats; Translations: [Other premature beats] Onset: 3 11-21-2022 Chronic Cardiac dysrhythmias (9 sources) Sinus bradycardia; Translations: [Other specified cardiac dysrhythmias] Episodic Chronic kidney disease (20 sources) Chronic kidney disease stage 3; Translations: [Chronic kidney disease, Stage III (moderate)] Onset: 8 Resolved: 4 Chronic Chronic kidney disease (1 source) Chronic kidney disease; Translations: [N18.30 - Chronic kidney disease, stage 3 unspecified] Onset: 2 Chronic obstructive pulmonary disease and bronchiectasis (20 sources) Chronic obstructive lung disease; Translations: [Chronic obstructive pulmonary disease, unspecified] Onset: 8 08-22-2022 Chronic Delirium, dementia, and amnestic and other cognitive disorders (17 sources) Dementia; Translations: [Unspecified dementia without behavioral disturbance] Onset: 1 08-22-2022 Chronic Diabetes mellitus without complication (2 sources) Abnormal glucose tolerance test; Translations: [Other abnormal glucose] 12-20-2023 Episodic Disorders of lipid metabolism (19 sources) Dyslipidemia; Translations: [Hyperlipidemia, unspecified] Onset: 0 08-22-2022 Chronic Esophageal disorders (20 sources) Gastroesophageal reflux disease without esophagitis; Translations: [Gastro-esophageal reflux disease without esophagitis] Onset: 1 Chronic Essential hypertension (20 sources) Essential hypertension; Translations: [Unspecified essential hypertension] Onset: 5 Chronic Heart valve disorders (15 sources) Aortic valve sclerosis; 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] Onset: 9 08-22-2022 Chronic Hepatitis (2 sources) Nonalcoholic steatohepatitis; Translations: [Nonalcoholic steatohepatitis (BISWAS)] Chronic Immunizations and screening for infectious disease (2 sources) Patient encounter status; Translations: [Encounter for immunization] 01-17-2024 Episodic Mood disorders (15 sources) Reactive depression (situational); Translations: [Major depressive disorder, single episode, unspecified] Onset: 3 12-26-2022 Chronic Mood disorders (1 source) Mood disorders; Translations: [Anxiety and depression] Onset: 3 Nausea and vomiting (1 source) Nausea; Translations: [Nausea] Episodic Nutritional deficiencies (20 sources) Vitamin D deficiency; Translations: [Vitamin D deficiency, unspecified] Onset: 3 08-22-2022 Chronic Occlusion or stenosis of precerebral arteries (20 sources) Bilateral stenosis of carotid arteries; Translations: [Occlusion and stenosis of bilateral carotid arteries] Onset: 1 Resolved: 3 10-07-2022 Chronic Other aftercare (1 source) Follow-up status; Translations: [Encounter for follow-up examination after completed treatment for conditions other than malignant neoplasm] Episodic Other aftercare (6 sources) Long-term current use of diuretic; Translations: [Encounter for therapeutic drug level monitoring] Onset: 5 03-05-2024 Episodic Other and ill-defined heart disease (1 source) Heart disease; Translations: [Other ill-defined heart diseases] 11-21-2022 Chronic Other and unspecified benign neoplasm (1 source) Benign neoplasm of rectum; Translations: [Benign neoplasm of rectum] Episodic Other and unspecified benign neoplasm (2 sources) Adenomatous polyp of rectum; Translations: [Benign neoplasm of rectum] Episodic Other connective tissue disease (2 sources) Neuropathy; Translations: [Neuralgia and neuritis, unspecified] 12-20-2023 Episodic Other connective tissue disease (2 sources) Cramp; Translations: [Cramp and spasm] 01-17-2024 Episodic Other connective tissue disease (2 sources) Bilateral localized swelling of lower limbs; Translations: [Other specified soft tissue disorders] 02-20-2024 Episodic Other ear and sense organ disorders (15 sources) Hearing loss; Translations: [Unspecified hearing loss, unspecified ear] Onset: 0 08-22-2022 Chronic Other ear and sense organ disorders (2 sources) Excessive cerumen in ear canal ; Translations: [Impacted cerumen, left ear] 12-20-2023 Episodic Other endocrine disorders (15 sources) Hyperparathyroidism; Translations: [Hyperparathyroidism, unspecified] Onset: 4 08-07-2023 Chronic Other gastrointestinal disorders (4 sources) Irritable bowel syndrome with diarrhea; Translations: [IRRITABLE BOWEL SYND W/DIARRHEA] Onset: 2 Chronic Other gastrointestinal disorders (17 sources) Irritable bowel syndrome; Translations: [Irritable bowel syndrome without diarrhea] Onset: 3 08-22-2022 Chronic Other gastrointestinal disorders (4 sources) Diarrhea; Translations: [Diarrhea, unspecified] Episodic Other hereditary and degenerative nervous system conditions (2 sources) Hereditary ataxia; 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, unspecified] 02-20-2024 Chronic Other liver diseases (15 sources) Steatosis of liver; Translations: [Fatty (change of) liver, not elsewhere classified] Onset: 1 08-22-2022 Chronic Other liver diseases (19 sources) Non-alcoholic fatty liver disease without non-alcoholic steatohepatitis; Translations: [Fatty (change of) liver, not elsewhere classified] Onset: 1 08-22-2022 Chronic Other nervous system disorders (7 sources) Polyneuropathy; Translations: [Polyneuropathy, unspecified] Onset: 0 10-11-2022 Chronic Other nervous system disorders (15 sources) Chronic pain; Translations: [Other chronic pain] Onset: 7 08-22-2022 Chronic Other nervous system disorders (13 sources) Toxic polyneuropathy; Translations: [Polyneuropathy due to other toxic agents] Onset: 0 08-07-2023 Chronic Other nervous system disorders (2 sources) Chronic pain syndrome; Translations: [Chronic pain syndrome] 01-17-2024 Chronic Other nervous system disorders (1 source) Numbness; Translations: [Anesthesia of skin] 03-24-2023 Episodic Other nutritional; endocrine; and metabolic disorders (20 sources) Obesity; Translations: [Obesity, unspecified] Onset: 3 11-20-2022 Chronic Other upper respiratory disease (17 sources) Seasonal allergy; Translations: [Other seasonal allergic rhinitis] Onset: 3 08-22-2022 Chronic Other upper respiratory disease (15 sources) Chronic rhinitis; Translations: [Chronic rhinitis] Onset: 1 08-22-2022 Chronic Other upper respiratory infections (4 sources) Acute maxillary sinusitis; Translations: [Acute maxillary sinusitis, unspecified] Onset: 5 03-21-2024 Episodic Peripheral and visceral atherosclerosis (17 sources) Generalized atherosclerosis; Translations: [Generalized atherosclerosis] Onset: 0 08-22-2022 Chronic Residual codes; unclassified (1 source) Swelling - edema - symptom; Translations: [Edema] Episodic Residual codes; unclassified (4 sources) Localized edema; Translations: [Localized edema] 01-17-2024 Episodic Spondylosis; intervertebral disc disorders; other back problems (20 sources) Spondylosis without myelopathy or radiculopathy, lumbar [...] Date Documented Da te Episodic/Chronic Abdominal pain (20 sources) Abdominal pain; Translations: [Unspecified abdominal pain] Onset: 12-06-2021 Episodic Anal and rectal conditions (1 source) Other specified diseases of anus and rectum; Translations: [Rectal mass] Onset: 03-03-2022 Episodic Complications of surgical procedures or medical care (20 sources) Difficult intubation; Translations: [Failed or difficult intubation, initial encounter] Onset: 02-24-2022 02-24-2022 Episodic Conditions associated with dizziness or vertigo (20 sources) Dizziness; Translations: [Dizziness and giddiness] Onset: 04-02-2019 11-20-2022 Episodic E Codes: Fall (15 sources) Fall in home; Translations: [Unspecified fall, initial encounter] Onset: 12-26-2022 12-26-2022 Episodic Fluid and electrolyte disorders (20 sources) Hypokalemia; Translations: [Hypopotassemia] Onset: 10-21-2021 11-17-2021 Episodic Neoplasms of unspecified nature or uncertain behavior (3 sources) Neoplasm of uncertain behavior of colon; Translations: [Neoplasm of uncertain behavior of colon] Onset: 02-24-2022 Episodic Nutritional deficiencies (17 sources) Cobalamin deficiency; Translations: [Deficiency of other specified B group vitamins] Onset: 10-07-2022 10-07-2022 Episodic Other aftercare (1 source) Other f[facility] (current) drug therapy; Translations: [OTH [facility] CURRENT DRUG THERAPY] Onset: 10-21-2021 Episodic Other aftercare (1 source) Encounter for follow-up examination after completed treatment for conditions other than malignant neoplasm; Translations: [Follow-up exam] Onset: 04-20-2022 Episodic Other connective tissue disease (4 sources) Pain in left arm; Translations: [PAIN IN LEFT ARM] Onset: 09-13-2021 Episodic Other connective tissue disease (16 sources) Spasm of cervical paraspinous muscle; Translations: [Other muscle spasm] Onset: 08-08-2022 08-08-2022 Episodic Other connective tissue disease (17 sources) Neurogenic pain; Translations: [Neuralgia and neuritis, unspecified] Onset: 10-07-2022 10-07-2022 Episodic Other gastrointestinal disorders (1 source) Diarrhea, unspecified; Translations: [Diarrhea, unspecified type] Onset: 12-06-2021 Episodic Other gastrointestinal disorders (17 sources) Constipation; Translations: [Constipation, unspecified] Onset: 08-01-2022 08-01-2022 Episodic Other nervous system disorders (16 sources) Unsteady when standing; Translations: [Unsteadiness on feet] Onset: 08-08-2022 08-08-2022 Episodic Other nervous system disorders (17 sources) White matter disease; Translations: [White matter disease, unspecified] Onset: 08-22-2022 08-22-2022 Episodic Other nutritional; endocrine; and metabolic disorders (20 sources) Overweight in adulthood with body mass index of 25 or more but less than 30; Translations: [Overweight] Onset: 11-20-2022 11-20-2022 Episodic Otitis media and related conditions (17 sources) Dysfunction of bilateral eustachian tubes; Translations: [Unspecified Eustachian tube disorder, bilateral] Onset: 03-02-2015 08-22-2022 Episodic Residual codes; unclassified (20 sources) Edema; Translations: [Edema] Onset: 11-20-2022 11-20-2022 [...] [ACQ ABSENCE OTH PART DIGESTV TRACT] Onset: 09-08-2022 Episodic Residual codes; unclassified (1 source) Acquired [...] Spondylosis; intervertebral disc disorders; other back problems (20 sources) Neck pain; Translations: [Cervicalgia] Onset: 03-03-2020 08-08-2022 Episodic Unclassified (3 sources) Onset: 11-21-2022 Resolved: 07-21-2023 11-21-2022 Unclassified (1 source) Pararenal abdominal aortic aneurysm, 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); Translations: [Pararenal abdominal aortic aneurysm, 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)] Onset: 11-21-2022 Varicose veins of lower extremity (15 sources) Varicose vein of leg with phlebitis; Translations: [Varicose veins of unspecified lower extremity with inflammation] Onset: 11-03-2020 08-22-2022 Episodic Results Test Name Value Interpretation Reference Range Facility [facility] 03-12-2024 Albumin [Mass/Vol] 4.0 g/dL Normal 3.6-5.1 [facility] Comment on above: Performed By: #### 1 0231 #### [facility] [address] [address] Regional Loss Prevention Manager: Doug Trejo MD Albumin/Globulin [Mass ratio] 1.4 {ratio} Normal 1.0-2.5 [facility] Comment on above: Performed By: #### 1 8121 #### [facility] [address] [address] Regional Loss Prevention Manager: Doug Trejo MD ALP [Catalytic activity/Vol] 127 U/L Normal 37-153 [facility] Comment on above: Performed By: #### 1 0231 #### [facility] of [place] [address] Regional Loss Prevention Manager: Doug Trejo MD ALT [Catalytic activity/Vol] 13 U/L Normal 6-29 [facility] Comment on above: Performed By: #### 1 0231 #### [facility] of [place] [address] Regional Loss Prevention Manager: Doug Trejo MD AST [Catalytic activity/Vol] 23 U/L Normal 10-35 [facility] Comment on above: Performed By: #### 1 0231 #### [facility] [place] [address] Regional Loss Prevention Manager: Doug Trejo MD Bilirubin [Mass/Vol] 0.5 mg/dL Normal 0.2-1.2 [facility] Comment on above: Performed By: #### 1 0231 #### [facility] [place] [address] Regional Loss Prevention Manager: Doug Trejo MD Calcium [Mass/Vol] 9.3 mg/dL Normal 8.6-10.4 [facility] Comment on above: Performed By: #### 1 0231 #### [facility] [place] [address] Regional Loss Prevention Manager: Doug Trejo MD Chloride [Moles/Vol] 103 mmol/L Normal 98-110 [facility] Comment on above: Performed By: #### 1 0231 #### [facility] [place] [address] Regional Loss Prevention Manager: Doug Trejo MD CO2 [Moles/Vol] 31 mmol/L Normal 20-32 [facility] Comment on above: Performed By: #### 1 0231 #### [facility] [place] [address] Regional Loss Prevention Manager: Doug Trejo MD Creatinine [Mass/Vol] 1.07 mg/dL High 0.60-1.[address] [facility] Comment on above: Performed By: #### 1 0231 #### [facility] [place] [address] Regional Loss Prevention Manager: Doug Trejo MD GFR/1.73 sq M.predicted among non-blacks MDRD (S/P/Bld) [Vol rate/Area] 55 mL/min/{1.73_m2} Low > OR = 60 [facility] Comment on above: Performed By: #### 1 0231 #### [facility] of [address], [address] [place] [address] Regional Loss Prevention Manager: Doug Trejo MD Globulin (S) [Mass/Vol] 2.8 g/dL Normal 1.9-3.7 [facility] Comment on above: Performed By: #### 1 0231 #### [facility] [place] [address] Regional Loss Prevention Manager: Doug Trejo MD Glucose [Mass/Vol] 98 mg/dL Normal 65-99 [facility] Comment on above: Result Comment: Fasting reference interval Performed By: #### 1 0231 #### [facility] [place] [address] Regional Loss Prevention Manager: Doug Trejo MD Potassium [Moles/Vol] 4.0 mmol/L Normal 3.5-5.[address] [facility] Comment on above: Performed By: #### 1 0231 #### [facility] [place] [address] Regional Loss Prevention Manager: Doug Trejo MD Protein [Mass/Vol] 6.8 g/dL Normal 6.1-8.1 [facility] Comment on above: Performed By: #### 1 0231 #### [facility] [place] [address] Regional Loss Prevention Manager: Doug Trejo MD Sodium [Moles/Vol] 141 mmol/L Normal 135-146 [facility] Comment on above: Performed By: #### 1 0231 #### [facility] [address] [place] [address] Regional Loss Prevention Manager: Doug Trejo MD Urea nitrogen [Mass/Vol] 18 mg/dL Normal 7-25 [facility] Comment on above: Performed By: #### 1 0231 #### [facility] [place] [address] Regional Loss Prevention Manager: Doug Trejo MD Urea nitrogen/Creatinine [Mass ratio] 17 mg/mg Normal 6-22 [facility] Comment on above: Performed By: #### 1 0231 #### [facility] [place] [address] Regional Loss Prevention Manager: Doug Trejo MD CBC (H/H, RBC, INDICES, WBC, PLT)on 01-11-2024 Erythrocyte distribution width (RBC) [Ratio] 14.6 % Normal 11.0-15.0 [facility] Comment on above: Performed By: #### 1 069, 899, 496, 60236, 7600 #### [facility] [place] [address] Regional Loss Prevention Manager: Doug Trejo MD Hematocrit (Bld) [Volume fraction] 40.2 % Normal 35.0-45.0 [facility] Comment on above: Performed By: #### 1 529, 899, 496, 07801, 7600 #### [facility] [place] [address] Regional Loss Prevention Manager: Doug Trejo MD Hemoglobin (Bld) [Mass/Vol] 12.7 g/dL Normal 11.7-15.5 [facility] Comment on above: Performed By: #### 1 449, 899, 496, 26968, 7600 #### [facility] [place] [address] Regional Loss Prevention Manager: Doug Trejo MD MCH (RBC) [Entitic mass] 26.7 pg Low 27.0-33.0 [facility] Comment on above: Performed By: #### 1 419, 899, 496, 58599, 7600 #### [facility] [place] [address] Regional Loss Prevention Manager: Doug Trejo MD MCHC (RBC) [Mass/Vol] 31.6 g/dL Low 32.0-36.[address] [facility] Comment on above: Result Comment: For adults, a slight decrease in the calculated MCHC value (in the range of 30 to 32 g/dL) is most likely not clinically significant; however, it should be interpreted with caution in correlation with other red cell parameters and the patient's clinical condition. Performed By: #### 1 759, 899, 496, 72205, 7600 #### [facility] [place] [address] Regional Loss Prevention Manager: Doug Trejo MD MCV (RBC) [Entitic vol] 84.5 fL Normal 80.0-100.0 [facility] Comment on above: Performed By: #### 1 759, 899, 496, 38740, 7600 #### [facility] [place] [address] Regional Loss Prevention Manager: Doug Trejo MD Platelet mean volume (Bld) [Entitic vol] 10.6 fL Normal 7.5-12.5 [facility] Comment on above: Performed By: #### 1 759, 899, 496, 25991, 7600 #### [facility] [place] [address] Regional Loss Prevention Manager: Doug Trejo MD Platelets (Bld) [#/Vol] 225 10*3/uL Normal 140-400 [facility] Comment on above: Performed By: #### 1 759, 899, 496, 92481, 7600 #### [facility] of [place] [address] Regional Loss Prevention Manager: Doug Trejo MD RBC (Bld) [#/Vol] 4.76 10*6/uL Normal 3.80-5.10 [facility] Comment on above: Performed By: #### 1 759, 899, 496, 50759, 7600 #### [facility] [address], [address] [place] [address] Regional Loss Prevention Manager: Doug Trejo MD WBC (Bld) [#/Vol] 6.2 10*3/uL Normal 3.8-10.8 [facility] Comment on above: Performed By: #### 1 759, 899, 496, 13959, 7600 #### [facility] [place] [address] Regional Loss Prevention Manager: Doug Trejo MD HEMOGLOBIN A1con 01-11-2024 HEMOGLOBIN A1c 5.5 % of total Hgb Normal <5.7 [facility] Comment on above: Result Comment: For the purpose of screening for the presence of diabetes: <5.7% Consistent with the absence of diabetes 5.7-6.4% Consistent with increased risk for diabetes (prediabetes) > or =6.5% Consistent with diabetes This assay result is consistent with a decreased risk of diabetes. Currently, no consensus exists regarding use of hemoglobin A1c for diagnosis of diabetes in children. According to [place] [employer] (ADA) guidelines, hemoglobin A1c <7.0% represents optimal control in non- diabetic patients. Different metrics may apply to specific patient populations. Standards of Medical Care in Diabetes(ADA). Performed By: #### 1 759, 899, 496, 92944, 7600 #### [facility] [place] [address] Regional Loss Prevention Manager: Doug Trejo MD LIPID PANEL, STANDARDon 12-15 Cholesterol [Mass/Vol] 196 mg/dL Normal <200 [facility] Comment on above: Order Comment: FASTI NG:YES FASTING: YES Performed By: #### 1 759, 899, 496, 78827, 7600 #### [facility] [place] [address] Regional Loss Prevention Manager: Doug Trejo MD Cholesterol in HDL [Mass/Vol] 64 mg/dL Normal > OR = 50 [facility] Comment on above: Order Comment: FASTI NG:YES FASTING: YES Performed By: #### 1 759, 899, 496, 17267, 7600 #### [facility] [address], [address] [place] [address] Regional Loss Prevention Manager: Doug Trejo MD Cholesterol in LDL [Mass/Vol] 114 mg/dL High [facility] Comment on above: Order Comment: FASTI NG:YES FASTING: YES Result Comment: Refe rence range: <100 Desirable range <100 mg/dL for primary prevention; <70 mg/dL for patients with CHD or diabetic patients with > or = 2 CHD risk factors. LDL-C is now calculated using the Deonna calculation, which is a validated novel method providing better accuracy than the Friedewald equation in the estimation of LDL-C. Rico SS et al. ALEXUS. 2013;310(19): 4483-0170 (http://education.WePopp/faq/MSO521) Performed By: #### 1 546, 639, 496, 95988, 7600 #### [facility] [address], [address] [place] [address] Regional Loss Prevention Manager: Doug Trejo MD Cholesterol.total/Choles terol in HDL [Mass ratio] 3.1 {ratio} Normal <5.0 [facility] Comment on above: Order Comment: FASTI NG:YES FASTING: YES Performed By: #### 1 759, 899, 496, 10328, 7600 #### [facility] [address], [address] [place] [address] Regional Loss Prevention Manager: Doug Trejo MD NON HDL CHOLESTEROL 132 mg/dL (calc) High <130 [facility] Comment on above: Order Comment: FASTI NG:YES FASTING: YES Result Comment: For patients with diabetes plus 1 major ASCVD risk factor, treating to a non-HDL-C goal of <100 mg/dL (LDL-C of <70 mg/dL) is considered a therapeutic option. Performed By: #### 1 189, 899, 496, 52468, 7600 #### [facility] [address], [address] [place] [address] Regional Loss Prevention Manager: Doug Trejo MD Triglyceride [Mass/Vol] 81 mg/dL Normal <150 [facility] Comment on above: Order Comment: FASTI NG:YES FASTING: YES Performed By: #### 1 759, 899, 496, 99309, 7600 #### [facility] [address], [address] [place] [address] Regional Loss Prevention Manager: Doug Trejo MD TSHon 01-11-2024 TSH Qn 1.97 m[IU]/L Normal 0.40-4.50 [facility] Comment on above: Performed By: #### 1 759, 899, 496, 17755, 7600 #### [facility] [address], [address] [place] [address] Regional Loss Prevention Manager: Doug Trejo MD VITAMIN D,25-OH,TOTAL,IAon 1 03-12-2023 VITAMIN D,25-OH,TOTAL,IA 19 ng/mL Low 30-100 [facility] Comment on above: Result Comment: Denny min D Status 25-OH Vitamin D: Deficiency: <20 ng/mL Insufficiency: 20 - 29 ng/mL Optimal: > or = 30 ng/mL For 25-OH Vitamin D testing on patients on D2-supplementation and patients for whom quantitation of D2 and D3 fractions is required, the QuestAssureD(TM) 25-OH VIT D, (D2,D3), LC/MS/MS is recommended: order code 89899 (patients >2yrs). See Note 1 Note 1 For additional information, please refer to http://education.IsoPlexis.[employer]/faq/QYD184 (This link is being provided for informational/ educational purposes only.) Performed By: #### 1 759, 899, 496, 05327, 7600 #### [facility] [address], [address] [place] [address] Regional Loss Prevention Manager: Doug Trejo MD BASIC METABOLIC PANELon 07-14 Calcium [Mass/Vol] 9.5 mg/dL Normal 8.6-10.4 [facility] Comment on above: Performed By: #### 1 0165 #### [facility] [address] [address] Regional Loss Prevention Manager: Doug Trejo MD Chloride [Moles/Vol] 104 mmol/L Normal 98-110 [facility] Comment on above: Performed By: #### 1 0165 #### [facility] [place] [address] Regional Loss Prevention Manager: Doug Trejo MD CO2 [Moles/Vol] 30 mmol/L Normal 20-32 [facility] Comment on above: Performed By: #### 1 0165 #### [facility] [place] [address] Regional Loss Prevention Manager: Doug Trejo MD Creatinine [Mass/Vol] 1.38 mg/dL High 0.60-1.[address] [facility] Comment on above: Performed By: #### 1 0165 #### [facility] [place] [address] Regional Loss Prevention Manager: Doug Trejo MD GFR/1.73 sq M.predicted among non-blacks MDRD (S/P/Bld) [Vol rate/Area] 40 mL/min/{1.73_m2} Low > OR = 60 [facility] Comment on above: Performed By: #### 1 0165 #### [facility] [place] [address] Regional Loss Prevention Manager: Doug Trejo MD Glucose [Mass/Vol] 90 mg/dL Normal 65-99 [facility] Comment on above: Result Comment: Fasting reference interval Performed By: #### 1 0165 #### [facility] [place] [address] Regional Loss Prevention Manager: Doug Trejo MD Potassium [Moles/Vol] 3.5 mmol/L Normal 3.5-5.[address] [facility] Comment on above: Performed By: #### 1 0165 #### [facility] [place] [address] Regional Loss Prevention Manager: Doug Trejo MD Sodium [Moles/Vol] 143 mmol/L Normal 135-146 [facility] Comment on above: Performed By: #### 1 0165 #### [facility] of [address], [address] [place] [address] Regional Loss Prevention Manager: Doug Trejo MD Urea nitrogen [Mass/Vol] 25 mg/dL Normal 7-25 [facility] Comment on above: Performed By: #### 1 0165 #### [facility] [address], [address] [place] [address] Regional Loss Prevention Manager: Doug Trejo MD Urea nitrogen/Creatinine [Mass ratio] 18 mg/mg Normal 6-22 [facility] Comment on above: Performed By: #### 1 0165 #### [facility] [address], [address] [place] [address] Regional Loss Prevention Manager: Doug Trejo MD ANES POSTPROC EVALon 023 ANES POSTPROC EVAL HNO ID: [id number] Author: Precious Rogers MD Service: ? Author [...] with this procedure. Documented by Iliana Montoya APRN.[employer]OU[employer]OR [employer]SEMBLER 10/25/2022 11:15 AM EDT SIGNATURE: Precious Benito MD PATIENT NAME: Dianelys Womack DATE: October 25, 2022 TIME: 7:22 PM CSN: [id number] Normal [facility] ANES PRE-OPon 10-25-2022 ANES PRE-OP HNO ID: [id number] Author: Precious Rogers MD Service: ? Author Type: Anesthesiologist Type: Anesthesia Preprocedure Evaluation Filed: 10/25/2022 10:40 AM Note Text: ANESTHESIOLOGY DAY OF SURGERY NOTE : 1950 Procedure Information Anesthesia Start Date/Time: 10/25/22 1030 Scheduled providers: Kenton Kapadia MD; Iliana Montoya APRN.[employer]OU[employer]OR ASSEMBLER; Precious Rogers MD Procedure: COLONOSCOPY DIAGNOSTIC Location: [...] and consent discussed: yes. Patient / Responsible [employer] agrees to proceed: yes Patient / Surrogate agrees to blood products: Yes Potential Anesthesia issues that may suggest increased risk of complications or contraindication to planned procedure: potential difficult intubation. (if needed) Vitals Value Taken Time BP 155/88 10/25/22 0953 Pulse 101 10/25/22952 Resp 20 10/25/22952 Temp [...] October 25, 2022 TIME: 10:37 AM CSN: [id number] Normal [facility] Colonoscopyon 10-25-2022 Colonoscopy Q3 Patient Name: Dianelys [...] for surveillance. Procedure Code(s): --- Professional --- 07757, Colonoscopy, flexible; with removal of tumor(s), polyp(s), or other lesion(s) by snare technique Diagnosis Code(s): --- Professional --- Z12.11, Encounter for screening for malignant neoplasm of colon Z86.010, Personal history of colonic polyps Z98.890, Other specified postprocedural states D12.2, Benign neoplasm of ascending colon CPT copyright 2020 [employer]. All rights reserved. Attending Participation: I personally performed the entire procedure. Scope In: 10:37:51 AM Scope Out: 11:08:30 AM MD Kenton Rowe MD 10/25/2022 11:34:00 AM This report has been signed electronically by Kenton Kapadia MD Number of Addenda: 0 Note Initiated On: 10/25/2022 10:08 AM Normal [facility] NURSING PROGon 10-25-2022 NURSING PROG HNO ID: [id number] Author: Stephanie Benavides, DELMAR Service: Nursing Author [...] Electronically Signed By: Stephanie Benavides RN Normal [facility] NURSING PROG HNO ID: [id number] Author: Corina Alcaraz LPN Service: Gastroenterology Author [...] Corina Alcaraz LPN In Department: GASTROENTEROLOGY Normal [facility] SURGICAL PATHOLOGYon 023 CASE REPORT Normal [facility] Comment on above: Order Comment: Magnus montoya Type: TISSUE SPECIMENOrdering Facility: [facility] Address: [address] [place] [phone] Result Comment: Surg ical Pathology Report Case: [id number] Authorizing Provider: Kenton Kapadia MD Collected: 10/25/2022 11:06 AM Ordering Location: Gastroenterology Received: 10/25/2022 06:28 PM Pathologist: Vishnu Carlton MD Specimen: ASCENDING COLON POLYP Performed By: #### S ####[facility]DR[facility] LABORATORYCLIA [id number] [address] LABCLIA [id number] [address] FINAL DIAGNOSIS Normal [facility] Comment on above: Order Comment: Magnus montoya Type: TISSUE SPECIMENOrdering Facility: [facility] Address: [address] [place] [phone] Result Comment: A. A scending colon, polypectomy: - Fragments of tubular adenoma. Performed By: #### S ####RIGOMOLOGAN LABORATORYCLIA [id number] [address] LABCLIA [id number] [address] [place] FINAL PERFORMING LAB Normal [facility] Comment on above: Order Comment: Speci men Type: TISSUE SPECIMENOrdering Facility: [facility] Address: [address] [address] Result Comment: Diag nostic interpretation performed at [facility], [address] [place] [address] CLIA# [id number] Brick Pitcher: Gloria Sanz M.D. Performed By: #### S ####[facility]ALTH[facility] [id number] [address] LABIA [id number] [address] GROSS DESCRIPTION Normal [facility] Comment on above: Order Comment: Speci men Type: TISSUE SPECIMENOrdering Facility: [facility] Address: [address] [address] Result Comment: A. A SCENDING COLON POLYP Received in formalin are multiple pieces of pascual, soft tissue aggregating to 1.5 x 0.2 x 0.2 cm. Totally submitted in one cassette. Gross examination performed at [facility], [address] October 26, 2022 12:06 AM Performed By: #### S ####[facility] HEALTHIA [id number] [address] LABIA [id number] [address] OF [place] Magdiel 10-18-2022 JUAN DIEGO Telephone ([facility]) ---- DIANELYS WOMACK ([id number]) 1950 F Date Time Provider Department 10/18/22 [facility] During your visit today, we recorded the following information about you: Swathi Verduzco RN 10/18/2022 9:46 AM Signed Attempted to reach the patient at the contact number that they provided [phone] (home) . 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 left informing the patient/patient construction representative they must have a responsible adult [...] Number to call with questions or concerns [phone] Number to call to cancel their procedure [phone] Swathi Verduzco RN Allergies As of Date: [...] Encounter Status:Closed by SWATHI VERDUZCO on 10/18/22 [facility] Established Visit (Nephrolog y)on 09-20-2022 Established Visit (Nephrology) Diagnoses/Problems CKD (chronic kidney disease), stage III (585.3) (N18.30) Essential hypertension (401.9) (I10) Orders CKD (chronic kidney disease), stage III, Essential hypertension Basic Metabolic Panel; Status:Active; Requested for:96Ufz6554; Parathormone Intact, Serum; Status:Active; Requested for:20Sep2022; Vitamin D 25-Hydroxy; Status:Active; Requested for:20Sep2022; Essential hypertension Renew: amLODIPine Besylate 10 MG [...] Capsuleone capsule daily Vitals Vital Signs Recorded: 58Ama1501 12:51PM Xymhyhcddom11.2 F Heart Rate90 Tdbeygwm706, RUE, Sitting Sllmkaita043, RUE, Sitting Height5 ft 3 in Oxujhl793 lb BMI Eegcwkumjd34.23 kg/m2 BSA Calculated1.78 Physical Exam General: The [...] Moves extremities. (more content not included)... Normal [facility] Cardiovasc Arrhythmia Result son 05-12-2022 Cardiovasc Arrhythmia Results Reason For Visit Reason for Visit: Holter Monitor: DIANELYS is here for the application of a 24 hour Holter monitor. Ordering Physician: Seema Jim NP Diagnosis: PVC [facility] equipment agreement signed. DIANELYS understands monitor is to be returned on: 05/13/2022 Monitor number [id number] applied. Holter monitor returned and downloaded. 05/18/2022 [...] Date/TimeProviderSp ecialtySite 09/20/2022 12:50 PMDaniel Ma MDNephrology[address] [facility] [address] Doming[address] 3 DO 05/08/2023 01:00 Elinor Blankenship MDCardiology703 [facility] 2 Alberto 250 DO Signatures Electronically signed by : Dima Minor MD; May 23 2022 4:14PM EST (Author) Electronically signed by : Seema Saldaña APRN-PILOT CAPTAIN; May 24 2022 2:39PM EST (Author) Normal [facility] Office Visit (Cardiology)on 05-04-2022 Follow-up visit Diagnoses/Problems [...] Adverse Reaction; (more content not included)... Normal [facility] Tobacco Screening.on 023 Adult depression screening assessment No [facility] [employer] DO Work Phone: Fall risk assessment b) One or more falls in the last year [facility] [employer] DO Work Phone: Tobacco use status [facility] b) No M [facility] [employer] DO Work Phone: Magdiel 03-28-2022 ALEXN Telephone ([employer]) ---- DIANELYS WOMACK ([id number]) 1950 F Date Time Provider Department 03/28/22 Gareth VERA During your visit today, we recorded the following information about you: Stephanie Maradiaga [facility] 03/28/2022 2:00 PM Signed [phone] Dianelys Womack complains of watery diarrhea. Lety Quinones, RN 03/28/2022 4:02 PM Signed Called and [...] RN - Fully Assessed Reason for Visit: Head Of It - Other [3602] Prescriptions as of 03/28/2022 - neomycin 500 [...] Encounter Status:Closed by LETY QUINONES on 03/28/22 [facility] Telephone ([employer]) ---- DIANELYS WOMACK ([id number]) 1950 F Date Time Provider Department 03/28/22 Gareth VERA During your visit today, we recorded the following information about you: Cayden Alex [facility] 03/28/2022 12:15 PM Signed Dianelys Womack [phone], have questions no info given. Lety Quinones [...] Fully Assessed Reason for Visit: Patient Question [8696] Prescriptions as of 03/28/2022 - neomycin 500 [...] difficult intubation [Z91.89] 02/24/2022 Encounter Status:[facility] CTA ABD/PELVIS WO W CONon CTA ABD/PELVIS [...] NATALIE FRANCO Date: 2022-03-24 08:09 Normal [facility] CREATININEon 03-23-2022 Creatinine [Mass/Vol] 0.97 mg/dL Normal 0.55-1.02 [facility] Comment on above: Performed By: #### C DOYLE ####[facility] [address] [address]DrBubba Mittal EGFR-AF BELGIAN >60 Normal >=60 The [facility] Comment on above: Performed By: #### C DOYLE ####[facility] [address] [place], [place] [address]ZdBubba Mittal EGFR-NON AF BELGIAN 56 mL/min/1.73m2 Critically low >=60 [facility] Comment on above: Performed By: #### C DOYLE ####[facility] [address] [address]DrBubba Mittal Established Visit (Nephrolog y)on 03-22-2022 Established Visit (Nephrology) Diagnoses/Problems CKD (chronic kidney disease), stage III (585.3) (N18.30) Essential hypertension (401.9) (I10) Orders CKD (chronic kidney disease), stage III, Essential hypertension Basic Metabolic Panel; Status:Active; Requested for:87Yqp8120; Parathormone Intact, Serum; Status:Active; Requested for:92Uws5018; Phosphorus, Serum; Status:Active; Requested for:23Lad1208; Vitamin D 25-Hydroxy; Status:Active; Requested for:98Dsh2450; Provider Impressions 1. Hypertension. Blood pressure is [...] CAPSone capsule daily Vitals Vital Signs Recorded: 22Mar2022 03:35PM Xefkwuaxndh87.1 F Heart Rate60 Wxpgponq761, LUE, Sitting Sndoxrlxy72, LUE, Sitting Height5 ft 3 in Pwqkjz970 lb BMI Igljwtziaj18.81 kg/m2 BSA Calculated1.74 Tobacco Useb) No Falls [...] Exam: Speech is fluent. Moves extremities. Results/Data [facility] Basic Metabolic Xqyyt44Uki1961 10:05[facility] [address] [address] (more content not included)... Normal [facility] Tobacco Screening.on 023 Fall risk assessment b) One or more falls in the last year [facility] 3 DO Work Phone: Tobacco use status [facility] b) No M [facility] 3 DO Work Phone: Magdiel 03-10-2022 JUAN DIEGO Telephone ([facility]) ---- DIANEYLS WOMACK ([id number]) 1950 F Date Time Provider Department 03/10/22 Gareth VERA During your visit today, we recorded the following information about you: Stephanie Maradiaga [facility] 03/10/2022 1:30 PM Signed [phone] Dianelys Womack asked to speak with Lety. [...] encouraged her to make the appt. 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 Stephanie Maradiaga [facility] 03/09/2022 2:39 PM Signed I called patient and left message. An order for vascular surgery consult was placed. A message was sent to our schedulers to coordinate, however, she can call herself to schedule [phone] Allergies As of Date: 03/08/2022 Noted Allergy [...] Status:Closed by STEPHANIE JONES on 03/09/22 Normal [facility] OPERATIVE NOon 03-04-2022 OPERATIVE NO HNO ID: [id number] Author: Gareth Vera MD Service: Colorectal Author Type: Physician Type: Operative Report Filed: 03/04/2022 6:56 AM Note Text: [facility] - Operative Report [address] [address] [place] DIANELYS WOMACK : 1950 AGE: 71. SEX: F PATIENT TYPE: A HOSP SVC: [facility] LOCATION: [address] [address] ATTENDING PHYSICIAN: Fei Vera M.D. CSN NUMBER: [id number] DATE OF SURGERY/PROCEDURE: 03/03/2022 INCISION/PROCEDURE START TIME: 12:56 PM INCISION CLOSE/PROCEDURE END TIME: 3:38 PM PREOPERATIVE DIAGNOSIS: Rectal LST POSTOPERATIVE DIAGNOSIS: Same SURGEON: Fei Vera M.D. GLOVE PRINTER: GLOVE PRINTER: Pierre Tinoco MD. No qualified resident available. He participated in all portions of the surgery documented. This includes patient positioning, abdominal access, exposure, dissection and abdominal closure. . No qualified resident was available and he was instrumental in huddling and assistance and closure of the procedure. SURGERY/PROCEDURE: Endoscopic submucosal dissection (10542) and transanal endoscopic removal of the larger [...] portions of the operation. Fei Vera M.D. EG:[id number] /[id number] Normal [facility] ANES POSTPROC EVALon 023 ANES POSTPROC EVAL HNO ID: [id number] Author: Lakeshia Delacruz MD, PhD Service: ? Author Type: Anesthesiologist Type: Anesthesia Postprocedure Evaluation Filed: 03/03/2022 9:43 PM Note Text: POST ANESTHESIA EVALUATION NOTE : 1950 Procedure Summary Date: 03/03/22 Room / Location: [facility] Anesthesia Start: 1207 Anesthesia Stop: 1603 Procedures: COMBINED CO2 COLONOSCOPY AND LAPAROSCOPY (Anus) TAMIS EXC RECTAL TUMOR TRANSANAL MINIMALLY INVASIVE SURGERY (Anus) Diagnosis: Rectal mass (Rectal mass [K62.89]) Surgeons: Gareth Vera MD Responsible Provider: Lakeshia Delacruz MD, PhD Anesthesia Type: general ASA Status: 3 Anesthesia Type: general Airway Type: ETT Last Vitals Vitals Value Taken Time BP 140/78 03/03/22 180 Temp 36.4 ?C (97.5 ?F) 03/03/22 180 HR SpO2 57 03/03/22 1803 Resp 16 03/03/22 180 SpO2 98 % 03/03/22 180 Post Anesthesia Patient Status Patient Evaluation: bedside. [...] with this procedure. Documented by Rohini Stephenson APRN.LOUVER DOOR ASSEMBLER 03/03/2022 3:04 PM EST SIGNATURE: Lakeshia Delacruz MD, PhD PATIENT NAME: Dianelys Womack DATE: March 03, 2022 TIME: 9:43 PM CSN: [id number] [facility] ANES PRE-OPon 03-03-2022 ANES PRE-OP HNO ID: [id number] Author: Lakeshia Delacruz MD, PhD Service: ? Author Type: Anesthesiologist Type: Anesthesia Preprocedure Evaluation Filed: 03/03/2022 11:43 AM Note Text: ANESTHESIOLOGY DAY OF SURGERY NOTE : 1950 Procedure Information Date/Time: 03/03/22 1115 Procedures: COMBINED CO2 COLONOSCOPY AND LAPAROSCOPY (Anus) TAMIS EXC RECTAL TUMOR TRANSANAL MINIMALLY INVASIVE SURGERY (Anus) Location: [facility] Surgeons: Gareth Vera MD [...] and consent discussed: yes. Patient / Responsible Green Party agrees to proceed: yes Patient / [...] March 03, 2022 TIME: 11:39 AM CSN: [id number] [facility] BRIEF OP NOTon 03-03-2022 BRIEF OP NOT HNO ID: [id number] Author: Pollo Cardenas MD, PhD Service: Colorectal Author Type: Physician Type: Brief Op Note Filed: 03/03/2022 3:30 PM Note Text: BRIEF OPERATIVE NOTE - COLORECTAL SURGERY Log ID: [id number] Surgery/Procedure Date: 03/03/2022 Incision/Procedure Start Time: 12:56 PM Incision Close/Procedure End Time: 3:26 PM Surgeon(s) and Director Of Compensation(s): Surgeon(s) and Role: * Gareth Vera MD [...] COLON POLYP Tissue COLON POLYP SURGICAL PATHOLOGY Gareth Vera MD 03/03/2022 1:26 PM B : Tissue RECTAL POLYP SURGICAL PATHOLOGY I Fei Vera MD 03/03/2022 3:28 PM Diagnosis Code(s): Pre-Op Diagnosis Codes: * Rectal mass [K62.89] Postop Diagnosis: same Drains: None Wound Classification: N/A Complications: None SIGNATURE: Pollo Cardenas MD, PhD PATIENT NAME: Dianelys Womack DATE: March 03, 2022 TIME: 3:26 PM [facility] COLONOSCOPY (THERAPEUTIC)on 03-03-2022 [facility] Colonoscopyon 03-03-2022 Colonoscopy OR Gastrointestinal Endoscopy Patient [...] was minimal. Procedure Start: Procedure End: Normal [facility] SURGICAL PATHOLOGYon 023 CASE REPORT Normal [facility] Comment on above: Order Comment: Speci men Type: TISSUE SPECIMENOrdering Facility: [facility] Address: [address] [place] [phone] Result Comment: Surg ica Pathology Report Case: [id number] Authorizing Provider: I Fei Vera MD Collected: 03/03/2022 01:26 PM Ordering Location: Admitting Received: 03/03/2022 05:31 PM Pathologist: Huong Cortez MD Specimens: A) - COLON POLYP, DESCENDING COLON POLYP B) - RECTAL POLYP Performed By: #### S ####[facility] LABCLIA [id number] [address] OF [facility] CLINICAL HISTORY Normal [facility] Comment on above: Order Comment: Speci men Type: TISSUE SPECIMENOrdering Facility: [facility] Address: [address] [address] Result Comment: Pre- op diagnosis: Rectal mass [K62.89] Performed By: #### S ####[facility] LABCLIA [id number] [address] FINAL DIAGNOSIS Normal [facility] Comment on above: Order Comment: Speci men Type: TISSUE SPECIMENOrdering Facility: [facility] Address: [address] [place] [address] Result Comment: A. C olon, descending polyp, polypectomy: - Fragments of tubular adenoma B. 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 - Low-grade dysplasia focally present at the peripheral mucosal margin. ES/HH 03/08/2022 Performed By: #### S ####[facility] LABCLIA [id number] [address] FINAL PERFORMING LAB Normal [facility] Comment on above: Order Comment: Speci men Type: TISSUE SPECIMENOrdering Facility: [facility] Address: [address] [address] Result Comment: Diag nostic interpretation performed at [facility], [address] [facility] [address] CLIA# [id number] Brick Pitcher: Johnny Rich M.D. Performed By: #### S ####[facility] LABCLIA [id number] [address] [place] GROSS DESCRIPTION A. COLON POLYP Normal [facility] Comment on above: Order Comment: Speci men Type: TISSUE SPECIMENOrdering Facility: [facility] Address: [address] [phone] Result Comment: Rece ived in formalin with the patient's name, medical record number, and descending colon polyp is a 2.5 x 0.3 x 0.2 cm aggregate of pascual soft tissue fragments. Submitted in A1 and A2. Gross examination performed at [facility], [facility] [place] [address] TTN 03/03/2022 9:21 PM B. RECTAL POLYP [...] margin, perpendicular sections Gross examination performed at [facility], [address] [id number] 03/04/22 4:00 PM Performed By: #### S ####[facility] LABIA [id number] [address] [place] CNPKaelyn 03-01-2022 CNPN Telephone ([facility]) ---- DIANELYS WOMACK ([id number]) 1950 F Date Time Provider Department 03/01/22 Gareth VERA During your visit today, we recorded the following information about you: Stephanie Ashwini [facility] 03/01/2022 4:19 PM Signed Dianelys Womack asked why she didn't get the flagyl and just the neomycin? Lety Quinones, RN 03/02/2022 9:23 AM Signed Called and [...] Date Reviewed: 02/24/2022 Reviewed by: Karson Monte APRN.PILOT CAPTAIN - Fully Assessed Reason for Visit: Head Of It - Other [4502] Prescriptions as of 03/02/2022 - neomycin 500 [...] Encounter Status:Closed by LETY QUINONES [facility]/02/22 [facility] DIANELYS WOMACK ([id number]) 1950 F Date Time Provider Department 03/01/22 Gareth VERA During your visit today, we recorded the following information about you: Cayden Alex [facility] 03/01/2022 11:53 AM Signed Dianelys Womack did not receive any information by mail. As discussed, please fax to Елена feliz [phone] Allergies As of Date: 03/01/2022 Noted Allergy Reaction CIPROFLOXACIN 10/05/2020 16 - Unknown Flagyl (METRONIDAZOLE) 08/04/2016 16 - Unknown LEVOFLOXACIN 03/10/2015 16 - Unknown PENICILLINS 03/10/2015 16 - Unknown 14 - Other: See Comments SEASONAL ALLERGIES 10/05/2020 16 - Unknown SOY 05/16/2015 16 - Unknown VANCOMYCIN 11/17/2021 16 - Unknown Date Reviewed: 02/24/2022 Reviewed by: Karson Monte APRN.PILOT CAPTAIN - Fully Assessed Reason for Visit: Patient [...] difficult intubation [Z91.89] 02/24/2022 Encounter Status:Closed [facility] 03/[facility]22 Normal [facility] Magdiel 02-28-2022 ALEXN Telephone (CORSMKaylah) ---- DIANELYS WOMACK ([id number]) 1950 F Date Time Provider Department 02/28/22 Gareth VERA During your visit today, we recorded the following information about you: Stephanie Ashwini [facility] 02/28/2022 9:27 AM Signed [phone] Dianelys Womack has questions about meds she [...] Date Reviewed: 02/24/2022 Reviewed by: Karson Monte APRN.PILOT CAPTAIN - Fully Assessed Reason for Visit: Head Of It - Other [9868] Prescriptions as of 02/28/2022 - neomycin 500 [...] Status:Closed by LETY QUINONES on 02/28/22 Normal [facility] CBC panel Auto (Bld)on 02-24 Erythrocyte distribution width (RBC) [Ratio] 14.6 % Normal 11.5-15.0 [facility] Comment on above: Order Comment: Speci men Type: BLOOD SPECIMENOrdering Facility: [facility] Address: [address] [place] [address] [place] [address] Performed By: #### 5 8410-2 ####[facility] LABIA [id number] [place] [address] [place] Hematocrit (Bld) [Volume fraction] 38.0 % Normal 36.0-46.0 [facility] Comment on above: Order Comment: Speci men Type: BLOOD SPECIMENOrdering Facility: [facility] Address: [address] [place] [address] Performed By: #### 5 8410-2 ####[facility] [id number] [place] [address] [place] Hemoglobin (Bld) [Mass/Vol] 12.1 g/dL Normal 11.5-15.5 [facility] Comment on above: Order Comment: Speci men Type: BLOOD SPECIMENOrdering Facility: [facility] Address: [address] [place] [address] Performed By: #### 5 8410-2 ####[facility] [id number] [address] [place] MCH (RBC) [Entitic mass] 26.7 pg Normal 26.0-34.0 [facility] Comment on above: Order Comment: Speci men Type: BLOOD SPECIMENOrdering Facility: [facility] Address: [address] [place] [address] Performed By: #### 5 8410-2 ####[facility] [id number] [place] [address] [place] MCHC (RBC) [Mass/Vol] 31.8 g/dL Normal 30.5-36.0 [facility] Comment on above: Order Comment: Speci men Type: BLOOD SPECIMENOrdering Facility: [facility] Address: [address] [place] [address] Performed By: #### 5 8410-2 ####[facility] [id number] [place] [address] [place] MCV (RBC) [Entitic vol] 83.7 fL Normal 80.0-100.0 C [facility] Comment on above: Order Comment: Speci men Type: BLOOD SPECIMENOrdering Facility: [facility] Address: [address] [place], [place] [address] Performed By: #### 5 8410-2 ####[facility] LABCLIA [id number] [place] [address] [place] Nucleated RBC (Bld) [#/Vol] 10*3/uL Normal <0.01 [facility] Comment on above: Order Comment: Speci men Type: BLOOD SPECIMENOrdering Facility: [facility] Address: [address] [place], [place] [address] Performed By: #### 5 8410-2 ####[facility] LABIA [id number] [place] [address] [place] Platelet mean volume (Bld) [Entitic vol] 10.6 fL Normal 9.0-12.7 [facility] Comment on above: Order Comment: Speci men Type: BLOOD SPECIMENOrdering Facility: [facility] Address: [address] [place], [place] [address] Performed By: #### 5 8410-2 ####[facility] LABIA [id number] [place] [address] [place] Platelets (Bld) [#/Vol] 161 10*3/uL Normal 150-400 [facility] Comment on above: Order Comment: Speci men Type: BLOOD SPECIMENOrdering Facility: [facility] Address: [address] [place], [place] [id number] Performed By: #### 5 8410-2 ####[facility] LABIA [id number] [place] [address] [place] RBC (Bld) [#/Vol] 4.54 10*6/uL Normal 3.90-5.20 [facility] Comment on above: Order Comment: Speci men Type: BLOOD SPECIMENOrdering Facility: [facility] Address: [address] [address] Performed By: #### 5 8410-2 ####[facility] [id number] [address] [place] WBC (Bld) [#/Vol] 6.18 10*3/uL Normal 3.70-11.00 [facility] Comment on above: Order Comment: Speci men Type: BLOOD SPECIMENOrdering Facility: [facility] Address: [address] [place] [address] Performed By: #### 5 8410-2 ####[facility] [id number] [address] CEA SerPl-mCncon 02-24-2022 Carcinoembryonic Ag [Mass/Vol] 1.3 ng/mL Normal <=2.9 [facility] Comment on above: Order Comment: Speci men Type: BLOOD SPECIMENOrdering Facility: [facility] Address: [address] [place] [address] Result Comment: Carc inoembryonic antigen test is used as an aid in monitoring response to treatment or recurrence in patients with established colorectal, breast, lung, prostatic, pancreatic, and ovarian carcinomas. Clinical correlation is required. The Carcinoembryonic antigen test was performed using the [employer] Unicel DXI paramagnetic particle chemiluminescent immunoassay method. Results obtained with different assay methods or kits cannot be used interchangeably. Performed By: #### 2 039-6 ####[facility] [id number] [address] [place] Magdiel 02-24-2022 JUAN DIEGO Telephone (PANTERA) ---- DIANELYS WOMACK ([id number]) 1950 F Date Time Provider Department 02/24/22 [...] Date Reviewed: 02/24/2022 Reviewed by: Karson Monte APRN.PILOT CAPTAIN - Fully Assessed Reason for Visit: Head Of It - Other [3602] Prescriptions as of 02/24/2022 [...] Encounter Status:Closed by LETY QUINONES on 02/24/22 [facility] Telephone (CORRAGHUN) ---- DIANELYS WOMACK ([id number]) 1950 F Date Time Provider Department 02/24/22 Gareth VERA During your visit today, we recorded the following information about you: Blaine Herring 02/24/2022 12:13 PM Signed The Patient is returning the nurses call back. Please call patient at [phone] Lety Quinones RN 02/24/2022 12:35 PM Signed Called and spoke with patient She accidentally left and missed pt ed appt Reviewed pt ed over the phone Medications sent to pharmacy Will send pt ed info to her via mail Patient guillaumeativ eof call Allergies As of Date: 02/24/2022 Noted Allergy Reaction CIPROFLOXACIN 10/05/2020 16 - Unknown Flagyl (METRONIDAZOLE) 08/04/2016 16 - Unknown LEVOFLOXACIN 03/10/2015 16 - Unknown PENICILLINS 03/10/2015 16 - Unknown 14 - Other: See Comments SEASONAL ALLERGIES 10/05/2020 16 - Unknown SOY 05/16/2015 16 - Unknown VANCOMYCIN 11/17/2021 16 - Unknown Date Reviewed: 02/24/2022 Reviewed by: Karson Monte APRN.PILOT CAPTAIN - Fully Assessed Reason for Visit: Returning [...] Status:Closed by BLAINE HERRING on 02/24/22 Normal [facility] CONFIRM BLOOD TYPEon 023 ABO O Normal [facility] Comment on above: Order Comment: Speci men Type: BLOOD SPECIMEN [facility] Address: [address] [place] [address] Performed By: #### C ONABO #### [facility] CLIA [id number] 9500 [place] [address] [place] Rh Nom (Bld) Positive Normal [facility] Comment on above: Order Comment: Speci men Type: BLOOD SPECIMEN [facility] Address: [address] [place] [address] Performed By: #### C ONABO #### [facility] CLIA [id number] [address] [place] [address] [place] Comprehensive metabolic 2000 panelon 02-24-2022 Albumin [Mass/Vol] 3.8 g/dL Low 3.9-4.9 [facility] Comment on above: Order Comment: Speci men Type: BLOOD SPECIMENOrdering Facility: [facility] Address: [address] [place] [address] Performed By: #### 2 4323-8 ####[facility] LABCLIA [id number] [place] [address] [place] ALP [Catalytic activity/Vol] 152 U/L High 34-123 [facility] Comment on above: Order Comment: Speci men Type: BLOOD SPECIMENOrdering Facility: [facility] Address: [address] Performed By: #### 2 4323-8 ####[facility] LABCLIA [id number] [address] [place] ALT [Catalytic activity/Vol] 17 U/L Normal 7-38 [facility] Comment on above: Order Comment: Speci men Type: BLOOD SPECIMENOrdering Facility: [facility] Address: [address] [address] Performed By: #### 2 4323-8 ####[facility] LABCLIA [id number] [place] [address] [place] Anion gap [Moles/Vol] 11 mmol/L Normal 9-18 [facility] Comment on above: Order Comment: Speci men Type: BLOOD SPECIMENOrdering Facility: [facility] Address: [address] [address] Performed By: #### 2 4323-8 ####[facility] LABCLIA [id number] [address] [place] AST [Catalytic activity/Vol] 30 U/L Normal 13-35 [facility] Comment on above: Order Comment: Speci men Type: BLOOD SPECIMENOrdering Facility: [facility] Address: [address] Performed By: #### 2 4323-8 ####[facility] LABCLIA [id number] [place] [address] [place] Bilirubin [Mass/Vol] 0.4 mg/dL Normal 0.2-1.3 [facility] Comment on above: Order Comment: Speci men Type: BLOOD SPECIMENOrdering Facility: [facility] Address: [address] Performed By: #### 2 4323-8 ####[facility] LABCLIA [id number] [place] [address] [place] Calcium [Mass/Vol] 10.0 mg/dL Normal 8.5-10.2 [facility] Comment on above: Order Comment: Speci men Type: BLOOD SPECIMENOrdering Facility: [facility] Address: [address] [place] [address] Performed By: #### 2 4323-8 ####[facility] LABCLIA [id number] [place] [address] [place] Chloride [Moles/Vol] 105 mmol/L Normal 97-105 [facility] Comment on above: Order Comment: Speci men Type: BLOOD SPECIMENOrdering Facility: [facility] Address: [address] [place] [address] Performed By: #### 2 4323-8 ####[facility] LABCLIA [id number] [place] [address] [place] CO2 [Moles/Vol] 22 mmol/L Normal 22-30 [facility] Comment on above: Order Comment: Speci men Type: BLOOD SPECIMENOrdering Facility: [facility] Address: [address] [place], [place] [address] Performed By: #### 2 4323-8 ####[facility] LABCLIA [id number] [place] [address] [place] Creatinine [Mass/Vol] 0.82 mg/dL Normal 0.58-0.96 [facility] Comment on above: Order Comment: Speci men Type: BLOOD SPECIMENOrdering Facility: [facility] Address: [address] [place], [place] [address] Performed By: #### 2 4323-8 ####[facility] LABCLIA [id number] [place] [address] [place] ESTIMATED GLOMERULAR FILTRATION RATE 76 mL/min/1.73m??? Normal >=60 [facility] Comment on above: Order Comment: Magnus montoya Type: BLOOD SPECIMENOrdering Facility: [facility] Address: [address] [address] Result Comment: Hortencia mated Glomerular Filtration Rate [...] actual GFR. Performed By: #### 2 4323-8 ####[facility] [id number] [place] [address] [place] Glucose [Mass/Vol] 98 mg/dL Normal 74-99 [facility] Comment on above: Order Comment: Magnus montoya Type: BLOOD SPECIMENOrdering Facility: [facility] Address: [address] [address] Result Comment: The [employer] Diabetes Association (ADA) provides guidance for cutoff [...] Standards of Medical Care in Diabetes 2016, [employer] [employer] Association. Diabetes Care. 2016.39(Suppl 1). Performed By: #### 2 4323-8 ####[facility] [id number] [place] [address] [place] Potassium [Moles/Vol] 4.5 mmol/L Normal 3.7-5.1 [facility] Comment on above: Order Comment: Magnus montoya Type: BLOOD SPECIMENOrdering Facility: [facility] Address: [address] [place] [address] Performed By: #### 2 4323-8 ####[facility] LABCLIA [id number] [place] [address] [place] Protein [Mass/Vol] 6.8 g/dL Normal 6.3-8.0 [facility] Comment on above: Order Comment: Speci men Type: BLOOD SPECIMENOrdering Facility: [facility] Address: [address] [address] Performed By: #### 2 4323-8 ####[facility] LABCLIA [id number] [place] [address] [place] Sodium [Moles/Vol] 138 mmol/L Normal 136-144 [facility] Comment on above: Order Comment: Speci men Type: BLOOD SPECIMENOrdering Facility: [facility] Address: [address] [place] [address] Performed By: #### 2 4323-8 ####[facility] LABCLIA [id number] [place] [address] [place] Urea nitrogen [Mass/Vol] 20 mg/dL Normal 7-21 [facility] Comment on above: Order Comment: Speci men Type: BLOOD SPECIMENOrdering Facility: [facility] Address: [address] [place] [address] Performed By: #### 2 4323-8 ####[facility] LABCLIA [id number] [place] [address] [place] ECG COMPLETEon 02-24-2022 ECG COMPLETE Ventricular Rate : 54 BPM Atrial Rate : 54 BPM P-R Interval : 172 ms QRS Duration : 96 ms Q-T Interval : 450 ms QTC Calculation(Bazett) : 426 ms Calculated P [place] : 59 degrees Calculated R [place] : -33 degrees Calculated T [place] : 48 degrees SINUS BRADYCARDIA LEFT AXIS DEVIATION ABNORMAL ECG Confirmed by JHON JO M.D. (67) on 03/01/2022 1:40:04 PM NAME : DIANELYS WOMACK PID : [id number] : 1950 Gender : Female Race : ORD : [id number] Procedure Date : Feb 24 2022 10:59:01 Edit Date : Mar 01 2022 13:43:37 Diagnosis: SINUS BRADYCARDIA LEFT AXIS DEVIATION ABNORMAL ECG Confirmed by JHON JO M.D. ([id number]) on 03/01/2022 1:40:04 PM Test Reason : Location : 119 : [facility] Overread By : JHON JO M.D. Edited By : JHON JO M.D. Referred By : Gareth VERA Acquired by : OBIMay [facility] HISTORY PHYSICALon HISTORY PHYSICAL HNO ID: [id number] Author: Karson Monte APRN.PILOT CAPTAIN Service: ? Author Type: Nurse Practitioner Type: [...] Never D (more content not included)... Normal [facility] TYPE AND SCREEN,30 DAYon ABO O Normal [facility] Comment on above: Order Comment: Speci men Type: BLOOD SPECIMEN [facility] Address: [address] [place] [address] Performed By: #### T SCR30 #### [facility] CLIA [id number] [address] [place] [address] [place] HISTORICAL AB SCR STATUS Negative Normal [facility] Comment on above: Order Comment: Speci men Type: BLOOD SPECIMEN [facility] Address: [address] [address] Performed By: #### T SCR30 #### [facility] CLIA [id number] [address] [place] [address] [place] Rh Nom (Bld) Positive Normal [facility] Comment on above: Order Comment: Speci men Type: BLOOD SPECIMEN [facility] Address: [address] [address] Performed By: #### T SCR30 #### [facility] CLIA [id number] [address] [id number] [place] [facility] CNOVon 01-12-2022 CNOV Office Visit (CORSCC) ---- DIANELYS WOMACK ([id number]) 1950 F Date Time Provider Department 01/12/22 9:30 AM Gareth VERA CORMTC During your visit today, we recorded the [...] loss of consciousness? Yes hx of stroke 2004 Do you have a neurologic condition like [...] Abdomen soft, (more content not included)... Normal [facility] HISTORY PHYSICALon HISTORY PHYSICAL HNO ID: [id number] Author: Gareth Vera MD Service: ? Author [...] loss of consciousness? 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 [facility] ---- VUDIANELYS P ([id number]) 1950 F Date Time Provider Department 12/24/21 TAZ TEJEDASD During your visit today, we recorded the [...] Encounter Status:Closed by TAZ TEJEDA on 12/24/21 [facility] ANES POSTPROC EVALon 022 ANES POSTPROC EVAL HNO ID: [id number] Author: Niko Hernandez MD Service: ? Author [...] Kapadia MD; Niko Hernandez MD; Colten Persaud APRN.LOUVER DOOR ASSEMBLER Responsible Provider: Niko Hernandez MD Anesthesia Type: [...] December 06, 2021 TIME: 5:29 PM CSN: [id number] Normal [facility] ANES PRE-OPon 12-06-2021 ANES PRE-OP HNO ID: [id number] Author: Niko Hernandez MD Service: ? Author Type: Anesthesiologist Type: Anesthesia Preprocedure Evaluation Filed: 12/06/2021 10:43 AM Note Text: ANESTHESIOLOGY DAY OF SURGERY NOTE : 1950 Procedure Information Date/Time: 12/06/21929 Scheduled providers: Kenton Kapadia MD; Debbi Guerin APRN.LOUVER DOOR ASSEMBLER; Niko Hernandez MD Procedures: COLONOSCOPY DIAGNOSTIC EGD [...] accident) (HCC) (+) History of anesthesia complications PULMONARY (-) Chronic obstructive pulmonary disease (COPD) (HCC) (-) Recent URI I - PHYSICAL EVALUATION [...] and consent discussed: yes. Patient / Responsible Green Party agrees to proceed: yes Patient / [...] December 06, 2021 TIME: 9:07 AM CSN: [id number] Normal [facility] COLONOSCOPY DIAGNOSTICon [facility] Colonoscopyon 12-06-2021 Colonoscopy Q3 Patient Name: Dianelys Womack Procedure Date: 12/06/2021 10:56 AM Date of : 1950 Admit Type: Outpatient Age: 70 Gender: Female Note Status: Finalized Attending MD: Kenton Kapadia MD Procedure: Colonoscopy Indications: Generalized abdominal pain Providers: Kentno Kapadia MD Patient Profile: This is a [...] was incomplete. Procedure Code(s): --- Professional --- 38824, 52, Colonoscopy, flexible; with biopsy, single or multiple Diagnosis Code(s): --- Professional --- D49.0, Neoplasm of unspecified behavior of digestive system R10.84, Generalized abdominal pain CPT copyright 2020 [employer]. All rights reserved. Attending Participation: I personally performed the entire procedure. Scope In: 11:25:59 AM Scope Out: 11:47:49 AM MD Kenton Rowe MD 12/06/2021 11:58:39 AM This report has been signed electronically by Kenton Kapadia MD Number of Addenda: 0 Note Initiated On: 12/06/2021 10:56 AM Normal [facility] EGD DIAGNOSTICon 12-06-2021 [facility] NURSING PROGon 12-06-2021 NURSING PROG HNO ID: [id number] Author: Anastasia Orlando RN Service: Nursing Author [...] Electronically Signed By: Anastasia Orlando RN Normal [facility] SURGICAL PATHOLOGYon CASE REPORT Normal [facility] Comment on above: Order Comment: Speci men Type: TISSUE SPECIMENOrdering Facility: [facility] Address: [address] [address] Result Comment: Surg ica Pathology Report Case: [id number] Authorizing Provider: Kenton Kapadia MD Collected: 12/06/2021 11:44 AM Ordering Location: Gastroenterology Received: 12/06/2021 03:33 PM Pathologist: Nathaniel Ford MD Specimen: RECTAL BIOPSY, rectal mass r/o CA Performed By: #### S ####[facility] LABCLIA [id number] [address] FINAL DIAGNOSIS Normal [facility] Comment on above: Order Comment: Speci men Type: TISSUE SPECIMENOrdering Facility: [facility] Address: [address] [place] [address] Result Comment: A. R ectum, mass, biopsy: - Superficial fragments of traditional serrated adenoma. Performed By: #### S ####[facility] LABCLIA [id number] [address] FINAL PERFORMING LAB Normal [facility] Comment on above: Order Comment: Speci men Type: TISSUE SPECIMENOrdering Facility: [facility] Address: [address] [place] [address] Result Comment: Diag nostic interpretation performed at [facility], [address] [place] [address] CLIA# [id number] Brick Pitcher: Johnny Rich M.D. Performed By: #### S ####[facility] LABIA [id number] [address] GROSS DESCRIPTION Normal [facility] Comment on above: Order Comment: Speci men Type: TISSUE SPECIMENOrdering Facility: [facility] Address: [address] [place] [address] Result Comment: A. R ECTAL BIOPSY Received in formalin are multiple pieces of pascual, soft tissue aggregating to 1.7 x 0.3 x 0.2 cm. Totally submitted in one cassette. Gross examination performed at [facility], [address] [place] [address] 12/06/2021 9:49 PM Performed By: #### S ####[facility] LABCLIA [id number] [address] [place] CNPKaelyn 11-29-2021 CNPN Telephone ([facility] ---- DIANELYS WOMACK ([id number]) 1950 F Date Time Provider Department 11/29/21 JESSICA GREEN During your visit today, we recorded the following information about you: Jessica Green RN 11/29/2021 12:49 PM Signed Attempted to reach the patient at the contact number that they provided [phone] (home). 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 construction representative they must have a responsible adult [...] -Number to call with questions or concerns [phone] Jessica Green RN BSN Allergies As of Date: 11/29/2021 (Not on File) Date Reviewed: Never Reviewed Reason for Visit: Appointment Confirmation [3505] Cmt: Pre-procedure instructions Problem List As Of Date: 11/29/2021 (None) Encounter Status:Closed by JESSICA GREEN on 11/29/21 Normal [facility] Albumin [Mass/volume] in Ser um or PlasmaOrdered By: Chucho Saldaña on 11-17-2021 Albumin [Mass/Vol] 3.6 g/dL 3.2-5.5 [facility] Automated erythrocytes count in urine sediment (number/area)Ordered By: Chucho Saldaña on 11-17-2021 RBC Auto (Urine sed) [#/Area] 0-1 [HPF] 0-4 [facility] Automated leukocytes count i n urine sediment (number/area)Ordered By: Chucho Saldaña on 11-17-2021 WBC Auto (Urine sed) [#/Area] 3-4 [HPF] 0-4 [facility] Basic Metabolic Panelon Anion gap [Moles/Vol] 15.1 mmol/L High 6.0-15.0 [facility] Comment on above: Performed By: #### C BC, LIPASE, BMP, HEPATIC #### [facility] [address] Calcium [Mass/Vol] 10.0 mg/dL Normal 8.2-10.2 [facility] Comment on above: Performed By: #### C BC, LIPASE, BMP, HEPATIC #### [facility] [address] Chloride [Moles/Vol] 103 mmol/L Normal 95-114 [facility] Comment on above: Performed By: #### C BC, LIPASE, BMP, HEPATIC #### [address] CO2 [Moles/Vol] 27.0 mmol/L Normal 22.0-30.0 [facility] Comment on above: Performed By: #### C BC, LIPASE, BMP, HEPATIC #### [address] Creatinine [Mass/Vol] 0.86 mg/dL Normal 0.44-1.03 [facility] Comment on above: Performed By: #### C BC, LIPASE, BMP, HEPATIC #### [address] Creatinine Clr Calc Pharmacy 58.14 [facility] Comment on above: Performed By: #### C BC, LIPASE, BMP, HEPATIC #### [address] Estimated GFR ( [place] > 60 [facility] Comment on above: Result Comment: GFR estimated reference range: According to KDOQI guidelines, <60 ml/min/1.73m2 is sufficient to diagnose a patient with chronic kidney disease. Performed By: #### C BC, LIPASE, BMP, HEPATIC #### [facility] [address] Estimated GFR (Non- Am > 60 Normal [facility] Comment on above: Performed By: #### C BC, LIPASE, BMP, HEPATIC #### [facility] [address] Glucose [Mass/Vol] 95 mg/dL Normal 70-100 [facility] Comment on above: Result Comment: [facility] Glucose Reference Range is dependent on time and content of last meal. Glucose of more than 200 mg/dL in a nonstressed, ambulatory subject supports the diagnosis of Diabetes Mellitus. ADA recommended reference range Performed By: #### C BC, LIPASE, BMP, HEPATIC #### [facility] [address] Potassium [Moles/Vol] 3.1 mmol/L Low 3.5-5.1 [facility] Comment on above: Performed By: #### C BC, LIPASE, BMP, HEPATIC #### [address] Sodium [Moles/Vol] 142 mmol/L Normal 136-146 [facility] Comment on above: Performed By: #### C BC, LIPASE, BMP, HEPATIC #### [address] Urea nitrogen [Mass/Vol] 9 mg/dL Normal 9-23 [facility] Comment on above: Performed By: #### C BC, LIPASE, BMP, HEPATIC #### [address] Basophils Auto (Bld) [#/Vol] Ordered By: Chucho Saldaña on 11-17-2021 Basophils (Bld) [#/Vol] 0.0 10*3/uL 0.0-0.2 [facility] Basophils/100 WBC Auto (Bld) Ordered By: Chucho Saldaña on 11-17-2021 Basophils/100 WBC (Bld) 0.6 % . [facility] Bilirubin Test strip Ql (U)O rdered By: Chucho Saldaña on 11-17-2021 Bilirubin Ql (U) Negative Negative [facility] Blood hemoglobin measurement (mass/volume)Ordered By: Chucho Saldaña on 11-17-2021 Hemoglobin (Bld) [Mass/Vol] 13.4 g/dL 11.8-15.4 [facility] Blood leukocytes automated c ount (number/volume)Ordered By: Chucho Saldaña on 11-17-2021 WBC (Bld) [#/Vol] 6.4 10*3/uL 4.5-11.0 [facility] CT abdomen pelvis wo conon 1 CT abdomen pelvis wo con [facility] [employer] [address] [place] [address] CT Scan Report Signed Patient: Dianelys Womack MR#: [id number] : 1950 Acct:[id number] Age/Sex: 70 / F ADM Date: 11/17/21 Loc: ER Room: Type: [facility] ER Attending Dr: Copies to: Chucho Saldaña MD Ordering Provider: Chucho Saldaña MD Date of Service: 11/17/21 CT/CT abdomen pelvis wo con: [facility] CT abdomen and pelvis withoutcontrast [...] Nick Gimenez M.D.11/17/2021 12:37 PM Dictation Location: [place] [address] Transcribed By: AMINA 11/17/21 1237 Dictated By: Nick Gimenez DO 11/17/21 1227 Signed By: 11/17/21 1237 Normal [facility] Color Auto (U)Ordered By: Swathi Saldaña on 11-17-2021 Color (U) Yellow Yellow [facility] Complete Blood Count Auto Di ffon 11-17-2021 Basophils (Bld) [#/Vol] 0.0 10*3/uL Normal 0.0-0.2 [facility] Comment on above: Result Comment: PERF ORMED BY: [place] [address] PATHOLOGIST MERCHANDISING PROFESSOR LISA VERDE M.D. Performed By: #### C BC, LIPASE, BMP, HEPATIC #### [address] Basophils/100 WBC (Bld) 0.6 % Normal . [facility] Comment on above: Performed By: #### C BC, LIPASE, BMP, HEPATIC #### [address] Eosinophils (Bld) [#/Vol] 0.0 10*3/uL Normal 0.0-0.45 [facility] Comment on above: Performed By: #### C BC, LIPASE, BMP, HEPATIC #### [address] Eosinophils/100 WBC (Bld) 0.8 % Normal . [facility] Comment on above: Performed By: #### C BC, LIPASE, BMP, HEPATIC #### [address] Erythrocyte distribution width (RBC) [Ratio] 15.8 % High 11.9-15.3 [facility] Comment on above: Performed By: #### C BC, LIPASE, BMP, HEPATIC #### [address] Hematocrit (Bld) [Volume fraction] 41.7 % Normal 34.0-46.4 [facility] Comment on above: Performed By: #### C BC, LIPASE, BMP, HEPATIC #### [address] Hemoglobin (Bld) [Mass/Vol] 13.4 g/dL Normal 11.8-15.4 [facility] Comment on above: Performed By: #### C BC, LIPASE, BMP, HEPATIC #### [address] Lymphocytes (Bld) [#/Vol] 0.9 10*3/uL Low 1.00-4.8 [facility] Comment on above: Performed By: #### C BC, LIPASE, BMP, HEPATIC #### [address] Lymphocytes/100 WBC (Bld) 14.4 % Normal . [facility] Comment on above: Performed By: #### C BC, LIPASE, BMP, HEPATIC #### [address] MCH (RBC) [Entitic mass] 27.3 pg Normal 24.7-34.3 [facility] Comment on above: Performed By: #### C BC, LIPASE, BMP, HEPATIC #### [address] MCV (RBC) [Entitic vol] 84.9 fL Normal 80-100 [facility] Comment on above: Performed By: #### C BC, LIPASE, BMP, HEPATIC #### [address] Mean Corpuscular HGB Conc 32.2 g/dL Normal 32.0-35.0 [facility] Comment on above: Performed By: #### C BC, LIPASE, BMP, HEPATIC #### [facility] [address] [place] [address] [place] Monocytes (Bld) [#/Vol] 0.4 10*3/uL Normal 0.0-0.8 [facility] Comment on above: Performed By: #### C BC, LIPASE, BMP, HEPATIC #### [facility] [address] [place] [address] [place] Monocytes/100 WBC (Bld) 7.0 % Normal . [facility] Comment on above: Performed By: #### C BC, LIPASE, BMP, HEPATIC #### [facility] [address] Neutrophils (Bld) [#/Vol] 5.0 10*3/uL Normal 1.8-7.7 [facility] Comment on above: Performed By: #### C BC, LIPASE, BMP, HEPATIC #### [facility] [address] [place] [address] Neutrophils/100 WBC (Bld) 77.2 % Normal . [facility] Comment on above: Performed By: #### C BC, LIPASE, BMP, HEPATIC #### [facility] [address] [place] [address] [place] Nucleated RBC/100 WBC (Bld) [Ratio] 0.0 % Normal 0-0.5 [facility] Comment on above: Performed By: #### C BC, LIPASE, BMP, HEPATIC #### [facility] [address] [place] [address] [place] Platelet mean volume (Bld) [Entitic vol] 8.3 fL Normal 6.3-10.7 [facility] Comment on above: Performed By: #### C BC, LIPASE, BMP, HEPATIC #### [facility] [address] [place] [address] [place] Platelets (Bld) [#/Vol] 203 10*3/uL Normal 150-450 [facility] Comment on above: Performed By: #### C BC, LIPASE, BMP, HEPATIC #### [facility] [address] [place] [address] [place] RBC (Bld) [#/Vol] 4.91 10*6/uL Normal 3.60-5.00 [facility] Comment on above: Performed By: #### C BC, LIPASE, BMP, HEPATIC #### [facility] [address] WBC (Bld) [#/Vol] 6.4 10*3/uL Normal 4.5-11.0 [facility] Comment on above: Performed By: #### C BC, LIPASE, BMP, HEPATIC #### [facility] [address] Creatinine and Glomerular fi ltration rate.predicted panel (S/P/Bld)Ordered By: Chucho Saldaña on 11-17-2021 Creatinine [Mass/Vol] 0.86 mg/dL 0.44-1.03 [facility] Dipstick and Microscopicon 1 Appearance (U) Clear Normal Clear [facility] Comment on above: Order Comment: Name Collection Type:: Clean-Voided Midstream Performed By: #### A DDONUAPLUS #### [place] [address] [place] Bacteria,Urine None Seen Normal None Seen [facility] Comment on above: Order Comment: Name Collection Type:: Clean-Voided Midstream Performed By: #### A DDONUAPLUS #### [facility] [address] [place] [address] [place] Bilirubin,Urine Negative Normal Negative [facility] Comment on above: Order Comment: Name Collection Type:: Clean-Voided Midstream Performed By: #### A DDONUAPLUS #### [facility] [address] [place] [address] [place] Color (U) Yellow Normal Yellow [facility] Comment on above: Order Comment: Name Collection Type:: Clean-Voided Midstream Performed By: #### A DDONUAPLUS #### [facility] [address] [place] [address] [place] Glucose Ql (U) Normal Normal Normal [facility] Comment on above: Order Comment: Name Collection Type:: Clean-Voided Midstream Performed By: #### A DDONUAPLUS #### [facility] [address] [place] [address] [place] Hyaline Casts,Urine 0-8 Normal 0-8 [facility] Comment on above: Order Comment: Name Collection Type:: Clean-Voided Midstream Result Comment: PERF ORMED BY: [place] [address] PATHOLOGIST MERCHANDISING PROFESSOR LISA VERDE M.D. Performed By: #### A DDONUAPLUS #### [address] Ketones Ql (U) Trace High Negative [facility] Comment on above: Order Comment: Name Collection Type:: Clean-Voided Midstream Performed By: #### A DDONUAPLUS #### [address] Leukocyte esterase Test strip Ql (U) 1+ High Negative [facility] Comment on above: Order Comment: Name Collection Type:: Clean-Voided Midstream Performed By: #### A DDONUAPLUS #### [place] [address] [place] Nitrite,Urine Negative Normal Negative [facility] Comment on above: Order Comment: Name Collection Type:: Clean-Voided Midstream Performed By: #### A DDONUAPLUS #### [place] [address] [place] Occult Blood,Urine Trace High Negative [facility] Comment on above: Order Comment: Name Collection Type:: Clean-Voided Midstream Result Comment: PERF ORMED BY: [place] [address] PATHOLOGIST MERCHANDISING PROFESSOR LISA VERDE M.D. Performed By: #### A DDONUAPLUS #### [place] [address] [place] pH (U) 7.5 [pH] Normal 5.0-9.0 [facility] Comment on above: Order Comment: Name Collection Type:: Clean-Voided Midstream Performed By: #### A DDONUAPLUS #### [address] Protein,Urine Trace High Negative [facility] Comment on above: Order Comment: Name Collection Type:: Clean-Voided Midstream Performed By: #### A DDONUAPLUS #### [address] RBC LM.HPF (Urine sed) [#/Area] 0 /[HPF] Normal 0-4 [facility] Comment on above: Order Comment: Name Collection Type:: Clean-Voided Midstream Performed By: #### A DDONUAPLUS #### [address] Specificy Mccleary,Urine 1.013 Normal 1.001-1.030 [facility] Comment on above: Order Comment: Name Collection Type:: Clean-Voided Midstream Performed By: #### A DDONUAPLUS #### [address] Squamous Epithelial Cell,Urine 0-1 Normal 0-2 [facility] Comment on above: Order Comment: Name Collection Type:: Clean-Voided Midstream Performed By: #### A DDONUAPLUS #### [address] Urobilinogen,Urine Normal Normal Normal [facility] Comment on above: Order Comment: Name Collection Type:: Clean-Voided Midstream Performed By: #### A DDONUAPLUS #### [place] [address] [place] WBC,Urine 3-4 Normal 0-4 [facility] Comment on above: Order Comment: Name Collection Type:: Clean-Voided Midstream Performed By: #### A DDONUAPLUS #### [address] Direct bilirubin measurement Ordered By: Chucho Saldaña on 11-17-2021 Bilirubin.direct [Mass/Vol] 0.1 mg/dL 0.0-0.4 [facility] Eosinophils Auto (Bld) [#/Vo l]Ordered By: Chucho Saldaña on 11-17-2021 Eosinophils (Bld) [#/Vol] 0.0 10*3/uL 0.0-0.45 [facility] Eosinophils/100 WBC Auto (Bl d)Ordered By: Chucho Saldaña on 11-17-2021 Eosinophils/100 WBC (Bld) 0.8 % . [facility] Erythrocyte distribution wid th Auto (RBC) [Ratio]Ordered By: Chucho Saldaña on 11-17-2021 Erythrocyte distribution width (RBC) [Ratio] 15.8 % 11.9-15.3 [facility] Estimated glomerular filtrat ion rate (GFR) non- AmericanOrdered By: Chucho Saldaña on 11-17-2021 GFR/1.73 sq M.predicted among non-blacks MDRD (S/P/Bld) [Vol rate/Area] > 60 mL/Min [facility] Globulin Calc (S) [Mass/Vol] Ordered By: Chucho Saldaña on 11-17-2021 Globulin (S) [Mass/Vol] 3.6 g/dL [facility] Hematocrit Auto (Bld) [Volum e fraction]Ordered By: Chucho Saldaña on 11-17-2021 Hematocrit (Bld) [Volume fraction] 41.7 % 34.0-46.4 [facility] Hepatic Panelon 11-17-2021 Albumin [Mass/Vol] 3.6 g/dL Normal 3.2-5.5 [facility] Comment on above: Performed By: #### C BC, LIPASE, BMP, HEPATIC #### [facility] [address] Albumin/Globulin [Mass ratio] 1.0 {ratio} Normal [facility] Comment on above: Performed By: #### C BC, LIPASE, BMP, HEPATIC #### [facility] [address] [place] [id number] [place] ALP [Catalytic activity/Vol] 121 U/L High 32-92 [facility] Comment on above: Performed By: #### C BC, LIPASE, BMP, HEPATIC #### [facility] [address] [place] [id number] [place] ALT [Catalytic activity/Vol] 25 U/L Normal 10-60 [facility] Comment on above: Performed By: #### C BC, LIPASE, BMP, HEPATIC #### [facility] [address] AST [Catalytic activity/Vol] 34 U/L Normal 10-42 [facility] Comment on above: Performed By: #### C BC, LIPASE, BMP, HEPATIC #### [facility] [address] Bilirubin [Mass/Vol] 0.7 mg/dL Normal 0.3-1.2 [facility] Comment on above: Performed By: #### C BC, LIPASE, BMP, HEPATIC #### [facility] [address] Bilirubin,Indirect 0.6 mg/dL Normal [facility] Comment on above: Performed By: #### C BC, LIPASE, BMP, HEPATIC #### [facility] [address] Bilirubin.indirect [Mass/Vol] 0.1 mg/dL Normal 0.0-0.4 [facility] Comment on above: Performed By: #### C BC, LIPASE, BMP, HEPATIC #### [facility] [address] Globulin (S) [Mass/Vol] 3.6 g/dL Normal [facility] Comment on above: Performed By: #### C BC, LIPASE, BMP, HEPATIC #### [facility] [address] Protein [Mass/Vol] 7.2 g/dL Normal 6.1-7.9 [facility] Comment on above: Performed By: #### C BC, LIPASE, BMP, HEPATIC #### [facility] [address] Ketones Auto test strip (U) [Mass/Vol]Ordered By: Chucho Saldaña on 11-17-2021 Ketones (U) [Mass/Vol] Trace Negative [facility] - Chemistry and C hemistry - challengeOrdered By: Chucho Saldaña on 11-17-2021 Lipase [Catalytic activity/Vol] 26.0 U/L 22-51 [facility] - Hematology and Cell countsOrdered By: Chucho Saldaña on 11-17-2021 Nucleated RBC/100 WBC (Bld) [Ratio] 0.0 % 0-0.5 [facility] - UrinalysisOrder ed By: Chucho Saldaña on 11-17-2021 Hyaline casts LM Ql (Urine sed) 0-8 [LPF] 0-8 [facility] Lipaseon 11-17-2021 Lipase [Catalytic activity/Vol] 26.0 U/L Normal 22-51 [facility] Comment on above: Result Comment: PERF ORMED BY: [facility] [address] [place] [address] PATHOLOGIST MERCHANDISING PROFESSOR LISA VERDE M.D. Performed By: #### C BC, LIPASE, BMP, HEPATIC #### [facility] [address] Lymphocytes Auto (Bld) [#/Vo l]Ordered By: Chucho Saldaña on 11-17-2021 Lymphocytes (Bld) [#/Vol] 0.9 10*3/uL 1.00-4.8 [facility] Lymphocytes/100 WBC Auto (Bl d)Ordered By: Chucho Saldaña on 11-17-2021 Lymphocytes/100 WBC (Bld) 14.4 % . [facility] MCH Auto (RBC) [Entitic mass ]Ordered By: Chucho Saldaña on 11-17-2021 MCH (RBC) [Entitic mass] 27.3 pg 24.7-34.3 [facility] MCHC Auto (RBC) [Mass/Vol]Or dered By: Chucho Saldaña on 11-17-2021 MCHC (RBC) [Mass/Vol] 32.2 g/dL 32.0-35.0 [facility] MCV Auto (RBC) [Entitic vol] Ordered By: Chucho Saldaña on 11-17-2021 MCV (RBC) [Entitic vol] 84.9 fL 80-100 [facility] Monocytes Auto (Bld) [#/Vol] Ordered By: Chucho Saldaña on 11-17-2021 Monocytes (Bld) [#/Vol] 0.4 10*3/uL 0.0-0.8 [facility] Monocytes/100 WBC Auto (Bld) Ordered By: Chucho Saldaña on 11-17-2021 Monocytes/100 WBC (Bld) 7.0 % . [facility] Neutrophils Auto (Bld) [#/Vo l]Ordered By: Chucho Saldaña on 11-17-2021 Neutrophils (Bld) [#/Vol] 5.0 10*3/uL 1.8-7.7 [facility] Neutrophils/100 WBC Auto (Bl d)Ordered By: Chucho Saldaña on 11-17-2021 Neutrophils/100 WBC (Bld) 77.2 % . [facility] Nitrite Test strip Ql (U)Ord ered By: Chucho Saldaña on 11-17-2021 Nitrite Ql (U) Negative Negative [facility] No Panel InformationOrdered By: Chucho Saldaña on 11-17-2021 Estimated GFR () > 60 mL/Min [facility] Comment on above: GFR estimated refere nce range: According to KDOQI guidelines, <60 ml/min/1.73m2 is sufficient to diagnose a patient with chronic kidney disease. Pharmacy Creatinine Clearance (Chem 58.14 [facility] Platelet mean volume Auto (B ld) [Entitic vol]Ordered By: Chucho Saldaña on 11-17-2021 Platelet mean volume (Bld) [Entitic vol] 8.3 fL 6.3-10.7 [facility] Platelets Auto (Bld) [#/Vol] Ordered By: Chucho Saldaña on 11-17-2021 Platelets (Bld) [#/Vol] 203 10*3/uL 150-450 [facility] Protein Auto test strip (U) [Mass/Vol]Ordered By: Chucho Saldaña on 11-17-2021 Protein (U) [Mass/Vol] Trace mg/dL Negative [facility] Protein [Mass/volume] in Ser um or PlasmaOrdered By: Chucho Saldaña on 11-17-2021 Protein [Mass/Vol] 7.2 g/dL 6.1-7.9 [facility] RBC Auto (Bld) [#/Vol]Ordere d By: Chucho Saldaña on 11-17-2021 RBC (Bld) [#/Vol] 4.91 10*6/uL 3.60-5.00 [facility] Serum or plasma alanine harris otransferase measurement without P-5'-P (enzymatic activiOrdered By: Chucho Saldaña on 11-17-2021 ALT No additional P-5'-P [Catalytic activity/Vol] 25 U/L 10-60 [facility] Serum or plasma albumin/glob ulin mass ratioOrdered By: Chucho Saldaña on 11-17-2021 Albumin/Globulin [Mass ratio] 1.0 {ratio} [facility] Serum or plasma alkaline suzanne sphatase measurement (enzymatic activity/volume)Ordered By: Chucho Saldaña on 11-17-2021 ALP [Catalytic activity/Vol] 121 U/L 32-92 [facility] Serum or plasma anion gap de terminationOrdered By: Chucho Saldaña on 11-17-2021 Anion gap [Moles/Vol] 15.1 mmol/L 6.0-15.0 [facility] Serum or plasma aspartate am inotransferase measurement (enzymatic activity/volume)Ordered By: Chucho Saldaña on 11-17-2021 AST [Catalytic activity/Vol] 34 U/L 10- [facility] Serum or plasma calcium jannet urement (mass/volume)Ordered By: Chucho Saldaña on 11-17-2021 Calcium [Mass/Vol] 10.0 mg/dL 8.2-10.2 [facility] Serum or plasma chloride yair surement (moles/volume)Ordered By: Chucho Saldaña on 11-17-2021 Chloride [Moles/Vol] 103 mmol/L 95-114 [facility] Serum or plasma glucose jannet urement (mass/volume)Ordered By: Chucho Saldaña on 11-17-2021 Glucose [Mass/Vol] 95 mg/dL 70-100 [facility] Comment on above: ADA recommended refe rence rangeRandom Glucose Reference Range is dependent on time and content of last meal. Glucose of more than 200 mg/dL in a nonstressed, ambulatory subject supports the diagnosis of Diabetes Mellitus. Serum or plasma non-glucuron idated bilirubin measurement (mass/volume)Ordered By: Chucho Saldaña on 11-17-2021 Bilirubin.indirect [Mass/Vol] 0.6 mg/dL [facility] Serum or plasma potassium me asurement (moles/volume)Ordered By: Chucho Saldaña on 11-17-2021 Potassium [Moles/Vol] 3.1 mmol/L 3.5-5.1 [facility] Serum or plasma sodium measu rement (moles/volume)Ordered By: Chucho Saldaña on 11-17-2021 Sodium [Moles/Vol] 142 mmol/L 136-146 [facility] Serum or plasma total biliru bin measurement (mass/volume)Ordered By: Chucho Saldaña on 11-17-2021 Bilirubin [Mass/Vol] 0.7 mg/dL 0.3-1.2 [facility] Serum or plasma total carbon dioxide measurement (moles/volume)Ordered By: Chuhco Saldaña on 11-17-2021 CO2 [Moles/Vol] 27.0 mmol/L 22.0-30.0 [facility] Serum or plasma urea nitroge n measurement (mass/volume)Ordered By: Chucho Saldaña on 11-17-2021 Urea nitrogen [Mass/Vol] 9 mg/dL 9-23 [facility] Specific gravity Auto test s trip (U) [Rel density]Ordered By: Chucho Saldaña on 11-17-2021 Specific gravity (U) [Rel density] 1.013 1.001-1.030 [facility] Squamous epithelial cells de tection in urine sediment by light microscopyOrdered By: Chucho Saldaña on 11-17-2021 Epithelial cells.squamous LM Ql (Urine sed) 0-1 [HPF] 0-2 [facility] Urine bacteria detection by automated methodOrdered By: Chucho Saldaña on 11-17-2021 Bacteria Auto Ql (U) None seen None Seen [facility] Urine clarity by refractomet ry automatedOrdered By: Chucho Saldaña on 11-17-2021 Clarity Refractometry automated (U) Clear Clear [facility] Urine glucose measurement by automated test strip (mass/volume)Ordered By: Chucho Saldaña on 11-17-2021 Glucose Auto test strip (U) [Mass/Vol] Normal mg/dL Normal [facility] Urine hemoglobin detection b y automated test stripOrdered By: Chucho Saldaña on 11-17-2021 Hemoglobin Auto test strip Ql (U) Trace Negative [facility] Urine leukocyte esterase det ection by automated test stripOrdered By: Chucho Saldaña on 11-17-2021 Leukocyte esterase Auto test strip Ql (U) 1+ Negative [facility] Urobilinogen Auto test strip (U) [Mass/Vol]Ordered By: Chucho Saldaña on 11-17-2021 Urobilinogen (U) [Mass/Vol] Normal mg/dL Normal [facility] pH Auto test strip (U)Ordere d By: Chucho Saldaña on 11-17-2021 pH (U) 7.5 [pH] 5.0-9.0 [facility] CNPNon 11-03-2021 CNPN Telephone (GASTMN) ---- DIANELYS WOMACK ([id number]) 1950 F Date Time Provider Department 11/03/21 TAZ TEJEDA GASTSD During your visit today, we recorded the following information about you: Joan Acevedo SUPV 11/03/2021 3:[address] new egd/colonoscopy w MAC orders to be scheduled at Q3 Please contact patient's daughter(Shy) to schedule. Keiko Hernandez RN 11/04/2021 9:51 AM Signed [...] [R19.7] Order(s):COLONOSCOP Y DIAGNOSTIC [GI11] Order #: [id number] FUTURE EGD DIAGNOSTIC [GI9] Order #: [id number] FUTURE Problem List As Of Date: 11/03/2021 (None) Encounter Status:Closed by TAZ TEJEDA on 11/05/21 Normal [facility] C diff Tox gens Stl Ql VERONICA+p robeon 10-31-2021 C. difficile toxin genes VERONICA+probe Ql (Stl) Negative Normal Negative for C. difficile toxin by PCR [facility] Comment on above: Order Comment: Speci men Type: STOOL SPECIMENOrdering Facility: [facility] Address: [address] [place] [address] Performed By: #### 5 4067-4 ####[facility] LABCLIA [id number] [place] [address] [place] Calprotectin Stl-mCnton 10-14 Calprotectin (Stl) [Mass/Mass] 205.7 mg/kg High 0-50 [facility] Comment on above: Order Comment: Speci men Type: STOOL SPECIMENOrdering Facility: [facility] Address: [address] [place] [address] Result Comment: INTE RPRETIVE INFORMATION: Calprotectin, Fecal <50.0 mg/kg : Normal 50.0-120.0 mg/kg: Borderline. Test should be re-evaluated in 4-6 wks. >120.0 mg/kg: Abnormal Performed By: #### 3 8445-3 ####[facility] LABCLIA [id number] [place] [address] [place] CBC panel Auto (Bld)on 10-29 Erythrocyte distribution width (RBC) [Ratio] 15.2 % High 11.5-15.0 [facility] Comment on above: Order Comment: Speci men Type: BLOOD SPECIMENOrdering Facility: [facility] Address: [address] [place] [address] Performed By: #### 5 8410-2 ####[facility] LABCLIA [id number] [place] [address] Hematocrit (Bld) [Volume fraction] 42.2 % Normal 36.0-46.0 [facility] Comment on above: Order Comment: Speci men Type: BLOOD SPECIMENOrdering Facility: [facility] Address: [address] [place] [address] Performed By: #### 5 8410-2 ####[facility] LABCLIA [id number] [place] [address] Hemoglobin (Bld) [Mass/Vol] 13.2 g/dL Normal 11.5-15.5 [facility] Comment on above: Order Comment: Speci men Type: BLOOD SPECIMENOrdering Facility: [facility] Address: [address] [place] [address] Performed By: #### 5 8410-2 ####[facility] LABCLIA [id number] [place] [address] MCH (RBC) [Entitic mass] 27.2 pg Normal 26.0-34.0 [facility] Comment on above: Order Comment: Speci men Type: BLOOD SPECIMENOrdering Facility: [facility] Address: [address] [place] [address] Performed By: #### 5 8410-2 ####[facility] LABIA [id number] [place] [address] MCHC (RBC) [Mass/Vol] 31.3 g/dL Normal 30.5-36.0 [facility] Comment on above: Order Comment: Speci men Type: BLOOD SPECIMENOrdering Facility: [facility] Address: [address] [place] [address] Performed By: #### 5 8410-2 ####[facility] LABCLIA [id number] [place] [address] MCV (RBC) [Entitic vol] 86.8 fL Normal 80.0-100.0 [facility] Comment on above: Order Comment: Speci men Type: BLOOD SPECIMENOrdering Facility: [facility] Address: [address] [place] [address] Performed By: #### 5 8410-2 ####[facility] LABCLIA [id number] [place] [address] Nucleated RBC (Bld) [#/Vol] 10*3/uL Normal <0.01 [facility] Comment on above: Order Comment: Speci men Type: BLOOD SPECIMENOrdering Facility: [facility] Address: [address] [place] [address] Performed By: #### 5 8410-2 ####[facility] LABCLIA [id number] [place] [address] Platelet mean volume (Bld) [Entitic vol] 10.0 fL Normal 9.0-12.7 [facility] Comment on above: Order Comment: Speci men Type: BLOOD SPECIMENOrdering Facility: [facility] Address: [address] [place] [address] Performed By: #### 5 8410-2 ####[facility] LABCLIA [id number] [place] [address] Platelets (Bld) [#/Vol] 187 10*3/uL Normal 150-400 [facility] Comment on above: Order Comment: Speci men Type: BLOOD SPECIMENOrdering Facility: [facility] Address: [address] [place] [address] Performed By: #### 5 8410-2 ####[facility] LABCLIA [id number] [place] [address] RBC (Bld) [#/Vol] 4.86 10*6/uL Normal 3.90-5.20 [facility] Comment on above: Order Comment: Speci men Type: BLOOD SPECIMENOrdering Facility: [facility] Address: [address] [place] [address] Performed By: #### 5 8410-2 ####[facility] LABCLIA [id number] [place] [address] WBC (Bld) [#/Vol] 8.51 10*3/uL Normal 3.70-11.00 [facility] Comment on above: Order Comment: Speci men Type: BLOOD SPECIMENOrdering Facility: [facility] Address: [address] [place] [address] Performed By: #### 5 8410-2 ####[facility] LABCLIA [id number] [place] [id number] CELIAC SCREENon 10-29-2021 GLIAD DEAMIDATED IGA QUAL Negative Normal Negative, Test not Indicated [facility] Comment on above: Order Comment: Speci men Type: BLOOD SPECIMENOrdering Facility: [facility] Address: [address] [place] [address] Result Comment: This is used as an aid in diagnosis of celiac disease. Clinical correlation is required. The following results were obtained with an [email or web address] Lite Gliadin IgA BRIANA Gliadin. Gliadin IgA values obtained with different manufacturers' assay methods may not be used interchangeably. The magnitude of the reported IgA levels cannot be correlated to an endpoint titer. Performed By: #### L [id number] ####[facility] LABCLIA [id number] [address] [place] Gliadin peptide IgA Qn (S) 4 Units Normal <20 [facility] Comment on above: Order Comment: Magnus montoya Type: BLOOD SPECIMENOrdering Facility: [facility] Address: [address] [place] [address] Performed By: #### L [id number] ####[facility] LABCLIA [id number] [address] [place] INTERPRETATION No serological evidence of celiac disease, however, if celiac disease is clinically suspected and patient is not on gluten-free diet, histological diagnosis may be considered. HLA testing may help with risk assessment. Normal [facility] Comment on above: Order Comment: Magnus montoya Type: BLOOD SPECIMENOrdering Facility: [facility] Address: [address] [place] [address] Performed By: #### L [id number] ####[facility] LABCLIA [id number] [address] [place] TRANSGLUTAMINASE IGA QUAL Negative Normal Negative, Test not Indicated [facility] Comment on above: Order Comment: Speci lindsay Type: BLOOD SPECIMENOrdering Facility: [facility] Address: [address] [place] [address] Result Comment: The following results were obtained with the [employer] Lite h-tTG IgA BRIANA. h-tTG IgA values obtained with different manufacturers' assay methods may not be used interchangeable. The magnitude of the reported IgA levels cannot be correlated to an endpoint titer. This is used as an aid in diagnosis of celiac disease. Clinical correlation is required. Performed By: #### L [id number] ####[facility] LABCLIA [id number] [address] [place] tTG IgA Qn (S) 8 Units Normal <20 [facility] Comment on above: Order Comment: Speci lindsay Type: BLOOD SPECIMENOrdering Facility: [facility] Address: [address] [place] [address] Performed By: #### L [id number] ####[facility] LABCLIA [id number] [place] [address] [place] Comprehensive metabolic 2000 panelon 10-29-2021 Albumin [Mass/Vol] 4.0 g/dL Normal 3.9-4.9 [facility] Comment on above: Order Comment: Speci men Type: BLOOD SPECIMENOrdering Facility: [facility] Address: [address] [place], [place] [id number] Performed By: #### 2 4323-8 ####[facility] LABCLIA [id number] [place] [address] ALP [Catalytic activity/Vol] 124 U/L High 34-123 [facility] Comment on above: Order Comment: Jocelyni lindsay Type: BLOOD SPECIMENOrdering Facility: [facility] Address: [address] [place] [address] Performed By: #### 2 4323-8 ####[facility] LABCLIA [id number] [place] [address] ALT [Catalytic activity/Vol] 23 U/L Normal 7-38 [facility] Comment on above: Order Comment: Speci men Type: BLOOD SPECIMENOrdering Facility: [facility] Address: [address] [place] [address] Performed By: #### 2 4323-8 ####[facility] LABCLIA [id number] [place] [address] Anion gap [Moles/Vol] 9 mmol/L Normal 9-18 [facility] Comment on above: Order Comment: Speci men Type: BLOOD SPECIMENOrdering Facility: [facility] Address: [address] [place] [address] Performed By: #### 2 4323-8 ####[facility] LABCLIA [id number] [place] [address] AST [Catalytic activity/Vol] 37 U/L High 13-35 [facility] Comment on above: Order Comment: Speci men Type: BLOOD SPECIMENOrdering Facility: [facility] Address: [address] [place] [address] Performed By: #### 2 4323-8 ####[facility] LABCLIA [id number] [place] [address] Bilirubin [Mass/Vol] 0.5 mg/dL Normal 0.2-1.3 [facility] Comment on above: Order Comment: Speci men Type: BLOOD SPECIMENOrdering Facility: [facility] Address: [address] [place] [address] Performed By: #### 2 4323-8 ####[facility] LABCLIA [id number] [place] [address] Calcium [Mass/Vol] 10.0 mg/dL Normal 8.5-10.2 [facility] Comment on above: Order Comment: Speci men Type: BLOOD SPECIMENOrdering Facility: [facility] Address: [address] [place] [address] Performed By: #### 2 4323-8 ####[facility] LABCLIA [id number] [place] [address] Chloride [Moles/Vol] 105 mmol/L Normal 97-105 [facility] Comment on above: Order Comment: Speci men Type: BLOOD SPECIMENOrdering Facility: [facility] Address: [address] [place] [address] Performed By: #### 2 4323-8 ####[facility] LABCLIA [id number] [place] [address] CO2 [Moles/Vol] 29 mmol/L Normal 22-30 [facility] Comment on above: Order Comment: Speci men Type: BLOOD SPECIMENOrdering Facility: [facility] Address: [address] [place] [address] Performed By: #### 2 4323-8 ####[facility] LABCLIA [id number] [place] [address] Creatinine [Mass/Vol] 1.17 mg/dL High 0.58-0.96 [facility] Comment on above: Order Comment: Speci men Type: BLOOD SPECIMENOrdering Facility: [facility] Address: [address] [place] [address] Performed By: #### 2 4323-8 ####[facility] LABCLIA [id number] [place] [address] ESTIMATED GLOMERULAR FILTRATION RATE 50 mL/min/1.73m??? Low >=60 [facility] Comment on above: Order Comment: Speci men Type: BLOOD SPECIMENOrdering Facility: [facility] Address: [address] [place] [address] Result Comment: Hortencia mated Glomerular Filtration Rate [...] actual GFR. Performed By: #### 2 4323-8 ####[facility] LABCLIA [id number] [place] [address] Glucose [Mass/Vol] 97 mg/dL Normal 74-99 [facility] Comment on above: Order Comment: Speci men Type: BLOOD SPECIMENOrdering Facility: [facility] Address: [address] [place], [place] [id number] Result Comment: The [place] Diabetes Association (ADA) provides guidance for cutoff [...] Standards of Medical Care in Diabetes 2016, [place] [employer]. Diabetes Care. 2016.39(Suppl 1). Performed By: #### 2 4323-8 ####[facility] LABCLIA [id number] [place] [address] Potassium [Moles/Vol] 3.4 mmol/L Low 3.7-5.1 [facility] Comment on above: Order Comment: Magnus montoya Type: BLOOD SPECIMENOrdering Facility: [facility] Address: [address] [place] [address] Performed By: #### 2 4323-8 ####[facility] LABCLIA [id number] [place] [address] Protein [Mass/Vol] 6.9 g/dL Normal 6.3-8.0 [facility] Comment on above: Order Comment: Magnus men Type: BLOOD SPECIMENOrdering Facility: [facility] Address: [address] [place] [address] Performed By: #### 2 4323-8 ####[facility] LABCLIA [id number] [place] [address] Sodium [Moles/Vol] 143 mmol/L Normal 136-144 [facility] Comment on above: Order Comment: Speci men Type: BLOOD SPECIMENOrdering Facility: [facility] Address: [address] [place] [address] Performed By: #### 2 4323-8 ####[facility] LABCLIA [id number] [place] [address] Urea nitrogen [Mass/Vol] 19 mg/dL Normal 7-21 [facility] Comment on above: Order Comment: Speci men Type: BLOOD SPECIMENOrdering Facility: [facility] Address: [address] [place] [address] Performed By: #### 2 4323-8 ####[facility] LABCLIA [id number] [place] [address] IgA SerPl-mCncon 10-29-2021 IgA [Mass/Vol] 343 mg/dL Normal 70-400 [facility] Comment on above: Order Comment: Speci men Type: BLOOD SPECIMENOrdering Facility: [facility] Address: [address] [place] [address] Performed By: #### 2 458-8 ####[facility] LABCLIA [id number] [place] [id number] [place] TSH SerPl-aCncon 10-29-2021 TSH Qn 0.048 m[IU]/L Low 0.270-4.200 [facility] Comment on above: Order Comment: Speci men Type: BLOOD SPECIMENOrdering Facility: [facility] Address: [address] [place] [address] Performed By: #### 3 016-3 ####[facility] LABCLIA [id number] [place] [id number] [place] CARDIAC AMAN ADMITon 022 CK [Catalytic activity/Vol] 69 U/L Normal 26-[address] [facility] Comment on above: Performed By: #### C TRACY, CMADM #### [facility] [address] [place] [address] Dr. Sheila Mittal CK.MB [Mass/Vol] 2.36 ng/mL Normal <=3.60 [facility] Comment on above: Performed By: #### C TRACY, CMADM #### [facility] [address] [place] [address] [address] Sheila Mittal HSTROP 9.5 pg/mL Normal 4.0-51.[address] [facility] Comment on above: Result Comment: CUT- OFF POINTS HAVE BEEN ESTABLISHED BASED ON THE FOURTH UNIVERSAL DEFINITIONS OF MYOCARDIAL INFARCTION. THE UPPER REFERENCE LIMIT (URL) OF TROPONIN, DEFINED THE 99TH PERCENTILE OF cTnI DISTRIBUTION IN A REFERENCE POPULATION, HAS BEEN CONFIRMED THE DECISION THRESHOLD FOR [place] DIAGNOSIS. Performed By: #### C TRACY, CMADM #### [facility] [address] [place] [address] Dr. Sheila Mittal TEMO 97 ng/mL Critically high 9- [facility] Comment on above: Performed By: #### C TRACY, CMADM #### [facility] [address] [place] [address] Dr. Sheila Mittal CBC AUTO DIFFon 10-18-2021 BASO # 0.0 103/ul Normal 0.0-0.[address] [facility] Comment on above: Performed By: #### C BC #### [facility] [address] [place] [address] Dr. Sheila Mittal Basophils/100 WBC (Bld) 0.4 % Normal 0.2-2.0 [facility] Comment on above: Performed By: #### C BC #### [facility] [address] [place] [address] Dr. Sheila Mittal EO # 0.1 103/ul Normal 0.0-0.[address] [facility] Comment on above: Performed By: #### C BC #### [facility] [address] [place] [address] Dr. Sheila Mittal Eosinophils/100 WBC (Bld) 1.0 % Normal 0.9-7.[address] [facility] Comment on above: Performed By: #### C BC #### [facility] [address] [place] [address] Dr. Sheila Mittal Erythrocyte distribution width (RBC) [Ratio] 15.0 % Normal 11.0-15.[address] [facility] Comment on above: Performed By: #### C BC #### [facility] [address] [place] [address] Dr. Sheila Mittal Hematocrit (Bld) [Volume fraction] 45.0 % Normal 36.0-48.[address] [facility] Comment on above: Performed By: #### C BC #### [facility] [address] [place] [address] Dr. Sheila Mittal Hemoglobin (Bld) [Mass/Vol] 14.3 g/dL Normal 12.0-16.[address] [facility] Comment on above: Performed By: #### C BC #### [facility] [address] [place] [address] Dr. Sheila Mittal IG # 0.04 10e3/ul Critically high 0.00-0.03 [facility] Comment on above: Performed By: #### C BC #### [facility] [address] [place] [address] Dr. Sheila Mittal IG % 0.4 % Normal 0.0-0.[address] [facility] Comment on above: Performed By: #### C BC #### [facility] [address] [place] [address] Dr. Sheila Mittal LYMPH # 1.5 103/ul Normal 1.2-3.8 [facility] Comment on above: Performed By: #### C BC #### [facility] [address] [place] [address] Dr. Sheila Mittal Lymphocytes/100 WBC (Bld) 17.0 % Critically low 20.5-60.[address] [facility] Comment on above: Performed By: #### C BC #### [facility] [address] [place] [address] Dr. Sheila Mittal MANUAL DIFF REQ NO Normal [facility] Comment on above: Performed By: #### C BC #### [facility] [address] [place] [address] Dr. Sheila Mittal MCH (RBC) [Entitic mass] 27.3 pg Normal 26.7-34.[address] [facility] Comment on above: Performed By: #### C BC #### [facility] [address] [place] [address] Dr. Sheila Mittal MCHC (RBC) [Mass/Vol] 31.8 g/dL Normal 29.9-35.[address] [facility] Comment on above: Performed By: #### C BC #### [facility] [address] [place] [address] Dr. Sheila Mittal MCV (RBC) [Entitic vol] 85.9 fL Normal 81.0-99.0 [facility] Comment on above: Performed By: #### C BC #### [facility] [address] [place] [address] Dr. Sheila Mittal MONO # 0.6 103/ul Normal 0.3-0.[address] [facility] Comment on above: Performed By: #### C BC #### [facility] [address] [place] [address] Dr. Sheila Mittal Monocytes/100 WBC (Bld) 6.6 % Normal 1.7-12.0 [facility] Comment on above: Performed By: #### C BC #### [facility] [address] [place] [address] Dr. Sheila Mittal NEUT # 6.8 103/ul Critically high 1.4-6.5 [facility] Comment on above: Performed By: #### C BC #### [facility] [address] [place] [address] Dr. Sheila Mittal Neutrophils/100 WBC (Bld) 74.6 % Normal 43.0-75.[address] [facility] Comment on above: Performed By: #### C BC #### [facility] [address] [place] [address] Dr. Sheila Mittal Platelet mean volume (Bld) [Entitic vol] 9.3 fL Critically low 9.5-13.[address] [facility] Comment on above: Performed By: #### C BC #### [facility] [address] [place] [address] Dr. Sheila Mittal PLT 231 103/ul Normal 150-450 [facility] Comment on above: Performed By: #### C BC #### [facility] [address] [place] [address] Dr. Sheila Mittal RBC 5.24 106/ul Normal 4.20-5.[address] [facility] Comment on above: Performed By: #### C BC #### [facility] [address] [place] [address] Dr. Sheila Mittal WBC 9.1 103/ul Normal 4.0-11.[address] [facility] Comment on above: Performed By: #### C BC #### [facility] [address] [place] [address] Dr. Sheila Mittal ER URINE PROFILEon 2 Bilirubin Ql (U) SMALL Abnormal NEGATIVE [facility] Comment on above: Performed By: #### WHITNEY KULKARNIRO #### [facility] [address] [place] [address] Dr. Sheila Mittal Clarity (U) SL CLOUDY Abnormal CLEAR [facility] Comment on above: Performed By: #### WHITNEY KULKARNIRO #### [facility] [address] [place] [address] Dr. Sheila Mittal Color (U) YELLOW Normal YELLOW [facility] Comment on above: Performed By: #### WHITNEY KULKARNIRO #### [facility] [address] [place] [address] Dr. Sheila Mittal ERUAHD A micrscopic examination will be performed if indicated. Normal [facility] Comment on above: Performed By: #### WHITNEY KULKARNIRO #### [facility] [address] [place] [address] Dr. Sheila Mittal Glucose Ql (U) Negative Normal NEGATIVE [facility] Comment on above: Performed By: #### Leonardo SLADE UMICRO #### [facility] [address] [place] [address] Dr. Sheila Mittal Hemoglobin Ql (U) Negative Normal NEGATIVE [facility] Comment on above: Performed By: #### E RUR, UMICRO #### [facility] [address] [place] [address] Dr. Sheila Mittal Ketones Ql (U) TRACE Abnormal NEGATIVE [facility] Comment on above: Performed By: #### E BERLIN, UMICRO #### [facility] [address] [place] [address] Dr. Sheila Mittal LEUKOCYTES TRACE Abnormal NEGATIVE [facility] Comment on above: Performed By: #### Leonardo SLADE UMICRO #### [facility] [address] [place] [address] Dr. Sheila Mittal Nitrite Ql (U) Negative Normal NEGATIVE [facility] Comment on above: Performed By: #### Leonardo SLADE UMICRO #### [facility] [address] [place] [address] Dr. Sheila Mittal pH (U) 7.0 [pH] Normal 5-[address] [facility] Comment on above: Performed By: #### Leonardo SLADE UMICRO #### [facility] [address] [place] [address] Dr. Sheila Mittal Protein (U) [Mass/Vol] 100 mg/dL Abnormal NEGAT PATRIZIA/ TRACE [facility] Comment on above: Performed By: #### Leonardo SLADE UMICRO #### [facility] [address] [place] [address] Dr. Sheila Mittal SPEC GRAVITY 1.015 Normal 1.005-<=1.02 5 [facility] Comment on above: Performed By: #### E BER[place], UMICRO #### [facility] [address] [place] [address] Dr. Sheila Mittal UR MICRO IND INDICATED Normal [facility] Comment on above: Performed By: #### E OZIEL SLADE #### [facility] [address] [place] [address] Dr. Sheila Mittal Urobilinogen Qn (U) 0.2 {Brooke'U}/dL Normal 0.2 - 1. [address] [facility] Comment on above: Performed By: #### E OZIEL SLADE #### [facility] [address] [place] [address] Dr. Sheila Mittal LACTATE/LACTIC ACIDon 2021 Lactate [Moles/Vol] 1.9 mmol/L Normal 0.4-1.9 [facility] Comment on above: Performed By: #### L ACT #### [facility] [address] [place] [address] Dr. Sheila Mittal PROF 14(COMP METB)on 022 Albumin [Mass/Vol] 3.8 g/dL Normal 3.4-5.0 [facility] Comment on above: Performed By: #### C JAKUB MOLINA #### [facility] [address] [place] [address] Dr. Sheila Mittal Albumin/Globulin [Mass ratio] 0.8 {ratio} Normal [facility] Comment on above: Performed By: #### C JAKUB MOLINA #### [facility] [address] [place] [address] Dr. Sheila Mittal ALP [Catalytic activity/Vol] 155 U/L Critically high 46-[address] [facility] Comment on above: Performed By: #### C JAKUB MOLINA #### [facility] [address] [place] [address] Dr. Sheila Mittal ALT [Catalytic activity/Vol] 37 U/L Normal 14-[address] [facility] Comment on above: Performed By: #### C JAKUB MOLINA #### [facility] [address] [place] [address] Dr. Sheila Mittal Anion gap [Moles/Vol] 13.5 mmol/L Normal [facility] Comment on above: Performed By: #### C JAKUB MOLINA #### [facility] [address] [place] [address] Dr. Sheila Mittal AST [Catalytic activity/Vol] 42 U/L Critically high 15-[address] [facility] Comment on above: Performed By: #### C TRACY, CMADM #### [facility] [address] [place] [address] [address] Sheila Mittal Bilirubin [Mass/Vol] 0.7 mg/dL Normal 0.2-1.[address] [facility] Comment on above: Performed By: #### C TRACY, CMADM #### [facility] [address] [place] [address] [address] Sheila Mittal Calcium [Mass/Vol] 10.0 mg/dL Normal 8.5-10.1 [facility] Comment on above: Performed By: #### C TRACY, CMADM #### [facility] [address] [place] [address] Dr. Sheila Mittal Chloride [Moles/Vol] 103 mmol/L Normal 98-[address] [facility] Comment on above: Performed By: #### C TRACY, CMADM #### [facility] [address] [place] [address] Dr. Sheila Mittal CO2 [Moles/Vol] 29.7 mmol/L Normal 21.0-32.0 [facility] Comment on above: Performed By: #### C TRACY, CMADM #### [facility] [address] [place] [address] Dr. Sheila Mittal Creatinine [Mass/Vol] 1.06 mg/dL Critically high 0.55-1.[address] [facility] Comment on above: Performed By: #### C TRACY, CMADM #### [facility] [address] [place] [address] Dr. Sheila Mittal EGFR-AF BELGIAN >60 Normal >=60 [facility] Comment on above: Performed By: #### C TRACY, CMADM #### [facility] [address] [place] [address] Dr. Sheila Mittal EGFR-NON AF BELGIAN 51 mL/min/1.73m2 Critically low >=[address] [facility] Comment on above: Performed By: #### C TRACY, CMADM #### [facility] [address] [place] [address] [address] Sheila Mittal Globulin (S) [Mass/Vol] 4.5 g/dL Normal [facility] Comment on above: Performed By: #### C TRACY, CMADM #### [facility] [address] [place] [address] Dr. Sheila Mittal Glucose [Mass/Vol] 104 mg/dL Normal 74-106 [facility] Comment on above: Performed By: #### C TRACY, CMADM #### [facility] [address] [place] [address] Dr. Sheila Mittal Potassium [Moles/Vol] 3.2 mmol/L Critically low 3.5-5.[address] [facility] Comment on above: Performed By: #### C TRACY, CMADM #### [facility] [address] [place] [address] Dr. Sheila Mittal Protein [Mass/Vol] 8.3 g/dL Critically high 6.4-8.2 [facility] Comment on above: Performed By: #### C TRACY, CMADM #### [facility] [address] [place] [address] Dr. Sheila Mittal Sodium [Moles/Vol] 143 mmol/L Normal 136-145 [facility] Comment on above: Performed By: #### C TRACY, CMADM #### [facility] [address] [place] [address] Dr. Sheila Mittal Urea nitrogen [Mass/Vol] 10.0 mg/dL Normal 7.0-18.[address] [facility] Comment on above: Performed By: #### C TRACY, CMADM #### [facility] [address] [place] [address] Dr. Sheila Mittal Urea nitrogen/Creatinine [Mass ratio] 9.4 mg/mg Normal [facility] Comment on above: Performed By: #### C TRACY, CMADM #### [facility] [address] [place] [address] Dr. Sheila Mittal URINE MICROSCOPIC ONLYon BACTERIA NONE SEEN Normal NONE SEEN [facility] Comment on above: Performed By: #### E OZIEL SLADE ####[facility] [id number] [place] [address]Dr. Sheila Mittal Bacteria identified Cx Nom (U) NOT INDICATED Normal [facility] Comment on above: Performed By: #### WHITNEY KULKARNIRO ####[facility] [id number] [place] [address]Dr. Sheila Mittal CAST SEEN Abnormal NONE SEEN [facility] Comment on above: Performed By: #### WHITNEY KULKARNIRO ####[facility] [id number] [place] [address]Dr. Sheila Mittal Crystals LM Nom (Urine sed) NONE SEEN Normal NONE SEEN [facility] Comment on above: Performed By: #### WHITNEY KULKARNIRO ####[facility] [id number] [place] [address]Dr. Sheila Mittal Epithelial cells LM Ql (Urine sed) FEW Abnormal NONE SEEN /RARE [facility] Comment on above: Performed By: #### WHITNEY KULKARNIRO ####[facility] [id number] [place], [place] [address]Dr. Sheila Mittal MUCOUS NONE SEEN Normal NONE SEEN [facility] Comment on above: Performed By: #### WHITNEY KULKARNIRO ####[facility] [id number] [place] [address]Dr. Sheila Mittal RBC NONE SEEN Abnormal 0-2 [facility] Comment on above: Performed By: #### WHITNEY KULKARNIRO ####[facility] [id number] [place], [place] [address]Dr. Sheila Mittal WBC 0-2 Abnormal NONE SEEN [facility] Comment on above: Performed By: #### WHITNEY KULKARNIRO ####[facility] [id number] [place], [place] [address]Dr. Sheila Mittal XR CHEST 1 Von 10-18-2021 [...] DELISA EVANS Date: 2021-10-18 16:27 Normal [facility] Basic Metabolic Panelon Calcium [Mass/Vol] 9.6 mg/dL Normal 8.2-10.2 [facility] Comment on above: Performed By: #### U YUDI, PTH, PHOS, BMP, [id number] #### [address] Chloride [Moles/Vol] 102 mmol/L Normal 95-114 [facility] Comment on above: Performed By: #### U YUDI, PTH, PHOS, BMP, [id number] #### [address] CO2 [Moles/Vol] 24.2 mmol/L Normal 22.0-30.0 [facility] Comment on above: Performed By: #### U YUDI, PTH, PHOS, BMP, [id number] #### [address] Creatinine [Mass/Vol] 1.01 mg/dL Normal 0.44-1.03 [facility] Comment on above: Performed By: #### U YUDI, PTH, PHOS, BMP, [id number] #### [address] Estimated GFR ( [place] > 60 [facility] Comment on above: Result Comment: GFR estimated reference range: According to KDOQI guidelines, <60 ml/min/1.73m2 is sufficient to diagnose a patient with chronic kidney disease. Performed By: #### U YUDI, PTH, PHOS, BMP, [id number] #### [address] Estimated GFR (Non- Am 54 [facility] Comment on above: Performed By: #### U YUDI, PTH, PHOS, BMP, [id number] #### [address] Glucose [Mass/Vol] 95 mg/dL Normal 70-100 [facility] Comment on above: Result Comment: [place] Glucose Reference Range is dependent on time and content of last meal. Glucose of more than 200 mg/dL in a nonstressed, ambulatory subject supports the diagnosis of Diabetes Mellitus. ADA recommended reference range Performed By: #### U YUDI, PTH, PHOS, BMP, [id number] #### [facility] [address] Potassium [Moles/Vol] 3.2 mmol/L Low 3.5-5.1 [facility] Comment on above: Performed By: #### U YUDI, PTH, PHOS, BMP, [id number] #### [facility] [address] Sodium [Moles/Vol] 138 mmol/L Normal 136-146 [facility] Comment on above: Performed By: #### U YUDI, PTH, PHOS, BMP, [id number] #### [facility] [address] Urea nitrogen [Mass/Vol] 16 mg/dL Normal 9-23 [facility] Comment on above: Performed By: #### U YUDI, PTH, PHOS, BMP, [id number] #### [facility] [address] Creatinine and Glomerular fi ltration rate.predicted panel (S/P/Bld)Ordered By: Daniel Ma on 07-15-2021 Creatinine [Mass/Vol] 1.01 mg/dL 0.44-1.03 [facility] Estimated glomerular filtrat ion rate (GFR) non- AmericanOrdered By: Daniel Ma on 07-15-2021 GFR/1.73 sq M.predicted among non-blacks MDRD (S/P/Bld) [Vol rate/Area] 54 mL/Min [facility] No Panel InformationOrdered By: Daniel Ma on 07-15-2021 25-Hydroxy Vitamin D Total 42.9 ng/mL 30-100 [facility] Comment on above: VITAMIN D STATUS 25( [place])VITAMIN D RANGE (ng/mL) Deficient <20 Insufficient 20 to <30 Sufficient 30 to 100 Reference: Jenniffer MF,Neal NC, Mary FERGUSON, et al. Evaluation,treatment, and prevention of vitamin D deficiency; an Endocrine Society clinical practice guideline. JCEM. 2010; 96(7):1911-30. Estimated GFR () > 60 mL/Min [facility] Comment on above: GFR estimated refere nce range: According to KDOQI guidelines, <60 ml/min/1.73m2 is sufficient to diagnose a patient with chronic kidney disease. Pharmacy Creatinine Clearance (Chem N/A [facility] No Panel Informationon 07-15 9.6\S\9.6 Normal 8.2-10.2 [facility] 3 DO Work Phone: 24.2\S\24.2 Normal 22.0-30.0 [facility] 3 DO Work Phone: 102\S\102 Normal 95-114 [facility] 3 DO Work Phone: 3.2\S\3.2 Normal 2.5-4.6 -[facility] 3 DO Work Phone: 138\S\138 Normal 136-146 [facility] 3 DO Work Phone: > 60 Normal [facility] 3 DO Work Phone: Comment on above: GFR estimated refere nce range: According to KDOQI guidelines, <60 ml/min/1.73m2 is sufficient to diagnose a patient with chronic kidney disease. 54\S\54 Normal [facility] 3 DO Work Phone: 1.01\S\1.01 Normal 0.44-1.03 [facility] 3 DO Work Phone: 16\S\16 Normal 9-23 -[facility] 3 DO Work Phone: 95\S\95 Normal 70-100 [place] [address] DO Work Phone: Comment on above: Random Glucose Refer ence Range is dependent on time and content of last meal. Glucose of more than 200 mg/dL in a nonstressed, ambulatory subject supports the diagnosis of Diabetes Mellitus. ADA recommended reference range 4.7\S\4.7 Normal 2.6-7.2 [place] [address] DO Work Phone: 42.9\S\42.9 Normal 30-100 [place] [address] DO Work Phone: Comment on above: VITAMIN D STATUS 25( [place])VITAMIN D RANGE (ng/mL) Deficient <20 Insufficient 20 to <30 Sufficient 30 to 100 Reference: Jenniffer MF,Neal NC, Mary FERGUSON, et al. Evaluation,treatment, and prevention of vitamin D deficiency; an Endocrine Society clinical practice guideline. JCEM. 2010; 96(7):1911-30. 48.8\S\48.8 Normal 12- [place] [address] DO Work Phone: Comment on above: PERFORMED BY:[facility] [place], [place] [id number] MEDICAL DIRECTORLISA VERDE M.D. Parathyroid Hormone Intacton 07-15-2021 Parathyroid Hormone Intact 48.8 pg/mL Normal 12- [facility] Comment on above: Result Comment: PERF ORMED BY: [facility] [address] [place] [address] PATHOLOGIST MERCHANDISING PROFESSOR LISA VERDE M.D. Performed By: #### C BC, LIPASE, BMP, HEPATIC #### [facility] [address] [place] [address] [facility] Phosphate [Mass/volume] in S wero or PlasmaOrdered By: Daniel Ma on 07-15-2021 Phosphate [Mass/Vol] 3.2 mg/dL 2.5-4.6 [facility] Phosphoruson 07-15-2021 Phosphate [Mass/Vol] 3.2 mg/dL Normal 2.5-4.6 [facility] Comment on above: Performed By: #### U YUDI, PTH, PHOS, BMP, [id number] #### [facility] [address] Serum or plasma calcium jannet urement (mass/volume)Ordered By: Daniel Ma on 07-15-2021 Calcium [Mass/Vol] 9.6 mg/dL 8.2-10.2 [facility] Serum or plasma chloride yair surement (moles/volume)Ordered By: Daniel Ma on 07-15-2021 Chloride [Moles/Vol] 102 mmol/L 95-114 [facility] Serum or plasma glucose jannet urement (mass/volume)Ordered By: Daniel Ma on 07-15-2021 Glucose [Mass/Vol] 95 mg/dL 70-100 [facility] Comment on above: ADA recommended refe rence range Random Glucose Reference Range is dependent on time and content of last meal. Glucose of more than 200 mg/dL in a nonstressed, ambulatory subject supports the diagnosis of Diabetes Mellitus. Serum or plasma intact parat hyroid hormone measurement (mass/volume)Ordered By: Daniel Ma on 07-15-2021 Parathyrin.intact [Mass/Vol] 48.8 pg/mL 12-88 [facility] Serum or plasma potassium me asurement (moles/volume)Ordered By: Daniel Ma on 07-15-2021 Potassium [Moles/Vol] 3.2 mmol/L 3.5-5.1 [facility] Serum or plasma sodium measu rement (moles/volume)Ordered By: Daniel Ma on 07-15-2021 Sodium [Moles/Vol] 138 mmol/L 136-146 [facility] Serum or plasma total carbon dioxide measurement (moles/volume)Ordered By: Daniel Ma on 07-15-2021 CO2 [Moles/Vol] 24.2 mmol/L 22.0-30.0 [facility] Serum or plasma urea nitroge n measurement (mass/volume)Ordered By: Daniel Ma on 07-15-2021 Urea nitrogen [Mass/Vol] 16 mg/dL 9- [facility] Serum or plasma uric acid me asurement (mass/volume)Ordered By: Daniel Ma on 07-15-2021 Urate [Mass/Vol] 4.7 mg/dL 2.6-7.2 [facility] Uric Acidon 07-15-2021 Urate [Mass/Vol] 4.7 mg/dL Normal 2.6-7.2 [facility] Comment on above: Performed By: #### U YUDI, PTH, PHOS, BMP, [id number] #### [facility] [address] [place] [id number] [facility] Vitamin D 25 Hydroxy Totalon 07-15-2021 Vitamin D 25 Hydroxy Total 42.9 ng/mL Normal 30-100 [facility] Comment on above: Result Comment: [place] MIN D STATUS 25([place])VITAMIN D RANGE (ng/mL) Deficient <20 Insufficient 20 to <30 Sufficient 30 to 100 Reference: Jenniffer MF,Neal NC, Mary FERGUSON, et al. Evaluation,treatment, and prevention of vitamin D deficiency; an Endocrine Society clinical practice guideline. JCEM. 2010; 96(7):1911-30. Performed By: #### C BC, LIPASE, BMP, HEPATIC #### [facility] [address] [place] [id number] [facility] US aortaon 06-14-2021 US aorta [facility] Main [employer] [address] [place], [place] [id number] Ultrasound Report Signed Patient: Dianelys Womack MR#: [id number] 0 : 1950 Acct:[id number] Age/Sex: 70 / F ADM Date: 06/14/21 Loc: [facility] Room: Type: [facility] Attending Dr: Nick Acosta MD Ordering Provider: [...] Nick Acosta M.D.06/14/2021 10:56 AM Dictation Location: [place] [address] Tech: Hellen Yefriluctawnya Transcribed By: AMINA 06/14/21 1056 Dictated By: Nick Acosta MD 06/14/21 1051 Signed By: 06/14/21 105 [facility] Tobacco Screening.on 022 Adult depression screening assessment No [facility] 250 DO Work Phone: Fall risk assessment b) One or more falls in the last year [facility] 250 DO Work Phone: Tobacco use status [facility] b) No M [facility] 250 DO Work Phone: Vital Signs Date Time Vital Sign Value Performing Clinician Facility 03-21-2024 15:47-0500 Body height 160 cm Monika Lehman MD Work Phone: [facility] 03-21-2024 15:47-0500 Body mass index (BMI) [Ratio] 32.59 kg/m2 Monika Lehman MD Work Phone: [facility] 03-21-2024 15:47-0500 Body weight 83.46 kg Monika Lehman MD Work Phone: [facility] 03-21-2024 15:47-0500 Diastolic blood pressure 88 mm[Hg] Monika Lehman MD Work Phone: [facility] 03-21-2024 15:47-0500 Heart rate 91 /min Monika Lehman MD Work Phone: [facility] 03-21-2024 15:47-0500 SaO2% (BldA) [Mass fraction] 98 % Monika Lehman MD Work Phone: [facility] 03-21-2024 15:47-0500 Systolic blood pressure 138 mm[Hg] Monika Lehman MD Work Phone: [facility] 03-05-2024 16:34-0500 Body height 160 cm Monika Lehman MD Work Phone: [facility] 03-05-2024 16:34-0500 Body mass index (BMI) [Ratio] 32.42 kg/m2 Monika Lehman MD Work Phone: [facility] 03-05-2024 16:34-0500 Body weight 83.01 kg Monika Lehman MD Work Phone: [facility] 03-05-2024 16:34-0500 Diastolic blood pressure 86 mm[Hg] Monika Lehman MD Work Phone: [facility] 03-05-2024 16:34-0500 Heart rate 94 /min Monika Lehman MD Work Phone: [facility] 03-05-2024 16:34-0500 SaO2% (BldA) [Mass fraction] 95 % Monika Lehman MD Work Phone: [facility] 03-05-2024 16:34-0500 Systolic blood pressure 138 mm[Hg] Monika Lehman MD Work Phone: [facility] 02-20-2024 14:11-0500 Body height 160 cm Monika Lehman MD Work Phone: [facility] 02-20-2024 14:11-0500 Body mass index (BMI) [Ratio] 32.95 kg/m2 Monika Lehman MD Work Phone: [facility] 02-20-2024 14:11-0500 Body weight 84.37 kg Monika Lehman MD Work Phone: [facility] 02-20-2024 14:11-0500 Diastolic blood pressure 86 mm[Hg] Monika Lehman MD Work Phone: [facility] 02-20-2024 14:11-0500 Heart rate 90 /min Monika Lehman MD Work Phone: [facility] 02-20-2024 14:11-0500 SaO2% (BldA) [Mass fraction] 99 % Monika Lehman MD Work Phone: [facility] 02-20-2024 14:11-0500 Systolic blood pressure 124 mm[Hg] Monika Lehman MD Work Phone: [facility] 01-17-2024 13:57-0500 Body height 160 cm Елена Mg OUTSIDE UPHOLSTERER Work Phone: [facility] 01-17-2024 13:57-0500 Body mass index (BMI) [Ratio] 32.63 kg/m2 Елена Mg OUTSIDE UPHOLSTERER Work Phone: [facility] 01-17-2024 13:57-0500 Body weight 83.55 kg Елена Mg OUTSIDE UPHOLSTERER Work Phone: [facility] 01-17-2024 13:57-0500 Diastolic blood pressure 80 mm[Hg] Елена Mg OUTSIDE UPHOLSTERER Work Phone: [facility] 01-17-2024 13:57-0500 Heart rate 69 /min Елена Mg OUTSIDE UPHOLSTERER Work Phone: [facility] 01-17-2024 13:57-0500 Respiratory rate 17 /min Елена Mg OUTSIDE UPHOLSTERER Work Phone: [facility] 01-17-2024 13:57-0500 SaO2% (BldA) [Mass fraction] 97 % Елена Mg OUTSIDE UPHOLSTERER Work Phone: [facility] 01-17-2024 13:57-0500 Systolic blood pressure 122 mm[Hg] Елена Mg OUTSIDE UPHOLSTERER Work Phone: [facility] 12-20-2023 13:17-0500 Body height 160 cm Елена Mg OUTSIDE UPHOLSTERER Work Phone: [facility] 12-20-2023 13:17-0500 Body mass index (BMI) [Ratio] 30.82 kg/m2 Елена Mg OUTSIDE UPHOLSTERER Work Phone: [facility] 12-20-2023 13:17-0500 Body weight 78.93 kg Елена Mg OUTSIDE UPHOLSTERER Work Phone: [facility] 12-20-2023 13:17-0500 Diastolic blood pressure 88 mm[Hg] Елена Mg OUTSIDE UPHOLSTERER Work Phone: [facility] 12-20-2023 13:17-0500 Heart rate 81 /min Елена Mg OUTSIDE UPHOLSTERER Work Phone: [facility] 12-20-2023 13:17-0500 SaO2% (BldA) [Mass fraction] 98 % Елена Mg OUTSIDE UPHOLSTERER Work Phone: [facility] 12-20-2023 13:17-0500 Systolic blood pressure 134 mm[Hg] Елена Mg OUTSIDE UPHOLSTERER Work Phone: [facility] 07-21-2023 11:11-0400 Body height 160 cm Daniel Ma MD Work Phone: [facility] 07-21-2023 11:11-0400 Body mass index (BMI) [Ratio] 30.82 kg/m2 Daniel Ma MD Work Phone: [facility] 07-21-2023 11:11-0400 Body weight 78.93 kg Daniel Ma MD Work Phone: [facility] 07-21-2023 11:11-0400 Diastolic blood pressure 76 mm[Hg] Daniel Ma MD Work Phone: [facility] 07-21-2023 11:11-0400 Heart rate 80 /min Daniel Ma MD Work Phone: [facility] 07-21-2023 11:11-0400 Systolic blood pressure 126 mm[Hg] Daniel Ma MD Work Phone: [facility] 01-20-2023 10:47-0500 Body height 160 cm Daniel Ma MD Work Phone: [facility] 01-20-2023 10:47-0500 Body mass index (BMI) [Ratio] 29.76 kg/m2 Daniel Ma MD Work Phone: [facility] 01-20-2023 10:47-0500 Body weight 76.2 kg Daniel Ma MD Work Phone: [facility] 01-20-2023 10:47-0500 Diastolic blood pressure 79 mm[Hg] Daniel Ma MD Work Phone: [facility] 01-20-2023 10:47-0500 Heart rate 83 /min Daniel Ma MD Work Phone: [facility] 01-20-2023 10:47-0500 Systolic blood pressure 119 mm[Hg] Daniel Ma MD Work Phone: [facility] 11-21-2022 15:31-0400 Body height 160 cm Elinor Raman MD Work Phone: [facility] 11-21-2022 15:31-0400 Body mass index (BMI) [Ratio] 29.58 kg/m2 Elinor Raman MD Work Phone: [facility] 11-21-2022 15:31-0400 Body weight 75.75 kg Elinor Raman MD Work Phone: [facility] 11-21-2022 15:31-0400 Diastolic blood pressure 86 mm[Hg] Elinor Raman MD Work Phone: [facility] 11-21-2022 15:31-0400 Heart rate 82 /min Elinor Raman MD Work Phone: [facility] 11-21-2022 15:31-0400 Systolic blood pressure 112 mm[Hg] Elinor Raman MD Work Phone: [facility] 10-25-2022 11:30-0400 Heart rate 61 /min Kenton Kapadia MD Work Phone: [facility] 10-25-2022 11:30-0400 SaO2% (BldA) [Mass fraction] 97 % Kenton Kapadia MD Work Phone: [facility] 10-25-2022 11:29-0400 Diastolic blood pressure 82 mm[Hg] Kenton Kapadia MD Work Phone: [facility] 10-25-2022 11:29-0400 Systolic blood pressure 131 mm[Hg] Kenton Kapadia MD Work Phone: [facility] 10-25-2022 11:15-0400 Body temperature 98.1 [degF] Kenton Kapadia MD Work Phone: [facility] 10-25-2022 11:15-0400 Respiratory rate 18 /min Kenton Kapadia MD Work Phone: [facility] 10-25-2022 09:51-0400 Body height 160 cm Kenton Kapadia MD Work Phone: [facility] 10-25-2022 09:51-0400 Body weight 68.04 kg Kenton Kapadia MD Work Phone: [facility] 09-20-2022 12:51-0400 Body height 160.02 cm Ceepatricia Hamiltona Work Phone: [address] Work Phone: 09-20-2022 12:51-0400 Body mass index (BMI) [Ratio] 29.23 kg/m2 Monika Hamiltona Work Phone: [address] Work Phone: 09-20-2022 12:51-0400 Body surface area Derived from formula 1.78 m2 Rugen Padmini Fallon Work Phone: [address] Work Phone: 09-20-2022 12:51-0400 Body temperature 97.2 [degF] Rugen M [place] Work Phone: [address] Work Phone: 09-20-2022 12:51-0400 Body weight 74.84 kg Rugen M [place] Work Phone: [facility] [address] [place] Work Phone: 09-20-2022 12:51-0400 Diastolic blood pressure 100 mm[Hg] Rugen M Fallon Work Phone: [facility] [address] [place] Work Phone: 09-20-2022 12:51-0400 Heart rate 90 /min Rugen M Fallon Work Phone: [facility] [address] [place] Work Phone: 09-20-2022 12:51-0400 Systolic blood pressure 156 mm[Hg] Rugen M [place] Work Phone: [facility] [address] [place] Work Phone: 05-04-2022 11:56-0400 Body height 160.02 cm Rugen M [place] Work Phone: [facility] 250 DO Work Phone: 05-04-2022 11:56-0400 Body mass index (BMI) [Ratio] 26.93 kg/m2 Rugen M Fallon Work Phone: [facility] 250 DO Work Phone: 05-04-2022 11:56-0400 Body surface area Derived from formula 1.72 m2 Rugen M [place] Work Phone: [facility] 250 DO Work Phone: 05-04-2022 11:56-0400 Body weight 68.95 kg Rugen M Fallon Work Phone: [facility] 250 DO Work Phone: 05-04-2022 11:56-0400 Diastolic blood pressure 70 mm[Hg] Rugen M Fallon Work Phone: [facility] 250 DO Work Phone: 05-04-2022 11:56-0400 Heart rate 60 /min Rugpatricia [place] Work Phone: [facility] 250 DO Work Phone: 05-04-2022 11:56-0400 Systolic blood pressure 130 mm[Hg] Rugen Padmini [place] Work Phone: [facility] 250 DO Work Phone: 03-22-2022 15:35-0500 Body height 160.02 cm Rugen Padmini [place] Work Phone: [facility] 3 DO Work Phone: 03-22-2022 15:35-0500 Body mass index (BMI) [Ratio] 27.81 kg/m2 Rugen Padmini Fallon Work Phone: [facility] 3 DO Work Phone: 03-22-2022 15:35-0500 Body surface area Derived from formula 1.74 m2 Rugen Padmini Fallon Work Phone: [facility] 3 DO Work Phone: 03-22-2022 15:35-0500 Body temperature 97.1 [degF] Rugen Padmini Fallon Work Phone: [facility] 3 DO Work Phone: 03-22-2022 15:35-0500 Body weight 71.22 kg Rugen M Fallon Work Phone: [facility] 3 DO Work Phone: 03-22-2022 15:35-0500 Diastolic blood pressure 82 mm[Hg] Rugen M [place] Work Phone: [facility] 3 DO Work Phone: 03-22-2022 15:35-0500 Heart rate 60 /min Rugpatricia [place] Work Phone: [facility] 3 DO Work Phone: 03-22-2022 15:35-0500 Systolic blood pressure 130 mm[Hg] Rugen Padmini [place] Work Phone: [facility] 3 DO Work Phone: 02-24-2022 09:51-0500 Body height 160 cm Pacc 2 Work Phone: [facility] 02-24-2022 09:51-0500 Body temperature 97.2 [degF] Pacc 2 Work Phone: [facility] 02-24-2022 09:51-0500 Body weight 71.22 kg Pacc 2 Work Phone: [facility] 02-24-2022 09:51-0500 Diastolic blood pressure 87 mm[Hg] Pacc 2 Work Phone: [facility] 02-24-2022 09:51-0500 Heart rate 63 /min Pacc 2 Work Phone: [facility] 02-24-2022 09:51-0500 SaO2% (BldA) [Mass fraction] 99 % Pacc 2 Work Phone: [facility] 02-24-2022 09:51-0500 Systolic blood pressure 153 mm[Hg] Pacc 2 Work Phone: [facility] 01-12-2022 10:05-0500 Body height 157.5 cm BROOKE Vera MD Work Phone: [facility] 01-12-2022 10:05-0500 Body temperature 97.39 [degF] BROOKE Vera MD Work Phone: [facility] 01-12-2022 10:05-0500 Body weight 71.89 kg BROOKE Vera MD Work Phone: [facility] 01-12-2022 10:05-0500 Diastolic blood pressure 107 mm[Hg] BROOKE Vera MD Work Phone: [facility] 01-12-2022 10:05-0500 Heart rate 107 /min BROOKE Vera MD Work Phone: [facility] 01-12-2022 10:05-0500 SaO2% (BldA) [Mass fraction] 97 % BROOKE Vera MD Work Phone: [facility] 01-12-2022 10:05-0500 Systolic blood pressure 152 mm[Hg] BROOKE Vera MD Work Phone: [facility] 12-06-2021 12:20-0400 Diastolic blood pressure 89 mm[Hg] Kenton Kapadia MD Work Phone: [facility] 12-06-2021 12:20-0400 Heart rate 69 /min Kenton Kapadia MD Work Phone: [facility] 12-06-2021 12:20-0400 Respiratory rate 16 /min Kenton Kapadia MD Work Phone: [facility] 12-06-2021 12:20-0400 SaO2% (BldA) [Mass fraction] 98 % Kenton Kapadia MD Work Phone: [facility] 12-06-2021 12:20-0400 Systolic blood pressure 153 mm[Hg] Kenton Kapadia MD Work Phone: [facility] 12-06-2021 12:01-0400 Body temperature 96.8 [degF] Kenton Kapadia MD Work Phone: [facility] 12-06-2021 09:04-0400 Body height 160 cm Kenton Kapadia MD Work Phone: [facility] 12-06-2021 09:04-0400 Body weight 77.11 kg Kenton Kapadia MD Work Phone: [facility] 11-17-2021 14:09-0400 Diastolic blood pressure 92 mm[Hg] MD Monika Lehman Work Phone: [facility] 11-17-2021 14:09-0400 Heart rate 92 /min MD Monika Lehman Work Phone: [facility] 11-17-2021 14:09-0400 Respiratory rate 18 /min MD Monika Lehman Work Phone: [facility] 11-17-2021 14:09-0400 SaO2% (BldA) [Mass fraction] 95 % MD Monika Lehman Work Phone: [facility] 11-17-2021 14:09-0400 Systolic blood pressure 168 mm[Hg] MD Monika Lehman Work Phone: [facility] 11-17-2021 10:47-0400 Body height 160.02 cm MD Monika Lehman Work Phone: [facility] 11-17-2021 10:47-0400 Body temperature 98.3 [degF] MD Monika Lehman Work Phone: [facility] 11-17-2021 10:47-0400 Body weight 74.84 kg MD Monika Lehman Work Phone: [facility] 06-14-2021 11:30-0400 Body height 160.02 cm Nick Acosta Other [employer] Other 06-14-2021 11:30-0400 Body mass index (BMI) [Ratio] 31.53 kg/m2 Nick Acosta Other [employer] Other 06-14-2021 11:30-0400 Body temperature 96.4 [degF] Nick Acosta Other [employer] Other 06-14-2021 11:30-0400 Body weight 80.74 kg Nick Acosta Other [employer] Other 06-14-2021 11:30-0400 Diastolic blood pressure 80 mm[Hg] Nick Sampsonwoody Other [place] [facility] Other 06-14-2021 11:30-0400 SaO2% (BldA) [Mass fraction] 96 % Nick Acosta Other [facility] Other 06-14-2021 11:30-0400 Systolic blood pressure 140 mm[Hg] Nick Acosta Other [place] [facility] Other 05-03-2021 11:26-0400 Diastolic blood pressure 82 mm[Hg] Monika Markafonia Work Phone: [facility] [employer] 250 DO Work Phone: 05-03-2021 11:26-0400 Systolic blood pressure 128 mm[Hg] Monika [employer] Fallon Work Phone: [facility] [employer] 250 DO Work Phone: 05-03-2021 11:21-0400 Body height 160.02 cm Monika [place] Work Phone: [facility] 250 DO Work Phone: 05-03-2021 11:21-0400 Body mass index (BMI) [Ratio] 32.77 kg/m2 Ceeen Padmini Fallon Work Phone: [facility] 250 DO Work Phone: 05-03-2021 11:21-0400 Body surface area Derived from formula 1.87 m2 Ceeen M Fallon Work Phone: [facility] 250 DO Work Phone: 05-03-2021 11:21-0400 Body weight 83.92 kg Ceeen [employer] [place] Work Phone: [facility] 250 DO Work Phone: 05-03-2021 11:21-0400 Diastolic blood pressure 93 mm[Hg] Monika [place] Work Phone: [facility] 250 DO Work Phone: 05-03-2021 11:21-0400 Heart rate 63 /min Monika Washington Fallon Work Phone: [facility] 250 DO Work Phone: 05-03-2021 11:21-0400 Systolic blood pressure 156 mm[Hg] Ceeen Padmini Fallon Work Phone: [facility] 250 DO Work Phone: 12-15-2020 12:15-0400 Body height 160.02 cm Nick Acosta Other [employer] Other 12-15-2020 12:15-0400 Body mass index (BMI) [Ratio] 31.53 kg/m2 Nick Acosta Other [employer] Other 12-15-2020 12:15-0400 Body temperature 97.2 [degF] Nick Acosta Other [employer] Other 12-15-2020 12:15-0400 Body weight 80.74 kg Nick Acosta Other [employer] Other 12-15-2020 12:15-0400 Diastolic blood pressure 90 mm[Hg] Nick Acosta Other [employer] Other 12-15-2020 12:15-0400 SaO2% (BldA) [Mass fraction] 97 % Nick Acosta Other [employer] Other 12-15-2020 12:15-0400 Systolic blood pressure 150 mm[Hg] Nick Acosta Other [employer] Other Encounters Encounter Date Encounter Type Care Provider Facility Start: 03-21-2024 End: 03-21-2024 Office outpatient visit 25 minutes Monika Lehman MD Work Phone: [facility] Comment on above: Acute non-recurrent maxillary sinusitis (Primary Dx) Start: 03-21-2024 End: 03-21-2024 ambulatory RUGEN M FALLON Not Available Start: 03-05-2024 End: 03-05-2024 Office outpatient visit 15 minutes Monika Lehman MD Work Phone: [facility] Comment on above: Localized edema (Kellen rigo Dx); Encounter for monitoring diuretic therapy Start: 03-05-2024 End: 03-05-2024 ambulatory RUGEN M FALLON Not Available Start: 02-20-2024 End: 02-20-2024 ambulatory RUGEN M FALLON Not Available Start: 02-20-2024 End: 02-20-2024 Office outpatient visit 25 minutes Monika Lehman MD Work Phone: [facility] Comment on above: Localized swelling o f both lower extremities (Primary Dx); Other emphysema (CMS/HCC); Hereditary ataxia, unspecified (CMS/HCC); Chronic obstructive pulmonary disease, unspecified (CMS/HCC); Chronic kidney disease, stage 3a (HCC) (CMS/HCC); Mixed simple and mucopurulent chronic bronchitis (CMS/HCC) Start: 02-09-2024 End: 02-09-2024 Refill Chhaya Monday INSTRUCTIONAL COORDINATOR Work Phone: [facility] Comment on above: Adjustment disorder with anxiety (CMS/HCC) (Primary Dx); Hypokalemia; Spondylosis without myelopathy or radiculopathy, lumbar region Start: 01-17-2024 End: 01-17-2024 Patient encounter procedure Елена Mg NP Work Phone: [facility] Comment on above: Medicare annual well ness visit, subsequent (Primary Dx); Encounter for vaccination; Neurogenic pain; Central vestibular vertigo; White matter disease; Vascular dementia without behavioral disturbance, psychotic disturbance, mood disturbance, or anxiety, unspecified dementia severity ([facility]/HCC); Cerebrovascular accident (CVA) due to thrombosis of precerebral artery ([facility]/HCC); Chronic pain syndrome; Other emphysema ([facility]/HCC); Carotid stenosis, bilateral; Generalized atherosclerosis; Benign essential hypertension ([facility]/HCC); Constipation, unspecified constipation type; Nonalcoholic fatty liver disease without nonalcoholic steatohepatitis (BISWAS); Irritable bowel syndrome with both constipation and diarrhea; Gastroesophageal reflux disease without esophagitis; Chronic kidney disease, stage 3a (HCC) ([facility]/HCC); B12 deficiency; Acquired hypothyroidism ([facility]/HCC); Vitamin D deficiency; Hyperparathyroidism, unspecified ([facility]/HCC); Seasonal allergies; Dyslipidemia ([facility]/HCC); BPPV (benign paroxysmal positional vertigo), left; Anxiety and depression ([facility]/HCC); Localized edema; Acute serous otitis media, recurrence not specified, unspecified laterality; Muscle cramps Start: 01-17-2024 End: 01-17-2024 Bamboo flowsheet Елена Mg OUTSIDE UPHOLSTERER Work Phone: [facility] Start: 01-17-2024 End: 01-17-2024 Bamboo flowsheet Елена Mg OUTSIDE UPHOLSTERER Work Phone: [facility] Start: 01-17-2024 End: 01-17-2024 ambulatory ЕЛЕНА MG Not Available Start: 01-13-2024 End: 01-13-2024 Telephone encounter Елена Mg OUTSIDE UPHOLSTERER Work Phone: [facility] Start: 12-20-2023 End: 12-20-2023 ambulatory ЕЛЕНА MG Not Available Start: 12-20-2023 End: 12-20-2023 Office outpatient visit 25 minutes Елена Mg OUTSIDE UPHOLSTERER Work Phone: [facility] Comment on above: Chronic kidney disea se, stage 3b (HCC) ([facility]/HCC) (Primary Dx); Adjustment disorder with anxiety ([facility]/HCC); Neuralgia and neuritis, unspecified; Spondylosis without myelopathy or radiculopathy, lumbar region; Hypothyroidism, unspecified (CMS/HCC); Nonalcoholic fatty liver disease without nonalcoholic steatohepatitis (BISWAS); Polyneuropathy; Peripheral polyneuropathy; Vitamin D deficiency; Abnormal glucose tolerance test; Dyslipidemia (CMS/HCC); Excessive cerumen in ear canal, left Start: 08-07-2023 End: 08-07-2023 ambulatory MONIKA Washington F[place]ON Not Available Start: 08-07-2023 End: 01-17-2024 Assay of hemosiderin, quant Елена Mg OUTSIDE UPHOLSTERER Work Phone: [facility] Start: 08-07-2023 Patient encounter procedure Елена Mg OUTSIDE UPHOLSTERER Work Phone: [facility] Start: 07-21-2023 End: 07-21-2023 ambulatory [facility] Ambulatory Start: 07-21-2023 End: 07-21-2023 Office outpatient visit 15 minutes Daniel Ma MD Work Phone: [facility] Comment on above: Essential hypertensi on (Primary Dx) Start: 07-18-2023 End: 07-18-2023 ambulatory AMAN QUIROZ Not Available Start: 07-04-2023 End: 07-04-2023 ambulatory RONDA Washington HEMMER Not Available Start: 04-24-2023 End: 04-24-2023 ambulatory MONIKA Washington FALLON Not Available Start: 04-11-2023 End: 04-12-2023 ambulatory ALEAH PIERCE Not Available Start: 03-24-2023 End: 03-24-2023 ambulatory Aleah Pierce PT Work Phone: [facility] Comment on above: Cervical paraspinal muscle spasm (Primary Dx); Polyneuropathy; Central vestibular vertigo; Unsteadiness on feet Start: 03-24-2023 End: 03-24-2023 Patient encounter procedure Aman Quiroz MD Work Phone: [facility] Comment on above: Numbness (Primary Dx ) Start: 01-20-2023 End: 01-20-2023 Office outpatient visit 15 minutes Daniel Ma MD Work Phone: [facility] Comment on above: Essential hypertensi on (Primary Dx) Start: 01-20-2023 End: 01-20-2023 ambulatory [facility] Ambulatory Start: 11-21-2022 End: 11-21-2022 ambulatory [facility] Ambulatory Start: 11-21-2022 End: 11-21-2022 Office outpatient visit 25 minutes Elinor Raman MD Work Phone: [facility] Comment on above: Former smoker (Prima ry Dx); Essential hypertension; 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); PVC (premature ventricular contraction); Other ill-defined heart diseases Start: 10-25-2022 End: 10-25-2022 ambulatory TAZ TEJEDA Facility:[facility] Start: 10-25-2022 End: 10-25-2022 Subsequent hospital visit by physician Kenton Kapadia MD Work Phone: Gastroenterology Comment on above: Abdominal pain, unsp ecified abdominal location [R10.9] Start: 10-18-2022 Telephone encounter Swathi Verduzco RNmarketing officer Comment on above: Appointment Start: 09-20-2022 Office outpatient vi sit 25 minutes Monika Lehman Work Phone: [facility] 3[address] [place] Work Phone: Start: 09-20-2022 ambulatory [facility] Facility: Start: 05-12-2022 ambulatory Ms. Seema Saldaña Facility: Start: 05-12-2022 Patient encounter procedure Ceepatricia Hamiltona Work Phone: [facility] 250 DO Work Phone: Start: 05-04-2022 ambulatory Ms. Seema Saldaña Facility: Start: 04-21-2022 Telephone encounter Keiko rizzo RN Gastroenterology Comment on above: Orders Start: 04-20-2022 Telephone encounter Debbi ballard APRN.PILOT CAPTAIN Work Phone: Gastroenterology Comment on above: Erroneous encounter- disregard Start: 04-20-2022 End: 04-20-2022 Follow-up encounter Wanda Rosado APRN.PILOT CAPTAIN Work Phone: Colorectal Surgery Comment on above: Follow-up exam (Prim chin Dx) Start: 04-20-2022 End: 04-20-2022 Telemedicine consultation with patient Wanda Rosado APRN.PILOT CAPTAIN Work Phone: [facility] Start: 04-20-2022 End: 04-21-2022 ambulatory WANDA ROSADO Facility:[facility] Start: 04-19-2022 End: 04-19-2022 ambulatory Debbi Hammond APRN.PILOT CAPTAIN Work Phone: Gastroenterology Comment on above: Abdominal pain, unsp ecified abdominal location (Primary Dx); Adenomatous rectal polyp; Adverse effect of treatment, initial encounter Start: 04-19-2022 End: 04-19-2022 Telemedicine consultation with patient Debbi Hammond APRN.PILOT CAPTAIN Work Phone: [facility] Start: 04-11-2022 End: 04-11-2022 ambulatory MONIKA LEHMAN Facility:[facility] Start: 04-10-2022 Orders Only Taz thapa MD Work Phone: Gastroenterology Comment on above: Adenomatous rectal p olyp (Primary Dx) Start: 03-28-2022 Telephone encounter I Fei merritt MD Work Phone: Colorectal Surgery Comment on above: [facility] Start: 03-23-2022 End: 03-24-[address] MONIKA LEHMAN Facility: Start: 03-22-2022 Office outpatient vi sit 15 minutes Monika Lehman Work Phone: [facility] 3 DO Work Phone: Start: 03-22-2022 ambulatory Daniel Ma Facility: Start: 03-10-2022 Telephone encounter I Fei merritt MD Work Phone: Colorectal Surgery Comment on above: [facility] Start: 03-08-2022 Orders Only I Fei Vera MD Work Phone: Colorectal Surgery Comment on above: 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, unspecified part (Primary Dx) Appointment Start: 03-03-2022 End: 03-03-2022 ambulatory MONIKA LEHMAN Facility:[facility] Start: 03-01-2022 Telephone encounter I Fei merritt MD Work Phone: Colorectal Surgery Comment on above: Patient Update [facility] Start: 02-28-2022 Telephone encounter I Fei merritt MD Work Phone: Colorectal Surgery Comment on above: [facility] Start: 02-26-2022 ambulatory Faye Richey RN NURSE STRING LASTER Comment on above: Medication Question Start: 02-24-2022 [...] intubation; Chronic renal impairment, stage 2 (mild) [facility] Returning Patient's Call No Show Start: 02-24-2022 Encounter for other preprocedural examination MONIKA LEHMAN [facility] Start: 02-24-2022 End: 02-24-2022 Preprocedural examination done Pacc Main 2 Work Phone: Pre Anesthesia Start: 02-23-2022 End: 02-23-2022 ambulatory MONIKA LEHMAN Facility:[facility] Start: 01-12-2022 End: 01-12-2022 ambulatory Gareth EVRA Facility:[facility] Start: 01-12-2022 End: 01-12-2022 Patient encounter procedure [...] Start: 12-06-2021 End: 12-06-2021 ambulatory TAZ TEJEDA Facility:[facility] Start: 12-06-2021 End: 12-06-2021 Subsequent hospital visit by physician Kenton Kapadia MD Work Phone: Gastroenterology Comment on above: Diarrhea, unspecifie d type [R19.7] Start: 11-29-2021 Telephone encounter Jessica Green RNmarketing officer Comment on above: Appointment Confirma tion (Pre-procedure instructions) Start: 11-17-2021 End: 11-17-2021 Emergency department patient visit Monika Lehman Facility:[facility] Start: 11-17-2021 End: 11-17-2021 Emergency department patient visit MD Monika Lehman Work Phone: [facility] Start: 11-03-2021 Telephone encounter Taz Tejeda MD Work Phone: Gastroenterology Comment on above: Orders (Egd/Colonosc opy under MAC) Start: 11-01-2021 End: 11-01-2021 ambulatory MONIKA LEHMAN Facility:[facility] Start: 10-29-2021 End: 10-29-2021 ambulatory TAZ TEJEDA Facility:[facility] Start: 10-28-2021 End: 10-28-2021 ambulatory Taz Tejeda MD Work Phone: Gastroenterology Comment on above: Diarrhea, unspecifie d type (Primary Dx); Abdominal pain, unspecified abdominal location; Nausea Start: 10-28-2021 End: 10-28-2021 Telemedicine consultation with patient Taz Tejeda MD Work Phone: [facility] Start: 10-18-2021 End: 10-18-[address] MONIKA LEHMAN Facility: Start: 10-07-2021 Rx Renewal [facility] Work Phone: Start: 09-13-2021 End: 09-14-[address] MONIKA LEHMAN Facility:[facility] Start: 07-15-2021 Chart Update Monika Lehman Work Phone: [facility] 3 DO Work Phone: Start: 07-15-2021 End: 07-15-2021 ambulatory Monika Lehman Facility:[facility] Start: 07-15-2021 End: 07-15-2021 Patient encounter procedure MD Monika Lehman Work Phone: [facility] [employer] Start: 07-08-2021 AUDIT Monika Lehman Work Phone: [facility] 3 DO Work Phone: Start: 07-07-2021 End: 07-08-[address] MONIKA LEHMAN Facility:[facility] Start: 06-14-2021 Office outpatient vi sit 25 minutes Nick Acosta [facility] Vascular Surgery Start: 06-14-2021 End: 06-14-2021 ambulatory Nick Acosta [facility] Other Start: 06-14-2021 End: 06-14-2021 Patient encounter procedure MD Monika Lehman Work Phone: [facility] Start: 05-03-2021 Office outpatient vi sit 25 minutes Monika Lehman Work Phone: [facility] 250 DO Work Phone: Start: 12-15-2020 End: 12-15-2020 ambulatory Nick Acosta Other [facility] [place] Other Start: 12-15-2020 Office outpatient vi sit 25 minutes Nick Acosta [facility] Vascular Surgery Echocardiogram normal Monika [place] Work Phone: [facility] 250 DO Work Phone: Procedures Date Procedure [...] Specimen Type: BLOOD SPEC IMEN Ordering Facility: [facility] Address: [address] [place] [address] Performed By: #### T [id number] #### [facility] CLIA [id number] [place] [address] [facility] [place] Start: 12-06-2021 Esophagogastroduodenoscopy transoral diagnostic [...] Phone: Start: 08-14-2018 Echocardiography Appendectomy Rugen M [place] Work Phone: Cholecystectomy Ceeen M [place] Work Phone: Operation on ovary Rugen M A lda Work Phone: Operation on uterus Ceeen M Fallon Work Phone: Tonsillectomy and adenoidectomy Ceeen M Fallon Work Phone: Total colonoscopy Monika Bush Work Phone: Comment on above: Dr Olsen [facility]; Plan of Treatment Date Care Activity Detail Author Start: 10-25-2032 Screening for malignant neoplasm of colon [facility] Start: 10-26-2027 Screening for malignant neoplasm of colon Sigmoidoscopy [facility] Start: 02-24-2025 DIABETES SCREEN DIABETES SCREEN [facility] Start: 02-24-2025 Diabetes Screening Diabetes Screening [facility] Start: 01-13-2025 Screening for malignant neoplasm of breast Mammogram [facility] Comment on above: Postponed from 1989 (Patient Refus ed) Start: 12-18-2024 Pneumococcal Vaccine: 65+ Years (1 of 2 - PCV) Pneumococcal Vaccine: 65+ Years (1 of 2 - PCV) [facility] Comment on above: Postponed from [birth year]/09/1956 (Patient Refus ed) Start: 10-29-2024 DIABETES SCREEN DIABETES SCREEN [facility] Start: 03-05-2024 End: 03-05-2025 Comprehensive metabolic 2000 panel - Serum or Plasma Comprehensive metabolic panel Lab Routine Localized edema Encounter for monitoring diuretic therapy Expected: 03/05/2024 (Approximate), Expires: 03/05/2025 [facility] Work Phone: Comment on above: Expected: 03/05/2024 (Approximate), Expi res: 03/05/2025 Start: 02-20-2024 End: 02-20-2024 Patient encounter procedure 02/20/2024 2:00 PM EST Office Visit [facility] [address] [facility] [address] [place] [id number] Monika Lehman MD [address] [facility] [address] [place], [place] [id number] [facility] Start: 02-13-2024 Influenza vaccination Influenza Vaccine (#1) [facility] Comment on above: Postponed from 10/15/2023 (Patient Refus ed) Start: 01-17-2024 End: 01-17-2024 Patient encounter procedure [facility] Comment on above: Arrived Start: 12-27-2023 End: 12-27-2023 Patient encounter procedure 12/27/2023 1:00 PM EST Office Visit [facility] [address] [place] [phone] Елена Mg, OUTSIDE UPHOLSTERER [address] [place] [address] [facility] Start: 12-20-2023 End: 12-19-2024 25-hydroxyvitamin D3 [Mass/volume] in Serum or Plasma Vitamin D 25 hydroxy Lab Routine Vitamin D deficiency Expected: 12/20/2023 (Approximate), Expires: 12/19/2024 [facility] Comment on above: Expected: 12/20/2023 (Approximate), Expi res: 12/19/2024 Start: 12-20-2023 End: 12-19-2024 CBC panel - Blood by Automated count CBC Lab Routine Chronic kidney disease, stage 3b (HCC) ([facility]) Expected: 12/20/2023 (Approximate), Expires: 12/19/2024 [facility] Comment on above: Expected: 12/20/2023 (Approximate), Expi res: 12/19/2024 Start: 12-20-2023 End: 12-19-2024 Hemoglobin A1c/Hemoglobin.total in Blood Hemoglobin A1c Lab Routine Abnormal glucose tolerance test Expected: 12/20/2023 (Approximate), Expires: 12/19/2024 [facility] Comment on above: Expected: 12/20/2023 (Approximate), Expi res: 12/19/2024 Start: 12-20-2023 End: 12-19-2024 Lipid 1996 panel - Serum or Plasma Lipid panel Lab Routine Dyslipidemia ([facility]/HCC) Expected: 12/20/2023 (Approximate), Expires: 12/19/2024 [facility] Comment on above: Expected: 12/20/2023 (Approximate), Expi res: 12/19/2024 Start: 12-20-2023 End: 12-19-2024 Thyrotropin [Units/volume] in Serum or Plasma TSH Lab Routine Hypothyroidism, unspecified ([facility]/HCC) Expected: 12/20/2023 (Approximate), Expires: 12/19/2024 [facility] Work Phone: Comment on above: Expected: 12/20/2023 (Approximate), Expi res: 12/19/2024 Start: 12-15-2023 Influenza vaccination Influenza Vaccine (#1) [...] (Other Patient Reasons) Start: 10-26-2023 Colonoscopy Colonoscopy [facility] Start: 10-26-2023 Colorectal Cancer Screening Colorectal Cancer Screening [facility] Start: 10-15-2023 Influenza vaccination Influenza Vaccine (Season Ended) [facility] Start: 07-21-2023 End: 07-20-2024 Basic metabolic 2000 panel - Serum or Plasma Basic Metabolic Panel Lab Routine Essential hypertension Expected: 07/21/2023 (Approximate), Expires: 07/20/2024 [facility] Service Area Work Phone: Comment on above: Expected: 07/21/2023 (Approximate), Expi res: 07/20/2024 Start: 06-26-2023 End: 06-26-2023 Patient encounter procedure 06/26/2023 11:00 AM EDT Office Visit [facility] [address] [facility] [address] [place] [phone] Monika Lehman MD [address] [facility] [address] [place] [address] [facility] Start: 06-15-2023 Medicare Annual Wellness (AWV) Medicare Annual Wellness (AWV) [facility] Start: 05-08-2023 FUV, Provider: Elinor Raman, Status: Pen, Time: 1:00 PM FUV, Provider: Elinor Raman, Status: Pen, Time: 1:00 PM [place] [address] DO Work Phone: Start: 05-08-2023 End: 05-08-2023 Patient encounter procedure 05/08/2023 1:00 PM EDT Office Visit [facility] [address] [place] [address] Elinor Raman MD [address] [facility] [address] [place] [address] [facility] Start: 04-24-2023 End: 04-24-2023 Patient encounter procedure 04/24/2023 1:00 PM EDT Office Visit [facility] [address] [facility] [address] [place] [phone] Monika Lehman MD [address] [facility] [address] [place] [address] [facility] Start: 04-11-2023 End: 04-11-2023 Patient encounter procedure 04/11/2023 4:45 PM EST Office Visit [facility] [address] [place] [address] Aman Quiroz MD [address] [facility] [address] [place], [place] [id number] [facility] Start: 03-03-2023 Colonoscopy COLONOSCOPY [facility] Start: 03-03-2023 COLORECTAL CANCER SCREENING COLORECTAL CANCER SCREENING [facility] Start: 02-24-2023 HEMOGLOBIN/HEMATOCRIT HEMOGLOBIN/HEMATOCRIT [facility] Start: 02-24-2023 SERUM CREATININE SERUM CREATININE [facility] Start: 01-20-2023 End: 01-21-2024 Basic metabolic 2000 panel - Serum or Plasma Basic Metabolic Panel Lab Routine Essential hypertension Expected: 01/20/2023 (Approximate), Expires: 01/21/2024 [facility] Service Area Work Phone: Comment on above: Expected: 01/20/2023 (Approximate), Expi res: 01/21/2024 Start: 01-20-2023 FUV, Provider: Daniel Ma, Status: Pen, Time: 11:20 AM FUV, Provider: Daniel Ma, Status: Pen, Time: 11:20 AM -[facility] Work Phone: Start: 01-20-2023 End: 01-20-2023 Patient encounter procedure 01/20/2023 11:20 AM EST Office Visit [facility] [address] [place] [phone] [place] [address] [place] [address] [facility] Start: 12-06-2022 Colonoscopy COLONOSCOPY [facility] Start: 12-06-2022 COLORECTAL CANCER SCREENING COLORECTAL CANCER SCREENING [facility] Start: 11-22-2022 End: 11-23-2023 Comprehensive metabolic 2000 panel - Serum or Plasma Comprehensive metabolic panel Lab Routine Essential hypertension Expected: 11/22/2022 (Approximate), Expires: 11/23/2023 [facility] Work Phone: Comment on above: Expected: 11/22/2022 (Approximate), Expi res: 11/23/2023 Start: 11-22-2022 End: 11-23-2023 Lipid 1996 panel - Serum or Plasma Lipid panel Lab Routine Essential hypertension Expected: 11/22/2022 (Approximate), Expires: 11/23/2023 [facility] Work Phone: Comment on above: Expected: 11/22/2022 (Approximate), Expi res: 11/23/2023 Start: 11-21-2022 End: 11-21-2024 NM Heart Perfusion W stress and W radionuclide IV Nuclear Stress Test Cardiac Nuclear Medicine Routine Essential hypertension 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) Other ill-defined heart diseases Expected: 11/21/2022 (Approximate), Expires: 11/21/2024 [facility] Work Phone: Comment on above: Expected: 11/21/2022 (Approximate), Expi res: 11/21/2024 Start: 11-21-2022 End: 11-21-2024 US Heart Transthoracic Transthoracic Echo (TTE) Complete Echocardiography Routine Essential hypertension 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) PVC (premature ventricular contraction) Expected: 11/21/2022 (Approximate), Expires: 11/21/2024 [facility] Service Area Work Phone: Comment on above: Expected: 11/21/2022 (Approximate), Expi res: 11/21/2024 Start: 10-29-2022 HEMOGLOBIN/HEMATOCRIT HEMOGLOBIN/HEMATOCRIT [facility] Start: 10-29-2022 SERUM CREATININE SERUM CREATININE [facility] Start: 10-14-2022 COVID-19 Vaccine () COVID-19 Vaccine () [facility] Start: 10-14-2022 Influenza vaccination [facility] Start: 09-20-2022 FUV, Provider: Daniel Ma, Status: Pen, Time: 12:50 PM FUV, Provider: Daniel Ma, Status: Pen, Time: 12:50 PM [facility] 3 DO Work Phone: Start: 05-04-2022 End: 11-04-2022 COLONOSCOPY DIAGNOSTIC COLONOSCOPY DIAGNOSTIC Endoscopy Routine Diarrhea, unspecified type Expected: 05/04/2022, Expires: 11/04/2022 [facility] Work Phone: Comment on above: Expected: 05/04/2022, Expires: 3 Start: 05-04-2022 End: 11-04-2022 EGD DIAGNOSTIC EGD DIAGNOSTIC Endoscopy Routine Abdominal pain, unspecified abdominal location Expected: 05/04/2022, Expires: 11/04/2022 [facility] Work Phone: Comment on above: Expected: 05/04/2022, Expires: 3 Start: 04-25-2022 FUV, Provider: Seema Spencer, Status: Pen, Time: 10:30 AM FUV, Provider: Seema Spencer, Status: Pen, Time: 10:30 AM [facility] 250 DO Work Phone: Start: 04-19-2022 FUV, Provider: Deshaun Paniagua, Status: Pen, Time: 10:30 AM FUV, Provider: Deshaun Paniagua, Status: Pen, Time: 10:30 [facility] Work Phone: Start: 04-03-2022 DIABETES SCREEN DIABETES SCREEN [facility] Start: 02-13-2022 ADVANCE DIRECTIVE DISCUSSION ADVANCE DIRECTIVE DISCUSSION [facility] Start: 01-18-2022 FUV, Provider: Daniel Ma, Status: Pen, Time: 1:00 PM FUV, Provider: Daniel Ma, Status: Pen, Time: 1:00 PM [facility] 250 DO Work Phone: Start: 01-04-2022 End: 03-06-2022 Carcinoembryonic Ag [Mass/volume] in Serum or Plasma CEA BLD Lab Routine Neoplasm of uncertain behavior of colon Expected: 01/04/2022, Expires: 03/06/2022 [facility] Work Phone: Comment on above: Expected: 01/04/2022, Expires: 3 Start: 10-28-2021 End: 12-28-2021 CBC panel - Blood by Automated count CBC Lab Routine Abdominal pain, unspecified abdominal location Diarrhea, unspecified type Expected: 10/28/2021, Expires: 12/28/2021 [facility] Work Phone: Comment on above: Expected: 10/28/2021, Expires: 2 Start: 10-28-2021 End: 12-28-2021 CELIAC SCREEN WITH REFLEX CELIAC SCREEN WITH REFLEX Lab Routine Diarrhea, unspecified type Expected: 10/28/2021, Expires: 12/28/2021 [facility] Work Phone: Comment on above: Expected: 10/28/2021, Expires: 2 Start: 10-28-2021 End: 12-28-2021 Comprehensive metabolic 2000 panel - Serum or Plasma COMP METABOLIC PANEL Lab Routine Abdominal pain, unspecified abdominal location Diarrhea, unspecified type Expected: 10/28/2021, Expires: 12/28/2021 [facility] Work Phone: Comment on above: Expected: 10/28/2021, Expires: 2 Start: 10-28-2021 End: 12-28-2021 Thyrotropin [Units/volume] in Serum or Plasma TSH BLD Lab Routine Abdominal pain, unspecified abdominal location Diarrhea, unspecified type Expected: 10/28/2021, Expires: 12/28/2021 [facility] Work Phone: Comment on above: Expected: 10/28/2021, Expires: 2 Start: 10-14-2021 Influenza vaccination INFLUENZA (#1) [facility] Start: 07-20-2021 FUV, Provider: Daniel Ma, Status: Pen, Time: 1:40 PM FUV, Provider: Daniel Ma, Status: Pen, Time: 1:40 PM [place] [address] DO Work Phone: Start: 05-15-2021 COVID-19 VACCINE (4 - Booster for Pfizer series) COVID-19 VACCINE (4 - Booster for Pfizer series) [facility] Start: 03-11-2021 COVID-19 VACCINE (4 - Booster for Pfizer series) COVID-19 VACCINE (4 - Booster for Pfizer series) [facility] Start: 03-11-2021 COVID-19 VACCINE (4 - Pfizer series) COVID-19 VACCINE (4 - Pfizer series) [facility] Start: 02-13-2021 ADVANCE DIRECTIVE DISCUSSION ADVANCE DIRECTIVE DISCUSSION [facility] Start: 02-13-2021 DEPRESSION ASSESSMENT DEPRESSION ASSESSMENT [facility] Start: 2014 BONE DENSITY BONE DENSITY [facility] Start: 2014 Bone Density Screening Bone Density Screening [facility] Start: 2014 Pneumococcal Vaccine: 65+ (1 - PCV) Pneumococcal Vaccine: 65+ (1 - PCV) [facility] Start: 2014 PNEUMOCOCCAL: 65+ (1 - PCV) PNEUMOCOCCAL: 65+ (1 - PCV) [facility] Start: 2009 Hepatitis B Vaccines (1 of 3 - Risk 3-dose series) Hepatitis B Vaccines (1 of 3 - Risk 3-dose series) [facility] Start: 2009 RSV patients and/or patients aged 60+ years (1 - 1-dose 60+ series) RSV patients and/or patients aged 60+ years (1 - 1-dose 60+ series) [facility] Start: 12-09-1999 SHINGRIX VACCINE (1 of 2) SHINGRIX VACCINE (1 of 2) [facility] Start: 12-09-1999 Zoster Vaccines (1 of 2) Zoster Vaccines (1 of 2) [facility] Start: 1994 COLOGUARD (FIT-DNA) COLOGUARD (FIT-DNA) [facility] Start: 1994 Colonoscopy COLONOSCOPY [facility] Start: 1994 COLORECTAL CANCER SCREENING COLORECTAL CANCER SCREENING [facility] Start: [address] COLONOGRAPHY [facility] Start: 1994 FECAL OCCULT BLOOD FECAL OCCULT BLOOD [facility] Start: 1994 Lipid 1996 panel - Serum or Plasma Lipid Screening [facility] Start: 1994 LIPID SCREEN LIPID SCREEN [facility] Start: 1994 SIGMOIDOSCOPY SIGMOIDOSCOPY [facility] Start: 1989 Mammography [facility] Start: 1989 Screening for malignant neoplasm of breast Mammogram [facility] Start: 12-09-1971 DTaP/Tdap/Td Vaccines (1 - Tdap) DTaP/Tdap/Td Vaccines (1 - Tdap) [facility] Start: 1968 Hepatitis A Vaccines (1 of 2 - Risk 2-dose series) Hepatitis A Vaccines (1 of 2 - Risk 2-dose series) [facility] Start: 1968 Urine microalbumin profile [facility] Start: 12-09-1967 ANNUAL PCP TEAM CHRONIC DISEASE VISIT ANNUAL PCP TEAM CHRONIC DISEASE VISIT [facility] Start: 12-09-1967 BP CONTROLLED (<130/80) BP CONTROLLED (<130/80) [facility] Start: 12-09-1967 HEPATITIS C SCREENING HEPATITIS C SCREENING [facility] Start: 12-09-1967 Hepatitis C screening Hepatitis C Screening [facility] Start: 1961 Adult depression screening assessment DEPRESSION SCREENING [facility] Start: 12-09-1955 Pneumococcal Vaccine: 65+ Years (1 - PCV) Pneumococcal Vaccine: 65+ Years (1 - PCV) [facility] Start: 12-09-1955 Pneumococcal Vaccine: 65+ Years (1 of 2 - PCV) Pneumococcal Vaccine: 65+ Years (1 of 2 - PCV) [facility] Start: 1949 Lipid panel Lipid Panel [facility] Start: 1949 Screening for malignant neoplasm of colon [facility] Start: 1949 Screening for osteoporosis Bone Density Scan [facility] Start: 1949 Thyroid stimulating hormone measurement TSH Level [facility] Start: 1949 Yearly Adult Physical Yearly Adult Physical [facility] Calprotectin [Mass/m ass] in Stool CALPROTECTIN,FECAL Lab Routine Abdominal pain, unspecified abdominal location Diarrhea, unspecified type Ordered: 10/28/2021 [facility] Work Phone: Comment on above: Ordered: 10/28/2021 Calprotectin [Mass/m ass] in Stool CALPROTECTIN,FECAL Lab Routine Adenomatous rectal polyp Ordered: 04/19/2022 [facility] Work Phone: Comment on above: Ordered: 04/19/2022 Clostridioides diffi cile toxin genes [Presence] in Stool by VERONICA with probe detection C. DIFFICILE PCR Lab Routine Abdominal pain, unspecified abdominal location Diarrhea, unspecified type Ordered: 10/28/2021 [facility] Work Phone: Comment on above: Ordered: 10/28/2021 End: 10-28-2022 COLONOSCOPY DIAGNOSTIC COLONOSCOPY DIAGNOSTIC Endoscopy Routine Abdominal pain, unspecified abdominal location Diarrhea, unspecified type 1 Occurrences starting 10/28/2021 until 10/28/2022 [facility] Work Phone: Comment on above: 1 Occurrences starting 10/28/2021 until 10/28/2022 End: 04-10-2023 COLONOSCOPY DIAGNOSTIC COLONOSCOPY DIAGNOSTIC Endoscopy Routine Adenomatous rectal polyp 1 Occurrences starting 04/10/2022 until 04/10/2023 [facility] Work Phone: Comment on above: 1 Occurrences starting 04/10/2022 until 04/10/2023 End: 05-19-2023 Ct abdomen & pelvis w/contrast material CT ENTEROGRAPHY W IVCON Radiology Routine Adverse effect of treatment, initial encounter Abdominal pain, unspecified abdominal location 1 Occurrences starting 04/19/2022 until 05/19/2023 [facility] Work Phone: Comment on above: 1 Occurrences starting 04/19/2022 until 05/19/2023 End: 10-28-2022 EGD DIAGNOSTIC EGD DIAGNOSTIC Endoscopy Routine Abdominal pain, unspecified abdominal location Diarrhea, unspecified type 1 Occurrences starting 10/28/2021 until 10/28/2022 [facility] Work Phone: Comment on above: 1 Occurrences starting 10/28/2021 until 10/28/2022 Patient Education Hypokalemia Ab dominal Pain, Adult ED [facility] Work Phone: Patient referral [facility] Work Phone: SURGICAL PATHOLOGY [facility] Work Phone: Comment on above: Release Upon Ordering for 1 Occurrences starting 12/06/2021, 1 completed SURGICAL PATHOLOGY [facility] Work Phone: Comment on above: Release Upon Ordering for 1 Occurrences starting 10/25/2022, [facility] Immunizations Immunization Date Immunization Notes Care Provider [facility] 01-17-2024 Influenza, High-dose Seasonal, Quadrivalent, Preservative Free Елена Mg NP Work Phone: [facility] 03-23-2022 Fluzone High-Dose Quadrivalent 0.7 ML Intramuscular Suspension Prefilled Syringe Monika Lehman Work Phone: [facility] 250 DO Work Phone: 03-23-2022 influenza virus vaccine, unspecified formulation Elinor Raman MD Work Phone: [facility] Work Phone: 01-14-2021 Pfizer-BioNTDatacastle COVID-19 Vacc 30 MCG/0.3ML Intramuscular Suspension Rugen M Fallon Work Phone: [place] [address] DO Work Phone: 12-04-2020 influenza, injectabl e, quadrivalent, preservative free Rugen Padmini [place] Work Phone: [place] [address] DO Work Phone: 12-04-2020 influenza virus vaccine, unspecified formulation Kenton Kapadia MD Work Phone: [facility] 04-15-2020 Pfizer-BioNTech COVID-19 Vacc 30 MCG/0.3ML [facility] Work [facility]: [place] [address] DO Work Phone: 03-24-2020 Pfizer-BioNTech COVID-19 Vacc 30 MCG/0.3ML Intramuscular Susp[facility] Work Phone: [place] [address] DO Work Phone: 01-16-2020 Fluad Quadrivalent 0 .5 ML Intramuscular Prefilled [facility] Work Phone: [place] [address] DO Work Phone: 01-16-2020 influenza, injectabl e, quadrivalent, preservative free Aman Quiroz MD Work Phone: [facility] 11-14-2019 influenza virus vaccine, unspecified formulation Rugen M Fallon Work Phone: [place] [address] DO Work Phone: 11-14-2019 influenza, seasonal, injectable Elinor Raman MD Work Phone: [facility] Work Phone: 12-21-2018 Influenza, injectabl e, Madin Jeanette Canine Kidney, quadrivalent with preservative Aman Quiroz MD Work Phone: [facility] 12-21-2018 influenza, injectabl e, madin jeanette canine kidney, preservative free Monika Lehman Work Phone: [facility] 250 DO Work Phone: 11-13-2018 influenza virus vaccine, unspecified formulation Monika Lehman Work Phone: [facility] 250 DO Work Phone: Payers Date Payer Category Payer Self-pay [id number] 2016 [facility] Mem er [id number] 2016 Unknown 2014 Medicare [id number] 1959 Medicare [id number] 1959 Unknown [id number] 1949 Unknown [id number] [id number] .593 1949 Unknown [id number] 2.16840.1.404042.3.579.2 .593 1949 Unknown [id number] 2.16.840.1.366991.3.579.2 .593 1949 Unknown [id number] 2.16.840.1.570138.3.579.2 .593 1949 Unknown [id number] 2.16.840.1.225412.3.579.2 .356 1949 Unknown [id number] 2.16.840.1.479404.3.579.2 .356 1949 Unknown [id number] 2.16.840.1.793602.3.579.2 .356 1949 Unknown [id number] 2.16.840.1.310763.3.579.2 .356 1949 Unknown [id number] 2.16.840.1.164858.3.579.2 .1244 1949 Unknown [id number] 2.16.840.1.564163.3.579.2 .1244 1949 Unknown [id number] 2.16.840.1.773825.3.579.2 .1244 1949 Unknown [id number] 2.16.840.1.224684.3.579.2 .1259 1949 Unknown [id number] 2.16.840.1.324993.3.579.2 .1259 1949 Unknown [id number] 2.16.840.1.312551.3.579.2 .1259 1949 Unknown [id number] 2.16.840.1.310741.3.579.2 .1259 1949 Unknown [id number] 2.16.840.1.148214.3.579.2 .1259 1949 Unknown [id number] 2.16.840.1.806958.3.579.2 .1259 1949 Unknown [id number] 2.16.840.1.253715.3.579.2 .1259 1949 Unknown [id number] 2.16.840.1.084158.3.579.2 .1259 1949 Unknown [id number] 2.16.840.1.641350.3.579.2 .1259 1949 Unknown [id number] 2.16.840.1.415439.3.579.2 .1259 1949 Unknown [id number] 2.16.840.1.454626.3.579.2 .1259 1949 Unknown [id number] 2.16.840.1.362477.3.579.2 .1259 Unknown [id number] 2.16.840.1.450933.3.579.2 .531 Unknown [id number] 2.16.840.1.426276.3.579.2 .531 Unknown [id number] 2.16.840.1.523079.3.579.2 .531 Social History Date Type Detail Facility Start: 02-24-2022 End: 09-19-2022 Caffeine use Caffeine use [facility] Other Comment on above: 1/2 CAN OF POP DAILY 2-3 CUPS OF HOT CHOCOLATE DAILY; Start: 1950 Sex Assigned At Female [facility] Start: 02-24-2022 End: 09-19-2022 Sex Assigned At [facility] Other Tobacco smoking stat [facility] Tobacco smoking consumption unknown [facility] Start: 1950 Sex Assigned At Not on file C [facility] Start: 10-18-2021 End: 07-21-2023 Exposure to SARS-CoV-2 (event) Not sure [facility] Start: 11-17-2021 [facility] (finding[facility] Start: 12-06-2021 End: 01-17-2024 Tobacco smoking status NHIS Ex-smoker [facility] End: 03-20-2012 History of tobacco use Current smoker [facility] End: 03-20-2012 History of tobacco use Cigarette Smoker [facility] Start: 12-06-2021 End: 01-17-2024 Tobacco use and exposure Smokeless tobacco non-user [facility] Start: 12-06-2021 End: 03-21-2024 Alcohol intake Lifetime non-drinker (finding) [facility] National Score (1-100), lower number is lower risk 73 [facility] Within the last year , have you [...] true [facility] Clinical Notes 12-15-2020 to 03-21-2024 Monika Lehman MD - 03/21/2024 4:02 PM Germain Lehman MD - 03/21/2024 3:30 PM Germain Lehman MD - 03/05/2024 4:30 PM Germain Lehman MD - 02/20/2024 2:25 PM ESTPatient Instructions Note Date & Type Note Facility 03-21-2024 History of Present illness Narrative Associated Problem(s): Acute non-recurrent maxillary sinusitis Add Probiotic to help replenish the good bacteria that are destroyed by the Antibiotics Florastor Florajen Align or try Activia in Yogurt Probiotics reduce the risk of antibiotic induced diarrhea Images from the original note were not included. Subjective Patient ID: Dianelys Womack is a 73 y.o. female who presents for Sinusitis. Pt is now coughing up yellow phlegm, upper chest does hurt, ear pain, very tired, pt has tried zrytec and nasal spray no fever, chills or body aches Pt accidentally put a muscle relaxer spray up her nose yesterday and now the back of her throat has been hurting her Pt BP today is 144/100 pt has not taken BP med today yet Sinusitis This is a new problem. The current episode started in the past 7 days. The problem has been gradually worsening since onset. There has been no fever. The pain is moderate. Associated symptoms include coughing. Pertinent negatives include no chills. The treatment provided no relief. Current Outpatient Medications on File Prior to Visit Medication Sig Dispense Refill albuterol HFA 90 mcg/act inhaler Inhale 2 puffs every 4 (four) hours if needed for wheezing 18 g 0 ALPRAZolam (Xanax) 1 MG tablet TAKE 1 TABLET BY MOUTH IN THE MORNING AND 1 TABLET BEFORE BEDTIME 60 tablet 0 b complex vitamins capsule Take 1 capsule by mouth Daily cetirizine (ZyrTEC) 10 MG tablet 10 mg Daily as needed for allergies. ergocalciferol (Vitamin D2) 1.25 MG (72464 UT) capsule Take 1 capsule (1.25 mg) by mouth 1 (one) time per week 4 capsule 11 folic acid (Folvite) 1 MG tablet Take 1 tablet (1,000 mcg) by mouth Daily 100 tablet 3 furosemide (Lasix) 20 MG tablet Take 1 tablet (20 mg) by mouth Daily 90 tablet 1 gabapentin (Neurontin) 600 MG tablet TAKE 1 TAB BY MOUTH IN THE MORNING, EVENING AND BEFORE BEDTIME 270 tablet 1 ipratropium (Atrovent) 0.06 % nasal spray Administer 2 sprays into each nostril every 8 (eight) hours. levothyroxine (Synthroid, Levoxyl) 200 MCG tablet Take 1 tablet (200 mcg) by mouth in the morning. Take before meals. TAKE 1 TABLET BY MOUTH EVERY MORNING ON AN EMPTY STOMACH,ONLY TAKE 1/2 TABLET ON MONDAY AND MONDAY. 90 tablet 3 magnesium 250 MG tablet 1 (one) time each day at the same time. Misc Natural Products (YumVs Beet Root-Tart Aguilera) 250-0.5 MG chewable tablet Chew Daily as needed (pt does not take this daily, but does take it when she thinks about it.) omeprazole (PriLOSEC) [address] capsule TAKE 1 CAPSULE BY MOUTH EVERY DAY 100 capsule 3 Probiotic Product (PROBIOTIC BLEND PO) Take 1 Capful by mouth Daily spironolactone (Aldactone) 25 MG tablet Take 1 tablet (25 mg) by mouth Daily 90 tablet 0 No current facility-administered medications on file prior to visit. I have reviewed and reconciled the history and medication list with the patient today. Allergies Allergen Reactions Metronidazole Other Reaction(s): Other neuropathy Ciprofloxacin Other and Unknown Octacosanol Unknown Penicillins Unknown and Other Vancomycin Other Reaction(s): Numbness Social History Tobacco Use Smoking status: Former Current packs/day: 0.00 Types: Cigarettes Quit date: 03/20/2012 Years since quittin.0 Smokeless tobacco: Never Vaping Use Vaping status: Never Used Substance Use Topics Alcohol use: Never Drug use: Defer Family History Problem Relation Name Age of Onset Hypertension Mother Heart disease Father Hypertension Sister Coronary artery disease Brother COPD Maternal Grandfather Past Medical History: Diagnosis Date Adrenal cortex atrophy (CMS/HCC) Anxiety Aortic aneurysm (CMS/HCC) infra renal Arthritis Depression (CMS/HCC) HTN (hypertension) (CMS/HCC) Hx of cholecystectomy Hx of tonsillitis Hypercholesterolemia (CMS/HCC) Hypokalemia Proctitis Stroke (CMS/HCC) 2004 Thyroid disease (CMS/HCC) Past Surgical History: Procedure Laterality Date APPENDECTOMY 1968 CATARACT EXTRACTION, BILATERAL CHOLECYSTECTOMY COLONOSCOPY 05/2015 COLONOSCOPY W/ POLYPECTOMY 03/07/2022 COLONOSCOPY W/ POLYPECTOMY 10/25/2022 CT ANGIOGRAM CHEST 07/10/2017 CT ANGIOGRAM CHEST [facility] ESOPHAGOSCOPY / EGD 12/06/2021 and colonoscopy HYSTERECTOMY TONSILLECTOMY Visit Vitals BP 138/88 Pulse 91 Ht 5' 3 Wt 184 lb SpO2 98% BMI 32.59 kg/m Smoking Status Former BSA 1.93 m Review of Systems Constitutional: Negative for chills. Respiratory: Positive for cough. Objective Physical Exam Constitutional: General: She is not in acute distress. Appearance: Normal appearance. HENT: Head: Normocephalic. Nose: Congestion present. Right Turbinates: Enlarged and swollen. Left Turbinates: Enlarged and swollen. Right Sinus: Maxillary sinus tenderness present. Left Sinus: Maxillary sinus tenderness present. Mouth/Throat: Mouth: Mucous membranes are moist. Cardiovascular: Rate and Rhythm: Normal rate and regular rhythm. Pulmonary: Effort: Pulmonary effort is normal. No respiratory distress. Breath sounds: Normal breath sounds. Neurological: General: No focal deficit present. Mental Status: She is alert and oriented to person, place, and time. Psychiatric: Mood and Affect: Mood normal. Assessment/Plan Problem List Items Addressed This Visit Acute non-recurrent maxillary sinusitis - Primary Add Probiotic to help replenish the good bacteria that are destroyed by the Antibiotics Florastor Florajen Align or try Activia in Yogurt Probiotics reduce the risk of antibiotic induced diarrhea Relevant Medications cefTRIAXone (Rocephin) vial 1 g (Completed) lidocaine (Xylocaine) 2 % injection 40 mg (Completed) (Start on 03/21/2024 4:30 PM) No follow-ups on file. documented in this encounter [facility] 03-05-2024 History of Present illness Narrative Images from the original note were not included. Subjective Patient ID: Dianelys Womack is a 73 y.o. female who presents for Leg Swelling. Pt is here for a two week check up regarding he lower leg swelling , pt is doing better swelling has gone down Current Outpatient Medications on File Prior to Visit Medication Sig Dispense Refill albuterol HFA 90 mcg/act inhaler Inhale 2 puffs every 4 (four) hours if needed for wheezing 18 g 0 ALPRAZolam (Xanax) 1 MG tablet TAKE 1 TABLET BY MOUTH IN THE MORNING AND 1 TABLET BEFORE BEDTIME 60 tablet 0 b complex vitamins capsule Take 1 capsule by mouth Daily cetirizine (ZyrTEC) 10 MG tablet 10 mg Daily as needed for allergies. ergocalciferol (Vitamin D2) 1.25 MG (13618 UT) capsule Take 1 capsule (1.25 mg) by mouth 1 (one) time per week 4 capsule 11 folic acid (Folvite) 1 MG tablet Take 1 tablet (1,000 mcg) by mouth Daily 100 tablet 3 furosemide (Lasix) 20 MG tablet Take 1 tablet (20 mg) by mouth Daily 90 tablet 1 gabapentin (Neurontin) 600 MG tablet TAKE 1 TAB BY MOUTH IN THE MORNING, EVENING AND BEFORE BEDTIME 270 tablet 1 ipratropium (Atrovent) 0.06 % nasal spray Administer 2 sprays into each nostril every 8 (eight) hours. levothyroxine (Synthroid, Levoxyl) 200 MCG tablet Take 1 tablet (200 mcg) by mouth in the morning. Take before meals. TAKE 1 TABLET BY MOUTH EVERY MORNING ON AN EMPTY STOMACH,ONLY TAKE 1/2 TABLET ON MONDAY AND MONDAY. 90 tablet 3 magnesium 250 MG tablet 1 (one) time each day at the same time. Misc Natural Products (YumVs Beet Root-Tart Aguilera) 250-0.5 MG chewable tablet Chew Daily as needed (pt does not take this daily, but does take it when she thinks about it.) omeprazole (PriLOSEC) [address] capsule TAKE 1 CAPSULE BY MOUTH EVERY DAY 100 capsule 3 Probiotic Product (PROBIOTIC BLEND PO) Take 1 Capful by mouth Daily spironolactone (Aldactone) 25 MG tablet Take 1 tablet (25 mg) by mouth Daily 90 tablet 0 No current facility-administered medications on file prior to visit. I have reviewed and reconciled the history and medication list with the patient today. Allergies Allergen Reactions Metronidazole Other Reaction(s): Other neuropathy Ciprofloxacin Other and Unknown Octacosanol Unknown Penicillins Unknown and Other Vancomycin Other Reaction(s): Numbness Social History Tobacco Use Smoking status: Former Current packs/day: 0.00 Types: Cigarettes Quit date: 03/20/2012 Years since quittin.9 Smokeless tobacco: Never Vaping Use Vaping status: Never Used Substance Use Topics Alcohol use: Never Drug use: Defer Family History Problem Relation Name Age of Onset Hypertension Mother Heart disease Father Hypertension Sister Coronary artery disease Brother COPD Maternal Grandfather Past Medical History: Diagnosis Date Adrenal cortex atrophy (CMS/HCC) Anxiety Aortic aneurysm (CMS/HCC) infra renal Arthritis Depression (CMS/HCC) HTN (hypertension) (CMS/HCC) Hx of cholecystectomy Hx of tonsillitis Hypercholesterolemia (CMS/HCC) Hypokalemia Proctitis Stroke (CMS/HCC) 2004 Thyroid disease (CMS/HCC) Past Surgical History: Procedure Laterality Date APPENDECTOMY 1968 CATARACT EXTRACTION, BILATERAL CHOLECYSTECTOMY COLONOSCOPY 05/2015 COLONOSCOPY W/ POLYPECTOMY 03/07/2022 COLONOSCOPY W/ POLYPECTOMY 10/25/2022 CT ANGIOGRAM CHEST 07/10/2017 CT ANGIOGRAM CHEST [facility]GAC[facility] ESOPHAGOSCOPY / EGD 12/06/2021 and colonoscopy HYSTERECTOMY TONSILLECTOMY Visit Vitals BP 138/86 Pulse 94 Ht 5' 3 Wt 183 lb SpO2 95% BMI 32.42 kg/m Smoking Status Former BSA 1.92 m Review of Systems Constitutional: Negative. HENT: Negative. Eyes: Negative. Respiratory: Positive for cough. Cardiovascular: Negative. Gastrointestinal: Negative. Genitourinary: Negative. Musculoskeletal: Negative. Skin: Negative. Endocrine: Negative. Objective Physical Exam Constitutional: General: She is not in acute distress. Appearance: Normal appearance. HENT: Head: Normocephalic. Neck: Vascular: No carotid bruit. Cardiovascular: Rate and Rhythm: Normal rate and regular rhythm. Pulmonary: Effort: Pulmonary effort is normal. No respiratory distress. Breath sounds: Normal breath sounds. Musculoskeletal: Right lower leg: No edema. Left lower leg: No edema. Neurological: General: No focal deficit present. Mental Status: She is alert and oriented to person, place, and time. Psychiatric: Mood and Affect: Mood normal. Assessment/Plan Problem List Items Addressed This Visit Edema - Primary Relevant Orders Comprehensive metabolic panel Encounter for monitoring diuretic therapy Relevant Orders Comprehensive metabolic panel No follow-ups on file. documented in this encounter [facility] 02-20-2024 History of Present illness Narrative Associated Problem(s): Chronic kidney disease, stage 3a (HCC) (CMS/HCC) Increase fluids Associated Problem(s): Chronic obstructive pulmonary disease, unspecified (CMS/HCC) Albuterol added Images from the original note were not included. Subjective Patient ID: Dianelys Womack is a 73 y.o. female who presents for questions. Pt states the tizanidine she is not able to take due to it makes her dizzy, and only took one of those Pt states she was not taking the furosemide but she is now also taking this , because of the swelling in her lower legs and ankles Pt was complaining of her ears thumping Current Outpatient Medications on File Prior to Visit Medication Sig Dispense Refill ALPRAZolam (Xanax) 1 MG tablet TAKE 1 TABLET BY MOUTH IN THE MORNING AND 1 TABLET BEFORE BEDTIME 60 tablet 0 b complex vitamins capsule Take 1 capsule by mouth Daily cetirizine (ZyrTEC) 10 MG tablet 10 mg Daily as needed for allergies. ergocalciferol (Vitamin D2) 1.25 MG (49765 UT) capsule Take 1 capsule (1.25 mg) by mouth 1 (one) time per week 4 capsule 11 escitalopram (Lexapro) 20 MG tablet Take 1.5 tablets (30 mg) by mouth in the morning. (Patient not taking: Reported on 01/31/2024) 135 tablet 3 folic acid (Folvite) 1 MG tablet Take 1 tablet (1,000 mcg) by mouth Daily 100 tablet 3 furosemide (Lasix) 20 MG tablet Take 1 tablet (20 mg) by mouth Daily 90 tablet 1 gabapentin (Neurontin) 600 MG tablet TAKE 1 TAB BY MOUTH IN THE MORNING, EVENING AND BEFORE BEDTIME 270 tablet 1 ipratropium (Atrovent) 0.06 % nasal spray Administer 2 sprays into each nostril every 8 (eight) hours. levothyroxine (Synthroid, Levoxyl) 200 MCG tablet Take 1 tablet (200 mcg) by mouth in the morning. Take before meals. TAKE 1 TABLET BY MOUTH EVERY MORNING ON AN EMPTY STOMACH,ONLY TAKE 1/2 TABLET ON MONDAY AND MONDAY. 90 tablet 3 magnesium 250 MG tablet 1 (one) time each day at the same time. omeprazole (PriLOSEC) [address] capsule TAKE 1 CAPSULE BY MOUTH EVERY DAY 100 capsule 3 Probiotic Product (PROBIOTIC BLEND PO) Take 1 capsule by mouth in the morning. [DISCONTINUED] amLODIPine (Norvasc) 10 MG tablet Take 1.5 tablets (15 mg) by mouth Daily 135 tablet 3 [DISCONTINUED] potassium chloride CR (KLOR-CON) 20 MEQ ER tablet Take 1 tablet (20 mEq) by mouth Daily 100 tablet 3 [DISCONTINUED] tiZANidine (Zanaflex) 4 MG tablet Take 1 tablet (4 mg) by mouth every 8 (eight) hours if needed for muscle spasms for up to 10 days (Patient not taking: Reported on 01/31/2024) 30 tablet 0 No current facility-administered medications on file prior to visit. I have reviewed and reconciled the history and medication list with the patient today. Allergies Allergen Reactions Metronidazole Other Reaction(s): Other neuropathy Ciprofloxacin Other and Unknown Octacosanol Unknown Penicillins Unknown and Other Vancomycin Other Reaction(s): Numbness Social History Tobacco Use Smoking status: Former Current packs/day: 0.00 Types: Cigarettes Quit date: 03/20/2012 Years since quittin.9 Smokeless tobacco: Never Vaping Use Vaping status: Never Used Substance Use Topics Alcohol use: Never Drug use: Defer Family History Problem Relation Name Age of Onset Hypertension Mother Heart disease Father Hypertension Sister Coronary artery disease Brother COPD Maternal Grandfather Past Medical History: Diagnosis Date Adrenal cortex atrophy (CMS/HCC) Anxiety Aortic aneurysm (CMS/HCC) infra renal Arthritis Depression (CMS/HCC) HTN (hypertension) (CMS/HCC) Hx of cholecystectomy Hx of tonsillitis Hypercholesterolemia (CMS/HCC) Hypokalemia Proctitis Stroke (CMS/HCC) 2003 Thyroid disease (CMS/HCC) Past Surgical History: Procedure Laterality Date APPENDECTOMY 1968 CATARACT EXTRACTION, BILATERAL CHOLECYSTECTOMY COLONOSCOPY 05/2015 COLONOSCOPY W/ POLYPECTOMY 03/07/2022 COLONOSCOPY W/ POLYPECTOMY 10/25/2022 CT ANGIOGRAM CHEST 07/10/2017 CT ANGIOGRAM CHEST [facility] LEGACY ESOPHAGOSCOPY / EGD 12/06/2021 and colonoscopy HYSTERECTOMY TONSILLECTOMY Visit Vitals BP 124/86 Pulse 90 Ht 5' 3 Wt 186 lb SpO2 99% BMI 32.95 kg/m Smoking Status Former BSA 1.94 m Review of Systems Constitutional: Negative. HENT: Negative. Eyes: Negative. Respiratory: Positive for cough. Cardiovascular: Negative. Gastrointestinal: Negative. Genitourinary: Negative. Musculoskeletal: Negative. Skin: Negative. Endocrine: Negative. Objective Physical Exam Constitutional: General: She is not in acute distress. Appearance: Normal appearance. HENT: Head: Normocephalic. Neck: Vascular: No carotid bruit. Cardiovascular: Rate and Rhythm: Normal rate and regular rhythm. Pulmonary: Effort: Pulmonary effort is normal. No respiratory distress. Breath sounds: Normal breath sounds. Neurological: General: No focal deficit present. Mental Status: She is alert and oriented to person, place, and time. Psychiatric: Mood and Affect: Mood normal. Assessment/Plan Problem List Items Addressed This Visit Chronic kidney disease, stage 3a (HCC) (CMS/HCC) Increase fluids Chronic obstructive pulmonary disease, unspecified (CMS/HCC) Albuterol added Relevant Medications albuterol HFA 90 mcg/act inhaler Other Visit Diagnoses Localized swelling of both lower extremities - Primary Relevant Medications spironolactone (Aldactone) 25 MG tablet Hereditary ataxia, unspecified (CMS/HCC) Follow up in about 2 weeks (around 03/05/2024). documented in this encounter [facility] 01-17-2024 History of Present illness Narrative Images from the original note were not included. Subjective Patient ID: Dianelys Womack is a 73 y.o. female who presents for a Medicare Wellness. Dianelys presents today for a medicare wellness. Current Outpatient Medications on File Prior to Visit Medication Sig Dispense Refill ALPRAZolam (Xanax) 1 MG tablet TAKE 1 TABLET BY MOUTH IN THE MORNING AND 1 TABLET BEFORE BEDTIME 60 tablet 0 amLODIPine (Norvasc) 10 MG tablet Take 1.5 tablets (15 mg) by mouth Daily 135 tablet 3 B Complex Vitamins (VITAMIN B COMPLEX 100 IJ) Take 100 Int'l Units by mouth in the morning. cetirizine (ZyrTEC) 10 MG tablet 10 mg Daily as needed for allergies. ergocalciferol (Vitamin D2) 1.25 MG (57544 UT) capsule Take 1 capsule (1.25 mg) by mouth 1 (one) time per week 4 capsule 11 escitalopram (Lexapro) 20 MG tablet Take 1.5 tablets (30 mg) by mouth in the morning. 135 tablet 3 folic acid (Folvite) 1 MG tablet Take 1 tablet (1,000 mcg) by mouth Daily 100 tablet 3 furosemide (Lasix) 20 MG tablet Take 1 tablet (20 mg) by mouth Daily gabapentin (Neurontin) 600 MG tablet TAKE 1 TAB BY MOUTH IN THE MORNING, EVENING AND BEFORE BEDTIME 270 tablet 1 ipratropium (Atrovent) 0.06 % nasal spray Administer 2 sprays into each nostril every 8 (eight) hours. levothyroxine (Synthroid, Levoxyl) 200 MCG tablet Take 1 tablet (200 mcg) by mouth in the morning. Take before meals. TAKE 1 TABLET BY MOUTH EVERY MORNING ON AN EMPTY STOMACH,ONLY TAKE 1/2 TABLET ON MONDAY AND MONDAY. 90 tablet 3 magnesium 250 MG tablet 1 (one) time each day at the same time. omeprazole (PriLOSEC) [address] capsule TAKE 1 CAPSULE BY MOUTH EVERY DAY 100 capsule 3 potassium chloride CR (KLOR-CON) 20 MEQ ER tablet Take 1 tablet (20 mEq) by mouth Daily Probiotic Product (PROBIOTIC BLEND PO) Take 1 capsule by mouth in the morning. traMADol (Ultram) 50 MG tablet Take 1 tablet (50 mg) by mouth every 6 (six) hours if needed for moderate pain 120 tablet 0 No current facility-administered medications on file prior to visit. I have reviewed and reconciled the history and medication list with the patient today. Allergies Allergen Reactions Metronidazole Other Reaction(s): Other neuropathy Ciprofloxacin Other and Unknown Octacosanol Unknown Penicillins Unknown and Other Vancomycin Other Reaction(s): Numbness Social History Tobacco Use Smoking status: Former Current packs/day: 0.00 Types: Cigarettes Quit date: 03/20/2012 Years since quittin.8 Smokeless tobacco: Never Vaping Use Vaping status: Never Used Substance Use Topics Alcohol use: Never Family History Problem Relation Name Age of Onset Hypertension Mother Heart disease Father Hypertension Sister Coronary artery disease Brother COPD Maternal Grandfather Past Medical History: Diagnosis Date Adrenal cortex atrophy (CMS/HCC) Anxiety Aortic aneurysm (CMS/HCC) infra renal Arthritis Depression (CMS/HCC) HTN (hypertension) (CMS/HCC) Hx of cholecystectomy Hx of tonsillitis Hypercholesterolemia (CMS/HCC) Hypokalemia Proctitis Stroke (CMS/HCC) 2003 Thyroid disease (CMS/HCC) Past Surgical History: Procedure Laterality Date APPENDECTOMY 1968 CATARACT EXTRACTION, BILATERAL CHOLECYSTECTOMY COLONOSCOPY 05/2015 COLONOSCOPY W/ POLYPECTOMY 03/07/2022 COLONOSCOPY W/ POLYPECTOMY 10/25/2022 CT ANGIOGRAM CHEST 07/10/2017 CT ANGIOGRAM CHEST [facility] DATA LEGACY ESOPHAGOSCOPY / EGD 12/06/2021 and colonoscopy HYSTERECTOMY TONSILLECTOMY Visit Vitals Smoking Status Former Review of Systems Objective Physical Exam Assessment/Plan No follow-ups on file. Images from the original note were not included. Subjective : Chief Complaint: Dianelys Womack is an 73 y.o. female here for an annual wellness visit. I have reviewed and reconciled the history and medication list with the patient today. Current Outpatient Medications Medication Sig Dispense Refill ALPRAZolam (Xanax) 1 MG tablet TAKE 1 TABLET BY MOUTH IN THE MORNING AND 1 TABLET BEFORE BEDTIME 60 tablet 0 amLODIPine (Norvasc) 10 MG tablet Take 1.5 tablets (15 mg) by mouth Daily 135 tablet 3 cetirizine (ZyrTEC) 10 MG tablet 10 mg Daily as needed for allergies. ergocalciferol (Vitamin D2) 1.25 MG (75100 UT) capsule Take 1 capsule (1.25 mg) by mouth 1 (one) time per week 4 capsule 11 escitalopram (Lexapro) 20 MG tablet Take 1.5 tablets (30 mg) by mouth in the morning. 135 tablet 3 folic acid (Folvite) 1 MG tablet Take 1 tablet (1,000 mcg) by mouth Daily 100 tablet 3 furosemide (Lasix) 20 MG tablet Take 1 tablet (20 mg) by mouth Daily gabapentin (Neurontin) 600 MG tablet TAKE 1 TAB BY MOUTH IN THE MORNING, EVENING AND BEFORE BEDTIME 270 tablet 1 ipratropium (Atrovent) 0.06 % nasal spray Administer 2 sprays into each nostril every 8 (eight) hours. levothyroxine (Synthroid, Levoxyl) 200 MCG tablet Take 1 tablet (200 mcg) by mouth in the morning. Take before meals. TAKE 1 TABLET BY MOUTH EVERY MORNING ON AN EMPTY STOMACH,ONLY TAKE 1/2 TABLET ON MONDAY AND MONDAY. 90 tablet 3 magnesium 250 MG tablet 1 (one) time each day at the same time. omeprazole (PriLOSEC) [address] capsule TAKE 1 CAPSULE BY MOUTH EVERY DAY 100 capsule 3 potassium chloride CR (KLOR-CON) 20 MEQ ER tablet Take 1 tablet (20 mEq) by mouth Daily Probiotic Product (PROBIOTIC BLEND PO) Take 1 capsule by mouth in the morning. traMADol (Ultram) 50 MG tablet Take 1 tablet (50 mg) by mouth every 6 (six) hours if needed for moderate pain 120 tablet 0 No current facility-administered medications for this visit. Review of Systems Constitutional: Negative. HENT: Negative. Eyes: Negative. Respiratory: Negative. Cardiovascular: Negative. Gastrointestinal: Negative. Genitourinary: Negative. Musculoskeletal: Negative. Skin: Negative. Endocrine: Negative. List of current healthcare providers: Patient Care Team: Monika Lehman MD as PCP - General (Family Medicine) Monika Lehman MD as PCP - [facility] [employer] Medicare Annual Visit Over the past 2 weeks, how often have you been bothered by any of the following problems? Little interest or pleasure in doing things: Not at all Feeling down, depressed, or hopeless: Not at all Patient Health Questionnaire-2 Score: 0 Glover Fall Risk History of Falling, Immediate or Within 3 Months: Yes Health Risk Assessment Form Do you need help eating, bathing, using the toilet, dressing, or getting around your home?: No Can you prepare your own meals?: Yes Can you do your own housework without help?: Yes Can you shop for groceries or clothes without help?: Yes Do you exercise for about 20 minutes 3 or more days a week?: Yes How confident are you that you can control and manage most of your health problems?: Very confident Can you mange your money, credit cards and accounts, pay bills and taxes?: Yes Cognitive Screening Three Word Registration: Banana, [place], Chair Clock Drawing: Normal Clock - 2 Three Word Recall: 1/3 words correct - 1 Pain Assessment Pain Score: 5 - Moderate pain Advance Care Planning Do you have a living will?: No Do you have a medical power of ip attorney?: No Objective : BP 122/80 Pulse 69 Resp 17 Ht 5' 3 Wt 184 lb 3.2 oz SpO2 97% BMI 32.63 kg/m No results found. Physical Exam Vitals reviewed. Constitutional: Appearance: Normal appearance. HENT: Head: Normocephalic and atraumatic. Right Ear: Tympanic membrane, ear canal and external ear normal. Left Ear: Tympanic membrane, ear canal and external ear normal. Nose: Nose normal. Mouth/Throat: Mouth: Mucous membranes are moist. Pharynx: Oropharynx is clear. Eyes: Extraocular Movements: Extraocular movements intact. Conjunctiva/sclera: Conjunctivae normal. Pupils: Pupils are equal, round, and reactive to light. Cardiovascular: Rate and Rhythm: Normal rate and regular rhythm. Heart sounds: Normal heart sounds. Pulmonary: Effort: Pulmonary effort is normal. Breath sounds: Normal breath sounds. Abdominal: General: Bowel sounds are normal. Palpations: Abdomen is soft. Musculoskeletal: General: Normal range of motion. Cervical back: Normal range of motion and neck supple. Skin: General: Skin is warm and dry. Neurological: General: No focal deficit present. Mental Status: She is alert and oriented to person, place, and time. Psychiatric: Mood and Affect: Mood normal. Behavior: Behavior normal. Thought Content: Thought content normal. Judgment: Judgment normal. Assessment/Plan : The following health maintenance schedule was reviewed with the patient and provided in printed form in the after visit summary: Health Maintenance Topic Date Due Pneumococcal Vaccine: 65+ Years (1 of 2 - PCV) 12/18/2024 (Originally 12/09/1956) Mammogram 01/13/2025 (Originally 1990) Colorectal Cancer Screening 10/25/2032 Influenza Vaccine Completed 1. Medicare annual wellness visit, subsequent (Primary) 2. Encounter for vaccination Discussed influenza vaccine and its most common side effects with the pt today. - Influenza, high-dose seasonal, quadrivalent, PF (PDY056) (Fluzone High Dose [place] 0.7mL dose) 3. Neurogenic pain Gabapentin continues. She is stable at this time. 4. Central vestibular vertigo Stable. 5. White matter disease Stable. 6. Vascular dementia without behavioral disturbance, psychotic disturbance, mood disturbance, or anxiety, unspecified dementia severity ([facility]) Clock test and 3 word recall completed today. See results. 7. Cerebrovascular accident (CVA) due to thrombosis of precerebral artery ([facility]/HCC) Stable. 8. Chronic pain syndrome Gabapentin and tramadol continue. She is stable at this time. 9. Other emphysema (CMS/HCC) ipratropium (Atrovent) 0.06 % nasal spray continues as ordered, stable. 10. Carotid stenosis, bilateral Stable. 11. Generalized atherosclerosis Stable. 12. Benign essential hypertension (CMS/HCC) Lisinopril and amlodipine continue. Bp stable. No changes. 13. Constipation, unspecified constipation type Stable. 14. Nonalcoholic fatty liver disease without nonalcoholic steatohepatitis ([facility]) Followed per GI. 15. Irritable bowel syndrome with both constipation and diarrhea Probiotic Product (PROBIOTIC BLEND PO). She is followed per GI. 16. Gastroesophageal reflux disease without esophagitis omeprazole (PriLOSEC) [address] capsule, she is followed per GI. 17. Chronic kidney disease, stage 3a (HCC) (CMS/HCC) 01/10/24 WHITE BLOOD CELL COUNT 3.8 - 10.8 Thousand/uL 6.2 6.3 6.18 R 8.51 R RED BLOOD CELL COUNT 3.80 - 5.10 Million/uL 4.76 4.50 4.54 R 4.86 R HEMOGLOBIN 11.7 - 15.5 g/dL 12.7 11.9 11.8 R 12.1 R 12.1 R 13.2 R 13.2 R HEMATOCRIT 35.0 - 45.0 % 40.2 42.0 38.0 R 42.2 R MCV 80.0 - 100.0 fL 84.5 93.3 MCH 27.0 - 33.0 pg 26.7 Low 26.4 Low 26.7 R 27.2 R MCHC 32.0 - 36.0 g/dL 31.6 Low 28.3 Low 31.8 R 31.3 R RDW 11.0 - 15.0 % 14.6 16.8 High PLATELET COUNT 140 - 400 Thousand/uL 225 210 MPV 7.5 - 12.5 fL 10.6 10 11/14/23 Glucose 65 - 99 mg/dL 93 90 CM 93 R, CM 94 R, CM Comment: Fasting reference interval BUN 7 - 25 mg/dL 22 25 Creatinine 0.60 - 1.00 mg/dL 1.15 High 1.34 High EGFR > OR = 60 mL/min/1.73m2 50 Low 42 Low 52 Low R 57 Low R >60 R 64 R, CM 64 R, CM 56 Low Panic R BUN/CREATININE RATIO 6 - 22 (calc) 19 19 Sodium 135 - 146 mmol/L 141 143 Potassium, Bld 3.5 - 5.3 mmol/L 4.2 3.5 Chloride 98 - 110 mmol/L 102 105 Carbon Dioxide 20 - 32 mmol/L 28 30 Calcium 8.6 - 10.4 mg/dL 9.7 9.5 PROTEIN, TOTAL 6.1 - 8.1 g/dL 7.1 6.8 ALBUMIN 3.6 - 5.1 g/dL 4.3 4.0 GLOBULIN 1.9 - 3.7 g/dL (calc) 2.8 2.8 ALBUMIN/GLOBULIN RATIO 1.0 - 2.5 (calc) 1.5 1.4 BILIRUBIN, TOTAL 0.2 - 1.2 mg/dL 0.4 0.5 ALKALINE PHOSPHATASE 37 - 153 U/L 123 134 AST 10 - 35 U/L 19 24 ALT 6 - 29 U/L 11 12 TBH EGFR-NON AF BELGIAN 43 Low 18. B12 deficiency folic acid (Folvite) 1 MG tablet continues as ordered. 19. Acquired hypothyroidism (CMS/HCC) levothyroxine (Synthroid, Levoxyl) 200 MCG tablet TSH 0.40 - 4.50 mIU/L 1.97 20. Vitamin D deficiency Ergocalciferol (Vitamin D2) 1.25 MG continues as ordered. 01/10/24 VITAMIN D,25-OH,TOTAL,IA 30 - 100 ng/mL 19 Low 21. Hyperparathyroidism, unspecified (CMS/HCC) Stable. 22. Seasonal allergies cetirizine (ZyrTEC) 10 MG tablet continues as ordered, stable. 23. Dyslipidemia (CMS/HCC) CHOLESTEROL, TOTAL <200 mg/dL 196 187 HDL CHOLESTEROL > OR = 50 mg/dL 64 66 TRIGLYCERIDES <150 mg/dL 81 102 LDL-CHOLESTEROL mg/dL (calc) 114 High 101 High CM Comment: Reference range: <100 Desirable range <100 mg/dL for primary prevention; <70 mg/dL for patients with CHD or diabetic patients with > or = 2 CHD risk factors. LDL-C is now calculated using the Rico-Piero calculation, which is a validated novel method providing better accuracy than the Friedewald equation in the estimation of LDL-C. Rico TAPIA et al. ALEXUS. 2013;310(19): 3233-0951 (http://education.Bihu.com.com/faq/AVN129) CHOL/HDLC RATIO <5.0 (calc) 3.1 2.8 NON HDL CHOLESTEROL <130 mg/dL (calc) 132 High 121 C 24. BPPV (benign paroxysmal positional vertigo), left Stable. 25. Anxiety and depression (CMS/[facility]) ALPRAZolam (Xanax) 1 MG tablet. Anxiety is stable. 26. Localized edema furosemide (Lasix) 20 MG tablet and potassium chloride CR (KLOR-CON) 20 MEQ ER tablet continue as ordered. Stable. 27. Acute serous otitis media, recurrence not specified, unspecified laterality Discussed diagnosis, use of prednisone and its most common side effects. Instructed to continue as ordered and follow up as needed. - predniSONE (Deltasone) 20 MG tablet; Take 2 tablets (40 mg) by mouth Daily for 5 days Dispense: 10 tablet; Refill: 0 28. Muscle cramps magnesium 250 MG tablet continues as ordered 11/14/23 MAGNESIUM 1.5 - 2.5 mg/dL 1.6 - tiZANidine (Zanaflex) 4 MG tablet; Take 1 tablet (4 mg) by mouth every 8 (eight) hours if needed for muscle spasms for up to 10 days Dispense: 30 tablet; Refill: 0 Advance Care Planning Orders Placed This Encounter Procedures Influenza, high-dose seasonal, quadrivalent, PF (DOI988) (Fluzone High Dose [place] 0.7mL dose) Electronically signed by Елена Mg NP on January 17, 2024 documented in this encounter [facility] 01-17-2024 Instructions Елена Mg NP - 01/17/2024 2:30 PM EST MA[facility] completed today. New orders for prednisone and tizanidine given today. documented in this encounter [facility] 01-13-2024 Telephone encounter Note Requested Prescriptions Signed Prescriptions Disp Refills ergocalciferol (Vitamin D2) 1.25 MG (42526 UT) capsule 4 capsule 11 Sig: Take 1 capsule (1.25 mg) by mouth 1 (one) time per week Authorizing Provider: ЕЛЕНА MG [facility] 01-13-2024 Miscellaneous Notes Requested Prescriptions Signed Prescriptions Disp Refills ergocalciferol (Vitamin D2) 1.25 MG (69413 UT) capsule 4 capsule 11 Sig: Take 1 capsule (1.25 mg) by mouth 1 (one) time per week Authorizing Provider: ЕЛЕНА MG documented in this encounter [facility] 12-20-2023 History of Present illness Narrative Images from the original note were not included. Subjective Patient ID: Dianelys Womack is a 73 y.o. female who presents for No chief complaint on file.. Pt is here for her anxiety medication refill pain med also Current Outpatient Medications on File Prior to Visit Medication Sig Dispense Refill ALPRAZolam (Xanax) 1 MG tablet TAKE 1 TABLET BY MOUTH IN THE MORNING AND 1 TABLET BEFORE BEDTIME 60 tablet 0 amLODIPine (Norvasc) 10 MG tablet Take 1.5 tablets (15 mg) by mouth Daily 135 tablet 3 B Complex Vitamins (VITAMIN B COMPLEX 100 IJ) Take 100 Int'l Units by mouth in the morning. cetirizine (ZyrTEC) 10 MG tablet 10 mg Daily as needed for allergies. escitalopram (Lexapro) 20 MG tablet Take 1.5 tablets (30 mg) by mouth in the morning. 135 tablet 3 folic acid (Folvite) 1 MG tablet Take 1 tablet (1,000 mcg) by mouth in the morning. 100 tablet 3 furosemide (Lasix) 20 MG tablet Take 1 tablet (20 mg) by mouth Daily gabapentin (Neurontin) 600 MG tablet TAKE 1 TAB BY MOUTH IN THE MORNING, EVENING AND BEFORE BEDTIME 270 tablet 1 ipratropium (Atrovent) 0.06 % nasal spray Administer 2 sprays into each nostril every 8 (eight) hours. levothyroxine (Synthroid, Levoxyl) 200 MCG tablet TAKE 1 TABLET BY MOUTH EVERY MORNING ON AN EMPTY STOMACH,ONLY TAKE 1/2 TABLET ON MONDAY AND MONDAY 90 tablet 3 magnesium 250 MG tablet 1 (one) time each day at the same time. omeprazole (PriLOSEC) [address] capsule TAKE 1 CAPSULE BY MOUTH EVERY DAY 100 capsule 3 potassium chloride CR (KLOR-CON) 20 MEQ ER tablet Take 1 tablet (20 mEq) by mouth Daily Probiotic Product (PROBIOTIC BLEND PO) Take 1 capsule by mouth in the morning. traMADol (Ultram) 50 MG tablet Take 1 tablet (50 mg) by mouth every 6 (six) hours if needed for moderate pain 120 tablet 0 No current facility-administered medications on file prior to visit. I have reviewed and reconciled the history and medication list with the patient today. Allergies Allergen Reactions Metronidazole Other Reaction(s): Other neuropathy Ciprofloxacin Other and Unknown Octacosanol Unknown Penicillins Unknown and Other Vancomycin Other Reaction(s): Numbness Social History Tobacco Use Smoking status: Former Current packs/day: 0.00 Types: Cigarettes Quit date: 03/20/2012 Years since quittin.7 Smokeless tobacco: Never Vaping Use Vaping status: Never Used Substance Use Topics Alcohol use: Never Family History Problem Relation Name Age of Onset Hypertension Mother Heart disease Father Hypertension Sister Coronary artery disease Brother COPD Maternal Grandfather Past Medical History: Diagnosis Date Adrenal cortex atrophy (CMS/HCC) Anxiety Aortic aneurysm (CMS/HCC) infra renal Arthritis Depression (CMS/HCC) HTN (hypertension) (CMS/HCC) Hx of cholecystectomy Hx of tonsillitis Hypercholesterolemia (CMS/HCC) Hypokalemia Proctitis Stroke (CMS/HCC) 2003 Thyroid disease (CMS/HCC) Past Surgical History: Procedure Laterality Date APPENDECTOMY 1968 CATARACT EXTRACTION, BILATERAL CHOLECYSTECTOMY COLONOSCOPY 05/2015 COLONOSCOPY W/ POLYPECTOMY 03/07/2022 COLONOSCOPY W/ POLYPECTOMY 10/25/2022 CT ANGIOGRAM CHEST 07/10/2017 CT ANGIOGRAM CHEST NOMS DATA LEGACY ESOPHAGOSCOPY / EGD 12/06/2021 and colonoscopy HYSTERECTOMY TONSILLECTOMY Visit Vitals Smoking Status Former Review of Systems Constitutional: Negative. HENT: Positive for ear pain (left ear discomfort). Eyes: Negative. Respiratory: Negative. Cardiovascular: Negative. Gastrointestinal: Negative. Genitourinary: Negative. Musculoskeletal: Negative. Skin: Negative. Neurological: Negative. Psychiatric/Behavioral: Negative. Hematological: Negative. Endocrine: Negative. Allergic/Immunologic: Negative. Objective Physical Exam Vitals reviewed. Constitutional: Appearance: Normal appearance. HENT: Head: Normocephalic and atraumatic. Right Ear: External ear normal. Left Ear: External ear normal. Ears: Comments: Left ear canal with excessive cerumen, TM is minimally visible, Rt TM is dull, canal is clear Nose: Nose normal. Mouth/Throat: Mouth: Mucous membranes are moist. Pharynx: Oropharynx is clear. Eyes: Extraocular Movements: Extraocular movements intact. Conjunctiva/sclera: Conjunctivae normal. Pupils: Pupils are equal, round, and reactive to light. Cardiovascular: Rate and Rhythm: Normal rate and regular rhythm. Pulses: Normal pulses. Heart sounds: Normal heart sounds. Pulmonary: Effort: Pulmonary effort is normal. Breath sounds: Normal breath sounds. Abdominal: Palpations: Abdomen is soft. Musculoskeletal: General: Normal range of motion. Cervical back: Normal range of motion and neck supple. Skin: General: Skin is warm and dry. Neurological: General: No focal deficit present. Mental Status: She is alert and oriented to person, place, and time. Psychiatric: Mood and Affect: Mood normal. Behavior: Behavior normal. Thought Content: Thought content normal. Judgment: Judgment normal. Assessment/Plan 1. Chronic kidney disease, stage 3b (HCC) (CMS/HCC) (Primary) Stable. Labs ordered today. 11/14/23 labs reviewed - CBC; Future - CBC Glucose 65 - 99 mg/dL 93 90 CM 93 R, CM 94 R, CM Comment: Fasting reference interval BUN 7 - 25 mg/dL 22 25 Creatinine 0.60 - 1.00 mg/dL 1.15 High 1.34 High EGFR > OR = 60 mL/min/1.73m2 50 Low 42 Low 52 Low R 57 Low R >60 R 64 R, CM 64 R, CM 56 Low Panic R BUN/CREATININE RATIO 6 - 22 (calc) 19 19 Sodium 135 - 146 mmol/L 141 143 Potassium, Bld 3.5 - 5.3 mmol/L 4.2 3.5 Chloride 98 - 110 mmol/L 102 105 Carbon Dioxide 20 - 32 mmol/L 28 30 Calcium 8.6 - 10.4 mg/dL 9.7 9.5 PROTEIN, TOTAL 6.1 - 8.1 g/dL 7.1 6.8 ALBUMIN 3.6 - 5.1 g/dL 4.3 4.0 GLOBULIN 1.9 - 3.7 g/dL (calc) 2.8 2.8 ALBUMIN/GLOBULIN RATIO 1.0 - 2.5 (calc) 1.5 1.4 BILIRUBIN, TOTAL 0.2 - 1.2 mg/dL 0.4 0.5 ALKALINE PHOSPHATASE 37 - 153 U/L 123 134 AST 10 - 35 U/L 19 24 ALT 6 - 29 U/L 11 12 TBH EGFR-NON AF BELGIAN 43 Low 2. Adjustment disorder with anxiety (CMS/HCC) Alprazolam is reordered today. She states that she takes this at bedtime to help her calm down enough so she can sleep. This continues to be effective. - ALPRAZolam (Xanax) 1 MG tablet; TAKE 1 TABLET BY MOUTH IN THE MORNING AND 1 TABLET BEFORE BEDTIME Dispense: 60 tablet; Refill: 0 3. Neuralgia and neuritis, unspecified Tramadol reordered today. She states this is effective for her neuropathic pain. - traMADol (Ultram) 50 MG tablet; Take 1 tablet (50 mg) by mouth every 6 (six) hours if needed for moderate pain Dispense: 120 tablet; Refill: 0 4. Spondylosis without myelopathy or radiculopathy, lumbar region - traMADol (Ultram) 50 MG tablet; Take 1 tablet (50 mg) by mouth every 6 (six) hours if needed for moderate pain Dispense: 120 tablet; Refill: 0 5. Hypothyroidism, unspecified (CMS/HCC) TSH level is ordered today. Previous labs reviewed. - levothyroxine (Synthroid, Levoxyl) 200 MCG tablet; Take 1 tablet (200 mcg) by mouth in the morning. Take before meals. TAKE 1 TABLET BY MOUTH EVERY MORNING ON AN EMPTY STOMACH,ONLY TAKE 1/2 TABLET ON MONDAY AND MONDAY. Dispense: 90 tablet; Refill: 3 - TSH; Future - TSH TSH 0.40 - 4.50 mIU/L 1.35 T4, FREE 0.8 - 1.8 ng/dL 1.2 6. Nonalcoholic fatty liver disease without nonalcoholic steatohepatitis (BISWAS) - folic acid (Folvite) 1 MG tablet; Take 1 tablet (1,000 mcg) by mouth Daily Dispense: 100 tablet; Refill: 3 7. Polyneuropathy - gabapentin (Neurontin) 600 MG tablet; TAKE 1 TAB BY MOUTH IN THE MORNING, EVENING AND BEFORE BEDTIME Dispense: 270 tablet; Refill: 1 8. Peripheral polyneuropathy - gabapentin (Neurontin) 600 MG tablet; TAKE 1 TAB BY MOUTH IN THE MORNING, EVENING AND BEFORE BEDTIME Dispense: 270 tablet; Refill: 1 9. Vitamin D deficiency - Vitamin D 25 hydroxy; Future - Vitamin D 25 hydroxy 03/23/22 VITAMIN D,25-OH,TOTAL,IA 30 - 100 29 Low 10. Abnormal glucose tolerance test - Hemoglobin A1c; Future - Hemoglobin A1c 11. Dyslipidemia (CMS/HCC) - Lipid panel; Future - Lipid panel 12. Excessive cerumen in ear canal, left - carbamide peroxide (Debrox) 6.5 % otic solution; Administer 4 drops into affected ear(s) in the morning and 4 drops before bedtime. Do all this for 4 days. Dispense: 15 mL; Refill: 0 No follow-ups on file. documented in this encounter [facility] 12-20-2023 Instructions Елена Mg NP - 12/20/2023 1:00 PM EST Med refills Labs ordered Debrox drops, follow up for ear flush documented in this encounter [facility] 07-21-2023 History of Present illness Narrative Dianelys Womack 72 y.o. @WT@ [facility]/Room: [id number]/Room/bed info not found Subjective: The patient is being seen for a routine clinic follow-up of chronic kidney disease. Recently, the disease has been stable. Disease complications: No hyperkalemia, no hypocalcemia, no hyperphosphatemia, no metabolic acidosis, no coagulopathy, no uremic encephalopathy, no neuropathy and no renal osteodystrophy. The patient is currently asymptomatic. No associated symptoms are reported. Meds: Current Outpatient Medications Medication Sig Dispense Refill ALPRAZolam XR (Xanax XR) 1 mg 24 hr tablet Take 1 tablet (1 mg) by mouth once daily. amLODIPine (Norvasc) 10 mg tablet Take 1.5 tablets (15 mg) by mouth once daily. b complex [...] tablet (20 mg) by mouth once daily. prn gabapentin (Neurontin) 600 mg tablet Take 1 tablet (600 mg) by mouth 2 times a day. one tab in the am and 2 tabs in the pm omeprazole (PriLOSEC) [address] capsule Take 1 capsule (40 mg) by mouth once daily. potassium chloride CR 20 mEq ER tablet Take 1 tablet (20 mEq) by mouth once daily. prn Synthroid 200 mcg tablet Take 1 tablet [...] as stated in HPI. Physical Examination: Vitals: 07/21/23 1111 BP: 126/76 Pulse: 80 General: The patient is awake, oriented, and [...] 6 months for follow-up. Daniel Ma MD Senior Attending Physician Director of Onco-Nephrology Program Division of Nephrology & Hypertension [facility] documented in this encounter [facility] Work Phone: 03-24-2023 History of Present illness Narrative Physical [...] strength, ergonomic, and postural program to assist fci management (10 Min); Bike (PRN) Therapeutic Activity: [...] pending patient progress and medical necessity standards (01/30/23-O) I hereby deem this POC medically necessary. Please sign below and fax back to the number below. Physician Signature: Date: documented in this encounter [facility] 03-24-2023 History of Present illness Narrative Images from the original note were not included. [facility] Patient: Dianelys Womack [address], [address] , Sex: 1950, Female [place] [address] Height: 160 cm Ref Phys: Fallon Quiroz [...] Doub=doublet; Fasc=fasciculation; FFE=full for effort; Fib=fibrillation; Myokym=myokymia; [place]=myotonic potential; N,0=normal; NR=no response; Polyph=polyphasia; Pos=positive [sharp] wave; RFU=rapidly firing units; Serr=serrated potential (2<phases<5); W&W=waxing and waning pattern INTERPRETATION: This study reveals ENMG evidence of a chronic, neuropathic, primarily axonal, sensory > motor, process affecting all lower extremity nerves tested. Needle examination demonstrates a ielzjt-wl-hwictewc gradient that is most suggestive of peripheral [...] the present study. Aman Quiroz M.D. Diplomate, [employer] and [employer] (neurology, epilepsy, sleep medicine) Diplomate, [employer] of Clinical Neurophysiology Diplomate, [employer] of Preventive Medicine (clinical informatics) . documented in this encounter [facility] 11-22-2022 Evaluation + Plan note Associated Problem(s): Former smoker Encouraged patient to continue to abstain from cigarettes. [facility] Work Phone: 11-22-2022 Miscellaneous Notes Associated [...] the office environment. documented in this encounter [facility] Work Phone: 11-22-2022 Evaluation + Plan note Associated Problem(s): Class 1 obesity with body mass index (BMI) of 32.0 to 32.9 in adult Her BMI puts her in the overweight category, she remains fairly active, actually her weight is not too bad for her age, I reinforced the need for heart healthy lifestyle. [facility] Work Phone: 11-22-2022 Evaluation + Plan [...] than 2 Follow-up to discuss test results. [facility] Work Phone: 11-22-2022 Evaluation + Plan [...] of blood pressures outside the office environment. [facility] Work Phone: 11-21-2022 History of Present [...] which are followed by vascular surgery in [place]. She says that if she does not [...] following reasons: The patient has a prior OH or stroke diagnosis Assessment/Plan: Essential hypertension Patient [...] Elinor Raman MD documented in this encounter [facility] Work Phone: 11-21-2022 Instructions Ioana Drummond [...] of your visit. documented in this encounter [facility] Work Phone: 10-25-2022 Nurse Note AMBULATORY [...] In Department: GASTROENTEROLOGY documented in this encounter [facility] 10-18-2022 Miscellaneous Notes Attempted to reach the patient at the contact number that they provided [phone] (home) . 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 left informing the patient/patient construction representative they must have a responsible adult [...] Number to call with questions or concerns [phone] Number to call to cancel their procedure [phone] Swathi Verduzco RN documented in this encounter [facility] 04-21-2022 Miscellaneous Notes Received request for stool orders to be faxed to [facility]. Orders faxed successfully to [phone] Keiko Hernandez RN documented in this encounter [facility] 04-20-2022 Note HNO ID: [id number] Author: Wanda Rosado APRN.CNP Service: ? Author Type: Nurse [...] visit. Either the patient or their legal construction representative has been informed of the risks and benefits of -- and alternatives to -- treatment through a remote evaluation and consents to proceed with the evaluation remotely. Pt is advised to follow up in person with any new/worsening symptoms Her colonoscopy is due 08/2022- sooner as clinically indicate Wanda Rosado APRN.CNP [facility] 04-20-2022 History of Present illness Narrative Called [...] visit. Either the patient or their legal construction representative has been informed of the risks and benefits of -- and alternatives to -- treatment through a remote evaluation and consents to proceed with the evaluation remotely. Pt is advised to follow up in person with any new/worsening symptoms Her colonoscopy is due 08/2022- sooner as clinically indicate Wanda Rosado APRN.CNP documented in this encounter [facility] 04-19-2022 Note HNO ID: [id number] Author: Debbi Hammond APRN.PILOT CAPTAIN Service: ? Author Type: Nurse Practitioner Type: Progress Notes Filed: 04/20/2022 6:26 PM Note Text: VIRTUAL VISIT FOLLOW UP Dianelys Womack [id number] 1950 has requested a video telemedicine for follow up of diarrhea. Dianelys Womack verbalized informed consent to proceed with the video telemedicine follow up consultation. Diaenlys Womack was informed that the details of this video visit would be recorded as part of their electronic medical record. Patient location at time of call: personal residence Additional encounter participants and relationship: daughter, Елена I had a virtual visit with Dianelys Womack today with her daughter, Елена, for follow up of diarrhea. Last seen [...] Location: bilateral upper quadrants. Description: aching. Rates /10. Triggers: pressure to that area. Alleviating factors: [...] Glucose 74 - (more content not included)... [facility] 04-19-2022 History of Present illness Narrative VIRTUAL VISIT FOLLOW UP Dianelys Womack [id number] 1950 has requested a video telemedicine for follow up of diarrhea. Dianelys Womack verbalized informed consent to proceed with the video telemedicine follow up consultation. Dianelys Womack was informed that the details of this video visit would be recorded as part of their electronic medical record. Patient location at time of call: personal residence Additional encounter participants and relationship: daughter, Елена I had a virtual visit with Dianelys Womack today with her daughter, Елена, for follow up of diarrhea. Last seen [...] (03/03/2022)- Dr. Vera Operation: Endoscopic submucosal dissection (14301) and transanal endoscopic removal of the larger [...] On 03/03/2022 she underwent endoscopic submucosal dissection (20080) and transanal endoscopic removal of the larger rectal lesion with Dr. Vera- path detailed above. She followed up with ELIZABET Owens OUTSIDE UPHOLSTERER, s/p surgery and reported feeling improved overall [...] Levsin - Repeat fecal calpro (fax to #[phone], per pt preference) - CTe to further [...] with more than 50% of the total ltko-ur-qkik time of the visit in counseling / coordination of care. I have confirmed and edited as necessary, the PFSH and ROS obtained by others. Unrelated to E/M, telemedicine, or virtual visit service provided within previous 7 days. No E/M service or procedure anticipated within next 24 hours. Debbi Hammond APRN.PILOT CAPTAIN April 19, 2022 5:49 PM Answers submitted [...] with oil: Yes documented in this encounter [facility] 04-11-2022 Note HNO ID: [id number] Author: Wanda Rosado APRN.ALEX Service: ? Author Type: Nurse Practitioner Type: Progress Notes Filed: 04/11/2022 2:58 PM Note Text: COLORECTAL SURGERY Post-Op virtual Visit Dianelys Womack returns for a post-operative visit after undergoing surgery, on 03/03/2022. SURGEON: Fei Vera M.D. GLOVE PRINTER: GLOVE PRINTER: Pierre Tinoco MD. No qualified resident available. He participated in all portions of the surgery documented. This includes patient positioning, abdominal access, exposure, dissection and abdominal closure. . No qualified resident was available and he was instrumental in huddling and assistance and closure of the procedure. SURGERY/PROCEDURE: Endoscopic submucosal dissection (16013) and transanal endoscopic removal of the larger [...] etc. For this reason, I will message FRANCISCA Cornell to see if she can do VV [...] ordered by Dr. Tejeda already See above Wanda (more content not included)... [facility] 03-28-2022 Miscellaneous Notes Called and spoke with [...] reach out to his office to discuss [phone] Dianelys Womack complains of watery diarrhea. documented in this encounter [facility] 03-10-2022 Miscellaneous Notes Called and spoke with [...] again, patient appreciative of call, verbalized understanding [phone] Dianelys Womack asked to speak with Lety. [...] make the appt. documented in this encounter [facility] 03-09-2022 Miscellaneous Notes I called patient and left message. An order for vascular surgery consult was placed. 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 documented in this encounter [facility] 03-03-2022 Note HNO ID: [id number] Author: Rohini Stephenson APRN.LOUVER DOOR ASSEMBLER Service: ? Author Type: Nurse Electric Freight Car Operator Type: Anesthesia Procedure Notes Filed: 03/03/2022 3:31 PM Note Text: ANESTHESIOLOGY PROCEDURE NOTE Airway General Information Procedure Start Time/Medication Administration: 03/03/2022 12:43 PM Patient location during procedure: OR Timeout Performed Pre-procedure: timeout performed Consent Obtained: Yes Patient identity confirmed: arm band, care steam gigger and patient Staffing Anesthesiologist: Lakeshia Delacruz MD, [...] intubation on first attempt. SIGNATURE: Rohini Stephenson APRN.LOUVER DOOR ASSEMBLER PATIENT NAME: Dianelys Womack DATE: March 03, 2022 TIME: 1:16 PM CSN: [id number] [facility] 03-03-2022 Note HNO ID: [id number] Author: Rohini Stephenson APRN.LOUVER DOOR ASSEMBLER Service: ? Author Type: Nurse Electric Freight Car Operator Type: Anesthesia Procedure Notes Filed: 03/03/2022 1:11 [...] March 03, 2022 TIME: 1:11 PM CSN: [id number] [facility] 03-02-2022 Miscellaneous Notes Called and spoke with patient Advised that she has a listed allergy to flagyl, so I did not send that to her pharmacy Patient verbalized understanding Dianelys Womack asked why she didn't get the flagyl and just the neomycin? documented in this encounter [facility] 03-01-2022 Miscellaneous Notes Dianelys Womack did not receive any information by mail. As discussed, please fax to daughterЕлена [phone] documented in this encounter [facility] 02-28-2022 Miscellaneous Notes Called and spoke with [...] - I am happy to help coordinate [phone] Dianelys Womack has questions about meds she can and can't take prior to surgery. Aleydakldanielle Tramadol probotic Electronically signed by Stephaniemathieu Maradiaga [facility] at 02/28/2022 9:27 AM EST documented in this encounter [facility] 02-26-2022 Miscellaneous Notes Patient calling she has colorectal surgery on 03/03/22. Patient was given instructions on taking medications prior to surgery. Patient stated they did not go over her tramadol or Klor-con and she is concerned. Unable to see specifics on these medications to help patient. Patient denies any new or worsening symptoms of which a provider is not aware:Yes. Conferenced to [facility] facsimile operator Aman for Colorectal Surgery emergency communications operator provider for Dr. Fei Vera. GO TO THE EMERGENCY ROOM OR CALL 911 IF: * You develop any new symptoms * Your condition worsens * You are concerned or anxious about your condition for any other reason. If you have any questions, you can call Nurse business continuity specialist back. documented in this encounter [facility] 02-24-2022 Miscellaneous Notes Called and spoke with patient She accidentally left and missed pt ed appt Reviewed pt ed over the phone Medications sent to pharmacy Will send pt ed info to her via mail Patient appreciativ eof call The Patient is returning the nurses call back. Please call patient at [phone] documented in this encounter [facility] 02-24-2022 Miscellaneous Notes Called patient. No answer, left message Advised that she is late for appt with nurse for preop education Advised that she come to appt if she is still here, if running late no problem If she left for the day, she should call the office so we can review pt ed over the phone documented in this encounter [facility] 02-24-2022 Instructions Karson Monte APRN.ALEX - 02/24/2022 10:00 AM EST PATIENT PREOPERATIVE INSTRUCTIONS Gareth Vera MD has scheduled you for your procedure at this surgery center: [facility] [place] Scheduling Office: [phone] --[address] [place] [address]. Please read below carefully for your personalized [...] Procedures: - YOU MUST HAVE A RESPONSIBLE BUFFING WHEEL PRESSER TAKE YOU HOME. A XEROX MACHINE MECHANIC OR DELIVERY MERCHANDISER CANNOT BE MADE A RESPONSIBLE BUFFING WHEEL PRESSER. - We recommend that a responsible person [...] call the Monday before. Your surgeon s journeyman plumber will tell you what time to call the office. - If you have not reached the departmental journeyman plumber by 5 P.M., call [phone] after 5 P.M. the day before your surgery. Please be aware that emergency situations arise, which may delay or change your surgical time. If this happens, we will notify you as soon as possible and regret any inconvenience. If you already have an Advance Directive, please fax a copy to [phone] or email to for it to be [...] Karson Monte APRN.CNP documented in this encounter [facility] 02-24-2022 History and physical note HISTORY AND [...] or any previous visit (from the past 78748 hour(s)). Assessment History of anesthesia complications Patient [...] 35 kg/m^2 Non-male patient STOP-Bang Score: 3 [id number] Score: Hypertension history: Yes Stroke/TIA/thromboembolism history: Yes [id number] Score: 3 ARISCAT Score: Emergency procedure: No [...] AM PAGER/CONTACT #: documented in this encounter [facility] 01-12-2022 History and physical note COLORECTAL SURGERY [...] loss of consciousness? Yes hx of stroke 2004 Do you have a neurologic condition like [...] tone: NORMAL Squeeze tone: NORMAL Director Of Public Works present: Yes Assessment Medical Decision Making: Assessment [...] treatment plan: moderate documented in this encounter [facility] 12-24-2021 Miscellaneous Notes Spoke to Dianelys and reviewed colonoscopy and EGD results. She notes improvement in diarrhea since the colonoscopy. Also previously noted something bulging in and out of her rectum but not since the procedure. Will ask Dr. Vera if he can attempt endoscopic or transanal resection of the polyp Taz Tejeda MD documented in this encounter [facility] 12-06-2021 Note Q3 Patient Name: Dianelys Womack [...] present medications. Procedure Code(s): --- Professional --- 73754, Esophagogastroduodenoscopy, flexible, transoral; diagnostic, including collection of specimen(s) by brushing or washing, when performed (separate procedure) Diagnosis Code(s): --- Professional --- R10.13, Epigastric pain CPT copyright 2020 [employer]. All rights reserved. Attending Participation: I personally performed the entire procedure. Scope In: 11:20:21 AM Scope Out: 11:22:14 AM MD Kenton Rowe MD 12/06/2021 11:23:55 AM This report has been signed electronically by Kenton Kapadia MD Number of Addenda: 0 Note Initiated On: 12/06/2021 10:57 AM [facility] 12-06-2021 Nurse Note AMBULATORY PATIENT EDUCATION NOTE [...] Anastasia Orlando RN documented in this encounter [facility] 11-29-2021 Miscellaneous Notes Attempted to reach the patient at the contact number that they provided [phone] (home). 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 construction representative they must have a responsible adult [...] -Number to call with questions or concerns [phone] Jessica Green RN BSN documented in this encounter [facility] 11-05-2021 Miscellaneous Notes JOAN- please let her know that new orders have been signed Taz Tejeda MD Orders pended in this encounter. Keiko Hernandez RN Please place new egd/colonoscopy w MAC orders to be scheduled at [facility]3 Please contact patient's daughter(Shy) to schedule. # [phone] documented in this encounter [facility] 10-28-2021 History of Present illness Narrative VIRTUAL VISIT NEW PATIENT NAME: Dianelys Womack [facility] NO: [id number] DATE: 10/28/2021 REASON FOR VISIT Dianelys Womack [...] which included preparing to see the patient, [id number] patient care, completing clinical documentation, obtaining and/or reviewing separately obtained history, counseling and educating the patient/family/caregiver, and ordering medications, tests, or procedures. Taz Tejeda MD documented in this encounter [facility] 09-14-2021 Note PROCEDURE: XR FOREAR M LT [...] by: NATALIE FRANCO Date: 2021-09-14 08:58 [facility] 09-14-2021 Note PROCEDURE: XR FOREAR M LT [...] by: NATALIE FRANCO Date: 2021-09-14 08:58 [facility] 07-07-2021 Note CONSULTATION CONSULTATION DATE: 07/07/2021 HISTORY [...] heavy antibiotic use. 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 She does use heat which decreases her pain. She has completed physical therapy at [facility] within the past year. She has [...] of care and will call as needed. [facility] Signed and Approved by: MARANDA OSEGUERA . 07/21/2021 16:05:00 [facility] 06-14-2021 Evaluation note Encounter Date Diagnosis Assessment [...] She understands and agrees with that plan. [facility] 11-02-2021 Evaluation note* Encounter Date Diagnosis [...] the next visit we may consider intervention. [facility] Evaluation noteNo assessment information available [facility] Work Phone: Evaluation note* Diagnosis Diarrhea, unspecified type- Primary Abdominal pain, unspecified abdominal location Nausea Nausea alone [facility] Diagnosis Abdominal pain, unspecified abdominal location- Primary Diarrhea, unspecified type [facility] Diagnosis Diarrhea, unspecified type Abdominal pain, unspecified abdominal location Primary hypertension Unspecified essential hypertension Gastroesophageal reflux disease without esophagitis Esophageal reflux Chronic renal impairment, stage 2 (mild) History of anesthesia complications Unspecified adverse effect of anesthesia Cerebrovascular accident (CVA), unspecified mechanism (HCC) [facility] 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, intestines, and rectum [facility] Diagnosis Benign neoplasm of rectum- Primary Benign neoplasm of rectum and anal canal [facility] Pre-op evaluation- Primary Preoperative examination, [...] involving digestive system [facility] Diagnosis Thoracoabdominal aortic aneurysm (TAAA) without rupture, unspecified part- Primary [facility] Diagnosis Adenomatous rectal polyp- Primary Benign neoplasm of rectum and anal canal [facility] Diagnosis Abdominal pain, unspecified abdominal location- Primary Adenomatous rectal polyp Benign neoplasm of rectum and anal canal Adverse effect of treatment, initial encounter [facility] Diagnosis Follow-up exam- Primary Unspecified follow-up examination [facility] Diagnosis Abdominal pain, unspecified abdominal location Diarrhea, unspecified type [facility] Diagnosis Former smoker- Primary Personal history of tobacco use, presenting hazards to health Essential hypertension Unspecified essential hypertension 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) PVC (premature ventricular contraction) Other premature beats Other ill-defined heart diseases documented in this encounter [facility] Work Phone: Evaluation note* Diagnosis Essential hypertension- Primary Unspecified essential hypertension documented in this encounter [facility] Work Phone: Evaluation note* Diagnosis Numbness- Primary Disturbance of skin sensation documented in this encounter [facility]* Diagnosis Cervical paraspinal muscle spasm- Primary Spasm of muscle Polyneuropathy Unspecified hereditary and idiopathic peripheral neuropathy Central vestibular vertigo Vertigo of central origin Unsteadiness on feet documented in this encounter [facility]* Diagnosis Essential hypertension- Primary Unspecified essential hypertension documented in this encounter [facility] Work Phone: Evaluation note* Diagnosis Cervical paraspinal muscle spasm Spasm of muscle Polyneuropathy Unspecified hereditary and idiopathic peripheral neuropathy Fall in home, initial encounter- Primary Nonalcoholic fatty liver disease without nonalcoholic steatohepatitis (BISWAS) Abdominal aortic aneurysm (AAA) without rupture, unspecified part (CMS/HCC) Stage 3a chronic kidney disease (HCC) (CMS/HCC) Benign essential hypertension (CMS/HCC) Essential hypertension, benign Adjustment disorder with anxiety (CMS/HCC) Adjustment disorder with anxiety Polyneuropathy Unspecified hereditary and idiopathic peripheral neuropathy Reactive depression (CMS/HCC) Neurogenic pain- Primary Carotid stenosis, bilateral Occlusion and stenosis of carotid artery without mention of cerebral infarction B12 deficiency Cervical paraspinal muscle spasm Spasm of muscle Lumbar paraspinal muscle spasm Other symptoms referable to back Polyneuropathy Unspecified hereditary and idiopathic peripheral neuropathy Peripheral polyneuropathy Numbness Disturbance of skin sensation Leg pain, left Pain in soft tissues of limb Leg pain, right Pain in soft tissues of limb Bilateral leg weakness Muscle weakness (generalized) Benign essential hypertension (CMS/HCC)- Primary Essential hypertension, benign Reactive depression (CMS/HCC) Benign essential hypertension (CMS/HCC)- Primary Essential hypertension, benign Adjustment disorder with anxiety (CMS/HCC) Adjustment disorder with anxiety Neuralgia and neuritis, unspecified Spondylosis without myelopathy or radiculopathy, lumbar region Reactive depression (CMS/HCC) Chronic kidney disease, stage 3a (N18.31) 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) Hypokalemia Hypopotassemia Neurogenic pain- Primary Carotid stenosis, bilateral Occlusion and stenosis of carotid artery without mention of cerebral infarction B12 deficiency Cervical paraspinal muscle spasm Spasm of muscle Lumbar paraspinal muscle spasm Other symptoms referable to back Polyneuropathy Unspecified hereditary and idiopathic peripheral neuropathy Peripheral polyneuropathy Routine general medical examination at health care facility- Primary Routine general medical examination at a health care facility Neuralgia and neuritis, unspecified Spondylosis without myelopathy or radiculopathy, lumbar region Nonalcoholic fatty liver disease without nonalcoholic steatohepatitis (BISWAS) Chronic kidney disease, stage 3b (HCC) (CMS/HCC) Unspecified inflammatory spondylopathy, lumbar region (CMS/HCC) Unspecified dementia, unspecified severity, without behavioral disturbance, psychotic disturbance, mood disturbance, and anxiety (CMS/HCC) Hyperparathyroidism, unspecified (CMS/HCC) Hyperparathyroidism, unspecified 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 Encounter for subsequent annual wellness visit (AWV) in Medicare patient Vitamin D deficiency Chronic kidney disease, stage 3b (HCC) (CMS/HCC)- Primary Adjustment disorder with anxiety (CMS/HCC) Adjustment disorder with anxiety Neuralgia and neuritis, unspecified Spondylosis without myelopathy or radiculopathy, lumbar region Hypothyroidism, unspecified (CMS/HCC) Nonalcoholic fatty liver disease without nonalcoholic steatohepatitis (BISWAS) Polyneuropathy Unspecified hereditary and idiopathic peripheral neuropathy Peripheral polyneuropathy Vitamin D deficiency Abnormal glucose tolerance test Impaired glucose tolerance test Dyslipidemia (CMS/HCC) Other and unspecified hyperlipidemia Excessive cerumen in ear canal, left documented [facility] Diagnosis Cervical paraspinal muscle spasm Spasm of muscle Polyneuropathy Unspecified hereditary and idiopathic peripheral neuropathy Fall in home, initial encounter- Primary Nonalcoholic fatty liver disease without nonalcoholic steatohepatitis (BISWAS) Abdominal aortic aneurysm (AAA) without rupture, unspecified part (CMS/HCC) Stage 3a chronic kidney disease (HCC) (CMS/HCC) Benign essential hypertension (CMS/HCC) Essential hypertension, benign Adjustment disorder with anxiety (CMS/HCC) Adjustment disorder with anxiety Polyneuropathy Unspecified hereditary and idiopathic peripheral neuropathy Reactive depression (CMS/HCC) Neurogenic pain- Primary Carotid stenosis, bilateral Occlusion and stenosis of carotid artery without mention of cerebral infarction B12 deficiency Cervical paraspinal muscle spasm Spasm of muscle Lumbar paraspinal muscle spasm Other symptoms referable to back Polyneuropathy Unspecified hereditary and idiopathic peripheral neuropathy Peripheral polyneuropathy Numbness Disturbance of skin sensation Leg pain, left Pain in soft tissues of limb Leg pain, right Pain in soft tissues of limb Bilateral leg weakness Muscle weakness (generalized) Benign essential hypertension (CMS/HCC)- Primary Essential hypertension, benign Reactive depression (CMS/HCC) Benign essential hypertension (CMS/HCC)- Primary Essential hypertension, benign Adjustment disorder with anxiety (CMS/HCC) Adjustment disorder with anxiety Neuralgia and neuritis, unspecified Spondylosis without myelopathy or radiculopathy, lumbar region Reactive depression (CMS/HCC) Chronic kidney disease, stage 3a (N18.31) 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) Hypokalemia Hypopotassemia Neurogenic pain- Primary Carotid stenosis, bilateral Occlusion and stenosis of carotid artery without mention of cerebral infarction B12 deficiency Cervical paraspinal muscle spasm Spasm of muscle Lumbar paraspinal muscle spasm Other symptoms referable to back Polyneuropathy Unspecified hereditary and idiopathic peripheral neuropathy Peripheral polyneuropathy Routine general medical examination at health care facility- Primary Routine general medical examination at a health care facility Neuralgia and neuritis, unspecified Spondylosis without myelopathy or radiculopathy, lumbar region Nonalcoholic fatty liver disease without nonalcoholic steatohepatitis (BISWAS) Chronic kidney disease, stage 3b (HCC) (CMS/HCC) Unspecified inflammatory spondylopathy, lumbar region (CMS/HCC) Unspecified dementia, unspecified severity, without behavioral disturbance, psychotic disturbance, mood disturbance, and anxiety (CMS/HCC) Hyperparathyroidism, unspecified (CMS/HCC) Hyperparathyroidism, unspecified 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 Encounter for subsequent annual wellness visit (AWV) in Medicare patient Vitamin D deficiency Vitamin D deficiency- Primary documented [facility] Diagnosis Cervical paraspinal muscle spasm Spasm of muscle Polyneuropathy Unspecified hereditary and idiopathic peripheral neuropathy Fall in home, initial encounter- Primary Nonalcoholic fatty liver disease without nonalcoholic steatohepatitis (BISWAS) Abdominal aortic aneurysm (AAA) without rupture, unspecified part (CMS/HCC) Stage 3a chronic kidney disease (HCC) (CMS/HCC) Benign essential hypertension (CMS/HCC) Essential hypertension, benign Adjustment disorder with anxiety (CMS/HCC) Adjustment disorder with anxiety Polyneuropathy Unspecified hereditary and idiopathic peripheral neuropathy Reactive depression (CMS/HCC) Neurogenic pain- Primary Carotid stenosis, bilateral Occlusion and stenosis of carotid artery without mention of cerebral infarction B12 deficiency Cervical paraspinal muscle spasm Spasm of muscle Lumbar paraspinal muscle spasm Other symptoms referable to back Polyneuropathy Unspecified hereditary and idiopathic peripheral neuropathy Peripheral polyneuropathy Numbness Disturbance of skin sensation Leg pain, left Pain in soft tissues of limb Leg pain, right Pain in soft tissues of limb Bilateral leg weakness Muscle weakness (generalized) Benign essential hypertension (CMS/HCC)- Primary Essential hypertension, benign Reactive depression (CMS/HCC) Benign essential hypertension (CMS/HCC)- Primary Essential hypertension, benign Adjustment disorder with anxiety (CMS/HCC) Adjustment disorder with anxiety Neuralgia and neuritis, unspecified Spondylosis without myelopathy or radiculopathy, lumbar region Reactive depression (CMS/HCC) Chronic kidney disease, stage 3a (N18.31) 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) Hypokalemia Hypopotassemia Neurogenic pain- Primary Carotid stenosis, bilateral Occlusion and stenosis of carotid artery without mention of cerebral infarction B12 deficiency Cervical paraspinal muscle spasm Spasm of muscle Lumbar paraspinal muscle spasm Other symptoms referable to back Polyneuropathy Unspecified hereditary and idiopathic peripheral neuropathy Peripheral polyneuropathy Routine general medical examination at health care facility- Primary Routine general medical examination at a health care facility Neuralgia and neuritis, unspecified Spondylosis without myelopathy or radiculopathy, lumbar region Nonalcoholic fatty liver disease without nonalcoholic steatohepatitis (BISWAS) Chronic kidney disease, stage 3b (HCC) ([facility]/HCC) Unspecified inflammatory spondylopathy, lumbar region ([facility]/HCC) Unspecified dementia, unspecified severity, without behavioral disturbance, psychotic disturbance, mood disturbance, and anxiety ([facility]/HCC) Hyperparathyroidism, unspecified ([facility]/HCC) Hyperparathyroidism, unspecified Polyneuropathy due to other toxic agents ([facility]/HCC) Polyneuropathy due to other toxic agents Encounter for subsequent annual wellness visit (AWV) in Medicare patient Vitamin D deficiency Medicare annual wellness visit, subsequent- Primary Encounter for vaccination Neurogenic pain Central vestibular vertigo Vertigo of central origin White matter disease Vascular dementia without behavioral disturbance, psychotic disturbance, mood disturbance, or anxiety, unspecified dementia severity ([facility]/HCC) Cerebrovascular accident (CVA) due to thrombosis of precerebral artery ([facility]/HCC) Chronic pain syndrome Other emphysema ([facility]/HCC) Other emphysema Carotid stenosis, bilateral Occlusion and stenosis of carotid artery without mention of cerebral infarction Generalized atherosclerosis Generalized and unspecified atherosclerosis Benign essential hypertension ([facility]) Essential hypertension, benign Constipation, unspecified constipation type Nonalcoholic fatty liver disease without nonalcoholic steatohepatitis (BISWAS) Irritable bowel syndrome with both constipation and diarrhea Gastroesophageal reflux disease without esophagitis Esophageal reflux Chronic kidney disease, stage 3a (HCC) ([facility]/HCC) B12 deficiency Acquired hypothyroidism ([facility]/HCC) Unspecified hypothyroidism Vitamin D deficiency Hyperparathyroidism, unspecified ([facility]/HCC) Hyperparathyroidism, unspecified Seasonal allergies Allergic rhinitis, cause unspecified Dyslipidemia ([facility]/HCC) Other and unspecified hyperlipidemia BPPV (benign paroxysmal positional vertigo), left Anxiety and depression ([facility]/HCC) Localized edema Edema Acute serous otitis media, recurrence not specified, unspecified laterality Muscle cramps documented in this encounter [facility]* Diagnosis Cervical paraspinal muscle spasm Spasm of muscle Polyneuropathy Unspecified hereditary and idiopathic peripheral neuropathy Fall in home, initial encounter- Primary Nonalcoholic fatty liver disease without nonalcoholic steatohepatitis (BISWAS) Abdominal aortic aneurysm (AAA) without rupture, unspecified part ([facility]/HCC) Stage 3a chronic kidney disease (HCC) ([facility]/HCC) Benign essential hypertension ([facility]/HCC) Essential hypertension, benign Adjustment disorder with anxiety ([facility]/HCC) Adjustment disorder with anxiety Polyneuropathy Unspecified hereditary and idiopathic peripheral neuropathy Reactive depression ([facility]) Neurogenic pain- Primary Carotid stenosis, bilateral Occlusion and stenosis of carotid artery without mention of cerebral infarction B12 deficiency Cervical paraspinal muscle spasm Spasm of muscle Lumbar paraspinal muscle spasm Other symptoms referable to back Polyneuropathy Unspecified hereditary and idiopathic peripheral neuropathy Peripheral polyneuropathy Numbness Disturbance of skin sensation Leg pain, left Pain in soft tissues of limb Leg pain, right Pain in soft tissues of limb Bilateral leg weakness Muscle weakness (generalized) Benign essential hypertension (CMS/HCC)- Primary Essential hypertension, benign Reactive depression (CMS/HCC) Benign essential hypertension (CMS/HCC)- Primary Essential hypertension, benign Adjustment disorder with anxiety (CMS/HCC) Adjustment disorder with anxiety Neuralgia and neuritis, unspecified Spondylosis without myelopathy or radiculopathy, lumbar region Reactive depression (CMS/HCC) Chronic kidney disease, stage 3a (N18.31) 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) Hypokalemia Hypopotassemia Neurogenic pain- Primary Carotid stenosis, bilateral Occlusion and stenosis of carotid artery without mention of cerebral infarction B12 deficiency Cervical paraspinal muscle spasm Spasm of muscle Lumbar paraspinal muscle spasm Other symptoms referable to back Polyneuropathy Unspecified hereditary and idiopathic peripheral neuropathy Peripheral polyneuropathy Routine general medical examination at health care facility- Primary Routine general medical examination at a health care facility Neuralgia and neuritis, unspecified Spondylosis without myelopathy or radiculopathy, lumbar region Nonalcoholic fatty liver disease without nonalcoholic steatohepatitis (BISWAS) Chronic kidney disease, stage 3b (HCC) (CMS/HCC) Unspecified inflammatory spondylopathy, lumbar region (CMS/HCC) Unspecified dementia, unspecified severity, without behavioral disturbance, psychotic disturbance, mood disturbance, and anxiety (CMS/HCC) Hyperparathyroidism, unspecified (CMS/HCC) Hyperparathyroidism, unspecified 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 Encounter for subsequent annual wellness visit (AWV) in Medicare patient Vitamin D deficiency Adjustment disorder with anxiety (CMS/HCC)- Primary Adjustment disorder with anxiety Hypokalemia Hypopotassemia Spondylosis without myelopathy or radiculopathy, lumbar region documented in this encounter [facility]* Diagnosis Cervical paraspinal muscle spasm Spasm of muscle Polyneuropathy Unspecified hereditary and idiopathic peripheral neuropathy Fall in home, initial encounter- Primary Nonalcoholic fatty liver disease without nonalcoholic steatohepatitis (BISWAS) Abdominal aortic aneurysm (AAA) without rupture, unspecified part (CMS/HCC) Stage 3a chronic kidney disease (HCC) (CMS/HCC) Benign essential hypertension (CMS/HCC) Essential hypertension, benign Adjustment disorder with anxiety (CMS/HCC) Adjustment disorder with anxiety Polyneuropathy Unspecified hereditary and idiopathic peripheral neuropathy Reactive depression (CMS/HCC) Neurogenic pain- Primary Carotid stenosis, bilateral Occlusion and stenosis of carotid artery without mention of cerebral infarction B12 deficiency Cervical paraspinal muscle spasm Spasm of muscle Lumbar paraspinal muscle spasm Other symptoms referable to back Polyneuropathy Unspecified hereditary and idiopathic peripheral neuropathy Peripheral polyneuropathy Numbness Disturbance of skin sensation Leg pain, left Pain in soft tissues of limb Leg pain, right Pain in soft tissues of limb Bilateral leg weakness Muscle weakness (generalized) Benign essential hypertension (CMS/HCC)- Primary Essential hypertension, benign Reactive depression (CMS/HCC) Benign essential hypertension (CMS/HCC)- Primary Essential hypertension, benign Adjustment disorder with anxiety (CMS/HCC) Adjustment disorder with anxiety Neuralgia and neuritis, unspecified Spondylosis without myelopathy or radiculopathy, lumbar region Reactive depression (CMS/HCC) Chronic kidney disease, stage 3a (N18.31) 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) Hypokalemia Hypopotassemia Neurogenic pain- Primary Carotid stenosis, bilateral Occlusion and stenosis of carotid artery without mention of cerebral infarction B12 deficiency Cervical paraspinal muscle spasm Spasm of muscle Lumbar paraspinal muscle spasm Other symptoms referable to back Polyneuropathy Unspecified hereditary and idiopathic peripheral neuropathy Peripheral polyneuropathy Routine general medical examination at health care facility- Primary Routine general medical examination at a health care facility Neuralgia and neuritis, unspecified Spondylosis without myelopathy or radiculopathy, lumbar region Nonalcoholic fatty liver disease without nonalcoholic steatohepatitis (BISWAS) Chronic kidney disease, stage 3b (HCC) (CMS/HCC) Unspecified inflammatory spondylopathy, lumbar region (CMS/HCC) Unspecified dementia, unspecified severity, without behavioral disturbance, psychotic disturbance, mood disturbance, and anxiety (CMS/HCC) Hyperparathyroidism, unspecified (CMS/HCC) Hyperparathyroidism, unspecified 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 Encounter for subsequent annual wellness visit (AWV) in Medicare patient Vitamin D deficiency Localized swelling of both lower extremities- Primary Other emphysema (CMS/HCC) Other emphysema Hereditary ataxia, unspecified (CMS/HCC) Chronic obstructive pulmonary disease, unspecified (CMS/HCC) Chronic kidney disease, stage 3a (HCC) (CMS/HCC) Mixed simple and mucopurulent chronic bronchitis (CMS/HCC) Other chronic bronchitis documented in this encounter [facility] HealthcareEvaluation note* Diagnosis Cervical paraspinal muscle spasm Spasm of muscle Polyneuropathy Unspecified hereditary and idiopathic peripheral neuropathy Fall in home, initial encounter- Primary Nonalcoholic fatty liver disease without nonalcoholic steatohepatitis (BISWAS) Abdominal aortic aneurysm (AAA) without rupture, unspecified part (CMS/HCC) Stage 3a chronic kidney disease (HCC) (CMS/HCC) Benign essential hypertension (CMS/HCC) Essential hypertension, benign Adjustment disorder with anxiety (CMS/HCC) Adjustment disorder with anxiety Polyneuropathy Unspecified hereditary and idiopathic peripheral neuropathy Reactive depression (CMS/HCC) Neurogenic pain- Primary Carotid stenosis, bilateral Occlusion and stenosis of carotid artery without mention of cerebral infarction B12 deficiency Cervical paraspinal muscle spasm Spasm of muscle Lumbar paraspinal muscle spasm Other symptoms referable to back Polyneuropathy Unspecified hereditary and idiopathic peripheral neuropathy Peripheral polyneuropathy Numbness Disturbance of skin sensation Leg pain, left Pain in soft tissues of limb Leg pain, right Pain in soft tissues of limb Bilateral leg weakness Muscle weakness (generalized) Benign essential hypertension (CMS/HCC)- Primary Essential hypertension, benign Reactive depression (CMS/HCC) Benign essential hypertension (CMS/HCC)- Primary Essential hypertension, benign Adjustment disorder with anxiety (CMS/HCC) Adjustment disorder with anxiety Neuralgia and neuritis, unspecified Spondylosis without myelopathy or radiculopathy, lumbar region Reactive depression (CMS/HCC) Chronic kidney disease, stage 3a (N18.31) 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) Hypokalemia Hypopotassemia Neurogenic pain- Primary Carotid stenosis, bilateral Occlusion and stenosis of carotid artery without mention of cerebral infarction B12 deficiency Cervical paraspinal muscle spasm Spasm of muscle Lumbar paraspinal muscle spasm Other symptoms referable to back Polyneuropathy Unspecified hereditary and idiopathic peripheral neuropathy Peripheral polyneuropathy Routine general medical examination at health care facility- Primary Routine general medical examination at a health care facility Neuralgia and neuritis, unspecified Spondylosis without myelopathy or radiculopathy, lumbar region Nonalcoholic fatty liver disease without nonalcoholic steatohepatitis (BISWAS) Chronic kidney disease, stage 3b (HCC) (CMS/HCC) Unspecified inflammatory spondylopathy, lumbar region (CMS/HCC) Unspecified dementia, unspecified severity, without behavioral disturbance, psychotic disturbance, mood disturbance, and anxiety (CMS/HCC) Hyperparathyroidism, unspecified (CMS/HCC) Hyperparathyroidism, unspecified 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 Encounter for subsequent annual wellness visit (AWV) in Medicare patient Vitamin D deficiency Localized swelling of both lower extremities- Primary Other emphysema (CMS/HCC) Other emphysema Hereditary ataxia, unspecified (CMS/HCC) Chronic obstructive pulmonary disease, unspecified (CMS/HCC) Chronic kidney disease, stage 3a (HCC) (CMS/HCC) Mixed simple and mucopurulent chronic bronchitis (CMS/HCC) Other chronic bronchitis Localized edema- Primary Edema Encounter for monitoring diuretic therapy documented in this encounter [facility] HealthcareEvaluation note* Diagnosis Cervical paraspinal muscle spasm Spasm of muscle Polyneuropathy Unspecified hereditary and idiopathic peripheral neuropathy Fall in home, initial encounter- Primary Nonalcoholic fatty liver disease without nonalcoholic steatohepatitis (BISWAS) Abdominal aortic aneurysm (AAA) without rupture, unspecified part ([facility]/HCC) Stage 3a chronic kidney disease (HCC) ([facility]/HCC) Benign essential hypertension (CMS/HCC) Essential hypertension, benign Adjustment disorder with anxiety (CMS/HCC) Adjustment disorder with anxiety Polyneuropathy Unspecified hereditary and idiopathic peripheral neuropathy Reactive depression ([facility]/HCC) Neurogenic pain- Primary Carotid stenosis, bilateral Occlusion and stenosis of carotid artery without mention of cerebral infarction B12 deficiency Cervical paraspinal muscle spasm Spasm of muscle Lumbar paraspinal muscle spasm Other symptoms referable to back Polyneuropathy Unspecified hereditary and idiopathic peripheral neuropathy Peripheral polyneuropathy Numbness Disturbance of skin sensation Leg pain, left Pain in soft tissues of limb Leg pain, right Pain in soft tissues of limb Bilateral leg weakness Muscle weakness (generalized) Benign essential hypertension (CMS/HCC)- Primary Essential hypertension, benign Reactive depression (CMS/HCC) Benign essential hypertension (CMS/HCC)- Primary Essential hypertension, benign Adjustment disorder with anxiety (CMS/HCC) Adjustment disorder with anxiety Neuralgia and neuritis, unspecified Spondylosis without myelopathy or radiculopathy, lumbar region Reactive depression (CMS/HCC) Chronic kidney disease, stage 3a (N18.31) 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) Hypokalemia Hypopotassemia Neurogenic pain- Primary Carotid stenosis, bilateral Occlusion and stenosis of carotid artery without mention of cerebral infarction B12 deficiency Cervical paraspinal muscle spasm Spasm of muscle Lumbar paraspinal muscle spasm Other symptoms referable to back Polyneuropathy Unspecified hereditary and idiopathic peripheral neuropathy Peripheral polyneuropathy Routine general medical examination at health care facility- Primary Routine general medical examination at a health care facility Neuralgia and neuritis, unspecified Spondylosis without myelopathy or radiculopathy, lumbar region Nonalcoholic fatty liver disease without nonalcoholic steatohepatitis (BISWAS) Chronic kidney disease, stage 3b (HCC) (CMS/HCC) Unspecified inflammatory spondylopathy, lumbar region (CMS/HCC) Unspecified dementia, unspecified severity, without behavioral disturbance, psychotic disturbance, mood disturbance, and anxiety (CMS/HCC) Hyperparathyroidism, unspecified (CMS/HCC) Hyperparathyroidism, unspecified 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 Encounter for subsequent annual wellness visit (AWV) in Medicare patient Vitamin D deficiency Localized swelling of both lower extremities- Primary Other emphysema (CMS/HCC) Other emphysema Hereditary ataxia, unspecified (CMS/HCC) Chronic obstructive pulmonary disease, unspecified (CMS/HCC) Chronic kidney disease, stage 3a (HCC) (CMS/HCC) Mixed simple and mucopurulent chronic bronchitis ([facility]/HCC) Other chronic bronchitis Acute non-recurrent maxillary sinusitis- Primary documented in this encounter [facility] Healthcare[facility] general Narrative - Reported* Type Description Date Medical History AAA Medical History CVOD Medical History CVA Medical History HTN Medical History C-diff Medical History CRI Medical History Iliac artery aneurysm Surgical History tonsillectomy and adenoidectomy Surgical History appendectomy Surgical History cholecystectomy Surgical History hysterectomy x 3 Hospitalization History childbirth Hospitalization History see above Hospitalization History pgeisert Lobster Other History of Present illness Narrative* Ms. [...] for follow-up or sooner if need be. [facility] 250 DO Work Phone: History of Present illness NarrativeThe patient is being seen for a routine clinic follow-up of chronic kidney disease. This is classified as stage 3. Recently, the disease has been stable. There are no known disease complications. Thepatient is currently asymptomatic. No associated symptoms are reported.[facility] 3 DO Work Phone: History of Present illness NarrativeThe patient is being seen for a routine clinic follow-up of chronic kidney disease. This is classified as stage 3. Recently, the disease has been stable. There are no known disease complications. Thepatient is currently asymptomatic. No associated symptoms are reported.[facility] 3A [place] Work Phone: History of Present illness Narrative* Daniel Ma MD - 01/20/2023 11:20 AM EST Dianelys Vu 72 y.o. @@ [facility]/Room: [id number]/Room/bed info not found Subjective: The patient is [...] follow-up. 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 [facility] Reason for referral (narrative)* Outpatient Procedure (Routine) - Pending Review Specialty Diagnoses / Procedures Referred By Guero butt Referred To Contact [facility] Diagnoses Abdominal pain, unspecified abdominal location Diarrhea, unspecified type Procedures COLONOSCOPY DIAGNOSTIC COLONOSCOPY FLX DX W/COLLJ SPEC WHEN PFRMD Taz Tejeda MD [address] [place] [address] [facility] [address] [place] [address] Referral ID Status Reason Start Date Expiration Date Visits Requested Visits Authorized [id number] Pending Review Auto-Generat ed Referral 10/28/2021 10/28/2022 1 1 * Outpatient Procedure (Routine) - Pending Review Specialty Diagnoses / Procedures Referred By Guero butt Referred To [facility] Diagnoses Abdominal pain, unspecified abdominal location Diarrhea, unspecified type Procedures EGD DIAGNOSTIC ESOPHAGOGASTRODUODENOSC [place] [address] [place] [address] [address] Referral ID Status Reason Start Date Expiration Date Visits Requested Visits Authorized [id number] Pending Review Auto-Generat ed Referral 10/28/2021 10/28/2022 1 1 [facility] for referral (narrative)* Outpatient Procedure (Routine) - Pending Review Specialty Diagnoses / Procedures Referred By Contac t Referred To [facility] Diagnoses Abdominal pain, unspecified abdominal location Procedures EGD DIAGNOSTIC ESOPHAGOGASTRODUODENOSC OPY TRANSORAL DIAGNOSTIC Taz Tejeda MD [address] [place] [address] [address] Referral ID Status Reason Start Date Expiration Date Visits Requested Visits Authorized [id number] Pending Review Auto-Generat ed Referral 05/04/2022 11/04/2022 1 1 * Outpatient Procedure (Routine) - Pending Review Specialty Diagnoses / Procedures Referred By Contac t Referred To [facility] Diagnoses Diarrhea, unspecified type Procedures COLONOSCOPY DIAGNOSTIC COLONOSCOPY FLX DX W/COLLJ SPEC WHEN PFRMD Taz Tejeda MD [address] [place] [address] [address] Referral ID Status Reason Start Date Expiration Date Visits Requested Visits Authorized [id number] Pending Review Auto-Generat ed Referral 05/04/2022 11/04/2022 1 1 [facility] for referral (narrative)* Outpatient Procedure (Routine) - Closed Specialty Diagnoses / Procedures [facility] To [facility] Diagnoses Abdominal pain, unspecified abdominal location Procedures EGD DIAGNOSTIC ESOPHAGOGASTRODUODENOSC OPY TRANSORAL DIAGNOSTIC Taz Tejeda MD [address] [place] [address] [address] Referral ID Status Reason Start Date Expiration Date V isits Requested Visits Authorized [id number] Closed Auto-Generate d Referral 05/04/2022 11/04/2022 1 1 * Outpatient Procedure (Routine) - Closed Specialty Diagnoses / Procedures [facility] Referred To Contact [facility] Diagnoses Diarrhea, unspecified type Procedures COLONOSCOPY DIAGNOSTIC COLONOSCOPY FLX DX W/COLLJ SPEC WHEN Taz Heard MD [address] [place] [address] [address] Referral ID Status Reason Start Date Expiration Date V isits Requested Visits Authorized [id number] Closed Auto-Generate d Referral 05/04/2022 11/04/2022 1 1 [facility] for referral (narrative)* Outpatient Procedure (Routine) - Pending Review Specialty Diagnoses / Procedures Ref[facility] Referred To [facility] Diagnoses Adenomatous rectal polyp Procedures COLONOSCOPY DIAGNOSTIC COLONOSCOPY FLX DX W/COLLJ SPEC WHEN Taz Heard MD [address] [place] [address] [address] Referral ID Status Reason Start Date Expiration Date Visits Requested Visits Authorized [id number] Pending Review Auto-Generat ed Referral 04/10/2022 04/10/2023 1 1 [facility] for referral (narrative)* Outpatient Procedure (Routine) - Closed Specialty Diagnoses / Procedures Referred By Contac t Referred To Contact [facility] Diagnoses Abdominal pain, unspecified abdominal location Diarrhea, unspecified type Procedures COLONOSCOPY DIAGNOSTIC COLONOSCOPY FLX DX W/COLLJ SPEC WHEN PFRMTaz Whitehead MD [address] [place] [address] [facility] [address] [place] [address] Referral ID Status Reason Start Date Expiration Date V isits Requested Visits Authorized [id number] Closed Auto-Generate d Referral 10/28/2021 10/28/2022 1 1 [facility] for referral (narrative)* Consultation (Routine) - Authorized Specialty Diagnoses / Procedures Referred By [facility] Referred To Contact Cardiology Diagnoses Essential hypertension 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) Procedures Follow Up In Cardiology Elinor Raman MD [address] [address] Referral ID Status Reason Start Date Expiration Date V isits Requested Visits Authorized [id number] Authorized 11/21/2022 05/20/2023 1 1 * Cardiac Stress Testing (Routine) - Pending Review Specialty Diagnoses / Procedures Referred By [facility] Referred To Contact Radiology Diagnoses Essential hypertension 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) Other ill-defined heart diseases Procedures Nuclear Stress Test CHG MYOCARDIAL SPECT MULTIPLE STUDIES CHG MYOCARDIAL SPECT SINGLE STUDY AT REST OR STRESS Elinor Raman MD 254 [facility] [address] [place] [address] Referral ID Status Reason Start Date Expiration Date V isits Requested Visits Authorized [id number] Pending Review 11/21/2022 05/20/2023 5 5 * CV Imaging (Routine) - Pending Review Specialty Diagnoses / Procedures Referred By Guero t Referred To Contact Cardiology Diagnoses Essential hypertension 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) PVC (premature ventricular contraction) Procedures Transthoracic Echo (TTE) Complete [place] ECHO TRANSTHORC R-T 2D W/WO M-MODE REC F-UP/LMTD [place] DOP ECHOCARD COLOR FLOW VELOCITY MAPPING [place] DOP ECHOCARD PULSE WAVE W/SPECTRAL F-UP/LMTD STD Elinor Raman MD 254 [facility] [address] [place] [address] Referral ID Status Reason Start Date Expiration Date Visits Requested Visits Authorized [id number] Pending Review Perform Procedure 11/21/2022 05/20/2023 1 1 [facility] Work Phone: Reason for visit Narrative* Outpatient Procedure (Routine) - Closed Specialty Diagnoses / Procedures Referred By Guero butt Referred To Contact [facility] Diagnoses Abdominal pain, unspecified abdominal location Diarrhea, unspecified type Procedures COLONOSCOPY DIAGNOSTIC COLONOSCOPY FLX DX W/COLLJ SPEC WHEN PFRMD Taz Tejeda MD [address] [place] [address] [facility] [place] [address] Referral ID Status Reason Start Date Expiration Date V isits Requested Visits Authorized [id number] Closed Auto-Generate d Referral 10/28/2021 10/28/2022 1 1 [facility] Summary Purpose Family History No Family History [...] Recorded Date/ Time Advance Directives No May 26 021 1:59pm Chief Complaint DIANELYS WOMACK is [...] CT ABD & PELVIS W/CONTRAST Debbi Hammond, PRECISION MACHINIST.PILOT CAPTAIN [address] [place] [address] Ct Imaging Referral ID Status Reason Start Date Expiration Date Visits Requested Visits Authorized [id number] Pending Review Auto-Generat ed Referral 04/19/2022 05/19/2023 1 1 Specialty Diagnoses / Procedures Referred By Guero butt Referred To Contact [facility] Diagnoses Thoracoabdominal aortic aneurysm (TAAA) without rupture, unspecified part Procedures CONSULT TO VASCULAR SURGERY OFFICE/OUTPATIENT NEW HIGH MDM 60-74 MINUTES Gareth Vera MD [address] [place] [address] Referral ID Status Reason Start Date Expiration Date Visits Requested Visits Authorized [id number] Pending Review PCP Requested Referral 03/08/2022 03/08/2023 1 1 Additional Source Comments INFORMATION SOURCE (unrecogn ized section and content) DATE CREATED AUTHOR 08/15/2018 [facility] DATE CREATED AUTHOR AUTHOR'S ORGANIZ ATION 11/18/2021 [facility] DATE CREATED AUTHOR AUTHOR'S ORGANIZ ATION 03/25/2022 [facility] DATE CREATED AUTHOR AUTHOR'S ORGANIZ ATION 09/21/2022 [facility] DATE CREATED AUTHOR AUTHOR'S ORGANIZ ATION 09/21/2022 [facility] DATE CREATED AUTHOR AUTHOR'S ORGANIZ ATION 10/29/2022 [facility] DATE CREATED AUTHOR AUTHOR'S ORGANIZ ATION 07/25/2023 [facility] DATE CREATED AUTHOR AUTHOR'S ORGANIZ ATION 03/14/2024 [facility] DATE CREATED AUTHOR AUTHOR'S ORGANIZ ATION 03/24/2024 [facility] EPIC Care Teams (unrecognized sec [...] Active Daniel Ma MD Attending Provider Active Inspector Hairspring Relationship Specialty Start Date End Date Monika Lehman [address] [facility] [address] [place] [address] PCP - General Family Practice 03/12/15 Aman Quiroz MD [address] [facility] [address] [facility] [place] [id number] Referring Neurology 11/20/19 Inspector Hairspring Relationship Specialty Start Date End Date Monika Lehman [address] [facility] [address] [place] [address] PCP - General Family Medicine 03/12/15 Aman Quiroz MD [address] [place] [address] Referring Neurology 11/20/19 Team Status: Inactive Member Role Status Dates Monika Lehman MD Primary Care Provider Active Chucho Saldaña MD Emergency Provider Active Inspector Hairspring Relationship Specialty Start Date End Date Monika Lehman [address] [facility] [address] [place] [address] PCP - General Family Medicine 03/12/15 Aman Quiroz MD [address] [place] [address] Referring Neurology 11/20/19 Inspector Hairspring Relationship Specialty Start Date End Date Monika Lehmanfabio [address] [facility] [address] [place] [address] PCP - General Family Medicine 03/12/15 Aman Quiroz MD [address] [place] [address] Referring Neurology 11/20/19 Inspector Hairspring Relationship Specialty Start Date End Date Fallon Ceepatricia Velezfabio [address] [facility] [address] [place] [address] PCP - General Family Medicine 03/12/15 Aman Quiroz MD [address] [place] [address] Referring Neurology 11/20/19 Inspector Hairspring Relationship Specialty Start Date End Date Monika Lehmanfabio [address] [facility] [address] [place] [address] PCP - General Family Medicine 03/12/15 Aman Quiroz MD [address] [place] [address] Referring Neurology 11/20/19 Inspector Hairspring Relationship Specialty Start Date End Date Monika Lehmanfabio [address] [place] [address] [place] [address] PCP - General Family Medicine 03/12/15 Aman Quiroz MD [address] [place] [address] Referring Neurology 11/20/19 Inspector Hairspring Relationship Specialty Start Date End Date Monika Lehmanfabio [address] [place] [address] [place] [address] PCP - General Family Medicine 03/12/15 Aman Quiroz MD [address] [place] [address] Referring Neurology 11/20/19 Inspector Hairspring Relationship Specialty Start Date End Date Monika Lehmanfabio [address] [place] [place] [address] PCP - General Family Medicine 03/12/15 Aman Quiroz MD [address] [place] [address] Referring Neurology 11/20/19 Inspector Hairspring Relationship Specialty Start Date End Date Monika Lehmanfabio [address] [place] [place] [address] PCP - General Family Medicine 03/12/15 Aman Quiroz MD [address] [place] [address] Referring Neurology 11/20/19 Inspector Hairspring Relationship Specialty Start Date End Date Monika Lehmanfabio [address] [place] [place] [address] PCP - General Family Medicine 03/12/15 Aman Quiroz MD [address] [place] [address] Referring Neurology 11/20/19 Inspector Hairspring Relationship Specialty Start Date End Date FallonMonika mitchellmichael [address] [place] [address] [place] [address] PCP - General Family Medicine 03/12/15 Aman Quiroz MD [address] [place] [address] Referring Neurology 11/20/19 Inspector Hairspring Relationship Specialty Start Date End Date Monika Lehmanfabio [address] [place] [place] [address] PCP - General Family Medicine 03/12/15 Aman Quiroz MD [address] [place] [address] Referring Neurology 11/20/19 Inspector Hairspring Relationship Specialty Start Date End Date Monika Lehmanfabio [address] [place] [place] [address] PCP - General Family Medicine 03/12/15 Aman Quiroz MD [address] [place] [address] Referring Neurology 11/20/19 Inspector Hairspring Relationship Specialty Start Date End Date Monika Lehmanfabio [address] [place] [place] [address] PCP - General Family Medicine 03/12/15 Aman Quiroz MD [address] [place] [address] Referring Neurology 11/20/19 Inspector Hairspring Relationship Specialty Start Date End Date Cee Lehmanpatricia Carlylemichael [address] [facility] [address] [place] [address] PCP - General Family Medicine 03/12/15 Aman Quiroz MD [address] [place] [address] Referring Neurology 11/20/19 Inspector Hairspring Relationship Specialty Start Date End Date FallonMonika Jasonfabio [address] [facility] [address] [place] [address] PCP - General Family Medicine 03/12/15 Aman Quiroz MD [address] [place] [address] Referring Neurology 11/20/19 Inspector Hairspring Relationship Specialty Start Date End Date Monika Lehman MD [address] [facility] [address] [place] [address] PCP - General Family Medicine 03/12/15 Aman Quiroz MD [address] [place] [address] Referring Neurology 11/20/19 Inspector Hairspring Relationship Specialty Start Date End Date Monika Lehman MD [address] [facility] [address] [place] [address] PCP - General Family Medicine 03/12/15 Aman Quiroz MD [address] [place] [address] Referring Neurology 11/20/19 Inspector Hairspring Relationship Specialty Start Date End Date Monika Lehman MD [address] [place] [address] PCP - General 08/14/18 Inspector Hairspring Relationship Specialty Start Date End Date Monika Lehman MD [address] [place] [address] [place] [address] PCP - General 08/14/18 Inspector Hairspring Relationship Specialty Start Date End Date Monika Lehman MD [address] [place] [address] [place] [address] PCP - ACO Reach 07/07/22 Monika Lehman MD [address] [place] [address] [place] [address] PCP - General Family Medicine 08/03/22 Inspector Hairspring Relationship Specialty Start Date End Date Monika Lehman MD [address] [place] [address] [place] [address] PCP - ACO Reach 07/07/22 Monika Lehman MD [address] [place] [address] [place] [address] PCP - General Family Medicine 08/03/22 Inspector Hairspring Relationship Specialty Start Date End Date Monika Lehman MD [address] [facility] [address] [place] [address] PCP - General 08/14/18 [place] [address] [facility] [place] [address] Solar Field Service Technician Nephrology 07/19/23 Inspector Hairspring Relationship Specialty Start Date End Date Monika Lehman MD [address] [place] [address] [place] [address] PCP - ACO Reach 07/07/22 Monika Lehman MD [address] [place] [address] [place] [address] PCP - General Family Medicine 08/03/22 Inspector Hairspring Relationship Specialty Start Date End Date Monika Lehman MD [address] [place] [address] [place] [address] PCP - ACO Reach 07/07/22 Monika Lehman MD [address] [place] [address] PCP - General Family Medicine 08/03/22 Inspector Hairspring Relationship Specialty Start Date End Date Monika Lehman MD [address] [place], [place] [address] PCP - ACO Reach 07/07/22 Monika Lehman MD [address] [place] [address] PCP - General Family Medicine 08/03/22 Inspector [employer]spring Relationship Specialty Start Date End Date Monika Lehman MD [address] [place] [address] PCP - ACO Reach 07/07/22 Monika Lehman MD [address] [place] [address] PCP - General Family Medicine 08/03/22 Inspector Hairspring Relationship Specialty Start Date End Date Monika Lehman MD [address] [place] [address] PCP - ACO Reach 07/07/22 Monika Lehman MD [address] [facility] [address] [place] [address] PCP - General Family Medicine 08/03/22 Inspector Hairspring Relationship Specialty Start Date End Date Monika Lehman MD [address] [facility] [address] [place] [address] PCP - ACO Reach 07/07/22 Monika Lehman MD [address] [facility] [address] [place] [address] PCP - General Family Medicine 08/03/22 Inspector Hairspring Relationship Specialty Start Date End Date Monika Lehman MD [address] [facility] [address] [place] [address] PCP - ACO Reach 07/07/22 Monika Lehman MD [address] [facility] [address] [place] [address] PCP - General Family Medicine 08/03/22 Inspector Hairspring Relationship Specialty Start Date End Date Monika Lehman MD [address] [facility] [address] [place] [address] PCP - ACO Reach 07/07/22 Monika Lehman MD [address] [facility] [address] [place] [address] PCP - General Family Medicine 08/03/22 Goals [...] abdominal location Procedures CONSULT TO GASTROENTEROLOGY OFFICE/OUTPATIENT [facility] 60-74 MINUTES Erinn Lawson MD [address] [facility] [place] [address] Referral ID Status Reason Start Date Expiration Date Visits Requested Visits Authorized [id number] Pending Review PCP Requested Referral 10/28/2021 10/28/2022 1 1 Reason Comments Orders Egd/Colonoscopy unde r MAC Reason Comments Appointment Confirmation Pre-procedure i nstructions Specialty Diagnoses / Procedures Referred By Contac t Referred To Contact ENDOSCOPY Diagnoses dx Procedures dx [facility] Endoscopy [address] [address] Referral ID Status Reason Start Date Expiration Date Visits Re quested Visits Authorized [id number] 1 1 Reason Comments Results Reason Comments Colon polyp Reason Onset Date Comments Refill Request 02/24/2022 Reason Comments Pre-Op Visit Reason Comments Head Of It - Other Reason Comments Returning Patient's Call Reason Comments Medication Question Reason Comments Patient Update Reason Comments Appointment Reason Comments Abdominal Pain Reason Comments Erroneous encounter-disregard Reason Comments Orders Reason Comments Results Old mjl patient, dis cuss holtor Reason Comments Follow-up 4 month follow up. Specialty Diagnoses / Procedures Referred By Guero t Referred To Contact Physical Therapy Diagnoses Other muscle spasm Polyneuropathy, unspecified Vertigo of central origin Unsteadiness on feet Procedures [place] THERAPEUTIC PX 1/> AREAS EACH 15 MIN EXERCISES Aman Quiroz MD [address] [facility] [address] [place] [address] Aleah Pierce, PT [address] [place] [address] Referral ID Status Reason Start Date Expiration Date V isits Requested Visits Authorized [id number] Authorized 02/17/2023 08/16/2023 30 30 Reason Comments Anxiety Reason Onset Date Comments Med Refill 02/09/2024 Reason Comments questions Reason Comments Leg Swelling Reason Comments Sinusitis Source Comments (unrecognize d section and content) In the event this informatio n is protected by the Federal Confidentiality of Alcohol and Drug Abuse Patient Records regulations: The Federal rules restrict any use of the information to criminally investigate or prosecute any alcohol or drug abuse patient.[facility] the event this information is protected by the Federal Confidentiality of Alcohol and Drug Abuse Patient Records regulations: The Federal rules restrict any use of the information to criminally investigate or prosecute any alcohol or drug abuse patient.[facility] CenterIn the event this information is protected by the Federal Confidentiality of Alcohol and Drug Abuse Patient Records regulations: The Federal rules restrict any use of the information to criminally investigate or prosecute any alcohol or drug abuse patient.[facility] CenterIn the event this information is protected by the Federal Confidentiality of Alcohol and Drug Abuse Patient Records regulations: The Federal rules restrict any use of the information to criminally investigate or prosecute any alcohol or drug abuse patient.[facility] CenterIn the event this information is protected by the Federal Confidentiality of Alcohol and Drug Abuse Patient Records regulations: The Federal rules restrict any use of the information to criminally investigate or prosecute any alcohol or drug abuse patient.[facility] CenterIn the event this information is protected by the Federal Confidentiality of Alcohol and Drug Abuse Patient Records regulations: The Federal rules restrict any use of the information to criminally investigate or prosecute any alcohol or drug abuse patient.[facility] CenterIn the event this information is protected by the Federal Confidentiality of Alcohol and Drug Abuse Patient Records regulations: The Federal rules restrict any use of the information to criminally investigate or prosecute any alcohol or drug abuse patient.[facility] CenterIn the event this information is protected by the Federal Confidentiality of Alcohol and Drug Abuse Patient Records regulations: The Federal rules restrict any use of the information to criminally investigate or prosecute any alcohol or drug abuse patient.[facility] CenterIn the event this information is protected by the Federal Confidentiality of Alcohol and Drug Abuse Patient Records regulations: The Federal rules restrict any use of the information to criminally investigate or prosecute any alcohol or drug abuse patient.[facility] CenterIn the event this information is protected by the Federal Confidentiality of Alcohol and Drug Abuse Patient Records regulations: The Federal rules restrict any use of the information to criminally investigate or prosecute any alcohol or drug abuse patient.[facility] CenterIn the event this information is protected by the Federal Confidentiality of Alcohol and Drug Abuse Patient Records regulations: The Federal rules restrict any use of the information to criminally investigate or prosecute any alcohol or drug abuse patient.[facility] CenterIn the event this information is protected by the Federal Confidentiality of Alcohol and Drug Abuse Patient Records regulations: The Federal rules restrict any use of the information to criminally investigate or prosecute any alcohol or drug abuse patient.[facility] CenterIn the event this information is protected by the Federal Confidentiality of Alcohol and Drug Abuse Patient Records regulations: The Federal rules restrict any use of the information to criminally investigate or prosecute any alcohol or drug abuse patient.[facility] CenterIn the event this information is protected by the Federal Confidentiality of Alcohol and Drug Abuse Patient Records regulations: The Federal rules restrict any use of the information to criminally investigate or prosecute any alcohol or drug abuse patient.[facility] CenterIn the event this information is protected by the Federal Confidentiality of Alcohol and Drug Abuse Patient Records regulations: The Federal rules restrict any use of the information to criminally investigate or prosecute any alcohol or drug abuse patient.[facility] CenterIn the event this information is protected by the Federal Confidentiality of Alcohol and Drug Abuse Patient Records regulations: The Federal rules restrict any use of the information to criminally investigate or prosecute any alcohol or drug abuse patient.[facility] CenterIn the event this information is protected by the Federal Confidentiality of Alcohol and Drug Abuse Patient Records regulations: The Federal rules restrict any use of the information to criminally investigate or prosecute any alcohol or drug abuse patient.[facility] CenterIn the event this information is protected by the Federal Confidentiality of Alcohol and Drug Abuse Patient Records regulations: The Federal rules restrict any use of the information to criminally investigate or prosecute any alcohol or drug abuse patient.[facility] CenterIn the event this information is protected by the Federal Confidentiality of Alcohol and Drug Abuse Patient Records regulations: The Federal rules restrict any use of the information to criminally investigate or prosecute any alcohol or drug abuse patient.[facility] CenterIn the event this information is protected by the Federal Confidentiality of Alcohol and Drug Abuse Patient Records regulations: The Federal rules restrict any use of the information to criminally investigate or prosecute any alcohol or drug abuse patient.[facility] CenterIn the event this information is protected by the Federal Confidentiality of Alcohol and Drug Abuse Patient Records regulations: The Federal rules restrict any use of the information to criminally investigate or prosecute any alcohol or drug abuse patient.[facility] CenterIn the event this information is protected by the Federal Confidentiality of Alcohol and Drug Abuse Patient Records regulations: The Federal rules restrict any use of the information to criminally investigate or prosecute any alcohol or drug abuse patient.[facility] CenterIn the event this information is protected by the Federal Confidentiality of Alcohol and Drug Abuse Patient Records regulations: The Federal rules restrict any use of the information to criminally investigate or prosecute any alcohol or drug abuse patient.[facility] CenterIn the event this information is protected by the Federal Confidentiality of Alcohol and Drug Abuse Patient Records regulations: The Federal rules restrict any use of the information to criminally investigate or prosecute any alcohol or drug abuse patient.[facility] CenterIn the event this information is protected by the Federal Confidentiality of Alcohol and Drug Abuse Patient Records regulations: The Federal rules restrict any use of the information to criminally investigate or prosecute any alcohol or drug abuse patient.[facility] CenterIn the event this information is protected by the Federal Confidentiality of Alcohol and Drug Abuse Patient Records regulations: The Federal rules restrict any use of the information to criminally investigate or prosecute any alcohol or drug abuse patient.[facility] CenterIn the event this information is protected by the Federal Confidentiality of Alcohol and Drug Abuse Patient Records regulations: The Federal rules restrict any use of the information to criminally investigate or prosecute any alcohol or drug abuse patient.[facility] FOR RECORDS PERTAINING TO PATIENTS WHO ARE [...] BE BASED ON THE PRIMARY CLINICAL RECORDS. [facility]. provides no warranty or guarantee of the accuracy or completeness of information in this document.
[2024-03-26 12:05] LABS: C. Difficile PCR NEGATIVE
== END 2024-03-26 09:45 | disposition home or self-care (01) ==
LOC: LAB 09:44
PROVIDERS: PCP Family Medicine; Visit Provider Family Medicine
DX: R19.7 Diarrhea, unspecified (principal)
CPT/HCPCS: 87493

== ENCOUNTER 2024-04-10 09:41 | Outpatient (OUT) | payer MEDICARE, BC, SELFPAY ==
--- OUTSIDE RECORDS SUMMARY | 2024-04-10 09:47 | XMS_ITS | CCD ---
Author Organization [facility] Care Team Providers Care Neon Installer Name Role Phone Monika Lehman Unavailable Unavailable Unavailable MD Monika Lehman Primary Care Provider MD Nick Acosta Attending Provider [phone] MD Daniel Ma Attending Provider Nick Acosta Unavailable Monika Lehman Primary Care Provider Aman Quiroz MD Unavailable Monika Lehman Primary Care Provider Aman Quiroz MD Unavailable MD Monika Lehman Primary Care Provider [phone] MD Chucho Saldaña Emergency Provider Monika Lehman [...] Saldaña, Ms. Seema Romero Referring Unavai lable [place] Unavaila ble Charmaine, Daniel Attending Unavailable Charmaine, Daniel Referring Unavailable [place], Dr. Frank [facility] Unavaila ble Charmaine, Daniel Attending Unavailable Charmaine, Daniel Referring Unavailable [place], Dr. [facility] Unavaila ble Saldaña, Ms. Seema Romero Attending Wanda Saldaña, Ms. Seema Romero Referring Unavai lable [place], [facility]. [facility] Unavaila ble [place] , [facility] Provider [facility] Unavailable GORGUN, I FEI Attending Un[facility] Unavailable TAZ TEJEDA Referring Unavailable NIKO NIETO Attending [facility]ab [facility] Un[facility] Unavailable GORGUN, I FEI Admitting Unavailable GORGUN, I FEI Attending Unavailable TAZ TEJEDA Referring [facility]available TAZ TEJEDA Referring Unavailable PRECIOUS ROGERS Attending Unavailable [facility] Unavailable WANDA ROSADO Attending Unavailable [facility] Unavailable TAZ TEJEDA Referring Unavailable Debbi Casanova Attending Unavailable [facility] Unavailable WANDA ROSADO Attending Unavailable [facility] Unavailable GORGUN, I FEI Referring Unavailable GORGUN, I FEI Referring Unavailable FALLON, RUGPATRICIA RANDOLPHY Primary Care Unavailable GORGUN, I FEI Referring Unavailable FALLON, RUGPATRICIA RANDOLPHY Primary Care Unavailable GORGUN, I FEI Referring Unavailable FALLON, RUGEN TOMASAY Primary Care Unavailable Monika Lehman MD Tomasamichael Primary Care Provider [phone] Monika Lehman MD Primary Care Provider Monika Lehman MD Unavailable Monika Lehman MD Primary Care Provider Daniel Ma MD Unavailable ELINOR RAMAN Attending Unavailable FALLON, MONIKA RANDOLPHY Primary Care Unavailable DANIEL MA Attending Unavailable FALLON, RUGEN TOMASAY Primary Care Unavailable DANIEL MA Attending Unavailable FALLON, RUGEN TOMASAY Primary Care Unavailable Belen Barr RN Unavailable MONIKA LEHMAN M Attending Unavailable FALLON RUGPATRICIA M Attending Unavailable ALEAH PIERCE Attending Unavailable AMAN QUIROZ Referring Unavailable FALLON, RUGPATRICIA M Attending Unavailable RONDA MARTINEZ Attending Unavailable ЕЛЕНА MG Attending Unavailable AMAN QUIROZ Attending Unavailable FALLONMONIKA M Attending Unavailable ЕЛЕНА MG Attending Unavailable ЕЛЕНА MG Attending Unavailable FALLON, RUGPATRICIA M Attending Unavailable Allergies Allergy Classification Reported Allergen(s) Allergy Type Date of Onset Reaction(s) Facility Nitroimidazoles (antibiotic) (1 source) metroNIDAZOLE Drug Allergy 3 Other [facility] Work Phone: Penicillins (antibiotic) (1 source) Penicillins Drug Allergy 3 Other [facility] Work Phone: Quinolones (antibiotic) (1 source) Ciprofloxacin Drug Allergy 3 Other [facility] (20 sources) Ciprofloxacin; Translations: [ciprofloxacin] Drug Allergy 1 Unknown, Other [facility] (20 sources) metroNIDAZOLE; Translations: [Flagyl] Drug Allergy 7 Unknown, Other [facility] (11 sources) Penicillins; Translations: [Penicillins] Allergy to drug (finding) 6 Other [facility] [place] [facility] (4 sources) metroNIDAZOLE; Translations: [metronidazole] Drug Allergy 7 [facility] (20 sources) Vancomycin; Translations: [vancomycin] Drug Allergy 2 [facility] (1 source) Ciprofloxacin Drug Allergy 2 [facility] Rep[facility] (20 sources) levoFLOXacin; Translations: [LEVOFLOXACIN] Drug Allergy 6 Unknown [facility] (20 sources) Penicillins Drug Allergy 6 Unknown, Other: See Comments, Other [facility] (20 sources) Seasonal allergy; Translations: [SEASONAL ALLERGIES] Allergy to substance 1 Unknown [facility] (20 sources) Soy protein; Translations: [soy] Drug Allergy 6 Unknown [facility] (1 source) Amoxicillin / Clavulanate Drug Allergy 6 [facility] Rep[facility] (1 source) Ciprofloxacin Drug Allergy 7 [facility] (1 source) levoFLOXacin Drug Allergy 6 [facility] (1 source) metroNIDAZOLE Drug Allergy 7 [facility] Rep[facility] (1 source) Misc-Food; Translations: [Misc-Food] Food allergy (disorder) 6 [facility] Rep[facility] (16 sources) Penicillins Drug Allergy 6 Unknown, Other [facility] (16 sources) Octacosanol Drug Allergy 1 Unknown [facility] Healthcare Medications Current Medications Medication Drug Class(es) Dates Sig (Normalized) Sig (Original) [id number] 200 actuat albuterol 0.09 mg/actuat metered dose inhaler (7 sources) beta2-Adrenergic Agonist Start: 02-20-2024 End: 02-19-2025 [...] daily. 0 Active b complex vitamins capsule (7 sources) take 1 capsule by mouth once [...] DO Active ergocalciferol 1.25 mg oral capsule (12 sources) Provitamin D2 Compound Start: 01-13-2024 End: 12-14-2024 take 1 capsule by mouth every week ergocalciferol (Vitamin D2) 1.25 MG (99780 UT) capsule Indications: Vitamin D deficiency Take [...] directed Orally Active [facility]-four [facility] Gabapentin 400 MG [...] bromide 0.042 mg/actuat metered dose nasal spray (16 sources) Anticholinergic take 2 spray(s) nasal route [...] Active Comment on above: once daily. Magnesium (18 sources) magnesium 250 MG tablet 1 (one) time each day at the same time. Active magnesium 250 MG tablet 1 (one) time each day at the same time. 0 Active Magnesium 400 MG as directed Orally Not-Taking Misc Natural Products (YumVs Beet Root-Tart Aguilera) 250-0.5 MG chewable tablet (5 sources) Misc Natural Pro ducts (YumVs Beet [...] Active Start: 11-17-2021 [facility] daily omeprazole (PriLOSEC) [address] capsule Indications: Gastroesophageal reflux disease without esophagitis TAKE 1 CAPSULE BY MOUTH EVERY DAY 100 capsule 3 10/20/2022 Active take 40 mg by mouth once daily OMEPRAZOLE ORAL Take 40 mg by mouth once daily. 0 Active Comment on above: Take 40 mg by mouth once daily. polyethylene glycol 3350 17088 mg powder for oral solution (4 sources) [...] 17-Aug-2021 Complete Probiotic Product (PROBIOTIC BLEND PO) (16 sources) Probiotic Produc t (PROBIOTIC BLEND PO) [...] 0 Active spironolactone 25 mg oral tablet (7 sources) Aldosterone Antagonist Start: 02-20-2024 End: 05-20-2024 [...] in the morning. 0 Active bifidobacterium animalis [id number] unt / lactobacillus acidophilus [id number] unt oral capsule (3 sources) Probiotic CAPS [...] infarction, unspecified] Onset: 2 Chronic Adjustment disorders (19 sources) Adjustment disorder with anxious mood; Translations: [...] dementia, and amnestic and other cognitive disorders (18 sources) Dementia; Translations: [Unspecified dementia without behavioral disturbance] Onset: 1 08-22-2022 Chronic Diabetes mellitus without complication (2 sources) Abnormal glucose tolerance test; Translations: [Other abnormal glucose] 12-20-2023 Episodic Disorders of lipid metabolism (20 sources) Dyslipidemia; Translations: [Hyperlipidemia, unspecified] Onset: 0 08-22-2022 Chronic Esophageal disorders (20 sources) Gastroesophageal reflux disease without esophagitis; Translations: [Gastro-esophageal reflux disease without esophagitis] Onset: 1 Chronic Essential hypertension (20 sources) Essential hypertension; Translations: [Unspecified essential hypertension] Onset: 5 Chronic Heart valve disorders (16 sources) Aortic valve sclerosis; 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] Onset: 9 08-22-2022 Chronic Hepatitis (2 sources) Nonalcoholic steatohepatitis; Translations: [Nonalcoholic steatohepatitis (BISWAS)] Chronic Immunizations and screening for infectious disease (2 sources) Patient encounter status; Translations: [Encounter for immunization] 01-17-2024 Episodic Mood disorders (16 sources) Reactive depression (situational); Translations: [Major depressive [...] other than malignant neoplasm] Episodic Other aftercare (7 sources) Long-term current use of diuretic; Translations: [...] Episodic Other ear and sense organ disorders (16 sources) Hearing loss; Translations: [Unspecified hearing loss, unspecified ear] Onset: 0 08-22-2022 Chronic Other ear and sense organ disorders (2 sources) Excessive cerumen in ear canal ; Translations: [Impacted cerumen, left ear] 12-20-2023 Episodic Other endocrine disorders (16 sources) Hyperparathyroidism; Translations: [Hyperparathyroidism, unspecified] Onset: 4 08-07-2023 Chronic Other gastrointestinal disorders (4 sources) Irritable bowel syndrome with diarrhea; Translations: [IRRITABLE BOWEL SYND W/DIARRHEA] Onset: 2 Chronic Other gastrointestinal disorders (18 sources) Irritable bowel syndrome; Translations: [Irritable bowel syndrome without diarrhea] Onset: 3 08-22-2022 Chronic Other gastrointestinal disorders (4 sources) Diarrhea; Translations: [Diarrhea, unspecified] Episodic Other hereditary and degenerative nervous system conditions (2 sources) Hereditary ataxia; 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, unspecified] 02-20-2024 Chronic Other liver diseases (16 sources) Steatosis of liver; Translations: [Fatty (change of) liver, not elsewhere classified] Onset: 1 08-22-2022 Chronic Other liver diseases (20 sources) Non-alcoholic fatty liver disease without non-alcoholic steatohepatitis; Translations: [Fatty (change of) liver, not elsewhere classified] Onset: 1 08-22-2022 Chronic Other nervous system disorders (7 sources) Polyneuropathy; Translations: [Polyneuropathy, unspecified] Onset: 0 10-11-2022 Chronic Other nervous system disorders (16 sources) Chronic pain; Translations: [Other chronic pain] Onset: 7 08-22-2022 Chronic Other nervous system disorders (14 sources) Toxic polyneuropathy; Translations: [Polyneuropathy due to other toxic agents] Onset: 0 08-07-2023 Chronic Other nervous system disorders (2 sources) Chronic pain syndrome; Translations: [Chronic pain syndrome] 01-17-2024 Chronic Other nervous system disorders (1 source) Numbness; Translations: [Anesthesia of skin] 03-24-2023 Episodic Other nutritional; endocrine; and metabolic disorders (20 sources) Obesity; Translations: [Obesity, unspecified] Onset: 3 11-20-2022 Chronic Other upper respiratory disease (18 sources) Seasonal allergy; Translations: [Other seasonal allergic rhinitis] Onset: 3 08-22-2022 Chronic Other upper respiratory disease (16 sources) Chronic rhinitis; Translations: [Chronic rhinitis] Onset: 1 08-22-2022 Chronic Other upper respiratory infections (5 sources) Acute maxillary sinusitis; Translations: [Acute maxillary sinusitis, unspecified] Onset: 5 03-21-2024 Episodic Peripheral and visceral atherosclerosis (18 sources) Generalized atherosclerosis; Translations: [Generalized atherosclerosis] Onset: [...] Onset: 04-02-2019 11-20-2022 Episodic E Codes: Fall (16 sources) Fall in home; Translations: [Unspecified fall, initial encounter] Onset: 12-26-2022 12-26-2022 Episodic Fluid and electrolyte disorders (20 sources) Hypokalemia; Translations: [Hypopotassemia] Onset: 10-21-2021 11-17-2021 Episodic Neoplasms of unspecified nature or uncertain behavior (3 sources) Neoplasm of uncertain behavior of colon; Translations: [Neoplasm of uncertain behavior of colon] Onset: 02-24-2022 Episodic Nutritional deficiencies (18 sources) Cobalamin deficiency; Translations: [Deficiency of other specified B group vitamins] Onset: 10-07-2022 10-07-2022 Episodic Other aftercare (1 source) Other terminal computer operator (current) drug therapy; Translations: [OTH CUSTOM FEED CORN OPERATOR CURRENT DRUG THERAPY] Onset: 10-21-2021 Episodic Other aftercare (1 source) Encounter for follow-up examination after completed treatment for conditions other than malignant neoplasm; Translations: [Follow-up exam] Onset: 04-20-2022 Episodic Other connective tissue disease (4 sources) Pain in left arm; Translations: [PAIN IN LEFT ARM] Onset: 09-13-2021 Episodic Other connective tissue disease (17 sources) Spasm of cervical paraspinous muscle; Translations: [Other muscle spasm] Onset: 08-08-2022 08-08-2022 Episodic Other connective tissue disease (18 sources) Neurogenic pain; Translations: [Neuralgia and neuritis, unspecified] Onset: 10-07-2022 10-07-2022 Episodic Other gastrointestinal disorders (1 source) Diarrhea, unspecified; Translations: [Diarrhea, unspecified type] Onset: 12-06-2021 Episodic Other gastrointestinal disorders (18 sources) Constipation; Translations: [Constipation, unspecified] Onset: 08-01-2022 08-01-2022 Episodic Other nervous system disorders (17 sources) Unsteady when standing; Translations: [Unsteadiness on feet] Onset: 08-08-2022 08-08-2022 Episodic Other nervous system disorders (18 sources) White matter disease; Translations: [White matter disease, unspecified] Onset: 08-22-2022 08-22-2022 Episodic Other nutritional; endocrine; and metabolic disorders (20 sources) Overweight in adulthood with body mass index of 25 or more but less than 30; Translations: [Overweight] Onset: 11-20-2022 11-20-2022 Episodic Otitis media and related conditions (18 sources) Dysfunction of bilateral eustachian tubes; Translations: [...] Onset: 11-21-2022 Varicose veins of lower extremity (16 sources) Varicose vein of leg with phlebitis; Translations: [Varicose veins of unspecified lower extremity with inflammation] Onset: 11-03-2020 08-22-2022 Episodic Results Test Name Value Interpretation Reference Range Facility C. DIFFICILE PCRon C. DIFFICILE PCR Negative [facility] COMPREHENSIVE METABOLIC PANE Louie 03-12-2024 Albumin [Mass/Vol] 4.0 g/dL Normal 3.6-5.1 [facility] Comment on above: Performed By: #### 1 0231 #### [facility] [address] Director Of Financial Planning: Doug Trejo MD Albumin/Globulin [Mass ratio] 1.4 {ratio} Normal 1.0-2.5 [facility] Comment on above: Performed By: #### 1 0231 #### [facility] [address] [address] Director Of Financial Planning: Doug Trejo MD ALP [Catalytic activity/Vol] 127 U/L Normal 37-153 [facility] Comment on above: Performed By: #### 1 0231 #### [facility] [place] [address] Director Of Financial Planning: Doug Trejo MD ALT [Catalytic activity/Vol] 13 U/L Normal 6-29 [facility] Comment on above: Performed By: #### 1 0231 #### [facility] [place] [address] Director Of Financial Planning: Doug Trejo MD AST [Catalytic activity/Vol] 23 U/L Normal 10-35 [facility] Comment on above: Performed By: #### 1 0231 #### [facility] [place] [address] Director Of Financial Planning: Doug Trejo MD Bilirubin [Mass/Vol] 0.5 mg/dL Normal 0.2-1.2 [facility] Comment on above: Performed By: #### 1 0231 #### [facility] [place] [address] Director Of Financial Planning: Doug Trejo MD Calcium [Mass/Vol] 9.3 mg/dL Normal 8.6-10.4 [facility] Comment on above: Performed By: #### 1 0231 #### [facility] [place] [address] Director Of Financial Planning: Doug Trejo MD Chloride [Moles/Vol] 103 mmol/L Normal 98-110 [facility] Comment on above: Performed By: #### 1 0231 #### [facility] [place] [address] Director Of Financial Planning: Doug Trejo MD CO2 [Moles/Vol] 31 mmol/L Normal 20-32 [facility] Comment on above: Performed By: #### 1 0231 #### [facility] [place] [address] Director Of Financial Planning: Doug Trejo MD Creatinine [Mass/Vol] 1.07 mg/dL High 0.60-1.[address] [facility] Comment on above: Performed By: #### 1 0231 #### [facility] [place] [address] Director Of Financial Planning: Doug Trejo MD GFR/1.73 sq M.predicted among non-blacks MDRD (S/P/Bld) [Vol rate/Area] 55 mL/min/{1.73_m2} Low > OR = 60 [facility] Comment on above: Performed By: #### 1 0231 #### [facility] [place] [address] Director Of Financial Planning: Doug Trejo MD Globulin (S) [Mass/Vol] 2.8 g/dL Normal 1.9-3.7 [facility] Comment on above: Performed By: #### 1 0231 #### [facility] [place] [address] Director Of Financial Planning: Doug Trejo MD Glucose [Mass/Vol] 98 mg/dL Normal 65-99 [facility] Comment on above: Result Comment: Fasting reference interval Performed By: #### 1 0231 #### [facility] [place] [address] Director Of Financial Planning: Doug Trejo MD Potassium [Moles/Vol] 4.0 mmol/L Normal 3.5-5.[address] [facility] Comment on above: Performed By: #### 1 0231 #### [facility] [place] [address] Director Of Financial Planning: Doug Trejo MD Protein [Mass/Vol] 6.8 g/dL Normal 6.1-8.1 [facility] Comment on above: Performed By: #### 1 0231 #### [facility] [place] [address] Director Of Financial Planning: Doug Trejo MD Sodium [Moles/Vol] 141 mmol/L Normal 135-146 [facility] Comment on above: Performed By: #### 1 0231 #### [facility] [place] [address] Director Of Financial Planning: Doug Trjeo MD Urea nitrogen [Mass/Vol] 18 mg/dL Normal 7-25 [facility] Comment on above: Performed By: #### 1 0231 #### [facility] [place] [address] Director Of Financial Planning: Doug Trejo MD Urea nitrogen/Creatinine [Mass ratio] 17 mg/mg Normal 6-22 [facility] Comment on above: Performed By: #### 1 0231 #### [facility] [place] [address] Director Of Financial Planning: Doug Trejo MD CBC (H/H, RBC, INDICES, WBC, PLT)on 01-11-2024 Erythrocyte distribution width (RBC) [Ratio] 14.6 % Normal 11.0-15.0 [facility] Comment on above: Performed By: #### 1 759, 899, 496, 71218, 7600 #### [facility] [place] [address] Director Of Financial Planning: Doug Trejo MD Hematocrit (Bld) [Volume fraction] 40.2 % Normal 35.0-45.0 [facility] Comment on above: Performed By: #### 1 759, 899, 496, 00294, 7600 #### [facility] [place] [address] Director Of Financial Planning: Doug Trejo MD Hemoglobin (Bld) [Mass/Vol] 12.7 g/dL Normal 11.7-15.5 [facility] Comment on above: Performed By: #### 1 759, 899, 496, 32193, 7600 #### [facility] [place] [address] Director Of Financial Planning: Doug Trejo MD MCH (RBC) [Entitic mass] 26.7 pg Low 27.0-33.0 [facility] Comment on above: Performed By: #### 1 759, 899, 496, 14190, 7600 #### [facility] [place] [address] Director Of Financial Planning: Doug Trejo MD MCHC (RBC) [Mass/Vol] 31.6 [...] Performed By: #### 1 759, 899, 496, 94500, 7600 #### [facility] [place] [address] Director Of Financial Planning: Doug Trejo MD MCV (RBC) [Entitic vol] 84.5 fL Normal 80.0-100.0 [facility] Comment on above: Performed By: #### 1 759, 899, 496, 67903, 7600 #### [facility] [place] [address] Director Of Financial Planning: Doug Trejo MD Platelet mean volume (Bld) [Entitic vol] 10.6 fL Normal 7.5-12.5 [facility] Comment on above: Performed By: #### 1 759, 899, 496, 47228, 7600 #### [facility] [place] [address] Director Of Financial Planning: Doug Trejo MD Platelets (Bld) [#/Vol] 225 10*3/uL Normal 140-400 [facility] Comment on above: Performed By: #### 1 759, 899, 496, 59840, 7600 #### [facility] [place] [address] Director Of Financial Planning: Doug Trejo MD RBC (Bld) [#/Vol] 4.76 10*6/uL Normal 3.80-5.10 [facility] Comment on above: Performed By: #### 1 759, 899, 496, 23719, 7600 #### [facility] [address], [address] [place] [address] Director Of Financial Planning: Doug Trejo MD WBC (Bld) [#/Vol] 6.2 10*3/uL Normal 3.8-10.8 [facility] Comment on above: Performed By: #### 1 759, 899, 496, 11988, 7600 #### [facility] [address], [address] [place] [address] Director Of Financial Planning: Doug Trejo MD HEMOGLOBIN A1con 01-11-2024 HEMOGLOBIN [...] diagnosis of diabetes in children. According to [place] [employer] Association (ADA) guidelines, hemoglobin A1c <7.0% represents optimal control in non- diabetic patients. Different metrics may apply to specific patient populations. Standards of Medical Care in Diabetes(ADA). Performed By: #### 1 759, 899, 496, 86161, 7600 #### [facility] [address], [address] [place] [address] Director Of Financial Planning: Doug Trejo MD LIPID PANEL, STANDARDon 12-15 Cholesterol [Mass/Vol] 196 mg/dL Normal <200 [facility] Comment on above: Order Comment: FASTI NG:YES FASTING: YES Performed By: #### 1 759, 899, 496, 82148, 7600 #### [facility] [address], [address] [place] [address] Director Of Financial Planning: Doug Trejo MD Cholesterol in HDL [Mass/Vol] 64 mg/dL Normal > OR = 50 [facility] Comment on above: Order Comment: FASTI NG:YES FASTING: YES Performed By: #### 1 759, 899, 496, 16748, 7600 #### [facility] [place] [address] Director Of Financial Planning: Doug Trejo MD Cholesterol in LDL [Mass/Vol] [...] LDL-C. Rico TAPIA et al. ALEXUS. 2013;310(19): 2812-9942 (http://education.Openbravo.Catapooolt/faq/SPV215) Performed By: #### 1 759, 279, 496, 29733, 7600 #### [facility] [address], [address] [place] [address] Director Of Financial Planning: Doug Trejo MD Cholesterol.total/Choles terol in HDL [Mass ratio] 3.1 {ratio} Normal <5.0 [facility] Comment on above: Order Comment: FASTI NG:YES FASTING: YES Performed By: #### 1 759, 179, 496, 37733, 7600 #### [facility] [place] [address] Director Of Financial Planning: Doug Trejo MD NON HDL CHOLESTEROL 132 mg/dL (calc) High <130 [facility] Comment on above: Order Comment: FASTI NG:YES FASTING: YES Result Comment: For patients with diabetes plus 1 major ASCVD risk factor, treating to a non-HDL-C goal of <100 mg/dL (LDL-C of <70 mg/dL) is considered a therapeutic option. Performed By: #### 1 419, 889, 496, 61577, 7600 #### [facility] [address], [address] [place] [address] Director Of Financial Planning: Doug Trejo MD Triglyceride [Mass/Vol] 81 mg/dL Normal <150 [facility] Comment on above: Order Comment: FASTI NG:YES FASTING: YES Performed By: #### 1 759, 899, 496, 79851, 7600 #### [facility] [place] [address] Director Of Financial Planning: Doug Trejo MD TSHon 01-11-2024 TSH Qn 1.97 m[IU]/L Normal 0.40-4.50 [facility] Comment on above: Performed By: #### 1 759, 899, 496, 08517, 7600 #### [facility] [place] [address] Director Of Financial Planning: Doug Trejo MD VITAMIN D,25-OH,TOTAL,IAon 1 03-12-2023 [...] D, (D2,D3), LC/MS/MS is recommended: order code 22204 (patients >2yrs). See Note 1 Note 1 For additional information, please refer to http://education.Openbravo.Catapooolt/faq/PTS141 (This link is being provided for informational/ educational purposes only.) Performed By: #### 1 759, 899, 496, 54079, 7600 #### [facility] [place] [address] Director Of Financial Planning: Doug Trejo MD BASIC METABOLIC PANELon 07-14 Calcium [Mass/Vol] 9.5 mg/dL Normal 8.6-10.4 [facility] Comment on above: Performed By: #### 1 0165 #### [facility] [address] [address], [address] [place] [address] Director Of Financial Planning: Doug Trejo MD Chloride [Moles/Vol] 104 mmol/L Normal 98-110 Ques t Diagnostics Comment on above: Performed By: #### 1 0165 #### [facility] [place] [address] Director Of Financial Planning: Doug Trejo MD CO2 [Moles/Vol] 30 mmol/L Normal 20-32 [facility] Comment on above: Performed By: #### 1 0165 #### [facility] of [place] [address] Director Of Financial Planning: Doug Trejo MD Creatinine [Mass/Vol] 1.38 mg/dL High 0.60-1.[address] [facility] Comment on above: Performed By: #### 1 0165 #### [facility] of [place] [address] Director Of Financial Planning: Doug Trejo MD GFR/1.73 sq M.predicted among non-blacks MDRD (S/P/Bld) [Vol rate/Area] 40 mL/min/{1.73_m2} Low > OR = 60 [facility] Comment on above: Performed By: #### 1 0165 #### [facility] of [place] [address] Director Of Financial Planning: Doug Trejo MD Glucose [Mass/Vol] 90 mg/dL Normal 65-99 [facility] Comment on above: Result Comment: Fasting reference interval Performed By: #### 1 0165 #### [facility] of [place] [address] Director Of Financial Planning: Doug Trejo MD Potassium [Moles/Vol] 3.5 mmol/L Normal 3.5-5.[address] [facility] Comment on above: Performed By: #### 1 0165 #### [facility] of [place] [address] Director Of Financial Planning: Doug Trejo MD Sodium [Moles/Vol] 143 mmol/L Normal 135-146 [facility] Comment on above: Performed By: #### 1 0165 #### [facility] [address], [address] [place] [address] Director Of Financial Planning: Doug Trejo MD Urea nitrogen [Mass/Vol] 25 mg/dL Normal 7-25 [facility] Comment on above: Performed By: #### 1 0165 #### [facility] [address], [address] [place] [address] Director Of Financial Planning: Doug Trejo MD Urea nitrogen/Creatinine [Mass ratio] 18 mg/mg Normal 6-22 [facility] Comment on above: Performed By: #### 1 0165 #### [facility] [address], [address] [place] [address] Director Of Financial Planning: Doug Trejo MD ANES POSTPROC EVALon 023 ANES POSTPROC EVAL HNO ID: [id number] Author: Precious Rogers MD Service: ? Author [...] with this procedure. Documented by Iliana Montoya APRN.ELECTRONICS INSTALLER 10/25/2022 11:15 AM EDT SIGNATURE: Precious Benito MD PATIENT NAME: Dianelys Womack DATE: October 25, 2022 TIME: 7:22 PM CSN: [id number] Normal [facility] ANES PRE-OPon 10-25-2022 ANES PRE-OP HNO ID: [id number] Author: Precious Rogers MD Service: ? Author Type: Anesthesiologist Type: Anesthesia Preprocedure Evaluation Filed: 10/25/2022 10:40 AM Note Text: ANESTHESIOLOGY DAY OF SURGERY NOTE : 1950 Procedure Information Anesthesia Start Date/Time: 10/25/22 1030 Scheduled providers: Kenton Kapadia MD; Iliana Montoya APRN.ELECTRONICS INSTALLER; Precious Rogers MD Procedure: COLONOSCOPY DIAGNOSTIC Location: [...] October 25, 2022 TIME: 10:37 AM CSN: [id number] Normal [facility] COLONOSCOPY DIAGNOSTICon [facility] Colonoscopyon 10-25-2022 Colonoscopy Q3 Patient Name: [...] for surveillance. Procedure Code(s): --- Professional --- 07267, Colonoscopy, flexible; with removal of tumor(s), polyp(s), or other lesion(s) by snare technique Diagnosis Code(s): --- Professional --- Z12.11, Encounter for screening for malignant neoplasm of colon Z86.010, Personal history of colonic polyps Z98.890, Other specified postprocedural states D12.2, Benign neoplasm of ascending colon CPT copyright 2020 [employer]. All rights reserved. Attending Participation: I personally performed the entire procedure. Scope In: 10:37:51 AM Scope Out: 11:08:30 AM MD Kenton Rowe MD 10/25/2022 11:34:00 AM This report has been signed electronically by Kenton Kapadia MD Number of Addenda: 0 Note Initiated On: 10/25/2022 10:08 AM Normal [facility] NURSING PROGon 10-25-2022 NURSING PROG HNO ID: [id number] Author: Stephanie Benavides, RN Service: Nursing Author Type: Registered Nurse [...] Electronically Signed By: Stephanie Benavides RN Normal [facility] NURSING PROG HNO ID: [id number] Author: Corina Alcaraz LPN Service: Gastroenterology Author [...] Corina Alcaraz LPN In Department: GASTROENTEROLOGY Normal [facility] SURGICAL PATHOLOGYon 023 CASE REPORT Normal [facility] Comment on above: Order Comment: Speci men Type: TISSUE SPECIMENOrdering Facility: [facility] Address: [address] [place] [address] Result Comment: Surg ical Pathology Report Case: [id number] Authorizing Provider: Kenton Kapadia MD Collected: 10/25/2022 11:06 AM Ordering Location: Gastroenterology Received: 10/25/2022 06:28 PM Pathologist: Vishnu Carlton MD Specimen: ASCENDING COLON POLYP Performed By: #### S ####[facility] [id number] [address] STATES OF [facility] LABCLIA [id number] [address] FINAL DIAGNOSIS Normal [facility] Comment on above: Order Comment: Magnus montoya Type: TISSUE SPECIMENOrdering Facility: [facility] Address: [address] [place] [address] Result Comment: A. A scending colon, polypectomy: - Fragments of tubular adenoma. Performed By: #### S ####[facility] [id number] [address] LABCLIA [id number] [address] OF [place] FINAL PERFORMING LAB Normal [facility] Comment on above: Order Comment: Speci men Type: TISSUE SPECIMENOrdering Facility: [facility] Address: [address] [place] [address] Result Comment: Diag nostic interpretation performed at [facility], [address] [place] [address] CLIA# [id number] Senior Hr Manager: Gloria Sanz M.D. Performed By: #### S ####[facility] [id number] [address] LABCLIA [id number] [address] STATES OF [facility] GROSS DESCRIPTION Normal [facility] Comment on above: Order Comment: Speci men Type: TISSUE SPECIMENOrdering Facility: [facility] Address: [address] [place] [address] Result Comment: A. A SCENDING COLON POLYP Received in formalin are multiple pieces of pascual, soft tissue aggregating to 1.5 x 0.2 x 0.2 cm. Totally submitted in one cassette. Gross examination performed at [facility], [address] October 26, 2022 12:06 AM Performed By: #### S ####[facility] [id number] [address] LABCLIA [id number] [address] STATES OF [place] CNPNon 10-18-2022 CNPN Telephone ([facility]) ---- DIANELYS WOMACK ([id number]) 1950 F Date Time Provider Department 10/18/22 SWATHI VERDUZCO [facility] During your visit today, we recorded the following information about you: Swathi Verduzco RN 10/18/2022 9:46 AM Signed Attempted to reach the patient at the contact number that they provided [phone] (home) . 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 they must have a responsible adult [...] Number to call with questions or concerns [phone] Number to call to cancel their procedure [phone] Swathi Verduzco RN Allergies As of Date: [...] Status:Closed by SWATHI VERDUZCO on 10/18/22 Normal [facility] Established Visit (Nephrolog y)on 09-20-2022 Established Visit (Nephrology) Diagnoses/Problems CKD (chronic kidney disease), stage III (585.3) (N18.30) Essential hypertension (401.9) (I10) Orders CKD (chronic kidney disease), stage III, Essential hypertension Basic Metabolic Panel; Status:Active; Requested for:01Ruk7227; Parathormone Intact, Serum; Status:Active; Requested for:39Lgd2140; Vitamin D 25-Hydroxy; Status:Active; Requested for:69Muf0281; Essential hypertension Renew: amLODIPine Besylate 10 MG [...] daily Vitals Vital Signs Recorded: 20Sep2022 12:51PM Gjkkmbhbowq41.2 F Heart Rate90 Kmbwaacl958, RUE, Sitting Iysbxbdbv115, RUE, Sitting Height5 ft 3 in Sjmcvt596 lb BMI Rbtyzibhox67.23 kg/m2 BSA Calculated1.78 Physical Exam General: The [...] Moves extremities. (more content not included)... Normal [facility] Cardiovasc Arrhythmia Result son 05-12-2022 Cardiovasc Arrhythmia Results Reason For Visit Reason for Visit: Holter Monitor: DIANELYS is here for the application of a 24 hour Holter monitor. Ordering Physician: Seema Jim NP Diagnosis: PVC [facility] equipment agreement signed. DIANELYS understands monitor is to be returned on: 05/13/2022 Monitor number [id number] applied. Holter monitor returned and downloaded. 05/18/2022 [...] Appointments Date/TimeProviderSp ecialtySite 09/20/2022 12:50 PMDaniel Ma MD[address] Dominguez 3 DO 05/08/2023 01:00 PMElinor Raman, CXBkawyhsrer045 [address] Alberto 250 DO Signatures Electronically signed by : Dima Minor MD; May 23 2022 4:14PM EST (Author) Electronically signed by : Seema Saldaña, MATTRESS STUFFER-RIGGER THIRD; May 24 2022 2:39PM EST (Author) Normal [facility] Office Visit (Cardiology)on 05-04-2022 Follow-up visit Diagnoses/Problems [...] Adverse Reaction; (more content not included)... Normal [facility] Tobacco Screening.on 023 Adult depression screening assessment No [facility] [employer] DO Work Phone: Fall risk assessment b) One or more falls in the last year [facility] [employer] DO Work Phone: Tobacco use status [facility] b) No M [facility] [employer] DO Work Phone: Magdiel [facility] ---- DIANELYS WOMACK ([id number]) 1950 F Date Time Provider Department 03/28/22 Gareth VERA During your visit today, we recorded the following information about you: Stephanie Maradiaga [facility] 03/28/2022 2:00 PM Signed [phone] Dianelys Womack complains of watery diarrhea. Lety [...] RN - Fully Assessed Reason for Visit: Impress Associate - Other [3602] Prescriptions as of 03/28/2022 [...] Encounter Status:Closed by LETY QUINONES on 03/28/22 [facility] Telephone ([facility]) ---- DIANELYS WOMACK ([id number]) 1950 F Date Time Provider Department 03/28/22 Gareth VERA During your visit today, we recorded the following information about you: Kathrine Abi [facility] 03/28/2022 12:15 PM Signed Dianelys Womack [phone], have questions no info given. Lety Quinones [...] Fully Assessed Reason for Visit: Patient Question [7854] Prescriptions as of 03/28/2022 - neomycin 500 [...] intubation [Z91.89] 02/24/2022 Encounter Status:[facility] 03/28/22 Normal [facility] CTA ABD/PELVIS WO W CONon CTA ABD/PELVIS [...] NATALIE FRANCO Date: 2022-03-24 08:09 Normal [facility] CREATININEon 03-23-2022 Creatinine [Mass/Vol] 0.97 mg/dL Normal 0.55-1.02 [facility] Comment on above: Performed By: #### C DOYLE ####[facility] [address] [place] [id number]. Sheila Mittal EGFR-AF GABONESE >60 Normal >=60 [facility] Comment on above: Performed By: #### C DOYLE ####[facility] [address] [place] [address]DrBubba Mittal EGFR-NON AF GABONESE 56 mL/min/1.73m2 Critically low >=60 [facility] Comment on above: Performed By: #### C DOYLE ####[facility] [address] [place], [place] [address]Bk. Sheila Mittal Established Visit (Nephrolog y)on 03-22-2022 Established Visit (Nephrology) Diagnoses/Problems CKD (chronic kidney disease), stage III (585.3) (N18.30) Essential hypertension (401.9) (I10) Orders CKD (chronic kidney disease), stage III, Essential hypertension Basic Metabolic Panel; Status:Active; Requested for:75Bdo4118; Parathormone Intact, Serum; Status:Active; Requested for:42Zgo1083; Phosphorus, Serum; Status:Active; Requested for:85Onz1889; Vitamin D 25-Hydroxy; Status:Active; Requested for:93Zpe5903; Provider Impressions 1. Hypertension. Blood pressure is [...] daily Vitals Vital Signs Recorded: 22Mar2022 03:35PM Bzjavqeiile62.1 F Heart Rate60 Cbpemoyv553, LUE, Sitting Dxzsyffhf35, LUE, Sitting Height5 ft 3 in Krqmef104 lb BMI Wcncrypszy07.81 kg/m2 BSA Calculated1.74 Tobacco Useb) No Falls [...] Exam: Speech is fluent. Moves extremities. Results/Data [facility] Basic Metabolic Mcnye36Dvr0833 10:05[facility] [address] [place] [address] (more content not included)... Normal [facility] Tobacco Screening.on 023 Fall risk assessment b) One or more falls in the last year -[facility] 3 DO Work Phone: Tobacco use status [facility] b) No M P-[facility] 3 DO Work Phone: Magdiel 03-10-2022 [facility] Telephone ([facility]) ---- DIANELYS WOMACK ([id number]) 1950 F Date Time Provider Department 03/10/22 Gareth VREA During your visit today, we recorded the following information about you: Stephanie Maradiaga [facility] 03/10/2022 1:30 PM Signed [phone] Dianelys Womack asked to speak with Lety. 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 Stephanie Maradiaga [facility] 03/09/2022 2:39 PM Signed I called patient and left message. An order for vascular surgery consult was placed. A message was sent to our schedulers to coordinate, however, she can call herself to schedule [phone] Allergies As of Date: 03/08/2022 Noted Allergy [...] Status:Closed by STEPHANIE JONES on 03/09/22 Normal [facility] OPERATIVE NOon 03-04-2022 OPERATIVE NO HNO ID: [id number] Author: Gareth Vera MD Service: Colorectal Author Type: Physician Type: Operative Report Filed: 03/04/2022 6:56 AM Note Text: [facility] - Operative Report [address] [place] [address] [address] : 1950 AGE: 71. SEX: F PATIENT TYPE: A HOSP SVC: CRS LOCATION: [place] [address] ATTENDING PHYSICIAN: Fei Vera M.D. CSN NUMBER: [id number] DATE OF SURGERY/PROCEDURE: 03/03/2022 INCISION/PROCEDURE START TIME: 12:56 PM INCISION CLOSE/PROCEDURE END TIME: 3:38 PM PREOPERATIVE DIAGNOSIS: Rectal LST POSTOPERATIVE DIAGNOSIS: Same SURGEON: Fei Vera M.D. DIRECTOR PROCESS ENGINEERING: DIRECTOR PROCESS ENGINEERING: Pierre Tinoco MD. No qualified resident available. He participated in all portions of the surgery documented. This includes patient positioning, abdominal access, exposure, dissection and abdominal closure. . No qualified resident was available and he was instrumental in huddling and assistance and closure of the procedure. SURGERY/PROCEDURE: Endoscopic submucosal dissection (60164) and transanal endoscopic removal of the larger [...] portions of the operation. Fei Vera M.D. EG:[id number] /[id number] Normal [facility] ANES POSTPROC EVALon 023 ANES POSTPROC EVAL HNO ID: [id number] Author: Lakeshia Delacruz MD, PhD Service: ? Author Type: Anesthesiologist Type: Anesthesia Postprocedure Evaluation Filed: 03/03/2022 9:43 PM Note Text: POST ANESTHESIA EVALUATION NOTE : 1950 Procedure Summary Date: 03/03/22 Room / Location: [facility]IN [facility] Anesthesia Start: 1207 Anesthesia [...] 1803 Temp 36.4 ?C (97.5 ?F) 03/03/22 180 HR SpO2 57 03/03/22 1803 Resp 16 03/03/22 1803 SpO2 98 % 03/03/22 180 Post Anesthesia [...] with this procedure. Documented by Rohini Stephenson APRN.ELECTRONICS INSTALLER 03/03/2022 3:04 PM EST SIGNATURE: Lakeshia Delacruz MD, PhD PATIENT NAME: Dianelys Womack DATE: March 03, 2022 TIME: 9:43 PM CSN: [id number] Normal [facility] ANES PRE-OPon 03-03-2022 ANES PRE-OP HNO ID: [id number] Author: Lakeshia Delacruz MD, PhD Service: ? Author Type: Anesthesiologist Type: Anesthesia Preprocedure Evaluation Filed: 03/03/2022 11:43 AM Note Text: ANESTHESIOLOGY DAY OF SURGERY NOTE : 1950 Procedure Information Date/Time: 03/03/22 1115 Procedures: COMBINED CO2 COLONOSCOPY AND LAPAROSCOPY (Anus) TAMIS EXC RECTAL TUMOR TRANSANAL MINIMALLY INVASIVE SURGERY (Anus) Location: [facility] Surgeons: Gareth Vera MD [...] March 03, 2022 TIME: 11:39 AM CSN: [id number] Normal [facility] BRIEF OP NOTon 03-03-2022 BRIEF OP NOT HNO ID: [id number] Author: Pollo Cardenas MD, PhD Service: Colorectal Author Type: Physician Type: Brief Op Note Filed: 03/03/2022 3:30 PM Note Text: BRIEF OPERATIVE NOTE - COLORECTAL SURGERY Log ID: [id number] Surgery/Procedure Date: 03/03/2022 Incision/Procedure Start Time: 12:56 PM Incision Close/Procedure End Time: 3:26 PM Surgeon(s) and Eligibility Analyst(s): Surgeon(s) and Role: * Gareth Vera MD [...] March 03, 2022 TIME: 3:26 PM Normal [facility] COLONOSCOPY (THERAPEUTIC)on 03-03-2022 [facility] Colonoscopyon 03-03-2022 Colonoscopy OR Gastrointestinal Endoscopy [...] was minimal. Procedure Start: Procedure End: Normal [facility] SURGICAL PATHOLOGYon 023 CASE REPORT Normal [facility] Comment on above: Order Comment: Speci men Type: TISSUE SPECIMENOrdering Facility: [facility] Address: [address] [place] [address] [place] [address] Result Comment: Surg [facility] Pathology Report Case: [id number] Authorizing Provider: Gareth Vera MD Collected: 03/03/2022 01:26 PM Ordering Location: Admitting Received: 03/03/2022 05:31 PM Pathologist: Huong Cortez MD Specimens: A) - COLON POLYP, DESCENDING COLON POLYP B) - RECTAL POLYP Performed By: #### S ####[facility] LABCLIA [id number] [address] CLINICAL HISTORY Normal [facility] Comment on above: Order Comment: Speci men Type: TISSUE SPECIMENOrdering Facility: [facility] Address: [address] [place] [address] Result Comment: Pre- op diagnosis: Rectal mass [K62.89] Performed By: #### S ####[facility] LABCLIA [id number] [address] FINAL DIAGNOSIS Normal [facility] Comment on above: Order Comment: Speci men Type: TISSUE SPECIMENOrdering Facility: [facility] Address: [address] [place] [address] Result Comment: A. C olon, descending polyp, polypectomy: - Fragments of tubular adenoma B. 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 - Low-grade dysplasia focally present at the peripheral mucosal margin. ES/HH 03/08/2022 Performed By: #### S ####[facility] LABCLIA [id number] [address] FINAL PERFORMING LAB Normal [facility] Comment on above: Order Comment: Speci men Type: TISSUE SPECIMENOrdering Facility: [facility] Address: [address] [place] [address] Result Comment: Diag nostic interpretation performed at [facility], [address] [address] CLIA# [id number] Senior Hr Manager: Johnny Rich M.D. Performed By: #### S ####[facility]THWOODSIA [id number] [place] [address] [place] GROSS DESCRIPTION A. COLON POLYP Normal [facility] Comment on above: Order Comment: Speci men Type: TISSUE SPECIMENOrdering Facility: [facility] Address: [address] [id number] Result Comment: Rece ived in formalin with the patient's name, medical record number, and descending colon polyp is a 2.5 x 0.3 x 0.2 cm aggregate of pascual soft tissue fragments. Submitted in A1 and A2. Gross examination performed at [facility], [facility] [place] [address] TTN 03/03/2022 9:21 PM B. RECTAL POLYP [...] margin, perpendicular sections Gross examination performed at [facility], [facility] [address] 03/04/22 4:00 PM Performed By: #### S ####[facility] LABIA [id number] [place] [id number] [place] CNPKaelyn 03-01-2022 CNPN Telephone ([facility]) ---- VUDIANELYS Omi ([id number]) 1950 F Date Time Provider Department 03/01/22 Gareth VERA During your visit today, we recorded the following information about you: Stephanie Martinejanuary [facility] 03/01/2022 4:19 [...] Date Reviewed: 02/24/2022 Reviewed by: Karson Monte APRN.RIGGER THIRD - Fully Assessed Reason for Visit: Impress Associate - Other [7852] Prescriptions as of 03/02/2022 - neomycin 500 [...] Encounter Status:Closed by LETY QUINONES on 03/02/22 [facility] Telephone ([facility]) ---- DIANELYS WOMACK ([id number]) 1950 F Date Time Provider Department 03/01/22 Gareth VERA During your visit today, we recorded the following information about you: Cayden Alex [facility] 03/01/2022 11:53 AM Signed Dianelys Womack did not receive any information by mail. As discussed, please fax to Елена feliz [phone] Allergies As of Date: 03/01/2022 Noted Allergy Reaction CIPROFLOXACIN 10/05/2020 16 - Unknown Flagyl (METRONIDAZOLE) 08/04/2016 16 - Unknown LEVOFLOXACIN 03/10/2015 16 - Unknown PENICILLINS 03/10/2015 16 - Unknown 14 - Other: See Comments SEASONAL ALLERGIES 10/05/2020 16 - Unknown SOY 05/16/2015 16 - Unknown VANCOMYCIN 11/17/2021 16 - Unknown Date Reviewed: 02/24/2022 Reviewed by: Karson Monte APRN.RIGGER THIRD - Fully Assessed Reason for Visit: Patient [...] difficult intubation [Z91.89] 02/24/2022 Encounter Status:[facility] Magdiel 02-28-2022 [place]AN [place]IE[place] Telephone ([facility]SM[facility]ah) ---- DIANELYS WOMACK ([id number]) 1950 F Date Time Provider Department 02/28/22 Gareth VERA During your visit today, we recorded the following information about you: Stephanie Maradiaga [facility] 02/28/2022 9:27 AM Signed [phone] Dianelys Womack has questions about meds she [...] to proceed with care with CV at [facility] - I am happy to [...] Date Reviewed: 02/24/2022 Reviewed by: Karson Monte APRN.RIGGER THIRD - Fully Assessed Reason for Visit: Impress Associate - Other [3002] Prescriptions as of 02/28/2022 - neomycin 500 [...] Status:Closed by LETY QUINONES on 02/28/22 Normal [facility] CBC panel Auto (Bld)on 02-24 Erythrocyte distribution width (RBC) [Ratio] 14.6 % Normal 11.5-15.0 [facility] Comment on above: Order Comment: Speci men Type: BLOOD SPECIMENOrdering Facility: [facility] Address: [address] [place] [address] Performed By: #### 5 8410-2 ####[facility] LABCLIA [id number] [address] [place] Hematocrit (Bld) [Volume fraction] 38.0 % Normal 36.0-46.0 [facility] Comment on above: Order Comment: Speci men Type: BLOOD SPECIMENOrdering Facility: [facility] [facility] Address: [address] Performed By: #### 5 8410-2 ####[facility] LABIA [id number] [place] [address] [place] Hemoglobin (Bld) [Mass/Vol] 12.1 g/dL Normal 11.5-15.5 [facility] Comment on above: Order Comment: Speci men Type: BLOOD SPECIMENOrdering Facility: [facility] Address: [address] Performed By: #### 5 8410-2 ####[facility] LABIA [id number] [place] [address] [place] MCH (RBC) [Entitic mass] 26.7 pg Normal 26.0-34.0 [facility] Comment on above: Order Comment: Speci men Type: BLOOD SPECIMENOrdering Facility: [facility] Address: [address] Performed By: #### 5 8410-2 ####[facility] LABCLIA [id number] [place] [address] [place] MCHC (RBC) [Mass/Vol] 31.8 g/dL Normal 30.5-36.0 [facility] Comment on above: Order Comment: Speci men Type: BLOOD SPECIMENOrdering Facility: [facility] Address: [address] Performed By: #### 5 8410-2 ####[facility] LABCLIA [id number] [place] [address] [place] MCV (RBC) [Entitic vol] 83.7 fL Normal 80.0-100.0 [facility] Comment on above: Order Comment: Speci men Type: BLOOD SPECIMENOrdering Facility: [facility] Address: [address] [place] [address] Performed By: #### 5 8410-2 ####[facility] LABIA [id number] [address] [place] Nucleated RBC (Bld) [#/Vol] 10*3/uL Normal <0.01 [facility] Comment on above: Order Comment: Speci men Type: BLOOD SPECIMENOrdering Facility: [facility] Address: [address] [place], [place] [address] Performed By: #### 5 8410-2 ####[facility] LABIA [id number] [address] OF [facility] Platelet mean volume (Bld) [Entitic vol] 10.6 fL Normal 9.0-12.7 [facility] Comment on above: Order Comment: Speci men Type: BLOOD SPECIMENOrdering Facility: [facility] Address: [address] [place], [place] [address] Performed By: #### 5 8410-2 ####[facility] LABIA [id number] [place] [address] [place] Platelets (Bld) [#/Vol] 161 10*3/uL Normal 150-400 [facility] Comment on above: Order Comment: Speci men Type: BLOOD SPECIMENOrdering Facility: [facility] Address: [address] [place], [place] [address] Performed By: #### 5 8410-2 ####[facility] LABCLIA [id number] [place] [address] [place] RBC (Bld) [#/Vol] 4.54 10*6/uL Normal 3.90-5.20 [facility] Comment on above: Order Comment: Speci men Type: BLOOD SPECIMENOrdering Facility: [facility] Address: [place] [address] Performed By: #### 5 8410-2 ####[facility] LABCLIA [id number] [place] [address] [place] WBC (Bld) [#/Vol] 6.18 10*3/uL Normal 3.70-11.00 [facility] Comment on above: Order Comment: Speci men Type: BLOOD SPECIMENOrdering Facility: [facility] Address: [place] [address] Performed By: #### 5 8410-2 ####[facility] [id number] [address] CEA SerPl-ncon 02-24-2022 Carcinoembryonic Ag [Mass/Vol] 1.3 ng/mL Normal <=2.9 [facility] Comment on above: Order Comment: Speci men Type: BLOOD SPECIMENOrdering Facility: [facility] Address: [address] [place] [address] Result Comment: Carc inoembryonic antigen test is used as an aid in monitoring response to treatment or recurrence in patients with established colorectal, breast, lung, prostatic, pancreatic, and ovarian carcinomas. Clinical correlation is required. The Carcinoembryonic antigen test was performed using the [employer] Un[employer] DXI paramagnetic particle chemiluminescent immunoassay method. Results obtained with different assay methods or kits cannot be used interchangeably. Performed By: #### 2 039-6 ####[facility] LABIA [id number] [address] [place] Magdiel 02-24-2022 JUAN DIEGO Telephone ([facility]) ---- DIANELYS WOMACK ([id number]) 1950 F Date Time Provider Department 02/24/22 [...] Date Reviewed: 02/24/2022 Reviewed by: Karson Monte APRN.RIGGER THIRD - Fully Assessed Reason for Visit: Impress Associate - Other [6042] Prescriptions as of 02/24/2022 - polyethylene glycol [...] Encounter Status:Closed by LETY QUINONES on 02/24/22 [facility] Telephone ([facility]) ---- DIANELYS WOMACK ([id number]) 1950 F Date Time Provider Department 02/24/22 Gareth VERA During your visit today, we recorded the following information about you: Blaine Herring 02/24/2022 12:13 PM Signed The Patient is returning the nurses call back. Please call patient at [phone] Lety Quinones RN 02/24/2022 12:35 PM Signed [...] Date Reviewed: 02/24/2022 Reviewed by: Karson Monte APRN.RIGGER THIRD - Fully Assessed Reason for Visit: Returning [...] Status:Closed by BLAINE HERRING on 02/24/22 Normal [facility] CONFIRM BLOOD TYPEon 023 ABO O Normal [facility] Comment on above: Order Comment: Speci men Type: BLOOD SPECIMEN Ordering Facility: [facility] Address: [address] [place] [address] Performed By: #### C ONABO #### [facility] CLIA [id number] 9500 [place] [address] [place] Rh Nom (Bld) Positive Normal [facility] Comment on above: Order Comment: Speci men Type: BLOOD SPECIMEN Ordering Facility: [facility] Address: [address] [place] [address] Performed By: #### C ONABO #### [facility] CLIA [id number] [address] [place] [address] [place] Comprehensive metabolic 2000 panelon 02-24-2022 Albumin [Mass/Vol] 3.8 g/dL Low 3.9-4.[address] [facility] Comment on above: Order Comment: Speci men Type: BLOOD SPECIMENOrdering Facility: [facility] Address: [address] [place] [address] Performed By: #### 2 4323-8 ####[facility] LABCLIA [id number] [place] [address] [place] ALP [Catalytic activity/Vol] 152 U/L High 34-123 [facility] Comment on above: Order Comment: Speci men Type: BLOOD SPECIMENOrdering Facility: [facility] Address: [address] [place] [address] Performed By: #### 2 4323-8 ####[facility] LABCLIA [id number] [place] [address] [place] ALT [Catalytic activity/Vol] 17 U/L Normal 7-38 [facility] Comment on above: Order Comment: Speci men Type: BLOOD SPECIMENOrdering Facility: [facility] Address: [address] [place] [address] Performed By: #### 2 4323-8 ####[facility] LABCLIA [id number] [place] [address] [place] Anion gap [Moles/Vol] 11 mmol/L Normal 9-18 [facility] Comment on above: Order Comment: Speci men Type: BLOOD SPECIMENOrdering Facility: [facility] Address: [address] [place] [address] Performed By: #### 2 4323-8 ####[facility] LABCLIA [id number] [place] [address] [place] AST [Catalytic activity/Vol] 30 U/L Normal 13-35 [facility] Comment on above: Order Comment: Speci men Type: BLOOD SPECIMENOrdering Facility: [facility] Address: [address] [place], [place] [address] Performed By: #### 2 4323-8 ####[facility] LABCLIA [id number] [place] [address] [place] Bilirubin [Mass/Vol] 0.4 mg/dL Normal 0.2-1.3 [facility] Comment on above: Order Comment: Speci men Type: BLOOD SPECIMENOrdering Facility: [facility] Address: [address] Performed By: #### 2 4323-8 ####[facility] LABCLIA [id number] [place] [address] [place] Calcium [Mass/Vol] 10.0 mg/dL Normal 8.5-10.[address] [facility] Comment on above: Order Comment: Speci men Type: BLOOD SPECIMENOrdering Facility: [facility] Address: [address] Performed By: #### 2 4323-8 ####[facility] LABCLIA [id number] [place] [address] [place] Chloride [Moles/Vol] 105 mmol/L Normal 97-105 [facility] Comment on above: Order Comment: Speci men Type: BLOOD SPECIMENOrdering Facility: [facility] Address: [address] [place] [address] Performed By: #### 2 4323-8 ####[facility] LABCLIA [id number] [place] [address] [place] CO2 [Moles/Vol] 22 mmol/L Normal 22-30 [facility] Comment on above: Order Comment: Speci men Type: BLOOD SPECIMENOrdering Facility: [facility] Address: [address] Performed By: #### 2 4323-8 ####[facility] LABCLIA [id number] [place] [address] [place] Creatinine [Mass/Vol] 0.82 mg/dL Normal 0.58-0.96 [facility] Comment on above: Order Comment: Speci men Type: BLOOD SPECIMENOrdering Facility: [facility] Address: [address] Performed By: #### 2 4323-8 ####[facility] LABCLIA [id number] [place] [address] [place] ESTIMATED GLOMERULAR FILTRATION RATE 76 mL/min/1.73m??? Normal >=60 [facility] Comment on above: Order Comment: Magnus montoya Type: BLOOD SPECIMENOrdering Facility: [facility] Address: [address] [place] [address] Result Comment: Hortencia mated Glomerular Filtration Rate [...] actual GFR. Performed By: #### 2 4323-8 ####[facility] LABCLIA [id number] [place] [address] [place] Glucose [Mass/Vol] 98 mg/dL Normal 74-[address] [facility] Comment on above: Order Comment: Magnus montoya Type: BLOOD SPECIMENOrdering Facility: [facility] Address: [address] [place] [address] Result Comment: The [place] [employer] (ADA) provides guidance for cutoff [...] Standards of Medical Care in Diabetes 2016, [place] [employer]. Diabetes Care. 2016.39(Suppl 1). Performed By: #### 2 4323-8 ####[facility] LABCLIA [id number] [place] [address] [place] Potassium [Moles/Vol] 4.5 mmol/L Normal 3.7-5.1 [facility] Comment on above: Order Comment: Speci men Type: BLOOD SPECIMENOrdering Facility: [facility] Address: [address] [place] [address] Performed By: #### 2 4323-8 ####[facility] LABCLIA [id number] [place] [address] [place] Protein [Mass/Vol] 6.8 g/dL Normal 6.3-8.[address] [facility] Comment on above: Order Comment: Speci men Type: BLOOD SPECIMENOrdering Facility: [facility] Address: [address] [place] [address] Performed By: #### 2 4323-8 ####[facility] LABIA [id number] [place] [address] [place] Sodium [Moles/Vol] 138 mmol/L Normal 136-[address] [facility] Comment on above: Order Comment: Speci men Type: BLOOD SPECIMENOrdering Facility: [facility] Address: [address] [place] [address] Performed By: #### 2 4323-8 ####[facility] LABIA [id number] [place] [address] [place] Urea nitrogen [Mass/Vol] 20 mg/dL Normal 7-21 [facility] Comment on above: Order Comment: Speci men Type: BLOOD SPECIMENOrdering Facility: [facility] Address: [address] [place], [place] [address] Performed By: #### 2 4323-8 ####[facility] LABIA [id number] [place] [address] [place] ECG COMPLETEon 02-24-2022 ECG COMPLETE Ventricular Rate : 54 BPM Atrial Rate : 54 BPM P-R Interval : 172 ms QRS Duration : 96 ms Q-T Interval : 450 ms QTC Calculation(Bazett) : 426 ms Calculated P Underhill : 59 degrees Calculated R Underhill : -33 degrees Calculated T Underhill : 48 degrees SINUS BRADYCARDIA LEFT AXIS DEVIATION ABNORMAL ECG Confirmed by JHON JO M.D. ([id number]) on 03/01/2022 1:40:04 PM NAME : DIANELYS WOMACK PID : [id number] : 1950 Gender : Female Race : ORD : [id number] Procedure Date : Feb 24 2022 10:59:01 Edit Date : Mar 01 2022 13:43:37 Diagnosis: SINUS BRADYCARDIA LEFT AXIS DEVIATION ABNORMAL ECG Confirmed by JHON JO M.D. (67) on 03/01/2022 1:40:04 PM Test Reason : Location : 119 : A17 A-17 Overread By : JHON JO M.D. Edited By : JHON JO M.D. Referred By : Gareth VERA Acquired by : RIVAS CROCKER [facility] HISTORY PHYSICALon HISTORY PHYSICAL HNO ID: [id number] Author: Karson Monte APRN.RIGGER THIRD Service: ? Author Type: Nurse Practitioner Type: HANDP Filed: 02/27/2022 9:46 AM Note Text: HISTORY AND PHYSICAL EXAMINATION SERVICE DATE: 02/24/2022 SERVICE TIME: 9:46 AM PRIMARY CARE PHYSICIAN: Monika Lehman MD REASON FOR VISIT: Dianelys Wmoack is a 71 year old female who [...] COVID-19 vaccine, age 12+ yr ([employer] - [facility]) 03/24/2020 Imm Admin: COVID-19 vaccine, age 12+ yr ([employer] [facility]) Patient reports being fully vaccinated against COVID-19. [...] Never D (more content not included)... Normal [facility] TYPE AND SCREEN,30 DAYon ABO O Normal [facility] Comment on above: Order Comment: Speci men Type: BLOOD SPECIMEN Ordering Facility: [facility] Address: [address] [place] [address] Performed By: #### T SCR30 #### [facility]LOOD B[facility] CLIA [id number] [address] [place] [address] [place] HISTORICAL AB SCR STATUS Negative Normal [facility] Comment on above: Order Comment: Speci men Type: BLOOD SPECIMEN Ordering Facility: [facility] Address: [address] [place] [address] Performed By: #### T SCR30 #### [facility] CLIA [id number] [address] [place] [address] [place] Rh Nom (Bld) Positive Normal [facility] Comment on above: Order Comment: Speci men Type: BLOOD SPECIMEN Ordering Facility: [facility] Address: [address] [place] [address] Performed By: #### T SCR30 #### CC [facility] BLOOD BANK [facility] [id number] [address] [place] [address] OF [facility] CNOVon 01-12-2022 CNOV Office Visit ([facility]) ---- DIANELYS WOMACK ([id number]) 1950 F Date Time Provider Department 01/12/22 9:30 AM Gareth VERA [facility] During your visit today, we [...] Abdomen soft, (more content not included)... Normal [facility] HISTORY PHYSICALon HISTORY PHYSICAL HNO ID: [id number] Author: Gareth Vera MD Service: ? Author [...] closed Resting tone: NORMAL Squeeze tone: NORMAL Supervisor Roving pr (more content not included)... Normal [facility] 12-24-2021 CNPN Telephone (RHODA) ---- DIANELYS WOMACK P ([id number]) 1950 F Date Time Provider Department 12/24/21 TAZ TEJEDA During your visit today, we [...] Status:Closed by TAZ TEJEDA on 12/24/21 Normal [facility] ANES POSTPROC EVALon 022 ANES POSTPROC EVAL HNO ID: [id number] Author: Niko Hernandez MD Service: ? Author [...] Kapadia MD; Niko Hernandez MD; Colten Persaud APRN.ELECTRONICS INSTALLER Responsible Provider: Niko Hernandez MD Anesthesia Type: [...] December 06, 2021 TIME: 5:29 PM CSN: [id number] Normal [facility] ANES PRE-OPon 12-06-2021 ANES PRE-OP HNO ID: [id number] Author: Niko Hernandez MD Service: ? Author Type: Anesthesiologist Type: Anesthesia Preprocedure Evaluation Filed: 12/06/2021 10:43 AM Note Text: ANESTHESIOLOGY DAY OF SURGERY NOTE : 1950 Procedure Information Date/Time: 12/06/21929 Scheduled providers: Kenton Kapadia MD; Debbi Guerin APRN.ELECTRONICS INSTALLER; Niko Hernandez MD Procedures: COLONOSCOPY DIAGNOSTIC EGD [...] Chronic obstructive pulmonary disease (COPD) ([facility]) (-) Recent URI I - PHYSICAL [...] December 06, 2021 TIME: 9:07 AM CSN: [id number] Normal [facility] COLONOSCOPY DIAGNOSTICon [facility] Colonoscopyon 12-06-2021 Colonoscopy Q3 Patient Name: [...] was incomplete. Procedure Code(s): --- Professional --- 39709, 52, Colonoscopy, flexible; with biopsy, single or multiple Diagnosis Code(s): --- Professional --- D49.0, Neoplasm of unspecified behavior of digestive system R10.84, Generalized abdominal pain CPT copyright 2021 [place] [employer]. All rights reserved. Attending Participation: I personally performed the entire procedure. Scope In: 11:25:59 AM Scope Out: 11:47:49 AM MD Kenton Rowe MD 12/06/2021 11:58:39 AM This report has been signed electronically by Kenton Kapadia MD Number of Addenda: 0 Note Initiated On: 12/06/2021 10:56 AM Normal [facility] EGD DIAGNOSTICon 12-06-2021 [facility] NURSING PROGon 12-06-2021 NURSING PROG HNO ID: [id number] Author: Anastasia [place] RN Service: Nursing Author [...] Electronically Signed By: Anastasia [place] RN Normal [facility] SURGICAL PATHOLOGYon 022 CASE REPORT Normal [facility] Comment on above: Order Comment: Speci men Type: TISSUE SPECIMENOrdering Facility: [facility] Address: [address] [place] [id number] Result Comment: Surg ica Pathology Report Case: [id number] Authorizing Provider: Kenton Kapadia MD Collected: 12/06/2021 11:44 AM Ordering Location: Gastroenterology Received: 12/06/2021 03:33 PM Pathologist: Nathaniel Ford MD Specimen: RECTAL BIOPSY, rectal mass r/o CA Performed By: #### S ####[facility] LABCLIA [id number] [address] [place] FINAL DIAGNOSIS Normal [facility] Comment on above: Order Comment: Speci men Type: TISSUE SPECIMENOrdering Facility: [facility] Address: [address] [place] [address] Result Comment: A. R ectum, mass, biopsy: - Superficial fragments of traditional serrated adenoma. Performed By: #### S ####[facility] LABCLIA [id number] [address] OF [facility] FINAL PERFORMING LAB Normal [facility] Comment on above: Order Comment: Speci men Type: TISSUE SPECIMENOrdering Facility: [facility] Address: [address] [place] [address] Result Comment: Diag nostic interpretation performed at [facility], [address] [place] [address] CLIA# [id number] Senior Hr Manager: Johnny Rich M.D. Performed By: #### S ####[facility] LABIA [id number] [address] [place] GROSS DESCRIPTION Normal [facility] Comment on above: Order Comment: Speci men Type: TISSUE SPECIMENOrdering Facility: [facility] Address: [address] [place] [address] Result Comment: A. R ECTAL BIOPSY Received in formalin are multiple pieces of pascual, soft tissue aggregating to 1.7 x 0.3 x 0.2 cm. Totally submitted in one cassette. Gross examination performed at [address] 12/06/2021 9:49 PM Performed By: #### S ####[facility] LABCLIA [id number] [address] [place] CNPNon 11-29-2021 CNPN Telephone (GASTPR) ---- ALLENDIANELYS PEREZ Omi ([id number]) 1950 F Date Time Provider Department 11/29/21 JESSICA GREEN GASTUT During your visit today, we recorded the following information about you: Jessica Green RN 11/29/2021 12:49 PM Signed Attempted to reach the patient at the contact number that they provided [phone] (home). 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 merchandising representative they must have a responsible adult [...] -Number to call with questions or concerns [phone] Jessica Green RN BSN Allergies As of Date: 11/29/2021 (Not on File) Date Reviewed: Never Reviewed Reason for Visit: Appointment Confirmation [3505] Cmt: Pre-procedure instructions Problem List As Of Date: 11/29/2021 (None) Encounter Status:Closed by JESSICA GREEN on 11/29/21 [facility] Albumin [Mass/volume] in Ser um or PlasmaOrdered By: Chucho Saldaña on 11-17-2021 Albumin [Mass/Vol] 3.6 g/dL 3.2-5.5 [facility] Automated erythrocytes count in urine sediment (number/area)Ordered By: Chucho Saldaña on 10-05-2022 RBC Auto (Urine sed) [#/Area] 0-1 [HPF] 0-4 [facility] Automated leukocytes count i n urine sediment (number/area)Ordered By: Chucho Saldaña on 11-17-2021 WBC Auto (Urine sed) [#/Area] 3-4 [HPF] 0-4 [facility] Basic Metabolic Panelon 10-0 Anion gap [Moles/Vol] 15.1 mmol/L High 6.0-15.0 [facility] Comment on above: Performed By: #### C BC, LIPASE, BMP, HEPATIC #### [facility] [address] Calcium [Mass/Vol] 10.0 mg/dL Normal 8.2-10.2 [facility] Comment on above: Performed By: #### C BC, LIPASE, BMP, HEPATIC #### [facility] [address] [place] [address] [place] Chloride [Moles/Vol] 103 mmol/L Normal 95-114 [facility] Comment on above: Performed By: #### C BC, LIPASE, BMP, HEPATIC #### [facility] [address] [place] [address] [place] CO2 [Moles/Vol] 27.0 mmol/L Normal 22.0-30.0 [facility] Comment on above: Performed By: #### C BC, LIPASE, BMP, HEPATIC #### [facility] [address] [place] [id number] [place] Creatinine [Mass/Vol] 0.86 mg/dL Normal 0.44-1.03 [facility] Comment on above: Performed By: #### C BC, LIPASE, BMP, HEPATIC #### [facility] [address] [place] [address] [place] Creatinine Clr Calc Pharmacy 58.14 [facility] Comment on above: Performed By: #### C BC, LIPASE, BMP, HEPATIC #### [facility] [address] [place] [address] [place] Estimated GFR ( [place] > 60 [facility] Comment on above: Result Comment: GFR estimated reference range: According to KDOQI guidelines, <60 ml/min/1.73m2 is sufficient to diagnose a patient with chronic kidney disease. Performed By: #### C BC, LIPASE, BMP, HEPATIC #### [facility] [address] Estimated GFR (Non- Am > 60 Normal [facility] Comment on above: Performed By: #### C BC, LIPASE, BMP, HEPATIC #### [facility] [address] Glucose [Mass/Vol] 95 mg/dL Normal 70-100 [facility] Comment on above: Result Comment: [facility] Glucose Reference Range is dependent on time and content of last meal. Glucose of more than 200 mg/dL in a nonstressed, ambulatory subject supports the diagnosis of Diabetes Mellitus. ADA recommended reference range Performed By: #### C BC, LIPASE, BMP, HEPATIC #### [address] Potassium [Moles/Vol] 3.1 mmol/L Low 3.5-5.1 [facility] Comment on above: Performed By: #### C BC, LIPASE, BMP, HEPATIC #### [address] Sodium [Moles/Vol] 142 mmol/L Normal 136-146 [facility] Comment on above: Performed By: #### C BC, LIPASE, BMP, HEPATIC #### [address] Urea nitrogen [Mass/Vol] 9 mg/dL Normal 9-23 [facility] Comment on above: Performed By: #### C BC, LIPASE, BMP, HEPATIC #### [place] [address] [place] Basophils Auto (Bld) [#/Vol] Ordered By: Chucho Saldaña on 11-17-2021 Basophils (Bld) [#/Vol] 0.0 10*3/uL 0.0-0.2 [facility] Basophils/100 WBC Auto (Bld) Ordered By: Chucho Saldaña on 11-17-2021 Basophils/100 WBC (Bld) 0.6 % . [facility] Bilirubin Test strip Ql (U)O rdered By: Chucho Piotr on 11-17-2021 Bilirubin Ql (U) Negative Negative [facility] Blood hemoglobin measurement (mass/volume)Ordered By: Chucho Saldaña on 11-17-2021 Hemoglobin (Bld) [Mass/Vol] 13.4 g/dL 11.8-15.4 [facility] Blood leukocytes automated c ount (number/volume)Ordered By: Chucho Saldaña on 11-17-2021 WBC (Bld) [#/Vol] 6.4 10*3/uL 4.5-11.0 [facility] CT abdomen pelvis wo conon 1 CT abdomen pelvis wo con [facility] Main [place] [address] [place] [address] CT Scan Report Signed Patient: Dianelys Womack MR#: [id number] 330 : 1950 Acct:[id number] Age/Sex: 70 / F ADM Date: 11/17/21 Loc: ER Room: Type: [facility] ER Attending Dr: Copies to: Chucho Saldaña MD Ordering Provider: Chucho Saldaña MD Date of Service: 11/17/21 CT/CT abdomen pelvis wo con: [facility] CT abdomen and pelvis withoutcontrast TECHNIQUE: Axial [...] Nick Gimenez M.D.11/17/2021 12:37 PM Dictation Location: [place] [address] Transcribed By: [facility] 11/17/21 1237 Dictated By: Nick Gimenez DO 11/17/21 1227 Signed By: 11/17/21 1237 Normal [facility] Color Auto (U)Ordered By: Swathi Saldaña on 11-17-2021 Color (U) Yellow Yellow [facility] Complete Blood Count Auto Di ffon 11-17-2021 Basophils (Bld) [#/Vol] 0.0 10*3/uL Normal 0.0-0.2 [facility] Comment on above: Result Comment: PERF ORMED BY: [place] [address] PATHOLOGIST TRIGONOMETRY TUTOR LISA VERDE M.D. Performed By: #### C BC, LIPASE, BMP, HEPATIC #### [facility] [address] [place] [address] [place] Basophils/100 WBC (Bld) 0.6 % Normal . [facility] Comment on above: Performed By: #### C BC, LIPASE, BMP, HEPATIC #### [facility] [address] [place] [address] [place] Eosinophils (Bld) [#/Vol] 0.0 10*3/uL Normal 0.0-0.45 [facility] Comment on above: Performed By: #### C BC, LIPASE, BMP, HEPATIC #### [facility] [address] [place] [address] [place] Eosinophils/100 WBC (Bld) 0.8 % Normal . [facility] Comment on above: Performed By: #### C BC, LIPASE, BMP, HEPATIC #### [address] Erythrocyte distribution width (RBC) [Ratio] 15.8 % High 11.9-15.3 [facility] Comment on above: Performed By: #### C BC, LIPASE, BMP, HEPATIC #### [address] Hematocrit (Bld) [Volume fraction] 41.7 % Normal 34.0-46.4 [facility] Comment on above: Performed By: #### C BC, LIPASE, BMP, HEPATIC #### [address] Hemoglobin (Bld) [Mass/Vol] 13.4 g/dL Normal 11.8-15.4 [facility] Comment on above: Performed By: #### C BC, LIPASE, BMP, HEPATIC #### [address] Lymphocytes (Bld) [#/Vol] 0.9 10*3/uL Low 1.00-4.8 [facility] Comment on above: Performed By: #### C BC, LIPASE, BMP, HEPATIC #### [address] Lymphocytes/100 WBC (Bld) 14.4 % Normal . [facility] Comment on above: Performed By: #### C BC, LIPASE, BMP, HEPATIC #### [address] MCH (RBC) [Entitic mass] 27.3 pg Normal 24.7-34.3 [facility] Comment on above: Performed By: #### C BC, LIPASE, BMP, HEPATIC #### [address] MCV (RBC) [Entitic vol] 84.9 fL Normal 80-100 [facility] Comment on above: Performed By: #### C BC, LIPASE, BMP, HEPATIC #### [address] Mean Corpuscular HGB Conc 32.2 g/dL Normal 32.0-35.0 [facility] Comment on above: Performed By: #### C BC, LIPASE, BMP, HEPATIC #### [facility] [address] Monocytes (Bld) [#/Vol] 0.4 10*3/uL Normal 0.0-0.8 [facility] Comment on above: Performed By: #### C BC, LIPASE, BMP, HEPATIC #### [address] Monocytes/100 WBC (Bld) 7.0 % Normal . [facility] Comment on above: Performed By: #### C BC, LIPASE, BMP, HEPATIC #### [address] Neutrophils (Bld) [#/Vol] 5.0 10*3/uL Normal 1.8-7.7 [facility] Comment on above: Performed By: #### C BC, LIPASE, BMP, HEPATIC #### [address] Neutrophils/100 WBC (Bld) 77.2 % Normal . [facility] Comment on above: Performed By: #### C BC, LIPASE, BMP, HEPATIC #### [address] Nucleated RBC/100 WBC (Bld) [Ratio] 0.0 % Normal 0-0.5 [facility] Comment on above: Performed By: #### C BC, LIPASE, BMP, HEPATIC #### [address] Platelet mean volume (Bld) [Entitic vol] 8.3 fL Normal 6.3-10.7 [facility] Comment on above: Performed By: #### C BC, LIPASE, BMP, HEPATIC #### [address] Platelets (Bld) [#/Vol] 203 10*3/uL Normal 150-450 [facility] Comment on above: Performed By: #### C BC, LIPASE, BMP, HEPATIC #### [facility] [address] RBC (Bld) [#/Vol] 4.91 10*6/uL Normal 3.60-5.00 [facility] Comment on above: Performed By: #### C BC, LIPASE, BMP, HEPATIC #### [facility] [address] WBC (Bld) [#/Vol] 6.4 10*3/uL Normal 4.5-11.0 [facility] Comment on above: Performed By: #### C BC, LIPASE, BMP, HEPATIC #### [facility] [address] Creatinine and Glomerular fi ltration rate.predicted panel (S/P/Bld)Ordered By: Chucho Saldaña on 11-17-2021 Creatinine [Mass/Vol] 0.86 mg/dL 0.44-1.03 [facility] Dipstick and Microscopicon 1 Appearance (U) Clear Normal Clear [facility] Comment on above: Order Comment: Name Collection Type:: Clean-Voided Midstream Performed By: #### A DDONUAPLUS #### [address] Bacteria,Urine None Seen Normal None Seen [facility] Comment on above: Order Comment: Name Collection Type:: Clean-Voided Midstream Performed By: #### A DDONUAPLUS #### [place] [address] [place] Bilirubin,Urine Negative Normal Negative [facility] Comment on above: Order Comment: Name Collection Type:: Clean-Voided Midstream Performed By: #### A DDONUAPLUS #### [place] [address] [place] Color (U) Yellow Normal Yellow [facility] Comment on above: Order Comment: Name Collection Type:: Clean-Voided Midstream Performed By: #### A DDONUAPLUS #### [place] [address] [place] Glucose Ql (U) Normal Normal Normal [facility] Comment on above: Order Comment: Name Collection Type:: Clean-Voided Midstream Performed By: #### A DDONUAPLUS #### [address] Hyaline Casts,Urine 0-8 Normal 0-8 [facility] Comment on above: Order Comment: Name Collection Type:: Clean-Voided Midstream Result Comment: PERF ORMED BY: [place] [address] PATHOLOGIST TRIGONOMETRY TUTOR LISA VERDE M.D. Performed By: #### A DDONUAPLUS #### [address] Ketones Ql (U) Trace High Negative [facility] Comment on above: Order Comment: Name Collection Type:: Clean-Voided Midstream Performed By: #### A DDONUAPLUS #### [address] Leukocyte esterase Test strip Ql (U) 1+ High Negative [facility] Comment on above: Order Comment: Name Collection Type:: Clean-Voided Midstream Performed By: #### A DDONUAPLUS #### [place] [address] [place] Nitrite,Urine Negative Normal Negative [facility] Comment on above: Order Comment: Name Collection Type:: Clean-Voided Midstream Performed By: #### A DDONUAPLUS #### [place] [address] [place] Occult Blood,Urine Trace High Negative [facility] Comment on above: Order Comment: Name Collection Type:: Clean-Voided Midstream Result Comment: PERF ORMED BY: [place] [address] PATHOLOGIST TRIGONOMETRY TUTOR LISA VERDE M.D. Performed By: #### A DDONUAPLUS #### [place] [address] [place] pH (U) 7.5 [pH] Normal 5.0-9.0 [facility] Comment on above: Order Comment: Name Collection Type:: Clean-Voided Midstream Performed By: #### A DDONUAPLUS #### [place] [address] [place] Protein,Urine Trace High Negative [facility] Comment on above: Order Comment: Name Collection Type:: Clean-Voided Midstream Performed By: #### A DDONUAPLUS #### [address] RBC LM.HPF (Urine sed) [#/Area] 0 /[HPF] Normal 0-4 [facility] Comment on above: Order Comment: Name Collection Type:: Clean-Voided Midstream Performed By: #### A DDONUAPLUS #### [address] Specificy [place],Urine 1.013 Normal 1.001-1.030 [facility] Comment on above: Order Comment: Name Collection Type:: Clean-Voided Midstream Performed By: #### A DDONUAPLUS #### [address] Squamous Epithelial Cell,Urine 0-1 Normal 0-2 [facility] Comment on above: Order Comment: Name Collection Type:: Clean-Voided Midstream Performed By: #### A DDONUAPLUS #### [address] Urobilinogen,Urine Normal Normal Normal [facility] Comment on above: Order Comment: Name Collection Type:: Clean-Voided Midstream Performed By: #### A DDONUAPLUS #### [place] [address] [place] WBC,Urine 3-4 Normal 0-4 [facility] Comment on above: Order Comment: Name Collection Type:: Clean-Voided Midstream Performed By: #### A DDONUAPLUS #### [address] Direct bilirubin measurement Ordered By: Chucho Saldaña on 11-17-2021 Bilirubin.direct [Mass/Vol] 0.1 mg/dL 0.0-0.4 [facility] Eosinophils Auto (Bld) [#/Vo l]Ordered By: Chucho Saldaña on 11-17-2021 Eosinophils (Bld) [#/Vol] 0.0 10*3/uL 0.0-0.45 [facility] Eosinophils/100 WBC Auto (Bl d)Ordered By: Chucho Saldaña on 11-17-2021 Eosinophils/100 WBC (Bld) 0.8 % . [facility] Erythrocyte distribution wid th Auto (RBC) [Ratio]Ordered By: Chucho Saldaña on 11-17-2021 Erythrocyte distribution width (RBC) [Ratio] 15.8 % 11.9-15.3 [facility] Estimated glomerular filtrat ion rate (GFR) non- AmericanOrdered By: Chucho Saldaña on 11-17-2021 GFR/1.73 sq M.predicted among non-blacks MDRD (S/P/Bld) [Vol rate/Area] > 60 mL/Min [facility] Globulin Calc (S) [Mass/Vol] Ordered By: Chucho Saldaña on 11-17-2021 Globulin (S) [Mass/Vol] 3.6 g/dL F [facility] Hematocrit Auto (Bld) [Volum e fraction]Ordered By: Chucho Saldaña on 11-17-2021 Hematocrit (Bld) [Volume fraction] 41.7 % 34.0-46.4 [facility] Hepatic Panelon 11-17-2021 Albumin [Mass/Vol] 3.6 g/dL Normal 3.2-5.5 [facility] Comment on above: Performed By: #### C BC, LIPASE, BMP, HEPATIC #### [facility] [address] Albumin/Globulin [Mass ratio] 1.0 {ratio} Normal [facility] Comment on above: Performed By: #### C BC, LIPASE, BMP, HEPATIC #### [facility] [address] [place] [address] [place] ALP [Catalytic activity/Vol] 121 U/L High 32-92 [facility] Comment on above: Performed By: #### C BC, LIPASE, BMP, HEPATIC #### [facility] [address] ALT [Catalytic activity/Vol] 25 U/L Normal 10-60 [facility] Comment on above: Performed By: #### C BC, LIPASE, BMP, HEPATIC #### [facility] [address] AST [Catalytic activity/Vol] 34 U/L Normal 10-42 [facility] Comment on above: Performed By: #### C BC, LIPASE, BMP, HEPATIC #### [facility] [address] Bilirubin [Mass/Vol] 0.7 mg/dL Normal 0.3-1.2 [facility] Comment on above: Performed By: #### C BC, LIPASE, BMP, HEPATIC #### [facility] [address] Bilirubin,Indirect 0.6 mg/dL Normal [facility] Comment on above: Performed By: #### C BC, LIPASE, BMP, HEPATIC #### [facility] [address] Bilirubin.indirect [Mass/Vol] 0.1 mg/dL Normal 0.0-0.4 [facility] Comment on above: Performed By: #### C BC, LIPASE, BMP, HEPATIC #### [facility] [address] Globulin (S) [Mass/Vol] 3.6 g/dL Normal F [facility] Comment on above: Performed By: #### C BC, LIPASE, BMP, HEPATIC #### [facility] [address] Protein [Mass/Vol] 7.2 g/dL Normal 6.1-7.9 [facility] Comment on above: Performed By: #### C BC, LIPASE, BMP, HEPATIC #### [facility] [address] Ketones Auto test strip (U) [Mass/Vol]Ordered By: Chucho Saldaña on 11-17-2021 Ketones (U) [Mass/Vol] Trace Negative [facility] - Chemistry and C hemistry - challengeOrdered By: Chucho Saldaña on 11-17-2021 Lipase [Catalytic activity/Vol] 26.0 U/L [facility] Laboratory - Hematology and Cell countsOrdered By: Chucho Saldaña on 11-17-2021 Nucleated RBC/100 WBC (Bld) [Ratio] 0.0 % 0-0.5 [facility] Laboratory - UrinalysisOrder ed By: Chucho Saldaña on 11-17-2021 Hyaline casts LM Ql (Urine sed) 0-8 [LPF] 0-8 [facility] Lipaseon 11-17-2021 Lipase [Catalytic activity/Vol] 26.0 U/L Normal [facility] Comment on above: Result Comment: PERF ORMED BY: [place] [address] PATHOLOGIST TRIGONOMETRY TUTOR LISA VERDE M.D. Performed By: #### C BC, LIPASE, BMP, HEPATIC #### [address] Lymphocytes Auto (Bld) [#/Vo l]Ordered By: Chucho Saldaña on 11-17-2021 Lymphocytes (Bld) [#/Vol] 0.9 10*3/uL 1.00-4.8 [facility] Lymphocytes/100 WBC Auto (Bl d)Ordered By: Chucho Saldaña on 11-17-2021 Lymphocytes/100 WBC (Bld) 14.4 % . [facility] MCH Auto (RBC) [Entitic mass ]Ordered By: Chucho Saldaña on 11-17-2021 MCH (RBC) [Entitic mass] 27.3 pg 24.7-34.3 [facility] MCHC Auto (RBC) [Mass/Vol]Or dered By: Chucho Saldaña on 11-17-2021 MCHC (RBC) [Mass/Vol] 32.2 g/dL 32.0-35.0 [facility] MCV Auto (RBC) [Entitic vol] Ordered By: Chucho Saldaña on 11-17-2021 MCV (RBC) [Entitic vol] 84.9 fL 80-100 [facility] Monocytes Auto (Bld) [#/Vol] Ordered By: Chucho Saldaña on 11-17-2021 Monocytes (Bld) [#/Vol] 0.4 10*3/uL 0.0-0.8 [facility] Monocytes/100 WBC Auto (Bld) Ordered By: Chucho Saldaña on 11-17-2021 Monocytes/100 WBC (Bld) 7.0 % . [facility] Neutrophils Auto (Bld) [#/Vo l]Ordered By: Chucho Saldaña on 11-17-2021 Neutrophils (Bld) [#/Vol] 5.0 10*3/uL 1.8-7.7 [facility] Neutrophils/100 WBC Auto (Bl d)Ordered By: Chucho Saldaña on 11-17-2021 Neutrophils/100 WBC (Bld) 77.2 % . [facility] Nitrite Test strip Ql (U)Ord ered By: Chucho Saldaña on 11-17-2021 Nitrite Ql (U) Negative Negative [facility] No Panel InformationOrdered By: Chucho Saldaña on 11-17-2021 Estimated GFR () > 60 mL/Min [facility] Comment on above: GFR estimated refere nce range: According to KDOQI guidelines, <60 ml/min/1.73m2 is sufficient to diagnose a patient with chronic kidney disease. Pharmacy Creatinine Clearance (Chem 58.14 [facility] Platelet mean volume Auto (B ld) [Entitic vol]Ordered By: Chucho Saldaña on 11-17-2021 Platelet mean volume (Bld) [Entitic vol] 8.3 fL 6.3-10.7 [facility] Platelets Auto (Bld) [#/Vol] Ordered By: Chucho Saldaña on 11-17-2021 Platelets (Bld) [#/Vol] 203 10*3/uL 150-450 [facility] Protein Auto test strip (U) [Mass/Vol]Ordered By: Chucho Saldaña on 11-17-2021 Protein (U) [Mass/Vol] Trace mg/dL Negative F [facility] Protein [Mass/volume] in Ser um or PlasmaOrdered By: Chucho Saldaña on 11-17-2021 Protein [Mass/Vol] 7.2 g/dL 6.1-7.9 [facility] RBC Auto (Bld) [#/Vol]Ordere d By: Chucho Saldaña on 11-17-2021 RBC (Bld) [#/Vol] 4.91 10*6/uL 3.60-5.00 [facility] Serum or plasma alanine harris otransferase measurement without P-5'-P (enzymatic activiOrdered By: Chucho Saldaña on 11-17-2021 ALT No additional P-5'-P [Catalytic activity/Vol] 25 U/L 10 [facility] Serum or plasma albumin/glob ulin mass ratioOrdered By: Chucho Saldaña on 11-17-2021 Albumin/Globulin [Mass ratio] 1.0 {ratio} [facility] Serum or plasma alkaline suzanne sphatase measurement (enzymatic activity/volume)Ordered By: Chucho Saldaña on 11-17-2021 ALP [Catalytic activity/Vol] 121 U/L 32- [facility] Serum or plasma anion gap de terminationOrdered By: Chucho Saldaña on 11-17-2021 Anion gap [Moles/Vol] 15.1 mmol/L 6.0-15.0 [facility] Serum or plasma aspartate am inotransferase measurement (enzymatic activity/volume)Ordered By: Chucho Saldaña on 11-17-2021 AST [Catalytic activity/Vol] 34 U/L [facility] Serum or plasma calcium jannet urement (mass/volume)Ordered By: Chucho Saldaña on 11-17-2021 Calcium [Mass/Vol] 10.0 mg/dL 8.2-10.2 [facility] Serum or plasma chloride yair surement (moles/volume)Ordered By: Chucho Saldaña on 11-17-2021 Chloride [Moles/Vol] 103 mmol/L 95-114 [facility] Serum or plasma glucose jannet urement (mass/volume)Ordered By: Chucho Saldaña on 11-17-2021 Glucose [Mass/Vol] 95 mg/dL 70-100 [facility] Comment on above: ADA recommended refe rence rangeRandom Glucose Reference Range is dependent on time and content of last meal. Glucose of more than 200 mg/dL in a nonstressed, ambulatory subject supports the diagnosis of Diabetes Mellitus. Serum or plasma non-glucuron idated bilirubin measurement (mass/volume)Ordered By: Chucho Saldaña on 11-17-2021 Bilirubin.indirect [Mass/Vol] 0.6 mg/dL [facility] Serum or plasma potassium me asurement (moles/volume)Ordered By: Chucho Saldaña on 11-17-2021 Potassium [Moles/Vol] 3.1 mmol/L 3.5-5.1 [facility] Serum or plasma sodium measu rement (moles/volume)Ordered By: Chucho Saldaña on 11-17-2021 Sodium [Moles/Vol] 142 mmol/L 136-146 [facility] Serum or plasma total biliru bin measurement (mass/volume)Ordered By: Chucho Saldaña on 11-17-2021 Bilirubin [Mass/Vol] 0.7 mg/dL 0.3-1.2 [facility] Serum or plasma total carbon dioxide measurement (moles/volume)Ordered By: Chucho Saldaña on 11-17-2021 CO2 [Moles/Vol] 27.0 mmol/L 22.0-30.0 [facility] Serum or plasma urea nitroge n measurement (mass/volume)Ordered By: Chucho Saldaña on 11-17-2021 Urea nitrogen [Mass/Vol] 9 mg/dL 9-23 [facility] Specific gravity Auto test s trip (U) [Rel density]Ordered By: Chucho Saldaña on 11-17-2021 Specific gravity (U) [Rel density] 1.013 1.001-1.030 [facility] Squamous epithelial cells de tection in urine sediment by light microscopyOrdered By: Chucho Saldaña on 11-17-2021 Epithelial cells.squamous LM Ql (Urine sed) 0-1 [HPF] 0-2 [facility] Urine bacteria detection by automated methodOrdered By: Chucho Saldaña on 11-17-2021 Bacteria Auto Ql (U) None seen None Seen [facility] Urine clarity by refractomet ry automatedOrdered By: Chucho Saldaña on 11-17-2021 Clarity Refractometry automated (U) Clear Clear [facility] Urine glucose measurement by automated test strip (mass/volume)Ordered By: Chucho Saldaña on 11-17-2021 Glucose Auto test strip (U) [Mass/Vol] Normal mg/dL Normal [facility] Urine hemoglobin detection b y automated test stripOrdered By: Chucho Saldaña on 11-17-2021 Hemoglobin Auto test strip Ql (U) Trace Negative [facility] Urine leukocyte esterase det ection by automated test stripOrdered By: Chucho Saldaña on 11-17-2021 Leukocyte esterase Auto test strip Ql (U) 1+ Negative [facility] Urobilinogen Auto test strip (U) [Mass/Vol]Ordered By: Chucho Saldaña on 11-17-2021 Urobilinogen (U) [Mass/Vol] Normal mg/dL Normal [facility] pH Auto test strip (U)Ordere d By: Chucho Saldaña on 11-17-2021 pH (U) 7.5 [pH] 5.0-9.0 [facility] CNPNon 11-03-2021 CNPN Telephone (GASTMN) ---- DIANELYS WOMACK ([id number]) 1950 F Date Time Provider Department 11/03/21 TAZ TEJEDA During your visit today, we recorded the following information about you: Joan Acevedo SUPV 11/03/2021 3:[address] new egd/colonoscopy w MAC orders to be scheduled at Q3 Please contact patient's daughter(Shy) to schedule. # [phone] Keiko Hernandez RN 11/04/2021 9:51 AM Signed [...] [R19.7] Order(s):COLONOSCOP Y DIAGNOSTIC [GI11] Order #: [id number] FUTURE EGD DIAGNOSTIC [GI9] Order #: [id number] FUTURE Problem List As Of Date: 11/03/2021 (None) Encounter Status:Closed by TAZ TEJEDA on 11/05/21 Normal [facility] C diff Tox gens Stl Ql VERONICA+p robeon 10-31-2021 C. difficile toxin genes VERONICA+probe Ql (Stl) Negative Normal Negative for C. difficile toxin by PCR [facility] Comment on above: Order Comment: Speci men Type: STOOL SPECIMENOrdering Facility: [facility] Address: [address] [place] [address] Performed By: #### 5 [id number] ####[facility] LABCLIA [id number] [address] [place] Calprotectin Stl-mCnton 10-14 Calprotectin (Stl) [Mass/Mass] 205.7 mg/kg High 0-50 [facility] Comment on above: Order Comment: Speci men Type: STOOL SPECIMENOrdering Facility: [facility] Address: [address] [place] [address] Result Comment: INTE RPRETIVE INFORMATION: Calprotectin, Fecal <50.0 mg/kg : Normal 50.0-120.0 mg/kg: Borderline. Test should be re-evaluated in 4-6 wks. >120.0 mg/kg: Abnormal Performed By: #### 3 [id number] ####[facility]CLIA [id number] [address] [place] CBC panel Auto (Bld)on 10-29 Erythrocyte distribution width (RBC) [Ratio] 15.2 % High 11.5-15.0 [facility] Comment on above: Order Comment: Speci men Type: BLOOD SPECIMENOrdering Facility: [facility] Address: [address] [place] [address] Performed By: #### 5 8410-2 ####[facility] LABCLIA [id number] [place] [address] Hematocrit (Bld) [Volume fraction] 42.2 % Normal 36.0-46.0 [facility] Comment on above: Order Comment: Speci men Type: BLOOD SPECIMENOrdering Facility: [facility] Address: [address] [place] [address] Performed By: #### 5 8410-2 ####[facility] LABCLIA [id number] [place] [address] Hemoglobin (Bld) [Mass/Vol] 13.2 g/dL Normal 11.5-15.5 [facility] Comment on above: Order Comment: Speci men Type: BLOOD SPECIMENOrdering Facility: [facility] Address: [address] [place] [address] Performed By: #### 5 8410-2 ####[facility] LABCLIA [id number] [place] [address] MCH (RBC) [Entitic mass] 27.2 pg Normal 26.0-34.0 [facility] Comment on above: Order Comment: Speci men Type: BLOOD SPECIMENOrdering Facility: [facility] Address: [address] [place] [address] Performed By: #### 5 8410-2 ####[facility] LABIA [id number] [place] [address] MCHC (RBC) [Mass/Vol] 31.3 g/dL Normal 30.5-36.0 [facility] Comment on above: Order Comment: Speci men Type: BLOOD SPECIMENOrdering Facility: [facility] Address: [address] [place], [place] [address] Performed By: #### 5 8410-2 ####[facility] LABIA [id number] [place] [address] MCV (RBC) [Entitic vol] 86.8 fL Normal 80.0-100.0 [facility] Comment on above: Order Comment: Speci men Type: BLOOD SPECIMENOrdering Facility: [facility] Address: [address] [place] [address] Performed By: #### 5 8410-2 ####[facility] LABCLIA [id number] [place] [address] Nucleated RBC (Bld) [#/Vol] 10*3/uL Normal <0.01 [facility] Comment on above: Order Comment: Speci men Type: BLOOD SPECIMENOrdering Facility: [facility] Address: [address] [place] [address] Performed By: #### 5 8410-2 ####[facility] LABCLIA [id number] [place] [address] Platelet mean volume (Bld) [Entitic vol] 10.0 fL Normal 9.0-12.7 [facility] Comment on above: Order Comment: Speci men Type: BLOOD SPECIMENOrdering Facility: [facility] Address: [address] [place] [address] Performed By: #### 5 8410-2 ####[facility] LABCLIA [id number] [place] [address] Platelets (Bld) [#/Vol] 187 10*3/uL Normal 150-400 [facility] Comment on above: Order Comment: Speci men Type: BLOOD SPECIMENOrdering Facility: [facility] Address: [address] [place] [address] Performed By: #### 5 8410-2 ####[facility] LABCLIA [id number] [place] [address] RBC (Bld) [#/Vol] 4.86 10*6/uL Normal 3.90-5.20 [facility] Comment on above: Order Comment: Speci men Type: BLOOD SPECIMENOrdering Facility: [facility] Address: [address] [place] [address] Performed By: #### 5 8410-2 ####[facility] LABCLIA [id number] [place] [address] WBC (Bld) [#/Vol] 8.51 10*3/uL Normal 3.70-11.00 [facility] Comment on above: Order Comment: Magnus montoya Type: BLOOD SPECIMENOrdering Facility: [facility] Address: [address] [place] [address] Performed By: #### 5 8410-2 ####[facility] LABCLIA [id number] [place] [address] CELIAC SCREENon 10-29-2021 GLIAD DEAMIDATED IGA QUAL Negative Normal Negative, Test not Indicated [facility] Comment on above: Order Comment: Magnus montoya Type: BLOOD SPECIMENOrdering Facility: [facility] Address: [address] [place] [address] Result Comment: This is used as an aid in diagnosis of celiac disease. Clinical correlation is required. The following results were obtained with an [employer] Gliadin IgA BRIANA Gliadin. Gliadin IgA values obtained with different manufacturers' assay methods may not be used interchangeably. The magnitude of the reported IgA levels cannot be correlated to an endpoint titer. Performed By: #### L [id number] ####[facility] LABCLIA [id number] [address] [place] Gliadin peptide IgA Qn (S) 4 Units Normal <20 [facility] Comment on above: Order Comment: Magnus montoya Type: BLOOD SPECIMENOrdering Facility: [facility] Address: [address] [place] [address] Performed By: #### L [id number] ####[facility] LABCLIA [id number] [address] [place] INTERPRETATION No serological evidence of celiac disease, however, if celiac disease is clinically suspected and patient is not on gluten-free diet, histological diagnosis may be considered. HLA testing may help with risk assessment. Normal [facility] Comment on above: Order Comment: Magnus montoya Type: BLOOD SPECIMENOrdering Facility: [facility] Address: [address] [place] [address] Performed By: #### L [id number] ####[facility] LABCLIA [id number] [place] [address] [place] TRANSGLUTAMINASE IGA QUAL Negative Normal Negative, Test not Indicated [facility] Comment on above: Order Comment: Speci men Type: BLOOD SPECIMENOrdering Facility: [facility] Address: [address] [place] [address] Result Comment: The following results were obtained with the [employer] h-tTG IgA BRIANA. h-tTG IgA values obtained with different manufacturers' assay methods may not be used interchangeable. The magnitude of the reported IgA levels cannot be correlated to an endpoint titer. This is used as an aid in diagnosis of celiac disease. Clinical correlation is required. Performed By: #### L [id number] ####[facility] LABCLIA [id number] [place] [address] [place] tTG IgA Qn (S) 8 Units Normal <20 [facility] Comment on above: Order Comment: Speci men Type: BLOOD SPECIMENOrdering Facility: [facility] Address: [address] [place] [address] Performed By: #### L [id number] ####[facility] LABCLIA [id number] [place] [address] [place] Comprehensive metabolic 2000 panelon 10-29-2021 Albumin [Mass/Vol] 4.0 g/dL Normal 3.9-4.[address] [facility] Comment on above: Order Comment: Speci men Type: BLOOD SPECIMENOrdering Facility: [facility] Address: [address] [place], [place] [address] Performed By: #### 2 4323-8 ####[facility] LABCLIA [id number] [place] [address] ALP [Catalytic activity/Vol] 124 U/L High 34-123 [facility] Comment on above: Order Comment: Speci men Type: BLOOD SPECIMENOrdering Facility: [facility] Address: [address] [address] Performed By: #### 2 4323-8 ####[facility] LABCLIA [id number] [place] [address] ALT [Catalytic activity/Vol] 23 U/L Normal 7-38 [facility] Comment on above: Order Comment: Speci men Type: BLOOD SPECIMENOrdering Facility: [facility] Address: [address] [place] [address] Performed By: #### 2 4323-8 ####[facility] LABCLIA [id number] [place] [address] Anion gap [Moles/Vol] 9 mmol/L Normal 9-18 [facility] Comment on above: Order Comment: Speci men Type: BLOOD SPECIMENOrdering Facility: [facility] Address: [address] [place] [address] Performed By: #### 2 4323-8 ####[facility] LABCLIA [id number] [place] [address] AST [Catalytic activity/Vol] 37 U/L High 13-35 [facility] Comment on above: Order Comment: Speci men Type: BLOOD SPECIMENOrdering Facility: [facility] Address: [address] [place] [address] Performed By: #### 2 4323-8 ####[facility] LABCLIA [id number] [place] [address] Bilirubin [Mass/Vol] 0.5 mg/dL Normal 0.2-1.3 [facility] Comment on above: Order Comment: Speci men Type: BLOOD SPECIMENOrdering Facility: [facility] Address: [address] [place] [address] Performed By: #### 2 4323-8 ####[facility] LABCLIA [id number] [place] [address] Calcium [Mass/Vol] 10.0 mg/dL Normal 8.5-10.[address] [facility] Comment on above: Order Comment: Speci men Type: BLOOD SPECIMENOrdering Facility: [facility] Address: [address] [place] [address] Performed By: #### 2 4323-8 ####[facility] LABCLIA [id number] [place] [address] Chloride [Moles/Vol] 105 mmol/L Normal 97-105 [facility] Comment on above: Order Comment: Speci men Type: BLOOD SPECIMENOrdering Facility: [facility] Address: [address] [place] [address] Performed By: #### 2 4323-8 ####[facility] LABCLIA [id number] [place] [address] CO2 [Moles/Vol] 29 mmol/L Normal 22-30 [facility] Comment on above: Order Comment: Speci men Type: BLOOD SPECIMENOrdering Facility: [facility] Address: [address] [place] [address] Performed By: #### 2 4323-8 ####[facility] LABCLIA [id number] [place] [address] Creatinine [Mass/Vol] 1.17 mg/dL High 0.58-0.96 [facility] Comment on above: Order Comment: Speci men Type: BLOOD SPECIMENOrdering Facility: [facility] Address: [address] [place], [place] [address] Performed By: #### 2 4323-8 ####[facility] LABCLIA [id number] [place] [address] ESTIMATED GLOMERULAR FILTRATION RATE 50 mL/min/1.73m??? Low >=60 [facility] Comment on above: Order Comment: Speci men Type: BLOOD SPECIMENOrdering Facility: [facility] Address: [address] [place], [place] [address] Result Comment: Hortencia mated Glomerular Filtration Rate [...] actual GFR. Performed By: #### 2 4323-8 ####[facility] LABCLIA [id number] [place] [address] Glucose [Mass/Vol] 97 mg/dL Normal 74-[address] [facility] Comment on above: Order Comment: Magnus montoya Type: BLOOD SPECIMENOrdering Facility: [facility] Address: [address] [place] [address] Result Comment: The [place] [employer] Association (ADA) provides guidance for cutoff [...] Standards of Medical Care in Diabetes 2016, [place] [employer]. Diabetes Care. 2016.39(Suppl 1). Performed By: #### 2 4323-8 ####[facility] LABCLIA [id number] [place] [address] Potassium [Moles/Vol] 3.4 mmol/L Low 3.7-5.1 [facility] Comment on above: Order Comment: Magnus montoya Type: BLOOD SPECIMENOrdering Facility: [facility] Address: [address] [place] [address] Performed By: #### 2 4323-8 ####[facility] LABCLIA [id number] [place] [address] Protein [Mass/Vol] 6.9 g/dL Normal 6.3-8.[address] [facility] Comment on above: Order Comment: Speci men Type: BLOOD SPECIMENOrdering Facility: [facility] Address: [address] [place] [address] Performed By: #### 2 4323-8 ####[facility] LABCLIA [id number] [place] [address] Sodium [Moles/Vol] 143 mmol/L Normal 136-[address] [facility] Comment on above: Order Comment: Speci men Type: BLOOD SPECIMENOrdering Facility: [facility] Address: [address] [place] [address] Performed By: #### 2 4323-8 ####[facility] LABCLIA [id number] [place] [address] Urea nitrogen [Mass/Vol] 19 mg/dL Normal 7-21 [facility] Comment on above: Order Comment: Speci men Type: BLOOD SPECIMENOrdering Facility: [facility] Address: [address] [place] [address] Performed By: #### 2 4323-8 ####[facility] LABCLIA [id number] [place] [address] IgA SerPl-mCncon 10-29-2021 IgA [Mass/Vol] 343 mg/dL Normal 70-400 [facility] Comment on above: Order Comment: Speci men Type: BLOOD SPECIMENOrdering Facility: [facility] Address: [address] [place], [place] [address] Performed By: #### 2 458-8 ####[facility] LABCLIA [id number] [place] [address] [place] TSH SerPl-aCncon 10-29-2021 TSH Qn 0.048 m[IU]/L Low 0.270-4.200 [facility] Comment on above: Order Comment: Speci men Type: BLOOD SPECIMENOrdering Facility: [facility] Address: [address] [place], [place] [address] Performed By: #### 3 016-3 ####[facility] LABCLIA [id number] [id number] [id number] [place] CARDIAC AMAN ADMITon 022 CK [Catalytic activity/Vol] 69 U/L Normal 26-192 [facility] Comment on above: Performed By: #### C JAKUB MOLINA #### [facility] [address] [place] [address] Dr. Sheila Mittal CK.MB [Mass/Vol] 2.36 ng/mL Normal <=3.60 [facility] Comment on above: Performed By: #### C JAKUB MOLINA #### [facility] [address] [place] [address] Dr. Sheila Mittal HSTROP 9.5 pg/mL Normal 4.0-51.3 [facility] Comment on above: Result Comment: CUT- OFF POINTS HAVE BEEN ESTABLISHED BASED ON THE FOURTH UNIVERSAL DEFINITIONS OF MYOCARDIAL INFARCTION. THE UPPER REFERENCE LIMIT (URL) OF TROPONIN, DEFINED THE 99TH PERCENTILE OF cTnI DISTRIBUTION IN A REFERENCE POPULATION, HAS BEEN CONFIRMED THE DECISION THRESHOLD FOR RI DIAGNOSIS. Performed By: #### JAKUB Rooney MP #### [facility] [address] [place] [address] Dr. Sheila Mittal TEMO 97 ng/mL Critically high 9-82 [facility] Comment on above: Performed By: #### C JAKUB MOLINA #### [facility] [address] [place] [address] Dr. Sheila Mittal CBC AUTO DIFFon 10-18-2021 BASO # 0.0 103/ul Normal 0.0-0.1 [facility] Comment on above: Performed By: #### C BC #### [facility] [address] [place] [address] Dr. Sheila Mittal Basophils/100 WBC (Bld) 0.4 % Normal 0.2-2.0 [facility] Comment on above: Performed By: #### C BC #### [facility] [address] [place] [address] Dr. Sheila Mittal EO # 0.1 103/ul Normal 0.0-0.7 [facility] Comment on above: Performed By: #### C BC #### [facility] [address] [place] [address] Dr. Sheila Mittal Eosinophils/100 WBC (Bld) 1.0 % Normal 0.9-7.0 [facility] Comment on above: Performed By: #### C BC #### [facility] [address] [place] [address] Dr. Sheila Mittal Erythrocyte distribution width (RBC) [Ratio] 15.0 % Normal 11.0-15.0 [facility] Comment on above: Performed By: #### C BC #### [facility] [address] [place] [address] Dr. Sheila Mittal Hematocrit (Bld) [Volume fraction] 45.0 % Normal 36.0-48.0 [facility] Comment on above: Performed By: #### C BC #### [facility] [address] [place] [address] Dr. Sheila Mittal Hemoglobin (Bld) [Mass/Vol] 14.3 g/dL Normal 12.0-16.0 [facility] Comment on above: Performed By: #### C BC #### [facility] [address] [place] [address] Dr. Sheila Mittal IG # 0.04 10e3/ul Critically high 0.00-0.03 [facility] Comment on above: Performed By: #### C BC #### [facility] [address] [place] [address] Dr. Sheila Mittal IG % 0.4 % Normal 0.0-0.5 [facility] Comment on above: Performed By: #### C BC #### [facility] [address] [place] [address] Dr. Sheila Mittal LYMPH # 1.5 103/ul Normal 1.2-3.8 [facility] Comment on above: Performed By: #### C BC #### [facility] [address] [place] [address] Dr. Sheila Mittal Lymphocytes/100 WBC (Bld) 17.0 % Critically low 20.5-60.0 [facility] Comment on above: Performed By: #### C BC #### [facility] [address] [place] [address] Dr. Sheila Mittal MANUAL DIFF REQ NO Normal [facility] Comment on above: Performed By: #### C BC #### [facility] [address] [place] [address] Dr. Sheila Mittal MCH (RBC) [Entitic mass] 27.3 pg Normal 26.7-34.0 [facility] Comment on above: Performed By: #### C BC #### [facility] [address] [place] [address] Dr. Sheila Mittal MCHC (RBC) [Mass/Vol] 31.8 g/dL Normal 29.9-35.2 [facility] Comment on above: Performed By: #### C BC #### [facility] [address] [place] [address] Dr. Sheila Mittal MCV (RBC) [Entitic vol] 85.9 fL Normal 81.0-99.0 [facility] Comment on above: Performed By: #### C BC #### [facility] [address] [place] [address] Dr. Sheila Mittal MONO # 0.6 103/ul Normal 0.3-0.8 [facility] Comment on above: Performed By: #### C BC #### [facility] [address] [place] [address] Dr. Sheila Mittal Monocytes/100 WBC (Bld) 6.6 % Normal 1.7-12.0 [facility] Comment on above: Performed By: #### C BC #### [facility] [address] [place] [address] Dr. Sheila Mittal NEUT # 6.8 103/ul Critically high 1.4-6.5 [facility] Comment on above: Performed By: #### C BC #### [facility] [address] [place] [address] Dr. Sheila Mittal Neutrophils/100 WBC (Bld) 74.6 % Normal 43.0-75.0 [facility] Comment on above: Performed By: #### C BC #### [facility] [address] [place] [address] Dr. Sheila Mittal Platelet mean volume (Bld) [Entitic vol] 9.3 fL Critically low 9.5-13.5 [facility] Comment on above: Performed By: #### C BC #### [facility] [address] [place] [address] Dr. Sheila Mittal PLT 231 103/ul Normal 150-450 [facility] Comment on above: Performed By: #### C BC #### [facility] [address] [place] [address] Dr. Sheila Mittal RBC 5.24 106/ul Normal 4.20-5.40 [facility] Comment on above: Performed By: #### C BC #### [facility] [address] [place] [address] Dr. Sheila Mittal WBC 9.1 103/ul Normal 4.0-11.0 [facility] Comment on above: Performed By: #### C BC #### [facility] [address] [place] [address] Dr. Sheila Mittal ER URINE PROFILEon 2 Bilirubin Ql (U) SMALL Abnormal NEGATIVE [facility] Comment on above: Performed By: #### WHITNEY KULKARNIRO #### [facility] [address] [place] [address] Dr. Sheila Mittal Clarity (U) SL CLOUDY Abnormal CLEAR [facility] Comment on above: Performed By: #### WHITNEY KULKARNIRO #### [facility] [address] [place] [address] Dr. Sheila Mittal Color (U) YELLOW Normal YELLOW [facility] Comment on above: Performed By: #### WHITNEY KULKARNIRO #### [facility] [address] [place] [address] Dr. Sheila ANGULO A micrscopic examination will be performed if indicated. Normal [facility] Comment on above: Performed By: #### WHITNEY KULKARNIRO #### [facility] [address] [place] [address] Dr. Sheila Mittal Glucose Ql (U) Negative Normal NEGATIVE [facility] Comment on above: Performed By: #### WHITNEY KULKARNIRO #### [facility] [address] [place] [address] Dr. Sheila Mittal Hemoglobin Ql (U) Negative Normal NEGATIVE [facility] Comment on above: Performed By: #### WHITNEY KULKARNIRO #### [facility] [address] [place] [address] Dr. Sheila Mittal Ketones Ql (U) TRACE Abnormal NEGATIVE [facility] Comment on above: Performed By: #### WHITNEY KULKARNIRO #### [facility] [address] [place] [address] Dr. Sheila Mittal LEUKOCYTES TRACE Abnormal NEGATIVE [facility] Comment on above: Performed By: #### WHITNEY KULKARNIRO #### [facility] [address] [place] [address] Dr. Sheila Mittal Nitrite Ql (U) Negative Normal NEGATIVE [facility] Comment on above: Performed By: #### WHITNEY KULKARNIRO #### [facility] [address] [place] [address] Dr. Sheila Mittal pH (U) 7.0 [pH] Normal 5-9 [facility] Comment on above: Performed By: #### WHITNEY KULKARNIRO #### [facility] [address] [place] [address] Dr. Sheila Mittal Protein (U) [Mass/Vol] 100 mg/dL Abnormal NEGAT PATRIZIA/ TRACE [facility] Comment on above: Performed By: #### WHITNEY KULKARNIRO #### [facility] [address] [place] [address] Dr. Sheila Mittal SPEC GRAVITY 1.015 Normal 1.005-<=1.02 5 [facility] Comment on above: Performed By: #### WHITNEY KULKARNIRO #### [facility] [address] [place] [address] Dr. Sheila Mittal UR MICRO IND INDICATED Normal [facility] Comment on above: Performed By: #### E WHITNEY SLADERO #### [facility] [address] [place] [address] Dr. Sheila Mittal Urobilinogen Qn (U) 0.2 {Brooke'U}/dL Normal 0.2 - 1. 0 [facility] Comment on above: Performed By: #### WHITNEY KULKARNIRO #### [facility] [address] [place] [address] Dr. Sheila Mittal LACTATE/LACTIC ACIDon 2021 Lactate [Moles/Vol] 1.9 mmol/L Normal 0.4-1.9 [facility] Comment on above: Performed By: #### L ACT #### [facility] [address] [place] [address] Dr. Sheila Mittal PROF 14(COMP METB)on 022 Albumin [Mass/Vol] 3.8 g/dL Normal 3.4-5.0 [facility] [facility] Comment on above: Performed By: #### C JAKUB MOLINA #### [facility] [address] [place] [address] Dr. Sheila Mittal Albumin/Globulin [Mass ratio] 0.8 {ratio} Normal [facility] Comment on above: Performed By: #### C JAKUB MOLINA #### [facility] [address] [place] [address] Dr. Sheila Mittal ALP [Catalytic activity/Vol] 155 U/L Critically high 46-116 [facility] Comment on above: Performed By: #### C TRACY, CMADM #### [facility] [address] [place] [address] Dr. Sheila Mittal ALT [Catalytic activity/Vol] 37 U/L Normal 14-59 [facility] Comment on above: Performed By: #### C TRACY, CMADM #### [facility] [address] [place] [address] Dr. Sheila Mittal Anion gap [Moles/Vol] 13.5 mmol/L Normal [facility] Comment on above: Performed By: #### C TRACY, CMADM #### [facility] [address] [address] [address] Sheila Mittal AST [Catalytic activity/Vol] 42 U/L Critically high 15-37 [facility] Comment on above: Performed By: #### C MP, CMADM #### [facility] [address] [address] [address] Sheila Mittal Bilirubin [Mass/Vol] 0.7 mg/dL Normal 0.2-1.0 [facility] Comment on above: Performed By: #### C MP, CMADM #### [facility] [address] [address] [address] Sheila Mittal Calcium [Mass/Vol] 10.0 mg/dL Normal 8.5-10.1 [facility] Comment on above: Performed By: #### C MP, CMADM #### [facility] [address] [address] [address] Sheila Mittal Chloride [Moles/Vol] 103 mmol/L Normal 98-107 [facility] Comment on above: Performed By: #### C MP, CMADM #### [facility] [address] [address] [address] Sheila Mittal CO2 [Moles/Vol] 29.7 mmol/L Normal 21.0-32.0 [facility] Comment on above: Performed By: #### C MP, CMADM #### [facility] [address] [address] [address] Sheila Mittal Creatinine [Mass/Vol] 1.06 mg/dL Critically high 0.55-1.02 [facility] Comment on above: Performed By: #### C MP, CMADM #### [facility] [address] [address] [address] Sheila Mittal EGFR-AF GABONESE >60 Normal >=60 [facility] Comment on above: Performed By: #### C MP, CMADM #### [facility] [address] [address] [address] Sheila Mittal EGFR-NON AF GABONESE 51 mL/min/1.73m2 Critically low >=60 [facility] Comment on above: Performed By: #### C TRACY, CMADM #### [facility] [address] [address] [address] Sheila Mittal Globulin (S) [Mass/Vol] 4.5 g/dL Normal [facility] Comment on above: Performed By: #### C TRACY, CMADM #### [facility] [address] [address] [address] Sheila Mittal Glucose [Mass/Vol] 104 mg/dL Normal 74-106 [facility] Comment on above: Performed By: #### C TRACY, CMADM #### [facility] [address] [address] [address] Sheila Mittal Potassium [Moles/Vol] 3.2 mmol/L Critically low 3.5-5.1 [facility] Comment on above: Performed By: #### C TRACY, CMADM #### [facility] [address] [place] [address] Dr. Sheila Mittal Protein [Mass/Vol] 8.3 g/dL Critically high 6.4-8.2 [facility] Comment on above: Performed By: #### C TRACY, TULIODM #### [facility] [address] [place] [address] Dr. Sheila Mittal Sodium [Moles/Vol] 143 mmol/L Normal 136-145 [facility] Comment on above: Performed By: #### C TRACY, CMADM #### [facility] [address] [place] [address] Dr. Sheila Mittal Urea nitrogen [Mass/Vol] 10.0 mg/dL Normal 7.0-18.0 [facility] Comment on above: Performed By: #### C TRACY, TULIODM #### [facility] [address] [place] [address] Dr. Sheila Mittal Urea nitrogen/Creatinine [Mass ratio] 9.4 mg/mg Normal [facility] Comment on above: Performed By: #### C TRACY, CMADM #### [facility] [address] [place] [address] Dr. Sheila Mittal URINE MICROSCOPIC ONLYon BACTERIA NONE SEEN Normal NONE SEEN [facility] Comment on above: Performed By: #### Leonardo SLADE UMICRO ####[facility] [id number] [address]Dr. Sheila Mittal Bacteria identified Cx Nom (U) NOT INDICATED Normal [facility] Comment on above: Performed By: #### Leonardo SLADE UMICRO ####[facility] [id number] [address]Dr. Sheila Mittal CAST SEEN Abnormal NONE SEEN [facility] Comment on above: Performed By: #### Leonardo SLADE UMICRO ####[facility] [id number] [address]Dr. Sheila Mittal Crystals LM Nom (Urine sed) NONE SEEN Normal NONE SEEN [facility] Comment on above: Performed By: #### Leonardo SLADE UMICRO ####[facility] [address] [place], [place] [address]Dr. Sheila Mittal Epithelial cells LM Ql (Urine sed) FEW Abnormal NONE SEEN /RARE [facility] Comment on above: Performed By: #### Leonardo SLADE UMICRO ####[facility] [address] [place], [place] [address]Dr. Sheila Mittal MUCOUS NONE SEEN Normal NONE SEEN [facility] Comment on above: Performed By: #### Leonardo SLADE UMICRO ####[facility] [address] [place], [place] [address]Dr. Sheila Mittal RBC NONE SEEN Abnormal 0-2 [facility] Comment on above: Performed By: #### Leonardo SLADE UMICRO ####[facility] [id number] [address]Dr. Sheila Mittal WBC 0-2 Abnormal NONE SEEN [facility] Comment on above: Performed By: #### Leonardo SLADE UMICRO ####[facility] [address] [place], [place] [address]Dr. Sheila Mittal XR CHEST 1 Von 10-18-2021 [...] DELISA EVANS Date: 2021-10-18 16:27 Normal [facility] Basic Metabolic Panelon 06-0 Calcium [Mass/Vol] 9.6 mg/dL Normal 8.2-10.2 [facility] Comment on above: Performed By: #### U YUDI, PTH, PHOS, BMP, [id number] #### [address] Chloride [Moles/Vol] 102 mmol/L Normal 95-114 [facility] Comment on above: Performed By: #### U YUDI, PTH, PHOS, BMP, [id number] #### [address] CO2 [Moles/Vol] 24.2 mmol/L Normal 22.0-30.0 [facility] Comment on above: Performed By: #### U YUDI, PTH, PHOS, BMP, [id number] #### [address] Creatinine [Mass/Vol] 1.01 mg/dL Normal 0.44-1.03 [facility] Comment on above: Performed By: #### U YUDI, PTH, PHOS, BMP, [id number] #### [address] Estimated GFR ( [place] > 60 [facility] Comment on above: Result Comment: GFR estimated reference range: According to KDOQI guidelines, <60 ml/min/1.73m2 is sufficient to diagnose a patient with chronic kidney disease. Performed By: #### U YUDI, PTH, PHOS, BMP, [id number] #### [address] Estimated GFR (Non- Am 54 [facility] Comment on above: Performed By: #### U YUDI, PTH, PHOS, BMP, [id number] #### [facility] [address] [place] [address] [place] Glucose [Mass/Vol] 95 mg/dL Normal 70-100 [facility] Comment on above: Result Comment: [facility] Glucose Reference Range is dependent on time and content of last meal. Glucose of more than 200 mg/dL in a nonstressed, ambulatory subject supports the diagnosis of Diabetes Mellitus. ADA recommended reference range Performed By: #### U YUDI, PTH, PHOS, BMP, [id number] #### [facility] [address] Potassium [Moles/Vol] 3.2 mmol/L Low 3.5-5.1 [facility] Comment on above: Performed By: #### U YUDI, PTH, PHOS, BMP, [id number] #### [facility] [address] Sodium [Moles/Vol] 138 mmol/L Normal 136-146 [facility] Comment on above: Performed By: #### U YUDI, PTH, PHOS, BMP, [id number] #### [facility] [address] [place] [address] [place] Urea nitrogen [Mass/Vol] 16 mg/dL Normal 9-23 [facility] Comment on above: Performed By: #### U YUDI, PTH, PHOS, BMP, [id number] #### [place] [address] [place] Creatinine and Glomerular fi ltration rate.predicted panel (S/P/Bld)Ordered By: Daniel Ma on 07-15-2021 Creatinine [Mass/Vol] 1.01 mg/dL 0.44-1.03 [facility] Estimated glomerular filtrat ion rate (GFR) non- AmericanOrdered By: Daniel Ma on 07-15-2021 GFR/1.73 sq M.predicted among non-blacks MDRD (S/P/Bld) [Vol rate/Area] 54 mL/Min [facility] No Panel InformationOrdered By: Daniel Ma on 07-15-2021 25-Hydroxy Vitamin D Total 42.9 ng/mL 30-100 [facility] Comment on above: VITAMIN D STATUS 25( [place])VITAMIN D RANGE (ng/mL) Deficient <20 Insufficient 20 to <30 Sufficient 30 to 100 Reference: Jenniffer MF,Neal HORNE, Mary FERGUSON, et al. Evaluation,treatment, and prevention of vitamin D deficiency; an Endocrine Society clinical practice guideline. JCEM. 2010; 96(7):1911-30. Estimated GFR () > 60 mL/Min [facility] Comment on above: GFR estimated refere nce range: According to KDOQI guidelines, <60 ml/min/1.73m2 is sufficient to diagnose a patient with chronic kidney disease. Pharmacy Creatinine Clearance (Chem N/A [facility] No Panel Informationon 07-15 9.6\S\9.6 Normal 8.2-10.2 [address] [place] [address] DO Work Phone: 24.2\S\24.2 Normal 22.0-30.0 [facility] 3 DO Work Phone: 102\S\102 Normal 95-114 [facility] 3 DO Work Phone: 3.2\S\3.2 Normal 2.5-4.6 [facility] 3 DO Work Phone: 138\S\138 Normal 136-146 [facility] 3 DO Work Phone: > 60 Normal [facility] 3 DO Work Phone: Comment on above: GFR estimated refere nce range: According to KDOQI guidelines, <60 ml/min/1.73m2 is sufficient to diagnose a patient with chronic kidney disease. 54\S\54 Normal [facility] 3 DO Work Phone: 1.01\S\1.01 Normal 0.44-1.03 [facility] 3 DO Work Phone: 16\S\16 Normal 9-23 [place] [address] DO Work Phone: 95\S\95 Normal 70-100 [place] [address] DO Work Phone: Comment on above: Random Glucose Refer ence Range is dependent on time and content of last meal. Glucose of more than 200 mg/dL in a nonstressed, ambulatory subject supports the diagnosis of Diabetes Mellitus. ADA recommended reference range 4.7\S\4.7 Normal 2.6-7.2 [place] [address] DO Work Phone: 42.9\S\42.9 Normal 30-100 [place] [address] DO Work Phone: Comment on above: VITAMIN D STATUS 25( [place])VITAMIN D RANGE (ng/mL) Deficient <20 Insufficient 20 to <30 Sufficient 30 to 100 Reference: Jenniffer MF,Neal HORNE, Mary FERGUSON, et al. Evaluation,treatment, and prevention of vitamin D deficiency; an Endocrine Society clinical practice guideline. JCEM. 2010; 96(7):1911-30. 48.8\S\48.8 Normal 12- [address] [place] [address] DO Work Phone: Comment on above: PERFORMED BY:[facility] [place] [id number] MEDICAL DIRECTORLISA VERDE M.D. Parathyroid Hormone Intacton 07-15-2021 Parathyroid Hormone Intact 48.8 pg/mL Normal 12-88 [facility] Comment on above: Result Comment: PERF ORMED BY: [facility] [address] [place] [address] PATHOLOGIST TRIGONOMETRY TUTOR LISA VERDE M.D. Performed By: #### C BC, LIPASE, BMP, HEPATIC #### [facility] [address] [place] [address] [facility] Phosphate [Mass/volume] in S wero or PlasmaOrdered By: Daniel Ma on 07-15-2021 Phosphate [Mass/Vol] 3.2 mg/dL 2.5-4.6 [facility] Phosphoruson 07-15-2021 Phosphate [Mass/Vol] 3.2 mg/dL Normal 2.5-4.6 [facility] Comment on above: Performed By: #### U YUDI, PTH, PHOS, BMP, [id number] #### [facility] [address] Serum or plasma calcium jannet urement (mass/volume)Ordered By: Daniel Ma on 07-15-2021 Calcium [Mass/Vol] 9.6 mg/dL 8.2-10.2 [facility] Serum or plasma chloride yair surement (moles/volume)Ordered By: Daniel Ma on 07-15-2021 Chloride [Moles/Vol] 102 mmol/L 95-114 [facility] Serum or plasma glucose jannet urement (mass/volume)Ordered By: Daniel Ma on 07-15-2021 Glucose [Mass/Vol] 95 mg/dL 70-100 [facility] Comment on above: ADA recommended refe rence range Random Glucose Reference Range is dependent on time and content of last meal. Glucose of more than 200 mg/dL in a nonstressed, ambulatory subject supports the diagnosis of Diabetes Mellitus. Serum or plasma intact parat hyroid hormone measurement (mass/volume)Ordered By: Daniel Ma on 07-15-2021 Parathyrin.intact [Mass/Vol] 48.8 pg/mL 12-88 [facility] Serum or plasma potassium me asurement (moles/volume)Ordered By: Daniel Ma on 07-15-2021 Potassium [Moles/Vol] 3.2 mmol/L 3.5-5.1 [facility] Serum or plasma sodium measu rement (moles/volume)Ordered By: Daniel Ma on 07-15-2021 Sodium [Moles/Vol] 138 mmol/L 136-146 [facility] Serum or plasma total carbon dioxide measurement (moles/volume)Ordered By: Daniel Ma on 07-15-2021 CO2 [Moles/Vol] 24.2 mmol/L 22.0-30.0 [facility] Serum or plasma urea nitroge n measurement (mass/volume)Ordered By: Daniel Ma on 07-15-2021 Urea nitrogen [Mass/Vol] 16 mg/dL 9- [facility] Serum or plasma uric acid me asurement (mass/volume)Ordered By: Daniel Ma on 07-15-2021 Urate [Mass/Vol] 4.7 mg/dL 2.6-7.2 [facility] Uric Acidon 07-15-2021 Urate [Mass/Vol] 4.7 mg/dL Normal 2.6-7.2 [facility] Comment on above: Performed By: #### U YUDI, PTH, PHOS, BMP, [id number] #### [facility] [address] [id number] [facility] Vitamin D 25 Hydroxy Totalon 07-15-2021 Vitamin D 25 Hydroxy Total 42.9 ng/mL Normal 30-100 [facility] Comment on above: Result Comment: DENNY MIN D STATUS 25([place])VITAMIN D RANGE (ng/mL) Deficient <20 Insufficient 20 to <30 Sufficient 30 to 100 Reference: Jenniffer MF,Neal NC, Mary FERGUSON, et al. Evaluation,treatment, and prevention of vitamin D deficiency; an Endocrine Society clinical practice guideline. JCEM. 2010; 96(7):1911-30. Performed By: #### C BC, LIPASE, BMP, HEPATIC #### [facility] [address] [place] [address] [facility] US aortaon 06-14-2021 US aorta [facility] [address] [id number] Ultrasound Report Signed Patient: Dianelys Womack MR#: [id number] 0 : 1950 Acct:[id number] Age/Sex: 70 / F ADM Date: 06/14/21 Loc: [facility] Room: [facility] Attending Dr: Nick Acosta MD Ordering [...] Nick Acosta M.D.06/14/2021 10:56 AM Dictation Location: [place] [address] Tech: Hellen Tahir Transcribed By: AMINA 06/14/21 1056 Dictated By: Nick Acosta MD 06/14/21 1055 Signed By: 06/14/21 1056 [facility] Tobacco Screening.on 022 Adult depression screening assessment No [facility] 250 DO Work Phone: Fall risk assessment b) One or more falls in the last year [facility] 250 DO Work Phone: Tobacco use status [facility] b) No [facility] 250 DO Work Phone: Vital Signs Date Time Vital Sign Value Performing Clinician Facility 03-21-2024 15:47-0500 Body height 160 cm Monika Lehman MD Work Phone: [facility] 03-21-2024 15:47-0500 Body mass index (BMI) [Ratio] 32.59 kg/m2 Monika Lehman MD Work Phone: [facility] 03-21-2024 15:47-0500 Body weight 83.46 kg Monika Lehman MD Work Phone: [facility] 03-21-2024 15:47-0500 Diastolic blood pressure 88 mm[Hg] Monika Lehman MD Work Phone: [facility] 03-21-2024 15:47-0500 Heart rate 91 /min Monika Lehman MD Work Phone: [facility] 03-21-2024 15:47-0500 SaO2% (BldA) [Mass fraction] 98 % Monika Lehman MD Work Phone: [facility] 03-21-2024 15:47-0500 Systolic blood pressure 138 mm[Hg] Monika Lehman MD Work Phone: [facility] 03-05-2024 16:34-0500 Body height 160 cm Monika Lehman MD Work Phone: [facility] 03-05-2024 16:34-0500 Body mass index (BMI) [Ratio] 32.42 kg/m2 Monika Lehman MD Work Phone: [facility] 03-05-2024 16:34-0500 Body weight 83.01 kg Monika Lehman MD Work Phone: [facility] 03-05-2024 16:34-0500 Diastolic blood pressure 86 mm[Hg] Monika Lehman MD Work Phone: [facility] 03-05-2024 16:34-0500 Heart rate 94 /min Monika Lehman MD Work Phone: [facility] 03-05-2024 16:34-0500 SaO2% (BldA) [Mass fraction] 95 % Monika Lehman MD Work Phone: [facility] 03-05-2024 16:34-0500 Systolic blood pressure 138 mm[Hg] Monika Lehman MD Work Phone: [facility] 02-20-2024 14:11-0500 Body height 160 cm Monkia Lehman MD Work Phone: [facility] 02-20-2024 14:11-0500 Body mass index (BMI) [Ratio] 32.95 kg/m2 Monika Lehman MD Work Phone: [facility] 02-20-2024 14:11-0500 Body weight 84.37 kg Monika Lehman MD Work Phone: [facility] 02-20-2024 14:11-0500 Diastolic blood pressure 86 mm[Hg] Monika Lehman MD Work Phone: [facility] 02-20-2024 14:11-0500 Heart rate 90 /min Monika Lehman MD Work Phone: [facility] 02-20-2024 14:11-0500 SaO2% (BldA) [Mass fraction] 99 % Monika Lehman MD Work Phone: [facility] 02-20-2024 14:11-0500 Systolic blood pressure 124 mm[Hg] Monika Lehman MD Work Phone: [facility] 01-17-2024 13:57-0500 Body height 160 cm Елена Mg [employer]ISTERED MIDWIFE Work Phone: [facility] 01-17-2024 13:57-0500 Body mass index (BMI) [Ratio] 32.63 kg/m2 Елена Mg [employer]ISTERED MIDWIFE Work Phone: [facility] 01-17-2024 13:57-0500 Body weight 83.55 kg Елена Mg [employer]ISTERED MIDWIFE Work Phone: [facility] 01-17-2024 13:57-0500 Diastolic blood pressure 80 mm[Hg] Елена Mg [employer]ISTERED MIDWIFE Work Phone: [facility] 01-17-2024 13:57-0500 Heart rate 69 /min Елена Mg [employer] MIDWIFE Work Phone: [facility] 01-17-2024 13:57-0500 Respiratory rate 17 /min Елена Mg [employer]ISTER[employer] MIDWIFE Work Phone: [facility] 01-17-2024 13:57-0500 SaO2% (BldA) [Mass fraction] 97 % Елена Mg [employer]ISTERED MIDWIFE Work Phone: [facility] 01-17-2024 13:57-0500 Systolic blood pressure 122 mm[Hg] Елена Mg REGISTERED MIDWIFE Work Phone: [facility] 12-20-2023 13:17-0500 Body height 160 cm Елена Mg [employer]ISTERED MIDWIFE Work Phone: [facility] 12-20-2023 13:17-0500 Body mass index (BMI) [Ratio] 30.82 kg/m2 Елена Mg [employer]ISTERED MIDWIFE Work Phone: [facility] 12-20-2023 13:17-0500 Body weight 78.93 kg Елена Mg [employer]ISTERED MIDWIFE Work Phone: [facility] 12-20-2023 13:17-0500 Diastolic blood pressure 88 mm[Hg] Елена Mg [employer]ISTERED MIDWIFE Work Phone: [facility] 12-20-2023 13:17-0500 Heart rate 81 /min Елена Mg [employer]ED MIDWIFE Work Phone: [facility] 12-20-2023 13:17-0500 SaO2% (BldA) [Mass fraction] 98 % Елена Mg [employer]ISTERED MIDWIFE Work Phone: [facility] 12-20-2023 13:17-0500 Systolic blood pressure 134 mm[Hg] Елена Mg REGISTERED MIDWIFE Work Phone: [facility] 07-21-2023 11:11-0400 Body height 160 cm Daniel Ma MD Work Phone: [facility] 07-21-2023 11:11-0400 Body mass index (BMI) [Ratio] 30.82 kg/m2 Daniel Ma MD Work Phone: [facility] 07-21-2023 11:11-0400 Body weight 78.93 kg Daniel Ma MD Work Phone: [facility] 07-21-2023 11:11-0400 Diastolic blood pressure 76 mm[Hg] Daniel Ma MD Work Phone: [facility] 07-21-2023 11:11-0400 Heart rate 80 /min Daniel Ma MD Work Phone: [facility] 07-21-2023 11:11-0400 Systolic blood pressure 126 mm[Hg] Daniel Ma MD Work Phone: [facility] 01-20-2023 10:47-0500 Body height 160 cm Daniel Ma MD Work Phone: [facility] 01-20-2023 10:47-0500 Body mass index (BMI) [Ratio] 29.76 kg/m2 Daniel Ma MD Work Phone: [facility] 01-20-2023 10:47-0500 Body weight 76.2 kg Daniel Ma MD Work Phone: [facility] 01-20-2023 10:47-0500 Diastolic blood pressure 79 mm[Hg] Daniel Ma MD Work Phone: [facility] 01-20-2023 10:47-0500 Heart rate 83 /min Daniel Ma MD Work Phone: [facility] 01-20-2023 10:47-0500 Systolic blood pressure 119 mm[Hg] Daniel Ma MD Work Phone: [facility] 11-21-2022 15:31-0400 Body height 160 cm Elinor Raman MD Work Phone: [facility] 11-21-2022 15:31-0400 Body mass index (BMI) [Ratio] 29.58 kg/m2 Elinor Raman MD Work Phone: [facility] 11-21-2022 15:31-0400 Body weight 75.75 kg Elinor Raman MD Work Phone: [facility] 11-21-2022 15:31-0400 Diastolic blood pressure 86 mm[Hg] Elinor Raman MD Work Phone: [facility] 11-21-2022 15:31-0400 Heart rate 82 /min Elinor Raman MD Work Phone: [facility] 11-21-2022 15:31-0400 Systolic blood pressure 112 mm[Hg] Elinor Raman MD Work Phone: [facility] 10-25-2022 11:30-0400 Heart rate 61 /min Kenton Kapadia MD Work Phone: [facility] 10-25-2022 11:30-0400 SaO2% (BldA) [Mass fraction] 97 % Kenton Kapadia MD Work Phone: [facility] 10-25-2022 11:29-0400 Diastolic blood pressure 82 mm[Hg] Kenton Kapadia MD Work Phone: [facility] 10-25-2022 11:29-0400 Systolic blood pressure 131 mm[Hg] Kenton Kapadia MD Work Phone: [facility] 10-25-2022 11:15-0400 Body temperature 98.1 [degF] Kenton Kapadia MD Work Phone: [facility] 10-25-2022 11:15-0400 Respiratory rate 18 /min Kenton Kapadia MD Work Phone: [facility] 10-25-2022 09:51-0400 Body height 160 cm Kenton Kapadia MD Work Phone: [facility] 10-25-2022 09:51-0400 Body weight 68.04 kg Kenton Kapadia MD Work Phone: [facility] 09-20-2022 12:51-0400 Body height 160.02 cm Monika Lehman Work Phone: [address] Work Phone: 09-20-2022 12:51-0400 Body mass index (BMI) [Ratio] 29.23 kg/m2 Monika Lehman Work Phone: [address] Work Phone: 09-20-2022 12:51-0400 Body surface area Derived from formula 1.78 m2 Monika Lehman Work Phone: [address] Work Phone: 09-20-2022 12:51-0400 Body temperature 97.2 [degF] Monika Lehman Work Phone: [address] Work Phone: 09-20-2022 12:51-0400 Body weight 74.84 kg Rugen M [place] Work Phone: [address] Work Phone: 09-20-2022 12:51-0400 Diastolic blood pressure 100 mm[Hg] Rugen M [place] Work Phone: [address] Work Phone: 09-20-2022 12:51-0400 Heart rate 90 /min Rugen M [place] Work Phone: [address] Work Phone: 09-20-2022 12:51-0400 Systolic blood pressure 156 mm[Hg] Rugen M [place] Work Phone: [address] Work Phone: 05-04-2022 11:56-0400 Body height 160.02 cm Rugen M [place] Work Phone: [facility] 250 DO Work Phone: 05-04-2022 11:56-0400 Body mass index (BMI) [Ratio] 26.93 kg/m2 Rugen M Fallon Work Phone: [facility] 250 DO Work Phone: 05-04-2022 11:56-0400 Body surface area Derived from formula 1.72 m2 Rugen M Fallon Work Phone: [facility] 250 DO Work Phone: 05-04-2022 11:56-0400 Body weight 68.95 kg Rugen M [place] Work Phone: [facility] 250 DO Work Phone: 05-04-2022 11:56-0400 Diastolic blood pressure 70 mm[Hg] Rugen M Fallon Work Phone: [facility] 250 DO Work Phone: 05-04-2022 11:56-0400 Heart rate 60 /min Rugen M Fallon Work Phone: [facility] 250 DO Work Phone: 05-04-2022 11:56-0400 Systolic blood pressure 130 mm[Hg] Rugen M [place] Work Phone: [facility] 250 DO Work Phone: 03-22-2022 15:35-0500 Body height 160.02 cm Rugen M Fallon Work Phone: [facility] 3 DO Work Phone: 03-22-2022 15:35-0500 Body mass index (BMI) [Ratio] 27.81 kg/m2 Rugen M Fallon Work Phone: [facility] 3 DO Work Phone: 03-22-2022 15:35-0500 Body surface area Derived from formula 1.74 m2 Rugen M Fallon Work Phone: [facility] 3 DO Work Phone: 03-22-2022 15:35-0500 Body temperature 97.1 [degF] Rugen M Fallon Work Phone: [facility] 3 DO Work Phone: 03-22-2022 15:35-0500 Body weight 71.22 kg Rugen M Fallon Work Phone: [facility] 3 DO Work Phone: 03-22-2022 15:35-0500 Diastolic blood pressure 82 mm[Hg] Rugen M [place] Work Phone: [facility] 3 DO Work Phone: 03-22-2022 15:35-0500 Heart rate 60 /min Rugen Padmini Fallon Work Phone: [facility] 3 DO Work Phone: 03-22-2022 15:35-0500 Systolic blood pressure 130 mm[Hg] Rugen Padmini Fallon Work Phone: [facility] 3 DO Work Phone: 02-24-2022 09:51-0500 Body height 160 cm Pacc 2 Work Phone: [facility] 02-24-2022 09:51-0500 Body temperature 97.2 [degF] Pacc 2 Work Phone: [facility] 02-24-2022 09:51-0500 Body weight 71.22 kg Pacc 2 Work Phone: [facility] 02-24-2022 09:51-0500 Diastolic blood pressure 87 mm[Hg] Pacc 2 Work Phone: [facility] 02-24-2022 09:51-0500 Heart rate 63 /min Pacc 2 Work Phone: [facility] 02-24-2022 09:51-0500 SaO2% (BldA) [Mass fraction] 99 % Pacc 2 Work Phone: [facility] 02-24-2022 09:51-0500 Systolic blood pressure 153 mm[Hg] Pacc 2 Work Phone: [facility] 01-12-2022 10:05-0500 Body height 157.5 cm BROOKE Vera MD Work Phone: [facility] 01-12-2022 10:05-0500 Body temperature 97.39 [degF] BROOKE Vera MD Work Phone: [facility] 01-12-2022 10:05-0500 Body weight 71.89 kg BROOKE Vera MD Work Phone: [facility] 01-12-2022 10:05-0500 Diastolic blood pressure 107 mm[Hg] BROOKE Vera MD Work Phone: [facility] 01-12-2022 10:05-0500 Heart rate 107 /min BROOKE Vera MD Work Phone: [facility] 01-12-2022 10:05-0500 SaO2% (BldA) [Mass fraction] 97 % BROOKE Vera MD Work Phone: [facility] 01-12-2022 10:05-0500 Systolic blood pressure 152 mm[Hg] BROOKE Vera MD Work Phone: [facility] 12-06-2021 12:20-0400 Diastolic blood pressure 89 mm[Hg] Kenton Kapadia MD Work Phone: [facility] 12-06-2021 12:20-0400 Heart rate 69 /min Kenton Kapadia MD Work Phone: [facility] 12-06-2021 12:20-0400 Respiratory rate 16 /min Kenton Kapadia MD Work Phone: [facility] 12-06-2021 12:20-0400 SaO2% (BldA) [Mass fraction] 98 % Kenton Kapadia MD Work Phone: [facility] 12-06-2021 12:20-0400 Systolic blood pressure 153 mm[Hg] Kenton Kapadia MD Work Phone: [facility] 12-06-2021 12:01-0400 Body temperature 96.8 [degF] Kenton Kapadia MD Work Phone: [facility] 12-06-2021 09:04-0400 Body height 160 cm Kenton Kapadia MD Work Phone: [facility] 12-06-2021 09:04-0400 Body weight 77.11 kg Kenton Kapadia MD Work Phone: [facility] 11-17-2021 14:09-0400 Diastolic blood pressure 92 mm[Hg] MD Monika Lehman Work Phone: [facility] 11-17-2021 14:09-0400 Heart rate 92 /min MD Monika Lehman Work Phone: [facility] 11-17-2021 14:09-0400 Respiratory rate 18 /min MD Monika Lehman Work Phone: [facility] 11-17-2021 14:09-0400 SaO2% (BldA) [Mass fraction] 95 % MD Monika Lehman Work Phone: [facility] 11-17-2021 14:09-0400 Systolic blood pressure 168 mm[Hg] MD Monika Lehman Work Phone: [facility] 11-17-2021 10:47-0400 Body height 160.02 cm MD Monika Lehman Work Phone: [facility] 11-17-2021 10:47-0400 Body temperature 98.3 [degF] MD Monika Lehman Work Phone: [facility] 11-17-2021 10:47-0400 Body weight 74.84 kg MD Monika Lehman Work Phone: [facility] 06-14-2021 11:30-0400 Body height 160.02 cm Nick Acosta Other [employer] Other 06-14-2021 11:30-0400 Body mass index (BMI) [Ratio] 31.53 kg/m2 Nick Acosta Other [employer] Other 06-14-2021 11:30-0400 Body temperature 96.4 [degF] Nick Acosta Other [employer] Other 06-14-2021 11:30-0400 Body weight 80.74 kg Nick Acosta Other [employer] Other 06-14-2021 11:30-0400 Diastolic blood pressure 80 mm[Hg] Nick Acosta Other [employer] Other 06-14-2021 11:30-0400 SaO2% (BldA) [Mass fraction] 96 % Nick Acosta Other [employer] Other 06-14-2021 11:30-0400 Systolic blood pressure 140 mm[Hg] Nick Acosta Other [employer] Other 05-03-2021 11:26-0400 Diastolic blood pressure 82 mm[Hg] Monika Washington [place] Work Phone: [employer] 250 DO Work Phone: 05-03-2021 11:26-0400 Systolic blood pressure 128 mm[Hg] Monika imageloop [place] Work Phone: [employer] 250 DO Work Phone: 05-03-2021 11:21-0400 Body height 160.02 cm Monika Washington [place] Work Phone: [employer] 250 DO Work Phone: 05-03-2021 11:21-0400 Body mass index (BMI) [Ratio] 32.77 kg/m2 Rugen Padmini [place] Work Phone: [employer] 250 DO Work Phone: 05-03-2021 11:21-0400 Body surface area Derived from formula 1.87 m2 Rugen M Fallon Work Phone: [facility] [employer] 250 DO Work Phone: 05-03-2021 11:21-0400 Body weight 83.92 kg Rugen M [place] Work Phone: [facility] 250 DO Work Phone: 05-03-2021 11:21-0400 Diastolic blood pressure 93 mm[Hg] Rugen M Fallon Work Phone: [facility] 250 DO Work Phone: 05-03-2021 11:21-0400 Heart rate 63 /min Rugen M Fallon Work Phone: [facility] 250 DO Work Phone: 05-03-2021 11:21-0400 Systolic blood pressure 156 mm[Hg] Rugen M [place] Work Phone: [facility] 250 DO Work Phone: 12-15-2020 12:15-0400 Body height 160.02 cm Nick Acosta Other [employer] Other 12-15-2020 12:15-0400 Body mass index (BMI) [Ratio] 31.53 kg/m2 Nick Acosta Other [employer] Other 12-15-2020 12:15-0400 Body temperature 97.2 [degF] Nick Acosta Other [employer] Other 12-15-2020 12:15-0400 Body weight 80.74 kg Nick Acosta Other [employer] Other 12-15-2020 12:15-0400 Diastolic blood pressure 90 mm[Hg] Nick Acosta Other [employer] Other 12-15-2020 12:15-0400 SaO2% (BldA) [Mass fraction] 97 % Nick Acosta Other [employer] Other 12-15-2020 12:15-0400 Systolic blood pressure 150 mm[Hg] Nick Acosta Other [employer] Other Encounters Encounter Date Encounter Type Care Provider Facility Start: 04-03-2024 End: 04-03-2024 ambulatory ЕЛЕНА MG Not Available Start: 03-26-2024 End: 03-26-2024 Clinisync Result Encounter Monika Lehman MD Work Phone: [facility] Unsolicited Start: 03-26-2024 End: 03-26-2024 Clinisync Result Encounter Monika Lehman MD Work Phone: [facility] Unsolicited Start: 03-21-2024 End: 03-21-2024 Office outpatient visit 25 minutes Monika Lehman MD Work Phone: [facility] Comment on above: Acute non-recurrent maxillary sinusitis (Primary Dx) Start: 03-21-2024 End: 03-21-2024 ambulatory MONIKA LEHMAN Not Available Start: 03-05-2024 End: 03-05-2024 Office outpatient visit 15 minutes Monika Lehman MD Work Phone: [facility] Comment on above: Localized edema (Kellen rigo Dx); Encounter for monitoring diuretic therapy Start: 03-05-2024 End: 03-05-2024 ambulatory JUANEN M FALLON Not Available Start: 02-20-2024 End: 02-20-2024 ambulatory MONIKA M FALLON Not Available Start: 02-20-2024 End: [...] Start: 02-09-2024 End: 02-09-2024 Refill Chhaya Monday PEST CONTROL WORKER HELPER Work Phone: [facility] Comment on above: Adjustment disorder with anxiety (CMS/HCC) (Primary Dx); Hypokalemia; Spondylosis without myelopathy or radiculopathy, lumbar region Start: 01-17-2024 End: 01-17-2024 Patient encounter procedure Елена Mg REGISTERED MIDWIFE Work Phone: [facility] Comment on above: Medicare annual well ness visit, subsequent (Primary Dx); Encounter for vaccination; Neurogenic pain; Central vestibular vertigo; White matter disease; Vascular dementia without behavioral disturbance, psychotic disturbance, mood disturbance, or anxiety, unspecified dementia severity (CMS/HCC); Cerebrovascular accident (CVA) due to thrombosis of precerebral artery (CMS/HCC); Chronic pain syndrome; Other emphysema (CMS/HCC); Carotid stenosis, bilateral; Generalized atherosclerosis; Benign essential hypertension (CMS/HCC); Constipation, unspecified constipation type; Nonalcoholic fatty liver disease without nonalcoholic steatohepatitis (BISWAS); Irritable bowel syndrome with both constipation and diarrhea; Gastroesophageal reflux disease without esophagitis; Chronic kidney disease, stage 3a (HCC) (CMS/HCC); B12 deficiency; Acquired hypothyroidism (CMS/HCC); Vitamin D deficiency; Hyperparathyroidism, unspecified (CMS/HCC); Seasonal allergies; Dyslipidemia (CMS/HCC); BPPV (benign paroxysmal positional vertigo), left; Anxiety and depression (CMS/HCC); Localized edema; Acute serous otitis media, recurrence not specified, unspecified laterality; Muscle cramps Start: 01-17-2024 End: 01-17-2024 Bamboo flowsheet Елена Mg REGISTERED MIDWIFE Work Phone: [facility] Start: 01-17-2024 End: 01-17-2024 Bamboo flowsheet Елена Mg REGISTERED MIDWIFE Work Phone: [facility] Start: 01-17-2024 End: 01-17-2024 ambulatory ЕЛЕНА MG Not Available Start: 01-13-2024 End: 01-13-2024 Telephone encounter Елена Mg REGISTERED MIDWIFE Work Phone: [facility] Start: 12-20-2023 End: 12-20-2023 ambulatory ЕЛЕНА MG Not Available Start: 12-20-2023 End: 12-20-2023 Office outpatient visit 25 minutes Елена Mg REGISTERED MIDWIFE Work Phone: [facility] Comment on above: Chronic kidney disea se, stage 3b (HCC) (CMS/HCC) (Primary Dx); Adjustment disorder with anxiety (CMS/HCC); Neuralgia and neuritis, unspecified; Spondylosis without myelopathy or radiculopathy, lumbar region; Hypothyroidism, unspecified (CMS/HCC); Nonalcoholic fatty liver disease without nonalcoholic steatohepatitis (BISWAS); Polyneuropathy; Peripheral polyneuropathy; Vitamin D deficiency; Abnormal glucose tolerance test; Dyslipidemia (CMS/HCC); Excessive cerumen in ear canal, left Start: 08-07-2023 End: 08-07-2023 ambulatory RUGEN M FALLON Not Available Start: 08-07-2023 End: 01-17-2024 Assay of hemosiderin, quant Елена Mg REGISTERED MIDWIFE Work Phone: [facility] Start: 08-07-2023 Patient encounter procedure Елена Mg REGISTERED MIDWIFE Work Phone: [facility] Start: 07-21-2023 End: 07-21-2023 ambulatory [facility] Ambulatory Start: 07-21-2023 End: 07-21-2023 Office outpatient visit 15 minutes Daniel Ma MD Work Phone: [facility] Comment on above: Essential hypertensi on (Primary Dx) Start: 07-18-2023 End: 07-18-2023 ambulatory AMAN Wood BEJ Not Available Start: 07-04-2023 End: 07-04-2023 ambulatory RONDA Washington HEMMER Not Available Start: 04-24-2023 End: 04-24-2023 ambulatory RUGEN M FALLON Not Available Start: 04-11-2023 End: 04-12-2023 ambulatory ALEAH PIERCE Not Available Start: 03-24-2023 End: 03-24-2023 ambulatory Aleah Pierce PT Work Phone: [facility] Comment on above: Cervical paraspinal muscle spasm (Primary Dx); Polyneuropathy; Central vestibular vertigo; Unsteadiness on feet Start: 03-24-2023 End: 03-24-2023 Patient encounter procedure Aman Quiroz MD Work Phone: [facility] Comment on above: Numbness (Primary Dx ) Start: 01-20-2023 End: 01-20-2023 Office outpatient visit 15 minutes Daniel Ma MD Work Phone: [facility] Dr Comment on above: Essential hypertensi on (Primary Dx) Start: 01-20-2023 End: 01-20-2023 ambulatory [facility] Ambulatory Start: 11-21-2022 End: 11-21-2022 ambulatory [facility] Ambulatory Start: 11-21-2022 End: 11-21-2022 Office outpatient visit 25 minutes Elinor Raman MD Work Phone: [facility] Comment on above: Former smoker (Prima ry Dx); Essential hypertension; 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); PVC (premature ventricular contraction); Other ill-defined heart diseases Start: 10-25-2022 End: 10-25-2022 ambulatory TAZ TEJEDA Facility:[facility] Start: 10-25-2022 End: 10-25-2022 Subsequent hospital visit by physician Kenton Kapadia MD Work Phone: Gastroenterology Comment on above: Abdominal pain, unsp ecified abdominal location [R10.9] Start: 10-18-2022 Telephone encounter Swathi Verduzco RNstave grader Comment on above: Appointment Start: 09-20-2022 Office outpatient vi sit 25 minutes Monika Lehman Work Phone: [address] Work Phone: Start: 09-20-2022 ambulatory [facility] Facility: Start: 05-12-2022 ambulatory Ms. Seema Saldaña Facility: Start: 05-12-2022 Patient encounter procedure Monika Lehman Work Phone: [facility] 250 DO Work Phone: Start: 05-04-2022 ambulatory Ms. Seema Saldaña Facility: Start: 04-21-2022 Telephone encounter Keiko rizzo RN Gastroenterology Comment on above: Orders Start: 04-20-2022 Telephone encounter Debbi ballard MATTRESS STUFFER.RIGGER THIRD Work Phone: Gastroenterology Comment on above: Erroneous encounter- disregard Start: 04-20-2022 End: 04-20-2022 Follow-up encounter Wanda Hurdchon ROY.RIGGER THIRD Work Phone: Colorectal Surgery Comment on above: Follow-up exam (Prim chin Dx) Start: 04-20-2022 End: 04-20-2022 Telemedicine consultation with patient Wanda Rosado APRN.RIGGER THIRD Work Phone: [facility] Start: 04-20-2022 End: 04-21-2022 ambulatory WANDAStephen ROSADO Facility:[facility] Start: 04-19-2022 End: 04-19-2022 ambulatory Debbi Hammond APRN.RIGGER THIRD Work Phone: Gastroenterology Comment on above: Abdominal pain, unsp ecified abdominal location (Primary Dx); Adenomatous rectal polyp; Adverse effect of treatment, initial encounter Start: 04-19-2022 End: 04-19-2022 Telemedicine consultation with patient Debbi Hammond APRN.RIGGER THIRD Work Phone: [facility] Start: 04-11-2022 End: 04-11-2022 ambulatory MONIKA LEHMAN Facility:[facility] Start: 04-10-2022 Orders Only Taz thapa MD Work Phone: Gastroenterology Comment on above: Adenomatous rectal p olyp (Primary Dx) Start: 03-28-2022 Telephone encounter Gareth merritt MD Work Phone: Colorectal Surgery Comment on above: Impress Associate - O ther Start: 03-23-2022 End: 03-24-[address] MONIKA LEHMAN Facility: Start: 03-22-2022 Office outpatient vi sit 15 minutes Rugen M Fallon Work Phone: [facility] 3 DO Work Phone: Start: 03-22-2022 ambulatory Daniel Ma Facility: Start: 03-10-2022 Telephone encounter I Fei merritt MD Work Phone: Colorectal Surgery Comment on above: Impress Associate - O ther Start: 03-08-2022 Orders Only I Fei Vera MD Work Phone: Colorectal Surgery Comment on above: 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, unspecified part (Primary Dx) Appointment Start: 03-03-2022 End: 03-03-2022 ambulatory MONIKA LEHMAN Facility:[facility] Start: 03-01-2022 Telephone encounter I Fei merritt MD Work Phone: Colorectal Surgery Comment on above: Patient Update Impress Associate - O ther Start: 02-28-2022 Telephone encounter I Fei merritt MD Work Phone: Colorectal Surgery Comment on above: Impress Associate - O ther Start: 02-26-2022 ambulatory Faye Richey RN NURSE WATERPROOFING MACHINE OPERATOR Comment on above: Medication Question Start: 02-24-2022 [...] intubation; Chronic renal impairment, stage 2 (mild) Impress Associate - O ther Returning Patient's Call No Show Start: 02-24-2022 Encounter for other preprocedural examination MONIKA LEHMAN [facility] Start: 02-24-2022 End: 02-24-2022 Preprocedural examination done Pac Main 2 Work Phone: Pre Anesthesia Start: 02-23-2022 End: 02-23-2022 ambulatory MONIKA JASONLILIAN LEHMAN Facility:[facility] Start: 01-12-2022 End: 01-12-2022 ambulatory Gareth VERA Facility:[facility] Start: 01-12-2022 End: 01-12-2022 Patient encounter procedure I Fei Vera MD Work Phone: Colorectal Surgery Comment on above: Benign neoplasm of r ectum (Primary Dx) Start: 01-04-2022 Orders Only I Fei Vera MD Work Phone: Colorectal Surgery Comment on above: 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 (Primary Dx) Start: 12-24-2021 Telephone encounter Taz Tejeda MD Work Phone: Gastroenterology Comment on above: Results Start: 12-06-2021 End: 12-06-2021 ambulatory TAZ TEJEDA Facility:[facility] Start: 12-06-2021 End: 12-06-2021 Subsequent hospital visit by physician Kenton Kapadia MD Work Phone: Gastroenterology Comment on above: Diarrhea, unspecifie d type [R19.7] Start: 11-29-2021 Telephone encounter Jessica Green RNstave grader Comment on above: Appointment Confirma tion (Pre-procedure instructions) Start: 11-17-2021 End: 11-17-2021 Emergency department patient visit Monika Lehman Facility:[facility] Start: 11-17-2021 End: 11-17-2021 Emergency department patient visit MD Monika Lehman Work Phone: [facility] Start: 11-03-2021 Telephone encounter Taz Tejeda MD Work Phone: Gastroenterology Comment on above: Orders (Egd/Colonosc opy under MAC) Start: 11-01-2021 End: 11-01-2021 ambulatory MONIKA LEHMAN Facility:[facility] Start: 10-29-2021 End: 10-29-2021 ambulatory TAZ TEJEDA Facility:[facility] Start: 10-28-2021 End: 10-28-2021 ambulatory Taz Tejeda MD Work Phone: Gastroenterology Comment on above: Diarrhea, unspecifie d type (Primary Dx); Abdominal pain, unspecified abdominal location; Nausea Start: 10-28-2021 End: 10-28-2021 Telemedicine consultation with patient Taz Tejeda MD Work Phone: [facility] Start: 10-18-2021 End: 10-18-[address] MONIKA LEHMAN Facility:[facility] Start: 10-07-2021 Rx Renewal Monika Lehman Work Phone: [facility] 250 DO Work Phone: Start: 09-13-2021 End: 09-14-[address] MONIKA LEHMAN Facility:[facility] Start: 07-15-2021 Chart Update Monika Lehman Work Phone: [facility] 3 DO Work Phone: Start: 07-15-2021 End: 07-15-2021 ambulatory Monika Lehman Facility:[facility] Start: 07-15-2021 End: 07-15-2021 Patient encounter procedure MD Monika Lehman Work Phone: [facility] [place] Start: 07-08-2021 AUDIT Mnoika Lehman Work Phone: [facility] 3 DO Work Phone: Start: 07-07-2021 End: 07-08-[address] MONIKA LEHMAN Facility:[facility] Start: 06-14-2021 Office outpatient vi sit 25 minutes Nick Acosta [facility] Vascular Surgery Start: 06-14-2021 End: 06-14-2021 ambulatory Nick Acosta [facility] Other Start: 06-14-2021 End: 06-14-2021 Patient encounter procedure MD Monika Lehman Work Phone: [facility] Vascular Start: 05-03-2021 Office outpatient vi sit 25 minutes Monika Lehman Work Phone: [facility] 250 DO Work Phone: Start: 12-15-2020 End: 12-15-2020 ambulatory Nickariana Sampsonwoody Other [facility] [employer] Other Start: 12-15-2020 Office outpatient vi sit 25 minutes Nick Aguilarlluviawoody [facility] Vascular Surgery Echocardiogram normal Monika [place] Work Phone: [facility] 250 DO Work Phone: Procedures Date Procedure Procedure Detail Performing Clinician Start: 03-26-2024 C. DIFFICILE PCR Monika Lehman MD Work Phone: Start: 10-25-2022 Colonoscopy flx dx w/collj spec when pfrmd Taz Tejeda MD Work Phone: Start: 10-25-2022 Colonoscopy Kenton Kapadia MD Work Phone: Start: 03-03-2022 Colonoscopy flx dx w/collj spec when pfrmd [facility] Provider Start: 03-03-2022 Colonoscopy Nurse Cors Work Phone: Start: 02-24-2022 Antibody screen MONIKA LEHMAN Comment on above: Order Comment: Specimen Type: BLOOD SPEC IMEN Ordering Facility: [facility] Address: [address] [place] [address] Performed By: #### T [id number] #### [facility] CLIA [id number] [place] Start: 12-06-2021 Esophagogastroduodenoscopy transoral diagnostic [...] Phone: Start: 08-14-2018 Echocardiography Appendectomy Monika Washington [place] Work Phone: Cholecystectomy Monika M Fallon Work Phone: Operation on ovary Monika M A lda Work Phone: Operation on uterus Juanen M Fallon Work Phone: Tonsillectomy and adenoidectomy Monika M Fallon Work Phone: Total colonoscopy Monika [place] Work Phone: Comment on above: Dr Olsen [facility]; Plan of Treatment Date Care Activity Detail Author Start: 10-25-2032 Screening for malignant neoplasm of colon [facility] Start: 10-26-2027 Screening for malignant neoplasm of colon Sigmoidoscopy [facility] Start: 02-24-2025 DIABETES SCREEN DIABETES SCREEN [facility] Start: 02-24-2025 Diabetes Screening Diabetes Screening [facility] Start: 01-13-2025 Screening for malignant neoplasm of breast Mammogram [facility] Comment on above: Postponed from 1989 (Patient Refus ed) Start: 12-18-2024 Pneumococcal Vaccine: 65+ Years (1 of 2 - PCV) Pneumococcal Vaccine: 65+ Years (1 of 2 - PCV) [facility] Comment on above: Postponed from 12/09/1956 (Patient Refus ed) Start: 10-29-2024 DIABETES SCREEN DIABETES SCREEN [facility] Start: 03-05-2024 End: 03-05-2025 Comprehensive metabolic 2000 panel - Serum or Plasma Comprehensive metabolic panel Lab Routine Localized edema Encounter for monitoring diuretic therapy Expected: 03/05/2024 (Approximate), Expires: 03/05/2025 [facility] Work Phone: Comment on above: Expected: 03/05/2024 (Approximate), Expi res: 03/05/2025 Start: 02-20-2024 End: 02-20-2024 Patient encounter procedure 02/20/2024 2:00 PM EST Office Visit [facility] [address] [place] [address] Monika Lehman MD [address] [place] [address] [facility] Start: 02-13-2024 Influenza vaccination Influenza Vaccine (#1) [facility] Comment on above: Postponed from 10/15/2023 (Patient Refus ed) Start: 01-17-2024 End: 01-17-2024 Patient encounter procedure [facility] Comment on above: Arrived Start: 12-27-2023 End: 12-27-2023 Patient encounter procedure 12/27/2023 1:00 PM EST Office Visit [facility] [address] [place] [address] Елена Mg, REGISTERED MIDWIFE [address] [place] [address] [facility] Start: 12-20-2023 End: 12-19-2024 25-hydroxyvitamin D3 [Mass/volume] in Serum or Plasma Vitamin D 25 hydroxy Lab Routine Vitamin D deficiency Expected: 12/20/2023 (Approximate), Expires: 12/19/2024 [facility] Comment on above: Expected: 12/20/2023 (Approximate), Expi res: 12/19/2024 Start: 12-20-2023 End: 12-19-2024 CBC panel - Blood by Automated count CBC Lab Routine Chronic kidney disease, stage 3b (HCC) ([facility]/HCC) Expected: 12/20/2023 (Approximate), Expires: 12/19/2024 [facility] Comment on above: Expected: 12/20/2023 (Approximate), Expi res: 12/19/2024 Start: 12-20-2023 End: 12-19-2024 Hemoglobin A1c/Hemoglobin.total in Blood Hemoglobin A1c Lab Routine Abnormal glucose tolerance test Expected: 12/20/2023 (Approximate), Expires: 12/19/2024 [facility] Comment on above: Expected: 12/20/2023 (Approximate), Expi res: 12/19/2024 Start: 12-20-2023 End: 12-19-2024 Lipid 1996 panel - Serum or Plasma Lipid panel Lab Routine Dyslipidemia (CMS/HCC) Expected: 12/20/2023 (Approximate), Expires: 12/19/2024 [facility] Comment on above: Expected: 12/20/2023 (Approximate), Expi res: 12/19/2024 Start: 12-20-2023 End: 12-19-2024 Thyrotropin [Units/volume] in Serum or Plasma TSH Lab Routine Hypothyroidism, unspecified (CMS/HCC) Expected: 12/20/2023 (Approximate), Expires: 12/19/2024 [facility] Work Phone: Comment on above: Expected: 12/20/2023 (Approximate), Expi res: 12/19/2024 Start: 12-15-2023 Influenza vaccination Influenza Vaccine (#1) [facility] Comment on above: Postponed from 10/14/2022 (Other Patient Reasons) Start: 12-15-2023 Pneumococcal Vaccine: 65+ Years (1 - PCV) Pneumococcal Vaccine: 65+ Years (1 - PCV) [facility] Comment on above: Postponed from 12/09/1955 (Other Patient Reasons) Start: 12-15-2023 Screening for malignant neoplasm of breast Mammogram [facility] Comment on above: Postponed from 1989 (Other Patient Reasons) Start: 10-26-2023 Colonoscopy Colonoscopy [facility] Start: 10-26-2023 Colorectal Cancer Screening Colorectal Cancer Screening [facility] Start: 10-15-2023 Influenza vaccination Influenza Vaccine (Season Ended) [facility] Start: 07-21-2023 End: 07-20-2024 Basic metabolic 2000 panel - Serum or Plasma Basic Metabolic Panel Lab Routine Essential hypertension Expected: 07/21/2023 (Approximate), Expires: 07/20/2024 [facility] Work Phone: Comment on above: Expected: 07/21/2023 (Approximate), Expi res: 07/20/2024 Start: 06-26-2023 End: 06-26-2023 Patient encounter procedure 06/26/2023 11:00 AM EDT Office Visit [facility] [address] [place] [address] Monika Lehman MD [address] [facility] 110 [place] [address] [facility] Start: 06-15-2023 Medicare Annual Wellness (AWV) Medicare Annual Wellness (AWV) [facility] Start: 05-08-2023 FUV, Provider: Elinor Raman, Status: Pen, Time: 1:00 PM FUV, Provider: Elinor Raman, Status: Pen, Time: 1:00 PM [facility] 250 DO Work Phone: Start: 05-08-2023 End: 05-08-2023 Patient encounter procedure 05/08/2023 1:00 PM EDT Office Visit [facility] [address] [facility] 250 [place] [address] Elinor Raman MD [address] [facility] 300 [place] [address] [facility] Start: 04-24-2023 End: 04-24-2023 Patient encounter procedure 04/24/2023 1:00 PM EDT Office Visit [facility] [address] [facility] 110 [place] [address] Monika Lehman MD 112 [facility] 110 [place] [address] [facility] Start: 04-11-2023 End: 04-11-2023 Patient encounter procedure 04/11/2023 4:45 PM EST Office Visit [facility] [address] [place] [address] Aman Quiroz MD [address] [facility] [address] [place] [address] [facility] Start: 03-03-2023 Colonoscopy COLONOSCOPY [facility] Start: 03-03-2023 COLORECTAL CANCER SCREENING COLORECTAL CANCER SCREENING [facility] Start: 02-24-2023 HEMOGLOBIN/HEMATOCRIT HEMOGLOBIN/HEMATOCRIT [facility] Start: 02-24-2023 SERUM CREATININE SERUM CREATININE [facility] Start: 01-20-2023 End: 01-21-2024 Basic metabolic 2000 panel - Serum or Plasma Basic Metabolic Panel Lab Routine Essential hypertension Expected: 01/20/2023 (Approximate), Expires: 01/21/2024 [facility] Work Phone: Comment on above: Expected: 01/20/2023 (Approximate), Expi res: 01/21/2024 Start: 01-20-2023 FUV, Provider: Daniel Ma, Status: Pen, Time: 11:20 AM FUV, Provider: Daniel Ma, Status: Román, Time: 11:[address] Work Phone: Start: 01-20-2023 End: 01-20-2023 Patient encounter procedure 01/20/2023 11:20 AM EST Office Visit [facility] [id number] [place] [address] [address] [place] [phone] Daniel Ma MD [address] [place] [address] [address] [place], [place] [id number] [facility] Start: 12-06-2022 Colonoscopy COLONOSCOPY [facility] Start: 12-06-2022 COLORECTAL CANCER SCREENING COLORECTAL CANCER SCREENING [facility] Start: 11-22-2022 End: 11-23-2023 Comprehensive metabolic 2000 panel - Serum or Plasma Comprehensive metabolic panel Lab Routine Essential hypertension Expected: 11/22/2022 (Approximate), Expires: 11/23/2023 [facility] Work Phone: Comment on above: Expected: 11/22/2022 (Approximate), Expi res: 11/23/2023 Start: 11-22-2022 End: 11-23-2023 Lipid 1996 panel - Serum or Plasma Lipid panel Lab Routine Essential hypertension Expected: 11/22/2022 (Approximate), Expires: 11/23/2023 [facility] Work Phone: Comment on above: Expected: 11/22/2022 (Approximate), Expi res: 11/23/2023 Start: 11-21-2022 End: 11-21-2024 NM Heart Perfusion W stress and W radionuclide IV Nuclear Stress Test Cardiac Nuclear Medicine Routine Essential hypertension 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) Other ill-defined heart diseases Expected: 11/21/2022 (Approximate), Expires: 11/21/2024 [facility] Work Phone: Comment on above: Expected: 11/21/2022 (Approximate), Expi res: 11/21/2024 Start: 11-21-2022 End: 11-21-2024 US Heart Transthoracic Transthoracic Echo (TTE) Complete Echocardiography Routine Essential hypertension 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) PVC (premature ventricular contraction) Expected: 11/21/2022 (Approximate), Expires: 11/21/2024 [facility] Work Phone: Comment on above: Expected: 11/21/2022 (Approximate), Expi res: 11/21/2024 Start: 10-29-2022 HEMOGLOBIN/HEMATOCRIT HEMOGLOBIN/HEMATOCRIT [facility] Start: 10-29-2022 SERUM CREATININE SERUM CREATININE [facility] Start: 10-14-2022 COVID-19 Vaccine ( season) COVID-19 Vaccine ( season) [facility] Start: 10-14-2022 Influenza vaccination [facility] Start: 09-20-2022 FUV, Provider: Daniel Ma, Status: Pen, Time: 12:50 PM FUV, Provider: Daniel Ma, Status: Pen, Time: 12:50 PM [facility] 3 DO Work Phone: Start: 05-04-2022 End: 11-04-2022 COLONOSCOPY DIAGNOSTIC COLONOSCOPY DIAGNOSTIC Endoscopy Routine Diarrhea, unspecified type Expected: 05/04/2022, Expires: 11/04/2022 [facility] Work Phone: Comment on above: Expected: 05/04/2022, Expires: Start: 05-04-2022 End: 11-04-2022 EGD DIAGNOSTIC EGD DIAGNOSTIC Endoscopy Routine Abdominal pain, unspecified abdominal location Expected: 05/04/2022, Expires: 11/04/2022 [facility] Work Phone: Comment on above: Expected: 05/04/2022, Expires: 3 Start: 04-25-2022 FUV, Provider: Seema Spencer, Status: Pen, Time: 10:30 AM FUV, Provider: Seema Spencer, Status: Pen, Time: 10:30 AM [facility] 250 DO Work Phone: Start: 04-19-2022 FUV, Provider: Deshaun Paniagua, Status: Pen, Time: 10:30 AM FUV, Provider: Deshaun Paniagua, Status: Pen, Time: 10:30 AM [facility] 250 DO Work Phone: Start: 04-03-2022 DIABETES SCREEN DIABETES SCREEN [facility] Start: 02-13-2022 ADVANCE DIRECTIVE DISCUSSION ADVANCE DIRECTIVE DISCUSSION [facility] Start: 01-18-2022 FUV, Provider: Daniel Ma, Status: Pen, Time: 1:00 PM FUV, Provider: Daniel Ma, Status: Pen, Time: 1:00 PM [facility] 250 DO Work Phone: Start: 01-04-2022 End: 03-06-2022 Carcinoembryonic Ag [Mass/volume] in Serum or Plasma CEA BLD Lab Routine Neoplasm of uncertain behavior of colon Expected: 01/04/2022, Expires: 03/06/2022 [facility] Work Phone: Comment on above: Expected: 01/04/2022, Expires: 3 Start: 10-28-2021 End: 12-28-2021 CBC panel - Blood by Automated count CBC Lab Routine Abdominal pain, unspecified abdominal location Diarrhea, unspecified type Expected: 10/28/2021, Expires: 12/28/2021 [facility] Work Phone: Comment on above: Expected: 10/28/2021, Expires: 2 Start: 10-28-2021 End: 12-28-2021 CELIAC SCREEN WITH REFLEX CELIAC SCREEN WITH REFLEX Lab Routine Diarrhea, unspecified type Expected: 10/28/2021, Expires: 12/28/2021 [facility] Work Phone: Comment on above: Expected: 10/28/2021, Expires: 2 Start: 10-28-2021 End: 12-28-2021 Comprehensive metabolic 2000 panel - Serum or Plasma COMP METABOLIC PANEL Lab Routine Abdominal pain, unspecified abdominal location Diarrhea, unspecified type Expected: 10/28/2021, Expires: 12/28/2021 [facility] Work Phone: Comment on above: Expected: 10/28/2021, Expires: 2 Start: 10-28-2021 End: 12-28-2021 Thyrotropin [Units/volume] in Serum or Plasma TSH BLD Lab Routine Abdominal pain, unspecified abdominal location Diarrhea, unspecified type Expected: 10/28/2021, Expires: 12/28/2021 [facility] Work Phone: Comment on above: Expected: 10/28/2021, Expires: 2 Start: 10-14-2021 Influenza vaccination INFLUENZA (#1) [facility] Start: 07-20-2021 FUV, Provider: Daniel Ma, Status: Pen, Time: 1:40 PM FUV, Provider: Daniel Ma, Status: Pen, Time: 1:40 PM [facility] 3 DO Work Phone: Start: 05-15-2021 COVID-19 VACCINE (4 - Booster for Pfizer series) COVID-19 VACCINE (4 - Booster for Pfizer series) [facility] Start: 03-11-2021 COVID-19 VACCINE (4 - Booster for Pfizer series) COVID-19 VACCINE (4 - Booster for Pfizer series) [facility] Start: 03-11-2021 COVID-19 VACCINE (4 - Pfizer series) COVID-19 VACCINE (4 - Pfizer series) [facility] Start: 02-13-2021 ADVANCE DIRECTIVE DISCUSSION ADVANCE DIRECTIVE DISCUSSION [facility] Start: 02-13-2021 DEPRESSION ASSESSMENT DEPRESSION ASSESSMENT [facility] Start: 2014 BONE DENSITY BONE DENSITY [facility] Start: 2014 Bone Density Screening Bone Density Screening [facility] Start: 2014 Pneumococcal Vaccine: 65+ (1 - PCV) Pneumococcal Vaccine: 65+ (1 - PCV) [facility] Start: 2014 PNEUMOCOCCAL: 65+ (1 - PCV) PNEUMOCOCCAL: 65+ (1 - PCV) [facility] Start: 2009 Hepatitis B Vaccines (1 of 3 - Risk 3-dose series) Hepatitis B Vaccines (1 of 3 - Risk 3-dose series) [facility] Start: 2009 RSV patients and/or patients aged 60+ years (1 - 1-dose 60+ series) RSV patients and/or patients aged 60+ years (1 - 1-dose 60+ series) [facility] Start: 12-09-1999 SHINGRIX VACCINE (1 of 2) SHINGRIX VACCINE (1 of 2) [facility] Start: 12-09-1999 Zoster Vaccines (1 of 2) Zoster Vaccines (1 of 2) [facility] Start: 1994 COLOGUARD (FIT-DNA) COLOGUARD (FIT-DNA) [facility] Start: 1994 Colonoscopy COLONOSCOPY [facility] Start: 1994 COLORECTAL CANCER SCREENING COLORECTAL CANCER SCREENING [facility] Start: [address] COLONOGRAPHY [facility] Start: 1994 FECAL OCCULT BLOOD FECAL OCCULT BLOOD [facility] Start: 1994 Lipid 1996 panel - Serum or Plasma Lipid Screening [facility] Start: 1994 LIPID SCREEN LIPID SCREEN [facility] Start: 1994 SIGMOIDOSCOPY SIGMOIDOSCOPY [facility] Start: 1989 Mammography [facility] Start: 1989 Screening for malignant neoplasm of breast Mammogram [facility] Start: 12-09-1971 DTaP/Tdap/Td Vaccines (1 - Tdap) DTaP/Tdap/Td Vaccines (1 - Tdap) [facility] Start: 1968 Hepatitis A Vaccines (1 of 2 - Risk 2-dose series) Hepatitis A Vaccines (1 of 2 - Risk 2-dose series) [facility] Start: 1968 Urine microalbumin profile [facility] Start: 12-09-1967 ANNUAL PCP TEAM CHRONIC DISEASE VISIT ANNUAL PCP TEAM CHRONIC DISEASE VISIT [facility] Start: 12-09-1967 BP CONTROLLED (<130/80) BP CONTROLLED (<130/80) [facility] Start: 12-09-1967 HEPATITIS C SCREENING HEPATITIS C SCREENING [facility] Start: 12-09-1967 Hepatitis C screening Hepatitis C Screening [facility] Start: 1961 Adult depression screening assessment DEPRESSION SCREENING [facility] Start: 12-09-1955 Pneumococcal Vaccine: 65+ Years (1 - PCV) Pneumococcal Vaccine: 65+ Years (1 - PCV) [facility] Start: 12-09-1955 Pneumococcal Vaccine: 65+ Years (1 of 2 - PCV) Pneumococcal Vaccine: 65+ Years (1 of 2 - PCV) [facility] Start: 1949 Lipid panel Lipid Panel [facility] Start: 1949 Screening for malignant neoplasm of colon [facility] Start: 1949 Screening for osteoporosis Bone Density Scan [facility] Start: 1949 Thyroid stimulating hormone measurement TSH Level [facility] Start: 1949 Yearly Adult Physical Yearly Adult Physical [facility] Calprotectin [Mass/m ass] in Stool CALPROTECTIN,FECAL Lab Routine Abdominal pain, unspecified abdominal location Diarrhea, unspecified type Ordered: 10/28/2021 [facility] Work Phone: Comment on above: Ordered: 10/28/2021 Calprotectin [Mass/m ass] in Stool CALPROTECTIN,FECAL Lab Routine Adenomatous rectal polyp Ordered: 04/19/2022 [facility] Work Phone: Comment on above: Ordered: 04/19/2022 Clostridioides diffi cile toxin genes [Presence] in Stool by VERONICA with probe detection C. DIFFICILE PCR Lab Routine Abdominal pain, unspecified abdominal location Diarrhea, unspecified type Ordered: 10/28/2021 [facility] Work Phone: Comment on above: Ordered: 10/28/2021 End: 10-28-2022 COLONOSCOPY DIAGNOSTIC COLONOSCOPY DIAGNOSTIC Endoscopy Routine Abdominal pain, unspecified abdominal location Diarrhea, unspecified type 1 Occurrences starting 10/28/2021 until 10/28/2022 [facility] Work Phone: Comment on above: 1 Occurrences starting 10/28/2021 until 10/28/2022 End: 04-10-2023 COLONOSCOPY DIAGNOSTIC COLONOSCOPY DIAGNOSTIC Endoscopy Routine Adenomatous rectal polyp 1 Occurrences starting 04/10/2022 until 04/10/2023 [facility] Work Phone: Comment on above: 1 Occurrences starting 04/10/2022 until 04/10/2023 End: 05-19-2023 Ct abdomen & pelvis w/contrast material CT ENTEROGRAPHY W IVCON Radiology Routine Adverse effect of treatment, initial encounter Abdominal pain, unspecified abdominal location 1 Occurrences starting 04/19/2022 until 05/19/2023 [facility] Work Phone: Comment on above: 1 Occurrences starting 04/19/2022 until 05/19/2023 End: 10-28-2022 EGD DIAGNOSTIC EGD DIAGNOSTIC Endoscopy Routine Abdominal pain, unspecified abdominal location Diarrhea, unspecified type 1 Occurrences starting 10/28/2021 until 10/28/2022 [facility] Work Phone: Comment on above: 1 Occurrences starting 10/28/2021 until 10/28/2022 Patient Education Hypokalemia Ab dominal Pain, Adult ED [facility] Work Phone: Patient referral [facility] Work Phone: SURGICAL PATHOLOGY [facility] Work Phone: Comment on above: Release Upon Ordering for 1 Occurrences starting 12/06/2021, 1 completed SURGICAL PATHOLOGY [facility] Work Phone: Comment on above: Release Upon Ordering for 1 Occurrences starting 10/25/2022, 1 completed [facility] Immunizations Immunization Date Immunization Notes Care Provider [facility] 01-17-2024 Influenza, High-dose Seasonal, Quadrivalent, Preservative Free Елена Mg REGISTERED MIDWIFE Work Phone: [facility] 03-23-2022 Fluzone High-Dose Quadrivalent 0.7 ML Intramuscular Suspension Prefilled Syringe Rugen M [place] Work Phone: [facility] 250 DO Work Phone: 03-23-2022 influenza virus vaccine, unspecified formulation Elinor Raman MD Work Phone: [facility] Work Phone: 01-14-2021 Pfizer-BioNTech COVID-19 Vacc 30 MCG/0.3ML Intramuscular Suspension Rugen M [place] Work Phone: [facility] 250 DO Work Phone: 12-04-2020 influenza, injectabl e, quadrivalent, preservative free Rugen M [place] Work Phone: [facility] 250 DO Work Phone: 12-04-2020 influenza virus vaccine, unspecified formulation Kenton Kapadia MD Work Phone: [facility] 04-15-2020 Pfizer-BioNTech COVID-19 Vacc 30 MCG/0.3ML Intramuscular Suspension Rugen M [place] Work Phone: [facility] 250 DO Work Phone: 03-24-2020 Pfizer-BioNTech COVID-19 Vacc 30 MCG/0.3ML Intramuscular Suspension Rugen M [place] Work Phone: [facility] 250 DO Work Phone: 01-16-2020 Fluad Quadrivalent 0 .5 ML Intramuscular Prefilled Syringe Rugen M [place] Work Phone: [facility] 250 DO Work Phone: 01-16-2020 influenza, injectabl e, quadrivalent, preservative free Aman Quiroz MD Work Phone: [facility] 11-14-2019 influenza virus vaccine, unspecified formulation Rugen M [place] Work Phone: [facility] 250 DO Work Phone: 11-14-2019 influenza, seasonal, injectable Elinor Raman MD Work Phone: [facility] Work Phone: 12-21-2018 Influenza, injectabl e, Madin Jeanette Canine Kidney, quadrivalent with preservative Aman Quiroz MD Work Phone: [facility] 12-21-2018 influenza, injectabl e, madin jeanette canine kidney, preservative free Rugen M [place] Work Phone: [facility] 250 DO Work Phone: 11-13-2018 influenza virus vaccine, unspecified formulation Rugen M [place] Work Phone: [place] [address] DO Work Phone: Payers Date Payer Category Payer Self-pay [id number] 2016 [facility] [id number] 2016 Unknown 2014 Medicare [id number] 1959 Medicare [id number] 1959 Unknown [id number] 1949 Unknown [id number] 2.16.840.1.694471.3.579.2 .593 1949 Unknown [id number] 2.16.840.1.958324.3.579.2 .593 1949 Unknown [id number] 2.16.840.1.892471.3.579.2 .593 1949 Unknown [id number] 2.16.840.1.193095.3.579.2 .593 1949 Unknown [id number] 2.16.840.1.242411.3.579.2 .356 1949 Unknown [id number] 2.16.840.1.142171.3.579.2 .356 1949 Unknown [id number] 2.16.840.1.671701.3.579.2 .356 1949 Unknown [id number] 2.16.840.1.737464.3.579.2 .356 1949 Unknown [id number] 2.16.840.1.475912.3.579.2 .1244 1949 Unknown [id number] 2.16.840.1.944757.3.579.2 .1244 1949 Unknown [id number] 2.16.840.1.704698.3.579.2 .1244 1949 Unknown [id number] 2.16.840.1.122178.3.579.2 .1259 1949 Unknown [id number] 2.16.840.1.482062.3.579.2 .1259 1949 Unknown [id number] 2.16.840.1.767883.3.579.2 .1259 1949 Unknown [id number] 2.16.840.1.421935.3.579.2 .1259 1949 Unknown [id number] 2.16.840.1.202888.3.579.2 .1259 1949 Unknown [id number] 2.16.840.1.146764.3.579.2 .1259 1949 Unknown [id number] 2.16.840.1.786036.3.579.2 .1259 1949 Unknown [id number] 2.16.840.1.444441.3.579.2 .1259 1949 Unknown [id number] 2.16.840.1.900619.3.579.2 .1259 1949 Unknown [id number] 2.16.840.1.276275.3.579.2 .1259 1949 Unknown [id number] 2.16.840.1.300376.3.579.2 .1259 Unknown [id number] 2.16.840.1.081253.3.579.2 .531 Unknown [id number] 2.16.840.1.922068.3.579.2 .531 Unknown [id number] 2.16.840.1.285879.3.579.2 .531 Social History Date Type Detail Facility Start: 02-24-2022 End: 09-19-2022 Caffeine use Caffeine use [facility] Other Comment on above: 1/2 CAN OF POP DAILY 2-3 CUPS OF HOT CHOCOLATE DAILY; Start: 1950 Sex Assigned At Female [facility] Start: 02-24-2022 End: 09-19-2022 [facility]igned At [facility] Start: 1950 Sex Assigned At Not on file [facility] Start: 10-18-2021 End: 07-21-2023 Exposure to SARS-CoV-2 (event) Not sure [facility] Start: 11-17-2021 Tobacco smoking stat us NHIS Never smoked tobacco (finding) [facility] Start: 12-06-2021 End: 01-17-2024 Tobacco smoking status NHIS Ex-smoker [facility] End: 03-20-2012 History of tobacco use Current smoker [facility] End: 03-20-2012 History of tobacco use Cigarette Smoker [facility] Start: 12-06-2021 End: 01-17-2024 Tobacco use and exposure Smokeless tobacco non-user [facility] Start: 12-06-2021 End: 03-21-2024 Alcohol intake Lifetime non-drinker (finding) [facility] National Score (1-100), lower number is lower risk 73 [facility] Within the last year , have [...] for allergies. ergocalciferol (Vitamin D2) 1.25 MG (02750 UT) capsule Take 1 capsule (1.25 mg) [...] follow-ups on file. documented in this encounter [facility] 03-05-2024 History of Present illness Narrative Images [...] for allergies. ergocalciferol (Vitamin D2) 1.25 MG (55380 UT) capsule Take 1 capsule (1.25 mg) [...] CT ANGIOGRAM CHEST 07/10/2017 CT ANGIOGRAM CHEST [facility] ESOPHAGOSCOPY / EGD 12/06/2021 and [...] follow-ups on file. documented in this encounter [facility] 02-20-2024 History of Present illness Narrative Associated [...] for allergies. ergocalciferol (Vitamin D2) 1.25 MG (81476 UT) capsule Take 1 capsule (1.25 mg) [...] weeks (around 03/05/2024). documented in this encounter [facility] 01-17-2024 History of Present illness Narrative Images [...] for allergies. ergocalciferol (Vitamin D2) 1.25 MG (52129 UT) capsule Take 1 capsule (1.25 mg) [...] for allergies. ergocalciferol (Vitamin D2) 1.25 MG (92883 UT) capsule Take 1 capsule (1.25 mg) [...] Yes Cognitive Screening Three Word Registration: Banana, [place], Chair Clock Drawing: Normal Clock - 2 Three Word Recall: 1/3 words correct - 1 Pain Assessment Pain Score: 5 - Moderate pain Advance Care Planning Do you have a living will?: No Do you have a medical power of claim attorney?: No Objective : BP 122/80 Pulse [...] today. - Influenza, high-dose seasonal, quadrivalent, PF (EXI905) (Fluzone High Dose Quad North 0.7mL dose) 3. Neurogenic pain Gabapentin continues. She is stable at this time. 4. Central vestibular vertigo Stable. 5. White matter disease Stable. 6. Vascular dementia without behavioral disturbance, psychotic disturbance, mood disturbance, or anxiety, unspecified dementia severity (CMS/HCC) Clock test and 3 word recall completed today. See results. 7. Cerebrovascular accident (CVA) due to thrombosis of precerebral artery (CMS/HCC) Stable. 8. Chronic pain syndrome Gabapentin and [...] 29 U/L 11 12 [facility] EGFR-NON AF GABONESE 43 Low 18. B12 deficiency folic acid [...] LDL-C. Rico TAPIA et al. ALEXUS. 2013;310(19): 7919-8779 (http://education.Socialeyes App.com/faq/SYP827) CHOL/HDLC RATIO <5.0 (calc) 3.1 2.8 NON HDL CHOLESTEROL <130 mg/dL (calc) 132 High 121 C 24. BPPV (benign paroxysmal positional vertigo), left Stable. 25. Anxiety and depression (CMS/HCC) ALPRAZolam (Xanax) 1 MG tablet. Anxiety is [...] Encounter Procedures Influenza, high-dose seasonal, quadrivalent, PF (WCX341) (Fluzone High Dose Quad North 0.7mL dose) Electronically signed by Елена Mg NP on January 17, 2024 documented in this encounter [facility] 01-17-2024 Instructions Елена Mg NP - 01/17/2024 2:30 PM EST MAWV completed today. New orders for prednisone and tizanidine given today. documented in this encounter [facility] 01-13-2024 Telephone encounter Note Requested Prescriptions Signed Prescriptions Disp Refills ergocalciferol (Vitamin D2) 1.25 MG (52270 UT) capsule 4 capsule 11 Sig: Take 1 capsule (1.25 mg) by mouth 1 (one) time per week Authorizing Provider: ЕЛЕНА MG [facility] [facility] Miscellaneous Notes Requested Prescriptions Signed Prescriptions Disp Refills ergocalciferol (Vitamin D2) 1.25 MG (66659 UT) capsule 4 capsule 11 Sig: Take 1 capsule (1.25 mg) by mouth 1 (one) time per week Authorizing Provider: ЕЛЕНА MG documented in this encounter [facility] 12-20-2023 History of Present illness Narrative Images [...] 29 U/L 11 12 TBH EGFR-NON AF GABONESE 43 Low 2. Adjustment disorder with anxiety [...] A1c; Future - Hemoglobin A1c 11. Dyslipidemia ([facility]) - Lipid panel; Future - Lipid panel 12. Excessive cerumen in ear canal, left - carbamide peroxide (Debrox) 6.5 % otic solution; Administer 4 drops into affected ear(s) in the morning and 4 drops before bedtime. Do all this for 4 days. Dispense: 15 mL; Refill: 0 No follow-ups on file. documented in this encounter [facility] 12-20-2023 Instructions Елена Mg NP - 12/20/2023 1:00 PM EST Med refills Labs ordered Debrox drops, follow up for ear flush documented in this encounter [facility] 07-21-2023 History of Present illness Narrative Dianelys Womack 72 y.o. 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 [facility] Patient: Dianelys Womack [address], [address] , Sex: 1950, Female [place] [address] Height: 160 cm Ref Phys: Fallon Quiroz [...] Doub=doublet; Fasc=fasciculation; FFE=full for effort; Fib=fibrillation; Myokym=myokymia; [place]=myotonic potential; N,0=normal; NR=no response; Polyph=polyphasia; Pos=positive [sharp] wave; RFU=rapidly firing units; Serr=serrated potential (2<phases<5); W&W=waxing and waning pattern INTERPRETATION: This study reveals ENMG evidence of a chronic, neuropathic, primarily axonal, sensory > motor, process affecting all lower extremity nerves tested. Needle examination demonstrates a alxrvz-mr-gwunthkg gradient that is most suggestive of peripheral [...] the present study. Aman Quiroz M.D. Diplomate, [place] [employer] and Neu[employer] (neurology, epilepsy, sleep medicine) Diplomate, [place] Board of Clinical Neurophysiology Diplomate, [place] Board of Preventive Medicine (clinical informatics) . documented in this encounter [facility] 11-22-2022 Evaluation + Plan note Associated Problem(s): Former smoker Encouraged patient to continue to abstain from cigarettes. [facility] Work Phone: 11-22-2022 Miscellaneous Notes [...] the office environment. documented in this encounter [facility] Work Phone: 11-22-2022 Evaluation + Plan note Associated Problem(s): Class 1 obesity with body mass index (BMI) of 32.0 to 32.9 in adult Her BMI puts her in the overweight category, she remains fairly active, actually her weight is not too bad for her age, I reinforced the need for heart healthy lifestyle. [facility] Work Phone: 11-22-2022 Evaluation + [...] than 2 Follow-up to discuss test results. [facility] Work Phone: 11-22-2022 Evaluation + Plan [...] of blood pressures outside the office environment. [facility] Work Phone: 11-21-2022 History of Present [...] which are followed by vascular surgery in [place]. She says that if she does not [...] following reasons: The patient has a prior RI or stroke diagnosis Assessment/Plan: Essential hypertension Patient [...] Elinor Raman MD documented in this encounter [facility] Work Phone: 11-21-2022 Instructions Ioana [...] of your visit. documented in this encounter [facility] Work Phone: 10-25-2022 Nurse Note [...] In Department: GASTROENTEROLOGY documented in this encounter [facility] 10-18-2022 Miscellaneous Notes Attempted to reach the patient at the contact number that they provided [phone] (home) . 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 Orders faxed successfully to [phone] Keiko Hernandez RN documented in this encounter [facility] 04-20-2022 Note HNO ID: [id number] Author: Wanda Rosado APRN.ALEX Service: ? Author [...] visit. Either the patient or their legal merchandising representative has been informed of the risks and benefits of -- and alternatives to -- treatment through a remote evaluation and consents to proceed with the evaluation remotely. Pt is advised to follow up in person with any new/worsening symptoms Her colonoscopy is due 08/2022- sooner as clinically indicate Wanda Rosado APRN.RIGGER THIRD [facility] 04-20-2022 History of Present illness Narrative Called [...] visit. Either the patient or their legal merchandising representative has been informed of the risks and benefits of -- and alternatives to -- treatment through a remote evaluation and consents to proceed with the evaluation remotely. Pt is advised to follow up in person with any new/worsening symptoms Her colonoscopy is due 08/2022- sooner as clinically indicate Wanda Rosado APRN.CNP documented in this encounter [facility] 04-19-2022 Note HNO ID: [id number] Author: Debbi Hammond APRN.CNP Service: ? Author Type: Nurse Practitioner Type: Progress Notes Filed: 04/20/2022 6:26 PM Note Text: VIRTUAL VISIT FOLLOW UP Dianelys Womack [id number] 1950 has requested a video telemedicine for [...] Glucose 74 - (more content not included)... [facility] 04-19-2022 History of Present illness Narrative VIRTUAL VISIT FOLLOW UP Dianelys Womack [id number] 1950 has requested a video telemedicine for [...] Location: bilateral upper quadrants. Description: aching. Rates 05/23. Triggers: pressure to that area. Alleviating factors: [...] (03/03/2022)- Dr. Vera Operation: Endoscopic submucosal dissection (22595) and transanal endoscopic removal of the larger [...] On 03/03/2022 she underwent endoscopic submucosal dissection (80796) and transanal endoscopic removal of the larger rectal lesion with Dr. Vera- path detailed above. She followed up with ELIZABET [facility], s/p surgery and reported feeling improved overall [...] Levsin - Repeat fecal calpro (fax to #[phone], per pt preference) - CTe to further [...] with more than 50% of the total tdpn-zo-jwnr time of the visit in counseling / coordination of care. I have confirmed and edited as necessary, the PFSH and ROS obtained by others. Unrelated to E/M, telemedicine, or virtual visit service provided within previous 7 days. No E/M service or procedure anticipated within next 24 hours. Debbi Hammond APRN.CNP April 19, 2022 5:49 PM Answers submitted [...] with oil: Yes documented in this encounter [facility] 04-11-2022 Note HNO ID: [id number] Author: Wanda Rosado APRN.CNP Service: ? Author Type: Nurse Practitioner Type: Progress Notes Filed: 04/11/2022 2:58 PM Note Text: COLORECTAL SURGERY Post-Op virtual Visit Dianelys Womack returns for a post-operative visit after undergoing surgery, on 03/03/2022. SURGEON: Fei Vera M.D. DIRECTOR PROCESS ENGINEERING: DIRECTOR PROCESS ENGINEERING: Pierre Tinoco MD. No qualified resident available. He participated in all portions of the surgery documented. This includes patient positioning, abdominal access, exposure, dissection and abdominal closure. . No qualified resident was available and he was instrumental in huddling and assistance and closure of the procedure. SURGERY/PROCEDURE: Endoscopic submucosal dissection (29513) and transanal endoscopic removal of the larger [...] at the peripheral mucosal margin. ES/HH 03/08/2022 Current Outpatient Medications Medication Sig Dispense [...] See above Wanda (more content not included)... [facility] 03-28-2022 Miscellaneous Notes Called and spoke with [...] reach out to his office to discuss [phone] Dianelys Womack complains of watery diarrhea. documented in this encounter [facility] 03-10-2022 Miscellaneous Notes Called and spoke [...] again, patient appreciative of call, verbalized understanding [phone] Dianelys Womack asked to speak with Lety. [...] make the appt. documented in this encounter [facility] 03-09-2022 Miscellaneous Notes I called patient and left message. An order for vascular surgery consult was placed. 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 documented in this encounter [facility] 03-03-2022 Note HNO ID: [id number] Author: Rohini Stephenson APRN.CRNA Service: ? Author Type: Nurse Machine Programmer Type: Anesthesia Procedure Notes Filed: 03/03/2022 3:31 PM Note Text: ANESTHESIOLOGY PROCEDURE NOTE Airway General Information Procedure Start Time/Medication Administration: 03/03/2022 12:43 PM Patient location during procedure: OR Timeout Performed Pre-procedure: timeout performed Consent Obtained: Yes Patient identity confirmed: arm band, care outreach team member and patient Staffing Anesthesiologist: Lakeshia Delacruz MD, [...] March 03, 2022 TIME: 1:16 PM CSN: [id number] [facility] 03-03-2022 Note HNO ID: [id number] Author: Rohini Stephenson APRN.CRNA Service: ? Author Type: Nurse Machine Programmer Type: Anesthesia Procedure Notes Filed: 03/03/2022 1:11 [...] March 03, 2022 TIME: 1:11 PM CSN: [id number] [facility] 03-02-2022 Miscellaneous Notes Called and spoke with patient Advised that she has a listed allergy to flagyl, so I did not send that to her pharmacy Patient verbalized understanding Dianelys Womack asked why she didn't get the flagyl and just the neomycin? documented in this encounter [facility] 03-01-2022 Miscellaneous Notes Dianelys Womack did not receive any information by mail. As discussed, please fax to daughterЕлена [phone] documented in this encounter [facility] 02-28-2022 Miscellaneous Notes Called and spoke with patient She would like pt ed info faxed to her daughter's fax number She also wanted to review meds prior to surgery - reviewed what PACC advised as far as medication stopping and/or taking Patient appreciative of call She was also interested in possibly hooking up with cardiovascular provider here at [facility] for AAA She will call me if interested deciding to proceed with care with CV at [facility] - I am happy to help coordinate [phone] Dianelys Womack has questions about meds she can and can't take prior to surgery. K-klore Tramadol probotic documented in this encounter [facility] 02-26-2022 Miscellaneous Notes Patient calling she has colorectal surgery on 03/03/22. Patient was given instructions on taking medications prior to surgery. Patient stated they did not go over her tramadol or Klor-con and she is concerned. Unable to see specifics on these medications to help patient. Patient denies any new or worsening symptoms of which a provider is not aware:Yes. Conferenced to [facility] for Colorectal Surgery general surgeon provider for Dr. Fei Vera. GO TO THE EMERGENCY ROOM OR CALL 911 IF: * You develop any new symptoms * Your condition worsens * You are concerned or anxious about your condition for any other reason. If you have any questions, you can call Nurse media consultant back. documented in this encounter [facility] 02-24-2022 Miscellaneous Notes Called and spoke with patient She accidentally left and missed pt ed appt Reviewed pt ed over the phone Medications sent to pharmacy Will send pt ed info to her via mail Patient appreciativ eof call The Patient is returning the nurses call back. Please call patient at [phone] documented in this encounter [facility] 02-24-2022 Miscellaneous Notes Called patient. No answer, left message Advised that she is late for appt with nurse for preop education Advised that she come to appt if she is still here, if running late no problem If she left for the day, she should call the office so we can review pt ed over the phone documented in this encounter [facility] 02-24-2022 Instructions Karson Monte APRN.CNP - 02/24/2022 10:00 AM EST PATIENT PREOPERATIVE INSTRUCTIONS Gareth Vera MD has scheduled you for your procedure at this surgery center: [facility] [place] Scheduling Office: [phone] --[address] [place] [address]. Please read below carefully for your personalized [...] Procedures: - YOU MUST HAVE A RESPONSIBLE RENAL MEDICINE PHYSICIAN TAKE YOU HOME. A COUNSELOR AID OR MERCHANDISE EXAMINER CANNOT BE MADE A RESPONSIBLE RENAL MEDICINE PHYSICIAN. - We recommend that a responsible person [...] call the Monday before. Your surgeon s dispatcher relay will tell you what time to call the office. - If you have not reached the departmental dispatcher relay by 5 P.M., call [phone] after 5 P.M. the day before your surgery. Please be aware that emergency situations arise, which may delay or change your surgical time. If this happens, we will notify you as soon as possible and regret any inconvenience. If you already have an Advance Directive, please fax a copy to [phone] or email to for it to be [...] Karson Monte APRN.CNP documented in this encounter [facility] 02-24-2022 History and physical note HISTORY [...] or any previous visit (from the past 24102 hour(s)). Assessment History of anesthesia complications Patient [...] 35 kg/m^2 Non-male patient STOP-Bang Score: 3 [id number] Score: Hypertension history: Yes Stroke/TIA/thromboembolism history: Yes [id number] Score: 3 ARISCAT Score: Emergency procedure: No [...] AM PAGER/CONTACT #: documented in this encounter [facility] 01-12-2022 History and physical note COLORECTAL [...] closed Resting tone: NORMAL Squeeze tone: NORMAL Supervisor Roving present: Yes Assessment Medical Decision Making: Assessment [...] treatment plan: moderate documented in this encounter [facility] 12-24-2021 Miscellaneous Notes Spoke to Dianelys and reviewed colonoscopy and EGD results. She notes improvement in diarrhea since the colonoscopy. Also previously noted something bulging in and out of her rectum but not since the procedure. Will ask Dr. Vera if he can attempt endoscopic or transanal resection of the polyp Taz Tejeda MD documented in this encounter [facility] 12-06-2021 Note Q3 Patient Name: Dianelys [...] present medications. Procedure Code(s): --- Professional --- 67491, Esophagogastroduodenoscopy, flexible, transoral; diagnostic, including collection of specimen(s) by brushing or washing, when performed (separate procedure) Diagnosis Code(s): --- Professional --- R10.13, Epigastric pain CPT copyright 2020 [employer]. All rights reserved. Attending Participation: I personally performed the entire procedure. Scope In: 11:20:21 AM Scope Out: 11:22:14 AM MD Kenton Rowe MD 12/06/2021 11:23:55 AM This report has been signed electronically by Kenton Kapadia MD Number of Addenda: 0 Note Initiated On: 12/06/2021 10:57 AM [facility] 12-06-2021 Nurse Note AMBULATORY PATIENT EDUCATION NOTE [...] Anastasia Orlando RN documented in this encounter [facility] 11-29-2021 Miscellaneous Notes Attempted to reach the patient at the contact number that they provided [phone] (home). 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 merchandising representative they must have a responsible adult [...] -Number to call with questions or concerns [phone] Jessica Green RN BSN documented in this encounter [facility] 11-05-2021 Miscellaneous Notes JOAN- please let her know that new orders have been signed Taz Tejeda MD Orders pended in this encounter. Keiko Hernandez RN Please place new egd/colonoscopy w MAC orders to be scheduled at Q3 Please contact patient's daughter(Shy) to schedule. # [phone] documented in this encounter [facility] 10-28-2021 History of Present illness Narrative VIRTUAL VISIT NEW PATIENT NAME: Dianelys Womack [facility] NO: [id number] DATE: 10/28/2021 REASON FOR VISIT Dianelys Womack [...] which included preparing to see the patient, ejjt-yc-[id number] patient care, completing clinical documentation, obtaining and/or reviewing separately obtained history, counseling and educating the patient/family/caregiver, and ordering medications, tests, or procedures. Taz Tejeda MD documented in this encounter [facility] 09-14-2021 Note PROCEDURE: XR FOREAR M [...] by: NATALIE FRANCO Date: 2021-09-14 08:58 [facility] 09-14-2021 Note PROCEDURE: XR FOREAR [...] authenticated by: NATALIE FRANCO Date: 2021-09-14 08:58 [facility] 07-07-2021 Note CONSULTATION CONSULTATION DATE: [...] antibiotic use. 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 She does [...] back pain are twisting, pulling, standing, walking, security consultant hours and cold weather. She does use heat which decreases her pain. She has completed physical therapy at [facility] within the past year. She has visited [...] care and will call as needed. [facility] Signed and Approved by: MARANDA OSEGUERA . 07/21/2021 16:05:00 [facility] 06-14-2021 Evaluation note Encounter Date [...] She understands and agrees with that plan. [facility] Other 11-02-2021 Evaluation note* Encounter Date Diagnosis [...] the next visit we may consider intervention. [facility] Other Evaluation noteNo assessment information available [facility] Work Phone: Evaluation note* Diagnosis Diarrhea, unspecified type- Primary Abdominal pain, unspecified abdominal location Nausea Nausea alone [facility] Diagnosis Abdominal pain, unspecified abdominal location- Primary Diarrhea, unspecified type [facility] Diagnosis Diarrhea, unspecified type Abdominal pain, unspecified abdominal location Primary hypertension Unspecified essential hypertension Gastroesophageal reflux disease without esophagitis Esophageal reflux Chronic renal impairment, stage 2 (mild) History of anesthesia complications Unspecified adverse effect of anesthesia Cerebrovascular accident (CVA), unspecified mechanism (HCC) [facility] 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, intestines, and rectum [facility] Diagnosis Benign neoplasm of rectum- Primary Benign neoplasm of rectum and anal canal [facility] Diagnosis Pre-op evaluation- Primary Preoperative examination, [...] involving digestive system [facility] Diagnosis Thoracoabdominal aortic aneurysm (TAAA) without rupture, unspecified part- Primary [facility] Diagnosis Adenomatous rectal polyp- Primary Benign neoplasm of rectum and anal canal [facility] Diagnosis Abdominal pain, unspecified abdominal location- Primary Adenomatous rectal polyp Benign neoplasm of rectum and anal canal Adverse effect of treatment, initial encounter documented in this encounter [facility] note* Diagnosis Follow-up exam- Primary Unspecified follow-up examination [facility] Diagnosis Abdominal pain, unspecified abdominal location Diarrhea, unspecified type documented in this encounter [facility] note* Diagnosis Former smoker- Primary Personal history of tobacco use, presenting hazards to health Essential hypertension Unspecified essential hypertension 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) PVC (premature ventricular contraction) Other premature beats Other ill-defined heart diseases documented in this encounter [facility] Work Phone: Evaluation note* Diagnosis Essential hypertension- Primary Unspecified essential hypertension documented in this encounter [facility] Work Phone: Evaluation note* Diagnosis Numbness- Primary Disturbance of skin sensation [facility] Cervical paraspinal muscle spasm- Primary Spasm of muscle Polyneuropathy Unspecified hereditary and idiopathic peripheral neuropathy Central vestibular vertigo Vertigo of central origin Unsteadiness on feet documented [facility] encounter [facility]* Diagnosis Essential hypertension- Primary Unspecified essential hypertension documented in this encounter [facility] Work Phone: Evaluation note* Diagnosis Cervical [...] Pararenal abdominal aortic aneurysm (AAA) without rupture ([facility]/HCC) Hypokalemia Hypopotassemia Neurogenic pain- Primary Carotid stenosis, [...] ([facility]) Chronic kidney disease, stage 3b (HCC) ([facility]/HCC) Unspecified inflammatory spondylopathy, lumbar region ([facility]/HCC) Unspecified dementia, unspecified severity, without behavioral disturbance, psychotic disturbance, mood disturbance, and anxiety ([facility]/HCC) Hyperparathyroidism, unspecified ([facility]/HCC) Hyperparathyroidism, unspecified 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 Encounter for subsequent annual wellness visit (AWV) in Medicare patient Vitamin D deficiency Medicare annual wellness visit, subsequent- Primary Encounter for vaccination Neurogenic pain Central vestibular vertigo Vertigo of central origin White matter disease Vascular dementia without behavioral disturbance, psychotic disturbance, mood disturbance, or anxiety, unspecified dementia severity ([facility]/HCC) Cerebrovascular accident (CVA) due to thrombosis of precerebral artery ([facility]/HCC) Chronic pain syndrome Other emphysema ([facility]/HCC) Other emphysema Carotid stenosis, bilateral Occlusion and stenosis of carotid artery without mention of cerebral infarction Generalized atherosclerosis Generalized and unspecified atherosclerosis Benign essential hypertension ([facility]/HCC) Essential hypertension, benign Constipation, unspecified constipation type Nonalcoholic fatty liver disease without nonalcoholic steatohepatitis ([facility]) Irritable bowel syndrome with both constipation and diarrhea Gastroesophageal reflux disease without esophagitis Esophageal reflux Chronic kidney disease, stage 3a (HCC) (CMS/HCC) B12 deficiency Acquired hypothyroidism (CMS/HCC) Unspecified hypothyroidism Vitamin D deficiency Hyperparathyroidism, unspecified ([facility]/HCC) Hyperparathyroidism, unspecified Seasonal allergies Allergic rhinitis, cause unspecified Dyslipidemia ([facility]/HCC) Other and unspecified hyperlipidemia BPPV (benign paroxysmal positional vertigo), left Anxiety and depression ([facility]/HCC) Localized edema Edema Acute serous otitis media, recurrence not specified, unspecified laterality Muscle cramps documented in this encounter [facility] [...] radiculopathy, lumbar region documented in this encounter [facility]* Diagnosis Cervical paraspinal muscle [...] Other chronic bronchitis documented in this encounter [facility] [...] monitoring diuretic therapy documented in this encounter [facility] [...] mucopurulent chronic bronchitis (CMS/HCC) Other chronic bronchitis Acute non-recurrent maxillary sinusitis- [...] Hospitalization History see above Hospitalization History pgeisert Xobni Other History of Present illness Narrative* Ms. [...] for follow-up or sooner if need be. [facility] 250 DO Work Phone: History of Present illness NarrativeThe patient is being seen for a routine clinic follow-up of chronic kidney disease. This is classified as stage 3. Recently, the disease has been stable. There are no known disease complications. Thepatient is currently asymptomatic. No associated symptoms are reported.[facility] 3 DO Work Phone: History of Present illness NarrativeThe patient is being seen for a routine clinic follow-up of chronic kidney disease. This is classified as stage 3. Recently, the disease has been stable. There are no known disease complications. Thepatient is currently asymptomatic. No associated symptoms are reported.[facility] 3A [place] Work Phone: History of Present illness Narrative* Daniel Ma MD - 01/20/2023 11:20 AM EST Dianelys Womack 72 y.o. @@ [facility]/Room: [id number]/Room/bed info not found Subjective: The patient is [...] follow-up. 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 as scheduled [facility] [place] [facility] Phone: Reason for referral (narrative)* Outpatient Procedure (Routine) - Pending Review Specialty Diagnoses / Procedures Referred By Contkaro t Referred To Contact [facility] Diagnoses Abdominal pain, unspecified abdominal location Diarrhea, unspecified type Procedures COLONOSCOPY DIAGNOSTIC COLONOSCOPY FLX DX W/COLLJ SPEC WHEN PFRMD Taz Tejeda MD [address] [place] [address] [place] [phone] Referral ID Status Reason Start Date Expiration Date Visits Requested Visits Authorized [id number] Pending Review Auto-Generat ed Referral 10/28/2021 10/28/2022 1 1 * Outpatient Procedure (Routine) - Pending Review Specialty Diagnoses / Procedures Referred By Contac t Referred To [facility] Diagnoses Abdominal pain, unspecified abdominal location Diarrhea, unspecified type Procedures EGD DIAGNOSTIC ESOPHAGOGASTRODUODENOSC OPY TRANSORAL DIAGNOSTIC Taz Tejeda MD [address] [place] [address] [place] [phone] Referral ID Status Reason Start Date Expiration Date Visits Requested Visits Authorized [id number] Pending Review Auto-Generat ed Referral 10/28/2021 10/28/2022 1 1 [facility] for referral (narrative)* Outpatient Procedure (Routine) - Pending Review Specialty Diagnoses / Procedures Referred By Contac t Referred To [facility] Diagnoses Abdominal pain, unspecified abdominal location Procedures EGD DIAGNOSTIC ESOPHAGOGASTRODUODENOSC OPY TRANSORAL DIAGNOSTIC Taz Tejeda MD [address] [place] [address] [address] Referral ID Status Reason Start Date Expiration Date Visits Requested Visits Authorized [id number] Pending Review Auto-Generat ed Referral 05/04/2022 11/04/2022 1 1 * Outpatient Procedure (Routine) - Pending Review Specialty Diagnoses / Procedures Referred By Contac t Referred To [facility] Diagnoses Diarrhea, unspecified type Procedures COLONOSCOPY DIAGNOSTIC COLONOSCOPY FLX DX W/COLLJ SPEC WHEN Taz Heard MD [address] [place] [address] [address] Referral ID Status Reason Start Date Expiration Date Visits Requested Visits Authorized [id number] Pending Review Auto-Generat ed Referral 05/04/2022 11/04/2022 1 1 [facility] for referral (narrative)* Outpatient Procedure (Routine) - Closed Specialty Diagnoses / Procedures Referred By Contac t Referred To Contact [facility] Diagnoses Abdominal pain, unspecified abdominal location Procedures EGD DIAGNOSTIC ESOPHAGOGASTRODUODENOSC OPY TRANSORAL DIAGNOSTIC Taz Tejeda MD [address] [place] [address] [address] Referral ID Status Reason Start Date Expiration Date V isits Requested Visits Authorized [id number] Closed Auto-Generate d Referral 05/04/2022 11/04/2022 1 1 * Outpatient Procedure (Routine) - Closed Specialty Diagnoses / Procedures Referred By Contac t Referred To Contact [facility] Diagnoses Diarrhea, unspecified type Procedures COLONOSCOPY DIAGNOSTIC COLONOSCOPY FLX DX W/COLLJ SPEC WHEN Taz Heard MD [address] [place] [address] [address] Referral ID Status Reason Start Date Expiration Date V isits Requested Visits Authorized [id number] Closed Auto-Generate d Referral 05/04/2022 11/04/2022 1 1 [facility] for referral (narrative)* Outpatient Procedure (Routine) - Pending Review Specialty Diagnoses / Procedures Referred By Contac t Referred To Contact [facility] Diagnoses Adenomatous rectal polyp Procedures COLONOSCOPY DIAGNOSTIC COLONOSCOPY FLX DX W/COLLJ SPEC WHEN Taz Heard MD [address] [place] [address] [address] Referral ID Status Reason Start Date Expiration Date Visits Requested Visits Authorized [id number] Pending Review Auto-Generat ed Referral 04/10/2022 04/10/2023 1 1 [facility] for referral (narrative)* Outpatient Procedure (Routine) - Closed Specialty Diagnoses / Procedures Referred By Contac t Referred To Contact [facility] Diagnoses Abdominal pain, unspecified abdominal location Diarrhea, unspecified type Procedures COLONOSCOPY DIAGNOSTIC COLONOSCOPY FLX DX W/COLLJ SPEC WHEN Taz Heard MD [address] [place] [address] [address] Referral ID Status Reason Start Date Expiration Date V isits Requested Visits Authorized [id number] Closed Auto-Generate d Referral 10/28/2021 10/28/2022 1 1 [facility] for referral (narrative)* Consultation (Routine) - Authorized Specialty Diagnoses / Procedures Referred By Contac t Referred To Contact Cardiology Diagnoses Essential hypertension 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) Procedures Follow Up In Cardiology Elinor Raman MD [address] [address] Referral ID Status Reason Start Date Expiration Date V isits Requested Visits Authorized [id number] Authorized 11/21/2022 05/20/2023 1 1 * Cardiac Stress Testing (Routine) - Pending Review Specialty Diagnoses / Procedures Referred By Contac t Referred To Contact Radiology Diagnoses Essential hypertension 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) Other ill-defined heart diseases Procedures Nuclear Stress Test CHG MYOCARDIAL SPECT MULTIPLE STUDIES CHG MYOCARDIAL SPECT SINGLE STUDY AT REST OR STRESS Elinor Raman MD 254 [facility] [address] [place] [address] Referral ID Status Reason Start Date Expiration Date V isits Requested Visits Authorized [id number] Pending Review 11/21/2022 05/20/2023 5 5 * CV Imaging (Routine) - Pending Review Specialty Diagnoses / Procedures Referred By Contac t Referred To Contact Cardiology Diagnoses Essential hypertension 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) PVC (premature ventricular contraction) Procedures Transthoracic Echo (TTE) Complete UT ECHO TRANSTHORC R-T 2D W/WO M-MODE REC F-UP/LMTD UT DOP ECHOCARD COLOR FLOW VELOCITY MAPPING UT DOP ECHOCARD PULSE WAVE W/SPECTRAL F-UP/LMTD STD Elinor Raman MD 254 [facility] [address] [place] [address] Referral ID Status Reason Start Date Expiration Date Visits Requested Visits Authorized [id number] Pending Review Perform Procedure 11/21/2022 05/20/2023 1 1 [facility] Work Phone: Reason for visit Narrative* Outpatient Procedure (Routine) - Closed Specialty Diagnoses / Procedures Referred By Contac t Referred To Contact [facility] Diagnoses Abdominal pain, unspecified abdominal location Diarrhea, unspecified type Procedures COLONOSCOPY DIAGNOSTIC COLONOSCOPY FLX DX W/COLLJ SPEC WHEN PFRMD Taz Tejeda MD [address] [place] [address] [facility] [address] [place] [address] Referral ID Status Reason Start Date Expiration Date V isits Requested Visits Authorized [id number] Closed Auto-Generate d Referral 10/28/2021 10/28/2022 1 1 [facility] Summary Purpose Family History No Family [...] CT ABD & PELVIS W/CONTRAST Debbi Hammond, MATTRESS STUFFER.RIGGER THIRD [address] [place] [address] Ct Imaging Referral ID Status Reason Start Date Expiration Date Visits Requested Visits Authorized [id number] Pending Review Auto-Generat ed Referral 04/19/2022 05/19/2023 1 1 Specialty Diagnoses / Procedures Referred By Contac t Referred To Contact Vascular Surgery Diagnoses Thoracoabdominal aortic aneurysm (TAAA) without rupture, unspecified part Procedures CONSULT TO VASCULAR SURGERY OFFICE/OUTPATIENT [facility] 60-74 MINUTES Gareth Vera MD [address] [place] [address] Referral ID Status Reason Start Date Expiration Date Visits Requested Visits Authorized [id number] Pending Review PCP Requested Referral 03/08/2022 03/08/2023 1 1 Additional Source Comments INFORMATION SOURCE (unrecogn ized section and content) DATE CREATED AUTHOR 08/15/2018 [facility] DATE CREATED AUTHOR AUTHOR'S ORGANIZ ATION 11/18/2021 [facility] DATE CREATED AUTHOR AUTHOR'S ORGANIZ ATION 03/25/2022 [facility] DATE CREATED AUTHOR AUTHOR'S ORGANIZ ATION 09/21/2022 [facility] DATE CREATED AUTHOR AUTHOR'S ORGANIZ ATION 09/21/2022 [employer] DATE CREATED AUTHOR AUTHOR'S ORGANIZ ATION 10/29/2022 [facility] DATE CREATED AUTHOR AUTHOR'S ORGANIZ ATION 07/25/2023 [facility] DATE CREATED AUTHOR AUTHOR'S ORGANIZ ATION 03/14/2024 [facility] DATE CREATED AUTHOR AUTHOR'S ORGANIZ ATION 04/05/2024 [facility] EPIC Care Teams (unrecognized sec tion and content) Team Status: Inactive Member Role Status Dates Monika Lehman MD Primary Care Provider Active Nick Acosta MD Attending Provider Active Team Status: Active Member Role Status Dates Monika Lehman MD Primary Care Provider Active Team Status: Inactive Member Role Status Dates Monika Lehmna MD Primary Care Provider Active Daniel Ma MD Attending Provider Active Neon Installer Relationship Specialty Start Date End Date Monika Lehmany [address] [place] [address] PCP - General Family Practice 03/12/15 Aman Quiroz MD [address] [place] [address] Referring Neurology 11/20/19 Neon Installer Relationship Specialty Start Date End Date Monika Lehman [address] [place] [address] PCP - General Family Medicine 03/12/15 Aman Quiroz MD [address] [place] [address] Referring Neurology 11/20/19 Team Status: Inactive Member Role Status Dates Monika Lehman MD Primary Care Provider Active Chucho Saldaña MD Emergency Provider Active Neon Installer Relationship Specialty Start Date End Date Monika Lehman [address] [place] [address] PCP - General Family Medicine 03/12/15 Aman Quiroz MD [address] [place] [address] Referring Neurology 11/20/19 Neon Installer Relationship Specialty Start Date End Date Monika Lehman [address] [place] [address] PCP - General Family Medicine 03/12/15 Aman Quiroz MD [address] [place] [address] Referring Neurology 11/20/19 Neon Installer Relationship Specialty Start Date End Date Monika Lehmany [address] [place] [address] PCP - General Family Medicine 03/12/15 Aman Quiroz MD [address] [place] [address] Referring Neurology 11/20/19 Neon Installer Relationship Specialty Start Date End Date [place] t[place]am[place] [address] [place] [address] PCP - General Family Medicine 03/12/15 Aman Quiroz MD [address] [place] [address] Referring Neurology 11/20/19 Neon Installer Relationship Specialty Start Date End Date FallonMonika tapialilian [address] [place] [address] PCP - General Family Medicine 03/12/15 Aman Quiroz MD [address] [place] [address] Referring Neurology 11/20/19 Neon Installer Relationship Specialty Start Date End Date Monika Lehmanlilian [address] [place] [address] PCP - General Family Medicine 03/12/15 Aman Quiroz MD [address] [place] [address] Referring Neurology 11/20/19 Neon Installer Relationship Specialty Start Date End Date Monika Lehmanlilian [address] [place] [address] PCP - General Family Medicine 03/12/15 Aman Quiroz MD [address] [place] [address] Referring Neurology 11/20/19 Neon Installer Relationship Specialty Start Date End Date Monika Lehmany [address] [place] [address] PCP - General Family Medicine 03/12/15 Aman Quiroz MD [address] [place] [address] Referring Neurology 11/20/19 Neon Installer Relationship Specialty Start Date End Date Monika Lehman [address] [place] [address] PCP - General Family Medicine 03/12/15 Aman Quiroz MD [address] [place] [address] Referring Neurology 11/20/19 Neon Installer Relationship Specialty Start Date End Date Monika Lehmany [address] [facility] [address] [place] [address] PCP - General Family Medicine 03/12/15 Aman Quiroz MD [address] [place] [address] Referring Neurology 11/20/19 Neon Installer Relationship Specialty Start Date End Date Moniak Lehmany [address] [place] [address] PCP - General Family Medicine 03/12/15 Aman Quiroz MD [address] [place] [address] Referring Neurology 11/20/19 Neon Installer Relationship Specialty Start Date End Date Monika Lehmanalay [address] [place] [address] PCP - General Family Medicine 03/12/15 Aman Quiroz MD [address] [place] [address] Referring Neurology 11/20/19 Neon Installer Relationship Specialty Start Date End Date Monika Lehman Marin [address] [place] [address] PCP - General Family Medicine 03/12/15 Aman Quiroz MD [address] [place] [address] Referring Neurology 11/20/19 Neon Installer Relationship Specialty Start Date End Date Juan Lehmanpatricia Funes [address] [facility] [address] [place] [address] PCP - General Family Medicine 03/12/15 Aman Quiroz MD [address] [place] [address] Referring Neurology 11/20/19 Neon Installer Relationship Specialty Start Date End Date Monika Lehmanlilian [address] [facility] [address] [place] [address] PCP - General Family Medicine 03/12/15 Aman Quiroz MD [address] [place] [address] Referring Neurology 11/20/19 Neon Installer Relationship Specialty Start Date End Date Monika Lehman MD [address] [place] [address] PCP - General Family Medicine 03/12/15 Aman Quiroz MD [address] [place] [address] Referring Neurology 11/20/19 Neon Installer Relationship Specialty Start Date End Date Monika Lehman MD [address] [place] [address] PCP - General Family Medicine 03/12/15 Aman Quiroz MD [address] [facility] [address] [place] [address] Referring Neurology 11/20/19 Neon Installer Relationship Specialty Start Date End Date Monika Lehman MD [address] [place] [address] PCP - General 08/14/18 Neon Installer Relationship Specialty Start Date End Date Monika Lehman MD [address] [facility] [address] [place] [address] PCP - General 08/14/18 Neon Installer Relationship Specialty Start Date End Date Monika Lehman MD [address] [facility] [address] [place] [address] PCP - ACO Reach 07/07/22 Monika Lehman MD [address] [place] [address] PCP - General Family Medicine 08/03/22 Neon Installer Relationship Specialty Start Date End Date Monika Lehman MD [address] [facility] [address] [place] [address] PCP - ACO Reach 07/07/22 Monika Lehman MD [address] [facility] [address] [place] [address] PCP - General Family Medicine 08/03/22 Neon Installer Relationship Specialty Start Date End Date Monika Lehman MD [address] [facility] [address] [place] [address] PCP - General 08/14/18 [place] [address] [facility] [address] [place] [address] Architectural Project Captain Nephrology 07/19/23 Neon Installer Relationship Specialty Start Date End Date Monika Lehman MD [address] [facility] [address] [place] [address] PCP - ACO Reach 07/07/22 Monika Lehman MD [address] [facility] [address] [place] [address] PCP - General Family Medicine 08/03/22 Neon Installer Relationship Specialty Start Date End Date Monika Lehman MD [address] [facility] [address] [place] [address] PCP - ACO Reach 07/07/22 Monika Lehman MD [address] [facility] [address] [place] [address] PCP - General Family Medicine 08/03/22 Neon Installer Relationship Specialty Start Date End Date Monika Lehman MD [address] [facility] [address] [place] [address] PCP - ACO Reach 07/07/22 Monika Lehman MD [address] [facility] [address] [place] [address] PCP - General Family Medicine 08/03/22 Neon Installer Relationship Specialty Start Date End Date Monika Lehman MD [address] [place] [address] PCP - ACO Reach 07/07/22 Monika Lehman MD [address] [place] [address] PCP - General Family Medicine 08/03/22 Neon Installer Relationship Specialty Start Date End Date Monika Lehman MD [address] [place] [address] PCP - ACO Reach 07/07/22 Monika Lehman MD [address] [place] [address] PCP - General Family Medicine 08/03/22 Neon Installer Relationship Specialty Start Date End Date Monika Lehman MD [address] [place] [address] PCP - ACO Reach 07/07/22 Monika Lehman MD [address] [place] [address] PCP - General Family Medicine 08/03/22 Neon Installer Relationship Specialty Start Date End Date Monika Lehman MD [address] [place] [address] PCP - ACO Reach 07/07/22 Monika Lehman MD [address] [place] [address] PCP - General Family Medicine 08/03/22 Neon Installer Relationship Specialty Start Date End Date Monika Lehman MD [address] [place] [address] PCP - ACO Reach 07/07/22 Monika Lehman MD [address] [facility] [address] [place] [address] PCP - General Family Medicine 08/03/22 Neon Installer Relationship Specialty Start Date End Date Monika Lehman MD [address] [facility] [address] [place] [address] PCP - ACO Reach 07/07/22 Monika Lehman MD [address] [facility] [address] [place] [address] PCP - General Family Medicine 08/03/22 Belen Barr RN Clinical Advocate Family Medicine 03/22/24 Goals (unrecognized section and content) Goals may [...] abdominal location Procedures CONSULT TO GASTROENTEROLOGY OFFICE/OUTPATIENT [facility] 60-74 MINUTES Erinn Lawson MD [address] [facility] [place] [address] Referral ID Status Reason Start Date Expiration Date Visits Requested Visits Authorized [id number] Pending Review PCP Requested Referral 10/28/2021 10/28/2022 1 1 Reason Comments Orders Egd/Colonoscopy unde r MAC Reason Comments Appointment Confirmation Pre-procedure i nstructions Specialty Diagnoses / Procedures Referred By Guero butt Referred To Contact ENDOSCOPY Diagnoses dx Procedures dx [facility] Endoscopy [address] [address] Referral ID Status Reason Start Date Expiration Date Visits Re quested Visits Authorized [id number] 1 1 Reason Comments Results Reason Comments Colon polyp Reason Onset Date Comments Refill Request 02/24/2022 Reason Comments Pre-Op Visit Reason Comments Impress Associate - Other Reason Comments Returning Patient's Call [...] of central origin Unsteadiness on feet Procedures UT THERAPEUTIC PX 1/> AREAS EACH 15 MIN EXERCISES Aman Quiroz MD [address] [place] [address] Aleah Pierce, PT [address] [place] [address] Referral ID Status Reason Start Date Expiration Date V isits Requested Visits Authorized [id number] Authorized 02/17/2023 08/16/2023 30 30 Reason Comments [...] or prosecute any alcohol or drug abuse patient.[facility] the event this information is protected by the Federal Confidentiality of Alcohol and Drug Abuse Patient Records regulations: The Federal rules restrict any use of the information to criminally investigate or prosecute any alcohol or drug abuse patient.[facility] the event this information is protected by the Federal Confidentiality of Alcohol and Drug Abuse Patient Records regulations: The Federal rules restrict any use of the information to criminally investigate or prosecute any alcohol or drug abuse patient.[facility] the event this information is protected by the Federal Confidentiality of Alcohol and Drug Abuse Patient Records regulations: The Federal rules restrict any use of the information to criminally investigate or prosecute any alcohol or drug abuse patient.[facility] the event this information is protected by the Federal Confidentiality of Alcohol and Drug Abuse Patient Records regulations: The Federal rules restrict any use of the information to criminally investigate or prosecute any alcohol or drug abuse patient.[facility] the event this information is protected by the Federal Confidentiality of Alcohol and Drug Abuse Patient Records regulations: The Federal rules restrict any use of the information to criminally investigate or prosecute any alcohol or drug abuse patient.[facility] HospitalIn the event this information is protected by the Federal Confidentiality of Alcohol and Drug Abuse Patient Records regulations: The Federal rules restrict any use of the information to criminally investigate or prosecute any alcohol or drug abuse patient.[facility] the event this information is protected by the Federal Confidentiality of Alcohol and Drug Abuse Patient Records regulations: The Federal rules restrict any use of the information to criminally investigate or prosecute any alcohol or drug abuse patient.[facility] the event this information is protected by the Federal Confidentiality of Alcohol and Drug Abuse Patient Records regulations: The Federal rules restrict any use of the information to criminally investigate or prosecute any alcohol or drug abuse patient.[facility] the event this information is protected by the Federal Confidentiality of Alcohol and Drug Abuse Patient Records regulations: The Federal rules restrict any use of the information to criminally investigate or prosecute any alcohol or drug abuse patient.[facility] HospitalIn the event this information is protected by the Federal Confidentiality of Alcohol and Drug Abuse Patient Records regulations: The Federal rules restrict any use of the information to criminally investigate or prosecute any alcohol or drug abuse patient.[facility] HospitalIn the event this information is protected by the Federal Confidentiality of Alcohol and Drug Abuse Patient Records regulations: The Federal rules restrict any use of the information to criminally investigate or prosecute any alcohol or drug abuse patient.[facility] HospitalIn the event this information is protected by the Federal Confidentiality of Alcohol and Drug Abuse Patient Records regulations: The Federal rules restrict any use of the information to criminally investigate or prosecute any alcohol or drug abuse patient.[facility] HospitalIn the event this information is protected by the Federal Confidentiality of Alcohol and Drug Abuse Patient Records regulations: The Federal rules restrict any use of the information to criminally investigate or prosecute any alcohol or drug abuse patient.[facility] HospitalIn the event this information is protected by the Federal Confidentiality of Alcohol and Drug Abuse Patient Records regulations: The Federal rules restrict any use of the information to criminally investigate or prosecute any alcohol or drug abuse patient.[facility] HospitalIn the event this information is protected by the Federal Confidentiality of Alcohol and Drug Abuse Patient Records regulations: The Federal rules restrict any use of the information to criminally investigate or prosecute any alcohol or drug abuse patient.[facility] HospitalIn the event this information is protected by the Federal Confidentiality of Alcohol and Drug Abuse Patient Records regulations: The Federal rules restrict any use of the information to criminally investigate or prosecute any alcohol or drug abuse patient.[facility] HospitalIn the event this information is protected by the Federal Confidentiality of Alcohol and Drug Abuse Patient Records regulations: The Federal rules restrict any use of the information to criminally investigate or prosecute any alcohol or drug abuse patient.[facility] the event this information is protected by the Federal Confidentiality of Alcohol and Drug Abuse Patient Records regulations: The Federal rules restrict any use of the information to criminally investigate or prosecute any alcohol or drug abuse patient.[facility] HospitalIn the event this information is protected by the Federal Confidentiality of Alcohol and Drug Abuse Patient Records regulations: The Federal rules restrict any use of the information to criminally investigate or prosecute any alcohol or drug abuse patient.[facility] HospitalIn the event this information is protected by the Federal Confidentiality of Alcohol and Drug Abuse Patient Records regulations: The Federal rules restrict any use of the information to criminally investigate or prosecute any alcohol or drug abuse patient.[facility] the event this information is protected by the Federal Confidentiality of Alcohol and Drug Abuse Patient Records regulations: The Federal rules restrict any use of the information to criminally investigate or prosecute any alcohol or drug abuse patient.[facility] HospitalIn the event this information is protected by the Federal Confidentiality of Alcohol and Drug Abuse Patient Records regulations: The Federal rules restrict any use of the information to criminally investigate or prosecute any alcohol or drug abuse patient.[facility] HospitalIn the event this information is protected by the Federal Confidentiality of Alcohol and Drug Abuse Patient Records regulations: The Federal rules restrict any use of the information to criminally investigate or prosecute any alcohol or drug abuse patient.[facility] HospitalIn the event this information is protected by the Federal Confidentiality of Alcohol and Drug Abuse Patient Records regulations: The Federal rules restrict any use of the information to criminally investigate or prosecute any alcohol or drug abuse patient.[facility] HospitalIn the event this information is protected by the Federal Confidentiality of Alcohol and Drug Abuse Patient Records regulations: The Federal rules restrict any use of the information to criminally investigate or prosecute any alcohol or drug abuse patient.[facility] HospitalIn the event this information is protected by the Federal Confidentiality of Alcohol and Drug Abuse Patient Records regulations: The Federal rules restrict any use of the information to criminally investigate or prosecute any alcohol or drug abuse patient.[facility] FOR RECORDS PERTAINING TO PATIENTS WHO [...] BE BASED ON THE PRIMARY CLINICAL RECORDS. [facility] [employer] [facility]. provides no warranty or guarantee of the accuracy or completeness of information in this document.
--- NOTE | 2024-04-10 10:02 | CT_ITS ---
The [address] [address] Patient Name: DIANELYS WOMACK MRN: [id number] date: 1950 Sex: F Assigned Patient Location: LAB Current Patient Location: LAB Accession/Order Number: [id number] Exam Date: 04/10/2024 11:58 Report Date: 04/10/2024 12:18 At the request of: MONIKA LEHMAN Procedure: CT angio abdomen pelvis CTA OF THE ABDOMEN AND PELVIS WITH CONTRAST COMPARISON: 03/15/2023 CLINICAL DATA: Follow-up abdominal aortic and right common iliac aneurysms Spiral images were obtained through the abdomen and pelvis following 100 mL of Omnipaque 350. Sagittal and coronal MIP as well as 3-D volume rendered reconstructions of the abdominal aorta and its branches were reviewed. This CT exam was performed using one or more following dose reduction techniques: Automated exposure control, adjustment of the mA and/or kV according to patient size, or use of iterative reconstruction technique. Limited cuts through the lung bases show no contributory pulmonary findings. There is a tiny hiatal hernia.. There is atherosclerotic plaque along the aorta, iliac and some of the visceral arteries. There is redemonstration of an infrarenal aortic aneurysm extending over a length of approximately 8 cm down to the bifurcation. The maximum diameter is approximately 4.6 cm on the reconstructed images. This is approximately 5 mm larger than the comparison at a comparable level. There is mural thrombus. 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 This is also a few millimeters larger than the comparison. There is no periaortic fluid. The visceral arteries show normal opacification. The gallbladder is surgically absent. No common duct stones are noted. A cyst is again seen within the liver in the periportal region. The spleen, pancreas and adrenal glands show no acute findings. There are symmetric renal nephrograms, without hydronephrosis. A tiny umbilical hernia is visualized containing fat. There are few tiny lymph nodes. No ascites is seen. The small bowel loops are not dilated. Stool is present throughout the colon. Dextroscoliotic curvature and degenerative changes are seen at the spine, greatest at the lower facets. Lumbar hemangiomas are also noted. Images through the pelvis show normal caliber small bowel loops. The distal colon is underdistended. There are a few potential sigmoid diverticula. No active inflammation is seen. The uterus is surgically absent. No urinary bladder abnormalities are identified. No ascites is seen. 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 NO BOWEL OR URINARY TRACT OBSTRUCTION. NO ACUTE FINDINGS. Impression dictated by: Erica Tony M.D.04/10/2024 12:18 PM Dictation Location: [facility] Electronically authenticated by: [id number] Y Date: 04/10/2024 12:18
[2024-04-10 10:10] LABS: Estimated GFR (African America 43 (>=60 mL/min/1.73m^2); Estimated GFR (Non-African Ame 36 (>=60 mL/min/1.73m^2)
== END 2024-04-10 09:42 | disposition home or self-care (01) ==
PROVIDERS: PCP Family Medicine; Visit Provider Family Medicine
DX: N18.31 Chronic kidney disease, stage 3a (principal); I71.40 Abdominal aortic aneurysm, without rupture, unspecified
CPT/HCPCS: 36415; 74174; 82565; Q9967

== ENCOUNTER 2024-07-18 15:20 | Outpatient (OUT) | payer MEDICARE, BC, SELFPAY ==
--- OUTSIDE RECORDS SUMMARY | 2024-07-18 12:00 | XMS_ITS | Encounter Summary ---
Author Organization [facility] Address [address] [place] [address] Phone Care Team Providers Care Mastic Sprayer Name Role Phone Jose Roberto Cleary MD Primary Care Provider [phone] Daniel Montano MD Unavailable [phone] Reason for Visit * Reason Comments Follow-up Chronic Kidney Disease Encounter Details Date Type Department Care Team (Late st Contact Info) Description 07/18/2024 12:00 PM EDT Office Visit [facility] [address] [place] [phone] [place] [address] [place] [address] Essential hypertension (Primary Dx) Social History Tobacco Use Types Packs/Day Years Used Date Smoking Tobacco: Former Cigarettes Q uit: 2002 Smokeless Tobacco: Never Alcohol Use Standard Drinks/Week Comments Never 0 (1 standard drink = 0.6 oz pur e alcohol) PHQ-2 Answer Date Recorded Patient Health Questionnaire-2 Score 0 11/21/2022 Comments Unknown Sex and Gender Information Value Date Recorded Sex Assigned at Not on file Legal Sex Female 3:28 PM EST Gender Identity Not on file Sexual Orientation Not on file COVID-19 Exposure Response Date Recorded In the last 10 days, have yo u been in contact with someone who was confirmed or suspected to have Coronavirus/COVID-19? No / Unsure 07/18/2024 12:35 PM EDT documented as of this encounter Last Filed Vital Signs Vital Sign Reading Time Taken Comments Blood Pressure 128/91 07/18/2024 1:28 PM EDT Pulse 88 07/18/2024 1:28 PM EDT Temperature - - Respiratory Rate - - Oxygen Saturation - - Inhaled Oxygen Concentration - - Weight 85.7 kg (189 lb) 07/18/2024 1:28 PM EDT Height 160 cm (5' 3 ) 07/18/2024 1:28 PM EDT Body Mass Index 33.48 07/18/2024 1:28 PM EDT documented in this encounter Progress Notes * Daniel Montano MD - 07/18/2024 12:00 PM EDT Rebeca Jimenez 73 y.o. @WT@ [facility]/Room: [id number]/Room/bed info not found Subjective: The patient is being seen for a routine clinic follow-up of chronic kidney disease. Recently, the disease has been stable. Disease complications: No hyperkalemia, no hypocalcemia, no hyperphosphatemia, no metabolic acidosis, no coagulopathy, no uremic encephalopathy, no neuropathy and no renal osteo dystrophy. The patient is currently asymptomatic. No associated symptoms are reported. Meds: Current Medications[1] Physical Examination: Vitals: 07/18/24 1328 BP: (!) 128/91 Pulse: 88 General: The patient is awake, oriented, and is not in any distress. Head and Neck: Normocephalic. No periorbital edema. Eyes: non-icteric Respiratory: Symmetric chest expansion. No respiratory distress. Skin: No maculopapular rash. Musculoskeletal: No peripheral edema. Neuro Exam: Speech is fluent. Moves extremities. Imaging: Blood Labs: No results found for this or any previous visit (from the past 24 hours). Lab Results Component Value Date PTH 56.2 [...] be seen in my office in about one year for follow-up. Daniel Montano MD Senior Attending Physician Director of Onco-Nephrology Program Division of Nephrology & Hypertension [facility] [1] Current Outpatient Medications Medication Sig Dispense Refill ALPRAZolam XR (Xanax XR) 1 mg 24 hr tablet Take 1 tablet (1 mg) by mouth once daily. amLODIPine (Norvasc) 10 mg tablet TAKE 1 TABLET DAILY (Patient taking differently: Take 0.5 tablets(5 mg) by mouth once daily.) 90 tablet 3 b complex vitamins (Vitamins B Complex) capsule [...] am and 2 tabs in the pm (Patient taking differently: Take 1 tablet (600 mg) by mouth 2 times a day.) omeprazole (PriLOSEC) [address] capsule Take 1 capsule (40 mg) by mouth once daily. Synthroid 200 mcg tablet Take 1 tablet (200 mcg) by mouth once daily. except 1/2 tab on Mon and Monday traMADol (Ultram) 50 mg tablet Take 1 tablet (50 mg) by mouth 2 times a day. spironolactone (Aldactone) 25 mg tablet Take 1 tablet (25 mg) by mouth once daily. No current facility-administered medications for this visit. documented in this encounter Plan of Treatment Upcoming Encounters Date Type Department Care Team (Late st Contact Info) Description 07/24/2025 12:30 PM EDT Office Visit [facility] [address] [place] [phone] [place] [address] [place] [address] Scheduled Orders Name Type Priority Associated Diagnoses Orde r Schedule Basic Metabolic Panel Lab Routine Essential hypertension Expected: 07/18/2024 (Approximate), Expires: 07/18/2025 documented as of this encounter Visit Diagnoses Diagnosis Essential hypertension- Primary Unspecified essential hypertension documented in this encounter Additional Health Concerns Assessment Noted Time A fall risk assessment has been complete d for the patient 07/18/2024 1:26 PM EDT documented as of this encounter Care Teams Mastic Sprayer Relationship Specialty Start Date End Date Jose Roberto Cleary MD [address] [facility] [address] [place] [address] PCP - General 08/14/18 [place] [address] [place] [address] Title Vehicle Service Attendant Nephrology 07/19/23 documented as of this encounter
--- OUTSIDE RECORDS SUMMARY | 2024-07-18 15:26 | XMS_ITS | Encounter Summary ---
Author Organization [facility] Address [address] [place] [address] Care Team Providers Care Revenue Director Name Role Phone Jose Roberto Cleary MD Unavailable Jose Roberto Cleary MD Primary Care Provider [phone] Belen Barr RN Unavailable Farida Pride LPN Unavailable Unavailable Encounter Details Date Type Department Care Team (Late st Contact Info) Description 06/07/2023 Abstract [facility] [address] [facility] [address] [place] [address] Jose Roberto Cleary MD [address] [facility] [address] [place], [place] [id number] Social History Tobacco Use Types Packs/Day Years Used Date Smoking Tobacco: Former Cigarettes Q uit: 03/20/2012 Smokeless Tobacco: Never Alcohol Use Standard Drinks/Week Comments Never 0 (1 standard drink = 0.6 oz pur e alcohol) Humiliation, Afraid, Rape, and Kick questionnair e Answer Date Recorded Within the last year, have y ou been afraid of your partner or ex-partner? No 09/19/2022 Within the last year, have y ou been humiliated or emotionally abused in other ways by your partner or ex-partner? No Within the last year, have y ou been kicked, hit, slapped, or otherwise physically hurt by your partner or ex-partner? No 09/19/2022 Within the last year, have y ou been raped or forced to have any kind of sexual activity by your partner or ex-partner? No 09/19/2022 Social Connection and Isolat ion Panel [NHANES] Answer Date Recorded In a typical week, how many times do you talk on the phone with family, friends, or neighbors? More than three times a week 09/19/2022 How often do you get togethe r with friends or relatives? More than three times a week 09/19/2022 How often do you attend chur ch or jew services? 1 to 4 times per year 09/19/2022 Do you belong to any clubs o r organizations such as samaritan groups, unions, fraternal or athletic groups, or school groups? No 09/19/2022 How often do you attend meet ings of the clubs or organizations you belong to? Never 09/19/2022 Are you , , di vorced, , never , or living with a partner? 09/19/2022 AUDIT-C Answer Date Recorded Q1: How often do you have a drink containing alcohol? Never 09/19/2022 Q2: How many drinks containi ng alcohol do you have on a typical day when you are drinking? Patient does not drink Q3: How often do you have si x or more drinks on one occasion? Never 09/19/2022 Overall Financial Resource Strain (CARDIA) Answe r Date Recorded How hard is it for you to pa y for the very basics like food, housing, medical care, and heating? Not hard at all 09/19/2022 [facility] Occupat ional Health - Occupational Stress Questionnaire Answer Date Recorded Do you feel stress - tense, restless, nervous, or anxious, or unable to sleep at night because your mind is troubled all the time - these days? To some extent 09/19/2022 Exercise Vital Sign Answer Date Recorde d On average, how many days pe r week do you engage in moderate to strenuous exercise (like a brisk walk)? 0 days 09/19/2022 On average, how many minutes do you engage in exercise at this level? 0 min 09/19/2022 Hunger Vital Sign Answer Date Recorded Within the past 12 months, y ou worried that your food would run out before you got the money to buy more. Never true 09/20/19 23 Within the past 12 months, t he food you bought just didn't last and you didn't have money to get more. Never true 09/19/2022 PRAPARE - Transportation Answer Date Re corded In the past 12 months, has l ack of transportation kept you from medical appointments or from getting medications? No 08/2022 In the past 12 months, has l ack of transportation kept you from meetings, work, or from getting things needed for daily living? No 09/19/2022 Housing Stability Vital Sign Answer Bob e Recorded In the last 12 months, was t here a time when you were not able to pay the mortgage or rent on time? No 09/19/2022 In the last 12 months, how many places have you lived? 1 09/19/2022 In the last 12 months, was t here a time when you did not have a steady place to sleep or slept in a senior living (including now)? No 09/19/2022 Comments Unknown Sex and Gender Information Value Date Recorded Sex Assigned at Not on file Legal Sex Female 6:59 PM EDT Gender Identity Not on file Sexual Orientation Not on file documented as of this encounter Plan of Treatment Not on file documented as of this encounter Visit Diagnoses Not on filedocumented in this encounter Care Teams Revenue Director Relationship Specialty Start Date End Date Jose Roberto Cleary MD [address] [facility] [address] [place] [address] PCP - ACO Reach 07/07/22 Jose Roberto Cleary MD [address] [facility] [address] [place] [address] PCP - General Family Medicine 08/03/22 Belen Barr, RN Clinical Advocate Family Medicine 03/22/24 05/07/24 Farida Pride LPN 05/07/24 documented as of this encounter
--- OUTSIDE RECORDS SUMMARY | 2024-07-18 15:26 | XMS_ITS | Clinical Summary ---
Author Organization [facility] Address [address] [place] [id number] Care Team Providers Care Shafting Worker Name Role Phone Jose Roberto Cleary MD Primary Care Provider [phone] Sreekanth Quiroz MD Unavailable Allergies Active Allergy Reactions Criticality Noted Date Comments Ciprofloxacin Unknown 10/05/2020 Metronidazole Unknown 08/04/2016 Levofloxacin Unknown 03/10/2015 Penicillins Unknown,Other: See Comments 016 Seasonal Allergies Unknown 10/05/2020 Soy Unknown 05/16/2015 Vancomycin Unknown 11/17/2021 Medications Lactobacillus acidophilus (PROBIOTIC ORAL) Take by mouth once daily. Active amLODIPine (NORVASC) 5 mg tablet Take 5 mg by mouth once daily. 2 Active gabapentin (NEURONTIN) 600 mg tablet twice daily. 2 Active traMADol (ULTRAM) 50 mg tablet as needed. 2 Active KLOR-CON M20 20 mEq tablet Take 20 mEq by mouth twice daily. 2 Active levothyroxine (SYNTHROID) 200 mcg tablet once daily. 2 Active folic acid 1 mg tablet once daily. 2 Active cetirizine (ZYRTEC) 10 mg tablet Take by mouth as needed. Active vitamin B complex (B COMPLEX ORAL) Take by mouth. A ctive ondansetron (ZOFRAN) 4 mg tablet as needed. 2 Active neomycin 500 mg tablet Take 2 tablets by mouth at 9pm and take 2 tablets by mouth at 11pm the night before surgery. 4 tablet 3 Active Additional Information Patient not taking.Reported on 05/09/2024 OMEPRAZOLE ORAL Take 40 mg by mouth once daily. Active ALPRAZolam (XANAX) 1 mg tablet Take 1 mg by mouth as needed. Active spironolactone (ALDACTONE) 25 mg tablet Take 1 tablet by mouth once daily. 5 Active furosemide (LASIX) 20 mg tablet Take 20 mg by mouth once daily. Active amLODIPine (NORVASC) 5 mg tablet Take 1 tablet by mouth once daily. 90 tablet 5 08/08/19 25 Active Active Problems Problem Noted Date Diagnosed Date Former smoker 02/24/2022 Assessment & Plan (02/24/2022 10:08 AM EST): Patient reports Former smoker on and off 15 years 1 PPD. 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 Cece LARSEN, last visit 7 months Monitoring yearly with ultrasound Anxiety and depression 02/24/2022 Assessment & Plan (02/24/2022 10:33 AM EST): Managed with ALPRAZolam (XANAX) Difficult intubation 02/24/2022 History of difficult intubation 02/24/2022 Assessment & Plan (02/24/2022 10:40 AM EST): Patient reports she has a small passage way. She notes difficulty with intubation 15 years ago, needed a PEDS tube to be used. Primary hypertension 12/06/2021 Assessment & Plan (02/24/2022 10:22 AM EST): Managed with amLODIPine (NORVASC) BP this visit 153/87 Patient denies SOB, dizziness, lightheadedness, palpitations, fluttering, syncope and chest pain Hypothyroidism 12/06/2021 Assessment & Plan (02/24/2022 9:58 AM EST): Managed with levothyroxine (SYNTHROID) Gastroesophageal reflux disease without esophagi tis 12/06/2021 Assessment & Plan (02/24/2022 10:28 AM EST): Managed with Lactobacillus acidophilus (PROBIOTIC ORAL) and OMEPRAZOLE Reports controlled and stable Chronic renal impairment, stage 2 (mild) 022 Assessment & Plan (02/24/2022 10:47 AM EST): 10/29/21 BUN 7 - 21 mg/dL 19 Creatinine 0.58 - 0.96 mg/dL 1.17 High Sodium 136 - 144 mmol/L 143 Potassium 3.7 - 5.1 mmol/L 3.4 Low Chloride 97 - 105 mmol/L 105 CO2 22 - 30 mmol/L 29 Anion Gap 9 - 18 mmol/L 9 Estimated Glomerular Filtration Rate >=60 mL/min/1.73m 50 Low History of anesthesia complications 12/06/2021 Overview (12/06/2021): Reports difficulty with intubation, needed peds tube - 15 years ago Assessment & Plan (02/24/2022 10:13 AM EST): Patient reports she has a small passage way. She notes difficulty with intubation 15 years ago, needed a PEDS tube to be used. CVA (cerebral vascular accident) 12/06/2021 Assessment & Plan (02/24/2022 10:20 AM EST): History 2004, notes no residual. Encounters Date Type Department Care Team Description 05/29/2024 Telephone Cardiology [address] [facility] [address] [place] [address] Oliver Torres MD Patient Update 05/28/2024 12:00 PM EDT Office Visit Cardiology [address] [facility] [address] [place], [place] [id number] Encounter for screening for cardiovascular disorders; Encounter for preprocedural cardiovascular examination 05/27/2024 Telephone Cardiology [address] [facility] [address] [place], [place] [id number] Oliver Torres MD Appointment (Pre-Nuclear stress test call) 05/24/2024 Travel 05/09/2024 2:15 PM EDT Office Visit Vascular Surg Dept [address] [facility] [address] [place] [address] Oliver Torres MD Carotid stenosis, asymptomatic, bilateral (Primary Dx); Pararenal abdominal aortic aneurysm (AAA) without rupture; Encounter for screening for cardiovascular disorders; Encounter for preprocedural cardiovascular examination 05/08/2024 Patient Msg Internal Medicine [address] [place] [address] Provider, [facility] Vascular Surgery Appoitment Notification 05/08/2024 Telephone Internal Medicine [address] [place] [address] Erinn Lawson MD from Last 3 Months Family History Medical History Relation Comments brain issues? deteriation of cerabellum Mother Relation Status Comments Mother Social History Tobacco Use Types Packs/Day Years Used Date Smoking Tobacco: Former Cigarettes Q uit: 2012 Smokeless Tobacco: Never Tobacco Cessation:Counseling Given: Not Answered Alcohol Use Standard Drinks/Week Comments Never 0 (1 standard drink = 0.6 oz pur e alcohol) Area Deprivation Index Answer Date Dann rded National Score (1-100), lower number is lower ri sk 78 05/09/2024 State Score (1-10), lower number is lower risk 6 05/09/2024 Data from: https://www.neighborhoodatlas.medicine.[facility].edu/. Last address used for calculation Mary Romero 05/09/2024 Comments No Sex and Gender Information Value Date Recorded Sex Assigned at Not on file Legal Sex Female 11:20 AM EST Gender Identity Not on file Sexual Orientation Not on file Last Filed Vital Signs Vital Sign Reading Time Taken Comments Blood Pressure 149/99 05/09/2024 2:43 PM EDT Pulse 83 05/09/2024 2:43 PM EDT Temperature 36.7 C (98.1 F) 10/25/2022 11:15 AM EDT Respiratory Rate 18 10/25/2022 11:15 AM EDT Oxygen Saturation 97% 10/25/2022 11:30 AM EDT Inhaled Oxygen Concentration - - Weight 68 kg (150 lb) 10/25/2022 9:51 AM EDT Height 160 cm (5' 2.99 ) 10/25/2022 9:51 AM EDT Body Mass Index 26.58 10/25/2022 9:51 AM EDT Plan of Treatment Upcoming Encounters Date Type Department Care Team (Late st Contact Info) Description 11/18/2024 9:00 AM EDT Office Visit Vascular Surgery [address] [place] [address] [place] CAROTID ARTERIES TORIN 11/18/2024 10:00 AM EDT Office Visit Vascular Surgery [address] [place] [address] US ABD AORTA COMPLETE VAS 11/18/2024 11:00 AM EDT Office Visit Vascular Surg Dept [address] [place] [address] Oliver Torres MD [address] [address] 6 mth f/u Health Maintenance Due Date Last Done Comments Annual PCP Team Chronic Dise ase Visit 12/09/1967 BP Controlled (<130/80) 12/09/1967 Hepatitis C Screening 12/09/1967 DTaP,Tdap,Td Vaccine (1 - Tdap) [address] Colonography 1994 Cologuard (FIT-DNA) 1994 Fecal Occult Blood 1994 Lipid Screening 1994 Sigmoidoscopy 1994 Pneumococcal Vaccine: 50+ (1 of 1 - PCV) 12/09/1999 Shingrix Vaccine (1 of 2) 12/09/1999 Bone Density Screening 2014 Serum Creatinine 02/24/2023 02/24/2022, , 04/16/2020, Additional history exists Covid-19 Vaccine ( - 2023-2 5 season) 2023 01/14/2021, 04/14/2020, 03/24/2020 Colonoscopy 10/26/2023 10/25/2022, 02/13, 12/06/2021 Colorectal Cancer Screening 10/26/2023 Advance Directive Discussion 02/14/2024 RSV Vaccine (1 - 1-dose 75+ series) 2024 Diabetes Screening 02/24/2025 02/24/2022, 0 10/29/2021, 04/16/2020, Additional history exists Influenza Vaccine Completed 01/17/2024, , 12/04/2020, Additional history exists Goals Goal Patient Goal Type Associated Problems Recent Progress Patient-Stated? Author Blood Pressure < 130/80 Blood Pressure 149/99( 025 2:43 PM EDT) Oliver Pereira MD Procedures Procedure Name Priority Date/Time Associated Diagnosis Comments NM CARDIAC PERF STRESS/PHARM Routine 05/28/2024 3:41 PM EDT Encounter for screening for cardiovascular disorders Encounter for preprocedural cardiovascular examination LVEF TRANSTHORACIC ECHO Routine 05/28/2024 12:53 PM EDT ECHO Routine 05/28/2024 12:53 PM EDT Pararenal abdominal aortic aneurysm (AAA) without rupture Carotid stenosis, asymptomatic, bilateral Encounter for screening for cardiovascular disorders COLONOSCOPY DIAGNOSTIC Routine 10/25/2022 10:08 AM EDT Abdominal pain, unspecified abdominal location Diarrhea, unspecified type COMPREHENSIVE METABOLIC PANEL Routine 02/24/2022 11:14 AM EST Rectal mass from Last 3 Months or Most Recently Relevant to Health Maintenance Results * NM CARDIAC PERF STRESS/PHARM (05/28/2024 3:41 PM EDT) Anatomical Region Laterality Modality Heart Nuclear Medicine 05/28/2024 3:41 PM EDT Narrative 05/28/2024 5:00 PM EDT * * *Final Report* * * DATE OF EXAM: May 28 2024 3:41PM N 0006 - NM CARDIAC PERF STRESS/PHARM / PROCEDURE REASON: multiple diagnoses * * * * Physician Interpretation * * * * PATIENT: Name: REBECA JIMENEZ Age: 73 years Gender: F CONCLUSIONS: 1. SPECT Perfusion Study: Normal. 2. There is no scintigraphic evidence for inducible ischemia. 3. No evidence of scarred myocardium. 4. Left ventricle is normal in size. The left ventricle systolic function is normal. 5. Right ventricle is normal in size. The right ventricle systolic function is normal. 6. This is a low risk scan. Gated Stress FBP Gated Rest FBP LVEF % 63 65 Prior Study Comparison No prior nuclear cardiology exam available for comparison. Nuclear Med Report:1-Day Gated SPECT Myocardial Perfusion with Regadenoson Stress: Myocardial perfusion imaging was performed at rest 30 minutes following the IV injection of the radiotracer. The patient received 0.4 mg of regadenoson, via rapid IV push, immediately followed by radiotracer IV. Gated post stress tomographic imaging was performed 30 to 60 minutes later. See administered radiotracer and doses below. [facility] Office Date of service: 05/28/2024 1:25:55 PM Ordering Physician: OLIVER TORRES. Requesting Physician: Indication: Assessment for suspected CAD and h/o CVA, carotid stenosis Interpreting physician: Gómez Rivas MD Height: 157.48 cm BSA: 1.88 m Weight: 80.74 kg BMI: 32.6 kg/m Imaging Protocol Limitation Reason Patient motion and G.I. uptake. Exam Type: Rest Stress Radiopharm: Tc-99m Tetrofosmin Tc-99m Tetrofosmin Dosage(mCi): 12.8 30.6 Stress Agent: Regadenoson 0.4mg Supply provided from [facility] Resting Blood Press: 132/74 mmHg Image Quality The overall study imaging quality was deemed to be good. The following technical issues were noted: Patient motion and G.I. uptake. FINDINGS: Left Ventricle Wall Motion: Stress IR:3D - All segments are normal. Rest IR:3D - Gated Stress FBP - Gated Rest FBP - Reversibility - Stress IR:3D Stress IR:3D Gated Stress FBP Gated Rest FBP LVEF: 63 % 65 % ED Volume: 62 ml 60 ml ES Volume: 23 ml 21 ml TID: 0.87 Perfusion Findings Stress IR:3D - Summed Score=0 All segments demonstrate normal perfusion. Rest IR:3D - Summed Score=0 All segments demonstrate normal perfusion. Stress IR:3D Rest IR:3D Summed Score=0 Summed Score=0 LEFT VENTRICLE The left ventricle is normal in size. Left ventricular systolic function is normal. Right Ventricle The right ventricle is normal in size. Right ventricle systolic function is normal. Stress Test Findings: There is no scintigraphic evidence for inducible ischemia. There is no evidence of scarring. The left ventricular cavity size is unchanged with stress. * * * Final * * * Stress ECG Report: [facility] Date of service: 05/28/2024 1:25:55 PM Ordering physician: OLIVER TORRES Interpreting physician: Tu Fuller MD Patient name: REBECA JIMENEZ Age: 73 years Gender: F Height: 157.48 cm BSA: 1.88 m Weight: 80.74 kg BMI: 32.6 kg/m Indication: Encounter for pre-procedural cardiovascular examination for non-cardiac surgery Stress ECG Conclusion: Conclusion: Normal Stress ECG Summary: The patient's resting heart rate was 83 bpm and blood pressure was 132/74 mmHg. The patient received regadenoson 0.4 mg IVP over approximately 15 seconds followed immediately by injection of nuclear isotope. The test was terminated due to end of protocol. No symptoms provoked during stress. The maximum heart rate was 112 bpm, which is 77% of the predicted heart rate for age. Peak blood pressure was 138/74 mmHg. The double product achieved was [address]. Medications: Last Used AMLODIPINE LASIX POTASSIUM SPIRONOLACTONE SYNTHROID Resting ECG: Normal Sinus Rhythm Symptoms at rest: No symptoms Pharamcologic Protocol: Regadenoson Stress Exercise Table: +------+ +--+---+---+ Stage Time (min) HR SYS VALERIA +------+ +--+---+---+ 1 1.0 81 132 74 +------+ +--+---+---+ 2 2.0 96 +------+ +--+---+---+ 3 3.0 95 136 72 +------+ +--+---+---+ 4 4.0 95 +------+ +--+---+---+ +-----+---+---+---+ HR SYS VALERIA +-----+---+---+---+ Final 112 138 74 +-----+---+---+---+ Recovery Table: +------+ +---+---+---+ Stage Time (min) HR SYS VALERIA +------+ +---+---+---+ 1 1.0 102 136 74 +------+ +---+---+---+ 2 2.0 85 128 76 +------+ +---+---+---+ 3 3.0 106 130 74 +------+ +---+---+---+ 4 4.0 91 128 72 +------+ +---+---+---+ Stress Observations: Resting HR: 83 bpm Peak HR: 112 bpm (77% MPHR) Resting BP: 132 / 74 mmHg Peak BP: 138 / 74 mmHg Heart rate recovery (HRR): 10 bpm Rate Pressure Product (RPP): 01348 Stress Exercise Observations: Reason for test termination: end of protocol, Symptoms during test: No symptoms provoked during stress, Blood pressure response: Normal BP response and SBP failed to increase 10 mmHg, ST segment and T wave changes: No ST changes and Arrhythmias: No arrhythmias Metabolic Exercise Data Variable: Observed value [Expected Range] HGI: 0.4 [>1.06 bpm/mmHg] * * * Final * * * Stress Avionics Systems Integration Specialist Report: [facility] Date of service: 05/28/2024 1:25:55 PM Supervising physician: Tu Fuller MD PATIENT: Name: REBECA JIMENEZ Age: 73 years Gender: F The supervising physician was in the department and immediately available. * * * Final * * * RP [employer] Internship: ADARSH Transcribe Date/Time: May 28 2024 1:25P Dictated by : GÓMEZ RIVAS MD This examination was interpreted and the report reviewed and electronically signed by: GÓMEZ RIVAS MD on May 28 2024 5:00PM EST Procedure Note Provider, [facility] [place] - 05/28/2024 * * *Final Report* * * DATE OF EXAM: May 28 2024 3:41PM N 0006 - NM CARDIAC PERF STRESS/PHARM / PROCEDURE REASON: multiple diagnoses * * * * Physician Interpretation * * * * PATIENT: Name: REBECA JIMENEZ Age: 73 years Gender: F CONCLUSIONS: 1. SPECT Perfusion Study: Normal. 2. There is no scintigraphic evidence for inducible ischemia. 3. No evidence of scarred myocardium. 4. Left ventricle is normal in size. The left ventricle systolic function is normal. 5. Right ventricle is normal in size. The right ventricle systolic function is normal. 6. This is a low risk scan. Gated Stress FBP Gated Rest FBP LVEF % 63 65 Prior Study Comparison No prior nuclear cardiology exam available for comparison. Nuclear Med Report:1-Day Gated SPECT Myocardial Perfusion with Regadenoson Stress: Myocardial perfusion imaging was performed at rest 30 minutes following the IV injection of the radiotracer. The patient received 0.4 mg of regadenoson, via rapid IV push, immediately followed by radiotracer IV. Gated post stress tomographic imaging was performed 30 to 60 minutes later. See administered radiotracer and doses below. [facility] Date of service: 05/28/2024 1:25:55 PM Ordering Physician: OLIVER TORRES. Requesting Physician: Indication: Assessment for suspected CAD and h/o CVA, carotid stenosis Interpreting physician: Gómez Rivas MD Height: 157.48 cm BSA: 1.88 m Weight: 80.74 kg BMI: 32.6 kg/m Imaging Protocol Limitation Reason Patient motion and G.I. uptake. Exam Type: Rest Stress Radiopharm: Tc-99m Tetrofosmin Tc-99m Tetrofosmin Dosage(mCi): 12.8 30.6 Stress Agent: Regadenoson 0.4mg Supply provided from [facility] Resting Blood Press: 132/74 mmHg Image Quality The overall study imaging quality was deemed to be good. The following technical issues were noted: Patient motion and G.I. uptake. FINDINGS: Left Ventricle Wall Motion: Stress IR:3D - All segments are normal. Rest IR:3D - Gated Stress FBP - Gated Rest FBP - Reversibility - Stress IR:3D Stress IR:3D Gated Stress FBP Gated Rest FBP LVEF: 63 % 65 % ED Volume: 62 ml 60 ml ES Volume: 23 ml 21 ml TID: 0.87 Perfusion Findings Stress IR:3D - Summed Score=0 All segments demonstrate normal perfusion. Rest IR:3D - Summed Score=0 All segments demonstrate normal perfusion. Stress IR:3D Rest IR:3D Summed Score=0 Summed Score=0 LEFT VENTRICLE The left ventricle is normal in size. Left ventricular systolic function is normal. Right Ventricle The right ventricle is normal in size. Right ventricle systolic function is normal. Stress Test Findings: There is no scintigraphic evidence for inducible ischemia. There is no evidence of scarring. The left ventricular cavity size is unchanged with stress. * * * Final * * * Stress ECG Report: [facility] Date of service: 05/28/2024 1:25:55 PM Ordering physician: OLIVER TORRES Interpreting physician: Tu Fuller MD Patient name: REBECA JIMENEZ Age: 73 years Gender: F Height: 157.48 cm BSA: 1.88 m Weight: 80.74 kg BMI: 32.6 kg/m Indication: Encounter for pre-procedural cardiovascular examination for non-cardiac surgery Stress ECG Conclusion: Conclusion: Normal Stress ECG Summary: The patient's resting heart rate was 83 bpm and blood pressure was 132/74 mmHg. The patient received regadenoson 0.4 mg IVP over approximately 15 seconds followed immediately by injection of nuclear isotope. The test was terminated due to end of protocol. No symptoms provoked during stress. The maximum heart rate was 112 bpm, which is 77% of the predicted heart rate for age. Peak blood pressure was 138/74 mmHg. The double product achieved was [address]. Medications: Last Used AMLODIPINE LASIX POTASSIUM SPIRONOLACTONE SYNTHROID Resting ECG: Normal Sinus Rhythm Symptoms at rest: No symptoms Pharamcologic Protocol: Regadenoson Stress Exercise Table: +------+ +--+---+---+ Stage Time (min) HR SYS VALERIA +------+ +--+---+---+ 1 1.0 81 132 74 +------+ +--+---+---+ 2 2.0 96 +------+ +--+---+---+ 3 3.0 95 136 72 +------+ +--+---+---+ 4 4.0 95 +------+ +--+---+---+ +-----+---+---+---+ HR SYS VALERIA +-----+---+---+---+ Final 112 138 74 +-----+---+---+---+ Recovery Table: +------+ +---+---+---+ Stage Time (min) HR SYS VALERIA +------+ +---+---+---+ 1 1.0 102 136 74 +------+ +---+---+---+ 2 2.0 85 128 76 +------+ +---+---+---+ 3 3.0 106 130 74 +------+ +---+---+---+ 4 4.0 91 128 72 +------+ +---+---+---+ Stress Observations: Resting HR: 83 bpm Peak HR: 112 bpm (77% MPHR) Resting BP: 132 / 74 mmHg Peak BP: 138 / 74 mmHg Heart rate recovery (HRR): 10 bpm Rate Pressure Product (RPP): 22913 Stress Exercise Observations: Reason for test termination: end of protocol, Symptoms during test: No symptoms provoked during stress, Blood pressure response: Normal BP response and SBP failed to increase 10 mmHg, ST segment and T wave changes: No ST changes and Arrhythmias: No arrhythmias Metabolic Exercise Data Variable: Observed value [Expected Range] HGI: 0.4 [>1.06 bpm/mmHg] * * * Final * * * Stress Avionics Systems Integration Specialist Report: [facility] Date of service: 05/28/2024 1:25:55 PM Supervising physician: Tu Fuller MD PATIENT: Name: REBECA JIMENEZ Age: 73 years Gender: F The supervising physician was in the department and immediatelyavailable. * * * Final * * * RP [employer] Internship: ADARSH Transcribe Date/Time: May 28 2024 1:25P Dictated by : GÓMEZ RIVAS MD This examination was interpreted and the report reviewed and electronically signed by: GÓMEZ RIVAS MD on May 28 2024 5:00PM EST us Oliver Torres MD [place] Final Result * ECHO (05/28/2024 12:53 PM EDT) 05/28/2024 12:5 3 PM EDT [facility] - 05/28/2024 4:24 PM EDT CONCLUSIONS: - Exam indication: Re-evaluation of known ascending aortic dilatation to establish baseline - The left ventricle is normal in size. There is mild concentric left ventricular hypertrophy. Left ventricular systolic function is normal. EF = 56 5% (3D) Indeterminate left ventricular diastolic function. - The right ventricle is normal in size. Right ventricular systolic function is normal. - 1+ AR. - The visualized aorta is borderline dilated with a maximal dimension of 4.0 cm. There is a localized mobile atheroma in the sinutubular junction measuring 5 X 5 mm. - The patient has not had a prior CC echocardiographic exam for comparison. * * * Final * * * Narrative [facility] - 05/28/2024 4:24 PM EDT Echocardiography Report: Transthoracic Echo [facility] Date of service: 05/28/2024 12:53:37 PM SUPPORT SPECIALIST Ordering physician: OLIVER TORRES Indication: Re-evaluation of known ascending aortic dilatation to establish baseline Technologist: Anna Sanz [facility] Interpreting physician: Kenia Christianson MD PATIENT: Name: REBECA JIMENEZ : 1950 Age: 73 years Gender: F Primary rhythm: sinus. Secondary rhythm: PAC. Height: 160.00 cm BSA: 1.74 m Weight: 68.04 kg BMI: 26.6 kg/m Heart rate 84 bpm Blood pressure 124/74 mmHg Color Doppler was utilized to interrogate the cardiac valves assessed and spectral Doppler was utilized to determine the flow velocities and pressure gradients reported in this exam. MEASUREMENTS: Value Indexed Normal Max aortic dimension 4.0 cm Ao < 3.8 Left atrial volume 32 ml (Urena's) 19 ml/m Katarzyna <= 34 LV ID (diastole) 3.3 cm (2D) 1.87 cm/m LV ID (systole) 2.3 cm (2D) 1.30 cm/m IVS, leaflet tips 1.6 cm (2D) Posterior wall thickness 1.3 cm (2D) Left ventricular mass 160 g (2D) 92 g/m LV stroke volume 45 ml (3D) LV end diastolic volume 80 ml (3D) 46.0 ml/m EDVi<=71 LV end systolic volume 35 ml (3D) 20.1 ml/m Ejection Fraction 56 % (3D) EF > 54 FINDINGS: LEFT VENTRICLE The left ventricle is normal in size. There is mild concentric left ventricular hypertrophy. Left ventricular systolic function is normal. Indeterminate left ventricular diastolic function. Mitral annular lateral E/e': 5.5. Mitral annular septal E/e': 7.3. Wall Motion: All scored segments are normal. 3D data was obtained and analyzed to provide quantitative left ventricle measurements and assist with ventricular assessment. RIGHT VENTRICLE The right ventricle is normal in size. There is present right ventricular hypertrophy. Right ventricular systolic function is normal. RV systolic tissue Doppler velocity is 9.9 cm/s. Tricuspid annular displacement is 2.0 cm. Estimated right atrial pressure is not included as the IVC was not seen. LEFT ATRIUM The left atrial cavity is normal in size. RIGHT ATRIUM The right atrial cavity is normal in size. MITRAL VALVE [place] mitral valve. There is mild mitral annular calcification observed posterior. There is trace mitral valve regurgitation. There is mild thickening. There is mild calcification. The peak mitral E/A ratio is 0.55. The average mitral E/e' ratio is 6.4. TRICUSPID VALVE [place] tricuspid valve. There is trace tricuspid valve regurgitation. There is no thickening. AORTIC VALVE There is mild (1+) aortic valve regurgitation. Tricuspid aortic valve. There is mild thickening. There is mild calcification. The peak gradient is 8 mmHg (peak velocity = 145.0 cm/s). PULMONIC VALVE The pulmonic valve was not seen or not interrogated. There is no pulmonic valve regurgitation. The peak gradient is 5 mmHg. AORTA The visualized aorta is borderline dilated. Measurements - Sinus: 3.2 cm. Mid ascending aorta 4.0 cm. Distal descending diaphragmatic level 2.2 cm. There is localized mobile atheroma in the sinotubular junction measuring 0.5 cm. PULMONARY ARTERIES The pulmonary arteries are unseen or not interrogated. INTERATRIAL SEPTUM The interatrial septum is normal. There is no evidence of intracardiac shunting as detected by Doppler. INTERVENTRICULAR SEPTUM The interventricular septum is normal. PERICARDIUM The pericardium is normal. Oliver Torres MD ECHO Final Result Performing Organization Address [facility] Co de Phone Number [facility] [address] [place] [address] * LVEF TRANSTHORACIC ECHO (05/28/2024 12:53 PM EDT) LV Ejection Fraction 56 % [facility] Comment: (3D) EF > 54 An LV Ejection Fraction of > 50% is normal 05/28/2024 12:5 3 PM EDT Oliver Torres MD LVEF RESULTS Final Result Performing Organization Address [facility] Co de Phone Number [facility] [address] [place] [address] * COLONOSCOPY DIAGNOSTIC (10/25/2022 10:08 AM EDT) Anatomical Region Laterality Modality Other 10/25/2022 10:0 8 AM EDT Narrative 10/25/2022 11:36 AM EDT Q3 Patient Name: Rebeca Jimenez Procedure Date: 10/25/2022 10:08 AM Date of : 1950 Admit Type: Outpatient Age: 71 Gender: Female Note Status: Finalized Attending MD: Kenton Kapadia MD Procedure: Colonoscopy Indications: High risk colon cancer surveillance: Personal history of colonic polyps Providers: Kenton Kapadia MD Patient Profile: This is a 71 year old female. Last Colonoscopy: 1 year ago. Referring Physician: Taz Faith MD (Referring MD) Medicines: Propofol per Anesthesia [...] for surveillance. Procedure Code(s): --- Professional --- 77511, Colonoscopy, flexible; with removal of tumor(s), polyp(s), or other lesion(s) by snare technique Diagnosis Code(s): --- Professional --- Z12.11, Encounter for screening for malignant neoplasm of colon Z86.010, Personal history of colonic polyps Z98.890, Other specified postprocedural states D12.2, Benign neoplasm of ascending colon CPT copyright 2020 [employer]. All rights reserved. Attending Participation: I personally performed the entire procedure. Scope In: 10:37:51 AM Scope Out: 11:08:30 AM MD Kenton Rowe MD 10/25/2022 11:34:00 AM This report has been signed electronically by Kenton Kapadia MD Number of Addenda: 0 Note Initiated On: 10/25/2022 10:08 AM us Taz Faith MD DIGESTIVE DISEASE Final Resu lt * (ABNORMAL) COMP METABOLIC PANEL (02/24/2022 11:14 AM EST) Protein, Total 6.8 6.3 - 8.0 g/dL 02/24/2022 8:36 PM EST [facility] Albumin 3.8(L) 3.9 - 4.9 g/dL 02/24/2022 8:36 PM EST [facility] Calcium, Total 10.0 8.5 - 10.2 mg/dL 02/24/2022 8:36 PM EST [facility] Bilirubin, Total 0.4 0.2 - 1.3 mg/dL 02/24/2022 8:36 PM EST [facility] Alkaline Phosphatase 152(H) 34 - 123 U/L 02/24/2022 8:36 PM EST [facility] AST 30 13 - 35 U/L 02/24/2022 8:36 PM EST [facility] ALT 17 7 - 38 U/L 02/24/2022 8:36 PM EST [facility] Glucose 98 74 - 99 mg/dL 02/24/2022 8:36 PM EST [facility] Comment: The [employer] (ADA) provides guidance for cutoff [...] Standards of Medical Care in Diabetes 2016, [employer]. Diabetes Care. 2016.39(Suppl 1). BUN 20 7 - 21 mg/dL 02/24/2022 8:36 PM EST [facility] Creatinine 0.82 0.58 - 0.96 mg/dL 02/24/2022 8:36 PM EST [facility] Sodium 138 136 - 144 mmol/L 02/24/2022 8:36 PM EST [facility] Potassium 4.5 3.7 - 5.1 mmol/L 02/24/2022 8:36 PM EST [facility] Chloride 105 97 - 105 mmol/L 02/24/2022 8:36 PM EST [facility] CO2 22 22 - 30 mmol/L 02/24/2022 8:36 PM EST [facility] Anion Gap 11 9 - 18 mmol/L 02/24/2022 8:36 PM EST [facility] Estimated Glomerular Filtration Rate 76 >=60 mL/min/1.7 3m 02/24/2022 8:36 PM [facility] Comment:Estimated Glomerular Filtration Rate (eGFR) is calculated using the 2020 CKD-EPI creatinine equation. This equation utilizes serum creatinine, sex, and age as parameters. The creatinine assay has traceable calibration to isotope dilution- mass spectrometry. Refer to KDIGO guidelines for clinical interpretation. In patients with unstable renal function, e.g. those with acute kidney injury, the eGFR may not accurately reflect actual GFR. Blood BLOOD SPECIMEN / Unknown Venipuncture / Unknown 02/24/2022 11:14 AM EST 02/24/2022 11:14 AM EST us I Pradeep Garcia MD LABORATORY Final Result [facility] [address] [id number], from Last 3 Months or Most Recently Relevant to Health Maintenance Insurance MEDICARE [address] MEDICARE SUPPLEMENT Care Teams Shafting Worker Relationship Specialty Start Date End Date Jose Roberto Cleary MD [address] [facility] 110 [place] [address] PCP - General Family Medicine 03/12/15 Sreekanth Quiroz MD [address] [facility] 110 [place] [address] Referring Neurology 11/20/19
--- OUTSIDE RECORDS SUMMARY | 2024-07-18 15:26 | XMS_ITS | Encounter Summary ---
Author Organization [facility] Address [address] [place] [address] Care Team Providers Care Siderographer Name Role Phone Jose Roberto Cleary MD Unavailable Jose Roberto Cleary MD Primary Care Provider [phone] Belen Barr RN Unavailable [phone] Farida Pride LPN Unavailable Unavailable Reason for Visit * Reason Comments Med Refill Encounter Details Date Type Department Care Team (Late st Contact Info) Description 11/25/2022 Refill [facility] [address] [place] [address] Erica Sierra PA [address] [facility] 110 [place] [address] Spondylosis without myelopathy or radiculopathy, lumbar region; Neuralgia and neuritis, unspecified Social History Tobacco Use Types Packs/Day Years [...] 09/19/2022 How often do you attend chur or rastafari services? 1 to 4 times per year 09/19/2022 Do you belong to any clubs o r organizations such as episcopal groups, unions, fraternal or athletic groups, or [...] and heating? Not hard at all 09/19/2022 [facility] Health - Occupational Stress [...] money to buy more. Never true 09/20/19 Within the past 12 months, t he [...] place to sleep or slept in a usp (including now)? No 09/19/2022 Comments Unknown Sex and Gender Information Value Date Recorded Sex Assigned at Not on file Legal Sex Female 6:59 PM EDT Gender Identity Not on file Sexual Orientation Not on file documented as of this encounter Miscellaneous Notes * Telephone Encounter - KASEY Guerra - 11/28/2022 9:06 AM EDT According to what I can see, pt has not been seen in the office since June. Please help her get scheduled within the next month in order to continue to receive this medication. Last refill until seen. documented in this encounter Plan of Treatment Not on file documented as of this encounter Visit Diagnoses Diagnosis Spondylosis without myelopathy or radiculopathy, lumbar region Neuralgia and neuritis, unspecified documented in this encounter Care Teams Siderographer Relationship Specialty Start Date End Date Jose Roberto Cleary MD [address] [address] PCP - ACO Reach 07/07/22 Jose Roberto Cleary MD [address] [address] PCP - General Family Medicine 08/03/22 Belen Barr, RN Clinical Advocate Family Medicine 03/22/24 05/07/24 Farida Pride LPN 05/07/24 documented as of this encounter
--- OUTSIDE RECORDS SUMMARY | 2024-07-18 15:26 | XMS_ITS | Encounter Summary ---
Author Organization [facility] Address [address] [facility] [place] [address] Care Team Providers Care Gas Engine Repairer Name Role Phone Jose Roberto Cleary MD Unavailable Jose Roberto Cleary MD Primary Care Provider Belen Barr RN Unavailable Farida Pride LPN Unavailable Unavailable Encounter Details Date Type Department Care Team (Late st Contact Info) Description 08/18/2022 Abstract [facility] [address] [facility] [address] [place] [address] Julio Pierce, PT [address] [facility] [place] [address] Social History Tobacco Use Types Packs/Day Years Used Date Smoking Tobacco: Former Cigarettes Q uit: 03/20/2012 Smokeless Tobacco: Never Tobacco Cessation:Counseling Given: Not Answered Alcohol Use Standard Drinks/Week Comments Never 0 (1 standard drink = 0.6 oz pur e alcohol) Comments Unknown Sex and Gender Information Value Date Recorded Sex Assigned at Not on file Legal Sex Female 6:59 PM EDT Gender Identity Not on file Sexual Orientation Not on file documented as of this encounter Plan of Treatment Not on file documented as of this encounter Visit Diagnoses Not on filedocumented in this encounter Care Teams Gas Engine Repairer Relationship Specialty Start Date End Date Jose Roberto Cleary MD [address] [facility] 110 [place] [address] PCP - ACO Reach 07/07/22 Jose Roberto Cleary MD [address] [address] PCP - General Family Medicine 08/03/22 Belen Barr, RN Clinical Advocate Family Medicine 03/22/24 05/07/24 Farida Pride LPN 05/07/24 documented as of this encounter
--- OUTSIDE RECORDS SUMMARY | 2024-07-18 15:26 | XMS_ITS | Encounter Summary ---
Author Organization [facility] Address [address] [facility] [place] [address] Care Team Providers Care Senior Integration Architect Name Role Phone Jose Roberto Cleary MD Unavailable Jose Roberto Cleary MD Primary Care Provider [phone] Belen Barr RN Unavailable [phone] Farida Pride LPN Unavailable Unavailable Encounter Details Date Type Department Care Team (Late st Contact Info) Description 12/20/2022 Abstract [facility] [address] [facility] 110 [place] [address] Jose Roberto Cleary MD [address] [facility] 110 [place] [address] Social History Tobacco Use Types Packs/Day Years [...] often do you attend chur ch or zoroastrianism services? 1 to 4 times per year 09/19/2022 Do you belong to any clubs o r organizations such as cheondoism groups, unions, fraternal or athletic groups, or [...] and heating? Not hard at all 09/19/2022 [facility] Occupat ional Health - Occupational Stress [...] place to sleep or slept in a skilled nursing (including now)? No 09/19/2022 Comments Unknown Sex and Gender Information Value Date Recorded Sex Assigned at Not on file Legal Sex Female 6:59 PM EDT Gender Identity Not on file Sexual Orientation Not on file documented as of this encounter Plan of Treatment Not on file documented as of this encounter Visit Diagnoses Not on filedocumented in this encounter Care Teams Senior Integration Architect Relationship Specialty Start Date End Date Jose Roberto Cleary MD [address] [facility] 110 [place] [address] PCP - ACO Reach 07/07/22 Jose Roberto Cleary MD [address] [facility] [address] [place] [address] PCP - General Family Medicine 08/03/22 Belen Barr, RN Clinical Advocate Family Medicine 03/22/24 05/07/24 Farida Pride LPN 05/07/24 documented as of this encounter
--- OUTSIDE RECORDS SUMMARY | 2024-07-18 15:26 | XMS_ITS | Encounter Summary ---
Author Organization [facility] Address [address] [facility] [place] [address] Care Team Providers Care Print Production Coordinator Name Role Phone Jose Roberto Cleary MD Unavailable Jose Roberto Cleary MD Primary Care Provider [phone] Belen Barr RN Unavailable Farida Pride LPN Unavailable Unavailable Encounter Details Date Type Department Care Team (Late st Contact Info) Description 05/11/2023 Abstract [facility] [address] [facility] 110 [place] [address] Jose Roberto Cleary MD 112 [facility] 110 [place], [place] [id number] Social History Tobacco Use Types Packs/Day Years [...] often do you attend chur ch or shinto services? 1 to 4 times per year 09/19/2022 Do you belong to any clubs o r organizations such as moravian groups, unions, fraternal or athletic groups, or [...] and heating? Not hard at all 09/19/2022 [facility] Occupat ional Health - [...] place to sleep or slept in a detention (including now)? No 09/19/2022 Comments Unknown Sex and Gender Information Value Date Recorded Sex Assigned at Not on file Legal Sex Female 6:59 PM EDT Gender Identity Not on file Sexual Orientation Not on file documented as of this encounter Plan of Treatment Not on file documented as of this encounter Visit Diagnoses Not on filedocumented in this encounter Care Teams Print Production Coordinator Relationship Specialty Start Date End Date Jose Roberto Cleary MD [address] [facility] 110 [place] [address] PCP - ACO Reach 07/07/22 Jose Roberto Cleary MD [address] [facility] 110 [place] [address] PCP - General Family Medicine 08/03/22 Belen Barr, RN Clinical Advocate Family Medicine 03/22/24 05/07/24 Farida Pride LPN 05/07/24 documented as of this encounter
--- OUTSIDE RECORDS SUMMARY | 2024-07-18 15:26 | XMS_ITS | Encounter Summary ---
Author Organization [facility] Address [address] [facility] [place] [address] Care Team Providers Care Credit Support Specialist Name Role Phone Jose Roberto Cleary MD Unavailable Jose Roberto Cleary MD Primary Care Provider [phone] Belen Barr RN Unavailable [phone] Farida Pride LPN Unavailable Unavailable Encounter Details Date Type Department Care Team (Late st Contact Info) Description 04/30/2024 Abstract [facility] 112 [facility] 110 [place] [address] Jose Roberto Cleary MD 112 [facility] 110 [place] [address] Social History Tobacco Use Types Packs/Day Years Used Date Smoking Tobacco: Former Cigarettes Q uit: 03/20/2012 Smokeless Tobacco: Never Alcohol Use Standard Drinks/Week Comments Never 0 (1 standard drink = 0.6 oz pur e alcohol) B1300 Health Literacy Answer Date Recor ded How often do you need to hav e someone help you when you read instructions, pamphlets, or other written material from your doctor or pharmacy? Sometimes 09/25/2023 Humiliation, Afraid, Rape, and Kick questionnair e [...] How often do you attend chur or evangelical services? 1 to 4 times per year 09/19/2022 Do you belong to any clubs o r organizations such as pentecostal groups, unions, fraternal or athletic groups, or [...] and heating? Not hard at all 09/19/2022 PHQ-2 Answer Date Recorded Patient Health Questionnaire-2 Score 0 04/18/2024 [facility] of Occupat ional Health - Occupational [...] place to sleep or slept in a assisted (including now)? No 09/19/2022 Comments Unknown Sex and Gender Information Value Date Recorded Sex Assigned at Not on file Legal Sex Female 6:59 PM EDT Gender Identity Not on file Sexual Orientation Not on file documented as of this encounter Plan of Treatment Not on file documented as of this encounter Visit Diagnoses Not on filedocumented in this encounter Care Teams Credit Support Specialist Relationship Specialty Start Date End Date Jose Roberto Cleary MD [address] [facility] 110 [place] [address] PCP - ACO Reach 07/07/22 Jose Roberto Cleary MD [address] [facility] [address] [place] [address] PCP - General Family Medicine 08/03/22 Belen Barr, RN Clinical Advocate Family Medicine 03/22/24 05/07/24 Farida Pride LPN 05/07/24 documented as of this encounter
--- OUTSIDE RECORDS SUMMARY | 2024-07-18 15:26 | XMS_ITS | Encounter Summary ---
Author Organization [facility] Address [address] [place] [address] Care Team Providers Care Pantograph Watcher Name Role Phone Jose Roberto Cleary MD Unavailable Jose Roberto Cleary MD Primary Care Provider [phone] Belen Barr RN Unavailable [phone] Farida Pride LPN Unavailable Unavailable Reason for Visit * Reason Comments Med Refill Encounter Details Date Type Department Care Team (Late st Contact Info) Description 09/19/2022 Refill [facility] [address] [place] [address] Erica Sierra PA [address] [facility] 110 [place] [address] Spondylosis without myelopathy or radiculopathy, [...] How often do you attend chur or worship services? 1 to 4 times per year 09/19/2022 Do you belong to any clubs o r organizations such as orthodox groups, unions, fraternal or athletic groups, or [...] and heating? Not hard at all 09/19/2022 [facility] of Occupat ional Health - Occupational Stress [...] place to sleep or slept in a snf (including now)? No 09/19/2022 Comments Unknown Sex and Gender Information Value Date Recorded Sex Assigned at Not on file Legal Sex Female 6:59 PM EDT Gender Identity Not on file Sexual Orientation Not on file documented as of this encounter Functional Status * Audit-C Score Answer Date of Assessment Author 0 09/19/2022 10:39 AM EDT Chhaya Flower LPN * Question Answer Date of Assessment Author Q1: How often do you have a drink containing alcohol? Never 09/19/2022 10:39 AM EDT Chhaya Flower L PN Q2: How many drinks containing alcohol do you have on a typical day when you are drinking? Patient does not drink 09/19/2022 10:39 AM EDT Chhaya Flower LPN Q3: How often do you have six or more drinks on one occasion? Never 09/19/2022 10:39 AM EDT Chhaya Flower L PN documented as of this encounter Miscellaneous Notes * Telephone Encounter - KASEY Guerra - 09/19/2022 12:54 PM EDT Please help pt get set up for medication follow up appt within the next month with Dr. Cleary. documented in this encounter Plan of Treatment Not on file documented as of this encounter Visit Diagnoses Diagnosis Spondylosis without myelopathy or radiculopathy, lumbar region Neuralgia and neuritis, unspecified documented in this encounter Care Teams Pantograph Watcher Relationship Specialty Start Date End Date Jose Roberto Cleary MD [address] [facility] 110 [place] [address] PCP - ACO Reach 07/07/22 Jose Roberto Cleary MD [address] [facility] 110 [place] [address] PCP - General Family Medicine 08/03/22 Belen Barr, RN Clinical Advocate Family Medicine 03/22/24 05/07/24 Farida Pride LPN 05/07/24 documented as of this encounter
--- OUTSIDE RECORDS SUMMARY | 2024-07-18 15:26 | XMS_ITS | Encounter Summary ---
Author Organization [facility] Address [address] [facility] [place] [address] Care Team Providers Care Stand In Name Role Phone Jose Roberto Cleary MD Unavailable Jose Roberto Cleary MD Primary Care Provider [phone] Belen Barr RN Unavailable [phone] Farida Pride LPN Unavailable Unavailable Encounter Details Date Type Department Care Team (Late st Contact Info) Description 03/15/2023 Orders Only [facility] [address] [place] 110 [place] [address] A, Unknown Practice [address] [place] [id number] Social History Tobacco Use Types Packs/Day Years [...] often do you attend chur ch or worship services? 1 to 4 times per year 09/19/2022 Do you belong to any clubs o r organizations such as temple groups, unions, fraternal or athletic groups, or [...] and heating? Not hard at all 09/19/2022 [facility] of Occupat ional Health - [...] place to sleep or slept in a penitentiary (including now)? No 09/19/2022 Comments Unknown Sex and Gender Information Value Date Recorded Sex Assigned at Not on file Legal Sex Female 6:59 PM EDT Gender Identity Not on file Sexual Orientation Not on file documented as of this encounter Plan of Treatment Not on file documented as of this encounter Procedures Procedure Name Priority Date/Time Associated Diagnosis Comments CT SCAN : ANGIOGRAM Routine 03/15/2023 1:07 PM EST [facility] Routine 03/15/2023 10:12 AM EST documented in this encounter Results * CT SCAN : ANGIOGRAM (03/15/2023 1:07 PM EST) Anatomical Region Laterality Modality Radiographic Kim ging us Unknown Practice A IMG XR PROCEDURES Final Resul t * [facility] (03/15/2023 10:12 AM EST) us Unknown Practice A LAB CHG PERFORMABLES Final Re sult documented in this encounter Visit Diagnoses Not on filedocumented in this encounter Care Teams Stand In Relationship Specialty Start Date End Date Jose Roberto Cleary MD [address] [facility] 110 [place] [address] PCP - ACO Reach 07/07/22 Jose Roberto Cleary MD [address] [facility] 110 [place] [address] PCP - General Family Medicine 08/03/22 Belen Barr, RN Clinical Advocate Family Medicine 03/22/24 05/07/24 Farida Pirde LPN 05/07/24 documented as of this encounter
--- OUTSIDE RECORDS SUMMARY | 2024-07-18 15:26 | XMS_ITS | Encounter Summary ---
Author Organization [facility] Address [address] [facility] [place] [address] Care Team Providers Care Drill Operator Pneumatic Name Role Phone Jose Roberto Cleary MD Unavailable Jose Roberto Cleary MD Primary Care Provider [phone] Belen Barr RN Unavailable [phone] Farida Pride LPN Unavailable Unavailable Encounter Details Date Type Department Care Team (Late st Contact Info) Description 01/19/2024 Abstract [facility] 112 [facility] 110 [place] [id number] Jose Roberto Cleary MD 112 [facility] 110 [place] [address] Social History Tobacco Use Types Packs/Day Years [...] How often do you attend chur or pentecostal services? 1 to 4 times per year 09/19/2022 Do you belong to any clubs o r organizations such as pentecostalism groups, unions, fraternal or athletic groups, or [...] Date Recorded Patient Health Questionnaire-2 Score 0 01/17/2024 [facility] Occupat ional Health - [...] on filedocumented in this encounter Care Teams Drill Operator Pneumatic Relationship Specialty Start Date End Date Jose Roberto Cleary MD [address] [facility] 110 [place] [address] PCP - ACO Reach 07/07/22 Jose Roberto Cleary MD [address] [facility] [address] [place] [address] PCP - General Family Medicine 08/03/22 Belen Barr, RN Clinical Advocate Family Medicine 03/22/24 05/07/24 Farida Pride LPN 05/07/24 documented as of this encounter
--- OUTSIDE RECORDS SUMMARY | 2024-07-18 15:26 | XMS_ITS | Encounter Summary ---
Author Organization [facility] Address [address] [facility] [place] [address] Care Team Providers Care Salon Designer Name Role Phone Jose Roberto Cleary MD Unavailable Jose Roberto Cleayr MD Primary Care Provider [phone] Belen Barr RN Unavailable [phone] Farida Pride LPN Unavailable Unavailable Encounter Details Date Type Department Care Team (Late st Contact Info) Description 09/21/2022 Abstract [facility] [address] [facility] 110 [place] [address] Jose Roberto Cleary MD [address] [facility] 110 [place] [address] Social History Tobacco Use Types [...] often do you attend chur ch or congregational services? 1 to 4 times per year 09/19/2022 Do you belong to any clubs o r organizations such as yazidi groups, unions, fraternal or athletic groups, or [...] and heating? Not hard at all 09/19/2022 [facility] Occupat ional Health - Occupational Stress [...] place to sleep or slept in a nursing home (including now)? No 09/19/2022 Comments Unknown Sex and Gender Information Value Date Recorded Sex Assigned at Not on file Legal Sex Female 6:59 PM EDT Gender Identity Not on file Sexual Orientation Not on file documented as of this encounter Plan of Treatment Not on file documented as of this encounter Visit Diagnoses Not on filedocumented in this encounter Care Teams Salon Designer Relationship Specialty Start Date End Date Jose Roberto Cleary MD [address] [facility] 110 [place] [address] PCP - ACO Reach 07/07/22 Jose Roberto Cleary MD [address] [facility] 110 [place] [address] PCP - General Family Medicine 08/03/22 Belen Barr, RN Clinical Advocate Family Medicine 03/22/24 05/07/24 Farida Pride LPN 05/07/24 documented as of this encounter
--- OUTSIDE RECORDS SUMMARY | 2024-07-18 15:26 | XMS_ITS | Encounter Summary ---
Author Organization [facility] Address [address] [place] [address] Care Team Providers Care Varying Exceptionalities Teacher Name Role Phone Jose Roberto Lehman MD Unavailable Jose Roberto Lehman MD Primary Care Provider [phone] Belen Barr RN Unavailable [phone] Farida Pride LPN Unavailable Unavailable Encounter Details Date Type Department Care Team (Late st Contact Info) Description 03/15/2023 Clinisync Result Encounter [facility] External Department Unsolicited Jose Roberto Lehman MD [address] [facility] 110 [place] [address] Social History Tobacco Use Types Packs/Day Years [...] often do you attend chur ch or buddhist services? 1 to 4 times per year 09/19/2022 Do you belong to any clubs o r organizations such as scientologist groups, unions, fraternal or athletic groups, or [...] and heating? Not hard at all 09/19/2022 [facility] Occupat ional Health - [...] Name Priority Date/Time Associated Diagnosis Comments CT ANGIO ABDOMEN PELVIS 03/15/2023 11:44 AM EST documented in this encounter Results * CT ANGIO ABDOMEN PELVIS (03/15/2023 11:44 AM EST) Anatomical Region Laterality Modality Other 03/15/2023 11:4 4 AM EST Narrative 03/15/2023 11:47 [place] [address] CT Scan Report Signed Patient: REBECA JIMENEZ MR#: [id number] : 1950 Acct:[id number] Age/Sex: 72 / F ADM Date: 03/15/23 Loc: LAB Attending Dr: JOSE ROBERTO LEHMAN Ordering Physician: JOSE ROBERTO LEHMAN Date of Service: 03/15/23 Procedure(s): CT angio abdomen pelvis Accession Number(s): [id number] cc: JOSE ROBERTO LEHMAN [place] [address] Patient Name: REBECA JIMENEZ MRN: [facility]:[id number] date: 1950 Sex: F Assigned Patient Location: LAB Current Patient Location: LAB Accession/Order Number: [id number] Exam Date: 03/15/2023 09:15 Report Date: 03/15/2023 11:44 At the request of: JOSE ROBERTO LEHMAN Procedure: CT angio abdomen pelvis CT angio abdomen pelvis, 03/15/2023 9:15 AM EST INDICATION: Abdominal Aortic Aneurysm I71.40 COMPARISON: CT angiography of the abdomen and pelvis 03/23/2022 TECHNIQUE: Axial images of the abdomen and pelvis were obtained with administration of IV contrast. Multiplanar reformatted images were generated and reviewed as needed. Dose reduction techniques were achieved by using automated exposure control and/or adjustment of mA and/or kV according to patient size and/or use of iterative reconstruction technique. FINDINGS: No consolidation or effusion. Simple hepatic cyst right hepatic lobe. Cholecystectomy. Pancreas, spleen and adrenals unremarkable. Symmetric nephrograms without evidence of obstruction. Subcentimeter hypodensities lower pole the left kidney, too small to characterize. No urolithiasis. No urinary bladder wall thickening or perivesicular fat stranding. Hysterectomy. No adnexal mass. Calcified atherosclerotic change within a tortuous ectatic aorta. Stable fusiform infrarenal abdominal aortic aneurysm 3.9 x 3.8 cm. No dissection. The celiac axis, SMA, renal arteries, RADHA, iliac and proximal femoral arteries are patent. Fusiform dilatation right common iliac artery 2.8 cm in diameter, previously 2.7 cm. No dissection. Small sliding hiatal hernia. No bowel obstruction or acute focal inflammation. No pneumatosis, pneumoperitoneum or ascites. No mesenteric or retroperitoneal lymphadenopathy. Hemangiomas T10, L1 and L3 vertebral bodies. Spondylosis. No acute fracture. CT/CT angio abdomen pelvis IMPRESSION: 1. Stable 3.9 x 3.8 cm infrarenal abdominal aortic aneurysm. No dissection. 2. 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 Electronically authenticated by: DARRYN MUÑIZ Date: 03/15/2023 11:44 Dictated By: Darryn Muñiz M.D. Signed By: 03/15/23 1147 DD/ 1144 TD/TT: Billing Machine Operator: Procedure Note Radiology, Radiologist, - 03/15/[address] [address] [address] Scan Report Signed Patient: REBECA JIMENEZ PMR#: [id number] : 1950Acct:[id number] Age/Sex: 72 / FADM Date: 03/15/23 Loc: LAB Attending Dr: JOSE ROBERTO LHEMAN Ordering Physician: JOSE ROBERTO LEHMAN Date of Service: 03/15/23 Procedure(s): CT angio abdomen pelvis Accession Number(s): [id number] cc: JOSE ROBERTO LEHMAN [address] [address] Patient Name: REBECA JIMENEZ MRN: [id number] date: 1950 Sex: F Assigned Patient Location: LAB Current Patient Location: LAB Accession/Order Number: [id number] Exam Date: 03/15/2023 09:15 Report Date: 03/15/2023 11:44 At the request of: JOSE ROBERTO LEHMAN Procedure: CT angio abdomen pelvis CT angio abdomen pelvis, 03/15/2023 9:15 AM EST INDICATION: Abdominal Aortic Aneurysm I71.40 COMPARISON: CT angiography of the abdomen and pelvis 03/23/2022 TECHNIQUE: Axial images of the abdomen and pelvis were obtained with administration of IV contrast. Multiplanar reformatted images weregenerated and reviewed as needed. Dose reduction techniques were achieved by using automated exposurecontrol and/or adjustment of mA and/or kV according to patient size and/or use of iterative reconstruction technique. FINDINGS: No consolidation or effusion. Simple hepatic cyst right hepatic lobe. Cholecystectomy. Pancreas, spleenand adrenals unremarkable. Symmetric nephrograms without evidence ofobstruction. Subcentimeter hypodensities lower pole the left kidney, too small to characterize. No urolithiasis. No urinary bladder wall thickening or perivesicular fat stranding. Hysterectomy. No adnexal mass. Calcified atherosclerotic change within a tortuous ectatic aorta. Stable fusiform infrarenal abdominal aortic aneurysm 3.9 x 3.8 cm. No dissection. The celiac axis, SMA, renal arteries, RADHA, iliac and proximal femoralarteries are patent. Fusiform dilatation right common iliac artery 2.8 cm indiameter, previously 2.7 cm. No dissection. Small sliding hiatal hernia. No bowel obstruction or acute focalinflammation. No pneumatosis, pneumoperitoneum or ascites. No mesenteric orretroperitoneal lymphadenopathy. Hemangiomas T10, L1 and L3 vertebral bodies. Spondylosis.No acute fracture. CT/CT angio abdomen pelvis IMPRESSION: 1. Stable 3.9 x 3.8 cm infrarenal abdominal aortic aneurysm. Nodissection. 2. 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 Electronically authenticated by: DARRYN MUÑIZ Date: 03/15/2023 11:44 Dictated By: Darryn Muñiz M.D. Signed By:03/15/23 1147 DD/ 1144 TD/TT: Billing Machine Operator: Jose Roberto Lehman MD [facility] Final Result documented in this encounter Visit Diagnoses Not on filedocumented in this encounter Care Teams Varying Exceptionalities Teacher Relationship Specialty Start Date End Date Jose Roberto Lehman MD [address] [address] PCP - ACO Reach 07/07/22 Jose Roberto Lehman MD [address] [address] PCP - General Family Medicine 08/03/22 Belen Barr, DELMAR Clinical Advocate Family Medicine 03/22/24 05/07/24 Farida Pride LPN 05/07/24 documented as of this encounter
--- OUTSIDE RECORDS SUMMARY | 2024-07-18 15:26 | XMS_ITS | Encounter Summary ---
Author Organization [facility] Address [address] [place] [address] Phone Care Team Providers Care Purchasing Agent Name Role Phone Jose Roberto Cleary MD Primary Care Provider [phone] Daniel Montano MD Unavailable [phone] Encounter Details Date Type Department Care Team (Late st Contact Info) Description 03/11/2024 Scanned Document [facility] [address] [place] [address] Scanning, Generic Provider Social History Tobacco Use Types Packs/Day Years [...] as of this encounter Plan of Treatment Upcoming Encounters Date Type Department Care Team (Late st Contact Info) Description 07/24/2025 12:30 PM EDT Office Visit [facility] [address] [facility] [address] [place] [id number] [place] [address] [place] [address] [address] [place] [id number] documented as of this encounter Visit Diagnoses Not on filedocumented in this encounter Additional Health Concerns Assessment Noted Time A fall risk assessment has been complete d for the patient 07/21/2023 11:10 AM EDT documented as of this encounter Care Teams Purchasing Agent Relationship Specialty Start Date End Date Jose Roberto Cleary MD 112 [facility] 110 [place] [address] PCP - General 08/14/18 [place] [address] [facility] [address] [place], [place] [id number] Multi Operation Machine Operator Nephrology 07/19/23 documented as of this encounter
--- OUTSIDE RECORDS SUMMARY | 2024-07-18 15:26 | XMS_ITS | Encounter Summary ---
Author Organization [facility] Address [address] [facility] [place] [address] Care Team Providers Care Concrete Hopper Operator Name Role Phone Jose Roberto Cleary MD Unavailable Jose Roberto Cleary MD Primary Care Provider [phone] Belen Barr RN Unavailable [phone] Farida Pride LPN Unavailable Unavailable Encounter Details Date Type Department Care Team (Late st Contact Info) Description 10/10/2022 Abstract [facility] [address] [place] [id number] Sreekanth Quiroz MD [address] [place] [address] Social History Tobacco Use Types Packs/Day Years [...] often do you attend chur ch or protestant services? 1 to 4 times per year 09/19/2022 Do you belong to any clubs o r organizations such as advent groups, unions, fraternal or athletic groups, or [...] and heating? Not hard at all 09/19/2022 [facility] of Occupat ional Health - Occupational [...] place to sleep or slept in a alf (including now)? No 09/19/2022 Comments Unknown Sex and Gender Information Value Date Recorded Sex Assigned at Not on file Legal Sex Female 6:59 PM EDT Gender Identity Not on file Sexual Orientation Not on file documented as of this encounter Plan of Treatment Not on file documented as of this encounter Visit Diagnoses Not on filedocumented in this encounter Care Teams Concrete Hopper Operator Relationship Specialty Start Date End Date Jose Roberto Cleary MD [address] [facility] 110 [place] [address] PCP - ACO Reach 07/07/22 Jose Roberto Cleary MD [address] [facility] 110 [place] [address] PCP - General Family Medicine 08/03/22 Belen Barr, RN Clinical Advocate Family Medicine 03/22/24 05/07/24 Farida Pride LPN 05/07/24 documented as of this encounter
--- OUTSIDE RECORDS SUMMARY | 2024-07-18 15:26 | XMS_ITS | Encounter Summary ---
Author Organization [facility] Address [facility] [place] [address] Care Team Providers Care Process Mold Technician Name Role Phone Jose Roberto Cleary MD Primary Care Provider [phone] Sreekanth Quiroz MD Unavailable Source Comments In the event this information is protected by the Federal Confidentiality of Alcohol and Drug AbusePatient Records regulations: The Federal rules restrict any use of the information to criminally investigate or prosecute any alcohol or drug abuse patient.[facility] Encounter Details Date Type Department Care Team (Late st Contact Info) Description 01/02/2022 Patient Msg Gastroenterology [address] [place] [id number] Taz Faith MD [address] [place] [address] One other thing Social History Tobacco Use Types Packs/Day Years Used Date Smoking Tobacco: Former Cigarettes Smokeless Tobacco: Never Alcohol Use Standard Drinks/Week [...] AM EDT Office Visit Vascular Surgery [address] [facility] [address] [place] [address] US CAROTID ARTERIES TORIN 11/18/2024 10:00 AM EDT Office Visit Vascular Surgery [address] [facility] 300 [place] [address] US ABD AORTA COMPLETE VAS 11/18/2024 11:00 AM EDT Office Visit Vascular Surg Dept [address] [facility] 300 [place] [address] Chris Esquivel MD [address] [address] 6 mth US f/u documented as of this encounter Visit Diagnoses Not on filedocumented in this encounter Care Teams Process Mold Technician Relationship Specialty Start Date End Date Jose Roberto Cleary MD [address] [address] PCP - General Family Medicine 03/12/15 Sreekanth Quiroz MD [address] [facility] 110 [place] [address] Referring Neurology 11/20/19 documented as of this encounter
--- OUTSIDE RECORDS SUMMARY | 2024-07-18 15:26 | XMS_ITS | Encounter Summary ---
Author Organization [facility] Address [address] [place] [address] Phone Care Team Providers Care Gas Golf Cart Repairer Name Role Phone Jose Roberto Cleary MD Primary Care Provider [phone] Daniel Montano MD Unavailable [phone] Encounter Details Date Type Department Care Team (Late st Contact Info) Description 07/24/2023 Scanned Document [facility] [address] [place] [place] [address] Scanning, Generic Provider Social History [...] Recorded In the last 10 days, have amira u been in contact with someone who was confirmed or suspected to have Coronavirus/COVID-19? No / Unsure 07/21/2023 11:04 AM EDT documented as of this encounter Plan of Treatment Upcoming Encounters Date Type Department Care Team (Late st Contact Info) Description 07/24/2025 12:30 PM EDT Office Visit [facility] [address] [facility] [address] [place] [address] [place] [address] [facility] [address] [place] [address] documented as of this encounter Visit Diagnoses Not on filedocumented in this encounter Additional Health Concerns Assessment Noted Time A fall risk assessment has been complete d for the patient 07/21/2023 11:10 AM EDT documented as of this encounter Care Teams Gas Golf Cart Repairer Relationship Specialty Start Date End Date Jose Roberto Cleary MD 112 [facility] 110 [place] [address] PCP - General 08/14/18 [place] [address] [facility] [address] [place] [address] Commercial Announcer Nephrology 07/19/23 documented as of this encounter
--- OUTSIDE RECORDS SUMMARY | 2024-07-18 15:26 | XMS_ITS | Encounter Summary ---
Author Organization [facility] Address [address] [facility] [place] [address] Care Team Providers Care Refrigeration Engineering Teacher Name Role Phone Jose Roberto Cleary MD Unavailable Jose Roberto Cleary MD Primary Care Provider [phone] Belen Barr RN Unavailable Farida Pride LPN Unavailable Unavailable Encounter Details Date Type Department Care Team (Late st Contact Info) Description 06/07/2023 Abstract [facility] [address] [facility] 110 [place] [address] Jose Roberto Cleary MD [address] [facility] 110 [place], [place] [id number] Social History Tobacco Use Types Packs/Day Years [...] any clubs o r organizations such as hinduism groups, unions, fraternal or athletic groups, or [...] and heating? Not hard at all 09/19/2022 [facility] of Occupat ional Health - [...] place to sleep or slept in a mcfp (including now)? No 09/19/2022 Comments Unknown Sex and Gender Information Value Date Recorded Sex Assigned at Not on file Legal Sex Female 6:59 PM EDT Gender Identity Not on file Sexual Orientation Not on file documented as of this encounter Plan of Treatment Not on file documented as of this encounter Visit Diagnoses Not on filedocumented in this encounter Care Teams Refrigeration Engineering Teacher Relationship Specialty Start Date End Date Jose Roberto Cleary MD [address] [facility] 110 [place] [address] PCP - ACO Reach 07/07/22 Jose Roberto Cleary MD [address] [facility] 110 [place] [address] PCP - General Family Medicine 08/03/22 Belen Barr, RN Clinical Advocate Family Medicine 03/22/24 05/07/24 Farida Pride LPN 05/07/24 documented as of this encounter
--- OUTSIDE RECORDS SUMMARY | 2024-07-18 15:26 | XMS_ITS | Encounter Summary ---
Author Organization [facility] Address [address] [facility] [place] [address] Care Team Providers Care Imaging Administrator Name Role Phone Jose Roberto Cleary MD Unavailable Jose Roberto Cleary MD Primary Care Provider [phone] Belen Barr RN Unavailable Farida Pride LPN Unavailable Unavailable Encounter Details Date Type Department Care Team (Late st Contact Info) Description 08/10/2023 Abstract [facility] [address] [facility] 110 [place] [address] Jose Roberto Cleary MD [address] [facility] 110 [place], [place] [id number] Social History Tobacco Use Types Packs/Day Years [...] any clubs o r organizations such as jainism groups, unions, fraternal or athletic groups, or [...] Date Recorded Patient Health Questionnaire-2 Score 0 08/07/2023 [facility] - Occupational Stress Questionnaire Answer Date Recorded [...] on filedocumented in this encounter Care Teams Imaging Administrator Relationship Specialty Start Date End Date Jose Roberto Cleary MD [address] [facility] 110 [place] [address] PCP - ACO Reach 07/07/22 Jose Roberto Cleary MD [address] [facility] [address] [place] [address] PCP - General Family Medicine 08/03/22 Belen Barr, RN Clinical Advocate Family Medicine 03/22/24 05/07/24 Farida Pride LPN 05/07/24 documented as of this encounter
--- OUTSIDE RECORDS SUMMARY | 2024-07-18 15:26 | XMS_ITS | Encounter Summary ---
Author Organization [facility] Address [address] [facility] [place] [address] Care Team Providers Care Gravity Flow Irrigator Name Role Phone Jose Roberto Cleary MD Unavailable Jose Roberto Cleary MD Primary Care Provider [phone] Belen Barr RN Unavailable [phone] Farida Pride LPN Unavailable Unavailable Encounter Details Date Type Department Care Team (Late st Contact Info) Description 12/20/2022 Abstract [facility] [address] [facility] 110 [place] [address] Jose Roberto Cleary MD [address] [place] [facility] 110 [place] [address] Social History Tobacco Use Types [...] often do you attend chur ch or uatsdin services? 1 to 4 times per year 09/19/2022 Do you belong to any clubs o r organizations such as synagogue groups, unions, fraternal or athletic groups, or [...] and heating? Not hard at all 09/19/2022 [facility] of Occupat ional Health - Occupational [...] place to sleep or slept in a chcf (including now)? No 09/19/2022 Comments Unknown Sex and Gender Information Value Date Recorded Sex Assigned at Not on file Legal Sex Female 6:59 PM EDT Gender Identity Not on file Sexual Orientation Not on file documented as of this encounter Plan of Treatment Not on file documented as of this encounter Visit Diagnoses Not on filedocumented in this encounter Care Teams Gravity Flow Irrigator Relationship Specialty Start Date End Date Jose Roberto Cleary MD [address] [facility] 110 [place] [address] PCP - ACO Reach 07/07/22 Jose Roberto Cleary MD [address] [facility] 110 [place] [address] PCP - General Family Medicine 08/03/22 Belen Barr, RN Clinical Advocate Family Medicine 03/22/24 05/07/24 Farida Pride LPN 05/07/24 documented as of this encounter
--- OUTSIDE RECORDS SUMMARY | 2024-07-18 15:26 | XMS_ITS | Clinical Summary ---
Author Organization [facility] Address [address] [place] [address] Phone Care Team Providers Care Chrome Polisher Name Role Phone Jose Roberto Cleary MD Primary Care Provider [phone] Daniel Montano MD Unavailable [phone] Allergies Active Allergy Reactions Criticality Noted Date Comments Ciprofloxacin Other Medium 11/20/2022 neuropathy Metronidazole Other Medium 11/20/2022 neuropathy Penicillins Other Medium 11/20/2022 diaphoresis Medications cetirizine (ZyrTEC) 10 mg tablet Take 1 tablet (10 mg) by mouth once daily as needed. Active ALPRAZolam XR (Xanax XR) 1 mg 24 hr tablet Take 1 tablet (1 mg) by mouth once daily. Active docusate sodium (Colace) 100 mg tablet Take 1 tablet (100 mg) by mouth 2 times a day as needed. Active folic acid (Folvite) 1 mg tablet Take 1 tablet (1 mg) by mouth once daily. Active gabapentin (Neurontin) 600 mg tablet Take 1 tablet (600 mg) by mouth 2 times a day. one tab in the am and 2 tabs in the pm Active omeprazole (PriLOSEC) [address] capsule Take 1 capsule (40 mg) by mouth once daily. Active Synthroid 200 mcg tablet Take 1 tablet (200 mcg) by mouth once daily. except 1/2 tab on Mon and Monday Active traMADol (Ultram) 50 mg tablet Take 1 tablet (50 mg) by mouth 2 times a day. Active b complex vitamins (Vitamins B Complex) capsule Take 1 capsule by mouth once daily. Active furosemide (Lasix) 20 mg tablet Take 1 tablet (20 mg) by mouth once daily. prn Active amLODIPine (Norvasc) 10 mg tabletIndication s:Essential (primary) hypertension TAKE 1 TABLET DAILY 90 tablet 3 09/19/19 24 Active Additional Information Patient taking differently: 5 mgoral Daily, Reported on 07/18/2024 spironolactone (Aldactone) 25 mg tablet Take 1 tablet (25 mg) by mouth once daily. Active potassium chloride CR 20 mEq ER tabletIndication s:Essential hypertension Take 1 tablet (20 mEq) by mouth 2 times a day. 180 tablet 3 07/24/19 24 025 Discontin ued(Med List Cleanup) Active Problems Problem Noted Date Diagnosed Date CKD (chronic kidney disease) stage 2, GFR 60-89 ml/min 11/22/2022 Overview (11/22/2022): Patient's most recent GFR is 60, and that was from July 2021. We will repeat blood work. Potassium is at target at that time. Abdominal aortic aneurysm 11/20/2022 Dizziness 11/20/2022 Edema 11/20/2022 Essential hypertension 11/20/2022 Assessment & Plan (11/22/2022 10:04 AM EDT): Patient is new to this provider. Blood pressure is at target in office but patient reports that her blood pressure has historically been difficult to manage. Dr. Montano follows her for hypertension and kidney disease, [...] this note will be sent to Dr. Montano for further recommendations. Patient will keep a log of blood pressures outside the office environment. Hypokalemia 11/20/2022 PVC (premature ventricular contraction) 11/21/19 23 Assessment & Plan (11/22/2022 10:05 AM EDT): Patient would benefit from further testing. She [...] test results. Class 1 obesity with body ma ss index (BMI) of 32.0 to 32.9 in adult 11/20/2022 Assessment & Plan (11/22/2022 10:06 AM EDT): Her BMI puts her in the overweight category, she remains fairly active, actually her weight is not too bad for her age, I reinforced the need for heart healthy lifestyle. Former smoker 11/20/2022 Assessment & Plan (11/22/2022 10:09 AM EDT): Encouraged patient to continue to abstain from cigarettes. Overweight with body mass in dex (BMI) of 26 to 26.9 in adult 11/20/2022 Resolved Problems Problem Noted Date Diagnosed Date Resolved Date CKD (chronic kidney disease) , stage III (Multi) 11/20/2022 11/22/2022 Encounters Date Type Department Care Team Description 07/18/2024 12:00 PM EDT Office Visit [facility] [address] [facility] [address] [place] [phone] Daniel Montano MD Essential hypertension (Primary Dx) 07/18/2024 Travel from Last 3 Months Immunizations Immunization Administration Dates Next Due Flu vaccine (IIV4), preservative free *Check age /dose* 12/04/2020 Flu vaccine, quadrivalent, h igh-dose, preservative free, age 65y+ (FLUZONE) 03/23/2022 Flu vaccine, trivalent, pres ervative free, no egg protein, age 6 months or greater (Flucelvax) 12/21/2018 Influenza, Seasonal, Quadrivalent, Adjuvanted Influenza, Unspecified 11/13/2018 Influenza, seasonal, injectable 11/14/2019 Family History Medical History Relation Name Comments cardiomegaly Father cerebellar disease Mother Relation Name Status Comments Father Mother Social History Tobacco Use Types Packs/Day Years Used Date Smoking Tobacco: Former Cigarettes Q uit: 2002 Smokeless Tobacco: Never Tobacco Cessation:Counseling Given: Not [...] No / Unsure 07/18/2024 12:35 PM EDT Last Filed Vital Signs Vital Sign Reading Time Taken Comments Blood Pressure 128/91 07/18/2024 1:28 PM EDT Pulse 88 07/18/2024 1:28 PM EDT Temperature 36.2 C (97.2 F) 09/20/2022 12:51 PM EDT Respiratory Rate - - Oxygen Saturation - - Inhaled Oxygen Concentration - - Weight 85.7 kg (189 lb) 07/18/2024 1:28 PM EDT Height 160 cm (5' 3 ) 07/18/2024 1:28 PM EDT Body Mass Index 33.48 07/18/2024 1:28 PM EDT Plan of Treatment Upcoming Encounters Date Type Department Care Team (Late st Contact Info) Description 07/24/2025 12:30 PM EDT Office Visit [facility] [address] [facility] [address] [place] [address] [place] [address] [facility] [address] [place], [place] [phone] Health Maintenance Due Date Last Done Comments Bone Density Scan 1950 CT Colonography 1950 FIT-DNA (Cologuard) 1950 FIT 1950 Lipid Panel 1950 TSH Level 1950 Hepatitis C Screening 12/09/1967 CKD: Urine Protein Screening 1968 Hepatitis A Vaccines (1 of 2 - Risk 2-dose series) 1968 Pneumococcal Vaccine (1 of 2 - PCV) 1968 DTaP/Tdap/Td Vaccines (1 - Tdap) 12/09/1971 Mammogram 1989 Zoster Vaccines (1 of 2) 12/09/1999 Hepatitis B Vaccines (1 of 3 - Risk 3-dose series) 2009 RSV High Risk: (Elderly (60+) or Population) (1 - Risk 60-74 years 1-dose series) 2009 COVID-19 Vaccine ( - season) 2023 Medicare Annual Wellness Visit (AWV) 08/07/2024 08/07/2023, 06/14/2022, 02/02/2021, Additional history exists Sigmoidoscopy 10/26/2027 10/25/2022, 12/06/2021 Colonoscopy 10/25/2032 10/25/2022, 02/13, 12/06/2021 Colorectal Cancer Screening 10/25/2032 Irritable Bowel Syndrome Discontinued 023, 03/03/2022, 12/06/2021, Additional history exists Influenza Vaccine Completed 01/17/2024, , 12/04/2020, Additional history exists HIB Vaccines Aged Out No longer eligi ble based on patient's age to complete this topic HPV Vaccines Aged Out No longer eligi ble based on patient's age to complete this topic IPV Vaccines Aged Out No longer eligi ble based on patient's age to complete this topic Meningococcal Vaccine Aged Out No dima joyce eligible based on patient's age to complete this topic Rotavirus Vaccines Aged Out No longer eligible based on patient's age to complete this topic Insurance MEDICARE PART A AND B ANTHEM MEDICARE SELECT SUPPLEMENT Care Teams Chrome Polisher Relationship Specialty Start Date End Date Jose Roberto Cleary MD 112 [facility] [address] [place] [address] PCP - General 08/14/18 [place] [address] [facility] [address] [place] [address] Legal Analyst Nephrology 07/19/23
--- OUTSIDE RECORDS SUMMARY | 2024-07-18 15:26 | XMS_ITS | Encounter Summary ---
Author Organization [facility] Address [address] [place] [address] Phone Care Team Providers Care Counter Roller Name Role Phone Jose Roberto Cleary MD Primary Care Provider [phone] Daniel Montano MD Unavailable [phone] Encounter Details Date Type Department Care Team (Late st Contact Info) Description 11/20/2023 Scanned Document [facility] [address] [place] [place] [address] Scanning, Generic Provider Social History [...] Description 07/24/2025 12:30 PM EDT Office Visit [facility] [address] [facility] [address] [place] [phone] Daniel Montano [place] [address] [place] [address] [address] [place] [id number] documented as of this encounter Visit Diagnoses Not on filedocumented in this encounter Additional Health Concerns Assessment Noted Time A fall risk assessment has been complete d for the patient 07/21/2023 11:10 AM EDT documented as of this encounter Care Teams Counter Roller Relationship Specialty Start Date End Date Jose Roberto Cleary MD 112 [facility] 110 [place] [address] PCP - General 08/14/18 [place] [address] [facility] [address] [place], [place] [phone] Bi Technical Lead Nephrology 07/19/23 documented as of this encounter
--- OUTSIDE RECORDS SUMMARY | 2024-07-18 15:26 | XMS_ITS | Encounter Summary ---
Author Organization [facility] Address [address] [place] [address] Phone Care Team Providers Care Linoleum Mechanic Name Role Phone Jose Roberto Cleary MD Primary Care Provider [phone] Daniel Montano MD Unavailable [phone] Encounter Details Date Type Department Care Team (Late st Contact Info) Description 07/31/2023 Scanned Document [facility] [address] [place] [address] Scanning, Generic Provider Social History [...] Description 07/24/2025 12:30 PM EDT Office Visit [facility] [address] [facility] [address] [place] [phone] [place] [address] [facility] [address] [place] [address] documented as of this encounter Visit Diagnoses Not on filedocumented in this encounter Additional Health Concerns Assessment Noted Time A fall risk assessment has been complete d for the patient 07/21/2023 11:10 AM EDT documented as of this encounter Care Teams Linoleum Mechanic Relationship Specialty Start Date End Date Jose Roberto Cleary MD 112 [facility] 110 [place] [address] PCP - General 08/14/18 [place] [address] [facility] [address] [place] [address] Promotions Assistant Sales Marketing Nephrology 07/19/23 documented as of this encounter
--- OUTSIDE RECORDS SUMMARY | 2024-07-18 15:26 | XMS_ITS | Encounter Summary ---
Author Organization [facility] Address [address] [place] [address] Care Team Providers Care Auto Body Repairer Fiberglass Name Role Phone Jose Roberto Cleary MD Unavailable Jose Roberto Cleary MD Primary Care Provider [phone] Belen Barr RN Unavailable [phone] Farida Pride LPN Unavailable Unavailable Encounter Details Date Type Department Care Team (Late st Contact Info) Description 10/25/2022 Clinisync Result Encounter [facility] External Department Unsolicited Provider, Generic External Data Social History Tobacco Use Types Packs/Day Years [...] often do you attend chur ch or anglican services? 1 to 4 times per year 09/19/2022 Do you belong to any clubs o r organizations such as adventism groups, unions, fraternal or athletic groups, or [...] and heating? Not hard at all 09/19/2022 [facility] - Occupational Stress [...] Procedure Name Priority Date/Time Associated Diagnosis Comments [facility] SUR[facility]ICAL [facility] Routine 10/25/2022 11:06 AM EDT COLONOSCOPY 10/25/2022 10:08 AM EDT documented in this encounter Results * [facility] SURG[facility]OLOG[facility] (10/25/2022 11:06 AM EDT) [facility] CASE REPORT [facility] Comment: Surgical Pathology Report Case: [id number] Authorizing Provider: Gee Horner MD Collected: 10/25/2022 11:06 AM Ordering Location: Gastroenterology Received: 10/25/2022 06:28 PM Pathologist: Vishnu Carlton MD Specimen: ASCENDING COLON POLYP [facility] FINAL DIAGNOSIS [facility] Comment: A. Ascending colon, polypectomy: - Fragments of tubular adenoma. GROSS DESCRIPTION [facility] Comment: A. ASCENDING COLON POLYP Received in formalin are multiple pieces of pascual, soft tissue aggregating to 1.5 x 0.2 x 0.2 cm. Totally submitted in one cassette. Gross examination performed at [facility], [address] [place], [place] [address], [place] [address] October 26, 2022 12:06 AM [facility] FINAL PERFORMING LAB [facility] Comment: Diagnostic interpretation performed at [facility], [address] [facility], [place] [address] CLIA# [id number] Computer Repairer: Gloria Sanz M.D. 10/25/2022 11:0 6 AM EDT 10/27/2022 8:31 AM EDT Narrative [facility] - 10/27/2022 9:58 AM EDT Specimen Type: TISSUE SPECIMEN Ordering Facility: [facility] Address: [address] [place] [id number] Original Ordering Provider: GEE HORNER us Generic External Data Provider PEGGY arellano Result Performing Organization Address City/State/[facility] Co de Phone Number [facility] [address] [phone] [facility] [address] [facility] [address] [place] [address] * COLONOSCOPY (10/25/2022 10:08 AM EDT) Anatomical Region Laterality Modality Other 10/25/2022 10:0 8 AM EDT Narrative 10/25/2022 11:34 AM EDT Q3 Patient Name: Rebeca Jimenez Procedure Date: 10/25/2022 10:08 AM Date of : 1950 Admit Type: Outpatient Age: 71 Gender: Female Note Status: Finalized Attending MD: Gee Horner MD Procedure: Colonoscopy Indications: High risk colon cancer surveillance: Personal history of colonic polyps Providers: Gee Horner MD Patient Profile: This is a 71 [...] for surveillance. Procedure Code(s): --- Professional --- 44192, Colonoscopy, flexible; with removal of tumor(s), polyp(s), or other lesion(s) by snare technique Diagnosis Code(s): --- Professional --- Z12.11, Encounter for screening for malignant neoplasm of colon Z86.010, Personal history of colonic polyps Z98.890, Other specified postprocedural states D12.2, Benign neoplasm of ascending colon CPT copyright 2020 [employer]. All rights reserved. Attending Participation: I personally performed the entire procedure. Scope In: 10:37:51 AM Scope Out: 11:08:30 AM MD Gee Rowe MD 10/25/2022 11:34:00 AM This report has been signed electronically by Gee Horner MD Number of Addenda: 0 Note Initiated On: 10/25/2022 10:08 AM Procedure Note Radiology, Radiologist, - 10/25/2022 Q3 Patient Name: Rebeca Jimenez Procedure Date: 10/25/2022 10:08 AM Date of : 1950 Admit Type: Outpatient Age: 71 Gender: Female Note Status: Finalized Attending MD: Gee Horner MD Procedure: Colonoscopy Indications: High risk colon cancer surveillance: Personal history of colonic polyps Providers: Gee Horner MD Patient Profile: This is a 71 [...] for surveillance. Procedure Code(s): --- Professional --- 28608, Colonoscopy, flexible; with removal of tumor(s), polyp(s), or other lesion(s) by snare technique Diagnosis Code(s): --- Professional --- Z12.11, Encounter for screening for malignant neoplasm of colon Z86.010, Personal history of colonic polyps Z98.890, Other specified postprocedural states D12.2, Benign neoplasm of ascending colon CPT copyright 2020 [employer]. All rights reserved. Attending Participation: I personally performed the entire procedure. Scope In: 10:37:51 AM Scope Out: 11:08:30 AM MD Gee Rowe MD 10/25/2022 11:34:00 AM This report has been signed electronically by Gee Horner MD Number of Addenda: 0 Note Initiated On: 10/25/2022 10:08 AM Generic External Data Provider [facility] Final Result documented in this encounter Visit Diagnoses Not on filedocumented in this encounter Care Teams Auto Body Repairer Fiberglass Relationship Specialty Start Date End Date Jose Roberto Cleary MD [address] [facility] [address] [place] [address] PCP - ACO Reach 07/07/22 Jose Roberto Cleary MD [address] [facility] 110 [place] [address] PCP - General Family Medicine 08/03/22 Belen Barr, RN Clinical Advocate Family Medicine 03/22/24 05/07/24 Farida Pride LPN 05/07/24 documented as of this encounter
--- OUTSIDE RECORDS SUMMARY | 2024-07-18 15:26 | XMS_ITS | Encounter Summary ---
Author Organization [facility] Address [address] [place] [address] Phone Care Team Providers Care Wood Turner Name Role Phone Jose Roberto Cleary MD Primary Care Provider [phone] Daniel Montano MD Unavailable [phone] Encounter Details Date Type Department Care Team (Latest Contact Info) Description 07/18/2024 Travel Social History Tobacco Use Types Packs/Day Years [...] PM EDT documented as of this encounter Plan of Treatment Upcoming Encounters Date Type Department Care Team (Late st Contact Info) Description 07/24/2025 12:30 PM EDT Office Visit [facility] [address] [facility] [address] [place] [address] Daniel Montano [place] [address] [place] [address] [address] [place] [address] documented as of this encounter Visit Diagnoses Not on filedocumented in this encounter Additional Health Concerns Assessment Noted Time A fall risk assessment has been complete d for the patient 07/18/2024 1:26 PM EDT documented as of this encounter Care Teams Wood Turner Relationship Specialty Start Date End Date Jose Roberto Cleary MD 112 [facility] 110 [place] [address] PCP - General 08/14/18 [place] [address] [facility] [address] [place] [address] Music Copyist Nephrology 07/19/23 documented as of this encounter
--- OUTSIDE RECORDS SUMMARY | 2024-07-18 15:27 | XMS_ITS | Encounter Summary ---
Author Organization [facility] Address [facility] [place] [address] Care Team Providers Care Vessel Operator Name Role Phone Jose Roberto Cleary MD Primary Care Provider [phone] Sreekanth Quiroz MD Unavailable Source Comments In the event this information is protected by the Federal Confidentiality of Alcohol and Drug AbusePatient Records regulations: The Federal rules restrict any use of the information to criminally investigate or prosecute any alcohol or drug abuse patient.[facility] Encounter Details Date Type Department Care Team (Late st Contact Info) Description 12/23/2021 Get Medical Advice Gastroenterology [address] [id number] Taz Faith MD [address] [place] [address] Test results and follow up appointment Social History Tobacco Use Types Packs/Day Years [...] AM EDT Office Visit Vascular Surgery [address] [facility] [address] [place] [address] US CAROTID ARTERIES TORIN 11/18/2024 10:00 AM EDT Office Visit Vascular Surgery [address] [facility] [address] [place] [address] US ABD AORTA COMPLETE VAS 11/18/2024 11:00 AM EDT Office Visit Vascular Surg Dept [address] [facility] [address] [place] [address] Chris Esquivel MD [address] [address] 6 mth US f/u documented as of this encounter Visit Diagnoses Diagnosis Adenomatous rectal polyp- Primary Benign neoplasm of rectum and anal canal Rectal mass Other symptoms involving digestive system documented in this encounter Care Teams Vessel Operator Relationship Specialty Start Date End Date Jose Roberto Cleary MD [address] [address] PCP - General Family Medicine 03/12/15 Sreekanth Quiroz MD [address] [address] Referring Neurology 11/20/19 documented as of this encounter
--- OUTSIDE RECORDS SUMMARY | 2024-07-18 15:27 | XMS_ITS | Encounter Summary ---
Author Organization [facility] Address [address] [place] [address] Care Team Providers Care Internship Name Role Phone Jose Roberto Cleary MD Primary Care Provider [phone] Sreekanth Quiroz MD Unavailable Source Comments In the event this information is protected by the Federal Confidentiality of Alcohol and Drug AbusePatient Records regulations: The Federal rules restrict any use of the information to criminally investigate or prosecute any alcohol or drug abuse patient.[facility] Encounter Details Date Type Department Care Team (Late st Contact Info) Description 09/19/2022 Get Medical Advice Gastroenterology [address] [address] Debbi Hammond APRN.CALENDER ROLL PRESS OPERATOR [address] [place] [address] Colonoscopy prep Social History Tobacco Use Types Packs/Day Years Used Date Smoking Tobacco: Former Cigarettes Q uit: 2012 Smokeless Tobacco: Never Alcohol Use Standard Drinks/Week Comments Never 0 (1 standard drink = 0.6 oz pur e alcohol) Area Deprivation Index Answer Date Dann rded National Score (1-100), lower number is lower ri 73 02/25/2022 State Score (1-10), lower number is lower risk N ot on file 02/25/2022 Data from: https://www.neighborhoodatlas.medicine.[facility].edu/. Last address used for calculation [address] 02/25/2022 Comments No Sex and Gender Information Value Date Recorded Sex Assigned at Not on file Legal Sex Female 11:20 AM EST Gender Identity Not on file Sexual Orientation Not on file documented as of this encounter Plan of Treatment Upcoming Encounters Date Type Department Care Team (Late st Contact Info) Description 11/18/2024 9:00 AM EDT Office Visit Vascular Surgery [address] [place] [address] US CAROTID ARTERIES TORIN 11/18/2024 10:00 AM EDT Office Visit Vascular Surgery [address] [place] [address] US ABD AORTA COMPLETE VAS 11/18/2024 11:00 AM EDT Office Visit Vascular Surg Dept [address] [place] [address] [address] [place] [address] Chris Esquivel MD [address] [place] [address] 6 mth [place] f/u documented as of this encounter Visit Diagnoses Not on filedocumented in this encounter Care Teams Internship Relationship Specialty Start Date End Date Jose Roberto Cleary MD [address] [facility] [address] [place] [address] PCP - General Family Medicine 03/12/15 Sreekanth Quiroz MD [address] [facility] [address] [place] [address] Referring Neurology 11/20/19 documented as of this encounter
--- OUTSIDE RECORDS SUMMARY | 2024-07-18 15:27 | XMS_ITS | Encounter Summary ---
Author Organization [facility] Address [address] [place] [address] Care Team Providers Care Phone Circuit Operator Name Role Phone Monika Lehman MD Unavailable Monika Lehman MD Primary Care Provider [phone] Belen Barr RN Unavailable [phone] Farida Pride LPN Unavailable Unavailable Encounter Details Date Type Department Care Team (Late st Contact Info) Description 02/01/2023 Clinisync Result Encounter [facility] External Department Unsolicited [...] often do you attend chur ch or gnosticist services? 1 to 4 times per year 09/19/2022 Do you belong to any clubs o r organizations such as judaism groups, unions, fraternal or athletic groups, or [...] Procedure Name Priority Date/Time Associated Diagnosis Comments XR LUMBAR SPINE 6V W BENDING 02/01/2023 8:07 AM EST documented in this encounter Results * XR LUMBAR SPINE 6V W BENDING (02/01/2023 8:07 AM EST) Anatomical Region Laterality Modality Other 02/01/2023 8:07 AM EST Narrative 02/01/2023 8:09 AM EST [place] [id number] XRay Report Signed Patient: REBECA JIMENEZ MR#: [id number] : 1950 Acct:[id number] Age/Sex: 72 / F ADM Date: 01/31/23 Loc: RAD Attending Dr: AMAN ANDRES Ordering Physician: AMAN ANDRES Date of Service: 01/31/23 Procedure(s): XR lumbar spine 6V w bending Accession Number(s): [id number] cc: MONIKA LEHMAN ; AMAN ANDRES [place] [id number] Patient Name: REBECA JIMENEZ MRN: [id number] date: 1950 Sex: F Assigned Patient Location: RAD Current Patient Location: Accession/Order Number: [id number] Exam Date: 01/31/2023 11:58 Report Date: 02/01/2023 08:07 At the request of: AMAN ANDRES Procedure: XR lumbar spine 6V w bending PROCEDURE: XR lumbar spine 6V w bending DATE: 01/31/2023 10:58 AM [facility] RIPPER COMPARISONS: CT abdomen and pelvis 03/23/2022 CLINICAL INDICATION: 72 years Female Lumbar Pain M54.5 FINDINGS: There is diffuse bone demineralization. There is no evidence of fractures. There is multilevel intervertebral disc space degenerative changes most prominent L2-L3. There is moderate mid and lower lumbar spine facet degenerative changes. There is no evidence of subluxation. Specifically, there is no evidence of dynamic subluxation noted on lateral flexion and extension views. As noted on previous CT, there is evidence of fusiform abdominal aortic aneurysm. Please see previous CT from 03/23/2022. XR/XR lumbar spine 6V w bending IMPRESSION: 1. Bone demineralization 2. Mild to moderate degenerative spondylosis stable from 03/23/2022 3. No evidence of dynamic subluxation on these images 4. Fusiform abdominal aortic aneurysm. Electronically authenticated by: SCOTTIE GOMEZ Date: 02/01/2023 08:07 Dictated By: Scottie Gomez M.D. Signed By: 02/01/23 08 DD/ 08 TD/TT: Cancer Program Coordinator: Procedure Note Radiology, Radiologist, MD - 02/01/2023 [place] [address] XRay Report Signed Patient: REBECA JIMENEZ PMR#: [id number] : 1950Acct:[id number] Age/Sex: 72 / FADM Date: 01/31/23 Loc: RAD Attending Dr: AMAN ANDRES Ordering Physician: AMAN ANDRES Date of Service: 01/31/23 Procedure(s): XR lumbar spine 6V w bending Accession Number(s): [id number] cc: MONIKA LEHMAN ; AMAN ANDRES [place] [id number] Patient Name: REBECA JIMENEZ MRN: [facility]:[id number] date: 1950 Sex: F Assigned Patient Location: [facility] Current Patient Location: Accession/Order Number: [id number] Exam Date: 01/31/2023 11:58 Report Date: 02/01/2023 08:07 At the request of: AMAN MCKENNA Procedure: XR lumbar spine 6V w bending PROCEDURE: XR lumbar spine 6V w bending DATE: 01/31/2023 10:58 AM G[facility] RIPPER COMPARISONS: CT abdomen and pelvis 03/23/2022 CLINICAL INDICATION: 72 years Female Lumbar Pain M54.5 FINDINGS: There is diffuse bone demineralization. There is no evidence of fractures. There is multilevel intervertebral disc space degenerative changes most prominent L2-L3. There is moderate mid and lower lumbar spine facet degenerative changes. There is no evidence of subluxation. Specifically, there is no evidence of dynamic subluxation noted on lateral flexion and extension views. As noted on previous CT, there is evidence of fusiform abdominal aortic aneurysm. Please see previous CT from 03/23/2022. XR/XR lumbar spine 6V w bending IMPRESSION: 1. Bone demineralization 2. Mild to moderate degenerative spondylosis stable from 03/23/2022 3. No evidence of dynamic subluxation on these images 4. Fusiform abdominal aortic aneurysm. Electronically authenticated by: SCOTTIE GOMEZ Date: 02/01/2023 08:07 Dictated By: Scottie Gomez M.D. Signed By:02/01/23 0809 DD/ 08 TD/TT: Cancer Program Coordinator: Generic External Data Provider [facility] Final Result documented in this encounter Visit Diagnoses Not on filedocumented in this encounter Care Teams Phone Circuit Operator Relationship Specialty Start Date End Date Monika Lehman MD [address] [facility] [address] [place] [address] PCP - ACO Reach 07/07/22 Monika Lehman MD [address] [facility] [address] [place] [address] PCP - General Family Medicine 08/03/22 Belen Barr RN Clinical Advocate Family Medicine 03/22/24 05/07/24 Farida Pride LPN 05/07/24 documented as of this encounter
--- OUTSIDE RECORDS SUMMARY | 2024-07-18 15:27 | XMS_ITS | Encounter Summary ---
Author Organization [facility] Address [address] [facility] [place] [address] Care Team Providers Care Tours Captain Name Role Phone Jose Roberto Cleary MD Unavailable Jose Roberto Cleary MD Primary Care Provider [phone] Belen Barr RN Unavailable [phone] Farida Pride LPN Unavailable Unavailable Encounter Details Date Type Department Care Team (Late st Contact Info) Description 02/01/2023 Orders Only [facility] [address] [place] [place] [address] A, Unknown Practice [address] [place] [id number] Social History Tobacco Use Types Packs/Day Years [...] often do you attend chur ch or hinduism services? 1 to 4 times per year 09/19/2022 Do you belong to any clubs o r organizations such as quaker groups, unions, fraternal or athletic groups, or [...] place to sleep or slept in a prison (including now)? No 09/19/2022 Comments Unknown Sex and Gender Information Value Date Recorded Sex Assigned at Not on file Legal Sex Female 6:59 PM EDT Gender Identity Not on file Sexual Orientation Not on file documented as of this encounter Plan of Treatment Not on file documented as of this encounter Procedures Procedure Name Priority Date/Time Associated Diagnosis Comments X-RAY : SPINE, LUMBAR Routine 02/01/2023 8:33 AM EST documented in this encounter Results * X-RAY : SPINE, LUMBAR (02/01/2023 8:33 AM EST) Anatomical Region Laterality Modality Radiographic Kim ging us Unknown Practice A IMG XR PROCEDURES Final Resul t documented in this encounter Visit Diagnoses Not on filedocumented in this encounter Care Teams Tours Captain Relationship Specialty Start Date End Date Jose Roberto Cleary MD [address] [address] PCP - ACO Reach 07/07/22 Jose Roberto Cleary MD [address] [facility] [address] [place] [address] PCP - General Family Medicine 08/03/22 Belen Barr, RN Clinical Advocate Family Medicine 03/22/24 05/07/24 Farida Pride LPN 05/07/24 documented as of this encounter
--- OUTSIDE RECORDS SUMMARY | 2024-07-18 15:27 | XMS_ITS | Encounter Summary ---
Author Organization [facility] Address [address] [place] [address] Care Team Providers Care Ship Engines Operating Engineer Name Role Phone Jose Roberto Cleary MD Primary Care Provider [phone] Sreekanth Quiroz MD Unavailable Source Comments In the event this information is protected by the Federal Confidentiality of Alcohol and Drug AbusePatient Records regulations: The Federal rules restrict any use of the information to criminally investigate or prosecute any alcohol or drug abuse patient.[facility] Encounter Details Date Type Department Care Team ([facility] st Contact Info) Description 11/04/2021 Patient [place] [id number] Provider, Ccf Please Schedule Colonoscopy/Endoscopy Appointment Social History Tobacco Use Types Packs/Day Years Used Date Smoking Tobacco: Never Assessed Comments Unknown Sex and Gender Information Value Date Recorded Sex Assigned at Not on file Legal Sex Female 11:20 AM EST Gender Identity Not on file Sexual Orientation Not on file COVID-19 Exposure Response Date Recorded In the last 10 days, have yo u been in contact with someone who was confirmed or suspected to have Coronavirus/COVID-19? No / Unsure 11/01/2021 10:00 AM EDT documented as of this encounter Plan of Treatment Upcoming Encounters Date Type Department Care Team (Late st Contact Info) Description 11/18/2024 9:00 AM EDT Office Visit Vascular Surgery [address] [place] [address] US CAROTID ARTERIES TORIN 11/18/2024 10:00 AM EDT Office Visit Vascular Surgery [address] [place] [address] US ABD AORTA COMPLETE VAS 11/18/2024 11:00 AM EDT Office Visit Vascular Surg Dept [address] [place] [address] Chris Esquivel MD [address] [facility] [address] [place] [address] 6 mth [place] f/u documented as of this encounter Visit Diagnoses Not on filedocumented in this encounter Care Teams Ship Engines Operating Engineer Relationship Specialty Start Date End Date Jose Roberto Cleary MD [address] [facility] [address] [place] [address] PCP - General Family Medicine 03/12/15 Sreekanth Quiroz MD [address] [facility] [address] [place] [address] Referring Neurology 11/20/19 documented as of this encounter
--- OUTSIDE RECORDS SUMMARY | 2024-07-18 15:27 | XMS_ITS | Encounter Summary ---
Author Organization [facility] Address [address] [place] [address] Care Team Providers Care Order Checker Packer Processer Name Role Phone Jose Roberto Cleary MD Primary Care Provider [phone] Sreekanth Quiroz MD Unavailable Source Comments In the event this information is protected by the Federal Confidentiality of Alcohol and Drug AbusePatient Records regulations: The Federal rules restrict any use of the information to criminally investigate or prosecute any alcohol or drug abuse patient.[facility] Encounter Details Date Type Department Care Team (Late st Contact Info) Description 09/06/2022 Patient Msg Gastroenterology [address] [place] [id number] Vilma Stahl, PSS prep Social History Tobacco Use Types Packs/Day Years Used Date Smoking Tobacco: Former Cigarettes Q uit: 2012 Smokeless Tobacco: Never Alcohol Use Standard Drinks/Week Comments Never 0 (1 standard drink = 0.6 oz pur e alcohol) Area Deprivation Index Answer Date Dann rded National Score (1-100), lower number is lower ri sk 73 02/25/2022 State Score (1-10), lower number is lower risk N ot on file 02/25/2022 Data from: https://www.neighborhoodatlas.medicine.[facility].edu/. Last address used for calculation [address] 02/25/2022 Comments No Sex and Gender Information Value Date Recorded Sex Assigned at Not on file Legal Sex Female 11:20 AM EST Gender Identity Not on file Sexual Orientation Not on file documented as of this encounter Plan of Treatment Upcoming Encounters Date Type Department Care Team (Late st Contact Info) Description 11/18/2024 9:00 AM EDT Office Visit Vascular Surgery [address] [place] [address] US CAROTID ARTERIES TORIN 11/18/2024 10:00 AM EDT Office Visit Vascular Surgery [address] [place] [address] US ABD AORTA COMPLETE VAS 11/18/2024 11:00 AM EDT Office Visit Vascular Surg Dept [address] [place] [address] [address] [place] [address] Chris Esquivel MD [address] [facility] [address] [place] [address] 6 mth [place] f/u documented as of this encounter Visit Diagnoses Not on filedocumented in this encounter Care Teams Order Checker Packer Processer Relationship Specialty Start Date End Date Jose Roberto Cleary MD [address] [facility] [address] [place] [address] PCP - General Family Medicine 03/12/15 Sreekanth Quiroz MD [address] [facility] [address] [place] [address] Referring Neurology 11/20/19 documented as of this encounter
--- OUTSIDE RECORDS SUMMARY | 2024-07-18 15:27 | XMS_ITS | Encounter Summary ---
Author Organization [facility] Address [address] [place] [address] Phone Care Team Providers Care Lean Manufacturing Engineer Name Role Phone Jose Roberto Cleary MD Primary Care Provider [phone] Daniel Montano MD Unavailable [phone] Encounter Details Date Type Department Care Team (Late st Contact Info) Description 07/15/2021 Orders Only [facility] [address] [place] [address] Conversion, Onbase Social History Tobacco Use Types Packs/Day Years [...] Description 07/24/2025 12:30 PM EDT Office Visit [facility] [address] [facility] [address] [place] [address] Daniel Montano MD [address] [place] [address] [address] [place], [place] [id number] Scheduled Orders Name Type Priority Associated Diagnoses Orde r Schedule OUTSIDE LAB SCAN Lab Ordered: 07/15/2021 documented as of this encounter Visit Diagnoses Not on filedocumented in this encounter Care Teams Lean Manufacturing Engineer Relationship Specialty Start Date End Date Jose Roberto Cleary MD [address] [facility] [address] [place] [address] PCP - General 08/14/18 [place] [address] [facility] [address] [place] [id number] Animal Husbandry Professor Nephrology 07/19/23 documented as of this encounter
--- OUTSIDE RECORDS SUMMARY | 2024-07-18 15:27 | XMS_ITS | Encounter Summary ---
Author Organization [facility] Address [address] [facility] [place] [address] Care Team Providers Care Founder & Ceo Name Role Phone Jose Roberto Cleary MD Unavailable Jose Roberto Cleary MD Primary Care Provider [phone] Belen Barr RN Unavailable [phone] Farida Pride LPN Unavailable Unavailable Encounter Details Date Type Department Care Team (Late st Contact Info) Description 03/22/2024 Orders Only [facility] [address] [facility] [address] [place] [address] Jose Roberto Cleary MD [address] [facility] [address] [place], [place] [address] Chronic kidney disease, stage 3a (HCC) (CMS/HCC) Social History Tobacco Use Types Packs/Day Years [...] often do you attend chur ch or roman catholic services? 1 to 4 times per year 09/19/2022 Do you belong to any clubs o r organizations such as roman catholic groups, unions, fraternal or athletic groups, or [...] Recorded Patient Health Questionnaire-2 Score 0 01/17/2024 [facility] - Occupational Stress [...] as of this encounter Visit Diagnoses Diagnosis Chronic kidney disease, stage 3a (HCC) (CMS/HCC) documented in this encounter Care Teams Founder & Ceo Relationship Specialty Start Date End Date Jose Roberto Cleary MD [address] [address] PCP - ACO Reach 07/07/22 Jose Roberto Cleary MD [address] [address] PCP - General Family Medicine 08/03/22 Belen Barr, DELMAR Clinical Advocate Family Medicine 03/22/24 05/07/24 Farida Pride LPN 05/07/24 documented as of this encounter
--- OUTSIDE RECORDS SUMMARY | 2024-07-18 15:27 | XMS_ITS | Encounter Summary ---
Author Organization [facility] Address [address] [place] [address] Care Team Providers Care Child Welfare Director Name Role Phone Jose Roberto Cleary MD Primary Care Provider [phone] Sreekanth Quiroz MD Unavailable Source Comments In the event this information is protected by the Federal Confidentiality of Alcohol and Drug AbusePatient Records regulations: The Federal rules restrict any use of the information to criminally investigate or prosecute any alcohol or drug abuse patient.[facility] Encounter Details Date Type Department Care Team (Late st Contact Info) Description 04/10/2022 Patient Msg Gastroenterology [address] [place] [phone] Taz Faith MD [address] [place] [address] Colonoscopy follow up Social History Tobacco Use Types Packs/Day Years [...] N ot on file 02/25/2022 Data from: https://www.neighborhoodatlas.medicine.[facility].edu/. Last address used for calculation Mary [...] AM EDT Office Visit Vascular Surgery [address] [place] [address] US CAROTID ARTERIES TORIN 11/18/2024 10:00 AM EDT Office Visit Vascular Surgery [address] [place] [address] US ABD AORTA COMPLETE VAS 11/18/2024 11:00 AM EDT Office Visit Vascular Surg Dept [address] [facility] [address] [place] [address] Chris Esquivel MD [address] [place] [address] 6 mth [place] f/u documented as of this encounter Visit Diagnoses Not on filedocumented in this encounter Care Teams Child Welfare Director Relationship Specialty Start Date End Date Jose Roberto Cleary MD [address] [facility] [address] [place] [address] PCP - General Family Medicine 03/12/15 Sreekanth Quiroz MD [address] [facility] [address] [place] [address] Referring Neurology 11/20/19 documented as of this encounter
--- OUTSIDE RECORDS SUMMARY | 2024-07-18 15:27 | XMS_ITS | Encounter Summary ---
Author Organization [facility] Address [address] [place] [address] Phone Care Team Providers Care Medicaid Service Coordinator Name Role Phone Jose Roberto Cleary MD Primary Care Provider [phone] Daniel Montano MD Unavailable [phone] Encounter Details Date Type Department Care Team (Late st Contact Info) Description 09/23/2022 Orders Only [facility]Y [address] [place] [address] Conversion, Onbase Social History Tobacco Use Types [...] Description 07/24/2025 12:30 PM EDT Office Visit [facility] [address] [facility] [address] [place] [address] Daniel Montano MD [address] [place] [address] [address] [place], [place] [phone] Scheduled Orders Name Type Priority Associated Diagnoses Orde r Schedule OUTSIDE LAB SCAN Lab Ordered: 09/23/2022 documented as of this encounter Visit Diagnoses Not on filedocumented in this encounter Care Teams Medicaid Service Coordinator Relationship Specialty Start Date End Date Jose Roberto Cleary MD [address] [facility] [address] [place] [address] PCP - General 08/14/18 [place] [address] [facility] [address] [place] [phone] Investigations Director Nephrology 07/19/23 documented as of this encounter
--- OUTSIDE RECORDS SUMMARY | 2024-07-18 15:27 | XMS_ITS | Encounter Summary ---
Author Organization [facility] Address [address] [place] [address] Care Team Providers Care Cart Attendant Name Role Phone Jose Roberto Cleary MD Primary Care Provider [phone] Sreekanth Quiroz MD Unavailable Source Comments In the event this information is protected by the Federal Confidentiality of Alcohol and Drug AbusePatient Records regulations: The Federal rules restrict any use of the information to criminally investigate or prosecute any alcohol or drug abuse patient.[facility] Encounter Details Date Type Department Care Team (Late st Contact Info) Description 11/02/2022 Get Medical Advice Gastroenterology [address] [place] [address] Taz Faith MD [address] [place] [address] Question regarding COLONOSCOPY DIAGNOSTIC Social History Tobacco Use Types Packs/Day Years [...] N ot on file 02/25/2022 Data from: https://www.neighborhoodatlas.medicine.[facility].edu/. Last address used for calculation [...] AM EDT Office Visit Vascular Surgery [address] [place] [address] US CAROTID ARTERIES TORIN 11/18/2024 10:00 AM EDT Office Visit Vascular Surgery [address] [place] [address] US ABD AORTA COMPLETE VAS 11/18/2024 11:00 AM EDT Office Visit Vascular Surg Dept [address] [place] [address] [address] [place] [address] Chris Esquivel MD [address] [place] [address] 6 mth [place] f/u documented as of this encounter Visit Diagnoses Not on filedocumented in this encounter Care Teams Cart Attendant Relationship Specialty Start Date End Date Jose Roberto Cleary MD [address] [facility] [address] [place] [address] PCP - General Family Medicine 03/12/15 Sreekanth Quiroz MD [address] [facility] [address] [place] [address] Referring Neurology 11/20/19 documented as of this encounter
--- OUTSIDE RECORDS SUMMARY | 2024-07-18 15:27 | XMS_ITS ---
Author Organization [facility] Address [address] [facility] [place] [address] Care Team Providers Care Aerospace Engineer Officer Armament Name Role Phone Jose Roberto Cleary MD Unavailable Jose Roberto Cleary MD Primary Care Provider [phone] Farida Pride LPN Unavailable Unavailable Chronic Care Management (CCM) Status:Enrolled (Active) Start date:06/30/2022 Enrollment date:06/30/2022 Overview 01/31/24, 10:39 AM - ChhayamondayGLEN- Patient gives verbal consent to be enrolled in CCM Program and understands there could be a bill for this service. Case Team Name Relationship Phone Farida Pride LPN(Responsible Staff) Continued Care and Services Coordination
--- OUTSIDE RECORDS SUMMARY | 2024-07-18 15:27 | XMS_ITS | Clinical Summary ---
Author Organization [facility] Address [address] [place] [address] Care Team Providers Care Deputy Clerk Of Court Name Role Phone Jose Roberto Cleary MD Unavailable Jose Roberto Cleary MD Primary Care Provider [phone] Farida Pride LPN Unavailable Unavailable Allergies Active Allergy Reactions Criticality Noted Date Comments Ciprofloxacin Other,Unknown 10/05/2020 Metronidazole Medium 11/20/2022 Other Reaction(s): Other neuropathy Octacosanol Unknown 02/11/2021 Penicillins Unknown,Other 03/10/2015 Vancomycin 11/17/2021 Other Reaction(s): Numbness Medications ipratropium (Atrovent) 0.06 % nasal spray Administer 2 sprays into each nostril every 8 (eight) hours. Active magnesium 250 MG tablet 1 (one) time each day at the same time. Active cetirizine (ZyrTEC) 10 MG tablet 10 mg Daily as needed for allergies. Active levothyroxine (Synthroid, Levoxyl) 200 MCG tabletIndications:H ypothyroidism, unspecified Take 1 tablet (200 mcg) by mouth in the morning. Take before meals. TAKE 1 TABLET BY MOUTH EVERY MORNING ON AN EMPTY STOMACH,ONLY TAKE 1/2 TABLET ON MONDAY AND MONDAY. 90 tablet 3 12/20/19 24 Active folic acid (Folvite) 1 MG tabletIndications:N onalcoholic fatty liver disease without nonalcoholic steatohepatitis (BISWAS) Take 1 tablet (1,000 mcg) by mouth Daily 100 tablet 3 12/20/19 24 Active gabapentin (Neurontin) 600 MG tabletIndications:P olyneuropathy,Perip heral polyneuropathy TAKE 1 TAB BY MOUTH IN THE MORNING, EVENING AND BEFORE BEDTIME 270 tablet 1 12/20/19 24 Active ergocalciferol (Vitamin D2) 1.25 MG (96988 UT) capsuleIndications: Vitamin D deficiency Take 1 capsule (1.25 mg) by mouth 1 (one) time per week 4 capsule 11 01/13/20 24 025 Active furosemide (Lasix) 20 MG tabletIndications:S pondylosis without myelopathy or radiculopathy, lumbar region Take 1 tablet (20 mg) by mouth Daily 90 tablet 1 02/09/20 24 025 Active b complex vitamins capsule Take 1 capsule by mouth Daily Active albuterol HFA 90 mcg/act inhalerIndications: Other emphysema (CMS/HCC),Chronic obstructive pulmonary disease, unspecified,Mixed simple and mucopurulent chronic bronchitis (CMS/HCC) Inhale 2 puffs every 4 (four) hours if needed for wheezing 18 g 02/19/19 25 026 Active Misc Natural Products (YumVs Beet Root-Tart Aguilera) 250-0.5 MG chewable tablet Chew Daily as needed (pt does not take this daily, but does take it when she thinks about it.) Active Probiotic Product (PROBIOTIC BLEND PO) Take 1 Capful by mouth Daily Active omeprazole (PriLOSEC) [address] capsuleIndications: Gastroesophageal reflux disease without esophagitis Take 1 capsule (40 mg) by mouth Daily Do not crush or chew. 100 capsule 3 04/17/19 25 Active spironolactone (Aldactone) 25 MG tabletIndications:L ocalized swelling of both lower extremities TAKE 1 TABLET BY MOUTH EVERY DAY 90 tablet 04/26/19 25 Active amLODIPine (Norvasc) 5 MG tablet Take 5 mg by mouth in the morning. 05/10/19 25 025 Active ALPRAZolam (Xanax) 1 MG tabletIndications:A djustment disorder with anxiety (CMS/HCC) Take 1 tablet (1 mg) by mouth 2 (two) times a day as needed for anxiety 60 tablet 07/03/19 25 025 Active traMADol (Ultram) 50 MG tabletIndications:N euralgia and neuritis, unspecified,Spondyl osis without myelopathy or radiculopathy, lumbar region Take 1 tablet (50 mg) by mouth every 6 (six) hours if needed for moderate pain 120 tablet 07/03/19 25 025 Active traMADol (Ultram) 50 MG tabletIndications:N euralgia and neuritis, unspecified,Spondyl osis without myelopathy or radiculopathy, lumbar region Take 1 tablet (50 mg) by mouth every 6 (six) hours if needed for moderate pain 120 tablet 04/18/19 25 025 Discontin ued(Reord er) ALPRAZolam (Xanax) 1 MG tabletIndications:A djustment disorder with anxiety (CMS/HCC) Take 1 tablet (1 mg) by mouth 2 (two) times a day as needed for anxiety 60 tablet 04/18/19 25 025 Discontin ued(Reord er) Active Problems Problem Noted Date Diagnosed Date Acute non-recurrent maxillary sinusitis 03/21/19 25 Assessment & Plan (03/21/2024 4:02 PM EST): Add Probiotic to help replenish the good bacteria that are destroyed by the Antibiotics Florastor Florajen Align or try Activia in Yogurt Probiotics reduce the risk of antibiotic induced diarrhea Encounter for monitoring diuretic therapy 2024 Hyperparathyroidism, unspecified 08/07/2023 Assessment & Plan (08/07/2023 3:10 PM EDT): F/U with Assistant Housekeeping Manager Abdominal pain 04/24/2023 Fall at home 12/26/2022 Assessment & Plan (12/26/2022 1:39 PM EST): Had CT scan of neck showed arthritis CT of Head was normal Reactive depression 12/26/2022 Class 1 obesity with body ma ss index (BMI) of 32.0 to 32.9 in adult 11/20/2022 Overview (12/25/2022): Last Assessment & Plan: Her BMI puts her in the overweight category, she remains fairly active, actually her weight is not too bad for her age, I reinforced the need for heart healthy lifestyle. Hypokalemia 11/20/2022 Edema 11/20/2022 Overweight with body mass in dex (BMI) of 26 to 26.9 in adult 11/20/2022 Dizziness 10/07/2022 Overview (10/07/2022): --- cervicogenic. B12 deficiency 10/07/2022 Assessment & Plan (07/18/2023 9:55 AM EDT): (Continue B complex.) (Also for B6.) Assessment & Plan (01/10/2023 11:35 AM EST): (Continue current regimen.) Assessment & Plan (10/11/2022 11:05 AM EDT): (Continue B-complex 3/week.) Neurogenic pain 10/07/2022 Assessment & Plan (07/18/2023 9:53 AM EDT): Incr GBP to tid (AM, supper, hs). Assessment & Plan (01/10/2023 11:32 AM EST): Restart GBP 600 *tid*. (Med is off med list.) Assessment & Plan (10/11/2022 10:58 AM EDT): (Continue current regimen.) Lumbar paraspinal muscle spasm 10/07/2022 Assessment & Plan (07/18/2023 9:58 AM EDT): (Continue home PT.) Assessment & Plan (01/10/2023 11:47 AM EST): Continue PT. Eval for gait aids - suspect pt needs rollator, not merely a cane. Assessment & Plan (10/11/2022 11:01 AM EDT): (Home PT.) White matter disease 08/22/2022 Vitamin D deficiency 08/22/2022 Assessment & Plan (08/07/2023 3:21 PM EDT): Add supplements Ventricular premature depolarization 08/22/2022 Seasonal allergies 08/22/2022 Irritable bowel syndrome 08/22/2022 Cervical paraspinal muscle spasm 08/08/2022 Assessment & Plan (07/18/2023 9:58 AM EDT): (Continue home PT.) Assessment & Plan (01/10/2023 11:36 AM EST): (Home PT.) Assessment & Plan (10/11/2022 10:57 AM EDT): PT. Central vestibular vertigo 08/08/2022 Cervicalgia 08/08/2022 Unsteadiness on feet 08/08/2022 Constipation 08/01/2022 History of difficult intubation 02/24/2022 Overview (08/22/2022): Last Assessment & Plan: Patient reports she has a small passage way. She notes difficulty with intubation 15 years ago, needed a PEDS tube to be used. Former smoker 02/24/2022 Overview (08/22/2022): Last Assessment & Plan: Patient reports Former smoker on and off 15 years 1 PPD. 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 Cece LARSEN, last visit 7 months Monitoring yearly with ultrasound History of anesthesia complications 12/06/2021 Overview (08/22/2022): Reports difficulty with intubation, needed peds tube - 15 years ago Last Assessment & Plan: Patient reports she has a small passage way. She notes difficulty with intubation 15 years ago, needed a PEDS tube to be used. CVA (cerebral vascular accident) 12/06/2021 Overview (08/22/2022): Last Assessment & Plan: History 2004, notes no residual. Gastroesophageal reflux disease without esophagi tis 02/02/2021 Overview (08/22/2022): Last Assessment & Plan: Managed with Lactobacillus acidophilus (PROBIOTIC ORAL) and OMEPRAZOLE Reports controlled and stable Carotid stenosis, bilateral 12/23/2020 Assessment & Plan (07/18/2023 9:54 AM EDT): Double-check ([facility]) that no US carotids was done in past 6 mo, If correct, proceed with US carotids (overdue). Assessment & Plan (01/10/2023 11:35 AM EST): Get last year's study, also get upcoming study before appt. Assessment & Plan (10/11/2022 10:54 AM EDT): US carotids ([facility]) Nov. Varicose veins of lower extremity with inflammat ion 11/03/2020 Chronic rhinitis 09/24/2020 Nonalcoholic fatty liver dis ease without nonalcoholic steatohepatitis (BISWAS) 09/01/2020 Assessment & Plan (08/07/2023 3:08 PM EDT): Monitor with GI Dementia 08/31/2020 Steatosis of liver 08/28/2020 Lumbar spondylosis 03/03/2020 Assessment & Plan (01/10/2023 11:45 AM EST): XR L-s 6 v. Redo [facility] BLE - worsening gait. 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 Assessment & Plan (08/07/2023 3:10 PM EDT): Medication choice and dosage is appropriate for patient's current medical conditions. Patient will continue to be required to be seen in our office at least every three months for monitoring. At each follow up visit I will reassess the patient's need for the medication. Patient is to have this medication prescribed only through this office. Failure to follow the rules and regulations will result in tapering and discontinuation of medications if applicable. Patient verbalized understanding. OARRS Report was reviewed for this patient. Assessment & Plan (12/26/2022 1:32 PM EST): Sees Dr. Quiroz Assessment & Plan (10/11/2022 10:55 AM EDT): PT - gait rehab. BPPV (benign paroxysmal positional vertigo), lef t 04/02/2019 Aortic valve sclerosis 08/15/2018 Chronic obstructive pulmonary disease, unspecifi ed 02/05/2018 Assessment & Plan (02/20/2024 2:24 PM EST): Albuterol added Chronic kidney disease, stage 3a (HCC) 8 Assessment & Plan (02/20/2024 2:25 PM EST): Increase fluids Assessment & Plan (12/26/2022 1:37 PM EST): Increase fluids Chronic pain 02/18/2016 Adjustment disorder with anxiety 04/23/2015 Assessment & Plan (04/24/2023 1:20 PM EDT): Increase Lexapro, consider Rexulti Patient's Medicine is effective at controlling symptoms at current dose and frequency. PDMP reviewed with no evidence of overuse and abuse D/W patient to avoid use of benzodiazepines when consuming alcohol Advised against operating heavy machinery and driving long distances while on medicines. Assessment & Plan (12/26/2022 1:31 PM EST): ,Patient's Medicine is effective at controlling symptoms at current dose and frequency. PDMP reviewed with no evidence of overuse and abuse D/W patient to avoid use of benzodiazepines when consuming alcohol Advised against operating heavy machinery and driving long distances while on medicines. Increased risk for falls Acquired hypothyroidism 03/16/2015 Overview (08/22/2022): Last Assessment & Plan: Managed with levothyroxine (SYNTHROID) Abdominal aortic aneurysm (AAA) without rupture 03/16/2015 Assessment & Plan (04/18/2024 3:17 PM EST): Will make appointment with Dr. Bhatti Has grown by 5 mm Widest diameter 4.6 cm Assessment & Plan (04/24/2023 1:14 PM EDT): F/U AAA with scans ETD (Eustachian tube dysfunction), bilateral Benign essential hypertension 2014 Overview (08/22/2022): Last Assessment & Plan: Managed with amLODIPine (NORVASC) BP this visit 153/87 Patient denies SOB, dizziness, lightheadedness, palpitations, fluttering, syncope and chest pain Assessment & Plan (04/24/2023 1:15 PM EDT): Our specific goals, for your hypertension, is to keep your blood pressure less than 140/90, and the importance of weight control. We made recommendations on how to control your blood pressure, and minimize your risk of these copmplications. We also discussed your current barriers to a healthy living and importance of healthy diet and exercise. Prior to your visit today we have reviewed your chart and formed a plan to assist with providing you the best possible care. We reviewed the possible complications of hypertension including, stroke, heart failure and kidney impairment. In addition, we discussed your medications, the importance of taking them as prescribed. DASH diet handouts Assessment & Plan (01/23/2023 1:08 PM EST): Our specific goals, for your hypertension, is to keep your blood pressure less than 140/90, and the importance of weight control. We made recommendations on how to control your blood pressure, and minimize your risk of these copmplications. We also discussed your current barriers to a healthy living and importance of healthy diet and exercise. Prior to your visit today we have reviewed your chart and formed a plan to assist with providing you the best possible care. We reviewed the possible complications of hypertension including, stroke, heart failure and kidney impairment. In addition, we discussed your medications, the importance of taking them as prescribed. [employer] diet handouts Improved Assessment & Plan (12/26/2022 1:30 PM EST): Our specific goals, for your hypertension, is to keep your blood pressure less than 140/90, and the importance of weight control. We made recommendations on how to control your blood pressure, and minimize your risk of these copmplications. We also discussed your current barriers to a healthy living and importance of healthy diet and exercise. Prior to your visit today we have reviewed your chart and formed a plan to assist with providing you the best possible care. We reviewed the possible complications of hypertension including, stroke, heart failure and kidney impairment. In addition, we discussed your medications, the importance of taking them as prescribed. DASH diet handouts Resolved Problems Problem Noted Date Diagnosed Date Resolved Date Routine general medical exam ination at [facility] 08/07/2023 01/17/2024 Assessment & Plan (08/07/2023 3:08 PM EDT): Colonoscopy every 10 years or Cologuard every 3 years ages 50-75 Flu Vaccine yearly Pneumovax and Prevnar Mammo yearly for women and PSA yearly for men Labs/Screening yearly to rule out Diabetes, Chronic Kidney disease and liver disease Hepatitis Screen forat risk populations Shingles vaccine after 65 if indicated Tetanus Vaccine every 10 years Lipids yearly under the age of 75 If Smoking history: one time CT scan of chest and Ultrasound of Aorta to screen for Anuerysm Chronic kidney disease, stage 3b (HCC) 08/07/2023 11/17/2023 Assessment & Plan (08/07/2023 3:20 PM EDT): Labs Reviewed Adequate fluid intake Avoid NSAID Sees Nephrology Chronic renal impairment, stage 2 (mild) 12/06/2021 11/17/2023 Overview (08/22/2022): Last Assessment & Plan: 10/29/21 BUN 7 - 21 mg/dL 19 Creatinine 0.58 - 0.96 mg/dL 1.17 High Sodium 136 - 144 mmol/L 143 Potassium 3.7 - 5.1 mmol/L 3.4 Low Chloride 97 - 105 mmol/L 105 CO2 22 - 30 mmol/L 29 Anion Gap 9 - 18 mmol/L 9 Estimated Glomerular Filtration Rate >=60 mL/min/1.73m 50 Low Carotid artery stenosis 08/21/2020 08/2 06/2022 Encounters Date Type Department Care Team Description 07/02/2024 Refill [facility] [address] [facility] [address] [place] [id number] Jose Roberto Cleary MD Adjustment disorder with anxiety (CMS/HCC); Neuralgia and neuritis, unspecified; Spondylosis without myelopathy or radiculopathy, lumbar region 05/28/2024 Clinisync Result Encounter [facility] Department Unsolicited Provider, Generic External Data 05/22/2024 Patient Outreach [facility] [address] [place] [address] Farida Pride LPN 04/30/2024 Abstract [facility] [address] [facility] [address] [place] [id number] Jose Roberto Cleary MD 04/29/2024 2:30 PM EDT Clinical Support [facility] [address] [place] [address] [place] [address] 04/29/2024 Travel 04/25/2024 Refill [facility] [address] [facility] [place] [address] Jose Roberto Cleary MD Localized swelling of both lower extremities 04/18/2024 3:00 PM EST Office Visit [facility] [address] [facility] [place] [address] Jose Roberto Cleary MD Infrarenal abdominal aortic aneurysm (AAA) 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) (Primary Dx) 04/18/2024 Bamboo flowsheet [facility] [address] [place] [address] Jose Roberto Cleary MD 04/18/2024 Travel from Last 3 Months Immunizations Immunization Administration Dates Next Due Influenza, High-dose Seasona l, Quadrivalent, Preservative Free 01/17/2024,03/23/2022 Influenza, Injectable, MDCK, preservative free 1 02/20/2018 Influenza, Seasonal, Quadrivalent, Adjuvanted Influenza, Unspecified 11/13/2018 Influenza, injectable, MDCK, quadrivalent 2018 Influenza, injectable, quadrivalent, preservativ e free 12/04/2020,01/16/2020 Influenza, seasonal, injectable 11/14/2019 Family History Medical History Relation Name Comments Coronary artery disease Brother Heart disease Father COPD Maternal Grandfather Hypertension Mother Hypertension Sister Relation Name Status Comments Brother Father Maternal Grandfather Mother Sister Social History Tobacco Use Types Packs/Day Years Used Date Smoking Tobacco: Former Cigarettes Q uit: 03/20/2012 Smokeless Tobacco: Never Tobacco Cessation:Counseling Given: Yes Alcohol Use Standard Drinks/Week Comments Never 0 [...] How often do you attend chur or buddhist services? 1 to 4 times per year 09/19/2022 Do you belong to any clubs o r organizations such as zoroastrian groups, unions, fraternal or athletic groups, or [...] Recorded Patient Health Questionnaire-2 Score 0 04/18/2024 [facility] of Occupat ional Health - Occupational Stress [...] place to sleep or slept in a long term (including now)? No 09/19/2022 Comments Unknown Sex and Gender Information Value Date Recorded Sex Assigned at Not on file Legal Sex Female 6:59 PM EDT Gender Identity Not on file Sexual Orientation Not on file Last Filed Vital Signs Vital Sign Reading Time Taken Comments Blood Pressure 120/88 04/18/2024 3:03 PM EST Pulse 64 04/18/2024 3:03 PM EST Temperature - - Respiratory Rate 17 04/03/2024 4:23 PM EST Oxygen Saturation 98% 04/18/2024 3:03 PM EST Inhaled Oxygen Concentration - - Weight 82.1 kg (181 lb) 04/18/2024 3:03 PM EST Height 160 cm (5' 3 ) 04/18/2024 3:03 PM EST Body Mass Index 32.06 04/18/2024 3:03 PM EST Plan of Treatment Health Maintenance Due Date Last Done Comments CT Colonography 1949 FIT-DNA 1950 FIT 1950 FOBT 1950 Pneumococcal Vaccine: 65+ Years (1 of 2 - PCV) 12/18/2024 Postponed from 1968 (Patient Refused) Mammogram 01/13/2025 Postponed from 1989 (Patient Refused) Sigmoidoscopy 10/26/2027 10/25/2022 Colonoscopy 10/25/2032 10/25/2022, 10/14, 10/25/2022, Additional history exists Colorectal Cancer Screening 10/25/2032 Influenza Vaccine Completed 01/17/2024, , 12/04/2020, Additional history exists Procedures Procedure Name Priority Date/Time Associated Diagnosis Comments NM CARDIAC PERF STRESS/PHARM 05/28/2024 3:41 PM EDT COLONOSCOPY 10/25/2022 10:08 AM EDT from Last 3 Months or Most Recently Relevant to Health Maintenance Results * NM CARDIAC PERF STRESS/PHARM (05/28/2024 3:41 PM EDT) Anatomical Region Laterality Modality Other 05/28/2024 3:41 PM EDT Narrative 05/28/2024 5:00 [...] later. See administered radiotracer and doses below. [facility] Office Date of service: 05/28/2024 1:25:55 PM Ordering Physician: OLIVER TORRES. Requesting Physician: Indication: Assessment for suspected CAD and h/o CVA, carotid stenosis Interpreting physician: Gómez Rivas MD Height: 157.48 cm BSA: 1.88 m? Weight: 80.74 kg BMI: 32.6 kg/m? Imaging Protocol Limitation Reason Patient motion and [...] Final * * * Stress ECG Report: [facility] Date of service: 05/28/2024 1:25:55 PM Ordering physician: OLIVER TORRES Interpreting physician: Tu Fuller MD Patient name: REBECA JIMENEZ Age: 73 years Gender: F Height: 157.48 cm BSA: 1.88 m? Weight: 80.74 kg BMI: 32.6 kg/m? Indication: Encounter for pre-procedural cardiovascular examination for [...] 138/74 mmHg. The double product achieved was [address]. Medications: Last Used AMLODIPINE LASIX POTASSIUM SPIRONOLACTONE [...] (HRR): 10 bpm Rate Pressure Product (RPP): 88129 Stress Exercise Observations: Reason for test termination: [...] * * Final * * * Stress Gear Cutting Machine Set Up Operator Report: [facility] Office Date of service: 05/28/2024 1:25:55 PM Supervising physician: Tu Fuller MD PATIENT: Name: REBECA JIMENEZ Age: 73 years Gender: F The supervising physician was in the department and immediately available. * * * Final * * * RP Molder Floor: [facility] Transcribe Date/Time: May 28 2024 1:25P Dictated by : GÓMEZ RIVAS MD This examination was interpreted and the report reviewed and electronically signed by: GÓMEZ RIVAS MD on May 28 2024 5:00PM EST [id number]^ACN Procedure Note Radiology, Radiologist, MD - 05/28/2024 * * *Final Report* * [...] later. See administered radiotracer and doses below. [facility] Office Date of service: 05/28/2024 1:25:55 PM Ordering Physician: OLIVER TORRES. Requesting Physician: Indication: Assessment for suspected CAD and h/o CVA, carotid stenosis Interpreting physician: Gómez Rivas MD Height: 157.48 cm BSA: 1.88 m? Weight: 80.74 kg BMI: 32.6 kg/m? Imaging Protocol Limitation Reason Patient motion and [...] Final * * * Stress ECG Report: [facility] Date of service: 05/28/2024 1:25:55 PM Ordering physician: OLIVER TORRES Interpreting physician: Tu Fuller MD Patient name: REBECA JIMENEZ Age: 73 years Gender: F Height: 157.48 cm BSA: 1.88 m? Weight: 80.74 kg BMI: 32.6 kg/m? Indication: Encounter for pre-procedural cardiovascular examination for [...] 138/74 mmHg. The double product achieved was 06311. Medications: Last Used AMLODIPINE LASIX POTASSIUM SPIRONOLACTONE [...] (HRR): 10 bpm Rate Pressure Product (RPP): 01009 Stress Exercise Observations: Reason for test termination: [...] * * Final * * * Stress Gear Cutting Machine Set Up Operator Report: [facility] Office Date of service: 05/28/2024 1:25:55 PM Supervising physician: Tu Fuller MD PATIENT: Name: REBECA JIMENEZ Age: 73 years Gender: F The supervising physician was in the department and immediatelyavailable. * * * Final * * * RP Molder Floor: [facility] Transcribe Date/Time: May 28 2024 1:25P Dictated by : GÓMEZ RIVAS MD This examination was interpreted and the report reviewed and electronically signed by: GÓMEZ RIVAS MD on May 28 2024 5:00PM EST [id number]^ACN us Generic External Data Provider [facility] Final Result * COLONOSCOPY (10/25/2022 10:08 AM EDT) Anatomical [...] for surveillance. Procedure Code(s): --- Professional --- 00709, Colonoscopy, flexible; with removal of tumor(s), polyp(s), or other lesion(s) by snare technique Diagnosis Code(s): --- Professional --- Z12.11, Encounter for screening for malignant neoplasm of colon Z86.010, Personal history of colonic polyps Z98.890, Other specified postprocedural states D12.2, Benign neoplasm of ascending colon CPT copyright 2020 [employer]. All rights reserved. Attending Participation: [...] for surveillance. Procedure Code(s): --- Professional --- 57913, Colonoscopy, flexible; with removal of tumor(s), polyp(s), or other lesion(s) by snare technique Diagnosis Code(s): --- Professional --- Z12.11, Encounter for screening for malignant neoplasm of colon Z86.010, Personal history of colonic polyps Z98.890, Other specified postprocedural states D12.2, Benign neoplasm of ascending colon CPT copyright 2020 [employer]. All rights reserved. Attending Participation: I personally performed the entire procedure. Scope In: 10:37:51 AM Scope Out: 11:08:30 AM MD Kenton Rowe MD 10/25/2022 11:34:00 AM This report has been signed electronically by Kenton Kapadia MD Number of Addenda: 0 Note Initiated On: 10/25/2022 10:08 AM Generic External Data Provider [facility] Final Result from Last 3 Months or Most Recently Relevant to Health Maintenance Insurance MEDICARE [facility] Care Teams Deputy Clerk Of Court Relationship Specialty Start Date End Date Jose Roberto Cleary MD [address] [facility] [address] [place] [address] PCP - ACO Reach 07/07/22 Jose Roberto Cleary MD [address] [facility] [address] [place] [address] PCP - General Family Medicine 08/03/22 Farida Pride LPN 05/07/24
--- OUTSIDE RECORDS SUMMARY | 2024-07-18 15:27 | XMS_ITS | Encounter Summary ---
Author Organization [facility] Address [address] [place] [address] Care Team Providers Care Personal Injury Paralegal Name Role Phone Jose Roberto Cleary MD Primary Care Provider [phone]- [phone] Sreekanth Quiroz MD Unavailable Source Comments In the event this information is protected by the Federal Confidentiality of Alcohol and Drug AbusePatient Records regulations: The Federal rules restrict any use of the information to criminally investigate or prosecute any alcohol or drug abuse patient.[facility] Encounter Details Date Type Department Care Team (Late st Contact Info) Description 11/02/2022 Get Medical Advice Gastroenterology [address] [place] [address] Taz Faith MD [address] [place] [address] Question regarding COLONOSCOPY DIAGNOSTIC Social [...] N ot on file 02/25/2022 Data from: https://www.neighborhoodatlas.medicine.[facility].edu/. Last address used for calculation Mary Romero [...] AM EDT Office Visit Vascular Surgery [address] [place] [address] US CAROTID ARTERIES TORIN 11/18/2024 10:00 AM EDT Office Visit Vascular Surgery [address] [place] [address] US ABD AORTA COMPLETE VAS 11/18/2024 11:00 AM EDT Office Visit Vascular Surg Dept [address] [place] [address] [address] [place] [address] Chris Esquivel MD [address] [place] [address] 6 mth [place] f/u documented as of this encounter Visit Diagnoses Not on filedocumented in this encounter Care Teams Personal Injury Paralegal Relationship Specialty Start Date End Date Jose Roberto Cleary MD [address] [facility] [address] [place] [address] PCP - General Family Medicine 03/12/15 Sreekanth Quiroz MD [address] [facility] [address] [place] [address] Referring Neurology 11/20/19 documented as of this encounter
--- OUTSIDE RECORDS SUMMARY | 2024-07-18 15:27 | XMS_ITS | Encounter Summary ---
Author Organization [facility] Address [address] [place] [address] Care Team Providers Care Night Baker Name Role Phone Jose Roberto Cleary MD Primary Care Provider [phone]- [phone] Sreekanth Quiroz MD Unavailable Source Comments In the event this information is protected by the Federal Confidentiality of Alcohol and Drug AbusePatient Records regulations: The Federal rules restrict any use of the information to criminally investigate or prosecute any alcohol or drug abuse patient.[facility] Encounter Details Date Type Department Care Team (Late st Contact Info) Description 04/17/2022 [place] [address] Provider, Ccf Please Schedule Colonoscopy/Endoscopy Appointment Social History Tobacco Use Types Packs/Day Years Used Date Smoking Tobacco: Former Cigarettes Q uit: 2011 Smokeless Tobacco: Never Alcohol Use Standard Drinks/Week Comments Never 0 (1 standard drink = 0.6 oz pur e alcohol) Area Deprivation Index Answer Date Dann rded National Score (1-100), lower number is lower ri sk 73 02/25/2022 State Score (1-10), lower number is lower risk N ot on file 02/25/2022 Data from: https://www.neighborhoodatlas.medicine.[facility].edu/. Last address used for calculation Mary [...] AM EDT Office Visit Vascular Surgery [address] [place] [address] US CAROTID ARTERIES TORIN 11/18/2024 10:00 AM EDT Office Visit Vascular Surgery [address] [place] [address] US ABD AORTA COMPLETE VAS 11/18/2024 11:00 AM EDT Office Visit Vascular Surg Dept [address] [facility] [address] [place] [address] Chris Esquivel MD [address] [facility] [address] [place] [address] 6 mth [place] f/u documented as of this encounter Visit Diagnoses Not on filedocumented in this encounter Care Teams Night Baker Relationship Specialty Start Date End Date Jose Roberto Cleary MD [address] [facility] [address] [place] [address] PCP - General Family Medicine 03/12/15 Sreekanth Quiroz MD [address] [facility] [address] [place] [address] Referring Neurology 11/20/19 documented as of this encounter
--- OUTSIDE RECORDS SUMMARY | 2024-07-18 15:27 | XMS_ITS | Encounter Summary ---
Author Organization [facility] Address [address] [place] [address] Phone Care Team Providers Care Guest Service Agent Name Role Phone Jose Roberto Cleary MD Primary Care Provider +1- [phone] Daniel Montano MD Unavailable [phone] Encounter Details Date Type Department Care Team (Late st Contact Info) Description 12/29/2020 Orders Only [facility] [address] [place] [address] Conversion, Onbase Social History Tobacco Use Types [...] Description 07/24/2025 12:30 PM EDT Office Visit [facility] [address] [facility] [address] [place] [address] Daniel Montano MD [address] [place] [address] [address] [place], [place] [phone] Scheduled Orders Name Type Priority Associated Diagnoses Orde r Schedule OUTSIDE LAB SCAN Lab Ordered: 12/29/2020 documented as of this encounter Visit Diagnoses Not on filedocumented in this encounter Care Teams Guest Service Agent Relationship Specialty Start Date End Date Jose Roberto Cleary MD [address] [facility] [address] [place] [address] PCP - General 08/14/18 [place] [address] [facility] [address] [place] [id number] Cable Supervisor Nephrology 07/19/23 documented as of this encounter
--- OUTSIDE RECORDS SUMMARY | 2024-07-18 15:27 | XMS_ITS | Encounter Summary ---
Author Organization [facility] Address [address] [place] [address] Phone Care Team Providers Care Supervisor Speech Name Role Phone Jose Roberto Cleary MD Primary Care Provider +1- [phone] Daniel Montano MD Unavailable [phone] Encounter Details Date Type Department Care Team (Late st Contact Info) Description 03/23/2022 Orders Only [facility] [address] [place] [address] Conversion, Onbase Social History Tobacco Use Types [...] Description 07/24/2025 12:30 PM EDT Office Visit [facility] [address] [facility] [address] [place] [address] Daniel Montano MD [address] [place] [address] [address] [place], [place] [phone] Scheduled Orders Name Type Priority Associated Diagnoses Orde r Schedule OUTSIDE LAB SCAN Lab Ordered: 03/23/2022 documented as of this encounter Visit Diagnoses Not on filedocumented in this encounter Care Teams Supervisor Speech Relationship Specialty Start Date End Date Jose Roberto Cleary MD [address] [facility] [address] [place] [address] PCP - General 08/14/18 [place] [address] [facility] [address] [place] [phone] Wirer Maintenance Nephrology 07/19/23 documented as of this encounter
--- OUTSIDE RECORDS SUMMARY | 2024-07-18 15:27 | XMS_ITS | Encounter Summary ---
Author Organization [facility] Address [address] [place] [address] Care Team Providers Care Blankbook Stitching Machine Operator Name Role Phone Jose Roberto Cleary MD Primary Care Provider +1- [phone] Sreekanth Quiroz MD Unavailable Source Comments In the event this information is protected by the Federal Confidentiality of Alcohol and Drug AbusePatient Records regulations: The Federal rules restrict any use of the information to criminally investigate or prosecute any alcohol or drug abuse patient.[facility] Encounter Details Date Type Department Care Team (Late st Contact Info) Description 05/08/2024 Patient Msg Internal Medicine [address] [place] [address] Provider, Ccf Vascular Surgery Appoitment Notification Social History Tobacco Use Types Packs/Day Years [...] is lower risk 6 05/09/2024 Data from: https://www.neighborhoodatlas.medicine.[facility].edu/. Last address used for calculation [address] 05/09/2024 Comments No Sex and Gender Information Value Date Recorded Sex Assigned at Not on file Legal Sex Female 11:20 AM EST Gender Identity Not on file Sexual Orientation Not on file documented as of this encounter Plan of Treatment Upcoming Encounters Date Type Department Care Team (Late st Contact Info) Description 11/18/2024 9:00 AM EDT Office Visit Vascular Surgery [address] [place] [address] US CAROTID ARTERIES TORIN 11/18/2024 10:00 AM EDT Office Visit Vascular Surgery [address] [place] [address] US ABD AORTA COMPLETE VAS 11/18/2024 11:00 AM EDT Office Visit Vascular Surg Dept [address] [place] [address] [address] [place] [address] Chris Esquivel MD [address] [facility] [address] [place] [address] 6 mth [place] f/u documented as of this encounter Goals Goal Patient Goal Type Associated Problems Recent Progress Patient-Stated? Author Blood Pressure < 130/80 Blood Pressure 149/99( 025 2:43 PM EDT) No Chris Esquivel MD documented as of this encounter Visit Diagnoses Not on filedocumented in this encounter Care Teams Blankbook Stitching Machine Operator Relationship Specialty Start Date End Date Jose Roberto Cleary MD [address] [place] [address] PCP - General Family Medicine 03/12/15 Sreekanth Quiroz MD [address] [place] [address] Referring Neurology 11/20/19 documented as of this encounter
--- OUTSIDE RECORDS SUMMARY | 2024-07-18 15:27 | XMS_ITS | Encounter Summary ---
Author Organization [facility] Address [address] [place] [address] Care Team Providers Care Asparagus Cutter Name Role Phone Jose Roberto Cleary MD Primary Care Provider +1- [phone] Sreekanth Quiroz MD Unavailable Source Comments In the event this information is protected by the Federal Confidentiality of Alcohol and Drug AbusePatient Records regulations: The Federal rules restrict any use of the information to criminally investigate or prosecute any alcohol or drug abuse patient.[facility] Encounter Details Date Type Department Care Team (Late st Contact Info) Description 11/03/2022 Get Medical Advice Gastroenterology [address] [place] [address] Taz Faith MD [address] [place] [address] Question regarding COLONOSCOPY DIAGNOSTIC Social [...] N ot on file 02/25/2022 Data from: https://www.neighborhoodatlas.medicine.[facility].edu/. Last address used for calculation Mary Romero 02/25/2022 Comments No Sex and Gender Information Value Date Recorded Sex Assigned at Not on file Legal Sex Female 11:20 AM EST Gender Identity Not on file Sexual Orientation Not on file documented as of this encounter Miscellaneous Notes * Telephone Encounter - Ananya Ramirez - 11/11/2022 2:49 PM EDT Received call from patient , she's requesting a call to discuss the results of her colonoscopy on 10/25/22. Ananya Ramirez documented in this encounter Plan of Treatment Upcoming Encounters Date Type Department Care Team (Late st Contact Info) Description 11/18/2024 9:00 AM EDT Office Visit Vascular Surgery [address] [place] [id number] US CAROTID ARTERIES TORIN 11/18/2024 10:00 AM EDT Office Visit Vascular Surgery [address] [facility] [address] [place] [address] US ABD AORTA COMPLETE VAS 11/18/2024 11:00 AM EDT Office Visit Vascular Surg Dept [address] [facility] 300 [place] [address] Chris Esquivel MD [address] [facility] 300 [place] [address] 6 mth [place] f/u documented as of this encounter Visit Diagnoses Not on filedocumented in this encounter Care Teams Asparagus Cutter Relationship Specialty Start Date End Date Jose Roberto Cleary MD [address] [facility] 110 [place] [address] PCP - General Family Medicine 03/12/15 Sreekanth Quiroz MD [address] [facility] [address] [place] [address] Referring Neurology 11/20/19 documented as of this encounter
--- OUTSIDE RECORDS SUMMARY | 2024-07-18 15:27 | XMS_ITS | Encounter Summary ---
Author Organization [facility] Address [address] [place] [address] Care Team Providers Care Collective Bargaining Specialist Name Role Phone Jose Roberto Cleary MD Primary Care Provider [phone]- [phone] Sreekanth Quiroz MD Unavailable Source Comments In the event this information is protected by the Federal Confidentiality of Alcohol and Drug AbusePatient Records regulations: The Federal rules restrict any use of the information to criminally investigate or prosecute any alcohol or drug abuse patient.[facility] Encounter Details Date Type Department Care Team (Late st Contact Info) Description 03/30/2022 Patient Msg Colorectal Surgery [address] [place] [id number] Melody Hernandez, KIRILL.ASSEMBLER FOR PULLER OVER HAND [address] [place] [address] Appointment Social History Tobacco Use Types Packs/Day [...] N ot on file 02/25/2022 Data from: https://www.neighborhoodatlas.medicine.[facility].edu/. Last address used for calculation Mary [...] AM EDT Office Visit Vascular Surgery [address] [place] [address] US CAROTID ARTERIES TORIN 11/18/2024 10:00 AM EDT Office Visit Vascular Surgery [address] [facility] [address] [place] [address] US ABD AORTA COMPLETE VAS 11/18/2024 11:00 AM EDT Office Visit Vascular Surg Dept [address] [facility] [address] [place] [address] Chris Esquivel MD [address] [facility] [address] [place] [address] 6 mth [place] f/u documented as of this encounter Visit Diagnoses Not on filedocumented in this encounter Care Teams Collective Bargaining Specialist Relationship Specialty Start Date End Date Jose Roberto Cleary MD [address] [facility] [address] [place] [address] PCP - General Family Medicine 03/12/15 Sreekanth Quiroz MD [address] [facility] [address] [place] [address] Referring Neurology 11/20/19 documented as of this encounter
--- OUTSIDE RECORDS SUMMARY | 2024-07-18 15:27 | XMS_ITS | Encounter Summary ---
Author Organization [facility] Address [address] [place] [address] Care Team Providers Care Manager Analytical Name Role Phone Jose Roberto Cleary MD Unavailable Jose Roberto Cleary MD Primary Care Provider [phone] Farida Pride LPN Unavailable Unavailable Reason for Visit * Reason Onset Date Comments Med Refill 07/02/2024 Encounter Details Date Type Department Care Team (Late st Contact Info) Description 07/02/2024 Refill [facility] [address] [facility] 110 [place] [id number] Jose Roberto Cleary MD [address] [facility] [address] [place] [address] Adjustment disorder with anxiety (CMS/HCC); Neuralgia and neuritis, unspecified; Spondylosis without myelopathy or radiculopathy, lumbar region Social History Tobacco Use Types Packs/Day Years [...] How often do you attend chur or denominational services? 1 to 4 times per year [...] Recorded Patient Health Questionnaire-2 Score 0 04/18/2024 [facility] Occupat ional Health - Occupational Stress [...] encounter Miscellaneous Notes * Telephone Encounter - Fang Anderson - 07/03/2024 10:05 AM EDT Lvm * Telephone Encounter - Fang Anderson - 07/02/2024 2:17 PM EDT Lvm * Telephone Encounter - KASEY Guerra - 07/02/2024 12:46 PM EDT Please help pt get set up with Dr. Cleary for routine controlled medication follow up in the beginning of July. Thank you. OARRS reviewed, Rx sent into patient's pharmacy. * Telephone Encounter - Fang Monica - 07/02/2024 8:51 AM EDT ALPRAZolam (Xanax) 1 MG tablet And she said tramadol [facility] documented in this encounter Plan of Treatment Not on file documented as of this encounter Visit Diagnoses Diagnosis Adjustment disorder with anxiety (CMS/HCC) Adjustment disorder with anxiety Neuralgia and neuritis, unspecified Spondylosis without myelopathy or radiculopathy, lumbar region documented in this encounter Care Teams Manager Analytical Relationship Specialty Start Date End Date Jose Roberto Cleary MD [address] [facility] [address] [place] [address] PCP - ACO Reach 07/07/22 Jose Roberto Cleary MD [address] [facility] [address] [place] [address] PCP - General Family Medicine 08/03/22 Farida Pride LPN 05/07/24 documented as of this encounter
--- OUTSIDE RECORDS SUMMARY | 2024-07-18 15:27 | XMS_ITS | Encounter Summary ---
Author Organization [facility] Address [address] [place] [address] Care Team Providers Care Hand Cooper Helper Name Role Phone Jose Roberto Cleary MD Primary Care Provider +1- [phone] Sreekanth Quiroz MD Unavailable Source Comments In the event this information is protected by the Federal Confidentiality of Alcohol and Drug AbusePatient Records regulations: The Federal rules restrict any use of the information to criminally investigate or prosecute any alcohol or drug abuse patient.[facility] Encounter Details Date Type Department Care Team (Late st Contact Info) Description 03/29/2022 Get Medical Advice Gastroenterology [address] [place] [phone] Taz Faith MD [address] [place] [address] Same symptoms Social History Tobacco Use Types Packs/Day Years [...] N ot on file 02/25/2022 Data from: https://www.neighborhoodatlas.medicine.[facility].edu/. Last address used for calculation Mary Romero [...] AM EDT Office Visit Vascular Surgery [address] [place] [address] US CAROTID ARTERIES TORIN 11/18/2024 10:00 AM EDT Office Visit Vascular Surgery [address] [facility] [address] [place] [address] US ABD AORTA COMPLETE VAS 11/18/2024 11:00 AM EDT Office Visit Vascular Surg Dept [address] [facility] [address] [place] [address] Chris Esquivel MD [address] [facility] [address] [place] [address] 6 mth [place] f/u documented as of this encounter Visit Diagnoses Not on filedocumented in this encounter Care Teams Hand Cooper Helper Relationship Specialty Start Date End Date Jose Roberto Cleary MD [address] [facility] [address] [place] [address] PCP - General Family Medicine 03/12/15 Sreekanth Quiroz MD [address] [facility] [address] [place] [address] Referring Neurology 11/20/19 documented as of this encounter
--- OUTSIDE RECORDS SUMMARY | 2024-07-18 15:27 | XMS_ITS | Encounter Summary ---
Author Organization [facility] Address [address] [place] [address] Care Team Providers Care Dialysis Nurse Name Role Phone Jose Roberto Cleary MD Primary Care Provider +1- [phone] Sreekanth Quiroz MD Unavailable Source Comments In the event this information is protected by the Federal Confidentiality of Alcohol and Drug AbusePatient Records regulations: The Federal rules restrict any use of the information to criminally investigate or prosecute any alcohol or drug abuse patient.[facility] Encounter Details Date Type Department Care Team (Late st Contact Info) Description 04/27/2022 Patient Msg Gastroenterology [address] [place] [id number] Debbi Hammond APRN.MANAGER MECHANICAL [address] [place] [address] Checking in Social History Tobacco Use Types Packs/Day Years [...] N ot on file 02/25/2022 Data from: https://www.neighborhoodatlas.medicine.[facility].edu/. Last address used for calculation Mary Romero [...] AM EDT Office Visit Vascular Surgery [address] [place] [address] US CAROTID ARTERIES TORIN 11/18/2024 10:00 AM EDT Office Visit Vascular Surgery [address] [place] [address] US ABD AORTA COMPLETE VAS 11/18/2024 11:00 AM EDT Office Visit Vascular Surg Dept [address] [place] [address] [address] [place] [address] Chris Esquivel MD [address] [place] [address] 6 mth [place] f/u documented as of this encounter Visit Diagnoses Not on filedocumented in this encounter Care Teams Dialysis Nurse Relationship Specialty Start Date End Date Jose Roberto Cleary MD [address] [facility] [address] [place] [address] PCP - General Family Medicine 03/12/15 Sreekanth Quiroz MD [address] [facility] [address] [place] [address] Referring Neurology 11/20/19 documented as of this encounter
--- OUTSIDE RECORDS SUMMARY | 2024-07-18 15:27 | XMS_ITS | Encounter Summary ---
Author Organization [facility] Address [address] [place] [address] Phone Care Team Providers Care Small Offset Printer Name Role Phone Jose Roberto Cleary MD Primary Care Provider +1- [phone] Daniel Montano MD Unavailable [phone] Encounter Details Date Type Department Care Team (Late st Contact Info) Description 01/31/2023 Scanned Document [facility] [place] [address] [place] [address] Scanning, Generic Provider Social History [...] suspected to have Coronavirus/COVID-19? No / Unsure 01/20/2023 10:31 AM EST documented as of this encounter Plan of Treatment Upcoming Encounters Date Type Department Care Team (Late st Contact Info) Description 07/24/2025 12:30 PM EDT Office Visit [facility] [address] [facility] [address] [place] [phone] [place] [address] [facility] [address] [place] [address] documented as of this encounter Visit Diagnoses Not on filedocumented in this encounter Additional Health Concerns Assessment Noted Time A fall risk assessment has been complete d for the patient 11/21/2022 3:31 PM EDT documented as of this encounter Care Teams Small Offset Printer Relationship Specialty Start Date End Date Jose Roberto Cleary MD 112 [facility] 110 [place] [address] PCP - General 08/14/18 [place] [address] [facility] [address] [place] [address] Lead Electrician Nephrology 07/19/23 documented as of this encounter
--- OUTSIDE RECORDS SUMMARY | 2024-07-18 15:27 | XMS_ITS | Encounter Summary ---
Author Organization [facility] Address [address] [place] [address] Care Team Providers Care Glass Finisher Name Role Phone Jose Roberto Cleary MD Primary Care Provider +1- [phone] Sreekanth Quiroz MD Unavailable Source Comments In the event this information is protected by the Federal Confidentiality of Alcohol and Drug AbusePatient Records regulations: The Federal rules restrict any use of the information to criminally investigate or prosecute any alcohol or drug abuse patient.[facility] Encounter Details Date Type Department Care Team (Late st Contact Info) Description 11/29/2022 Patient Msg Gastroenterology [address] [phone] Kenton Kapadia MD [address] [address] results Social History Tobacco Use Types Packs/Day Years [...] N ot on file 02/25/2022 Data from: https://www.neighborhoodatlas.medicine.[facility].edu/. Last address used for calculation Mary Romero [...] AM EDT Office Visit Vascular Surgery [address] [place] [address] US CAROTID ARTERIES TORIN 11/18/2024 10:00 AM EDT Office Visit Vascular Surgery [address] [facility] [address] [place] [address] US ABD AORTA COMPLETE VAS 11/18/2024 11:00 AM EDT Office Visit Vascular Surg Dept [address] [facility] [address] [place] [address] Chris Esquivel MD [address] [facility] [address] [place] [address] 6 mth [place] f/u documented as of this encounter Visit Diagnoses Not on filedocumented in this encounter Care Teams Glass Finisher Relationship Specialty Start Date End Date Jose Roberto Cleary MD [address] [facility] [address] [place] [address] PCP - General Family Medicine 03/12/15 Sreekanth Quiroz MD [address] [facility] [address] [place] [address] Referring Neurology 11/20/19 documented as of this encounter
--- OUTSIDE RECORDS SUMMARY | 2024-07-18 15:27 | XMS_ITS | Encounter Summary ---
Author Organization [facility] Address [facility] [place] [address] Care Team Providers Care Stereotyper Helper Name Role Phone Jose Roberto Cleary MD Primary Care Provider +1- [phone] Sreekanth Quiroz MD Unavailable Source Comments In the event this information is protected by the Federal Confidentiality of Alcohol and Drug AbusePatient Records regulations: The Federal rules restrict any use of the information to criminally investigate or prosecute any alcohol or drug abuse patient.[facility] Encounter Details Date Type Department Care Team (Late st Contact Info) Description 10/28/2021 Patient Msg Gastroenterology [address] [phone] Taz Faith MD [address] [place] [address] Colonoscopy prep Social History Tobacco [...] suspected to have Coronavirus/COVID-19? No / Unsure 10/29/2021 10:05 AM EDT documented as of this encounter Plan of Treatment Upcoming Encounters Date Type Department Care Team (Late st Contact Info) Description 11/18/2024 9:00 AM EDT Office Visit Vascular Surgery [address] [place] [address] US CAROTID ARTERIES TORIN 11/18/2024 10:00 AM EDT Office Visit Vascular Surgery [address] [facility] [address] [place] [address] US ABD AORTA COMPLETE VAS 11/18/2024 11:00 AM EDT Office Visit Vascular Surg Dept [address] [facility] [address] [place] [address] Chris Esquivel MD [address] [address] 6 mth [place] f/u documented as of this encounter Visit Diagnoses Not on filedocumented in this encounter Care Teams Stereotyper Helper Relationship Specialty Start Date End Date Jose Roberto Cleary MD [address] [address] PCP - General Family Medicine 03/12/15 Sreekanth Quiroz MD [address] [address] Referring Neurology 11/20/19 documented as of this encounter
[2024-07-18 15:55] LABS: Anion Gap 10.5; BUN Creatinine Ratio 20.6; Calcium 9.6 mg/dL (8.5-10.1); Carbon Dioxide 30.4 mmol/L (21.0-32.0); Chloride 103 mmol/L (98-107); Estimated GFR (African America 50 (>=60 mL/min/1.73m^2); Estimated GFR (Non-African Ame 42 (>=60 mL/min/1.73m^2); Glucose 96 mg/dL (74-106); Potassium 3.9 mmol/L (3.5-5.1); Sodium 140 mmol/L (136-145)
== END 2024-07-18 15:21 | disposition home or self-care (01) ==
LOC: LAB 15:23
PROVIDERS: PCP Family Medicine; Visit Provider Internal Medicine
DX: I10 Essential (primary) hypertension (principal)
CPT/HCPCS: 36415; 80048

== ENCOUNTER 2024-07-25 01:31 | Observation (INO) | payer MEDICARE, BC, SELFPAY ==
--- OUTSIDE RECORDS SUMMARY | 2024-07-18 12:00 | XMS_ITS | Encounter Summary ---
Author Organization [facility] Address [address] [place] [address] Phone Care Team Providers Care Prototype Model Maker Name Role Phone Jose Roberto Cleary MD Primary Care Provider [phone] Daniel Montano MD Unavailable [phone] Reason for Visit * Reason Comments Follow-up Chronic Kidney Disease Encounter Details Date Type Department Care Team (Late st Contact Info) Description 07/18/2024 12:00 PM EDT Office Visit [facility] [address] [place] [phone] [place] [address] [place] [address] Essential hypertension (Primary Dx) Social [...] PM EDT Rebeca Jimenez 73 y.o. @WT@ [facility]/Room: [id number]/Room/bed info not found Subjective: The patient is [...] Description 07/24/2025 12:30 PM EDT Office Visit [facility] [address] [place] [phone] [place] [address] [place] [address] Scheduled Orders Name Type Priority Associated Diagnoses [...] documented as of this encounter Care Teams Prototype Model Maker Relationship Specialty Start Date End Date Jose Roberto Cleary MD [address] [facility] [address] [place] [address] PCP - General 08/14/18 [place] [address] [place] [address] Steam Box Operator Nephrology 07/19/23 documented as of this encounter
[2024-07-25] VITALS (39 sets, daily range): BP systolic 98–155; BP diastolic 67–111; PULSE 58–119; TEMP 36.3–36.8; O2SAT 87–98; BMI 32.0
--- NOTE | 2024-07-25 01:53 | XR_ITS ---
[address] [address] Patient Name: DIANELYS WOMACK MRN: [id number] date: 1950 Sex: F Assigned Patient Location: ER Current Patient Location: ED.MAIN Accession/Order Number: [id number] Exam Date: 07/25/2024 06:45 Report Date: 07/25/2024 06:49 At the request of: DELMA GIBBS MD Procedure: XR chest 1V Plain film chest Single view HISTORY: Chest pain COMPARISON: 05/06/2023 FINDINGS: SUPPORT DEVICES: None POSTSURGICAL CHANGES: None HEART: Similar borderline cardiomegaly PULMONARY ARLETTE: Mild hilar vascular congestion MEDIASTINUM: Unremarkable LUNGS AND PLEURA: No acute lung process, pleural effusion or pneumothorax identified. Minor basilar interstitial changes. Decreased aeration. BONY STRUCTURES: Intact ADDITIONAL FINDINGS None XR/XR chest 1V IMPRESSION: Borderline cardiomegaly with mild hilar congestion. Minor basilar interstitial changes. Possible mild pulmonary edema versus decreased aeration. Impression dictated by: Nick Gimenez M.D. 07/25/2024 6:49 AM Dictation Location: [place] [address] Electronically authenticated by: [id number] Y Date: 07/25/2024 06:49
--- NOTE | 2024-07-25 01:53 | ECG_ITS ---
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 Measurements Intervals [place] Rate: 111 P: 9 MO: 182 QRS: -85 QRSD: 94 T: 55 QT: 324 QTc: 390 Interpretive Statements 1120 Sinus tachycardia with occasional ventricular premature complexes 2630 Left anterior fascicular block 8003 Consistent with pulmonary disease 9150 abnormal ECG Compared to ECG 05/06/2023 15:49:15 Sinus arrhythmia no longer present Incomplete right bundle-branch block no longer present Electronically Signed On 07-25-2024 18:35:29 EDT by MARIS IZAGUIRRE M.D.
[2024-07-25 02:10] LABS: Basophils Percent Auto 0.4 % (0.2-2.0); Eosinophils Absolute Auto 0.2 10^3/uL (0.0-0.7); Eosinophils Percent Auto 1.6 % (0.9-7.0); Hematocrit 39.7 % (36.0-48.0); Hemoglobin 12.7 g/dL (12.0-16.0); Immature Granulocytes Abs Auto 0.04 10^3/uL (0.00-0.03); Immature Granulocytes Pct Auto 0.4 % (0.0-0.5); Lymphocytes Absolute Auto 1.4 10^3/uL (1.2-3.8); Lymphocytes Percent Auto 12.3 % (20.5-60.0); Mean Corpuscular Hemoglobin 25.3 pg (26.7-34.0); Mean Corpuscular Volume 79.2 fL (81.0-99.0); Mean Platelet Volume 9.6 fL (9.5-13.5); Monocytes Absolute Auto 0.8 10^3/uL (0.3-0.8); Monocytes Percent Auto 6.8 % (1.7-12.0); Neutrophils Absolute Auto 8.6 10^3/uL (1.4-6.5); Neutrophils Percent Auto 78.5 % (43.0-75.0); Platelet Count 178 10^3/uL (150-450); Red Blood Count 5.01 10^6/uL (4.20-5.40); Red Cell Distribution Width 17.3 % (11.0-15.0)
--- OUTSIDE RECORDS SUMMARY | 2024-07-25 02:14 | XMS_ITS | CCD ---
Author Organization [facility] Inform ion Partnership [facility] Care Team Providers Care Armed Security Officer Name Role Phone Monika Lehman Unavailable Unavailable Unavailable MD Monika Lehman Primary Care Provider [phone] MD Nick Acosta Attending Provider [phone] MD Daniel Ma Attending Provider [phone] Nick Acosta Unavailable Monika Lehman Primary Care Provider Aman Quiroz MD Unavailable Monika Lehman Primary Care Provider Aman Quiroz MD Unavailable MD Monika Lehman Primary Care Provider [phone] MD Chucho Saldaña Emergency Provider [phone] Monika Lehman Primary Care Provider Aman Quiroz MD Unavailable DR MONIKA LEHMAN Primary Care Unavailable FOREST, DR TESS Valente Attending Unavailable FOREST, DR TESS Valente Admitting Unavailable OSEGUERAMARANDA ESQUIVEL Consulting Unavailable FALLON, DR FRANK Primary Care Unavailable HEMMER, DR ERICA Washington Attending Unavailable HEMMER, DR ERICA Washington Admitting Unavailable ZIEBER, DR NATALIE Meza Consulting Unavailable HEMMER, DR ERICA Washington Consulting Unavailable FALLON, DR FRANK Primary Care Unavailable FALLON, DR FRANK Consulting Unavailable FALLON, DR FRANK Attending Unavailable FALLON, DR FRANK Admitting Unavailable FALLON, DR FRANK Primary Care Unavailable CARMEN DALLAS Attending Unavailable CARMEN DALLAS Admitting Unavailable CARMEN DALLAS Consulting Unavailable FILIPPONE, DELISA Consulting Unavailable Piotr, Ms. Seema Triplettmichael Romero Attending Wanda Saldaña, Bubba Seema Triplettmichael Romero Referring Unavai lable [place], Dr. Monika Funes [facility] Unavaila ble Francesca, Daniel Attending Unavailable Francesca, Daniel Referring Unavailable Fallon, Dr. Monika Funes [facility] Unavaila ble Francesca, Daniel Attending Unavailable Francesca, Daniel Referring Unavailable Fallon, Dr. Monika Funes [facility] Unavaila ble Piotr, Bubba Seema Triplettmichael Romero Attending Wanda Saldaña, Bubba Seema Triplettmichael Romero Referring Unavai lable Fallon, Dr. Monika Funes [facility] Unavaila blaise Lehman MD, Monika Funes Primary Care Provider [phone] Monika Lehman MD [facility] Provider [phone] Fallon SANTIZO, Monika Funes Primary Care Provider [phone] Monika Lehman MD Unavailable Monika Lehman MD Primary Care Provider [phone] Francesca SANTIZO, Daniel Unavailable Belen Barr RN Unavailable [phone] MONIKA LEHMAN Attending Unavailable MONIKA LEHMAN Attending Unavailable ЕЛЕНА MG Attending Unavailable MONIKA LEHMAN Attending Unavailable ERICA MARTINEZ Attending Unavailable AMAN QUIROZ Attending Unavailable MONIKA LEHMAN Attending Unavailable ЕЛЕНА MG Attending Unavailable ЕЛЕНА MG Attending Unavailable MONIKA LEHMAN Attending Unavailable Apple GroveMonika mitchell [facility] Provider [phone] Aman Quiroz MD Unavailable Monika Lehman Primary Care Unavailable Nick Acosta Attending Unavailable Nick Acosta Admitting Unavailable Pride PICKER OPERATOR, Farida Unavailable Unavailable MONIKA LEHMAN Primary Care Unavailable CHRIS TORRES Referring Unavailable CHRIS TORRES Referring Unavailable FALLONMONIKA Mitchell Primary Care Unavailable CHRIS TORRES Attending Unavailable [facility]ONMON[facility]ACLE[facility] Primary Care Unavailable FRANCESCA, DANIEL Attending Unavailable FALLONMONIKA MitchellMichael Primary Care Unavailable DANIEL MA Attending Unavailable [facility]HMAN [facility] Unavailable Daniel Ma MD Unavailable Allergies Allergy Classification Reported Allergen(s) Allergy Type Date of Onset Reaction(s) Facility Nitroimidazoles (antibiotic) (1 source) metroNIDAZOLE Drug Allergy 3 Other [facility] Work Phone: Penicillins (antibiotic) (1 source) Penicillins Drug Allergy 3 Other [facility] Work Phone: Quinolones (antibiotic) (1 source) Ciprofloxacin Drug Allergy 3 Other [facility] (20 sources) Ciprofloxacin; Translations: [ciprofloxacin] Drug Allergy 1 Unknown, Other [facility] (20 sources) metroNIDAZOLE; Translations: [Flagyl] Drug Allergy 7 Unknown, Other [facility] (13 sources) Penicillins; Translations: [Penicillins] Allergy to drug (finding) 6 Unknown, Other: See Comments -[facility] y [facility] DO Work Phone: (4 sources) metroNIDAZOLE; Translations: [metronidazole] Drug Allergy 7 [facility] (20 sources) Vancomycin; Translations: [vancomycin] Drug Allergy 2 [facility] (20 sources) levoFLOXacin; Translations: [LEVOFLOXACIN] Drug Allergy 6 Unknown [facility] (20 sources) Penicillins Drug Allergy 6 Unknown, Other: See Comments, Other [facility] (20 sources) Seasonal allergy; Translations: [SEASONAL ALLERGIES] Allergy to substance 1 Unknown [facility] (20 sources) Soy protein; Translations: [soy] Drug Allergy 6 Unknown [facility] (1 source) Amoxicillin / Clavulanate Drug Allergy 6 [facility] (1 source) Ciprofloxacin Drug Allergy 7 [facility] (1 source) levoFLOXacin Drug Allergy 6 [facility] (1 source) metroNIDAZOLE Drug Allergy 7 [facility] (1 source) Misc-Food; Translations: [Misc-Food] Food allergy (disorder) 6 [facility] (20 sources) Penicillins Drug Allergy 6 Unknown, Other [facility] (20 sources) Octacosanol Drug Allergy 1 Unknown [facility] (1 source) Ciprofloxacin Drug Allergy 5 [facility] (4 sources) Penicillins Drug Allergy 6 Unknown, Other: See Comments, Other [facility] Medications Current Medications Medication Drug Class(es) Dates Sig (Normalized) Sig (Original) [id number] 200 actuat albuterol 0.09 mg/actuat metered dose inhaler (15 sources) beta2-Adrenergic Agonist Start: 02-20-2024 End: 02-19-2025 take 2 puff(s) by inhalation every four hours for wheezing albuterol HFA 90 mcg/act inhaler Indications: Other emphysema (CMS/HCC) , Chronic obstructive pulmonary disease, unspecified , Mixed simple and mucopurulent chronic bronchitis (CMS/HCC) Inhale 2 puffs every 4 (four) hours if needed for wheezing 18 g 02/20/2024 02/19/2025 Active ALPRAZolam 1 mg oral tablet (20 sources) Benzodiazepine Start: 07-02-2024 End: 08-01-2024 take 1 tablet by mouth twice daily as needed for anxiety ALPRAZolam (Xanax) 1 MG tablet Indications: Adjustment disorder with anxiety (CMS/HCC) Take 1 tablet (1 mg) by mouth 2 (two) times a day as needed for anxiety 60 tablet 07/02/2024 08/01/2024 Active Start: 11-17-2021 take 1 mg by mouth once daily Alprazolam Active 1 MG PO Daily November 17, 2021 12:00am Start: 07-21-2021 End: 05-17-2024 take 1 tablet by mouth twice daily as needed for anxiety ALPRAZolam (Xanax) 1 MG tablet Indications: Adjustment disorder with anxiety (CMS/HCC) Take 1 tablet (1 mg) by mouth 2 (two) times a day as needed for anxiety 60 tablet 04/17/2024 Active take 1 tablet by nayeli th [...] mg by mouth a s needed. amLODIPine 5 mg oral tablet (20 sources) Dihydropyridine Calcium Channel Barry Start: 09-19-2023 amLODIPine (Norvasc) 10 mg tablet Indications: Essential (primary) hypertension TAKE 1 TABLET DAILY 90 tablet 3 09/19/2023 Active Start: 07-26-2023 End: 07-25-2024 take 1.5 tablets by mouth once daily amLODIPine (Norvasc) 10 MG tablet Indications: Hypertension Take 1.5 tablets (15 mg) by mouth Daily 135 tablet 3 07/26/2023 02/20/2024 Discontinued (Side effects) Start: 05-03-2021 End: 08-07-2024 take 1 tablet by mouth in the morning amLODIPine (Norvasc) 5 MG tablet Take 5 mg by mouth in the morning. 05/09/2024 08/07/2024 Active Start: 05-03-2021 take 1 tablet by nayeli th in the morning amLODIPine (Norvasc) 10 MG tablet Take 10 mg by mouth in the morning. 0 06/21/2022 Active take 1.5 tablets by mouth once [...] b complex vitamins (Vitamins B Complex) capsule (4 sources) take 1 capsule by mouth once daily b complex vitamins (Vitamins B Complex) capsule Take 1 capsule by mouth once daily. Active take 1 capsule by mouth once edward ly b complex vitamins (Vitamins B Complex) capsule Take 1 capsule by mouth once daily. 0 Active b complex vitamins capsule (15 sources) take 1 capsule by mouth once [...] Active docusate sodium 100 mg oral capsule (15 sources) Start: 023 take 1 capsule by mouth twice daily as needed for constipation docusate sodium (Colace) 100 MG capsule Indications: Chronic idiopathic constipation Take 1 capsule (100 mg) by mouth 2 (two) times a day as needed for constipation. 200 capsule 3 08/01/2022 Active take 1 tablet by nayeli th twice daily as needed docusate sodium (Colace) 100 mg tablet Take 1 tablet (100 mg) by mouth 2 times a day as needed. Active take 1 tablet by mouth once antonio y Docusate Sodium 100 MG Oral Tablet Take 1 tablet daily Quantity: 0 Refills: 0 Ordered: 03-May-2021 DO Active ergocalciferol 1.25 mg oral capsule (20 sources) Provitamin D2 Compound Start: 01-13-2024 End: 12-14-2024 take 1 capsule by mouth every week ergocalciferol (Vitamin D2) 1.25 MG (82963 UT) capsule Indications: Vitamin D deficiency Take [...] oral tablet (20 sources) Loop Diuretic Start: End: take 1 tablet by mouth once daily furosemide (Lasix) 20 MG tablet Indications: Spondylosis without myelopathy or radiculopathy, lumbar region Take 1 tablet (20 mg) by mouth Daily 90 tablet 1 02/09/2024 08/07/2024 Active gabapentin 600 mg oral tablet (20 sources) Anti-epileptic Agent Start: 2 End: 4 take 1 tablet by mouth at [...] directed Orally Active take 1 capsule by [facility] every twenty-four hours Gabapentin 400 MG [...] bromide 0.042 mg/actuat metered dose nasal spray (20 sources) Anticholinergic take 2 spray(s) nasal route every eight hours ipratropium (Atrovent) 0.06 % nasal spray Administer 2 sprays into each nostril every 8 (eight) hours. Active Lactobacillus acidophilus (20 sources) Lactobacillus acidophilus (PROBIOTIC ORAL) Take by mouth once daily. Active Lactobacillus ac idophilus (PROBIOTIC ORAL) Take by mouth once daily. 0 Active Comment on above: Take by mouth once d aily. levothyroxine sodium 0.2 mg oral tablet (20 sources) l-Thyroxine Start: 2 End: 4 take 1 tablet by mouth in the morning, then take 1 tablet by mouth once daily before mealtime, then take 0.5 tablet by mouth in the morning levothyroxine (Synthroid, Levoxyl) 200 MCG tablet Indications: Hypothyroidism, unspecified Take 1 tablet (200 mcg) by [...] Active Comment on above: once daily. Magnesium (20 sources) magnesium 250 MG tablet 1 (one) time each day at the same time. Active magnesium 250 MG tablet 1 (one) time each day at the same time. 0 Active Magnesium 400 MG as directed Orally Not-Taking Misc Natural Products (YumVs Beet Root-Tart Aguilera) 250-0.5 MG chewable tablet (13 sources) Misc Natural Pro ducts (YumVs Beet Root-Tart Aguilera) 250-0.5 MG chewable tablet Chew Daily as needed (pt does not take this daily, but does take it when she thinks about it.) Active neomycin sulfate 500 mg oral tablet (20 sources) Aminoglycoside Antibacterial Start: 02-24-19 23 neomycin 500 mg tablet Take 2 tablets by mouth at 9pm and take 2 tablets by mouth at 11pm the night before surgery. 4 tablet 02/24/2022 Active Comment on above: Take 2 tablets by mo ut at 9pm and take 2 tablets by mouth at 11pm the night before surgery. omeprazole 40 mg delayed release oral capsule (20 sources) Proton Pump Inhibitor Start: 04-17-19 25 take 1 capsule by mouth once daily omeprazole (PriLOSEC) [address] capsule Indications: Gastroesophageal reflux disease without esophagitis Take 1 capsule (40 mg) by mouth Daily Do not crush or chew. 100 capsule 3 04/16/2024 Active Start: 11-17-2021 take 1 capsule by mo uth once daily omeprazole (PriLOSEC) [address] capsule Indications: Gastroesophageal reflux disease without esophagitis TAKE 1 CAPSULE BY MOUTH EVERY DAY 100 capsule 3 10/17/2023 Active take 40 mg by mouth once daily OMEPRAZOLE ORAL Take 40 mg by mouth once daily. Active Comment on above: Take 40 mg by mouth once daily. ondansetron 4 mg oral tablet (20 sources) Serotonin-3 Receptor Antagonist Start: 11-17-2021 ondansetron (ZOFRAN) 4 mg tablet as needed. 11/17/2021 Active Ondansetron HCl - 4 MG Oral Tablet PRN Quantity: 0 Refills: 0 Ordered: 22-Mar-2022 DO Active Comment on above: as needed. polyethylene glycol 3350 17924 mg powder for oral solution (4 sources) [...] oral tablet (20 sources) Start: 02-27-19 End: 03-15-19 take 1 tablet by mouth once daily potassium chloride CR (KLOR-CON) 20 MEQ ER tablet Indications: Hypokalemia Take 1 tablet (20 mEq) by mouth Daily 100 tablet 3 02/09/2024 02/20/2024 Discontinued (Therapy completed) Start: 11-17-2021 take 20 mEq by mouth once antonio y Potassium Chloride Active 20 MEQ PO Daily November 17, 2021 12:00am Start: 10-07-2021 End: 07-18-2024 take 1 tablet by mouth twice daily potassium chloride CR 20 mEq ER tablet Indications: Essential hypertension Take 1 tablet (20 mEq) by mouth 2 times a day. 180 tablet 3 07/24/2023 07/18/2024 Discontinued (Med List Cleanup) take 1 tablet by nayeli th once daily Potassium Chloride Rose ER 20 MEQ Oral Tablet Extended Release TAKE 1 TABLET DAILY. Quantity: 0 Refills: 0 Ordered: 03-May-2021 DO Active Comment on above: Take 20 mEq by mouth twice daily. Probiotic Product (PROBIOTIC BLEND PO) (20 sources) Probiotic Produc t (PROBIOTIC BLEND PO) [...] 0 Active spironolactone 25 mg oral tablet (20 sources) Aldosterone Antagonist Start: 02-20-2024 End: 05-20-2024 take 1 tablet by mouth once daily spironolactone (Aldactone) 25 MG tablet Indications: Localized swelling of both lower extremities TAKE 1 TABLET BY MOUTH EVERY DAY 90 tablet 04/25/2024 Active traMADol hydrochloride 50 mg oral tablet (20 sources) Opioid Agonist Start: 07-02-2024 End: 08-01-2024 take 1 tablet by mouth every six hours for pain traMADol (Ultram) 50 MG tablet Indications: Neuralgia and neuritis, unspecified , Spondylosis without myelopathy or radiculopathy, lumbar region Take 1 tablet (50 mg) by mouth every 6 (six) hours if needed for moderate pain 120 tablet 07/02/2024 08/01/2024 Active Start: 12-23-2021 End: 05-17-2024 traMADol (ULTRAM) 50 mg tabl et as needed. 12/23/2021 Active Start: 11-17-2021 take 50 mg [...] x (B COMPLEX ORAL) Take by mouth. Active vitamin B comple x (B COMPLEX ORAL) Take by mouth. 0 Active Comment on above: Take by mouth. Completed/Discontinued Medications Medication Drug Class(es) Dates Sig (Normalized) Sig (Original) 10 ml aminophylline 25 mg/ml injection (2 sources) Start: 05-28-2024 End: 05-28-2024 aminophylline 50-250 mg injection Start: 05-28-2024 End: 05-28-2024 50-250 mg, INTRAVENOUS, D IRECTED NEEDED, 1 dose, Starting on Mon05/28/24 at 1516, Until Mon05/28/24 at 1400, Per-Protocol - for use during STRESS TEST procedure only to be used for reversal of regadenason, - NONCYTOTOXIC VESICANT -, Cardiac Procedure Med Orders Astelin 137 MCG/SPRAY (2 sources) take 1 puff(s) nasal route twice daily Astelin 137 MCG/SPRAY 1 puff in each nostril Nasally Twice a day Not-Taking atropine sulfate 0.025 mg / diphenoxylate hydrochloride 2.5 mg oral tablet (2 sources) Anticholinergic, Cholinergic Muscarinic Antagonist, Antidiarrheal Start: 04-03-19 End: 04-08-19 take 1 tablet by mouth four times daily as needed for diarrhea diphenoxylate-atrop ine (Lomotil) 2.5-0.025 MG tablet Indications: Loose stools Take 1 tablet by mouth 4 (four) times a day as needed for diarrhea for up to 5 days 20 tablet 04/03/2024 04/08/2024 B Complex Vitamins (VITAMIN B COMPLEX 100 IJ) (8 sources) End: 01-17-20 B Complex Vitamins (VITAMIN B COMPLEX 100 IJ) Take 100 Int'l Units by mouth in the morning. 01/17/2024 Discontinued (Other) B Complex Vitami ns (VITAMIN B COMPLEX 100 IJ) Take 100 Int'l Units by mouth in the morning. Active B Complex Vitami ns (VITAMIN B COMPLEX 100 IJ) Take 100 Int'l Units by mouth in the morning. 0 Active bifidobacterium animalis [id number] unt / lactobacillus acidophilus [id number] unt oral capsule (3 sources) Probiotic CAPS [...] in the CT contrast administration guidelines link. 10 ml lidocaine hydrochloride 20 mg/ml injection (4 sources) Antiarrhythmic, Amide Local Anesthetic Start: 03-21-2024 End: 03-21-2024 lidocaine (Xylocaine) 2 % injection 40 mg Start: 03-21-2024 End: 03-21-2024 40 mg (2 mL), Injection, Onc e, On [facility] 03/21/24 at 1630, For 1 dose Start: 03-21-2024 End: 03-21-2024 lidocaine (Xylocaine) 2 % in jection 40 mg Start: 03-21-2024 End: 03-21-2024 40 mg (2 mL), Injection, Onc e, On [facility] 03/21/24 at 1630, For 1 dose montelukast 10 mg oral tablet (2 sources) Leukotriene Receptor Antagonist take 1 tablet by mouth every twenty-four hours Montelukast Sodium 10 MG 1 tablet Orally Once a day Not-Taking predniSONE 20 mg oral tablet (5 sources) Start: 04-03-19 End: 04-08-19 take 2 tablets by mouth once daily predniSONE (Deltasone) 20 MG tablet Indications: Acute bronchitis, unspecified organism Take 2 tablets (40 mg) by mouth Daily for 5 days 10 tablet 04/03/2024 04/08/2024 Start: 01-17-2024 End: 01-22-2024 take 2 tablets by mouth once daily [...] Ordered: 17-Aug-2021 DO Start : 17-Aug-2021 Complete regadenoson 0.4 mg injection (LEXISCAN) (2 sources) Start: 05-28-2024 End: 05-28-2024 regadenoson 0.4 mg injection (LEXISCAN) Start: 05-28-2024 End: 05-28-2024 0.4 mg, INTRAVENOUS, DIRE CTED NEEDED, 1 dose, Starting on Mon05/28/24 at 1516, Until Mon05/28/24 at 1400, Per-Protocol - for use during STRESS TEST procedure only, Give 0.4 mg (5 mL) over ~10 seconds, followed immediately by a 5 mL saline flush. Wait 10-20 seconds, then administer the radionuclide myocardial perfusion imaging agent., Cardiac Procedure Med Orders rifAXIMin 550 mg oral tablet (2 sources) Rifamycin Antibacterial take 1 tablet by mouth once daily Xifaxan 550 MG Oral Tablet one tablet daily Quantity: 0 Refills: 0 Ordered: 20-Jul-2021 DO Active tiZANidine 4 mg oral tablet (7 sources) Central alpha-2 Adrenergic Agonist Start: 4 End: 5 take 1 tablet by mouth [...] Oral for 30 Not-Taking Vitamin B Complex CAPS (5 sources) Vitamin [...] Problem Date Documented Da te Episodic/Chronic Acute bronchitis (2 sources) Acute bronchitis; Translations: [Acute bronchitis, unspecified] 04-03-2024 Episodic Acute cerebrovascular disease (20 sources) Cerebrovascular accident; Translations: [Cerebral infarction, unspecified] Onset: 2 Chronic Adjustment disorders (20 sources) Adjustment disorder with anxious mood; Translations: [...] (moderate)] Onset: 8 Resolved: 4 Chronic Chronic obstructive pulmonary disease and bronchiectasis (20 sources) Chronic obstructive lung disease; Translations: [Chronic obstructive pulmonary disease, unspecified] Onset: 8 08-22-2022 Chronic Delirium, dementia, and amnestic and other cognitive disorders (20 sources) Dementia; Translations: [Unspecified dementia without behavioral [...] hypertension] Onset: 5 Chronic Heart valve disorders (20 sources) Aortic valve sclerosis; 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] Onset: 9 08-22-2022 Chronic Hepatitis (2 sources) Nonalcoholic steatohepatitis; Translations: [Nonalcoholic steatohepatitis (BISWAS)] Chronic Immunizations and screening for infectious disease (4 sources) Patient encounter status; Translations: [Encounter for immunization] 01-17-2024 Episodic Mood disorders (20 sources) Reactive depression (situational); Translations: [Major depressive disorder, single episode, unspecified] Onset: 3 12-26-2022 Chronic Nausea and vomiting (1 source) Nausea; Translations: [Nausea] Episodic Neoplasms of unspecified nature or uncertain behavior (1 source) Neoplasm of uncertain behavior of colon; Translations: [Neoplasm of uncertain behavior of colon] Episodic Nutritional deficiencies (20 sources) Vitamin D [...] Episodic Other connective tissue disease (3 sources) Neuropathy; Translations: [Neuralgia and neuritis, unspecified] 12-20-2023 Episodic Other connective tissue disease (2 sources) Cramp; Translations: [Cramp and spasm] 01-17-2024 Episodic Other connective tissue disease (2 sources) Bilateral localized swelling of lower limbs; Translations: [Other specified soft tissue disorders] 02-20-2024 Episodic Other ear and sense organ disorders (20 sources) Hearing loss; Translations: [Unspecified hearing loss, unspecified ear] Onset: 0 08-22-2022 Chronic Other ear and sense organ disorders (2 sources) Excessive cerumen in ear canal ; Translations: [Impacted cerumen, left ear] 12-20-2023 Episodic Other endocrine disorders (20 sources) Hyperparathyroidism; Translations: [Hyperparathyroidism, unspecified] Onset: 4 08-07-2023 Chronic Other gastrointestinal disorders (4 sources) Irritable bowel syndrome with diarrhea; Translations: [IRRITABLE BOWEL SYND W/DIARRHEA] Onset: 2 Chronic Other gastrointestinal disorders (20 sources) Irritable bowel syndrome; Translations: [Irritable bowel syndrome without diarrhea] Onset: 3 08-22-2022 Chronic Other gastrointestinal disorders (2 sources) Irritable bowel syndrome with diarrhea; Translations: [Irritable bowel syndrome with diarrhea] 04-14-2024 Chronic Other gastrointestinal disorders (4 sources) Diarrhea; Translations: [Diarrhea, unspecified] Episodic Other gastrointestinal disorders (2 sources) Loose stool; Translations: [Other fecal abnormalities] 04-03-2024 Episodic Other hereditary and degenerative nervous system conditions (2 sources) Hereditary ataxia; 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, unspecified] 02-20-2024 Chronic Other liver diseases (20 sources) Steatosis of liver; Translations: [Fatty (change of) liver, not elsewhere classified] Onset: 1 08-22-2022 Chronic Other liver diseases (20 sources) Non-alcoholic fatty liver disease without non-alcoholic steatohepatitis; Translations: [Fatty (change of) liver, not elsewhere classified] Onset: 1 08-22-2022 Chronic Other nervous system disorders (7 sources) Polyneuropathy; Translations: [Polyneuropathy, unspecified] Onset: 0 10-11-2022 Chronic Other nervous system disorders (20 sources) Chronic pain; Translations: [Other chronic pain] Onset: 7 08-22-2022 Chronic Other nervous system disorders (20 sources) Toxic polyneuropathy; Translations: [Polyneuropathy due to other toxic agents] Onset: 0 08-07-2023 Chronic Other nervous system disorders (2 sources) Chronic pain syndrome; Translations: [Chronic pain syndrome] 01-17-2024 Chronic Other nervous system disorders (1 source) Numbness; Translations: [Anesthesia of skin] 03-24-2023 Episodic Other nutritional; endocrine; and metabolic disorders (20 sources) Obesity; Translations: [Obesity, unspecified] Onset: 3 11-20-2022 Chronic Other screening for suspected conditions (not mental disorders or infectious disease) (1 source) Encounter for screening for cardiovascular disorders; Translations: [Encounter for screening for cardiovascular disorders] Onset: 5 Episodic Other upper respiratory disease (20 sources) Seasonal allergy; Translations: [Other seasonal allergic rhinitis] Onset: 3 08-22-2022 Chronic Other upper respiratory disease (20 sources) Chronic rhinitis; Translations: [Chronic rhinitis] Onset: 1 08-22-2022 Chronic Peripheral and visceral atherosclerosis (20 sources) Generalized atherosclerosis; Translations: [Generalized atherosclerosis] Onset: [...] Onset: 6 12-06-2021 Chronic Unclassified (1 source) LOW BACK PAIN, UNSPECIFIED; Translations: [LOW BACK PAIN, UNSPECIFIED] Onset: 2 Unclassified (3 sources) Patient encounter status 05-09-2024 Unclassified (1 source) Pararenal abdominal aortic aneurysm (AAA) without rupture; Translations: [Pararenal abdominal aortic aneurysm (AAA) without rupture] Onset: 5 Past or Other Problems Problem Classification Problem Date Documented Da te Episodic/Chronic Abdominal pain (20 sources) Abdominal pain; Translations: [Unspecified abdominal pain] Onset: 04-24-2023 Episodic Complications of surgical procedures or medical care (20 sources) Difficult intubation; Translations: [Failed or difficult intubation, initial encounter] Onset: 02-24-2022 02-24-2022 Episodic Conditions associated with dizziness or vertigo (20 sources) Dizziness; Translations: [Dizziness and giddiness] Onset: 04-02-2019 11-20-2022 Episodic E Codes: Fall (20 sources) Fall in home; Translations: [Unspecified fall, initial encounter] Onset: 12-26-2022 12-26-2022 Episodic Fluid and electrolyte disorders (20 sources) Hypokalemia; Translations: [Hypopotassemia] Onset: 10-21-2021 11-17-2021 Episodic Nutritional deficiencies (20 sources) Cobalamin deficiency; Translations: [Deficiency of other specified B group vitamins] Onset: 10-07-2022 10-07-2022 Episodic Other aftercare (1 source) Other long term care pharmacist (current) drug therapy; Translations: [OTH NURSING HOME CURRENT DRUG THERAPY] Onset: 10-21-2021 Episodic Other aftercare (15 sources) Long-term current use of diuretic; Translations: [Encounter for therapeutic drug level monitoring] Onset: 03-05-2024 03-05-2024 Episodic Other connective tissue disease (4 sources) Pain in left arm; Translations: [PAIN IN LEFT ARM] Onset: 09-13-2021 Episodic Other connective tissue disease (20 sources) Spasm of cervical paraspinous muscle; Translations: [Other muscle spasm] Onset: 08-08-2022 08-08-2022 Episodic Other connective tissue disease (20 sources) Neurogenic pain; Translations: [Neuralgia and neuritis, unspecified] Onset: 10-07-2022 10-07-2022 Episodic Other gastrointestinal disorders (20 sources) Constipation; Translations: [Constipation, unspecified] Onset: 08-01-2022 08-01-2022 Episodic Other nervous system disorders (20 sources) Unsteady when standing; Translations: [Unsteadiness on feet] Onset: 08-08-2022 08-08-2022 Episodic Other nervous system disorders (20 sources) White matter disease; Translations: [White matter disease, unspecified] Onset: 08-22-2022 08-22-2022 Episodic Other nutritional; endocrine; and metabolic disorders (20 sources) Overweight in adulthood with body mass index of 25 or more but less than 30; Translations: [Overweight] Onset: 11-20-2022 11-20-2022 Episodic Other upper respiratory infections (13 sources) Acute maxillary sinusitis; Translations: [Acute maxillary sinusitis, unspecified] Onset: 03-21-2024 03-21-2024 Episodic Otitis media and related conditions (20 sources) Dysfunction of bilateral eustachian tubes; Translations: [...] BOTH CERVIX AND UTERUS] Onset: 10-21-2021 Episodic Screening and history of mental health and substance abuse codes (20 sources) Ex-smoker; Translations: [Personal history of tobacco use] Onset: 02-24-2022 02-24-2022 Episodic Spondylosis; intervertebral disc disorders; other back problems (20 sources) Neck pain; Translations: [Cervicalgia] Onset: 03-03-2020 08-08-2022 Episodic Unclassified (4 sources) Onset: 11-21-2022 Resolved: 07-18-2024 11-21-2022 Varicose veins of lower extremity (20 sources) Varicose vein of leg with phlebitis; Translations: [Varicose veins of unspecified lower extremity with inflammation] Onset: 11-03-2020 08-22-2022 Episodic Results Test Name Value Interpretation Reference Range Facility ALL BASIC METABOLIC PANELon 07-18-2024 Anion gap [Moles/Vol] 10.5 mmol/L [facility] Calcium [Mass/Vol] 9.6 mg/dL 8.5 - 10. 1 mg/dL [facility] Chloride [Moles/Vol] 103 mmol/L 98 - 10 7 mmol/L [facility] CO2 [Moles/Vol] 30.4 mmol/L 21.0 - 32.0 mmol/L [facility] Creatinine [Mass/Vol] 1.26 mg/dL High 0.55 - 1.02 mg/dL [facility] GFR/1.73 sq M.predicted CKD-EPI (S/P/Bld) [Vol rate/Area] 50 Low >=60 mL/min/1.73m [address] [facility] Glucose [Mass/Vol] 96 mg/dL 74 - 106 mg/dL [facility] Interpretation and review of laboratory results Abnormal [facility] Potassium [Moles/Vol] 3.9 mmol/L 3.5 - 5.1 mmol/L [facility] Sodium [Moles/Vol] 140 mmol/L 136 - 145 mmol/L [facility] TBH EGFR-NON AF SERBIAN 42 Low >=60 mL/min/1.73m [address] [facility] Urea nitrogen [Mass/Vol] 26 mg/dL High 7.0 - 18.0 mg/dL [facility] Urea nitrogen/Creatinine [Mass ratio] 20.6 mg/mg [facility] DIANELYS WOMACK ([id number]) 1950 F Date Time Provider Department 05/29/24 CHRIS TORRES [facility] During your visit today, we recorded the following information about you: German Ordoñez RN 05/29/2024 12:22 PM Signed RN called patient and advised that her Nuclear stress test done yesterday was read as normal: no ischemia, low risk scan , good EF. RN will update Dr. Torres's office as well. NO cardiac concerns voiced during our conversation. Appreciative of call. DELMAR Freire Joseph 05/30/2024 11:58 AM Signed FYI Allergies As of Date: 05/29/2024 Noted Allergy Reaction CIPROFLOXACIN 10/05/2020 16 - Unknown Flagyl (METRONIDAZOLE) 08/04/2016 16 - Unknown LEVOFLOXACIN 03/10/2015 16 - Unknown PENICILLINS 03/10/2015 16 - Unknown 14 - Other: See Comments SEASONAL ALLERGIES 10/05/2020 16 - Unknown SOY 05/16/2015 16 - Unknown VANCOMYCIN 11/17/2021 16 - Unknown Date Reviewed: 05/09/2024 Reviewed by: Rosa Elena Cannon - Fully Assessed Reason for Visit: Patient Update [1234] Prescriptions as of 05/30/2024 - spironolactone (ALDACTONE) 25 mg tablet Take 1 tablet by mouth once daily. - furosemide (LASIX) 20 mg tablet Take 20 mg by mouth once daily. - amLODIPine (NORVASC) 5 mg tablet Take 1 tablet by mouth once daily. - neomycin 500 mg tablet Take 2 [...] as needed. 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] 02/24/2022 Anxiety and depression [F41.9, F32.A] 02/24/2022 Difficult intubation [T88.4XXA] 02/24/2022 History of difficult intubation [Z91.89] 02/24/2022 Encounter Status:Closed by GERMAN ORDOÑEZ on 05/29/24 [facility] CNOVon 05-28-2024 CNOV Office Visit ([facility]) DIANELYS WOMACK ([id number]) 1950 F Date Time Provider Department 05/28/24 12:00 PM NUCLEAR STUDY CARD [facility] During your visit today, we recorded the following information about you: German Ordoñez RN 05/28/2024 3:19 PM Signed RADIOLOGY SERVICE PROGRESS NOTE SERVICE DATE: 05/28/2024 SERVICE TIME: 3:18 PM PATIENT IDENTITY VERIFICATION COMPLETED USING TWO (2) STANDARD IDENTIFIERS: Name and Date of confirmed by patient verbally PATIENT GENDER DATA: female : No ALLERGIES: Reviewed and unchanged MEDICATIONS REVIEWED BY: German Ordoñez RN PROCEDURE TYPE: NM STRESS: 0.4 mg of Lexiscan was administered IV at 1400 by German Ordoñez RN . Reversal agent used: Aminophylline. Expiration date: Lot#: [id number] IV SITE: Ambulatory: A peripheral IV was started in the Right antecubital site with a Angio cath: 24 gauge. POST EXAM PIV STATUS: Discontinued PATIENT DISCHARGED TO: Ambulatory patient, left [place] department area. A Diagnostic radioactive procedure has taken place, with no further precautions necessary other than routine body substance precautions. More information regarding radiation safety can be found using this link: [email or web address]-- %20Diagnostic%20Nucl ear%20Medicine%20Pro cedures.pdf SIGNATURE: German Ordoñez RN PATIENT NAME: Dianelys Womack DATE: May 28, 2024 TIME: 3:18 PM PAGER/CONTACT #: Holly Mg, RT(R) 05/28/2024 3:49 PM Signed RADIOLOGY SERVICE PROGRESS NOTE SERVICE DATE: 05/28/2024 SERVICE TIME: 3:47 PM PATIENT IDENTITY VERIFICATION COMPLETED USING TWO (2) STANDARD IDENTIFIERS: Name and Date of confirmed by patient verbally FALL SCREENING: Has the patient had 2 falls in the last year or 1 fall with injury or currently using an Ambulatory Assistive Device (Walker, Cane, Wheelchair, Crutches, etc.)? Yes, Patient High Risk for Falls What interventions were put in place to prevent falls during this visit? Offered Assistance with Transfers/Clothing and Increased Observations by Caregivers PATIENT GENDER DATA: .female : No ALLERGIES: Reviewed and unchanged MEDICATIONS REVIEWED: Yes PATIENT RELEVANT IMPLANT DATA REVIEWED: Not Applicable PATIENT PRESENTS WITH AN IMPLANTABLE OR ATTACHED STRATEGIES ANALYST: No CREATININE: Creatinine Date Value Ref Range Status 02/24/2022 0.82 0.58 - 0.96 mg/dL Final 10/29/2021 1.17 (H) 0.58 - 0.96 mg/dL Final Estimated Glomerular Filtration Rate Date Value Ref Range Status 02/24/2022 76 >=60 mL/min/1.73m? Final Comment: Estimated Glomerular Filtration Rate (eGFR) is calculated using the 2020 CKD-EPI creatinine equation. This equation utilizes serum creatinine, sex, and age as parameters. The creatinine assay has traceable calibration to isotope dilution-mass spectrometry. Refer to KDIGO guidelines for clinical interpretation. In patients with unstable renal function, e.g. those with acute kidney injury, the eGFR may not accurately reflect actual GFR. P.O.C.T. RESULTS: N/A May 28, [address] PERFORMED: No IV SITE: Ambulatory: A peripheral IV was started in the Right antecubital site with a Angio cath: 24 gauge. POST EXAM PIV STATUS: Not applicable PROCEDURE TYPE: NM Stress: 12.8 mCi [id number] was administered IV for Rest Imaging at 1222 by Holly Mg RT-N. 30.6 mCi [id number]-Kfolugn was administered IV for Stress Imaging at 1400 by Holly Mg RT-N. ADMINISTRATION TIME: PATIENT DISCHARGED TO: Ambulatory patient, left [place] department area. Is this a therapy: No A Diagnostic radioactive procedure has taken place, with no further precautions necessary other than routine body substance precautions. More information regarding radiation safety can be found using this link: [email or web address]-- %20Diagnostic%20Nucl ear%20Medicine%20Pro cedures.pdf SIGNATURE: Holly Mg RT(R) PATIENT NAME: Dianelys Womack DATE: May 28, 2024 TIME: 3:47 PM PAGER/CONTACT #: Referring Provider: CHRIS TORRES [[id number]] Allergies As of Date: 05/28/2024 Noted Allergy Reaction CIPROFLOXACIN 10/05/2020 16 - Unknown Flagyl (METRONIDAZOLE) 08/04/2016 16 - Unknown LEVOFLOXACIN 03/10/2015 16 - Unknown PENICILLINS 03/10/2015 16 - Unknown 14 - Other: See Comments SEASONAL ALLERGIES 10/05/2020 16 - Unknown SOY 05/16/2015 16 - Unknown VANCOMYCIN 11/17/2021 16 - Unknown Date Reviewed: 05/09/2024 Reviewed by: Rosa Elena Cannon - Fully Assessed Visit Diagnoses:Encounter for screening for cardiovascular disorders [Z13.6] Encounter for preprocedural cardiovascular examination [Z01.810] Order(s):NM CARDIAC PERF STRESS/PHARM [[id number]] Order #: [id number]. #:[id number] [] regadenoson 0.4 mg (more content not included)... Normal [facility] ECHOon 05-28-2024 Echocardiography Echocardiography Report: Transthoracic Echo [facility] Office Date of service: 05/28/2024 12:53:37 PM [employer] SUPER[employer]OR Ordering physician: CHRIS TORRES Indication: Re-evaluation of known ascending aortic dilatation to establish baseline Technologist: Anna Sanz [facility] Interpreting physician: Kenia Christianson MD PATIENT: Name: DIANELYS WOMACK : 1950 Age: 73 years Gender: F [...] cavity is normal in size. MITRAL VALVE [place] mitral valve. There is mild mitral annular calcification observed posterior. There is trace mitral valve regurgitation. There is mild thickening. There is mild calcification. The peak mitral E/A ratio is 0.55. The average mitral E/e' ratio is 6.4. TRICUSPID VALVE [place] tricuspid valve. There is trace tricuspid valve [...] is normal. PERICARDIUM The pericardium is normal. CONCLUSIONS: - Exam indication: Re-evaluation of known [...] * * * Final * * * [facility] : [id number]. [id number] Normal [facility] CARDIAC PERF STRESS/PHARM on 05-28-2024 * * *Final Report* * * DATE OF EXAM: May 28 2024 3:41PM [facility] 0006 - [place] CARDIAC PERF STRESS/PHARM / PROCEDURE REASON: multiple diagnoses * * * * Physician Interpretation * * * * PATIENT: Name: DIANELYS WOMACK Age: 73 years Gender: F CONCLUSIONS: 1. [...] later. See administered radiotracer and doses below. [facility] Office Date of service: 05/28/2024 1:25:55 PM Ordering Physician: CHRIS TORRES. Requesting Physician: Indication: Assessment for suspected CAD and h/o CVA, carotid stenosis Interpreting physician: Merrill Martinez MD Height: 157.48 cm BSA: 1.88 m? [...] Final * * * Stress ECG Report: [facility] Office Date of service: 05/28/2024 1:25:55 PM Ordering physician: CHRIS TORRES Interpreting physician: Tu Fuller MD Patient name: DIANELYS WOMACK Age: 73 years Gender: F Height: 157.48 [...] 138/74 mmHg. The double product achieved was [id number]. Medications: Last Used AMLODIPINE LASIX POTASSIUM SPIRONOLACTONE SYNTHROID Resting ECG: Normal Sinus Rhythm Symptoms at rest: No symptoms Pharamcologic Protocol: Regadenoson Stress Exercise Table: +------+ +- -+---+---+ Stage Time (min) HR SYS VALERIA +------+ +- -+---+---+ 1 1.0 81 132 74 +------+ +- -+---+---+ 2 2.0 96 +------+ +- -+---+---+ 3 3.0 95 136 72 +-- (more content not included)... [facility], Radiologist, - 05/28/2024 * * *Final Report* * * DATE OF EXAM: May 28 2024 3:41PM N 0006 - [place] CARDIAC PERF STRESS/PHARM / PROCEDURE REASON: multiple diagnoses * * * * Physician Interpretation * * * * PATIENT: Name: DIANELYS WOMACK Age: 73 years Gender: F CONCLUSIONS: 1. [...] later. See administered radiotracer and doses below. [facility] Date of service: 05/28/2024 1:25:55 PM Ordering Physician: CHRIS TORRES. Requesting Physician: Indication: Assessment for suspected CAD and h/o CVA, carotid stenosis Interpreting physician: Merrill Martinez MD Height: 157.48 cm BSA: 1.88 m? [...] Final * * * Stress ECG Report: [facility] Date of service: 05/28/2024 1:25:55 PM Ordering physician: CHRIS TORRES Interpreting physician: Tu Fuller MD Patient name: DIANELYS WOMACK Age: 73 years Gender: F Height: 157.48 [...] 138/74 mmHg. The double product achieved was [id number]. Medications: Last Used AMLODIPINE LASIX POTASSIUM SPIRONOLACTONE SYNTHROID Resting ECG: Normal Sinus Rhythm Symptoms at rest: No symptoms Pharamcologic Protocol: Regadenoson Stress Exercise Table: +------+ +- -+---+---+ Stage Time (min) HR SYS VALERIA +------+ +- -+---+---+ 1 1.0 81 132 74 +------+ +- -+---+---+ 2 2.0 96 +------+ +- -+---+---+ 3 3.0 95 136 72 +------+ +- -+---+---+ 4 4.0 95 +------+ +- -+---+---+ +-----+---+---+---+ HR SYS VALERIA +-----+---+---+---+ Final 112 138 74 +-----+---+---+---+ Recovery Table: +------+ +- --+---+---+ Stage Time (min) HR SYS VALERIA +------+ +- --+---+-- (more content not included)... [facility] CARDIAC PERF STRESS/PHARM * * *Final Report* * * DATE OF EXAM: May 28 2024 3:41PM [facility] 0006 - [place] CARDIAC PERF STRESS/PHARM / PROCEDURE REASON: multiple diagnoses * * * * Physician Interpretation * * * * PATIENT: Name: DIANELYS WOMACK Age: 73 years Gender: F CONCLUSIONS: 1. [...] later. See administered radiotracer and doses below. [facility] Date of service: 05/28/2024 1:25:55 PM Ordering Physician: CHRIS TORRES. Requesting Physician: Indication: Assessment for suspected CAD and h/o CVA, carotid stenosis Interpreting physician: Merrill Martinez MD Height: 157.48 cm BSA: 1.88 m? [...] Final * * * Stress ECG Report: [facility] Date of service: 05/28/2024 1:25:55 PM Ordering physician: CHRIS TORRES Interpreting physician: Tu Fuller MD Patient name: DIANELYS WOMACK Age: 73 years Gender: F Height: 157.48 [...] 138/74 mmHg. The double product achieved was [id number]. Medications: Last Used AMLODIPINE LASIX POTASSIUM SPIRONOLACTONE SYNTHROID Resting ECG: Normal Sinus Rhythm Symptoms at rest: No symptoms Pharamcologic Protocol: Regadenoson Stress Exercise Table: +------+ +- -+---+---+ Stage Time (min) HR SYS VALERIA +------+ +- -+---+---+ 1 1.0 81 132 74 +------+ +- -+---+---+ 2 2.0 96 +------+ +- -+---+---+ 3 3.0 95 136 72 +------+ +- -+---+---+ 4 4.0 95 +------+ +- -+---+---+ +-----+---+---+---+ HR SYS VALERIA +-----+---+---+---+ Final 112 138 74 +-----+---+---+---+ Recovery Table: +------+ +- --+---+---+ Stage Time (min) HR SYS VALERIA +------+ +- --+---+---+ 1 1.0 102 136 74 +------+ +- --+---+---+ 2 2.0 85 128 76 +------+ +- --+---+---+ 3 3.0 106 130 74 +------+------- (more content not included)... Normal [facility] Heart Perfusion W stress and W radionuclide Kary 05-28-2024 * * *Final Report* * * DATE OF EXAM: May 28 2024 3:41PM [facility] 0006 - [place] CARDIAC PERF STRESS/PHARM / PROCEDURE REASON: multiple diagnoses * * * * Physician Interpretation * * * * PATIENT: Name: DIANELYS WOMACK Age: 73 years Gender: F CONCLUSIONS: 1. [...] later. See administered radiotracer and doses below. [facility] Date of service: 05/28/2024 1:25:55 PM Ordering Physician: CHRIS TORRES. Requesting Physician: Indication: Assessment for suspected CAD and h/o CVA, carotid stenosis Interpreting physician: Merrill Martinez MD Height: 157.48 cm BSA: 1.88 m [...] Final * * * Stress ECG Report: [facility] Date of service: 05/28/2024 1:25:55 PM Ordering physician: CHRIS TORRES Interpreting physician: Tu Fuller MD Patient name: DIANELYS WOMACK Age: 73 years Gender: F Height: 157.48 [...] 138/74 mmHg. The double product achieved was [id number]. Medications: Last Used AMLODIPINE LASIX POTASSIUM SPIRONOLACTONE SYNTHROID Resting ECG: Normal Sinus Rhythm Symptoms at rest: No symptoms Pharamcologic Protocol: Regadenoson Stress Exercise Table: +------+ +- -+---+---+ Stage Time (min) HR SYS VALERIA +------+ +- -+---+---+ 1 1.0 81 132 74 +------+ +- -+---+---+ 2 2.0 96 +------+ +- -+---+---+ 3 3.0 95 136 72 +-- (more content not included)... DIVISION OF RADIOLOGY Provider, [facility] [place] - 05/28/2024 * * *Final Report* * * DATE OF EXAM: May 28 2024 3:41PM N 0006 - [place] CARDIAC PERF STRESS/PHARM / PROCEDURE REASON: multiple diagnoses * * * * Physician Interpretation * * * * PATIENT: Name: DIANELYS WOMACK Age: 73 years Gender: F CONCLUSIONS: 1. [...] later. See administered radiotracer and doses below. [facility] Date of service: 05/28/2024 1:25:55 PM Ordering Physician: CHRIS TORRES. Requesting Physician: Indication: Assessment for suspected CAD and h/o CVA, carotid stenosis Interpreting physician: Merrill Martinez MD Height: 157.48 cm BSA: 1.88 m [...] Final * * * Stress ECG Report: [facility] Date of service: 05/28/2024 1:25:55 PM Ordering physician: CHRIS TORRES Interpreting physician: Tu Fuller MD Patient name: DIANELYS WOMACK Age: 73 years Gender: F Height: 157.48 [...] 138/74 mmHg. The double product achieved was [id number]. Medications: Last Used AMLODIPINE LASIX POTASSIUM SPIRONOLACTONE SYNTHROID Resting ECG: Normal Sinus Rhythm Symptoms at rest: No symptoms Pharamcologic Protocol: Regadenoson Stress Exercise Table: +------+ +- -+---+---+ Stage Time (min) HR SYS VALERIA +------+ +- -+---+---+ 1 1.0 81 132 74 +------+ +- -+---+---+ 2 2.0 96 +------+ +- -+---+---+ 3 3.0 95 136 72 +------+ +- -+---+---+ 4 4.0 95 +------+ +- -+---+---+ +-----+---+---+---+ HR SYS VALERIA +-----+---+---+---+ Final 112 138 74 +-----+---+---+---+ Recovery Table: +------+ +- --+---+---+ Stage Time (min) HR SYS VALERIA +------+ +- --+- (more content not included)... [facility] No Panel InformationOrdered By: Radiologist Radiology on 05-28-2024 [facility] [email or web address] Work Phone: No Panel Informationon 05-28 Radiology Study observation (narrative) [facility] 05-27-2024 [facility] Telephone ([facility]) DIANELYS WOMACK ([id number]) 1950 F Date Time Provider Department 05/27/24 CHRIS TORRES [facility] During your visit today, we recorded the following information about you: Ordoñez, German, RN 05/27/2024 1:12 PM Signed RN called patient to discuss restrictions for tomorrow's Nuclear stress test. Instructed on NO caffeine for 24 hours prior. This includes no yoyxyi-dhhd-jwjtc-ch ocolate and decaf products. OK to eat breakfast and take am medications. Patient will also have an echo tomorrow as well for pre-op clearance. Verbalized an understanding, appreciative of call. Support provided. German Ordoñez RN Allergies As of Date: 05/27/2024 Noted Allergy Reaction CIPROFLOXACIN 10/05/2020 16 - Unknown Flagyl (METRONIDAZOLE) 08/04/2016 16 - Unknown LEVOFLOXACIN 03/10/2015 16 - Unknown PENICILLINS 03/10/2015 16 - Unknown 14 - Other: See Comments SEASONAL ALLERGIES 10/05/2020 16 - Unknown SOY 05/16/2015 16 - Unknown VANCOMYCIN 11/17/2021 16 - Unknown Date Reviewed: 05/09/2024 Reviewed by: Rosa Elena Cannon - Fully Assessed Reason for Visit: Appointment [[id number]] Cmt: Pre-Nuclear stress test call Prescriptions as of 05/27/2024 - spironolactone (ALDACTONE) 25 mg tablet Take 1 tablet by mouth once daily. - furosemide (LASIX) 20 mg tablet Take 20 mg by mouth once daily. - amLODIPine (NORVASC) 5 mg tablet Take 1 tablet by mouth once daily. - neomycin 500 mg tablet Take 2 [...] as needed. 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] 02/24/2022 Anxiety and depression [F41.9, F32.A] 02/24/2022 Difficult intubation [T88.4XXA] 02/24/2022 History of difficult intubation [Z91.89] 02/24/2022 Encounter Status:Closed by GERMAN ORDOÑEZ on 05/27/24 [facility] CNOVon 05-09-2024 CNOV Office Visit ([facility]) DIANELYS WOMACK ([id number]) 1950 F Date Time Provider Department 05/09/24 2:15 PM CHRIS TORRES [facility] During your visit today, we recorded the following information about you: Pulse Blood pressure 83/minute 149/99 Chris Torres MD 05/09/2024 6:00 PM Signed VASCULAR SURGERY INITIAL CONSULT [facility] [place] DEPARTMENT OF VASCULAR SURGERY OUTPATIENT VISIT DATE 05/09/2024 OUTPATIENT VISIT TYPE CONSULTATION SERVICE DATE: 05/09/2024 PRIMARY CARE PHYSICIAN: Monika Lehman MD, MD REFERRING PROVIDER: Erinn Lawson [id number] [address] Consult requested for an opinion regarding the evaluation and treatment of the above. My final impression and recommendations will be communicated back to the requesting physician by way of the shared medical record or letter via [place] mail. NAME: Dianelys Womack : 1950 CHIEF COMPLAINT: AAA HISTORY OF PRESENT ILLNESS: Consultation at the request of Dr. Erinn Lawson for an opinion regarding . A copy of my final recommendations will be communicated back to the requesting physician by way of shared Medical record or letter via [place] mail. Ms. 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 I personally obtained the history of present illness. Chris Torres MD STUDIES: CTA A/P 04/10/2024 at [facility] There is atherosclerotic plaque along the aorta, iliac and some of the visceral arteries. There is redemonstration of an infrarenal aortic aneurysm The maximum diameter is approximately 4.6 cm on the reconstructed images. There is mural thrombus. 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 This is also a few millimeters larger than the comparison. There is no periaortic fluid. The visceral arteries show normal opacification. PAST MEDICAL HISTORY Diagnosis Date Anxiety and depression 02/24/2022 Arrhythmia heart arrhythima Arthritis CKD (chronic kidney disease) stage 3, GFR 30-59 ml/min (HCC) Difficult airway for intubation Difficult intubation 02/24/2022 Fatty liver Former smoker 02/24/2022 Hard to intubate History of difficult intubation 02/24/2022 Hypertension Neuropathy Stroke (HCC) 2004 Thoracoabdominal aneurysm (HCC) Thyroid disease PAST SURGICAL HISTORY Procedure Laterality Date ABDOMINAL SURGERY HX REMOVAL GALLBLADDER VAGINAL HYSTERECTOMY SOCIAL HISTORY: Social History Tobacco Use Smoking status: Former Current packs/day: 0.00 Types: Cigarettes Quit date: 2011 Years since quittin.2 Smokeless tobacco: Never Vaping Use Vaping status: Never Used Substance Use Topics Alcohol use: Never Drug use: Never FAMILY HISTORY Problem Relation Age of Onset other (brain issues? deteriation of cerabellum) Mother MEDICATIONS: neomycin 500 mg tablet Take 2 tablets by mouth at 9pm and take 2 tablets by mouth at 11pm the night before surgery. OMEPRAZOLE ORAL Take 40 mg by mouth [...] needed. (Patient not taking: No sig reported) ALLERGIES: ALLERGIES Allergen Reactions Ciprofloxacin Unknown Flagyl [Metronidazo* Unknown Levofloxacin Unknown Penicillins Unknown, Other: See Comments Seasonal Allergies Unknown Soy Unknown Vancomycin Unknown REVIEW OF SYSTEM: Constitutional: No weight loss, malaise or fevers. HEENT: Negative for frequent or significant headaches Respiratory: Negative for cough, wheezing, or shortness of breath Cardiovascular: 1994 Gatrointestinal: Negative for abdominal discomfort, blood in stools or black stools or change in bowel habits Genitourinary: No history of dysuria, frequency, or incontinence Musculoskeletal: Negative for joint pain or swelling, back pain or muscle pain Endocrine: Negative for cold or heat intolerance, polyuria, polydipsia and goiter Hematology/Lymphatic : Negative for prolonged bleeding, bruising easily or swollen nodes Neurologic: No history or headaches, syncope, paralysis, seizures or tremors Integumentary: Negative for lesions, rash, and itching. PHYSICAL EXAM: VITALS: There were no vitals taken for this visit. General: Alert and oriented Int (more content not included)... [facility] DIANELYS WOMACK ([id number]) 1950 F Date Time Provider Department 05/08/24 ERINN LAWSON During your visit today, we recorded the following information about you: Erinn Lawson MD 05/08/2024 12:52 PM Signed please call daughter to set up vas surg appointment charles, orders entered Erinn Lawson MD Allergies As of Date: 05/08/2024 Noted Allergy Reaction CIPROFLOXACIN 10/05/2020 16 - Unknown Flagyl (METRONIDAZOLE) 08/04/2016 16 - Unknown LEVOFLOXACIN 03/10/2015 16 - Unknown PENICILLINS 03/10/2015 16 - Unknown 14 - Other: See Comments SEASONAL ALLERGIES 10/05/2020 16 - Unknown SOY 05/16/2015 16 - Unknown VANCOMYCIN 11/17/2021 16 - Unknown Date Reviewed: 10/25/2022 Reviewed by: Stephanie Benavides RN - Fully Assessed Primary Visit Diagnosis: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] 02/24/2022 Anxiety and depression [F41.9, F32.A] 02/24/2022 Difficult intubation [T88.4XXA] 02/24/2022 History of difficult intubation [Z91.89] 02/24/2022 Encounter Status:Closed by ERINN LAWSON on 05/08/[address] [facility] [address] ANGIO ABDOMEN PELVISon [address] [address] [address] Scan Report Signed Patient: DIANELYS WOMACK MR#: [id number] : 1950 Acct:[id number] Age/Sex: 73 / F ADM Date: 04/10/24 Loc: LAB Attending Dr: MONIKA LEHMAN Ordering Physician: MONIKA LEHMAN Date of Service: 04/10/24 Procedure(s): CT angio abdomen pelvis Accession Number(s): [id number] cc: MONIKA LEHMAN [address] [address] Patient Name: DIANELYS WOMACK MRN: [id number] date: 1950 Sex: F Assigned Patient Location: LAB Current Patient Location: LAB Accession/Order Number: [id number] Exam Date: 04/10/2024 11:58 Report Date: 04/10/2024 12:18 At the request of: MONIKA LEHMAN Procedure: CT angio abdomen pelvis CTA OF THE ABDOMEN AND PELVIS WITH CONTRAST COMPARISON: 03/15/2023 CLINICAL DATA: Follow-up abdominal aortic and right common iliac aneurysms Spiral images were obtained through the abdomen and pelvis following 100 mL of Omnipaque 350. Sagittal and coronal MIP as well as 3-D volume rendered reconstructions of the abdominal aorta and its branches were reviewed. This CT exam was performed using one or more following dose reduction techniques: Automated exposure control, adjustment of the mA and/or kV according to patient size, or use of iterative reconstruction technique. Limited cuts through the lung bases show no contributory pulmonary findings. There is a tiny hiatal hernia.. There is atherosclerotic plaque along the aorta, iliac and some of the visceral arteries. There is redemonstration of an infrarenal aortic aneurysm extending over a length of approximately 8 cm down to the bifurcation. The maximum diameter is approximately 4.6 cm on the reconstructed images. This is approximately 5 mm larger than the comparison at a comparable level. There is mural thrombus. 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 This is also a few millimeters larger than the comparison. There is no periaortic fluid. The visceral arteries show normal opacification. The gallbladder is surgically absent. No common duct stones are noted. A cyst is again seen within the liver in the periportal region. The spleen, pancreas and adrenal glands show no acute findings. There are symmetric renal nephrograms, without hydronephrosis. A tiny umbilical hernia is visualized containing fat. There are few tiny lymph nodes. No ascites is seen. The small bowel loops are not dilated. Stool is present throughout the colon. Dextroscoliotic curvature and degenerative changes are seen at the spine, greatest at the lower facets. Lumbar hemangiomas are also noted. Images through the pelvis show normal caliber small bowel loops. The distal colon is underdistended. There are a few potential sigmoid diverticula. No active inflammation is seen. The uterus is surgically absent. No urinary bladder abnormalities are identified. No ascites is seen. 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 NO BOWEL OR URINARY TRACT OBSTRUCTION. NO ACUTE FINDINGS. Impression dictated by: Erica Tony M.D.04/10/2024 12:18 PM Dictation Location: [place] [address] Electronically authenticated by: [id number] Y Date: 04/10/2024 12:18 Dictated By: Erica Tony M.D. Signed By: 04/10/24 1221 DD/ 1218 TD/TT: Cloth Stock Sorter: [facility] Radiology, Radiologist, MD - 04/10/[address] [address] [address] Scan Report Signed Patient: DIANELYS WOMACK MR#: [id number] : 1950 Acct:[id number] Age/Sex: 73 / F ADM Date: 04/10/24 Loc: LAB Attending Dr: MONIKA LEHMAN Ordering Physician: MONIKA LEHMAN Date of Service: 04/10/24 Procedure(s): CT angio abdomen pelvis Accession Number(s): [id number] cc: MONIKA LEHMAN [address] [address] Patient Name: DIANELYS WOMACK MRN: [facility]:[id number] date: 1950 Sex: F Assigned Patient Location: LAB Current Patient Location: LAB Accession/Order Number: [id number] Exam Date: 04/10/2024 11:58 Report Date: 04/10/2024 12:18 At the request of: MONIKA LEHMAN Procedure: CT angio abdomen pelvis CTA OF THE ABDOMEN AND PELVIS WITH CONTRAST COMPARISON: 03/15/2023 CLINICAL DATA: Follow-up abdominal aortic and right common iliac aneurysms Spiral images were obtained through the abdomen and pelvis following 100 mL of Omnipaque 350. Sagittal and coronal MIP as well as 3-D volume rendered reconstructions of the abdominal aorta and its branches were reviewed. This CT exam was performed using one or more following dose reduction techniques: Automated exposure control, adjustment of the mA and/or kV according to patient size, or use of iterative reconstruction technique. Limited cuts through the lung bases show no contributory pulmonary findings. There is a tiny hiatal hernia.. There is atherosclerotic plaque along the aorta, iliac and some of the visceral arteries. There is redemonstration of an infrarenal aortic aneurysm extending over a length of approximately 8 cm down to the bifurcation. The maximum diameter is approximately 4.6 cm on the reconstructed images. This is approximately 5 mm larger than the comparison at a comparable level. There is mural thrombus. 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 This is also a few millimeters larger than the comparison. There is no periaortic fluid. The visceral arteries show normal opacification. The gallbladder is surgically absent. No common duct stones are noted. A cyst is again seen within the liver in the periportal region. The spleen, pancreas and adrenal glands show no acute findings. There are symmetric renal nephrograms, without hydronephrosis. A tiny umbilical hernia is visualized containing fat. There are few tiny lymph nodes. No ascites is seen. The small bowel loops are not dilated. Stool is present throughout the colon. Dextroscoliotic curvature and degenerative changes are seen at the spine, greatest at the lower facets. Lumbar hemangiomas are also noted. Images through the pelvis show normal caliber small bowel loops. The distal colon is underdistended. There are a few potential sigmoid diverticula. No active inflammation is seen. The uterus is surgically absent. No urinary bladder abnormalities are identified. No ascites is seen. 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 NO BOWEL OR URINARY TRACT OBSTRUCTION. NO ACUTE FINDINGS. Impression dictated by: Erica Tony M.D.04/10/2024 12:18 PM Dictation Location: [place] [address] Electronically authenticated by: [id number] Y Date: 04/10/2024 12:18 Dictated By: Erica Tony M.D. Signed By: 04/10/24 1221 DD/ 1218 TD/TT: Cloth Stock Sorter: [facility] Radiology Study observation (narrative) [facility] CT ANGIO ABDOMEN PELVISOrder ed By: Radiologist Radiology on 04-10-[address] [facility] Work Phone: [facility] CREATININEon 04-10-2024 Creatinine [Mass/Vol] 1.44 mg/dL High 0.55 - 1.02 mg/dL [facility] GFR/1.73 sq M.predicted CKD-EPI (S/P/Bld) [Vol rate/Area] 43 Low >=60 mL/min/1.73m [address] [facility] Interpretation and review of laboratory results Abnormal [facility] TB EGFR-NON AF SERBIAN 36 Low >=60 mL/min/1.73m 2 Counts include 234 beds at the [facility] C. DIFFICILE PCRon C. DIFFICILE PCR Negative Counts include 234 beds at the [facility] COMPREHENSIVE METABOLIC PANE Louie 03-12-2024 Albumin [Mass/Vol] 4.0 g/dL Normal 3.6-5.1 [facility] Comment on above: Performed By: #### 1 0231 #### [facility] of [place] [address] [employer]ane [employer] Operator: Doug Trejo MD Albumin/Globulin [Mass ratio] 1.4 {ratio} Normal 1.0-2.5 [facility] Comment on above: Performed By: #### 1 0231 #### [facility] [place] [address] [employer] Operator: Doug Trejo MD ALP [Catalytic activity/Vol] 127 U/L Normal 37-153 [facility] Comment on above: Performed By: #### 1 0231 #### [facility] [place] [address] [employer] Operator: Doug Trejo MD ALT [Catalytic activity/Vol] 13 U/L Normal 6-29 [facility] Comment on above: Performed By: #### 1 0231 #### [facility] [place] [address] [employer] Operator: Doug Trejo MD AST [Catalytic activity/Vol] 23 U/L Normal 10-35 [facility] Comment on above: Performed By: #### 1 0231 #### [facility] [place] [address] [employer] Operator: Doug Trejo MD Bilirubin [Mass/Vol] 0.5 mg/dL Normal 0.2-1.2 [facility] Comment on above: Performed By: #### 1 0231 #### [facility] of [place] [address] [employer] Operator: Doug Trejo MD Calcium [Mass/Vol] 9.3 mg/dL Normal 8.6-10.4 [facility] Comment on above: Performed By: #### 1 0231 #### [facility] of [address], [address] [place] [address] [employer] Operator: Doug Trejo MD Chloride [Moles/Vol] 103 mmol/L Normal 98-110 [facility] Comment on above: Performed By: #### 1 0231 #### [facility] of [address], [address] [place] [address] [employer] Operator: Doug Trejo MD CO2 [Moles/Vol] 31 mmol/L Normal 20-32 [facility] Comment on above: Performed By: #### 1 0231 #### [facility] of [address], [address] [place] [address] [employer] Operator: Doug Trejo MD Creatinine [Mass/Vol] 1.07 mg/dL High 0.60-1.[address] [facility] Comment on above: Performed By: #### 1 0231 #### [facility] of [address], [address] [place] [address] [employer] Operator: Doug Trejo MD GFR/1.73 sq M.predicted among non-blacks MDRD (S/P/Bld) [Vol rate/Area] 55 mL/min/{1.73_m2} Low > OR = 60 [facility] Comment on above: Performed By: #### 1 0231 #### [facility] of [address], [address] [place] [address] [employer] Operator: Doug Trejo MD Globulin (S) [Mass/Vol] 2.8 g/dL Normal 1.9-3.7 [facility] Comment on above: Performed By: #### 1 0231 #### [facility] of [place] [address] [employer] Operator: Doug Trejo MD Glucose [Mass/Vol] 98 mg/dL Normal 65-99 [facility] Comment on above: Result Comment: Fasting reference interval Performed By: #### 1 0231 #### [facility] of [place] [address] [employer] Operator: Doug Trejo MD Potassium [Moles/Vol] 4.0 mmol/L Normal 3.5-5.[address] [facility] Comment on above: Performed By: #### 1 0231 #### [facility] of [address], [address] [place] [address] [employer] Operator: Doug Trejo MD Protein [Mass/Vol] 6.8 g/dL Normal 6.1-8.1 [facility] Comment on above: Performed By: #### 1 0231 #### [facility] of [address], [address] [place] [address] [employer] Operator: Doug Trejo MD Sodium [Moles/Vol] 141 mmol/L Normal 135-146 [facility] Comment on above: Performed By: #### 1 0231 #### [facility] [place] [address] [employer] Operator: Doug Trejo MD Urea nitrogen [Mass/Vol] 18 mg/dL Normal 7-25 [facility] Comment on above: Performed By: #### 1 0231 #### [facility] [place] [address] [employer] Operator: Doug Trejo MD Urea nitrogen/Creatinine [Mass ratio] 17 mg/mg Normal 6-22 [facility] Comment on above: Performed By: #### 1 0231 #### [facility] [place] [address] [employer] Operator: Doug Trejo MD CBC (H/H, RBC, INDICES, WBC, PLT)on 01-11-2024 Erythrocyte distribution width (RBC) [Ratio] 14.6 % Normal 11.0-15.0 [facility] Comment on above: Performed By: #### 1 259, 899, 496, 39989, 6040 #### [facility] of [place] [address] [employer] Operator: Doug Trejo MD Hematocrit (Bld) [Volume fraction] 40.2 % Normal 35.0-45.0 [facility] Comment on above: Performed By: #### 1 759, 899, 496, 98907, 7600 #### [facility] [place] [address] [employer] Operator: Doug Trejo MD Hemoglobin (Bld) [Mass/Vol] 12.7 g/dL Normal 11.7-15.5 [facility] Comment on above: Performed By: #### 1 759, 899, 496, 48631, 7600 #### [facility] [place] [address] [employer] Operator: Doug Trejo MD MCH (RBC) [Entitic mass] 26.7 pg Low 27.0-33.0 [facility] Comment on above: Performed By: #### 1 759, 899, 496, 16101, 7600 #### [facility] [place] [address] [employer] Operator: Doug Trejo MD MCHC (RBC) [Mass/Vol] 31.6 [...] Performed By: #### 1 759, 899, 496, 48454, 7600 #### [facility] [place] [address] [employer] Operator: Doug Trejo MD MCV (RBC) [Entitic vol] 84.5 fL Normal 80.0-100.0 [facility] Comment on above: Performed By: #### 1 759, 899, 496, 48661, 7600 #### [facility] [place] [address] [employer] Operator: Doug Trejo MD Platelet mean volume (Bld) [Entitic vol] 10.6 fL Normal 7.5-12.5 [facility] Comment on above: Performed By: #### 1 759, 899, 496, 55523, 7600 #### [facility] [address], [address] [place] [address] [employer] Operator: Doug Trejo MD Platelets (d) [#/Vol] 225 10*3/uL Normal 140-400 [facility] Comment on above: Performed By: #### 1 759, 899, 496, 35962, 7600 #### [facility] of [address], [address] [place] [address] [employer] Operator: Doug Trejo MD RBC (d) [#/Vol] 4.76 10*6/uL Normal 3.80-5.10 [facility] Comment on above: Performed By: #### 1 759, 899, 496, 51092, 7600 #### [facility] [address], [address] [place] [address] [employer] Operator: Doug Trejo MD WBC (d) [#/Vol] 6.2 10*3/uL Normal 3.8-10.8 [facility] Comment on above: Performed By: #### 1 759, 899, 496, 95479, 7600 #### [facility] of [address], [address] [place] [address] [employer] Operator: Doug Trejo MD HEMOGLOBIN A1con 01-11-2024 HEMOGLOBIN [...] diagnosis of diabetes in children. According to [place] Diabetes Association (ADA) guidelines, hemoglobin A1c <7.0% represents optimal control in non- diabetic patients. Different metrics may apply to specific patient populations. Standards of Medical Care in Diabetes(ADA). Performed By: #### 1 759, 899, 496, 18311, 7600 #### [facility] [address], [address] [place] [address] [employer] Operator: Doug Trejo MD LIPID PANEL, [place] [address]-2 Cholesterol [Mass/Vol] 196 mg/dL Normal <200 [facility] Comment on above: Order Comment: FASTI NG:YES FASTING: YES Performed By: #### 1 759, 899, 496, 06299, 7600 #### [facility] [address], [address] [place] [address] [employer] Operator: Doug Trejo MD Cholesterol in HDL [Mass/Vol] 64 mg/dL Normal > OR = 50 [facility] Comment on above: Order Comment: FASTI NG:YES FASTING: YES Performed By: #### 1 759, 899, 496, 10658, 7600 #### [facility] [address], [address] [place] [address] [employer] Operator: Doug Trejo MD Cholesterol in LDL [Mass/Vol] [...] LDL-C. Rico TAPIA et al. ALEXUS. 2013;310(19): 1846-2922 (http://education.[employer]/faq/UGC928) Performed By: #### 1 759, 899, 496, 74639, 7600 #### [facility] [address], [address] [place] [address] [employer] Operator: Doug Trejo MD Cholesterol.total/Lindsay sterol in HDL [Mass ratio] 3.1 {ratio} Normal <5.0 [facility] Comment on above: Order Comment: FASTI NG:YES FASTING: YES Performed By: #### 1 759, 899, 496, 45497, 7600 #### [facility] [place] [address] [employer] Operator: Doug Trejo MD NON HDL CHOLESTEROL 132 mg/dL (calc) High <130 [facility] Comment on above: Order Comment: FASTI NG:YES FASTING: YES Result Comment: For patients with diabetes plus 1 major ASCVD risk factor, treating to a non-HDL-C goal of <100 mg/dL (LDL-C of <70 mg/dL) is considered a therapeutic option. Performed By: #### 1 759, 899, 496, 98702, 7600 #### [facility] [place] [address] [employer] Operator: Doug Trejo MD Triglyceride [Mass/Vol] 81 mg/dL Normal <150 [facility] Comment on above: Order Comment: FASTI NG:YES FASTING: YES Performed By: #### 1 759, 899, 496, 67547, 7600 #### [facility] [place] [address] [employer] Operator: Doug Trejo MD TSHon 01-11-2024 TSH Qn 1.97 m[IU]/L Normal 0.40-4.50 [facility] Comment on above: Performed By: #### 1 759, 899, 496, 07169, 7600 #### [facility] [place] [address] [employer] Operator: Doug Trejo MD VITAMIN D,25-OH,TOTAL,IAon 1 03-12-2023 VITAMIN D,25-OH,TOTAL,IA 19 ng/mL Low 30-100 [facility] Comment on above: Result Comment: Ynes min D Status 25-OH Vitamin D: Deficiency: <20 ng/mL Insufficiency: 20 - 29 ng/mL Optimal: > or = 30 ng/mL For 25-OH Vitamin D testing on patients on D2-supplementation and patients for whom quantitation of D2 and D3 fractions is required, the [facility](TM) 25-OH VIT D, (D2,D3), LC/MS/MS is recommended: order code 94215 (patients >2yrs). See Note 1 Note 1 For additional information, please refer to http://education.[employer]/faq/LFI935 (This link is being provided for informational/ educational purposes only.) Performed By: #### 1 759, 899, 496, 95088, 7600 #### [facility] [place] [address] [employer] Operator: Doug Trejo MD BASIC METABOLIC PANELon 07-14 Calcium [Mass/Vol] 9.5 mg/dL Normal 8.6-10.4 [facility] Comment on above: Performed By: #### 1 0165 #### [facility] [place] [address] [employer] Operator: Doug Trejo MD Chloride [Moles/Vol] 104 mmol/L Normal 98-110 [facility] Comment on above: Performed By: #### 1 0165 #### [facility] [place] [address] [employer] Operator: Doug Trejo MD CO2 [Moles/Vol] 30 mmol/L Normal 20-32 [facility] Comment on above: Performed By: #### 1 0165 #### [facility] [place] [address] [employer] Operator: Doug Trejo MD Creatinine [Mass/Vol] 1.38 mg/dL High 0.60-1.[address] [facility] Comment on above: Performed By: #### 1 0165 #### [facility] [place] [address] [employer] Operator: Doug Trejo MD GFR/1.73 sq M.predicted among non-blacks MDRD (S/P/Bld) [Vol rate/Area] 40 mL/min/{1.73_m2} Low > OR = 60 [facility] Comment on above: Performed By: #### 1 0165 #### [facility] [place] [address] [employer] Operator: Doug Trejo MD Glucose [Mass/Vol] 90 mg/dL Normal 65-99 [facility] Comment on above: Result Comment: Fasting reference interval Performed By: #### 1 0165 #### [facility] [place] [address] [employer] Operator: Doug Trejo MD Potassium [Moles/Vol] 3.5 mmol/L Normal 3.5-5.[address] [facility] Comment on above: Performed By: #### 1 0165 #### [facility] [place] [address] [employer] Operator: Doug Trejo MD Sodium [Moles/Vol] 143 mmol/L Normal 135-146 [facility] Comment on above: Performed By: #### 1 0165 #### [facility] [place] [address] [employer] Operator: Doug Trejo MD Urea nitrogen [Mass/Vol] 25 mg/dL Normal 7-25 [facility] Comment on above: Performed By: #### 1 0165 #### [facility] [place] [address] [employer] Operator: Doug Trejo MD Urea nitrogen/Creatinine [Mass ratio] 18 mg/mg Normal 6-22 [facility] Comment on above: Performed By: #### 1 0165 #### [facility] [place] [address] [employer] Operator: Doug Trejo MD COLONOSCOPY DIAGNOSTICon [facility] Established Visit (Nephrolog y)on 09-20-2022 Established Visit (Nephrology) Diagnoses/Problems CKD (chronic kidney disease), stage III (585.3) (N18.30) Essential hypertension (401.9) (I10) Orders CKD (chronic kidney disease), stage III, Essential hypertension Basic Metabolic Panel; Status:Active; Requested for:[id number]; Parathormone Intact, Serum; Status:Active; Requested for:[id number]; Vitamin D 25-Hydroxy; Status:Active; Requested for:[id number]; Essential hypertension Renew: amLODIPine Besylate 10 MG [...] daily Vitals Vital Signs Recorded: 20Sep2022 12:51PM Edxhfezzysm60.2 F Heart Rate90 Hrhldoup680, RUE, Sitting Uznldjabe050, RUE, Sitting Height5 ft 3 in Ebnrbr851 lb BMI Updakwflpj12.23 kg/m2 BSA Calculated1.78 Physical Exam General: The [...] Moves extremities. (more content not included)... Normal [facility] Cardiovasc Arrhythmia Result son 05-12-2022 Cardiovasc Arrhythmia Results Reason For Visit Reason for Visit: Holter Monitor: DIANELYS is here for the application of a 24 hour Holter monitor. Ordering Physician: Seema Jim NP Diagnosis: PVC [facility] equipment agreement signed. DIANELYS understands monitor is to be returned on: 05/13/2022 Monitor number [id number] applied. Holter monitor returned and downloaded. 05/18/2022 [...] marked in the patient diary. Future Appointments Date/TimeProvider[facility] 09/20/2022 12:50 PMDaniel Ma MD[address] Dominguez 3 DO 05/08/2023 01:00 PMElinor Raman, [id number] [address] Alberto 250 DO Signatures Electronically signed by : Dima Minor MD; May 23 2022 4:14PM EST (Author) Electronically signed by : Seema Saldaña, HAND BRAILLE TRANSCRIBER-PRIMER PRESS OPERATOR; May 24 2022 2:39PM EST (Author) Normal [facility] Office Visit (Cardiology)on 05-04-2022 Follow-up visit Diagnoses/Problems [...] f/u Chief Complaint Annual f/u: 'doing fine' DIANELSY WOMACK is being seen for an annual [...] Adverse Reaction; (more content not included)... Normal [facility] Tobacco Screening.on 023 Adult depression screening assessment No [facility] [employer] DO Work Phone: Fall risk assessment b) One or more fall s in the last year [facility] [employer] DO Work Phone: Tobacco use status CPHS b) No [facility] [employer] DO Work Phone: CTA ABD/PELVIS WO W CONon CTA ABD/PELVIS [...] by: NATALIE FRANCO Date: 2022-03-24 08:09 Normal [facility] CREATININEon 03-23-2022 Creatinine [Mass/Vol] 0.97 mg/dL Normal 0.55-1.02 [facility] Comment on above: Performed By: #### C DOYLE ####[facility] [address] [address]Dr. Sheila Mittal EGFR-AF SERBIAN >60 Normal >=60 [facility] Comment on above: Performed By: #### C DOYLE ####[facility] [id number] [id number]. Sheila Mittal EGFR-NON AF SERBIAN 56 mL/min/1.73m2 Critically low >=60 [facility] Comment on above: Performed By: #### C DOYLE ####[facility] [id number] [address]Dr. Sheila Mittal Established Visit (Nephrolog y)on 03-22-2022 Established Visit (Nephrology) Diagnoses/Problems CKD (chronic kidney disease), stage III (585.3) (N18.30) Essential hypertension (401.9) (I10) Orders CKD (chronic kidney disease), stage III, Essential hypertension Basic Metabolic Panel; Status:Active; Requested for:[id number]; Parathormone Intact, Serum; Status:Active; Requested for:[id number]; Phosphorus, Serum; Status:Active; Requested for:[id number]; Vitamin D 25-Hydroxy; Status:Active; Requested for:[id number]; Provider Impressions 1. Hypertension. Blood pressure is [...] CAPSone capsule daily Vitals Vital Signs Recorded: [id number] 03:35PM Wcpqdrahhzt04.1 F Heart Rate60 Ahhukkpl962, LUE, Sitting Zvarfonnw20, LUE, Sitting Height5 ft 3 in Qvohaf571 lb BMI Bpbidurbjg14.81 kg/m2 BSA Calculated1.74 Tobacco Useb) No Falls [...] Exam: Speech is fluent. Moves extremities. Results/Data [facility] Basic Metabolic [id number] 10:05Daniel Chery [facility] [address] [address] (more content not included)... Normal [place] Tobacco Screening.on 023 Fall risk assessment b) One or more fall s in the last year -[facility] 3 DO Work Phone: Tobacco use status CPHS b) No M -[facility] 3 DO Work Phone: COLONOSCOPY (THERAPEUTIC)on 03-03-2022 [facility] COLONOSCOPY DIAGNOSTICon [facility] EGD DIAGNOSTICon 12-06-2021 [facility] Albumin [Mass/volume] in Ser um or PlasmaOrdered By: Chucho Saldaña on 11-17-2021 Albumin [Mass/Vol] 3.6 g/dL 3.2-5.5 [facility] Automated erythrocytes count in urine sediment (number/area)Ordered By: Chucho Saldaña on 11-17-2021 RBC Auto (Urine sed) [#/Area] 0-1 [HPF] 0-4 [facility] Automated leukocytes count i n urine sediment (number/area)Ordered By: Chucho Saldaña on 11-17-2021 WBC Auto (Urine sed) [#/Area] 3-4 [HPF] 0-4 [facility] Basophils Auto (Bld) [#/Vol] Ordered By: Chucho Saldaña on 11-17-2021 Basophils (Bld) [#/Vol] 0.0 10*3/uL 0.0-0.2 [facility] Basophils/100 WBC Auto (Bld) Ordered By: Chucho Saldaña on 11-17-2021 Basophils/100 WBC (Bld) 0.6 % . [facility] Bilirubin Test strip Ql (U)O rdered By: Chucho Saldaña on 11-17-2021 Bilirubin Ql (U) Negative Negative [facility] Blood hemoglobin measurement (mass/volume)Ordered By: Chucho Saldaña on 11-17-2021 Hemoglobin (Bld) [Mass/Vol] 13.4 g/dL 11.8-15.4 [facility] Blood leukocytes automated c ount (number/volume)Ordered By: Chucho Saldaña on 11-17-2021 WBC (Bld) [#/Vol] 6.4 10*3/uL 4.5-11.0 [facility] Color Auto (U)Ordered By: Swathi Saldaña on 11-17-2021 Color (U) Yellow Yellow [facility] Creatinine and Glomerular fi ltration rate.predicted panel (S/P/Bld)Ordered By: Chucho Saldaña on 11-17-2021 Creatinine [Mass/Vol] 0.86 mg/dL 0.44-1.03 [facility] Direct bilirubin measurement Ordered By: Chucho Saldaña on 11-17-2021 Bilirubin.direct [Mass/Vol] 0.1 mg/dL 0.0-0.4 [facility] Eosinophils Auto (Bld) [#/Vo l]Ordered By: Chucho Saldaña on 11-17-2021 Eosinophils (Bld) [#/Vol] 0.0 10*3/uL 0.0-0.45 [facility] Eosinophils/100 WBC Auto (Bl d)Ordered By: Chucho Saldaña on 11-17-2021 Eosinophils/100 WBC (Bld) 0.8 % . [facility] Erythrocyte distribution wid th Auto (RBC) [Ratio]Ordered By: Chucho Saldaña on 11-17-2021 Erythrocyte distribution width (RBC) [Ratio] 15.8 % 11.9-15.3 [facility] Estimated glomerular filtrat ion rate (GFR) non- AmericanOrdered By: Chucho Saldaña on 11-17-2021 GFR/1.73 sq M.predicted among non-blacks MDRD (S/P/Bld) [Vol rate/Area] > 60 mL/Min [facility] Globulin Calc (S) [Mass/Vol] Ordered By: Chucho Saldaña on 11-17-2021 Globulin (S) [Mass/Vol] 3.6 g/dL [facility] Hematocrit Auto (Bld) [Volum e fraction]Ordered By: Chucho Saldaña on 11-17-2021 Hematocrit (Bld) [Volume fraction] 41.7 % 34.0-46.4 [facility] Ketones Auto test strip (U) [Mass/Vol]Ordered By: Chucho Saldaña on 11-17-2021 Ketones (U) [Mass/Vol] Trace Negative [facility] - Chemistry and C hemistry - challengeOrdered By: Chucho Saldaña on 11-17-2021 Lipase [Catalytic activity/Vol] 26.0 U/L 22-51 [facility] Laboratory - Hematology and Cell countsOrdered By: Chucho Saldaña on 11-17-2021 Nucleated RBC/100 WBC (Bld) [Ratio] 0.0 % 0-0.5 [facility] Laboratory - UrinalysisOrder ed By: Chucho Saldaña on 11-17-2021 Hyaline casts LM Ql (Urine sed) 0-8 [LPF] 0-8 [facility] Lymphocytes Auto (Bld) [#/Vo l]Ordered By: Chucho Saldaña on 11-17-2021 Lymphocytes (Bld) [#/Vol] 0.9 10*3/uL 1.00-4.8 [facility] Lymphocytes/100 WBC Auto (Bl d)Ordered By: Chucho Saldaña on 11-17-2021 Lymphocytes/100 WBC (Bld) 14.4 % . [facility] MCH Auto (RBC) [Entitic mass ]Ordered By: Chucho Saldaña on 11-17-2021 MCH (RBC) [Entitic mass] 27.3 pg 24.7-34.3 [facility] MCHC Auto (RBC) [Mass/Vol]Or dered By: Chucho Saldaña on 11-17-2021 MCHC (RBC) [Mass/Vol] 32.2 g/dL 32.0-35.0 [facility] MCV Auto (RBC) [Entitic vol] Ordered By: Chucho Saldaña on 11-17-2021 MCV (RBC) [Entitic vol] 84.9 fL 80-100 [facility] Monocytes Auto (Bld) [#/Vol] Ordered By: Chucho Saldaña on 11-17-2021 Monocytes (Bld) [#/Vol] 0.4 10*3/uL 0.0-0.8 [facility] Monocytes/100 WBC Auto (Bld) Ordered By: Chucho Saldaña on 11-17-2021 Monocytes/100 WBC (Bld) 7.0 % . [facility] Neutrophils Auto (Bld) [#/Vo l]Ordered By: Chucho Saldaña on 11-17-2021 Neutrophils (Bld) [#/Vol] 5.0 10*3/uL 1.8-7.7 [facility] Neutrophils/100 WBC Auto (Bl d)Ordered By: Chucho Saldaña on 11-17-2021 Neutrophils/100 WBC (Bld) 77.2 % . [facility] Nitrite Test strip Ql (U)Ord ered By: Chucho Saldaña on 11-17-2021 Nitrite Ql (U) Negative Negative [facility] No Panel InformationOrdered By: Chucho Saldaña on 11-17-2021 Estimated GFR () > 60 mL/Min [facility] Comment on above: GFR estimated refere nce range: According to KDOQI guidelines, <60 ml/min/1.73m2 is sufficient to diagnose a patient with chronic kidney disease. Pharmacy Creatinine Clearance (Chem 58.14 [facility] Platelet mean volume Auto (B ld) [Entitic vol]Ordered By: Chucho Saldaña on 11-17-2021 Platelet mean volume (Bld) [Entitic vol] 8.3 fL 6.3-10.7 [facility] Platelets Auto (Bld) [#/Vol] Ordered By: Chucho Saldaña on 11-17-2021 Platelets (Bld) [#/Vol] 203 10*3/uL 150-450 [facility] Protein Auto test strip (U) [Mass/Vol]Ordered By: Chucho Saldaña on 11-17-2021 Protein (U) [Mass/Vol] Trace mg/dL Negative [facility] Protein [Mass/volume] in Ser um or PlasmaOrdered By: Chucho Saldaña on 11-17-2021 Protein [Mass/Vol] 7.2 g/dL 6.1-7.9 [facility] RBC Auto (Bld) [#/Vol]Ordere d By: Chucho Saldaña on 11-17-2021 RBC (Bld) [#/Vol] 4.91 10*6/uL 3.60-5.[address] [facility] Serum or plasma alanine harris otransferase measurement without P-5'-P (enzymatic activiOrdered By: Chucho Saldaña on 11-17-2021 ALT No additional P-5'-P [Catalytic activity/Vol] 25 U/L [facility] Serum or plasma albumin/glob ulin mass ratioOrdered By: Chucho Saldaña on 11-17-2021 Albumin/Globulin [Mass ratio] 1.0 {ratio} [facility] Serum or plasma alkaline suzanne sphatase measurement (enzymatic activity/volume)Ordered By: Chucho Saldaña on 11-17-2021 ALP [Catalytic activity/Vol] 121 U/L [facility] Serum or plasma anion gap de terminationOrdered By: Chucho Saldaña on 11-17-2021 Anion gap [Moles/Vol] 15.1 mmol/L 6.0-15.0 [facility] Serum or plasma aspartate am inotransferase measurement (enzymatic activity/volume)Ordered By: Chuhco Saldaña on 11-17-2021 AST [Catalytic activity/Vol] 34 U/L [facility] Serum or plasma calcium jannet urement (mass/volume)Ordered By: Chucho Saldaña on 11-17-2021 Calcium [Mass/Vol] 10.0 mg/dL 8.2-10.2 [facility] Serum or plasma chloride yair surement (moles/volume)Ordered By: Chucho Saldaña on 11-17-2021 Chloride [Moles/Vol] 103 mmol/L 95-114 [facility] Serum or plasma glucose jannet urement (mass/volume)Ordered By: Chucho Saldaña on 11-17-2021 Glucose [Mass/Vol] 95 mg/dL 70-100 [facility] Comment on above: ADA recommended refe rence rangeRandom Glucose Reference Range is dependent on time and content of last meal. Glucose of more than 200 mg/dL in a nonstressed, ambulatory subject supports the diagnosis of Diabetes Mellitus. Serum or plasma non-glucuron idated bilirubin measurement (mass/volume)Ordered By: Chucho Saldaña on 11-17-2021 Bilirubin.indirect [Mass/Vol] 0.6 mg/dL [facility] Serum or plasma potassium me asurement (moles/volume)Ordered By: Chucho Saldaña on 11-17-2021 Potassium [Moles/Vol] 3.1 mmol/L 3.5-5.1 [facility] Serum or plasma sodium measu rement (moles/volume)Ordered By: Chucho Saldaña on 11-17-2021 Sodium [Moles/Vol] 142 mmol/L 136-146 [facility] Serum or plasma total biliru bin measurement (mass/volume)Ordered By: Chucho Saldaña on 11-17-2021 Bilirubin [Mass/Vol] 0.7 mg/dL 0.3-1.2 [facility] Serum or plasma total carbon dioxide measurement (moles/volume)Ordered By: Chucho Saldaña on 11-17-2021 CO2 [Moles/Vol] 27.0 mmol/L 22.0-30.0 [facility] Serum or plasma urea nitroge n measurement (mass/volume)Ordered By: Chucho Saldaña on 11-17-2021 Urea nitrogen [Mass/Vol] 9 mg/dL 9-23 [facility] Specific gravity Auto test s trip (U) [Rel density]Ordered By: Chucho Saldaña on 11-17-2021 Specific gravity (U) [Rel density] 1.013 1.001-1.030 [facility] Squamous epithelial cells de tection in urine sediment by light microscopyOrdered By: Chucho Saldaña on 11-17-2021 Epithelial cells.squamous LM Ql (Urine sed) 0-1 [HPF] 0-2 [facility] Urine bacteria detection by automated methodOrdered By: Chucho Saldaña on 11-17-2021 Bacteria Auto Ql (U) None seen None Seen [facility] Urine clarity by refractomet ry automatedOrdered By: Chucho Saldaña on 11-17-2021 Clarity Refractometry automated (U) Clear Clear [facility] Urine glucose measurement by automated test strip (mass/volume)Ordered By: Chucho Saldaña on 11-17-2021 Glucose Auto test strip (U) [Mass/Vol] Normal mg/dL Normal [facility] Urine hemoglobin detection b y automated test stripOrdered By: Chucho Saldaña on 11-17-2021 Hemoglobin Auto test strip Ql (U) Trace Negative [facility] Urine leukocyte esterase det ection by automated test stripOrdered By: Chucho Saldaña on 11-17-2021 Leukocyte esterase Auto test strip Ql (U) 1+ Negative [facility] Urobilinogen Auto test strip (U) [Mass/Vol]Ordered By: Chucho Saldaña on 11-17-2021 Urobilinogen (U) [Mass/Vol] Normal mg/dL Normal [facility] pH Auto test strip (U)Ordere d By: Chucho Saldaña on 11-17-2021 pH (U) 7.5 [pH] 5.0-9.0 [facility] CARDIAC AMAN ADMITon 022 CK [Catalytic activity/Vol] 69 U/L Normal 26-192 [facility] Comment on above: Performed By: #### C JAKUB MOLINA #### [facility] [address] [place] [address] Dr. Sheila Mittal CK.MB [Mass/Vol] 2.36 ng/mL Normal <=3.60 [facility] Comment on above: Performed By: #### C JAKUB MOLINA #### [facility] [address] [address] [address] Sheila Mittal HSTROP 9.5 pg/mL Normal 4.0-51.3 [facility] Comment on above: Result Comment: CUT- OFF POINTS HAVE BEEN ESTABLISHED BASED ON THE FOURTH UNIVERSAL DEFINITIONS OF MYOCARDIAL INFARCTION. THE UPPER REFERENCE LIMIT (URL) OF TROPONIN, DEFINED THE 99TH PERCENTILE OF cTnI DISTRIBUTION IN A REFERENCE POPULATION, HAS BEEN CONFIRMED THE DECISION THRESHOLD FOR TX DIAGNOSIS. Performed By: #### C TULIO MOLINADM #### [facility] [address] [address] [address] Sheila Mittal TEMO 97 ng/mL Critically high 9-82 [facility] Comment on above: Performed By: #### C TRACY, TULIODM #### [facility] [address] [address] [address] Sheila Mittal CBC AUTO DIFFon 10-18-2021 BASO # 0.0 103/ul Normal 0.0-0.1 [facility] Comment on above: Performed By: #### C BC #### [facility] [address] [place] [address] Dr. Sheila Mittal Basophils/100 WBC (Bld) 0.4 % Normal 0.2-2.0 [facility] Comment on above: Performed By: #### C BC #### [facility] [address] [place] [address] Dr. Sheila Mittal EO # 0.1 103/ul Normal 0.0-0.7 [facility] Comment on above: Performed By: #### C BC #### [facility] [address] [place] [address] Dr. Sheila Mittal Eosinophils/100 WBC (Bld) 1.0 % Normal 0.9-7.0 [facility] Comment on above: Performed By: #### C BC #### [facility] [address] [place] [address] Dr. Sheila Mittal Erythrocyte distribution width (RBC) [Ratio] 15.0 % Normal 11.0-15.0 [facility] Comment on above: Performed By: #### C BC #### [facility] [address] [place] [address] Dr. Sheila Mittal Hematocrit (Bld) [Volume fraction] 45.0 % Normal 36.0-48.0 [facility] Comment on above: Performed By: #### C BC #### [facility] [address] [place] [address] Dr. Sheila Mittal Hemoglobin (Bld) [Mass/Vol] 14.3 g/dL Normal 12.0-16.0 [facility] Comment on above: Performed By: #### C BC #### [facility] [address] [place] [address] Dr. Sheila Mittal IG # 0.04 10e3/ul Critically high 0.00-0.03 [facility] Comment on above: Performed By: #### C BC #### [facility] [address] [place] [address] Dr. Sheila Mittal IG % 0.4 % Normal 0.0-0.5 [facility] Comment on above: Performed By: #### C BC #### [facility] [address] [place] [address] Dr. Sheila Mittal LYMPH # 1.5 103/ul Normal 1.2-3.8 [facility] Comment on above: Performed By: #### C BC #### [facility] [address] [place] [address] Dr. Sheila Mittal Lymphocytes/100 WBC (Bld) 17.0 % Critically low 20.5-60.0 [facility] Comment on above: Performed By: #### C BC #### [facility] [address] [place] [address] Dr. Sheila Mittal MANUAL DIFF REQ NO Normal [facility] Comment on above: Performed By: #### C BC #### [facility] [address] [place] [address] Dr. Sheila Mittal MCH (RBC) [Entitic mass] 27.3 pg Normal 26.7-34.0 [facility] Comment on above: Performed By: #### C BC #### [facility] [address] [place] [address] Dr. Sheila Mittal MCHC (RBC) [Mass/Vol] 31.8 g/dL Normal 29.9-35.2 [facility] Comment on above: Performed By: #### C BC #### [facility] [address] [place] [address] Dr. Sheila Mittal MCV (RBC) [Entitic vol] 85.9 fL Normal 81.0-99.0 [facility] Comment on above: Performed By: #### C BC #### [facility] [address] [place] [address] Dr. Sheila Mittal MONO # 0.6 103/ul Normal 0.3-0.8 [facility] Comment on above: Performed By: #### C BC #### [facility] [address] [place] [address] Dr. Sheila Mittal Monocytes/100 WBC (Bld) 6.6 % Normal 1.7-12.0 [facility] Comment on above: Performed By: #### C BC #### [facility] [address] [place] [address] Dr. Sheila Mittal NEUT # 6.8 103/ul Critically high 1.4-6.5 [facility] Comment on above: Performed By: #### C BC #### [facility] [address] [place] [address] Dr. Sheila Mittal Neutrophils/100 WBC (Bld) 74.6 % Normal 43.0-75.0 [facility] Comment on above: Performed By: #### C BC #### [facility] [address] [place] [address] Dr. Sheila Mittal Platelet mean volume (Bld) [Entitic vol] 9.3 fL Critically low 9.5-13.5 [facility] Comment on above: Performed By: #### C BC #### [facility] [address] [place] [address] Dr. Sheila Mittal PLT 231 103/ul Normal 150-450 [facility] Comment on above: Performed By: #### C BC #### [facility] [address] [place] [address] Dr. Sheila Mittal RBC 5.24 106/ul Normal 4.20-5.40 [facility] Comment on above: Performed By: #### C BC #### [facility] [address] [place] [address] Dr. Sheila Mittal WBC 9.1 103/ul Normal 4.0-11.0 [facility] Comment on above: Performed By: #### C BC #### [facility] [address] [place] [address] Dr. Sheila Mittal ER URINE PROFILEon 2 Bilirubin Ql (U) SMALL Abnormal NEGATIVE [facility] Comment on above: Performed By: #### Leonardo SLADE UMICRO #### [facility] [address] [place] [address] Dr. Sheila Mittal Clarity (U) SL CLOUDY Abnormal CLEAR [facility] Comment on above: Performed By: #### Leonardo SLADE UMICRO #### [facility] [address] [place] [address] Dr. Sheila Mittal Color (U) YELLOW Normal YELLOW [facility] Comment on above: Performed By: #### LUCIANO KULKARNIICRO #### [facility] [address] [place] [address] Dr. Sheila ANGULO A micrscopic examination will be performed if indicated. Normal [facility] Comment on above: Performed By: #### Leonardo SLADE UMICRO #### [facility] [address] [place] [address] Dr. Sheila Mittal Glucose Ql (U) Negative Normal NEGATIVE [facility] Comment on above: Performed By: #### Leonardo SLADE UMICRO #### [facility] [address] [place] [address] Dr. Sheila Mittal Hemoglobin Ql (U) Negative Normal NEGATIVE [facility] Comment on above: Performed By: #### WHITNEY KULKARNIRO #### [facility] [address] [place] [address] Dr. Sheila Mittal Ketones Ql (U) TRACE Abnormal NEGATIVE [facility] Comment on above: Performed By: #### WHITNEY KULKARNIRO #### [facility] [address] [place] [address] Dr. Sheila Mittal LEUKOCYTES TRACE Abnormal NEGATIVE [facility] Comment on above: Performed By: #### WHITNEY KULKARNIRO #### [facility] [address] [place] [address] Dr. Sheila Mittal Nitrite Ql (U) Negative Normal NEGATIVE [facility] Comment on above: Performed By: #### WHITNEY KULKARNIRO #### [facility] [address] [place] [address] Dr. Sheila Mittal pH (U) 7.0 [pH] Normal 5-9 [facility] Comment on above: Performed By: #### Leonardo SLADE UMICRO #### [facility] [address] [place] [address] Dr. Sheila Mittal Protein (U) [Mass/Vol] 100 mg/dL Abnormal NEGAT PATRIZIA/ TRACE [facility] Comment on above: Performed By: #### Leonardo SLADE UMICRO #### [facility] [address] [place] [address] Dr. Sheila Mittal SPEC GRAVITY 1.015 Normal 1.005-<=1.02 5 [facility] Comment on above: Performed By: #### OZIEL KULKARNI #### [facility] [address] [place] [address] Dr. Sheila Mittal UR MICRO IND INDICATED Normal [facility] Comment on above: Performed By: #### WHITNEY KULKARNIRO #### [facility] [address] [place] [address] Dr. Sheila Mittal Urobilinogen Qn (U) 0.2 {Brooke'U}/dL Normal 0.2 - 1. 0 [facility] Comment on above: Performed By: #### OZIEL KULKARNI #### [facility] [address] [place] [address] Dr. Sheila Mittal LACTATE/LACTIC ACIDon 2021 Lactate [Moles/Vol] 1.9 mmol/L Normal 0.4-1.9 [facility] Comment on above: Performed By: #### L ACT #### [facility] [address] [place] [address] Dr. Sheila Mittal PROF 14(COMP METB)on 022 Albumin [Mass/Vol] 3.8 g/dL Normal 3.4-5.[address] [facility] Comment on above: Performed By: #### C JAKUB MOLINA #### [facility] [address] [place] [address] Dr. Sheila Mittal Albumin/Globulin [Mass ratio] 0.8 {ratio} Normal [facility] Comment on above: Performed By: #### C JAKUB MOLINA #### [facility] [address] [place] [address] Dr. Sheila Mittal ALP [Catalytic activity/Vol] 155 U/L Critically high 46-116 [facility] Comment on above: Performed By: #### C JAKUB MOLINA #### [facility] [address] [place] [address] Dr. Sheila Mittal ALT [Catalytic activity/Vol] 37 U/L Normal 14-59 [facility] Comment on above: Performed By: #### C TRACY CMADM #### [facility] [address] [address] [address] Sheila Mittal Anion gap [Moles/Vol] 13.5 mmol/L Normal [facility] Comment on above: Performed By: #### C MP, CMADM #### [facility] [address] [address] [address] Sheila Mittal AST [Catalytic activity/Vol] 42 U/L Critically high 15-37 [facility] Comment on above: Performed By: #### C MP, CMADM #### [facility] [address] [address] [address] Sheila Mittal Bilirubin [Mass/Vol] 0.7 mg/dL Normal 0.2-1.0 [facility] Comment on above: Performed By: #### C MP, CMADM #### [facility] [address] [address] [address] Sheila Mittal Calcium [Mass/Vol] 10.0 mg/dL Normal 8.5-10.[address] [facility] Comment on above: Performed By: #### C MP, CMADM #### [facility] [address] [address] [address] Sheila Mittal Chloride [Moles/Vol] 103 mmol/L Normal 98-107 [facility] Comment on above: Performed By: #### C MP, CMADM #### [facility] [address] [address] [address] Sheila Mittal CO2 [Moles/Vol] 29.7 mmol/L Normal 21.0-32.0 [facility] Comment on above: Performed By: #### C MP, CMADM #### [facility] [address] [address] [address] Sheila Mittal Creatinine [Mass/Vol] 1.06 mg/dL Critically high 0.55-1.02 [facility] Comment on above: Performed By: #### C MP, CMADM #### [facility] [address] [address] [address] Sheila Mittal EGFR-AF SERBIAN >60 Normal >=60 [facility] Comment on above: Performed By: #### C MP, CMADM #### [facility] [address] [address] [address] Sheila Mittal EGFR-NON AF SERBIAN 51 mL/min/1.73m2 Critically low >=60 [facility] Comment on above: Performed By: #### C MP, CMADM #### [facility] [address] [address] [address] Sheila Mittal Globulin (S) [Mass/Vol] 4.5 g/dL Normal [facility] Comment on above: Performed By: #### C MP, CMADM #### [facility] [address] [address] [address] Sheila Mittal Glucose [Mass/Vol] 104 mg/dL Normal 74-[address] [facility] Comment on above: Performed By: #### C MP, CMADM #### [facility] [address] [address] [address] Sheila Mittal Potassium [Moles/Vol] 3.2 mmol/L Critically low 3.5-5.1 [facility] Comment on above: Performed By: #### C MP, CMADM #### [facility] [address] [address] [address] Sheila Mittal Protein [Mass/Vol] 8.3 g/dL Critically high 6.4-8.2 [facility] Comment on above: Performed By: #### C MP, CMADM #### [facility] [address] [address] [address] Sheila Mittal Sodium [Moles/Vol] 143 mmol/L Normal 136-[address] [facility] Comment on above: Performed By: #### C MP, CMADM #### [facility] [address] [address] [address] Sheila Mittal Urea nitrogen [Mass/Vol] 10.0 mg/dL Normal 7.0-18.0 [facility] Comment on above: Performed By: #### C MP, CMADM #### [facility] [address] [address] [address] Sheila Mittal Urea nitrogen/Creatinine [Mass ratio] 9.4 mg/mg Normal [facility] Comment on above: Performed By: #### C TULIO MOLINADM #### [facility] [address] [address] [address] Sheila Mittal URINE MICROSCOPIC ONLYon BACTERIA NONE SEEN Normal NONE SEEN [facility] Comment on above: Performed By: #### E RUR, UMICRO ####[facility] [id number] [address]Dr. Sheila Mittal Bacteria identified Cx Nom (U) NOT INDICATED Normal [facility] Comment on above: Performed By: #### E RUDerrick, UMICRO ####[facility] [id number] [address]Dr. Sheila Mittal CAST SEEN Abnormal NONE SEEN [facility] Comment on above: Performed By: #### E BERLIN, UMICRO ####[facility] [id number] [address]Dr. Sheila Mittal Crystals LM Nom (Urine sed) NONE SEEN Normal NONE SEEN [facility] Comment on above: Performed By: #### E RUDerrick, UMICRO ####[facility] [id number] [address]Dr. Sheila Mittal Epithelial cells LM Ql (Urine sed) FEW Abnormal NONE SEEN /RARE [facility] Comment on above: Performed By: #### E RUDerrick, UMICRO ####[facility] [id number] [address]Dr. Sheila Mittal MUCOUS NONE SEEN Normal NONE SEEN [facility] Comment on above: Performed By: #### E RUR, UMICRO ####[facility] [id number] [address]Dr. Sheila Mittal RBC NONE SEEN Abnormal 0-2 [facility] Comment on above: Performed By: #### E RUR, UMICRO ####[facility] [id number] [address]Dr. Sheila Mittal WBC 0-2 Abnormal NONE SEEN [facility] Comment on above: Performed By: #### E RUR, UMICRO ####[facility] [id number] [place], [place] [address]Up. Sheila Mittal XR CHEST 1 Von 10-18-2021 [...] by: DELISA EVANS Date: 2021-10-18 16:27 Normal [facility] Creatinine and Glomerular fi ltration rate.predicted panel (S/P/Bld)Ordered By: Daniel Ma on 07-15-2021 Creatinine [Mass/Vol] 1.01 mg/dL 0.44-1.03 [facility] Estimated glomerular filtrat ion rate (GFR) non- AmericanOrdered By: Daniel Ma on 07-15-2021 GFR/1.73 sq M.predicted among non-blacks MDRD (S/P/Bld) [Vol rate/Area] 54 mL/Min [facility] No Panel InformationOrdered By: Daniel Ma on 07-15-2021 25-Hydroxy Vitamin D Total 42.9 ng/mL 30-100 [facility] Comment on above: VITAMIN D STATUS 25( [place])VITAMIN D RANGE (ng/mL) Deficient <20 Insufficient 20 to <30 Sufficient 30 to 100 Reference: Jenniffer MF,Neal NC, Mary FERGUSON, et al. Evaluation,treatment, and prevention of vitamin D deficiency; an Endocrine Society clinical practice guideline. JCEM. 2010; 96(7):1911-30. Estimated GFR () > 60 mL/Min [facility] Comment on above: GFR estimated refere nce range: According to KDOQI guidelines, <60 ml/min/1.73m2 is sufficient to diagnose a patient with chronic kidney disease. Pharmacy Creatinine Clearance (Chem N/A [facility] No Panel Informationon 07-15 9.6\S\9.6 Normal 8.2-10.2 [address] [address] DO Work Phone: 24.2\S\24.2 Normal 22.0-30.0 [place] [address] DO Work Phone: 102\S\102 Normal 95-114 [place] [address] DO Work Phone: 3.2\S\3.2 Normal 2.5-4.6 [place] [address] DO Work Phone: 138\S\138 Normal 136-146 [place] [address] DO Work Phone: > 60 Normal [place] [address] DO Work Phone: Comment on above: GFR estimated refere nce range: According to KDOQI guidelines, <60 ml/min/1.73m2 is sufficient to diagnose a patient with chronic kidney disease. 54\S\54 Normal [place] [address] DO Work Phone: 1.01\S\1.01 Normal 0.44-1.03 [place] [address] DO Work Phone: 16\S\16 Normal 9-23 [place] [address] DO Work Phone: 95\S\95 Normal 70-100 [place] [address] DO Work Phone: Comment on above: Random Glucose Refer ence Range is dependent on time and content of last meal. Glucose of more than 200 mg/dL in a nonstressed, ambulatory subject supports the diagnosis of Diabetes Mellitus. ADA recommended reference range 4.7\S\4.7 Normal 2.6-7.2 [place] [address] DO Work Phone: 42.9\S\42.9 Normal 30-100 [place] [address] DO Work Phone: Comment on above: VITAMIN D STATUS 25( [place])VITAMIN D RANGE (ng/mL) Deficient <20 Insufficient 20 to <30 Sufficient 30 to 100 Reference: Jenniffer MF,Neal NC, Mary FERGUSON, et al. Evaluation,treatment, and prevention of vitamin D deficiency; an Endocrine Society clinical practice guideline. JCEM. 2010; 96(7):1911-30. 48.8\S\48.8 Normal -[facility] 3 DO Work Phone: Comment on above: PERFORMED BY:[facility] [place], [place] [id number] MEDICAL DIRECTORLISA VERDE M.D. Phosphate [Mass/volume] in S wero or PlasmaOrdered By: Daniel Ma on 07-15-2021 Phosphate [Mass/Vol] 3.2 mg/dL 2.5-4.6 [facility] Serum or plasma calcium jannet urement (mass/volume)Ordered By: Daniel Ma on 07-15-2021 Calcium [Mass/Vol] 9.6 mg/dL 8.2-10.2 [facility] Serum or plasma chloride yair surement (moles/volume)Ordered By: Daniel Ma on 07-15-2021 Chloride [Moles/Vol] 102 mmol/L 95-114 [facility] Serum or plasma glucose jannet urement (mass/volume)Ordered By: Daniel Ma on 07-15-2021 Glucose [Mass/Vol] 95 mg/dL 70-100 [facility] Comment on above: ADA recommended refe rence range Random Glucose Reference Range is dependent on time and content of last meal. Glucose of more than 200 mg/dL in a nonstressed, ambulatory subject supports the diagnosis of Diabetes Mellitus. Serum or plasma intact parat hyroid hormone measurement (mass/volume)Ordered By: Daniel Ma on 07-15-2021 Parathyrin.intact [Mass/Vol] 48.8 pg/mL [facility] Serum or plasma potassium me asurement (moles/volume)Ordered By: Daniel Ma on 07-15-2021 Potassium [Moles/Vol] 3.2 mmol/L 3.5-5.1 [facility] Serum or plasma sodium measu rement (moles/volume)Ordered By: Daniel Ma on 07-15-2021 Sodium [Moles/Vol] 138 mmol/L 136-146 [facility] Serum or plasma total carbon dioxide measurement (moles/volume)Ordered By: Daniel Ma on 07-15-2021 CO2 [Moles/Vol] 24.2 mmol/L 22.0-30.0 [facility] Serum or plasma urea nitroge n measurement (mass/volume)Ordered By: Daniel Ma on 07-15-2021 Urea nitrogen [Mass/Vol] 16 mg/dL 9-23 [facility] Serum or plasma uric acid me asurement (mass/volume)Ordered By: Daniel Ma on 07-15-2021 Urate [Mass/Vol] 4.7 mg/dL 2.6-7.2 [facility] Tobacco Screening.on 022 Adult depression screening assessment No [facility] [employer] 250 DO Work Phone: Fall risk assessment b) One or more fall s in the last year [facility] [employer] 250 DO Work Phone: Tobacco use status [facility] b) No [facility] [employer] 250 DO Work Phone: Vital Signs Date Time Vital Sign Value Performing Clinician Facility 07-18-2024 13:28-0400 Body height 160 cm Daniel Ma MD Work Phone: [facility] 07-18-2024 13:28-0400 Body mass index (BMI) [Ratio] 33.48 kg/m2 Daniel Ma MD Work Phone: [facility] 07-18-2024 13:28-0400 Body weight 85.73 kg Daniel Ma MD Work Phone: [facility] 07-18-2024 13:28-0400 Diastolic blood pressure 91 mm[Hg] Daniel Ma MD Work Phone: [facility] 07-18-2024 13:28-0400 Heart rate 88 /min Daniel Ma MD Work Phone: [facility] 07-18-2024 13:28-0400 Systolic blood pressure 128 mm[Hg] Daniel Ma MD Work Phone: [facility] 05-09-2024 14:43-0400 Diastolic blood pressure 99 mm[Hg] Chris Torres MD Work Phone: [facility] 05-09-2024 14:43-0400 Heart rate 83 /min Chris Torres MD Work Phone: [facility] 05-09-2024 14:43-0400 Systolic blood pressure 149 mm[Hg] Chris Torres MD Work Phone: [facility] 04-03-2024 16:23-0500 Body height 160 cm Елена Mg DIRECTOR OF RESEARCH AND DEVELOPMENT Work Phone: [facility] 04-03-2024 16:23-0500 Body mass index (BMI) [Ratio] 32.13 kg/m2 Елена Mg DIRECTOR OF RESEARCH AND DEVELOPMENT Work Phone: [facility] 04-03-2024 16:23-0500 Body weight 82.28 kg Елена Mg DIRECTOR OF RESEARCH AND DEVELOPMENT Work Phone: [facility] 04-03-2024 16:23-0500 Diastolic blood pressure 82 mm[Hg] Елена Mg DIRECTOR OF RESEARCH AND DEVELOPMENT Work Phone: [facility] 04-03-2024 16:23-0500 Heart rate 95 /min Елена Mg DIRECTOR OF RESEARCH AND DEVELOPMENT Work Phone: [facility] 04-03-2024 16:23-0500 Respiratory rate 17 /min Елена Mg DIRECTOR OF RESEARCH AND DEVELOPMENT Work Phone: [facility] 04-03-2024 16:23-0500 SaO2% (BldA) [Mass fraction] 98 % Елена Mg DIRECTOR OF RESEARCH AND DEVELOPMENT Work Phone: [facility] 04-03-2024 16:23-0500 Systolic blood pressure 122 mm[Hg] Елена Mg DIRECTOR OF RESEARCH AND DEVELOPMENT Work Phone: [facility] 03-21-2024 15:47-0500 Body height 160 cm Monika Lehman MD Work Phone: [facility] 03-21-2024 15:47-0500 Body mass index (BMI) [Ratio] 32.59 kg/m2 Monika Lehman MD Work Phone: [facility] 03-21-2024 15:47-0500 Body weight 83.46 kg Monika Lehman MD Work Phone: [facility] 03-21-2024 15:47-0500 Diastolic blood pressure 88 mm[Hg] Monika Lehman MD Work Phone: [facility] 03-21-2024 15:47-0500 Heart rate 91 /min Monika Lehman MD Work Phone: [facility] 03-21-2024 15:47-0500 SaO2% (BldA) [Mass fraction] 98 % Monika Lehman MD Work Phone: [facility] 03-21-2024 15:47-0500 Systolic blood pressure 138 mm[Hg] Monika Lehman MD Work Phone: [facility] 03-05-2024 16:34-0500 Body height 160 cm Monika Lehman MD Work Phone: [facility] 03-05-2024 16:34-0500 Body mass index (BMI) [Ratio] 32.42 kg/m2 Monika Lehman MD Work Phone: [facility] 03-05-2024 16:34-0500 Body weight 83.01 kg Monika Lehman MD Work Phone: [facility] 03-05-2024 16:34-0500 Diastolic blood pressure 86 mm[Hg] Monika Lehman MD Work Phone: [facility] 03-05-2024 16:34-0500 Heart rate 94 /min Monika Lehman MD Work Phone: [facility] 03-05-2024 16:34-0500 SaO2% (BldA) [Mass fraction] 95 % Monika Lehman MD Work Phone: [facility] 03-05-2024 16:34-0500 Systolic blood pressure 138 mm[Hg] Mnoika Lehman MD Work Phone: [facility] 02-20-2024 14:11-0500 Body height 160 cm Monika Lehman MD Work Phone: [facility] 02-20-2024 14:11-0500 Body mass index (BMI) [Ratio] 32.95 kg/m2 Monika Lehman MD Work Phone: [facility] 02-20-2024 14:11-0500 Body weight 84.37 kg Monika Lehman MD Work Phone: [facility] 02-20-2024 14:11-0500 Diastolic blood pressure 86 mm[Hg] Monika Lehman MD Work Phone: [facility] 02-20-2024 14:11-0500 Heart rate 90 /min Monika Lehman MD Work Phone: [facility] 02-20-2024 14:11-0500 SaO2% (BldA) [Mass fraction] 99 % Monika Lehman MD Work Phone: [facility] 02-20-2024 14:11-0500 Systolic blood pressure 124 mm[Hg] Monika Lehman MD Work Phone: [facility] 01-17-2024 13:57-0500 Body height 160 cm Елена Mg DIRECTOR OF RESEARCH AND DEVELOPMENT Work Phone: [facility] 01-17-2024 13:57-0500 Body mass index (BMI) [Ratio] 32.63 kg/m2 Елена gM DIRECTOR OF RESEARCH AND DEVELOPMENT Work Phone: [facility] 01-17-2024 13:57-0500 Body weight 83.55 kg Елена Mg DIRECTOR OF RESEARCH AND DEVELOPMENT Work Phone: [facility] 01-17-2024 13:57-0500 Diastolic blood pressure 80 mm[Hg] Елена Mg DIRECTOR OF RESEARCH AND DEVELOPMENT Work Phone: [facility] 01-17-2024 13:57-0500 Heart rate 69 /min Елена Mg DIRECTOR OF RESEARCH AND DEVELOPMENT Work Phone: [facility] 01-17-2024 13:57-0500 Respiratory rate 17 /min Елена Mg DIRECTOR OF RESEARCH AND DEVELOPMENT Work Phone: [facility] 01-17-2024 13:57-0500 SaO2% (BldA) [Mass fraction] 97 % Елена Mg DIRECTOR OF RESEARCH AND DEVELOPMENT Work Phone: [facility] 01-17-2024 13:57-0500 Systolic blood pressure 122 mm[Hg] Елена Mg DIRECTOR OF RESEARCH AND DEVELOPMENT Work Phone: [facility] 12-20-2023 13:17-0500 Body height 160 cm Елена Mg DIRECTOR OF RESEARCH AND DEVELOPMENT Work Phone: [facility] 12-20-2023 13:17-0500 Body mass index (BMI) [Ratio] 30.82 kg/m2 Елена Mg DIRECTOR OF RESEARCH AND DEVELOPMENT Work Phone: [facility] 12-20-2023 13:17-0500 Body weight 78.93 kg Елена Mg DIRECTOR OF RESEARCH AND DEVELOPMENT Work Phone: [facility] 12-20-2023 13:17-0500 Diastolic blood pressure 88 mm[Hg] Елена Mg DIRECTOR OF RESEARCH AND DEVELOPMENT Work Phone: [facility] 12-20-2023 13:17-0500 Heart rate 81 /min Елена Mg DIRECTOR OF RESEARCH AND DEVELOPMENT Work Phone: [facility] 12-20-2023 13:17-0500 SaO2% (BldA) [Mass fraction] 98 % Елена Mg DIRECTOR OF RESEARCH AND DEVELOPMENT Work Phone: [facility] 12-20-2023 13:17-0500 Systolic blood pressure 134 mm[Hg] Елена Mg DIRECTOR OF RESEARCH AND DEVELOPMENT Work Phone: [facility] 07-21-2023 11:11-0400 Body height 160 cm Daniel Ma MD Work Phone: [facility] 07-21-2023 11:11-0400 Body mass index (BMI) [Ratio] 30.82 kg/m2 Daniel Ma MD Work Phone: [facility] 07-21-2023 11:11-0400 Body weight 78.93 kg Daniel Ma MD Work Phone: [facility] 07-21-2023 11:11-0400 Diastolic blood pressure 76 mm[Hg] Daniel Ma MD Work Phone: [facility] 07-21-2023 11:11-0400 Heart rate 80 /min Daniel Ma MD Work Phone: [facility] 07-21-2023 11:11-0400 Systolic blood pressure 126 mm[Hg] Daniel Ma MD Work Phone: [facility] 01-20-2023 10:47-0500 Body height 160 cm Daniel Ma MD Work Phone: [facility] 01-20-2023 10:47-0500 Body mass index (BMI) [Ratio] 29.76 kg/m2 Daniel Ma MD Work Phone: [facility] 01-20-2023 10:47-0500 Body weight 76.2 kg Daniel Ma MD Work Phone: [facility] 01-20-2023 10:47-0500 Diastolic blood pressure 79 mm[Hg] Daniel Ma MD Work Phone: [facility] 01-20-2023 10:47-0500 Heart rate 83 /min Daniel Ma MD Work Phone: [facility] 01-20-2023 10:47-0500 Systolic blood pressure 119 mm[Hg] Daniel Ma MD Work Phone: [facility] 11-21-2022 15:31-0400 Body height 160 cm Elinor Raman MD Work Phone: [facility] 11-21-2022 15:31-0400 Body mass index (BMI) [Ratio] 29.58 kg/m2 Elinor Raman MD Work Phone: [facility] 11-21-2022 15:31-0400 Body weight 75.75 kg Elinor Raman MD Work Phone: [facility] 11-21-2022 15:31-0400 Diastolic blood pressure 86 mm[Hg] Elinor Raman MD Work Phone: [facility] 11-21-2022 15:31-0400 Heart rate 82 /min Elinor Raman MD Work Phone: [facility] 11-21-2022 15:31-0400 Systolic blood pressure 112 mm[Hg] Elinor Raman MD Work Phone: [facility] 10-25-2022 11:30-0400 Heart rate 61 /min Kenton Kapadia MD Work Phone: [facility] 10-25-2022 11:30-0400 SaO2% (BldA) [Mass fraction] 97 % Kenton Kapadia MD Work Phone: [facility] 10-25-2022 11:29-0400 Diastolic blood pressure 82 mm[Hg] Kenton Kapadia MD Work Phone: [facility] 10-25-2022 11:29-0400 Systolic blood pressure 131 mm[Hg] Kenton Kapadia MD Work Phone: [facility] 10-25-2022 11:15-0400 Body temperature 98.1 [degF] Kenton Kapadia MD Work Phone: [facility] 10-25-2022 11:15-0400 Respiratory rate 18 /min Kenton Kapadia MD Work Phone: [facility] 10-25-2022 09:51-0400 Body height 160 cm Kenton Kapadia MD Work Phone: [facility] 10-25-2022 09:51-0400 Body weight 68.04 kg Kenton Kapadia MD Work Phone: [facility] 09-20-2022 12:51-0400 Body height 160.02 cm Monika Lehman Work Phone: [address] Work Phone: 09-20-2022 12:51-0400 Body mass index (BMI) [Ratio] 29.23 kg/m2 Rugen M Fallon Work Phone: [facility] [address] [place] Work Phone: 09-20-2022 12:51-0400 Body surface area Derived from formula 1.78 m2 Rugen M Fallon Work Phone: [facility] [address] [place] Work Phone: 09-20-2022 12:51-0400 Body temperature 97.2 [degF] Rugen M [place] Work Phone: [facility] [address] [place] Work Phone: 09-20-2022 12:51-0400 Body weight 74.84 kg Rugen M Fallon Work Phone: [facility] [address] [place] Work Phone: 09-20-2022 12:51-0400 Diastolic blood pressure 100 mm[Hg] Rugen M Fallon Work Phone: [facility] [address] [place] Work Phone: 09-20-2022 12:51-0400 Heart rate 90 /min Rugen M [place] Work Phone: [facility] [address] [place] Work Phone: 09-20-2022 12:51-0400 Systolic blood pressure 156 mm[Hg] Rugen M Fallon Work Phone: [facility] [address] [place] Work Phone: 05-04-2022 11:56-0400 Body height 160.02 cm Rugen M Fallon Work Phone: [facility] 250 DO Work Phone: 05-04-2022 11:56-0400 Body mass index (BMI) [Ratio] 26.93 kg/m2 Rugen M [place] Work Phone: [facility] 250 DO Work Phone: 05-04-2022 11:56-0400 Body surface area Derived from formula 1.72 m2 Rugen M Fallon Work Phone: [facility] 250 DO Work Phone: 05-04-2022 11:56-0400 Body weight 68.95 kg Rugen M [place] Work Phone: [facility] 250 DO Work Phone: 05-04-2022 11:56-0400 Diastolic blood pressure 70 mm[Hg] Rugen M Fallon Work Phone: [facility] 250 DO Work Phone: 05-04-2022 11:56-0400 Heart rate 60 /min Rugen M [place] Work Phone: [facility] 250 DO Work Phone: 05-04-2022 11:56-0400 Systolic blood pressure 130 mm[Hg] Rugen M [place] Work Phone: [facility] 250 DO Work Phone: 03-22-2022 15:35-0500 Body height 160.02 cm Rugen M Fallon Work Phone: [facility] 3 DO Work Phone: 03-22-2022 15:35-0500 Body mass index (BMI) [Ratio] 27.81 kg/m2 Rugen M [place] Work Phone: [facility] 3 DO Work Phone: 03-22-2022 15:35-0500 Body surface area Derived from formula 1.74 m2 Rugen M Fallon Work Phone: [facility] 3 DO Work Phone: 03-22-2022 15:35-0500 Body temperature 97.1 [degF] Rugen M [place] Work Phone: [facility] 3 DO Work Phone: 03-22-2022 15:35-0500 Body weight 71.22 kg Rugen M [place] Work Phone: [facility] 3 DO Work Phone: 03-22-2022 15:35-0500 Diastolic blood pressure 82 mm[Hg] Rugen M Fallon Work Phone: [facility] 3 DO Work Phone: 03-22-2022 15:35-0500 Heart rate 60 /min Rugen M Fallon Work Phone: [facility] 3 DO Work Phone: 03-22-2022 15:35-0500 Systolic blood pressure 130 mm[Hg] Rugen M Fallon Work Phone: [facility] 3 DO Work Phone: 02-24-2022 09:51-0500 Body height 160 cm Pacc 2 Work Phone: [facility] 02-24-2022 09:51-0500 Body temperature 97.2 [degF] Pacc 2 Work Phone: [facility] 02-24-2022 09:51-0500 Body weight 71.22 kg Pacc 2 Work Phone: [facility] 02-24-2022 09:51-0500 Diastolic blood pressure 87 mm[Hg] Pacc 2 Work Phone: [facility] 02-24-2022 09:51-0500 Heart rate 63 /min Pacc 2 Work Phone: [facility] 02-24-2022 09:51-0500 SaO2% (BldA) [Mass fraction] 99 % Pacc 2 Work Phone: [facility] 02-24-2022 09:51-0500 Systolic blood pressure 153 mm[Hg] [facility] 2 Work Phone: [facility] 01-12-2022 10:05-0500 Body height 157.5 cm BROOKE Garcia MD Work Phone: [facility] 01-12-2022 10:05-0500 Body temperature 97.39 [degF] BROOKE Garcia MD Work Phone: [facility] 01-12-2022 10:05-0500 Body weight 71.89 kg BROOKE Garcia MD Work Phone: [facility] 01-12-2022 10:05-0500 Diastolic blood pressure 107 mm[Hg] BROOKE Garcia MD Work Phone: [facility] 01-12-2022 10:05-0500 Heart rate 107 /min BROOKE Garcia MD Work Phone: [facility] 01-12-2022 10:05-0500 SaO2% (BldA) [Mass fraction] 97 % BROOKE Garcia MD Work Phone: [facility] 01-12-2022 10:05-0500 Systolic blood pressure 152 mm[Hg] BROOKE Garcia MD Work Phone: [facility] 12-06-2021 12:20-0400 Diastolic blood pressure 89 mm[Hg] Kenton Kapadia MD Work Phone: [facility] 12-06-2021 12:20-0400 Heart rate 69 /min Kenton Kapadia MD Work Phone: [facility] 12-06-2021 12:20-0400 Respiratory rate 16 /min Kenton Kapadia MD Work Phone: [facility] 12-06-2021 12:20-0400 SaO2% (BldA) [Mass fraction] 98 % Kenton Kapadia MD Work Phone: [facility] 12-06-2021 12:20-0400 Systolic blood pressure 153 mm[Hg] Kenton Kapadia MD Work Phone: [facility] 12-06-2021 12:01-0400 Body temperature 96.8 [degF] Kenton Kapadia MD Work Phone: [facility] 12-06-2021 09:04-0400 Body height 160 cm Kenton Kapadia MD Work Phone: [facility] 12-06-2021 09:04-0400 Body weight 77.11 kg Kenton Kapadia MD Work Phone: [facility] 11-17-2021 14:09-0400 Diastolic blood pressure 92 mm[Hg] MD Monika Lehman Work Phone: [facility] 11-17-2021 14:09-0400 Heart rate 92 /min MD Monika Lehman Work Phone: [facility] 11-17-2021 14:09-0400 Respiratory rate 18 /min MD Monika Lehman Work Phone: [facility] 11-17-2021 14:09-0400 SaO2% (BldA) [Mass fraction] 95 % MD Monika Lehman Work Phone: [facility] 11-17-2021 14:09-0400 Systolic blood pressure 168 mm[Hg] MD Monika Lehman Work Phone: [facility] 11-17-2021 10:47-0400 Body height 160.02 cm MD Monika Lehman Work Phone: [facility] 11-17-2021 10:47-0400 Body temperature 98.3 [degF] MD Monika Lehman Work Phone: [facility] 11-17-2021 10:47-0400 Body weight 74.84 kg MD Monika Lehman Work Phone: [facility] 06-14-2021 11:30-0400 Body height 160.02 cm Nick Acosta Other [employer] Other 06-14-2021 11:30-0400 Body mass index (BMI) [Ratio] 31.53 kg/m2 Nick Acosta Other [employer] Other 06-14-2021 11:30-0400 Body temperature 96.4 [degF] Nick Acosta Other [employer] Other 06-14-2021 11:30-0400 Body weight 80.74 kg Nick Acosta Other [employer] Other 06-14-2021 11:30-0400 Diastolic blood pressure 80 mm[Hg] Nick Acosta Other [employer] Other 06-14-2021 11:30-0400 SaO2% (BldA) [Mass fraction] 96 % Nick Acosta Other [employer] Other 06-14-2021 11:30-0400 Systolic blood pressure 140 mm[Hg] Nick Acosta Other [employer] Other 05-03-2021 11:26-0400 Diastolic blood pressure 82 mm[Hg] Rugen M Fallon Work Phone: [facility] DO Work Phone: 05-03-2021 11:26-0400 Systolic blood pressure 128 mm[Hg] Rugen M Fallon Work Phone: [facility] 250 DO Work Phone: 05-03-2021 11:21-0400 Body height 160.02 cm Rugen M Fallon Work Phone: [facility] 250 DO Work Phone: 05-03-2021 11:21-0400 Body mass index (BMI) [Ratio] 32.77 kg/m2 Rugen Padmini [place] Work Phone: [facility] 250 DO Work Phone: 05-03-2021 11:21-0400 Body surface area Derived from formula 1.87 m2 Rugen Padmini [place] Work Phone: [facility] 250 DO Work Phone: 05-03-2021 11:21-0400 Body weight 83.92 kg Rugen Padmini Fallon Work Phone: [facility] 250 DO Work Phone: 05-03-2021 11:21-0400 Diastolic blood pressure 93 mm[Hg] Ceeen Padmini Fallon Work Phone: [facility] 250 DO Work Phone: 05-03-2021 11:21-0400 Heart rate 63 /min eCeen Padmini Fallon Work Phone: [facility] 250 DO Work Phone: 05-03-2021 11:21-0400 Systolic blood pressure 156 mm[Hg] Ceeen Padmini Fallon Work Phone: [facility] 250 DO Work Phone: 12-15-2020 12:15-0400 Body height 160.02 cm Nick Acosta Other [employer] Other 12-15-2020 12:15-0400 Body mass index (BMI) [Ratio] 31.53 kg/m2 Nick Acosta Other [employer] Other 12-15-2020 12:15-0400 Body temperature 97.2 [degF] Nick Acosta Other [employer] Other 12-15-2020 12:15-0400 Body weight 80.74 kg Nick Acosta Other [employer] Other 12-15-2020 12:15-0400 Diastolic blood pressure 90 mm[Hg] Nick Acosta Other [employer] Other 12-15-2020 12:15-0400 SaO2% (BldA) [Mass fraction] 97 % Nick Acosta Other [employer] Other 12-15-2020 12:15-0400 Systolic blood pressure 150 mm[Hg] Nick Schulzderrick Other [employer] Other Encounters Encounter Date Encounter Type Care Provider Facility Start: 07-18-2024 End: 07-18-2024 Clinisync Result Encounter Generic External Data Provider [facility] Unsolicited Start: 07-18-2024 End: 07-18-2024 Clinisync Result Encounter Generic External Data Provider [facility] External Department Unsolicited Start: 07-18-2024 ambulatory [facility]ANIEL [facility] Start: 07-18-2024 End: 07-18-2024 Office outpatient visit 15 minutes Daniel Ma MD Work Phone: [facility] Comment on above: Essential hypertensi on (Primary Dx) Start: 05-29-2024 End: 05-29-2024 Telephone encounter Chris Torres MD Work Phone: Cardiology Start: 05-28-2024 End: 05-28-2024 Clinisync Result Encounter Generic External Data Provider [facility] External Department Unsolicited Start: 05-28-2024 End: 05-28-2024 Clinisync Result Encounter Generic External Data Provider [facility] External Department Unsolicited Start: 05-28-2024 End: 05-28-2024 ambulatory CHRIS TORRES Facility:[facility] Start: 05-28-2024 Encounter for preprocedural cardiovascular examination MONIKA DAVIESA [facility] Start: 05-28-2024 End: 05-28-2024 Patient encounter procedure Nuclear Study Card Hillcr Work Phone: Cardiology Comment on above: Encounter for screen ing for cardiovascular disorders; Encounter for preprocedural cardiovascular examination Start: 05-28-2024 End: 05-28-2024 Patient encounter status Nuclear Mc Work Phone: [facility] Start: 05-27-2024 End: 05-27-2024 Telephone encounter Chris Torres MD Work Phone: Cardiology Comment on above: Appointment (Pre-Nuc lear stress test call) Start: 05-22-2024 Evaluation and manag ement of inpatient Rugen M [place] Facility:[facility] Start: 05-09-2024 End: 05-09-2024 ambulatory CHRIS TORRES Facility:[facility] Start: 05-09-2024 End: 05-09-2024 Office outpatient new 60 minutes Chris Torres MD Work Phone: Vascular Surg Dept Comment on above: Carotid stenosis, as ymptomatic, bilateral (Primary Dx); Pararenal abdominal aortic aneurysm (AAA) without rupture; Encounter for screening for cardiovascular disorders; Encounter for preprocedural cardiovascular examination Start: 05-09-2024 End: 05-09-2024 Patient encounter status Chris Torres MD Work Phone: [facility] Start: 05-08-2024 End: 05-08-2024 Telephone encounter Erinn Lawson MD Work Phone: Internal Medicine Start: 04-29-2024 End: 04-29-2024 ambulatory RUGEN FALLON Not Available Start: 04-18-2024 End: 04-18-2024 ambulatory RUGEN M FALLON Not Available Start: 04-18-2024 End: 04-18-2024 Bamboo flowsheet Monika Lehman MD Work Phone: [facility] Start: 04-18-2024 End: 04-18-2024 Bamboo flowsheet Monika Lehman MD Work Phone: [facility] Start: 04-16-2024 End: 04-17-2024 Refill Monika Lehman MD Work Phone: [facility] Comment on above: Neuralgia and neurit is, unspecified; Spondylosis without myelopathy or radiculopathy, lumbar region; Adjustment disorder with anxiety (CMS/HCC) Start: 04-10-2024 End: 04-10-2024 Clinisync Result Encounter Monika Lehman MD Work Phone: [facility] Unsolicited Start: 04-10-2024 End: 04-10-2024 Clinisync Result Encounter Monika Lehman MD Work Phone: [facility] Unsolicited Start: 04-03-2024 End: 04-03-2024 Office outpatient visit 25 minutes Елена Mg DIRECTOR OF RESEARCH AND DEVELOPMENT Work Phone: [facility] Comment on above: Loose stools (Primar y Dx); Acute bronchitis, unspecified organism; Irritable bowel syndrome with diarrhea Start: 04-03-2024 End: 04-03-2024 ambulatory ЕЛЕНА MG [...] diuretic therapy Start: 03-05-2024 End: 03-05-2024 ambulatory MONIKA LEHMAN Not Available Start: 02-20-2024 End: 02-20-2024 ambulatory MONIKA [place] Not Available Start: 02-20-2024 End: 02-20-2024 [...] Start: 02-09-2024 End: 02-09-2024 Refill Chhaya Monday PICKER OPERATOR Work Phone: [facility] Comment on [...] 01-17-2024 End: 01-17-2024 Bamboo flowsheet Елена Mg DIRECTOR OF RESEARCH AND DEVELOPMENT Work Phone: [facility] Start: 01-17-2024 End: 01-17-2024 Bamboo flowsheet Елена Mg DIRECTOR OF RESEARCH AND DEVELOPMENT Work Phone: [facility] Start: 01-17-2024 End: 01-17-2024 ambulatory ЕЛЕНА MG Not Available Start: 01-13-2024 End: 01-13-2024 Telephone encounter Елена Mg DIRECTOR OF RESEARCH AND DEVELOPMENT Work Phone: [facility] Start: 12-20-2023 End: 12-20-2023 ambulatory ЕЛЕНА MG Not Available Start: 12-20-2023 End: 12-20-2023 Office outpatient visit 25 minutes Елена Mg DIRECTOR OF RESEARCH AND DEVELOPMENT Work Phone: [facility] Comment on [...] 01-17-2024 Assay of hemosiderin, quant Елена Mg DIRECTOR OF RESEARCH AND DEVELOPMENT Work Phone: [facility] Start: 08-07-2023 Patient encounter procedure Елена Mg DIRECTOR OF RESEARCH AND DEVELOPMENT Work Phone: [facility] Start: 07-21-2023 End: 07-21-2023 ambulatory [facility] Ambulatory Start: 07-21-2023 End: 07-21-2023 Office outpatient visit 15 minutes Daniel Ma MD Work Phone: [facility] Comment on above: Essential hypertensi on (Primary Dx) Start: 07-18-2023 End: 07-18-2023 ambulatory AMAN QUIROZ Not Available Start: 07-04-2023 End: 07-04-2023 ambulatory ERICA WOODSMELISSA Not Available Start: 03-24-2023 End: 03-24-2023 ambulatory Julio Pierce PT Work Phone: [facility] Comment on above: Cervical paraspinal muscle spasm (Primary Dx); Polyneuropathy; Central vestibular vertigo; Unsteadiness on feet Start: 03-24-2023 End: 03-24-2023 Patient encounter procedure Aman Quiroz MD Work Phone: [facility] Comment on above: Numbness (Primary Dx ) Start: 01-20-2023 End: 01-20-2023 Office outpatient visit 15 minutes Daniel Ma MD Work Phone: [facility] Comment on above: Essential hypertensi on (Primary Dx) Start: 11-21-2022 End: 11-21-2022 Office outpatient visit 25 minutes Elinor Raman MD Work Phone: [facility] Comment on above: Former smoker (Prima ry Dx); Essential hypertension; 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); PVC (premature ventricular contraction); Other ill-defined heart diseases Start: 10-25-2022 End: 10-25-2022 Subsequent hospital visit by physician Kenton Kapadia MD Work Phone: Gastroenterology Comment on above: Abdominal pain, unsp ecified abdominal location [R10.9] Start: 10-18-2022 Telephone encounter Swathi Pond RNsocial economist Comment on above: Appointment Start: 09-20-2022 Office outpatient vi sit 25 minutes Monika Lehman Work Phone: [address] Work Phone: Start: 09-20-2022 ambulatory Daniel Ma Facility: Start: 05-12-2022 ambulatory Ms. Seema Saldaña Facility: Start: 05-12-2022 Patient encounter procedure Monika Lehman Work Phone: [facility] 250 DO Work Phone: Start: 05-04-2022 ambulatory Ms. Seema Saldaña Facility: Start: 04-21-2022 Telephone encounter Keiko rizzo RN Gastroenterology Comment on above: Orders Start: 04-20-2022 Telephone encounter Debbi ballard HAND BRAILLE TRANSCRIBER.PRIMER PRESS OPERATOR Work Phone: Gastroenterology Comment on above: Erroneous encounter- disregard Start: 04-20-2022 End: 04-20-2022 Follow-up encounter Melody Hernandez KIRILL.PRIMER PRESS OPERATOR Work Phone: Colorectal Surgery Comment on above: Follow-up exam (Prim chin Dx) Start: 04-20-2022 End: 04-20-2022 Telemedicine consultation with patient Melody Hernandez APRN.PRIMER PRESS OPERATOR Work Phone: [facility] Start: 04-19-2022 End: 04-19-2022 ambulatory Debbi Hammond APRN.PRIMER PRESS OPERATOR Work Phone: Gastroenterology Comment on above: Abdominal pain, unsp ecified abdominal location (Primary Dx); Adenomatous rectal polyp; Adverse effect of treatment, initial encounter Start: 04-19-2022 End: 04-19-2022 Telemedicine consultation with patient Debbi Hammond APRN.PRIMER PRESS OPERATOR Work Phone: [facility] Start: 04-10-2022 Orders Only Taz thapa MD Work Phone: Gastroenterology Comment on above: Adenomatous rectal p olyp (Primary Dx) Start: 03-28-2022 Telephone encounter Gareth merritt MD Work Phone: Colorectal Surgery Comment on above: Clinical Training Specialist - O ther Start: 03-23-2022 End: 03-24-[address] MONIKA LEHMAN Facility:[facility] Start: 03-22-2022 Office outpatient vi sit 15 minutes Monika Lehman Work Phone: [facility] 3 DO Work Phone: Start: 03-22-2022 ambulatory Daniel Galoidi Facility: Start: 03-10-2022 Telephone encounter I Pradeep merritt MD Work Phone: Colorectal Surgery Comment on above: Clinical Training Specialist - O ther Start: 03-08-2022 Orders Only I Pradeep Garcia MD Work Phone: Colorectal Surgery Comment on above: 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, unspecified part (Primary Dx) Appointment Start: 03-01-2022 Telephone encounter I Pradeep merritt MD Work Phone: Colorectal Surgery Comment on above: Patient Update Clinical Training Specialist - O ther Start: 02-28-2022 Telephone encounter I Pradeep merritt MD Work Phone: Colorectal Surgery Comment on above: Clinical Training Specialist - O ther Start: 02-26-2022 ambulatory Faye Richey RN NURSE GENERATION MECHANIC HELPER Comment on above: Medication Question Start: 02-24-2022 End: 02-24-2022 Refill I Pradeep Garcia MD Work Phone: Colorectal Surgery Comment on above: Refill Request Pre-op evaluation (P rimary Dx); History of anesthesia complications; Primary hypertension; Gastroesophageal reflux disease without esophagitis; Hypothyroidism, unspecified type; Former smoker; Thoracoabdominal aortic aneurysm (TAAA), unspecified part, unspecified whether ruptured; Anxiety and depression; History of difficult intubation; Chronic renal impairment, stage 2 (mild) Clinical Training Specialist - O ther Returning Patient's Call No Show Start: 02-24-2022 End: 02-24-2022 Preprocedural examination done Pacc Main 2 Work Phone: Pre Anesthesia Start: 01-12-2022 End: 01-12-2022 Patient encounter procedure I Pradeep Garcia MD Work Phone: Colorectal Surgery Comment on above: Benign neoplasm of r ectum (Primary Dx) Start: 01-04-2022 Orders Only I Pradeep Garcia MD Work Phone: Colorectal Surgery Comment on above: 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 (Primary Dx) Start: 12-24-2021 Telephone encounter Taz Faith MD Work Phone: Gastroenterology Comment on above: Results Start: 12-06-2021 End: 12-06-2021 Subsequent hospital visit by physician Kenton Kapadia MD Work Phone: Gastroenterology Comment on above: Diarrhea, unspecifie d type [R19.7] Start: 11-29-2021 Telephone encounter Diane Panchal RNsocial economist Comment on above: Appointment Confirma tion (Pre-procedure instructions) Start: 11-17-2021 End: 11-17-2021 Emergency department patient visit MD Monika Lehman Work Phone: [facility] Start: 11-03-2021 Telephone encounter Taz Faith MD Work Phone: Gastroenterology Comment on above: Orders (Egd/Colonosc opy under MAC) Start: 10-28-2021 End: 10-28-2021 ambulatory Taz Faith MD Work Phone: Gastroenterology Comment on above: Diarrhea, unspecifie d type (Primary Dx); Abdominal pain, unspecified abdominal location; Nausea Start: 10-28-2021 End: 10-28-2021 Telemedicine consultation with patient Taz Faith MD Work Phone: [facility] Start: 10-18-2021 End: 10-18-[address] MONIKA LEHMAN Facility:[facility] Start: 10-07-2021 Rx Renewal Monika Lehman Work Phone: [facility] 250 DO Work Phone: Start: 09-13-2021 End: 09-14-[address] MONIKA LEHMAN Facility:[facility] Start: 07-15-2021 Chart Update Monika Lehman Work Phone: [facility] 3 DO Work Phone: Start: 07-15-2021 End: 07-15-2021 Patient encounter procedure MD Monika Lehman Work Phone: [facility] [place] Start: 07-08-2021 AUDIT Monika Lehman Work Phone: [facility] 3 DO Work Phone: Start: 07-07-2021 End: 07-08-[address] MONIKA LEHMAN Facility: Start: 06-14-2021 End: 06-14-2021 ambulatory Nick Acosta Other [facility] [employer] Other Start: 06-14-2021 Office outpatient vi sit 25 minutes Nick Acosta [facility] Vascular Surgery Start: 06-14-2021 End: 06-14-2021 Patient encounter procedure MD Monika Lehman Work Phone: [facility] Start: 05-03-2021 Office outpatient vi sit 25 minutes Monika Lehman Work Phone: [facility] 250 DO Work Phone: Start: 12-15-2020 End: 12-15-2020 ambulatory Nick Acosta Other [facility] [employer] Other Start: 12-15-2020 Office outpatient vi sit 25 minutes Nick Acosta [facility] Vascular Surgery Echocardiogram normal Monika Franklin da Work Phone: [facility] 250 DO Work Phone: Procedures Date Procedure Procedure Detail Performing Clinician Start: 07-18-2024 ALL BASIC METABOLIC PANEL Generic Brand Marketing Intern al Data Provider Start: 05-28-2024 Myocardial spect multiple studies Sabrina Torres MD Work Phone: Start: 05-28-2024 NM CARDIAC PERF STRESS/PHARM Generic Ext ernal Data Provider Start: 04-10-2024 CT ANGIO ABDOMEN PELVIS Monika Lehman MD Work Phone: Start: 04-10-2024 TBH CREATININE Monika Lehman MD Work Phone: Start: 03-26-2024 C. DIFFICILE PCR Monika Lehman MD Work Phone: Start: 10-25-2022 Colonoscopy flx dx w/collj spec when pfrmd Taz Faith MD Work Phone: Start: 10-25-2022 Colonoscopy Kenton Kapadia MD Work Phone: Start: 03-03-2022 Colonoscopy flx dx w/collj spec when pfrmd [facility] Provider Start: 03-03-2022 Colonoscopy Nurse Cors Work Phone: Start: 12-06-2021 Esophagogastroduodenoscopy transoral diagnostic Taz Faith MD Work Phone: Start: 12-06-2021 Colonoscopy flx dx w/collj spec when pfrmd Taz Faith MD Work Phone: Start: 12-06-2021 Colonoscopy Kenton Kapadia MD Work Phone: Start: 11-17-2021 CT of abdomen and pelvis without contrast MD Monika Lehman Work Phone: Start: 06-14-2021 US scan of aorta MD Monika Lehman Work Phone: Start: 08-14-2018 Echocardiography Appendectomy Monika Lehman Work Phone: Cholecystectomy Monika Lehman Work Phone: Operation on ovary Monika M A lda Work Phone: Operation on uterus Monika [place] Work Phone: Tonsillectomy and adenoidectomy Monika Lehman Work Phone: Total colonoscopy Monika Franklin da Work Phone: Comment on above: Dr Olsen [facility]; Plan of Treatment Date Care Activity Detail Author Start: 10-25-2032 Screening for malignant neoplasm of colon [facility] Start: 09-12-2028 Screening for malignant neoplasm of colon Sigmoidoscopy [facility] Start: 02-24-2025 DIABETES SCREEN DIABETES SCREEN [facility] Start: 02-24-2025 Diabetes Screening Diabetes Screening [facility] Start: 01-13-2025 Screening for malignant neoplasm of breast Mammogram [facility] Comment on above: Postponed from 1989 (Patient Refus ed) Start: 12-18-2024 Pneumococcal Vaccine: 65+ Years (1 of 2 - PCV) Pneumococcal Vaccine: 65+ Years (1 of 2 - PCV) [facility] Comment on above: Postponed from [birth year]/09/1955 (Patient Refus ed) Postponed from 12/08 (Patient Refused) Start: 2024 RSV Vaccine (1 - 1-dose 75+ series) RSV Vaccine (1 - 1-dose 75+ series) [facility] Start: 11-18-2024 End: 11-18-2024 Patient encounter procedure Vascular Surgery Comment on above: US CAROTID ARTERIES TORIN US ABD AORTA COMPLET E VAS 6 mth US f/u Start: 10-29-2024 DIABETES SCREEN DIABETES SCREEN [facility] Start: 08-07-2024 Medicare Annual Wellness Visit Medicare Annual Wellness Visit (AWV) [facility] Start: 07-18-2024 End: 07-18-2025 Basic metabolic 2000 panel - Serum or Plasma Basic Metabolic Panel Lab Routine Essential hypertension Expected: 07/18/2024 (Approximate), Expires: 07/18/2025 [facility] Service Area Work Phone: Comment on above: Expected: 07/18/2024 (Approximate), Expi res: 07/18/2025 Start: 05-28-2024 End: 05-28-2024 Patient encounter procedure Cardiology Comment on above: NM CARDIAC PERF STRESS/PHARM echo Start: 05-09-2024 End: 05-09-2024 Patient encounter procedure 05/09/2024 2:15 PM EDT Office Visit Vascular Surg Dept [address] [facility] [facility] [address] [place], [place] [id number] Chris Torres MD [address] [place] [address] Pararenal abdominal aortic aneurysm (AAA) without rupture (HCC) [I71.41] Vascular Surg Dept Comment on above: Pararenal abdominal aortic aneurysm (AAA ) without rupture (HCC) [I71.41] Start: 04-18-2024 End: 04-18-2024 Patient encounter procedure 04/18/2024 3:00 PM EST Office Visit [facility] [address] [place] [address] Monika Lehman MD [address] [place] [address] Arrived [facility] Comment on above: Arrived Start: 03-05-2024 End: 03-05-2025 Comprehensive metabolic 2000 [...] [address] [place] [address] Monika Lehman MD [address] [place] [address] [facility] Start: 02-14-2024 Advance Directive Discussion Advance Directive Discussion [facility] Start: 02-13-2024 Influenza vaccination Influenza Vaccine (#1) [facility] Comment on above: Postponed from 10/15/2023 (Patient Refus ed) Start: 01-17-2024 End: 01-17-2024 Patient encounter procedure [facility] Comment on above: Arrived Start: 12-27-2023 End: 12-27-2023 Patient encounter procedure 12/27/2023 1:00 PM EST Office Visit [facility] [address] [place] [address] Елена Mg, DIRECTOR OF RESEARCH AND DEVELOPMENT [address] [place] [address] [facility] Start: 12-20-2023 End: 12-19-2024 25-hydroxyvitamin D3 [Mass/volume] in Serum or Plasma Vitamin D 25 hydroxy Lab Routine Vitamin D deficiency Expected: 12/20/2023 (Approximate), Expires: 12/19/[address] [facility] Comment on above: Expected: 12/20/2023 (Approximate), Expi res: 12/19/2024 Start: 12-20-2023 End: 12-19-2024 CBC panel - Blood by Automated count CBC Lab Routine Chronic kidney disease, stage 3b (HCC) ([facility]) Expected: 12/20/2023 (Approximate), Expires: 12/19/[address] [facility] Comment on above: Expected: 12/20/2023 (Approximate), Expi res: 12/19/2024 Start: 12-20-2023 End: 12-19-2024 Hemoglobin A1c/Hemoglobin.total in Blood Hemoglobin A1c Lab Routine Abnormal glucose tolerance test Expected: 12/20/2023 (Approximate), Expires: 12/19/[address] [facility] Comment on above: Expected: 12/20/2023 (Approximate), Expi res: 12/19/2024 Start: 12-20-2023 End: 12-19-2024 Lipid 1996 panel - Serum or Plasma Lipid panel Lab Routine Dyslipidemia ([facility]) Expected: 12/20/2023 (Approximate), Expires: 12/19/[address] [facility] Comment on above: Expected: 12/20/2023 (Approximate), Expi res: 12/19/2024 Start: 12-20-2023 End: 12-19-2024 Thyrotropin [Units/volume] in Serum or Plasma TSH Lab Routine Hypothyroidism, unspecified ([facility]) Expected: 12/20/2023 (Approximate), Expires: 12/19/[address] [facility] Work Phone: Comment on above: Expected: 12/20/2023 (Approximate), Expi res: 12/19/2024 Start: 12-15-2023 Influenza vaccination Influenza Vaccine (#1) [facility] Comment on above: Postponed from 10/14/2022 (Other Patient Reasons) Start: 12-15-2023 Pneumococcal Vaccine: 65+ Years (1 - PCV) Pneumococcal Vaccine: 65+ Years (1 - PCV) [facility] Comment on above: Postponed from 12/09/1956 (Other Patient Reasons) Start: 12-15-2023 Screening for malignant neoplasm of breast Mammogram [facility] Comment on above: Postponed from 1989 (Other Patient Reasons) Start: 10-26-2023 Colonoscopy Colonoscopy [facility] Start: 10-26-2023 Colorectal Cancer Screening Colorectal Cancer Screening [facility] Start: 10-26-2023 Screening for malignant neoplasm of colon [facility] Start: 10-15-2023 COVID-19 Vaccine () COVID-19 Vaccine () [facility] Start: 10-15-2023 Covid-19 Vaccine () Covid-19 Vaccine () [facility] Start: 10-15-2023 Influenza vaccination [facility] Start: 07-21-2023 End: 07-20-2024 Basic metabolic 2000 panel - Serum or Plasma Basic Metabolic Panel Lab Routine Essential hypertension Expected: 07/21/2023 (Approximate), Expires: 07/20/2024 [facility] Service Area Work Phone: Comment on above: Expected: 07/21/2023 (Approximate), Expi res: 07/20/2024 Start: 06-26-2023 End: 06-26-2023 Patient encounter procedure 06/26/2023 11:00 AM EDT Office Visit [facility] [address] [facility] [address] [place] [address] Monika Lehman MD [address] [facility] [address] [place] [address] [facility] Start: 06-15-2023 Medicare Annual Wellness (AWV) Medicare Annual Wellness (AWV) [facility] Start: 05-08-2023 FUV, Provider: Elinor Raman, Status: Pen, Time: 1:00 PM FUV, Provider: Elinor Raman, Status: Pen, Time: 1:00 PM [place] [address] DO Work Phone: Start: 05-08-2023 End: 05-08-2023 Patient encounter procedure 05/08/2023 1:00 PM EDT Office Visit [facility] [address] [place] [address] Elinor Raman MD 254 [facility] [address] [place] [address] [facility] Start: 04-24-2023 End: 04-24-2023 Patient encounter procedure 04/24/2023 1:00 PM EDT Office Visit [facility] [address] [facility] [address] [place] [address] Monika Lehman MD [address] [facility] [address] [place] [address] [facility] Start: 04-11-2023 End: 04-11-2023 Patient encounter procedure 04/11/2023 4:45 PM EST Office Visit [facility] [address] [place] [address] Aman Quiroz MD [address] [facility] [address] [place], [place] [id number] [facility] Start: 03-03-2023 Colonoscopy COLONOSCOPY [facility] Start: 03-03-2023 COLORECTAL CANCER SCREENING COLORECTAL CANCER SCREENING [facility] Start: 02-24-2023 Creatinine measurement Serum Creatinine [facility] Start: 02-24-2023 HEMOGLOBIN/HEMATOCRIT HEMOGLOBIN/HEMATOCRIT [facility] Start: 02-24-2023 SERUM CREATININE SERUM CREATININE [facility] Start: 01-20-2023 End: 01-21-2024 Basic metabolic 2000 panel - Serum or Plasma Basic Metabolic Panel Lab Routine Essential hypertension Expected: 01/20/2023 (Approximate), Expires: 01/21/2024 [facility] Service Area Work Phone: Comment on above: Expected: 01/20/2023 (Approximate), Expi res: 01/21/2024 Start: 01-20-2023 FUV, Provider: Daniel Ma, Status: Román, Time: 11:20 AM FUV, Provider: Daniel Ma, Status: Román, Time: 11:[address] Work Phone: Start: 01-20-2023 End: 01-20-2023 Patient encounter procedure 01/20/2023 11:20 AM EST Office Visit [facility] [address] [facility] [address] [place] [address] Daniel Ma MD [id number] [place] [address] [address] [place] [address] [facility] Start: 12-06-2022 Colonoscopy COLONOSCOPY [facility] Start: 12-06-2022 COLORECTAL CANCER SCREENING COLORECTAL CANCER SCREENING [facility] Start: 11-22-2022 End: 11-23-2023 Comprehensive metabolic 2000 panel - Serum or Plasma Comprehensive metabolic panel Lab Routine Essential hypertension Expected: 11/22/2022 (Approximate), Expires: 11/23/2023 [facility] Work Phone: Comment on above: Expected: 11/22/2022 (Approximate), Expi res: 11/23/2023 Start: 11-22-2022 End: 11-23-2023 Lipid 1996 panel - Serum or Plasma Lipid panel Lab Routine Essential hypertension Expected: 11/22/2022 (Approximate), Expires: 11/23/2023 [facility] Work Phone: Comment on above: Expected: 11/22/2022 (Approximate), Expi res: 11/23/2023 Start: 11-21-2022 End: 11-21-2024 NM Heart Perfusion W stress and W radionuclide IV Nuclear Stress Test Cardiac Nuclear Medicine Routine Essential hypertension 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) Other ill-defined heart diseases Expected: 11/21/2022 (Approximate), Expires: 11/21/2024 [facility] Work Phone: Comment on above: Expected: 11/21/2022 (Approximate), Expi res: 11/21/2024 Start: 11-21-2022 End: 11-21-2024 US Heart Transthoracic Transthoracic Echo (TTE) Complete Echocardiography Routine Essential hypertension 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) PVC (premature ventricular contraction) Expected: 11/21/2022 (Approximate), Expires: 11/21/2024 [facility] Service Area Work Phone: Comment on above: Expected: 11/21/2022 (Approximate), Expi res: 11/21/2024 Start: 10-29-2022 HEMOGLOBIN/HEMATOCRIT HEMOGLOBIN/HEMATOCRIT [facility] Start: 10-29-2022 SERUM CREATININE SERUM CREATININE [facility] Start: 10-14-2022 COVID-19 Vaccine () COVID-19 Vaccine () [facility] Start: 10-14-2022 Influenza vaccination [facility] Start: 09-20-2022 FUV, Provider: Daniel Ma, Status: Pen, Time: 12:50 PM FUV, Provider: Daniel Ma, Status: Pen, Time: 12:50 PM [facility] 3 Work Phone: Start: 05-04-2022 End: 11-04-2022 COLONOSCOPY DIAGNOSTIC COLONOSCOPY DIAGNOSTIC Endoscopy Routine Diarrhea, unspecified type Expected: 05/04/2022, Expires: 11/04/[address] [facility] Work Phone: Comment on above: Expected: 05/04/2022, Expires: 3 Start: 05-04-2022 End: 11-04-2022 EGD DIAGNOSTIC EGD DIAGNOSTIC Endoscopy Routine Abdominal pain, unspecified abdominal location Expected: 05/04/2022, Expires: 11/04/[address] [facility] Work Phone: Comment on above: Expected: 05/04/2022, Expires: 3 Start: 04-25-2022 FUV, Provider: Seema Spencer, Status: Pen, Time: 10:30 AM FUV, Provider: Romero Saldaña,Seema, Status: Pen, Time: 10:30 AM [facility] 250 DO Work Phone: Start: 04-19-2022 FUV, Provider: Deshaun Paniagua, Status: Pen, Time: 10:30 AM FUV, Provider: Deshaun Paniagua, Status: Pen, Time: 10:30 AM [facility] 250 DO Work Phone: Start: 04-03-2022 DIABETES SCREEN DIABETES SCREEN [facility] Start: 02-13-2022 ADVANCE DIRECTIVE DISCUSSION ADVANCE DIRECTIVE DISCUSSION [facility] Start: 01-18-2022 FUV, Provider: Daniel Ma, Status: Pen, Time: 1:00 PM FUV, Provider: Daniel Ma, Status: Román, Time: 1:00 PM [facility] 250 DO Work Phone: Start: 01-04-2022 End: 03-06-2022 Carcinoembryonic Ag [Mass/volume] in Serum or Plasma CEA BLD Lab Routine Neoplasm of uncertain behavior of colon Expected: 01/04/2022, Expires: 03/06/[address] [facility] Work Phone: Comment on above: Expected: 01/04/2022, Expires: 3 Start: 10-28-2021 End: 12-28-2021 CBC panel - Blood by Automated count CBC Lab Routine Abdominal pain, unspecified abdominal location Diarrhea, unspecified type Expected: 10/28/2021, Expires: 12/28/[address] [facility] Work Phone: Comment on above: Expected: 10/28/2021, Expires: 2 Start: 10-28-2021 End: 12-28-2021 CELIAC SCREEN WITH REFLEX CELIAC SCREEN WITH REFLEX Lab Routine Diarrhea, unspecified type Expected: 10/28/2021, Expires: 12/28/[address] [facility] Work Phone: Comment on above: Expected: 10/28/2021, Expires: 2 Start: 10-28-2021 End: 12-28-2021 Comprehensive metabolic 2000 panel - Serum or Plasma COMP METABOLIC PANEL Lab Routine Abdominal pain, unspecified abdominal location Diarrhea, unspecified type Expected: 10/28/2021, Expires: 12/28/[address] [facility] Work Phone: Comment on above: Expected: 10/28/2021, Expires: 2 Start: 10-28-2021 End: 12-28-2021 Thyrotropin [Units/volume] in Serum or Plasma TSH BLD Lab Routine Abdominal pain, unspecified abdominal location Diarrhea, unspecified type Expected: 10/28/2021, Expires: 12/28/[address] [facility] Work Phone: Comment on above: Expected: 10/28/2021, Expires: 2 Start: 10-14-2021 Influenza vaccination INFLUENZA (#1) [facility] Start: 07-20-2021 FUV, Provider: Daniel Ma, Status: Pen, Time: 1:40 PM FUV, Provider: Daniel Ma, Status: Pen, Time: 1:40 PM [facility] 3 DO Work Phone: Start: 05-15-2021 COVID-19 VACCINE (4 - Booster for Pfizer series) COVID-19 VACCINE (4 - Booster for Pfizer series) [facility] Start: 03-11-2021 COVID-19 VACCINE (4 - Booster for Pfizer series) COVID-19 VACCINE (4 - Booster for Pfizer series) [facility] Start: 03-11-2021 COVID-19 VACCINE (4 - Pfizer series) COVID-19 VACCINE (4 - Pfizer series) [facility] Start: 02-13-2021 ADVANCE DIRECTIVE DISCUSSION ADVANCE DIRECTIVE DISCUSSION [facility] Start: 02-13-2021 DEPRESSION ASSESSMENT DEPRESSION ASSESSMENT [facility] Start: 2014 BONE DENSITY BONE DENSITY [facility] Start: 2014 Bone Density Screening Bone Density Screening [facility] Start: 2014 Pneumococcal Vaccine: 65+ (1 - PCV) Pneumococcal Vaccine: 65+ (1 - PCV) [facility] Start: 2014 PNEUMOCOCCAL: 65+ (1 - PCV) PNEUMOCOCCAL: 65+ (1 - PCV) [facility] Start: 2014 Screening for osteoporosis Bone Density Screening [facility] Start: 2009 Hepatitis B Vaccines (1 of 3 - Risk 3-dose series) Hepatitis B Vaccines (1 of 3 - Risk 3-dose series) [facility] Start: 2009 RSV High Risk: (Elderly (60+) or Population) (1 - Risk 60-74 years 1-dose series) RSV High Risk: (Elderly (60+) or Population) (1 - Risk 60-74 years 1-dose series) [facility] Start: 2009 RSV patients and/or patients aged 60+ years (1 - 1-dose 60+ series) RSV patients and/or patients aged 60+ years (1 - 1-dose 60+ series) [facility] Start: 12-09-1999 Pneumococcal Vaccine: 50+ (1 of 1 - PCV) Pneumococcal Vaccine: 50+ (1 of 1 - PCV) [facility] Start: 12-09-1999 SHINGRIX VACCINE (1 of 2) SHINGRIX VACCINE (1 of 2) [facility] Start: 12-09-1999 Zoster Vaccines (1 of 2) Zoster Vaccines (1 of 2) [facility] Start: 1994 COLOGUARD (FIT-DNA) COLOGUARD (FIT-DNA) [facility] Start: 1994 Colonoscopy COLONOSCOPY [facility] Start: 1994 COLORECTAL CANCER SCREENING COLORECTAL CANCER SCREENING [facility] Start: [address] COLONOGRAPHY [facility] Start: 1994 FECAL OCCULT BLOOD FECAL OCCULT BLOOD [facility] Start: 1994 Lipid 1996 panel - Serum or Plasma Lipid Screening [facility] Start: 1994 Lipid panel Lipid Screening [facility] Start: 1994 LIPID SCREEN LIPID SCREEN [facility] Start: 1994 Screening for malignant neoplasm of colon [facility] Start: 1994 SIGMOIDOSCOPY SIGMOIDOSCOPY [facility] Start: 1989 Mammography [facility] Start: 1989 Screening for malignant neoplasm of breast [facility] Start: 12-09-1971 DTaP/Tdap/Td Vaccines (1 - Tdap) DTaP/Tdap/Td Vaccines (1 - Tdap) [facility] Start: 1968 Hepatitis A Vaccines (1 of 2 - Risk 2-dose series) Hepatitis A Vaccines (1 of 2 - Risk 2-dose series) [facility] Start: 1968 Pneumococcal vaccination Pneumococcal Vaccine (1 of 2 - PCV) [facility] Start: 1968 Urine microalbumin profile [facility] Start: 1968 Urine screening for protein CKD: Urine Protein Screening [facility] Start: 12-09-1967 ANNUAL PCP TEAM CHRONIC DISEASE VISIT ANNUAL PCP TEAM CHRONIC DISEASE VISIT [facility] Start: 12-09-1967 BP CONTROLLED (<130/80) BP CONTROLLED (<130/80) [facility] in Start: 12-09-1967 HEPATITIS C SCREENING HEPATITIS C SCREENING [facility] Start: 12-09-1967 Hepatitis C screening Hepatitis C Screening [facility] Start: 1961 Adult depression screening assessment DEPRESSION SCREENING [facility] Start: 12-09-1955 Pneumococcal Vaccine: 65+ Years (1 - PCV) Pneumococcal Vaccine: 65+ Years (1 - PCV) [facility] Start: 12-09-1955 Pneumococcal Vaccine: 65+ Years (1 of 2 - PCV) Pneumococcal Vaccine: 65+ Years (1 of 2 - PCV) [facility] Start: 1949 Lipid panel Lipid Panel [facility] Start: 1949 Screening for malignant neoplasm of colon [facility] Start: 1949 Screening for osteoporosis Bone Density Scan [facility] Start: 1949 Thyroid stimulating hormone measurement TSH Level [facility] Start: 1949 Yearly Adult Physical Yearly Adult Physical [facility] Calprotectin [Mass/m ass] in Stool CALPROTECTIN,FECAL Lab Routine Abdominal pain, unspecified abdominal location Diarrhea, unspecified type Ordered: 10/28/[address] [facility] Work Phone: Comment on above: Ordered: 10/28/2021 Calprotectin [Mass/m ass] in Stool CALPROTECTIN,FECAL Lab Routine Adenomatous rectal polyp Ordered: 04/19/[address] [facility] Work Phone: Comment on above: Ordered: 04/19/2022 Clostridioides diffi cile toxin genes [Presence] in Stool by VERONICA with probe detection C. DIFFICILE PCR Lab Routine Abdominal pain, unspecified abdominal location Diarrhea, unspecified type Ordered: 10/28/[address] [facility] Work Phone: Comment on above: Ordered: 10/28/2021 End: 10-28-2022 COLONOSCOPY DIAGNOSTIC COLONOSCOPY DIAGNOSTIC Endoscopy Routine Abdominal pain, unspecified abdominal location Diarrhea, unspecified type 1 Occurrences starting 10/28/2021 until 10/28/[address] [facility] Work Phone: Comment on above: 1 Occurrences starting 10/28/2021 until 10/28/2022 End: 04-10-2023 COLONOSCOPY DIAGNOSTIC COLONOSCOPY DIAGNOSTIC Endoscopy Routine Adenomatous rectal polyp 1 Occurrences starting 04/10/2022 until 04/10/[address] [facility] Work Phone: Comment on above: 1 Occurrences starting 04/10/2022 until 04/10/2023 End: 05-19-2023 Ct abdomen & pelvis w/contrast material CT ENTEROGRAPHY W IVCON Radiology Routine Adverse effect of treatment, initial encounter Abdominal pain, unspecified abdominal location 1 Occurrences starting 04/19/2022 until 05/19/[address] [facility] Work Phone: Comment on above: 1 Occurrences starting 04/19/2022 until 05/19/2023 End: 05-09-2025 Echocardiography ECHO Cardiology Routine Pararenal abdominal aortic aneurysm (AAA) without rupture Carotid stenosis, asymptomatic, bilateral Encounter for screening for cardiovascular disorders 1 Occurrences starting 05/09/2024 until 05/09/2025 [facility] Comment on above: 1 Occurrences starting 05/09/2024 until 05/09/2025 End: 10-28-2022 EGD DIAGNOSTIC EGD DIAGNOSTIC Endoscopy Routine Abdominal pain, unspecified abdominal location Diarrhea, unspecified type 1 Occurrences starting 10/28/2021 until 10/28/[address] [facility] Work Phone: Comment on above: 1 Occurrences starting 10/28/2021 until 10/28/2022 End: 06-08-2025 NM Heart Perfusion W stress and W radionuclide IV NM CARDIAC PERF STRESS/PHARM Radiology Routine Encounter for screening for cardiovascular disorders Encounter for preprocedural cardiovascular examination 1 Occurrences starting 05/09/2024 until 06/08/2025 [facility] Comment on above: 1 Occurrences starting 05/09/2024 until 06/08/2025 Patient Education Hypokalemia Ab dominal Pain, Adult ED [facility] Work Phone: Patient referral [facility] Work Phone: SURGICAL PATHOLOGY [facility] Work Phone: Comment on above: Release Upon Ordering for 1 Occurrences starting 12/06/2021, 1 completed SURGICAL PATHOLOGY [facility] Work Phone: Comment on above: Release Upon Ordering for 1 Occurrences starting 10/25/2022, 1 completed End: 05-09-2025 US Abdominal Aorta US ABD AORTA COMPLETE [facility]AS LAB Vascular Lab Routine Pararenal abdominal aortic aneurysm (AAA) without rupture Carotid stenosis, asymptomatic, bilateral 1 Occurrences starting 05/09/2024 until 05/09/2025 [facility] Comment on above: 1 Occurrences starting 05/09/2024 until 05/09/2025 End: 05-09-2025 US Carotid arteries - bilateral US CAROTID ARTERIES TORIN [facility] Vascular Lab Routine Pararenal abdominal aortic aneurysm (AAA) without rupture Carotid stenosis, asymptomatic, bilateral 1 Occurrences starting 05/09/2024 until 05/09/[address] [facility] Work Phone: Comment on above: 1 Occurrences starting 05/09/2024 until 05/09/2025 [facility] Immunizations Immunization Date Immunization Notes Care Provider [facility] 01-17-2024 Influenza, High-dose Seasonal, Quadrivalent, Preservative Free Елена Mg DIRECTOR OF RESEARCH AND DEVELOPMENT Work Phone: [facility] 03-23-2022 Fluzone High-Dose Quadrivalent 0.7 ML Intramuscular Suspension Prefilled Syringe Monika Lehman Work Phone: -[facility] 250 DO Work Phone: 03-23-2022 influenza virus vaccine, unspecified formulation Elinor Raman MD Work Phone: [facility] Work Phone: 01-14-2021 Pfizer-BioNTech COVID-19 Vacc 30 MCG/0.3ML Intramuscular Suspension Rugen M Fallon Work Phone: [facility] 250 DO Work Phone: 12-04-2020 influenza, injectabl e, quadrivalent, preservative free Rugen M Fallon Work Phone: [facility] 250 DO Work Phone: 12-04-2020 influenza virus vaccine, unspecified formulation Kenton Kapadia MD Work Phone: [facility] 04-15-2020 Pfizer-BioNTech COVID-19 Vacc 30 MCG/0.3ML Intramuscular Suspension Rugen M Fallon Work Phone: [facility] 250 DO Work Phone: 03-24-2020 Pfizer-BioNTech COVID-19 Vacc 30 MCG/0.3ML Intramuscular Suspension Rugen M Fallon Work Phone: [facility] 250 DO Work Phone: 01-16-2020 Fluad Quadrivalent 0 .5 ML Intramuscular Prefilled Syringe Rugen M [place] Work Phone: [facility] 250 DO Work Phone: 01-16-2020 influenza, injectabl e, quadrivalent, preservative free Aman Quiroz MD Work Phone: [facility] 11-14-2019 influenza virus vaccine, unspecified formulation Rugen M [place] Work Phone: [facility] 250 DO Work Phone: 11-14-2019 influenza, seasonal, injectable Elinor Raman MD Work Phone: [facility] Work Phone: 12-21-2018 Influenza, injectabl e, Madin [place] Canine Kidney, quadrivalent with preservative Aman Quiroz MD Work Phone: [facility] 12-21-2018 influenza, injectabl e, madin loc canine kidney, preservative free Monika Lehman Work Phone: [facility] 250 DO Work Phone: 11-13-2018 influenza virus vaccine, unspecified formulation Monika [place] Fallon Work Phone: [facility] 250 DO Work Phone: Payers Date Payer Category Payer Self-pay [id number] [id number] 2016 [facility] [[email or web address]] [id number] 2016 Medicare supplementa l policy (as second payer) [employer] MEDICARE SELECT SUPPLEMENT [id number] 5 2016 Unknown 2014 Medicare [id number] 1959 Medicare [id number] 1959 Unknown [id number] 1949 Unknown [id number] 2.16.840.1.008239.3.579 .2.593 1949 Unknown [id number] 2.16.840.1.903741.3.579 .2.593 1949 Unknown [id number] 2.16.840.1.466700.3.579 .2.593 1949 Unknown [id number] 2.16.840.1.189101.3.579 .2.593 1949 Unknown [id number] 2.16.840.1.013870.3.579 .2.356 1949 Unknown [id number] 2.16.840.1.193046.3.579 .2.356 1949 Unknown [id number] 2.16.840.1.920388.3.579 .2.356 1949 Unknown [id number] 2.16.840.1.306980.3.579 .2.356 1949 Unknown [id number] 2.16.840.1.410527.3.579 .2.1259 1949 Unknown [id number] 2.16.840.1.812442.3.579 .2.1259 1949 Unknown [id number] 2.16.840.1.069047.3.579 .2.1259 1949 Unknown [id number] 2.16.840.1.642076.3.579 .2.1259 1949 Unknown [id number] 2.16.840.1.028951.3.579 .2.1259 1949 Unknown [id number] 2.16.840.1.444053.3.579 .2.1259 1949 Unknown [id number] 2.16.840.1.182480.3.579 .2.1259 1949 Unknown [id number] 2.16.840.1.286147.3.579 .2.1259 1949 Unknown [id number] 2.16.840.1.626829.3.579 .2.1259 1949 Unknown [id number] 2.16.840.1.252485.3.579 .2.1259 1949 Unknown [id number] 2.16.840.1.731088.3.579 .2.1259 1949 Unknown [id number] 2.16.840.1.186736.3.579 .2.1244 1949 Unknown [id number] 2.16.840.1.624286.3.579 .2.1244 Unknown [id number] 2.16.840.1.421703.3.579 .2.531 Social History Date Type Detail Facility Start: 02-24-2022 End: 09-19-2022 Caffeine use Caffeine use Pager [facility] [employer] Other Comment on above: 1/2 CAN OF POP DAILY 2-3 CUPS OF HOT CHOCOLATE DAILY; Start: 1950 Sex Assigned At Female [facility] Start: 02-24-2022 End: 09-19-2022 Sex Assigned At Pager [facility] [employer] Other Tobacco smoking stat [facility] Tobacco smoking consumption unknown [facility] Start: 1950 Sex Assigned At Not on file [facility] Start: 10-18-2021 End: 07-18-2024 Exposure to SARS-CoV-2 (event) Not sure [facility] Start: 11-17-2021 [facility] Start: 12-06-2021 End: 01-17-2024 Tobacco smoking status NHIS Ex-smoker [facility] End: 03-20-2012 History of tobacco use Current smoker [facility] End: 03-20-2012 History of tobacco use Cigarette Smoker [facility] Start: 12-06-2021 End: 01-17-2024 Tobacco use and exposure Smokeless tobacco non-user [facility] Start: 12-06-2021 End: 04-18-2024 Alcohol intake Lifetime non-drinker (finding) [facility] National Score (1-100), lower number is lower risk 73 [facility] Within the last year , have you [...] to buy more. Never true [facility] How often do you nee d to have someone help you when you read instructions, pamphlets, or other written material from your doctor or pharmacy [SILS] Sometimes [facility] Goals Date Patient Goal Desired Activity /State Personal health goal Clinical Notes 12-15-2020 to 07-18-2024 Daniel Ma MD - 07/18/2024 12:00 PM EDTTelephone Encounter - German Ordoñez RN - 05/29/2024 12:17 PM EDTTelephone Encounter - German Ordoñez RN - 05/29/2024 12:17 PM EDTPatient Instructions Note Date & Type Note Facility 07-18-2024 History of Present illness Narrative Dianelys Womack 73 y.o. @@ [facility]/Room: [id number]/Room/bed info not found Subjective: The patient is [...] in about one year for follow-up. Daniel Ma MD Senior Attending Physician Director of Onco-Nephrology Program Division of Nephrology & Hypertension [facility] [1] Current Outpatient Medications Medication Sig Dispense Refill ALPRAZolam XR (Xanax XR) 1 mg 24 hr tablet Take 1 tablet (1 mg) by mouth once daily. amLODIPine (Norvasc) 10 mg tablet TAKE 1 TABLET DAILY (Patient taking differently: Take 0.5 tablets (5 mg) by mouth once daily.) 90 tablet [...] for this visit. documented in this encounter [facility] Work Phone: 05-29-2024 Telephone encounter Note RN called patient and advised that her Nuclear stress test done yesterday was read as normal: no ischemia, low risk scan , good EF. RN will update Dr. Torres's office as well. NO cardiac concerns voiced during our conversation. Appreciative of call. German Ordoñez RN [facility] 05-29-2024 Miscellaneous Notes RN called patient and advised that her Nuclear stress test done yesterday was read as normal: no ischemia, low risk scan , good EF. RN will update Dr. Torres's office as well. NO cardiac concerns voiced during our conversation. Appreciative of call. German Ordoñze RN documented in this encounter [facility] 05-28-2024 Note HNO ID: [id number] Author: HOLLY MG RT(R) Service: ? Author Type: Technology Assistant Type: Progress Notes Filed: 05/28/2024 15:49 Note Text: RADIOLOGY SERVICE PROGRESS NOTE SERVICE DATE: 05/28/2024 SERVICE TIME: 3:47 PM PATIENT IDENTITY VERIFICATION COMPLETED USING TWO (2) STANDARD IDENTIFIERS: Name and Date of confirmed by patient verbally FALL SCREENING: Has the patient had 2 falls in the last year or 1 fall with injury or currently using an Ambulatory Assistive Device (Walker, Cane, Wheelchair, Crutches, etc.)? Yes, Patient High Risk for Falls What interventions were put in place to prevent falls during this visit? Offered Assistance with Transfers/Clothing and Increased Observations by Caregivers PATIENT GENDER DATA: .female : No ALLERGIES: Reviewed and unchanged MEDICATIONS REVIEWED: Yes PATIENT RELEVANT IMPLANT DATA REVIEWED: Not Applicable PATIENT PRESENTS WITH AN IMPLANTABLE OR ATTACHED STRATEGIES ANALYST: No CREATININE: Creatinine Date Value Ref Range Status 02/24/2022 0.82 0.58 - 0.96 mg/dL Final 10/29/2021 1.17 (H) 0.58 - 0.96 mg/dL Final Estimated Glomerular Filtration Rate Date Value Ref Range Status 02/24/2022 76 >=60 mL/min/1.73m? Final Comment: Estimated Glomerular Filtration Rate (eGFR) is calculated using the 2020 CKD-EPI creatinine equation. This equation utilizes serum creatinine, sex, and age as parameters. The creatinine assay has traceable calibration to isotope dilution-mass spectrometry. Refer to KDIGO guidelines for clinical interpretation. In patients with unstable renal function, e.g. those with acute kidney injury, the eGFR may not accurately reflect actual GFR. P.O.C.T. RESULTS: N/A May 28, [address] PERFORMED: No IV SITE: Ambulatory: A peripheral IV was started in the Right antecubital site with a Angio cath: 24 gauge. POST EXAM PIV STATUS: Not applicable PROCEDURE TYPE: OK Stress: 12.8 mCi Cr86y-Dphgnyl was administered IV for Rest Imaging at 1222 by Holly HOLDEN-N. 30.6 mCi Pi01y-Fkgmuac was administered IV for Stress Imaging at 1400 by Holly ARNOLDN. ADMINISTRATION TIME: PATIENT DISCHARGED TO: Ambulatory patient, left [place] department area. Is this a therapy: No A Diagnostic radioactive procedure has taken place, with no further precautions necessary other than routine body substance precautions. More information regarding radiation safety can be found using this link: [email or web address] [email or web address] 20Diagnostic%20Nuclear%20Medicine %20Procedures.pdf SIGNATURE: RT Robbie(R) PATIENT NAME: Dianelys Womack DATE: May 28, 2024 TIME: 3:47 PM PAGER/CONTACT #: [facility] 05-28-2024 History of Present illness Narrative RADIOLOGY SERVICE PROGRESS NOTE SERVICE DATE: 05/28/2024 SERVICE TIME: 3:47 PM PATIENT IDENTITY VERIFICATION COMPLETED USING TWO (2) STANDARD IDENTIFIERS: Name and Date of confirmed by patient verbally FALL SCREENING: Has the patient had 2 falls in the last year or 1 fall with injury or currently using an Ambulatory Assistive Device (Walker, Cane, Wheelchair, Crutches, etc.)? Yes, Patient High Risk for Falls What interventions were put in place to prevent falls during this visit? Offered Assistance with Transfers/Clothing and Increased Observations by Caregivers PATIENT GENDER DATA: .female : No ALLERGIES: Reviewed and unchanged MEDICATIONS REVIEWED: Yes PATIENT RELEVANT IMPLANT DATA REVIEWED: Not Applicable PATIENT PRESENTS WITH AN IMPLANTABLE OR ATTACHED STRATEGIES ANALYST: No CREATININE: Creatinine Date Value Ref Range Status 02/24/2022 0.82 0.58 - 0.96 mg/dL Final 10/29/2021 1.17 (H) 0.58 - 0.96 mg/dL Final Estimated Glomerular Filtration Rate Date Value Ref Range Status 02/24/2022 76 >=60 mL/min/1.73m Final Comment: Estimated Glomerular Filtration Rate (eGFR) is calculated using the 2020 CKD-EPI creatinine equation. This equation utilizes serum creatinine, sex, and age as parameters. The creatinine assay has traceable calibration to isotope dilution-mass spectrometry. Refer to KDIGO guidelines for clinical interpretation. In patients with unstable renal function, e.g. those with acute kidney injury, the eGFR may not accurately reflect actual GFR. P.O.C.T. RESULTS: N/A May 28, [address] PERFORMED: No IV SITE: Ambulatory: A peripheral IV was started in the Right antecubital site with a Angio cath: 24 gauge. POST EXAM PIV STATUS: Not applicable PROCEDURE TYPE: NM Stress: 12.8 mCi [id number]-Vpgcdyf was administered IV for Rest Imaging at 1222 by Holly HOLDEN-N. 30.6 mCi Hz80j-Cqcosyx was administered IV for Stress Imaging at 1400 by Holly HOLDEN-N. ADMINISTRATION TIME: PATIENT DISCHARGED TO: Ambulatory patient, left [place] department area. Is this a therapy: No A Diagnostic radioactive procedure has taken place, with no further precautions necessary other than routine body substance precautions. More information regarding radiation safety can be found using this link: [email or web address] [email or web address]-%20Diagnostic%20Nucl ear%20Medicine%20Procedures.pdf SIGNATURE: RT Robbie(R) PATIENT NAME: Dianelys Womack DATE: May 28, 2024 TIME: 3:47 PM PAGER/CONTACT #: RADIOLOGY SERVICE PROGRESS NOTE SERVICE DATE: 05/28/2024 SERVICE TIME: 3:18 PM PATIENT IDENTITY VERIFICATION COMPLETED USING TWO (2) STANDARD IDENTIFIERS: Name and Date of confirmed by patient verbally PATIENT GENDER DATA: female : No ALLERGIES: Reviewed and unchanged MEDICATIONS REVIEWED BY: German Ordoñez RN PROCEDURE TYPE: NM STRESS: 0.4 mg of Lexiscan was administered IV at 1400 by German Ordoñez RN . Reversal agent used: Aminophylline. Expiration date: Lot#: [id number] IV SITE: Ambulatory: A peripheral IV was started in the Right antecubital site with a Angio cath: 24 gauge. POST EXAM PIV STATUS: Discontinued PATIENT DISCHARGED TO: Ambulatory patient, left [place] department area. A Diagnostic radioactive procedure has taken place, with no further precautions necessary other than routine body substance precautions. More information regarding radiation safety can be found using this link: [email or web address] [email or web address]-%20Diagnostic%20Nucl ear%20Medicine%20Procedures.pdf SIGNATURE: German Ordoñez RN PATIENT NAME: Dianelys Womack DATE: May 28, 2024 TIME: 3:18 PM PAGER/CONTACT #: documented in this encounter [facility] 05-28-2024 Note HNO ID: [id number] Author: GERMAN ORDOÑEZ RN Service: ? Author Type: Registered Nurse Type: Progress Notes Filed: 05/28/2024 15:19 Note Text: RADIOLOGY SERVICE PROGRESS NOTE SERVICE DATE: 05/28/2024 SERVICE TIME: 3:18 PM PATIENT IDENTITY VERIFICATION COMPLETED USING TWO (2) STANDARD IDENTIFIERS: Name and Date of confirmed by patient verbally PATIENT GENDER DATA: female : No ALLERGIES: Reviewed and unchanged MEDICATIONS REVIEWED BY: German Ordoñez RN PROCEDURE TYPE: NM STRESS: 0.4 mg of Lexiscan was administered IV at 1400 by German Ordoñez RN . Reversal agent used: Aminophylline. Expiration date: Lot#: [id number] IV SITE: Ambulatory: A peripheral IV was started in the Right antecubital site with a Angio cath: 24 gauge. POST EXAM PIV STATUS: Discontinued PATIENT DISCHARGED TO: Ambulatory patient, left [place] department area. A Diagnostic radioactive procedure has taken place, with no further precautions necessary other than routine body substance precautions. More information regarding radiation safety can be found using this link: [email or web address] [email or web address]-% 20Diagnostic%20Nuclear%20Medicine %20Procedures.pdf SIGNATURE: German Ordoñez RN PATIENT NAME: Dianelys Womack DATE: May 28, 2024 TIME: 3:18 PM PAGER/CONTACT #: [facility] 05-27-2024 Telephone encounter Note RN called patient to discuss restrictions for tomorrow's Nuclear stress test. Instructed on NO caffeine for 24 hours prior. This includes no qvxnyw-uarq-rkehm-chocolate and decaf products. OK to eat breakfast and take am medications. Patient will also have an echo tomorrow as well for pre-op clearance. Verbalized an understanding, appreciative of call. Support provided. German Ordoñez RN [facility] 05-27-2024 Miscellaneous Notes RN called patient to discuss restrictions for tomorrow's Nuclear stress test. Instructed on NO caffeine for 24 hours prior. This includes no rdlvkl-ujfm-xvpsk-chocolate and decaf products. OK to eat breakfast and take am medications. Patient will also have an echo tomorrow as well for pre-op clearance. Verbalized an understanding, appreciative of call. Support provided. German Ordoñez RN documented in this encounter [facility] 05-09-2024 Note HNO ID: [id number] Author: CHRIS TORRES MD Service: ? Author Type: Physician Type: Progress Notes Filed: 05/09/2024 18:00 Note Text: VASCULAR SURGERY INITIAL CONSULT Heart , Vascular and Thoracic [place] DEPARTMENT OF VASCULAR SURGERY OUTPATIENT VISIT DATE 05/09/2024 OUTPATIENT VISIT TYPE CONSULTATION SERVICE DATE: 05/09/2024 PRIMARY CARE PHYSICIAN: Monika Lehman MD, MD REFERRING PROVIDER: Erinn Lawson [id number] [address] Consult requested for an opinion regarding the evaluation and treatment of the above. My final impression and recommendations will be communicated back to the requesting physician by way of the shared medical record or letter via [place] mail. NAME: Dianelys Womack : 1950 CHIEF COMPLAINT: AAA HISTORY OF PRESENT ILLNESS: Consultation at the request of Dr. Erinn Lawson for an opinion regarding . A copy of my final recommendations will be communicated back to the requesting physician by way of shared Medical record or letter via [place] mail. Ms. 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 I personally obtained the history of present illness. Chris Torres MD STUDIES: CTA A/P 04/10/2024 at [facility] There is atherosclerotic plaque along the aorta, iliac and some of the visceral arteries. There is redemonstration of an infrarenal aortic aneurysm The maximum diameter is approximately 4.6 cm on the reconstructed images. There is mural thrombus. 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 This is also a few millimeters larger than the comparison. There is no periaortic fluid. The visceral arteries show normal opacification. PAST MEDICAL HISTORY Diagnosis Date Anxiety and depression 02/24/2022 Arrhythmia heart arrhythima Arthritis CKD (chronic kidney disease) stage 3, GFR 30-59 ml/min (HCC) Difficult airway for intubation Difficult intubation 02/24/2022 Fatty liver Former smoker 02/24/2022 Hard to intubate History of difficult intubation 02/24/2022 Hypertension Neuropathy Stroke (HCC) 2004 Thoracoabdominal aneurysm (HCC) Thyroid disease PAST SURGICAL HISTORY Procedure Laterality Date ABDOMINAL SURGERY HX REMOVAL GALLBLADDER VAGINAL HYSTERECTOMY SOCIAL HISTORY: Social History Tobacco Use Smoking status: Former Current packs/day: 0.00 Types: Cigarettes Quit date: 2011 Years since quittin.2 Smokeless tobacco: Never Vaping Use Vaping status: Never Used Substance Use Topics Alcohol use: Never Drug use: Never FAMILY HISTORY Problem Relation Age of Onset other (brain issues? deteriation of cerabellum) Mother MEDICATIONS: neomycin 500 mg tablet Take 2 tablets by mouth at 9pm and take 2 tablets by mouth at 11pm the night before surgery. OMEPRAZOLE ORAL Take 40 mg by mouth [...] needed. (Patient not taking: No sig reported) ALLERGIES: ALLERGIES Allergen Reactions Ciprofloxacin Unknown Flagyl [Metronidazo* Unknown Levofloxacin Unknown Penicillins Unknown, Other: See Comments Seasonal Allergies Unknown Soy Unknown Vancomycin Unknown REVIEW OF SYSTEM: Constitutional: No weight loss, malaise or fevers. HEENT: Negative for frequent or significant headaches Respiratory: Negative for cough, wheezing, or shortness of breath Cardiovascular: TIA 1994 Gatrointestinal: Negative for abdominal discomfort, blood in stools or black stools or change in bowel habits Genitourinary: No history of dysuria, frequency, or incontinence Musculoskeletal: Negative for joint pain or swelling, back pain or muscle pain Endocrine: Negative for cold or heat intolerance, polyuria, polydipsia and goiter Hematology/Lymphatic: Negative for prolonged bleeding, bruising easily or swollen nodes Neurologic: No history or headaches, syncope, paralysis, seizures or tremors Integumentary: Negative for lesions, rash, and itching. PHYSICAL EXAM: VITALS: There were no vitals taken for this visit. General: Alert and oriented Integumentary: Normal color, no rash, no lesions. Lungs: Normal breath sounds, no wheezes or crackles. Abdomen: Soft, non-tender, no rigidity. Extremities: No deformity, no edema or tenderness, no joint swelling or clubbing. Ne (more content not included)... [facility] 05-09-2024 History of Present illness Narrative Images from the original note were not included. VASCULAR SURGERY INITIAL CONSULT Heart , Vascular and Thoracic [place] DEPARTMENT OF VASCULAR SURGERY OUTPATIENT VISIT DATE 05/09/2024 OUTPATIENT VISIT TYPE CONSULTATION SERVICE DATE: 05/09/2024 PRIMARY CARE PHYSICIAN: Monika Lehman MD, MD REFERRING PROVIDER: Erinn Lawson [address] [address] Consult requested for an opinion regarding the evaluation and treatment of the above. My final impression and recommendations will be communicated back to the requesting physician by way of the shared medical record or letter via [place] mail. NAME: Dianelys Womack : 1950 CHIEF COMPLAINT: AAA HISTORY OF PRESENT ILLNESS: Consultation at the request of Dr. Erinn Lawson for an opinion regarding . A copy of my final recommendations will be communicated back to the requesting physician by way of shared Medical record or letter via [place] mail. Ms. 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 I personally obtained the history of present illness. Chris Torres MD STUDIES: CTA A/P 04/10/2024 at [facility] There is atherosclerotic plaque along the aorta, iliac and some of the visceral arteries. There is redemonstration of an infrarenal aortic aneurysm The maximum diameter is approximately 4.6 cm on the reconstructed images. There is mural thrombus. 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 This is also a few millimeters larger than the comparison. There is no periaortic fluid. The visceral arteries show normal opacification. PAST MEDICAL HISTORY Diagnosis Date Anxiety and depression 02/24/2022 Arrhythmia heart arrhythima Arthritis CKD (chronic kidney disease) stage 3, GFR 30-59 ml/min (HCC) Difficult airway for intubation Difficult intubation 02/24/2022 Fatty liver Former smoker 02/24/2022 Hard to intubate History of difficult intubation 02/24/2022 Hypertension Neuropathy Stroke (HCC) 2004 Thoracoabdominal aneurysm (HCC) Thyroid disease PAST SURGICAL HISTORY Procedure Laterality Date ABDOMINAL SURGERY HX REMOVAL GALLBLADDER VAGINAL HYSTERECTOMY SOCIAL HISTORY: Social History Tobacco Use Smoking status: Former Current packs/day: 0.00 Types: Cigarettes Quit date: 2011 Years since quittin.2 Smokeless tobacco: Never Vaping Use Vaping status: Never Used Substance Use Topics Alcohol use: Never Drug use: Never FAMILY HISTORY Problem Relation Age of Onset other (brain issues? deteriation of cerabellum) Mother MEDICATIONS: neomycin 500 mg tablet Take 2 tablets by mouth at 9pm and take 2 tablets by mouth at 11pm the night before surgery. OMEPRAZOLE ORAL Take 40 mg by mouth [...] needed. (Patient not taking: No sig reported) ALLERGIES: ALLERGIES Allergen Reactions Ciprofloxacin Unknown Flagyl [Metronidazo* Unknown Levofloxacin Unknown Penicillins Unknown, Other: See Comments Seasonal Allergies Unknown Soy Unknown Vancomycin Unknown REVIEW OF SYSTEM: Constitutional: No weight loss, malaise or fevers. HEENT: Negative for frequent or significant headaches Respiratory: Negative for cough, wheezing, or shortness of breath Cardiovascular: 1994 Gatrointestinal: Negative for abdominal discomfort, blood in stools or black stools or change in bowel habits Genitourinary: No history of dysuria, frequency, or incontinence Musculoskeletal: Negative for joint pain or swelling, back pain or muscle pain Endocrine: Negative for cold or heat intolerance, polyuria, polydipsia and goiter Hematology/Lymphatic: Negative for prolonged bleeding, bruising easily or swollen nodes Neurologic: No history or headaches, syncope, paralysis, seizures or tremors Integumentary: Negative for lesions, rash, and itching. PHYSICAL EXAM: VITALS: There were no vitals taken for this visit. General: Alert and oriented Integumentary: Normal color, no rash, no lesions. Lungs: Normal breath sounds, no wheezes or crackles. Abdomen: Soft, non-tender, no rigidity. Extremities: No deformity, no edema or tenderness, no joint swelling or clubbing. Neurological: Normal cognition and motor skills. Vascular: Femoral Pulse Right: Normal - Left: Normal Popliteal Pulse Right: Normal - Left: Normal Posterior Tibial Right: Normal - Left: Normal Dorsalis Pedal Right: Normal - Left: Normal Most recent imaging IMPRESSION: Ms. 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 The infrarenal aneurysm has grown approximately 7 mm over the last year. But I am not able to see her previous CT since it was done at an outside hospital. Estr[facility] from the report. She is asymptomatic.. PLAN and RECOMMENDATIONS: Carotid ultrasound and aortic ultrasound in 6 months Will also get an echo and stress test Plan discussed with her grandson in detail and patient Chris Torres documented in this encounter [facility] 05-08-2024 Telephone encounter Note please call daughter to set up vas surg appointment charles, orders entered Erinn Lawson MD [facility] 05-08-2024 Miscellaneous Notes please call daughter to set up vas surg appointment charles, orders entered Erinn Lawson MD documented in this encounter [facility] 04-17-2024 Telephone encounter Note OARRS reviewed, Rx sent into patient's pharmacy. [facility] 04-17-2024 Miscellaneous Notes OARRS reviewed, Rx sent into patient's pharmacy. documented in this encounter [facility] 04-03-2024 History of Present illness Narrative Images from the original note were not included. Subjective Patient ID: Dianelys Womack is a 73 y.o. female who presents for nausea. Dianelys presents today for nausea, and loose stools.Patient states this all started a few weeks ago with sinus congestion and then went to the loose stools and nausea. She said she doesn't do well with taking antibiotics. Current Outpatient Medications on File Prior to [...] for allergies. ergocalciferol (Vitamin D2) 1.25 MG (54392 UT) capsule Take 1 capsule (1.25 mg) [...] of Systems Constitutional: Negative. HENT: Positive for congestion and postnasal drip. Eyes: Negative. Respiratory: Positive for cough and wheezing. Cardiovascular: Negative. Gastrointestinal: Positive for diarrhea. Genitourinary: Negative. Musculoskeletal: Negative. Skin: Negative. Neurological: Negative. Psychiatric/Behavioral: Negative. Hematological: Negative. Endocrine: Negative. Allergic/Immunologic: Negative. Objective Physical Exam Vitals reviewed. Constitutional: Appearance: She is ill-appearing. HENT: Head: Normocephalic and atraumatic. Right Ear: External ear normal. Ears: Comments: Tm's are dull bilaterally, no bulge or retraction noted, canals with mild redness bilaterally Nose: Congestion present. Mouth/Throat: Mouth: Mucous membranes are moist. Pharynx: Posterior oropharyngeal erythema present. No oropharyngeal exudate. Eyes: Conjunctiva/sclera: Conjunctivae normal. Cardiovascular: Rate and Rhythm: Normal rate and regular rhythm. Heart sounds: Normal heart sounds. Pulmonary: Breath sounds: Wheezing and rhonchi present. Abdominal: General: There is no distension. Palpations: Abdomen is soft. Tenderness: There is no abdominal tenderness. There is no guarding. Musculoskeletal: General: Normal range of motion. Cervical back: Normal range of motion and neck supple. Skin: General: Skin is warm and dry. Neurological: General: No focal deficit present. Mental Status: She is alert and oriented to person, place, and time. Psychiatric: Mood and Affect: Mood normal. Behavior: Behavior normal. Thought Content: Thought content normal. Judgment: Judgment normal. Assessment/Plan 1. Acute bronchitis, unspecified organism Discussed diagnosis, use of prednisone and its most common side effects. She is advised to continue her albuterol as ordered. Follow up if continuing symptoms. - predniSONE (Deltasone) 20 MG tablet; Take 2 tablets (40 mg) by mouth Daily for 5 days Dispense: 10 tablet; Refill: 0 2. Loose stools (Primary) She states she has been having loose stools, that she has been having these on and off for years. She states that imodium has not been helping. Lomotil is ordered for her today. Follow up as needed.d - diphenoxylate-atropine (Lomotil) 2.5-0.025 MG tablet; Take 1 tablet by mouth 4 (four) times a day as needed for diarrhea for up to 5 days Dispense: 20 tablet; Refill: 0 3. Irritable bowel syndrome with diarrhea No follow-ups on file. documented in this encounter [facility] 04-03-2024 Instructions лЕена Mg NP - 04/03/2024 4:00 PM EST Prednisone is added today. Lomotil is added today. documented in this encounter [facility] 03-21-2024 History of Present illness Narrative Associated [...] for allergies. ergocalciferol (Vitamin D2) 1.25 MG (27460 UT) capsule Take 1 capsule (1.25 mg) [...] follow-ups on file. documented in this encounter [facility] 03-05-2024 History of Present illness Narrative Images [...] for allergies. ergocalciferol (Vitamin D2) 1.25 MG (31450 UT) capsule Take 1 capsule (1.25 mg) [...] follow-ups on file. documented in this encounter [facility] 02-20-2024 History of Present illness Narrative Associated [...] for allergies. ergocalciferol (Vitamin D2) 1.25 MG (80899 UT) capsule Take 1 capsule (1.25 mg) [...] Hypokalemia Proctitis Stroke (CMS/HCC) 2004 Thyroid disease ([facility]) Past Surgical History: Procedure Laterality Date APPENDECTOMY 1968 CATARACT EXTRACTION, BILATERAL CHOLECYSTECTOMY COLONOSCOPY 05/2015 COLONOSCOPY W/ POLYPECTOMY 03/07/2022 COLONOSCOPY W/ POLYPECTOMY 10/25/2022 CT ANGIOGRAM CHEST 07/10/2017 CT ANGIOGRAM CHEST [facility] ESOPHAGOSCOPY / EGD 12/06/2021 [...] weeks (around 03/05/2024). documented in this encounter [facility] 01-17-2024 History of Present illness Narrative Images [...] for allergies. ergocalciferol (Vitamin D2) 1.25 MG (57986 UT) capsule Take 1 capsule (1.25 mg) [...] for allergies. ergocalciferol (Vitamin D2) 1.25 MG (35658 UT) capsule Take 1 capsule (1.25 mg) [...] Yes Cognitive Screening Three Word Registration: Banana, [place], Chair Clock Drawing: Normal Clock - 2 Three Word Recall: 1/3 words correct - 1 Pain Assessment Pain Score: 5 - Moderate pain Advance Care Planning Do you have a living will?: No Do you have a medical power of systems consultant?: No Objective : BP 122/80 Pulse 69 [...] today. - Influenza, high-dose seasonal, quadrivalent, PF (MUT590) (Fluzone High Dose [place] 0.7mL dose) 3. Neurogenic pain Gabapentin continues. She is stable at this time. 4. Central vestibular vertigo Stable. 5. White matter disease Stable. 6. Vascular dementia without behavioral disturbance, psychotic disturbance, mood disturbance, or anxiety, unspecified dementia severity ([facility]) Clock test and 3 word recall completed today. See results. 7. Cerebrovascular accident (CVA) due to thrombosis of precerebral artery ([facility] [facility] [place]) Stable. 8. Chronic pain syndrome Gabapentin and tramadol continue. She is stable at this time. 9. Other emphysema ([facility] [place]) ipratropium (Atrovent) 0.06 % nasal spray continues as ordered, stable. 10. Carotid stenosis, bilateral Stable. 11. Generalized atherosclerosis Stable. 12. Benign essential hypertension ([facility] [place]) Lisinopril and amlodipine continue. Bp stable. No [...] 17. Chronic kidney disease, stage 3a (HCC) ([facility] [place]) 01/10/24 WHITE BLOOD CELL COUNT 3.8 - [...] 29 U/L 11 12 [facility] EGFR-NON AF SERBIAN 43 Low 18. B12 deficiency folic acid [...] LDL-C. Rico SS et al. ALEXUS. 2013;310(19): 2917-4955 (http://education.Previstar/faq/UAN153) CHOL/HDLC RATIO <5.0 (calc) 3.1 2.8 NON [...] Encounter Procedures Influenza, high-dose seasonal, quadrivalent, PF (XWD189) (Fluzone High Dose Quad North 0.7mL dose) Electronically signed by Елена Mg NP on January 17, 2024 documented in this encounter [facility] 01-17-2024 Instructions Елена Mg NP - 01/17/2024 2:30 PM EST MAWV completed today. New orders for prednisone and tizanidine given today. documented in this encounter [facility] 01-13-2024 Telephone encounter Note Requested Prescriptions Signed Prescriptions Disp Refills ergocalciferol (Vitamin D2) 1.25 MG (06446 UT) capsule 4 capsule 11 Sig: Take 1 capsule (1.25 mg) by mouth 1 (one) time per week Authorizing Provider: ЕЛЕНА MG [facility] 01-13-2024 Miscellaneous Notes Requested Prescriptions Signed Prescriptions Disp Refills ergocalciferol (Vitamin D2) 1.25 MG (08255 UT) capsule 4 capsule 11 Sig: Take 1 capsule (1.25 mg) by mouth 1 (one) time per week Authorizing Provider: ЕЛЕНА MG documented in this encounter [facility] 12-20-2023 History of Present illness Narrative Images [...] 29 U/L 11 12 [facility] EGFR-NON AF SERBIAN 43 Low 2. Adjustment disorder with anxiety [...] follow-ups on file. documented in this encounter [facility] 12-20-2023 Instructions Елена Mg NP - 12/20/2023 1:00 PM EST Med refills Labs ordered Debrox drops, follow up for ear flush documented in this encounter [facility] 07-21-2023 History of Present illness Narrative Dianelys Womack 72 y.o. @WT@ [facility]/Room: [id number]/Room/bed info not found Subjective: The patient is [...] Onco-Nephrology Program Division of Nephrology & Hypertension [facility] documented in this encounter [facility] Work Phone: 03-24-2023 History of Present illness [...] strength, ergonomic, and postural program to assist long term care pharmacist management (10 Min); Bike (PRN) Therapeutic Activity: [...] Physician Signature: Date: documented in this encounter [facility] 03-24-2023 History of Present illness Narrative Images from the original note were not included. [facility] Patient: Dianelys Womack [address], [address] , Sex: 1950, Female [place] [address] Height: 160 cm Ref Phys: Fallon Quiroz [...] Doub=doublet; Fasc=fasciculation; FFE=full for effort; Fib=fibrillation; Myokym=myokymia; [place]=myotonic potential; N,0=normal; NR=no response; Polyph=polyphasia; Pos=positive [sharp] wave; RFU=rapidly firing units; Serr=serrated potential (2<phases<5); W&W=waxing and waning pattern INTERPRETATION: This study reveals ENMG evidence of a chronic, neuropathic, primarily axonal, sensory > motor, process affecting all lower extremity nerves tested. Needle examination demonstrates a fqixlo-gc-wejtygzc gradient that is most suggestive of peripheral [...] the present study. Aman Quiroz M.D. Diplomate, [place] Board of Psychiatry and Neurology (neurology, epilepsy, sleep medicine) Diplomate, [place] Board of Clinical Neurophysiology Diplomate, [place] Board of Preventive Medicine (clinical informatics) . documented in this encounter [facility] 11-22-2022 Evaluation + Plan note Associated Problem(s): Former smoker Encouraged patient to continue to abstain from cigarettes. [facility] Work Phone: 11-22-2022 Miscellaneous Notes Associated [...] the office environment. documented in this encounter [facility] Work Phone: 11-22-2022 Evaluation + Plan note Associated Problem(s): Class 1 obesity with body mass index (BMI) of 32.0 to 32.9 in adult Her BMI puts her in the overweight category, she remains fairly active, actually her weight is not too bad for her age, I reinforced the need for heart healthy lifestyle. [facility] Work Phone: 11-22-2022 Evaluation + Plan [...] than 2 Follow-up to discuss test results. [facility] Work Phone: 11-22-2022 Evaluation + Plan [...] of blood pressures outside the office environment. [facility] Work Phone: 11-21-2022 History of Present [...] which are followed by vascular surgery in [place]. She says that if she does not [...] following reasons: The patient has a prior [place] or stroke diagnosis Assessment/Plan: Essential hypertension Patient [...] Elinor Raman MD documented in this encounter [facility] Work Phone: 11-21-2022 Instructions Ioana Drummond LPN [...] of your visit. documented in this encounter [facility] Work Phone: 10-25-2022 Nurse Note AMBULATORY PATIENT [...] In Department: GASTROENTEROLOGY documented in this encounter [facility] 10-18-2022 Miscellaneous Notes Attempted to reach the patient at the contact number that they provided [phone] (home) . 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 left informing the patient/patient statement services representative they must have a responsible adult [...] Number to call with questions or concerns [phone] Number to call to cancel their procedure [phone] Swathi Pond RN documented in this encounter [facility] 04-21-2022 Miscellaneous Notes Received request for stool orders to be faxed to [facility]. Orders faxed successfully to [phone] Keiko Hernandez RN documented in this encounter [facility] 04-20-2022 History of Present illness Narrative Called [...] visit. Either the patient or their legal statement services representative has been informed of the risks and benefits of -- and alternatives to -- treatment through a remote evaluation and consents to proceed with the evaluation remotely. Pt is advised to follow up in person with any new/worsening symptoms Her colonoscopy is due 08/2022- sooner as clinically indicate Melody Hernandez APRN.CNP documented in this encounter [facility] 04-19-2022 History of Present illness Narrative VIRTUAL VISIT FOLLOW UP Dianelys Womack [id number] has requested a video telemedicine for [...] diarrhea. Last seen on 10/28/[address] Faith. UPDATED HISTORY: Dianelys has been feeling better [...] pain: yes- Location: bilateral upper quadrants. Description: zoeing. Rates /10. Triggers: pressure to that area. [...] 205.7 (H) Last Endoscopy Colonoscopy (12/06/2021)- Dr. Faith Findings: The perianal and digital rectal examinations [...] serrated adenoma Last Procedure OR (03/03/2022)- Dr. Garcia Operation: Endoscopic submucosal dissection (73617) and transanal endoscopic removal of the larger [...] On 03/03/2022 she underwent endoscopic submucosal dissection (28497) and transanal endoscopic removal of the larger rectal lesion with Dr. Garcia- path detailed above. She followed up with ELIZABET Owens DIRECTOR OF RESEARCH AND DEVELOPMENT, s/p surgery and reported feeling improved overall [...] outlined below- will discuss case with Dr. Faith. If rectal issues return, would recommend that she follow up with [facility] for possible JOHNATHAN. PLAN - Continue current medication regimen - Trial of IBGard=>if symptoms persist despite IBGard, would recommend either Bentyl or Levsin - Repeat fecal calpro (fax to #[phone], per pt preference) - CTe to further assess reported abdominal pain - Repeat colonoscopy in 08/2022 for polyp surveillance which was ordered by Dr. Faith already=>if early satiety persists, would recommend completing EGD at same time; if rectal bleeding returns, would recommend we complete this sooner - Could consider ARM if feelings of incomplete evacuation persist - Follow up with Dr. Faith in 3-6 months I spent 32 minutes in the virtual visit, with more than 50% of the total bjuf-kl-kjij time of the visit in counseling / coordination of care. I have confirmed and edited as necessary, the PFSH and ROS obtained by others. Unrelated to E/M, telemedicine, or virtual visit service provided within previous 7 days. No E/M service or procedure anticipated within next 24 hours. Debbi Hammond APRN.PRIMER PRESS OPERATOR April 19, 2022 5:49 PM Answers submitted [...] with oil: Yes documented in this encounter [facility] 03-28-2022 Miscellaneous Notes Called and spoke with [...] that she should reach out to Dr Faith's office to discuss her GI symptoms as she was seeing him prior to ESD for these concerns. Patient will reach out to his office to discuss [phone] Dianelys Womack complains of watery diarrhea. documented in this encounter [facility] 03-10-2022 Miscellaneous Notes Called and spoke with [...] again, patient appreciative of call, verbalized understanding [phone] Dianelys Womack asked to speak with Lety. [...] make the appt. documented in this encounter [facility] 03-09-2022 Miscellaneous Notes I called patient and left message. An order for vascular surgery consult was placed. A message was sent to our schedulers to coordinate, however, she can call herself to schedule [phone] Dianelys Womack asked to speak with Lety about 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 documented in this encounter [facility] 03-02-2022 Miscellaneous Notes Called and spoke with patient Advised that she has a listed allergy to flagyl, so I did not send that to her pharmacy Patient verbalized understanding Dianelys Womack asked why she didn't get the flagyl and just the neomycin? documented in this encounter [facility] 03-01-2022 Miscellaneous Notes Dianelys Womack did not receive any information by mail. As discussed, please fax to daughterЕлена [phone] documented in this encounter [facility] 02-28-2022 Miscellaneous Notes Called and spoke with patient She would like pt ed info faxed to her daughter's fax number She also wanted to review meds prior to surgery - reviewed what PACC advised as far as medication stopping and/or taking Patient appreciative of call She was also interested in possibly hooking up with cardiovascular provider [facility] for AAA She will call me if interested deciding to proceed with care with CV at [facility] - I am happy to help coordinate [phone] Dianelys Womack has questions about meds she can and can't take prior to surgery. K-klore Tramadol probotic documented in this encounter [facility] 02-26-2022 Miscellaneous Notes Patient calling she has colorectal surgery on 03/03/22. Patient was given instructions on taking medications prior to surgery. Patient stated they did not go over her tramadol or Klor-con and she is concerned. Unable to see specifics on these medications to help patient. Patient denies any new or worsening symptoms of which a provider is not aware:Yes. Conferenced to [facility] typewriter operator automatic [place] for Colorectal Surgery mixer diamond powder provider for Dr. Pradeep Garcia. GO TO THE EMERGENCY ROOM OR CALL 911 IF: * You develop any new symptoms * Your condition worsens * You are concerned or anxious about your condition for any other reason. If you have any questions, you can call Nurse diamond sander back. documented in this encounter [facility] 02-24-2022 Miscellaneous Notes Called and spoke with patient She accidentally left and missed pt ed appt Reviewed pt ed over the phone Medications sent to pharmacy Will send pt ed info to her via mail Patient appreciativ eof call The Patient is returning the nurses call back. Please call patient at [phone] documented in this encounter [facility] 02-24-2022 Miscellaneous Notes Called patient. No answer, left message Advised that she is late for appt with nurse for preop education Advised that she come to appt if she is still here, if running late no problem If she left for the day, she should call the office so we can review pt ed over the phone documented in this encounter [facility] 02-24-2022 Instructions Karson Monte APRN.ALEX - 02/24/2022 10:00 AM EST PATIENT PREOPERATIVE INSTRUCTIONS Gareth Garcia MD has scheduled you for your procedure at this surgery center: [facility] [place] [facility] Scheduling Office: [phone] --[address] [place] [address]. Please read below carefully for your personalized [...] Procedures: - YOU MUST HAVE A RESPONSIBLE SCROLL SHEAR OPERATOR TAKE YOU HOME. A GOAT HERDER OR OYSTER GROWER CANNOT BE MADE A RESPONSIBLE SCROLL SHEAR OPERATOR. - We recommend that a responsible person [...] call the Monday before. Your surgeon s scaffold worker will tell you what time to call the office. - If you have not reached the departmental scaffold worker by 5 P.M., call [phone] after 5 P.M. the day before your surgery. Please be aware that emergency situations arise, which may delay or change your surgical time. If this happens, we will notify you as soon as possible and regret any inconvenience. If you already have an Advance Directive, please fax a copy to [phone] or email to for it to be [...] Karson Monte APRN.CNP documented in this encounter [facility] 02-24-2022 History and physical note HISTORY AND PHYSICAL EXAMINATION SERVICE DATE: 02/24/2022 SERVICE TIME: 10:49 AM PRIMARY CARE PHYSICIAN: Monika Lehman MD REASON FOR VISIT: Dianelys Womack is a 71 year old female who is scheduled for Procedure(s): COMBINED CO2 COLONOSCOPY AND LAPAROSCOPY (N/A) TAMIS EXC RECTAL TUMOR TRANSANAL MINIMALLY INVASIVE SURGERY (N/A) at the request of Dr. Gareth Garcia for consultation. My final recommendation will be [...] kidney disease) stage 3, GFR 30-59 ml/min ([facility] [place]) Difficult airway for intubation Difficult intubation 02/24/2022 [...] or any previous visit (from the past 63132 hour(s)). Assessment History of anesthesia complications Patient [...] 35 kg/m^2 Non-male patient STOP-Bang Score: 3 [id number] Score: Hypertension history: Yes Stroke/TIA/thromboembolism history: Yes [id number] Score: 3 ARISCAT Score: Emergency procedure: No [...] AM PAGER/CONTACT #: documented in this encounter [facility] 01-12-2022 History and physical note COLORECTAL SURGERY New Patient Visit January 04, 2022 Chief Complaint: rectal lesion History of Present Illness: Dianelys Womack is a 71 year old female referred by Dr Faith who underwent colonoscopy on 12.06.2021 for the [...] closed Resting tone: NORMAL Squeeze tone: NORMAL Packaging Manager present: Yes Assessment Medical Decision Making: Assessment [...] treatment plan: moderate documented in this encounter [facility] 12-24-2021 Miscellaneous Notes Spoke to Dianelys and reviewed colonoscopy and EGD results. She notes improvement in diarrhea since the colonoscopy. Also previously noted something bulging in and out of her rectum but not since the procedure. Will ask Dr. Garcia if he can attempt endoscopic or transanal resection of the polyp Taz Faith MD documented in this encounter [facility] 12-06-2021 Nurse Note AMBULATORY PATIENT EDUCATION NOTE [...] Anastasia Orlando RN documented in this encounter [facility] 11-29-2021 Miscellaneous Notes Attempted to reach the patient at the contact number that they provided [phone] (home). 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 statement services representative they must have a responsible adult [...] -Number to call with questions or concerns [phone] Diane Panchal RN BSN documented in this encounter [facility] 11-05-2021 Miscellaneous Notes JOAN- please let her know that new orders have been signed Taz Faith MD Orders pended in this encounter. Keiko Hernandez RN Please place new egd/colonoscopy w MAC orders to be scheduled at Q3 Please contact patient's daughter(Shy) to schedule. # [phone] documented in this encounter [facility] 10-28-2021 History of Present illness Narrative VIRTUAL VISIT NEW PATIENT NAME: Dianelys Womack [facility] NO: [id number] DATE: 10/28/2021 REASON FOR VISIT Dianelys Womack [...] which included preparing to see the patient, qbsm-ex-chtu patient care, completing clinical documentation, obtaining and/or reviewing separately obtained history, counseling and educating the patient/family/caregiver, and ordering medications, tests, or procedures. Taz Faith MD documented in this encounter [facility] 09-14-2021 Note PROCEDURE: XR FOREAR M LT [...] authenticated by: NATALIE FRANCO Date: 2021-09-14 08:58 [facility] 09-14-2021 Note PROCEDURE: XR FOREAR [...] by: NATALIE FRANCO Date: 2021-09-14 08:58 [facility] 07-07-2021 Note CONSULTATION CONSULTATION DATE: [...] heavy antibiotic use. 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 She does have [...] back pain are twisting, pulling, standing, walking, employment law specialist hours and cold weather. She does use heat which decreases her pain. She has completed physical therapy at [facility] within the past year. She has [...] of care and will call as needed. [facility] Signed and Approved by: MARANDA OSEGUERA . 07/21/2021 16:05:00 [facility] 06-14-2021 Evaluation note Encounter Date [...] She understands and agrees with that plan. [employer] Other 11-02-2021 Evaluation note* Encounter Date Diagnosis [...] the next visit we may consider intervention. [employer] Other Evaluation noteNo assessment information available [facility] Work Phone: Evaluation note* Diagnosis Diarrhea, unspecified type- Primary Abdominal pain, unspecified abdominal location Nausea Nausea alone [facility] [place] [facility]* Diagnosis Abdominal pain, unspecified abdominal location- Primary Diarrhea, unspecified type [facility] [place] [facility]* Diagnosis Diarrhea, unspecified type Abdominal pain, unspecified abdominal location Primary hypertension Unspecified essential hypertension Gastroesophageal reflux disease without esophagitis Esophageal reflux Chronic renal impairment, stage 2 (mild) History of anesthesia complications Unspecified adverse effect of anesthesia Cerebrovascular accident (CVA), unspecified mechanism (HCC) documented [facility] [place] [facility]* Diagnosis 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, intestines, and rectum documented in this encounter [facility] note* Diagnosis Benign neoplasm of rectum- Primary Benign neoplasm of rectum and anal canal [facility] [place] [facility] Diagnosis Pre-op evaluation- Primary Preoperative examination, [...] involving digestive system [facility] [place] [facility]* Diagnosis Thoracoabdominal aortic aneurysm (TAAA) without rupture, unspecified part- Primary [facility] [place] [facility]* Diagnosis Adenomatous rectal polyp- Primary Benign neoplasm of rectum and anal canal documented in this encounter [facility] note* Diagnosis Abdominal pain, unspecified abdominal location- Primary Adenomatous rectal polyp Benign neoplasm of rectum and anal canal Adverse effect of treatment, initial encounter documented in this encounter [facility] note* Diagnosis Follow-up exam- Primary Unspecified follow-up examination documented in this encounter [facility] note* Diagnosis Abdominal pain, unspecified abdominal location Diarrhea, unspecified type [facility] Diagnosis Former smoker- Primary Personal history of tobacco use, presenting hazards to health Essential hypertension Unspecified essential hypertension 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) PVC (premature ventricular contraction) Other premature beats Other ill-defined heart diseases documented in this encounter [facility] Work Phone: Evaluation note* Diagnosis Essential hypertension- Primary Unspecified essential hypertension documented in this encounter [facility] Work Phone: Evaluation note* Diagnosis Numbness- Primary Disturbance of skin sensation documented in this encounter [facility]* Diagnosis Cervical paraspinal muscle spasm- Primary Spasm of muscle Polyneuropathy Unspecified hereditary and idiopathic peripheral neuropathy Central vestibular vertigo Vertigo of central origin Unsteadiness on feet documented in this encounter [facility]* Diagnosis Essential hypertension- Primary Unspecified essential hypertension documented in this encounter [facility] Work Phone: Evaluation note* Diagnosis Cervical paraspinal [...] mood disturbance, or anxiety, unspecified dementia severity ([facility]/HCC) Cerebrovascular accident (CVA) due to thrombosis of precerebral artery (CMS/HCC) Chronic pain syndrome Other emphysema (CMS/HCC) Other emphysema Carotid stenosis, bilateral Occlusion and stenosis of carotid artery without mention of cerebral infarction Generalized atherosclerosis Generalized and unspecified atherosclerosis Benign essential hypertension (CMS/HCC) Essential hypertension, benign Constipation, unspecified constipation type Nonalcoholic fatty liver disease without nonalcoholic steatohepatitis ([facility]ISWAS) Irritable bowel syndrome with both constipation and diarrhea Gastroesophageal reflux disease without esophagitis Esophageal reflux Chronic kidney disease, stage 3a (HCC) (CMS/HCC) B12 deficiency Acquired hypothyroidism (CMS/HCC) Unspecified hypothyroidism Vitamin D deficiency Hyperparathyroidism, unspecified ([facility]/HCC) Hyperparathyroidism, unspecified Seasonal allergies Allergic rhinitis, cause unspecified Dyslipidemia ([facility]/HCC) Other and unspecified hyperlipidemia BPPV (benign paroxysmal positional vertigo), left Anxiety and depression ([facility]/HCC) Localized edema Edema Acute serous otitis media, recurrence not specified, unspecified laterality Muscle cramps documented [facility] encounter [facility]* Diagnosis Cervical paraspinal muscle spasm Spasm of muscle Polyneuropathy Unspecified hereditary and idiopathic peripheral neuropathy Fall in home, initial encounter- Primary Nonalcoholic fatty liver disease without nonalcoholic steatohepatitis (BISWAS) Abdominal aortic aneurysm (AAA) without rupture, unspecified part ([facility]/HCC) Stage 3a chronic kidney disease (HCC) ([facility]/HCC) Benign essential hypertension ([facility]/HCC) Essential hypertension, benign Adjustment disorder with anxiety ([facility]/HCC) Adjustment disorder with anxiety Polyneuropathy Unspecified hereditary and idiopathic peripheral neuropathy Reactive depression ([facility]/HCC) Neurogenic pain- Primary Carotid stenosis, bilateral Occlusion [...] Essential hypertension, benign Adjustment disorder with anxiety ([facility]/HCC) Adjustment disorder with anxiety Neuralgia and neuritis, [...] Vitamin D deficiency Adjustment disorder with anxiety ([facility]/HCC)- Primary Adjustment disorder with anxiety Hypokalemia Hypopotassemia Spondylosis without myelopathy or radiculopathy, lumbar region documented in this encounter [facility]* Diagnosis Cervical paraspinal muscle [...] monitoring diuretic therapy documented in this encounter [facility] HealthcareEvaluation note* Diagnosis Cervical paraspinal muscle [...] maxillary sinusitis- Primary documented in this encounter [facility]* Diagnosis Cervical paraspinal muscle spasm Spasm of muscle Polyneuropathy Unspecified hereditary and idiopathic peripheral neuropathy Fall in home, initial encounter- Primary Nonalcoholic fatty liver disease without nonalcoholic steatohepatitis ([facility]) Abdominal aortic aneurysm (AAA) without rupture, unspecified part ([facility]/HCC) Stage 3a chronic kidney disease (HCC) ([facility]/HCC) Benign essential hypertension (CMS/HCC) Essential hypertension, benign Adjustment disorder with anxiety (CMS/HCC) Adjustment disorder with anxiety Polyneuropathy Unspecified hereditary and idiopathic peripheral neuropathy Reactive depression ([facility]/HCC) Neurogenic pain- Primary Carotid stenosis, bilateral Occlusion [...] chronic bronchitis Acute non-recurrent maxillary sinusitis- Primary Loose stools- Primary Abnormal feces Acute bronchitis, unspecified organism Irritable bowel syndrome with diarrhea Irritable bowel syndrome documented in this encounter [facility] note* Diagnosis Cervical paraspinal muscle spasm Spasm of muscle Polyneuropathy Unspecified hereditary and idiopathic peripheral neuropathy Fall in home, initial encounter- Primary Nonalcoholic fatty liver disease without nonalcoholic steatohepatitis ([facility]) Abdominal aortic aneurysm (AAA) without rupture, unspecified part (CMS/HCC) Stage 3a chronic kidney disease (HCC) ([facility]/HCC) Benign essential hypertension (CMS/HCC) Essential hypertension, benign [...] chronic bronchitis Acute non-recurrent maxillary sinusitis- Primary Neuralgia and neuritis, unspecified Spondylosis without myelopathy or radiculopathy, lumbar region Adjustment disorder with anxiety (CMS/HCC) Adjustment disorder with anxiety documented in this encounter [facility]* Diagnosis Pre-op evaluation- Primary Preoperative examination, unspecified History of anesthesia complications Unspecified adverse effect of anesthesia Primary hypertension Unspecified essential hypertension Gastroesophageal reflux disease without esophagitis Esophageal reflux Hypothyroidism, unspecified type Former smoker Personal history of tobacco use, presenting hazards to health Thoracoabdominal aortic aneurysm (TAAA), unspecified part, unspecified whether ruptured (HCC) Anxiety and depression Dysthymic disorder History of difficult intubation Other specified personal history presenting hazards to health Chronic renal impairment, stage 2 (mild) Pararenal abdominal aortic aneurysm (AAA) without rupture (HCC)- Primary documented in this encounter [facility] note* Diagnosis Pre-op evaluation- Primary Preoperative examination, [...] health Chronic renal impairment, stage 2 (mild) Carotid stenosis, asymptomatic, bilateral- Primary Pararenal abdominal aortic aneurysm (AAA) without rupture Encounter for screening for cardiovascular disorders Screening for other and unspecified cardiovascular conditions Encounter for preprocedural cardiovascular examination Pre-operative cardiovascular examination documented in this encounter [facility] note* Diagnosis Pre-op evaluation- Primary Preoperative examination, [...] health Chronic renal impairment, stage 2 (mild) Encounter for screening for cardiovascular disorders Screening for other and unspecified cardiovascular conditions Encounter for preprocedural cardiovascular examination Pre-operative cardiovascular examination documented in this encounter [facility] note* Diagnosis Former smoker- Primary Personal history of tobacco use, presenting hazards to health Essential hypertension Unspecified essential hypertension Pararenal abdominal aortic aneurysm (AAA) without rupture PVC (premature ventricular contraction) Other premature beats Other ill-defined heart diseases Essential hypertension- Primary Unspecified essential hypertension documented in this encounter [facility] Work Phone: History general Narrative - Reported* Type Description Date Medical History AAA Medical History CVOD Medical History CVA Medical History HTN Medical History C-diff Medical History CRI Medical History Iliac artery aneurysm Surgical History tonsillectomy and adenoidectomy Surgical History appendectomy Surgical History cholecystectomy Surgical History hysterectomy x 3 Hospitalization History childbirth Hospitalization History see above Hospitalization History pgeisert [employer] Other History of Present illness Narrative* Ms. [...] for follow-up or sooner if need be. [facility] 250 DO Work Phone: History of Present illness NarrativeThe patient is being seen for a routine clinic follow-up of chronic kidney disease. This is classified as stage 3. Recently, the disease has been stable. There are no known disease complications. Thepatient is currently asymptomatic. No associated symptoms are reported.[facility] 3 DO Work Phone: History of Present illness NarrativeThe patient is being seen for a routine clinic follow-up of chronic kidney disease. This is classified as stage 3. Recently, the disease has been stable. There are no known disease complications. Thepatient is currently asymptomatic. No associated symptoms are reported.[facility] 3A [place] Work Phone: History of Present illness Narrative* Daniel Ma MD - 01/20/2023 11:20 AM EST Dianelys Womack 72 y.o. @@ [facility]/Room: [id number]/Room/bed info not found Subjective: The patient is [...] follow-up. Daniel Ma MD documented in this [facility] Work Phone: Hospital Discharge instructions Additional Instructions Follow-up with your refrigeration specialist as scheduled [facility]: Reason for referral (narrative)* Outpatient Procedure (Routine) - Pending Review Specialty Diagnoses / Procedures Referred By Contac t Referred To [facility] Diagnoses Abdominal pain, unspecified abdominal location Diarrhea, unspecified type Procedures COLONOSCOPY DIAGNOSTIC COLONOSCOPY FLX DX W/COLLJ SPEC WHEN PFRMTaz Whitehead MD [address] [place] [address] [address] Referral ID Status Reason Start Date Expiration Date Visits Requested Visits Authorized [id number] Pending Review Auto-Generat ed Referral 10/28/2021 10/28/2022 1 1 * Outpatient Procedure (Routine) - Pending Review Specialty Diagnoses / Procedures Referred By Contac t Referred To [facility] Diagnoses Abdominal pain, unspecified abdominal location Diarrhea, unspecified type Procedures EGD DIAGNOSTIC ESOPHAGOGASTRODUODENOSC OPY TRANSORAL DIAGNOSTIC Taz Faith MD [address] [place] [address] [address] Referral ID Status Reason Start Date Expiration Date Visits Requested Visits Authorized [id number] Pending Review Auto-Generat ed Referral 10/28/2021 10/28/2022 1 1 [facility] for referral (narrative)* Outpatient Procedure (Routine) - Pending Review Specialty Diagnoses / Procedures Referred By Contac t Referred To [facility] Diagnoses Abdominal pain, unspecified abdominal location Procedures EGD DIAGNOSTIC ESOPHAGOGASTRODUODENOSC OPY TRANSORAL DIAGNOSTIC Taz Faith MD [address] [place] [address] [address] Referral ID Status Reason Start Date Expiration Date Visits Requested Visits Authorized [id number] Pending Review Auto-Generat ed Referral 05/04/2022 11/04/2022 1 1 * Outpatient Procedure (Routine) - Pending Review Specialty Diagnoses / Procedures Referred By Contac t Referred To Contact [facility] Diagnoses Diarrhea, unspecified type Procedures COLONOSCOPY DIAGNOSTIC COLONOSCOPY FLX DX W/COLLJ SPEC WHEN Taz Heard MD [address] [place] [address] [address] Referral ID Status Reason Start Date Expiration Date Visits Requested Visits Authorized [id number] Pending Review Auto-Generat ed Referral 05/04/2022 11/04/2022 1 1 [facility] for referral (narrative)* Outpatient Procedure (Routine) - Closed Specialty Diagnoses / Procedures Referred By Contac t Referred To Contact [facility] Diagnoses Abdominal pain, unspecified abdominal location Procedures EGD DIAGNOSTIC ESOPHAGOGASTRODUODENOSC OPY TRANSORAL DIAGNOSTIC Taz Faith MD [address] [place] [address] [address] Referral ID Status Reason Start Date Expiration Date V isits Requested Visits Authorized [id number] Closed Auto-Generate d Referral 05/04/2022 11/04/2022 1 1 * Outpatient Procedure (Routine) - Closed Specialty Diagnoses / Procedures Referred By Contac t Referred To [facility] Diagnoses Diarrhea, unspecified type Procedures COLONOSCOPY DIAGNOSTIC COLONOSCOPY FLX DX W/COLLJ SPEC WHEN Taz Heard MD [address] [place] [address] [address] Referral ID Status Reason Start Date Expiration Date V isits Requested Visits Authorized [id number] Closed Auto-Generate d Referral 05/04/2022 11/04/2022 1 1 [facility] for referral (narrative)* Outpatient Procedure (Routine) - Pending Review Specialty Diagnoses / Procedures Referred By Contac t Referred To Contact [facility] Diagnoses Adenomatous rectal polyp Procedures COLONOSCOPY DIAGNOSTIC COLONOSCOPY FLX DX W/COLLJ SPEC WHEN Taz Heard MD [address] [place] [address] [address] Referral ID Status Reason Start Date Expiration Date Visits Requested Visits Authorized [id number] Pending Review Auto-Generat ed Referral 04/10/2022 04/10/2023 1 1 [facility] for referral (narrative)* Outpatient Procedure (Routine) - Closed Specialty Diagnoses / Procedures Referred By Contac t Referred To Contact [facility] Diagnoses Abdominal pain, unspecified abdominal location Diarrhea, unspecified type Procedures COLONOSCOPY DIAGNOSTIC COLONOSCOPY FLX DX W/COLLJ SPEC WHEN Taz Heard MD [address] [place] [address] [address] Referral ID Status Reason Start Date Expiration Date V isits Requested Visits Authorized [id number] Closed Auto-Generate d Referral 10/28/2021 10/28/2022 1 1 [facility] for referral (narrative)* Consultation (Routine) - Authorized Specialty Diagnoses / Procedures Referred By Contac t Referred To Contact Cardiology Diagnoses Essential hypertension 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) Procedures Follow Up In Cardiology Elinor Raman MD [address] [place] [address] Referral ID Status Reason Start Date Expiration Date V isits Requested Visits Authorized [id number] Authorized 11/21/2022 05/20/2023 1 1 * Cardiac Stress Testing (Routine) - Pending Review Specialty Diagnoses / Procedures Referred By Guero butt Referred To Contact Radiology Diagnoses Essential hypertension 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) Other ill-defined heart diseases Procedures Nuclear Stress Test CHG MYOCARDIAL SPECT MULTIPLE STUDIES CHG MYOCARDIAL SPECT SINGLE STUDY AT REST OR STRESS Elinor Raman MD [address] [address] Referral ID Status Reason Start Date Expiration Date V isits Requested Visits Authorized [id number] Pending Review 11/21/2022 05/20/2023 5 5 * CV Imaging (Routine) - Pending Review Specialty Diagnoses / Procedures Referred By Guero butt Referred To Contact Cardiology Diagnoses Essential hypertension 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) PVC (premature ventricular contraction) Procedures Transthoracic Echo (TTE) Complete KS ECHO TRANSTHORC R-T 2D W/WO M-MODE REC F-UP/LMTD KS DOP ECHOCARD COLOR FLOW VELOCITY MAPPING [place] DOP ECHOCARD PULSE WAVE W/SPECTRAL F-UP/LMTD STD Elinor Raman MD [address] [place] [address] Referral ID Status Reason Start Date Expiration Date Visits Requested Visits Authorized [id number] Pending Review Perform Procedure 11/21/2022 05/20/2023 1 1 [facility] Work Phone: Reason for visit Narrative* Outpatient Procedure (Routine) - Closed Specialty Diagnoses / Procedures Referred By Guero butt Referred To Contact [facility] Diagnoses Abdominal pain, unspecified abdominal location Diarrhea, unspecified type Procedures COLONOSCOPY DIAGNOSTIC COLONOSCOPY FLX DX W/COLLJ SPEC WHEN PFRMD Taz Faith MD [address] [place] [address] [facility] [address] [place] [address] Referral ID Status Reason Start Date Expiration Date V isits Requested Visits Authorized [id number] Closed Auto-Generate d Referral 10/28/2021 10/28/2022 1 1 [facility] for visit Narrative* Consult, Test, Treat (Routine) - Closed Specialty Diagnoses / Procedures Referred By Contac t Referred To Contact Vascular Surgery Diagnoses Pararenal abdominal aortic aneurysm (AAA) without rupture Procedures CONSULT TO VASCULAR SURGERY OFFICE/OUTPATIENT [facility] [address] [place] [address] [address] Phone: tel: fax: Referral ID Status Reason Start Date Expiration Date V isits Requested Visits Authorized [id number] Closed PCP Requested Referral 05/08/2024 05/08/2025 1 1 [facility] for visit Narrative* Diagnostic Procedure Only (Routine) - Closed Specialty Diagnoses / Procedures Referred By Contac t Referred To Contact [facility] Diagnoses Encounter for screening for cardiovascular disorders Encounter for preprocedural cardiovascular examination Procedures NM CARDIAC PERF STRESS/PHARM MYOCARDIAL SPECT MULTIPLE STUDIES Chris Torres MD [address] [place] [address] Phone: tel: fax: Molecular Imaging [address] [place] [address] Phone: tel: Referral ID Status Reason Start Date Expiration Date V isits Requested Visits Authorized [id number] Closed Auto-Generate d Referral 05/09/2024 06/08/2025 1 1 [facility] Summary Purpose Family History Unknown Family Member Name Dates Details Family [...] cardiomega ly: Father(V17.49, Z82.49) Status:Active Advance Directives Advance Directive Response Recorded Date/ Time Advance [...] CT ABD & PELVIS W/CONTRAST Debbi Hammond, HAND BRAILLE TRANSCRIBER.PRIMER PRESS OPERATOR [address] [place] [address] Ct Imaging Referral ID Status Reason Start Date Expiration Date Visits Requested Visits Authorized [id number] Pending Review Auto-Generat ed Referral 04/19/2022 05/19/2023 1 1 Specialty Diagnoses / Procedures Referred By Guero butt Referred To Contact Vascular Surgery Diagnoses Thoracoabdominal aortic aneurysm (TAAA) without rupture, unspecified part Procedures CONSULT TO VASCULAR SURGERY OFFICE/OUTPATIENT [facility] 60-74 MINUTES Gareth Garcia MD [address] [facility] [address] [place] [address] Referral ID Status Reason Start Date Expiration Date Visits Requested Visits Authorized [id number] Pending Review PCP Requested Referral 03/08/2022 03/08/2023 1 1 Additional Source Comments INFORMATION SOURCE (unrecogn ized section and content) DATE CREATED AUTHOR 08/15/2018 [facility] DATE CREATED AUTHOR AUTHOR'S ORGANIZ ATION 03/25/2022 [facility] DATE CREATED AUTHOR AUTHOR'S ORGANIZ ATION 09/21/2022 [facility] DATE CREATED AUTHOR AUTHOR'S ORGANIZ ATION 09/21/2022 [facility] DATE CREATED AUTHOR AUTHOR'S ORGANIZ ATION 03/14/2024 [facility] DATE CREATED AUTHOR AUTHOR'S ORGANIZ ATION 05/01/2024 [facility] EPIC DATE CREATED AUTHOR AUTHOR'S ORGANIZ ATION 05/09/2024 [facility] DATE CREATED AUTHOR AUTHOR'S ORGANIZ ATION 05/09/2024 [facility] DATE CREATED AUTHOR AUTHOR'S ORGANIZ ATION 06/01/2024 [facility] DATE CREATED AUTHOR AUTHOR'S ORGANIZ ATION 07/19/2024 [facility] Government [employer] Executive Teams (unrecognized sec tion and content) Team Status: Inactive Member Role Status Dates Monika Lehman MD Primary Care Provider Active Nick Acosta MD Attending Provider Active Team Status: Active Member Role Status Dates Monika Lehman MD Primary Care Provider Active Team Status: Inactive Member Role Status Dates Monika Lehman MD Primary Care Provider Active Daniel Ma MD Attending Provider Active Armed Security Officer Relationship Specialty Start Date End Date Monika Lehman [address] [facility] [address] [place] [address] PCP - General Family Practice 03/12/15 Aman Quiroz MD [address] [facility] [address] [place] [id number] Referring Neurology 11/20/19 Armed Security Officer Relationship Specialty Start Date End Date Monika Lehman [address] [facility] [address] [place] [address] PCP - General Family Medicine 03/12/15 Aman Quiroz MD [address] [place] [address] Referring Neurology 11/20/19 Team Status: Inactive Member Role Status Dates Monika Lehman MD Primary Care Provider Active Chucoh Saldaña MD Emergency Provider Active Armed Security Officer Relationship Specialty Start Date End Date Monika Lehman [address] [facility] [address] [place] [address] PCP - General Family Medicine 03/12/15 Aman Quiroz MD [address] [place] [address] Referring Neurology 11/20/19 Armed Security Officer Relationship Specialty Start Date End Date Monika Lehman [address] [facility] [address] [place] [address] PCP - General Family Medicine 03/12/15 Aman Quiroz MD [address] [place] [address] Referring Neurology 11/20/19 Armed Security Officer Relationship Specialty Start Date End Date Monika Lehman [address] [facility] [address] [place] [address] PCP - General Family Medicine 03/12/15 Aman Quiroz MD [address] [place] [address] Referring Neurology 11/20/19 Armed Security Officer Relationship Specialty Start Date End Date FallonMonika mitchelly [address] [facility] [address] [place] [address] PCP - General Family Medicine 03/12/15 Aman Quiroz MD [address] [place] [address] Referring Neurology 11/20/19 Armed Security Officer Relationship Specialty Start Date End Date Monika Lehmanfabio [address] [facility] [address] [place] [address] PCP - General Family Medicine 03/12/15 Aman Quiroz MD [address] [place] [address] Referring Neurology 11/20/19 Armed Security Officer Relationship Specialty Start Date End Date Monika Lehmanfabio [address] [facility] [address] [place] [address] PCP - General Family Medicine 03/12/15 Aman Quiroz MD [address] [place] [address] Referring Neurology 11/20/19 Armed Security Officer Relationship Specialty Start Date End Date Monika Lehmanfabio [address] [facility] [address] [place] [address] PCP - General Family Medicine 03/12/15 Aman Quiroz MD [address] [place] [address] Referring Neurology 11/20/19 Armed Security Officer Relationship Specialty Start Date End Date Monika Lehmanfabio [address] [place] [address] [place] [address] PCP - General Family Medicine 03/12/15 Aman Quiroz MD [address] [place] [address] Referring Neurology 11/20/19 Armed Security Officer Relationship Specialty Start Date End Date Monika Lehman [address] [place] [address] [place] [address] PCP - General Family Medicine 03/12/15 Aman Quiroz MD [address] [place] [address] Referring Neurology 11/20/19 Armed Security Officer Relationship Specialty Start Date End Date Monika Lehman [address] [place] [address] [place] [address] PCP - General Family Medicine 03/12/15 Aman Quiroz MD [address] [place] [address] Referring Neurology 11/20/19 Armed Security Officer Relationship Specialty Start Date End Date Monika Lehamn [address] [place] [address] [place] [address] PCP - General Family Medicine 03/12/15 Aman Quiroz MD [address] [place] [address] Referring Neurology 11/20/19 Armed Security Officer Relationship Specialty Start Date End Date Monika Lehman [address] [place] [address] [place] [address] PCP - General Family Medicine 03/12/15 Aman Quiroz MD [address] [place] [address] Referring Neurology 11/20/19 Armed Security Officer Relationship Specialty Start Date End Date Monika Lehman [address] [place] [address] [place] [address] PCP - General Family Medicine 03/12/15 Aman Quiroz MD [address] [place] [address] Referring Neurology 11/20/19 Armed Security Officer Relationship Specialty Start Date End Date Monika Lehmanfabio [address] [facility] [address] [place] [address] PCP - General Family Medicine 03/12/15 Aman Quiroz MD [address] [place] [address] Referring Neurology 11/20/19 Armed Security Officer Relationship Specialty Start Date End Date Fallon Monika Agustinfabio [address] [facility] [address] [place] [address] PCP - General Family Medicine 03/12/15 Aman Quiroz MD [address] [place] [address] Referring Neurology 11/20/19 Armed Security Officer Relationship Specialty Start Date End Date Monika Lehman MD [address] [facility] [address] [place] [address] PCP - General Family Medicine 03/12/15 Aman Quiroz MD [address] [place] [address] Referring Neurology 11/20/19 Armed Security Officer Relationship Specialty Start Date End Date Monika Lehman MD [address] [facility] [address] [place] [address] PCP - General Family Medicine 03/12/15 Aman Quiroz MD [address] [place] [address] Referring Neurology 11/20/19 Armed Security Officer Relationship Specialty Start Date End Date Monika Lehman MD [address] [place] [address] PCP - General 08/14/18 Armed Security Officer Relationship Specialty Start Date End Date Monika Lehman MD [address] [facility] [address] [place] [address] PCP - General 08/14/18 Armed Security Officer Relationship Specialty Start Date End Date Monika Lehman MD [address] [facility] [address] [place] [address] PCP - ACO Reach 07/07/22 Monika Lehman MD [address] [facility] [address] [place] [address] PCP - General Family Medicine 08/03/22 Armed Security Officer Relationship Specialty Start Date End Date Monika Lehman MD [address] [facility] [address] [place] [address] PCP - ACO Reach 07/07/22 Monika Lehman MD [address] [facility] [address] [place] [address] PCP - General Family Medicine 08/03/22 Armed Security Officer Relationship Specialty Start Date End Date Monika Lehman MD [address] [facility] [address] [place] [address] PCP - General 08/14/18 [place] [address] [facility] [address] [place], [place] [id number] Therapeutic Recreation Specialist Nephrology 07/19/23 Armed Security Officer Relationship Specialty Start Date End Date Monika Lehman MD [address] [place] [address] [place] [address] PCP - ACO Reach 07/07/22 Monika Lehman MD [address] [place] [address] [place] [address] PCP - General Family Medicine 08/03/22 Armed Security Officer Relationship Specialty Start Date End Date Monika Lehman MD [address] [place] [address] [place] [address] PCP - ACO Reach 07/07/22 Monika Lehman MD [address] [place] [address] [place] [address] PCP - General Family Medicine 08/03/22 Armed Security Officer Relationship Specialty Start Date End Date Monika Lehman MD [address] [place] [address] [place] [address] PCP - ACO Reach 07/07/22 Monika Lehman MD [address] [place] [address] PCP - General Family Medicine 08/03/22 Armed Security Officer Relationship Specialty Start Date End Date Monika Lehman MD [address] [place] [address] PCP - ACO Reach 07/07/22 Monika Lehman MD [address] [place] [address] PCP - General Family Medicine 08/03/22 Armed Security Officer Relationship Specialty Start Date End Date Monika Lehman MD [address] [place] [address] PCP - ACO Reach 07/07/22 Monika Lehman MD [address] [place] [address] PCP - General Family Medicine 08/03/22 Armed Security Officer Relationship Specialty Start Date End Date Monika Lehman MD [address] [place] [address] PCP - ACO Reach 07/07/22 Monika eLhman MD [address] [place] [address] PCP - General Family Medicine 08/03/22 Armed Security Officer Relationship Specialty Start Date End Date Monika Lehman MD [address] [place] [address] PCP - ACO Reach 07/07/22 Monika Lehman MD [address] [place] [address] PCP - General Family Medicine 08/03/22 Armed Security Officer Relationship Specialty Start Date End Date Monika Lehman MD [address] [place] [address] PCP - ACO Reach 07/07/22 Monika Lehman MD [address] [place] [address] PCP - General Family Medicine 08/03/22 Armed Security Officer Relationship Specialty Start Date End Date Monika Lehman MD [address] [place] [address] PCP - ACO Reach 07/07/22 Monika Lehman MD [address] [place] [address] PCP - General Family Medicine 08/03/22 Belen Barr, RN Clinical Advocate Family Medicine 03/22/24 Armed Security Officer Relationship Specialty Start Date End Date Monika Lehman MD [address] [place] [address] PCP - ACO Reach 07/07/22 Monika Lehman MD [address] [place] [address] PCP - General Family Medicine 08/03/22 Belen Barr, DELMAR Clinical Advocate Family Medicine 03/22/24 Armed Security Officer Relationship Specialty Start Date End Date Monika Lehman MD [address] [place] [address] PCP - ACO Reach 07/07/22 Monika Lehman MD [address] [place] [address] PCP - General Family Medicine 08/03/22 Belen Barr, DELMAR Clinical Advocate Family Medicine 03/22/24 Armed Security Officer Relationship Specialty Start Date End Date Monika Lehman MD [address] [place] [address] PCP - General Family Medicine 03/12/15 Aman Quiroz MD [address] [place] [place] [address] Referring Neurology 11/20/19 Armed Security Officer Relationship Specialty Start Date End Date Monika Lehman MD [address] [place] [place] [address] PCP - General Family Medicine 03/12/15 Aman Quiroz MD [address] [place] [address] Referring Neurology 11/20/19 Armed Security Officer Relationship Specialty Start Date End Date Monika Lehman MD [address] [place] [place] [address] PCP - General Family Medicine 03/12/15 Aman Quiroz MD [address] [place] [place] [address] Referring Neurology 11/20/19 Armed Security Officer Relationship Specialty Start Date End Date Monika Lehman MD [address] [place] [address] PCP - ACO Reach 07/07/22 Monika Lehman MD [address] [place] [address] PCP - General Family Medicine 08/03/22 Farida Pride LPN 05/07/24 Armed Security Officer Relationship Specialty Start Date End Date Monika Lehman MD [address] [place] [address] PCP - General Family Medicine 03/12/15 Aman Quiroz MD [address] [place] [address] Referring Neurology 11/20/19 Armed Security Officer Relationship Specialty Start Date End Date Monika Lehman MD [address] [place] [address] PCP - General Family Medicine 03/12/15 Aman Quiroz MD [address] [address] Referring Neurology 11/20/19 Armed Security Officer Relationship Specialty Start Date End Date Monika Lehman MD [address] [place] [address] PCP - General 08/14/18 [place] [address] [facility] [address] [place], [place] [id number] Therapeutic Recreation Specialist Nephrology 07/19/23 Armed Security Officer Relationship Specialty Start Date End Date Monika Lehman MD [address] [place] [address] PCP - ACO Reach 07/07/22 Monika Lehman MD [address] [address] PCP - General Family Medicine 08/03/22 Farida Pride LPN 05/07/24 Goals (unrecognized section and content) Goals may [...] abdominal location Procedures CONSULT TO GASTROENTEROLOGY OFFICE/OUTPATIENT [facility] 60-74 MINUTES Erinn Lawson MD [address] [place] [address] Referral ID Status Reason Start Date Expiration Date Visits Requested Visits Authorized [id number] Pending Review PCP Requested Referral 10/28/2021 10/28/2022 1 1 Reason Comments Orders Egd/Colonoscopy unde r MAC Reason Comments Appointment Confirmation Pre-procedure i nstructions Specialty Diagnoses / Procedures Referred By Guero t Referred To Contact ENDOSCOPY Diagnoses dx Procedures dx [facility] Endoscopy [address] [address] Referral ID Status Reason Start Date Expiration Date Visits Re quested Visits Authorized [id number] 1 Reason Comments Results Reason Comments Colon polyp Reason Onset Date Comments Refill Request 02/24/2022 Reason Comments Pre-Op Visit Reason Comments Clinical Training Specialist - Other Reason Comments Returning Patient's Call [...] of central origin Unsteadiness on feet Procedures [place] THERAPEUTIC PX 1/> AREAS EACH 15 MIN EXERCISES Aman Quiroz MD [address] [facility] [address] [place] [address] Julio Pierce, PT [address] [place] [address] Referral ID Status Reason Start Date Expiration Date V isits Requested Visits Authorized [id number] Authorized 02/17/2023 08/16/2023 30 30 Reason Comments Anxiety Reason Onset Date Comments Med Refill 02/09/2024 Reason Comments questions Reason Comments Leg Swelling Reason Comments Sinusitis Reason Onset Date Comments Med Refill 04/16/2024 Reason Comments Appointment Pre-Nuclear stress t est call Reason Comments Follow-up Chronic Kidney Disease Source Comments (unrecognize d section and content) In the event this informatio n is protected by the Federal Confidentiality of Alcohol and Drug Abuse Patient Records regulations: The Federal rules restrict any use of the information to criminally investigate or prosecute any alcohol or drug abuse patient.[facility] HealthcareIn the event this information is protected by the Federal Confidentiality of Alcohol and Drug Abuse Patient Records regulations: The Federal rules restrict any use of the information to criminally investigate or prosecute any alcohol or drug abuse patient.[facility] HealthcareIn the event this information is protected by the Federal Confidentiality of Alcohol and Drug Abuse Patient Records regulations: The Federal rules restrict any use of the information to criminally investigate or prosecute any alcohol or drug abuse patient.[facility] HealthcareIn the event this information is protected by the Federal Confidentiality of Alcohol and Drug Abuse Patient Records regulations: The Federal rules restrict any use of the information to criminally investigate or prosecute any alcohol or drug abuse patient.[facility] HealthcareIn the event this information is protected by the Federal Confidentiality of Alcohol and Drug Abuse Patient Records regulations: The Federal rules restrict any use of the information to criminally investigate or prosecute any alcohol or drug abuse patient.[facility] HealthcareIn the event this information is protected by the Federal Confidentiality of Alcohol and Drug Abuse Patient Records regulations: The Federal rules restrict any use of the information to criminally investigate or prosecute any alcohol or drug abuse patient.[facility] HealthcareIn the event this information is protected by the Federal Confidentiality of Alcohol and Drug Abuse Patient Records regulations: The Federal rules restrict any use of the information to criminally investigate or prosecute any alcohol or drug abuse patient.[facility] HealthcareIn the event this information is protected by the Federal Confidentiality of Alcohol and Drug Abuse Patient Records regulations: The Federal rules restrict any use of the information to criminally investigate or prosecute any alcohol or drug abuse patient.[facility] HealthcareIn the event this information is protected by the Federal Confidentiality of Alcohol and Drug Abuse Patient Records regulations: The Federal rules restrict any use of the information to criminally investigate or prosecute any alcohol or drug abuse patient.[facility] HealthcareIn the event this information is protected by the Federal Confidentiality of Alcohol and Drug Abuse Patient Records regulations: The Federal rules restrict any use of the information to criminally investigate or prosecute any alcohol or drug abuse patient.[facility] HealthcareIn the event this information is protected by the Federal Confidentiality of Alcohol and Drug Abuse Patient Records regulations: The Federal rules restrict any use of the information to criminally investigate or prosecute any alcohol or drug abuse patient.[facility] HealthcareIn the event this information is protected by the Federal Confidentiality of Alcohol and Drug Abuse Patient Records regulations: The Federal rules restrict any use of the information to criminally investigate or prosecute any alcohol or drug abuse patient.[facility] HealthcareIn the event this information is protected by the Federal Confidentiality of Alcohol and Drug Abuse Patient Records regulations: The Federal rules restrict any use of the information to criminally investigate or prosecute any alcohol or drug abuse patient.[facility] HealthcareIn the event this information is protected by the Federal Confidentiality of Alcohol and Drug Abuse Patient Records regulations: The Federal rules restrict any use of the information to criminally investigate or prosecute any alcohol or drug abuse patient.[facility] HealthcareIn the event this information is protected by the Federal Confidentiality of Alcohol and Drug Abuse Patient Records regulations: The Federal rules restrict any use of the information to criminally investigate or prosecute any alcohol or drug abuse patient.[facility] HealthcareIn the event this information is protected by the Federal Confidentiality of Alcohol and Drug Abuse Patient Records regulations: The Federal rules restrict any use of the information to criminally investigate or prosecute any alcohol or drug abuse patient.[facility] HealthcareIn the event this information is protected by the Federal Confidentiality of Alcohol and Drug Abuse Patient Records regulations: The Federal rules restrict any use of the information to criminally investigate or prosecute any alcohol or drug abuse patient.[facility] HealthcareIn the event this information is protected by the Federal Confidentiality of Alcohol and Drug Abuse Patient Records regulations: The Federal rules restrict any use of the information to criminally investigate or prosecute any alcohol or drug abuse patient.[facility] HealthcareIn the event this information is protected by the Federal Confidentiality of Alcohol and Drug Abuse Patient Records regulations: The Federal rules restrict any use of the information to criminally investigate or prosecute any alcohol or drug abuse patient.[facility] HealthcareIn the event this information is protected by the Federal Confidentiality of Alcohol and Drug Abuse Patient Records regulations: The Federal rules restrict any use of the information to criminally investigate or prosecute any alcohol or drug abuse patient.[facility] HealthcareIn the event this information is protected by the Federal Confidentiality of Alcohol and Drug Abuse Patient Records regulations: The Federal rules restrict any use of the information to criminally investigate or prosecute any alcohol or drug abuse patient.[facility] HealthcareIn the event this information is protected by the Federal Confidentiality of Alcohol and Drug Abuse Patient Records regulations: The Federal rules restrict any use of the information to criminally investigate or prosecute any alcohol or drug abuse patient.[facility] HealthcareIn the event this information is protected by the Federal Confidentiality of Alcohol and Drug Abuse Patient Records regulations: The Federal rules restrict any use of the information to criminally investigate or prosecute any alcohol or drug abuse patient.[facility] HealthcareIn the event this information is protected by the Federal Confidentiality of Alcohol and Drug Abuse Patient Records regulations: The Federal rules restrict any use of the information to criminally investigate or prosecute any alcohol or drug abuse patient.[facility] HealthcareIn the event this information is protected by the Federal Confidentiality of Alcohol and Drug Abuse Patient Records regulations: The Federal rules restrict any use of the information to criminally investigate or prosecute any alcohol or drug abuse patient.[facility] HealthcareIn the event this information is protected by the Federal Confidentiality of Alcohol and Drug Abuse Patient Records regulations: The Federal rules restrict any use of the information to criminally investigate or prosecute any alcohol or drug abuse patient.[facility] HealthcareIn the event this information is protected by the Federal Confidentiality of Alcohol and Drug Abuse Patient Records regulations: The Federal rules restrict any use of the information to criminally investigate or prosecute any alcohol or drug abuse patient.[facility] HealthcareIn the event this information is protected by the Federal Confidentiality of Alcohol and Drug Abuse Patient Records regulations: The Federal rules restrict any use of the information to criminally investigate or prosecute any alcohol or drug abuse patient.[facility] HealthcareIn the event this information is protected by the Federal Confidentiality of Alcohol and Drug Abuse Patient Records regulations: The Federal rules restrict any use of the information to criminally investigate or prosecute any alcohol or drug abuse patient.[facility] HealthcareIn the event this information is protected by the Federal Confidentiality of Alcohol and Drug Abuse Patient Records regulations: The Federal rules restrict any use of the information to criminally investigate or prosecute any alcohol or drug abuse patient.[facility] HealthcareIn the event this information is protected by the Federal Confidentiality of Alcohol and Drug Abuse Patient Records regulations: The Federal rules restrict any use of the information to criminally investigate or prosecute any alcohol or drug abuse patient.[facility] HealthcareIn the event this information is protected by the Federal Confidentiality of Alcohol and Drug Abuse Patient Records regulations: The Federal rules restrict any use of the information to criminally investigate or prosecute any alcohol or drug abuse patient.[facility] FOR RECORDS PERTAINING TO PATIENTS WHO ARE [...] BE BASED ON THE PRIMARY CLINICAL RECORDS. [facility] [employer] [facility]. provides no warranty or guarantee of the accuracy or completeness of information in this document.
--- OUTSIDE RECORDS SUMMARY | 2024-07-25 02:14 | XMS_ITS | Encounter Summary ---
Author Organization [facility] Address [address] [facility] [place] [address] Care Team Providers Care Big Machine Consultant Name Role Phone Jose Roberto Cleary MD Unavailable Jose Roberto Cleary MD Primary Care Provider [phone] Belen Barr RN Unavailable Farida Pride LPN Unavailable Unavailable Encounter Details Date Type Department Care Team (Late st Contact Info) Description 05/11/2023 Abstract [facility] [address] [facility] 110 [place] [address] Jose Roberto Cleary MD [address] [facility] [address] [place], [place] [address] Social History Tobacco Use Types Packs/Day Years [...] often do you attend chur ch or mormonism services? 1 to 4 times per year 09/19/2022 Do you belong to any clubs o r organizations such as congregation groups, unions, fraternal or athletic groups, or [...] and heating? Not hard at all 09/19/2022 [facility] Occupat ional Health - Occupational Stress [...] place to sleep or slept in a custodial (including now)? No 09/19/2022 Comments Unknown Sex and Gender Information Value Date Recorded Sex Assigned at Not on file Legal Sex Female 6:59 PM EDT Gender Identity Not on file Sexual Orientation Not on file documented as of this encounter Plan of Treatment Not on file documented as of this encounter Visit Diagnoses Not on filedocumented in this encounter Care Teams Big Machine Consultant Relationship Specialty Start Date End Date Jose Roberto Cleary MD [address] [facility] [address] [place] [address] PCP - ACO Reach 07/07/22 Jose Roberto Cleary MD [address] [facility] [address] [place] [address] PCP - General Family Medicine 08/03/22 Belen Barr, RN Clinical Advocate Family Medicine 03/22/24 05/07/24 Farida Pride LPN 05/07/24 documented as of this encounter
--- OUTSIDE RECORDS SUMMARY | 2024-07-25 02:14 | XMS_ITS | Encounter Summary ---
Author Organization [facility] Address [address] [facility] [place] [address] Care Team Providers Care Service Tech Name Role Phone Jose Roberto Cleary MD Unavailable Jose Roberto Cleary MD Primary Care Provider [phone] Belen Barr RN Unavailable Farida Pride LPN Unavailable Unavailable Encounter Details Date Type Department Care Team (Late st Contact Info) Description 06/07/2023 Abstract [facility] [address] [facility] 110 [place] [address] Jose Roberto Cleary MD [address] [facility] [address] [place], [place] [id number] Social History Tobacco Use Types Packs/Day Years [...] any clubs o r organizations such as religious groups, unions, fraternal or athletic groups, or [...] and heating? Not hard at all 09/19/2022 [facility] of Occupat ional Health - Occupational [...] on filedocumented in this encounter Care Teams Service Tech Relationship Specialty Start Date End Date Jose Roberto Cleary MD [address] [facility] [address] [place] [address] PCP - ACO Reach 07/07/22 Jose Roberto Cleary MD [address] [facility] [address] [place] [address] PCP - General Family Medicine 08/03/22 Belen Barr, RN Clinical Advocate Family Medicine 03/22/24 05/07/24 Farida Pride LPN 05/07/24 documented as of this encounter
--- OUTSIDE RECORDS SUMMARY | 2024-07-25 02:14 | XMS_ITS | Encounter Summary ---
Author Organization [facility] Address [address] [facility] [place] [address] Care Team Providers Care Shrink Pit Supervisor Name Role Phone Jose Roberto Cleary MD Unavailable Jose Roberto Cleary MD Primary Care Provider [phone] Belen Barr RN Unavailable Farida Pride LPN Unavailable Unavailable Encounter Details Date Type Department Care Team (Late st Contact Info) Description 09/21/2022 Abstract [facility] [address] [facility] 110 [place] [address] Jose Roberto Cleary MD [address] [facility] [address] [place], [place] [id number] Social History Tobacco Use Types Packs/Day Years [...] often do you attend chur ch or orthodoxy services? 1 to 4 times per year [...] and heating? Not hard at all 09/19/2022 [facility] of Occupat ional Health - Occupational Stress [...] on filedocumented in this encounter Care Teams Shrink Pit Supervisor Relationship Specialty Start Date End Date Jose Roberto Cleary MD [address] [facility] [address] [place] [address] PCP - ACO Reach 07/07/22 Jose Roberto Cleary MD [address] [facility] [address] [place] [address] PCP - General Family Medicine 08/03/22 Belen Barr, RN Clinical Advocate Family Medicine 03/22/24 05/07/24 Farida Pride LPN 05/07/24 documented as of this encounter
--- OUTSIDE RECORDS SUMMARY | 2024-07-25 02:14 | XMS_ITS | Encounter Summary ---
Author Organization [facility] Address [address] [facility] [place] [address] Care Team Providers Care Patent Examiner Name Role Phone Jose Roberto Cleary MD Unavailable Jose Roberto Cleary MD Primary Care Provider [phone] Belen Barr RN Unavailable [phone] Farida Pride LPN Unavailable Unavailable Encounter Details Date Type Department Care Team (Late st Contact Info) Description 04/30/2024 Abstract [facility] [address] [facility] 110 [place] [address] Jose Roberto Cleary MD 112 [facility] 110 [place] [address] Social History Tobacco Use Types Packs/Day Years [...] How often do you attend chur or congregation services? 1 to 4 times per year 09/19/2022 Do you belong to any clubs o r organizations such as spiritism groups, unions, fraternal or athletic groups, or [...] Recorded Patient Health Questionnaire-2 Score 0 04/18/2024 [facility] of Occupat ional Health - Occupational [...] place to sleep or slept in a fci (including now)? No 09/19/2022 Comments Unknown Sex and Gender Information Value Date Recorded Sex Assigned at Not on file Legal Sex Female 6:59 PM EDT Gender Identity Not on file Sexual Orientation Not on file documented as of this encounter Plan of Treatment Not on file documented as of this encounter Visit Diagnoses Not on filedocumented in this encounter Care Teams Patent Examiner Relationship Specialty Start Date End Date Jose Roberto Cleary MD [address] [facility] [address] [place] [address] PCP - ACO Reach 07/07/22 Jose Roberto Cleary MD [address] [place] [address] PCP - General Family Medicine 08/03/22 Belen Barr, RN Clinical Advocate Family Medicine 03/22/24 05/07/24 Farida Pride LPN 05/07/24 documented as of this encounter
--- OUTSIDE RECORDS SUMMARY | 2024-07-25 02:14 | XMS_ITS | Encounter Summary ---
Author Organization [facility] Address [address] [facility] [place] [address] Care Team Providers Care Stock Driver Name Role Phone Jose Roberto Cleary MD Unavailable Jose Roberto Cleary MD Primary Care Provider [phone] Belen Barr RN Unavailable [phone] Farida Pride LPN Unavailable Unavailable Encounter Details Date Type Department Care Team (Late st Contact Info) Description 03/15/2023 Orders Only [facility] [address] [place] [address] [place] [address] A, Unknown Practice [address] [place] [id number] Social History Tobacco Use Types Packs/Day Years [...] any clubs o r organizations such as orthodoxy groups, unions, fraternal or athletic groups, or [...] place to sleep or slept in a jail (including now)? No 09/19/2022 Comments Unknown Sex [...] on filedocumented in this encounter Care Teams Stock Driver Relationship Specialty Start Date End Date Jose Roberto Cleary MD [address] [facility] [address] [place] [address] PCP - ACO Reach 07/07/22 Jose Roberto Cleary MD [address] [facility] [address] [place] [address] PCP - General Family Medicine 08/03/22 Belen Barr, RN Clinical Advocate Family Medicine 03/22/24 05/07/24 Farida Pride LPN 05/07/24 documented as of this encounter
--- OUTSIDE RECORDS SUMMARY | 2024-07-25 02:14 | XMS_ITS | Encounter Summary ---
Author Organization [facility] Address [address] [place] [address] Care Team Providers Care Ceramic Tiler Name Role Phone Jose Roberto Cleary MD Unavailable Jose Roberto Cleary MD Primary Care Provider [phone] Belen Barr RN Unavailable [phone] Farida Pride LPN Unavailable Unavailable Encounter [...] often do you attend chur ch or voodoo services? 1 to 4 times per year 09/19/2022 Do you belong to any clubs o r organizations such as voodoo groups, unions, fraternal or athletic groups, or [...] and heating? Not hard at all 09/19/2022 [facility] - Occupational [...] REPORT [facility] Comment: Surgical Pathology Report Case: [id number] Authorizing Provider: Gee Horner MD Collected: 10/25/2022 [...] in one cassette. Gross examination performed at [facility], [address] [place], [place] [address], [place] [address] October 26, 2022 12:06 AM [facility] FINAL PERFORMING LAB [facility] Comment: Diagnostic interpretation performed at [facility], [address] [facility], [place] [address] CLIA# [id number] Entry Level Business Analyst: Gloria Sanz M.D. 10/25/2022 11:0 6 AM EDT 10/27/2022 8:31 AM EDT Narrative [facility] - 10/27/2022 9:58 AM EDT Specimen Type: TISSUE SPECIMEN Ordering Facility: [facility] Address: [address] [place] [id number] Original Ordering Provider: GEE HORNER us Generic External Data Provider PEGGY arellano Result Performing Organization Address City/State/[facility] Co de Phone Number [facility] [address] [place] [phone] [facility] [address] [facility] [address] [place] [address] * COLONOSCOPY (10/25/2022 10:08 AM EDT) Anatomical [...] for surveillance. Procedure Code(s): --- Professional --- 84823, Colonoscopy, flexible; with removal of tumor(s), polyp(s), or other lesion(s) by snare technique Diagnosis Code(s): --- Professional --- Z12.11, Encounter for screening for malignant neoplasm of colon Z86.010, Personal history of colonic polyps Z98.890, Other specified postprocedural states D12.2, Benign neoplasm of ascending colon CPT copyright 2020 [employer]. All rights reserved. Attending Participation: [...] for surveillance. 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 All rights reserved. Attending Participation: [...] on filedocumented in this encounter Care Teams Ceramic Tiler Relationship Specialty Start Date End Date Jose Roberto Cleary MD 112 [facility] 110 [place] [address] PCP - ACO Reach 07/07/22 Jose Roberto Cleary MD 112 [facility] 110 [place] [address] PCP - General Family Medicine 08/03/22 Belen Barr, RN Clinical Advocate Family Medicine 03/22/24 05/07/24 Farida Pride LPN 05/07/24 documented as of this encounter
--- OUTSIDE RECORDS SUMMARY | 2024-07-25 02:14 | XMS_ITS | Encounter Summary ---
Author Organization [facility] Address [address] [facility] [place] [address] Care Team Providers Care Furniture Builder Name Role Phone Jose Roberto Cleary MD Unavailable Jose Roberto Cleary MD Primary Care Provider [phone] Belen Barr RN Unavailable [phone] Farida Pride LPN Unavailable Unavailable Encounter Details Date Type Department Care Team (Late st Contact Info) Description 10/10/2022 Abstract [facility] [address] [place] [id number] Sreekanth Quiroz MD [address] [place] [address] Social History Tobacco Use Types Packs/Day Years [...] often do you attend chur ch or yazdanism services? 1 to 4 times per year 09/19/2022 Do you belong to any clubs o r organizations such as oriental orthodox groups, unions, fraternal or athletic groups, [...] and heating? Not hard at all 09/19/2022 [facility] of Occupat ional Health [...] on filedocumented in this encounter Care Teams Furniture Builder Relationship Specialty Start Date End Date Jose Roberto Cleary MD [address] [facility] 110 [place] [address] PCP - ACO Reach 07/07/22 Jose Roberto Cleary MD [address] [facility] 110 [place] [address] PCP - General Family Medicine 08/03/22 Belen Barr, RN Clinical Advocate Family Medicine 03/22/24 05/07/24 Farida Pride LPN 05/07/24 documented as of this encounter
--- OUTSIDE RECORDS SUMMARY | 2024-07-25 02:14 | XMS_ITS | Encounter Summary ---
Author Organization [facility] Address [address] [facility] [place] [address] Care Team Providers Care Bioinformatics Scientist Name Role Phone Jose Roberto Cleary MD Unavailable Jose Roberto Cleary MD Primary Care Provider [phone] Belen Barr RN Unavailable [phone] Farida Pride LPN Unavailable Unavailable Encounter Details Date Type Department Care Team (Late st Contact Info) Description 01/19/2024 Abstract [facility] 112 [facility] 110 [place] [id number] Jose Roberto Cleary MD 112 [facility] 110 [place] [address] Social History Tobacco Use Types Packs/Day Years [...] How often do you attend chur or sikhism services? 1 to 4 times per year 09/19/2022 Do you belong to any clubs o r organizations such as confucianist groups, unions, fraternal or athletic groups, or [...] Recorded Patient Health Questionnaire-2 Score 0 01/17/2024 [facility] Occupat ional Health - [...] place to sleep or slept in a retirement (including now)? No 09/19/2022 Comments Unknown Sex and Gender Information Value Date Recorded Sex Assigned at Not on file Legal Sex Female 6:59 PM EDT Gender Identity Not on file Sexual Orientation Not on file documented as of this encounter Plan of Treatment Not on file documented as of this encounter Visit Diagnoses Not on filedocumented in this encounter Care Teams Bioinformatics Scientist Relationship Specialty Start Date End Date Jose Roberto Cleary MD [address] [facility] 110 [place] [address] PCP - ACO Reach 07/07/22 Jose Roberto Cleary MD [address] [place] [place] [address] PCP - General Family Medicine 08/03/22 Belen Barr, RN Clinical Advocate Family Medicine 03/22/24 05/07/24 Farida Pride LPN 05/07/24 documented as of this encounter
--- OUTSIDE RECORDS SUMMARY | 2024-07-25 02:14 | XMS_ITS | Encounter Summary ---
Author Organization [facility] Address [address] [place] [address] Care Team Providers Care Floor Scraper Name Role Phone Jose Roberto Cleary MD Unavailable Jose Roberto Cleary MD Primary Care Provider [phone] Belen Barr RN Unavailable [phone] Farida Pride LPN Unavailable Unavailable Reason for Visit * Reason Comments Med Refill Encounter Details Date Type Department Care Team (Late st Contact Info) Description 11/25/2022 Refill [facility] [address] [place] [address] Erica Sierra PA [address] [facility] 110 [place] [address] Spondylosis without myelopathy or radiculopathy, [...] How often do you attend chur or church services? 1 to 4 times per year 09/19/2022 Do you belong to any clubs o r organizations such as taoist groups, unions, fraternal or athletic groups, or [...] place to sleep or slept in a longterm (including now)? No 09/19/2022 Comments Unknown Sex [...] unspecified documented in this encounter Care Teams Floor Scraper Relationship Specialty Start Date End Date Jose Roberto lCeary MD [address] [address] PCP - ACO Reach 07/07/22 Jose Roberto Cleary MD [address] [address] PCP - General Family Medicine 08/03/22 Belen Barr, RN Clinical Advocate Family Medicine 03/22/24 05/07/24 Farida Pride LPN 05/07/24 documented as of this encounter
--- OUTSIDE RECORDS SUMMARY | 2024-07-25 02:14 | XMS_ITS | Encounter Summary ---
Author Organization [facility] Address [address] [facility] [place] [address] Care Team Providers Care Agricultural Agent Name Role Phone Jose Roberto Cleary MD Unavailable Jose Roberto Cleary MD Primary Care Provider Belen Barr RN Unavailable Farida Pride LPN Unavailable Unavailable Encounter Details Date Type Department Care Team (Late st Contact Info) Description 08/18/2022 Abstract [facility] 112 [facility] 170 [place] [address] Julio Pierce, PT [address] [facility] [place] [address] Social History Tobacco Use Types Packs/Day Years [...] on filedocumented in this encounter Care Teams Agricultural Agent Relationship Specialty Start Date End Date Jose Roberto Cleary MD [address] [facility] 110 [place] [address] PCP - ACO Reach 07/07/22 Jose Roberto Cleary MD [address] [address] PCP - General Family Medicine 08/03/22 Belen Barr, RN Clinical Advocate Family Medicine 03/22/24 05/07/24 Farida Pride LPN 05/07/24 documented as of this encounter
--- OUTSIDE RECORDS SUMMARY | 2024-07-25 02:14 | XMS_ITS | Encounter Summary ---
Author Organization [facility] Address [address] [place] [address] Phone Care Team Providers Care Mutual Fund Sales Agent Name Role Phone Jose Roberto Cleary MD Primary Care Provider [phone] Daniel Montano MD Unavailable [phone] Encounter Details Date Type Department Care Team (Late st Contact Info) Description 03/11/2024 Scanned Document [facility] [address] [place] [address] Scanning, Generic Provider Social History [...] Description 07/24/2025 12:30 PM EDT Office Visit [facility] [address] [facility] [address] [place] [address] [place] [address] [place] [address] [address] [place] [id number] documented as of this encounter Visit Diagnoses Not on filedocumented in this encounter Additional Health Concerns Assessment Noted Time A fall risk assessment has been complete d for the patient 07/21/2023 11:10 AM EDT documented as of this encounter Care Teams Mutual Fund Sales Agent Relationship Specialty Start Date End Date Jose Roberto Cleary MD 112 [facility] 110 [place] [address] PCP - General 08/14/18 [place] [address] [facility] [address] [place], [place] [id number] Business Services Specialist Sales Nephrology 07/19/23 documented as of this encounter
--- OUTSIDE RECORDS SUMMARY | 2024-07-25 02:14 | XMS_ITS | Encounter Summary ---
Author Organization [facility] Address [address] [place] [address] Phone Care Team Providers Care Band Ripsaw Operator Name Role Phone Jose Roberto Cleary MD Primary Care Provider [phone] Daniel Montano MD Unavailable [phone] Encounter Details Date Type Department Care Team (Late st Contact Info) Description 07/18/2024 Scanned Document [facility] [address] [place] [address] Scanning, Generic Provider Social History [...] Description 07/24/2025 12:30 PM EDT Office Visit [facility] [address] [facility] [address] [place] [address] [place] [address] [facility] [address] [place] [address] documented as of this encounter Visit Diagnoses Not on filedocumented in this encounter Additional Health Concerns Assessment Noted Time A fall risk assessment has been complete d for the patient 07/18/2024 1:26 PM EDT documented as of this encounter Care Teams Band Ripsaw Operator Relationship Specialty Start Date End Date Jose Roberto Cleary MD 112 [facility] 110 [place] [address] PCP - General 08/14/18 [place] [address] [facility] [address] [place] [address] Software Requirements Engineer Nephrology 07/19/23 documented as of this encounter
--- OUTSIDE RECORDS SUMMARY | 2024-07-25 02:14 | XMS_ITS | Encounter Summary ---
Author Organization [facility] Address [address] [place] [address] Care Team Providers Care Case Advocate Name Role Phone Jose Roberto Cleary MD Unavailable Jose Roberto Cleary MD Primary Care Provider [phone] Belen Barr RN Unavailable [phone] Farida Pride LPN Unavailable Unavailable Reason for Visit * Reason Comments Med Refill Encounter Details Date Type Department Care Team (Late st Contact Info) Description 09/19/2022 Refill [facility] [address] [place] [address] Erica Sierra PA [address] [email or web address] 110 [place] [address] Spondylosis without myelopathy or radiculopathy, [...] How often do you attend chur or mormonism services? 1 to 4 times per year 09/19/2022 Do you belong to any clubs o r organizations such as hindu groups, unions, fraternal or athletic groups, or [...] and heating? Not hard at all 09/19/2022 [facility] of Occupat ional Health - Occupational [...] place to sleep or slept in a mcc (including now)? No 09/19/2022 Comments Unknown Sex [...] unspecified documented in this encounter Care Teams Case Advocate Relationship Specialty Start Date End Date Jose Roberto Cleary MD [address] [facility] [[email or web address] 110 [place] [address] PCP - ACO Reach 07/07/22 Jose Roberto Cleary MD [address] [email or web address] 110 [place] [address] PCP - General Family Medicine 08/03/22 Belen Barr, RN Clinical Advocate Family Medicine 03/22/24 05/07/24 Farida Pride LPN 05/07/24 documented as of this encounter
--- OUTSIDE RECORDS SUMMARY | 2024-07-25 02:14 | XMS_ITS | Encounter Summary ---
Author Organization [facility] Address [address] [facility] [place] [address] Care Team Providers Care Litigation Legal Secretary Name Role Phone Jose Roberto Cleary MD Unavailable Jose Roberto Cleary MD Primary Care Provider [phone] Belen Barr RN Unavailable Farida Pride LPN Unavailable Unavailable Encounter Details Date Type Department Care Team (Late st Contact Info) Description 06/07/2023 Abstract [facility] [address] [facility] 110 [place] [address] Jose Roberto Cleary MD [address] [facility] 110 [place], [place] [id number] Social History Tobacco Use Types Packs/Day Years [...] often do you attend chur ch or rastafari services? 1 to 4 times per year 09/19/2022 Do you belong to any clubs o r organizations such as sikh groups, unions, fraternal or athletic groups, or [...] and heating? Not hard at all 09/19/2022 [facility] Occupat ional Health - [...] on filedocumented in this encounter Care Teams Litigation Legal Secretary Relationship Specialty Start Date End Date Jose Roberto Cleary MD [address] [facility] 110 [place] [address] PCP - ACO Reach 07/07/22 Jose Roberto Cleary MD [address] [facility] 110 [place] [address] PCP - General Family Medicine 08/03/22 Belen Barr, RN Clinical Advocate Family Medicine 03/22/24 05/07/24 Farida Pride LPN 05/07/24 documented as of this encounter
--- OUTSIDE RECORDS SUMMARY | 2024-07-25 02:14 | XMS_ITS | Encounter Summary ---
Author Organization [facility] Address [address] [place] [address] Care Team Providers Care Sales Engagement Executive Name Role Phone Jose Roberto Lehman MD Unavailable Jose Roberto Lehman MD Primary Care Provider [phone] Belen Barr RN Unavailable [phone] Farida Pride LPN Unavailable Unavailable Encounter Details Date Type Department Care Team (Late st Contact Info) Description 03/15/2023 Clinisync Result Encounter [facility] External Department Unsolicited Jose Roberto Lehman MD [address] [facility] 110 [place] [address] Social History Tobacco Use Types Packs/Day Years [...] often do you attend chur ch or scientologist services? 1 to 4 times per year 09/19/2022 Do you belong to any clubs o r organizations such as taoism groups, unions, fraternal or athletic groups, or [...] and heating? Not hard at all 09/19/2022 [facility] of Occupat ional Health - Occupational [...] AM EST Narrative 03/15/2023 11:47 [place] [address] CT Scan Report Signed Patient: REBECA JIMENEZ MR#: [id number] : 1950 Acct:[id number] Age/Sex: 72 / F ADM Date: 03/15/23 Loc: LAB Attending Dr: JOSE ROBERTO LEHMAN Ordering Physician: JOSE ROBERTO LEHMAN Date of Service: 03/15/23 Procedure(s): CT angio abdomen pelvis Accession Number(s): [id number] cc: JOSE ROBERTO LEHMAN [place] [address] Patient Name: REBECA JIMENEZ MRN: [facility]:[id number] date: 1950 Sex: F Assigned Patient Location: LAB Current Patient Location: LAB Accession/Order Number: [id number] Exam Date: 03/15/2023 09:15 Report Date: 03/15/2023 [...] Signed By: 03/15/23 1147 DD/ 1144 TD/TT: Dry Chain Offbearer: Procedure Note Radiology, Radiologist, - 03/15/[address] [address] [address] Scan Report Signed Patient: REBECA JIMENEZ PMR#: [id number] : 1950Acct:[id number] Age/Sex: 72 / FADM Date: 03/15/23 Loc: LAB Attending Dr: JOSE ROBERTO LEHMAN Ordering Physician: JOSE ROBERTO LEHMAN Date of Service: 03/15/23 Procedure(s): CT angio abdomen pelvis Accession Number(s): [id number] cc: JOSE ROBERTO LEHMAN [address] [address] Patient Name: REBECA JIMENEZ MRN: [id number] date: 1950 Sex: F Assigned Patient Location: LAB Current Patient Location: LAB Accession/Order Number: [id number] Exam Date: 03/15/2023 09:15 Report Date: 03/15/2023 [...] M.D. Signed By:03/15/23 1147 DD/ 1144 TD/TT: Dry Chain Offbearer: Jose Roberto Lehman MD [facility] Final Result documented in this encounter Visit Diagnoses Not on filedocumented in this encounter Care Teams Sales Engagement Executive Relationship Specialty Start Date End Date Jose Roberto Lehman MD [address] [address] PCP - ACO Reach 07/07/22 Jose Roberto Lehman MD [address] [address] PCP - General Family Medicine 08/03/22 Belen Barr, DELMAR Clinical Advocate Family Medicine 03/22/24 05/07/24 Farida Pride LPN 05/07/24 documented as of this encounter
--- OUTSIDE RECORDS SUMMARY | 2024-07-25 02:14 | XMS_ITS | Encounter Summary ---
Author Organization [facility] Address [address] [place] [address] Phone Care Team Providers Care Flatwork Tier Name Role Phone Jose Roberto Cleary MD Primary Care Provider [phone] Daniel Montano MD Unavailable Encounter Details Date Type Department Care Team (Late st Contact Info) Description 11/20/2023 Scanned Document [facility] [address] [place] [address] Scanning, Generic Provider Social History [...] Description 07/24/2025 12:30 PM EDT Office Visit [facility] [address] [facility] [address] [place] [address] Daniel [place]ano [place] [address] [place] [address] [address] [place] [id number] documented as of this encounter Visit Diagnoses Not on filedocumented in this encounter Additional Health Concerns Assessment Noted Time A fall risk assessment has been complete d for the patient 07/21/2023 11:10 AM EDT documented as of this encounter Care Teams Flatwork Tier Relationship Specialty Start Date End Date Jose Roberto Cleary MD 112 [facility] 110 [place] [address] PCP - General 08/14/18 [place] [address] [facility] [address] [place], [place] [address] Air Defense [employer]illery Senior Sergeant Nephrology 07/19/23 documented as of this encounter
--- OUTSIDE RECORDS SUMMARY | 2024-07-25 02:14 | XMS_ITS | Encounter Summary ---
Author Organization [facility] Address [address] [facility] [place] [address] Care Team Providers Care Criminal Court Judge Name Role Phone Jose Roberto Cleary MD Unavailable Jose Roberto Cleary MD Primary Care Provider [phone] Belen Barr RN Unavailable [phone] Farida Pride LPN Unavailable Unavailable Encounter Details Date Type Department Care Team (Late st Contact Info) Description 12/20/2022 Abstract [facility] [address] [facility] 110 [place] [address] Jose Roberto Cleary MD 112 [facility] 110 [place] [address] Social History Tobacco Use Types [...] any clubs o r organizations such as religion groups, unions, fraternal or athletic groups, or [...] and heating? Not hard at all 09/19/2022 [facility] of Occupat ional Health - Occupational [...] place to sleep or slept in a residential (including now)? No 09/19/2022 Comments Unknown Sex and Gender Information Value Date Recorded Sex Assigned at Not on file Legal Sex Female 6:59 PM EDT Gender Identity Not on file Sexual Orientation Not on file documented as of this encounter Plan of Treatment Not on file documented as of this encounter Visit Diagnoses Not on filedocumented in this encounter Care Teams Criminal Court Judge Relationship Specialty Start Date End Date Jose Roberto Cleary MD [address] [facility] 110 [place] [address] PCP - ACO Reach 07/07/22 Jose Roberto Cleary MD [address] [facility] 110 [place] [address] PCP - General Family Medicine 08/03/22 Belen Barr, RN Clinical Advocate Family Medicine 03/22/24 05/07/24 Farida Pride LPN 05/07/24 documented as of this encounter
--- OUTSIDE RECORDS SUMMARY | 2024-07-25 02:14 | XMS_ITS | Clinical Summary ---
Author Organization [facility] Address [address] [place] [address] Phone Care Team Providers Care Trade Specialist Name Role Phone Jose Roberto Cleary MD Primary Care Provider [phone] Daniel Montano MD Unavailable [phone] Allergies Active Allergy Reactions Criticality Noted [...] Description 07/18/2024 12:00 PM EDT Office Visit [facility] [address] [facility] [address] [place] [address] Daniel Montano MD Essential hypertension (Primary Dx) 07/18/2024 Scanned Document [facility] [address] [address] [place] [address] Scanning, Generic Provider 07/18/2024 Travel from Last 3 Months Immunizations [...] Description 07/24/2025 12:30 PM EDT Office Visit [facility] [address] [facility] [address] [place] [address] [place] [address] [facility] [address] [place] [address] Health Maintenance Due Date Last Done Comments [...] B ANTHEM MEDICARE SELECT SUPPLEMENT Care Teams Trade Specialist Relationship Specialty Start Date End Date Jose Roberto Cleary MD 112 [facility] 110 [place] [address] PCP - General 08/14/18 [place] [address] [facility] [address] [place] [address] Insulator Technician Nephrology 07/19/23
--- OUTSIDE RECORDS SUMMARY | 2024-07-25 02:14 | XMS_ITS | Encounter Summary ---
Author Organization [facility] Address [facility] [place] [address] Care Team Providers Care Subway Operator Name Role Phone Jose Roberto Cleary MD Primary Care Provider +1- [phone] Sreekanth Quiroz MD Unavailable Source Comments In the event this information is protected by the Federal Confidentiality of Alcohol and Drug AbusePatient Records regulations: The Federal rules restrict any use of the information to criminally investigate or prosecute any alcohol or drug abuse patient.[facility] Encounter Details Date Type Department Care Team (Late st Contact Info) Description 01/02/2022 Patient Msg Gastroenterology [address] [id number] Taz Faith MD [address] [place] [address] One other thing Social History [...] Office Visit Vascular Surgery [address] [facility] [address] [place] [address] US CAROTID ARTERIES TORIN 11/18/2024 10:00 AM EDT Office Visit Vascular Surgery [address] [facility] [address] [place] [address] US ABD AORTA COMPLETE VAS 11/18/2024 11:00 AM EDT Office Visit Vascular Surg Dept [address] [facility] [address] [place] [address] Chris Esquivel MD [address] [address] 6 mth US f/u documented as of this encounter Visit Diagnoses Not on filedocumented in this encounter Care Teams Subway Operator Relationship Specialty Start Date End Date Jose Roberto Cleary MD [address] [address] PCP - General Family Medicine 03/12/15 Sreekanth Quiroz MD [address] [facility] [address] [place] [address] Referring Neurology 11/20/19 documented as of this encounter
--- OUTSIDE RECORDS SUMMARY | 2024-07-25 02:14 | XMS_ITS | Clinical Summary ---
Author Organization [facility] Address [address] [place] [address] Care Team Providers Care Tar Heater Operator Name Role Phone Jose Roberto Cleary MD Primary Care Provider +1- [phone] Sreekanth Quiroz MD Unavailable Allergies Active Allergy [...] Care Team Description 05/29/2024 Telephone Cardiology [address] [facility] [address] [place] [address] Oliver Torres MD Patient Update 05/28/2024 12:00 PM EDT Office Visit Cardiology [address] [facility] [address] [place], [place] [id number] Encounter for screening for cardiovascular disorders; Encounter for preprocedural cardiovascular examination 05/27/2024 Telephone Cardiology [address] [facility] [address] [place], [place] [id number] Oliver Torres MD Appointment (Pre-Nuclear stress test call) 05/24/2024 Travel 05/09/2024 2:15 PM EDT Office Visit Vascular Surg Dept [address] [facility] [address] [place] [address] Oliver Torres MD Carotid stenosis, asymptomatic, bilateral (Primary Dx); Pararenal abdominal aortic aneurysm (AAA) without rupture; Encounter for screening for cardiovascular disorders; Encounter for preprocedural cardiovascular examination 05/08/2024 Patient Msg Internal Medicine [address] [place] [address] Provider, [facility] Vascular Surgery Appoitment Notification 05/08/2024 Telephone Internal Medicine [address] [place] [address] Erinn Lawson MD from Last [...] is lower risk 6 05/09/2024 Data from: https://www.neighborhoodatlas.medicine.[facility].edu/. Last address used for calculation [...] AM EDT Office Visit Vascular Surgery [address] [place] [address] US CAROTID ARTERIES TORIN 11/18/2024 10:00 AM EDT Office Visit Vascular Surgery [address] [place] [address] US ABD AORTA COMPLETE VAS 11/18/2024 11:00 AM EDT Office Visit Vascular Surg Dept [address] [place] [address] Oliver Torres MD [address] [facility] [address] [place] [address] 6 mth US f/u Health Maintenance Due Date Last Done Comments Annual PCP Team Chronic Dise ase Visit 12/09/1967 Hepatitis C Screening 12/09/1967 DTaP,Tdap,Td Vaccine (1 - Tdap) [address] Colonography 1994 Cologuard (FIT-DNA) 1994 Fecal Occult Blood 1994 Lipid Screening 1994 Sigmoidoscopy 1994 Pneumococcal Vaccine: 50+ (1 of 1 - PCV) 12/09/1999 Shingrix Vaccine (1 of 2) 12/09/1999 Medicare Annual Wellness Visit 11/13/2014 Bone Density Screening 2014 Serum Creatinine 02/24/2023 02/24/2022, , 04/16/2020, Additional history exists Covid-19 Vaccine (2023-2 5 season) 2023 01/14/2021, 04/14/2020, 03/24/2020 Colonoscopy [...] later. See administered radiotracer and doses below. [facility] Date of service: 05/28/2024 [...] Final * * * Stress ECG Report: [facility] Date of service: 05/28/2024 [...] 138/74 mmHg. The double product achieved was [address]. Medications: Last Used AMLODIPINE LASIX POTASSIUM SPIRONOLACTONE [...] (HRR): 10 bpm Rate Pressure Product (RPP): 17312 Stress Exercise Observations: Reason for test termination: [...] * * Final * * * Stress Steam Pressure Chamber Operator Report: [facility] Date of service: 05/28/2024 1:25:55 PM Supervising physician: Tu Fuller MD PATIENT: Name: REBECA JIMENEZ Age: 73 years Gender: F The supervising physician was in the department and immediately available. * * * Final * * * RP Tobacco Baler: ADARSH Transcribe Date/Time: May 28 2024 1:25P Dictated by : GÓMEZ RIVAS MD This examination was interpreted and the report reviewed and electronically signed by: GÓMEZ RIVAS MD on May 28 2024 5:00PM EST Procedure Note Provider, [facility] [place] - 05/28/2024 * * *Final Report* * [...] later. See administered radiotracer and doses below. [facility] Date of service: 05/28/2024 [...] Final * * * Stress ECG Report: [facility] Date of service: 05/28/2024 [...] 138/74 mmHg. The double product achieved was [address]. Medications: Last Used AMLODIPINE LASIX POTASSIUM SPIRONOLACTONE [...] (HRR): 10 bpm Rate Pressure Product (RPP): 49954 Stress Exercise Observations: Reason for test termination: [...] * * Final * * * Stress Steam Pressure Chamber Operator Report: [facility] Date of service: 05/28/2024 1:25:55 PM Supervising physician: Tu Fuller MD PATIENT: Name: REBECA JIMENEZ Age: 73 years Gender: F The supervising physician was in the department and immediatelyavailable. * * * Final * * * RP Tobacco Baler: ADARSH Transcribe Date/Time: May 28 2024 1:25P Dictated by : GÓMEZ RIVAS MD This examination was interpreted and the report reviewed and electronically signed by: GÓMEZ RIVAS MD on May 28 2024 5:00PM EST us Oliver Torres MD NM-PAMA Final Result * ECHO (05/28/2024 12:53 PM [...] * * * Final * * * [facility] - 05/28/2024 4:24 PM EDT Echocardiography Report: Transthoracic Echo [facility] Date of service: 05/28/2024 12:53:37 PM DRIER MACHINE OPERATOR Ordering physician: OLIVER TORRES Indication: Re-evaluation of known ascending aortic dilatation to establish baseline Technologist: Anna Sanz [facility] Interpreting physician: Kenia Christianson MD PATIENT: [...] cavity is normal in size. MITRAL VALVE [place] mitral valve. There is mild mitral annular calcification observed posterior. There is trace mitral valve regurgitation. There is mild thickening. There is mild calcification. The peak mitral E/A ratio is 0.55. The average mitral E/e' ratio is 6.4. TRICUSPID VALVE [place] tricuspid valve. There is trace tricuspid valve [...] MD ECHO Final Result Performing Organization Address [facility] Co de Phone Number [facility] [address] [place] [address] * LVEF TRANSTHORACIC ECHO (05/28/2024 12:53 PM EDT) LV Ejection Fraction 56 % [facility] Comment: (3D) EF > 54 An LV Ejection Fraction of > 50% is normal 05/28/2024 12:5 3 PM EDT Oliver Torres MD LVEF RESULTS Final Result Performing Organization Address [facility] Co de Phone Number [facility] [address] [place] [address] * COLONOSCOPY DIAGNOSTIC (10/25/2022 10:08 AM EDT) [...] for surveillance. Procedure Code(s): --- Professional --- 61302, Colonoscopy, flexible; with removal of tumor(s), polyp(s), or other lesion(s) by snare technique Diagnosis Code(s): --- Professional --- Z12.11, Encounter for screening for malignant neoplasm of colon Z86.010, Personal history of colonic polyps Z98.890, Other specified postprocedural states D12.2, Benign neoplasm of ascending colon CPT copyright 2020 [employer]. All rights reserved. Attending Participation: [...] - 8.0 g/dL 02/24/2022 8:[address] [facility] Albumin 3.8(L) 3.9 - 4.9 g/dL 02/24/2022 8:[address] [facility] Calcium, Total 10.0 8.5 - 10.2 mg/dL 02/24/2022 8:[address] [facility] Bilirubin, Total 0.4 0.2 - 1.3 mg/dL 02/24/2022 8:[address] [facility] Alkaline Phosphatase 152(H) 34 - 123 U/L 02/24/2022 8:[address] [facility] AST 30 13 - 35 U/L 02/24/2022 8:[address] [facility] ALT 17 7 - 38 U/L 02/24/2022 8:[address] [facility] Glucose 98 74 - 99 mg/dL 02/24/2022 8:[address] [facility] Comment: The [employer] Diabetes Association (ADA) provides guidance for cutoff [...] Standards of Medical Care in Diabetes 2016, [employer] Diabetes Association. Diabetes Care. 2016.39(Suppl 1). BUN 20 7 - 21 mg/dL 02/24/2022 8:[address] [facility] Creatinine 0.82 0.58 - 0.96 mg/dL 02/24/2022 8:[address] [facility] Sodium 138 136 - 144 mmol/L 02/24/2022 8:36 PM [facility] Potassium 4.5 3.7 - 5.1 mmol/L 02/24/2022 8:36 PM [facility] Chloride 105 97 - 105 mmol/L 02/24/2022 8:[address] [facility] CO2 22 22 - 30 mmol/L 02/24/2022 8:[address] [facility] Anion Gap 11 9 - 18 mmol/L 02/24/2022 8:[address] [facility] Estimated Glomerular Filtration Rate 76 >=60 mL/min/1.7 3m 02/24/2022 8:36 PM [facility] Comment:Estimated Glomerular Filtration Rate (eGFR) is [...] I Pradeep Garcia MD LABORATORY Final Result [facility] [address] [place] [address], from Last 3 Months or Most Recently Relevant to Health Maintenance Insurance MEDICARE [address] MEDICARE SUPPLEMENT Care Teams Tar Heater Operator Relationship Specialty Start Date End Date Jose Roberto Cleary MD [address] [facility] [address] [place] [address] PCP - General Family Medicine 03/12/15 Sreekanth Quiroz MD [address] [facility] [address] [place] [address] Referring Neurology 11/20/19
--- OUTSIDE RECORDS SUMMARY | 2024-07-25 02:14 | XMS_ITS | Encounter Summary ---
Author Organization [facility] Address [address] [facility] [address] Care Team Providers Care Compliance Technician Name Role Phone Jose Roberto Cleary MD Unavailable Jose Roberto Cleary MD Primary Care Provider [phone] Belen Barr RN Unavailable [phone] Farida Pride LPN Unavailable Unavailable Encounter Details Date Type Department Care Team (Late st Contact Info) Description 12/20/2022 Abstract [facility] [address] [facility] 110 [place] [address] Jose Roberto Cleary MD [address] [facility] 110 [place] [address] Social History Tobacco Use Types [...] any clubs o r organizations such as mandaen groups, unions, fraternal or athletic groups, or [...] and heating? Not hard at all 09/19/2022 [facility] - Occupational [...] on filedocumented in this encounter Care Teams Compliance Technician Relationship Specialty Start Date End Date Jose Roberto Cleary MD [address] [facility] 110 [place] [address] PCP - ACO Reach 07/07/22 Jose Roberto Cleary MD [address] [facility] 110 [place] [address] PCP - General Family Medicine 08/03/22 Belen Barr, RN Clinical Advocate Family Medicine 03/22/24 05/07/24 Farida Pride LPN 05/07/24 documented as of this encounter
--- OUTSIDE RECORDS SUMMARY | 2024-07-25 02:14 | XMS_ITS | Encounter Summary ---
Author Organization [facility] Address [address] [facility] [place] [address] Care Team Providers Care Holistic Specialist Name Role Phone Jose Roberto Cleary MD Unavailable Jose Roberto Cleary MD Primary Care Provider [phone] Belen Barr RN Unavailable Farida Pride LPN Unavailable Unavailable Encounter Details Date Type Department Care Team (Late st Contact Info) Description 08/10/2023 Abstract [facility] [address] [facility] [address] [place] [address] Jose Roberto Cleary MD [address] [facility] [address] [place], [place] [id number] Social History Tobacco Use Types Packs/Day Years [...] often do you attend chur ch or jain services? 1 to 4 times per year 09/19/2022 Do you belong to any clubs o r organizations such as rastafari groups, unions, fraternal or athletic groups, or [...] Recorded Patient Health Questionnaire-2 Score 0 08/07/2023 [facility] - Occupational Stress Questionnaire Answer [...] on filedocumented in this encounter Care Teams Holistic Specialist Relationship Specialty Start Date End Date Jose Roberto Cleary MD [address] [facility] [address] [place] [address] PCP - ACO Reach 07/07/22 Jose Roberto Cleary MD [address] [facility] [address] [place] [address] PCP - General Family Medicine 08/03/22 Belen Barr, RN Clinical Advocate Family Medicine 03/22/24 05/07/24 Farida Pride LPN 05/07/24 documented as of this encounter
--- OUTSIDE RECORDS SUMMARY | 2024-07-25 02:14 | XMS_ITS | Encounter Summary ---
Author Organization [facility] Address [address] [place] [address] Phone Care Team Providers Care Presentation Designer Name Role Phone Jose Roberto Cleary MD Primary Care Provider [phone]- [phone] Daniel Montano MD Unavailable [phone] Encounter Details Date Type Department Care [...] Description 07/24/2025 12:30 PM EDT Office Visit [facility] [address] [facility] [address] [place] [address] [place] [address] [place] [address] [address] [place] [address] documented as of this encounter Visit Diagnoses Not on filedocumented in this encounter Additional Health Concerns Assessment Noted Time A fall risk assessment has been complete d for the patient 07/18/2024 1:26 PM EDT documented as of this encounter Care Teams Presentation Designer Relationship Specialty Start Date End Date Jose Roberto Cleary MD 112 [facility] 110 [place] [address] PCP - General 08/14/18 [place] [address] [place] [address] Blow Mold Operator Nephrology 07/19/23 documented as of this encounter
--- OUTSIDE RECORDS SUMMARY | 2024-07-25 02:14 | XMS_ITS | Encounter Summary ---
Author Organization [facility] Address [address] [place] [address] Phone Care Team Providers Care Welder Plasma Arc Name Role Phone Jose Roberto Cleary MD Primary Care Provider [phone]- [phone] Daniel Montano MD Unavailable [phone] Encounter Details Date Type Department Care Team (Late st Contact Info) Description 07/24/2023 Scanned Document [facility] [address] [place] [address] Scanning, Generic Provider Social History [...] Description 07/24/2025 12:30 PM EDT Office Visit [facility] [address] [facility] [address] [place] [address] [place] [address] [facility] [address] [place] [address] documented as of this encounter Visit Diagnoses Not on filedocumented in this encounter Additional Health Concerns Assessment Noted Time A fall risk assessment has been complete d for the patient 07/21/2023 11:10 AM EDT documented as of this encounter Care Teams Welder Plasma Arc Relationship Specialty Start Date End Date Jose Roberto Cleary MD 112 [facility] 110 [place] [address] PCP - General 08/14/18 [place] [address] [facility] [address] [place] [address] Banjo Repair Person Nephrology 07/19/23 documented as of this encounter
--- OUTSIDE RECORDS SUMMARY | 2024-07-25 02:14 | XMS_ITS | Encounter Summary ---
Author Organization [facility] Address [address] [place] [address] Phone Care Team Providers Care Paper Cutter Name Role Phone Jose Roberto Cleary MD Primary Care Provider [phone]- [phone] Daniel Montano MD Unavailable [phone] Encounter Details Date Type Department Care Team (Late st Contact Info) Description 07/31/2023 Scanned Document [facility] [address] [place] [place] [address] Scanning, Generic Provider Social History [...] Office Visit [facility] [address] [facility] [address] [place] [address] [place] [address] [facility] [address] [place] [address] documented as of this encounter Visit Diagnoses Not on filedocumented in this encounter Additional Health Concerns Assessment Noted Time A fall risk assessment has been complete d for the patient 07/21/2023 11:10 AM EDT documented as of this encounter Care Teams Paper Cutter Relationship Specialty Start Date End Date Jose Roberto Cleary MD [address] [facility] 110 [place] [address] PCP - General 08/14/18 [place] [address] [facility] [address] [place] [address] Certified Financial Planner Nephrology 07/19/23 documented as of this encounter
--- OUTSIDE RECORDS SUMMARY | 2024-07-25 02:15 | XMS_ITS | Encounter Summary ---
Author Organization [facility] Address [address] [place] [address] Care Team Providers Care Plastic Molding Operator Name Role Phone Jose Roberto Cleary MD Primary Care Provider [phone] Sreekanth Quiroz MD Unavailable Source Comments In the event this information is protected by the Federal Confidentiality of Alcohol and Drug AbusePatient Records regulations: The Federal rules restrict any use of the information to criminally investigate or prosecute any alcohol or drug abuse patient.[facility] Encounter Details Date Type Department Care Team (Late st Contact Info) Description 03/30/2022 Patient Msg Colorectal Surgery [address] [id number] Melody Hernandez, KIRILL.SEWER PIPE LAYER [address] [place] [address] Appointment Social History Tobacco Use [...] N ot on file 02/25/2022 Data from: https://www.neighborhoodatlas.medicine.[facility].edu/. Last address used for calculation [address] [...] AM EDT Office Visit Vascular Surgery [address] [place] [address] US CAROTID ARTERIES TORIN 11/18/2024 10:00 AM EDT Office Visit Vascular Surgery [address] [facility] [address] [place] [address] US ABD AORTA COMPLETE VAS 11/18/2024 11:00 AM EDT Office Visit Vascular Surg Dept [address] [facility] [address] [place] [address] Chris Esquivel MD [address] [facility] [address] [place] [address] 6 mth [place] f/u documented as of this encounter Visit Diagnoses Not on filedocumented in this encounter Care Teams Plastic Molding Operator Relationship Specialty Start Date End Date Jose Roberto Cleary MD [address] [facility] 110 [place] [address] PCP - General Family Medicine 03/12/15 Sreekanth Quiroz MD [address] [facility] 110 [place] [address] Referring Neurology 11/20/19 documented as of this encounter
--- OUTSIDE RECORDS SUMMARY | 2024-07-25 02:15 | XMS_ITS | Encounter Summary ---
Author Organization [facility] Address [address] [place] [address] Phone Care Team Providers Care Intermediate Designer Name Role Phone Jose Roberto Cleary MD Primary Care Provider [phone] Daniel Montano MD Unavailable [phone] Encounter Details Date Type Department Care Team (Late st Contact Info) Description 07/15/2021 Orders Only [facility] [address] [place] [place] [address] Conversion, Onbase Social History Tobacco Use Types [...] Description 07/24/2025 12:30 PM EDT Office Visit [facility] [address] [facility] [address] [place] [address] Daniel Montano MD [address] [place] [address] [address] [place], [place] [phone] Scheduled Orders Name Type Priority Associated Diagnoses Orde r Schedule OUTSIDE LAB SCAN Lab Ordered: 07/15/2021 documented as of this encounter Visit Diagnoses Not on filedocumented in this encounter Care Teams Intermediate Designer Relationship Specialty Start Date End Date Jose Roberto Cleary MD [address] [facility] 110 [place] [address] PCP - General 08/14/18 [place] [address] [facility] [address] [place] [phone] Crystal Attacher Nephrology 07/19/23 documented as of this encounter
--- OUTSIDE RECORDS SUMMARY | 2024-07-25 02:15 | XMS_ITS | Encounter Summary ---
Author Organization [facility] Address [address] [place] [address] Phone Care Team Providers Care Stitch Rubber Name Role Phone Jose Roberto Cleary MD Primary Care Provider [phone]- [phone] Daniel Montano MD Unavailable [phone] Encounter Details Date Type Department Care Team (Late st Contact Info) Description 03/23/2022 Orders Only [facility] [address] [place] [place] [address] Conversion, Onbase Social History Tobacco Use Types [...] Description 07/24/2025 12:30 PM EDT Office Visit [facility] [address] [facility] [address] [place] [address] Daniel Montano MD [address] [place] [address] [address] [place], [place] [phone] Scheduled Orders Name Type Priority Associated Diagnoses Orde r Schedule OUTSIDE LAB SCAN Lab Ordered: 03/23/2022 documented as of this encounter Visit Diagnoses Not on filedocumented in this encounter Care Teams Stitch Rubber Relationship Specialty Start Date End Date Jose Roberto Cleary MD [address] [place] [address] PCP - General 08/14/18 [place] [address] [facility] [address] [place] [phone] Silk Screen Cutter Nephrology 07/19/23 documented as of this encounter
--- OUTSIDE RECORDS SUMMARY | 2024-07-25 02:15 | XMS_ITS | Encounter Summary ---
Author Organization [facility] Address [address] [place] [address] Care Team Providers Care Electrician Apprentice Name Role Phone Jose Roberto Cleary MD Primary Care Provider +1- [phone] Sreekanth Quiroz MD Unavailable Source Comments In the event this information is protected by the Federal Confidentiality of Alcohol and Drug AbusePatient Records regulations: The Federal rules restrict any use of the information to criminally investigate or prosecute any alcohol or drug abuse patient.[facility] Encounter Details Date Type Department Care Team (Late st Contact Info) Description 05/08/2024 Patient Msg Internal Medicine [address] [place] [address] Provider, [facility] Vascular Surgery Appoitment Notification Social [...] is lower risk 6 05/09/2024 Data from: https://www.neighborhoodatlas.medicine.[facility].edu/. Last address used for calculation 109 [...] AM EDT Office Visit Vascular Surgery [address] [place] [address] US CAROTID ARTERIES TORIN 11/18/2024 10:00 AM EDT Office Visit Vascular Surgery [address] [place] [address] US ABD AORTA COMPLETE VAS 11/18/2024 11:00 AM EDT Office Visit Vascular Surg Dept [address] [place] [address] [address] [place] [address] Chris Esquivel MD [address] [facility] [address] [place] [address] 6 mth [place] f/u documented as of this encounter Goals Goal Patient Goal Type Associated Problems Recent Progress Patient-Stated? Author Blood Pressure < 130/80 Blood Pressure 149/99( 025 2:43 PM EDT) No Chris Esquivel MD documented as of this encounter Visit Diagnoses Not on filedocumented in this encounter Care Teams Electrician Apprentice Relationship Specialty Start Date End Date Jose Roberto Cleary MD [address] [place] [address] PCP - General Family Medicine 03/12/15 Sreekanth Quiroz MD [address] [place] [address] Referring Neurology 11/20/19 documented as of this encounter
--- OUTSIDE RECORDS SUMMARY | 2024-07-25 02:15 | XMS_ITS | Encounter Summary ---
Author Organization [facility] Address [address] [place] [address] Care Team Providers Care Clay Press Operator Name Role Phone Jose Roberto Cleary MD Unavailable Jose Roberto Cleary MD Primary Care Provider [phone] Farida Pride LPN Unavailable Unavailable Reason for Visit * Reason Onset Date Comments Med Refill 07/02/2024 Encounter Details Date Type Department Care Team (Late st Contact Info) Description 07/02/2024 Refill [facility] [address] [facility] 110 [place] [id number] Jose Roberto Cleary MD [address] [facility] 110 [place], [place] [id number] Adjustment disorder with anxiety ; Neuralgia and neuritis, unspecified; Spondylosis without myelopathy [...] How often do you attend chur or jain services? 1 to 4 times per year 09/19/2022 Do you belong to any clubs o r organizations such as alevism groups, unions, fraternal or athletic groups, or [...] Recorded Patient Health Questionnaire-2 Score 0 04/18/2024 [facility] of Occupat ional Health - Occupational Stress [...] Visit Diagnoses Diagnosis Adjustment disorder with anxiety Adjustment disorder with anxiety Neuralgia and neuritis, unspecified Spondylosis without myelopathy or radiculopathy, lumbar region documented in this encounter Care Teams Clay Press Operator Relationship Specialty Start Date End Date Jose Roberto Cleary MD [address] [facility] 110 [place] [address] PCP - ACO Reach 07/07/22 Jose Roberto Cleary MD [address] [facility] 110 [place] [address] PCP - General Family Medicine 08/03/22 Farida Pride LPN 05/07/24 documented as of this encounter
--- OUTSIDE RECORDS SUMMARY | 2024-07-25 02:15 | XMS_ITS | Encounter Summary ---
Author Organization [facility] Address [address] [place] [address] Care Team Providers Care Foster Winder Name Role Phone Jose Roberto Cleary MD Primary Care Provider [phone]- [phone] Sreekanth Quiroz MD Unavailable Source Comments In the event this information is protected by the Federal Confidentiality of Alcohol and Drug AbusePatient Records regulations: The Federal rules restrict any use of the information to criminally investigate or prosecute any alcohol or drug abuse patient.[facility] Encounter Details Date Type Department Care Team (Late st Contact Info) Description 11/29/2022 Patient Msg Gastroenterology [address] [phone] Kenton Kapadia MD [address] [address] results Social History Tobacco Use Types Packs/Day [...] N ot on file 02/25/2022 Data from: https://www.neighborhoodatlas.medicine.[facility].edu/. Last address used for calculation [...] AM EDT Office Visit Vascular Surgery [address] [place] [address] US CAROTID ARTERIES TORIN 11/18/2024 10:00 AM EDT Office Visit Vascular Surgery [address] [facility] [address] [place] [address] US ABD AORTA COMPLETE VAS 11/18/2024 11:00 AM EDT Office Visit Vascular Surg Dept [address] [facility] [address] [place] [address] Chris Esquivel MD [address] [facility] [address] [place] [address] 6 mth [place] f/u documented as of this encounter Visit Diagnoses Not on filedocumented in this encounter Care Teams Foster Winder Relationship Specialty Start Date End Date Jose Roberto Cleary MD [address] [facility] [address] [place] [address] PCP - General Family Medicine 03/12/15 Sreekanth Quiroz MD [address] [facility] [address] [place] [address] Referring Neurology 11/20/19 documented as of this encounter
--- OUTSIDE RECORDS SUMMARY | 2024-07-25 02:15 | XMS_ITS | Encounter Summary ---
Author Organization [facility] Address [address] [place] [address] Care Team Providers Care Broiler Manager Name Role Phone Jose Roberto Cleary MD Primary Care Provider [phone]- [phone] Sreekanth Quiroz MD Unavailable Source Comments In the event this information is protected by the Federal Confidentiality of Alcohol and Drug AbusePatient Records regulations: The Federal rules restrict any use of the information to criminally investigate or prosecute any alcohol or drug abuse patient.[facility] Encounter Details Date Type Department Care Team (Late st Contact Info) Description 11/02/2022 Get Medical Advice Gastroenterology [address] [place] [address] Taz Faith MD [address] [place] [address] Question regarding COLONOSCOPY DIAGNOSTIC Social [...] on file 02/25/2022 Data from: https://www.neighborhoodatlas.medicine.[facility].edu/. Last address used for calculation [...] AM EDT Office Visit Vascular Surgery [address] [place] [address] US CAROTID ARTERIES TORIN 11/18/2024 10:00 AM EDT Office Visit Vascular Surgery [address] [place] [address] US ABD AORTA COMPLETE VAS 11/18/2024 11:00 AM EDT Office Visit Vascular Surg Dept [address] [place] [address] [address] [place] [address] Chris Esquivel MD [address] [place] [address] 6 mth [place] f/u documented as of this encounter Visit Diagnoses Not on filedocumented in this encounter Care Teams Broiler Manager Relationship Specialty Start Date End Date Jose Roberto Cleary MD [address] [facility] 110 [place] [address] PCP - General Family Medicine 03/12/15 Sreekanth Quiroz MD [address] [facility] [address] [place] [address] Referring Neurology 11/20/19 documented as of this encounter
--- OUTSIDE RECORDS SUMMARY | 2024-07-25 02:15 | XMS_ITS | Clinical Summary ---
Author Organization [facility] Address [address] [place] [address] Care Team Providers Care Oil Furnace Installer Name Role Phone Jose Roberto Cleary MD Unavailable Jose Roberto Cleayr MD Primary Care Provider [phone] Farida Pride LPN Unavailable Unavailable Allergies Active [...] allergies. Active levothyroxine (Synthroid, Levoxyl) 200 MCG tabletIndications: Hypothyroidism, unspecified Take 1 tablet (200 mcg) by mouth in the morning. Take before meals. TAKE 1 TABLET BY MOUTH EVERY MORNING ON AN EMPTY STOMACH,ONLY TAKE 1/2 TABLET ON MONDAY AND MONDAY. 90 tablet 3 024 Active folic acid (Folvite) 1 MG tabletIndications: Nonalcoholic fatty liver disease without nonalcoholic steatohepatitis (BISWAS) Take 1 tablet (1,000 mcg) by mouth Daily 100 tablet 3 024 Active gabapentin (Neurontin) 600 MG tabletIndications: Polyneuropathy,Per ipheral polyneuropathy TAKE 1 TAB BY MOUTH IN THE MORNING, EVENING AND BEFORE BEDTIME 270 tablet 1 024 Active ergocalciferol (Vitamin D2) 1.25 MG (81966 UT) capsuleIndications :Vitamin D deficiency Take 1 capsule (1.25 mg) by mouth 1 (one) time per week 4 capsule 11 024 2024 Active b complex vitamins capsule Take 1 capsule by mouth Daily Active albuterol HFA 90 mcg/act inhalerIndications :Other emphysema (HCC),Chronic obstructive pulmonary disease, unspecified (HCC),Mixed simple and mucopurulent chronic bronchitis (HCC) Inhale 2 puffs every 4 (four) hours if needed for wheezing 18 g 025 2025 Active Misc Natural Products (YumVs Beet Root-Tart Aguilera) 250-0.5 MG chewable tablet Chew Daily as needed (pt does not take this daily, but does take it when she thinks about it.) Active Probiotic Product (PROBIOTIC BLEND PO) Take 1 Capful by mouth Daily Active omeprazole (PriLOSEC) [address] capsuleIndications :Gastroesophageal reflux disease without esophagitis Take 1 capsule (40 mg) by mouth Daily Do not crush or chew. 100 capsule 3 025 Active spironolactone (Aldactone) 25 MG tabletIndications: Localized swelling of both lower extremities TAKE 1 TABLET BY MOUTH EVERY DAY 90 tablet 025 Active amLODIPine (Norvasc) 5 MG tablet Take 5 mg by mouth in the morning. 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, lumbar region Take 1 tablet (50 mg) by mouth every 6 (six) hours if needed for moderate pain 120 tablet 025 2024 Active furosemide (Lasix) 20 MG tabletIndications: Spondylosis without myelopathy or radiculopathy, lumbar region TAKE 1 TABLET BY MOUTH EVERY DAY 100 tablet 3 025 Active furosemide (Lasix) 20 MG tabletIndications: Spondylosis without myelopathy or radiculopathy, lumbar region Take 1 tablet (20 mg) by mouth Daily 90 tablet 1 024 2024 Discontinued traMADol (Ultram) 50 MG tabletIndications: Neuralgia and neuritis, unspecified,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, lumbar region Take 1 tablet (50 mg) by mouth every 6 (six) hours if needed for moderate pain 120 tablet 025 2024 Discontinued(R eorder) ALPRAZolam (Xanax) 1 MG tabletIndications: Adjustment disorder with anxiety Take 1 tablet (1 mg) by mouth 2 (two) times a day as needed for anxiety 60 tablet 025 2024 Discontinued(R eorder) Active Problems Problem Noted Date Diagnosed Date [...] Plan (08/07/2023 3:10 PM EDT): F/U with Box Lidder Abdominal pain 04/24/2023 Fall at home 12/26/2022 [...] & Plan (07/18/2023 9:54 AM EDT): Double-check ([place]) that no US carotids was done in [...] Albuterol added Chronic kidney disease, stage 3a 06/19/2017 Assessment & Plan (02/20/2024 2:25 PM EST): [...] taking them as prescribed. DASH diet handouts Improved Assessment & Plan (12/26/2022 [...] Date Routine general medical exam in[facility] 08/07/2023 01/17/2024 Assessment & [...] for Anuerysm Chronic kidney disease, stage 3b 08/07/2023 11/17/2023 Assessment & Plan (08/07/2023 3:20 [...] Encounters Date Type Department Care Team Description 07/23/2024 Refill [facility] [address] [place] [address] Joesph Frank MD Spondylosis without myelopathy or radiculopathy, lumbar region 07/18/2024 Clinisync Result Encounter [facility] External Department Unsolicited Provider, Generic External Data 07/02/2024 Refill [facility] [address] [place] [address] Jose Roberto Cleary MD Adjustment disorder with anxiety ; Neuralgia and neuritis, unspecified; Spondylosis without myelopathy or radiculopathy, lumbar region 05/28/2024 Clinisync Result Encounter [facility] External Department Unsolicited Provider, Generic External Data 05/22/2024 Patient Outreach [facility] [address] [place] [address] Farida Pride LPN 04/30/2024 Abstract [facility] [address] [place] [address] Jose Roberto Cleary MD 04/29/2024 2:30 PM EDT Clinical Support [facility] 112 [facility] 110 [place] [address] 04/29/2024 Travel 04/25/2024 Refill [facility] [address] [facility] [address] [place] [address] Jose Roberto Cleary MD Localized swelling of both lower extremities from Last 3 Months Immunizations Immunization Administration [...] How often do you attend chur or adventism services? 1 to 4 times per year 09/19/2022 Do you belong to any clubs o r organizations such as buddhist groups, unions, fraternal or athletic groups, or [...] Recorded Patient Health Questionnaire-2 Score 0 04/18/2024 [facility] of Occupat ional Health - Occupational Stress [...] place to sleep or slept in a intermediate (including now)? No 09/19/2022 Comments Unknown Sex [...] Procedure Name Priority Date/Time Associated Diagnosis Comments ALL BASIC METABOLIC PANEL Routine 07/18/2024 3:34 PM EDT NM CARDIAC PERF STRESS/PHARM 05/28/2024 3:41 PM EDT COLONOSCOPY 10/25/2022 10:08 AM EDT from Last 3 Months or Most Recently Relevant to Health Maintenance Results * (ABNORMAL) ALL BASIC METABOLIC PANEL (07/18/2024 3:34 PM EDT) SODIUM 140 136 - 145 mmol/L [facility] POTASSIUM 3.9 3.5 - 5.1 mmol/L [facility] CHLORIDE 103 98 - 107 mmol/L [facility] CARBON DIOXIDE 30.4 21.0 - 32.0 mmol/L [facility] ANION GAP 10.5 [facility] GLUCOSE 96 74 - 106 mg/dL [facility] BLOOD UREA NITROGEN 26.0(H) 7.0 - 18.0 mg/dL [facility] CREATININE 1.26(H) 0.55 - 1.02 mg/dL [facility] EGFR-AF [place] 50(L) >=60 mL/min/1.7 3m 2 TB[facility] EGFR-NON AF [place] 42(L) >=60 mL/min/1.7 3m 2 [facility] BUN CREATININE RATIO 20.6 [facility] CALCIUM 9.6 8.5 - 10.1 mg/dL [facility] 07/18/2024 3:34 PM EDT 07/18/2024 3:35 PM EDT Narrative [facility] - 07/18/2024 4:09 PM EDT us Generic External Data Provider PEGGY arellano Result [facility] * NM CARDIAC PERF STRESS/PHARM (05/28/2024 3:41 [...] later. See administered radiotracer and doses below. [facility] Office Date of service: 05/28/2024 [...] Final * * * Stress ECG Report: [facility] Date of service: 05/28/2024 [...] 138/74 mmHg. The double product achieved was [address]. Medications: Last Used AMLODIPINE LASIX POTASSIUM SPIRONOLACTONE [...] (HRR): 10 bpm Rate Pressure Product (RPP): 33096 Stress Exercise Observations: Reason for test termination: [...] * * Final * * * Stress Chairman Emeritus Report: [facility] Date of service: 05/28/2024 1:25:55 PM Supervising physician: Tu Fuller MD PATIENT: Name: REBECA JIMENEZ Age: 73 years Gender: F The supervising physician was in the department and immediately available. * * * Final * * * RP Hydrographical Technical Officer: ADARSH Transcribe Date/Time: May 28 2024 1:25P Dictated by : GÓMEZ RIVAS MD This examination was interpreted and the report reviewed and electronically signed by: GÓMEZ RIVAS MD on May 28 2024 5:00PM EST [id number]^[id number]^SI^ACN Procedure Note Radiology, Radiologist, MD - 05/28/2024 * * *Final Report* * * DATE OF EXAM: May 28 2024 3:41PM [facility] 0006 - NM CARDIAC PERF STRESS/PHARM / [...] later. See administered radiotracer and doses below. [facility] Date of service: 05/28/2024 [...] Final * * * Stress ECG Report: [facility] Date of service: 05/28/2024 [...] 138/74 mmHg. The double product achieved was [address]. Medications: Last Used AMLODIPINE LASIX POTASSIUM SPIRONOLACTONE [...] (HRR): 10 bpm Rate Pressure Product (RPP): 60368 Stress Exercise Observations: Reason for test termination: [...] * * Final * * * Stress Chairman Emeritus Report: [facility] Date of service: 05/28/2024 1:25:55 PM Supervising physician: Tu Fuller MD PATIENT: Name: REBECA JIMENEZ Age: 73 years Gender: F The supervising physician was in the department and immediatelyavailable. * * * Final * * * RP Hydrographical Technical Officer: ADARSH Transcribe Date/Time: May 28 2024 1:25P Dictated by : GÓMEZ RIVAS MD This examination was interpreted and the report reviewed and electronically signed by: GÓMEZ RIVAS MD on May 28 2024 5:00PM EST [id number]^AGFA_IDC^SI^ACN us Generic External Data Provider [facility] [...] for surveillance. Procedure Code(s): --- Professional --- 26863, Colonoscopy, flexible; with removal of tumor(s), polyp(s), or other lesion(s) by snare technique Diagnosis Code(s): --- Professional --- Z12.11, Encounter for screening for malignant neoplasm of colon Z86.010, Personal history of colonic polyps Z98.890, Other specified postprocedural states D12.2, Benign neoplasm of ascending colon CPT copyright 2020 [employer]. All rights reserved. Attending Participation: I personally performed the entire procedure. Scope In: 10:37:51 AM Scope Out: 11:08:30 AM MD Kenton Rowe MD 10/25/2022 11:34:00 AM This report has been signed electronically by Kenton Kapadia MD Number of Addenda: 0 Note Initiated On: 10/25/2022 10:08 AM Procedure Note Radiology, Radiologist, MD - 10/25/2022 Q3 Patient Name: Rebeca Jimenez [...] for surveillance. Procedure Code(s): --- Professional --- 70473, Colonoscopy, flexible; with removal of tumor(s), polyp(s), or other lesion(s) by snare technique Diagnosis Code(s): --- Professional --- Z12.11, Encounter for screening for malignant neoplasm of colon Z86.010, Personal history of colonic polyps Z98.890, Other specified postprocedural states D12.2, Benign neoplasm of ascending colon CPT copyright 2020 [employer]. All rights reserved. Attending Participation: [...] Recently Relevant to Health Maintenance Insurance MEDICARE [facility] Care Teams Oil Furnace Installer Relationship Specialty Start Date End Date Jose Roberto Cleary MD [address] [facility] [address] [place] [address] PCP - ACO Reach 07/07/22 Jose Roberto Cleary MD [address] [facility] 110 [place] [address] PCP - General Family Medicine 08/03/22 Farida Pride LPN 05/07/24
--- OUTSIDE RECORDS SUMMARY | 2024-07-25 02:15 | XMS_ITS | Encounter Summary ---
Author Organization [facility] Address [address] [place] [address] Phone Care Team Providers Care Egg Breaker Name Role Phone Jose Roberto Cleary MD Primary Care Provider [phone]- [phone] Daniel Montano MD Unavailable [phone] Encounter Details Date Type Department Care Team (Late st Contact Info) Description 01/31/2023 Scanned Document [facility] [address] [place] [address] Scanning, Generic Provider Social History [...] Description 07/24/2025 12:30 PM EDT Office Visit [facility] [address] [facility] [address] [place] [phone] [place] [address] [facility] [address] [facility] [address] [place] [address] documented as of this encounter Visit Diagnoses Not on filedocumented in this encounter Additional Health Concerns Assessment Noted Time A fall risk assessment has been complete d for the patient 11/21/2022 3:31 PM EDT documented as of this encounter Care Teams Egg Breaker Relationship Specialty Start Date End Date Jose Roberto Cleary MD [address] [facility] 110 [place] [address] PCP - General 08/14/18 [place] [address] [facility] [address] [facility] [address] [place] [address] Master Machinist Nephrology 07/19/23 documented as of this encounter
--- OUTSIDE RECORDS SUMMARY | 2024-07-25 02:15 | XMS_ITS | Encounter Summary ---
Author Organization [facility] Address [address] [place] [address] Care Team Providers Care C++ Professor Name Role Phone Jose Roberto Cleary MD Primary Care Provider [phone]- [phone] Sreekanth Quiroz MD Unavailable Source Comments In the event this information is protected by the Federal Confidentiality of Alcohol and Drug AbusePatient Records regulations: The Federal rules restrict any use of the information to criminally investigate or prosecute any alcohol or drug abuse patient.[facility] Encounter Details Date Type Department Care Team (Late st Contact Info) Description 09/06/2022 Patient Msg Gastroenterology [address] [phone] Vilma Stahl, PSS prep Social History Tobacco [...] N ot on file 02/25/2022 Data from: https://www.neighborhoodatlas.medicine.[facility].edu/. Last address used for calculation [address] [...] AM EDT Office Visit Vascular Surgery [address] [place] [address] US CAROTID ARTERIES TORIN 11/18/2024 10:00 AM EDT Office Visit Vascular Surgery [address] [place] [address] US ABD AORTA COMPLETE VAS 11/18/2024 11:00 AM EDT Office Visit Vascular Surg Dept [address] [place] [address] [address] [place] [address] Chris Esquivel MD [address] [facility] [address] [place] [address] 6 mth [place] f/u documented as of this encounter Visit Diagnoses Not on filedocumented in this encounter Care Teams C++ Professor Relationship Specialty Start Date End Date Jose Roberto Cleary MD [address] [facility] [address] [place] [address] PCP - General Family Medicine 03/12/15 Sreekanth Quiroz MD [address] [facility] [address] [place] [address] Referring Neurology 11/20/19 documented as of this encounter
--- OUTSIDE RECORDS SUMMARY | 2024-07-25 02:15 | XMS_ITS | Encounter Summary ---
Author Organization [facility] Address [address] [place] [address] Care Team Providers Care Plant Anatomy Teacher Name Role Phone Jose Roberto Cleary MD Primary Care Provider [phone] Sreekanth Quiroz MD Unavailable Source Comments In the event this information is protected by the Federal Confidentiality of Alcohol and Drug AbusePatient Records regulations: The Federal rules restrict any use of the information to criminally investigate or prosecute any alcohol or drug abuse patient.[facility] Encounter Details Date Type Department Care Team (Late st Contact Info) Description 04/27/2022 Patient Msg Gastroenterology [address] [phone] Debbi Hammond APRN.FRAMEMAN [address] [place] [address] Checking in Social History Tobacco [...] on file 02/25/2022 Data from: https://www.neighborhoodatlas.medicine.[facility].edu/. Last address used for calculation Mary [...] AM EDT Office Visit Vascular Surgery [address] [place] [address] US CAROTID ARTERIES TORIN 11/18/2024 10:00 AM EDT Office Visit Vascular Surgery [address] [place] [address] US ABD AORTA COMPLETE VAS 11/18/2024 11:00 AM EDT Office Visit Vascular Surg Dept [address] [place] [address] [address] [place] [address] Chris Esquivel MD [address] [place] [address] 6 mth [place] f/u documented as of this encounter Visit Diagnoses Not on filedocumented in this encounter Care Teams Plant Anatomy Teacher Relationship Specialty Start Date End Date Jose Roberto Cleary MD [address] [facility] [address] [place] [address] PCP - General Family Medicine 03/12/15 Sreekanth Quiroz MD [address] [facility] [address] [place] [address] Referring Neurology 11/20/19 documented as of this encounter
--- OUTSIDE RECORDS SUMMARY | 2024-07-25 02:15 | XMS_ITS | Encounter Summary ---
Author Organization [facility] Address [address] [place] [address] Care Team Providers Care Sail Cutter Name Role Phone Jose Roberto Cleary MD Primary Care Provider +1- [phone] Sreekanth Quiroz MD Unavailable Source Comments In the event this information is protected by the Federal Confidentiality of Alcohol and Drug AbusePatient Records regulations: The Federal rules restrict any use of the information to criminally investigate or prosecute any alcohol or drug abuse patient.[facility] Encounter Details Date Type Department Care Team (Late st Contact Info) Description 04/17/2022 [place] [address] Provider, Ccf Please Schedule Colonoscopy/Endoscopy Appointment Social [...] N ot on file 02/25/2022 Data from: https://www.neighborhoodatlas.medicine.[facility].edu/. Last address used for calculation Mary [...] AM EDT Office Visit Vascular Surgery [address] [place] [address] US CAROTID ARTERIES TORIN 11/18/2024 10:00 AM EDT Office Visit Vascular Surgery [address] [place] [address] US ABD AORTA COMPLETE VAS 11/18/2024 11:00 AM EDT Office Visit Vascular Surg Dept [address] [facility] [address] [place] [address] Chris Esquivel MD [address] [facility] [address] [place] [address] 6 mth [place] f/u documented as of this encounter Visit Diagnoses Not on filedocumented in this encounter Care Teams Sail Cutter Relationship Specialty Start Date End Date Jose Roberto Cleary MD [address] [facility] 110 [place] [address] PCP - General Family Medicine 03/12/15 Sreekanth Quiroz MD [address] [facility] 110 [place] [address] Referring Neurology 11/20/19 documented as of this encounter
--- OUTSIDE RECORDS SUMMARY | 2024-07-25 02:15 | XMS_ITS | Encounter Summary ---
Author Organization [facility] Address [address] [place] [address] Care Team Providers Care Emotional Support Teacher Name Role Phone Jose Roberto Cleary MD Primary Care Provider [phone]- [phone] Sreekanth Quiroz MD Unavailable Source Comments In the event this information is protected by the Federal Confidentiality of Alcohol and Drug AbusePatient Records regulations: The Federal rules restrict any use of the information to criminally investigate or prosecute any alcohol or drug abuse patient.[facility] Encounter Details Date Type Department Care Team (Late st Contact Info) Description 04/10/2022 Patient Msg Gastroenterology [address] [place] [id number] Taz Faith MD [address] [place] [address] Colonoscopy follow up Social History [...] N ot on file 02/25/2022 Data from: https://www.neighborhoodatlas.medicine.[facility].edu/. Last address used for calculation Mary [...] AM EDT Office Visit Vascular Surgery [address] [place] [address] US CAROTID ARTERIES TORIN 11/18/2024 10:00 AM EDT Office Visit Vascular Surgery [address] [place] [address] US ABD AORTA COMPLETE VAS 11/18/2024 11:00 AM EDT Office Visit Vascular Surg Dept [address] [facility] [address] [place] [address] Chris Esquivel MD [address] [place] [address] 6 mth [place] f/u documented as of this encounter Visit Diagnoses Not on filedocumented in this encounter Care Teams Emotional Support Teacher Relationship Specialty Start Date End Date Jose Roberto Cleary MD [address] [facility] 110 [place] [address] PCP - General Family Medicine 03/12/15 Sreekanth Quiroz MD [address] [facility] 110 [place] [address] Referring Neurology 11/20/19 documented as of this encounter
--- OUTSIDE RECORDS SUMMARY | 2024-07-25 02:15 | XMS_ITS | Encounter Summary ---
Author Organization [facility] Address [address] [place] [address] Phone Care Team Providers Care Multi Skilled Operator Name Role Phone Jose Roberto Cleary MD Primary Care Provider +1- [phone] Daniel Montano MD Unavailable [phone] Encounter Details Date Type Department Care Team (Late st Contact Info) Description 12/29/2020 Orders Only [facility] [address] [place] [address] Conversion, Onbase Social History Tobacco Use Types [...] Description 07/24/2025 12:30 PM EDT Office Visit [facility] [address] [facility] [address] [place] [address] Daniel Montano MD [address] [place] [address] [address] [place], [place] [phone] Scheduled Orders Name Type Priority Associated Diagnoses Orde r Schedule OUTSIDE LAB SCAN Lab Ordered: 12/29/2020 documented as of this encounter Visit Diagnoses Not on filedocumented in this encounter Care Teams Multi Skilled Operator Relationship Specialty Start Date End Date Jose Roberto Cleary MD [address] [facility] 110 [place] [address] PCP - General 08/14/18 [place] [address] [facility] [address] [place] [phone] Sfdc Architect Nephrology 07/19/23 documented as of this encounter
--- OUTSIDE RECORDS SUMMARY | 2024-07-25 02:15 | XMS_ITS | Encounter Summary ---
Author Organization [facility] Address [address] [facility] [place] [address] Care Team Providers Care Chocolate Finisher Operator Name Role Phone Jose Roberto Cleary MD Unavailable Jose Roberto Cleary MD Primary Care Provider [phone] Belen Barr RN Unavailable [phone] Farida Pride LPN Unavailable Unavailable Encounter Details Date Type Department Care Team (Late st Contact Info) Description 02/01/2023 Orders Only [facility] [address] [place] [address] A, Unknown Practice [address] [place] [id number] Social History Tobacco Use Types Packs/Day Years [...] often do you attend chur ch or yazidism services? 1 to 4 times per year 09/19/2022 Do you belong to any clubs o r organizations such as mandaeism groups, unions, fraternal or athletic groups, or [...] and heating? Not hard at all 09/19/2022 [facility] - [...] to sleep or slept in a senior care (including now)? No 09/19/2022 Comments Unknown Sex [...] on filedocumented in this encounter Care Teams Chocolate Finisher Operator Relationship Specialty Start Date End Date Jose Roberto Cleary MD [address] [address] PCP - ACO Reach 07/07/22 Jose Roberto Cleary MD [address] [facility] 110 [place] [address] PCP - General Family Medicine 08/03/22 Belen Barr, RN Clinical Advocate Family Medicine 03/22/24 05/07/24 Farida Pride LPN 05/07/24 documented as of this encounter
--- OUTSIDE RECORDS SUMMARY | 2024-07-25 02:15 | XMS_ITS | Encounter Summary ---
Author Organization [facility] Address [facility] [place] [address] Care Team Providers Care Patient Transporter Name Role Phone Jose Roberto Cleary MD Primary Care Provider [phone]- [phone] Sreekanth Quiroz MD Unavailable Source Comments In the event this information is protected by the Federal Confidentiality of Alcohol and Drug AbusePatient Records regulations: The Federal rules restrict any use of the information to criminally investigate or prosecute any alcohol or drug abuse patient.[facility] Encounter Details Date Type Department Care Team (Late st Contact Info) Description 10/28/2021 Patient Msg Gastroenterology [address] [phone] Taz Faith MD [address] [place] [address] Colonoscopy prep Social History Tobacco [...] AM EDT Office Visit Vascular Surgery [address] [place] [address] US CAROTID ARTERIES TORIN 11/18/2024 10:00 AM EDT Office Visit Vascular Surgery [address] [facility] [address] [place] [address] US ABD AORTA COMPLETE VAS 11/18/2024 11:00 AM EDT Office Visit Vascular Surg Dept 6801 [facility] 300 [place] [address] Chris Esquivel MD [address] [address] 6 mth [place] f/u documented as of this encounter Visit Diagnoses Not on filedocumented in this encounter Care Teams Patient Transporter Relationship Specialty Start Date End Date Jose Roberto Cleary MD [address] [address] PCP - General Family Medicine 03/12/15 Sreekanth Quiroz MD [address] [address] Referring Neurology 11/20/19 documented as of this encounter
--- OUTSIDE RECORDS SUMMARY | 2024-07-25 02:15 | XMS_ITS | Encounter Summary ---
Author Organization [facility] Address [address] [place] [address] Care Team Providers Care Automobile Mechanic Helper Name Role Phone Jose Roberto Cleary MD Unavailable Jose Roberto Cleary MD Primary Care Provider [phone] Farida Pride LPN Unavailable Unavailable Reason for Visit * Reason Comments Med Refill Encounter Details Date Type Department Care Team (Late st Contact Info) Description 07/23/2024 Refill [facility] 112 [facility] 110 [place] [phone] Joseph Frank MD 112 [facility] 110 [place] [address] Spondylosis without myelopathy or radiculopathy, lumbar region [...] How often do you attend chur or lutheran services? 1 to 4 times per year 09/19/2022 Do you belong to any clubs o r organizations such as mormonism groups, unions, fraternal or athletic groups, or [...] Recorded Patient Health Questionnaire-2 Score 0 04/18/2024 [facility] [...] place to sleep or slept in a care home (including now)? No 09/19/2022 Comments Unknown [...] region documented in this encounter Care Teams Automobile Mechanic Helper Relationship Specialty Start Date End Date Jose Roberto Cleary MD [address] [facility] 110 [place] [address] PCP - ACO Reach 07/07/22 Jose Roberto Cleary MD [address] [facility] 110 [place] [address] PCP - General Family Medicine 08/03/22 Farida Pride LPN 05/07/24 documented as of this encounter
--- OUTSIDE RECORDS SUMMARY | 2024-07-25 02:15 | XMS_ITS | Encounter Summary ---
Author Organization [facility] Address [address] [place] [address] Care Team Providers Care Neonatal Specialist Name Role Phone Jose Roberto Cleary MD Primary Care Provider [phone]- [phone] Sreekanth Quiroz MD Unavailable Source Comments In the event this information is protected by the Federal Confidentiality of Alcohol and Drug AbusePatient Records regulations: The Federal rules restrict any use of the information to criminally investigate or prosecute any alcohol or drug abuse patient.[facility] Encounter Details Date Type Department Care Team (Late st Contact Info) Description 11/02/2022 Get Medical Advice Gastroenterology [address] [place] [address] Taz Faith MD [address] [place] [address] Question regarding COLONOSCOPY DIAGNOSTIC Social [...] on file 02/25/2022 Data from: https://www.neighborhoodatlas.medicine.[facility].edu/. Last address used for calculation Mary [...] AM EDT Office Visit Vascular Surgery [address] [place] [address] US CAROTID ARTERIES TORIN 11/18/2024 10:00 AM EDT Office Visit Vascular Surgery [address] [place] [address] US ABD AORTA COMPLETE VAS 11/18/2024 11:00 AM EDT Office Visit Vascular Surg Dept [address] [place] [address] [address] [place] [address] Chris Esquivel MD [address] [place] [address] 6 mth [place] f/u documented as of this encounter Visit Diagnoses Not on filedocumented in this encounter Care Teams Neonatal Specialist Relationship Specialty Start Date End Date Jose Roberto Cleary MD [address] [facility] 110 [place] [address] PCP - General Family Medicine 03/12/15 Sreekanth Quiroz MD [address] [facility] [address] [place] [address] Referring Neurology 11/20/19 documented as of this encounter
--- OUTSIDE RECORDS SUMMARY | 2024-07-25 02:15 | XMS_ITS | Encounter Summary ---
Author Organization [facility] Address [address] [place] [address] Care Team Providers Care Industrial Coffee Grinder Name Role Phone Jose Roberto Cleary MD Primary Care Provider [phone]- [phone] Sreekanth Quiroz MD Unavailable Source Comments In the event this information is protected by the Federal Confidentiality of Alcohol and Drug AbusePatient Records regulations: The Federal rules restrict any use of the information to criminally investigate or prosecute any alcohol or drug abuse patient.[facility] Encounter Details Date Type Department Care Team (Late st Contact Info) Description 09/19/2022 Get Medical Advice Gastroenterology [address] [address] Debbi Hammond APRN.PIGSKIN TRIMMER [address] [place] [address] Colonoscopy prep Social History Tobacco [...] N ot on file 02/25/2022 Data from: https://www.neighborhoodatlas.medicine.[facility].edu/. Last address used for calculation Mary [...] AM EDT Office Visit Vascular Surgery [address] [place] [address] US CAROTID ARTERIES TORIN 11/18/2024 10:00 AM EDT Office Visit Vascular Surgery [address] [place] [address] US ABD AORTA COMPLETE VAS 11/18/2024 11:00 AM EDT Office Visit Vascular Surg Dept [address] [place] [address] [address] [place] [address] Chris Esquivel MD [address] [place] [address] 6 mth [place] f/u documented as of this encounter Visit Diagnoses Not on filedocumented in this encounter Care Teams Industrial Coffee Grinder Relationship Specialty Start Date End Date Jose Roberto Cleary MD [address] [facility] 110 [place] [address] PCP - General Family Medicine 03/12/15 Sreekanth Quiroz MD [address] [facility] 110 [place] [address] Referring Neurology 11/20/19 documented as of this encounter
--- OUTSIDE RECORDS SUMMARY | 2024-07-25 02:15 | XMS_ITS | Encounter Summary ---
Author Organization [facility] Address [address] [place] [address] Care Team Providers Care Gold And Silver Assayer Name Role Phone Jose Roberto Cleary MD Primary Care Provider [phone]- [phone] Sreekanth Quiroz MD Unavailable Source Comments In the event this information is protected by the Federal Confidentiality of Alcohol and Drug AbusePatient Records regulations: The Federal rules restrict any use of the information to criminally investigate or prosecute any alcohol or drug abuse patient.[facility] Encounter Details Date Type Department Care Team (Late st Contact Info) Description 11/03/2022 Get Medical Advice Gastroenterology [address] [place] [address] Taz Faith MD [address] [place] [address] Question regarding COLONOSCOPY DIAGNOSTIC Social [...] N ot on file 02/25/2022 Data from: https://www.neighborhoodatlas.medicine.[facility].edu/. Last address used for calculation [...] AM EDT Office Visit Vascular Surgery [address] [place] [phone] US CAROTID ARTERIES TORIN 11/18/2024 10:00 AM EDT Office Visit Vascular Surgery [address] [facility] [address] [place] [address] US ABD AORTA COMPLETE VAS 11/18/2024 11:00 AM EDT Office Visit Vascular Surg Dept 6801 [facility] 300 [place] [address] Chris Esquivel MD [address] [facility] [address] [place] [address] 6 mth [place] f/u documented as of this encounter Visit Diagnoses Not on filedocumented in this encounter Care Teams Gold And Silver Assayer Relationship Specialty Start Date End Date Jose Roberto Cleary MD [address] [facility] 110 [place] [address] PCP - General Family Medicine 03/12/15 Sreekanth Quiroz MD [address] [facility] [address] [place] [address] Referring Neurology 11/20/19 documented as of this encounter
--- OUTSIDE RECORDS SUMMARY | 2024-07-25 02:15 | XMS_ITS | Encounter Summary ---
Author Organization [facility] Address [address] [place] [address] Phone Care Team Providers Care Developer Programmer Analyst Name Role Phone Jose Roberto Cleary MD Primary Care Provider [phone]- [phone] Daniel Montano MD Unavailable [phone] Encounter Details Date Type Department Care Team (Late st Contact Info) Description 09/23/2022 Orders Only [facility]Y [address] [place] [address] Conversion, Onbase Social History Tobacco Use Types [...] Description 07/24/2025 12:30 PM EDT Office Visit [facility] [address] [facility] [address] [place] [address] Daniel Montano MD [address] [place] [address] [address] [place], [place] [id number] Scheduled Orders Name Type Priority Associated Diagnoses Orde r Schedule OUTSIDE LAB SCAN Lab Ordered: 09/23/2022 documented as of this encounter Visit Diagnoses Not on filedocumented in this encounter Care Teams Developer Programmer Analyst Relationship Specialty Start Date End Date Jose Roberto Cleary MD [address] [facility] 110 [place] [address] PCP - General 08/14/18 [place] [address] [facility] [address] [place] [phone] Center Medical Director Nephrology 07/19/23 documented as of this encounter
--- OUTSIDE RECORDS SUMMARY | 2024-07-25 02:15 | XMS_ITS | Encounter Summary ---
Author Organization [facility] Address [address] [place] [address] Care Team Providers Care Power Screwdriver Operator Name Role Phone Jose Roberto Cleary MD Unavailable Jose Roberto Cleary MD Primary Care Provider [phone] Farida Pride LPN Unavailable Unavailable Encounter Details Date Type Department Care Team (Late st Contact Info) Description 07/18/2024 Clinisync Result Encounter [facility] External Department [...] How often do you attend chur or yazdanism services? 1 to 4 times per year 09/19/2022 Do you belong to any clubs o r organizations such as mu-ism groups, unions, fraternal or athletic groups, or [...] Recorded Patient Health Questionnaire-2 Score 0 04/18/2024 [facility] - Occupational Stress Questionnaire Answer [...] METABOLIC PANEL Routine 07/18/2024 3:34 PM EDT documented in this encounter Results * (ABNORMAL) ALL BASIC METABOLIC PANEL [...] 0.55 - 1.02 mg/dL [facility] TB[facility] EGFR-AF EQUATORIAL GUINEAN 50(L) >=60 mL/min/1.7 3m 2 TBH [facility]H EGFR-NON AF EQUATORIAL GUINEAN 42(L) >=60 mL/min/1.7 3m 2 TBH BUN CREATININE RATIO 20.6 TBH CALCIUM 9.6 8.5 - 10.1 mg/dL [facility] 07/18/2024 3:34 PM EDT 07/18/2024 3:35 PM EDT Narrative [facility] - 07/18/2024 4:09 PM EDT us Generic External Data Provider [facility] F inal Result [facility] TB documented in this encounter Visit Diagnoses Not on filedocumented in this encounter Care Teams Power Screwdriver Operator Relationship Specialty Start Date End Date Jose Roberto Cleary MD [address] [facility] 110 [place] [address] PCP - ACO Reach 07/07/22 Jose Roberto Cleary MD [address] [facility] 110 [place] [address] PCP - General Family Medicine 08/03/22 Farida Pride LPN 05/07/24 documented as of this encounter
--- OUTSIDE RECORDS SUMMARY | 2024-07-25 02:15 | XMS_ITS | Encounter Summary ---
Author Organization [facility] Address [facility] [place] [address] Care Team Providers Care Supply Chain Associate Name Role Phone Jose Roberto Cleary MD Primary Care Provider [phone]- [phone] Sreekanth Quiroz MD Unavailable Source Comments In the event this information is protected by the Federal Confidentiality of Alcohol and Drug AbusePatient Records regulations: The Federal rules restrict any use of the information to criminally investigate or prosecute any alcohol or drug abuse patient.[facility] Encounter Details Date Type Department Care Team (Late st Contact Info) Description 12/23/2021 Get Medical Advice Gastroenterology [address] [place] [phone] Taz Faith MD [address] [place] [address] Test results and follow up [...] AM EDT Office Visit Vascular Surgery [address] [facility] [address] [place] [address] US CAROTID ARTERIES TORIN 11/18/2024 10:00 AM EDT Office Visit Vascular Surgery 6801 [facility] 300 [place] [address] US ABD AORTA COMPLETE VAS 11/18/2024 11:00 AM EDT Office Visit Vascular Surg Dept 6801 [facility] 300 [place] [address] Chris Esquivel MD [address] [address] mth US f/u documented as of this encounter Visit Diagnoses Diagnosis Adenomatous rectal polyp- Primary Benign neoplasm of rectum and anal canal Rectal mass Other symptoms involving digestive system documented in this encounter Care Teams Supply Chain Associate Relationship Specialty Start Date End Date Jose Roberto Cleary MD [address] [address] PCP - General Family Medicine 03/12/15 Sreekanth Quiroz MD [address] [address] Referring Neurology 11/20/19 documented as of this encounter
--- OUTSIDE RECORDS SUMMARY | 2024-07-25 02:15 | XMS_ITS | Encounter Summary ---
Author Organization [facility] Address [address] [place] [address] Care Team Providers Care Poured Wall Foreman Name Role Phone Jose Roberto Cleary MD Primary Care Provider +1- [phone] Sreekanth Quiroz MD Unavailable Source Comments In the event this information is protected by the Federal Confidentiality of Alcohol and Drug AbusePatient Records regulations: The Federal rules restrict any use of the information to criminally investigate or prosecute any alcohol or drug abuse patient.[facility] Encounter Details Date Type Department Care Team (Late st Contact Info) Description 03/29/2022 Get Medical Advice Gastroenterology [address] [place] [phone] Taz Faith MD [address] [place] [address] Same symptoms Social History Tobacco [...] N ot on file 02/25/2022 Data from: https://www.neighborhoodatlas.medicine.[facility].edu/. Last address used for calculation Mary [...] AM EDT Office Visit Vascular Surgery [address] [place] [address] US CAROTID ARTERIES TORIN 11/18/2024 10:00 AM EDT Office Visit Vascular Surgery [address] [facility] [address] [place] [address] US ABD AORTA COMPLETE VAS 11/18/2024 11:00 AM EDT Office Visit Vascular Surg Dept [address] [facility] [address] [place] [address] Chris Esquivel MD [address] [facility] [address] [place] [address] 6 mth [place] f/u documented as of this encounter Visit Diagnoses Not on filedocumented in this encounter Care Teams Poured Wall Foreman Relationship Specialty Start Date End Date Jose Roberto Cleary MD [address] [facility] 110 [place] [address] PCP - General Family Medicine 03/12/15 Sreekanth Quiroz MD [address] [facility] [address] [place] [address] Referring Neurology 11/20/19 documented as of this encounter
--- OUTSIDE RECORDS SUMMARY | 2024-07-25 02:15 | XMS_ITS | Encounter Summary ---
Author Organization [facility] Address [address] [place] [address] Care Team Providers Care Exceptional Student Education Teacher Name Role Phone Monika Lehman MD Unavailable Monika Lehman MD Primary Care Provider [phone] Belen Barr RN Unavailable [phone] Farida Pride LPN Unavailable Unavailable Encounter [...] often do you attend chur ch or temple services? 1 to 4 times per year 09/19/2022 Do you belong to any clubs o r organizations such as uatsdin groups, unions, fraternal or athletic groups, or [...] AM EST Narrative 02/01/2023 8:09 AM EST [place] [id number] XRay Report Signed Patient: REBECA JIMENEZ MR#: [id number] : 1950 Acct:[id number] Age/Sex: 72 / F ADM Date: 01/31/23 Loc: RAD Attending Dr: AMAN ANDRES Ordering Physician: AMAN ANDRES Date of Service: 01/31/23 Procedure(s): XR lumbar spine 6V w bending Accession Number(s): [id number] cc: MONIKA LEHMAN ; AMAN ANDRES [place] [id number] Patient Name: REBECA JIMENEZ MRN: [id number] date: 1950 Sex: F Assigned Patient Location: RAD Current Patient Location: Accession/Order Number: [id number] Exam Date: 01/31/2023 11:58 Report Date: 02/01/2023 08:07 At the request of: AMAN ANDRES Procedure: XR lumbar spine 6V w bending PROCEDURE: XR lumbar spine 6V w bending DATE: 01/31/2023 10:58 AM SECURITY ADVISOR COMPARISONS: CT abdomen and pelvis 03/23/2022 CLINICAL [...] Signed By: 02/01/23 08 DD/ 08 TD/TT: Driver Merchandiser: Procedure Note Radiology, Radiologist, MD - 02/01/2023 [place] [address] XRay Report Signed Patient: REBECA JIMENEZ PMR#: [id number] : 1950Acct:[id number] Age/Sex: 72 / FADM Date: 01/31/23 Loc: RAD Attending Dr: AMAN ANDRES Ordering Physician: AMAN ANDRES Date of Service: 01/31/23 Procedure(s): XR lumbar spine 6V w bending Accession Number(s): [id number] cc: MONIKA LEHMAN ; AMAN ANDRES [place] [id number] Patient Name: REBECA JIMENEZ MRN: [facility]:[id number] date: 1950 Sex: F Assigned Patient Location: [facility] Current Patient Location: Accession/Order Number: [id number] Exam Date: 01/31/2023 11:58 Report Date: 02/01/2023 08:07 At the request of: AMAN MCKENNA Procedure: XR lumbar spine 6V w bending PROCEDURE: XR lumbar spine 6V w bending DATE: 01/31/2023 10:58 AM SECURITY ADVISOR COMPARISONS: CT abdomen and pelvis 03/23/2022 CLINICAL [...] M.D. Signed By:02/01/23 0809 DD/ 08 TD/TT: Driver Merchandiser: Generic External Data Provider [facility] Final Result documented in this encounter Visit Diagnoses Not on filedocumented in this encounter Care Teams Exceptional Student Education Teacher Relationship Specialty Start Date End Date Monika Lehman MD [address] [facility] [address] [place] [address] PCP - ACO Reach 07/07/22 Monika Lehman MD [address] [facility] [address] [place] [address] PCP - General Family Medicine 08/03/22 Belen Barr RN Clinical Advocate Family Medicine 03/22/24 05/07/24 Farida Pride LPN 05/07/24 documented as of this encounter
--- OUTSIDE RECORDS SUMMARY | 2024-07-25 02:15 | XMS_ITS | Encounter Summary ---
Author Organization [facility] Address [address] [place] [address] Care Team Providers Care Ticket Taker Name Role Phone Jose Roberto Cleary MD Primary Care Provider [phone] Sreekanth Quiroz MD Unavailable Source Comments In the event this information is protected by the Federal Confidentiality of Alcohol and Drug AbusePatient Records regulations: The Federal rules restrict any use of the information to criminally investigate or prosecute any alcohol or drug abuse patient.[facility] Encounter Details Date Type Department Care Team ([facility] st Contact Info) Description 11/04/2021 Patient [place] [id number] Provider, Ccf Please Schedule Colonoscopy/Endoscopy Appointment Social [...] AM EDT Office Visit Vascular Surgery [address] [place] [address] US CAROTID ARTERIES TORIN 11/18/2024 10:00 AM EDT Office Visit Vascular Surgery [address] [place] [address] US ABD AORTA COMPLETE VAS 11/18/2024 11:00 AM EDT Office Visit Vascular Surg Dept [address] [place] [address] Chris Esquivel MD [address] [facility] [address] [place] [address] 6 mth US f/u documented as of this encounter Visit Diagnoses Not on filedocumented in this encounter Care Teams Ticket Taker Relationship Specialty Start Date End Date Jose Roberto Cleary MD [address] [facility] [address] [place] [address] PCP - General Family Medicine 03/12/15 Sreekanth Quiroz MD [address] [facility] [address] [place] [address] Referring Neurology 11/20/19 documented as of this encounter
--- OUTSIDE RECORDS SUMMARY | 2024-07-25 02:15 | XMS_ITS ---
Author Organization [facility] Address [address] [facility] [place] [address] Care Team Providers Care Package Pick Up Name Role Phone Jose Roberto Cleary MD Unavailable Jose Roberto Cleary MD Primary Care Provider Farida Pride LPN Unavailable Unavailable Chronic Care Management (CCM) Status:Enrolled (Active) Start date:06/30/2022 Enrollment date:06/30/2022 Overview 01/31/24, 10:39 AM - ChhayamondayGLEN- Patient gives verbal consent to be enrolled in CCM Program and understands there could be a bill for this service. Case Team Name Relationship Phone Farida Pride LPN(Responsible Staff) Continued Care and Services Coordination
--- OUTSIDE RECORDS SUMMARY | 2024-07-25 02:15 | XMS_ITS | Encounter Summary ---
Author Organization [facility] Address [address] [facility] [place] [address] Care Team Providers Care Superintendent Pipelines Name Role Phone Jose Roberto Cleary MD Unavailable Jose Roberto Cleary MD Primary Care Provider [phone] Belen Barr RN Unavailable Farida Pride LPN Unavailable Unavailable Encounter Details Date Type Department Care Team (Late st Contact Info) Description 03/22/2024 Orders Only [facility] [address] [facility] [address] [place] [address] Jose Roberto Cleary MD [address] [facility] [address] [place], [place] [id number] Chronic kidney disease, stage 3a (CMS-HCC) Social History Tobacco Use Types Packs/Day Years [...] often do you attend chur ch or congregation services? 1 to 4 times [...] Recorded Patient Health Questionnaire-2 Score 0 01/17/2024 [facility] - [...] Diagnoses Diagnosis Chronic kidney disease, stage 3a (CMS-HCC) documented in this encounter Care Teams Superintendent Pipelines Relationship Specialty Start Date End Date Jose Roberto Cleary MD [address] [facility] [address] [place] [address] PCP - ACO Reach 07/07/22 Jose Roberto Cleary MD [address] [facility] [address] [place] [address] PCP - General Family Medicine 08/03/22 Belen Barr, RN Clinical Advocate Family Medicine 03/22/24 05/07/24 Farida Pride LPN 05/07/24 documented as of this encounter
[2024-07-25] MEDS: MORPHINE SULFATE 2 MG/ML SYRINGE IV (02:17)
[2024-07-25 02:28] LABS: Alanine Aminotransferase 18 U/L (14-59); Albumin Globulin Ratio 0.8; Albumin Level 3.3 g/dL (3.4-5.0); Alkaline Phosphatase 152 U/L (46-116); Anion Gap 14.2; Aspartate Amino Transferase 23 U/L (15-37); BUN Creatinine Ratio 16.3; Bilirubin Total 0.8 mg/dL (0.2-1.0); Calcium 9.7 mg/dL (8.5-10.1); Carbon Dioxide 28.4 mmol/L (21.0-32.0); Chloride 101 mmol/L (98-107); Estimated GFR (African America 52 (>=60 mL/min/1.73m^2); Estimated GFR (Non-African Ame 43 (>=60 mL/min/1.73m^2); Globulin 4.4 g/dL; Glucose 127 mg/dL (74-106); Potassium 3.6 mmol/L (3.5-5.1); Sodium 140 mmol/L (136-145); Total Protein 7.7 g/dL (6.4-8.2); Troponin I High Sensitivity 8.1 pg/mL (4.0-51.3)
[2024-07-25 02:29] LABS: INR 1.01; Prothrombin Time 10.7 sec (9.0-11.6)
[2024-07-25 02:36] LABS: D Dimer 9.41 mg/L FEU (<=0.59)
--- NOTE | 2024-07-25 02:46 | PC.NURSE ---
Pt states that her pain is down to a 9 from a 10. MD aware and new orders received to be administered prior to going to CT scan.
[2024-07-25] MEDS: HYDROMORPHONE HCL 0.5 MG/0.5 ML SYRINGE IV ×2 (02:48→05:45)
--- NOTE | 2024-07-25 03:43 | ED.ABDPAIN1 ---
HPI - Abdominal Pain General Chief Complaint: Abdominal Pain Stated Complaint: TROUBLE BREATHING Time Seen by Provider: 07/25/24 01:47 Source: patient Mode of arrival: Wheelchair History of Present Illness HPI narrative: The patient is 73-year-old female with history of coronary artery disease and multiple aortic aneurysm mostly infrarenal. The patient is coming to us with abdominal pain that according to her severe 10 out of 10 at the right upper quadrant as well as the right side of the chest that started almost 2 hours before arrival. There was no associated diarrhea or any other complaint the pain is fixed in the right upper quadrant as well as the right upper back the pain is not radiating The patient mentioned that the pain will get worse whenever she lay in her back, she did not have any similar pain before and she does not have any chronic back history, patient denies any exertion when the pain started she was just sitting when the pain started The patient mentioned that the pain gets worse whenever she take a deep breath she is not able to breathe fully because of the pain, it is right-sided in the right upper quadrant as well as the right posterior aspect of the chest wall and goes up to her neck, the patient looks distressed in pain on arrival Related Data Home Medications ?Medication ?Instructions ?Recorded ?Confirmed amlodipine 10 mg tablet 10 mg PO QDAY 12/20/22 07/25/24 cetirizine 10 mg tablet (24Hour 10 mg PO DAILY PRN allergy symptoms 12/20/22 07/25/24 Allergy) cyanocobalamin (vitamin B-12) PO DAILY 12/20/22 folic acid 1 mg tablet 1 mg PO DAILY 12/20/22 07/25/24 furosemide 20 mg tablet 20 mg PO DAILY 12/20/22 07/25/24 gabapentin 600 mg tablet 600 mg PO BID 12/20/22 07/25/24 levothyroxine 200 mcg tablet 200 mcg PO DAILY 12/20/22 07/25/24 omeprazole 40 mg capsule,delayed 40 mg PO DAILY 12/20/22 07/25/24 release red beet 250 mg-sour burt tab PO DAILY 12/20/22 extract 0.5 mg chewable tablet tramadol 50 mg tablet 100 mg PO Q12H PRN pain 12/20/22 07/25/24 alprazolam 1 mg tablet mg 07/25/24 amlodipine 5 mg tablet mg 07/25/24 spironolactone 25 mg tablet mg 07/25/24 Previous Rx's ?Medication ?Instructions ?Recorded dexamethasone 4 mg tablet 4 mg PO BID 5 days #10 tabs 05/06/23 Allergies Allergy/AdvReac Type Severity Reaction Status Date / Time ciprofloxacin (From Cipro HC) AdvReac Intermediate Verified 12/20/22 11:34 levofloxacin AdvReac Intermediate Verified 12/20/22 11:47 metronidazole (From Flagyl) AdvReac Intermediate Verified 12/20/22 11:34 vancomycin AdvReac Intermediate Verified 12/20/22 11:47 Review of Systems ROS Status of ROS 10 or more systems reviewed and unremarkable except as noted in history and below [facility] Social History Smoking status: Current every day smoker Little interest or pleasure in doing things: not at all Feeling down, depressed, or hopeless: not at all Exam Narrative Exam Narrative: Nurses notes and vital signs reviewed and patient is not hypoxic. General: Distressed in pain Skin: Warm, dry, no pallor noted. No rash. Head: Normocephalic, atraumatic. Neck: Supple, non-tender. Eye: Pupils are equal, round and EOMI. No scleral icterus. Ears, Nose, Mouth, and Throat: mucous membranes are dry Cardiovascular: Regular Rate and Rhythm without murmur, gallop or rub. Respiratory: No accessory muscle use or respiratory distress. Lungs are clear to auscultation, no wheezing, rales or rhonchi Chest Wall: Significant tenderness upon palpation of the posterior aspect of the chest wall as well as the right side of the chest wall at the intervertebral line there is no ecchymosis or any changes in the skin Back: No midline thoracic or lumbar vertebral tenderness. No CVA tenderness Musculoskeletal: normal ROM, no calf or popliteal tenderness, no lower extremity edema/swelling GI: Abdomen is soft, non-distended. Normal bowel sounds. No masses appreciated. Tenderness with superficial palpation of the right upper quadrant but there is no skin changes no rash Neurological: A&O x4. No cranial nerve dysfunction observed. Constitutional Vital Signs, click to edit/add: Last Vital Signs Temp 98.2 F 07/25/24 01:37 Pulse 80 07/25/24 04:31 Resp 17 07/25/24 04:31 BP 124/87 07/25/24 04:31 Pulse Ox 98 07/25/24 04:31 O2 Del Method Room Air 07/25/24 01:37 Course Vital Signs Vital signs: Vital Signs Temperature 98.2 F 07/25/24 01:37 Pulse Rate 65 07/25/24 01:37 Respiratory Rate 16 07/25/24 01:37 Blood Pressure 131/111 H 07/25/24 01:37 Pulse Oximetry 96 07/25/24 01:37 Oxygen Delivery Method Room Air 07/25/24 01:37 Temperature 98.2 F 07/25/24 01:37 Pulse Rate 80 07/25/24 04:31 Respiratory Rate 17 07/25/24 04:31 Blood Pressure 124/87 07/25/24 04:31 Pulse Oximetry 98 07/25/24 04:31 Oxygen Delivery Method Room Air 07/25/24 01:37 MDM - Abdominal Pain MDM Narrative Medical decision making narrative: Upon arrival the patient EKG was showing sinus tachycardia with a heart rate of [address] elevation or depression With the patient history of aneurysm especially that she had a CAT scan done almost few months ago that showed a significant size aneurysms, and with the fact that the patient was complaining of severe pain and being tachycardic there was a concern that her presentation could be secondary to the aneurysm having a leak or any bleeding related to that The patient pain though that comes whenever she take a deep breath also could be related to PE and that why the patient had a blood workup that showed an elevated D-dimer The patient does have a history of chronic kidney disease with a GFR above 40 and that with the fact that we are ruling out life-threatening diagnoses we did order the CAT scan with contrast to rule out PE as well as aneurysmal leakage or bleeding, the patient pain was not controlled easily initially with morphine did not help but Dilaudid did help initially. And it was noted when the patient received Dilaudid that her pulse ox dropped to 89% and she had to be on oxygen to make sure her saturation does not drop The patient then had a CAT scan angio of the chest and abdomen that shows multiple chronic pathology but no acute pathology The patient troponin was negative as well as her CBC there was no signs of infection or any pneumonia The patient pain being induced with palpation and the fact that we rule out the PE as well as dissection and acute coronary syndrome right now muscular pain or pleuritic pain could be the reason for the patient pain The patient pain was not easily controlled she did receive Dilaudid twice in the ER to control her pain I also provided her with a lidocaine patch and Solu-Medrol IV to cover for anti-inflammatory effect The patient lives by herself and right now adequate control of the pain still not yet achieved The patient be admitted for observation for pain and the case was discussed with she agreed with above-mentioned plan Lab Data Labs: Lab Results 07/25/24 07/25/24 Range/Units 02:00 04:36 WBC 11.0 (4.0-11.0) 10^3/uL RBC 5.01 (4.20-5.40) 10^6/uL Hgb 12.7 (12.0-16.0) g/dL Hct 39.7 (36.0-48.0) % MCV 79.2 L (81.0-99.0) fL MCH 25.3 L (26.7-34.0) pg MCHC 32.0 (29.9-35.2) g/dL RDW 17.3 H (11.0-15.0) % Plt Count 178 (150-450) 10^3/uL MPV 9.6 (9.5-13.5) fL Neut % (Auto) 78.5 H (43.0-75.0) % Lymph % (Auto) 12.3 L (20.5-60.0) % Sheridan % (Auto) 6.8 (1.7-12.0) % Eos % (Auto) 1.6 (0.9-7.0) % Baso % (Auto) 0.4 (0.2-2.0) % Neut # (Auto) 8.6 H (1.4-6.5) 10^3/uL Lymph # (Auto) 1.4 (1.2-3.8) 10^3/uL Sheridan # (Auto) 0.8 (0.3-0.8) 10^3/uL Eos # (Auto) 0.2 (0.0-0.7) 10^3/uL Baso # (Auto) 0.0 (0.0-0.1) 10^3/uL Abs Immat Gran (auto) 0.04 H (0.00-0.03) 10^3/uL Imm/Tot Granulo (auto) 0.4 (0.0-0.5) % PT 10.7 (9.0-11.6) sec INR 1.01 D-Dimer 9.41 H* (<=0.59) mg/L FEU Sodium 140 (136-145) mmol/L Potassium 3.6 (3.5-5.1) mmol/L Chloride 101 (98-107) mmol/L Carbon Dioxide 28.4 (21.0-32.0) mmol/L Anion Gap 14.2 BUN 20.0 H (7.0-18.0) mg/dL Creatinine 1.23 H (0.55-1.02) mg/dL Est GFR ( Amer) 52 L (>=60 mL/min/1.73m^2) Est GFR (Non-Af Amer) 43 L (>=60 mL/min/1.73m^2) BUN/Creatinine Ratio 16.3 Glucose 127 H (74-106) mg/dL Calcium 9.7 (8.5-10.1) mg/dL Total Bilirubin 0.8 (0.2-1.0) mg/dL AST 23 (15-37) U/L ALT 18 (14-59) U/L Alkaline Phosphatase 152 H (46-116) U/L Troponin I High Sens 8.1 8.2 (4.0-51.3) pg/mL Total Protein 7.7 (6.4-8.2) g/dL Albumin 3.3 L (3.4-5.0) g/dL Globulin 4.4 g/dL Albumin/Globulin Ratio 0.8 Blood Type O Positive Antibody Screen Negative Discharge Plan Discharge Chief Complaint: Abdominal Pain Clinical Impression: Chest pain, Abdominal pain, Intractable pain Patient Disposition: Admitted as Observation Time of Disposition Decision: 07:02
[2024-07-25 05:00] LABS: Troponin I High Sensitivity 8.2 pg/mL (4.0-51.3)
--- NOTE | 2024-07-25 05:07 | PC.NURSE ---
Retail Salesworker called Julee Beebe for the CT reading. Explained that Dr. Guaman spoke with one of the radiologists right after the CT was completed. She emphasized that we needed this read stat, but it was stated the CT had not yet been sent. Retail Salesworker confirmed that it indeed had been sent per XR tech. Continue to await reading. The staff member stated that they will get to it as soon as they can and hung up the phone.
[2024-07-25] MEDS: METHYLPREDNISOLONE SOD SUCC PF 40 MG/ML VIAL IVP ×3 (06:00→21:13)
[2024-07-25] MEDS: LIDOCAINE 5% PATCH 1 PATCH TOPICAL (06:04)
--- NOTE | 2024-07-25 06:35 | PC.NURSE ---
Frandy gonzalez attempted [address] De Luna thus far. No return call as of yet.
--- NOTE | 2024-07-25 08:00 | CA_ITS ---
Patient Name: DIANELYS WOMACK MR#: [id number] : 1950 Exam Date: 07/25/2024 Ordering Doctor: ARLETTE SALGADO . ECHOCARDIOGRAM REPORT PROCEDURE: CA ECHO DOPPLER COMPLETE INDICATIONS: chest pain, history of multiple aneurysms, smoker, hypertension COMPARISON: None. DESCRIPTION: COMPLETE ECHOCARDIOGRAM Real-time transthoracic echocardiography with 2D, M-mode, spectral and color flow Doppler performed. QUALITY: Technical quality was good. LEFT VENTRICLE: Normal chamber size. Mild concentric left ventricular hypertrophy. Normal systolic function. LV EF: Normal left ventricular ejection fraction, (55-60%). DIASTOLIC: Diastolic function is indeterminate. ATRIAL SEPTUM: LEFT ATRIUM: Normal chamber size. RIGHT ATRIUM: Normal chamber size. RIGHT VENTRICLE: Normal chamber size. Normal systolic function. TRICUSPID VALVE: Normal mobility and thickness. No stenosis with no regurgitation. Unable to assess right-sided pressures due to lack of measurable tricuspid regurgitation. MITRAL VALVE: Normal mobility and thickness. No evidence of mitral valve stenosis. Mild mitral annular calcification. No mitral regurgitation. AORTIC VALVE: Normal trileaflet appearance. Thickened aortic valve. Normal leaflet mobility. No evidence of aortic valve stenosis. No aortic regurgitation. AORTIC ROOT: Normal diameter and appearance, measuring 3.3 cm. PULMONIC VALVE: Normal thickness and mobility. No stenosis. No regurgitation. PERICARDIUM: No evidence of pericardial effusion. IVC: Not well visualized. PLEURA: CONCLUSION: 1. Mild concentric left ventricular hypertrophy with normal systolic function. LVEF is estimated at 55 to 60%. 2. Normal right ventricular size and systolic function. 3. No significant valvular dysfunction. 4. Unable to assess right-sided pressures due to lack of measurable tricuspid regurgitation. 5. No pericardial effusion. Adult Echocardiography Procedure Report Left Ventricle LVEDD (3.7 - 5.6 cm): 3.81 cm LVESD (2.2 - 4.0 cm): 2.44 cm LVIVS thickness (0.6 - 1.2 cm): 1.38 cm LVPW thickness (0.5 - 1.0 cm): 1.16 cm e': 0.06 m/s E - e': 7.76 LVOT Max Gradient: 5.07 mm[Hg] LVOT Area (cm2): 1.13 m/s Peak Velocity (LVOT): 1.13 m/s Mean Velocity (LVOT): 0.67 m/s LVOT Diameter 1.97 cm Left Atrium LA Volume Index (2D A2C): 25.92 ml/m2 Left Atrium Systolic Dimension: 3.50 cm Mitral Valve MV E to A Ratio: 0.60 Mitral Valve A-Wave Peak Velocity: 0.79 m/s Mitral Valve E-Wave Peak Velocity: 0.47 m/s Right Ventricle Aorta AO Root Diam: 3.34 cm Aortic Valve AoV Area (Peak Tyrel): 2.78 cm2, 2.78 cm2 AoV Area (VTI): 2.91 cm2, 2.91 cm2 Peak Velocity(Antegrade Flow): 1.23 m/s Peak Gradient(Antegrade Flow): 6.04 mm[Hg] Mean Velocity(Antegrade Flow): 0.85 m/s Mean Gradient(Antegrade Flow): 3.27 mm[Hg] Velocity Time Integral: 22.37 cm Tricuspid Valve Pulmonic Valve Peak Gradient: 2.92 mm[Hg], 4.69 mm[Hg] Right Atrium Right Atrium Systolic Pressure: 30.75 ml, 30.75 ml Dictated by: Tu Gardiner M.D. on 07/25/2024 at 18:05 Approved by: Tu Gardiner M.D. on 07/25/2024 at 18:08
--- NOTE | 2024-07-25 08:07 | PM.HP ---
HPI H&P: HPI History of Present Illness Chief complaint: TROUBLE BREATHING INTRACTABLE CHEST PAIN Narrative: Patient is a 73 y.o white female with past medical history of HTN, HLD, hypothyroidism, GERD, Anxiety, chronic back pain, smoker and history of several Aneurysms including infrarenal (4.6cm) and right common iliac (3.0 cm). Patient presented to the ER last night with complaints of severe chest pain, 11/22. Pain came on suddenly after she ate a [place] making it difficult for patient to take deep breath in. She tried TUMS, omeprazole and Gas-X without relief. She denies any recent illness, any shortness of breath prior, and no n/v/d. She does state she fell about a week ago but no rib pain after fall. Her pain is described as right sided and radiating into the right side of back up the neck. Pain hurts worse with breathing. 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 Other ER findings: Trop 8.1-8.2, WBC's 11, Hb 12.7 , plt 178, AST 23, ALT 18, Alk phos 152. Patient was Given Dilaudid, Morphine, Lidocaine patch and IV Solumedrol and admitted for further work up. Dilaudid helped with pain but dropped her oxygen saturations so she was placed on 2L via NC. Lidoderm patches placed which also helped. The severity of the pain has improved. She is resting comfortably in the chair. Pain is reproducible when pushing. Nursing also noted when she had large belch she felt better. Discussed normal lab findings and CTA with patient. She is scheduled to see a new cardiology teacher at the [facility] in November. Dr. Esquivel. Opioid HPI Opioid Management Most Recent Pain and Opioid Data: Last Pain Scale 3 Today, 10:24 Last Pain Assessment Today, 08:00 Last MAR Pain Assessment Today, 02:17 Last ORT Total Score 1 Today, 07:47 Last ORT Risk Category Low Risk Today, 07:47 Review of Systems ROS Narrative ROS: a complete review of systems were reviewed with patient and are positive as below or listed in History of Chief Complaint. General: no fever, chills, night sweats Head: no headache, trauma, visual changes, nausea or vomiting Skin: no reported rashes, itching or sores Eyes: no blurriness of vision Ears: no reported hearing loss, vertigo, earache, or tinnitus Throat: no sore throat, hoarseness, swelling of neck, or tongue pain Heart: chest pain Lungs: no shortness of breath or cough GI: no diarrhea or vomiting/nausea Urinary: no urinary urgency, frequency or pain Neuro: no numbness or tingling HEM: no bleeding issues or bruising ENDO: thyroid problems Psych:anxiety and depression PFSH [facility] Medical History (Updated 07/25/24 @ 08:18 by Meme De Luna DO) Anxiety ?F41.9 - Anxiety disorder, unspecified (ICD-10) Hypothyroidism (acquired) ?E03.9 - Hypothyroidism, unspecified (ICD-10) Hyperlipidemia ?E78.5 - Hyperlipidemia, unspecified (ICD-10) Primary hypertension ?I10 - Essential (primary) hypertension (ICD-10) Infrarenal abdominal aortic aneurysm, without rupture ?I71.43 - Infrarenal abdominal aortic aneurysm, without rupture (ICD-10) Reflux esophagitis ?K21.00 - Gastro-esophageal reflux disease with esophagitis, without bleeding (ICD-10) CHF (congestive heart failure) ?I50.9 - Heart failure, unspecified (ICD-10) Iliac artery aneurysm ?I72.3 - Aneurysm of iliac artery (ICD-10) Surgical History (Updated 07/25/24 @ 09:04 by Radha Ornelas) History of appendectomy ?Z90.49 - Acquired absence of other specified parts of digestive tract (ICD-10) S/P lens implant ?Z96.1 - Presence of intraocular lens (ICD-10) History of hysterectomy ?Z90.710 - Acquired absence of both cervix and uterus (ICD-10) History of cholecystectomy ?Z90.49 - Acquired absence of other specified parts of digestive tract (ICD-10) Social History (Reviewed 07/25/24 @ 08:15 by ELBERT Javed Smoking status: Current every day smoker Highest level of school completed/degree received: high school graduate Little interest or pleasure in doing things: not at all Feeling down, depressed, or hopeless: not at all Meds Home Medications and Allergies Home Medications ?Medication ?Instructions ?Recorded ?Confirmed ?Type cetirizine 10 mg tablet (24Hour 10 mg PO DAILY PRN allergy symptoms 12/20/22 07/25/24 History Allergy) folic acid 1 mg tablet 1 mg PO DAILY 12/20/22 07/25/24 History furosemide 20 mg tablet 20 mg PO DAILY 12/20/22 07/25/24 History gabapentin 600 mg tablet 600 mg PO BID 12/20/22 07/25/24 History levothyroxine 200 mcg tablet 200 mcg PO .5XAWEEK 12/20/22 07/25/24 History omeprazole 40 mg capsule,delayed 40 mg PO DAILY 12/20/22 07/25/24 History release red beet 250 mg-sour burt 2 tab PO DAILY 12/20/22 07/25/24 History extract 0.5 mg chewable tablet tramadol 50 mg tablet 100 mg PO Q6H PRN pain, moderate 12/20/22 07/25/24 History alprazolam 1 mg tablet 1 mg PO BID PRN anxiety 07/25/24 07/25/24 History amlodipine 5 mg tablet 5 mg PO DAILY 07/25/24 07/25/24 History cyanocobalamin (vitamin B-12) 1,000 mcg PO DAILY 07/25/24 07/25/24 History 1,000 mcg tablet levothyroxine 200 mcg tablet 100 mcg PO SUSA 07/25/24 07/25/24 History (Synthroid) spironolactone 25 mg tablet 25 mg PO DAILY 07/25/24 07/25/24 History Allergies Allergy/AdvReac Type Severity Reaction Status Date / Time ciprofloxacin (From Cipro HC) AdvReac Intermediate Verified 12/20/22 11:34 levofloxacin AdvReac Intermediate Verified 12/20/22 11:47 metronidazole (From Flagyl) AdvReac Intermediate Verified 12/20/22 11:34 vancomycin AdvReac Intermediate Verified 12/20/22 11:47 Exam Narrative Exam Narrative: General: Patient is alert, and oriented to person, place and time with normal affect, proper hygiene, appears in no acute distress Skin: no visible rashes, or ulcers to the right trunk area Head: atraumatic, acephalic Eyes: PERRLA, no nystagmus present, conjunctiva clear, no scleral icterus Ears: normal gross auditory acuity Heart: Normal rate and rhythm, no murmurs/rubs/gallops Lungs: no audible wheezes, crackles and normal breath sounds all lung scott Abdomen: Normal audible bowel sounds, no distension, No palpable masses, no organomegaly, no rebound/guarding/ or rigidity Musculoskeletal: no swelling bilateral lower extremities Neuro: CN II-X grossly intact Constitutional Vital Signs, click to edit/add: Last Vital Signs Temp 98.2 F 07/25/24 01:37 Pulse 80 07/25/24 04:31 Resp 17 07/25/24 04:31 BP 124/87 07/25/24 04:31 Pulse Ox 98 07/25/24 04:31 O2 Del Method Room Air 07/25/24 01:37 Results Labs Labs: Short CBC 07/25/24 Range/Units 02:00 WBC 11.0 (4.0-11.0) 10^3/uL Hgb 12.7 (12.0-16.0) g/dL Hct 39.7 (36.0-48.0) % Plt Count 178 (150-450) 10^3/uL BMP 07/25/24 02:00 Sodium 140 Potassium 3.6 Chloride 101 Carbon Dioxide 28.4 BUN 20.0 H Creatinine 1.23 H Glucose 127 H Calcium 9.7 Liver Function 07/25/24 Range/Units 02:00 Total Bilirubin 0.8 (0.2-1.0) mg/dL AST 23 (15-37) U/L ALT 18 (14-59) U/L Alkaline Phosphatase 152 H (46-116) U/L Albumin 3.3 L (3.4-5.0) g/dL Assessment and Plan Assessment and Plan (1) Chest pain: Assessment and Plan: Check Echo today, trops negative continue to trend, proBNP negative, reviewed CTA; symptoms sound like GERD or esophageal spasm; continue IV Protonix, small hiatal hernia seen on CTA and pain occurred after eating; also with recent fall, will get rib xr series; Solumedrol for pain for this, lidoderm patches. Continue telemetry. Qualifiers: Chest pain type: chest pain on breathing Qualified Code(s): R07.1 - Chest pain on breathing (2) Infrarenal abdominal aortic aneurysm, without rupture: Assessment and Plan: CTA shows stability with no acute findings. This was reviewed with patient. She has new patient appointment scheduled for November with new Vascular/cards doctor at [facility] (3) Iliac artery aneurysm: Assessment and Plan: see #1 (4) Primary hypertension: Assessment and Plan: blood pressure stable, continue amlodipine, lasix, spironolactone (5) Hyperlipidemia: Assessment and Plan: check lipid panel Qualifiers: Hyperlipidemia type: unspecified Qualified Code(s): E78.5 - Hyperlipidemia, unspecified (6) Hypothyroidism (acquired): Assessment and Plan: chech TSH, continue levothyroxine (7) Anxiety: Assessment and Plan: resume home xanax Plan patient is a full code continue Compression stockings Patient is observation status and is not expected to cross 2 midnights
[2024-07-25 08:41] LABS: Chol HDL Ratio 2.9; Cholesterol 170 mg/dL (<=200); HDL Cholesterol 59 mg/dL (40-60); LDL Cholesterol Calculated 93.8 mg/dL; Thyroid Stimulating Hormone 2.742 uIU/mL (0.358-3.740); Triglycerides 86 mg/dL (<=150); VLDL CHOLESTEROL 17.2 mg/dL
[2024-07-25] MEDS: PANTOPRAZOLE SODIUM 40 MG VIAL IV ×2 (09:56→21:13)
[2024-07-25] MEDS: FOLIC ACID 1 MG TABLET PO (09:56)
[2024-07-25] MEDS: AMLODIPINE BESYLATE 5 MG TABLET PO (09:56)
[2024-07-25] MEDS: FUROSEMIDE 20 MG TABLET PO (09:56)
[2024-07-25] MEDS: SPIRONOLACTONE 25 MG TABLET PO (09:58)
[2024-07-25] MEDS: GABAPENTIN 300 MG CAPSULE 600 MG PO ×2 (09:58→21:13)
--- NOTE | 2024-07-25 10:29 | SWNOTE1 ---
KAI and I met with pt in room. Pt is independent at home, she lives alone. Pt uses a cane. She still drives. Pt did mention grandchildren and visiting them often and her daughter lives nearby. Pt is on 2 liters oxygen right now but does not wear home oxygen. Pt does not have any concerns about discharge at this time. KAI reviewed OT notes and no services recommended at this time.
--- NOTE | 2024-07-25 10:30 | SWNOTE1 ---
Medicare Outpatient Observation Notice reviewed and discussed with patient. Pt. verbalized understanding and signed the form. Original given to patient and copy placed in patient?s chart.
--- NOTE | 2024-07-25 10:43 | XR_ITS ---
The [address] [address] Patient Name: DIANELYS WOMACK MRN: [id number] date: 1950 Sex: F Assigned Patient Location: Current Patient Location: Accession/Order Number: [id number] Exam Date: 07/25/2024 11:45 Report Date: 07/25/2024 11:56 At the request of: ARLETTE SALGADO DO Procedure: XR ribs RT 2V PA CHEST WITH RIGHT RIBS: CLINICAL HISTORY: rib pain right side, s/p fall one week ago COMPARISON: Chest x-rays 05/06/2023 and 07/25/[address] 07/25/2024 The chest film shows borderline cardiomegaly and aortic ectasia. There is minor basilar atelectasis and/or scarring, greater on the right. There is no developing consolidation, sizable effusion or pneumothorax. The bony structures are osteopenic. Slight reverse S-shaped thoracolumbar scoliotic curvature is seen is seen. AP and both oblique views of the right ribs show no obvious acute displaced fractures or bony destruction within limits of the osteopenia. XR/XR ribs RT 2V IMPRESSION: BORDERLINE CARDIOMEGALY AND AORTIC ECTASIA. MINIMAL BASILAR ATELECTASIS AND/OR SCARRING. NO DEFINITE ACUTE RIB FINDINGS. Impression dictated by: rEica Tony M.D. 07/25/2024 11:56 AM Dictation Location: [place] [address] Electronically authenticated by: [id number] Y Date: 07/25/2024 11:56
--- NOTE | 2024-07-25 11:24 | CM.NOTE ---
Rounds made with Dr. De Luna. Dr. De Luna reviews findings with Rebeca and plan of care. Rebeca verbalizes understanding.
[2024-07-25 12:13] LABS: Troponin I High Sensitivity 6.2 pg/mL (4.0-51.3)
[2024-07-25] MEDS: LEVOTHYROXINE SODIUM 100 MCG TABLET 200 MCG PO (12:23)
--- NOTE | 2024-07-25 15:04 | SWNOTE1 ---
SW reviewed PT/OT notes. PT did recommend HH services. SW stopped back in pt's room two times, but pt was sleeping/snoring both times. SW to stop back in later today or tomorrow.
[2024-07-25 15:17] LABS: Estimated Average Glucose 117 mg/dL; Glycohemoglobin A1C 5.7 % (4.5-6.2)
[2024-07-25] MEDS: ALPRAZOLAM 1 MG TABLET PO (21:16)
[2024-07-26] VITALS (8 sets, daily range): BP systolic 126–151; BP diastolic 80–88; PULSE 58–72; TEMP 36.5–36.6; O2SAT 93–95
[2024-07-26] MEDS: LEVOTHYROXINE SODIUM 100 MCG TABLET 200 MCG PO (05:38)
[2024-07-26] MEDS: METHYLPREDNISOLONE SOD SUCC PF 40 MG/ML VIAL IVP (05:38)
[2024-07-26 05:54] LABS: Hematocrit 37.5 % (36.0-48.0); Mean Corpuscular Hemoglobin 25.4 pg (26.7-34.0); Mean Corpuscular Volume 79.4 fL (81.0-99.0); Platelet Count 183 10^3/uL (150-450); Red Blood Count 4.72 10^6/uL (4.20-5.40); Red Cell Distribution Width 17.2 % (11.0-15.0); White Blood Count 10.1 10^3/uL (4.0-11.0)
[2024-07-26 06:06] LABS: Alanine Aminotransferase 19 U/L (14-59); Albumin Globulin Ratio 0.6; Albumin Level 2.8 g/dL (3.4-5.0); Alkaline Phosphatase 135 U/L (46-116); Anion Gap 12.6; Aspartate Amino Transferase 18 U/L (15-37); BUN Creatinine Ratio 22.9; Bilirubin Total 0.3 mg/dL (0.2-1.0); Calcium 9.4 mg/dL (8.5-10.1); Carbon Dioxide 28.4 mmol/L (21.0-32.0); Chloride 101 mmol/L (98-107); Estimated GFR (African America 45 (>=60 mL/min/1.73m^2); Estimated GFR (Non-African Ame 37 (>=60 mL/min/1.73m^2); Globulin 4.4 g/dL; Glucose 139 mg/dL (74-106); Sodium 138 mmol/L (136-145); Total Protein 7.2 g/dL (6.4-8.2)
[2024-07-26 06:12] LABS: Segmented Neut Absolute Manual 9.39 10^3/uL (1.4-6.5)
--- NOTE | 2024-07-26 07:59 | PM.DS1 ---
DS: Providers Provider Date of admission: 07/25/24 07:40 Primary care physician: MONIKA LEHMAN Attending physician on admission: Meme De Luna Consults: 07/25/24 08:00 Occupational Therapy Eval and Treat Routine Reason for consultation: weakness and pain Has provider been notified: No Physical Therapy Eval and Treat Routine Reason for consultation: weakness and pain Has provider been notified: No Discharging clinician: Meme De Luna DS: Diagnosis Discharge Diagnosis (1) Chest pain: Qualifiers: Chest pain type: chest pain on breathing Qualified Code(s): R07.1 - Chest pain on breathing (2) Infrarenal abdominal aortic aneurysm, without rupture: (3) Iliac artery aneurysm: (4) Primary hypertension: (5) Hyperlipidemia: Qualifiers: Hyperlipidemia type: unspecified Qualified Code(s): E78.5 - Hyperlipidemia, unspecified (6) Hypothyroidism (acquired): (7) Anxiety: DS: Summary Hospital Course Hospital Course: Patient is a 73 y.o white female with past medical history of HTN, HLD, hypothyroidism, GERD, Anxiety, chronic back pain, smoker and history of several Aneurysms including infrarenal (4.6cm) and right common iliac (3.0 cm). Patient presented to the ER yesterday with complaints of severe chest pain, 11/22. Pain came on suddenly after she ate [employer] making it difficult for patient to take deep breath in. She tried TUMS, omeprazole and Gas-X without relief. She denies any recent illness, any shortness of breath prior, and no n/v/d. She does state she fell about a week ago but no rib pain after fall. Her pain is described as right sided and radiating into the right side of back up the neck. Pain hurts worse with breathing. Given patient's aneurysm history and D-dimer elevation, patient underwent CTA of the chest which showed: ectatic ascending aorta 3.9cm in diameter, upper abdominal aorta with infrarenal AA measuring 4.2cm (was 4.6 cm on previous study), right common iliac aneurysm measuring 3.1cm (prior was 3.0cm), no dissection or retroperineal hemorrhage, enlarged heart, no PE, small hiatal hernia, mild sigmoid diverticulosis, prior hysterectomy and prior cholecystectomy, small umbilical fat hernia. Other findings: Trop 8.1-8.2-6.2, WBC's 11, Hb 12.7 , plt 178, AST 23, ALT 18, Alk phos 152, ProBNP Normal. Patient was Given Dilaudid, Morphine, Lidocaine patch and IV Solumedrol and admitted for further work up. Dilaudid helped with pain but dropped her oxygen saturations so she was placed on 2L via NC which she was able to be weaned off yesterday and she has been saturating well on room air. Lidoderm patches placed which also helped, discussed with patient she is able to get these OTC to apply. The severity of the pain has improved and has almost fully resolved. Patient did well with PT and OT. Rib series on the right was negative for fractures. Echocardiogram showed EF 55-60% with some LVH otherwise normal echo. She is resting comfortably in the bed today. Pain is reproducible when pushing and discussed alot of diagnosis has been ruled out. Most likely is musculoskeletal pain. She is scheduled to see a new paint brush maker at the [facility] in November. Dr. Esquivel and is encouraged to keep this appointment, Will also have close outpatient follow up with PCP. She may return to ER with any worsening signs or symptoms. I attempted to call her daughter Renetta today but was unsuccessful with the cell phone number listed. Status at Discharge Functional status at discharge: independent ambulation Overall status at discharge: patient is back to baseline Time Spent with Patient Time attestation: Total time spent providing and/or coordinating discharge services: Time spent: greater than 30 minutes Exam Narrative Exam Narrative: General: Patient is alert, and oriented to person, place and time with normal affect, proper hygiene, appears in no acute distress Skin: no visible rashes, or ulcers to the right trunk area Head: atraumatic, acephalic Eyes: PERRLA, no nystagmus present, conjunctiva clear, no scleral icterus Ears: normal gross auditory acuity Heart: Normal rate and rhythm, no murmurs/rubs/gallops Lungs: no audible wheezes, crackles and normal breath sounds all lung scott Abdomen: Normal audible bowel sounds, no distension, No palpable masses, no organomegaly, no rebound/guarding/ or rigidity Musculoskeletal: no swelling bilateral lower extremities, pain is reproducible and palpated in the right trapezius and intercostal muscles of ribs 7-12, no rashes or bruising present, no deformities palpated Neuro: CN II-X grossly intact Constitutional Vital Signs, click to edit/add: Last Vital Signs Temp 97.8 F 07/26/24 04:00 Pulse 58 L 07/26/24 05:58 Resp 18 07/26/24 04:00 BP 151/88 H 07/26/24 04:00 Pulse Ox 93 L 07/26/24 04:00 O2 Del Method Room Air 07/26/24 04:00 O2 Flow Rate 2 07/25/24 23:32 DS: Data Data Completed and Pending Labs on day of discharge: Labs from last 24 hours 07/26/24 07/25/24 07/25/24 05:14 11:48 04:36 WBC 10.1 RBC 4.72 Hgb 12.0 Hct 37.5 MCV 79.4 L MCH 25.4 L MCHC 32.0 RDW 17.2 H Plt Count 183 MPV 10.0 Seg Neuts % (Manual) 93.0 H Lymphocytes % (Manual) 4.0 L Monocytes % (Manual) 3.0 Eosinophils % (Manual) 0.0 L Basophils % (Manual) 0.0 L Neutrophils # (Manual) 9.39 H Lymphocytes # (Manual) 0.40 L Monocytes # (Manual) 0.30 Eosinophils # (Manual) 0.00 Basophils # (Manual) 0.00 Sodium 138 Potassium 4.0 Chloride 101 Carbon Dioxide 28.4 Anion Gap 12.6 BUN 32.0 H Creatinine 1.40 H Est GFR ( Amer) 45 L Est GFR (Non-Af Amer) 37 L BUN/Creatinine Ratio 22.9 Glucose 139 H Estimat Average Glucose 117 Hemoglobin A1c 5.7 Calcium 9.4 Total Bilirubin 0.3 AST 18 ALT 19 Alkaline Phosphatase 135 H Troponin I High Sens 6.2 NT-Pro-B Natriuret Pep 116.0 Total Protein 7.2 Albumin 2.8 L Globulin 4.4 Albumin/Globulin Ratio 0.6 Triglycerides 86 Cholesterol 170 LDL Cholesterol, Calc 93.8 VLDL Cholesterol 17.2 HDL Cholesterol 59 Cholesterol/HDL Ratio 2.9 TSH 2.742 Discharge Plan Discharge Disposition: Home, Self-Care Discharge Medications: Continued alprazolam 1 mg tablet 1 mg PO BID PRN (Reason: anxiety) amlodipine 5 mg tablet 5 mg PO DAILY spironolactone 25 mg tablet 25 mg PO DAILY cyanocobalamin (vitamin B-12) 1,000 mcg tablet 1,000 mcg PO DAILY levothyroxine [Synthroid] 200 mcg tablet 100 mcg PO SUSA Rx Instructions: MONDAY AND MONDAY ONLY furosemide 20 mg tablet 20 mg PO DAILY gabapentin 600 mg tablet 600 mg PO BID levothyroxine 200 mcg tablet 200 mcg PO .5XAWEEK Patient Comments: monday through monday only omeprazole 40 mg capsule,delayed release(DR/EC) 40 mg PO DAILY tramadol 50 mg tablet 100 mg PO Q6H PRN (Reason: pain, moderate) cetirizine [24Hour Allergy] 10 mg tablet 10 mg PO DAILY PRN (Reason: allergy symptoms) folic acid 1 mg tablet 1 mg PO DAILY red beet-sour burt extract 250-0.5 mg tablet,chewable 2 tab PO DAILY Patient Comments: beet chews 1-2 a day Activity: increase activity as tolerated Activity Detail: May get Lidoderm patches OTC to apply, may alternate ice and heat compresses to area of pain Diet: advance to your usual diet Print Language: Khmer Forms: Portal Instructions Follow Up Appointments: July 31 @ 1:30pm with Renetta Gallagher NP [phone] Keep follow up appointment with [facility] Cardiology, Dr. Esquivel in November as scheduled
[2024-07-26] MEDS: GABAPENTIN 300 MG CAPSULE 600 MG PO (08:09)
[2024-07-26] MEDS: SPIRONOLACTONE 25 MG TABLET PO (08:10)
[2024-07-26] MEDS: AMLODIPINE BESYLATE 5 MG TABLET PO (08:10)
[2024-07-26] MEDS: PANTOPRAZOLE SODIUM 40 MG VIAL IV (08:10)
[2024-07-26] MEDS: FOLIC ACID 1 MG TABLET PO (08:10)
[2024-07-26] MEDS: FUROSEMIDE 20 MG TABLET PO (08:10)
--- NOTE | 2024-07-26 08:15 | CM.NOTE ---
Rounds made with Dr. De Luna, pt will discharge to home. SW will see pt prior to discharge for discharge planning.
--- NOTE | 2024-07-26 09:04 | SWNOTE1 ---
SW stopped back in and spoke with pt about home health being set up. Pt voiced she does not feel like she needs home health at this time. Pt feels like she is doing well and is active at home. Pt voiced she just needs to figure out her neuropathy, but she will continue to talk to her PCP about this. SW advised pt that if she gets home and decides she wants it, her PCP can set home health up.
--- NOTE | 2024-07-26 11:02 | PT.DAILY ---
Physical Therapy Daily Note PT Daily Note/Assess Start: 07/26/24 10:59 Freq: Status: Active Protocol: Document 07/26/24 10:59 JUAN R (Rec: 07/26/24 11:02 JUAN R [id number]) Physical Therapy Daily Note/Assessment Time In/Time Out Time In 10:30 Time Out 10:40 Pain In Pain N/A Pain Out Pain N/A Subjective Subjective Pt supine upon arrival. Slept good last night .Agrees to PT this morning. Planned dc today, home. Therapeutic Exercise Time Therapeutic Exercise 3 Minutes (minutes) Therapeutic Exercise 0 Units Therapeutic Exercise Treatment Therapeutic Exercise Seated bilat LE strengthening ex complete while sitting Treatment EOB unsupported without LOB Therapeutic Activity Time Therapeutic Activity 7 Minutes (minutes) Therapeutic Activity 1 Units Therapeutic Activity Treatment Bed Mobility Ability Independent Chair Transfer Standby Assistance Ability Therapeutic Activity Supine>sit IND. Sit>stand SBA for safety. Pt amb 120' Comments with RFID SYSTEMS ARCHITECT on hallway handrail. Pt is occ unsteady but no real LOB. Decreased charleen noticed. Pt returned to room in BS chair - daughter calls and is coming to pick her up soon. Planned dc to home. Call light is within reach and nursing notified she's in her chair. Total Physical Therapy Time Total Therapy 10 Minutes Total Physical 1 Therapy Units Summary Daily Note Summary Improved gait endurance. Min unsteadiness noticed.
--- NOTE | 2024-07-26 11:02 | PT.DAILY ---
Physical Therapy Daily Note PT Daily Note/Assess Start: 07/26/24 10:59 Freq: Status: Active Protocol: Document 07/26/24 10:59 JUAN R (Rec: 07/26/24 11:02 JUAN R [id number]) Physical Therapy Daily Note/Assessment Time In/Time Out Time In 10:30 Time Out 10:40 Pain In Pain N/A Pain Out Pain N/A Subjective Subjective Pt supine upon arrival. Slept good last night .Agrees to PT this morning. Planned dc today, home. Therapeutic Exercise Time Therapeutic Exercise 3 Minutes (minutes) Therapeutic Exercise 0 Units Therapeutic Exercise Treatment Therapeutic Exercise Seated bilat LE strengthening ex complete while sitting Treatment EOB unsupported without LOB Therapeutic Activity Time Therapeutic Activity 7 Minutes (minutes) Therapeutic Activity 1 Units Therapeutic Activity Treatment Bed Mobility Ability Independent Chair Transfer Standby Assistance Ability Therapeutic Activity Supine>sit IND. Sit>stand SBA for safety. Pt amb 120' Comments with PATTERN REPAIR PERSON on hallway handrail. Pt is occ unsteady but no real LOB. Decreased charleen noticed. Pt returned to room in BS chair - daughter calls and is coming to pick her up soon. Planned dc to home. Call light is within reach and nursing notified she's in her chair. Total Physical Therapy Time Total Therapy 10 Minutes Total Physical 1 Therapy Units Summary Daily Note Summary Improved gait endurance. Min unsteadiness noticed. Edit Result 07/26/24 10:59 JUAN R (Rec: 07/26/24 11:02 JUAN R [id number]) Physical Therapy Daily Note/Assessment Summary Daily Note Summary Improved gait endurance. Min unsteadiness noticed. Would be a good candidate for OP PT to improve strength and balance.
--- NOTE | 2024-07-29 14:47 | CM.DCFOLLOWU ---
Person spoke with: Rebeca How are you feeling? Much better How is your pain? Still some pain in my back, Im going to chiropractor Did you understand your discharge instructions? Yes Do you have any questions about your discharge instructions? No Were you given any prescriptions at discharge? No Were you able to get your prescriptions filled? N/A Do you understand how to take your medications as ordered? Yes Do you have any questions about your follow up appointment and do you plan to keep your follow up appointment? No questions and I plan on keeping appt's Is there anything else that you would like to discuss? No Questions/Comments/Concerns/Other:
== END 2024-07-26 11:21 | disposition home or self-care (01) ==
LOC: ER 06:53 → MS 07:45
PROVIDERS: Admitting Provider Family Medicine; Emergency Provider Emergency Medicine; PCP Family Medicine; Visit Provider Family Medicine
DX: R07.1 Chest pain on breathing (principal); R10.11 Right upper quadrant pain; I71.43 Infrarenal abdominal aortic aneurysm, without rupture; R07.9 Chest pain, unspecified; I10 Essential (primary) hypertension; E78.5 Hyperlipidemia, unspecified; E03.9 Hypothyroidism, unspecified; K21.9 Gastro-esophageal reflux disease without esophagitis; F41.9 Anxiety disorder, unspecified; F17.200 Nicotine dependence, unspecified, uncomplicated; R79.89 Other specified abnormal findings of blood chemistry; I72.3 Aneurysm of iliac artery; K44.9 Diaphragmatic hernia without obstruction or gangrene; K57.90 Diverticulosis of intestine, part unspecified, without perforation or abscess without bleeding; Z90.710 Acquired absence of both cervix and uterus; Z90.49 Acquired absence of other specified parts of digestive tract; K42.9 Umbilical hernia without obstruction or gangrene; Z91.81 History of falling
CPT/HCPCS: 36415; 71045; 71100; 71275; 74174; 80053; 80061; 83036; 83880; 84443; 84484; 85007; 85025; 85027; 85378; 85610; 86850; 86900; 86901; 93005; 93306; 94667; 94668; 94761; 96374; 96375; 96376; 97161; 97165; 97530; 97535; 99285; G0378; J1171; J2270; J2919; Q9967